=== PATIENT | female | born 1955 | race Caucasian/White ===

== ENCOUNTER → 2017-11-10 12:39 | Outpatient (CLI) | payer BC, SELFPAY ==
[2017-11-10 14:23] LABS: Absolute Lymphocyte Count 1.32 X10^3/ul (0.83-4.51); Absolute Neutrophil Count 3.7 X10^3/uL (2.0-7.7); Basophil# 0.03 X10^3/uL; Basophil% 0.5 % (0-1); Eosinophil# 0.12 X10^3/uL; Eosinophils% 2.1 % (0-5); Hematocrit 41.2 % (37-47); Hemoglobin 13.3 g/dl (12.0-15.0); Lymphocyte # 1.32 X10^3/ul (4.0); Lymphocyte % 22.8 % (19-41); Mean Corp Hgb Conc 32.3 g/gl (32-36); Mean Corpuscular Hgb 29.7 pg (27.0-32.0); Mean Platelet Vol. 9.1 fl (6.2-12.0); Monocyte# 0.59 X10^3/uL; Monocyte% 10.2 % (0-10); Neutrophil # 3.71 X10^3/uL (2.7-7.7); Neutrophil % 64.2 % (47-70); Platelet Count 261 K/mm3 (150-450); RBC Distribution Width CV 14.1 % (11.6-14.6); RBC Distribution Width SD 46.6 fl (35.1-43.9); Red Blood Count 4.48 M/mm3 (4.2-5.4); White Blood Count 5.8 K/mm3 (4.4-11.0)
[2017-11-10 14:24] LABS: POSITIVE COUNT NO; POSITIVE DIFFERENTIAL NO; POSITIVE MORPHOLOGY NO
[2017-11-10 14:50] LABS: ALB/GLOB Ratio 1.1 RATIO (0.9-2.4); AST(SGOT) 15 U/L (15-37); Alanine Aminotransfer ALT/SGPT 23 U/L (13-56); Alkaline Phosphatase 78 U/L (45-117); Anion Gap 7 (5-15); BUN 11 mg/dL (7-18); BUN/Creat Ratio 12.9 RATIO (10-20); Calcium,Total 8.6 mg/dL (8.5-10.1); Chloride 105 mmol/L (98-107); Creatinine, Serum 0.86 mg/dL (0.55-1.02); EST Glomerular Filtration Rate 71 mL/min (>60); Est Glom Filt Rate - Afr Amer 86 mL/min (>60); Globulin 3.6 g/dL (2.2-4.2); Glucose 90 mg/dL (74-106); Potassium 3.9 mmol/L (3.5-5.1); Protein, Total 7.6 g/dL (6.4-8.2); Sodium Level 141 mmol/L (136-145)
== END ==
PROVIDERS: Family Provider Internal Medicine; PCP Internal Medicine; Visit Provider Internal Medicine Rheumatology
DX: M06.4 Inflammatory polyarthropathy (principal); Z79.899 Other long term (current) drug therapy; M79.7 Fibromyalgia; M17.0 Bilateral primary osteoarthritis of knee; M47.897 Other spondylosis, lumbosacral region; M21.40 Flat foot [pes planus] (acquired), unspecified foot; E78.5 Hyperlipidemia, unspecified
CPT/HCPCS: 36415; 80053; 85025

== ENCOUNTER → 2018-02-01 12:59 | Outpatient (CLI) | payer BC, SELFPAY ==
[2018-02-01 14:25] LABS: Absolute Lymphocyte Count 1.65 X10^3/ul (0.83-4.51); Absolute Neutrophil Count 3.3 X10^3/uL (2.0-7.7); Basophil# 0.02 X10^3/uL; Basophil% 0.3 % (0-1); Eosinophil# 0.14 X10^3/uL; Eosinophils% 2.4 % (0-5); Hematocrit 40.4 % (37-47); Hemoglobin 13.5 g/dl (12.0-15.0); Lymphocyte # 1.65 X10^3/ul (4.0); Lymphocyte % 28.5 % (19-41); Mean Corp Hgb Conc 33.4 g/gl (32-36); Mean Corpuscular Hgb 30.5 pg (27.0-32.0); Mean Corpuscular Volume 91.4 fL (81-99); Mean Platelet Vol. 9.6 fl (6.2-12.0); Monocyte# 0.69 X10^3/uL; Monocyte% 11.9 % (0-10); Neutrophil # 3.28 X10^3/uL (2.7-7.7); Neutrophil % 56.7 % (47-70); Platelet Count 261 K/mm3 (150-450); RBC Distribution Width CV 13.1 % (11.6-14.6); Red Blood Count 4.42 M/mm3 (4.2-5.4); White Blood Count 5.8 K/mm3 (4.4-11.0)
[2018-02-01 14:30] LABS: POSITIVE COUNT NO; POSITIVE DIFFERENTIAL NO; POSITIVE MORPHOLOGY NO
[2018-02-01 14:35] LABS: AST(SGOT) 21 U/L (15-37); Alanine Aminotransfer ALT/SGPT 32 U/L (13-56); Albumin, Serum 3.8 g/dL (3.2-5.0); Alkaline Phosphatase 75 U/L (45-117); Anion Gap 8 (5-15); BUN 13 mg/dL (7-18); BUN/Creat Ratio 14.2 RATIO (10-20); Chloride 105 mmol/L (98-107); Creatinine, Serum 0.92 mg/dL (0.55-1.02); EST Glomerular Filtration Rate 66 mL/min (>60); Est Glom Filt Rate - Afr Amer 79 mL/min (>60); Globulin 3.7 g/dL (2.2-4.2); Glucose 96 mg/dL (74-106); Potassium 4.1 mmol/L (3.5-5.1); Protein, Total 7.5 g/dL (6.4-8.2); Sodium Level 141 mmol/L (136-145)
== END ==
PROVIDERS: Family Provider Internal Medicine; PCP Internal Medicine; Visit Provider Internal Medicine Rheumatology
DX: M06.4 Inflammatory polyarthropathy (principal); Z79.899 Other long term (current) drug therapy; M79.7 Fibromyalgia; M17.0 Bilateral primary osteoarthritis of knee; M47.897 Other spondylosis, lumbosacral region; M21.40 Flat foot [pes planus] (acquired), unspecified foot; E78.5 Hyperlipidemia, unspecified
CPT/HCPCS: 36415; 80053; 85025

== ENCOUNTER → 2018-04-18 11:43 | Outpatient (CLI) | payer BC, MEDICARE, SELFPAY ==
[2018-04-18 14:37] LABS: Absolute Lymphocyte Count 1.65 X10^3/ul (0.83-4.51); Basophil# 0.03 X10^3/uL; Basophil% 0.5 % (0-1); Eosinophil# 0.12 X10^3/uL; Eosinophils% 1.9 % (0-5); Hemoglobin 13.4 g/dl (12.0-15.0); Lymphocyte # 1.65 X10^3/ul (4.0); Lymphocyte % 25.5 % (19-41); Mean Corp Hgb Conc 31.9 g/gl (32-36); Mean Corpuscular Hgb 29.1 pg (27.0-32.0); Mean Corpuscular Volume 91.3 fL (81-99); Mean Platelet Vol. 9.5 fl (6.2-12.0); Monocyte# 0.72 X10^3/uL; Monocyte% 11.1 % (0-10); Neutrophil # 3.95 X10^3/uL (2.7-7.7); Neutrophil % 60.8 % (47-70); Platelet Count 233 K/mm3 (150-450); RBC Distribution Width CV 13.4 % (11.6-14.6); RBC Distribution Width SD 44.1 fl (35.1-43.9); White Blood Count 6.5 K/mm3 (4.4-11.0)
[2018-04-18 14:40] LABS: AST(SGOT) 16 U/L (15-37); Alanine Aminotransfer ALT/SGPT 24 U/L (13-56); Albumin, Serum 3.7 g/dL (3.2-5.0); Alkaline Phosphatase 71 U/L (45-117); Anion Gap 5 (5-15); BUN 11 mg/dL (7-18); BUN/Creat Ratio 11.9 RATIO (10-20); Chloride 106 mmol/L (98-107); Creatinine, Serum 0.93 mg/dL (0.55-1.02); EST Glomerular Filtration Rate 64 mL/min (>60); Est Glom Filt Rate - Afr Amer 78 mL/min (>60); Globulin 3.8 g/dL (2.2-4.2); Glucose 95 mg/dL (74-106); Potassium 3.7 mmol/L (3.5-5.1); Protein, Total 7.5 g/dL (6.4-8.2); Sodium Level 142 mmol/L (136-145)
[2018-04-18 14:48] LABS: POSITIVE COUNT NO; POSITIVE DIFFERENTIAL NO; POSITIVE MORPHOLOGY NO
== END ==
PROVIDERS: Family Provider Internal Medicine; PCP Internal Medicine; Visit Provider Internal Medicine Rheumatology
DX: M06.4 Inflammatory polyarthropathy (principal); Z79.899 Other long term (current) drug therapy; M79.7 Fibromyalgia; M17.0 Bilateral primary osteoarthritis of knee; M47.897 Other spondylosis, lumbosacral region; M21.40 Flat foot [pes planus] (acquired), unspecified foot; E78.5 Hyperlipidemia, unspecified
CPT/HCPCS: 36415; 80053; 85025

== ENCOUNTER → 2018-06-19 09:19 | Outpatient (CLI) | payer BC, MEDICARE, SELFPAY ==
--- NOTE | 2018-06-19 09:21 | BI_ITS ---
MAMMOGRAPHY - BILATERAL SCREENING REASON FOR EXAM: Female, 63 years old. Routine annual screening examination. PERTINENT HISTORY: Sisters with breast cancer. TECHNIQUE: Digital bilateral breast burak (3D mammographic acquisition) in the CC and MLO projections. 2-D mediolateral oblique (MLO) and craniocaudad (CC) views of both breasts were obtained. CAD: Full Field Digital Mammography with Computer Added Detection was performed. COMPARISON: Comparison is made with prior study dated May 12, 2015 and December 07, 2010. FINDINGS: Breast Composition: There are scattered areas of fibroglandular density. There are no dominant masses or suspicious calcifications. No other significant abnormalities are identified. There has been no significant change since the prior study. BI/SCREENING MAMM (CAD), BILAT IMPRESSION: Stable bilateral screening mammogram. Yearly follow-up mammogram recommended. (A) ASSESSMENT CATEGORY: BIRADS Category 1: Negative. A letter regarding these results will be sent to the patient by the facility within 30 days. Approximately 10% of breast cancers are not detected by mammography. A normal mammogram should not delay biopsy of a clinically suspicious abnormality. [id number] Electronically Signed: James Price MD at 11:23 EDT Tel [phone], Service support ,
--- NOTE | 2018-06-19 09:24 | BD_ITS ---
STUDY: DUAL ENERGY X-RAY ABSORPTIOMETRY / DXA REASON FOR EXAM: Female, 63 years old. The patient is postmenopausal. Prednisone use. TECHNIQUE: Bone Mineral Density (BMD) measurements of lumbar spine and bilateral hips were obtained. COMPARISON: Comparison is made with prior study dated May 12, 2015. FINDINGS: Lumbar Spine (L1-L4): g/cm2 (0.937) / T-score (-1.9) / Z-score (-0.4) Findings are suggestive of osteopenia with a moderate fracture risk. Left Femur Total: g/cm2 (0.618) / T-score (-3.1) / Z-score (-1.9) Left Femoral Neck: g/cm2 (0.499) / T-score (-3.9) / Z-score (-2.4) Right Femur Total: g/cm2 (0.653) / T-score (-2.8) / Z-score (-1.6) Right Femoral Neck: g/cm2 (0.497) / T-score (-3.9) / Z-score (-2.4) The T-Scores on the most recent prior examination were: Lumbar Spine (L1-L4): There has been improvement of bone density since the previous examination. Left Femur Total: which represents a worsening of 3.6%. Right Femur Total: which represents a worsening of 4.9%. BD/Dexa Bone Density Study IMPRESSION: The patient is considered osteoporotic as outlined below according to World Stevenson Organization (WHO) criteria with a high fracture risk. There has been worsening of bone density since the previous examination. Reference Information: The T-score is the number of standard deviations above or below the standard which is normal for young adults at their peak bone mineral density. The World Health Organization (WHO) interprets the T-scores as follows: Above -1 Normal bone density Between -1 and -2.5 Osteopenia Equal to / or below -2.5 Osteoporosis As a practical clinical guideline, osteopenia may be graded as follows: Mild -1 through -1.5 Moderate -1.6 through -2.0 Severe -2.1 through -2.4 The Z-score is the number of standard deviations above or below age-matched controls. A Z-score of less than -1.5 would be considered abnormal. References: 1. NIH Osteoporosis and Related Bone Diseases http://www.osteo.org 2. International Society for Clinical Densitometry http://www.iscd.org 3. National Osteoporosis Foundation http://www.nof.org Electronically Signed: James Price MD at 9:42 EDT Tel [phone], Service support ,
== END ==
PROVIDERS: Family Provider Internal Medicine; PCP Internal Medicine; Referring Provider Internal Medicine; Visit Provider Internal Medicine
DX: Z12.31 Encounter for screening mammogram for malignant neoplasm of breast (principal); Z78.0 Asymptomatic menopausal state
CPT/HCPCS: 77063; 77067; 77080

== ENCOUNTER → 2018-07-02 09:57 | Outpatient (CLI) | payer MEDICARE, SELFPAY ==
[2018-07-02 11:59] LABS: Absolute Neutrophil Count 3.2 X10^3/uL (2.0-7.7); Basophil# 0.03 X10^3/uL; Basophil% 0.5 % (0-1); Eosinophil# 0.16 X10^3/uL; Eosinophils% 2.8 % (0-5); Hematocrit 40.6 % (37-47); Hemoglobin 13.3 g/dl (12.0-15.0); Lymphocyte % 28.2 % (19-41); Mean Corp Hgb Conc 32.8 g/gl (32-36); Mean Corpuscular Hgb 29.7 pg (27.0-32.0); Mean Corpuscular Volume 90.6 fL (81-99); Mean Platelet Vol. 9.2 fl (6.2-12.0); Monocyte# 0.69 X10^3/uL; Monocyte% 12.2 % (0-10); Neutrophil # 3.17 X10^3/uL (2.7-7.7); Neutrophil % 55.9 % (47-70); Platelet Count 244 K/mm3 (150-450); RBC Distribution Width CV 13.8 % (11.6-14.6); RBC Distribution Width SD 44.5 fl (35.1-43.9); Red Blood Count 4.48 M/mm3 (4.2-5.4); White Blood Count 5.7 K/mm3 (4.4-11.0)
[2018-07-02 12:09] LABS: POSITIVE COUNT NO; POSITIVE DIFFERENTIAL NO; POSITIVE MORPHOLOGY NO
[2018-07-02 12:21] LABS: AST(SGOT) 17 U/L (15-37); Alanine Aminotransfer ALT/SGPT 40 U/L (13-56); Albumin, Serum 3.8 g/dL (3.2-5.0); Alkaline Phosphatase 71 U/L (45-117); Anion Gap 10 (5-15); BUN 15 mg/dL (7-18); BUN/Creat Ratio 15.4 RATIO (10-20); Calcium,Total 9.2 mg/dL (8.5-10.1); Chloride 105 mmol/L (98-107); Creatinine, Serum 0.98 mg/dL (0.55-1.02); EST Glomerular Filtration Rate 61 mL/min (>60); Est Glom Filt Rate - Afr Amer 73 mL/min (>60); Globulin 3.8 g/dL (2.2-4.2); Glucose 91 mg/dL (74-106); Potassium 3.6 mmol/L (3.5-5.1); Protein, Total 7.6 g/dL (6.4-8.2); Sodium Level 143 mmol/L (136-145)
== END ==
PROVIDERS: Family Provider Internal Medicine; PCP Internal Medicine; Referring Provider Internal Medicine Rheumatology; Visit Provider Internal Medicine Rheumatology
DX: M06.4 Inflammatory polyarthropathy (principal); Z79.899 Other long term (current) drug therapy; M79.7 Fibromyalgia; M17.0 Bilateral primary osteoarthritis of knee; M47.897 Other spondylosis, lumbosacral region; M21.40 Flat foot [pes planus] (acquired), unspecified foot; E78.5 Hyperlipidemia, unspecified
CPT/HCPCS: 36415; 80053; 85025

== ENCOUNTER → 2018-09-28 16:41 | Outpatient (CLI) | payer MEDICARE, SELFPAY ==
[2018-09-28 17:41] LABS: Absolute Lymphocyte Count 1.95 X10^3/ul (0.83-4.51); Absolute Neutrophil Count 3.2 X10^3/uL (2.0-7.7); Basophil# 0.03 X10^3/uL; Basophil% 0.5 % (0-1); Eosinophil# 0.13 X10^3/uL; Eosinophils% 2.2 % (0-5); Hematocrit 40.6 % (37-47); Hemoglobin 13.1 g/dl (12.0-15.0); Lymphocyte # 1.95 X10^3/ul (4.0); Lymphocyte % 32.3 % (19-41); Mean Corp Hgb Conc 32.3 g/gl (32-36); Mean Corpuscular Hgb 29.4 pg (27.0-32.0); Mean Platelet Vol. 9.4 fl (6.2-12.0); Monocyte# 0.75 X10^3/uL; Monocyte% 12.4 % (0-10); Neutrophil # 3.16 X10^3/uL (2.7-7.7); Neutrophil % 52.4 % (47-70); Platelet Count 224 K/mm3 (150-450); RBC Distribution Width CV 13.1 % (11.6-14.6); RBC Distribution Width SD 43.1 fl (35.1-43.9); Red Blood Count 4.46 M/mm3 (4.2-5.4)
[2018-09-28 17:46] LABS: POSITIVE COUNT NO; POSITIVE DIFFERENTIAL NO; POSITIVE MORPHOLOGY NO
[2018-09-28 18:05] LABS: ALB/GLOB Ratio 1.1 RATIO (0.9-2.4); AST(SGOT) 15 U/L (15-37); Alanine Aminotransfer ALT/SGPT 21 U/L (13-56); Albumin, Serum 3.8 g/dL (3.2-5.0); Alkaline Phosphatase 93 U/L (45-117); Anion Gap 6 (5-15); BUN 12 mg/dL (7-18); Chloride 105 mmol/L (98-107); Creatinine, Serum 0.92 mg/dL (0.55-1.02); EST Glomerular Filtration Rate 65 mL/min (>60); Est Glom Filt Rate - Afr Amer 78 mL/min (>60); Globulin 3.4 g/dL (2.2-4.2); Glucose 105 mg/dL (74-106); Potassium 3.6 mmol/L (3.5-5.1); Protein, Total 7.2 g/dL (6.4-8.2); Sodium Level 141 mmol/L (136-145)
== END ==
PROVIDERS: Family Provider Internal Medicine; PCP Internal Medicine; Referring Provider Internal Medicine Rheumatology; Visit Provider Internal Medicine Rheumatology
DX: M06.4 Inflammatory polyarthropathy (principal); Z79.899 Other long term (current) drug therapy; M79.7 Fibromyalgia; M17.0 Bilateral primary osteoarthritis of knee; M47.897 Other spondylosis, lumbosacral region; M21.40 Flat foot [pes planus] (acquired), unspecified foot; E78.5 Hyperlipidemia, unspecified
CPT/HCPCS: 36415; 80053; 85025

== ENCOUNTER → 2018-12-05 12:06 | Outpatient (CLI) | payer MEDICARE, SELFPAY ==
[2018-12-05 13:17] LABS: Absolute Lymphocyte Count 2.16 X10^3/ul (0.83-4.51); Absolute Neutrophil Count 2.9 X10^3/uL (2.0-7.7); Basophil# 0.03 X10^3/uL; Basophil% 0.5 % (0-1); Eosinophil# 0.23 X10^3/uL; Eosinophils% 3.7 % (0-5); Hematocrit 40.7 % (37-47); Hemoglobin 13.3 g/dl (12.0-15.0); Lymphocyte # 2.16 X10^3/ul (4.0); Mean Corp Hgb Conc 32.7 g/gl (32-36); Mean Corpuscular Hgb 29.4 pg (27.0-32.0); Mean Platelet Vol. 9.2 fl (6.2-12.0); Monocyte# 0.81 X10^3/uL; Monocyte% 13.1 % (0-10); Neutrophil # 2.93 X10^3/uL (2.7-7.7); Neutrophil % 47.5 % (47-70); POSITIVE COUNT NO; POSITIVE DIFFERENTIAL NO; POSITIVE MORPHOLOGY NO; Platelet Count 239 K/mm3 (150-450); RBC Distribution Width CV 13.1 % (11.6-14.6); Red Blood Count 4.52 M/mm3 (4.2-5.4); White Blood Count 6.2 K/mm3 (4.4-11.0)
[2018-12-05 13:47] LABS: ALB/GLOB Ratio 1.4 RATIO (0.9-2.4); AST(SGOT) 15 U/L (15-37); Alanine Aminotransfer ALT/SGPT 19 U/L (13-56); Albumin, Serum 4.2 g/dL (3.2-5.0); Alkaline Phosphatase 86 U/L (45-117); Anion Gap 3 (5-15); BUN 14 mg/dL (7-18); BUN/Creat Ratio 14.2 RATIO (10-20); Calcium,Total 8.9 mg/dL (8.5-10.1); Chloride 106 mmol/L (98-107); Creatinine, Serum 0.99 mg/dL (0.55-1.02); EST Glomerular Filtration Rate 60 mL/min (>60); Est Glom Filt Rate - Afr Amer 72 mL/min (>60); Globulin 3.1 g/dL (2.2-4.2); Glucose 83 mg/dL (74-106); Protein, Total 7.3 g/dL (6.4-8.2); Sodium Level 141 mmol/L (136-145)
== END ==
PROVIDERS: Family Provider Internal Medicine; PCP Internal Medicine; Referring Provider Internal Medicine Rheumatology; Visit Provider Internal Medicine Rheumatology
DX: M06.4 Inflammatory polyarthropathy (principal); M79.7 Fibromyalgia; M17.0 Bilateral primary osteoarthritis of knee; M47.897 Other spondylosis, lumbosacral region; M21.40 Flat foot [pes planus] (acquired), unspecified foot; E78.5 Hyperlipidemia, unspecified; Z79.899 Other long term (current) drug therapy
CPT/HCPCS: 36415; 80053; 85025

== ENCOUNTER → 2019-02-11 | Outpatient (CLI) | payer MEDICARE, SELFPAY ==
[2019-02-11 17:19] LABS: Absolute Lymphocyte Count 1.79 X10^3/ul (0.83-4.51); Basophil# 0.03 X10^3/uL; Basophil% 0.5 % (0-1); Eosinophil# 0.07 X10^3/uL; Eosinophils% 1.2 % (0-5); Hematocrit 40.7 % (37-47); Hemoglobin 13.4 g/dl (12.0-15.0); Lymphocyte # 1.79 X10^3/ul (4.0); Lymphocyte % 31.9 % (19-41); Mean Corp Hgb Conc 32.9 g/gl (32-36); Mean Corpuscular Hgb 29.1 pg (27.0-32.0); Mean Corpuscular Volume 88.5 fL (81-99); Mean Platelet Vol. 9.2 fl (6.2-12.0); Monocyte# 0.73 X10^3/uL; Neutrophil # 2.99 X10^3/uL (2.7-7.7); Neutrophil % 53.2 % (47-70); Platelet Count 243 K/mm3 (150-450); RBC Distribution Width CV 13.1 % (11.6-14.6); RBC Distribution Width SD 41.8 fl (35.1-43.9); White Blood Count 5.6 K/mm3 (4.4-11.0)
[2019-02-11 17:31] LABS: POSITIVE COUNT NO; POSITIVE DIFFERENTIAL NO; POSITIVE MORPHOLOGY NO
[2019-02-11 17:33] LABS: ALB/GLOB Ratio 1.1 RATIO (0.9-2.4); AST(SGOT) 18 U/L (15-37); Alanine Aminotransfer ALT/SGPT 25 U/L (13-56); Albumin, Serum 3.9 g/dL (3.2-5.0); Alkaline Phosphatase 81 U/L (45-117); Anion Gap 9 (5-15); BUN 17 mg/dL (7-18); BUN/Creat Ratio 17.7 RATIO (10-20); Calcium,Total 9.3 mg/dL (8.5-10.1); Chloride 104 mmol/L (98-107); Creatinine, Serum 0.96 mg/dL (0.55-1.02); EST Glomerular Filtration Rate 62 mL/min (>60); Est Glom Filt Rate - Afr Amer 75 mL/min (>60); Globulin 3.5 g/dL (2.2-4.2); Glucose 103 mg/dL (74-106); Potassium 4.1 mmol/L (3.5-5.1); Protein, Total 7.4 g/dL (6.4-8.2); Sodium Level 143 mmol/L (136-145)
== END | disposition home or self-care (01) ==
LOC: MTLAB 15:45
PROVIDERS: Family Provider Internal Medicine; PCP Internal Medicine; Referring Provider Internal Medicine Rheumatology; Visit Provider Internal Medicine Rheumatology
DX: M06.4 Inflammatory polyarthropathy (principal); Z79.899 Other long term (current) drug therapy; M79.7 Fibromyalgia; M17.0 Bilateral primary osteoarthritis of knee; M47.897 Other spondylosis, lumbosacral region; M21.40 Flat foot [pes planus] (acquired), unspecified foot; E78.5 Hyperlipidemia, unspecified
CPT/HCPCS: 36415; 80053; 85025

== ENCOUNTER → 2019-05-10 09:01 | Outpatient (CLI) | payer MEDICARE, SELFPAY ==
[2019-05-10 10:48] LABS: Absolute Lymphocyte Count 2.22 X10^3/uL (0.83-4.51); Absolute Neutrophil Count 3.6 X10^3/uL (2.0-7.7); Basophil# 0.03 X10^3/uL; Basophil% 0.4 % (0-1); Eosinophils% 2.9 % (0-5); Hemoglobin 13.2 g/dL (12.0-15.0); Lymphocyte # 2.22 X10^3/ul (4.0); Lymphocyte % 32.2 % (19-41); Mean Corp Hgb Conc 32.2 g/dL (32-36); Mean Corpuscular Hgb 29.5 pg (27.0-32.0); Mean Corpuscular Volume 91.7 fL (81-99); Mean Platelet Vol. 9.5 fl (6.2-12.0); Monocyte# 0.85 X10^3/uL; Monocyte% 12.3 % (0-10); NRBC Flagged by Analyzer 0 % (0-5); Neutrophil # 3.56 X10^3/uL (2.7-7.7); Neutrophil % 51.8 % (47-70); Platelet Count 249 K/mm3 (150-450); RBC Distribution Width CV 12.9 % (11.6-14.6); RBC Distribution Width SD 42.8 fl (35.1-43.9); Red Blood Count 4.47 M/mm3 (4.2-5.4); White Blood Count 6.9 K/mm3 (4.4-11.0)
[2019-05-10 11:05] LABS: AST(SGOT) 12 U/L (15-37); Alanine Aminotransfer ALT/SGPT 20 U/L (13-56); Albumin, Serum 3.6 g/dL (3.2-5.0); Alkaline Phosphatase 71 U/L (45-117); Anion Gap 6 (5-15); BUN 17 mg/dL (7-18); BUN/Creat Ratio 20.9 RATIO (10-20); Calcium,Total 8.7 mg/dL (8.5-10.1); Chloride 108 mmol/L (98-107); Creatinine, Serum 0.81 mg/dL (0.55-1.02); EST Glomerular Filtration Rate 75 mL/min (>60); Est Glom Filt Rate - Afr Amer 91 mL/min (>60); Globulin 3.5 g/dL (2.2-4.2); Glucose 95 mg/dL (74-106); Potassium 3.6 mmol/L (3.5-5.1); Protein, Total 7.1 g/dL (6.4-8.2); Sodium Level 144 mmol/L (136-145)
== END ==
PROVIDERS: Family Provider Internal Medicine; PCP Internal Medicine; Referring Provider Internal Medicine Rheumatology; Visit Provider Internal Medicine Rheumatology
DX: M06.4 Inflammatory polyarthropathy (principal); Z79.899 Other long term (current) drug therapy; M79.7 Fibromyalgia; M17.0 Bilateral primary osteoarthritis of knee; M47.897 Other spondylosis, lumbosacral region; M21.40 Flat foot [pes planus] (acquired), unspecified foot; E78.5 Hyperlipidemia, unspecified
CPT/HCPCS: 36415; 80053; 85025

== ENCOUNTER → 2019-09-06 11:35 | Outpatient (CLI) | payer MEDICARE, SELFPAY ==
[2019-09-06 13:46] LABS: Absolute Lymphocyte Count 1.81 X10^3/uL (0.83-4.51); Absolute Neutrophil Count 3.3 X10^3/uL (2.0-7.7); Basophil# 0.04 X10^3/uL; Basophil% 0.7 % (0-1); Eosinophils% 3.3 % (0-5); Hematocrit 40.9 % (37-47); Hemoglobin 13.2 g/dL (12.0-15.0); Lymphocyte # 1.81 X10^3/ul (4.0); Lymphocyte % 29.5 % (19-41); Mean Corp Hgb Conc 32.3 g/dL (32-36); Mean Corpuscular Hgb 29.1 pg (27.0-32.0); Mean Corpuscular Volume 90.1 fL (81-99); Mean Platelet Vol. 9.5 fl (6.2-12.0); NRBC Flagged by Analyzer 0 % (0-5); Neutrophil # 3.27 X10^3/uL (2.7-7.7); Neutrophil % 53.2 % (47-70); Platelet Count 257 K/mm3 (150-450); RBC Distribution Width CV 12.7 % (11.6-14.6); RBC Distribution Width SD 41.8 fl (35.1-43.9); Red Blood Count 4.54 M/mm3 (4.2-5.4); White Blood Count 6.1 K/mm3 (4.4-11.0)
[2019-09-06 13:57] LABS: ALB/GLOB Ratio 1.3 RATIO (0.9-2.4); AST(SGOT) 16 U/L (15-37); Alanine Aminotransfer ALT/SGPT 22 U/L (13-56); Albumin, Serum 4.1 g/dL (3.2-5.0); Alkaline Phosphatase 69 U/L (45-117); Anion Gap 4 (5-15); BUN 15 mg/dL (7-18); BUN/Creat Ratio 15.5 RATIO (10-20); Calcium,Total 8.8 mg/dL (8.5-10.1); Chloride 105 mmol/L (98-107); Creatinine, Serum 0.97 mg/dL (0.55-1.02); EST Glomerular Filtration Rate 61 mL/min (>60); Est Glom Filt Rate - Afr Amer 74 mL/min (>60); Globulin 3.2 g/dL (2.2-4.2); Glucose 99 mg/dL (74-106); Potassium 4.1 mmol/L (3.5-5.1); Protein, Total 7.3 g/dL (6.4-8.2); Sodium Level 140 mmol/L (136-145)
== END ==
PROVIDERS: Family Provider Internal Medicine; PCP Internal Medicine; Referring Provider Internal Medicine Rheumatology; Visit Provider Internal Medicine Rheumatology
DX: M06.4 Inflammatory polyarthropathy (principal); Z79.899 Other long term (current) drug therapy; M79.7 Fibromyalgia; M18.0 Bilateral primary osteoarthritis of first carpometacarpal joints; M17.0 Bilateral primary osteoarthritis of knee; M47.897 Other spondylosis, lumbosacral region; M21.40 Flat foot [pes planus] (acquired), unspecified foot; E78.5 Hyperlipidemia, unspecified
CPT/HCPCS: 36415; 80053; 85025

== ENCOUNTER → 2019-11-29 08:42 | Outpatient (CLI) | payer MEDICARE, SELFPAY ==
[2019-11-29 09:50] LABS: Absolute Lymphocyte Count 1.94 X10^3/uL (0.83-4.51); Absolute Neutrophil Count 2.6 X10^3/uL (2.0-7.7); Basophil# 0.05 X10^3/uL; Basophil% 0.9 % (0-1); Eosinophil# 0.15 X10^3/uL; Eosinophils% 2.7 % (0-5); Hematocrit 40.3 % (37-47); Hemoglobin 13.5 g/dL (12.0-15.0); Lymphocyte # 1.94 X10^3/ul (4.0); Lymphocyte % 34.7 % (19-41); Mean Corp Hgb Conc 33.5 g/dL (32-36); Mean Corpuscular Hgb 29.9 pg (27.0-32.0); Mean Corpuscular Volume 89.4 fL (81-99); Monocyte# 0.81 X10^3/uL; Monocyte% 14.5 % (0-10); NRBC Flagged by Analyzer 0 % (0-5); Neutrophil # 2.63 X10^3/uL (2.7-7.7); Platelet Count 228 K/mm3 (150-450); RBC Distribution Width CV 12.9 % (11.6-14.6); RBC Distribution Width SD 42.2 fl (35.1-43.9); Red Blood Count 4.51 M/mm3 (4.2-5.4); White Blood Count 5.6 K/mm3 (4.4-11.0)
[2019-11-29 10:13] LABS: ALB/GLOB Ratio 1.1 RATIO (0.9-2.4); AST(SGOT) 17 U/L (15-37); Alanine Aminotransfer ALT/SGPT 21 U/L (13-56); Albumin, Serum 3.9 g/dL (3.2-5.0); Alkaline Phosphatase 71 U/L (45-117); Anion Gap 8 (5-15); BUN 17 mg/dL (7-18); Calcium,Total 8.9 mg/dL (8.5-10.1); Chloride 103 mmol/L (98-107); Creatinine, Serum 0.77 mg/dL (0.55-1.02); EST Glomerular Filtration Rate 79 mL/min (>60); Est Glom Filt Rate - Afr Amer 96 mL/min (>60); Globulin 3.4 g/dL (2.2-4.2); Glucose 101 mg/dL (74-106); Potassium 3.7 mmol/L (3.5-5.1); Protein, Total 7.3 g/dL (6.4-8.2); Sodium Level 138 mmol/L (136-145)
== END ==
PROVIDERS: PCP Internal Medicine; Referring Provider Internal Medicine Rheumatology; Visit Provider Internal Medicine Rheumatology
DX: M06.4 Inflammatory polyarthropathy (principal); Z79.899 Other long term (current) drug therapy; M79.7 Fibromyalgia; M18.0 Bilateral primary osteoarthritis of first carpometacarpal joints; M17.0 Bilateral primary osteoarthritis of knee; M47.897 Other spondylosis, lumbosacral region; M21.40 Flat foot [pes planus] (acquired), unspecified foot; E78.5 Hyperlipidemia, unspecified
CPT/HCPCS: 36415; 80053; 85025

== ENCOUNTER → 2020-01-22 10:46 | Outpatient (CLI) | payer MEDICARE, SELFPAY ==
[2020-01-22 10:39] VITALS: BMI 37.7
--- NOTE | 2020-01-22 10:47 | RAD_ITS ---
STUDY: X-RAY - RIGHT KNEE REASON FOR EXAM: Female, 64 years old. Pain, stiffness TECHNIQUE: 4 view(s) of the knee. COMPARISON: 2017 FINDINGS: There is demineralization of the visualized distal femur. There is demineralization of the tibia and fibula. Normal proximal tibiofibular articulation. There is moderate degenerative arthrosis of the medial femorotibial compartment with moderate joint space narrowing. Normal lateral femorotibial compartment. There is severe degenerative arthrosis of the patellofemoral articulation. The soft tissue structures are unremarkable. RAD/Knee 4 or More Views IMPRESSION: Degenerative arthrosis, particularly in the posterior patellar joint space with degenerative spurs. No demonstrated fracture Electronically Signed: Eugenio Jones MD at 11:18 EDT , Service support ,
--- NOTE | 2020-01-22 10:47 | RAD_ITS ---
STUDY: X-RAY - LEFT KNEE REASON FOR EXAM: Female, 64 years old. Pain and stiffness TECHNIQUE: 4 view(s) of the knee. COMPARISON: 2013 FINDINGS: There is demineralization of the visualized distal femur. There is demineralization of the tibia and fibula. Normal proximal tibiofibular articulation. There is mild degenerative arthrosis of the medial femorotibial compartment. Normal lateral femorotibial compartment. There is severe degenerative arthrosis of the patellofemoral articulation. No demonstrated effusion, there are degenerative spurs present. The soft tissue structures are unremarkable. RAD/Knee 4 or More Views IMPRESSION: Degenerative arthrosis, particularly in the posterior patellar joint space with degenerative spurs. No demonstrated fracture or suspicious osseous lesion Electronically Signed: Eugenio Jones MD at 11:15 EDT , Service support ,
== END ==
PROVIDERS: PCP Internal Medicine; Referring Provider Orthopaedic Surgery; Visit Provider Orthopaedic Surgery
DX: M25.561 Pain in right knee (principal); M25.562 Pain in left knee
CPT/HCPCS: 73564

== ENCOUNTER → 2020-01-30 12:50 | Outpatient (CLI) | payer MEDICARE, SELFPAY ==
[2020-01-22 10:39] VITALS: BMI 37.7
--- NOTE | 2020-01-30 12:52 | CT_ITS ---
STUDY: CT SCAN LOWER EXTREMITY RIGHT REASON FOR EXAM: Female, 64 years old. Right knee osteoarthritis, stacie plasty planning protocol. Prior arthroscopy. RADIATION DOSAGE (If Supplied By Facility): CTDIvol = ( 30.71 ) mGy, DLP = ( 1799.49 ) mGycm. Individualized dose optimization techniques were used for this CT.? TECHNIQUE: Multiple axial tomographic images of the hip joint, knee joint and ankle joint were obtained. Coronal and sagittal reconstruction was obtained as well. COMPARISON: None. FINDINGS: The right hip joint is unremarkable. No significant abnormality is seen. Moderate degree of joint space narrowing involving the medial compartment of the knee joint as well as the patellofemoral joint. Degenerative spurring is seen in the medial and lateral femoral condyle as well as the proximal tibial plateaus. The patella is high riding. The ankle joint is unremarkable. Cystic changes are seen in the dome of the talus. CT/Extremity Lower without Contra IMPRESSION: Moderate degree of osteoarthritis involving the medial compartment of knee joint and the patellofemoral joint as described. High riding of the patella. Electronically Signed: James Price, at 14:53 EDT , Service support ,
== END ==
PROVIDERS: PCP Internal Medicine; Referring Provider Orthopaedic Surgery; Visit Provider Orthopaedic Surgery
DX: M17.0 Bilateral primary osteoarthritis of knee (principal)
CPT/HCPCS: 73700

== ENCOUNTER → 2020-02-18 14:18 | Outpatient (CLI) | payer MEDICARE, SELFPAY ==
[2020-02-14 12:42] VITALS: BMI 37.7
[2020-02-18 17:45] LABS: Absolute Lymphocyte Count 1.45 X10^3/uL (0.83-4.51); Absolute Neutrophil Count 5.6 X10^3/uL (2.0-7.7); Basophil# 0.05 X10^3/uL; Basophil% 0.6 % (0-1); Eosinophil# 0.37 X10^3/uL; Eosinophils% 4.6 % (0-5); Hemoglobin 12.2 g/dL (12.0-15.0); Lymphocyte # 1.45 X10^3/ul (4.0); Lymphocyte % 18.1 % (19-41); Mean Corp Hgb Conc 31.3 g/dL (32-36); Mean Corpuscular Hgb 30.1 pg (27.0-32.0); Mean Corpuscular Volume 96.3 fL (81-99); Mean Platelet Vol. 8.9 fl (6.2-12.0); Monocyte# 0.52 X10^3/uL; Monocyte% 6.5 % (0-10); NRBC Flagged by Analyzer 0 % (0-5); Neutrophil # 5.61 X10^3/uL (2.7-7.7); Neutrophil % 69.8 % (47-70); Platelet Count 340 K/mm3 (150-450); RBC Distribution Width CV 15.1 % (11.6-14.6); RBC Distribution Width SD 52.8 fl (35.1-43.9); Red Blood Count 4.05 M/mm3 (4.2-5.4)
[2020-02-18 18:12] LABS: ALB/GLOB Ratio 1.1 RATIO (0.9-2.4); AST(SGOT) 15 U/L (15-37); Alanine Aminotransfer ALT/SGPT 21 U/L (13-56); Alkaline Phosphatase 98 U/L (45-117); Anion Gap 8 (5-15); BUN 18 mg/dL (7-18); BUN/Creat Ratio 19.4 RATIO (10-20); Calcium,Total 9.2 mg/dL (8.5-10.1); Chloride 102 mmol/L (98-107); Creatinine, Serum 0.93 mg/dL (0.55-1.02); EST Glomerular Filtration Rate 64 mL/min (>60); Est Glom Filt Rate - Afr Amer 78 mL/min (>60); Globulin 3.6 g/dL (2.2-4.2); Glucose 117 mg/dL (74-106); Potassium 3.4 mmol/L (3.5-5.1); Protein, Total 7.6 g/dL (6.4-8.2); Sodium Level 138 mmol/L (136-145)
== END ==
PROVIDERS: PCP Internal Medicine; Referring Provider Internal Medicine Rheumatology; Visit Provider Internal Medicine Rheumatology
DX: M06.4 Inflammatory polyarthropathy (principal); Z79.899 Other long term (current) drug therapy; M79.7 Fibromyalgia; M18.0 Bilateral primary osteoarthritis of first carpometacarpal joints; M17.0 Bilateral primary osteoarthritis of knee; M47.897 Other spondylosis, lumbosacral region; M21.40 Flat foot [pes planus] (acquired), unspecified foot; E78.5 Hyperlipidemia, unspecified
CPT/HCPCS: 36415; 80053; 85025

== ENCOUNTER 2020-02-27 07:02 | Day surgery (SDC) | payer MEDICARE, SELFPAY ==
[2020-01-22 10:39] VITALS: BMI 37.7
[2020-02-14 12:42] VITALS: BMI 37.7
--- NOTE | 2020-02-19 10:03 | EKG12_ITS ---
Test Reason : PRE-OP Blood Pressure : / mmHG Vent. Rate : 064 BPM Atrial Rate : 064 BPM P-R Int : 148 ms QRS Dur : 100 ms QT Int : 390 ms P-R-T Axes : 065 -07 029 degrees QTc Int : 402 ms Normal sinus rhythm Voltage criteria for left ventricular hypertrophy Abnormal ECG Confirmed by BA ROSE, NIKOLAS ([id number]), school photograph editor DAYAN NG ([id number]) on 02/21/2020 10:52:27 AM Referred By: Negro Johnson Confirmed By:NIKOLAS COSEM MD
[2020-02-19 10:50] LABS: Absolute Lymphocyte Count 1.31 X10^3/uL (0.83-4.51); Absolute Neutrophil Count 4.5 X10^3/uL (2.0-7.7); Basophil# 0.03 X10^3/uL; Basophil% 0.5 % (0-1); Eosinophil# 0.01 X10^3/uL; Eosinophils% 0.2 % (0-5); Hematocrit 37.4 % (37-47); Hemoglobin 11.8 g/dL (12.0-15.0); Lymphocyte # 1.31 X10^3/ul (4.0); Lymphocyte % 20.2 % (19-41); Mean Corp Hgb Conc 31.6 g/dL (32-36); Mean Corpuscular Hgb 30.1 pg (27.0-32.0); Mean Corpuscular Volume 95.4 fL (81-99); Mean Platelet Vol. 8.7 fl (6.2-12.0); Monocyte# 0.62 X10^3/uL; Monocyte% 9.5 % (0-10); NRBC Flagged by Analyzer 0 % (0-5); Neutrophil # 4.49 X10^3/uL (2.7-7.7); Platelet Count 307 K/mm3 (150-450); RBC Distribution Width CV 15.3 % (11.6-14.6); RBC Distribution Width SD 53.1 fl (35.1-43.9); Red Blood Count 3.92 M/mm3 (4.2-5.4); White Blood Count 6.5 K/mm3 (4.4-11.0)
[2020-02-19 11:02] LABS: International Normalized Ratio 1.1; Prothrombin Time (Protime)PT. 13.3 SECONDS (11.7-14.9)
[2020-02-19 11:03] LABS: Partial Thromboplast Time 28.8 Seconds (24.1-36.2)
[2020-02-19 11:22] LABS: Anion Gap 6 (5-15); BUN 16 mg/dL (7-18); BUN/Creat Ratio 18.3 RATIO (10-20); Calcium,Total 9.3 mg/dL (8.5-10.1); Chloride 102 mmol/L (98-107); Creatinine, Serum 0.88 mg/dL (0.55-1.02); EST Glomerular Filtration Rate 69 mL/min (>60); Est Glom Filt Rate - Afr Amer 83 mL/min (>60); Glucose 102 mg/dL (74-106); Potassium 3.7 mmol/L (3.5-5.1); Sodium Level 138 mmol/L (136-145)
[2020-02-27] VITALS (15 sets, daily range): BP systolic 130–171; BP diastolic 61–87; PULSE 71–98; RESP 14–18; TEMP 36.1–37.2; O2SAT 94–100; BMI 36.8
[2020-02-27] MEDS: Lactated Ringers 1,000 ML 125 ML IV ×2 (07:00→14:45)
[2020-02-27 07:25] LABS: Bedside Glucose 95 mg/dL (70-110)
[2020-02-27] MEDS: Acetaminophen 500 MG Tablet 1000 MG PO ×2 (07:38→14:56)
[2020-02-27] MEDS: Gabapentin 600 MG Tablet PO (07:39)
[2020-02-27] MEDS: Celecoxib 200 MG Capsule 400 MG PO (07:40)
[2020-02-27 07:44] LABS: Magnesium 1.9 mg/dL (1.6-2.6)
[2020-02-27] MEDS: Scopolamine 1mg/72hr Patch 1 PATCH TRANSDERM. (07:45)
[2020-02-27] MEDS: Lactated Ringers 1,000 ML 100 ML IV (07:49)
[2020-02-27] MEDS: Cefazolin 2 GM in 0.9% Normal Saline 100 ML IV (09:48)
--- NOTE | 2020-02-27 09:56 | HP.PCM_ITS ---
History and Physical Date of Admission: 02/27/20 Intake Vital Signs 02/14/20 BMI 37.7 Intake Visit Reasons: right knee Allergies No Known Allergies Allergy (Verified 02/12/20 09:45) [facility] Social History (Updated 02/17/20 @ 13:16 by TONY Rendon) Smoking Status: Never smoker HPI right knee: Details: Parts of this documentation were recorded by a scribe, this documentation accurately reflects the service provided and the decisions made by me, TONY Rendon 02/14/20 [id number]. ORION CONNELL is a 64 year old F here today for Iovera treatment onto the right knee prior to her total knee arthroplasty. Ortho Exam Right Knee Skin/Wound: No erythema, No ecchymosis, No swelling Knee ROM: Yes ROM-Extension -20 to 0, No ROM-Flexion 0-140 Examination: Yes Med jt line tenderness, Yes Lat jt line tenderness, Yes Pain with flexion Quad Atrophy: No Popliteal Adenopathy: No KNEE: No Acute abnormalities on inspection. There are no skin changes and no evident effusion. Scarring noted as seen previously. Office Procedures Iovera Details:: Preoperative diagnosis : right knee pain Postoperative diagnosis: Same Procedure: Cryotherapy with Iovera device to anterior femoral cutaneous nerve and 2 branches of the infrapatellar saphenous nerve III nerves in total Description of procedure: Patient was brought back to the procedure room the operative extremity was identified by both patient and physician. The hip flexion crease was measured to the midpoint of the patella and this distance was divided in 3 resulting in 10 cm location proximal to the midpoint of the patella. This line was extended medial and lateral to the extent of the edges of the patella. This was our treatment line for the anterior femoral cutaneous nerve. A second treatment line was made 5 cm medial to the inferior pole of the patella and 5 cm distally. The leg was prepped with alcohol and Betadine. Lidocaine with epi was used along the treatment lines. Using the Iovera device treatment lines were treated with 1 minute cycles. Reproduction of paresthesias was monitored in the area of nerve distribution. Once all 3 nerves were treated across the 2 treatment lines patient was cleaned and a light dressing with 4 x 4 and Piotr wrap was applied. Patient tolerated the procedure without complication. Assessment & Plan Problems 1. Primary osteoarthritis of right knee M17.11 Plan Patient presented the office today for Iovera treatment of the right knee prior to total knee arthroplasty. At this time we did discuss the procedure in depth including the [id number] treatment as well as the goals of treatment. All of patient's questions were answered to her satisfaction. Consent was signed in office today. Procedure was then performed according to step by step approach noted in the procedural portion of the chart. Procedure was initially started with generalized alcohol soaked gauze cleanse of the extremity. Treatment lines were then marked. Betadine was then used to clean the skin followed by alcohol swab. Topical anesthesia was then applied. Betadine and alcohol swab was then again applied prior to treatment. Patient tolerated this procedure very well with having only minimal discomfort during topical anesthesia distribution. Patient can elevate and ice for the next day or 2. She is to monitor and notify of any erythema, warmth, discharge, or any signs of infection. This note was generated with Veeda dictation software. It may contain incorrect words, spelling, and punctuation that were not noted in checking the note before signing. Orders Orders: Iovera 02/14/20 M25.569 Coding Level of Care Code Attention Traffic Investigator Diagnoses Primary osteoarthritis of right knee M17.11 ??Osteoarthritis type: primary Comment Iovera Treatment (genicular nerve block) prior to total arthroplasty I have re-examined the patient. There are no clinical changes since date of exam Procedure Criteria COVID Risk Discussion: [In addition to standard risk risk of COVID-19 exposure and potential consequences including respiratory failure ventilation and patient wishes to assume this risk secondary to ongoing progressive worsening symptoms that are limiting activities of daily living.]
[2020-02-27] MEDS: dexAMETHasone 10 MG/ML Vial IV (10:05)
[2020-02-27] MEDS: Bupivacaine Mpf 0.5% 30 ML VIAL (10:20)
[2020-02-27] MEDS: Betamethasone/Betamethasone 30 MG/5 ML Vial (10:20)
[2020-02-27] MEDS: Cefazolin 1 GM/50 ML BAG IV (11:48)
--- NOTE | 2020-02-27 11:48 | RAD_ITS ---
STUDY: X-RAY - RIGHT KNEE REASON FOR EXAM: Female, 64 years old. POST OP KNEE REPLACEMENT TECHNIQUE: 2 view(s) of the knee. COMPARISON: 01/22/2020 FINDINGS: Patient is status post right knee replacement surgery. Components demonstrate anatomic alignment. No plain film evidence of postoperative complication. Normal postoperative soft tissue swelling and subcutaneous emphysema. RAD/Knee 1 or 2 Views IMPRESSION: Replaced right knee joint demonstrates anatomic alignment. No plain film evidence of postoperative complication Electronically Signed: Eugenio Jones MD at 13:05 EDT , Service support ,
[2020-02-27] MEDS: Lactated Ringers 1,000 ML 500 ML IV (11:50)
--- NOTE | 2020-02-27 11:55 | DCINST_ITS ---
Discharge Diet: No Restrictions Weight Bearing Status: Weight bearing as tolerated Call your doctor if you observe: Shortness of breath, Chest pain Additional Instructions: Ice and elevate one week while not ambulating. Ambulation is encouraged. Weightbearing as tolerated. Use assistive devise for stability. Encourage FULL knee extension and flexion 1 time EVERY time you get up and down and MULTIPLE times per day. No showering 72 hours after surgery. Begin showering postop day #3. Remove the dressing prior to shower and gently wash with warm water and antibacterial soap then pat dry and place abdominal pad (or plain gauze) and FLORENCE hose over top. This is to be done daily. Do not submerge for 3 weeks. If not showering daily after the initial 72 hours then you must clean incision and change dressing daily. Do not allow animals near the incision area. Keep clean. Follow anticoagulation recommendations as prescribed. Do not take any NSAIDs while on blood thinner. Do not take any additional narcotic pain medication other than what was perscribed on you surgery day without discussing with physician. Start physical therapy. If you are not currently scheduled for physical therapy or you are unsure of appointment time please call office JEWEL to arrange. Call Dr. Johnson with any concerns. Allergies/Adverse Reactions: Allergies No Known Allergies Allergy (Verified 02/27/20 07:19) Medications to take at Discharge Methotrexate 8 tab PO Q7D 11/01/14 Cholecalciferol (Vitamin D3) [Vitamin D3] 2 tab PO DAILY 02/12/20 Acetaminophen [Tylenol] 1,000 mg PO Q8 #100 tab 02/27/20 Apixaban [Eliquis] 2.5 mg PO BID #30 tab 02/27/20 Cephalexin [Keflex] 1,000 mg PO Q8 #4 cap 02/27/20 Oxycodone [Oxyir] 5 - 10 mg PO Q4H PRN PRN #60 tab 02/27/20 The following prescriptions were given: Apixaban [Eliquis] 2.5 mg PO BID #30 tab Transmission Status: Pending to [id number] Cephalexin [Keflex] 1,000 mg PO Q8 #4 cap Transmission Status: Pending to [id number] Oxycodone [Oxyir] 5 - 10 mg PO Q4H PRN PRN #60 tab PRN Reason: Pain Score 4-10/10 Transmission Status: Sent to [facility] Acetaminophen [Tylenol] 1,000 mg PO Q8 #100 tab Transmission Status: Sent to [facility] Primary Care Physician: Patt Joy DO [Primary Care Provider] - Test Results: Test results from this visit will be discussed in further detail at your follow- up appointment, if applicable. Please Follow Up With: Negro Johnson DO - 2 weeks
--- NOTE | 2020-02-27 14:34 | OP.PCM_ITS ---
Report of Operation Date of Procedure: 02/27/20 Description of Surgical Findings:: Preoperative diagnosis: Right knee DJD Postoperative diagnosis: Same Procedure: Right total knee arthroplasty CT guided Robotic Assisted Implant: William triathlon press fit femoral component size 1, press-fit tibial baseplate size 2, press fit asymmetric patella size 29 polyethylene X3 size 9 CS Anesthesia: Spinal with adductor canal block Tourniquet time: minutes at 300 mmHg Complications: None Condition: Stable to PACU Estimated blood loss: 125 cc Indication for procedure: This is a 64-year-old female with long standing degenerative joint disease of the knee who has failed conservative treatment and wished to proceed with elective total knee arthroplasty. Risk benefits and alternatives were reviewed including; risk of bleeding, infection, nerve artery and tissue damage, continued pain, postoperative stiffness, venous thromboembolism, need for postoperative rehabilitation, mechanical feel to the knee, and expected postoperative course. The operative CT and templating was performed with component sizing Procedure: The patient was met in the preoperative holding area. The operative extremity was identified by both patient and physician and was marked. Patient was met by anesthesia. An adductor canal block was placed by anesthesia postoperatively the patient was brought back to the operating room on a wheeled cart and transferred to the operating table in the supine position. Anesthesia was started. A well-padded tourniquet was placed on the operative extremity. The patient was prepped and draped in the usual sterile fashion. A timeout was called to ensure the proper patient procedure and extremity were being contemplated. An Esmarch was used to exsanguinate the extremity. The tourniquet was inflated. A 10 blade scalpel was used to make a midline incision down through the skin and subcutaneous tissue. Skin retractors placed. Bovie was used to perform meticulous hemostasis. full-thickness flaps were elevated medial and lateral along the joint capsule. A deep blade scalpel was used to perform a medial parapatellar arthrotomy. The knee was brought to full extension. A Bovie was used to release the soft tissues off the most proximal aspect of the medial tibial plateau a three-quarter inch curved osteotome was also used for this process. The infrapatellar fat pad was excised. The fat pad was excised partially anterior lateral portion the anterior medial was elevated from the femur. At this point our intra-articular femoral array was placed of a 45 degree angle proximal and posterior to the medial epicondyle. Our tibial array was placed greater than 1 hands breath below the incision at a 20 degree angle stab incisions were used for this case were attached and checked with the robotic software. Tourniquet was let down. At this point registration ortiz were taken throughout the knee as well as checkpoints placed in the femur and tibia once the knee was registered then tensioned the medial and lateral ligaments in extension and 90 degrees of flexion. We then used these numbers to adjust our components within parameters to balance the knee in both flexion and extension once this was done on our monitor we then proceeded with using the robotic arm to make our tibial plateau cut and anterior posterior and chamfer cuts on the femur we then trialed and achieved the desired plan with a well- balanced knee. Lug holes were drilled in the femur the tibia preparation was completed with a fin punch and the patella was prepared by first using a caliper to ensure sufficient bone stock and a patellar reamer to remove the desired amount of bone locals were drilled for an asymmetric poly-. We then brought the knee through range of motion with excellent patellar tracking. We thoroughly irrigated the knee with a trial components were removed a posterior capsular injection with her standard cocktail was performed the aqua Mantis was also used to aid in hemostasis. Betadine rinse was allowed to sit and washed out components were press-fit into place. Aricept rinse was then used followed by several more rate liters of irrigation after it was allowed to sit. Joint capsule was closed with #1 Ethibond aeropo-cu-oeqmp's followed by Vicryl in the subcutaneous tissues staple in the skin arrays and checkpoints were removed prior to closure all counts were correct stab incisions were closed with a stable standard dressing in the form of Mepilex for the main incision Xeroform 4 x 4 and Tegaderm over pin site holes. Thigh-high FLORENCE hose applied over top of dressing. Patient tolerated the procedure well and was directed to PACU in stable condition no intraoperative complications
== END 2020-02-27 18:35 | disposition home or self-care (01) ==
LOC: SDC 07:03 → AC 07:03
PROVIDERS: Anesthesiology; PCP Internal Medicine; Referring Provider Orthopaedic Surgery; Visit Provider Orthopaedic Surgery
PROC: 0SRC0JZ Replacement of Right Knee Joint with Synthetic Substitute, Open Approach (ICD-10-PCS; CPT 27447; principal; 2020-02-27 09:40)
DX: M17.11 Unilateral primary osteoarthritis, right knee (principal); Z11.59 Encounter for screening for other viral diseases; Z87.442 Personal history of urinary calculi; Z79.899 Other long term (current) drug therapy
CPT/HCPCS: 01402; 27447; 36415; 73560; 80048; 82962; 83735; 85025; 85610; 85730; 86850; 86900; 86901; 87081; 87635; 93005; 97161; C1776; G2023; J7120; J0702; J2405; J3475; U0003

== ENCOUNTER → 2020-03-09 10:36 | Outpatient (CLI) | payer MEDICARE, SELFPAY ==
[2020-03-09 10:31] VITALS: BMI 36.8
--- NOTE | 2020-03-09 10:37 | RAD_ITS ---
STUDY: X-RAY - RIGHT KNEE REASON FOR EXAM: Female, 65 years old. POST OP TECHNIQUE: 4 view(s) of the knee. COMPARISON: 02/27/2020 FINDINGS: Total knee arthroplasty with normal alignment. Postoperative changes in the soft tissues. No acute fractures are seen. RAD/Knee 4 or More Views IMPRESSION: Total knee arthroplasty with normal alignment. Electronically Signed: Mega Huston MD at 21:45 EDT Tel , Service support ,
== END ==
PROVIDERS: PCP Internal Medicine; Referring Provider Orthopaedic Surgery; Visit Provider Orthopaedic Surgery
DX: M25.561 Pain in right knee (principal)
CPT/HCPCS: 73564

== ENCOUNTER 2020-03-18 17:00 | Outpatient (RCR) | payer MEDICARE, SELFPAY ==
[2020-01-22 10:39] VITALS: BMI 37.7
[2020-02-27 07:27] VITALS: BMI 36.8
--- NOTE | 2020-02-28 14:03 | HP.PTEVAL_ITS ---
Patient's Visit Information ORION CONNELL is a 64 year old F referred to Physical Therapy by Dr. Negro Johnson DO with a diagnosis of R TKR (MIKE) 02/27/2020. Date of Evaluation: 02/28/20 Physical Therapist: MARV Horn - Visit Plan Frequency: 3x /Week Duration: 2 Months Plan: 2-3X/ week for 6 weeks for R knee AROM, PROM, AAROM, R knee and hip strengthening, functional activities, gait training, with HEP and ice as needed. - Subjective Pt reports that she had her R TKR done yesterday 02/27/2020. She has a one floor home and with 1 step with no railing. She is able to get inside with help with hiusband and son. She slept on a recliner last night. No pain in her calf but pain in the thigh, lateral leg and some burning across the knee. She is on blood thinners. She took her pain meds today. She has done some ankle pumps, QS, a few heel slides. Front wheeled walker and was walking with a walker a little before surgery due to B knees and back pain. - Pain R knee pain Pain Intensity (Out of 10): 4 - Objective Gait: walks with front wheeled walker with slightly decrease stride length and decrease stance time on the L LE. Good heel to toe pattern. not a whole lot of knee flexion on the R with gait. R knee AROM: -2 degrees from full extension and 80 degrees R knee flexion. L knee AROM: 0 degrees ext and 125 degrees L knee flexion. Girth measurements: R tib tub 42.4, infrapatellar 45.3, suprapatellar 49.9. L tib tub 37.9, 41.5, 43.5. small about of quad contraction with QS. SLR 2 X 10 wtih AA help from therapist at times. Pt needs B UE to be able to get out of a chair sit to stand. Pt needs mod A to go from supine to sit for trunk and for R LE. Nu-step L1 X 5 min to increase ROM and increase circulation - Goals Goal 1:: I HEP Goal Time Frame: 6-8 Weeks Goal 2:: Be able to go up and down 1 flight of stairs recip with 1 hand rail Goal Time Frame: 6-8 Weeks Goal 3:: Increase R knee AROM 0-120 degrees R knee fleixon Goal Time Frame: 6-8 Weeks Goal 4:: Be able to walk with normal gait mechanics with normal stride and equal stance time with no AD Goal Time Frame: 6-8 Weeks Goal 5:: Increase R LE strength to 4/5 L knee flex/ext and L hip flex/abd and extension Goal Time Frame: 6-8 Weeks Goal 6:: Be able to sit to stand with no UE support Goal Time Frame: 6-8 Weeks - Rehabilitation Potential Rehabilitation Potential: Good - Anticipated Interventions Patient/Client Instruction: Educate patient on: Condition, Plan of Care For the Purpose of:: To decrease pain, To decrease swelling/inflammation, To increase ROM, To improve nutrient delivery to tissue, To improve muscle performance and motor function, To improve ability to perform ADL's, To increase tolerance to activity/condition/position, To improve performance and independence with ADL's, To decrease level of supervision to perform tasks, To improve ability of physical actions for home/community/work/leisure, To improve gait and locomotor functions, To improve health of tissue, To decrease soft tissue restriction, To increase flexibility/ROM Therapeutic Exercise to Include: Strength training, Flexibilty training, Gait and locomotor training, Passive ROM, Active ROM For the Purpose of:: To decrease pain, To decrease swelling/inflammation, To increase ROM, To improve nutrient delivery to tissue, To improve muscle performance and motor function, To improve ability to perform ADL's, To increase tolerance to activity/condition/position, To improve performance and indep endence with ADL's, To decrease level of supervision to perform tasks, To improve ability of physical actions for home/community/work/leisure, To improve gait and locomotor functions, To improve health of tissue, To decrease soft tissue restriction, To increase flexibility/ROM Functional Training to Include: Gait training For the Purpose of:: To improve gait and locomotor functions Manual Therapy Techniques to Include: Mobilization, Passive ROM For the Purpose of:: To increase ROM, To improve nutrient delivery to tissue Cryotherapy (ice pack, ice massage): Yes For the Purpose of:: To decrease pain, To decrease swelling/inflammation Thank you for the opportunity to evaluate your patient. For Medicare and Medicare HMO plans, please review the plan of care and approve it. It will need to be FAXED BACK to us at [phone] for Medicare purposes. For Medicare only, by signing this I certify the plan of care. Please let me know if there are questions or concerns regarding this plan of care. Physician Signat ure: Date:
--- NOTE | 2020-05-22 15:11 | HP.PT.NRP ---
ORION CONNELL was seen in my office for initial evaluation on 02/28/20. The following Plan of Care was established for this patient: Initial Frequency: 3x /Week Initial Duration: 2 Months Patient/Client Instruction: Educate patient on: Condition, Plan of Care For the Purpose of:: To decrease pain, To decrease swelling/inflammation, To increase ROM, To improve nutrient delivery to tissue, To improve muscle performance and motor function, To improve ability to perform ADL's, To increase tolerance to activity/condition/position, To improve performance and independence with ADL's, To decrease level of supervision to perform tasks, To improve ability of physical actions for home/community/work/leisure, To improve gait and locomotor functions, To improve health of tissue, To decrease soft tissue restriction, To increase flexibility/ROM Therapeutic Exercise to Include: Strength training, Flexibilty training, Gait and locomotor training, Passive ROM, Active ROM For the Purpose of:: To decrease pain, To decrease swelling/inflammation, To increase ROM, To improve nutrient delivery to tissue, To improve muscle performance and motor function, To improve ability to perform ADL's, To increase tolerance to activity/condition/position, To improve performance and independence with ADL's, To decrease level of supervision to perform tasks, To improve ability of physical actions for home/community/work/leisure, To improve gait and locomotor functions, To improve health of tissue, To decrease soft tissue restriction, To increase flexibility/ROM Functional Training to Include: Gait training For the Purpose of:: To improve gait and locomotor functions Manual Therapy Techniques to Include: Mobilization, Passive ROM For the Purpose of:: To increase ROM, To improve nutrient delivery to tissue Cryotherapy (ice pack, ice massage): Yes For the Purpose of:: To decrease pain, To decrease swelling/inflammation This patient was last seen in our office 03/30/20. Pertinent comments regarding their Physical therapy will appear below: DC PT At this point I will be discontinuing this patient from physical therapy. I would be happy to see this patient again in the future if found appropriate by the physician. Thank you! Kimberli Vergara, MPT
== END 2020-03-18 19:00 | disposition home or self-care (01) ==
LOC: PT 17:00
PROVIDERS: PCP Internal Medicine; Referring Provider Orthopaedic Surgery; Visit Provider Orthopaedic Surgery
DX: Z47.1 Aftercare following joint replacement surgery (principal); Z96.651 Presence of right artificial knee joint
CPT/HCPCS: 97110; 97161

== ENCOUNTER 2020-03-22 09:46 | Emergency (ER) | payer MEDICARE, SELFPAY ==
[2020-03-13 07:51] VITALS: BMI 36.8
[2020-03-22 09:50] VITALS: BP 131/69; PULSE 90; RESP 18; TEMP 36.7; O2SAT 98; BMI 35.3
[2020-03-22 09:52] VITALS: BP 131/69; PULSE 90; RESP 18; TEMP 36.7; O2SAT 98
--- NOTE | 2020-03-22 10:23 | CT_ITS ---
STUDY: CT ABDOMEN AND PELVIS WITH CONTRAST REASON FOR EXAM: Female, 65 years old. PT STATES KIDNEY INFECTION, LBP, RECENT KNEE SURG, DIARRHEA FROM PAIN MEDS, MANPREET, HYSTER RADIATION DOSAGE (If Supplied By Facility): CTDIvol = ( 15.86 ) mGy, DLP = ( 898.8 ) mGycm TECHNIQUE: Transaxial images were obtained from the dome of the diaphragm to the symphysis pubis without oral contrast. IV 100mL Isovue-370 was administered. Sagittal and coronal images were reconstructed. Individualized dose optimization techniques were used for this CT. COMPARISON: November 01, 2014. FINDINGS: The visualized lung bases are unremarkable. The visualized portions of the heart are within normal limits. Hypodensities with small cysts in the liver. There are surgical clips in the gallbladder fossa consistent with a prior cholecystectomy. Normal spleen. Normal pancreas. Normal bilateral adrenal glands. Normal right kidney. There are parapelvic cysts of the left kidney. Normal visualized stomach. Normal small intestine. There are multiple colonic diverticula consistent with diverticulosis. There is non-visualization of the appendix. There is diffuse atherosclerotic calcification of the abdominal aorta, without a demonstrated aneurysm. Normal inferior vena cava. Normal retroperitoneum. Normal urinary bladder. There is absence of the uterus consistent with a prior hysterectomy. There is no free fluid in the abdomen or pelvis. Normal abdominal wall. Degenerative change of the spine. Compression fractures of T12, L2, L4, and L5. CT/Abdomen/Pelvis WITH Contrast IMPRESSION: Colonic diverticulosis. No obstruction. No hydronephrosis. Postoperative change. Electronically Signed: Ramu Thakur MD at 11:43 EDT , Service support ,
[2020-03-22 10:49] LABS: Absolute Lymphocyte Count 1.19 X10^3/uL (0.83-4.51); Absolute Neutrophil Count 4.6 X10^3/uL (2.0-7.7); Basophil# 0.02 X10^3/uL; Basophil% 0.3 % (0-1); Hematocrit 36.2 % (37-47); Hemoglobin 11.7 g/dL (12.0-15.0); Lymphocyte # 1.19 X10^3/ul (4.0); Lymphocyte % 18.4 % (19-41); Mean Corp Hgb Conc 32.3 g/dL (32-36); Mean Corpuscular Hgb 30.7 pg (27.0-32.0); Mean Platelet Vol. 8.5 fl (6.2-12.0); Monocyte# 0.69 X10^3/uL; Monocyte% 10.7 % (0-10); NRBC Flagged by Analyzer 0 % (0-5); Neutrophil # 4.55 X10^3/uL (2.7-7.7); Neutrophil % 70.3 % (47-70); Platelet Count 327 K/mm3 (150-450); RBC Distribution Width SD 52.9 fl (35.1-43.9); Red Blood Count 3.81 M/mm3 (4.2-5.4); White Blood Count 6.5 K/mm3 (4.4-11.0)
[2020-03-22 10:52] VITALS: BP 142/62; PULSE 74; RESP 18; TEMP 36.5; O2SAT 98
[2020-03-22] MEDS: Ondansetron 4 MG/2 ML Vial IV (10:53)
[2020-03-22] MEDS: Morphine 4 MG/ML Syringe IV (10:56)
[2020-03-22] MEDS: diazePAM 2 MG Tablet 4 MG PO (10:59)
--- NOTE | 2020-03-22 10:59 | ED.VISSUMM ---
- ER Visit Summary Date of Service: 03/22/20 Chief Complaint: [Back pain] History of Present Illness: The patient is a 65 F [presents the emergency department complaint of back pain for about a week. Patient describes pain in her lower back. She is had no trauma. Patient states that she had a right knee replacement 3 weeks ago and has been walking with a walker. She denies any pain rating down her legs. She denies change in bowel or bladder function. She denies weakness in extremities. Patient had been on Eliquis for 2 weeks but finished it about a week ago. She denies any chest pain or shortness of breath. She states the pain is definitely worse with movement. She denies any dysuria although she has had some frequency yesterday that she attributed to drinking water. She is not had any fevers or recent illness.] Physical Examination: [HEENT-PERRLA, EOMI. Cranial nerves II through XII grossly intact. TMs clear. Mucous membranes moist. No adenopathy. Cardiovascular-regular rate and rhythm without murmur or ectopy Lungs-clear to auscultation, chest wall stable without crepitus or subcu emphysema Abdomen-normoactive bowel sounds, soft. Patient has some mild diffuse tenderness over the lower abdomen. There is no rebound, rigidity, or peritoneal signs. Back exam-patient has no real tenderness on exam of her back. She is not tender over the paraspinal musculatures or the lumbar or thoracic spine. She has negative straight leg raises. Deep tendon reflexes are plus 2 out of 4 bilaterally at the patella and Achilles. Patient has normal 5 extension bilaterally. Patient has normal sensation to light touch. Extremities-intact ?4, normal range of motion, normal pulses, atraumatic] Test Results: [CBC with differential was normal. Chemistries unremarkable. Urinalysis was normal. CT scan of the abdomen pelvis with IV contrast obtained was read by radiology as diverticulosis and degenerative changes of the spine with compression fractures at T12, L2, L4, and L5. Patient does have history of prior back injury that required her to be in a brace for 3 months. I do not feel her fractures are new as she is had no recent injury or trauma.] Emergency Department Course and Treatment: [She received morphine and Valium in the emergency department. She did feel improved.] Treatment Plan: [Patient to continue with her oxycodone as she did receive a prescription of 56 tablets recently. Patient will be given a prescription for Valium. I suspect her pain is likely muscular from compensating for her recent right knee surgery and walking with a walker.] Disposition: [Discharged home in stable condition.] Impression: [Lumbar strain] This note was generated with [employer] dictation software. It may contain incorrect words, spelling, and punctuation that were not noted in review of the chart prior to signing ED Disposition - Plan for ED Patient: Referrals: Patt Joy DO [Primary Care Provider] -
[2020-03-22 11:00] LABS: Color, Urine Yellow (Yellow); Glucose, Dipstick Normal (Normal); Ketone-Dipstick 5 mg/dl (Negative); Leukocyte Esterase-Dipstick 25 /ul (Negative); Nitrite-Dipstick Negative (Negative); Occult Blood-Urine 150 /ul (Negative); Protein-Dipstick 15 mg/dl (Negative); Urine Bilirubin Dipstick Negative (Negative); Urine Clarity Sl. Cloudy (Clear); Urine Urobilinogen Normal (Normal)
[2020-03-22 11:01] LABS: Anion Gap 8 (5-15); BUN 14 mg/dL (7-18); BUN/Creat Ratio 19.8 RATIO (10-20); Calcium,Total 9.4 mg/dL (8.5-10.1); Chloride 103 mmol/L (98-107); Creatinine, Serum 0.71 mg/dL (0.55-1.02); EST Glomerular Filtration Rate 88 mL/min (>60); Est Glom Filt Rate - Afr Amer 106 mL/min (>60); Estimated Creatinine Clearance 68.41 ml/min; Glucose 117 mg/dL (74-106); Potassium 3.3 mmol/L (3.5-5.1); Sodium Level 139 mmol/L (136-145)
[2020-03-22 11:06] LABS: Bacteria 1+ /hpf (None Seen); Mucous, Urine 1+ /hpf (<or=2+); Red Blood Cells-Urine 0-5 SEEN /hpf (0-5); Squamous Epithelial Cells - UA 0-5 SEEN /hpf (5-10); White Blood Cells 0-5 SEEN /hpf (0-5)
--- NOTE | 2020-03-22 11:58 | ED.DEP ---
ED Disposition - Plan for ED Patient: Instructions: ED Spasm Back No Trauma, ED LUMBAR SPRAIN/STRAIN Prescriptions: Diazepam [Valium] 2 mg PO TID PRN PRN #20 tablet PRN Reason: Vertigo Transmission Status: Received by [id number] Referrals: Patt Joy DO [Primary Care Provider] - 3-5 Days
[2020-03-22 12:00] VITALS: BP 140/71; PULSE 77; RESP 16; O2SAT 98
== END 2020-03-22 12:29 | disposition home or self-care (01) ==
LOC: ED 12:04
PROVIDERS: Emergency Provider Emergency Medicine; PCP Internal Medicine
DX: S39.012A Strain of muscle, fascia and tendon of lower back, initial encounter (principal); X58.XXXA Exposure to other specified factors, initial encounter; Y93.9 Activity, unspecified; Y92.9 Unspecified place or not applicable; Y99.9 Unspecified external cause status; Z79.899 Other long term (current) drug therapy; Z96.651 Presence of right artificial knee joint
CPT/HCPCS: 74177; 80048; 81001; 85025; 96374; 96375; 99284; Q9967; A4216; J2405

== ENCOUNTER → 2020-06-09 10:02 | Outpatient (CLI) | payer MEDICARE, SELFPAY ==
[2020-04-13 07:51] VITALS: BMI 35.3
[2020-06-09 12:20] LABS: Absolute Lymphocyte Count 1.45 X10^3/uL (0.83-4.51); Absolute Neutrophil Count 2.2 X10^3/uL (2.0-7.7); Basophil# 0.03 X10^3/uL; Basophil% 0.7 % (0-1); Eosinophils% 2.4 % (0-5); Hematocrit 40.9 % (37-47); Hemoglobin 12.8 g/dL (12.0-15.0); Lymphocyte # 1.45 X10^3/ul (4.0); Lymphocyte % 34.1 % (19-41); Mean Corp Hgb Conc 31.3 g/dL (32-36); Mean Corpuscular Hgb 29.8 pg (27.0-32.0); Mean Corpuscular Volume 95.1 fL (81-99); Mean Platelet Vol. 8.9 fl (6.2-12.0); Monocyte# 0.51 X10^3/uL; NRBC Flagged by Analyzer 0 % (0-5); Neutrophil # 2.15 X10^3/uL (2.7-7.7); Neutrophil % 50.6 % (47-70); Platelet Count 283 K/mm3 (150-450); RBC Distribution Width CV 13.6 % (11.6-14.6); RBC Distribution Width SD 47.4 fl (35.1-43.9); White Blood Count 4.3 K/mm3 (4.4-11.0)
[2020-06-09 12:59] LABS: ALB/GLOB Ratio 1.2 RATIO (0.9-2.4); AST(SGOT) 17 U/L (15-37); Alanine Aminotransfer ALT/SGPT 20 U/L (13-56); Albumin, Serum 4.2 g/dL (3.2-5.0); Alkaline Phosphatase 96 U/L (45-117); Anion Gap 6 (5-15); BUN 17 mg/dL (7-18); Calcium,Total 9.1 mg/dL (8.5-10.1); Chloride 105 mmol/L (98-107); Creatinine, Serum 0.89 mg/dL (0.55-1.02); EST Glomerular Filtration Rate 67 mL/min (>60); Est Glom Filt Rate - Afr Amer 81 mL/min (>60); Globulin 3.4 g/dL (2.2-4.2); Glucose 105 mg/dL (74-106); Potassium 3.5 mmol/L (3.5-5.1); Protein, Total 7.6 g/dL (6.4-8.2); Sodium Level 140 mmol/L (136-145)
== END ==
LOC: LAB.FUTURE 10:04 → MTLAB 10:08
PROVIDERS: PCP Internal Medicine; Referring Provider Internal Medicine Rheumatology; Visit Provider Internal Medicine Rheumatology
DX: M06.4 Inflammatory polyarthropathy (principal); Z79.899 Other long term (current) drug therapy; M79.7 Fibromyalgia; M18.0 Bilateral primary osteoarthritis of first carpometacarpal joints; M17.0 Bilateral primary osteoarthritis of knee; M47.897 Other spondylosis, lumbosacral region; M21.40 Flat foot [pes planus] (acquired), unspecified foot; E78.5 Hyperlipidemia, unspecified
CPT/HCPCS: 36415; 80053; 85025

== ENCOUNTER 2020-07-12 09:39 | Emergency (ER) | payer MEDICARE, SELFPAY ==
[2020-04-13 07:51] VITALS: BMI 35.3
[2020-07-12 09:40] VITALS: BP 144/79; PULSE 110; RESP 20; TEMP 36.6; O2SAT 99; BMI 34.5
--- NOTE | 2020-07-12 10:04 | ED.DCSUM_ITS ---
History of Present Illness Informant: Patient Onset: Yesterday Context: Gradual Onset Timing: Continuous Quality: sharp Location: right ear Current Severity: Severe Maximum Severity: Severe Worsened by: movement Relieved by: nothing Associated Symptoms: denies Narrative: 65-year-old female presents with right ear pain. She has cochlear implants. She was trying to clean earwax out of her ears. Yesterday she poured peroxide in her ears and then used of a hairpin to clean out her ear and she woke up this morning with severe right ear pain. No drainage or fevers. No tinnitus. No headache or neck pain. She is not lightheaded or dizzy. Rest of review of systems are negative. She did not do the same to the left ear Prior similar symptoms: No Recent Illness/Hospitalization: No <Phill Vasquez - Last Filed: 07/12/20 10:14> <Ramu Romero - Last Filed: 07/12/20 10:28> Chief Complaint: Ear Problem Past Medical History Prior records reviewed: Yes Past Medical History: - - Cochlear implants Surgical History: noncontributory Smoking Status: Never smoker <Phill Vasquez - Last Filed: 07/12/20 10:14> <Ramu Romero - Last Filed: 07/12/20 10:28> - Allergies and Home Meds Allergies/Adverse Reactions: Allergies No Known Allergies Allergy (Verified 07/12/20 09:43) Primary Care Physician: Oliver France MD [STAFF PHYSICIAN] - As soon as possible Patt Joy DO [Primary Care Provider] - Review of Systems All systems negative except as indicated General: Denies: Chills, Fever, Sweats Eyes: Denies: Visual changes - bilaterally, Diplopia ENT: Reports: Right ear pain. Denies: Rhinorrhea, Sore throat Cardiovascular: Denies: Chest pain, Palpitations Respiratory: Denies: Dyspnea, Cough, Dyspnea on exertion Gastrointestinal: Denies: Abdominal pain, Nausea, Vomiting, Diarrhea, Melena, Hematochezia Genitourinary: Denies: Dysuria, Hematuria, Frequency Musculoskeletal: Denies: Back pain, Extremity Pain Skin: Denies: Rash, Wounds Neurological: Denies: Headache, Weakness, Numbness <Phill Vasquez - Last Filed: 07/12/20 10:14> Physical Exam Vital Signs/Narrative: Vital Signs Temp Pulse Resp BP Pulse Ox 07/12/20 09:40 97.8 F 110 H 20 H 144/79 H 99 Inital Vital Signs reviewed: Yes General: Well nourished, Well developed, No Acute Distress Head: Normocephalic, Atraumatic Eyes: Perrl, EOMI ENT: Moist mucous membranes, No rhinorrhea, - - Patient has a right otitis externa it is swollen it is erythematous there is purulent drainage. She does have pain with movement of the tragus. No mastoid tenderness or redness. Normal tympanic membrane. Normal left ear normal left ear canal normal left tympanic membrane Neck: Supple, Nontender Cardiovascular: Regular rate, Regular rhythm, No murmurs Respiratory: No distress, CTA bilaterally, Chest nontender Abdomen: Soft, Nontender, Nondistended, Normal bowel sounds Back: Nontender, Normal Inspection Extremities: Nontender, No edema Skin: Normal color, No rash Neurological: Alert, Oriented x3, Cranial nerves II-XII grossly intact, Normal Strength, Normal Sensation Psychological: Normal affect, Normal Mood <Phill Vasquez - Last Filed: 07/12/20 10:14> Vital Signs/Narrative: Vital Signs Temp Pulse Resp BP Pulse Ox 07/12/20 09:40 97.8 F 110 H 20 H 144/79 H 99 <Ramu Romero - Last Filed: 07/12/20 10:28> Diagnostic/Tx/Re-eval - Medical Decision Making Patient has a right otitis externa. No mastoid tenderness or redness. Will place on Cortisporin otic. Advised her to follow-up closely with her ENT physician. Return precautions given. She was agreeable with plan of care and all questions answered. <Phill Vasquez - Last Filed: 07/12/20 10:14> - Medical Decision Making Seen and evaluated independently and in conjunction with physician anesthesiologist assistant certified. Agree with notes above unless documented otherwise. Patient is well-appearing and nontoxic. She does have a concerning exam of the right external auditory canal, there certainly is infectious material present in the canal, which is patent but edematous. I am not able to visualize the tympanic membrane as a result. She does have pain with manipulation of the pinna and tragus which are otherwise unremarkable. She is very hard of hearing. Her other ear is normal-appearing except for what appears to be a chronic perforation without any discharge or signs of infection and she states that 1 is not bothering her but she is hard of hearing there. We recommend outpatient follow-up with otolaryngology and she is agreeable. <Ramu Romero - Last Filed: 07/12/20 10:28> ED Disposition <Phill Vasquez - Last Filed: 07/12/20 10:14> <Ramu Romero - Last Filed: 07/12/20 10:28> - Plan for ED Patient: Disposition: Home or Assisted Living Diagnosis: Otitis externa Instructions: ED Otitis Externa Prescriptions: Neomyc/Colist/Hydrocort/Thonzn [Cortisporin-Tc Ear Suspension] 10 ml OT TID #1 drops.susp Transmission Status: [id number] Referrals: Patt Joy DO [Primary Care Provider] - Oliver France MD [STAFF PHYSICIAN] - As soon as possible
== END 2020-07-12 10:40 | disposition home or self-care (01) ==
LOC: ED 10:26
PROVIDERS: Emergency Provider Physician Assistant Medical; PCP Internal Medicine
DX: H60.91 Unspecified otitis externa, right ear (principal); Z96.21 Cochlear implant status
CPT/HCPCS: 99282; A4216

== ENCOUNTER 2020-11-19 06:48 | Emergency (ER) | payer MEDICARE, SELFPAY ==
[2020-11-19 06:49] VITALS: BP 189/94; PULSE 91; RESP 18; TEMP 36.3; O2SAT 97; BMI 35.8
--- NOTE | 2020-11-19 06:53 | ED.DCSUM_ITS ---
- ER Visit Summary Date of Service: 11/19/20 Chief Complaint: Back pain/sciatica History of Present Illness: The patient is a 65 F who presents with back pain. This pain is been ongoing for 2 days. She describes sharp pain in the left lumbar region. The pain radiates down the left leg. She has not had a fever or dysuria. She denies any bowel or bladder incontinence or retention. She is been trying ibuprofen without any relief. She does have a history of sciatica. She has been able to ambulate without any difficulties at home. No specific injury that started her pain days ago. Physical Examination: Vital signs reviewed. HEENT exam unremarkable. Heart is regular rate and rhythm without murmurs. Lungs are clear to auscultation. Abdomen is soft and nontender. Her back is tender in the left lumbar paraspinal region. She also is tenderness in the left buttock. Extremities reveal no edema. Skin exam normal. Neurologic exam normal, including reflexes in the patellar region. Straight leg raise test is positive on the left side. Test Results: None performed Emergency Department Course and Treatment: Patient will be given a dose of morphine for pain control. Also give her a dose of prednisone as this is likely sciatica. Patient will be reevaluated by the oncoming physician. Treatment Plan: [] Disposition: Pending Impression: Sciatica This note was generated with [employer] dictation software. It may contain incorrect words, spelling, and punctuation that were not noted in review of the chart prior to signing ED Disposition - Plan for ED Patient: Referrals: Patt Joy DO [Primary Care Provider] -
[2020-11-19] MEDS: predniSONE 20 MG Tablet 40 MG PO (06:58)
[2020-11-19] MEDS: morphine 8 MG/ML Syringe IM (06:59)
== END 2020-11-19 08:32 | disposition home or self-care (01) ==
PROVIDERS: Emergency Provider Emergency Medicine; PCP Internal Medicine
DX: M54.42 Lumbago with sciatica, left side (principal); M19.90 Unspecified osteoarthritis, unspecified site
CPT/HCPCS: 96372; 99283

== ENCOUNTER → 2020-12-14 11:54 | Outpatient (CLI) | payer MEDICARE, SELFPAY ==
[2020-11-19 06:49] VITALS: BMI 35.8
--- NOTE | 2020-12-14 11:58 | RAD_ITS ---
STUDY: X-RAY - LUMBAR SPINE REASON FOR EXAM: Female, 65 years old. SCIATICA -- LEFT SIDE TECHNIQUE: 5 view(s) of the lumbar spine were obtained. COMPARISON: 10/28/2020 FINDINGS: Normal lumbar lordosis. Mild dextro scoliosis centered at L2/L3. There is a normal alignment of the vertebrae. No subluxation on the flexion or extension views to suggest instability. No change in the chronic wedge compression fractures of T12, L2, and L5 with 5 mm retropulsion of the superior endplate of L5 and the spinal canal producing moderate spinal stenosis. Normal disc space heights. Facet hypertrophy consistent with degenerative disc disease. Peripheral calcifications in the abdominal aorta without aneurysm . RAD/L/S Spine Min 4 Views IMPRESSION: Multilevel degenerative changes with stable chronic compression fractures in the lower thoracic and throughout the lumbar spine, no acute abnormality or significant interval change Electronically Signed: Eugenio Jones MD at 12:14 EDT , Service support ,
== END ==
PROVIDERS: PCP Internal Medicine; Referring Provider Nurse Practitioner; Visit Provider Nurse Practitioner
DX: M54.32 Sciatica, left side (principal)
CPT/HCPCS: 72110

== ENCOUNTER → 2021-03-18 10:31 | Outpatient (CLI) | payer MEDICARE, SELFPAY ==
[2021-02-17 13:29] VITALS: BMI 35.8
--- NOTE | 2021-03-18 10:34 | BI_ITS ---
MAMMOGRAPHY - BILATERAL SCREENING REASON FOR EXAM: Female, 66 years old. Routine annual screening examination. PERTINENT HISTORY: Sisters with breast cancer. TECHNIQUE: Digital bilateral breast amy (3D mammographic acquisition) in the CC and MLO projections. 2-D mediolateral oblique (MLO) and craniocaudad (CC) views of both breasts were obtained. CAD: Full Field Digital Mammography with Computer Added Detection was performed. COMPARISON: Comparison is made with prior study 06/19/2018 and 05/12/2015. FINDINGS: Breast Composition: There are scattered areas of fibroglandular density. There are no dominant masses or suspicious calcifications. Stable small benign-appearing bilateral axillary lymph nodes. No other significant abnormalities are identified. There has been no significant change since the prior study. BI/SCRN MAMM (CAD)W/AMY BILAT IMPRESSION: Stable bilateral screening mammogram. Yearly follow-up mammogram recommended. (A) ASSESSMENT CATEGORY: BIRADS Category 2: Benign. A letter regarding these results will be sent to the patient by the facility within 30 days. Approximately 10% of breast cancers are not detected by mammography. A normal mammogram should not delay biopsy of a clinically suspicious abnormality. [id number] Electronically Signed: James Price MD at 12:45 EDT , Service support ,
--- NOTE | 2021-03-18 10:38 | BD_ITS ---
STUDY: DUAL ENERGY X-RAY ABSORPTIOMETRY / DXA REASON FOR EXAM: Female, 66 years old. 733.00OsteoporosisBONE DENSITY REASON FOR EXAM TECHNIQUE: Bone Mineral Density (BMD) measurements of lumbar spine and bilateral hips were obtained. COMPARISON: Comparison is made with prior study 06/19/2018. FINDINGS: Lumbar Spine (L1-L4): g/cm2 (0.861) / T-score (-1.7) / Z-score (0.3) Findings are suggestive of osteopenia with a moderate fracture risk. Left Femur Total: g/cm2 (0.575) / T-score (-3.0) / Z-score (-1.6) Left Femoral Neck: g/cm2 (0.388) / T-score (-4.2) / Z-score (-2.5) Right Femur Total: g/cm2 (0.563) / T-score (-3.1) / Z-score (-1.7) Right Femoral Neck: g/cm2 (0.211) / T-score (-5.7) / Z-score (-4.1) The T-Scores on the most recent prior examination were: Lumbar Spine (L1-L4): There has been worsening of bone density since the previous examination. Left Femur Total: which represents an improvement of 2.2%. Right Femur Total: which represents a worsening of 5.7%. BD/Dexa Bone Density Study IMPRESSION: The patient is considered osteoporotic as outlined below according to World Stevenson Organization (WHO) criteria with a high fracture risk. There has been worsening of bone density since the previous examination. Reference Information: The T-score is the number of standard deviations above or below the standard which is normal for young adults at their peak bone mineral density. The World Health Organization (WHO) interprets the T-scores as follows: Above -1 Normal bone density Between -1 and -2.5 Osteopenia Equal to / or below -2.5 Osteoporosis As a practical clinical guideline, osteopenia may be graded as follows: Mild -1 through -1.5 Moderate -1.6 through -2.0 Severe -2.1 through -2.4 The Z-score is the number of standard deviations above or below age-matched controls. A Z-score of less than -1.5 would be considered abnormal. References: 1. NIH Osteoporosis and Related Bone Diseases www osteo.org 2. International Society for Clinical Densitometry www iscd.org 3. National Osteoporosis Foundation www nof.org Electronically Signed: James Price MD at 10:19 EDT , Service support ,
== END ==
PROVIDERS: PCP Internal Medicine; Referring Provider Nurse Practitioner; Visit Provider Nurse Practitioner
DX: Z12.31 Encounter for screening mammogram for malignant neoplasm of breast (principal); S32.020A Wedge compression fracture of second lumbar vertebra, initial encounter for closed fracture
CPT/HCPCS: 77063; 77067; 77080

== ENCOUNTER → 2021-06-18 12:25 | Outpatient (CLI) | payer MEDICARE, SELFPAY ==
--- NOTE | 2021-06-18 12:30 | MRI_ITS ---
STUDY: MRI LUMBAR SPINE WITHOUT CONTRAST REASON FOR EXAM: Female, 66 years old. Compression Fx, LBP, leg pain TECHNIQUE: Standardized fat and water weighted pulse sequences were obtained in the sagittal and axial planes. was administered for the contrast portion of the examination. COMPARISON: 17 February 2021 FINDINGS: Appearance is similar to prior. There is no acute fracture. There are multilevel chronic compressive deformities of nearly all vertebral bodies, with greatest loss of height involving T12, L2 and L5. T12-L1: Degenerated endplates. Decreased disc height, hydration and degenerative bulge morphology. Degenerative bilateral facet joints. Normal central canal and bilateral lateral recesses. Normal bilateral intervertebral neural foramina. Conus terminates at superior aspect of L3. Cauda equina is normal. L1-2: Degenerated endplates. Decreased disc height, hydration and morphology. Degenerated bilateral facet joints. Normal central canal and bilateral lateral recesses. Normal bilateral intervertebral neural foramina. L2-3: Degenerated endplates. Normal disc height, hydration and morphology. Normal bilateral facet joints. Normal central canal and bilateral lateral recesses. Mild to moderate bilateral foraminal stenosis L3-4: Degenerated endplates. Normal disc height, hydration and morphology. Normal bilateral facet joints. Normal central canal and bilateral lateral recesses. Moderate right and mild left foraminal stenosis L4-5: Degenerated endplates. Decreased disc height, hydration and degenerative bulge morphology. Normal bilateral facet joints. Normal central canal and bilateral lateral recesses. Moderate right and mild left foraminal stenosis L5-S1: Degenerated endplates. Decreased disc height, hydration and degenerative bulge morphology. Normal bilateral facet joints. Normal central canal and bilateral lateral recesses. Moderate to severe left and moderate right foraminal stenosis. Normal visualized sacral ala. Normal visualized paraspinous soft tissue structures. MRI/Spine Lumbar (Routine) IMPRESSION: 1. No acute fracture. 2. Multilevel compressive vertebral deformities. 3. Extensive spondylosis. 4. Patent thecal sac. 5. Multilevel foraminal stenoses, worst at L5-S1 on the left. Electronically Signed: Lisa Tucker MD at 21:09 EDT Tel , Service support ,
== END ==
PROVIDERS: PCP Internal Medicine; Referring Provider Anesthesiology Pain Medicine; Visit Provider Anesthesiology Pain Medicine
DX: M54.50 Low back pain, unspecified (principal); M79.606 Pain in leg, unspecified
CPT/HCPCS: 72148

== ENCOUNTER 2021-07-15 08:47 | Emergency (ER) | payer MEDICARE, SELFPAY ==
[2021-07-15 08:48] VITALS: BP 185/89; PULSE 89; RESP 15; TEMP 36.3; O2SAT 98; BMI 35.7
--- NOTE | 2021-07-15 09:25 | EDS_ITS ---
HPI History of Present Illness Chief Complaint: Other, Pain/Inj Detail of Chief Complaint: Neck and back pain Informant: patient Narrative Narrative: Patient presents to the emergency department complaint of neck and back pain that became more severe over the last 36 hours. Patient states that she was using a heavy mop to mop her floors 4 days ago and she believes that is what triggered her discomfort. She has had no fall or injury otherwise. Patient describes pain mostly in the neck and across her shoulders. She denies any pain radiating to her arms or legs. Patient is in pain management and is being treated for chronic pain related to arthritis. Patient states that she seen a back surgeon and was told that they could not help her because of all the severe degenerative changes in her back. Patient denies fever or recent i llness. She rates her pain a 10 out of 10. Patient states pain is positional and worse with certain movements of her arms or neck. Patient denies any weakness in the arms or legs. Patient has chronic numbness in her hands. [facility] Medical History (Updated 07/15/21 @ 11:[address] Perry Stern DO) Cochlear implant in place Hx of cataract Tonsillectomy planned Home Medications Cholecalciferol (Vitamin D3) [Vitamin D3] 2 tab PO DAILY 02/12/20 [History Last Taken Unknown] apple cider vinegar 600 mg capsule mg PO 10/28/20 [History Last Taken Unknown] calcium carbonate 500 mg calcium (1,250 mg) tablet 500 mg PO DAILY 10/28/20 [History Last Taken Unknown] Tumeric 1 tab PO DAILY 11/19/20 [History Last Taken Unknown] prednisone 60 mg PO DAILY #9 tablet 11/19/20 [Rx Last Taken Unknown] tizanidine [Zanaflex] 4 mg PO QHS PRN #14 cap 07/15/21 [Rx Last Taken Unknown] Allergy/AdvReac Type Severity Reaction Status Date / Time No Known Allergies Allergy Verified 07/15/21 08:50 Surgical History History of carpal tunnel release of both wrists Hx of arthroscopy of right knee Hx of cholecystectomy Hx of removal of cyst Social History (Updated 10/28/20 @ 12:[address] Negro Johnson DO) Smoking Status: Never smoker ROS ROS ED Constitutional Constitutional ED: Reports systems reviewed and no addt'l complaints, except as documented; Denies body ache(s), change in weight or chills Eyes Eyes: Denies acute decrease in peripheral vision, change in vision, double vision or loss of vision ENT ENT ED: Reports none; Denies ear pain, lip swelling, loss taste/smell, neck pain, otalgia or sore throat Cardiovascular Cardiovascular: Reports none; Denies abdominal pain, chest pain with activity, leg edema, lightheadedness, palpitations, rapid heart rate or syncope Respiratory/Chest Respiratory/Chest: Reports none; Denies change in mental status, dry cough, dyspnea, hemoptysis, shortness of breath at rest or shortness of breath with exertion Gastrointestinal Gastrointestinal: Reports none; Denies abdominal pain, change in stool character, diarrhea, hematemesis, hematochezia, melena, rectal bleeding or vomiting Genitourinary Genitourinary ED: Reports none; Denies abdominal discomfort, anuria, dysuria, genital pain or polyuria Musculoskeletal Musculoskeletal: Reports none, back pain and neck pain; Denies arthralgias, difficulty walking, extremity pain, muscle weakness or myalgias Integumentary Reports none; Denies abscess or rash Neurologic Neurologic: Reports none; Denies abnormal gait, confusion, focal weakness, frequent falls, headache(s), loss of vision, numbness, paresthesias, radicular pain, vertigo or weakness Psychiatric Psychiatric: Reports systems reviewed and no addt'l complaints, except as documented and none; Denies behavioral changes, confusion, difficulty concentrating, hallucinations, suicidal ideation, tactile hallucinations or visual hallucinations Endocrine Endocrinology: Denies none, cold intolerance, excessive sweating, fatigue or heat intolerance Hematologic/Lymphatic Hematologic/Lymphatic: Reports none; Denies anemia, easy bleeding or easy bruising Allergic/Immunologic Allergic/Immunologic ED: Denies as per HPI, none, lip swelling, mouth swelling, throat swelling, tongue swelling or hives EXAM Physical Exam Const Vital Signs: 07/15/21 08:48 Temperature 97.4 F L Temperature Source Temporal Pulse Rate 89 Respiratory Rate 15 Blood Pressure 185/89 H Blood Pressure Mean 121 Pulse Ox 98 Oxygen Delivery Method Room Air Positive well nourished and well developed General Appearance ED: well developed and NAD HEENT Reports TM's clear and moist mucous membranes normocephalic and atraumatic; Negative for trauma or tenderness Tympanic Membrane ED: Yes TM's clear Eyes PERRL and EOMs intact bilaterally General Eye ED: Negative for pale conjunctiva or scleral icterus Neck no lymphadenopathy, supple and no JVD Neck Narrative: Patient has diffuse tenderness over the cervical paraspinal musculature especially on the right and the right trapezius. Patient has some mild tenderness over the cervical spine diffusely as well. Deep tendon reflexes are plus 2 out of 4 bilaterally at the bicep, tricep, brachioradialis. Patient has normal start up specialist strength bilaterally. General: tenderness Chest Wall inspection of chest normal and palpation of chest normal Chest: Negative for tenderness Resp normal respiratory effort and clear to auscultation bilaterally Effort and Inspection: Negative for respiratory distress or pain with movement Auscultation: Negative for rhonchi, wheezes or diminished lung sounds Cardio regular rate, regular rhythm, S1 normal heart sound, S2 normal heart sound and no murmurs Peripheral Pulses: pulses 2+ throughout GI normal to inspection, nondistended, normoactive bowel sounds, soft to palpation, non-tender, non-distended and no masses Back/Spine no CVA tenderness and no thoracic nor lumbar tenderness Back/Spine Narrative: No significant tenderness over the thoracic or lumbar spine. Negative straight leg raises. Extremity normal to inspection General Extremety ED: Negative for edema General Extremity: Negative for edema Neuro oriented x3, CN's II-XII intact bilaterally, no sensory deficits noted and gait normal Sensorium / Orientation: awake, alert, oriented to person, oriented to place and oriented to time Motor Exam: strength 5/5 throughout and strength abnormal Psych mental status grossly normal Skin no rashes or lesions noted and no wounds MDM MDM MDM Narrative Medical decision making narrative: Patient was medicated with Dilaudid as well as Valium and Zofran. X-rays showed significant degenerative changes of her cervical spine but no obvious fractures or compression fractures. Case was discussed with her portrait painter who asked that I start patient on Zanaflex at night and he can see her in the office in 5 days. Radiography Diagnostic Testing: Clinical Impression(s) from Imaging Studies Cervical Spine X-Ray 07/15/21 10:15 IMPRESSION: Degenerative changes of the spine. Electronically Signed: Blanca Rios MD at 10:26 EST Tel , Service support , Discharge Plan Triage Chief Complaint: Other, Pain/Inj ED Provider: Perry Stern Dx/Rx/DC Orders Clinical Impression: Cervical strain, Back strain Instructions: ED Back Sprain/Strain, ED Chronic Pain, ED Neck Sprain or Strain Prescriptions: New tizanidine [Zanaflex] 4 mg capsule 4 mg PO QHS PRN (Reason: muscle spasticity) Qty: 14 RF: 0 No Action apple cider vinegar 600 mg capsule PO RF: 0 calcium carbonate [Calcium 500] 500 mg calcium (1,250 mg) tablet 500 mg PO DAILY RF: 0 Cholecalciferol (Vitamin D3) [Vitamin D3] 5,000 UNIT capsule 2 tab PO DAILY RF: 0 Tumeric 1 tab PO DAILY RF: 0 prednisone 20 MG tablet 60 mg PO DAILY Qty: 9 RF: 0 Primary Care Provider: Patt Joy Referrals: Moy Payne MD [STAFF PHYSICIAN] - 07/20/21 Patt Joy DO [Primary Care Provider] - Disposition Disposition: Home, Self Care
--- NOTE | 2021-07-15 10:15 | RAD_ITS ---
STUDY: X-RAY - CERVICAL SPINE REASON FOR EXAM: Female, 66 years old. neck pain TECHNIQUE: 3 view(s) of the cervical spine were obtained. COMPARISON: None FINDINGS: There is straightening of the normal cervical lordosis. There is multi-level endplate spondylosis. There is multi-level degenerative disc disease with multilevel disc space narrowing. The soft tissue structures are unremarkable. RAD/Cerv Spine 2 or 3 Views IMPRESSION: Degenerative changes of the spine. Electronically Signed: Blanca Rios MD at 10:26 EST Tel , Service support ,
[2021-07-15] MEDS: diazePAM 2 MG Tablet PO (10:46)
[2021-07-15] MEDS: Ondansetron 4 MG/2 ML Vial IM (10:48)
[2021-07-15] MEDS: HYDROmorphone 1 MG/ML Syringe IM (10:50)
[2021-07-15 11:18] VITALS: BP 138/74; PULSE 69; RESP 15; O2SAT 98
== END 2021-07-15 11:20 | disposition home or self-care (01) ==
PROVIDERS: Emergency Provider Emergency Medicine; PCP Internal Medicine
DX: S16.1XXA Strain of muscle, fascia and tendon at neck level, initial encounter (principal); S39.012A Strain of muscle, fascia and tendon of lower back, initial encounter; X58.XXXA Exposure to other specified factors, initial encounter; Y93.9 Activity, unspecified; Y92.9 Unspecified place or not applicable; G89.29 Other chronic pain
CPT/HCPCS: 72040; 96372; 99283; J2405

== ENCOUNTER → 2021-08-11 12:28 | Outpatient (CLI) | payer MEDICARE, SELFPAY ==
[2021-08-11 15:28] LABS: Absolute Lymphocyte Count 1.62 X10^3/uL (0.83-4.51); Absolute Neutrophil Count 3.1 X10^3/uL (2.0-7.7); Basophil# 0.05 X10^3/uL; Basophil% 0.9 % (0-1); Eosinophil# 0.09 X10^3/uL; Eosinophils% 1.7 % (0-5); Hematocrit 41.3 % (37-47); Hemoglobin 13.3 g/dL (12.0-15.0); Lymphocyte # 1.62 X10^3/ul (0.83-4.51); Lymphocyte % 29.8 % (19-41); Mean Corp Hgb Conc 32.2 g/dL (32-36); Mean Corpuscular Hgb 28.9 pg (27.0-32.0); Mean Corpuscular Volume 89.8 fL (81-99); Mean Platelet Vol. 9.3 fl (6.2-12.0); Monocyte# 0.61 X10^3/uL; Monocyte% 11.2 % (0-10); NRBC Flagged by Analyzer 0 % (0-5); Neutrophil # 3.05 X10^3/uL (2.7-7.7); Neutrophil % 56.2 % (47-70); Platelet Count 273 K/mm3 (150-450); RBC Distribution Width CV 12.3 % (11.6-14.6); RBC Distribution Width SD 40.4 fl (35.1-43.9); White Blood Count 5.4 K/mm3 (4.4-11.0)
[2021-08-11 15:53] LABS: AST(SGOT) 14 U/L (15-37); Alanine Aminotransfer ALT/SGPT 21 U/L (13-56); Albumin, Serum 3.7 g/dL (3.2-5.0); Alkaline Phosphatase 58 U/L (45-117); Anion Gap 6 (5-15); BUN 16 mg/dL (7-18); BUN/Creat Ratio 18.4 RATIO (10-20); Chloride 107 mmol/L (98-107); Creatinine, Serum 0.87 mg/dL (0.55-1.02); EST Glomerular Filtration Rate 69 mL/min (>60); Est Glom Filt Rate - Afr Amer 83 mL/min (>60); Globulin 3.7 g/dL (2.2-4.2); Glucose 96 mg/dL (74-106); Potassium 3.8 mmol/L (3.5-5.1); Protein, Total 7.4 g/dL (6.4-8.2); Sodium Level 141 mmol/L (136-145)
== END ==
PROVIDERS: PCP Internal Medicine; Referring Provider Internal Medicine Rheumatology; Visit Provider Internal Medicine Rheumatology
DX: M06.4 Inflammatory polyarthropathy (principal); Z79.899 Other long term (current) drug therapy; M79.7 Fibromyalgia; M18.0 Bilateral primary osteoarthritis of first carpometacarpal joints; M17.0 Bilateral primary osteoarthritis of knee; M47.897 Other spondylosis, lumbosacral region; M21.40 Flat foot [pes planus] (acquired), unspecified foot; E78.5 Hyperlipidemia, unspecified
CPT/HCPCS: 36415; 80053; 85025

== ENCOUNTER 2021-10-18 10:03 | Outpatient (CLI) | payer MEDICARE, SELFPAY ==
[2021-10-18 12:02] LABS: Absolute Lymphocyte Count 1.89 X10^3/uL (0.83-4.51); Absolute Neutrophil Count 2.5 X10^3/uL (2.0-7.7); Basophil# 0.05 X10^3/uL; Eosinophil# 0.13 X10^3/uL; Eosinophils% 2.5 % (0-5); Hemoglobin 13.3 g/dL (12.0-15.0); Lymphocyte # 1.89 X10^3/ul (0.83-4.51); Lymphocyte % 36.1 % (19-41); Mean Corp Hgb Conc 32.4 g/dL (32-36); Mean Corpuscular Hgb 28.7 pg (27.0-32.0); Mean Corpuscular Volume 88.4 fL (81-99); Mean Platelet Vol. 9.1 fl (6.2-12.0); Monocyte# 0.65 X10^3/uL; Monocyte% 12.4 % (0-10); NRBC Flagged by Analyzer 0 % (0-5); Neutrophil % 47.8 % (47-70); Platelet Count 234 K/mm3 (150-450); RBC Distribution Width CV 13.2 % (11.6-14.6); RBC Distribution Width SD 42.6 fl (35.1-43.9); Red Blood Count 4.64 M/mm3 (4.2-5.4); White Blood Count 5.2 K/mm3 (4.4-11.0)
[2021-10-18 12:48] LABS: ALB/GLOB Ratio 1.1 RATIO (0.9-2.4); AST(SGOT) 16 U/L (15-37); Alanine Aminotransfer ALT/SGPT 18 U/L (13-56); Albumin, Serum 3.8 g/dL (3.2-5.0); Alkaline Phosphatase 60 U/L (45-117); Anion Gap 8 (5-15); BUN 12 mg/dL (7-18); BUN/Creat Ratio 13.4 RATIO (10-20); Calcium,Total 8.6 mg/dL (8.5-10.1); Chloride 105 mmol/L (98-107); Creatinine, Serum 0.89 mg/dL (0.55-1.02); EST Glomerular Filtration Rate 67 mL/min (>60); Est Glom Filt Rate - Afr Amer 81 mL/min (>60); Globulin 3.5 g/dL (2.2-4.2); Glucose 97 mg/dL (74-106); Potassium 3.6 mmol/L (3.5-5.1); Protein, Total 7.3 g/dL (6.4-8.2); Sodium Level 140 mmol/L (136-145)
== END 2021-10-18 23:59 | disposition home or self-care (01) ==
LOC: MTLAB 10:05
PROVIDERS: PCP Internal Medicine; Referring Provider Internal Medicine Rheumatology; Visit Provider Internal Medicine Rheumatology
DX: M06.4 Inflammatory polyarthropathy (principal); M79.7 Fibromyalgia; M18.0 Bilateral primary osteoarthritis of first carpometacarpal joints; M17.0 Bilateral primary osteoarthritis of knee; M47.897 Other spondylosis, lumbosacral region; M21.40 Flat foot [pes planus] (acquired), unspecified foot; E78.5 Hyperlipidemia, unspecified; Z79.899 Other long term (current) drug therapy
CPT/HCPCS: 36415; 80053; 85025

== ENCOUNTER 2021-11-24 10:47 | Outpatient (CLI) | payer MEDICARE, SELFPAY ==
--- NOTE | 2021-11-24 13:21 | NEURO ---
NCS and/or EMG Patient Report Ordering Doctor: Manisha Navas DATE OF SERVICE: 11/24/21 Gunjan presents for electrodiagnostic testing of the upper limbs. She reports numbness and tingling in both hands. She has a history of bilateral carpal tunnel repair in 2000. Electrodiagnostic findings: Median motor nerve demonstrates normal distal latency, amplitude and conduction velocity bilaterally. Normal ulnar motor response bilaterally. Normal median ulnar F waves. Sensory responses are within normal limits. On needle EMG, all muscles tested in the upper limbs showed no evidence of denervation with normal motor unit action potentials. Electrodiagnostic impression: This is a normal electrodiagnostic study in the upper limbs. There is no electrodiagnostic evidence for peripheral neuropathy, including carpal tunnel syndrome. There is no electrodiagnostic evidence for cervical radiculopathy.
== END 2021-11-24 23:59 | disposition home or self-care (01) ==
LOC: PSN 10:48
PROVIDERS: PCP Internal Medicine; Referring Provider Internal Medicine Rheumatology; Visit Provider Internal Medicine Rheumatology
DX: M06.4 Inflammatory polyarthropathy (principal); Z79.899 Other long term (current) drug therapy; M79.7 Fibromyalgia; M18.0 Bilateral primary osteoarthritis of first carpometacarpal joints; M17.0 Bilateral primary osteoarthritis of knee; M47.897 Other spondylosis, lumbosacral region; M21.40 Flat foot [pes planus] (acquired), unspecified foot; E78.5 Hyperlipidemia, unspecified
CPT/HCPCS: 95886; 95913

== ENCOUNTER → 2022-01-11 | Outpatient (CLI) | payer MEDICARE, SELFPAY ==
[2022-01-11 12:19] LABS: Absolute Lymphocyte Count 1.61 X10^3/uL (0.83-4.51); Absolute Neutrophil Count 2.1 X10^3/uL (2.0-7.7); Basophil# 0.03 X10^3/uL; Basophil% 0.7 % (0-1); Eosinophil# 0.06 X10^3/uL; Eosinophils% 1.4 % (0-5); Hematocrit 39.5 % (37-47); Hemoglobin 13.1 g/dL (12.0-15.0); Lymphocyte # 1.61 X10^3/ul (0.83-4.51); Lymphocyte % 37.3 % (19-41); Mean Corp Hgb Conc 33.2 g/dL (32-36); Mean Corpuscular Hgb 30.5 pg (27.0-32.0); Mean Corpuscular Volume 91.9 fL (81-99); Mean Platelet Vol. 8.8 fl (6.2-12.0); Monocyte# 0.48 X10^3/uL; Monocyte% 11.1 % (0-10); NRBC Flagged by Analyzer 0 % (0-5); Neutrophil # 2.13 X10^3/uL (2.7-7.7); Neutrophil % 49.3 % (47-70); Platelet Count 272 K/mm3 (150-450); RBC Distribution Width CV 14.6 % (11.6-14.6); RBC Distribution Width SD 49.1 fl (35.1-43.9); White Blood Count 4.3 K/mm3 (4.4-11.0)
[2022-01-11 13:15] LABS: ALB/GLOB Ratio 1.1 RATIO (0.9-2.4); AST(SGOT) 13 U/L (15-37); Alanine Aminotransfer ALT/SGPT 20 U/L (13-56); Albumin, Serum 3.9 g/dL (3.2-5.0); Alkaline Phosphatase 45 U/L (45-117); Anion Gap 7 (5-15); BUN 11 mg/dL (7-18); BUN/Creat Ratio 12.8 RATIO (10-20); Calcium,Total 9.3 mg/dL (8.5-10.1); Chloride 104 mmol/L (98-107); Creatinine, Serum 0.86 mg/dL (0.55-1.02); EST Glomerular Filtration Rate 70 mL/min (>60); Est Glom Filt Rate - Afr Amer 84 mL/min (>60); Globulin 3.4 g/dL (2.2-4.2); Glucose 119 mg/dL (74-106); Potassium 3.6 mmol/L (3.5-5.1); Protein, Total 7.3 g/dL (6.4-8.2); Sodium Level 139 mmol/L (136-145)
== END | disposition home or self-care (01) ==
LOC: MTLAB 09:50
PROVIDERS: PCP Internal Medicine; Referring Provider Internal Medicine Rheumatology; Visit Provider Internal Medicine Rheumatology
DX: M06.4 Inflammatory polyarthropathy (principal); Z79.899 Other long term (current) drug therapy; M79.7 Fibromyalgia; M18.0 Bilateral primary osteoarthritis of first carpometacarpal joints; M17.0 Bilateral primary osteoarthritis of knee; M47.897 Other spondylosis, lumbosacral region; M21.40 Flat foot [pes planus] (acquired), unspecified foot; E78.5 Hyperlipidemia, unspecified
CPT/HCPCS: 36415; 80053; 85025

== ENCOUNTER → 2022-04-07 | Outpatient (CLI) | payer MEDICARE, SELFPAY ==
[2022-04-07 12:19] LABS: Absolute Lymphocyte Count 1.52 X10^3/uL (0.83-4.51); Absolute Neutrophil Count 3.1 X10^3/uL (2.0-7.7); Basophil# 0.04 X10^3/uL; Basophil% 0.8 % (0-1); Eosinophil# 0.05 X10^3/uL; Hematocrit 37.1 % (37-47); Hemoglobin 12.4 g/dL (12.0-15.0); Lymphocyte # 1.52 X10^3/ul (0.83-4.51); Lymphocyte % 29.1 % (19-41); Mean Corp Hgb Conc 33.4 g/dL (32-36); Mean Corpuscular Volume 92.8 fL (81-99); Mean Platelet Vol. 8.8 fl (6.2-12.0); Monocyte# 0.51 X10^3/uL; Monocyte% 9.8 % (0-10); NRBC Flagged by Analyzer 0 % (0-5); Neutrophil # 3.09 X10^3/uL (2.7-7.7); Neutrophil % 59.1 % (47-70); Platelet Count 272 K/mm3 (150-450); RBC Distribution Width CV 12.6 % (11.6-14.6); White Blood Count 5.2 K/mm3 (4.4-11.0)
[2022-04-07 12:57] LABS: AST(SGOT) 16 U/L (15-37); Alanine Aminotransfer ALT/SGPT 25 U/L (13-56); Albumin, Serum 3.5 g/dL (3.2-5.0); Alkaline Phosphatase 49 U/L (45-117); Anion Gap 6 (5-15); BUN 15 mg/dL (7-18); BUN/Creat Ratio 20.8 RATIO (10-20); Calcium,Total 8.4 mg/dL (8.5-10.1); Chloride 105 mmol/L (98-107); Creatinine, Serum 0.72 mg/dL (0.55-1.02); EST Glomerular Filtration Rate 85 mL/min (>60); Est Glom Filt Rate - Afr Amer 103 mL/min (>60); Globulin 3.4 g/dL (2.2-4.2); Glucose 100 mg/dL (74-106); Potassium 3.6 mmol/L (3.5-5.1); Protein, Total 6.9 g/dL (6.4-8.2); Sodium Level 140 mmol/L (136-145)
== END | disposition home or self-care (01) ==
LOC: MTLAB 11:03
PROVIDERS: PCP Internal Medicine; Referring Provider Internal Medicine Rheumatology; Visit Provider Internal Medicine Rheumatology
DX: M06.4 Inflammatory polyarthropathy (principal); Z79.899 Other long term (current) drug therapy; M79.7 Fibromyalgia; M18.0 Bilateral primary osteoarthritis of first carpometacarpal joints; M17.0 Bilateral primary osteoarthritis of knee; M47.897 Other spondylosis, lumbosacral region; M21.40 Flat foot [pes planus] (acquired), unspecified foot; E78.5 Hyperlipidemia, unspecified
CPT/HCPCS: 36415; 80053; 85025

== ENCOUNTER → 2022-07-06 | Outpatient (CLI) | payer MEDICARE, SELFPAY ==
[2022-07-06 15:26] LABS: Absolute Neutrophil Count 2.3 X10^3/uL (2.0-7.7); Basophil# 0.05 X10^3/uL; Eosinophil# 0.38 X10^3/uL; Eosinophils% 7.8 % (0-5); Hemoglobin 13.9 g/dL (12.0-15.0); Lymphocyte % 32.8 % (19-41); Mean Corp Hgb Conc 33.9 g/dL (32-36); Mean Corpuscular Hgb 31.1 pg (27.0-32.0); Mean Corpuscular Volume 91.7 fL (81-99); Mean Platelet Vol. 9.2 fl (6.2-12.0); Monocyte% 10.2 % (0-10); NRBC Flagged by Analyzer 0 % (0-5); Neutrophil # 2.34 X10^3/uL (2.7-7.7); Platelet Count 267 K/mm3 (150-450); RBC Distribution Width SD 44.1 fl (35.1-43.9); Red Blood Count 4.47 M/mm3 (4.2-5.4); White Blood Count 4.9 K/mm3 (4.4-11.0)
[2022-07-06 15:28] LABS: ALB/GLOB Ratio 0.9 RATIO (0.9-2.4); AST(SGOT) 14 U/L (15-37); Alanine Aminotransfer ALT/SGPT 18 U/L (13-56); Albumin, Serum 3.7 g/dL (3.2-5.0); Alkaline Phosphatase 53 U/L (45-117); Anion Gap 5 (5-15); BUN 12 mg/dL (7-18); BUN/Creat Ratio 13.6 RATIO (10-20); Chloride 107 mmol/L (98-107); Creatinine, Serum 0.88 mg/dL (0.55-1.02); EST Glomerular Filtration Rate 68 mL/min (>60); Est Glom Filt Rate - Afr Amer 82 mL/min (>60); Globulin 3.9 g/dL (2.2-4.2); Glucose 101 mg/dL (74-106); Potassium 3.8 mmol/L (3.5-5.1); Protein, Total 7.6 g/dL (6.4-8.2); Sodium Level 141 mmol/L (136-145)
== END | disposition home or self-care (01) ==
PROVIDERS: PCP Internal Medicine; Visit Provider Internal Medicine Rheumatology
DX: M06.4 Inflammatory polyarthropathy (principal); M79.7 Fibromyalgia; M18.0 Bilateral primary osteoarthritis of first carpometacarpal joints; M17.0 Bilateral primary osteoarthritis of knee; M47.897 Other spondylosis, lumbosacral region; M21.40 Flat foot [pes planus] (acquired), unspecified foot; E78.5 Hyperlipidemia, unspecified; Z79.899 Other long term (current) drug therapy
CPT/HCPCS: 36415; 80053; 85025

== ENCOUNTER → 2022-09-29 | Outpatient (CLI) | payer MEDICARE, SELFPAY ==
[2022-09-29 15:33] LABS: Absolute Lymphocyte Count 1.76 X10^3/uL (0.83-4.51); Absolute Neutrophil Count 2.8 X10^3/uL (2.0-7.7); Basophil# 0.05 X10^3/uL; Basophil% 0.9 % (0-1); Eosinophil# 0.09 X10^3/uL; Eosinophils% 1.7 % (0-5); Hematocrit 43.7 % (37-47); Hemoglobin 13.8 g/dL (12.0-15.0); Lymphocyte # 1.76 X10^3/ul (0.83-4.51); Lymphocyte % 32.9 % (19-41); Mean Corp Hgb Conc 31.6 g/dL (32-36); Mean Corpuscular Hgb 28.4 pg (27.0-32.0); Mean Corpuscular Volume 89.9 fL (81-99); Mean Platelet Vol. 9.4 fl (6.2-12.0); Monocyte# 0.69 X10^3/uL; Monocyte% 12.9 % (0-10); NRBC Flagged by Analyzer 0 % (0-5); Neutrophil # 2.75 X10^3/uL (2.7-7.7); Neutrophil % 51.4 % (47-70); Platelet Count 255 K/mm3 (150-450); RBC Distribution Width CV 13.3 % (11.6-14.6); RBC Distribution Width SD 43.8 fl (35.1-43.9); Red Blood Count 4.86 M/mm3 (4.2-5.4); White Blood Count 5.4 K/mm3 (4.4-11.0)
[2022-09-29 16:02] LABS: AST(SGOT) 16 U/L (15-37); Alanine Aminotransfer ALT/SGPT 19 U/L (13-56); Albumin, Serum 3.7 g/dL (3.2-5.0); Alkaline Phosphatase 62 U/L (45-117); Anion Gap 7 (5-15); BUN 16 mg/dL (7-18); BUN/Creat Ratio 15.7 RATIO (10-20); Calcium,Total 9.4 mg/dL (8.5-10.1); Chloride 105 mmol/L (98-107); Creatinine, Serum 1.02 mg/dL (0.55-1.02); EST Glomerular Filtration Rate 57 mL/min (>60); Est Glom Filt Rate - Afr Amer 69 mL/min (>60); Globulin 3.7 g/dL (2.2-4.2); Glucose 95 mg/dL (74-106); Potassium 4.1 mmol/L (3.5-5.1); Protein, Total 7.4 g/dL (6.4-8.2); Sodium Level 141 mmol/L (136-145)
== END | disposition home or self-care (01) ==
LOC: MTLAB 12:59
PROVIDERS: PCP Internal Medicine; Referring Provider Internal Medicine Rheumatology; Visit Provider Internal Medicine Rheumatology
DX: M06.4 Inflammatory polyarthropathy (principal); Z79.899 Other long term (current) drug therapy
CPT/HCPCS: 36415; 80053; 85025

== ENCOUNTER 2022-11-21 01:13 | Emergency (ER) | payer MEDICARE, SELFPAY ==
[2022-11-21 01:14] VITALS: BP 174/84; PULSE 81; RESP 16; TEMP 36.3; O2SAT 98; BMI 38.8
--- NOTE | 2022-11-21 03:15 | RAD_ITS ---
INDICATION: pain EXAMINATION/TECHNIQUE: X-RAY - RIGHT XR Ankle Min 3 Views 3 VIEWS COMPARISON: None. FINDINGS: BONES: No fracture demonstrated. Focal irregular lucency at the medial aspect of the talar dome suspicious for avascular necrosis versus degenerative change. Calcaneal spurs at the plantar and Achilles insertion sites. JOINTS: No dislocation. SOFT TISSUES: Mild soft tissue swelling overlying the lateral malleolus. RAD/Ankle min 3 Views IMPRESSION: No evidence of fracture. Avascular necrosis at the talar dome versus degenerative change. Electronically Signed: Imelda Manzo MD at 3:56 EDT ,
--- NOTE | 2022-11-21 03:38 | ED.VIS.LOWEX ---
HPI History of Present Illness HPI Narrative: Atraumatic right ankle pain. Chief Complaint: Lower Extremity Injury Informant: patient Occured/Mechanism Mechanism/Context: No injury and No blunt trauma Onset/Context/Timing Onset: Today and Yesterday Context: Gradual Onset Timing: Continuous Quality of Pain: Dull Maximum Severity: Mild Associated Symptoms Associated Symptoms: Negative for Parasthesia, Weakness or Loss of Funtion Narrative Narrative: 67-year-old female history of prior right total knee replacement. History of arthritis. States around 5:00 last night she developed right ankle pain. She denies any fall or trauma. No fever or chills. No redness. No history of gout. She does have a history of osteoarthritis. Prior similar symptoms: Yes Recent Illness/Hospitalization: No PFSH PFSH Medical History Cochlear implant in place Hx of cataract Tonsillectomy planned Home Medications Cholecalciferol (Vitamin D3) [Vitamin D3] 2 tab PO DAILY 02/12/20 [History Last Taken Unknown] prednisone 20 mg tablet 60 mg PO DAILY #9 TABLETS 11/19/20 [Rx Last Taken Unknown] methocarbamol 500 mg tablet 500 mg PO TID 01/19/22 [History Last Taken Unknown] tramadol 50 mg tablet 50 mg PO Q6H PRN 01/19/22 [History Last Taken Unknown] prednisone 20 mg tablet 40 mg PO DAILY 6 days #12 tabs 11/21/22 [Rx Last Taken Unknown] Allergy/AdvReac Type Severity Reaction Status Date / Time No Known Allergies Allergy Verified 01/19/22 13:56 Surgical History History of carpal tunnel release of both wrists Hx of arthroscopy of right knee Hx of cholecystectomy Hx of removal of cyst Social History Smoking Status: Never smoker ROS ROS ED ROS Narrative Denies recent illness. Review of Systems ROS Unobtainable: Denies due to encephalopathy Constitutional Constitutional ED: Denies chills or fever(s) Eyes Eyes: Denies blurry vision ENT ENT ED: Denies ear pain Cardiovascular Cardiovascular: Denies chest pain or palpitations Respiratory/Chest Respiratory/Chest: Denies cough or dyspnea Gastrointestinal Gastrointestinal: Denies abdominal pain or constipation Genitourinary Genitourinary ED: Denies dysuria or hematuria Musculoskeletal Musculoskeletal: Denies arthralgias or back pain Integumentary Denies abscess Neurologic Neurologic: Denies headache(s) Psychiatric Psychiatric: Denies anxiety Endocrine Endocrinology: Denies polydipsia Hematologic/Lymphatic Hematologic/Lymphatic: Denies easy bleeding Allergic/Immunologic Allergic/Immunologic ED: Denies mouth swelling or tongue swelling EXAM Physical Exam Narrative Exam Narrative: Six 7-year-old female vital signs are stable afebrile. She does not look septic toxic. She is in no distress. at bedside. H EENT exam unremarkable. Neck nontender. Lungs are clear. Heart regular rhythm no murmur. Rate about 80. Abdomen soft nontender. Moving all 4 extremities. Neurovascular intact. Specifically right hip nontender. No inguinal lymphadenopathy. Right knee prior knee replacement. Well-healed incision. No effusion or swelling at this time. No redness to the knee. Right ankle is tender to palpation both medially and laterally. There is no significant swelling. She has a very strong palpable DP pulse. She has pain with palpation of the ankle. There is no significant swelling. No cellulitis. It is warm to the touch. Foot is nontender. Normal cap refill. Normal touch sensation. Able to wiggle her toes. Calf is nontender without edema or cords. There is no lymphangitic streaking. Const Vital Signs: 11/21/22 01:14 Temperature 97.4 F L Temperature Source Temporal Pulse Rate 81 Respiratory Rate 16 Blood Pressure 174/84 H Blood Pressure Mean 114 Pulse Ox 98 Oxygen Delivery Method Room Air Positive well nourished and well developed; Negative for cachectic, contractures or unkempt General Appearance ED: well developed and NAD; Negative for unkempt, cachectic or contractures Nutritional Appearance: Negative for cachectic HEENT Reports moist mucous membranes normocephalic and atraumatic; Negative for trauma or tenderness Eyes PERRL General Eye ED: Negative for other Neck full ROM and supple Lymph Lymphatic: Negative for other Chest Wall inspection of chest normal and palpation of chest normal Resp normal respiratory effort, no retractions and clear to auscultation bilaterally Effort and Inspection: Negative for pain with movement Auscultation: Negative for rales, rhonchi or wheezes Cardio regular rate, regular rhythm, S1 normal heart sound, S2 normal heart sound and no murmurs Rate: Negative for bradycardia or tachycardic GI non-tender, non-distended and no masses Inspection: Negative for abdominal distention Auscultation: normoactive bowel sounds Palpation: soft; Negative for tender or guarding Back/Spine no CVA tenderness General Back: Negative for CVA tenderness Cervical Spine: Negative for cervical spine tenderness Thoracic Spine / Upper Back: Negative for thoracic spinal tenderness Lumbar Spine / Lower Back: Negative for lumbar spinal tenderness Extremity normal to inspection Extremity Narrative: Except right ankle is tender to touch both medially and laterally. No bony deformity. Slightly warm. No redness. No septic joint. No swelling. Normal DP pulse. Foot nontender. Neurovascular intact. General Extremety ED: Yes weight-bearing difficulty; Negative for cyanosis or edema General Extremity: weight-bearing difficulty; Negative for cyanosis or edema Neuro oriented x3, CN's II-XII intact bilaterally, moves all extremities and no sensory deficits noted Sensorium / Orientation: alert, oriented to person, oriented to place and oriented to time; Negative for orientation impaired, confused, lethargic or stuporous Motor Exam: strength 5/5 throughout Psych mental status grossly normal Appearance: Negative for unkempt Speech: No other Mood & Affect: Negative for anxious Skin no wounds Lesions: no lesions Rashes: no rashes Trauma: Negative for abrasion, laceration or puncture MDM MDM MDM Narrative Medical decision making narrative: 67-year-old female atraumatic right ankle pain. Clinically there is no cellulitis. It does not look like a septic joint. She has no history of gout and clinically does not look like gout. X-ray shows chronic changes but no fracture or dislocation. I think this is secondary to arthritis. She states she kind of twisted her ankle she put in her shoe and after that is when the plane started. She will be given [place] here for pain. Started on prednisone 40 mg a for 7 days. First dose given here. She is a walker at home. Stressed both to her and her that if this gets red, swollen or fever she needs to return to have it reevaluated if is not improving she needs to follow-up with her primary care physician. Radiography Diagnostic Testing: Right ankle x-ray 3 views interpreted by myself shows no acute abnormality. Arthritis with joint space narrowing. No fracture or dislocation. No significant soft tissue swelling. Differential Diagnosis Differential Diagnosis: Arthritis versus gout versus infection. Clinically does not look infected. Clinically does not look like gout. Its not red. Its not swollen. Discharge Plan Triage Chief Complaint: Lower Extremity Injury ED Provider: Ashwin Valencia Dx/Rx/DC Orders Clinical Impression: Acute right ankle pain, Arthritis Instructions: ED Arthralgia, ED Osteoarthritis Prescriptions: New prednisone 20 mg tablet 40 mg PO DAILY 6 Days Qty: 12 0RF No Action methocarbamol 500 mg tablet 500 mg PO TID tramadol 50 mg tablet 50 mg PO Q6H PRN Cholecalciferol (Vitamin D3) [Vitamin D3] 5,000 UNIT capsule 2 tab PO DAILY prednisone 20 MG tablet 60 mg PO DAILY Qty: 9 0RF Primary Care Provider: Patt Joy Referrals: Patt Joy DO [Primary Care Provider] - 3-5 Days if not improving Activity Restrictions/Additional Instructions: Ice and elevate your ankle to decrease pain and swelling. [place] for pain. Do not drive while taking the pain medication. Make sure you are drinking plenty of water and fruits and vegetables and fiber to prevent constipation. Prednisone 40 mg a day for the next 6 days starting on Monday. Follow-up with your doctor if not improving. Return if this gets red, real swollen, fever or you are feeling worse. At this time there is no signs of infection. Disposition Disposition: Home, Self Care
[2022-11-21] MEDS: HYDROcodone Bitartrate/Apap 5/325 Tablet PO (03:58)
[2022-11-21] MEDS: predniSONE 20 MG Tablet 40 MG PO (03:58)
== END 2022-11-21 04:21 | disposition home or self-care (01) ==
PROVIDERS: Emergency Provider Emergency Medicine; PCP Internal Medicine; Visit Provider Emergency Medicine
DX: M25.571 Pain in right ankle and joints of right foot (principal); M19.90 Unspecified osteoarthritis, unspecified site; Z96.651 Presence of right artificial knee joint
CPT/HCPCS: 73610; 99283

== ENCOUNTER → 2022-12-28 | Outpatient (CLI) | payer MEDICARE, SELFPAY ==
[2022-12-28 15:21] LABS: Absolute Lymphocyte Count 1.59 X10^3/uL (0.83-4.51); Absolute Neutrophil Count 3.3 X10^3/uL (2.0-7.7); Basophil# 0.05 X10^3/uL; Basophil% 0.9 % (0-1); Eosinophil# 0.07 X10^3/uL; Eosinophils% 1.2 % (0-5); Hematocrit 42.2 % (37-47); Hemoglobin 13.6 g/dL (12.0-15.0); Lymphocyte # 1.59 X10^3/ul (0.83-4.51); Mean Corp Hgb Conc 32.2 g/dL (32-36); Mean Corpuscular Hgb 29.8 pg (27.0-32.0); Mean Corpuscular Volume 92.3 fL (81-99); Mean Platelet Vol. 9.3 fl (6.2-12.0); Monocyte# 0.62 X10^3/uL; Monocyte% 10.9 % (0-10); NRBC Flagged by Analyzer 0 % (0-5); Neutrophil # 3.33 X10^3/uL (2.7-7.7); Neutrophil % 58.8 % (47-70); Platelet Count 248 K/mm3 (150-450); RBC Distribution Width SD 44.2 fl (35.1-43.9); Red Blood Count 4.57 M/mm3 (4.2-5.4); White Blood Count 5.7 K/mm3 (4.4-11.0)
[2022-12-28 16:04] LABS: AST(SGOT) 14 U/L (15-37); Alanine Aminotransfer ALT/SGPT 21 U/L (13-56); Albumin, Serum 3.6 g/dL (3.2-5.0); Alkaline Phosphatase 56 U/L (45-117); Anion Gap 2 (5-15); BUN 16 mg/dL (7-18); BUN/Creat Ratio 18.2 RATIO (10-20); Calcium,Total 8.9 mg/dL (8.5-10.1); Chloride 106 mmol/L (98-107); Creatinine, Serum 0.88 mg/dL (0.55-1.02); EST Glomerular Filtration Rate 68 mL/min (>60); Est Glom Filt Rate - Afr Amer 82 mL/min (>60); Globulin 3.7 g/dL (2.2-4.2); Glucose 100 mg/dL (74-106); Potassium 4.3 mmol/L (3.5-5.1); Protein, Total 7.3 g/dL (6.4-8.2); Sodium Level 136 mmol/L (136-145)
== END | disposition home or self-care (01) ==
LOC: MTLAB 13:00
PROVIDERS: PCP Internal Medicine; Referring Provider Internal Medicine Rheumatology; Visit Provider Internal Medicine Rheumatology
DX: M06.4 Inflammatory polyarthropathy (principal); Z79.899 Other long term (current) drug therapy
CPT/HCPCS: 36415; 80053; 85025

== ENCOUNTER → 2023-03-22 | Outpatient (CLI) | payer MEDICARE, SELFPAY ==
[2023-03-22 15:41] LABS: Absolute Lymphocyte Count 1.53 X10^3/uL (0.83-4.51); Absolute Neutrophil Count 2.4 X10^3/uL (2.0-7.7); Basophil# 0.05 X10^3/uL; Eosinophil# 0.18 X10^3/uL; Eosinophils% 3.8 % (0-5); Hematocrit 39.4 % (37-47); Hemoglobin 13.1 g/dL (12.0-15.0); Lymphocyte # 1.53 X10^3/ul (0.83-4.51); Lymphocyte % 31.9 % (19-41); Mean Corp Hgb Conc 33.2 g/dL (32-36); Mean Corpuscular Hgb 30.2 pg (27.0-32.0); Mean Corpuscular Volume 90.8 fL (81-99); Mean Platelet Vol. 9.5 fl (6.2-12.0); Monocyte# 0.61 X10^3/uL; Monocyte% 12.7 % (0-10); NRBC Flagged by Analyzer 0 % (0-5); Neutrophil # 2.41 X10^3/uL (2.7-7.7); Neutrophil % 50.4 % (47-70); Platelet Count 217 K/mm3 (150-450); RBC Distribution Width CV 12.9 % (11.6-14.6); RBC Distribution Width SD 42.5 fl (35.1-43.9); Red Blood Count 4.34 M/mm3 (4.2-5.4); White Blood Count 4.8 K/mm3 (4.4-11.0)
[2023-03-22 16:00] LABS: ALB/GLOB Ratio 1.2 RATIO (0.9-2.4); AST(SGOT) 17 U/L (15-37); Alanine Aminotransfer ALT/SGPT 19 U/L (13-56); Albumin, Serum 3.7 g/dL (3.2-5.0); Alkaline Phosphatase 51 U/L (45-117); Anion Gap 6 (5-15); BUN 14 mg/dL (7-18); Calcium,Total 8.8 mg/dL (8.5-10.1); Chloride 106 mmol/L (98-107); Creatinine, Serum 0.94 mg/dL (0.55-1.02); EST Glomerular Filtration Rate 63 mL/min (>60); Est Glom Filt Rate - Afr Amer 76 mL/min (>60); Globulin 3.2 g/dL (2.2-4.2); Glucose 92 mg/dL (74-106); Potassium 4.1 mmol/L (3.5-5.1); Protein, Total 6.9 g/dL (6.4-8.2); Sodium Level 141 mmol/L (136-145)
== END | disposition home or self-care (01) ==
LOC: MTLAB 11:15
PROVIDERS: PCP Internal Medicine; Referring Provider Internal Medicine Rheumatology; Visit Provider Internal Medicine Rheumatology
DX: M06.4 Inflammatory polyarthropathy (principal); Z79.899 Other long term (current) drug therapy
CPT/HCPCS: 36415; 80053; 85025

== ENCOUNTER 2023-04-18 12:30 | Emergency (ER) | payer MEDICARE, SELFPAY ==
[2023-04-18 12:33] VITALS: BP 191/78; PULSE 78; RESP 16; TEMP 36.6; O2SAT 98; BMI 38.6
[2023-04-18 13:25] VITALS: BMI 39.5
--- NOTE | 2023-04-18 13:45 | CT_ITS ---
STUDY: CT CHEST WITHOUT CONTRAST REASON FOR EXAM: Female, 68 years old. Right rib pain following a recent fall. RADIATION DOSAGE (If Supplied By Facility): CTDIvol = ( 14.78 ) mGy, DLP = ( 488.18 ) mGycm TECHNIQUE: Transaxial imaging was performed without the administration of intravenous contrast material. Individualized dose optimization techniques were used for this CT. COMPARISON: No relevant priors. FINDINGS: CHEST Heterogeneous enlargement of the lower pole of the right lobe of the thyroid. Calcified granuloma in the superior segment of the right lower lobe. Calcified granuloma in the anterior aspect of the right lower lobe. There is no demonstrated pleural abnormality. There are calcifications of the coronary arteries. Normal mediastinum. Normal hilar regions. Normal unenhanced pulmonary arteries. There is atherosclerotic calcification of the aortic arch with tortuosity and elongation of the aortic arch and descending thoracic aorta. There are multi-level degenerative changes of the thoracic spine. Status post cholecystectomy. Calcified splenic granulomas. CT/Chest without Contrast IMPRESSION: No acute abnormality is seen. Electronically Signed: James Price MD at 14:38 EDT ,
--- NOTE | 2023-04-18 13:47 | EX.ED.DYSGE1 ---
HPI History of Present Illness Chief Complaint: Fall Narrative Narrative: Patient is a 68-year-old female who fell, unstable not using her walker and is complaining of right-sided rib/chest pain PFSH PFSH Medical History Cochlear implant in place Hx of cataract Tonsillectomy planned Home Medications Cholecalciferol (Vitamin D3) [Vitamin D3] 2 tab PO DAILY 02/12/20 [History Last Taken Unknown] prednisone 20 mg tablet 60 mg (3 x 20 mg) PO DAILY #9 TABLETS 11/19/20 [Rx Last Taken Unknown] methocarbamol 500 mg tablet 500 mg PO TID 01/19/22 [History Last Taken Unknown] tramadol 50 mg tablet 50 mg PO Q6H PRN pain 01/19/22 [History Last Taken 04/18/23] hydrocodone-acetaminophen 5-325mg 5mg-325mg 1 tab PO Q4H PRN PRN Pain 4 days #14 TABLETS 11/21/22 [Rx Last Taken Unknown] prednisone 20 mg tablet 40 mg (2 x 20 mg) PO DAILY 6 days #12 tabs 11/21/22 [Rx Last Taken Unknown] folic acid 1 mg tablet 1 mg PO DAILY 04/18/23 [History Last Taken 04/18/23] gabapentin 100 mg capsule 100 mg PO .hs 04/18/23 [History Last Taken Unknown] Allergy/AdvReac Type Severity Reaction Status Date / Time No Known Allergies Allergy Verified 04/18/23 12:35 Surgical History History of carpal tunnel release of both wrists Hx of arthroscopy of right knee Hx of cholecystectomy Hx of removal of cyst Social History Smoking Status: Never smoker EXAM Physical Exam Const Vital Signs: 04/18/23 12:33 Temperature 98 F Temperature Source Temporal Pulse Rate 78 Respiratory Rate 16 Blood Pressure 191/78 H Blood Pressure Mean 115 Pulse Ox 98 Oxygen Delivery Method Room Air MDM MDM Radiography Diagnostic Testing: Clinical Impression(s) from Imaging Studies Chest CT 04/18/23 13:45 IMPRESSION: No acute abnormality is seen. Electronically Signed: James Price MD at 14:38 EDT , Discharge Plan Triage Chief Complaint: Fall ED Provider: Regi Bunch Dx/Rx/DC Orders Prescriptions: No Action methocarbamol 500 mg tablet 500 mg PO TID tramadol 50 mg tablet 50 mg PO Q6H PRN (Reason: pain) Cholecalciferol (Vitamin D3) [Vitamin D3] 5,000 UNIT capsule 2 tab PO DAILY prednisone 20 MG tablet 60 mg PO DAILY Qty: 9 0RF prednisone 20 mg tablet 40 mg PO DAILY 6 Days Qty: 12 0RF hydrocodone-acetaminophen 5-325 mg tablet 1 tab PO Q4H PRN PRN (Reason: Pain) 4 Days Qty: 14 0RF folic acid 1 mg tablet 1 mg PO DAILY Patient Comments: TAKE 2 TABLETS BY MOUTH DAILY gabapentin 100 mg capsule 100 mg PO .hs Patient Comments: TAKE 3 CAPSULES BY MOUTH AT NIGHT Primary Care Provider: Patt Joy Referrals: Patt Joy DO [Primary Care Provider] -
--- NOTE | 2023-04-18 14:43 | VDLE_ITS ---
Reason For Study: RLE Swelling RIGHT LEFT GSV is normal. CFV is compressible, spontaneous, phasic, CFV is compressible, spontaneous, phasic, competent, and demonstrates normal competent and demonstrates normal augmentation. augmentation. FV is compressible, spontaneous, phasic, competent and demonstrates normal augmentation. POP V is compressible, spontaneous, phasic, competent and demonstrates normal augmentation. T/P Trunk is compressible. PTV is compressible. RT PerV is compressible. RT SSV is partially compressible with bright intraluminal echoes. Finding is consistent with chronic SVT. Procedure This is a venous duplex using B-mode, color flow and spectral Doppler. Exam performed portable in ED. The exam was diagnostic. A preliminary report was called and/or faxed to [place] - RN responsible for patient. VL/Venous Duplex US, Unilateral Interpretation Summary There is no evidence of right lower extremity deep vein thrombosis. Right great saphenous vein appears patent and compressible segmentally. Right small saphenous vein is part ially compressible with right internal echoes consistent with chronic superficial venous thrombosi s Normal flow patterns left common femoral vein Ordering Physician: Regi Bunch Referring Physician: Patt Joy Performed By: Brent Zafar RVT
--- NOTE | 2023-04-18 14:46 | EDS_ITS ---
HPI History of Present Illness Chief Complaint: Fall Informant: patient Narrative Narrative: Patient is a 68-year-old female presenting for evaluation of right foot pain and right rib pain after fall. Patient states for the past few days she had increased pain and now swelling of her right foot. She has been told she has arthritis all over and in her foot. She was using a walker and then hobbled into the bathroom. She was trying to hobble back when she lost her balance and fell. She landed on her right side on the step up into the shower. She states is made concrete. She hit her right ribs. She denies hitting her head. She denies any loss of conscious. She states she is not on any blood thinners. She does not recall getting the wind knocked out of her. She is mostly complaining of right foot pain which is the same pain she had before the fall. She also notes that her right ribs hurt but her foot hurts more. Patient does see Dr. Boothe for her arthritis. She does not see a radio adjuster. She notes she has been seen in the ER for her foot pain in the past but does not know if this was similar or not. She denies any trauma to her foot. She states it was hurting on the side and now it feels like burning on the top of her foot. She notes that she does have ongoing numbness tingling to her fingers but does not think that she has been diagnosed with neuropathy. No other complaints or concerns at this time. I did call 911 to come in as her is not home at not home today. Patient denies any fever or chills. Chart review shows that patient was seen on 11/21/2022 for right ankle/foot pain. She was treated with a short course of [place] and a burst of prednisone. X-ray of the ankle showed arthritis. Patient had EMG in November 2021 of the upper extremities for numbness and tingling in both hands. Was largely normal with no signs of cervical radiculopathy. [facility] Medical History Cochlear implant in place Hx of cataract Tonsillectomy planned Home Medications Cholecalciferol (Vitamin D3) [Vitamin D3] 2 tab PO DAILY 02/12/20 [History Last Taken Unknown] prednisone 20 mg tablet 60 mg (3 x 20 mg) PO DAILY #9 TABLETS 11/19/20 [Rx Last Taken Unknown] methocarbamol 500 mg tablet 500 mg PO TID 01/19/22 [History Last Taken Unknown] tramadol 50 mg tablet 50 mg PO Q6H PRN pain 01/19/22 [History Last Taken 04/18/23] hydrocodone-acetaminophen 5-325mg 5mg-325mg 1 tab PO Q4H PRN PRN Pain 4 days #14 TABLETS 11/21/22 [Rx Last Taken Unknown] prednisone 20 mg tablet 40 mg (2 x 20 mg) PO DAILY 6 days #12 tabs 11/21/22 [Rx Last Taken Unknown] folic acid 1 mg tablet 1 mg PO DAILY 04/18/23 [History Last Taken 04/18/23] gabapentin 100 mg capsule 100 mg PO .hs 04/18/23 [History Last Taken Unknown] oxycodone 5 mg tablet 5 mg PO Q8H PRN pain 3 days #12 tabs 04/18/23 [Rx Last Taken Unknown] Allergy/AdvReac Type Severity Reaction Status Date / Time No Known Allergies Allergy Verified 04/18/23 12:35 Surgical History History of carpal tunnel release of both wrists Hx of arthroscopy of right knee Hx of cholecystectomy Hx of removal of cyst Social History Smoking Status: Never smoker ROS ROS ED Constitutional Constitutional ED: Denies chills or fever(s) Eyes Eyes: Denies blurry vision Cardiovascular Cardiovascular: Reports chest pain and other Details: right rib pain Respiratory/Chest Respiratory/Chest: Denies cough or dyspnea Gastrointestinal Gastrointestinal: Denies nausea or vomiting Musculoskeletal Musculoskeletal: Reports arthralgias and other Details: right foot pain Integumentary Denies Abrasions or rash Neurologic Neurologic: Reports paresthesias; Denies weakness Psychiatric Psychiatric: Denies anxiety Hematologic/Lymphatic Hematologic/Lymphatic: Denies easy bleeding or easy bruising EXAM Physical Exam Const Vital Signs: 04/18/23 12:33 04/18/23 15:51 Temperature 98 F Temperature Source Temporal Pulse Rate 78 78 Respiratory Rate 16 18 Blood Pressure 191/78 H 159/62 H Blood Pressure Mean 115 94 Pulse Ox 98 99 Oxygen Delivery Method Room Air Room Air Positive well nourished and well developed General Appearance ED: well developed and NAD HEENT Reports TM's clear HEENT Narrative: Cochlear implant in place atraumatic Tympanic Membrane ED: Yes TM's clear Eyes PERRL and EOMs intact bilaterally Neck full ROM General: Negative for tenderness Chest Wall inspection of chest normal Chest Narrative: No chest wall crepitus. No flail chest. Patient does have tenderness to palpation of the right lower ribs along the mid axillary line Resp normal respiratory effort and clear to auscultation bilaterally Effort and Inspection: pain with movement Auscultation: Negative for diminished lung sounds Cardio regular rhythm and no murmurs Rate: regular rate GI normal to inspection, nondistended, normoactive bowel sounds and non-tender Extremity Extremity Narrative: 1+ pedal edema on the right. Tenderness to palpation and with range of motion of the right distal foot but does not localize to a single bone or joint. Calf is soft with no palpable cords. There are some slight asymmetric edema of the right lower extremity compared to the left. Neuro oriented x3 and moves all extremities Psych mental status grossly normal and thought process normal Skin no rashes or lesions noted and no wounds Trauma: Negative for abrasion MDM MDM MDM Narrative Medical decision making narrative: Patient presents to the emergency room for a fall. Fall seem to be associated with worsening right foot pain. She is complaining of right-sided rib pain associate with the fall. CT of the chest obtained to look for signs of rib fracture as well as underlying pulmonary injury. Patient is not hypoxic. She actually is complaining more of pain in her foot which was there before the fall. The pain is more diffuse and she does have swelling. She has good distal pulses. No signs of flail chest or chest wall crepitus on physical exam. CT of the chest does not show any acute process including rib fracture or pneumothorax or pulmonary infiltrate. Venous duplex obtained because of asymmetric swelling and pain of the right lower extremity. This is negative for any acute process. Decision is made to order a x-ray given her pain even though she denies trauma. There is an acute avulsion fracture at the base of the fifth metatarsal. This is interpreted by ER physician as well as radiology. Patient does have pain with palpation of that area. Will be placed in a postop shoe. Patient was given 6 IM morphine and then 5 mg oral oxycodone for pain control the ER. On my evaluation she states her pain is gone from a 10 out of 10 to 6 out of 10. Discussed that I likely would not be able to get the patient pain-free but will send her home with a course of oxycodone. Counseled also on icing elevation. Counseled using incentive spirometer to help reduce risk of pneumonia associated with a rib contusion. Patient and agreeable with plan of care. Is given referral for podiatry for outpatient follow-up. Given return precautions. Patient discharged home in stable condition. Radiography Diagnostic Testing: Clinical Impression(s) from Imaging Studies Chest CT 04/18/23 13:45 IMPRESSION: No acute abnormality is seen. Electronically Signed: James Price MD at 14:38 EDT , Venous Doppler Study 04/18/23 14:43 Interpretation Summary There is no evidence of right lower extremity deep vein thrombosis. Right great saphenous vein appears patent and compressible segmentally. Right small saphenous vein is partially compressible with right internal echoes consistent with chronic superficial venous thrombosis Normal flow patterns left common femoral vein Ordering Physician: Regi Bunch Referring Physician: Patt Joy Performed By: Brent Zafar, T Foot X-Ray 04/18/23 16:03 IMPRESSION: Acute cortical avulsion fracture of the base of fifth metatarsal. Electronically Signed: Beni Robertson MD at 16:25 EDT , Discharge Plan Triage Chief Complaint: Fall ED Provider: Regi Bunch Dx/Rx/DC Orders Clinical Impression: Contusion of rib on right side, Avulsion fracture of metatarsal bone of right foot Instructions: ED Fracture, Foot, ED Rib Contusion or Minor Fracture Prescriptions: New oxycodone 5 mg tablet 5 mg PO Q8H PRN (Reason: pain) 3 Days Qty: 12 0RF No Action methocarbamol 500 mg tablet 500 mg PO TID tramadol 50 mg tablet 50 mg PO Q6H PRN (Reason: pain) Cholecalciferol (Vitamin D3) [Vitamin D3] 5,000 UNIT capsule 2 tab PO DAILY prednisone 20 MG tablet 60 mg PO DAILY Qty: 9 0RF prednisone 20 mg tablet 40 mg PO DAILY 6 Days Qty: 12 0RF hydrocodone-acetaminophen 5-325 mg tablet 1 tab PO Q4H PRN PRN (Reason: Pain) 4 Days Qty: 14 0RF folic acid 1 mg tablet 1 mg PO DAILY Patient Comments: TAKE 2 TABLETS BY MOUTH DAILY gabapentin 100 mg capsule 100 mg PO .hs Patient Comments: TAKE 3 CAPSULES BY MOUTH AT NIGHT Primary Care Provider: Patt Joy Referrals: Patt Joy DO [Primary Care Provider] - Jagdish Garcia DPM [Med Staff - Active Staff] - As soon as possible Activity Restrictions/Additional Instructions: Stop taking tramadol if you are taking the oxycodone prescribed today. Only take one of the other. Follow-up with podiatry. Continue use your walker if you do not have another fall. You may also take Tylenol with this. As we discussed you can use [id number] Salonpas/Lidoderm patches (I recommend 4% extra strength patches). You have a small pole fracture at the base of your fifth foot bone (metatarsal) likely this is why you are having so much foot pain. Use your incentive spirometer while sitting multiple times an hour to prevent pneumonia associated with bruising of your ribs. Your CT did not show any rib fractures. Disposition Disposition: Home, Self Care Discharge Date/Time: 04/18/23 17:30
[2023-04-18] MEDS: morphine 8 MG/ML Syringe 6 MG IV (14:52)
[2023-04-18] MEDS: oxyCODONE 5 MG Tablet PO (15:49)
[2023-04-18 15:51] VITALS: BP 159/62; PULSE 78; RESP 18; O2SAT 99
--- NOTE | 2023-04-18 16:03 | RAD_ITS ---
STUDY: X-RAY - RIGHT FOOT CLINICAL: Female, 68 years old. pain, swelling TECHNIQUE: 3 view(s) of the foot. COMPARISON: None. FINDINGS: Normal talus, and tarsal bones. Small plantar calcaneal spur. Normal visualized subtalar, talonavicular, calcaneocuboid, tarsal and tarsometatarsal articulations. There is an acute avulsion fracture of the base of the fifth metatarsal with mild separation of fracture fragments Normal metatarsophalangeal joint of the great toe. Normal tibial and fibular sesamoid bones. Normal interphalangeal joint of the great toe. Normal phalanges of the great toe. Normal second through fifth metatarsophalangeal joints. Normal interphalangeal joints and phalanges of the lesser toes. The soft tissue structures are unremarkable. RAD/Foot min 3 Views IMPRESSION: Acute cortical avulsion fracture of the base of fifth metatarsal. Electronically Signed: Beni Robertson MD at 16:25 EDT ,
== END 2023-04-18 17:30 | disposition home or self-care (01) ==
PROVIDERS: Emergency Provider Emergency Medicine; PCP Internal Medicine; Visit Provider Emergency Medicine
DX: S20.211A Contusion of right front wall of thorax, initial encounter (principal); S92.353A Displaced fracture of fifth metatarsal bone, unspecified foot, initial encounter for closed fracture; W10.9XXA Fall (on) (from) unspecified stairs and steps, initial encounter; S92.901A Unspecified fracture of right foot, initial encounter for closed fracture; M79.671 Pain in right foot
CPT/HCPCS: 71250; 73630; 93971; 96374; 99285; A4216

== ENCOUNTER 2023-06-03 15:40 | Emergency (ER) | payer MEDICARE, SELFPAY ==
[2023-06-03 15:41] VITALS: BP 134/97; PULSE 66; RESP 14; TEMP 36.4; O2SAT 99; BMI 37.3
--- NOTE | 2023-06-03 15:50 | RAD_ITS ---
STUDY: X-RAY - LEFT ANKLE REASON FOR EXAM: Female, 68 years old. SWELLING TECHNIQUE: 3 view(s) of the ankle. COMPARISON: None. FINDINGS: Normal visualized distal tibia and fibula. Normal medial and lateral malleoli. Normal tibiotalar articulation and ankle mortise. Normal visualized talus and calcaneus. Moderate-sized plantar and posterior calcaneal enthesophytes. The visualized subtalar, talonavicular, calcaneocuboid and tarsal articulations are normal. Lateral soft tissue swelling. RAD/Ankle min 3 Views IMPRESSION: No acute fracture or dislocation. Lateral soft tissue swelling. Electronically Signed: Johan Tejada MD at 16:36 EDT ,
--- NOTE | 2023-06-03 16:55 | EDS_ITS ---
HPI History of Present Illness Chief Complaint: Lower Extremity Injury Informant: patient Narrative Narrative: 2-3 days gradual onset pain, swelling, redness. Has not left ankle without injury. Hurts to walk on. Very sensitive to touch. never had this before. Has a history of arthritis in knees especially, but never had it in her ankles or big toes. No history of gout or pseudogout that she knows of. Denies any fevers or chills. Denies any foreign bodies, injuries, or any other obvious reason for this pain. She states it came on gradually, mild at first but has gotten more severe. Currently wearing an orthotic boot right foot/ankle because of chipping a bone in her foot. She has been be able to bear weight on that lately, thinks maybe she is favoring it. [facility] Medical History Cochlear implant in place Hx of cataract Tonsillectomy planned Home Medications Cholecalciferol (Vitamin D3) [Vitamin D3] 2 tab PO DAILY 02/12/20 [History Last Taken Unknown] methocarbamol 500 mg tablet 500 mg PO TID 01/19/22 [History Last Taken Unknown] tramadol 50 mg tablet 50 mg PO Q6H PRN pain 01/19/22 [History Last Taken 04/18/23] hydrocodone-acetaminophen 5-325mg 5mg-325mg 1 tab PO Q4H PRN PRN Pain 4 days #14 TABLETS 11/21/22 [Rx Last Taken Unknown] folic acid 1 mg tablet 1 mg PO DAILY 04/18/23 [History Last Taken 04/18/23] gabapentin 100 mg capsule 100 mg PO .hs 04/18/23 [History Last Taken Unknown] oxycodone 5 mg tablet 5 mg PO Q8H PRN pain 3 days #12 tabs 04/18/23 [Rx Last Taken Unknown] cephalexin 500 mg capsule 500 mg PO Q6 #40 CAPSULES 06/03/23 [Rx Last Taken Unknown] prednisone 20 mg tablet 40 mg (2 x 20 mg) PO DAILY 5 days #10 tabs 06/03/23 [Rx Last Taken Unknown] Allergy/AdvReac Type Severity Reaction Status Date / Time No Known Allergies Allergy Verified 06/03/23 15:41 Surgical History History of carpal tunnel release of both wrists Hx of arthroscopy of right knee Hx of cholecystectomy Hx of removal of cyst Social History Smoking Status: Never smoker ROS ROS ED Constitutional Constitutional ED: Denies chills or fever(s) Musculoskeletal Musculoskeletal: Reports extremity pain; Denies neck pain Integumentary Reports as per HPI; Denies Abrasions, rash or wounds Neurologic Neurologic: Denies paresthesias or weakness EXAM Physical Exam Const Vital Signs: 06/03/23 15:41 Temperature 97.6 F L Temperature Source Temporal Pulse Rate 66 Respiratory Rate 14 Blood Pressure 134/97 H Blood Pressure Mean 109 Pulse Ox 99 Oxygen Delivery Method Room Air Positive well nourished, well developed and obese General Appearance ED: well developed and NAD Nutritional Appearance: obese Neck full ROM and supple Back/Spine normal ROM and normal to inspection Extremity Extremity Narrative: Painful short arc range of motion active or passive left ankle. Erythematous, warm, mildly diffusely swollen more prominent anterior to the lateral malleolus. Very tender to palpation here. No lymphangitis no abscess. No inguinal lymphadenopathy. Does not extend into the foot at all. Right foot/ankle in an orthotic boot device. Neuro oriented x3, no focal motor deficits and no sensory deficits noted Sensorium / Orientation: alert Psych mental status grossly normal and thought process normal Skin no wounds Rashes: no rashes MDM MDM MDM Narrative Medical decision making narrative: Three-view x-ray series of the left ankle were obtained and on my interpretation shows soft tissue swelling but no acute bony abnormality. My concern is that this is an atraumatic joint inflammation versus infection, this could be gout or pseudogout, or it could be a septic arthritis. Given that she has never had go ut or pseudogout before, arthrocentesis as well as blood work is indicated in order to differentiate; she is amenable to that and understands. Blood work obtained, but we were not able to obtain synovial fluid see the procedure note. CRP elevated, uric acid in the normal range, no significant leukocytosis, ESR is normal. This is not diagnostic, it does not rule in or rule out septic arthritis or crystal induced arthritis or noncrystal induced inflammatory arthritis. We will place the patient on antibiotics and prednisone and advised close outpatient follow-up with orthopedics or return to the ER if symptoms worsen. She is comfortable with that plan. She uses a walker to get around, we will place her in an Piotr wrap. Discussed with orthopedics, agreeable with that plan. Lab Data Attestation: I reviewed the patient's lab results. Labs: Laboratory Results - last 24 hr 06/03/23 17:10 WBC 9.0 RBC 4.53 Hgb 13.7 Hct 41.1 MCV 90.7 MCH 30.2 MCHC 33.3 RDW Std Deviation 42.4 RDW Coeff of Oly 12.8 Plt Count 223 MPV 9.2 Immature Gran % (Auto) 0.200 Neut % (Auto) 74.8 H Lymph % (Auto) 12.5 L [place] % (Auto) 12.1 H Eos % (Auto) 0.2 Baso % (Auto) 0.2 Absolute Neuts (auto) 6.8 Absolute Lymphs (auto) 1.13 Nucleated RBC % 0 ESR 15 Sodium 136 Potassium 3.8 Chloride 105 Carbon Dioxide 29.0 Anion Gap 2 L BUN 13 Creatinine 0.93 Estim Creat Clear Calc 74.40 Est GFR (MDRD) Af Amer 77 Est GFR (MDRD) Non-Af 63 BUN/Creatinine Ratio 14.0 Glucose 113 H Uric Acid 3.7 Calcium 8.7 C-React Prot Ext Range 17.00 H Radiography Diagnostic Testing: Clinical Impression(s) from Imaging Studies Ankle X-Ray 06/03/23 15:50 IMPRESSION: No acute fracture or dislocation. Lateral soft tissue swelling. Electronically Signed: Johan Tejada MD at 16:36 EDT , Management Discussion w/another healthcare provider: Food Service Representative (Valentino Blankenship) Procedures Other Procedures Procedure(s): Left ankle arthrocentesis: Locally anesthetized with 1 cc 1% lidocaine with epinephrine, anterior medial aspect just medial to the tibialis anterior. Prepped and draped in sterile fashion initially with isopropanol then with chlorhexidine, attempted to enter the joint with an 18-gauge needle, despite multiple attempts unable to enter the joint space, there is some minor bleeding that was well controlled, patient was in significant discomfort with the redirection to the needle so we aborted and were not able to obtain any joint fluid. Discharge Plan Triage Chief Complaint: Lower Extremity Injury ED Provider: Ramu Romero Dx/Rx/DC Orders Clinical Impression: Arthritis of ankle, left Instructions: What Is Arthritis?, Eating to Prevent Gout, ED Gout Prescriptions: New cephalexin [cephalexin] 500 mg capsule 500 mg PO Q6 Qty: 40 0RF Continued methocarbamol 500 mg tablet 500 mg PO TID tramadol 50 mg tablet 50 mg PO Q6H PRN (Reason: pain) Cholecalciferol (Vitamin D3) [Vitamin D3] 5,000 UNIT capsule 2 tab PO DAILY hydrocodone-acetaminophen 5-325 mg tablet 1 tab PO Q4H PRN PRN (Reason: Pain) 4 Days Qty: 14 0RF folic acid 1 mg tablet 1 mg PO DAILY Patient Comments: TAKE 2 TABLETS BY MOUTH DAILY gabapentin 100 mg capsule 100 mg PO .hs Patient Comments: TAKE 3 CAPSULES BY MOUTH AT NIGHT oxycodone 5 mg tablet 5 mg PO Q8H PRN (Reason: pain) 3 Days Qty: 12 0RF prednisone 20 mg tablet 40 mg PO DAILY 5 Days Qty: 10 0RF Discontinued prednisone 20 MG tablet 60 mg PO DAILY Qty: 9 0RF Primary Care Provider: Patt Joy Referrals: Patt Joy DO [Primary Care Provider] - Jagdish Jim DO [Med Staff - Active Staff] - 3-5 Days if not improving Disposition Disposition: Home, Self Care
[2023-06-03] MEDS: Ibuprofen 600 MG Tablet PO (17:10)
[2023-06-03 17:28] LABS: Absolute Lymphocyte Count 1.13 X10^3/uL (0.83-4.51); Absolute Neutrophil Count 6.8 X10^3/uL (2.0-7.7); Basophil# 0.02 X10^3/uL; Basophil% 0.2 % (0-1); Eosinophil# 0.02 X10^3/uL; Eosinophils% 0.2 % (0-5); Hematocrit 41.1 % (37-47); Hemoglobin 13.7 g/dL (12.0-15.0); Lymphocyte # 1.13 X10^3/ul (0.83-4.51); Lymphocyte % 12.5 % (19-41); Mean Corp Hgb Conc 33.3 g/dL (32-36); Mean Corpuscular Hgb 30.2 pg (27.0-32.0); Mean Corpuscular Volume 90.7 fL (81-99); Mean Platelet Vol. 9.2 fl (6.2-12.0); Monocyte# 1.09 X10^3/uL; Monocyte% 12.1 % (0-10); NRBC Flagged by Analyzer 0 % (0-5); Neutrophil # 6.76 X10^3/uL (2.7-7.7); Neutrophil % 74.8 % (47-70); Platelet Count 223 K/mm3 (150-450); RBC Distribution Width CV 12.8 % (11.6-14.6); RBC Distribution Width SD 42.4 fl (35.1-43.9); Red Blood Count 4.53 M/mm3 (4.2-5.4)
[2023-06-03 17:29] LABS: Erythrocyte Sedimentation Rate 15 mm/hr (0-30)
[2023-06-03 17:45] LABS: Anion Gap 2 (5-15); BUN 13 mg/dL (7-18); Calcium,Total 8.7 mg/dL (8.5-10.1); Chloride 105 mmol/L (98-107); Creatinine, Serum 0.93 mg/dL (0.55-1.02); EST Glomerular Filtration Rate 63 mL/min (>60); Est Glom Filt Rate - Afr Amer 77 mL/min (>60); Glucose 113 mg/dL (74-106); Potassium 3.8 mmol/L (3.5-5.1); Sodium Level 136 mmol/L (136-145); Uric Acid 3.7 mg/dL (2.6-6.0)
[2023-06-03] MEDS: predniSONE 20 MG Tablet 40 MG PO (18:30)
[2023-06-03] MEDS: Cephalexin 250 MG Capsule 500 MG PO (18:30)
== END 2023-06-03 18:41 | disposition home or self-care (01) ==
PROVIDERS: Emergency Provider Emergency Medicine; PCP Internal Medicine; Visit Provider Emergency Medicine
DX: M19.072 Primary osteoarthritis, left ankle and foot (principal); Z96.21 Cochlear implant status; Z90.49 Acquired absence of other specified parts of digestive tract
CPT/HCPCS: 20605; 20610; 73610; 80048; 84550; 85025; 85652; 86140; 99283

== ENCOUNTER → 2023-06-16 | Outpatient (CLI) | payer MEDICARE, SELFPAY ==
[2023-06-16 15:14] LABS: Absolute Lymphocyte Count 1.37 X10^3/uL (0.83-4.51); Basophil# 0.05 X10^3/uL; Basophil% 0.9 % (0-1); Eosinophil# 0.25 X10^3/uL; Eosinophils% 4.7 % (0-5); Hematocrit 42.9 % (37-47); Hemoglobin 13.4 g/dL (12.0-15.0); Lymphocyte # 1.37 X10^3/ul (0.83-4.51); Lymphocyte % 25.6 % (19-41); Mean Corp Hgb Conc 31.2 g/dL (32-36); Mean Corpuscular Volume 92.9 fL (81-99); Mean Platelet Vol. 9.1 fl (6.2-12.0); Monocyte# 0.69 X10^3/uL; Monocyte% 12.9 % (0-10); NRBC Flagged by Analyzer 0 % (0-5); Neutrophil # 2.98 X10^3/uL (2.7-7.7); Neutrophil % 55.5 % (47-70); Platelet Count 271 K/mm3 (150-450); RBC Distribution Width CV 12.8 % (11.6-14.6); RBC Distribution Width SD 43.7 fl (35.1-43.9); Red Blood Count 4.62 M/mm3 (4.2-5.4); White Blood Count 5.4 K/mm3 (4.4-11.0)
[2023-06-16 15:45] LABS: AST(SGOT) 11 U/L (15-37); Alanine Aminotransfer ALT/SGPT 19 U/L (13-56); Albumin, Serum 3.6 g/dL (3.2-5.0); Alkaline Phosphatase 51 U/L (45-117); Anion Gap 5 (5-15); BUN 14 mg/dL (7-18); Calcium,Total 9.5 mg/dL (8.5-10.1); Chloride 106 mmol/L (98-107); Creatinine, Serum 0.94 mg/dL (0.55-1.02); EST Glomerular Filtration Rate 63 mL/min (>60); Est Glom Filt Rate - Afr Amer 76 mL/min (>60); Globulin 3.7 g/dL (2.2-4.2); Glucose 104 mg/dL (74-106); Protein, Total 7.3 g/dL (6.4-8.2); Sodium Level 139 mmol/L (136-145)
== END | disposition home or self-care (01) ==
LOC: MTLAB 11:40
PROVIDERS: PCP Internal Medicine; Referring Provider Internal Medicine Rheumatology; Visit Provider Internal Medicine Rheumatology
DX: M06.4 Inflammatory polyarthropathy (principal); M79.7 Fibromyalgia; Z79.899 Other long term (current) drug therapy
CPT/HCPCS: 36415; 80053; 85025

== ENCOUNTER → 2023-09-08 | Outpatient (CLI) | payer MEDICARE, SELFPAY ==
[2023-09-08 12:46] LABS: Absolute Lymphocyte Count 1.24 X10^3/uL (0.83-4.51); Absolute Neutrophil Count 2.5 X10^3/uL (2.0-7.7); Basophil# 0.04 X10^3/uL; Basophil% 0.9 % (0-1); Eosinophil# 0.23 X10^3/uL; Hematocrit 39.7 % (37-47); Hemoglobin 12.7 g/dL (12.0-15.0); Lymphocyte # 1.24 X10^3/ul (0.83-4.51); Lymphocyte % 27.1 % (19-41); Mean Corpuscular Hgb 29.5 pg (27.0-32.0); Mean Corpuscular Volume 92.1 fL (81-99); Monocyte# 0.56 X10^3/uL; Monocyte% 12.3 % (0-10); NRBC Flagged by Analyzer 0 % (0-5); Neutrophil # 2.49 X10^3/uL (2.7-7.7); Neutrophil % 54.5 % (47-70); Platelet Count 261 K/mm3 (150-450); RBC Distribution Width CV 14.6 % (11.6-14.6); RBC Distribution Width SD 49.3 fl (35.1-43.9); Red Blood Count 4.31 M/mm3 (4.2-5.4); White Blood Count 4.6 K/mm3 (4.4-11.0)
[2023-09-08 13:15] LABS: ALB/GLOB Ratio 1.1 RATIO (0.9-2.4); AST(SGOT) 17 U/L (15-37); Alanine Aminotransfer ALT/SGPT 21 U/L (13-56); Albumin, Serum 3.7 g/dL (3.2-5.0); Alkaline Phosphatase 55 U/L (45-117); Anion Gap 4 (5-15); BUN 13 mg/dL (7-18); BUN/Creat Ratio 14.2 RATIO (10-20); Calcium,Total 9.3 mg/dL (8.5-10.1); Chloride 108 mmol/L (98-107); Creatinine, Serum 0.92 mg/dL (0.55-1.02); EST Glomerular Filtration Rate 64 mL/min (>60); Est Glom Filt Rate - Afr Amer 78 mL/min (>60); Globulin 3.4 g/dL (2.2-4.2); Glucose 93 mg/dL (74-106); Potassium 3.8 mmol/L (3.5-5.1); Protein, Total 7.1 g/dL (6.4-8.2); Sodium Level 141 mmol/L (136-145)
== END | disposition home or self-care (01) ==
LOC: MTLAB 11:21
PROVIDERS: PCP Internal Medicine; Referring Provider Internal Medicine Rheumatology; Visit Provider Internal Medicine Rheumatology
DX: M06.4 Inflammatory polyarthropathy (principal); Z79.899 Other long term (current) drug therapy; M79.7 Fibromyalgia; M18.0 Bilateral primary osteoarthritis of first carpometacarpal joints; M17.0 Bilateral primary osteoarthritis of knee
CPT/HCPCS: 36415; 80053; 85025

== ENCOUNTER → 2023-12-11 | Outpatient (CLI) | payer MEDICARE, SELFPAY ==
[2023-12-11 10:45] LABS: Absolute Lymphocyte Count 1.65 X10^3/uL (0.83-4.51); Absolute Neutrophil Count 2.8 X10^3/uL (2.0-7.7); Basophil# 0.04 X10^3/uL; Basophil% 0.7 % (0-1); Eosinophil# 0.17 X10^3/uL; Eosinophils% 3.1 % (0-5); Hematocrit 38.5 % (37-47); Hemoglobin 12.6 g/dL (12.0-15.0); Lymphocyte # 1.65 X10^3/ul (0.83-4.51); Lymphocyte % 30.4 % (19-41); Mean Corp Hgb Conc 32.7 g/dL (32-36); Mean Corpuscular Volume 94.8 fL (81-99); Mean Platelet Vol. 8.8 fl (6.2-12.0); Monocyte# 0.76 X10^3/uL; NRBC Flagged by Analyzer 0 % (0-5); Neutrophil # 2.79 X10^3/uL (2.7-7.7); Neutrophil % 51.6 % (47-70); Platelet Count 282 K/mm3 (150-450); RBC Distribution Width CV 14.4 % (11.6-14.6); RBC Distribution Width SD 49.1 fl (35.1-43.9); Red Blood Count 4.06 M/mm3 (4.2-5.4); White Blood Count 5.4 K/mm3 (4.4-11.0)
[2023-12-11 11:13] LABS: ALB/GLOB Ratio 1.1 RATIO (0.9-2.4); AST(SGOT) 18 U/L (15-37); Alanine Aminotransfer ALT/SGPT 28 U/L (13-56); Albumin, Serum 3.7 g/dL (3.2-5.0); Alkaline Phosphatase 44 U/L (45-117); Anion Gap 5 (5-15); BUN 19 mg/dL (7-18); BUN/Creat Ratio 20.4 RATIO (10-20); Calcium,Total 8.6 mg/dL (8.5-10.1); Chloride 105 mmol/L (98-107); Cholesterol 186 mg/dL (200); Creatinine, Serum 0.93 mg/dL (0.55-1.02); EST Glomerular Filtration Rate 63 mL/min (>60); Est Glom Filt Rate - Afr Amer 77 mL/min (>60); Globulin 3.3 g/dL (2.2-4.2); Glucose 106 mg/dL (74-106); High Density Lipoprotein 58 mg/dL; Potassium 4.1 mmol/L (3.5-5.1); Sodium Level 138 mmol/L (136-145); Thyroid Stim Hormone (TSH) 1.37 uIU/mL (0.358-3.74); Triglycerides 53 mg/dL; Very Low Density Lipoprotein 11 mg/dL (5-40)
== END | disposition home or self-care (01) ==
PROVIDERS: PCP Internal Medicine; Referring Provider Internal Medicine Rheumatology; Visit Provider Internal Medicine Rheumatology
DX: M06.4 Inflammatory polyarthropathy (principal); Z79.899 Other long term (current) drug therapy; E78.00 Pure hypercholesterolemia, unspecified; E55.9 Vitamin D deficiency, unspecified
CPT/HCPCS: 36415; 80053; 80061; 82306; 84443; 85025

== ENCOUNTER → 2023-12-26 | Outpatient (CLI) | payer MEDICARE, SELFPAY ==
--- NOTE | 2023-12-26 09:55 | BI_ITS ---
MAMMOGRAPHY - BILATERAL SCREENING REASON FOR EXAM: Female, 68 years old. Routine annual screening examination. PERTINENT HISTORY: Sisters with breast cancer. TECHNIQUE: Digital bilateral breast amy (3D mammographic acquisition) in the CC and MLO projections. 2-D mediolateral oblique (MLO) and craniocaudad (CC) views of both breasts were obtained. CAD: Full Field Digital Mammography with Computer Added Detection was performed. COMPARISON: Comparison is made with prior study dated March 18, 2021 and June 19, 2018. FINDINGS: Breast Composition: There are scattered areas of fibroglandular density. There are no dominant masses or suspicious calcifications. No other significant abnormalities are identified. There has been no significant change since the prior study. BI/SCRN MAMM (CAD)W/AMY BILAT IMPRESSION: Stable bilateral screening mammogram. Yearly follow-up mammogram recommended. (A) ASSESSMENT CATEGORY: BIRADS Category 1: Negative. A letter regarding these results will be sent to the patient by the facility within 30 days. Approximately 10% of breast cancers are not detected by mammography. A normal mammogram should not delay biopsy of a clinically suspicious abnormality. [id number] Electronically Signed: James Price MD at 11:28 EDT ,
--- NOTE | 2023-12-26 10:00 | BD_ITS ---
STUDY: DUAL ENERGY X-RAY ABSORPTIOMETRY / DXA REASON FOR EXAM: Female, 68 years old. 733.00OsteoporosisBONE DENSITY REASON FOR EXAM TECHNIQUE: Bone Mineral Density (BMD) measurements of lumbar spine and bilateral hips were obtained. COMPARISON: Comparison is made with prior study March 18, 2021. FINDINGS: Lumbar Spine (L1-L4): g/cm2 (0.991) / T-score (-0.5) / Z-score (1.6) Findings are suggestive of normal bone density with a low fracture risk. Left Femur Total: g/cm2 (0.559) / T-score (-3.1) / Z-score (-1.6) Left Femoral Neck: g/cm2 (0.381) / T-score (-4.2) / Z-score (-2.4) Right Femur Total: g/cm2 (0.626) / T-score (-2.6) / Z-score (-1.0) Right Femoral Neck: g/cm2 (0.382) / T-score (-4.2) / Z-score (-2.4) The T-Scores on the most recent prior examination were: Lumbar Spine (L1-L4): There has been improvement of bone density since the previous examination. Left Femur Total: which represents a worsening of 2.9%. Right Femur Total: which represents an improvement of percent. BD/Dexa Bone Density Study IMPRESSION: The patient is considered osteoporotic as outlined below according to World Stevenson Organization (WHO) criteria with a high fracture risk. There has been improvement of bone density since the previous examination. Reference Information: The T-score is the number of standard deviations above or below the standard which is normal for young adults at their peak bone mineral density. The World Health Organization (WHO) interprets the T-scores as follows: Above -1 Normal bone density Between -1 and -2.5 Osteopenia Equal to / or below -2.5 Osteoporosis As a practical clinical guideline, osteopenia may be graded as follows: Mild -1 through -1.5 Moderate -1.6 through -2.0 Severe -2.1 through -2.4 The Z-score is the number of standard deviations above or below age-matched controls. A Z-score of less than -1.5 would be considered abnormal. References: 1. NIH Osteoporosis and Related Bone Diseases www osteo.org 2. International Society for Clinical Densitometry www iscd.org 3. National Osteoporosis Foundation www nof.org Electronically Signed: James Price MD at 9:19 EDT ,
== END | disposition home or self-care (01) ==
LOC: OPBI 09:55
PROVIDERS: PCP Internal Medicine; Referring Provider Internal Medicine; Visit Provider Internal Medicine
DX: Z12.31 Encounter for screening mammogram for malignant neoplasm of breast (principal); M81.0 Age-related osteoporosis without current pathological fracture; Z80.3 Family history of malignant neoplasm of breast
CPT/HCPCS: 77063; 77067; 77080

== ENCOUNTER → 2024-03-06 | Outpatient (CLI) | payer MEDICARE, SELFPAY ==
[2024-03-06 12:21] LABS: Absolute Lymphocyte Count 1.41 X10^3/uL (0.83-4.51); Absolute Neutrophil Count 2.3 X10^3/uL (2.0-7.7); Basophil# 0.04 X10^3/uL; Basophil% 0.9 % (0-1); Eosinophil# 0.17 X10^3/uL; Eosinophils% 3.8 % (0-5); Hematocrit 36.8 % (37-47); Hemoglobin 11.9 g/dL (12.0-15.0); Lymphocyte # 1.41 X10^3/ul (0.83-4.51); Lymphocyte % 31.8 % (19-41); Mean Corp Hgb Conc 32.3 g/dL (32-36); Mean Corpuscular Hgb 30.9 pg (27.0-32.0); Mean Corpuscular Volume 95.6 fL (81-99); Mean Platelet Vol. 9.2 fl (6.2-12.0); Monocyte# 0.51 X10^3/uL; Monocyte% 11.5 % (0-10); NRBC Flagged by Analyzer 0 % (0-5); Neutrophil # 2.29 X10^3/uL (2.7-7.7); Neutrophil % 51.5 % (47-70); Platelet Count 238 K/mm3 (150-450); RBC Distribution Width CV 14.3 % (11.6-14.6); RBC Distribution Width SD 49.1 fl (35.1-43.9); Red Blood Count 3.85 M/mm3 (4.2-5.4); White Blood Count 4.4 K/mm3 (4.4-11.0)
[2024-03-06 12:47] LABS: ALB/GLOB Ratio 1.3 RATIO (0.9-2.4); AST(SGOT) 19 U/L (15-37); Alanine Aminotransfer ALT/SGPT 22 U/L (13-56); Alkaline Phosphatase 36 U/L (45-117); Anion Gap 7 (5-15); BUN 15 mg/dL (7-18); BUN/Creat Ratio 17.1 RATIO (10-20); Calcium,Total 9.2 mg/dL (8.5-10.1); Chloride 106 mmol/L (98-107); Cholesterol 188 mg/dL (200); Creatinine, Serum 0.88 mg/dL (0.55-1.02); EST Glomerular Filtration Rate 68 mL/min (>60); Est Glom Filt Rate - Afr Amer 82 mL/min (>60); Glucose 106 mg/dL (74-106); High Density Lipoprotein 61 mg/dL; Potassium 3.9 mmol/L (3.5-5.1); Sodium Level 140 mmol/L (136-145); Triglycerides 67 mg/dL; Very Low Density Lipoprotein 13 mg/dL (5-40)
== END | disposition home or self-care (01) ==
LOC: MTLAB 09:49
PROVIDERS: PCP Internal Medicine; Referring Provider Internal Medicine Rheumatology; Visit Provider Internal Medicine Rheumatology
DX: M06.4 Inflammatory polyarthropathy (principal); Z79.899 Other long term (current) drug therapy; M79.7 Fibromyalgia; M18.0 Bilateral primary osteoarthritis of first carpometacarpal joints; M17.0 Bilateral primary osteoarthritis of knee; M47.897 Other spondylosis, lumbosacral region; M21.40 Flat foot [pes planus] (acquired), unspecified foot; E78.00 Pure hypercholesterolemia, unspecified
CPT/HCPCS: 36415; 80053; 80061; 85025

== ENCOUNTER 2024-05-09 14:03 | Outpatient (RCR) | payer MEDICARE, SELFPAY ==
--- NOTE | 2024-05-10 07:41 | HP.PTEVAL ---
Patient's Visit Information Visit Information Visit Information: ORION CONNELL is a 69 year old F referred to Physical Therapy by Dr. Negro Johnson DO with a diagnosis of ILIOTIBIAL BAND SYNDROME. Date of Evaluation: 05/09/24 Physical Therapist: Bjorn Mckeon PT, Cert MDT, OCS Visit Plan Frequency: 2x /Week Duration: 4 Weeks Plan: H/O TKR 4 YEARS AGO PT INTERVTIONS MODALITIES FOR PAIN , MANUAL THERAPY GENTLE STM /STICK ,GRADED ROM/STRENGTHENING HIP/KNEE AND FUNCTIONAL STRENGTHENING Subjective Subjective: This 69 y/o female presents to physical therapy with right knee and hip pain. Patient developed knee and hip pain~ 2 weeks . Patient thinks aggravated pain ascended/descended steps . Patient has had right TKR [address] did x-rays TKA looked good. Possible IT band and hamstring tendonitis. Patient reports taking tramadol for medication. Recommended brace. Pain located global knee to thigh . Aggravating factors walking extended ,stairs painful unable to knee /squat. Alleviating factors heat. Patient denies paresthesia/tingling ,occasionally side of leg. Patient condition affects QOL and function and walking. Patient pain affects working around house. Patient uses [employer] if walks long distances. pain affects sleeping.Patients goals to walk normal without pain. SOCIAL: VOCATION:retired Pain Right Knee: Pain Intensity (Out of 10): 4 Pain Intensity Range: 10 Right Lower Extremity: Pain Intensity (Out of 10): 5 Pain Intensity Range: 10 Comment: thigh Objective Objective: POSTURE: forward posture trunk GAIT: ambulates with forward posture decrease stance time RLE antalgic gait with fww PALAPTION: tender rectus femoris , medial/lateral knee global and and lateral hip NEURO: denies paresthesia /tingling AROM: supine knee flexion 5-105 degrees ,hip flexion 100 degrees MMT: ( peak force) Quads 20.8 ,hamstrings 19 .9 ,hip flexion 14.9 ,hip abduction 0 LUMBAR ROM: flexion mod loss ,extension severe loss pain in back ,side glides min.mod loss \ Special Tests R Hip Scour: Negative R Hip LEÓN - Intraarticular Pathology: Negative R Knee Valgus - MCL: Negative R Knee Varus - LCL: Negative Balance/Special Test Scores Lower Extremity Functional Score: 7 Goals Goal 1:: Patient to be I HEP hip /knee Goal Time Frame: 4-6 Weeks Goal 2:: Patient to demonstrate 40% improvement with less pain and improved gait Goal Time Frame: 4-6 Weeks Goal 3:: Patient to improve strength quads/hams and hip by 5 -10# to improve gait. Goal Time Frame: 4-6 Weeks Goal 4:: Patient to improve LFES score by 5 points to improve QOL Goal Time Frame: 4-6 Weeks Goal 5:: Patient to improve quality of gait with less antalgic gait 50%b of time with least restrictive device Goal Time Frame: 6-8 Weeks Rehabilitation Potential Physical Therapy Diagnosis: This patient has right and hip pain with tender rectus femoris hip flexor ,I T BAND ,Quadriceps,weakness hip and knee impairs gait and function thus benefit from Skilled PT Rehabilitation Potential: Fair Anticipated Interventions Patient/Client Instruction: Educate patient on: Condition and Plan of Care For the Purpose of:: To decrease pain, To increase ROM, To improve muscle performance and motor function, To improve ability to perform ADL's, To increase tolerance to activity/condition/position, To improve ability of physical actions for home/community/work/leisure, To improve health of tissue, To decrease soft tissue restriction, To increase flexibility/ROM, To improve endurance, To improve balance, To assume or resume ADL's and To improve tolerance to ADL's Therapeutic Exercise to Include: Strength training, Flexibilty training, Gait and locomotor training, Passive ROM and Active ROM Comment: QUADS/HAMS/HIP For the Purpose of:: To decrease pain, To increase ROM, To improve muscle performance and motor function, To increase tolerance to activity/condition/position, To improve ability of physical actions for home/community/work/leisure, To improve health of tissue, To decrease soft tissue restriction, To increase flexibility/ROM, To improve endurance, To reduce risk of recurrence and To improve tolerance to ADL's Manual Therapy Techniques to Include: Soft tissue mobilization For the Purpose of:: To decrease pain, To increase ROM, To improve nutrient delivery to tissue, To improve health of tissue and To decrease soft tissue restriction TENS: Yes IF ES: Yes Thermo therapy (hot pack): Yes Ultrasound (thermal/non thermal): Yes Text: Thank you for the opportunity to evaluate your patient. For Medicare and Medicare HMO plans, please review the plan of care and approve it. It will need to be FAXED BACK to us at [phone] for Medicare purposes. For Medicare only, by signing this I certify the plan of care. Please let me know if there are questions or concerns regarding this plan of care. Physician Signature: Date:
--- NOTE | 2024-06-19 11:24 | HP.PT.NRP ---
Patient Information Patient Information: ORION CONNELL was seen in my office for initial evaluation on 05/09/24. The following Plan of Care was established for this patient: POC Established Initial Frequency: 2x /Week Initial Duration: 4 Weeks Anticipated Interventions Patient/Client Instruction: Educate patient on: Condition and Plan of Care For the Purpose of:: To decrease pain, To increase ROM, To improve muscle performance and motor function, To improve ability to perform ADL's, To increase tolerance to activity/condition/position, To improve ability of physical actions for home/community/work/leisure, To improve health of tissue, To decrease soft tissue restriction, To increase flexibility/ROM, To improve endurance, To improve balance, To assume or resume ADL's and To improve tolerance to ADL's Therapeutic Exercise to Include: Strength training, Flexibilty training, Gait and locomotor training, Passive ROM and Active ROM For the Purpose of:: To decrease pain, To increase ROM, To improve muscle performance and motor function, To increase tolerance to activity/condition/position, To improve ability of physical actions for home/community/work/leisure, To improve health of tissue, To decrease soft tissue restriction, To increase flexibility/ROM, To improve endurance, To reduce risk of recurrence and To improve tolerance to ADL's Manual Therapy Techniques to Include: Soft tissue mobilization For the Purpose of:: To decrease pain, To increase ROM, To improve nutrient delivery to tissue, To improve health of tissue and To decrease soft tissue restriction TENS: Yes IF ES: Yes Thermo therapy (hot pack): Yes Ultrasound (thermal/non thermal): Yes Last Seen Last Seen: This patient was last seen in our office . Pertinent comments regarding their Physical therapy will appear below: Patient seen Will be scheduled for surgery thus d/c At this point I will be discontinuing this patient from physical therapy. I would be happy to see this patient again in the future if found appropriate by the physician. Thank you! Bjorn Mckeon, PT, Cert MDT, OCS Balance/Gait/Functional tests Balance/Special Test Scores Lower Extremity Functional Score: 7
== END 2024-05-09 19:00 | disposition home or self-care (01) ==
LOC: PT 14:03
PROVIDERS: PCP Internal Medicine; Referring Provider Orthopaedic Surgery; Visit Provider Orthopaedic Surgery
DX: M76.30 Iliotibial band syndrome, unspecified leg (principal)
CPT/HCPCS: 97162

== ENCOUNTER → 2024-05-29 | Outpatient (CLI) | payer MEDICARE, SELFPAY ==
[2024-05-29 12:23] LABS: Absolute Lymphocyte Count 1.44 X10^3/uL (0.83-4.51); Absolute Neutrophil Count 2.6 X10^3/uL (2.0-7.7); Basophil# 0.04 X10^3/uL; Basophil% 0.9 % (0-1); Eosinophil# 0.04 X10^3/uL; Eosinophils% 0.9 % (0-5); Hematocrit 39.6 % (37-47); Lymphocyte # 1.44 X10^3/ul (0.83-4.51); Lymphocyte % 31.3 % (19-41); Mean Corp Hgb Conc 32.8 g/dL (32-36); Mean Corpuscular Hgb 30.8 pg (27.0-32.0); Mean Corpuscular Volume 93.8 fL (81-99); Mean Platelet Vol. 9.6 fl (6.2-12.0); Monocyte# 0.47 X10^3/uL; Monocyte% 10.2 % (0-10); NRBC Flagged by Analyzer 0 % (0-5); Neutrophil % 56.5 % (47-70); Platelet Count 259 K/mm3 (150-450); RBC Distribution Width CV 13.3 % (11.6-14.6); RBC Distribution Width SD 45.3 fl (35.1-43.9); Red Blood Count 4.22 M/mm3 (4.2-5.4); White Blood Count 4.6 K/mm3 (4.4-11.0)
[2024-05-29 12:47] LABS: ALB/GLOB Ratio 1.1 RATIO (0.9-2.4); AST(SGOT) 17 U/L (15-37); Alanine Aminotransfer ALT/SGPT 20 U/L (13-56); Alkaline Phosphatase 79 U/L (45-117); Anion Gap 5 (5-15); BUN 12 mg/dL (7-18); BUN/Creat Ratio 13.9 RATIO (10-20); Calcium,Total 9.3 mg/dL (8.5-10.1); Chloride 107 mmol/L (98-107); Creatinine, Serum 0.86 mg/dL (0.55-1.02); EST Glomerular Filtration Rate 69 mL/min (>60); Est Glom Filt Rate - Afr Amer 83 mL/min (>60); Globulin 3.6 g/dL (2.2-4.2); Glucose 111 mg/dL (74-106); Potassium 3.8 mmol/L (3.5-5.1); Protein, Total 7.6 g/dL (6.4-8.2); Sodium Level 140 mmol/L (136-145)
== END | disposition home or self-care (01) ==
LOC: MTLAB 10:10
PROVIDERS: PCP Internal Medicine; Referring Provider Internal Medicine Rheumatology; Visit Provider Internal Medicine Rheumatology
DX: M06.4 Inflammatory polyarthropathy (principal); Z79.899 Other long term (current) drug therapy; M79.7 Fibromyalgia
CPT/HCPCS: 36415; 80053; 85025

== ENCOUNTER → 2024-06-06 | Outpatient (CLI) | payer MEDICARE, SELFPAY ==
--- NOTE | 2024-06-06 15:28 | MRI_ITS ---
STUDY: MRI RIGHT HIP REASON FOR EXAM: Female, 69 years old. AVN -- RIGHT HIP -- RIGHT HIP TECHNIQUE: Standardized fat and water weighted pulse sequences were obtained in all 3 orthogonal planes. COMPARISON: X-ray 05/10/2024 FINDINGS: There is moderate articular narrowing of the hip joint, with greater than 50% loss of the hyaline cartilage. Normal acetabulum. Normal labrum. Curvilinear hypointensity of the subchondral superior aspect of the femoral head worrisome for avascular necrosis. Severe stress reaction throughout the femoral head and neck. Normal femoral neck and intratrochanteric region. Associated moderate joint effusion. Normal gluteus minimus, medius and iliopsoas tendons and distal insertions. There is no trochanteric, iliopsoas or iliopectineal bursitis. Normal superior and inferior pubic rami. Normal pubic symphysis. Normal ischial tuberosity. Normal origin of the hamstring tendons. Normal visualized iliac wing, sacroiliac joint, and sacral ala. Normal visualized soft tissue structures of the pelvis. MRI/Lower Ext Joint Only (Routine) IMPRESSION: Avascular necrosis with mild collapse, severe stress reaction, moderate arthrosis with moderate joint effusion. Electronically Signed: Johan Tejada MD at 10:32 EDT ,
== END | disposition home or self-care (01) ==
PROVIDERS: PCP Internal Medicine; Referring Provider Internal Medicine; Visit Provider Internal Medicine
DX: M87.00 Idiopathic aseptic necrosis of unspecified bone (principal)
CPT/HCPCS: 73721

== ENCOUNTER → 2024-07-05 | Outpatient (CLI) | payer MEDICARE, SELFPAY ==
[2024-07-05 15:06] LABS: Absolute Lymphocyte Count 1.25 X10^3/uL (0.83-4.51); Absolute Neutrophil Count 3.2 X10^3/uL (2.0-7.7); Basophil# 0.05 X10^3/uL; Eosinophil# 0.09 X10^3/uL; Eosinophils% 1.7 % (0-5); Hematocrit 38.6 % (37-47); Hemoglobin 12.2 g/dL (12.0-15.0); Lymphocyte # 1.25 X10^3/ul (0.83-4.51); Lymphocyte % 24.1 % (19-41); Mean Corp Hgb Conc 31.6 g/dL (32-36); Mean Corpuscular Hgb 30.3 pg (27.0-32.0); Mean Corpuscular Volume 95.8 fL (81-99); Mean Platelet Vol. 9.4 fl (6.2-12.0); Monocyte# 0.57 X10^3/uL; NRBC Flagged by Analyzer 0 % (0-5); Neutrophil % 61.8 % (47-70); Platelet Count 205 K/mm3 (150-450); RBC Distribution Width SD 49.3 fl (35.1-43.9); Red Blood Count 4.03 M/mm3 (4.2-5.4); White Blood Count 5.2 K/mm3 (4.4-11.0)
[2024-07-05 15:15] LABS: International Normalized Ratio 1.1; Partial Thromboplast Time 27.8 Seconds (24.1-36.2); Prothrombin Time (Protime)PT. 14.4 SECONDS (11.7-14.9)
[2024-07-05 15:21] LABS: Magnesium 2.3 mg/dL (1.6-2.6)
[2024-07-05 15:30] LABS: Vitamin D,25 Hydroxy 55.5 ng/mL
[2024-07-05 15:31] LABS: ALB/GLOB Ratio 1.2 RATIO (0.9-2.4); AST(SGOT) 14 U/L (15-37); Alanine Aminotransfer ALT/SGPT 15 U/L (13-56); Albumin, Serum 3.8 g/dL (3.2-5.0); Alkaline Phosphatase 52 U/L (45-117); Anion Gap 6 (5-15); BUN 12 mg/dL (7-18); BUN/Creat Ratio 13.7 RATIO (10-20); Calcium,Total 8.4 mg/dL (8.5-10.1); Chloride 106 mmol/L (98-107); Creatinine, Serum 0.88 mg/dL (0.55-1.02); EST Glomerular Filtration Rate 68 mL/min (>60); Est Glom Filt Rate - Afr Amer 82 mL/min (>60); Globulin 3.2 g/dL (2.2-4.2); Glucose 97 mg/dL (74-106); Potassium 3.7 mmol/L (3.5-5.1); Sodium Level 140 mmol/L (136-145)
[2024-07-05 15:32] LABS: Hemoglobin A1c 5.3 % (3.8-5.6)
[2024-07-08 11:08] LABS: Fructosamine 283 umol/L (0-285)
== END | disposition home or self-care (01) ==
LOC: MTLAB 13:19
PROVIDERS: Anesthesiology; Orthopaedic Surgery; PCP Internal Medicine; Referring Provider Internal Medicine; Visit Provider Internal Medicine
DX: Z01.818 Encounter for other preprocedural examination (principal); R73.09 Other abnormal glucose; E55.9 Vitamin D deficiency, unspecified
CPT/HCPCS: 80053; 82306; 82985; 83036; 83735; 84443; 85025; 85610; 85730; 87081

== ENCOUNTER → 2024-07-12 | Outpatient (CLI) | payer MEDICARE, SELFPAY ==
--- NOTE | 2024-07-12 12:57 | CT_ITS ---
PROCEDURE: CT OF THE HIPS AND KNEES WITHOUT CONTRAST REASON FOR EXAM: Female, 69 years old. Preoperative templating for total hip arthroplasty. TECHNIQUE: Transaxial CT of the hip hips and knees were obtained without contrast. Coronal and sagittal reconstruction images were provided. Individualized dose optimization techniques were used for this CT. COMPARISON: Hip and pelvic x-rays dated May 10, 2024 FINDINGS: Standard protocol for the preoperative planning for the [employer] robotic knee surgery was performed. Osteopenia with moderate arthrosis of the right hip and mild arthrosis of the left hip. Right total knee arthroplasty. Moderate tricompartmental osteoarthritic changes of the left knee.. CT/Extremity Lower without Contra IMPRESSION: Osteopenia with osteoarthritic changes as described. Electronically Signed: Ambrocio Prakash MD at 14:50 EST ,
== END | disposition home or self-care (01) ==
LOC: CT 12:49
PROVIDERS: PCP Internal Medicine; Referring Provider Orthopaedic Surgery; Visit Provider Orthopaedic Surgery
DX: M16.7 Other unilateral secondary osteoarthritis of hip (principal)
CPT/HCPCS: 73700

== ENCOUNTER 2024-07-16 11:31 | Inpatient (IN) | payer MEDICARE, SELFPAY ==
[2024-07-16] VITALS (21 sets, daily range): BP systolic 90–162; BP diastolic 52–112; PULSE 61–91; RESP 16–18; TEMP 36.1–37.3; O2SAT 95–100; BMI 32.5; BMI 34.0
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
--- NOTE | 2024-07-16 07:34 | PCM.PRE.AN2 ---
ASA Classification* ASA Classification ASA Classification: 2 Assessment & Plan Anesthesia* Anesthesia Assessment Anesthesia Assessment: Discussed sedation and/or anesthesia options, risks, benefits, and alternatives with patient/parents/legal guardian/POA. Questions invited. The patient/parents/legal guardian/POA seems to understand and agrees to proceed with anesthesia plan. Reviewed the physical assessment, medical history, allergy history and patient home medications list prior to surgery/procedure/anesthetic and documented any changes. Performed airway and anesthesia risk assessments. Anesthesia Type Anesthesia Type: Spinal (GA bkup) Anesthesia Focused Assessment* Airway Assessment Mouth opens: >3 cm Mallampati Score: II Focused Labs Anesthesia Preop lab: CBC WBC 5.2 K/mm3 (4.4-11.0) 07/05/24 13:29 RBC 4.03 M/mm3 (4.2-5.4) L 07/05/24 13:29 Hgb 12.2 g/dL (12.0-15.0) 07/05/24 13:29 Hct 38.6 % (37-47) 07/05/24 13:29 Plt Count 205 K/mm3 (150-450) 07/05/24 13:29 CHEMISTRY Potassium 3.7 mmol/L (3.5-5.1) 07/05/24 13:28 Sodium 140 mmol/L (136-145) 07/05/24 13:28 Magnesium 2.3 mg/dL (1.6-2.6) 07/05/24 13:27 BUN 12 mg/dL (7-18) 07/05/24 13:28 Creatinine 0.88 mg/dL (0.55-1.02) 07/05/24 13:28 Glucose 97 mg/dL (74-106) 07/05/24 13:28 POC Glucose 95 mg/dL (70-110) 02/27/20 07:24 TSH 1.080 uIU/mL (0.358-3.740) 07/05/24 13:28 COAG PT 14.4 SECONDS (11.7-14.9) 07/05/24 13:27 Pre-Assessment Diagnosis/Proposed Procedure Planned Operative Procedure(s): (R) ERAS, Right Total Hip Replacement Robotic Arm Assisted Anesthesia History 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 When Was Last Pacemaker Check QUESTION #4 FULL TEXT: You/Your Family Experience fever (hyperthermia) with Anesthesia Last Oral Intake Last Oral intake: Last Oral Intake NPO since Meds taken in AM with sips of water? Meds patient instructed to take am of surgery PONV PONV - upholstery cutter: PONV - upholstery cutter Female Yes 07/03/24 10:02 HX of Motion Sickness No 07/03/24 10:02 HX of N/V After Surgery Yes 07/03/24 10:02 Non-Smoker Yes 07/03/24 10:02 Duration of Surgery greater Yes 07/03/24 10:02 than 60 minutes Number of Risk Factors 4 07/03/24 10:02 PONV Score Severe Risk 07/03/24 10:02 Height & Weight Height & Weight: Anesthesia: Height & Weight Height 4 ft 11 in 06/14/24 10:44 Respiratory Assessment Respiratory Assessment - upholstery cutter: Respiratory Tract Infection Hx - upholstery cutter Hx Respiratory Tract Infection No 07/03/24 10:02 STOP Sleep Apnea STOP Sleep Apnea - upholstery cutter: STOP Sleep Apnea - upholstery cutter Hx Hypertension No 07/03/24 10:02 Hx Sleep Apnea No 07/03/24 10:02 CPAP BIPAP Do you snore loudly (louder No 07/03/24 10:02 than talking or can be heard Do you often feel tired/ No 07/03/24 10:02 fatigued/ sleepy during daytime? Has anyone observed you stop No 07/03/24 10:02 breathing during sleep? STOP Results Negative 07/03/24 10:02 QUESTION #5 FULL TEXT : Do you snore loudly (louder than talking or can be heard through closed doors)? 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 Specify any problems Hx of Preganancy in last 3 N/A 07/03/24 10:02 Months Nurse Filling Out Transfusion NBUCHER 07/03/24 10:02 & Questions: Date: 07/03/24 07/03/24 10:02 Time: 10:03 07/03/24 10:02 Patient unable to answer at this time (ie. confused, unrespo /Reproduction History /Reproductive History - upholstery cutter: /Reproductive Hx- upholstery cutter Hx Now No 07/03/24 10:02 Gestational Age (in weeks): EDC: Hx Hx Para Hx Section SAB No 07/03/24 10:02 Active Medications Active Medications: Current Medications Generic Name Dose Route Start Last Admin Trade Name Bennett PRN Reason Stop Dose Admin Acetaminophen 1,000 mg 07/16/24 09:20 Acetaminophen 500 Mg Tablet PO 07/16/24 09:21 X1 ONE Celecoxib 400 mg 07/16/24 09:20 Celecoxib 200 Mg Capsule PO 07/16/24 09:21 X1 ONE Dexamethasone Sodium Phosphate 10 mg 07/16/24 09:20 Dexamethasone 10 Mg/Ml Vial IV 07/16/24 09:21 X1 ONE Gabapentin 600 mg 07/16/24 09:20 Gabapentin 600 Mg Tablet PO 07/16/24 09:21 X1 ONE Lactated Ringer's 1,000 mls @ 999 mls/hr 07/16/24 09:20 IV 07/16/24 10:20 .Q1H1M ANMOL Tranexamic Acid 2,000 mg/ 120 mls @ 660 mls/hr 07/16/24 09:20 Sodium Chloride IV 07/16/24 09:30 X1 ONE Lactated Ringer's 1,000 mls @ 125 mls/hr 07/16/24 09:20 IV 07/16/24 17:19 .Q8H ANMOL Cefazolin Sodium 2 gm/ N/A 20 mls @ 400 mls/hr 07/16/24 09:20 IV 07/16/24 09:22 PREOP ONE Magnesium Sulfate 1 gm/ 102 mls @ 408 mls/hr 07/16/24 09:20 Dextrose IV 07/16/24 09:34 X1 ONE Insulin Human Lispro 1 - 6 unit 07/16/24 09:20 Insulin Lispro 100 Unit/Ml Insuln.Pen SC Q4H PRN PRN BG>/= 180, SEE PROTOCOL Protocol Scopolamine HBr 1 patch 07/16/24 09:20 Scopolamine 1mg/72hr Patch TD 07/16/24 09:21 X1 ONE PFSH Medical History Wears glasses Wears dentures Loss of hearing Marijuana use Walker as ambulation aid PONV (postoperative nausea and vomiting) Shortness of breath on exertion Non-smoker Leg cramps History of edema Cochlear implant in place Tonsillectomy planned Hx of cataract Home Medications ?Medication ?Instructions ?Recorded ?Last Taken ?Type Cholecalciferol (Vitamin D3) 2 tab PO DAILY SUPPLEMENT 02/12/20 Unknown History [Vitamin D3] tramadol 50 mg tablet 50 mg PO Q6H PRN pain 01/19/22 04/18/23 History folic acid 1 mg tablet 1 mg PO DAILY SUPPLEMENT 04/18/23 04/18/23 History methotrexate sodium 2.5 mg tablet 15 mg PO WE ARTHRITIS 05/01/24 Unknown History CBD GUMMY 8 mg PO QHS ARTHRITIS/TINGLING IN 07/03/24 Unknown History HANDS AND FEET turmeric 400 mg capsule 800 mg PO DAILY SUPPLEMENT 07/03/24 Unknown History Allergy/AdvReac Type Severity Reaction Status Date / Time No Known Allergies Allergy Verified 07/16/24 07:30 Surgical History History of hysterectomy History of carpal tunnel release of both wrists Hx of removal of cyst Hx of arthroscopy of right knee Hx of cholecystectomy Social History Smoking Status: Never smoker Review of Systems (Anesthesia) ROS Narrative System reviewed and no additional complaints, except as documented.
[2024-07-16] MEDS: Lactated Ringers 1,000 ML 999 ML IV (07:45)
[2024-07-16] MEDS: Magnesium 1 GM over 15 mins IV (08:00)
[2024-07-16] MEDS: Acetaminophen 500 MG Tablet 1000 MG PO ×3 (08:08→22:01)
[2024-07-16] MEDS: Gabapentin 600 MG Tablet PO (08:08)
[2024-07-16] MEDS: Scopolamine 1mg/72hr Patch 1 PATCH TD (08:09)
[2024-07-16] MEDS: Celecoxib 200 MG Capsule 400 MG PO (08:09)
[2024-07-16 08:24] LABS: Bedside Glucose 94 mg/dL (74-106)
[2024-07-16] MEDS: Cefazolin 2 GM in Syringe IV ×3 (08:58→23:00)
--- NOTE | 2024-07-16 09:00 | HIP_PTH ---
PATIENT: ORION CONNELL LOC: MS3 U#:[id number] AGE/SX: 69/F ROOM: [facility] [place] [facility] [place]07/16/[address]: Dr. Negro Johnson DO : 1955 BED: 1 DIS: 07/18/2024 SPEC #: [id number] RECD: 07/16/24 13:40 STATUS: DANNY ZARCO #: [id number] SHASTA: 07/16/24 09:[address]: Negro Johnson DEPT: SURGICAL PATHOLOGY RECD BY: Elijah Looney ENTERED: 07/17/24 07:38 SP TYPE: TOTAL HIP OTHR DR: Dr. Patt Joy DO Tissues: Hip, NOS Procedures: Decalcification bone/plaque Surgery Specimen Level IV HEADER OPERATION: Right total hip replacement robotic arm assist PRE-OP DIAGNOSIS: Degenerative joint disease of hip TISSUE SUBMITTED: Right hip bone and tissue MICROSCOPIC DIAGNOSIS Right hip bone and soft tissue, total hip replacement/resection: Femoral head with degenerative osteoarthritic changes. Michelle 07/22/2024 MICROSCOPIC DESCRIPTION Slides are reviewed. GROSS DESCRIPTION Received is one container labeled with the patient's name and designated bone and soft tissue right hip. The specimen consists of a gonzalez femoral head with portion of femoral neck. The femoral head measures 4.0 x 4.0 x 3.0 cm and portion of femoral neck measures 0.6 cm in length. The articular surface displays prominent osteophyte formation and bone erosion. Soft tissue entirely consists of bone reamings measuring in aggregate 5.0 x 4.5 x 1.5cm. Fire Sprinkler Fitter sections of femoral head are submitted in two cassettes after decalcification. 07/17/2024 TC:5 [facility]: [id number]
[2024-07-16] MEDS: dexAMETHasone 10 MG/ML Vial IV (09:15)
[2024-07-16] MEDS: TRANEXAMIC ACID 2,000 MG in 0.9% Normal Saline (100mL Bag) 100 ML 660 MG IV (09:15)
--- NOTE | 2024-07-16 11:38 | OP.PCM_ITS ---
Operative Report (Standard) Operative Information Surgery/Procedure Performed: Right total hip arthroplasty Surgeon: Negro Johnson Date of Procedure: 07/16/24 Procedure Start Time: 09:29 Procedure Stop Time: 11:45 Pre-Operative Diagnosis: Avascular necrosis right hip and rheumatoid arthritis Post-Operative Diagnosis: Same Select all DRAINS/GRAFTS/IMPLANTS that apply: None Type of Anesthesia: General Estimated Blood Loss: 200 Specimen collected: Yes Description of specimen(s) removed: Femoral head Description of surgery: Preoperative diagnosis: Right hip AVN with shortening rheumatoid arthritis right hip Postoperative diagnosis: Same Procedure: CT-guided Makoplasty assisted right total hip arthroplasty Implants: [place] Accolade II stem size 5, 132 degree neck angle 0 head neck length 46 mm Trident II acetabular shell with 40mm and 30 mm cancellous screw 32mm ceramic head, 10 degree Trident X3 polyethylene insert. Anesthesia: General EBL: 200 cc Complications: None Condition: Stable to PACU Corporate Investigator Chris Bowden. My physician emergency room physician assistant was a vital part of this case. He was important in appropriate retraction during the case, and protection of soft tissues during procedure. His intimate knowledge of the case and my steps aided in safe and expedient completion of the procedure as well as appropriate position of the extremity during the case. He was also vital in assisting with closure under my direct supervision. Indication for procedure: This is a 69-year-old female with AVN and rheumatoid arthritis who has had long-standing arthrosis of the hip who has failed conservative treatment and wished to undergo total hip arthroplasty. We did discuss operative versus nonoperative intervention including risks of bleeding, infection , nerve artery tissue damage, need for further surgery, fracture, leg length discrepancy dislocation blood clot and need for postoperative physical therapy and postoperative expectations. An informed consent was signed. Procedure: Patient was met in the preoperative holding area once again the operative extremity was identified by both patient and physician and was marked. Patient was met by anesthesia . Anesthesia was started. patient was then positioned in the lateral decubitus position on a well-padded pegboard with an axillary roll. All bony prominences were checked and padded. The patient was prepped and draped in the usual sterile fashion. A timeout was called to ensure the proper patient procedure and extremity were being contemplated. Anatomic landmarks were palpated and marked for a standard posterior lateral approach. Prior to this the ASIS was palpated and 3 fingerbreadths proximal to this 3 pins were placed at a 45 degree angle into the iliac crest with good purchase, stab incisions were made with a 15 blade into the skin prior to placement. The Makoplasty array was then secured. A 10 blade scalpel was used to make a posterior incision through the skin and subcutaneous tissue. retractors were used and electrocautery was used to maintain meticulous hemostasis and dissect full-thickness flaps until the gluteal fascia was reached. The gluteal fascia was incised in line with the gluteal fibers. The bursal tissue was then freed from the underside and a Charnley retractor was placed. The femoral trochanteric checkpoint was placed and leg length was assessed using the trochanteric checkpoint and an EKG lead that was placed on the knee prior to prepping the leg .the fat pad was then elevated off of the external rotators with electrocautery and the external rotators were dissected off of the greater trochanter including the piriformis and were tagged with #1 Ethibond for later repair. The joint capsule opened with posterior trapdoor technique. The hip was surgically dislocated. The measurement on the preoperative CT from the top of the lesser trochanter to the femoral neck cut was marked Hohmann was placed around the lesser trochanter. A neck cutting guide was used to xin the neck with a Bovie and an oscillating saw was used complete the femoral neck cut. The femoral head was then removed and sized. We then turned our attention to the acetabulum. A Bovie was used to make a perforation in the anterior joint capsul e and a Albert retractor was placed this was repeated in the 6 o'clock position and a wide rossy was placed there. With a long handled knife the labral and pulvinar tissue were removed. We then registered the acetabulum with the pointing array and confirmed our landmarks. Once the socket was thoroughly prepared and labral tissue and pulvinar was removed we single reamed with the robotic arm. We then used the robotic arm to position the acetabular implant and impacted it into place under robotic guidance. We then proceeded to place 2 posterior superior screws by drilling first measuring and inserting the screw. We then inserted a trial liner. And turned our attention back to the femur at this point a femoral elevator was used. As well as a pointed wide Hohmann around the lesser trochanter and a Hohmann to help retract the gluteus medius. A box chisel was used to remove excess lateral neck followed by a canal finder and a lateralizing reamer. This was followed by sequential broaches. Attention was made of the version within the canal based on preoperative templating. Once the final broach was seated we then trialed reduced the hip it was determined that a 132 degree neck angle with a 0 neck length was the appropriate size. We then checked stability with shuck testing as well as flexion and internal rotation. then proceeded with hip extension and checked leg lengths at the knees and heels as well as with the trochanteric checkpoint and knee EKG lead. At this point trials were removed. A liner was inserted to the cup. The femoral stem was inserted. We re-trialed and then proceeded to impact the femoral head onto the Adam taper. We then surgically reduce the hip check stability again and leg lengths and were satisfied. Betadine rinse was allowed to sit for 5 minutes while everyone changed their gloves. Thorough irrigation was performed. Followed by closure of the external rotators with #2 FiberWire followed by closure of gluteal fascia with #1 Ethibond. 0 Vicryl fat stitches and 2-0 Vicryl subcutaneous stitches and pal in the skin. Pal were placed in the skin pin sites over the iliac crest and dressed with a Mepilex dressing. The main incision was dressed with a Mepilex ag dressing and an abduction pillow was placed. Patient tolerated the procedure well there was no intraoperative complications all counts were correct and the patient was brought back to the PACU in stable condition Surgical Findings: AVN femoral head significant synovitis Oven Unloader machine maintenance supervisor: Yes Driver Lifter Of Sanitation Truck: Chris Bowden Tasks completed by executive assistant to general counsel: Closing Complications Complications: No
--- NOTE | 2024-07-16 12:05 | RAD_ITS ---
STUDY: X-RAY - PELVIS AND RIGHT HIP REASON FOR EXAM: Female, 69 years old. Post Op -- AP both hips on single roderick s/lateral of op hip PACU TECHNIQUE: 2 views of the pelvis and hip. COMPARISON: Comparison is made with prior study dated May 10, 2024. FINDINGS: The patient is status post right total hip replacement. There is good alignment. Postoperative soft tissue changes. RAD/Hip Min 2 Views (Portable) IMPRESSION: Status post right total hip replacement. There is good alignment. Postoperative soft tissue changes. Electronically Signed: James Price MD at 12:54 EST ,
[2024-07-16] MEDS: Lactated Ringers 1,000 ML 125 ML IV (12:31)
--- NOTE | 2024-07-16 12:41 | PCM.POST.ANE ---
Anesthesia: Postop Eval I Current Vital Signs Temperature: 97 F Pulse Rate: 74 Blood Pressure: 149/76 Respiratory Rate: 16 Pulse Ox: 100 Oxygen Delivery Method: Room Air Assessment Airway patent: Yes Spontaneous unlabored respirations: Yes Mental status: Awake and Calm nausea: No Vomiting: No Anesthesia Complication: No Fluid Hydration Crystalloid volume administer (ml): 2,000 Total IV fluid infused: 2,000 Progress Note Anesthesia document: Postop Eval 1 completed: Yes
--- NOTE | 2024-07-16 14:03 | POSTOPAN2_ITS ---
Anesthesia Postop Eval I Sum Postop Eval Completion status Anesthesia document: Postop Eval 1 completed: Yes Anesthesia Postop Eval I Summary Anesthesia Postop Eval I Summary: Anesthesia Postop Eval I: Assessment Summary Airway patent Yes 07/16/24 12:41 [email or web address] Spontaneous unlabored Yes 07/16/24 12:41 [email or web address] respirations Mental status Awake,Calm 07/16/24 12:41 [email or web address] nausea No 07/16/24 12:41 [email or web address] Vomiting No 07/16/24 12:41 [email or web address] Anesthesia Postop Eval I: Fluid Summary Crystalloid volume administer 2,000 07/16/24 12:41 [email or web address] (ml) Colloids volume administered ( ml) Blood Product volume administered (ml) Total IV fluid infused 2,000 07/16/24 12:41 [email or web address] Anesthesia Postop Eval I: Summary Notes Anesthesia Complication No 07/16/24 12:41 [email or web address] Anesthesia Complication Comment: Post-operative progress note Anesthesia: Postop Eval II Evaluation Mental status: Awake and Calm Pain Level: 2 nausea: No Vomiting: No Complications Anesthesia Complication: No
--- NOTE | 2024-07-16 14:03 | PCM.POSTANE2 ---
Anesthesia Postop Eval I Sum Postop Eval Completion status Anesthesia document: Postop Eval 1 completed: Yes Anesthesia Postop Eval I Summary Anesthesia Postop Eval I Summary: Anesthesia Postop Eval I: Assessment Summary Airway patent Yes 07/16/24 12:41 PRODUCT SUPPORT [email or web address] Spontaneous unlabored Yes 07/16/24 12:41 PRODUCT SUPPORT [email or web address] respirations Mental status Awake,Calm 07/16/24 12:41 PRODUCT SUPPORT [email or web address] nausea No 07/16/24 12:41 PRODUCT SUPPORT [email or web address] Vomiting No 07/16/24 12:41 PRODUCT SUPPORT [email or web address] Anesthesia Postop Eval I: Fluid Summary Crystalloid volume administer 2,000 07/16/24 12:41 PRODUCT SUPPORT [email or web address] (ml) Colloids volume administered ( ml) Blood Product volume administered (ml) Total IV fluid infused 2,000 07/16/24 12:41 PRODUCT SUPPORT [email or web address] Anesthesia Postop Eval I: Summary Notes Anesthesia Complication No 07/16/24 12:41 PRODUCT SUPPORT [email or web address] Anesthesia Complication Comment: Post-operative progress note Anesthesia: Postop Eval II Evaluation Mental status: Awake and Calm Pain Level: 2 nausea: No Vomiting: No Complications Anesthesia Complication: No
[2024-07-16] MEDS: oxyCODONE 5 MG Tablet PO (17:16)
[2024-07-16] MEDS: Senna/Docusate Sodium 1 Tablet 2 TABLET PO (22:01)
[2024-07-16] MEDS: 0.9% Normal Saline (1000mL) 1,000 ML 125 ML IV (22:58)
[2024-07-16] MEDS: 0.9% Saline Lock 10 ML Syringe IV (22:59)
[2024-07-17 02:30] VITALS: BP 94/44; PULSE 89; RESP 16; TEMP 36.8; O2SAT 98
[2024-07-17] MEDS: Acetaminophen 500 MG Tablet 1000 MG PO ×3 (04:45→21:59)
[2024-07-17 06:03] LABS: Hematocrit 28.8 % (37-47); Hemoglobin 9.6 g/dL (12.0-15.0); Mean Corp Hgb Conc 33.3 g/dL (32-36); Mean Corpuscular Hgb 30.7 pg (27.0-32.0); Mean Platelet Vol. 9.3 fl (6.2-12.0); Platelet Count 232 K/mm3 (150-450); RBC Distribution Width CV 13.7 % (11.6-14.6); RBC Distribution Width SD 45.9 fl (35.1-43.9); Red Blood Count 3.13 M/mm3 (4.2-5.4); White Blood Count 11.7 K/mm3 (4.4-11.0)
[2024-07-17] MEDS: 0.9% Normal Saline (1000mL) 1,000 ML 125 ML IV (06:29)
[2024-07-17] MEDS: 0.9% Saline Lock 10 ML Syringe IV (06:30)
[2024-07-17] MEDS: Cefazolin 2 GM in Syringe IV (06:30)
[2024-07-17 07:33] LABS: Anion Gap 8 (5-15); BUN 16 mg/dL (7-18); BUN/Creat Ratio 13.7 RATIO (10-20); Calcium,Total 8.1 mg/dL (8.5-10.1); Chloride 108 mmol/L (98-107); Creatinine, Serum 1.17 mg/dL (0.55-1.02); EST Glomerular Filtration Rate 48 mL/min (>60); Est Glom Filt Rate - Afr Amer 59 mL/min (>60); Estimated Creatinine Clearance 40.26 ml/min; Glucose 113 mg/dL (74-106); Potassium 3.4 mmol/L (3.5-5.1); Sodium Level 139 mmol/L (136-145)
[2024-07-17 07:50] VITALS: O2SAT 96
[2024-07-17 08:49] VITALS: O2SAT 96
[2024-07-17] MEDS: Folic Acid 1 MG Tablet PO (09:00)
[2024-07-17] MEDS: APIXABAN 2.5 MG TABLET (WCH) PO ×2 (09:00→22:08)
[2024-07-17] MEDS: Cholecalciferol (Vit D3) 125 MCG CAPSULE (5,000 UNITS) 250 MCG PO (09:00)
[2024-07-17] MEDS: Senna/Docusate Sodium 1 Tablet 2 TABLET PO ×2 (09:00→21:59)
[2024-07-17 09:09] VITALS: BP 133/53; PULSE 91; RESP 16; TEMP 36.8; O2SAT 97
--- NOTE | 2024-07-17 11:40 | CASEMGMT ---
IMELDA ELAM Assessment: Face to Face with pt for initial transition planning/care coordination assessment. IMELDA ELAM introduced self and role at [facility], pt voices understanding and consents to assessment. Pt is A&O x4 and answers all questions appropriately at this time. Pt sitting up in bed in no distress with at bedside. Care providers, pharmacy, and demographics verified/updated. Admitting Dx: R THR Strata Score: 1 PCP:Benita Specialists:jorge l Navas; Elizabeth, ortho Preferred Pharmacy: [facility] Insurance: [facility] Prescription Benefit: yes LNOK: Fabian Hu, Living Arrangements: Pt lives with , dtr, son in law and grandson in a split level home with 2 steps to enter. Pt reports normally she is I in ADLs. Pt does laundry and pt son in law cooks. Pt is off until the 18th to assist with pt care. Pt denies concerns at home. Transportation: Pt transports her. Pt denies concerns with transportation. DME:walk in shower, cane, walker, shower chair HHC/SNF: Denies hx of Pt states no concerns with going home at time of dc. Pt has outpt therapy set up at [facility] to start on Monday. Pt states no further concerns/needs. CM to follow. Advised pt to ask CM if any further question/concerns/needs arise, voices understanding. Pt Goal: Home with outpt therapy Plan: Home with outpt therapy Aisha SEGURA CM
[2024-07-17] MEDS: oxyCODONE 5 MG Tablet PO ×3 (12:31→22:13)
--- NOTE | 2024-07-17 13:25 | PCM.PN.ORT ---
Subjective Subjective Seen and examined. Patient is complaining of significant pain in her right hip. She admits to a headache. Denies any nausea vomiting fevers chills shortness of breath or chest pain. Reportedly did well with physical therapy according to the . Objective Data Objective Data Vital Signs: Vital Signs Temp Pulse Resp BP Pulse Ox O2 Del Method O2 Flow Rate 98.3 F 91 16 133/53 H 97 Room Air 2 07/17/24 09:09 07/17/24 09:09 07/17/24 09:09 07/17/24 09:09 07/17/24 09:09 07/17/24 09:09 07/16/24 16:11 Oxygen Flow Rate (L/min) 2 Oxygen Delivery Method Room Air Weight: 168 lb 3.403 oz Body Mass Index (BMI) 34.0 Intake & Output: Intake and Output for Last 24 Hours 07/15/24 07/16/24 07/17/24 23:59 23:59 23:59 Intake Total 4282 / 4522 2939.58 / 2939.58 Output Total 150 / 150 Balance 4132 / 4372 2939.58 / 2939.58 Lab / Micro Data 07/17/24 05:37 07/17/24 05:37 Labs: Laboratory Results - last 24 hr 07/17/24 05:37: WBC 11.7 H, RBC 3.13 L, Hgb 9.6 L, Hct 28.8 L, MCV 92.0, MCH 30.7, MCHC 33.3, RDW Std Deviation 45.9 H, RDW Coeff of Oly 13.7, Plt Count 232, MPV 9.3, Sodium 139, Potassium 3.4 L, Chloride 108 H, Carbon Dioxide 23.0, Anion Gap 8, BUN 16, Creatinine 1.17 H, Estim Creat Clear Calc 40.26, Est GFR (MDRD) Af Amer 59 L, Est GFR (MDRD) Non-Af 48 L, BUN/Creatinine Ratio 13.7, Glucose 113 H, Calcium 8.1 L Physical Exam Const alert, oriented x3 and no apparent distress General Appearance: cooperative Extremity Extremity Narrative: Right hip dressing clean dry intact compartment soft neurovascular intact EHL tibialis anterior gastrocsoleus intact sensation to light touch 2 out of 4 pedal pulse Assessment & Plan Assessment/Plan (1) S/P total right hip arthroplasty: PLAN: Postop day #1 right total hip arthroplasty. PT OT weightbearing as tolerated with a precautions DVT prophylaxis SCDs FLORENCE castelan Eliquis 2.5 mg twice daily for 3 weeks postop Pain control oxycodone and Tylenol DC planning home tomorrow.
[2024-07-17 13:44] VITALS: BP 141/56; PULSE 97; RESP 16; TEMP 37.2; O2SAT 97
[2024-07-17 21:58] VITALS: BP 126/58; PULSE 86; RESP 16; TEMP 36.8; O2SAT 97
[2024-07-18 03:34] VITALS: BP 153/65; PULSE 89; RESP 16; TEMP 36.8; O2SAT 98
[2024-07-18] MEDS: oxyCODONE 5 MG Tablet PO (03:39)
[2024-07-18] MEDS: Acetaminophen 500 MG Tablet 1000 MG PO (06:16)
[2024-07-18 06:19] VITALS: BP 112/49
[2024-07-18 07:08] LABS: Hematocrit 26.2 % (37-47); Hemoglobin 8.6 g/dL (12.0-15.0); Mean Corp Hgb Conc 32.8 g/dL (32-36); Mean Corpuscular Hgb 30.8 pg (27.0-32.0); Mean Corpuscular Volume 93.9 fL (81-99); Mean Platelet Vol. 9.9 fl (6.2-12.0); Platelet Count 173 K/mm3 (150-450); RBC Distribution Width CV 13.8 % (11.6-14.6); RBC Distribution Width SD 47.6 fl (35.1-43.9); Red Blood Count 2.79 M/mm3 (4.2-5.4); White Blood Count 9.9 K/mm3 (4.4-11.0)
[2024-07-18] MEDS: Cholecalciferol (Vit D3) 125 MCG CAPSULE (5,000 UNITS) 250 MCG PO (07:37)
[2024-07-18] MEDS: Senna/Docusate Sodium 1 Tablet 2 TABLET PO (07:38)
[2024-07-18] MEDS: Folic Acid 1 MG Tablet PO (07:38)
[2024-07-18] MEDS: APIXABAN 2.5 MG TABLET (WCH) PO (07:39)
[2024-07-18 08:58] VITALS: BP 117/71; PULSE 88; RESP 16; TEMP 36.7; O2SAT 97
[2024-07-18] MEDS: Ondansetron 4 MG/2 ML Vial IV (09:04)
--- NOTE | 2024-07-18 09:12 | PCM.PN.ORT ---
Subjective Subjective Seen and examined. Doing okay. Had some pain medication before breakfast and then when she ate she got nauseous and threw up some of her food. Denies any other complaints or concerns pain controlled. Objective Data Objective Data Vital Signs: Vital Signs Temp Pulse Resp BP Pulse Ox O2 Del Method O2 Flow Rate 98.1 F 88 16 117/71 97 Room Air 2 07/18/24 08:58 07/18/24 08:58 07/18/24 08:58 07/18/24 08:58 07/18/24 08:58 07/18/24 08:58 07/16/24 16:11 Oxygen Flow Rate (L/min) 2 Oxygen Delivery Method Room Air Weight: 168 lb 3.403 oz Body Mass Index (BMI) 34.0 Intake & Output: Intake and Output for Last 24 Hours 07/16/24 07/17/24 07/18/24 23:59 23:59 23:59 Intake Total 4282 / 4522 5679.58 / 5979.58 400 / 400 Output Total 150 / 150 Balance 4132 / 4372 5679.58 / 5979.58 400 / 400 Lab / Micro Data 07/18/24 06:28 07/17/24 05:37 Labs: Laboratory Results - last 24 hr 07/18/24 06:28: WBC 9.9, RBC 2.79 L, Hgb 8.6 L, Hct 26.2 L, MCV 93.9, MCH 30.8, MCHC 32.8, RDW Std Deviation 47.6 H, RDW Coeff of Oly 13.8, Plt Count 173, MPV 9.9 Physical Exam Const alert, oriented x3 and no apparent distress General Appearance: cooperative Extremity Extremity Narrative: Right hip dressing clean dry intact compartment soft neurovascular intact EHL tibialis anterior gastrocsoleus intact sensation to light touch 2 out of 4 pedal pulse Assessment & Plan Assessment/Plan (1) Postoperative nausea: (2) S/P total right hip arthroplasty: PLAN: Plan Patient had an emesis after Broflex. She did have some pain medication prior to this which may have contributed. I did supervisor counseling and guidance her to minimize narcotic and make sure she has not food when she takes it in the future. She was given Zofran We will see how she does this morning make sure she can keep down her lunch and if she is feeling better after lunch I will discharge her with some Zofran orally Likely discharge today
--- NOTE | 2024-07-18 09:14 | DCINST_ITS ---
Discharge Instructions Diet Discharge Diet: No restrictions Dressing / Incision Call your doctor if you observe: Shortness of breath and Chest pain Additional Dressing/Incision Instructions:: Do not shower 72hrs. Begin daily showering warm water antibacterial soap postop day #3( 72hrs Post-operatively) and then daily. Leave the dressing on for 72 hours postoperatively then may remove prior to first shower and change dressing daily after this until no drainage for 2 consecutive days then may leave open to air. Follow hip precautions that were reviewed in hospital. Wear compression stockings, may remove at night. Start physical therapy as directed in hospital. Follow prescriptions instructions do not take any other pain medication or differ dosing without consulting your physician. Do not take oral NSAIDs until blood thinner has been completed , then may begin the day after completion if needed . Call Dr. Johnson's office with any concerns. Follow Up Care Please Follow Up With: Negro Johnson DO When: 2 weeks Test Results: Test results from this visit will be discussed in further detail at your follow- up appointment, if applicable. Discharge Plan Admission Admit Date/Time: 07/16/24 11:31 Primary Reason for Your Visit: Right total hip arthroplasty Attending Provider: Negro Johnson Primary Care Provider: Patt Joy Discharge Orders/Prescriptions Prescriptions: New acetaminophen 500 mg tablet 1,000 mg PO Q6H Qty: 100 0RF Eliquis 2.5 mg tablet 2.5 mg PO BID Qty: 42 0RF oxycodone 5 mg tablet 5 - 10 mg PO Q4H PRN (Reason: pain) 7 Days Qty: 60 0RF Rx Instructions: Take with food and minimize use. Can cause nausea. ondansetron 4 mg tablet,disintegrating 4 mg PO Q4H PRN (Reason: nausea and vomiting) Qty: 10 2RF Continued Cholecalciferol (Vitamin D3) [Vitamin D3] 5,000 UNIT capsule 2 tab PO DAILY folic acid 1 mg tablet 1 mg PO DAILY Patient Comments: TAKE 2 TABLETS BY MOUTH DAILY turmeric 400 mg capsule 800 mg PO DAILY Held methotrexate sodium 2.5 mg tablet 15 mg PO WE Hold Instructions: Resume on 08/13/24. CBD GUMMY 8 mg 8 mg PO QHS Hold Instructions: until off of narcotics Discontinued tramadol 50 mg tablet 50 mg PO Q6H PRN (Reason: pain) Other Ambulatory Orders: 12 Lead EKG (Routine) Timeframe: 20240705 Location: None Selected Ordered By: Dr. Negro Johnson Referrals / Follow Up: Patt Joy DO [Primary Care Provider] -
--- NOTE | 2024-07-18 09:50 | CASEMGMT ---
TC to [facility] to check cost of eliquis, cost is $32.89 per Delmy.
[2024-07-18 11:32] VITALS: BP 150/53; PULSE 90; RESP 16; TEMP 36.8; O2SAT 99
== END 2024-07-18 13:22 | disposition home or self-care (01) | DRG 470 ==
LOC: MS3 17:16
PROVIDERS: Admitting Provider Orthopaedic Surgery; PCP Internal Medicine; Referring Provider Orthopaedic Surgery; Visit Provider Orthopaedic Surgery
PROC: 8E0Y0CZ Robotic Assisted Procedure of Lower Extremity, Open Approach (ICD-10-PCS; CPT 27130; principal; 2024-07-16 08:30)
DX: M16.7 Other unilateral secondary osteoarthritis of hip (principal); M87.051 Idiopathic aseptic necrosis of right femur; G62.9 Polyneuropathy, unspecified; M76.31 Iliotibial band syndrome, right leg; M47.816 Spondylosis without myelopathy or radiculopathy, lumbar region; R11.0 Nausea; M65.95 Unspecified synovitis and tenosynovitis, thigh
CPT/HCPCS: 36415; 73502; 80048; 82962; 85027; 86850; 86900; 86901; 88305; 88311; 94668; 97116; 97162; 97166; 97530; 97535; C1713; C1776; A4216; J2405; J3475

== ENCOUNTER 2024-07-26 07:30 | Inpatient (IN) | payer MEDICARE, SELFPAY ==
[2024-07-26 07:31] VITALS: BP 176/80; PULSE 92; PULSE 97; RESP 16; RESP 17; TEMP 36.8; O2SAT 97; BMI 33.8
[2024-07-26] MEDS: Morphine 4 MG/ML Syringe IV (07:43)
[2024-07-26] MEDS: Ondansetron 4 MG/2 ML Vial IV (07:43)
[2024-07-26 08:22] LABS: Absolute Lymphocyte Count 1.63 X10^3/uL (0.83-4.51); Absolute Neutrophil Count 5.6 X10^3/uL (2.0-7.7); Basophil# 0.04 X10^3/uL; Basophil% 0.5 % (0-1); Eosinophil# 0.06 X10^3/uL; Eosinophils% 0.8 % (0-5); Hematocrit 28.8 % (37-47); Hemoglobin 9.5 g/dL (12.0-15.0); Lymphocyte # 1.63 X10^3/ul (0.83-4.51); Lymphocyte % 20.4 % (19-41); Mean Corpuscular Hgb 30.6 pg (27.0-32.0); Mean Corpuscular Volume 92.9 fL (81-99); Mean Platelet Vol. 8.6 fl (6.2-12.0); Monocyte# 0.64 X10^3/uL; NRBC Flagged by Analyzer 0 % (0-5); Neutrophil # 5.59 X10^3/uL (2.7-7.7); Neutrophil % 69.8 % (47-70); Platelet Count 453 K/mm3 (150-450); RBC Distribution Width CV 14.6 % (11.6-14.6); RBC Distribution Width SD 49.5 fl (35.1-43.9)
[2024-07-26 08:39] LABS: Anion Gap 7 (5-15); BUN 12 mg/dL (7-18); Calcium,Total 8.5 mg/dL (8.5-10.1); Chloride 106 mmol/L (98-107); Creatinine, Serum 0.71 mg/dL (0.55-1.02); EST Glomerular Filtration Rate 87 mL/min (>60); Est Glom Filt Rate - Afr Amer 105 mL/min (>60); Estimated Creatinine Clearance 58.79 ml/min; Glucose 135 mg/dL (74-106); Potassium 2.5 mmol/L (3.5-5.1); Sodium Level 142 mmol/L (136-145)
[2024-07-26] MEDS: morphine 8 MG/ML Syringe 6 MG IV (08:57)
[2024-07-26 09:10] LABS: Phosphorus 2.6 mg/dL (2.5-4.9)
[2024-07-26] MEDS: Potassium Chloride Oral Soln 20 MEQ/15 ML UDC 40 MEQ PO ×2 (09:19→09:48)
[2024-07-26] MEDS: Potassium Chloride 10mEq/100mL 10 MEQ/100 ML IV.SOLN. 100 MEQ IV BOLUS ×2 (09:20→10:33)
[2024-07-26 09:50] VITALS: BP 185/55; PULSE 90; RESP 16; TEMP 36.6; O2SAT 97
[2024-07-26 10:16] VITALS: BMI 32.7
[2024-07-26 10:22] VITALS: BP 175/100; PULSE 100; RESP 16; TEMP 36.8; O2SAT 98
[2024-07-26] MEDS: HYDROmorphone 0.5 MG/0.5 ML SYRINGE IV ×2 (10:29→18:13)
[2024-07-26] MEDS: Bisacodyl 5 MG Tablet PO (11:18)
[2024-07-26] MEDS: Potassium Phosphate 21 MM in 0.9% Normal Saline (250mL Bag) 250 ML 84 MM IV (11:53)
[2024-07-26] MEDS: Lisinopril 10 MG Tablet PO (11:56)
[2024-07-26] MEDS: Acetaminophen 500 MG Tablet 1000 MG PO ×2 (12:35→23:01)
[2024-07-26] MEDS: oxyCODONE 5 MG Tablet PO (14:54)
[2024-07-26 14:57] VITALS: BP 137/55; PULSE 90; RESP 16; TEMP 36.9; O2SAT 99
[2024-07-26 17:53] LABS: Potassium 3.9 mmol/L (3.5-5.1)
[2024-07-26] MEDS: 0.9% Saline Lock 10 ML Syringe IV (18:14)
[2024-07-26] MEDS: tiZANidine HCl 2 MG Tablet 4 MG PO (20:26)
[2024-07-26 23:04] VITALS: BP 97/43; PULSE 75; RESP 16; TEMP 36.7; O2SAT 97
[2024-07-27] MEDS: oxyCODONE 5 MG Tablet PO ×5 (01:36→23:48)
[2024-07-27 03:17] VITALS: BP 137/66; PULSE 77; RESP 16; TEMP 36.7; O2SAT 99
[2024-07-27] MEDS: HYDROmorphone 0.5 MG/0.5 ML SYRINGE IV (03:21)
[2024-07-27] MEDS: 0.9% Saline Lock 10 ML Syringe IV ×2 (03:22→11:44)
[2024-07-27 05:50] LABS: Absolute Lymphocyte Count 1.22 X10^3/uL (0.83-4.51); Absolute Neutrophil Count 5.8 X10^3/uL (2.0-7.7); Basophil# 0.05 X10^3/uL; Basophil% 0.6 % (0-1); Eosinophil# 0.04 X10^3/uL; Eosinophils% 0.5 % (0-5); Hematocrit 26.8 % (37-47); Hemoglobin 8.7 g/dL (12.0-15.0); Lymphocyte # 1.22 X10^3/ul (0.83-4.51); Lymphocyte % 15.6 % (19-41); Mean Corp Hgb Conc 32.5 g/dL (32-36); Mean Corpuscular Hgb 30.5 pg (27.0-32.0); Mean Platelet Vol. 8.7 fl (6.2-12.0); Monocyte# 0.63 X10^3/uL; Monocyte% 8.1 % (0-10); NRBC Flagged by Analyzer 0 % (0-5); Neutrophil # 5.83 X10^3/uL (2.7-7.7); Neutrophil % 74.7 % (47-70); Platelet Count 400 K/mm3 (150-450); RBC Distribution Width CV 14.7 % (11.6-14.6); RBC Distribution Width SD 50.9 fl (35.1-43.9); Red Blood Count 2.85 M/mm3 (4.2-5.4); White Blood Count 7.8 K/mm3 (4.4-11.0)
[2024-07-27] MEDS: Acetaminophen 500 MG Tablet 1000 MG PO ×3 (06:05→20:28)
[2024-07-27 06:11] LABS: Anion Gap 6 (5-15); BUN 10 mg/dL (7-18); Chloride 107 mmol/L (98-107); Creatinine, Serum 0.56 mg/dL (0.55-1.02); EST Glomerular Filtration Rate 115 mL/min (>60); Est Glom Filt Rate - Afr Amer 139 mL/min (>60); Estimated Creatinine Clearance 57.73 ml/min; Glucose 110 mg/dL (74-106); Potassium 3.6 mmol/L (3.5-5.1); Sodium Level 138 mmol/L (136-145)
[2024-07-27 08:20] VITALS: BP 151/73; PULSE 91; RESP 18; TEMP 36.6; O2SAT 96
[2024-07-27] MEDS: Folic Acid 1 MG Tablet PO (08:31)
[2024-07-27] MEDS: Cholecalciferol (Vit D3) 125 MCG CAPSULE (5,000 UNITS) 250 MCG PO (08:31)
[2024-07-27] MEDS: Lisinopril 10 MG Tablet PO ×2 (08:31→20:28)
[2024-07-27 11:40] VITALS: BP 167/68; PULSE 81; RESP 18; TEMP 36.8; O2SAT 98
[2024-07-27] MEDS: Gabapentin 100 MG Capsule PO ×2 (11:43→16:40)
[2024-07-27] MEDS: HYDROmorphone 1 MG/ML Syringe 0.5 MG IV ×2 (11:44→20:29)
[2024-07-27 12:50] VITALS: BP 147/67; PULSE 96; RESP 18; TEMP 36.9; O2SAT 95
[2024-07-27 16:35] VITALS: BP 164/64; PULSE 88; RESP 18; TEMP 36.7; O2SAT 97
[2024-07-27 20:26] VITALS: BP 156/72; PULSE 96; RESP 18; TEMP 37.1; O2SAT 98
[2024-07-27] MEDS: tiZANidine HCl 2 MG Tablet 4 MG PO (23:48)
[2024-07-28] VITALS (13 sets, daily range): BP systolic 113–147; BP diastolic 52–105; PULSE 74–104; RESP 16–20; TEMP 36.3–36.9; O2SAT 94–100
[2024-07-28] MEDS: HYDROmorphone 1 MG/ML Syringe 0.5 MG IV ×2 (02:21→12:34)
[2024-07-28 04:39] LABS: Absolute Lymphocyte Count 1.45 X10^3/uL (0.83-4.51); Absolute Neutrophil Count 5.1 X10^3/uL (2.0-7.7); Basophil# 0.03 X10^3/uL; Basophil% 0.4 % (0-1); Eosinophil# 0.03 X10^3/uL; Eosinophils% 0.4 % (0-5); Hematocrit 26.5 % (37-47); Hemoglobin 8.6 g/dL (12.0-15.0); Lymphocyte # 1.45 X10^3/ul (0.83-4.51); Lymphocyte % 19.7 % (19-41); Mean Corp Hgb Conc 32.5 g/dL (32-36); Mean Corpuscular Hgb 30.4 pg (27.0-32.0); Mean Corpuscular Volume 93.6 fL (81-99); Mean Platelet Vol. 8.6 fl (6.2-12.0); Monocyte# 0.72 X10^3/uL; Monocyte% 9.8 % (0-10); NRBC Flagged by Analyzer 0 % (0-5); Neutrophil # 5.12 X10^3/uL (2.7-7.7); Neutrophil % 69.4 % (47-70); Platelet Count 382 K/mm3 (150-450); RBC Distribution Width CV 14.7 % (11.6-14.6); RBC Distribution Width SD 49.9 fl (35.1-43.9); Red Blood Count 2.83 M/mm3 (4.2-5.4); White Blood Count 7.4 K/mm3 (4.4-11.0)
[2024-07-28 04:55] LABS: Anion Gap 6 (5-15); BUN 8 mg/dL (7-18); BUN/Creat Ratio 12.4 RATIO (10-20); Calcium,Total 8.1 mg/dL (8.5-10.1); Chloride 108 mmol/L (98-107); Creatinine, Serum 0.65 mg/dL (0.55-1.02); EST Glomerular Filtration Rate 96 mL/min (>60); Est Glom Filt Rate - Afr Amer 116 mL/min (>60); Estimated Creatinine Clearance 57.73 ml/min; Glucose 113 mg/dL (74-106); Potassium 3.5 mmol/L (3.5-5.1); Sodium Level 140 mmol/L (136-145)
[2024-07-28] MEDS: Cefazolin 2 GM in Syringe IV ×3 (07:55→20:05)
[2024-07-28] MEDS: TRANEXAMIC ACID 2,000 MG in 0.9% Normal Saline (100mL Bag) 100 ML 440 MG IV (08:02)
[2024-07-28] MEDS: 0.9% Normal Saline (1000mL) 1,000 ML 15 ML IV ×2 (08:45→10:50)
[2024-07-28] MEDS: 0.9% Saline Lock 10 ML Syringe IV ×2 (12:34→14:07)
[2024-07-28] MEDS: Lisinopril 10 MG Tablet PO ×2 (12:34→20:06)
[2024-07-28] MEDS: Gabapentin 100 MG Capsule PO ×2 (12:40→16:28)
[2024-07-28] MEDS: Lactated Ringers 1,000 ML 125 ML IV (12:44)
[2024-07-28] MEDS: Acetaminophen 500 MG Tablet 1000 MG PO ×2 (13:22→20:05)
[2024-07-28] MEDS: Potassium Chloride Oral Tablet 20 MEQ 40 MEQ PO ×2 (13:22→16:27)
[2024-07-28] MEDS: oxyCODONE 5 MG Tablet PO (13:22)
[2024-07-28] MEDS: HYDROmorphone 1 MG/ML Syringe IV ×2 (14:07→20:06)
[2024-07-28] MEDS: tiZANidine HCl 2 MG Tablet 4 MG PO (14:07)
[2024-07-28] MEDS: oxyCODONE 5 MG Tablet 15 MG PO (16:28)
[2024-07-28] MEDS: Senna/Docusate Sodium 1 Tablet 2 TABLET PO (20:07)
[2024-07-29] MEDS: oxyCODONE 5 MG Tablet 15 MG PO ×5 (00:51→22:26)
[2024-07-29] MEDS: 0.9% Saline Lock 10 ML Syringe IV ×3 (02:51→21:55)
[2024-07-29] MEDS: HYDROmorphone 1 MG/ML Syringe IV ×2 (02:53→10:01)
[2024-07-29 03:00] VITALS: BP 121/54; PULSE 79; RESP 16; TEMP 37; O2SAT 96
[2024-07-29] MEDS: tiZANidine HCl 2 MG Tablet 4 MG PO ×2 (05:44→21:55)
[2024-07-29] MEDS: Cefazolin 2 GM in Syringe IV ×3 (05:44→21:55)
[2024-07-29] MEDS: Acetaminophen 500 MG Tablet 1000 MG PO ×3 (05:44→21:56)
[2024-07-29] MEDS: APIXABAN 2.5 MG TABLET (WCH) PO ×2 (06:30→21:56)
[2024-07-29 07:13] LABS: Absolute Lymphocyte Count 1.32 X10^3/uL (0.83-4.51); Absolute Neutrophil Count 9.9 X10^3/uL (2.0-7.7); Basophil# 0.05 X10^3/uL; Basophil% 0.4 % (0-1); Eosinophil# 0.01 X10^3/uL; Eosinophils% 0.1 % (0-5); Hematocrit 24.5 % (37-47); Hemoglobin 7.9 g/dL (12.0-15.0); Lymphocyte # 1.32 X10^3/ul (0.83-4.51); Lymphocyte % 10.2 % (19-41); Mean Corp Hgb Conc 32.2 g/dL (32-36); Mean Corpuscular Hgb 30.9 pg (27.0-32.0); Mean Corpuscular Volume 95.7 fL (81-99); Monocyte# 1.54 X10^3/uL; NRBC Flagged by Analyzer 0 % (0-5); Neutrophil # 9.87 X10^3/uL (2.7-7.7); Neutrophil % 76.6 % (47-70); POSITIVE DIFFERENTIAL YES; Platelet Count 415 K/mm3 (150-450); RBC Distribution Width SD 51.8 fl (35.1-43.9); Red Blood Count 2.56 M/mm3 (4.2-5.4); White Blood Count 12.9 K/mm3 (4.4-11.0)
[2024-07-29 07:24] LABS: Differential Indicated SCAN CRITERIA MET
[2024-07-29 07:49] LABS: Anion Gap 6 (5-15); BUN 13 mg/dL (7-18); BUN/Creat Ratio 13.8 RATIO (10-20); Calcium,Total 7.2 mg/dL (8.5-10.1); Chloride 109 mmol/L (98-107); Creatinine, Serum 0.94 mg/dL (0.55-1.02); EST Glomerular Filtration Rate 62 mL/min (>60); Est Glom Filt Rate - Afr Amer 75 mL/min (>60); Estimated Creatinine Clearance 49.13 ml/min; Glucose 118 mg/dL (74-106); Potassium 4.1 mmol/L (3.5-5.1); Sodium Level 137 mmol/L (136-145)
[2024-07-29 08:04] VITALS: O2SAT 95
[2024-07-29] MEDS: Lisinopril 10 MG Tablet PO (08:19)
[2024-07-29] MEDS: Folic Acid 1 MG Tablet PO (08:19)
[2024-07-29] MEDS: Cholecalciferol (Vit D3) 125 MCG CAPSULE (5,000 UNITS) 250 MCG PO (08:19)
[2024-07-29] MEDS: Gabapentin 100 MG Capsule PO ×3 (08:22→16:37)
[2024-07-29 09:12] LABS: Anisocytosis 2+; Differential Comment SCANNED; Platelet Estimate SLT INC (ADEQ)
[2024-07-29 09:13] LABS: Macrocytosis 1+; Ovalocyte 1+; Target Cells RARE
[2024-07-29 09:18] VITALS: BP 105/49; PULSE 107; RESP 16; TEMP 37.1; O2SAT 98
[2024-07-29 11:18] VITALS: BP 104/46; PULSE 95; RESP 16; TEMP 36.9; O2SAT 94
[2024-07-29 17:04] VITALS: BP 103/34; PULSE 97; RESP 16; TEMP 37.1; O2SAT 98
[2024-07-29 22:16] VITALS: BP 125/57; PULSE 98; RESP 16; TEMP 36.8; O2SAT 94
[2024-07-30 05:30] VITALS: BP 117/94; PULSE 97; RESP 16; TEMP 36.6; O2SAT 98
[2024-07-30] MEDS: Cefazolin 2 GM in Syringe IV ×3 (05:30→21:29)
[2024-07-30] MEDS: Acetaminophen 500 MG Tablet 1000 MG PO ×3 (05:30→21:31)
[2024-07-30] MEDS: 0.9% Saline Lock 10 ML Syringe IV ×2 (05:30→08:28)
[2024-07-30 06:34] LABS: Hematocrit 24.2 % (37-47); Hemoglobin 7.4 g/dL (12.0-15.0); Mean Corp Hgb Conc 30.6 g/dL (32-36); Mean Corpuscular Hgb 30.1 pg (27.0-32.0); Mean Corpuscular Volume 98.4 fL (81-99); Platelet Count 353 K/mm3 (150-450); RBC Distribution Width CV 15.1 % (11.6-14.6); RBC Distribution Width SD 54.1 fl (35.1-43.9); Red Blood Count 2.46 M/mm3 (4.2-5.4); White Blood Count 16.8 K/mm3 (4.4-11.0)
[2024-07-30 07:07] LABS: Anion Gap 7 (5-15); BUN 22 mg/dL (7-18); BUN/Creat Ratio 17.3 RATIO (10-20); Calcium,Total 7.6 mg/dL (8.5-10.1); Chloride 109 mmol/L (98-107); Creatinine, Serum 1.27 mg/dL (0.55-1.02); EST Glomerular Filtration Rate 44 mL/min (>60); Est Glom Filt Rate - Afr Amer 53 mL/min (>60); Estimated Creatinine Clearance 36.36 ml/min; Glucose 107 mg/dL (74-106); Potassium 4.1 mmol/L (3.5-5.1); Sodium Level 135 mmol/L (136-145)
[2024-07-30 07:52] VITALS: BP 101/33; PULSE 94; RESP 16; TEMP 37.3; O2SAT 95
[2024-07-30] MEDS: Naloxone 0.4 MG/ML Syringe IV (08:28)
[2024-07-30 08:46] LABS: Allen Test Positive; Base Excess -3 mmol/L (-2 to +2); Bicarbonate 20.1 mmol/L (22-26); Blood Gas Specimen Type ART; Mode Not entered; O2 Delivery Device Room Air; PO2 96 mmHG (75-100); SITE L Radial; SO2 98 % (95-99); Total Carbon Dioxide 21 mmol/L; pH 7.51 (7.35-7.45)
[2024-07-30 09:17] LABS: Bacteria 0 SEEN /hpf (None Seen); Mucous, Urine 0 SEEN /hpf (<or=2+); Red Blood Cells-Urine 0 SEEN /hpf (0-5); Squamous Epithelial Cells - UA 0 SEEN /hpf (5-10)
[2024-07-30 09:19] LABS: Color, Urine Yellow (Yellow); Glucose, Dipstick Normal (Normal); Ketone-Dipstick Negative (Negative); Leukocyte Esterase-Dipstick Negative /ul (Negative); Nitrite-Dipstick Negative (Negative); Occult Blood-Urine Negative /ul (Negative); Protein-Dipstick 15 mg/dl (Negative); Urine Bilirubin Dipstick Negative (Negative); Urine Clarity Clear (Clear); Urine Urobilinogen Normal (Normal); Urine pH 6.5 (5.0 - 8.0)
[2024-07-30 09:25] LABS: White Blood Cells 0-5 SEEN /hpf (0-5)
[2024-07-30 09:45] LABS: Amphetamine Urine VISTA NEGATIVE (<1000 ng/mL); Barbiturate Urine VISTA NEGATIVE (< 200 ng/mL); Benzodiazepine Urine VISTA POSITIVE (< 200 ng/mL); Cocaine Urine VISTA NEGATIVE (< 300 ng/mL); Ecstacy Urine VISTA NEGATIVE (< 500 ng/mL); Methadone Urine VISTA NEGATIVE (< 300 ng/mL); PCP Urine VISTA NEGATIVE (< 25 ng/mL); THC Urine VISTA POSITIVE (< 50 ng/mL); Vista UDS pH Range 6
[2024-07-30 10:19] LABS: Bedside Glucose 128 mg/dL (74-106)
[2024-07-30] MEDS: APIXABAN 2.5 MG TABLET (WCH) PO ×2 (11:15→21:30)
[2024-07-30 11:28] VITALS: BP 132/41; PULSE 118; RESP 24; TEMP 37.5; O2SAT 98
[2024-07-30 14:09] VITALS: BP 123/45; PULSE 102; RESP 18; TEMP 36.8; O2SAT 95
[2024-07-30] MEDS: 0.9% Normal Saline (1000mL) 1,000 ML 125 ML IV (18:35)
[2024-07-30 21:25] VITALS: BP 155/85; PULSE 120; RESP 18; TEMP 36.7; O2SAT 98
[2024-07-30] MEDS: Senna/Docusate Sodium 1 Tablet 2 TABLET PO (21:30)
[2024-07-30] MEDS: Lisinopril 10 MG Tablet PO (21:31)
[2024-07-31] VITALS (13 sets, daily range): BP systolic 113–165; BP diastolic 55–90; PULSE 80–108; RESP 15–18; TEMP 36.6–37.2; O2SAT 95–100
[2024-07-31] MEDS: 0.9% Normal Saline (1000mL) 1,000 ML 125 ML IV (02:43)
[2024-07-31] MEDS: Cefazolin 2 GM in Syringe IV ×3 (05:55→21:56)
[2024-07-31] MEDS: Acetaminophen 500 MG Tablet 1000 MG PO ×3 (05:56→20:14)
[2024-07-31 06:45] LABS: Hemoglobin 6.4 g/dL (12.0-15.0); Mean Corpuscular Hgb 30.5 pg (27.0-32.0); Mean Corpuscular Volume 95.2 fL (81-99); Mean Platelet Vol. 8.8 fl (6.2-12.0); Platelet Count 367 K/mm3 (150-450); RBC Distribution Width CV 14.9 % (11.6-14.6); RBC Distribution Width SD 52.5 fl (35.1-43.9); White Blood Count 8.8 K/mm3 (4.4-11.0)
[2024-07-31 07:23] LABS: Anion Gap 5 (5-15); BUN 15 mg/dL (7-18); BUN/Creat Ratio 26.6 RATIO (10-20); Calcium,Total 7.2 mg/dL (8.5-10.1); Chloride 113 mmol/L (98-107); Creatinine, Serum 0.56 mg/dL (0.55-1.02); EST Glomerular Filtration Rate 112 mL/min (>60); Est Glom Filt Rate - Afr Amer 136 mL/min (>60); Estimated Creatinine Clearance 57.73 ml/min; Glucose 104 mg/dL (74-106); Potassium 3.6 mmol/L (3.5-5.1); Sodium Level 139 mmol/L (136-145)
[2024-07-31 09:35] LABS: Ferritin 115 ng/mL (8-252); Iron 9 ug/dL (50-170); Iron Binding Capacity,Total 305 ug/dL (250-450)
[2024-07-31] MEDS: 0.9% Saline Lock 10 ML Syringe IV ×3 (09:39→14:20)
[2024-07-31] MEDS: Pantoprazole Sodium 40 MG in 0.9% Normal Saline (100mL MB+) 100 ML 330 MG IV ×2 (09:42→20:14)
[2024-07-31] MEDS: Cholecalciferol (Vit D3) 125 MCG CAPSULE (5,000 UNITS) 250 MCG PO (09:49)
[2024-07-31] MEDS: Folic Acid 1 MG Tablet PO (09:49)
[2024-07-31] MEDS: Lisinopril 10 MG Tablet PO ×2 (09:50→20:19)
[2024-07-31] MEDS: Menthol/Lanolin/Calamine/Znox 113 GM Tube 1 APPLIC TOPICAL (20:13)
[2024-08-01] VITALS (7 sets, daily range): BP systolic 136–160; BP diastolic 54–80; PULSE 80–95; RESP 17–18; TEMP 36.1–36.9; O2SAT 95–98
[2024-08-01] MEDS: Cefazolin 2 GM in Syringe IV ×3 (05:25→21:28)
[2024-08-01] MEDS: Acetaminophen 500 MG Tablet 1000 MG PO ×3 (05:25→21:29)
[2024-08-01] MEDS: 0.9% Saline Lock 10 ML Syringe IV ×3 (05:26→21:40)
[2024-08-01 07:22] LABS: Absolute Lymphocyte Count 0.96 X10^3/uL (0.83-4.51); Absolute Neutrophil Count 5.4 X10^3/uL (2.0-7.7); Basophil# 0.03 X10^3/uL; Basophil% 0.4 % (0-1); Eosinophil# 0.02 X10^3/uL; Eosinophils% 0.3 % (0-5); Hematocrit 26.5 % (37-47); Hemoglobin 8.8 g/dL (12.0-15.0); Lymphocyte # 0.96 X10^3/ul (0.83-4.51); Lymphocyte % 13.3 % (19-41); Mean Corp Hgb Conc 33.2 g/dL (32-36); Mean Corpuscular Hgb 29.9 pg (27.0-32.0); Mean Corpuscular Volume 90.1 fL (81-99); Mean Platelet Vol. 8.7 fl (6.2-12.0); Monocyte# 0.71 X10^3/uL; Monocyte% 9.8 % (0-10); NRBC Flagged by Analyzer 0.3 % (0-5); Neutrophil # 5.44 X10^3/uL (2.7-7.7); Neutrophil % 75.2 % (47-70); Platelet Count 408 K/mm3 (150-450); RBC Distribution Width CV 15.4 % (11.6-14.6); RBC Distribution Width SD 49.7 fl (35.1-43.9); Red Blood Count 2.94 M/mm3 (4.2-5.4); White Blood Count 7.2 K/mm3 (4.4-11.0)
[2024-08-01 07:45] LABS: Anion Gap 6 (5-15); BUN 9 mg/dL (7-18); BUN/Creat Ratio 17.9 RATIO (10-20); Calcium,Total 7.6 mg/dL (8.5-10.1); Chloride 114 mmol/L (98-107); EST Glomerular Filtration Rate 129 mL/min (>60); Est Glom Filt Rate - Afr Amer 156 mL/min (>60); Estimated Creatinine Clearance 57.73 ml/min; Glucose 102 mg/dL (74-106); Potassium 3.3 mmol/L (3.5-5.1); Sodium Level 142 mmol/L (136-145)
[2024-08-01] MEDS: Folic Acid 1 MG Tablet PO (09:39)
[2024-08-01] MEDS: Menthol/Lanolin/Calamine/Znox 113 GM Tube 1 APPLIC TOPICAL ×2 (09:39→21:30)
[2024-08-01] MEDS: Cholecalciferol (Vit D3) 125 MCG CAPSULE (5,000 UNITS) 250 MCG PO (09:39)
[2024-08-01] MEDS: Lisinopril 10 MG Tablet PO ×2 (09:39→21:29)
[2024-08-01] MEDS: Pantoprazole Sodium 40 MG in 0.9% Normal Saline (100mL MB+) 100 ML 330 MG IV ×2 (09:41→21:28)
[2024-08-01] MEDS: 0.9% Normal Saline (500mL Bag) 500 ML 15 ML IV (09:43)
[2024-08-02] VITALS (13 sets, daily range): BP systolic 115–165; BP diastolic 52–78; PULSE 73–98; RESP 12–18; TEMP 36.3–37; O2SAT 95–100; BMI 32.7
[2024-08-02] MEDS: 0.9% Saline Lock 10 ML Syringe IV ×2 (05:22→15:55)
[2024-08-02] MEDS: Cefazolin 2 GM in Syringe IV ×3 (05:22→20:15)
[2024-08-02] MEDS: Acetaminophen 500 MG Tablet 1000 MG PO ×3 (05:22→20:17)
[2024-08-02 06:32] LABS: Absolute Lymphocyte Count 1.16 X10^3/uL (0.83-4.51); Absolute Neutrophil Count 4.4 X10^3/uL (2.0-7.7); Basophil# 0.03 X10^3/uL; Basophil% 0.5 % (0-1); Eosinophil# 0.06 X10^3/uL; Eosinophils% 0.9 % (0-5); Hemoglobin 8.6 g/dL (12.0-15.0); Lymphocyte # 1.16 X10^3/ul (0.83-4.51); Lymphocyte % 17.9 % (19-41); Mean Corp Hgb Conc 33.1 g/dL (32-36); Mean Corpuscular Hgb 29.8 pg (27.0-32.0); Mean Platelet Vol. 8.5 fl (6.2-12.0); Monocyte# 0.77 X10^3/uL; Monocyte% 11.9 % (0-10); NRBC Flagged by Analyzer 0 % (0-5); Neutrophil # 4.43 X10^3/uL (2.7-7.7); Neutrophil % 68.2 % (47-70); Platelet Count 430 K/mm3 (150-450); RBC Distribution Width CV 15.3 % (11.6-14.6); RBC Distribution Width SD 49.8 fl (35.1-43.9); Red Blood Count 2.89 M/mm3 (4.2-5.4); White Blood Count 6.5 K/mm3 (4.4-11.0)
[2024-08-02 06:45] LABS: International Normalized Ratio 1.3; Partial Thromboplast Time 33.1 Seconds (24.1-36.2)
[2024-08-02 06:50] LABS: Anion Gap 6 (5-15); BUN 8 mg/dL (7-18); BUN/Creat Ratio 12.5 RATIO (10-20); Calcium,Total 7.6 mg/dL (8.5-10.1); Chloride 111 mmol/L (98-107); Creatinine, Serum 0.64 mg/dL (0.55-1.02); EST Glomerular Filtration Rate 97 mL/min (>60); Est Glom Filt Rate - Afr Amer 118 mL/min (>60); Estimated Creatinine Clearance 57.73 ml/min; Glucose 118 mg/dL (74-106); Potassium 2.9 mmol/L (3.5-5.1); Sodium Level 142 mmol/L (136-145)
[2024-08-02] MEDS: Potassium Chloride 10mEq/100mL 10 MEQ/100 ML IV.SOLN. 100 MEQ IV BOLUS (08:37)
[2024-08-02 09:08] LABS: Magnesium 2.1 mg/dL (1.6-2.6)
[2024-08-02] MEDS: Folic Acid 1 MG Tablet PO (10:38)
[2024-08-02] MEDS: Cholecalciferol (Vit D3) 125 MCG CAPSULE (5,000 UNITS) 250 MCG PO (10:38)
[2024-08-02] MEDS: Lisinopril 10 MG Tablet PO ×2 (10:38→20:18)
[2024-08-02] MEDS: Menthol/Lanolin/Calamine/Znox 113 GM Tube 1 APPLIC TOPICAL ×2 (10:39→20:27)
[2024-08-02] MEDS: Pantoprazole Sodium 40 MG in 0.9% Normal Saline (100mL MB+) 100 ML 330 MG IV ×2 (10:49→20:16)
[2024-08-02] MEDS: Potassium Chloride Oral Tablet 20 MEQ 60 MEQ PO (12:59)
[2024-08-03] VITALS (7 sets, daily range): BP systolic 149–169; BP diastolic 58–82; PULSE 81–89; RESP 16; TEMP 36–37.2; O2SAT 97–100
[2024-08-03 05:04] LABS: Absolute Lymphocyte Count 1.12 X10^3/uL (0.83-4.51); Absolute Neutrophil Count 3.8 X10^3/uL (2.0-7.7); Basophil# 0.04 X10^3/uL; Basophil% 0.7 % (0-1); Eosinophil# 0.14 X10^3/uL; Eosinophils% 2.4 % (0-5); Hematocrit 26.4 % (37-47); Hemoglobin 8.8 g/dL (12.0-15.0); Lymphocyte # 1.12 X10^3/ul (0.83-4.51); Lymphocyte % 19.5 % (19-41); Mean Corp Hgb Conc 33.3 g/dL (32-36); Mean Corpuscular Hgb 29.7 pg (27.0-32.0); Mean Corpuscular Volume 89.2 fL (81-99); Mean Platelet Vol. 8.5 fl (6.2-12.0); Monocyte# 0.64 X10^3/uL; Monocyte% 11.1 % (0-10); NRBC Flagged by Analyzer 0 % (0-5); Neutrophil # 3.77 X10^3/uL (2.7-7.7); Neutrophil % 65.8 % (47-70); Platelet Count 432 K/mm3 (150-450); RBC Distribution Width CV 15.2 % (11.6-14.6); Red Blood Count 2.96 M/mm3 (4.2-5.4); White Blood Count 5.7 K/mm3 (4.4-11.0)
[2024-08-03] MEDS: Acetaminophen 500 MG Tablet 1000 MG PO ×3 (05:25→21:53)
[2024-08-03] MEDS: Cefazolin 2 GM in Syringe IV ×3 (05:25→21:51)
[2024-08-03 05:30] LABS: Anion Gap 7 (5-15); BUN 6 mg/dL (7-18); BUN/Creat Ratio 13.1 RATIO (10-20); Calcium,Total 7.8 mg/dL (8.5-10.1); Chloride 110 mmol/L (98-107); Creatinine, Serum 0.46 mg/dL (0.55-1.02); EST Glomerular Filtration Rate 143 mL/min (>60); Est Glom Filt Rate - Afr Amer 173 mL/min (>60); Estimated Creatinine Clearance 57.73 ml/min; Glucose 110 mg/dL (74-106); Potassium 3.1 mmol/L (3.5-5.1); Sodium Level 141 mmol/L (136-145)
[2024-08-03 08:58] LABS: Bedside Glucose 99 mg/dL (74-106)
[2024-08-03] MEDS: Potassium Chloride Oral Tablet 20 MEQ 40 MEQ PO (09:32)
[2024-08-03] MEDS: Folic Acid 1 MG Tablet PO (09:33)
[2024-08-03] MEDS: Cholecalciferol (Vit D3) 125 MCG CAPSULE (5,000 UNITS) 250 MCG PO (09:34)
[2024-08-03] MEDS: APIXABAN 2.5 MG TABLET (WCH) PO ×2 (09:34→21:52)
[2024-08-03] MEDS: Lisinopril 10 MG Tablet PO ×2 (09:34→21:53)
[2024-08-03] MEDS: Pantoprazole Sodium 40 MG in 0.9% Normal Saline (100mL MB+) 100 ML 330 MG IV ×2 (09:35→21:52)
[2024-08-03] MEDS: Menthol/Lanolin/Calamine/Znox 113 GM Tube 1 APPLIC TOPICAL ×2 (09:35→21:51)
[2024-08-03] MEDS: 0.9% Saline Lock 10 ML Syringe IV (09:36)
[2024-08-03] MEDS: Gabapentin 100 MG Capsule PO (19:02)
[2024-08-04] VITALS (8 sets, daily range): BP systolic 142–165; BP diastolic 58–81; PULSE 79–114; RESP 16; TEMP 36.4–36.9; O2SAT 96–99
[2024-08-04] MEDS: Cefazolin 2 GM in Syringe IV ×3 (06:17→22:03)
[2024-08-04] MEDS: Acetaminophen 500 MG Tablet 1000 MG PO ×3 (06:17→22:04)
[2024-08-04] MEDS: 0.9% Saline Lock 10 ML Syringe IV ×3 (06:18→13:49)
[2024-08-04 07:00] LABS: Absolute Lymphocyte Count 1.18 X10^3/uL (0.83-4.51); Absolute Neutrophil Count 3.6 X10^3/uL (2.0-7.7); Basophil# 0.03 X10^3/uL; Basophil% 0.5 % (0-1); Hematocrit 27.2 % (37-47); Hemoglobin 8.9 g/dL (12.0-15.0); Lymphocyte # 1.18 X10^3/ul (0.83-4.51); Lymphocyte % 20.9 % (19-41); Mean Corp Hgb Conc 32.7 g/dL (32-36); Mean Corpuscular Volume 91.6 fL (81-99); Mean Platelet Vol. 8.6 fl (6.2-12.0); Monocyte# 0.75 X10^3/uL; Monocyte% 13.3 % (0-10); NRBC Flagged by Analyzer 0 % (0-5); Neutrophil # 3.64 X10^3/uL (2.7-7.7); Neutrophil % 64.6 % (47-70); Platelet Count 430 K/mm3 (150-450); RBC Distribution Width CV 15.4 % (11.6-14.6); RBC Distribution Width SD 51.4 fl (35.1-43.9); Red Blood Count 2.97 M/mm3 (4.2-5.4); White Blood Count 5.6 K/mm3 (4.4-11.0)
[2024-08-04 08:00] LABS: Anion Gap 8 (5-15); BUN 6 mg/dL (7-18); BUN/Creat Ratio 13.5 RATIO (10-20); Calcium,Total 7.6 mg/dL (8.5-10.1); Chloride 108 mmol/L (98-107); Creatinine, Serum 0.44 mg/dL (0.55-1.02); EST Glomerular Filtration Rate 148 mL/min (>60); Est Glom Filt Rate - Afr Amer 179 mL/min (>60); Estimated Creatinine Clearance 57.73 ml/min; Glucose 109 mg/dL (74-106); Potassium 3.2 mmol/L (3.5-5.1); Sodium Level 140 mmol/L (136-145)
[2024-08-04] MEDS: Gabapentin 100 MG Capsule PO (08:39)
[2024-08-04] MEDS: Potassium Chloride Oral Tablet 20 MEQ 40 MEQ PO (08:40)
[2024-08-04] MEDS: Menthol/Lanolin/Calamine/Znox 113 GM Tube 1 APPLIC TOPICAL ×2 (08:40→22:03)
[2024-08-04] MEDS: APIXABAN 2.5 MG TABLET (WCH) PO ×2 (08:41→22:03)
[2024-08-04] MEDS: Pantoprazole Sodium 40 MG in 0.9% Normal Saline (100mL MB+) 100 ML 330 MG IV ×2 (08:41→22:03)
[2024-08-04] MEDS: Lisinopril 10 MG Tablet PO ×2 (08:42→22:04)
[2024-08-04] MEDS: Cholecalciferol (Vit D3) 125 MCG CAPSULE (5,000 UNITS) 250 MCG PO (08:42)
[2024-08-04] MEDS: Folic Acid 1 MG Tablet PO (08:47)
[2024-08-04] MEDS: Sucralfate 1 GM Tablet PO ×2 (17:38→22:03)
[2024-08-05 03:57] VITALS: BP 154/70; PULSE 80; RESP 16; TEMP 36.8; O2SAT 97
[2024-08-05 06:00] VITALS: BP 154/70; PULSE 80; RESP 16; TEMP 36.8; O2SAT 97
[2024-08-05] MEDS: Cefazolin 2 GM in Syringe IV ×2 (06:31→15:04)
[2024-08-05] MEDS: Acetaminophen 500 MG Tablet 1000 MG PO ×2 (06:31→15:06)
[2024-08-05 06:45] LABS: Absolute Neutrophil Count 4.6 X10^3/uL (2.0-7.7); Basophil# 0.03 X10^3/uL; Basophil% 0.5 % (0-1); Eosinophil# 0.05 X10^3/uL; Eosinophils% 0.8 % (0-5); Hematocrit 27.4 % (37-47); Mean Corp Hgb Conc 32.8 g/dL (32-36); Mean Corpuscular Hgb 29.9 pg (27.0-32.0); Mean Platelet Vol. 8.7 fl (6.2-12.0); Monocyte# 0.71 X10^3/uL; NRBC Flagged by Analyzer 0 % (0-5); Neutrophil # 4.55 X10^3/uL (2.7-7.7); Neutrophil % 70.1 % (47-70); Platelet Count 433 K/mm3 (150-450); RBC Distribution Width CV 15.4 % (11.6-14.6); RBC Distribution Width SD 50.4 fl (35.1-43.9); Red Blood Count 3.01 M/mm3 (4.2-5.4); White Blood Count 6.5 K/mm3 (4.4-11.0)
[2024-08-05 07:07] LABS: Anion Gap 7 (5-15); BUN 7 mg/dL (7-18); BUN/Creat Ratio 16.4 RATIO (10-20); Chloride 108 mmol/L (98-107); Creatinine, Serum 0.43 mg/dL (0.55-1.02); EST Glomerular Filtration Rate 155 mL/min (>60); Est Glom Filt Rate - Afr Amer 188 mL/min (>60); Estimated Creatinine Clearance 57.73 ml/min; Glucose 118 mg/dL (74-106); Potassium 3.1 mmol/L (3.5-5.1); Sodium Level 140 mmol/L (136-145)
[2024-08-05 07:39] VITALS: BP 151/84; PULSE 89; RESP 16; TEMP 36.7; O2SAT 98
[2024-08-05] MEDS: Sucralfate 1 GM Tablet PO ×3 (08:48→16:53)
[2024-08-05] MEDS: Folic Acid 1 MG Tablet PO (09:52)
[2024-08-05] MEDS: Menthol/Lanolin/Calamine/Znox 113 GM Tube 1 APPLIC TOPICAL (09:53)
[2024-08-05] MEDS: APIXABAN 2.5 MG TABLET (WCH) PO (09:54)
[2024-08-05] MEDS: Cholecalciferol (Vit D3) 125 MCG CAPSULE (5,000 UNITS) 250 MCG PO (09:55)
[2024-08-05] MEDS: Lisinopril 10 MG Tablet PO (09:55)
[2024-08-05] MEDS: Pantoprazole Sodium 40 MG in 0.9% Normal Saline (100mL MB+) 100 ML 330 MG IV (09:58)
[2024-08-05 11:53] VITALS: BP 151/64; PULSE 92; RESP 16; TEMP 36.9; O2SAT 100
[2024-08-05] MEDS: Potassium Chloride Oral Tablet 20 MEQ 40 MEQ PO ×2 (12:51→15:12)
[2024-08-05 13:00] VITALS: BP 148/71; PULSE 95; RESP 16; TEMP 36.7; O2SAT 100
[2024-08-05] MEDS: 0.9% Saline Lock 10 ML Syringe IV (16:54)
== END 2024-08-05 18:04 | disposition skilled nursing facility (03) | DRG 466 ==
LOC: ED 08:08 → MS3 09:01 → PCU 07-30 10:23
PROVIDERS: Anesthesiology; Internal Medicine Gastroenterology; Orthopaedic Surgery; Student in an Organized Health Care Education/Training Program; Admitting Provider Internal Medicine; Emergency Provider Emergency Medicine; PCP Internal Medicine; Visit Provider Internal Medicine
PROC: 0SR90JZ Replacement of Right Hip Joint with Synthetic Substitute, Open Approach (ICD-10-PCS; CPT 27130; principal; 2024-07-28 07:35)
PROC: 0DJ08ZZ Inspection of Upper Intestinal Tract, Via Natural or Artificial Opening Endoscopic (ICD-10-PCS; CPT 43235; principal; 2024-08-02 10:25)
DX: M84.651A Pathological fracture in other disease, right femur, initial encounter for fracture (principal); K25.4 Chronic or unspecified gastric ulcer with hemorrhage; G92.8 Other toxic encephalopathy; M97.01XA Periprosthetic fracture around internal prosthetic right hip joint, initial encounter; E87.3 Alkalosis; N17.9 Acute kidney failure, unspecified; K22.10 Ulcer of esophagus without bleeding; M87.251 Osteonecrosis due to previous trauma, right femur; Z51.5 Encounter for palliative care; M06.9 Rheumatoid arthritis, unspecified; I10 Essential (primary) hypertension; D50.9 Iron deficiency anemia, unspecified; E87.6 Hypokalemia; Z66 Do not resuscitate; G89.29 Other chronic pain; Z79.01 Long term (current) use of anticoagulants; Z90.710 Acquired absence of both cervix and uterus; T40.605A Adverse effect of unspecified narcotics, initial encounter
CPT/HCPCS: 36415; 36600; 70450; 71045; 73502; 73560; 80048; 80307; 81001; 82274; 82728; 82803; 82962; 83540; 83550; 83735; 84100; 84132; 85025; 85027; 85610; 85730; 86850; 86900; 86901; 86920; 86922; 87040; 87493; 87506; 88305; 88342; 93005; 94668; 97110; 97116; 97162; 97166; 97530; 97535; 99285; C1713; C1776; J7030; J7040; J7050; J7120; P9016; A4216; J2310; J2405

== ENCOUNTER 2024-08-05 18:39 | Inpatient (IN) | payer MEDICARE, SELFPAY ==
[2024-08-05 18:17] VITALS: BMI 32.9
[2024-08-05 18:18] VITALS: BP 156/73; PULSE 92; RESP 17; TEMP 36.9; O2SAT 98
[2024-08-05] MEDS: oxyCODONE 5 MG Tablet PO (20:27)
[2024-08-05] MEDS: APIXABAN 2.5 MG TABLET (WCH) PO (20:32)
[2024-08-05] MEDS: Sucralfate 1 GM Tablet PO (20:32)
[2024-08-05] MEDS: Pantoprazole Sodium 40 MG Tablet PO (20:33)
[2024-08-05] MEDS: Acetaminophen 500 MG Tablet 1000 MG PO (20:34)
[2024-08-05] MEDS: Lisinopril 10 MG Tablet PO (20:38)
[2024-08-05 20:44] VITALS: PULSE 96; RESP 16; O2SAT 97
--- NOTE | 2024-08-05 20:55 | PCM.HP.STD ---
[facility] - General General Date of Admission: 08/05/24 Date of Service: 08/06/24 Chief Complaint: Here for rehabilitation. HPI Narrative OIRON CONNELL, is a 69 Female who presents with followin07/16/2024 Dr. Johnson performed left total hip arthroplasty. 07/26/2024 [facility] ED lower extremity injury. Severe right hip pain after sitting in wheelchair, felt pop Zofran, Morphine given. K 2.5. X-ray showed right hip periprosthetic fracture. 07/26/2024 Admit [facility]. Prepare for surgery for right hip periprosthetic fracture. PT/OT. 07/27/2024 Replace potassium. Start Lisinopril 10mg twice daily for HTN. 07/28/2024 Dr. Johnson performed revision right femoral component with cerclage cabling for fracture. 07/28/2024 Right hip pain 10 out of 10 with spasms, treated with Dilaudid, Tizanidine. LR IV. K 3.5. 07/29/2024 Right hip pain, ambulated with therapy. Tylenol, Oxycodone, Morphine IV for pain. Blood pressure improved on Lisinopril 10mg twice daily. Eliquis 2.5mg twice daily for DVT prophylaxis. 07/30/2024 Somnolent, lethargic, narcan given, urine tox showed opioids, THC, benzodiazepines. Evaluate for SIRS. Cefazolin IV per Orthopedics. 07/31/2024 Calm today, agitated after narcan. Hemoglobin 6.4, Transfuse 2 units PRBC, hold Eliquis. Encephalopathy 2/2 narcotics. 08/01/2024 Weak, frail. Consult GI for severe iron deficiency anemia, hemoccult negative. 08/02/2024 Dr. Ohara EGD showed normal esophagus, oozing gastric ulcer with visible vessel treated with heater probe, non-bleeding gastric ulcer biopsied, clipped. Pantoprazole 40mg twice daily x 6 months, Sucralfate 1gm bid x 4 weeks. 08/02/2024 Hemoglobin 8.8. 08/03/2024 Weak, tired. Urinalysis, Chest X-ray, blood cultures negative. Resume Eliquis for DVT prophylaxis. C. Diff negtaive, Enteric panel negative for diarrhea. 08/04/2024 Weak, tired, await placement. Opioids held 2/2 lethargy. 08/05/2024 Admit to TCU with debility, here for rehabilitation, strengthening, prior to discharge home with . [facility] Medical History (Updated 08/05/24 @ 21:[address] Young Ng MD) Wears glasses Wears dentures Loss of hearing Marijuana use Walker as ambulation aid PONV (postoperative nausea and vomiting) Shortness of breath on exertion Non-smoker Leg cramps History of edema Cochlear implant in place Tonsillectomy planned Hx of cataract Home Medications ?Medication ?Instructions ?Recorded ?Last Taken ?Type Cholecalciferol (Vitamin D3) 2 tab PO DAILY SUPPLEMENT 02/12/20 07/25/24 History [Vitamin D3] methotrexate sodium 2.5 mg tablet 15 mg PO WE ARTHRITIS 05/01/24 07/24/24 History apixaban 2.5 mg tablet (Eliquis) 2.5 mg PO BID Anticoagulant #42 07/18/24 07/25/24 Rx tabs oxycodone 5 mg tablet 5 - 10 mg (1 - 2 x 5 mg) PO Q6H 07/24/24 07/25/24 Rx PRN Pain Score 6-10/10 7 days #56 tabs acetaminophen 500 mg tablet 1,000 mg (2 x 500 mg) PO Q8 Pain 08/05/24 Unknown Rx #0 tabs ferrous sulfate 325 mg (65 mg 325 mg PO QODAY Supplement #30 tabs 08/05/24 Unknown Rx iron) tablet folic acid 1 mg tablet 1 mg PO DAILYCM Supplement #0 tabs 08/05/24 Unknown Rx lisinopril 10 mg tablet 10 mg PO BID BP #0 tabs 08/05/24 Unknown Rx pantoprazole 40 mg tablet,delayed 40 mg PO BID GERD 30 days #60 tabs 08/05/24 Unknown Rx release (Protonix) sennosides 8.6 mg-docusate sodium 2 tab PO BID Constipation #0 tabs 08/05/24 Unknown Rx 50 mg tablet (Stimulant Laxative Plus) sucralfate 1 gram tablet 1 g PO 1HR_ACHS Stomach Ulcer 30 08/05/24 Unknown Rx days #0 tabs Allergy/AdvReac Type Severity Reaction Status Date / Time latex AdvReac Intermediate Rash Verified 07/26/24 07:39 Surgical History (Updated 08/05/24 @ 21:[address] Young Ng MD) History of revision of total replacement of right hip joint History of hysterectomy History of carpal tunnel release of both wrists Hx of removal of cyst Hx of arthroscopy of right knee Hx of cholecystectomy Social History (Updated 08/05/24 @ 21:[address] Young Ng MD) household members: spouse Smoking Status: Never smoker alcohol intake: never substance use type: does not use ROS Constitutional Constitutional: Reports weakness; Denies chills, fever(s) or weight gain ENT HEENT: Denies headache(s), nasal congestion or nasal discharge Cardiovascular Cardiovascular: Denies chest pain or palpitations Respiratory/Chest Respiratory/Chest: Denies cough, excessive phlegm production or shortness of breath with exertion Gastrointestinal Gastrointestinal: Denies abdominal pain, nausea or vomiting Genitourinary Genitourinary: Denies dysuria Musculoskeletal Musculoskeletal: Denies joint pain or joint swelling Integumentary Integumentary: Denies rash or wounds Neurologic Neurologic: Denies focal weakness, numbness or tingling Psychiatric Psychiatric: Denies anxiety, auditory hallucinations, depression, homicidal ideation or suicidal ideation Vital Signs Vital Signs Vital Signs: 08/05/24 18:18 Temperature 98.5 F Temperature Source Temporal Pulse Rate 92 Respiratory Rate 17 Blood Pressure 156/73 H Blood Pressure Mean 100 Blood Pressure Source Monitor Blood Pressure Position Semi-Fowlers Blood Pressure Location Right Arm Pulse Ox 98 Oxygen Delivery Method Room Air Weight Weight: 73.936 kg Body Mass Index (BMI) 32.9 Physical Exam Const alert General Appearance: cooperative HEENT normocephalic Eyes PERRL and EOMs intact bilaterally Neck supple, no JVD and no carotid bruits Resp normal respiratory effort, normal air movement and clear to auscultation bilaterally Cardio regular rate and regular rhythm GI normal to inspection, nondistended, normoactive bowel sounds, non-tender and non-distended Extremity normal capillary refill General Extremity: Negative for edema Skin no rashes or lesions noted General Skin Exam: no breakdown Psych affect normal Appearance: appropriate Results Lab / Micro Data 08/06/24 05:25 08/06/24 05:25 Assessment & Plan Assessment/Plan (1) Debility: (2) Periprosthetic fracture around internal prosthetic right hip joint: QUALIFIERS: Encounter type: initial encounter Qualified Code(s): M97.01XA - Periprosthetic fracture around internal prosthetic right hip joint, initial encounter (3) Hypokalemia: (4) Essential (primary) hypertension: (5) Encephalopathy: (6) Gastric ulcer: (7) Iron deficiency anemia: (8) Vitamin D deficiency: (9) Rheumatoid arthritis: PLAN: Plan 69 year old female with below past medical history hospitalized for right periprosthetic hip fracture, underwent revision right femoral component with cerclage cabling for fracture 07/28/[address] Johnson, post operative course complicated by HTN, Encephalopathy 2/2 opioids, gastric ulcer, iron deficiency anemia, admitted to TCU with debility, here for rehabilitation, strengthening, prior to discharge home with . Debility - PT/OT. Pain - Tylenol 1000mg q8, Oxycodone 5mg q4 prn pain (1-10). Bowel - senna/colace 2 tablets bid, Dulcolax 10mg pr daily prn, Magnesium citrate 300mL daily prn. Adult immunization - Administer pneumonia vaccine, covid vaccine, flu vaccine as appropriate. DVT prophylaxis - Eliquis 2.5mg bid thru 08/27/2024. Vitamin D deficiency - D3 250mcg daily. Iron deficiency anemia - Ferrex 150mg daily, Vitamin C 500mg daily. Folate deficiency - Folic acid 1mg daily. Hypertension - Losartan 100mg daily. Gastric ulcer - Pantoprazole 40mg bid thru 01/30/2025, Sucralfate 1gm bid thru 09/01/2024.
[2024-08-06] MEDS: oxyCODONE 5 MG Tablet PO ×4 (02:25→20:30)
[2024-08-06 05:49] LABS: Absolute Lymphocyte Count 1.33 X10^3/uL (0.83-4.51); Absolute Neutrophil Count 4.4 X10^3/uL (2.0-7.7); Basophil# 0.03 X10^3/uL; Basophil% 0.4 % (0-1); Eosinophil# 0.18 X10^3/uL; Eosinophils% 2.7 % (0-5); Hematocrit 27.3 % (37-47); Hemoglobin 8.8 g/dL (12.0-15.0); Lymphocyte # 1.33 X10^3/ul (0.83-4.51); Lymphocyte % 19.6 % (19-41); Mean Corp Hgb Conc 32.2 g/dL (32-36); Mean Corpuscular Hgb 29.3 pg (27.0-32.0); Mean Platelet Vol. 8.6 fl (6.2-12.0); Monocyte# 0.82 X10^3/uL; Monocyte% 12.1 % (0-10); NRBC Flagged by Analyzer 0 % (0-5); Neutrophil # 4.35 X10^3/uL (2.7-7.7); Neutrophil % 64.3 % (47-70); Platelet Count 430 K/mm3 (150-450); RBC Distribution Width CV 15.4 % (11.6-14.6); RBC Distribution Width SD 50.8 fl (35.1-43.9); White Blood Count 6.8 K/mm3 (4.4-11.0)
[2024-08-06 06:14] LABS: Anion Gap 4 (5-15); BUN 9 mg/dL (7-18); BUN/Creat Ratio 19.4 RATIO (10-20); Calcium,Total 8.3 mg/dL (8.5-10.1); Chloride 108 mmol/L (98-107); Creatinine, Serum 0.46 mg/dL (0.55-1.02); EST Glomerular Filtration Rate 141 mL/min (>60); Est Glom Filt Rate - Afr Amer 170 mL/min (>60); Estimated Creatinine Clearance 57.91 ml/min; Glucose 115 mg/dL (74-106); Potassium 3.6 mmol/L (3.5-5.1); Sodium Level 138 mmol/L (136-145)
[2024-08-06] MEDS: Sucralfate 1 GM Tablet PO ×4 (06:53→20:29)
[2024-08-06] MEDS: Acetaminophen 500 MG Tablet 1000 MG PO ×3 (06:53→20:30)
[2024-08-06] MEDS: Cholecalciferol (Vit D3) 125 MCG CAPSULE (5,000 UNITS) 250 MCG PO (10:50)
[2024-08-06] MEDS: APIXABAN 2.5 MG TABLET (WCH) PO ×2 (10:51→20:29)
[2024-08-06] MEDS: Folic Acid 1 MG Tablet PO (10:51)
[2024-08-06] MEDS: Pantoprazole Sodium 40 MG Tablet PO ×2 (10:51→20:31)
[2024-08-06] MEDS: Gabapentin 300 MG Capsule PO ×3 (10:52→23:05)
[2024-08-06] MEDS: Iron Polysaccharide Complex 150 MG CAPSULE PO (10:57)
[2024-08-06] MEDS: Losartan Potassium 100 MG Tablet PO (10:57)
[2024-08-06] MEDS: Ascorbic Acid 500 MG Tablet PO (10:58)
[2024-08-06] MEDS: Tuberculin,Purif.prot.deriv. 50 TU/ML Vial 0.1 ML ID (11:55)
--- NOTE | 2024-08-06 15:11 | CASEMGMT ---
Social Work SW met w/pt, completed initial assessment, introduced self and role. SW confirmed pt would like to remain a full code. SW verified as contact. SW inquired about LW/POA, pt has the documents and plans to complete them on her own. Pt aware has [employer] Medicare, and a continued stay is not guaranteed, subject to a continuation of coverage by insurance. Pt's goal is to return home w/spouse at discharge, is open to home health. Pt was independent prior to her first surgery, her was helping her when she went home initially, before coming into the hospital for the second surgery. Pt may also be open to an assessment by [facility] if warranted. SW will continue to follow for discharge planning. JOCELYN Amezcua
[2024-08-06 16:00] VITALS: BP 129/55; PULSE 81; RESP 16; TEMP 36.5; O2SAT 98
--- NOTE | 2024-08-06 16:04 | PHA.CONS_ITS ---
Documented by User: Marylu Bojorquez 08/06/24 16:22 TCU RX Drug Regimen Review Subjective/Objective Subjective/Objective Subjective: TCU Admission. 69 YOF presented to ER with LE injury. Hospitalized for right periprosthetic hip fracture, underwent revision right femoral co mponent with cerclage cabling for fracture 07/28/[address] Johnson, post operative course complicated by HTN, Encephalopathy 2/2 opioids, gastric ulcer, iron deficiency anemia. Admitted to TCU with debility for strengthening and rehabilitation. Objective: Allergies latex Adverse Reaction (Intermediate, Verified 07/26/24 07:39) Rash latex tape- gave rash with knee replacement Current Medications Generic Name Dose Route Start Last Admin Trade Name Freq PRN Reason Stop Dose Admin Acetaminophen 1,000 mg 08/05/24 22:00 08/06/24 14:14 Acetaminophen 500 Mg Tablet PO 1,000 mg Q8 ANMOL Administration Apixaban 2.5 mg 08/05/24 22:00 08/06/24 10:51 Apixaban 2.5 Mg Tablet ([facility]) PO 08/27/24 23:59 2.5 mg BID ANMOL Administration Ascorbic Acid 500 mg 08/06/24 10:00 08/06/24 10:58 Ascorbic Acid 500 Mg Tablet PO 500 mg 1000 ANMOL Administration Bisacodyl 10 mg 08/05/24 18:39 Bisacodyl 10 Mg Suppository RC DAILY PRN PRN Constipation Cholecalciferol 250 mcg 08/06/24 10:00 08/06/24 10:50 Cholecalciferol (Vit D3) 125 Mcg Capsule (5,000 Units) PO 250 mcg DAILY ANMOL Administration Folic Acid 1 mg 08/06/24 08:00 08/06/24 10:51 Folic Acid 1 Mg Tablet PO 1 mg DAILYCM ANMOL Administration Gabapentin 300 mg 08/06/24 08:00 08/06/24 10:52 Gabapentin 300 Mg Capsule PO 300 mg BIDCM ANMOL Administration Losartan Potassium 100 mg 08/06/24 10:00 08/06/24 10:57 Losartan Potassium 100 Mg Tablet PO 100 mg DAILY ANMOL Administration Protocol Magnesium Citrate 300 ml 08/05/24 21:17 Magnesium Citrate 300 Ml PO DAILY PRN Constipation Methotrexate 15 mg 08/07/24 10:00 Methotrexate 2.5 Mg Tablet PO We@1000 [facility] Oxycodone HCl 5 mg 08/05/24 21:17 08/06/24 11:55 Oxycodone 5 Mg Tablet PO 5 mg Q4H PRN PRN Administration Pain Score 1-10 or Pre PT/OT Pantoprazole Sodium 40 mg 08/05/24 22:00 08/06/24 10:51 Pantoprazole Sodium 40 Mg Tablet PO 01/30/25 23:59 40 mg BID ANMOL Administration Polysaccharide Iron Complex 150 mg 08/06/24 10:00 08/06/24 10:57 Iron Polysaccharide Complex 150 Mg Capsule PO 150 mg DAILY ANMOL Administration Senna/Docusate Sodium 2 tablet 08/05/24 22:00 08/06/24 10:53 Senna/Docusate Sodium 1 Tablet PO 09/02/24 22:01 Not Given BID ANMOL Sodium Chloride 10 - 40 ml 08/06/24 14:16 0.9% Saline Lock 10 Ml Syringe IV UD PRN SALINE FLUSH Sucralfate 1 gm 08/05/24 22:00 08/06/24 10:51 Sucralfate 1 Gm Tablet PO 09/02/24 22:01 1 gm 1HR_ACHS ANMOL Administration Tuberculin PPD 0.1 ml 08/13/24 10:00 Tuberculin,Purif.Prot.Deriv. 50 Tu/Ml Vial ID 08/13/24 10:01 X1 ONE Problem List Rheumatoid arthritis (Acute) Vitamin D deficiency (Acute) Iron deficiency anemia (Acute) Gastric ulcer (Acute) Encephalopathy (Acute) Essential (primary) hypertension (Acute) Hypokalemia (Acute) Debility (Acute) Periprosthetic fracture around internal prosthetic right hip joint (Acute) Vital Signs Temp Pulse Resp BP Pulse Ox O2 Del Method 98.5 F 96 16 156/73 H 97 Room Air 08/05/24 18:18 08/05/24 20:44 08/05/24 20:44 08/05/24 18:18 08/05/24 20:44 08/06/24 10:00 Oxygen Delivery Method Room Air Weight: 73.936 kg Body Mass Index (BMI) 32.9 Sodium 138 mmol/L (136-145) 08/06/24 05:25 Potassium 3.6 mmol/L (3.5-5.1) 08/06/24 05:25 Chloride 108 mmol/L (98-107) H 08/06/24 05:25 Carbon Dioxide 26.0 mmol/L (21.0-32.0) 08/06/24 05:25 Anion Gap 4 (5-15) L 08/06/24 05:25 BUN 9 mg/dL (7-18) 08/06/24 05:25 Creatinine 0.46 mg/dL (0.55-1.02) L 08/06/24 05:25 Est GFR (MDRD) Af Amer 170 mL/min (>60) 08/06/24 05:25 Est GFR (MDRD) Non-Af 141 mL/min (>60) 08/06/24 05:25 BUN/Creatinine Ratio 19.4 RATIO (10-20) 08/06/24 05:25 Glucose 115 mg/dL (74-106) H 08/06/24 05:25 Assessment/Plan: 1. Pain: acetaminophen 1000mg PO Q8 and oxycodone 5mg PO Q4H PRN pain 1-10. Resident has had 3 doses of oxycodone for pain scores of 5-6 in the hip and foot. Please continue to monitor for increased pain, PRN usage, constipation, respiratory depression and falls/fractures (BEERs). 2. Bowel: senna/docusate 2T PO BID, bisacodyl 10mg RC daily PRN constipation and magnesium citrate 300mL PO daily PRN constipation. Resident has not had any PRN doses. Resident has refused scheduled senna/docusate doses. Please consider changing senna/docusate to PRN. Thanks. Please continue to monitor for constipation and PRN usage. 3. DVT prophylaxis: apixaban 2.5mg PO BID thru 08/27/24. Please continue to monitor for S/S of bleeding/DVT and hemoglobin (last 8.8g/dL). 4. Gastric ulcer: pantoprazole 40mg PO BID thru 01/30/25 and sucralfate 1gm PO 1HR_ACHS thru 09/01/24. Please continue to monitor for upset stomach, gas, nausea and diarrhea (BEERs). 5. Hypertension: losartan 100mg PO daily. Please continue to monitor BP (last 156/73), renal function and potassium (last 3.6mmol/L). 6. Iron deficiency anemia: Ferrex 150mg PO DAILY and ascorbic acid 500mg PO daily. Please continue to monitor hemoglobin, iron studies (last 07/31/24), constipation and dark stools. 7. RA/folate deficiency: methotrexate 15mg PO Wednesdays and folic acid 1mg PO daily. Please continue to monitor CBC, rash, diarrhea and LFTs. 8. Vitamin D deficiency: cholecalciferol 250mcg PO daily. Please continue to monitor vitamin D (last 07/05/24). Assessment/Plan for indications treated with psychotropic medications: 1. Neuropathic pain: gabapentin 300mg PO BIDCM. GDR not appropriate as this medication is being used for neuropathic pain. Please continue to monitor for confusion, falls/fractures (BEERs), renal function. Medical chart and medication regimen reviewed. The following medication irregularities or issues were identified: 1. Senna/docusate 2T PO BID. Resident has refused scheduled senna/docusate doses. Please consider changing senna/docusate to PRN. Thanks. Date Date of Note: 08/06/24 Documented by User: Dr. Young Ng MD 08/06/24 17:32 TCU RX Drug Regimen Review Provider Comments Provider responsibility Provider Comments to Recommendations by Pharmacy Agree
[2024-08-06] MEDS: 0.9% Saline Lock 10 ML Syringe IV (20:31)
--- NOTE | 2024-08-06 22:02 | NURSING ---
Patient called out, crying in room, sitting at the side of the bed. This nurse entered room to check on patient. Patient reports to this nurse 9 pain to b/l lower extremities. Patient states, I took Gabapentin three times a day at home, I don't know why they won't let me have it at night. I need it especially at night. This nurse had administered PRN oxycodone 5mg an hour prior to this conversation with patient. This nurse offered non-pharmacological methods such as ice or repositioning. Patient refused. This nurse assisted patient back into bed, call light in reach. Patient denies further assistance. This nurse consulted Dr. Ng via telephone. Per Dr. Ng, new order for Gabapentin 300mg ANMOL HS. Telephone order read back and verified.
[2024-08-07] MEDS: Acetaminophen 500 MG Tablet 1000 MG PO ×3 (05:27→21:16)
[2024-08-07] MEDS: Sucralfate 1 GM Tablet PO ×4 (05:27→21:16)
[2024-08-07 07:39] LABS: Hematocrit 27.9 % (37-47); Hemoglobin 8.9 g/dL (12.0-15.0)
[2024-08-07 08:11] VITALS: BP 143/63; PULSE 96; RESP 18; TEMP 36.6; O2SAT 97
[2024-08-07] MEDS: Cholecalciferol (Vit D3) 125 MCG CAPSULE (5,000 UNITS) 250 MCG PO (08:13)
[2024-08-07] MEDS: Gabapentin 300 MG Capsule PO ×3 (08:13→21:15)
[2024-08-07] MEDS: Folic Acid 1 MG Tablet PO (08:13)
[2024-08-07] MEDS: Losartan Potassium 100 MG Tablet PO (08:13)
[2024-08-07] MEDS: APIXABAN 2.5 MG TABLET (WCH) PO ×2 (08:14→21:16)
[2024-08-07] MEDS: Iron Polysaccharide Complex 150 MG CAPSULE PO (08:15)
[2024-08-07] MEDS: Ascorbic Acid 500 MG Tablet PO (08:15)
[2024-08-07] MEDS: Methotrexate 2.5 MG Tablet 15 MG PO (08:15)
[2024-08-07] MEDS: Pantoprazole Sodium 40 MG Tablet PO ×2 (08:15→21:17)
--- NOTE | 2024-08-07 09:40 | NURSING ---
Slotter Operator Note; Activity Asset: Celso Hollins is independent in her choice of daily activities. Her family visits and brings her items she needs or wants. She watches tv, reads and uses her smartphone. Staff will remind her of weekly activities, encourage social activities and respect her right to say no.
[2024-08-07 10:10] VITALS: BMI 32.8
[2024-08-07] MEDS: Arthritis Pain Compound 60 CLICK TUBE TOPICAL ×2 (11:54→21:16)
[2024-08-07] MEDS: oxyCODONE 5 MG Tablet PO ×2 (13:46→22:34)
[2024-08-08] MEDS: Sucralfate 1 GM Tablet PO ×4 (05:51→22:12)
[2024-08-08] MEDS: Acetaminophen 500 MG Tablet 1000 MG PO ×3 (05:51→22:12)
[2024-08-08] MEDS: oxyCODONE 5 MG Tablet PO ×3 (05:54→23:35)
[2024-08-08 08:06] VITALS: BP 157/61; PULSE 89; RESP 17; TEMP 37.1; O2SAT 98
[2024-08-08] MEDS: Losartan Potassium 100 MG Tablet PO (08:10)
[2024-08-08] MEDS: Arthritis Pain Compound 60 CLICK TUBE TOPICAL ×2 (08:10→22:11)
[2024-08-08] MEDS: Gabapentin 300 MG Capsule PO ×3 (08:10→22:11)
[2024-08-08] MEDS: Folic Acid 1 MG Tablet PO (08:10)
[2024-08-08] MEDS: Pantoprazole Sodium 40 MG Tablet PO ×2 (08:11→22:12)
[2024-08-08] MEDS: Iron Polysaccharide Complex 150 MG CAPSULE PO (08:11)
[2024-08-08] MEDS: Ascorbic Acid 500 MG Tablet PO (08:11)
[2024-08-08] MEDS: APIXABAN 2.5 MG TABLET (WCH) PO ×2 (08:11→22:12)
[2024-08-08] MEDS: Cholecalciferol (Vit D3) 125 MCG CAPSULE (5,000 UNITS) 250 MCG PO (08:11)
[2024-08-09] MEDS: Acetaminophen 500 MG Tablet 1000 MG PO ×3 (05:51→21:46)
[2024-08-09] MEDS: Sucralfate 1 GM Tablet PO ×4 (05:51→21:45)
[2024-08-09 09:02] VITALS: BP 122/54; PULSE 87; RESP 16; TEMP 36.9; O2SAT 98
[2024-08-09] MEDS: Iron Polysaccharide Complex 150 MG CAPSULE PO (09:05)
[2024-08-09] MEDS: Folic Acid 1 MG Tablet PO (09:05)
[2024-08-09] MEDS: Cholecalciferol (Vit D3) 125 MCG CAPSULE (5,000 UNITS) 250 MCG PO (09:05)
[2024-08-09] MEDS: Ascorbic Acid 500 MG Tablet PO (09:05)
[2024-08-09] MEDS: APIXABAN 2.5 MG TABLET (WCH) PO ×2 (09:05→21:46)
[2024-08-09] MEDS: Pantoprazole Sodium 40 MG Tablet PO ×2 (09:05→21:46)
[2024-08-09] MEDS: Losartan Potassium 100 MG Tablet PO (09:05)
[2024-08-09] MEDS: Arthritis Pain Compound 60 CLICK TUBE TOPICAL ×2 (09:06→21:46)
[2024-08-09] MEDS: Gabapentin 300 MG Capsule PO ×3 (09:09→21:45)
[2024-08-09] MEDS: oxyCODONE 5 MG Tablet PO ×2 (10:01→21:45)
--- NOTE | 2024-08-09 15:42 | CASEMGMT ---
Social Work SW completed BIMS () and PHQ-2 () for MDS assessment. Aimee Wright MSW [employer]
[2024-08-09] MEDS: Doxepin Hydrochloride 10 MG Capsule PO (21:46)
[2024-08-09 21:50] VITALS: RESP 15
[2024-08-10] MEDS: Acetaminophen 500 MG Tablet 1000 MG PO ×3 (06:21→22:40)
[2024-08-10] MEDS: oxyCODONE 5 MG Tablet PO ×3 (06:21→22:44)
[2024-08-10] MEDS: Sucralfate 1 GM Tablet PO ×4 (06:22→22:39)
[2024-08-10 07:14] LABS: Hemoglobin 8.7 g/dL (12.0-15.0)
[2024-08-10 08:44] VITALS: BP 140/54; PULSE 85; RESP 17; TEMP 36.3; O2SAT 97
[2024-08-10] MEDS: Losartan Potassium 100 MG Tablet PO (08:47)
[2024-08-10] MEDS: Folic Acid 1 MG Tablet PO (08:47)
[2024-08-10] MEDS: Arthritis Pain Compound 60 CLICK TUBE TOPICAL ×2 (08:47→22:39)
[2024-08-10] MEDS: APIXABAN 2.5 MG TABLET (WCH) PO ×2 (08:48→22:39)
[2024-08-10] MEDS: Pantoprazole Sodium 40 MG Tablet PO ×2 (08:48→22:40)
[2024-08-10] MEDS: Iron Polysaccharide Complex 150 MG CAPSULE PO (08:48)
[2024-08-10] MEDS: Ascorbic Acid 500 MG Tablet PO (08:48)
[2024-08-10] MEDS: Cholecalciferol (Vit D3) 125 MCG CAPSULE (5,000 UNITS) 250 MCG PO (08:48)
[2024-08-10] MEDS: Gabapentin 300 MG Capsule PO ×3 (08:52→22:43)
[2024-08-10] MEDS: Doxepin Hydrochloride 10 MG Capsule PO (22:40)
[2024-08-11] MEDS: oxyCODONE 5 MG Tablet PO ×4 (03:03→21:47)
[2024-08-11] MEDS: Acetaminophen 500 MG Tablet 1000 MG PO ×3 (06:19→21:46)
[2024-08-11] MEDS: Sucralfate 1 GM Tablet PO ×4 (06:19→21:47)
[2024-08-11 08:40] VITALS: BP 148/48; PULSE 90; RESP 16; TEMP 36.6; O2SAT 95
[2024-08-11] MEDS: Folic Acid 1 MG Tablet PO (08:43)
[2024-08-11] MEDS: Gabapentin 300 MG Capsule PO ×3 (08:44→21:46)
[2024-08-11] MEDS: APIXABAN 2.5 MG TABLET (WCH) PO ×2 (08:44→21:47)
[2024-08-11] MEDS: Pantoprazole Sodium 40 MG Tablet PO ×2 (08:44→21:46)
[2024-08-11] MEDS: Iron Polysaccharide Complex 150 MG CAPSULE PO (08:44)
[2024-08-11] MEDS: Losartan Potassium 100 MG Tablet PO (08:44)
[2024-08-11] MEDS: Cholecalciferol (Vit D3) 125 MCG CAPSULE (5,000 UNITS) 250 MCG PO (08:45)
[2024-08-11] MEDS: Ascorbic Acid 500 MG Tablet PO (08:45)
[2024-08-11] MEDS: Arthritis Pain Compound 60 CLICK TUBE TOPICAL (21:45)
[2024-08-11] MEDS: Doxepin Hydrochloride 10 MG Capsule PO (21:46)
[2024-08-12] MEDS: oxyCODONE 5 MG Tablet PO ×4 (01:40→23:23)
[2024-08-12] MEDS: Acetaminophen 500 MG Tablet 1000 MG PO ×3 (05:23→21:32)
[2024-08-12] MEDS: Sucralfate 1 GM Tablet PO ×4 (05:24→21:33)
--- NOTE | 2024-08-12 05:26 | NURSING ---
Resident c/o pain to rt hip at 04/13. In no acute distress. Given scheduled Tylenol 1000 mg per order. Offered and encouraged ice as an additional treatment modality for pain management and to decrease swelling. Declines ice at this time. Will continue to monitor.
[2024-08-12 08:45] VITALS: BP 134/60; PULSE 92; RESP 18; TEMP 37.1
[2024-08-12] MEDS: Arthritis Pain Compound 60 CLICK TUBE TOPICAL ×2 (08:52→21:32)
[2024-08-12] MEDS: Gabapentin 300 MG Capsule PO ×3 (08:52→21:32)
[2024-08-12] MEDS: Losartan Potassium 100 MG Tablet PO (08:52)
[2024-08-12] MEDS: Folic Acid 1 MG Tablet PO (08:52)
[2024-08-12] MEDS: APIXABAN 2.5 MG TABLET (WCH) PO ×2 (08:53→21:33)
[2024-08-12] MEDS: Pantoprazole Sodium 40 MG Tablet PO ×2 (08:53→21:33)
[2024-08-12] MEDS: Iron Polysaccharide Complex 150 MG CAPSULE PO (08:53)
[2024-08-12] MEDS: Cholecalciferol (Vit D3) 125 MCG CAPSULE (5,000 UNITS) 250 MCG PO (08:53)
[2024-08-12] MEDS: Ascorbic Acid 500 MG Tablet PO (08:54)
--- NOTE | 2024-08-12 09:07 | NURSING ---
Boring Machine Operator Production Note; MDS for 08/12/2024
[2024-08-12] MEDS: Doxepin Hydrochloride 10 MG Capsule PO (21:33)
[2024-08-13] MEDS: oxyCODONE 5 MG Tablet PO ×4 (03:52→22:40)
[2024-08-13] MEDS: Sucralfate 1 GM Tablet PO ×4 (05:55→21:49)
[2024-08-13] MEDS: Acetaminophen 500 MG Tablet 1000 MG PO ×3 (05:55→21:50)
[2024-08-13 06:15] LABS: Absolute Lymphocyte Count 1.24 X10^3/uL (0.83-4.51); Absolute Neutrophil Count 2.2 X10^3/uL (2.0-7.7); Basophil# 0.03 X10^3/uL; Basophil% 0.7 % (0-1); Eosinophil# 0.02 X10^3/uL; Eosinophils% 0.5 % (0-5); Hematocrit 27.7 % (37-47); Hemoglobin 8.4 g/dL (12.0-15.0); Lymphocyte # 1.24 X10^3/ul (0.83-4.51); Lymphocyte % 29.5 % (19-41); Mean Corp Hgb Conc 30.3 g/dL (32-36); Mean Corpuscular Hgb 29.1 pg (27.0-32.0); Mean Corpuscular Volume 95.8 fL (81-99); Mean Platelet Vol. 8.7 fl (6.2-12.0); Monocyte# 0.69 X10^3/uL; Monocyte% 16.4 % (0-10); NRBC Flagged by Analyzer 0 % (0-5); Neutrophil # 2.22 X10^3/uL (2.7-7.7); Neutrophil % 52.7 % (47-70); Platelet Count 381 K/mm3 (150-450); RBC Distribution Width CV 15.5 % (11.6-14.6); Red Blood Count 2.89 M/mm3 (4.2-5.4); White Blood Count 4.2 K/mm3 (4.4-11.0)
[2024-08-13 06:31] LABS: Anion Gap 3 (5-15); BUN 13 mg/dL (7-18); BUN/Creat Ratio 21.6 RATIO (10-20); Calcium,Total 8.5 mg/dL (8.5-10.1); Chloride 108 mmol/L (98-107); EST Glomerular Filtration Rate 104 mL/min (>60); Est Glom Filt Rate - Afr Amer 126 mL/min (>60); Estimated Creatinine Clearance 57.91 ml/min; Glucose 111 mg/dL (74-106); Potassium 3.5 mmol/L (3.5-5.1); Sodium Level 142 mmol/L (136-145)
[2024-08-13] MEDS: Pantoprazole Sodium 40 MG Tablet PO ×2 (08:13→21:50)
[2024-08-13] MEDS: Folic Acid 1 MG Tablet PO (08:13)
[2024-08-13] MEDS: Ascorbic Acid 500 MG Tablet PO (08:14)
[2024-08-13] MEDS: Cholecalciferol (Vit D3) 125 MCG CAPSULE (5,000 UNITS) 250 MCG PO (08:14)
[2024-08-13] MEDS: Losartan Potassium 100 MG Tablet PO (08:14)
[2024-08-13] MEDS: Iron Polysaccharide Complex 150 MG CAPSULE PO (08:15)
[2024-08-13] MEDS: Arthritis Pain Compound 60 CLICK TUBE TOPICAL ×2 (08:16→21:48)
[2024-08-13] MEDS: Gabapentin 300 MG Capsule PO ×3 (08:29→21:49)
[2024-08-13] MEDS: Senna/Docusate Sodium 1 Tablet 2 TABLET PO (08:37)
[2024-08-13 10:00] VITALS: BMI 34.2
--- NOTE | 2024-08-13 10:53 | NURSING ---
Offered covid vaccine, VIS provided. Resident refuses at this time.
[2024-08-13 11:29] VITALS: PULSE 84; RESP 16
[2024-08-13] MEDS: Tuberculin,Purif.prot.deriv. 50 TU/ML Vial 0.1 ML ID (11:44)
--- NOTE | 2024-08-13 13:23 | NURSING ---
Called and spoke with Dr. Johnson's nurse Brie, asked about when he need removed and if TCU staff can remove. Follow-up with Dr. Johnson not scheduled until 08/23/24. Brie will call back unless Dr. Johnson decides to come by TCU.
--- NOTE | 2024-08-13 14:17 | NURSING ---
Dr. Johnson came by and saw resident. Orders for nursing to remove he. Wash incision site with antibacterial soap daily. Follow-up with him in office in 4 weeks.
[2024-08-13 16:00] VITALS: BP 157/68; PULSE 81; RESP 16; TEMP 36.8; O2SAT 97
[2024-08-13] MEDS: Doxepin Hydrochloride 10 MG Capsule PO (21:50)
[2024-08-14] MEDS: oxyCODONE 5 MG Tablet PO ×3 (03:51→22:01)
[2024-08-14 05:55] VITALS: RESP 16
[2024-08-14 05:58] LABS: Hematocrit 27.8 % (37-47); Hemoglobin 8.7 g/dL (12.0-15.0)
[2024-08-14] MEDS: Acetaminophen 500 MG Tablet 1000 MG PO ×3 (06:26→22:03)
[2024-08-14] MEDS: Sucralfate 1 GM Tablet PO ×4 (06:27→22:02)
[2024-08-14] MEDS: Gabapentin 300 MG Capsule PO ×3 (08:16→22:01)
[2024-08-14] MEDS: Arthritis Pain Compound 60 CLICK TUBE TOPICAL (08:16)
[2024-08-14] MEDS: Folic Acid 1 MG Tablet PO (08:18)
[2024-08-14] MEDS: Cholecalciferol (Vit D3) 125 MCG CAPSULE (5,000 UNITS) 250 MCG PO (08:18)
[2024-08-14] MEDS: Iron Polysaccharide Complex 150 MG CAPSULE PO (08:19)
[2024-08-14] MEDS: Losartan Potassium 100 MG Tablet PO (08:19)
[2024-08-14] MEDS: Ascorbic Acid 500 MG Tablet PO (08:19)
[2024-08-14] MEDS: Pantoprazole Sodium 40 MG Tablet PO ×2 (08:19→22:02)
[2024-08-14 08:23] VITALS: BP 151/60; PULSE 89
[2024-08-14] MEDS: Methotrexate 2.5 MG Tablet 15 MG PO (10:18)
--- NOTE | 2024-08-14 13:23 | MDS.RN ---
Information for the MDS was obtained from review of the clinical record, interview of resident, staff, and direct observation of resident?s care.
--- NOTE | 2024-08-14 14:10 | CASEMGMT ---
Addendum entered by Aimee Wright 08/20/24 15:34: SW followed up with pt on HHC preference. Pt prefers [facility]. SW phoned referral to [facility] for PT/OT. Addendum entered by Aimee Wright 08/19/24 15:21: SW followed up with pt on HHC preference. Pt has not chosen one yet. SW requested to collaborate with family and this worker will follow up tomorrow with selection. Pt agreed. Original Note: Social Work IDT met with patient, and dtr for care plan meeting. Discussed patient's progress in PT/OT/SN. Educated to [facility] and Home insurance with [employer] 08/16, with weekly updates, and insurance will provide a 3-day notice for a DC date. Pt is anxious to get home, but and dtr want pt to improve further in therapy prior to being home alone, since works. SW offered to set DC date to give pt an exact timeframe. Offered DC 08/24, so is home over the weekend and the upcoming holiday, along with dtr. All in agreement. Discussed HHC vs OP therapy. Pt prefers HHC. SW provided printed list of HHC providers with quality and resource data via [employer]. Pt to notify this worker of preferences. Pt will also need a pediatric FWW. SW to coordinate through [facility]. can transport at [place]. Plan: DC home with 08/24, HHC PT/OT, pediatric FWW CHRISSY Leung
[2024-08-14 15:51] VITALS: TEMP 36.8; O2SAT 96
[2024-08-14] MEDS: Doxepin Hydrochloride 10 MG Capsule PO (22:03)
[2024-08-15] MEDS: oxyCODONE 5 MG Tablet PO ×3 (02:58→22:01)
[2024-08-15] MEDS: Sucralfate 1 GM Tablet PO ×4 (06:13→22:01)
[2024-08-15] MEDS: Acetaminophen 500 MG Tablet 1000 MG PO ×3 (06:13→22:02)
[2024-08-15 09:17] VITALS: BP 126/58; PULSE 88; RESP 16; TEMP 36.9; O2SAT 96
[2024-08-15] MEDS: Gabapentin 300 MG Capsule PO ×3 (09:18→22:01)
[2024-08-15] MEDS: Folic Acid 1 MG Tablet PO (09:19)
[2024-08-15] MEDS: Pantoprazole Sodium 40 MG Tablet PO ×2 (09:19→22:01)
[2024-08-15] MEDS: Iron Polysaccharide Complex 150 MG CAPSULE PO (09:19)
[2024-08-15] MEDS: Ascorbic Acid 500 MG Tablet PO (09:19)
[2024-08-15] MEDS: Cholecalciferol (Vit D3) 125 MCG CAPSULE (5,000 UNITS) 250 MCG PO (09:19)
[2024-08-15] MEDS: Losartan Potassium 100 MG Tablet PO (09:19)
[2024-08-15] MEDS: Senna/Docusate Sodium 1 Tablet 2 TABLET PO (09:25)
[2024-08-15 14:19] VITALS: PULSE 88; RESP 16; O2SAT 97
[2024-08-15] MEDS: Doxepin Hydrochloride 10 MG Capsule PO (22:02)
[2024-08-16] MEDS: oxyCODONE 5 MG Tablet PO ×4 (02:01→22:45)
[2024-08-16] MEDS: Sucralfate 1 GM Tablet PO ×4 (05:03→21:56)
[2024-08-16] MEDS: Acetaminophen 500 MG Tablet 1000 MG PO ×3 (05:03→21:56)
--- NOTE | 2024-08-16 06:51 | NURSING ---
patient c/o difficulty sleeping despite doxepin as ordered, written communication left for Dr. Ng review this AM
[2024-08-16] MEDS: Pantoprazole Sodium 40 MG Tablet PO ×2 (08:01→21:56)
[2024-08-16] MEDS: Gabapentin 300 MG Capsule PO ×3 (08:01→21:56)
[2024-08-16] MEDS: Iron Polysaccharide Complex 150 MG CAPSULE PO (08:01)
[2024-08-16] MEDS: Losartan Potassium 100 MG Tablet PO (08:01)
[2024-08-16] MEDS: Folic Acid 1 MG Tablet PO (08:01)
[2024-08-16] MEDS: Ascorbic Acid 500 MG Tablet PO (08:01)
[2024-08-16] MEDS: Cholecalciferol (Vit D3) 125 MCG CAPSULE (5,000 UNITS) 250 MCG PO (08:01)
[2024-08-16 08:03] VITALS: BP 151/73; PULSE 85
[2024-08-16 14:04] VITALS: BP 110/53; PULSE 79; RESP 18; TEMP 36.6; O2SAT 97
[2024-08-16] MEDS: Doxepin Hcl 25 MG Capsule PO (21:56)
[2024-08-16 22:00] VITALS: PULSE 79; RESP 16
[2024-08-17] MEDS: oxyCODONE 5 MG Tablet PO ×4 (02:48→22:32)
[2024-08-17] MEDS: Acetaminophen 500 MG Tablet 1000 MG PO ×3 (06:52→21:29)
[2024-08-17] MEDS: Sucralfate 1 GM Tablet PO ×4 (06:53→21:30)
[2024-08-17 08:00] VITALS: BP 143/72; PULSE 97; RESP 18; TEMP 36.4; O2SAT 95
[2024-08-17] MEDS: Pantoprazole Sodium 40 MG Tablet PO ×2 (09:34→21:30)
[2024-08-17] MEDS: Cholecalciferol (Vit D3) 125 MCG CAPSULE (5,000 UNITS) 250 MCG PO (09:34)
[2024-08-17] MEDS: Ascorbic Acid 500 MG Tablet PO (09:34)
[2024-08-17] MEDS: Losartan Potassium 100 MG Tablet PO (09:34)
[2024-08-17] MEDS: Gabapentin 300 MG Capsule PO ×3 (09:34→21:29)
[2024-08-17] MEDS: Folic Acid 1 MG Tablet PO (09:34)
[2024-08-17] MEDS: Iron Polysaccharide Complex 150 MG CAPSULE PO (09:34)
[2024-08-17 15:00] VITALS: PULSE 97; RESP 18; O2SAT 95
[2024-08-17] MEDS: Doxepin Hcl 25 MG Capsule PO (21:30)
[2024-08-18] MEDS: oxyCODONE 5 MG Tablet PO ×4 (03:24→21:16)
[2024-08-18] MEDS: Acetaminophen 500 MG Tablet 1000 MG PO ×3 (05:50→21:17)
[2024-08-18] MEDS: Sucralfate 1 GM Tablet PO ×4 (05:50→21:16)
[2024-08-18] MEDS: Ascorbic Acid 500 MG Tablet PO (08:58)
[2024-08-18] MEDS: Cholecalciferol (Vit D3) 125 MCG CAPSULE (5,000 UNITS) 250 MCG PO (08:58)
[2024-08-18] MEDS: Iron Polysaccharide Complex 150 MG CAPSULE PO (08:58)
[2024-08-18] MEDS: Gabapentin 300 MG Capsule PO ×3 (08:58→21:18)
[2024-08-18] MEDS: Losartan Potassium 100 MG Tablet PO (08:58)
[2024-08-18] MEDS: Folic Acid 1 MG Tablet PO (08:58)
[2024-08-18] MEDS: Pantoprazole Sodium 40 MG Tablet PO ×2 (08:59→21:16)
[2024-08-18 09:03] VITALS: BP 146/61; PULSE 103; RESP 20; TEMP 36.6; O2SAT 98
[2024-08-18 10:00] VITALS: PULSE 103; RESP 20; O2SAT 98
[2024-08-18] MEDS: Doxepin Hcl 25 MG Capsule PO (21:17)
[2024-08-19] MEDS: oxyCODONE 5 MG Tablet PO ×3 (02:45→23:20)
[2024-08-19] MEDS: Acetaminophen 500 MG Tablet 1000 MG PO ×3 (05:57→22:10)
[2024-08-19] MEDS: Sucralfate 1 GM Tablet PO ×4 (05:58→22:10)
[2024-08-19 06:59] VITALS: PULSE 84; RESP 16; O2SAT 96
[2024-08-19 07:33] VITALS: BP 155/84; PULSE 83; RESP 15; TEMP 36.4; O2SAT 97
[2024-08-19] MEDS: Pantoprazole Sodium 40 MG Tablet PO ×2 (07:39→22:09)
[2024-08-19] MEDS: Ascorbic Acid 500 MG Tablet PO (07:39)
[2024-08-19] MEDS: Losartan Potassium 100 MG Tablet PO (07:39)
[2024-08-19] MEDS: Folic Acid 1 MG Tablet PO (07:39)
[2024-08-19] MEDS: Cholecalciferol (Vit D3) 125 MCG CAPSULE (5,000 UNITS) 250 MCG PO (07:39)
[2024-08-19] MEDS: Iron Polysaccharide Complex 150 MG CAPSULE PO (07:40)
[2024-08-19] MEDS: Gabapentin 300 MG Capsule PO ×3 (07:40→22:08)
[2024-08-19 07:50] LABS: Absolute Lymphocyte Count 1.24 X10^3/uL (0.83-4.51); Absolute Neutrophil Count 2.5 X10^3/uL (2.0-7.7); Basophil# 0.03 X10^3/uL; Basophil% 0.7 % (0-1); Eosinophil# 0.02 X10^3/uL; Eosinophils% 0.5 % (0-5); Hematocrit 30.3 % (37-47); Hemoglobin 9.4 g/dL (12.0-15.0); Lymphocyte # 1.24 X10^3/ul (0.83-4.51); Lymphocyte % 28.4 % (19-41); Mean Corpuscular Hgb 29.3 pg (27.0-32.0); Mean Corpuscular Volume 94.4 fL (81-99); Mean Platelet Vol. 8.5 fl (6.2-12.0); Monocyte# 0.59 X10^3/uL; Monocyte% 13.5 % (0-10); NRBC Flagged by Analyzer 0 % (0-5); Neutrophil # 2.46 X10^3/uL (2.7-7.7); Neutrophil % 56.4 % (47-70); Platelet Count 327 K/mm3 (150-450); RBC Distribution Width CV 14.9 % (11.6-14.6); Red Blood Count 3.21 M/mm3 (4.2-5.4); White Blood Count 4.4 K/mm3 (4.4-11.0)
[2024-08-19] MEDS: Doxycycline 100 MG CAPSULE PO ×2 (08:49→22:09)
--- NOTE | 2024-08-19 09:37 | NURSING ---
Updated Dr. Johnson's nurse that resident started on antibiotic and getting doppler done for right leg having edema and being pink and warm.
--- NOTE | 2024-08-19 10:50 | NURSING ---
doppler BLE's negative per ob scrub tech.
[2024-08-19] MEDS: Cephalexin 500 MG Capsule PO ×3 (11:12→23:05)
--- NOTE | 2024-08-19 18:27 | PCM.DC.SUM ---
Providers Date of Admission: 08/05/24 Primary Care Physician: Dr. Patt Joy, DO Consultations 08/14/24 07:43 Consult: Gastroenterology Routine Consulting Provider: [facility] Reason for Consult: Anemia, +hemoccult. EMERGENT Consult: No MD Notified: Yes Date Notified: 08/14/24 Time Notified: 11:49 Method of Notification: Text Reason For Visit: RIGHT PERIPROSTHETIC FRACTURE Diagnosis Discharge Diagnosis (1) Debility: Status: Acute Code(s): R53.81 - Other malaise (2) Periprosthetic fracture around internal prosthetic right hip joint: Status: Acute Code(s): M97.01XA - Periprosthetic fracture around internal prosthetic right hip joint, initial encounter Qualifiers: Encounter type: initial encounter Qualified Code(s): M97.01XA - Periprosthetic fracture around internal prosthetic right hip joint, initial encounter (3) Hypokalemia: Status: Acute Code(s): E87.6 - Hypokalemia (4) Essential (primary) hypertension: Status: Acute Code(s): I10 - Essential (primary) hypertension (5) Encephalopathy: Status: Acute Code(s): G93.40 - Encephalopathy, unspecified (6) Gastric ulcer: Status: Acute Code(s): K25.9 - Gastric ulcer, unspecified as acute or chronic, without hemorrhage or perforation (7) Iron deficiency anemia: Status: Acute Code(s): D50.9 - Iron deficiency anemia, unspecified (8) Vitamin D deficiency: Status: Acute Code(s): E55.9 - Vitamin D deficiency, unspecified (9) Rheumatoid arthritis: Status: Acute Code(s): M06.9 - Rheumatoid arthritis, unspecified Plan 69 year old female with below past medical history hospitalized for right periprosthetic hip fracture, underwent revision right femoral component with cerclage cabling for fracture 07/28/[address] Johnson, post operative course complicated by HTN, Encephalopathy 2/2 opioids, gastric ulcer, iron deficiency anemia, admitted to TCU with debility, here for rehabilitation, strengthening, prior to discharge home with . Debility - PT/OT. Pain - Tylenol 1000mg q8, Oxycodone 5mg q4 prn pain (1-10). Bowel - senna/colace 2 tablets bid, Dulcolax 10mg pr daily prn, Magnesium citrate 300mL daily prn. Adult immunization - Administer pneumonia vaccine, covid vaccine, flu vaccine as appropriate. DVT prophylaxis - Eliquis 2.5mg bid thru 08/27/2024. Vitamin D deficiency - D3 250mcg daily. Iron deficiency anemia - Ferrex 150mg daily, Vitamin C 500mg daily. Folate deficiency - Folic acid 1mg daily. Hypertension - Losartan 100mg daily. Gastric ulcer - Pantoprazole 40mg bid thru 01/30/2025, Sucralfate 1gm bid thru 09/01/2024. Medications at Discharge Home Medications Cholecalciferol (Vitamin D3) [Vitamin D3] 2 tab PO DAILY SUPPLEMENT 02/12/20 folic acid 1 mg tablet 1 mg PO DAILYCM Supplement #0 tabs 08/05/24 pantoprazole 40 mg tablet,delayed release (Protonix) 40 mg PO BID GERD 30 days #60 tabs 08/05/24 sucralfate 1 gram tablet 1 g PO 1HR_ACHS Stomach Ulcer 30 days #0 tabs 08/05/24 acetaminophen 500 mg tablet 1,000 mg (2 x 500 mg) PO Q8 #0 tabs 08/19/24 ascorbic acid (vitamin C) 500 mg tablet 500 mg PO 1000 #0 tabs 08/19/24 cephalexin 500 mg capsule 500 mg PO Q6 2 days #8 caps 08/19/24 doxepin 25 mg capsule 25 mg PO QHS 30 days #30 caps 08/19/24 doxycycline monohydrate 100 mg capsule 100 mg PO BID 2 days #4 caps 08/19/24 gabapentin 300 mg capsule 300 mg PO BIDCM #0 caps 08/19/24 gabapentin 300 mg capsule 300 mg PO HS #0 caps 08/19/24 losartan 100 mg tablet 100 mg PO DAILY 30 days #30 tabs 08/19/24 methotrexate sodium 2.5 mg tablet 15 mg (6 x 2.5 mg) PO We@1000 #0 tabs 08/19/24 oxycodone 5 mg tablet 5 - 10 mg (1 - 2 x 5 mg) PO Q4H PRN PRN Pain Score 1-10 Or Pre Pt/Ot 7 days #42 tabs 08/19/24 pantoprazole 40 mg tablet,delayed release 40 mg PO BID 30 days #60 tabs 08/19/24 polysaccharide iron complex 150 mg iron capsule (Ferrex) 150 mg PO DAILY 30 days #30 caps 08/19/24 sennosides 8.6 mg-docusate sodium 50 mg tablet (Stimulant Laxative Plus) 2 tab PO BID PRN Constipation 30 days #120 tabs 08/19/24 sucralfate 1 gram tablet 1 g PO 1HR_ACHS 30 days #120 tabs 08/19/24 Hospital Course Operations - (See below.) Procedures None Summary of Care Provided Minutes Spent on Discharge: 35 Hospital Course: 69 year old female with below past medical history hospitalized for right periprosthetic hip fracture, underwent revision right femoral component with cerclage cabling for fracture 07/28/[address] Johnson, post operative course complicated by HTN, Encephalopathy 2/2 opioids, gastric ulcer, iron deficiency anemia, admitted to TCU with debility, here for rehabilitation, strengthening, prior to discharge home with . 08/13/2024 Anemia, +blood in stool, Friend consult pending, Hemoglobin improved, Eliquis for dvt prophylaxis stopped. 08/19/2024 Right hip swelling/cellulitis - Doppler ultrasound right lower extremity to rule out dvt, Keflex 500mg po q6 x 7 days, Doxycycline 100mg bid x 7 days. Discharge home with 08/24/2024, [facility] PT/OT, pediatric FWW. Pediatric FWW: Patient is unsafe to use a cane and requires a walker for ambulation in the home and the community. Physical Exam Const alert General Appearance: cooperative HEENT normocephalic Eyes PERRL and EOMs intact bilaterally Neck supple, no JVD and no carotid bruits Resp normal respiratory effort, normal air movement and clear to auscultation bilaterally Cardio regular rate and regular rhythm GI normal to inspection, nondistended, normoactive bowel sounds, non-tender and non-distended Extremity normal capillary refill General Extremity: Negative for edema Skin no rashes or lesions noted General Skin Exam: no breakdown Psych affect normal Appearance: appropriate Weight / BMI Weight Weight: 76.975 kg Body Mass Index (BMI) 34.2 ABG / Lab / Microbiology Data 08/19/24 07:44 08/13/24 05:23 Laboratory: Laboratory Results - last 24 hr 08/19/24 07:44: WBC 4.4, RBC 3.21 L, Hgb 9.4 L, Hct 30.3 L, MCV 94.4, MCH 29.3, MCHC 31.0 L, RDW Std Deviation 52.0 H, RDW Coeff of Oly 14.9 H, Plt Count 327, MPV 8.5, Immature Gran % (Auto) 0.500, Neut % (Auto) 56.4, Lymph % (Auto) 28.4, [place] % (Auto) 13.5 H, Eos % (Auto) 0.5, Baso % (Auto) 0.7, Absolute Neuts (auto) 2.5, Absolute Lymphs (auto) 1.24, Nucleated RBC % 0 Microbiology: Microbiology 08/19/24 09:45 Nasal Secretion SARS-CoV-2 Antigen (Rapid) - Final 08/13/24 09:35 Stool Stool Occult Blood (SINCERE) - Final Occult Blood Positive 08/12/24 05:30 Nasal Secretion SARS-CoV-2 Antigen (Rapid) - Final D/C Instructions Discharge Diet: No restrictions Discharge Activity: Return to Normal Activity, May Shower and Use Walker Weight Bearing Status: Weight bearing as tolerated Call your doctor if you observe: Fever of 101 or Higher, Inability to urinate, Inability to have a bowel movement, Shortness of breath, Dizziness, Fainting spells, Swelling in the ankles, Chest pain and Uncontrolled pain DC O2, CPAP, BIPAP Needs Additional Home O2 Discharge instructions: No DC home with Oxygen: No Additional Instructions: Discharge home with 08/24/2024, [facility] PT/OT, pediatric FWW. Pediatric FWW: Patient is unsafe to use a cane and requires a walker for ambulation in the home and the community. Please Follow Up With: Negro Johnson DO When: As scheduled. Meaningful Use Info Meaningful Use Meaningful Use Diagnoses (Choose all that apply): None applicable Ischemic Stroke Statin Dosing Therapy Reference: STATIN DOSE THERAPY REFERENCE: * Patients > 75 years receive moderate or high dose statin therapy. * Patients 75 years or YOUNGER should receive HIGH intensity statin dose unless contraindicated. You will be required to document reason for non-treatment if statin daily dose does not meet guidelines. HIGH DOSE STATIN THERAPY DAILY Atorvastatin > than or = to 40 mg Rosuvastatin > than or = to 20 mg Amlodipine + Atorvastatin > than or = to 2.5/40 mg Ezetimibe + Simvastatin 10/80 mg Simvastatin 80mg Discharge Plan Admission Admit Date/Time: 08/05/24 18:39 Primary Reason for Your Visit: Debility. Attending Provider: Young Ng Chi Primary Care Provider: Patt Joy Instructions Additional Instructions / Restrictions: Discharge home with 08/24/2024, [facility] PT/OT, pediatric FWW. Pediatric FWW: Patient is unsafe to use a cane and requires a walker for ambulation in the home and the community. Discharge Orders/Prescriptions Prescriptions: New doxepin 25 mg Capsule 25 mg PO QHS 30 Days Qty: 30 0RF polysaccharide iron complex [Ferrex 150] 150 mg iron Capsule 150 mg PO DAILY 30 Days Qty: 30 0RF sennosides-docusate sodium [Stimulant Laxative Plus] 8.6-50 mg Tablet 2 tab PO BID PRN (Reason: Constipation) 30 Days Qty: 120 0RF acetaminophen 500 mg Tablet 1,000 mg PO Q8 Qty: 0 0RF ascorbic acid (vitamin C) 500 mg Tablet 500 mg PO 1000 Qty: 0 0RF methotrexate sodium 2.5 mg Tablet 15 mg PO We@1000 Qty: 0 0RF doxycycline monohydrate 100 mg Capsule 100 mg PO BID 2 Days Qty: 4 0RF cephalexin 500 mg Capsule 500 mg PO Q6 2 Days Qty: 8 0RF gabapentin 300 mg Capsule 300 mg PO BIDCM Qty: 0 0RF gabapentin 300 mg Capsule 300 mg PO HS Qty: 0 0RF losartan 100 mg Tablet 100 mg PO DAILY 30 Days Qty: 30 0RF oxycodone 5 mg Tablet 5 - 10 mg PO Q4H PRN PRN (Reason: Pain Score 1-10 Or Pre Pt/Ot) 7 Days Qty: 42 0RF sucralfate 1 gram Tablet 1 g PO 1HR_ACHS 30 Days Qty: 120 0RF pantoprazole 40 mg Tablet,Delayed Release (Dr/Ec) 40 mg PO BID 30 Days Qty: 60 0RF Continued Cholecalciferol (Vitamin D3) [Vitamin D3] 5,000 UNIT capsule 2 tab PO DAILY sucralfate 1 gram Tablet 1 g PO 1HR_ACHS 30 Days Qty: 0 0RF pantoprazole [Protonix] 40 mg tablet,delayed release (DR/EC) 40 mg PO BID 30 Days Qty: 60 2RF folic acid 1 mg Tablet 1 mg PO DAILYCM Qty: 0 0RF Discontinued methotrexate sodium 2.5 mg tablet 15 mg PO WE Eliquis 2.5 mg tablet 2.5 mg PO BID Qty: 42 0RF sennosides-docusate sodium [Stimulant Laxative Plus] 8.6-50 mg Tablet 2 tab PO BID Qty: 0 0RF acetaminophen 500 mg Tablet 1,000 mg PO Q8 Qty: 0 0RF lisinopril 10 mg Tablet 10 mg PO BID Qty: 0 0RF Rx Instructions: Hold for SBP less than 130 mmHg ferrous sulfate 325 mg (65 mg iron) tablet 325 mg PO QODAY Qty: 30 2RF oxycodone 5 mg tablet 5 - 10 mg PO Q6H PRN (Reason: Pain Score 6-10/10) 7 Days Qty: 56 0RF Referrals / Follow Up: Negro Johnson DO [Med Staff - Active Staff] - 09/11/24 11:00 am Patt Joy DO [Primary Care Provider] - Disposition Disposition (needs filled in before D/C Order can be placed): Home Health Service
[2024-08-19] MEDS: Doxepin Hcl 25 MG Capsule PO (22:10)
[2024-08-20] MEDS: oxyCODONE 5 MG Tablet PO ×4 (04:27→22:57)
[2024-08-20 06:04] LABS: Absolute Neutrophil Count 2.2 X10^3/uL (2.0-7.7); Basophil# 0.03 X10^3/uL; Basophil% 0.8 % (0-1); Eosinophil# 0.01 X10^3/uL; Eosinophils% 0.3 % (0-5); Hematocrit 27.1 % (37-47); Hemoglobin 8.2 g/dL (12.0-15.0); Lymphocyte % 27.8 % (19-41); Mean Corp Hgb Conc 30.3 g/dL (32-36); Mean Corpuscular Volume 95.8 fL (81-99); Mean Platelet Vol. 8.9 fl (6.2-12.0); Monocyte# 0.59 X10^3/uL; Monocyte% 14.9 % (0-10); NRBC Flagged by Analyzer 0 % (0-5); Neutrophil # 2.22 X10^3/uL (2.7-7.7); Neutrophil % 55.9 % (47-70); Platelet Count 296 K/mm3 (150-450); RBC Distribution Width CV 14.9 % (11.6-14.6); RBC Distribution Width SD 52.6 fl (35.1-43.9); Red Blood Count 2.83 M/mm3 (4.2-5.4)
[2024-08-20 06:31] LABS: Anion Gap 5 (5-15); BUN 12 mg/dL (7-18); BUN/Creat Ratio 18.7 RATIO (10-20); Calcium,Total 8.4 mg/dL (8.5-10.1); Chloride 108 mmol/L (98-107); Creatinine, Serum 0.64 mg/dL (0.55-1.02); EST Glomerular Filtration Rate 97 mL/min (>60); Est Glom Filt Rate - Afr Amer 117 mL/min (>60); Estimated Creatinine Clearance 59.15 ml/min; Glucose 106 mg/dL (74-106); Potassium 3.5 mmol/L (3.5-5.1); Sodium Level 141 mmol/L (136-145)
[2024-08-20] MEDS: Cephalexin 500 MG Capsule PO ×3 (06:52→16:57)
[2024-08-20] MEDS: Acetaminophen 500 MG Tablet 1000 MG PO ×3 (06:52→22:56)
[2024-08-20] MEDS: Sucralfate 1 GM Tablet PO ×4 (06:52→22:56)
[2024-08-20 08:40] VITALS: BP 132/54; PULSE 96; RESP 17; TEMP 37.1; O2SAT 94
[2024-08-20] MEDS: Ascorbic Acid 500 MG Tablet PO (09:08)
[2024-08-20] MEDS: Iron Polysaccharide Complex 150 MG CAPSULE PO (09:08)
[2024-08-20] MEDS: Doxycycline 100 MG CAPSULE PO (09:08)
[2024-08-20] MEDS: Losartan Potassium 100 MG Tablet PO (09:08)
[2024-08-20] MEDS: Pantoprazole Sodium 40 MG Tablet PO ×2 (09:08→22:56)
[2024-08-20] MEDS: Folic Acid 1 MG Tablet PO (09:08)
[2024-08-20] MEDS: Cholecalciferol (Vit D3) 125 MCG CAPSULE (5,000 UNITS) 250 MCG PO (09:08)
[2024-08-20] MEDS: Gabapentin 300 MG Capsule PO ×3 (09:12→22:55)
[2024-08-20 10:00] VITALS: BMI 33.5
--- NOTE | 2024-08-20 13:07 | NURSING ---
Resident confirms she has an appt for her hearing on 08/22 at 1300. Her will transport her.
--- NOTE | 2024-08-20 18:00 | RAD_ITS ---
EXAM: XR RIGHT HIP WITH PELVIS WHEN PERFORMED, 2 OR 3 VIEWS CLINICAL INDICATION: Pain. TECHNIQUE: Two or three views of the right hip with pelvis when performed. COMPARISON: Previous radiographs of 07/31/2024 and 07/30/2024. FINDINGS: BONES/JOINTS: Subtrochanteric fracture of the proximal right femur is again noted, and transfixed by right hip arthroplasty with elongated femoral nail and with a cerclage wire in place about the proximal femur. Positioning of the fixation devices is unchanged and there is no dislocation of the femoral head. There is developing callus formation and minimal periosteal reaction about the subtrochanteric fracture, indicating ongoing fracture healing. Alignment of the fracture fragments is unchanged. No new fracture is identified. Proximal left femur and pubic rami are intact. Lower lumbar degenerative disc disease and facet arthritis again noted. SI joints are not widened. No destructive or sclerotic lesions. Note that overlapping bowel shadows may however obscure fine detail. No widening of the pubic symphysis. SOFT TISSUES: Small amount of mottled soft tissue calcification has developed between the lesser trochanter and the right inferior pubic ramus, consistent with calcifying hematoma. No bubbles of soft tissue emphysema are identified. RAD/HIP, UNI W/ Pelvis 2-3 Views IMPRESSION: 1. Healing right femoral subtrochanteric fracture with developing callus formation and periosteal reaction about the fracture site. Stable positioning of fixation devices. 2. No new fracture identified. Electronically Signed: Jose Sierra MD at 3:25 EST ,
[2024-08-20] MEDS: Doxepin Hcl 25 MG Capsule PO (22:56)
[2024-08-21] MEDS: oxyCODONE 5 MG Tablet PO ×4 (03:01→22:28)
[2024-08-21] MEDS: Sucralfate 1 GM Tablet PO ×4 (06:54→21:55)
[2024-08-21] MEDS: Acetaminophen 500 MG Tablet 1000 MG PO ×3 (06:54→21:55)
[2024-08-21] MEDS: Folic Acid 1 MG Tablet PO (08:54)
[2024-08-21] MEDS: Iron Polysaccharide Complex 150 MG CAPSULE PO (08:54)
[2024-08-21] MEDS: Losartan Potassium 100 MG Tablet PO (08:54)
[2024-08-21] MEDS: Methotrexate 2.5 MG Tablet 15 MG PO (08:55)
[2024-08-21] MEDS: Ascorbic Acid 500 MG Tablet PO (08:55)
[2024-08-21] MEDS: Pantoprazole Sodium 40 MG Tablet PO ×3 (08:55→21:56)
[2024-08-21] MEDS: Cholecalciferol (Vit D3) 125 MCG CAPSULE (5,000 UNITS) 250 MCG PO (08:55)
[2024-08-21] MEDS: Gabapentin 300 MG Capsule PO ×3 (08:57→21:55)
[2024-08-21 08:59] VITALS: BP 152/69; PULSE 90; RESP 16; TEMP 36.4; O2SAT 96
--- NOTE | 2024-08-21 11:39 | NURSING ---
pt with edema to RLE & puffy pedal. wrapped w/DARIUS wrap since pt c/o radha castelan cutting into her leg. Had this nurse removed DARIUS wrap felt it was uncomfortable. pt elevating legs in chair.
--- NOTE | 2024-08-21 15:37 | CHAPLAIN ---
Type of Pastoral Visit _x__ Initial Visit ___ Follow-up Visit ___ On-call Visit ___ General Patient Visit ___ Spiritual Assessment ___ Family Conference ___ Bereavement ___ Rapid Response ___ Code Blue ___ Other (describe below) Pastoral Care Referral From _x__ Patient ___ Family ___ Nurse ___ Physician ___ Us Marketing Director ___ Cone Treater ___ Other (describe below) Sacrament/Intervention _x__ Active listening ___ Anointing ___ Zoroastrian ___ Bereavement ___ Communion ___ Isabelle exploration ___ ___ Life review ___ Prayer ___ Reconciliation ___ Sacrament of Sick _x__ Supportive presence ___ Wedding ___ Other (describe below) Pastoral Comments casual stop in to this patient who was quietly sitting in her chair and watching TV; pt is asked about her progress and her feelings/needs; pt states she is hopeful about her progress and the promise of going home on the weekend; pt does not have other concerns at this time and will have good family support where she leaves here
[2024-08-21 15:55] VITALS: PULSE 74; RESP 16; O2SAT 96
[2024-08-21] MEDS: Doxepin Hcl 25 MG Capsule PO (21:55)
[2024-08-22] MEDS: oxyCODONE 5 MG Tablet PO ×2 (05:31→14:48)
[2024-08-22] MEDS: Sucralfate 1 GM Tablet PO ×4 (05:31→23:10)
[2024-08-22] MEDS: Acetaminophen 500 MG Tablet 1000 MG PO ×2 (05:31→23:10)
[2024-08-22] MEDS: Gabapentin 300 MG Capsule PO ×3 (08:53→23:12)
[2024-08-22] MEDS: Iron Polysaccharide Complex 150 MG CAPSULE PO (08:56)
[2024-08-22] MEDS: Ascorbic Acid 500 MG Tablet PO (08:56)
[2024-08-22] MEDS: Folic Acid 1 MG Tablet PO (08:56)
[2024-08-22] MEDS: Losartan Potassium 100 MG Tablet PO (08:56)
[2024-08-22] MEDS: Cholecalciferol (Vit D3) 125 MCG CAPSULE (5,000 UNITS) 250 MCG PO (08:59)
[2024-08-22 09:00] VITALS: BP 123/60; PULSE 84; RESP 16; TEMP 36.8; O2SAT 96
--- NOTE | 2024-08-22 10:04 | MDS.RN ---
MDS pain interview completed.
--- NOTE | 2024-08-22 11:45 | CASEMGMT ---
Social Work SW completed BIMS () and PHQ-2 () for MDS assessment. Aimee Wright MSW TRAFFIC SIGN SUPERVISOR
[2024-08-22] MEDS: Pantoprazole Sodium 40 MG Tablet PO (23:10)
[2024-08-22] MEDS: Doxepin Hcl 25 MG Capsule PO (23:10)
[2024-08-23] MEDS: oxyCODONE 5 MG Tablet PO ×3 (02:05→21:14)
[2024-08-23] MEDS: Acetaminophen 500 MG Tablet 1000 MG PO ×3 (06:41→21:15)
[2024-08-23] MEDS: Sucralfate 1 GM Tablet PO ×4 (06:41→21:15)
[2024-08-23 09:35] VITALS: BP 119/43; PULSE 78; RESP 16; TEMP 36.9; O2SAT 98
[2024-08-23] MEDS: Losartan Potassium 100 MG Tablet PO (09:38)
[2024-08-23] MEDS: Pantoprazole Sodium 40 MG Tablet PO ×2 (09:38→21:16)
[2024-08-23] MEDS: Cholecalciferol (Vit D3) 125 MCG CAPSULE (5,000 UNITS) 250 MCG PO (09:38)
[2024-08-23] MEDS: Folic Acid 1 MG Tablet PO (09:38)
[2024-08-23] MEDS: Ascorbic Acid 500 MG Tablet PO (09:38)
[2024-08-23] MEDS: Iron Polysaccharide Complex 150 MG CAPSULE PO (09:38)
[2024-08-23] MEDS: Gabapentin 300 MG Capsule PO ×3 (09:41→21:14)
[2024-08-23] MEDS: Doxepin Hcl 25 MG Capsule PO (21:16)
[2024-08-24] MEDS: oxyCODONE 5 MG Tablet PO (06:14)
[2024-08-24] MEDS: Acetaminophen 500 MG Tablet 1000 MG PO (06:15)
[2024-08-24] MEDS: Sucralfate 1 GM Tablet PO ×2 (06:15→10:58)
[2024-08-24 06:52] VITALS: PULSE 74; RESP 16; O2SAT 95
[2024-08-24] MEDS: Gabapentin 300 MG Capsule PO (07:58)
[2024-08-24] MEDS: Pantoprazole Sodium 40 MG Tablet PO (07:59)
[2024-08-24] MEDS: Losartan Potassium 100 MG Tablet PO (07:59)
[2024-08-24] MEDS: Ascorbic Acid 500 MG Tablet PO (08:00)
[2024-08-24] MEDS: Folic Acid 1 MG Tablet PO (08:00)
[2024-08-24] MEDS: Cholecalciferol (Vit D3) 125 MCG CAPSULE (5,000 UNITS) 250 MCG PO (08:00)
[2024-08-24] MEDS: Iron Polysaccharide Complex 150 MG CAPSULE PO (08:01)
[2024-08-24 08:04] VITALS: BP 149/70; PULSE 77; RESP 16; TEMP 36.7; O2SAT 97
--- NOTE | 2024-08-24 11:59 | NURSING ---
RN district supervisor was able to get Pediatric walker from [facility] office [place] in hosptial, Front wheels placed and adjusted walker to exact height as one being used for therapy. here, reviewed and pt signed WC [facility] paperwork.
== END 2024-08-24 12:05 | disposition home health service (06) | DRG 559 ==
PROVIDERS: Admitting Provider Family Medicine Geriatric Medicine; PCP Internal Medicine; Visit Provider Family Medicine Geriatric Medicine
DX: M80.051D Age-related osteoporosis with current pathological fracture, right femur, subsequent encounter for fracture with routine healing (principal); G92.8 Other toxic encephalopathy; L03.115 Cellulitis of right lower limb; M06.9 Rheumatoid arthritis, unspecified; D50.9 Iron deficiency anemia, unspecified; I10 Essential (primary) hypertension; K25.9 Gastric ulcer, unspecified as acute or chronic, without hemorrhage or perforation; E87.6 Hypokalemia; E55.9 Vitamin D deficiency, unspecified; E53.8 Deficiency of other specified B group vitamins; G62.9 Polyneuropathy, unspecified; M47.816 Spondylosis without myelopathy or radiculopathy, lumbar region; T40.2X5D Adverse effect of other opioids, subsequent encounter; Z79.899 Other long term (current) drug therapy; G47.00 Insomnia, unspecified; M97.01XD Periprosthetic fracture around internal prosthetic right hip joint, subsequent encounter
CPT/HCPCS: 36415; 73502; 80048; 82274; 85014; 85018; 85025; 87811; 97110; 97116; 97162; 97166; 97530; 97535; 97802; A4216; J8610

== ENCOUNTER → 2024-08-19 | Outpatient (CLI) | payer MEDICARE, SELFPAY ==
--- NOTE | 2024-08-19 08:37 | VDLE_ITS ---
Reason For Study: Right leg swelling RIGHT LEFT GSV is normal. CFV is compressible, spontaneous, phasic, CFV is compressible, spontaneous, phasic, competent, and demonstrates normal competent and demonstrates normal augmentation. augmentation. FV is compressible, spontaneous, phasic, competent and demonstrates normal augmentation. POP V is compressible, spontaneous, phasic, competent and demonstrates normal augmentation. T/P Trunk is compressible. PTV is compressible. RT PerV is compressible. Procedure This is a venous duplex using B-mode, color flow and spectral Doppler. Exam performed portable in patient room. A preliminary report was called and/or faxed to Sally SEGURA. VL/Venous Duplex US, Unilateral Interpretation Summary Deep veins of the right lower extremity are patent and compressible segmentally . There is no evidence of right lower extremity deep vein thrombosis. The right great sapheno us vein appears patent and compressible segmentally. Ordering Physician: Young Ng Chi Referring Physician: Patt oJy M.D. Performed By: Laura Dimas RVT
== END | disposition home or self-care (01) ==
LOC: CVS 08:36
PROVIDERS: PCP Internal Medicine; Referring Provider Family Medicine Geriatric Medicine; Visit Provider Family Medicine Geriatric Medicine
DX: R22.41 Localized swelling, mass and lump, right lower limb (principal)
CPT/HCPCS: 93971

== ENCOUNTER → 2024-09-05 | Outpatient (CLI) | payer MEDICARE, SELFPAY ==
[2024-09-05 15:03] LABS: Absolute Lymphocyte Count 0.91 X10^3/uL (0.83-4.51); Absolute Neutrophil Count 3.5 X10^3/uL (2.0-7.7); Basophil# 0.03 X10^3/uL; Basophil% 0.6 % (0-1); Eosinophil# 0.01 X10^3/uL; Eosinophils% 0.2 % (0-5); Hematocrit 32.5 % (37-47); Hemoglobin 10.1 g/dL (12.0-15.0); Lymphocyte # 0.91 X10^3/ul (0.83-4.51); Lymphocyte % 18.1 % (19-41); Mean Corp Hgb Conc 31.1 g/dL (32-36); Mean Corpuscular Hgb 28.4 pg (27.0-32.0); Mean Corpuscular Volume 91.3 fL (81-99); Mean Platelet Vol. 9.2 fl (6.2-12.0); Monocyte# 0.53 X10^3/uL; Monocyte% 10.6 % (0-10); NRBC Flagged by Analyzer 0 % (0-5); Neutrophil # 3.52 X10^3/uL (2.7-7.7); Neutrophil % 70.1 % (47-70); Platelet Count 302 K/mm3 (150-450); RBC Distribution Width CV 14.5 % (11.6-14.6); RBC Distribution Width SD 48.5 fl (35.1-43.9); Red Blood Count 3.56 M/mm3 (4.2-5.4)
[2024-09-05 16:03] LABS: ALB/GLOB Ratio 1.2 RATIO (0.9-2.4); AST(SGOT) 18 U/L (15-37); Alanine Aminotransfer ALT/SGPT 18 U/L (13-56); Albumin, Serum 3.8 g/dL (3.2-5.0); Alkaline Phosphatase 90 U/L (45-117); Anion Gap 8 (5-15); BUN 10 mg/dL (7-18); BUN/Creat Ratio 14.3 RATIO (10-20); Chloride 105 mmol/L (98-107); EST Glomerular Filtration Rate 88 mL/min (>60); Est Glom Filt Rate - Afr Amer 106 mL/min (>60); Globulin 3.3 g/dL (2.2-4.2); Glucose 105 mg/dL (74-106); Potassium 3.3 mmol/L (3.5-5.1); Protein, Total 7.1 g/dL (6.4-8.2); Sodium Level 141 mmol/L (136-145)
== END | disposition home or self-care (01) ==
LOC: MTLAB 12:35
PROVIDERS: PCP Internal Medicine; Referring Provider Internal Medicine Rheumatology; Visit Provider Internal Medicine Rheumatology
DX: M06.4 Inflammatory polyarthropathy (principal); Z79.899 Other long term (current) drug therapy; M79.7 Fibromyalgia; M18.0 Bilateral primary osteoarthritis of first carpometacarpal joints; M17.0 Bilateral primary osteoarthritis of knee; D53.9 Nutritional anemia, unspecified
CPT/HCPCS: 36415; 80053; 85025

== ENCOUNTER → 2024-11-22 | Outpatient (CLI) | payer MEDICARE, SELFPAY ==
[2024-11-22 17:48] LABS: Absolute Lymphocyte Count 1.64 X10^3/uL (0.83-4.51); Absolute Neutrophil Count 3.9 X10^3/uL (2.0-7.7); Basophil# 0.04 X10^3/uL; Basophil% 0.7 % (0-1); Eosinophil# 0.01 X10^3/uL; Eosinophils% 0.2 % (0-5); Hematocrit 37.2 % (37-47); Hemoglobin 11.9 g/dL (12.0-15.0); Lymphocyte # 1.64 X10^3/ul (0.83-4.51); Lymphocyte % 26.7 % (19-41); Mean Corpuscular Hgb 27.9 pg (27.0-32.0); Mean Corpuscular Volume 87.1 fL (81-99); Mean Platelet Vol. 9.2 fl (6.2-12.0); Monocyte# 0.58 X10^3/uL; Monocyte% 9.4 % (0-10); NRBC Flagged by Analyzer 0 % (0-5); Neutrophil # 3.87 X10^3/uL (2.7-7.7); Neutrophil % 62.8 % (47-70); Platelet Count 297 K/mm3 (150-450); RBC Distribution Width CV 15.6 % (11.6-14.6); RBC Distribution Width SD 49.1 fl (35.1-43.9); Red Blood Count 4.27 M/mm3 (4.2-5.4); White Blood Count 6.2 K/mm3 (4.4-11.0)
[2024-11-22 18:16] LABS: ALB/GLOB Ratio 1.4 RATIO (0.9-2.4); AST(SGOT) 21 U/L (<=31); Alanine Aminotransfer ALT/SGPT 11 U/L (<=34); Albumin, Serum 4.1 g/dL (3.4-4.8); Alkaline Phosphatase 105 U/L (35-104); Anion Gap 12 (5-15); BUN 14 mg/dL (4-19); BUN/Creat Ratio 15.8 RATIO (10-20); Calcium,Total 10.5 mg/dL (7.6-11.0); Carbon Dioxide 26.4 mmol/L (21.0-32.0); Chloride 102 mmol/L (98-108); Creatinine, Serum 0.88 mg/dL (0.70-1.20); EST Glomerular Filtration Rate 70 (>60); Glucose 89 mg/dL (70-99); Potassium 4.1 mmol/L (3.3-5.1); Protein, Total 7.1 g/dL (5.9-8.4); Sodium Level 140 mmol/L (133-145); Total Bilirubin 0.64 mg/dL (0.00-1.30)
== END | disposition home or self-care (01) ==
LOC: MTLAB 14:41
PROVIDERS: PCP Internal Medicine; Referring Provider Internal Medicine Rheumatology; Visit Provider Internal Medicine Rheumatology
DX: M06.4 Inflammatory polyarthropathy (principal); Z79.899 Other long term (current) drug therapy; M79.7 Fibromyalgia; M18.0 Bilateral primary osteoarthritis of first carpometacarpal joints; M17.0 Bilateral primary osteoarthritis of knee
CPT/HCPCS: 36415; 80053; 85025

== ENCOUNTER → 2025-01-03 | Outpatient (CLI) | payer MEDICARE, SELFPAY ==
[2025-01-03 11:58] LABS: Absolute Lymphocyte Count 1.14 X10^3/uL (0.83-4.51); Absolute Neutrophil Count 2.7 X10^3/uL (2.0-7.7); Basophil# 0.04 X10^3/uL; Basophil% 0.9 % (0-1); Eosinophil# 0.06 X10^3/uL; Eosinophils% 1.3 % (0-5); Hematocrit 36.4 % (37-47); Hemoglobin 11.8 g/dL (12.0-15.0); Lymphocyte # 1.14 X10^3/ul (0.83-4.51); Lymphocyte % 25.6 % (19-41); Mean Corp Hgb Conc 32.4 g/dL (32-36); Mean Corpuscular Hgb 28.9 pg (27.0-32.0); Mean Corpuscular Volume 89.2 fL (81-99); Mean Platelet Vol. 9.1 fl (6.2-12.0); Monocyte# 0.52 X10^3/uL; Monocyte% 11.7 % (0-10); NRBC Flagged by Analyzer 0 % (0-5); Neutrophil # 2.69 X10^3/uL (2.7-7.7); Neutrophil % 60.3 % (47-70); Platelet Count 263 K/mm3 (150-450); RBC Distribution Width CV 17.8 % (11.6-14.6); Red Blood Count 4.08 M/mm3 (4.2-5.4); White Blood Count 4.5 K/mm3 (4.4-11.0)
[2025-01-03 12:26] LABS: ALB/GLOB Ratio 1.6 RATIO (0.9-2.4); AST(SGOT) 26 U/L (<=31); Alanine Aminotransfer ALT/SGPT 29 U/L (<=34); Albumin, Serum 4.3 g/dL (3.4-4.8); Alkaline Phosphatase 137 U/L (35-104); Anion Gap 11 (5-15); BUN 16 mg/dL (4-19); BUN/Creat Ratio 18.6 RATIO (10-20); Calcium,Total 10.1 mg/dL (7.6-11.0); Carbon Dioxide 26.5 mmol/L (21.0-32.0); Chloride 102 mmol/L (98-108); Creatinine, Serum 0.87 mg/dL (0.70-1.20); EST Glomerular Filtration Rate 71 (>60); Globulin 2.7 g/dL (2.2-4.2); Glucose 97 mg/dL (70-99); Potassium 3.8 mmol/L (3.3-5.1); Sodium Level 139 mmol/L (133-145)
== END | disposition home or self-care (01) ==
LOC: MTLAB 09:45
PROVIDERS: PCP Internal Medicine; Referring Provider Internal Medicine Rheumatology; Visit Provider Internal Medicine Rheumatology
DX: M06.00 Rheumatoid arthritis without rheumatoid factor, unspecified site (principal); Z79.899 Other long term (current) drug therapy; M79.7 Fibromyalgia
CPT/HCPCS: 36415; 80053; 85025

== ENCOUNTER 2025-01-12 14:04 | Emergency (ER) | payer MEDICARE, SELFPAY ==
[2025-01-12 14:05] VITALS: BP 171/70; PULSE 78; RESP 16; TEMP 36.3; O2SAT 99
[2025-01-12 14:07] VITALS: BMI 32.1
[2025-01-12 14:26] VITALS: BP 161/75; BP 162/86; BP 206/91; PULSE 74; PULSE 80; PULSE 83
--- NOTE | 2025-01-12 14:27 | ED.VIS.GI ---
HPI HPI - GI History of Present Illness Chief Complaint: GI Bleed Informant: patient Narrative Narrative: 69-year-old female presents because she had a couple of drops of blood in her underwear today and then she saw some blood when she wiped. She thinks it is rectal blood. She denies any rectal/perianal pain, but states she has been having some upper abdominal pain all the way across for the past week. There is no association with eating, does not get worse or better, and she denies any nausea or vomiting. It is worse when she moves, and she states that when she was getting out of her camper yesterday she bent forward at 1 point and had a sharp pain in this area. She denies any radiation into her back or chest. No fevers or chills. Her last bowel movement was yesterday and was normal and formed without melena or blood. No problems urinating. She states last year she was diagnosed with a couple of peptic ulcers that ended up being cauterized. She states she has been out of her tramadol that she uses for her arthritis recently, and as a result for the last few days she has been taking ibuprofen every day but not longer than that. [facility] Medical History Postoperative anemia Wears glasses Wears dentures Loss of hearing Marijuana use Walker as ambulation aid PONV (postoperative nausea and vomiting) Shortness of breath on exertion Non-smoker Leg cramps History of edema Cochlear implant in place Tonsillectomy planned Hx of cataract Home Medications ?Medication ?Instructions ?Recorded ?Last Taken ?Type folic acid 1 mg tablet 1 mg PO DAILYCM Supplement #0 tabs 08/05/24 01/12/25 Rx acetaminophen 500 mg tablet 1,000 mg (2 x 500 mg) PO Q8 #0 tabs 08/19/24 01/11/25 Rx doxepin 25 mg capsule 25 mg PO QHS 30 days #30 caps 08/19/24 Unknown Rx methotrexate sodium 2.5 mg tablet 15 mg (6 x 2.5 mg) PO We@1000 #0 08/19/24 01/08/25 Rx tabs MEDICAL MARIJUANA 01/12/25 Unknown History (INFORMATIONAL USE ONLY-PT USES MEDICAL MARIJUANA cholecalciferol (vitamin D3) 125 250 mcg PO DAILY 01/12/25 01/12/25 History mcg (5,000 unit) capsule ibuprofen 200 mg tablet (Advil) 400 mg PO Q6H PRN pain 01/12/25 01/11/25 History tramadol 50 mg tablet 50 mg PO 4X/DAY PRN PRN pain 4 01/12/25 Unknown Rx days #15 tabs Allergy/AdvReac Type Severity Reaction Status Date / Time latex AdvReac Intermediate Rash Verified 01/12/25 14:05 Surgical History History of revision of total replacement of right hip joint History of hysterectomy History of carpal tunnel release of both wrists Hx of removal of cyst Hx of arthroscopy of right knee Hx of cholecystectomy Social History household members: spouse Smoking Status: Never smoker alcohol intake: never substance use type: does not use ROS ROS ED Constitutional Constitutional ED: Denies chills or fever(s) Eyes Eyes: Denies change in vision or diplopia ENT ENT ED: Denies rhinorrhea or sore throat Cardiovascular Cardiovascular: Denies chest pain, edema, lightheadedness, palpitations or syncope Respiratory/Chest Respiratory/Chest: Denies cough or dyspnea Gastrointestinal Gastrointestinal: Reports abdominal pain; Denies diarrhea, hematemesis, hematochezia, melena, nausea or vomiting Genitourinary Genitourinary ED: Denies dysuria or hematuria Musculoskeletal Musculoskeletal: Denies back pain or neck pain Integumentary Denies abscess or rash Neurologic Neurologic: Denies headache(s), paresthesias or weakness Psychiatric Psychiatric: Denies suicidal thoughts EXAM Physical Exam Const Vital Signs: 01/12/25 14:05 01/12/25 14:26 01/12/25 14:56 Temperature 97.3 F L Temperature Source Temporal Pulse Rate 78 76 Pulse Rate [Lying] 80 Pulse Rate [Sitting (for 1 minute prior to obtaining)] 74 Pulse Rate [Standing (for 1 minute prior to obtaining)] 83 Respiratory Rate 16 18 Blood Pressure 171/70 H Blood Pressure [Lying] 161/75 H Blood Pressure [Sitting (for 1 minute prior to obtaining)] 162/86 H Blood Pressure [Standing (for 1 minute prior to obtaining)] 206/91 H Blood Pressure Mean 103 Blood Pressure Mean [Lying] 103 Blood Pressure Mean [Sitting (for 1 minute prior to obtaining)] 111 Blood Pressure Mean [Standing (for 1 minute prior to obtaining)] 129 Pulse Ox 99 98 Oxygen Delivery Method Room Air Room Air 01/12/25 16:04 Temperature Temperature Source Pulse Rate 73 Pulse Rate [Lying] Pulse Rate [Sitting (for 1 minute prior to obtaining)] Pulse Rate [Standing (for 1 minute prior to obtaining)] Respiratory Rate 17 Blood Pressure 177/86 H Blood Pressure [Lying] Blood Pressure [Sitting (for 1 minute prior to obtaining)] Blood Pressure [Standing (for 1 minute prior to obtaining)] Blood Pressure Mean 116 Blood Pressure Mean [Lying] Blood Pressure Mean [Sitting (for 1 minute prior to obtaining)] Blood Pressure Mean [Standing (for 1 minute prior to obtaining)] Pulse Ox 97 Oxygen Delivery Method Positive well nourished and well developed General Appearance ED: well developed and NAD HEENT Reports moist mucous membranes normocephalic and atraumatic Eyes PERRL and EOMs intact bilaterally Neck full ROM and supple Resp normal respiratory effort and clear to auscultation bilaterally Cardio regular rate, regular rhythm and no murmurs Rate: Negative for tachycardic GI non-distended GI Narrative: Mild tenderness throughout upper abdomen nonfocal negative Denise. Lower abdomen benign nontender. No guarding or rebound. Normal bowel sounds present. The tender area in her upper abdomen progresses onto her lower rib cage which is also tender, bilaterally. No crepitance or subcutaneous emphysema. Auscultation: normoactive bowel sounds Palpation: soft Back/Spine no CVA tenderness General Back: other FROM Extremity normal to inspection General Extremety ED: Negative for edema, pulses abnormal or tenderness General Extremity: Negative for edema or pulses abnormal Neuro oriented x3, CN's II-XII intact bilaterally and no sensory deficits noted Sensorium / Orientation: awake and alert Motor Exam: strength 5/5 throughout Skin no rashes or lesions noted and no wounds MDM MDM MDM Narrative Medical decision making narrative: Obtain labs, her hemoglobin is 10.7 which is down about a gram but close compared with the week ago, her BUN is a little elevated but not enough to suggest an upper GI source. The rest of her labs are unremarkable. I had nurses do orthostatics they were negative and she is feeling well except for the pain in her upper abdomen it has been there for a week and seems very musculoskeletal. Additionally she states she ate a hot dog today and it did not affect her pain or make it worse at all. Therefore this is less likely biliary in nature especially with her liver enzymes unremarkable and no hyperbilirubinemia. She states she has been out of her tramadol that she uses for chronic pain and arthritis. I did a rectal exam on her, there is no external hemorrhoids or tenderness/abscess, and on SHERLYN, there is a trace amount of light yellow-brown stool with no melena or blood/bleeding. Given all of this I am comfortable discharging her home with close outpatient follow-up. We discussed potentially treating internal hemorrhoids empirically but she declines and does not want to do an injectable cream. She would rather watch and see how things go. She not anticoagulated. I do not think this is peptic ulcer disease. I am giving her a refill of her tramadol and a dose here along with some Tylenol before discharge and are comfortable with that plan of following up. Lab Data Attestation: I reviewed the patient's lab results. Labs: Laboratory Results - last 24 hr 01/12/25 14:45 WBC 7.5 RBC 3.60 L Hgb 10.7 L Hct 32.7 L MCV 90.8 MCH 29.7 MCHC 32.7 RDW Std Deviation 59.3 H RDW Coeff of Oly 17.7 H Plt Count 240 MPV 8.9 Immature Gran % (Auto) 0.400 Neut % (Auto) 69.7 Lymph % (Auto) 20.3 [place] % (Auto) 8.6 Eos % (Auto) 0.5 Baso % (Auto) 0.5 Absolute Neuts (auto) 5.3 Absolute Lymphs (auto) 1.53 Nucleated RBC % 0 Sodium 142 Potassium 3.9 Chloride 109 H Carbon Dioxide 23.0 Anion Gap 11 BUN 25 H Creatinine 0.95 Estim Creat Clear Calc 48.14 L Est GFR (MDRD) Non-Af 64 BUN/Creatinine Ratio 26.2 H Glucose 111 H Calcium 9.6 Total Bilirubin 0.57 AST 19 ALT 14 Alkaline Phosphatase 116 H Total Protein 6.8 Albumin 4.0 Globulin 2.8 Albumin/Globulin Ratio 1.4 Lipase 32 Discharge Plan Triage Chief Complaint: GI Bleed ED Provider: Ramu Romero Dx/Rx/DC Orders Clinical Impression: Rectal bleeding, Strain of abdominal wall Instructions: Rectal Bleeding Tx, ED Muscle Strain, Abdomen Prescriptions: Continued folic acid 1 mg Tablet 1 mg PO DAILYCM Qty: 0 0RF doxepin 25 mg Capsule 25 mg PO QHS 30 Days Qty: 30 0RF acetaminophen 500 mg Tablet 1,000 mg PO Q8 Qty: 0 0RF methotrexate sodium 2.5 mg Tablet 15 mg PO We@1000 Qty: 0 0RF ibuprofen [Advil] 200 mg tablet 400 mg PO Q6H PRN (Reason: pain) cholecalciferol (vitamin D3) 125 mcg (5,000 unit) capsule 250 mcg PO DAILY (DME) MEDICAL MARIJUANA (INFORMATIONAL USE ONLY-PT USES MEDICAL MARIJUANA Edible See Rx Instructions .ROUTE Rx Instructions: PT HAD A GUMMY LAST NIGHT tramadol 50 mg tablet 50 mg PO 4X/DAY PRN PRN (Reason: pain) 4 Days Qty: 15 0RF Primary Care Provider: Patt Joy Referrals: Patt Joy DO [Primary Care Provider] - As soon as possible Print Language: Slovenian Disposition Disposition: Home, Self Care
[2025-01-12 14:55] LABS: Absolute Lymphocyte Count 1.53 X10^3/uL (0.83-4.51); Absolute Neutrophil Count 5.3 X10^3/uL (2.0-7.7); Basophil# 0.04 X10^3/uL; Basophil% 0.5 % (0-1); Eosinophil# 0.04 X10^3/uL; Eosinophils% 0.5 % (0-5); Hematocrit 32.7 % (37-47); Hemoglobin 10.7 g/dL (12.0-15.0); Lymphocyte # 1.53 X10^3/ul (0.83-4.51); Lymphocyte % 20.3 % (19-41); Mean Corp Hgb Conc 32.7 g/dL (32-36); Mean Corpuscular Hgb 29.7 pg (27.0-32.0); Mean Corpuscular Volume 90.8 fL (81-99); Mean Platelet Vol. 8.9 fl (6.2-12.0); Monocyte# 0.65 X10^3/uL; Monocyte% 8.6 % (0-10); NRBC Flagged by Analyzer 0 % (0-5); Neutrophil # 5.25 X10^3/uL (2.7-7.7); Neutrophil % 69.7 % (47-70); Platelet Count 240 K/mm3 (150-450); RBC Distribution Width CV 17.7 % (11.6-14.6); RBC Distribution Width SD 59.3 fl (35.1-43.9); White Blood Count 7.5 K/mm3 (4.4-11.0)
[2025-01-12 14:56] VITALS: PULSE 76; RESP 18; O2SAT 98
[2025-01-12 15:12] LABS: ALB/GLOB Ratio 1.4 RATIO (0.9-2.4); AST(SGOT) 19 U/L (<=31); Alanine Aminotransfer ALT/SGPT 14 U/L (<=34); Alkaline Phosphatase 116 U/L (35-104); Anion Gap 11 (5-15); BUN 25 mg/dL (4-19); BUN/Creat Ratio 26.2 RATIO (10-20); Calcium,Total 9.6 mg/dL (7.6-11.0); Chloride 109 mmol/L (98-108); Creatinine, Serum 0.95 mg/dL (0.70-1.20); EST Glomerular Filtration Rate 64 (>60); Estimated Creatinine Clearance 48.14 ml/min (50-250); Globulin 2.8 g/dL (2.2-4.2); Glucose 111 mg/dL (70-99); Lipase 32 U/L (13-75); Potassium 3.9 mmol/L (3.3-5.1); Protein, Total 6.8 g/dL (5.9-8.4); Sodium Level 142 mmol/L (133-145); Total Bilirubin 0.57 mg/dL (0.00-1.30)
[2025-01-12 16:04] VITALS: BP 177/86; PULSE 73; RESP 17; O2SAT 97
[2025-01-12] MEDS: traMADol 50 MG Tablet PO (16:14)
[2025-01-12] MEDS: Acetaminophen 500 MG Tablet 1000 MG PO (16:14)
[2025-01-12 16:27] VITALS: BP 177/86; PULSE 71; RESP 16; TEMP 36.1; O2SAT 98
[2025-01-12 16:28] VITALS: BP 177/86; PULSE 73; RESP 17; TEMP 36.3; O2SAT 97
== END 2025-01-12 16:32 | disposition home or self-care (01) ==
PROVIDERS: Emergency Provider Emergency Medicine; PCP Internal Medicine; Visit Provider Emergency Medicine
DX: K62.5 Hemorrhage of anus and rectum (principal); Z90.710 Acquired absence of both cervix and uterus; Z90.49 Acquired absence of other specified parts of digestive tract; Z96.641 Presence of right artificial hip joint; S39.011A Strain of muscle, fascia and tendon of abdomen, initial encounter
CPT/HCPCS: 80053; 83690; 85025; 99284; A4216

== ENCOUNTER → 2025-01-16 | Outpatient (CLI) | payer MEDICARE, SELFPAY ==
--- NOTE | 2025-01-16 11:15 | US_ITS ---
PROCEDURE: ABDOMEN COMPLETE 01/16/2025 REASON FOR EXAM: LUQ PAIN TECHNIQUE: Complete abdominal ultrasound pierson-scale images with color doppler. PATIENT PREPARATION: Per protocol COMPARISON: None FINDINGS: Liver: Grossly normal size and echotexture. Gallbladder: Surgically absent. Common bile duct: Normal measuring 6.3 mm . Pancreas: Visualized portions are unremarkable. The distal body and tail are obscured by bowel gas. Kidneys: The right kidney measures 11.4 cm x 4.5 cm x 4.4 cm there is a 1 cm x 1.2 cm x 1.1 cm cyst in the lower pole.. The left kidney measures 9.9 cm x 5 cm x 4.7 cm minimal left hydronephrosis.. Spleen: The spleen measures 9.7 cm x 3.6 cm x 3.8 cm. . Aorta: Visualized abdominal aorta is of normal size. IVC: Visualized inferior vena cava is unremarkable. Peritoneal Findings: No ascites identified. US/Abdomen Complete IMPRESSION: Status post cholecystectomy. Small right renal cyst. Minimal left hydronephrosis. Reading Location: [id number]
[2025-01-16 12:51] LABS: Color, Urine Straw (Yellow); Glucose, Dipstick Normal (Normal); Ketone-Dipstick Negative (Negative); Leukocyte Esterase-Dipstick Negative /ul (Negative); Nitrite-Dipstick Negative (Negative); Occult Blood-Urine 50 /ul (Negative); Protein-Dipstick 30 mg/dl (Negative); Urine Bilirubin Dipstick Negative (Negative); Urine Clarity Clear (Clear); Urine Urobilinogen Normal (Normal); Urine pH 6.5 (5.0 - 8.0)
[2025-01-16 12:56] LABS: Erythrocyte Sedimentation Rate 18 mm/hr (0-30)
[2025-01-16 13:00] LABS: Hematocrit 35.2 % (37-47); Hemoglobin 11.8 g/dL (12.0-15.0); Mean Corp Hgb Conc 33.5 g/dL (32-36); Mean Corpuscular Hgb 29.9 pg (27.0-32.0); Mean Corpuscular Volume 89.1 fL (81-99); Mean Platelet Vol. 9.3 fl (6.2-12.0); Platelet Count 267 K/mm3 (150-450); RBC Distribution Width CV 16.9 % (11.6-14.6); RBC Distribution Width SD 54.8 fl (35.1-43.9); Red Blood Count 3.95 M/mm3 (4.2-5.4); White Blood Count 5.3 K/mm3 (4.4-11.0)
[2025-01-16 13:43] LABS: Amylase 54 U/L (28-100); CRP < 3.00 mg/L (0.0-3.0)
== END | disposition home or self-care (01) ==
PROVIDERS: PCP Internal Medicine; Referring Provider Internal Medicine; Visit Provider Internal Medicine
DX: R10.12 Left upper quadrant pain (principal); R31.0 Gross hematuria; R10.13 Epigastric pain
CPT/HCPCS: 76700; 81002; 82150; 85027; 85652; 86140; 87086; 87088

== ENCOUNTER → 2025-02-19 | Outpatient (CLI) | payer MEDICARE, SELFPAY ==
--- NOTE | 2025-02-19 16:59 | CT_ITS ---
PROCEDURE: ABDOMEN/PELVIS WITHOUT CONT 02/19/2025 REASON FOR EXAM: R FLANK PAIN TECHNIQUE: ABDOMEN/PELVIS WITHOUT CONT Noncontrast technique limits evaluation of the abdominal and pelvic viscera. Coronal and Sagittal reconstruction series were provided. One or more dose reduction techniques were used (e.g., Automated exposure control, adjustment of the mA and/or kV according to patient size, use of iterative reconstruction technique). ORAL CONTRAST TYPE: None. AMOUNT: mL DLP: 700.98. DLP: 16.13 COMPARISON: 03/22/2020. FINDINGS: Moderate osteopenia. Moderate diffuse spondylosis. Unremarkable metallic prosthesis of the right hip. Prior hysterectomy. Diffuse thickening of the bladder, possibly cystitis. Diffuse colonic diverticulosis. Mild thickening of the sigmoid colon, probably mild colitis/diverticulitis without perforation or abscess formation. Bilateral parapelvic renal cysts are noted with the largest measuring 3.5 cm. Prior cholecystectomy. Calcified splenic granuloma. Mild diffuse thickening of the stomach suggestive of gastritis. The visualized lung bases are unremarkable. Normal unenhanced liver. Normal extrahepatic biliary system. Normal unenhanced spleen. Normal pancreas. Normal bilateral adrenal glands. Normal size of the right kidney. There is no right renal mass. There are no right renal calculi. There is no right hydronephrosis. Normal visualized right ureter. Normal size of the left kidney. There is no left renal mass. There are no left renal calculi. There is no left hydronephrosis. Normal visualized left ureter. Normal small intestine. The appendix is visualized and appears normal. There is no demonstrated peritoneal fluid. Calcified atheromatous plaques of the abdominal aorta. Normal inferior vena cava. Normal retroperitoneum. There is no pelvic mass lesion or lymphadenopathy. There is no pelvic fluid. CT/Abdomen/Pelvis without Cont IMPRESSION: 1. Moderate osteopenia. 2. Moderate diffuse spondylosis. 3. Unremarkable metallic prosthesis of the right hip. 4. Prior hysterectomy. 5. Diffuse thickening of the bladder, possibly cystitis. 6. Diffuse colonic diverticulosis. 7. Mild thickening of the sigmoid colon, probably mild colitis/diverticulitis w ithout perforation or abscess formation. 8. Bilateral parapelvic renal cysts are noted with the largest measuring 3.5 cm . 9. Prior cholecystectomy. 10. Calcified splenic granuloma. 11. Mild diffuse thickening of the stomach suggestive of gastritis. Reading Location[facility]
== END | disposition home or self-care (01) ==
PROVIDERS: PCP Internal Medicine; Referring Provider Internal Medicine; Visit Provider Internal Medicine
DX: R10.9 Unspecified abdominal pain (principal)
CPT/HCPCS: 74176

== ENCOUNTER → 2025-03-10 | Outpatient (CLI) | payer MEDICARE, SELFPAY | END | disposition home or self-care (01) | PROVIDERS: PCP Internal Medicine; Referring Provider Physician Assistant Medical; Visit Provider Physician Assistant Medical | DX: M85.89 Other specified disorders of bone density and structure, multiple sites (principal); W19.XXXA Unspecified fall, initial encounter | CPT/HCPCS: 73502 ==

== ENCOUNTER 2025-04-02 14:04 | Emergency (ER) | payer MEDICARE, SELFPAY ==
[2025-04-02 14:04] VITALS: BP 144/65; PULSE 118; RESP 16; TEMP 37.2; O2SAT 99
--- NOTE | 2025-04-02 14:18 | CT_ITS ---
PROCEDURE: ABDOMEN/PELVIS W IV CONT ONLY 04/02/2025 REASON FOR EXAM: ABDOMINAL PAIN TECHNIQUE: ABDOMEN/PELVIS W IV CONT ONLY Coronal and Sagittal reconstruction series were provided. CONTRAST: 100 mL of Isovue 370 One or more dose reduction techniques were used (e.g., Automated exposure control, adjustment of the mA and/or kV according to patient size, use of iterative reconstruction technique. RADIATION DOSE SUMMARY: DLP: 789 mGycm COMPARISON: CT from 02/19/25 FINDINGS: Limited sections of the lung bases demonstrate no focal pulmonary mass or consolidations. The spleen, pancreas, and both adrenal glands demonstrate no acute findings. Ill-defined left hepatic lobe hypodensity spanning 4.2 x 3.6 cm which may reflect neoplastic process, infarction, and/or filling artifact. The gallbladder is surgically removed. The stomach is unremarkable. The small bowel loops are not dilated. The appendix is not clearly identified, although there are no secondary signs of appendicitis. Diffuse colonic inflammation and thickening which may reflect pancolitis. No bowel obstruction. Extensive colonic diverticulosis without acute diverticulitis. There is no free air or significant free fluid. The kidneys are unremarkable. The urinary bladder is not distended. The pelvic structures are intact. There is no solid pelvic mass. No significant lymphadenopathy. Prior hysterectomy. The aorta and IVC demonstrate no acute findings. Extensive atherosclerosis of the abdominal vasculature. Extensive multilevel degenerative changes of the lumbar spine. No acute fractures. Unremarkable metallic prosthesis of the right hip. CT/Abdomen/Pelvis W IV Cont ONLY IMPRESSION: Diffuse colonic inflammation and thickening which may reflect pancolitis. No b owel obstruction. Extensive colonic diverticulosis without acute diverticulitis. Ill-defined left hepatic lobe hypodensity spanning 4.2 x 3.6 cm which may refle ct neoplastic process, infarction, and/or filling artifact. Consider multiphasic CT/MR for further evaluation. Reading Location: [facility]
[2025-04-02] MEDS: 0.9% Normal Saline (1000mL) 1,000 ML 1000 ML IV (14:39)
--- NOTE | 2025-04-02 14:58 | EX.ED.DYSGE1 ---
HPI History of Present Illness Chief Complaint: Abd Pain Narrative Narrative: Chief complaint and HPI: Abdominal pain. 70-year-old female presents for evaluation of abdominal pain and dark stools. Patient has a past medical history of rheumatoid arthritis in which she is on methotrexate. Patient states she has been having abdominal pain for the past several weeks. States her PCP is treating her for diverticulitis. States she has been on multiple different antibiotics. Has not had any imaging. No history of prior diverticulitis. She states 2 days ago her bowel movements became dark in color which is why she presents. She denies any fever, chills, shortness of breath, chest pain, nausea, vomiting, constipation, dysuria. Endorses diarrhea and decreased p.o intake. Review of systems: See HPI Medications: As listed on the chart Allergies: As listed on the chart PFSH: Per chart Vital signs: As listed on the chart. Reviewed. Physical exam: Gen: A&O x3, NAD Head: Normocephalic, atraumatic Eyes: No sclera icterus, conjunctiva clear ENT: Moist mucous membranes Neck: Trachea midline, No JVD CV: RRR, no murmurs, no peripheral edema Resp: Lungs CTA BL, no w/r/c GI: Abd soft, non-distended, mildly tender to palpation diffusely, no r/r/g Rectal: Normal external examination. No evidence of hemorrhoids or fissures. Normal tone and sensation. No masses, fluctuance, or tenderness. No pain out of proportion. Stool light in color on gloved finger. : No CVA tenderness Musc: Full ROM, no deformity Skin: Warm, dry Neuro: Alert, oriented, grossly intact, sensation intact Psych: Cooperative, appropriate mood and affect [facility] Medical History Postoperative anemia Wears glasses Wears dentures Loss of hearing Marijuana use Walker as ambulation aid PONV (postoperative nausea and vomiting) Shortness of breath on exertion Non-smoker Leg cramps History of edema Cochlear implant in place Tonsillectomy planned Hx of cataract Home Medications ?Medication ?Instructions ?Recorded ?Last Taken ?Type folic acid 1 mg tablet 1 mg PO DAILYCM Supplement #0 tabs 08/05/24 01/12/25 Rx acetaminophen 500 mg tablet 1,000 mg (2 x 500 mg) PO Q8 #0 tabs 08/19/24 01/11/25 Rx doxepin 25 mg capsule 25 mg PO QHS 30 days #30 caps 08/19/24 Unknown Rx methotrexate sodium 2.5 mg tablet 15 mg (6 x 2.5 mg) PO We@1000 #0 08/19/24 01/08/25 Rx tabs cholecalciferol (vitamin D3) 125 250 mcg PO DAILY 01/12/25 01/12/25 History mcg (5,000 unit) capsule ibuprofen 200 mg tablet (Advil) 400 mg PO Q6H PRN pain 01/12/25 01/11/25 History tramadol 50 mg tablet 50 mg PO 4X/DAY PRN PRN pain 4 01/12/25 Unknown Rx days #15 tabs vancomycin 125 mg capsule 125 mg PO Q6H 10 days #40 caps 04/02/25 Unknown Rx (Vancocin) Allergy/AdvReac Type Severity Reaction Status Date / Time latex AdvReac Intermediate Rash Verified 04/02/25 14:06 Surgical History History of revision of total replacement of right hip joint History of hysterectomy History of carpal tunnel release of both wrists Hx of removal of cyst Hx of arthroscopy of right knee Hx of cholecystectomy Social History household members: spouse Smoking Status: Never smoker alcohol intake: never substance use type: does not use EXAM Physical Exam Const Vital Signs: 04/02/25 14:04 04/02/25 16:04 Temperature 99.0 F Temperature Source Oral Pulse Rate 118 H 95 Respiratory Rate 16 18 Blood Pressure 144/65 H 167/44 H Blood Pressure Mean 91 85 Pulse Ox 99 98 Oxygen Delivery Method Room Air Room Air MDM MDM MDM Narrative Medical decision making narrative: 70-year-old female presents for evaluation of abdominal pain and dark stools. Patient has a past medical history of rheumatoid arthritis in which she is on methotrexate. Patient states she has been having abdominal pain for the past several weeks. States her PCP is treating her for diverticulitis. States she has been on multiple different antibiotics. Has not had any imaging. No history of prior diverticulitis. Differential diagnosis includes but is not limited to gastroenteritis, diverticulitis, pancreatitis, UTI, electrolyte abnormality, GI bleed, C. difficile. NS bolus ordered. Laboratory workup ordered including CT abdomen pelvis. BMP relatively unremarkable except for mild dehydration without DIMA or significant electrolyte abnormality. No transaminitis. Lipase unremarkable. Stool occult positive however patient now tells me that she has been taking Pepto-Bismol over the last several days. This can cause a false positive. She did have a bowel movement here in the emergency department that was not dark in color. Will add on gastrointestinal panel with C. difficile. Patient is positive for C. difficile. This is likely the cause of her diarrhea and abdominal pain. She has been on multiple antibiotics. This would also explain her stool occult. P.o. vancomycin ordered, first dose here. Also written for vancomycin prescription. CBC, UA, CT abdomen pelvis pending at this time. Patient was signed out to oncoming provider Dr. Valles. Disposition pending results. Lab Data Labs: Laboratory Results - last 24 hr 04/02/25 04/02/25 04/02/25 14:28 14:28 15:31 WBC Cancelled Corrected WBC Cancelled RBC Cancelled Hgb Cancelled Hct Cancelled MCV Cancelled MCH Cancelled MCHC Cancelled RDW Std Deviation Cancelled RDW Coeff of Oly Cancelled Plt Count Cancelled MPV Cancelled Immature Gran % (Auto) Cancelled Neut % (Auto) Cancelled Lymph % (Auto) Cancelled [place] % (Auto) Cancelled Eos % (Auto) Cancelled Baso % (Auto) Cancelled Absolute Neuts (auto) Cancelled Absolute Lymphs (auto) Cancelled Total Counted Cancelled Neutrophils % (Manual) Cancelled Band Neutrophils % Cancelled Lymphocytes % (Manual) Cancelled Monocytes % (Manual) Cancelled Eosinophils % (Manual) Cancelled Basophils % (Manual) Cancelled Metamyelocytes % Cancelled Myelocytes % Cancelled Promyelocytes % Cancelled Blast Cells % Cancelled Plasma Cell % (Manual) Cancelled Other Cells % Cancelled Nucleated RBC % Cancelled Nucleated RBCs/100 WBC Cancelled Differential Comment Cancelled Diff Path Review Cancelled Hypersegmented Neuts Cancelled Atypical Lymphocytes Cancelled Reactive Lymphocytes Cancelled Smudge Cells Cancelled Toxic Granulation Cancelled Toxic Vacuolation Cancelled Dohle Bodies Cancelled Sai Rods Cancelled Platelet Estimate Cancelled Plt Morphology Comment Cancelled RBC Morphology Cancelled Cancelled Polychromasia Cancelled Hypochromasia Cancelled Basophilic Stippling Cancelled Anisocytosis Cancelled Microcytosis Cancelled Macrocytosis Cancelled Spherocytes Cancelled Sickle Cells Cancelled Target Cells Cancelled Tear Drop Cells Cancelled Ovalocytes Cancelled Stomatocytes Cancelled [place] Bodies Cancelled Gia Cells Cancelled Bite Cells Cancelled Crenated Cell Cancelled Acanthocytes (Spur) Cancelled Rouleaux Cancelled Schistocytes Cancelled Sodium 141 Potassium 3.5 Chloride 102 Carbon Dioxide 23.4 Anion Gap 16 H BUN 16 Creatinine 0.80 Est GFR (MDRD) Non-Af 78 BUN/Creatinine Ratio 19.4 Glucose 103 H Lactic Acid 1.3 Calcium 9.9 Total Bilirubin 0.49 AST 22 ALT 8 Alkaline Phosphatase 117 H Total Protein 7.3 Albumin 4.0 Globulin 3.2 Albumin/Globulin Ratio 1.2 Lipase 21 Urine Color Yellow Urine Clarity Clear Urine pH 6.0 Ur Specific [place] 1.025 Urine Protein 15 H Urine Glucose (UA) Normal Urine Ketones 15 H Urine Occult Blood 50 H Urine Nitrite Negative Urine Bilirubin Negative Urine Urobilinogen Normal Ur Leukocyte Esterase Negative Discharge Plan Triage Chief Complaint: Abd Pain ED Provider: Brady Marin Dx/Rx/DC Orders Clinical Impression: Clostridioides difficile infection Instructions: C Diff Infect, What Is C. Diff? Prescriptions: New vancomycin [Vancocin] 125 mg capsule 125 mg PO Q6H 10 Days Qty: 40 0RF No Action folic acid 1 mg Tablet 1 mg PO DAILYCM Qty: 0 0RF doxepin 25 mg Capsule 25 mg PO QHS 30 Days Qty: 30 0RF acetaminophen 500 mg Tablet 1,000 mg PO Q8 Qty: 0 0RF methotrexate sodium 2.5 mg Tablet 15 mg PO We@1000 Qty: 0 0RF ibuprofen [Advil] 200 mg tablet 400 mg PO Q6H PRN (Reason: pain) cholecalciferol (vitamin D3) 125 mcg (5,000 unit) capsule 250 mcg PO DAILY tramadol 50 mg tablet 50 mg PO 4X/DAY PRN PRN (Reason: pain) 4 Days Qty: 15 0RF Primary Care Provider: Patt Joy Referrals: Patt Joy DO [Primary Care Provider] - 3-5 Days Activity Restrictions/Additional Instructions: Stop taking your antibiotics prescribed by your primary care physician. Start taking the vancomycin. You received your first dose here in the emergency department. Follow-up with your primary care physician. Return back to the ED if symptoms change or worsen. Print Language: Marshallese Disposition Disposition: Home, Self Care
[2025-04-02 15:14] LABS: AST(SGOT) 22 U/L (<=31); Alanine Aminotransfer ALT/SGPT 8 U/L (<=34); Albumin, Serum 4.0 g/dL (3.4-4.8); Alkaline Phosphatase 117 U/L (35-104); Anion Gap 16 (5-15); BUN 16 mg/dL (4-19); BUN/Creat Ratio 19.4 RATIO (10-20); Calcium,Total 9.9 mg/dL (7.6-11.0); Carbon Dioxide 23.4 mmol/L (21.0-32.0); Chloride 102 mmol/L (98-108); Globulin 3.2 g/dL (2.2-4.2); Glucose 103 mg/dL (70-99); Lipase 21 U/L (13-75); Potassium 3.5 mmol/L (3.3-5.1)
[2025-04-02 15:24] LABS: Hematocrit 35.9 % (37-47); Hemoglobin 11.8 g/dL (12.0-15.0); Immature Granulocytes Count 0.060 X10^3/uL (0.0-0.0); Mean Corp Hgb Conc 32.9 g/dL (32-36); Mean Corpuscular Volume 90.7 fL (81-99); Mean Platelet Vol. 8.8 fl (6.2-12.0); NRBC Flagged by Analyzer 0 % (0-5); POSITIVE DIFFERENTIAL YES; POSITIVE MORPHOLOGY YES; Platelet Count 379 K/mm3 (150-450); RBC Distribution Width CV 13.3 % (11.6-14.6); RBC Distribution Width SD 43.8 fl (35.1-43.9); Red Blood Count 3.96 M/mm3 (4.2-5.4); White Blood Count 17.0 K/mm3 (4.4-11.0)
[2025-04-02 16:04] VITALS: BP 167/44; PULSE 95; RESP 18; O2SAT 98
[2025-04-02 16:06] LABS: Color, Urine Yellow (Yellow); Glucose, Dipstick Normal (Normal); Ketone-Dipstick 15 mg/dl (Negative); Leukocyte Esterase-Dipstick Negative /ul (Negative); Nitrite-Dipstick Negative (Negative); Occult Blood-Urine 50 /ul (Negative); Protein-Dipstick 15 mg/dl (Negative); Specific Gravity, Urine 1.025 (1.002-1.030); Urine Bilirubin Dipstick Negative (Negative)
[2025-04-02 16:16] VITALS: BMI 33.3
[2025-04-02 16:29] LABS: Mucous, Urine RARE /hpf (<or=2+)
[2025-04-02 16:30] LABS: Red Blood Cells-Urine 0-5 SEEN /hpf (0-5); Squamous Epithelial Cells - UA 0-5 SEEN /hpf (5-10)
[2025-04-02] MEDS: Vancomycin 125 MG/5 ML Susp PO.SYRINGE PO (17:01)
[2025-04-02 17:02] LABS: Differential Indicated SCAN CRITERIA MET
--- NOTE | 2025-04-02 17:34 | ED.RN ---
CT CALLED FOR PROLONGED READ TIME. RESPONSE THEY ARE READING IT RIGHT NOW
[2025-04-02 18:00] VITALS: BP 154/77; PULSE 80; RESP 18; TEMP 36.4; O2SAT 98
[2025-04-02 18:33] LABS: Differential Comment SCANNED
== END 2025-04-02 18:08 | disposition home or self-care (01) ==
PROVIDERS: Emergency Provider Surgery; PCP Internal Medicine; Visit Provider Surgery
DX: R10.9 Unspecified abdominal pain (principal); M06.9 Rheumatoid arthritis, unspecified; Z90.710 Acquired absence of both cervix and uterus; Z96.641 Presence of right artificial hip joint; Z90.49 Acquired absence of other specified parts of digestive tract; A04.72 Enterocolitis due to Clostridium difficile, not specified as recurrent; Z79.899 Other long term (current) drug therapy
CPT/HCPCS: 74177; 80053; 81001; 82274; 83605; 83690; 85025; 87177; 87209; 87493; 96360; 96361; 99283; Q9967; A4216

== ENCOUNTER → 2025-04-14 | Outpatient (CLI) | payer MEDICARE, SELFPAY ==
[2025-04-14 12:02] LABS: Hematocrit 35.9 % (37-47); Hemoglobin 11.8 g/dL (12.0-15.0); Immature Granulocytes Count 0.000 X10^3/uL (0.0-0.0); Mean Corp Hgb Conc 32.9 g/dL (32-36); Mean Corpuscular Volume 90.2 fL (81-99); Mean Platelet Vol. 9.4 fl (6.2-12.0); NRBC Flagged by Analyzer 0 % (0-5); Platelet Count 270 K/mm3 (150-450); RBC Distribution Width CV 13.4 % (11.6-14.6); RBC Distribution Width SD 44.2 fl (35.1-43.9); Red Blood Count 3.98 M/mm3 (4.2-5.4); White Blood Count 3.6 K/mm3 (4.4-11.0)
[2025-04-14 16:34] LABS: AST(SGOT) 22 U/L (<=31); Alanine Aminotransfer ALT/SGPT 12 U/L (<=34); Albumin, Serum 4.0 g/dL (3.4-4.8); Alkaline Phosphatase 98 U/L (35-104); Anion Gap 13 (5-15); BUN 18 mg/dL (4-19); BUN/Creat Ratio 21.0 RATIO (10-20); Calcium,Total 9.8 mg/dL (7.6-11.0); Carbon Dioxide 22.6 mmol/L (21.0-32.0); Chloride 102 mmol/L (98-108); Globulin 2.7 g/dL (2.2-4.2); Glucose 122 mg/dL (70-99); Potassium 3.9 mmol/L (3.3-5.1)
== END | disposition home or self-care (01) ==
LOC: MTLAB 10:50
PROVIDERS: PCP Internal Medicine; Referring Provider Internal Medicine Rheumatology; Visit Provider Internal Medicine Rheumatology
DX: M06.00 Rheumatoid arthritis without rheumatoid factor, unspecified site (principal); Z79.899 Other long term (current) drug therapy; M79.7 Fibromyalgia; M18.0 Bilateral primary osteoarthritis of first carpometacarpal joints; M17.0 Bilateral primary osteoarthritis of knee
CPT/HCPCS: 36415; 80053; 85025

== ENCOUNTER 2025-04-27 11:22 | Inpatient (IN) | payer MEDICARE, SELFPAY ==
[2025-04-27 11:24] VITALS: BP 133/63; PULSE 101; RESP 16; TEMP 36.7; O2SAT 99
--- NOTE | 2025-04-27 11:44 | CT_ITS ---
PROCEDURE: ABDOMEN/PELVIS W IV CONT ONLY 04/27/2025 REASON FOR EXAM: LLQ PAIN TECHNIQUE: ABDOMEN/PELVIS W IV CONT ONLY Coronal and Sagittal reconstruction series were provided. CONTRAST: Isovue 370 VOLUME: 100 mL One or more dose reduction techniques were used (e.g., Automated exposure control, adjustment of the mA and/or kV according to patient size, use of iterative reconstruction technique. RADIATION DOSE SUMMARY: CTDlvol: 40.32 mGy DLP: 1044.30 mGycm COMPARISON: 04/02/2025 FINDINGS: Lung bases: Chronic interstitial changes in the lung bases without a superimposed acute pulmonary process small hiatal hernia with thickening of the distal esophagus suggesting reflux esophagitis Liver: Stable appearance of a poorly defined, unenhanced hypoattenuated lesion in the left lobe of the liver. Stable intrahepatic biliary dilatation consistent with sequela from cholecystectomy. Stable subcentimeter simple cysts Gallbladder: Surgically absent. Spleen: Normal size. Pancreas: Normal size without evidence of mass surrounding inflammation or ductal dilation. Adrenals: Unremarkable Kidneys: No obstructive uropathy or suspicious solid renal lesion, stable parapelvic renal cysts Bladder: Incompletely distended Reproductive Organs: Surgically removed Bowel: Multiple bowel loops show submucosal thickening and edema consistent with diffuse enteritis/colitis this is of particular note in the distal terminal ileum and cecum as well as in the mid and distal sigmoid. There are scattered colonic diverticula without CT evidence of acute diverticulitis. Appendix: Not visualized Lymph nodes: No suspicious mesenteric or retroperitoneal lymph nodes Vasculature: Mild diffuse atherosclerotic calcifications are noted. Peritoneum / Retroperitoneum: No free fluid or air Bones: Multilevel degenerative changes with multiple chronic compression fractures noted throughout the visualized thoracic and lumbar spine replaced right hip joint free of complication CT/Abdomen/Pelvis W IV Cont ONLY IMPRESSION: Diffuse submucosal thickening and submucosal edema in multiple bowel loops part icularly of note in the terminal ileum and cecum and throughout the mid and distal sigmoid consistent with diffuse colitis/enter itis. No perforation or abscess Stable poorly defined nonenhancing hypoattenuated lesion within the left lobe o f the liver No free fluid, air, or suspicious adenopathy Extensive degenerative bony changes with multiple chronic compression fractures in the visualized thoracic and lumbar spine Reading Location: [id number]
--- NOTE | 2025-04-27 11:45 | EDS_ITS ---
HPI History of Present Illness Chief Complaint: Diarrhea Narrative Narrative: Patient is a 70-year-old female with past medical history of rheumatoid arthritis on methotrexate, iron deficiency anemia, gastric ulcer, hypertension, neuropathy, C. difficile who presents to the emergency department chief complaint diarrhea. Patient states that she believes that she may have C. difficile again. Patient states that she completed the course of antibiotics that she was prescribed. She states that she notes the last couple days she had diarrhea that has been progressively worsening. States that today she has some abdominal discomfort associated with it as well as a lot of dry heaving. Patient denies any blood in her stool. Patient denies any blood thinning medications. [facility] Medical History Postoperative anemia Wears glasses Wears dentures Loss of hearing Marijuana use Walker as ambulation aid PONV (postoperative nausea and vomiting) Shortness of breath on exertion Non-smoker Leg cramps History of edema Cochlear implant in place Tonsillectomy planned Hx of cataract Home Medications ?Medication ?Instructions ?Recorded ?Last Taken ?Type folic acid 1 mg tablet 1 mg PO DAILYCM Supplement # 0 tabs 08/05/24 01/12/25 Rx acetaminophen 500 mg tablet 1,000 mg (2 x 500 mg) PO Q 8 #0 tabs 08/19/24 01/11/25 Rx methotrexate sodium 2.5 mg tablet 15 mg (6 x 2.5 mg) P O We@1000 #0 08/19/24 01/08/25 Rx tabs cholecalciferol (vitamin D3) 125 250 mcg PO DAILY 01/0201/12/25 History mcg (5,000 unit) capsule tramadol 50 mg tablet 50 mg PO 4X/DAY PRN PRN pain 4 01/12/25 Unknown Rx days #15 tabs Allergy/AdvReac Type Severity Reaction Status Date / Time latex AdvReac Intermediate Rash Verified 04/27/25 11:26 Surgical History History of revision of total replacement of right hip joint History of hysterectomy History of carpal tunnel release of both wrists Hx of removal of cyst Hx of arthroscopy of right knee Hx of cholecystectomy Social History household members: spouse Smoking Status: Never smoker alcohol intake: never substance use type: does not use ROS ROS ED ROS Narrative Constitutional: Denies any fevers, chills, headaches Eyes: Denies double vision Cardiovascular: Denies chest pain Respiratory: Denies shortness of breath Abdomen: Complains of abdominal discomfort and diarrhea as noted above : Denies any urinary symptoms Neurological: Denies any numbness, weakness, tingling Musculoskeletal: Denies back pain Skin: Denies any rashes or lesions EXAM Physical Exam Narrative Exam Narrative: General: Patient is lying in bed rest comfortably did not appear to be acute distress Head: Atraumatic, normocephalic Eyes: PERRL bilaterally, EOMI bilateral, no conjunctival injection noted Neck: Soft, supple, trachea midline Cardiovascular: Patient tachycardic with a regular rhythm Respiratory: Clear to auscultation bilaterally Abdomen: Soft, nondistended, tender to palpation left lower quadrant no rebound or guarding on exam Extremities: +4/5 strength noted in the bilateral upper and lower extremities, radial pulses +2/4 in the bilateral extremities Neurological: Patient following commands knew that she was at [facility] year is 2024 Skin: Warm, dry, intact no rashes or lesions noted Const Vital Signs: 04/27/25 11:24 04/27/25 13:54 Temperature 98.1 F Temperature Source Oral Pulse Rate 101 H 91 Respiratory Rate 16 16 Blood Pressure 133/63 H 141/100 H Blood Pressure Mean 86 113 Pulse Ox 99 98 Oxygen Delivery Method Room Air Room Air MDM MDM MDM Narrative Medical decision making narrative: Patient is a 70-year-old female who presented to the emergency department for concern for C. difficile. On the differential diagnosis includes but not limited to diverticulitis, diverticulitis, viral gastroenteritis, C. difficile. Once the workup is obtained reviewed she will be reevaluated. Patient be given IV fluids, Zofran. Patient's CBC reviewed and showed no evidence of leukocytosis white blood count was 9.4, he was 13.2, platelet count 238. Patient sodium is 133, potassium 3.6, anion gap of 16 with a creatinine of 2.25 indicating acute kidney injury. Patient lactic acid elevated 2.2, patient CT ab pelvis IV contrast showed diffuse submucosal thickening and edema and multiple bowel loops particularly of note in the terminal ileum and cecum and throughout the mid and distal sigmoid consistent with diffuse colitis/enteritis no perforation or abscess. Stable poorly defined nonenhancing hypoattenuated lesion within the left lobe of the liver. At this point in time we will discuss case with hospitalist for admission for her C. difficile, DIMA, nausea and colitis enteritis. Discussed case with hospitalist Dr. Velazquez who accepted patient for admission. Patient notified as well as significant other at bedside they are agreeable this plan all question concerns answered Lab Data Labs: Laboratory Results - last 24 hr 04/27/25 12:27 WBC 9.4 RBC 4.38 Hgb 13.2 Hct 39.6 MCV 90.4 MCH 30.1 MCHC 33.3 RDW Std Deviation 48.4 H RDW Coeff of Oly 14.7 H Plt Count 238 MPV 9.7 Immature Gran % (Auto) 0.700 Neut % (Auto) 71.3 H Lymph % (Auto) 10.6 L [place] % (Auto) 16.1 H Eos % (Auto) 0.3 Baso % (Auto) 1.0 Absolute Neuts (auto) 6.7 Absolute Lymphs (auto) 1.00 Nucleated RBC % 0 Differential Comment Sodium 133 Potassium 3.6 Chloride 97 L Carbon Dioxide 20.6 L Anion Gap 16 H BUN 43 H Creatinine 2.25 H Est GFR (MDRD) Non-Af 23 L BUN/Creatinine Ratio 19.1 Glucose 104 H Lactic Acid 2.2 H* Calcium 9.8 Total Bilirubin 1.25 AST 19 ALT 20 Alkaline Phosphatase 89 Total Protein 7.1 Albumin 3.9 Globulin 3.2 Albumin/Globulin Ratio 1.2 Lipase 51 Radiography Diagnostic Testing: Clinical Impression(s) from Imaging Studies Abdomen/Pelvis CT 04/27/25 11:44 IMPRESSION: Diffuse submucosal thickening and submucosal edema in multiple bowel loops particularly of note in the terminal ileum and cecum and throughout the mid and distal sigmoid consistent with diffuse c olitis/enteritis. No perforation or abscess Stable poorly defined nonenhancing hypoattenuated lesion within the left lobe of the liver No free fluid, air, or suspicious adenopathy Extensive degenerative bony changes with multiple chronic compression fractures in the visualized thoracic and lumbar spine Reading Location: [facility] Discharge Plan Triage Chief Complaint: Diarrhea ED Provider: Abdiel Briones Dx/Rx/DC Orders Clinical Impression: Acute kidney injury, Colitis, C. difficile colitis, Diarrhea, Acidosis, lactic, Abdominal pain Prescriptions: No Action folic acid 1 mg Tablet 1 mg PO DAILYCM Qty: 0 0RF acetaminophen 500 mg Tablet 1,000 mg PO Q8 Qty: 0 0RF methotrexate sodium 2.5 mg Tablet 15 mg PO We@1000 Qty: 0 0RF cholecalciferol (vitamin D3) 125 mcg (5,000 unit) capsule 250 mcg PO DAILY tramadol 50 mg tablet 50 mg PO 4X/DAY PRN PRN (Reason: pain) 4 Days Qty: 15 0RF Primary Care Provider: Patt Joy Referrals: Patt Joy DO [Primary Care Provider] - Print Language: Guinean Disposition Disposition: Acute Care Hospital [facility]
--- OUTSIDE RECORDS SUMMARY | 2025-04-27 11:58 | XMS RPT_ITS | CCD ---
Author Organization [facility] CliniSyar Care Team Providers Care Sheet Metal Operator Name Role Phone Argenis Granados Tania Unavailable Argenis Granados Tania Unavailable Patt Jones Unavailable Franklyn Kamara Unavailable Nusrat Veronica Unavailable Benedict Morales Unavailable Gravius, Stephanie Unavailable Unavailable Messenger, Leighann Unavailable Unavailable Manchak, Vane Unavailable Unavailable Unavailable Unavailable Patt Jones Unavailable Franklyn Kamara Unavailable Nusrat Veronica Unavailable Benedict Morales Unavailable Gravius, Stephanie Unavailable Unavailable Messenger, Leighann Unavailable Unavailable Manchak, Vane Unavailable Unavailable Unavailable Unavailable Luisa Granadosica N Unavailable Gravius, Stephanie Unavailable Unavailable Messenger, Leighann Unavailable Unavailable Manchak, Vane Unavailable Unavailable Sakina Kelsey Unavailable Unavailable Sally Ellis Unavailable Unavailable Unavailable Andre Bernardo Unavailable Unavailable Deion Lainez Unavailable Conrad Beasley Unavailable Patt Jones DO Unavailable Conrad Beasley Unavailable Dr. Franklyn Kamara Unavailable Dr. Nusrat Veronica Unavailable Dr. Deion Lainez Unavailable Benedict Morales Unavailable Solomon RN, Leighann Unavailable Unavailable Az SIGNAL TIMER, Andre Unavailable Unavailable Cross SIGNAL TIMER, Sakina Unavailable Unavailable Gravius AFTERNOON BABYSITTER, Stephanie Unavailable Unavailable Ciesa EDGER AUTOMATIC, Ying Unavailable Manalliek AFTERNOON BABYSITTER, Vane Unavailable Unavailable Unavailable Unavailable Slarb SIGNAL TIMER, Kimberli Unavailable Unavailable BasaliMoy Unavailable Anh , Dr. Estes Unavailable SajanManisha france Unavailable Vania SIGNAL TIMER, Goldie Unavailable Unavailable Patt Jones DO Unavailable Dr. Patt Jones Primary Care Provider Dr. Patt Jones Referring Provider Dr. Negro Johnson Attending Provider Dr. Osmin Pierson Attending Provider Patt Jones DO Referring Unavailable Patt Jones DO Attending Unavailable Robert ELIZONDO, Patt Consulting Unavailable Dr. Patt Jones Primary Care Provider Dr. Jose Manuel Wagner Attending Provider Dr. Regi Bunch Referring Provider Dr. Patt Jones DO Primary Care Provider Fracisco ROSE, Dr. Holland Emergency Provider [phone] Mp ROSE, Dr. Lucas Admit Provider Mp ROSE, Dr. Lucas Attending Provider Mp ROSE, Dr. Lucas Other Provider Dr. Negro Johnson DO Other Provider Demetris ROSE, Dr. Mohini North Other Provider [phone] Mp ROSE, Dr. Lucas Referring Provider Mayda ELIZONDO, Dr. Pino Attending Provider Demetris ROSE, Dr. Mohini North Attending Provider Los ROSE, Dr. Leonard Attending Provider Los ROSE, Dr. Leonard Referring Provider Hernandez ROSE, Dr. Young Cortes Admit Provider Hernandez ROSE, Dr. Young Cortes Attending Provider Hernandez ROSE, Dr. Young Cortes Referring Provider Noe ROSE, Dr. Boyd Attending Provider Robert DO, Dr. Beltre Other Provider Yosef ROSE, Dr. Dyer Attending Provider Yosef ROSE, Dr. Dyer Referring Provider Robert ELIZONDO, Dr. Beltre Referring Provider Elizabeth ELIZONDO, Dr. Tom Attending Provider Kenna ROSE, Dr. Solorio Attending Provider Robert ELIZONDO, Dr. Beltre Primary Care Provider Robert ELIZONDO, Dr. Beltre Referring Provider Elizabeth ELIZONDO, Dr. Tom Attending Provider Kenna ROSE, Dr. Solorio Attending Provider Yosef ROSE, Dr. Dyer Attending Provider Yosef ROSE, Dr. Dyer Referring Provider Heather ROSE, Dr. Guallpa Emergency Provider Heather ROSE, Dr. Guallpa Attending Provider Robert ELIZONDO, Dr. Beltre Attending Provider Robert ELIZONDO, Dr. Beltre Primary Care Provider [phone] Robert ELIZONDO, Dr. Beltre Referring Provider Nerissa Wood Attending Provider Nerissa Wood Referring Provider Andrés Bocanegra Attending Provider Robert ELIZONDO, Dr. Beltre Primary Care Provider Yosef ROSE, Dr. Dyer Attending Provider Yosef ROSE, Dr. Dyer Referring Provider Tomas ELIZONDO, Dr. Abreu Emergency Provider Tomas ELIZONDO, Dr. Abreu Attending Provider Robert, Patt Primary Care Unavailable Borruso, Negro Referring Unavailable Borruso, Negro Attending Unavailable Mp, Lance Admitting Unavailable Robert, Patt Primary Care Unavailable Mp, Lance Consulting Unavailable Mp, Lance Attending Unavailable Borruso, Negro Consulting Unavailable Korlima Mohini Mary Anne Consulting Unavailable Borruso, Negro Admitting Unavailable Robert, Patt Primary Care Unavailable Borruso, Negro Referring Unavailable Borruso, Negro Attending Unavailable Hernandez, Young Chi Attending Unavailable Hernandez, Young Chi Admitting Unavailable Robert, Patt Primary Care Unavailable Robert, Patt Primary Care Unavailable Osmin Pierson Attending Unavailable Borruso, Negro Attending Unavailable Robert, Patt Primary Care Unavailable Robert, Patt Referring Unavailable Robert, Patt Primary Care Unavailable Borruso, Negro Attending Unavailable Robert, Patt Referring Unavailable Robert, Patt Primary Care Unavailable Borruso, Negro Attending Unavailable Robert, Patt Referring Unavailable Robert, Patt Primary Care Unavailable Vellanki, Manisha Referring Unavailable Vellanki, Manisha Attending Unavailable Borruso, Negro Consulting Unavailable Robert, Patt Primary Care Unavailable Robert, Patt Attending Unavailable Robert, Patt Referring Unavailable Robert, Patt Primary Care Unavailable Ramu Romero Attending Unavailable Robert, Patt Primary Care Unavailable Brady Marin Attending Unavailabl e Robert, Patt Primary Care Unavailable Robert, Patt Referring Unavailable Robert, Patt Attending Unavailable Robert, Patt Primary Care Unavailable Borruso, Negro Referring Unavailable Borruso, Negro Attending Unavailable Robert, Patt Primary Care Unavailable Robert, Patt Consulting Unavailable Vellanki, Manisha Referring Unavailable Sajanlanki, Manisha Attending Unavailable Hernandez, Young Chi Attending Unavailable Robert, Patt Primary Care Unavailable Hernandez, Young Chi Referring Unavailable Borruso, Negro Admitting Unavailable Borruso, Negro Consulting Unavailable Borruso, Negro Referring Unavailable Borruso, Negro Attending Unavailable Robert, Patt Primary Care Unavailable Borruso, Negro Admitting Unavailable Borruso, Negro Consulting Unavailable Robert, Patt Primary Care Unavailable Borruso, Negro Referring Unavailable Borruso, Negro Attending Unavailable [facility], Lance Admitting Unavailable Koram, Mohini Mary Anne Attending Unavailable Robert, Patt Primary Care Unavailable [facility], Lance Consulting Unavailable Borruso, Negro Consulting Unavailable Koram, Mohini Mary Anne Consulting Unavailable Alvarez Ohara Attending Unavailable [facility], Lance Referring Unavailable Jagdish Meadows Attending Unavailable Robert, Patt Primary Care Unavailable [facility], Lance Referring Unavailable Alvarez Ohara Attending Unavailable Robert, Patt Primary Care Unavailable [facility], Lance Referring Unavailable Oliver Liu Attending Unavailable Hernandez, Young Chi Referring Unavailable Robert, Patt Primary Care Unavailable Robert, Patt Primary Care Unavailable Kenna, Mahnomen Attending Unavailable Robert, Patt Primary Care Unavailable Kenna, Osmin Attending Unavailable Robert, Patt Primary Care Unavailable Borruso, Engro Attending Unavailable Robert, Patt Referring Unavailable Robert, Patt Primary Care Unavailable Kenna, Mahnomen Attending Unavailable Robert, Patt Primary Care Unavailable Kenna, Mahnomen Attending Unavailable Robert, Patt Primary Care Unavailable Robert, Patt Referring Unavailable Andrés Bocanegra Attending Unavailable Lesterruso, Negro Attending Unavailable [facility], Lance Attending Unavailable Borruso, Negro Attending Unavailable Robert, Patt Primary Care Unavailable Robert, Patt Referring Unavailable Robert, Patt Primary Care Unavailable Nerissa Valenzuela Attending Unavailabl e Robert, Patt Referring Unavailable Robert, Patt Primary Care Unavailable Nerissa Valenzuela Referring Unavailabl Nerissa Esparza Attending Unavailabl e Robert, Patt Primary Care Unavailable Robert, Patt Referring Unavailable Robert, Patt Attending Unavailable Robert, Patt Primary Care Unavailable Manisha Navas Attending Unavailable Manisha Navas Referring Unavailable Robert, Patt Primary Care Unavailable Manisha Navas Attending Unavailable Vellanki, Manisha Referring Unavailable Los, Aisha Referring Unavailable Los, Aisha Attending Unavailable Robert, Patt Primary Care Unavailable Robert, Patt Primary Care Unavailable Yosef, Manisha Attending Unavailable Vellanarlen, Manisha Referring Unavailable Robert, Patt Primary Care Unavailable Robert, Patt Attending Unavailable Robert, Patt Referring Unavailable Robert, Patt Primary Care Unavailable Negro Johnson Referring Unavailable Negro Johnson Attending Unavailable Allergies Allergy Classification Reported Allergen(s) Allergy Type Date of Onset Reaction(s) Facility (9 sources) Latex Propensity to adverse reactions 5 [facility] Comment on above: latex tape- gave tanmay h with knee replacement (1 source) Latex Drug allergy (disorder) [address] [place] [address] Repository NEGATED: Highlighted row has been ruled out! (1 source) allergy to substance 6 [facility] Work Phone: NEGATED: Highlighted row has been ruled out! (1 source) drug allergy [facility] Work Phone: NEGATED: Highlighted row has been ruled out! (1 source) allergy to substance 6 [facility] Work Phone: NEGATED: Highlighted row has been ruled out! (1 source) drug allergy [facility] Work Phone: Medications Current Medications Medication Drug Class(es) Dates Sig (Normalized) Sig (Original) acetaminophen 500 mg oral tablet (20 sources) Start: 08-05-2024 End: 08-19-2024 take 2 tablets by mouth every eight hours Acetaminophen 500 mg Tablet Active 1000 mg PO EVERY 8 HOURS 0 0 August 19, 2024 1:00am Start: 07-18-2024 End: 08-05-2024 take 2 tablets by mouth every six hours Acetaminophen 500 mg tablet Discontinued 1000 mg PO EVERY 6 HOURS 100 0 July 18, 2024 1:00am August 05, 2024 1:09pm Start: 03-09-2020 End: 10-28-2020 take 1-2 tablets by mouth every six hours as needed for pain Acetaminophen (Tylenol Extra Strength) 500 mg tablet Discontinued 500 mg PO EVERY 6 HOURS as needed for pain 100 0 March 09, 2020 12:00am October 28, 2020 12:09pm 1-2 tabs every 6 hrs as needed for pain cholecalciferol 0.125 mg oral capsule (20 sources) Vitamin D Start: 01-12-2025 take 1 capsule by mouth once daily Cholecalciferol (Vitamin D3) 125 mcg (5,000 unit) capsule Active 250 ug PO DAILY January 12, 2025 12:00am Start: 07-01-2011 End: 06-15-2012 take 1 capsule by mouth every week VITAMIN D3, [id number] (Oral Capsule) 1 Capsule 2 xweek for 0 days Quantity: 8 {Capsule} Refills: 3 Ordered: 15-Jun-2012 Leighann Carbajal RN Start : 01-Jul-2011 End : 15-Jun-2012 Inactive Cholecalciferol (Vitamin D3) (Vitamin D3) 5,000 UNIT capsule (20 sources) Start: 02-12-2020 take 2 tablets by mouth once daily Cholecalciferol (Vitamin D3) (Vitamin D3) 5,000 UNIT capsule Active 2 TABLET PO DAILY February 12, 2020 9:48am Start: 02-12-2020 End: 01-12-2025 Cholecalciferol (Vitamin D3) (Vitamin D3) 5,000 UNIT capsule Discontinued 2 {tbl} PO DAILY February 12, 2020 12:00am January 12, 2025 3:12pm SUPPLEMENT Start: 02-12-2020 End: 01-12-2025 Cholecalciferol (Vitamin D3) (Vitamin D3) 5,000 UNIT capsule Discontinued 2 {tbl} PO DAILY February 12, 2020 12:00am January 12, 2025 3:12pm Start: 02-12-2020 Cholecalcifero l (Vitamin D3) (Vitamin D3) 5,000 UNIT capsule Active 2 {tbl} PO DAILY February 12, 2020 12:00am Start: 02-12-2020 take 2 tablets by mo uth once daily Cholecalciferol (Vitamin D3) (Vitamin D3) 5,000 UNIT capsule Active 2 TABLET PO DAILY February 11, 2020 11:00pm Start: 02-12-2020 take 2 tablets by mo uth once daily Cholecalciferol (Vitamin D3) (Vitamin D3) 5,000 UNIT capsule Active 2 TABLET PO DAILY February 12, 2020 12:00am doxepin hydrochloride 25 mg oral capsule (9 sources) Tricyclic Antidepressant Start: 08-19-2024 take 1 capsule by mouth at bedtime Doxepin 25 mg Capsule Active 25 mg PO AT BEDTIME 30 30 0 August 19, 2024 1:00am folic acid 1 mg oral tablet (20 sources) Start: 08-05-2024 take 1 tablet by mouth once daily at mealtime Folic Acid 1 mg Tablet Active 1 mg PO DAILY WITH MEALS 0 0 August 05, 2024 1:00am Supplement Start: 04-18-2023 End: 07-26-2024 take 1 tablet by mouth once daily Folic Acid 1 mg tablet Discontinued 1 mg PO DAILY April 18, 2023 12:00am July 26, 2024 11:14am SUPPLEMENT Start: 11-01-2014 End: 01-22-2020 take 2 mg by mouth once daily Folic Acid Discontinued 2 MG PO DAILY@08November 01, 2014 1:00am January 22, 2020 10:40am Start: 01-17-2013 End: 01-22-2020 take 2 tablets by mouth once daily Folic Acid 1 MG tablet Discontinued 2 mg PO DAILY@799November 01, 2014 1:00am January 22, 2020 10:40am ibuprofen 200 mg oral tablet (8 sources) Nonsteroidal Anti-inflammatory Drug Start: 01-12-2025 take 2 tablets by mouth every six hours as needed for pain Ibuprofen (Advil) 200 mg tablet Active 400 mg PO EVERY 6 HOURS as needed for pain January 12, 2025 12:00am methotrexate 2.5 mg oral tablet (20 sources) Folate Analog Metabolic Inhibitor Start: 05-01-2024 End: 08-19-2024 Methotrexate Sodium 2.5 mg Tablet Active 15 mg PO We@1000 0 0 August 19, 2024 1:00am Start: 11-02-2015 End: 01-21-2016 take 6 tablets by mouth every week METHOTREXATE, 2.5MG (Oral Tablet) 6 Tablet q week for 0 days Quantity: 30 {Tablet} Refills: 0 Ordered: 21-Jan-2016 Vane Fall CMA Start : 02-Nov-2015 End : 21-Jan-2016 Inactive Comments: Dr. Navas Comment on above: Dr. Navas traMADol hydrochloride 50 mg oral tablet (20 sources) Opioid Agonist Start: 01-12-2025 End: 01-12-2025 take 1 tablet by mouth four times daily as needed for pain Tramadol 50 mg tablet Active 50 mg PO 4 TIMES DAILY NEEDED as needed for pain 15 4 0 January 12, 2025 4:12pm Strain of abdominal wall Strain of muscle, fascia and tendon of abdomen, initial encounter Start: 01-19-2022 End: 07-18-2024 take 1 tablet by mouth every six hours as needed for pain Tramadol 50 mg tablet Discontinued 50 mg PO EVERY 6 HOURS as needed for pain January 19, 2022 12:00am July 18, 2024 10:16am Start: 11-02-2015 End: 05-01-2020 take 1 tablet by mouth once daily at bedtime traMADol HCl 50 MG Oral Tablet 1 Tablet qhs for 0 days Quantity: 30 {Tablet} Refills: 0 Ordered: 01-May-2020 Sakina Kelsey LPN Start : 02-Nov-2015 End : 01-May-2020 Inactive Comments: thirty Start: 11-01-2014 End: 02-27-2020 take 1 tablet by mouth every six hours as needed for pain Tramadol 50 MG tablet Discontinued 50 mg PO EVERY 6 HOURS NEEDED as needed for Pain November 01, 2014 1:00am February 27, 2020 11:52am Start: 12-19-2012 End: 11-02-2015 take 1 tablet by mouth three times daily as needed ULTRAM, 50MG (Oral Tablet) 1 Tablet tid prn for 0 days Quantity: 90 {Tablet} Refills: 0 Ordered: 02-Nov-2015 Leighann Carbajal RN Start : 19-Dec-2012 End : 02-Nov-2015 Inactive Comments: Dr. Navas Comment on above: thirty Dr. Yosef Ledezma (20 sources) Start: 11-19-2020 take 1 tablet by mouth once daily Tumeric Active 1 TABLET PO DAILY November 19, 2020 6:54am Start: 11-19-2020 End: 01-19-2022 Tumeric Discontinued 1 {tbl} PO DAILY November 19, 2020 12:00am January 19, 2022 1:59pm Start: 11-19-2020 End: 01-19-2022 take 1 tablet by mouth once daily Tumeric Discontinued 1 TABLET PO DAILY November 18, 2020 11:00pm January 19, 2022 12:59pm Start: 11-19-2020 End: 01-19-2022 take 1 tablet by mouth once daily Tumeric Discontinued 1 TABLET PO DAILY November 19, 2020 12:00am January 19, 2022 1:59pm vancomycin 125 mg oral capsule (2 sources) Glycopeptide Antibacterial Start: 04-02-2025 take 1 capsule by mouth every six hours Vancomycin (Vancocin) 125 mg capsule Active 125 mg PO EVERY 6 HOURS 40 10 0 April 02, 2025 12:00am Completed/Discontinued Medications Medication Drug Class(es) Dates Sig (Normalized) Sig (Original) Medical Marijuana (Informational Use Only-Pt Uses Medical Marijuana edible (8 sources) Start: 01-12-2025 End: 03-10-2025 Medical Marijuana (Informational Use Only-Pt Uses Medical Marijuana edible Discontinued 0 .Route January 12, 2025 12:00am March 10, 2025 11:17am TINGLING IN HANDS PT HAD A GUMMY LAST NIGHT Start: 01-12-2025 Medical Mar ijuana (Informational Use Only-Pt Uses Medical Marijuana edible Active 0 .ROUTE January 12, 2025 12:00am PT HAD A GUMMY LAST NIGHT acetaminophen 325 mg / HYDROcodone bitartrate 5 mg oral tablet (20 sources) Opioid Agonist Start: 11-21-2022 End: 05-01-2024 Hydrocodone-Acetaminophen 5- 325 mg tablet Discontinued 1 {tbl} PO EVERY 4 HOURS NEEDED as needed for Pain 14 4 0 November 21, 2022 May 01, 2024 11:32am Acute right ankle pain Arthritis Pain in right ankle and joints of right foot Unspecified osteoarthritis, unspecified site Start: 11-21-2022 take 1 tablet by grabiel th every four hours as needed Hydrocodone-Acetaminophen Active 1 TABLE T PO EVERY 4 HOURS NEEDED 14 4 November 21, 2022 Start: 11-19-2020 End: 11-22-2020 Hydrocodone-Acetaminophen 1 TABLET tablet Discontinued 1 NMA PO EVERY 6 HOURS NEEDED as needed for Pain 12 3 0 November 19, 2020 November 21, 2020 12:00am November 22, 2020 12:03am Sciatic nerve pain Sciatica, unspecified side Start: 11-19-2020 End: 11-22-2020 take 1 tablet by mouth every six hours as needed Hydrocodone-Acetaminophen Discontinued 1 TAB PO EVERY 6 HOURS NEEDED 12 3 November 19, 2020 November 22, 2020 12:03am acetaminophen 325 mg / oxyCODONE hydrochloride 5 mg oral tablet (20 sources) Opioid Agonist Start: 08-25-2015 End: 01-22-2020 Oxycodone-Acetaminophen 1 TABLET tablet Discontinued 1 {tbl} PO EVERY 6 HOURS NEEDED as needed for Pain 15 0 August 25, 2015 1:00am January 22, 2020 10:40am Start: 08-25-2015 End: 01-22-2020 take 1 tablet by mouth every six hours as needed Oxycodone-Acetaminophen Discontinued 1 TABLET PO EVERY 6 HOURS NEEDED August 25, 2015 1:00am January 22, 2020 10:40am alendronic acid 35 mg oral tablet (20 sources) Bisphosphonate Start: 01-08-2009 End: 08-02-2010 take 1 tablet by mouth every week FOSAMAX, 35MG (Oral Tablet) 1 (one) Tablet qweek for 0 days Quantity: 4 {Tablet} Refills: 4 Ordered: 02-Aug-2010 Leighann Carbajal RN Start : 08-Jan-2009 End : 02-Aug-2010 Inactive apixaban 2.5 mg oral tablet (9 sources) Factor Xa Inhibitor Start: 07-18-2024 End: 08-19-2024 take 1 tablet by mouth twice daily Apixaban (Eliquis) 2.5 mg tablet Discontinued 2.5 mg PO TWICE A DAY 42 0 July 18, 2024 1:00am August 19, 2024 7:33pm Anticoagulant apple cider vinegar 600 mg oral capsule (20 sources) Start: 10-28-2020 End: 01-19-2022 Apple Cider Vinegar 600 mg capsule Discontinued mg PO October 28, 2020 1:00am January 19, 2022 1:57pm Start: 10-28-2020 End: 01-19-2022 Apple Cider Vinegar Disconti nued MG PO October 28, 2020 1:00am January 19, 2022 1:57pm ascorbic acid 500 mg oral tablet (9 sources) Vitamin C Start: 08-19-2024 End: 01-12-2025 Ascorbic Acid (Vitamin C) 500 mg Tablet Discontinued 500 mg PO 1000 0 0 August 19, 2024 1:00am January 12, 2025 3:09pm ATELVIA, 35MG (Oral Tablet Delayed Release) (1 source) Start: 07-01-2011 End: 06-15-2012 ATELVIA, 35MG (Oral Tablet Delayed Release) [address] qweek for 0 days Quantity: 4 {Tablet_DR} Refills: 4 Ordered: 15-Jun-2012 Leighann Carbajal LPN Start : 01-Jul-2011 End : 15-Jun-2012 Inactive Comments: pt used to be on fosamax -- noncompliant with restrictions on how to take -- and gi side effects as well Comment on above: pt used to be on fos amax -- noncompliant with restrictions on how to take -- and gi side effects as well azithromycin 250 mg oral tablet (20 sources) Macrolide Antimicrobial Start: 12-19-2012 End: 01-17-2013 ZITHROMAX Z-YVON, 250MG (Oral Tablet) 1 Tablet TAD for 0 days Quantity: 1 {Package(s)} Refills: 0 Ordered: 17-Jan-2013 Leighann Carbajal RN Start : 19-Dec-2012 End : 17-Jan-2013 Inactive budesonide 0.032 mg/actuat metered dose nasal spray (20 sources) Corticosteroid Start: 10-22-2007 End: 01-24-2008 RHINOCORT AQUA, 32MCG/ACT (Nasal Suspension) 2 (two) Suspension qd for 0 days Refills: 0 Ordered: 22-Oct-2007 Leighann Carbajal RN Start : 22-Oct-2007 End : 24-Jan-2008 Inactive calcium carbonate 1250 mg oral tablet (20 sources) Start: 10-28-2020 End: 01-19-2022 take 1 tablet by mouth once daily Calcium Carbonate (Calcium 500) 500 mg calcium (1,250 mg) tablet Discontinued 500 mg PO DAILY October 28, 2020 1:00am January 19, 2022 1:57pm CBD GUMMY 8 mg (9 sources) Start: 07-03-2024 End: 07-26-2024 CBD GUMMY 8 mg Discontinued 8 mg PO AT BEDTIME July 03, 2024 12:00am July 26, 2024 11:14am ARTHRITIS/TINGLING IN HANDS AND FEET On Hold: until off of narcotics Start: 07-03-2024 End: 07-26-2024 CBD GUMMY 8 mg Discontinued 8 mg PO AT BEDTIME July 03, 2024 12:00am July 26, 2024 11:14am On Hold: until off of narcotics cephalexin 500 mg oral capsule (20 sources) Cephalosporin Antibacterial Start: 08-19-2024 End: 09-11-2024 take 1 capsule by mouth every six hours Cephalexin 500 mg Capsule Discontinued 500 mg PO EVERY 6 HOURS 8 2 0 August 19, 2024 1:00am September 11, 2024 12:00pm Start: 06-03-2023 End: 05-01-2024 take 1 capsule by mouth every six hours Cephalexin 500 mg capsule Discontinued 500 mg PO EVERY 6 HOURS 40 0 June 03, 2023 12:00am May 01, 2024 11:32am Start: 08-25-2015 End: 01-22-2020 take 1 capsule by mouth twice daily Cephalexin 500 MG capsule Discontinued 500 mg PO TWICE A DAY 8 0 August 25, 2015 1:00am January 22, 2020 10:39am cetirizine hydrochloride 10 mg oral capsule (20 sources) Histamine-1 Receptor Antagonist Start: 12-19-2012 End: 01-17-2013 take 1 capsule by mouth once daily ZYRTEC ALLERGY, 10MG (Oral Capsule) 1 Capsule daily for 30 days Refills: 0 Ordered: 17-Jan-2013 Leighann Carbajal RN Start : 19-Dec-2012 End : 17-Jan-2013 Inactive clarithromycin 500 mg oral tablet (20 sources) Macrolide Antimicrobial Start: 10-22-2007 End: 01-24-2008 take 1 tablet by mouth twice daily BIAXIN, 500MG (Oral Tablet) 1 (one) Tablet bid for 0 days Quantity: 20 {Tablet} Refills: 0 Ordered: 22-Oct-2007 Leighann Carbajal RN Start : 22-Oct-2007 End : 24-Jan-2008 Inactive colistin 3 mg/ml / hydrocortisone 10 mg/ml / neomycin 3.3 mg/ml / thonzonium bromide 0.5 mg/ml otic suspension (20 sources) Aminoglycoside Antibacterial, Corticosteroid Start: 07-12-2020 End: 10-28-2020 Ndyflenc-Fdboyr-Ep- Thonzonium 10 ML drops,suspension Discontinued 10 mL OT THREE TIMES A DAY 1 0 July 12, 2020 1:00am October 28, 2020 12:09pm cyclobenzaprine hydrochloride 10 mg oral tablet (20 sources) Muscle Relaxant Start: 12-11-2020 End: 03-11-2021 take 1 tablet by mouth every twelve hours as needed Cyclobenzaprine HCl 10 MG Oral Tablet 1 (one) Tablet q 12hr prn for 0 days Quantity: 30 {Tablet} Refills: 0 Ordered: 11-Mar-2021 Sakina Kelsey LPN Start : 11-Dec-2020 End : 11-Mar-2021 Discontinued Start: 12-04-2020 take 1 tablet by grabiel th every twelve hours as needed Cyclobenzaprine HCl 10 MG Oral Tablet 1 (one) Tablet q 12hr prn for 0 days Quantity: 30 {Tablet} Refills: 0 Ordered: 04-Dec-2020 Eloisaro CESIASally Start : 04-Dec-2020 Active 1 ml denosumab 60 mg/ml prefilled syringe (20 sources) RANK Ligand Inhibitor Start: 03-26-2021 Prolia 6 0 MG/ML Subcutaneous Solution Prefilled Syringe 1 (one) Milliliter one injection every 6 months for 0 days Quantity: 1 {Box} Refills: 1 Ordered: 26-Mar-2021 Patt Jones DO, DO, Kathleen Start : 26-Mar-2021 Active Comments: M81.0 Start: 02-12-2020 End: 11-20-2020 Prolia 60 MG/ML Subcutaneous Solution Prefilled Syringe 1 (one) Milliliter one injection every 6 months for 0 days Quantity: 1 {Box} Refills: 1 Ordered: 20-Nov-2020 Sakina Kelsey LPN Start : 01-May-2020 End : 20-Nov-2020 Discontinued Comments: M81.0 Start: 10-05-2018 Prolia 60 MG/M L Subcutaneous Solution 1 (one) Milliliter one injection every 6 months for 0 days Quantity: 1 {Box} Refills: 1 Ordered: 05-Oct-2018 Stephanie Duke Start : 05-Oct-2018 Active Comments: M81.0 Comment on above: M81.0 diazePAM 2 mg oral tablet (20 sources) Benzodiazepine Start: 03-22-20 End: 10-28-19 21 take 1 tablet by mouth three times daily as needed Diazepam 2 MG tablet Discontinued 2 mg PO 3 TIMES DAILY NEEDED as needed for Vertigo 20 0 March 22, 2020 12:00October 28, 2020 12:10pm docusate sodium 50 mg / sennosides, skilled nursing 8.6 mg oral tablet (18 sources) Start: 08-05-20 End: 11-05-19 Sennosides-Docusate Sodium (Stimulant Laxative Plus) 8.6-50 mg Tablet Discontinued 2 {tbl} PO TWICE A DAY as needed for Constipation 120 30 0 August 19, 2024 1:00am November 04, 2024 4:25pm doxycycline monohydrate 100 mg oral capsule (9 sources) Tetracycline-class Drug Start: 08-19-20 End: 11-05-19 take 1 capsule by mouth twice daily Doxycycline Monohydrate 100 mg Capsule Discontinued 100 mg PO TWICE A DAY 4 2 0 August 19, 2024 1:00am November 04, 2024 4:24pm DULoxetine 30 mg delayed release oral capsule (20 sources) Serotonin and Norepinephrine Reuptake Inhibitor Start: 02-16-20 CYMBALTA 30 MG [facility] DULOXETINE HCL [id number] Jagdish Mendoza Start: 11-02-2015 End: 01-21-2016 CYMBALTA, 30MG (Oral Capsule Delayed Release Particles) 1 (one) Capsule DR Part qd for 0 days Quantity: 90 {Capsule} Refills: 0 Ordered: 21-Jan-2016 Vane Fall CMA Start : 02-Nov-2015 End : 21-Jan-2016 Inactive Start: 11-02-2015 End: 01-21-2016 take 1 capsule by mouth once daily CYMBALTA, 30MG (Oral Capsule Delayed Release Particles) 1 (one) Capsule DR Part qd for 0 days Quantity: 90 {Capsule} Refills: 0 Ordered: 21-Jan-2016 Vane Fall Start : 02-Nov-2015 End : 21-Jan-2016 Inactive ergocalciferol 1.25 mg oral capsule (20 sources) Provitamin D2 Compound Start: 08-19-2015 End: 01-22-2020 Ergocalciferol (Vitamin D2) 50,000 UNIT capsule Discontinued [id number] U PO Q7D August 19, 2015 1:00am January 22, 2020 10:40am esomeprazole 20 mg / naproxen 500 mg delayed release oral tablet (20 sources) Proton Pump Inhibitor, Nonsteroidal Anti-inflammatory Drug Start: 06-15-2012 End: 12-19-2012 VIMOVO, 500-20MG (Oral Tablet Delayed Release) [address] qd for 30 days Refills: 0 Ordered: 19-Dec-2012 Vane Fall CMA Start : 15-Jun-2012 End : 19-Dec-2012 Inactive 24 hr etodolac 400 mg extended release oral tablet (20 sources) Nonsteroidal Anti-inflammatory Drug Start: 08-02-2010 End: 09-28-2010 take 2 tablets by mouth once daily at mealtime ETODOLAC CR, 400MG (Oral Tablet Extended Release 24 Hour) 2 (two) Tablet ER 24HR qd for 0 days Quantity: 30 {Tablet_ER_24HR} Refills: 0 Ordered: 28-Sep-2010 Leighann Carbajal RN Start : 02-Aug-2010 End : 28-Sep-2010 Inactive Comments: take with food Comment on above: take with food ferrous sulfate 325 mg oral tablet (9 sources) Start: 08-05-2024 End: 08-19-2024 take 1 tablet by mouth every other day Ferrous Sulfate 325 mg (65 mg iron) tablet Discontinued 325 mg PO EVERY OTHER DAY 30 August 05, 2024 1:00am August 19, 2024 7:33pm Supplement 12 hr fexofenadine hydrochloride 60 mg / pseudoephedrine hydrochloride 120 mg extended release oral tablet (20 sources) alpha-Adrenergic Agonist, Histamine-1 Receptor Antagonist Start: 12-29-2010 End: 05-25-2011 RADHAMES-D 12 HOUR, 60-120MG (Oral Tablet Extended Release 12 Hour) 1 Tablet ER 12HR q12 for 0 days Quantity: 14 {Tablet_ER_12HR} Refills: 0 Ordered: 29-Dec-2010 Leighann Carbajal RN Start : 29-Dec-2010 End : 25-May-2011 Discontinued Comments: This order discontinued per [facility]. Comment on above: This order discontin ued per [facility]. fluticasone propionate 0.05 mg/actuat metered dose nasal spray (20 sources) Corticosteroid Start: 12-29-2010 End: 05-25-2011 FLONASE, 50MCG/ACT (Nasal Suspension) 2 (two) Puff(s) daily for 0 days Quantity: 1 {Suspension} Refills: 0 Ordered: 25-May-2011 Leighann Carbajal RN Start : 29-Dec-2010 End : 25-May-2011 Inactive gabapentin 300 mg oral capsule (20 sources) Anti-epileptic Agent Start: 08-19-2024 End: 01-12-2025 take 1 capsule by mouth twice daily at mealtime Gabapentin 300 mg Capsule Discontinued 300 mg PO TWICE DAILY WITH MEALS 0 0 August 19, 2024 1:00am January 12, 2025 3:10pm Start: 04-18-2023 End: 05-01-2024 take 1 capsule by mouth at bedtime Gabapentin 100 mg capsule Discontinued 100 mg PO . April 18, 2023 12:00am May 01, 2024 11:33am Start: 09-28-2022 gabapentin 100 mg oral capsule 3 (three) Capsule at night for 0 days Quantity: 90 {Capsule} Refills: 0 Ordered: 28-Sep-2022 Patt Jones DO, DO, Kathleen Start : 28-Sep-2022 Active Comments: hermila Start: 08-24-2022 gabapentin 100 mg oral capsule 3 (three) Capsule at night for 0 days Quantity: 90 {Capsule} Refills: 0 Ordered: 24-Aug-2022 Patt Jones DO, DO, Kathleen Start : 24-Aug-2022 Active Comments: hermila Start: 06-22-2022 Gabapentin 100 MG Oral Capsule 3 (three) Capsule at night for 0 days Quantity: 90 {Capsule} Refills: 0 Ordered: 25-Jul-2022 Patt Jones DO, DO, Kathleen Start : 25-Jul-2022 Active Comments: hermila Start: 05-16-2022 Gabapentin 100 MG Oral Capsule 3 (three) Capsule at night for 0 days Quantity: 90 {Capsule} Refills: 0 Ordered: 16-May-2022 Patt Jones DO, DO, Kathleen Start : 16-May-2022 Active Comments: hermila Start: 03-16-2022 Gabapentin 100 MG Oral Capsule 3 (three) Capsule at night for 0 days Quantity: 90 {Capsule} Refills: 0 Ordered: 16-Mar-2022 Start : 16-Mar-2022 Active Comments: hermila Start: 01-28-2022 take 1 capsule by mo uth once daily at bedtime, then take 2 capsules by mouth once daily at bedtime, then take 3 capsules by mouth once daily at bedtime Gabapentin 100 MG Oral Capsule 1 (one) Capsule uad for 0 days Quantity: 90 {Capsule} Refills: 0 Ordered: 28-Jan-2022 Robert ELIZONDO Patt Jones DO Patt Start : 28-Jan-2022 Active Comments: 1 cap qhs x 5 days. If needed, can increase to 2 cap qhs x 5 days. If needed again, can increase to 3 caps [facility] Start: 12-11-2020 End: 03-26-2021 take 1 capsule by mouth three times daily Gabapentin 300 MG Oral Capsule 1 (one) Capsule tid for 0 days Quantity: 90 {Capsule} Refills: 0 Ordered: 26-Mar-2021 Stephanie Duke CMA Start : 11-Dec-2020 End : 26-Mar-2021 Inactive Comments: nerve pain oarrs rundose change Start: 11-30-2020 take 1 capsule by mo [facility] twice daily Gabapentin 300 MG Oral Capsule 1 (one) Capsule BID for 0 days Quantity: 60 {Capsule} Refills: 0 Ordered: 30-Nov-2020 Sally Ellis CNP Start : 30-Nov-2020 Active Comments: nerve pain oarrs run Start: 11-20-2020 Gabapentin 300 MG Oral Capsule 1 (one) Capsule qhs x 5 days then increase to bid if needed for 0 days Quantity: 60 {Capsule} Refills: 0 Ordered: 20-Nov-2020 Sally Ellis CNP Start : 20-Nov-2020 Active Comments: nerve pain oarrs run Comment on above: nerve pain oarrs run nerve pain oarrs run dose change 1 cap qhs x 5 days. If needed, can increase to 2 cap qhs x 5 days. If needed again, can increase to 3 caps qhs [facility]22 ninety hydroxychloroquine sulfate 200 mg oral tablet (20 sources) Antimalarial, Antirheumatic Agent Start: 2015 End: 2015 take 2 tablets by mouth once daily PLAQUENIL, 200MG (Oral Tablet) 2 (two) Tablet qd for 0 days Quantity: 60 {Tablet} Refills: 0 Ordered: 21-Jan-2016 Vane Fall CMA Start : 02-Nov-2015 End : 21-Jan-2016 Inactive lisinopril 10 mg oral tablet (9 sources) Angiotensin Converting Enzyme Inhibitor Start: 2023 End: 2023 Lisinopril 10 mg Tablet Discontinued 10 mg PO TWICE A DAY 0 0 August 05, 2024 1:00am August 19, 2024 7:34pm BP Hold for SBP less than 130 mmHg losartan potassium 100 mg oral tablet (9 sources) Angiotensin 2 Receptor [place]lin Start: 2023 End: 2024 take 1 tablet by mouth once daily Losartan 100 mg Tablet Discontinued 100 mg PO DAILY 30 30 0 August 19, 2024 1:00am November 04, 2024 4:24pm meloxicam 15 mg oral tablet (20 sources) Nonsteroidal Anti-inflammatory Drug Start: 2019 End: 2020 take 1 tablet by mouth once daily Meloxicam (Mobic) 15 mg tablet Discontinued 15 mg PO DAILY 30 0 May 20, 2020 12:00am October 28, 2020 12:08pm methocarbamol 500 mg oral tablet (20 sources) Muscle Relaxant Start: 2021 End: 2023 take 1 tablet by mouth three times daily Methocarbamol 500 mg tablet Discontinued 500 mg PO THREE TIMES A DAY January 19, 2022 12:00am May 01, 2024 11:32am methylPREDNISolone 4 mg oral tablet (20 sources) Corticosteroid Start: 2020 End: 2020 take 1 capsule by mouth once at mealtime Medrol 4 MG Oral Tablet Therapy Pack 1 (one) Capsule use as directed per instructions in pack for 0 days Quantity: 1 {Package} Refills: 0 Ordered: 11-Mar-2021 Sakina Kelsey LPN Start : 04-Dec-2020 End : 11-Mar-2021 Discontinued Comments: with food or generic Start: 10-28-2020 End: 10-28-2020 Depo-Medrol (methylprednisol one acetate) 40 mg/mL suspension for injection Discontinued 40 MG INTRAARTIC ONCE October 28, 2020 11:59am October 28, 2020 12:46pm Comment on above: with food or generic naproxen sodium 220 mg oral tablet (20 sources) Nonsteroidal Anti-inflammatory Drug Start: 11 End: take 1 tablet by mouth at mealtime ALEVE, 220MG (Oral Tablet) 1 Tablet q6her for 0 days Quantity: 30 {Tablet} Refills: 0 Ordered: 15-Jun-2012 Leighann Carbajal RN Start : 15-Jul-2011 End : 15-Jun-2012 Inactive Comments: with food Comment on above: with food ondansetron 4 mg disintegrating oral tablet (9 sources) Serotonin-3 Receptor Antagonist Start: End: take 1 tablet by mouth every four hours as needed for nausea and vomiting Ondansetron 4 mg tablet,disintegrating Discontinued 4 mg PO Q4H as needed for nausea and vomiting 10 July 18, 2024 1:00am July 26, 2024 11:14am oxyCODONE hydrochloride 5 mg oral tablet (20 sources) Opioid Agonist Start: 025 End: take 5-10 mg by mouth every six hours as needed for pain Oxycodone 5 mg tablet Discontinued 5 - 10 mg PO EVERY 6 HOURS as needed for Pain Score 1-10 Or Pre Pt/Ot 42 7 0 September 30, 2024 November 04, 2024 4:25pm Periprosthetic fracture around internal prosthetic right hip joint try to wean off. can be addictive. Start: 08-19-2024 End: 09-30-2024 take 5-10 mg by mouth every four hours as needed for pain Oxycodone 5 mg tablet Discontinued 5 - 10 mg PO EVERY 4 HOURS NEEDED as needed for Pain Score 1-10 Or Pre Pt/Ot 42 7 0 September 03, 2024 September 11, 2024 1:19pm Periprosthetic fracture around internal prosthetic right hip joint Start: 07-24-2024 End: 08-19-2024 take 5-10 mg by mouth every six hours as needed for pain Oxycodone 5 mg tablet Discontinued 5 - 10 mg PO EVERY 6 HOURS as needed for Pain Score 6-10/10 56 7 0 July 24, 2024 July 30, 2024 1:00am August 19, 2024 7:35pm Other acute postprocedural pain Start: 07-18-2024 End: 07-26-2024 take 5-10 mg by mouth every four hours at mealtime for pain Oxycodone 5 mg tablet Discontinued 5 - 10 mg PO Q4H as needed for pain 60 7 0 July 18, 2024 July 26, 2024 11:15am Other acute postprocedural pain Other acute postprocedural pain Take with food and minimize use. Can cause nausea. Start: 04-18-2023 End: 05-01-2024 take 1 tablet by mouth every eight hours as needed for pain Oxycodone 5 mg tablet Discontinued 5 mg PO Q8H as needed for pain 12 3 0 April 18, 2023 May 01, 2024 11:33am Avulsion fracture of metatarsal bone of right foot Contusion of rib on right side Contusion of right front wall of thorax, initial encounter Start: 05-20-2020 End: 10-28-2020 take 5-10 mg by mouth every eight hours as needed for pain Oxycodone 5 mg tablet Discontinued 5 - 10 mg PO Q8H as needed for Pain Score 4-10/10 42 0 May 20, 2020 October 28, 2020 12:08pm Other acute postprocedural pain wean off narcotic now. Start: 05-06-2020 End: 10-28-2020 take 5-10 mg by mouth three times daily as needed for pain Oxycodone 5 mg capsule Discontinued 5 - 10 mg PO THREE TIMES A DAY as needed for pain 42 0 May 06, 2020 October 28, 2020 12:08pm Other acute postprocedural pain Start: 04-08-2020 End: 10-28-2020 take 5-10 mg by mouth every six hours as needed for pain Oxycodone 5 mg capsule Discontinued 5 - 10 mg PO EVERY 6 HOURS as needed for pain 50 0 April 22, 2020 October 28, 2020 12:08pm Other acute postprocedural pain Start: 03-05-2020 End: 05-20-2020 take 5-10 mg by mouth every six hours as needed for pain Oxycodone 5 mg tablet Discontinued 5 - 10 mg PO EVERY 6 HOURS as needed for Pain Score 4-10/10 56 0 March 16, 2020 May 20, 2020 1:48pm Other acute postprocedural pain Start: 02-27-2020 End: 03-05-2020 take 5-10 mg by mouth every four hours as needed for pain Oxycodone 5 MG tablet Discontinued 5 - 10 mg PO EVERY 4 HOURS NEEDED as needed for Pain Score 4-10/10 60 0 February 27, 2020 March 05, 2020 11:39am Other acute postprocedural pain pantoprazole 40 mg delayed release oral tablet (18 sources) Proton Pump Inhibitor Start: 08-05-2024 End: 01-12-2025 take 1 tablet by mouth twice daily Pantoprazole 40 mg Tablet,Delayed Release (Dr/Ec) Discontinued 40 mg PO TWICE A DAY 60 30 August 19, 2024 1:00am January 12, 2025 3:10pm polysaccharide iron complex 150 mg oral capsule (9 sources) Start: 08-19-2024 End: 01-12-2025 Polysaccharide Iron Complex (Ferrex 150) 150 mg iron Capsule Discontinued 150 mg PO DAILY 30 30 August 19, 2024 1:00am January 12, 2025 3:11pm predniSONE 20 mg oral tablet (20 sources) Corticosteroid Start: 11-21-2022 End: 05-01-2024 take 2 tablets by mouth once daily Prednisone 20 mg tablet Discontinued 40 mg PO DAILY 10 June 03, 2023 6:02pm May 01, 2024 11:33am Start: 11-21-2022 End: 06-03-2023 take 40 mg by mouth once daily Prednisone Active 40 MG PO DAILY 10 June 03, 2023 6:02pm Start: 03-26-2021 End: 07-02-2021 predniSONE 10 MG Oral Tablet 3 (three) Tablet bid for 2days then 3tabs once daily for 4days with food for 0 days Quantity: 24 {Tablet} Refills: 0 Ordered: 02-Jul-2021 Kimberli Leal LPN Start : 26-Mar-2021 End : 02-Jul-2021 Inactive Start: 11-19-2020 End: 06-03-2023 take 3 tablets by mouth once daily Prednisone 20 MG tablet Discontinued 60 mg PO DAILY November 19, 2020 12:00am June 03, 2023 6:01pm Start: 11-19-2020 End: 06-03-2023 take 60 mg by mouth once daily Prednisone Discontinued 60 MG PO DAILY November 19, 2020 12:00am June 03, 2023 6:01pm Start: 02-15-2017 PREDNISONE 10 MG TABS as needed for flare ups PREDNISONE [id number] Jagdish Mendoza Start: 12-19-2012 End: 11-02-2015 take 1 tablet by mouth once daily as needed PREDNISONE, 10MG (Oral Tablet) 1 Tablet qd prn for 30 days Refills: 0 Ordered: 02-Nov-2015 Leighann Carbajal RN Start : 19-Dec-2012 End : 02-Nov-2015 Inactive Comments: Dr. Navas Comment on above: Dr. Navas risedronate sodium 35 mg oral tablet (20 sources) Start: 07-01-20 11 End: 06-15-20 12 ATELVIA, 35MG (Oral Tablet Delayed Release) [address] qweek for 0 days Quantity: 4 {Tablet_DR} Refills: 4 Ordered: 15-Jun-2012 Leighann Carbajal RN Start : 01-Jul-2011 End : 15-Jun-2012 Inactive Comments: pt used to be on fosamax -- noncompliant with restrictions on how to take -- and gi side effects as well Comment on above: pt used to be on fos amax -- noncompliant with restrictions on how to take -- and gi side effects as well rosuvastatin calcium 5 mg oral tablet (20 sources) HMG-CoA Reductase Inhibitor Start: 12-09-19 09 End: 08-02-20 10 take 1 tablet by mouth once daily CRESTOR, 5MG (Oral Tablet) 1 (one) Tablet Daily for 0 days Quantity: 30 {Tablet} Refills: 3 Ordered: 02-Aug-2010 Leighann Carbajal RN Start : 08-Dec-2008 End : 02-Aug-2010 Inactive sibutramine hydrochloride 10 mg oral capsule (20 sources) Start: 01-09-20 09 End: 08-02-20 10 take 1 capsule by mouth once daily MERIDIA, 10MG (Oral Capsule) 1 (one) Capsule Daily for 0 days Quantity: 30 {Capsule} Refills: 0 Ordered: 02-Aug-2010 Leighann Carbajal RN Start : 08-Jan-2009 End : 02-Aug-2010 Inactive sucralfate 1000 mg oral tablet (18 sources) Aluminum Complex Start: 08-05-20 24 End: 11-05-19 25 take 1 tablet by mouth 1 hour(s) before mealtime Sucralfate 1 gram Tablet Discontinued 1 g PO ONE HOURS BEFORE MEALS & BED 120 30 0 August 19, 2024 1:00am November 04, 2024 4:25pm 28 actuat teriparatide 0.02 mg/actuat pen injector (20 sources) Parathyroid Hormone Analog Start: 03-02-20 End: 03-11-20 Forteo 600 MCG/2.4ML Subcutaneous Solution Pen-injector 1 (one) Injection SUBQ DAILY for 0 days Quantity: 1 {Box} Refills: 9 Ordered: 11-Mar-2021 Sakina Kelsey LPN Start : 02-Mar-2021 End : 11-Mar-2021 Discontinued Comments: Mail order. Start: 02-25-2021 Forteo 600 MCG /2.4ML Subcutaneous Solution Pen-injector 1 (one) Injection SUBQ DAILY for 0 days Quantity: 1 {Box} Refills: 9 Ordered: 25-Feb-2021 Robert DOPatt DO, Kathleen Start : 25-Feb-2021 Active Comments: Mail order. Start: 02-25-2021 Forteo 600 MCG /2.4ML Subcutaneous Solution Pen-injector 1 (one) Injection SUBQ DAILY for 0 days Quantity: 1 {Box} Refills: 9 Ordered: 25-Feb-2021 Robert DO, Patt Robert DO Patt Start : 25-Feb-2021 Active Comments: dx osteoporosis Start: 02-19-2021 Forteo 600 MCG /2.4ML Subcutaneous Solution Pen-injector 1 (one) Injection sq qdaily for 0 days Quantity: 30 {Box} Refills: 11 Ordered: 19-Feb-2021 Robert DO, Pattgaldino Jones DO Patt Start : 19-Feb-2021 Active Comments: one month supplydx osteoporosis Start: 07-06-2018 End: 10-04-2018 Forteo 600 MCG/2.4ML Subcuta neous Solution 1 (one) Injection sq qdaily for 0 days Quantity: 30 {Box} Refills: 11 Ordered: 04-Oct-2018 Stephanie Duke CMA Start : 06-Jul-2018 End : 04-Oct-2018 Discontinued Comments: one month supplydx osteoporosis Start: 07-06-2018 End: 10-04-2018 Forteo 600 MCG/2.4ML Subcuta neous Solution 1 (one) Injection sq qdaily for 0 days Quantity: 30 {Box} Refills: 11 Ordered: 04-Oct-2018 Stephanie Duke CMA Start : 06-Jul-2018 End : 04-Oct-2018 Discontinued Comments: one month supplydx osteoporosis Comment on above: one month supplydx o steoporosis Mail order. dx osteoporosis tiZANidine 4 mg oral capsule (20 sources) Central alpha-2 Adrenergic Agonist Start: End: 2 take 1 capsule by mouth at bedtime as needed Tizanidine (Zanaflex) 4 mg capsule Discontinued 4 mg PO AT BEDTIME as needed for muscle spasticity 14 0 July 15, 2021 1:00am January 19, 2022 1:58pm Start: 07-02-2021 take 1 capsule by mo [facility] twice daily tiZANidine HCl 6 MG Oral Capsule 1 (one) Capsule bid for 0 days Quantity: 20 {Capsule} Refills: 0 Ordered: 02-Jul-2021 Patt Jones DO, DO, Kathleen Start : 02-Jul-2021 Active Turmeric extract (20 sources) Start: 07-03-2024 End: 08-05-2024 take 1 capsule by mouth once daily Turmeric 400 mg capsule Discontinued 800 mg PO DAILY July 03, 2024 12:00am August 05, 2024 1:07pm SUPPLEMENT Start: 07-03-2024 End: 08-05-2024 take 1 capsule by mouth once daily Turmeric 400 mg capsule Discontinued 800 mg PO DAILY July 03, 2024 12:00am August 05, 2024 1:07pm Start: 02-12-2020 End: 02-27-2020 take 2 tablets by mouth once daily Turmeric Root Extract Discontinued 2 TABLET PO DAILY February 12, 2020 9:48am February 27, 2020 11:52am Start: 02-12-2020 End: 02-27-2020 take 1 capsule by mouth once daily Turmeric Root Extract 500 MG capsule Discontinued 2 {tbl} PO DAILY February 12, 2020 12:00am February 27, 2020 11:52am Start: 02-12-2020 End: 02-27-2020 take 2 tablets by mouth once daily Turmeric Root Extract Discontinued 2 TABLET PO DAILY February 11, 2020 11:00pm February 27, 2020 10:52am Start: 02-12-2020 End: 02-27-2020 take 2 tablets by mouth once daily Turmeric Root Extract Discontinued 2 TABLET PO DAILY February 12, 2020 12:00am February 27, 2020 11:52am valACYclovir 500 mg oral tablet (20 sources) Herpesvirus Nucleoside Analog DNA Polymerase Inhibitor, Herpes Simplex Virus Nucleoside Analog DNA Polymerase Inhibitor, Herpes Zoster Virus Nucleoside Analog DNA Polymerase Inhibitor Start: 11-02-2015 End: 01-21-2016 take 1 tablet by mouth twice daily VALACYCLOVIR HCL, 500MG (Oral Tablet) 1 (one) Tablet bid for 0 days Quantity: 60 {Tablet} Refills: 2 Ordered: 21-Jan-2016 Vane Fall CMA Start : 02-Nov-2015 End : 21-Jan-2016 Inactive Problems Active Problems Problem Classification Problem Date Documented Date Episodic/Chronic Abdominal pain (2 sources) Unspecified abdominal pain; Translations: [Left upper quadrant pain] Onset: 5 Episodic Acute bronchitis (20 sources) Acute bronchitis; Translations: [Bronchitis, acute] Resolved: 9 06-09-2015 Episodic Administrative/social admission (20 sources) Medical examinations/reports status; Translations: [Annual physical exam] 05-16-2018 Episodic Bacterial infection; unspecified site (2 sources) Clostridioides difficile infection; Translations: [Other bacterial infections of unspecified site] 04-02-2025 Episodic Deficiency and other anemia (10 sources) Iron deficiency anemia; Translations: [Iron deficiency anemia, unspecified] 08-05-2024 Episodic Deficiency and other anemia (10 sources) Anemia; Translations: [Anemia, unspecified] 08-07-2024 Episodic Diabetes mellitus without complication (20 sources) Hyperglycemia; Translations: [Hyperglycemia] 05-01-2020 Episodic Disorders of lipid metabolism (20 sources) Hypercholesterolemia; Translations: [Hypercholesteremia] 07-06-2018 Chronic E Codes: Fall (1 source) Unspecified fall, initial encounter; Translations: [Unspecified fall, initial encounter] Onset: 5 Episodic Essential hypertension (10 sources) Essential hypertension; Translations: [Essential (primary) hypertension] 08-05-2024 Chronic Fluid and electrolyte disorders (20 sources) Hypokalemia; Translations: [Hypokalemia] 09-01-2024 Episodic Fracture of lower limb (15 sources) Metatarsal bone fracture; Translations: [Fracture of unspecified metatarsal bone(s), right foot, initial encounter for closed fracture] 04-18-2023 Episodic Gastroduodenal ulcer (except hemorrhage) (10 sources) Gastric ulcer; Translations: [Gastric ulcer, unspecified as acute or chronic, without hemorrhage or perforation] 08-05-2024 Chronic Genitourinary symptoms and ill-defined conditions (20 sources) Blood in urine; Translations: [Hematuria] Resolved: 8 04-27-2018 Episodic Comment on above: had kidney stone in oct or november so will repeat urine before other work up Immunizations and screening for infectious disease (20 sources) Need for prophylactic vaccination and inoculation against influenza; Translations: [Needs influenza immunization] Episodic Malaise and fatigue (10 sources) Asthenia; Translations: [Other malaise] 08-05-2024 Episodic Menopausal disorders (20 sources) Menopausal syndrome; Translations: [Menopause syndrome] 07-06-2018 Chronic Nutritional deficiencies (20 sources) Vitamin D deficiency, unspecified; Translations: [Vitamin D deficiency] 07-06-2018 Chronic Osteoarthritis (20 sources) Localized, primary osteoarthritis; Translations: [Unspecified osteoarthritis, unspecified site] Onset: 7 03-04-2017 Chronic Comment on above: Has seen Eron in past was on tramadol, for rheumatoid per pt, was on methotrexate Osteoporosis (20 sources) Osteoporosis; Translations: [Osteoporosis] 07-06-2018 Chronic Comment on above: was her baseline on forteo for <2yr before ins chg and then too costly - doesnt tolerate po so then trying prolia - waiting for correspondance needs follow up with this, said prolia too expensivewas her baseline on forteo for <2yr before ins chg and then too costly - doesnt tolerate po so then trying prolia - waiting for correspondance Other aftercare (14 sources) Follow-up status; Translations: [Encounter for other orthopedic aftercare] 07-22-2024 Episodic Other aftercare (10 sources) Drug therapy finding; Translations: [director long term care (current) use of anticoagulants] 07-26-2024 Episodic Other bone disease and musculoskeletal deformities (9 sources) Avascular necrosis of bone; 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] 06-14-2024 Chronic Other bone disease and musculoskeletal deformities (1 source) Idiopathic aseptic necrosis of unspecified femur; 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] Onset: 4 Chronic Other bone disease and musculoskeletal deformities (1 source) Idiopathic aseptic necrosis of unspecified bone; Translations: [Idiopathic aseptic necrosis of unspecified bone] Onset: 4 Chronic Other bone disease and musculoskeletal deformities (20 sources) Osteopenia; Translations: [Osteopenia] 07-06-2018 Episodic Comment on above: dexa done 05/2015 Other bone disease and musculoskeletal deformities (1 source) Other specified disorders of bone density and structure, multiple sites; Translations: [Other specified disorders of bone density and structure, multiple sites] Onset: 5 Episodic Other circulatory disease (20 sources) Elevated blood-pressure reading without diagnosis of hypertension; Translations: [Elevated blood-pressure reading without diagnosis of hypertension] Resolved: 1 06-09-2015 Episodic Other connective tissue disease (20 sources) History of total knee arthroplasty; Translations: [Presence of unspecified artificial knee joint] 01-19-2022 Chronic Other connective tissue disease (2 sources) Presence of unspecified artificial knee joint; Translations: [Knee joint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 04-14-2025 RBC (Bld) [#/Vol] 3.98 10*6/uL Low 4.2-5.4 [facility] Serum creatinine measurement (mass/volume)Ordered By: Manisha Navas on 04-14-2025 Creatinine [Mass/Vol] 0.85 mg/dL 0.70-1.20 [facility] Serum globulin measurementOr dered By: Manisha Navas on 04-14-2025 Globulin (S) [Mass/Vol] 2.7 g/dL 2.2-4.2 [facility] Serum glucose measurement (m ass/volume)Ordered By: Manisha Navas on 04-14-2025 Glucose [Mass/Vol] 122 mg/dL High 70-99 [facility] Serum or plasma alanine graves otransferase (ALT) measurementOrdered By: Manisha Navas on 04-14-2025 ALT [Catalytic activity/Vol] 12 U/L <35 [facility] Serum or plasma albumin bennie urement (mass/volume)Ordered By: Manisha Navas on 04-14-2025 Albumin [Mass/Vol] 4.0 g/dL 3.4-4.8 [facility] Serum or plasma albumin/glob ulin mass ratioOrdered By: Manisha Navas on 04-14-2025 Albumin/Globulin [Mass ratio] 1.5 {ratio} 0.9-2.4 [facility] Serum or plasma alkaline coy sphatase measurementOrdered By: Manisha Navas on 04-14-2025 ALP [Catalytic activity/Vol] 98 U/L 35-104 [facility] Serum or plasma calcium bennie urement (mass/volume)Ordered By: Manisha Navas on 04-14-2025 Calcium [Mass/Vol] 9.8 mg/dL 7.6-11.0 [facility] Serum or plasma urea nitroge n measurement (mass/volume)Ordered By: Manisha Navas on 04-14-2025 Urea nitrogen [Mass/Vol] 18 mg/dL 4-19 [facility] Sodium levelOrdered By: Pradip Navas on 04-14-2025 Sodium [Moles/Vol] 137 mmol/L 133-145 [facility] Total proteinOrdered By: Judie Navas on 04-14-2025 Protein [Mass/Vol] 6.6 g/dL 5.9-8.4 [facility] White blood cell (WBC) count Ordered By: Manisha Navas on 04-14-2025 WBC (Bld) [#/Vol] 3.6 10*3/uL Low 4.4-11.0 [facility] Ova and Parasites 8623on OP Normal [facility] Comment on above: Performed By: #### M 600.5000 ####[facility] [address] [place], [place], [id number] Abdomen/Pelvis W IV Cont ONL Yon 04-02-2025 Abdomen/Pelvis W IV Cont ONLY Normal [facility] Absolute lymphocyte countOrd ered By: Brady Marin on 04-02-2025 Lymphocytes Auto (Unsp spec) [#/Vol] 1.03 10*3/uL 0.83-4.51 [facility] Absolute neutrophil countOrd ered By: Brady Marin on 04-02-2025 Neutrophils (Bld) [#/Vol] 12.9 10*3/uL High 2.0-7.7 [facility] Anion gap in Serum or Plasma Ordered By: Brady Marin on 04-02-2025 Anion gap [Moles/Vol] 16 mmol/L High 5-15 [facility] Automated lymphocyte count a s percentage of total leukocytesOrdered By: Brady Marin on 04-02-2025 Lymphocytes/100 WBC Auto (Unsp spec) 6.1 % Low 19-41 [facility] BUN/creatinine ratioOrdered By: Bradytai Marin on 04-02-2025 Urea nitrogen/Creatinine [Mass ratio] 19.4 mg/mg 10-20 [facility] Basophil percentageOrdered B y: Brady Marin on 04-02-2025 Basophils/100 WBC (Bld) 0.4 % 0-1 [facility] Bilirubin Test strip Ql (U)O rdered By: Brady Marin on 04-02-2025 Bilirubin Ql (U) Negative Negative [facility] Bilirubin, totalOrdered By: Brady Marin on 04-02-2025 Bilirubin [Mass/Vol] 0.49 mg/dL 0.00-1.30 [facility] Blood manual differential co mment interpretation (narrative result)Ordered By: Brady Marin on 04-02-2025 Manual differential comment Armando (Bld) [Interp] SCANNED [facility] CBC + diff autoon 04-02-2025 CBC W Auto Differential panel (Bld) [facility] CBC W/Diff, Automatedon 03-06 PLT EST ADEQUATE Normal ADEQ [facility] Comment on above: Performed By: #### L 100.0100 ####[facility] [address] [place], [address] SMEAR COMMENT SCANNED Normal [facility] Comment on above: Performed By: #### L 100.0100 ####[facility] [address] [place], [address] DIFF INDICATED? SCAN CRITERIA MET Normal [facility] Comment on above: Result Comment: This specimen has been REJECTED due to Laboratory criteria:Clotted.GOPI SNYDER has been notified of need of recollection.04/02/25 1457 Shaista Lora Performed By: #### L 503.6005, L500.4050, L501.2450, L100.0100 ####[facility] [address] [place], [address] Absolute Lymph 1.25 X10 3/uL Normal 0.83-4.51 [facility] Comment on above: Result Comment: This specimen has been REJECTED due to Laboratory criteria:Clotted.GOPI SNYDER has been notified of need of recollection.04/02/25 1457 Shaista Lora Performed By: #### L 503.6005, L500.4050, L501.2450, L100.0100 ####[facility] [address] [place], [address] Absolute Neut 13.9 X10 3/uL High 2.0-7.7 [facility] Comment on above: Result Comment: This specimen has been REJECTED due to Laboratory criteria:Clotted.GOPI SNYDER has been notified of need of recollection.04/02/25 1457 Shaista Lora Performed By: #### L 503.6005, L500.4050, L501.2450, L100.0100 ####[facility] [address] [place], [address] BASO# 0.09 X10 3/uL Normal [facility] Comment on above: Result Comment: This specimen has been REJECTED due to Laboratory criteria:Clotted.GOPI SNYDER has been notified of need of recollection.04/02/25 1457 Shaista Lroa Performed By: #### L 503.6005, L500.4050, L501.2450, L100.0100 ####[facility] [address] [place], [address] Basophils/100 WBC (Bld) 0.5 % Normal 0-1 [facility] Comment on above: Result Comment: This specimen has been REJECTED due to Laboratory criteria:Clotted.GOPI SNYDER has been notified of need of recollection.04/02/25 1457 Shaista Lora Performed By: #### L 503.6005, L500.4050, L501.2450, L100.0100 ####[facility] [address] [place], [address] EOS# 0.00 X10 3/uL Normal [facility] Comment on above: Result Comment: This specimen has been REJECTED due to Laboratory criteria:Clotted.GOPI SNYDER has been notified of need of recollection.04/02/25 1457 Shaista Lora Performed By: #### L 503.6005, L500.4050, L501.2450, L100.0100 ####[facility] [address] [place], [address] Eosinophils/100 WBC (Bld) 0.0 % Normal 0-5 [facility] Comment on above: Result Comment: This specimen has been REJECTED due to Laboratory criteria:Clotted.GOPI SNYDER has been notified of need of recollection.04/02/25 1457 Shaista Lora Performed By: #### L 503.6005, L500.4050, L501.2450, L100.0100 ####[facility] [address] [place], [address] Erythrocyte distribution width (RBC) [Ratio] 13.5 % Normal 11.6-14.6 [facility] Comment on above: Result Comment: This specimen has been REJECTED due to Laboratory criteria:Clotted.GOPI SNYDER has been notified of need of recollection.04/02/25 1457 Shaista Lora Performed By: #### L 503.6005, L500.4050, L501.2450, L100.0100 ####[facility] [address] [place], [address] Hematocrit (Bld) [Volume fraction] 39.0 % Normal 37-47 [facility] Comment on above: Result Comment: This specimen has been REJECTED due to Laboratory criteria:Clotted.GOPI SNYDER has been notified of need of recollection.04/02/25 1457 Shaista Lora Performed By: #### L 503.6005, L500.4050, L501.2450, L100.0100 ####[facility] [address] [place], [address] Hemoglobin (Bld) [Mass/Vol] 12.8 g/dL Normal 12.0-15.0 [facility] Comment on above: Result Comment: This specimen has been REJECTED due to Laboratory criteria:Clotted.GOPI SNYDER has been notified of need of recollection.04/02/25 1457 Shaista Lora Performed By: #### L 503.6005, L500.4050, L501.2450, L100.0100 ####[facility] [address] [place], [address] IG# 0.100 X10 3/uL High 0.0-0.0 [facility] Comment on above: Result Comment: This specimen has been REJECTED due to Laboratory criteria:Clotted.GOPI SNYDER has been notified of need of recollection.04/02/25 1457 Shaista Lora Performed By: #### L 503.6005, L500.4050, L501.2450, L100.0100 ####[facility] [address] [place], [address] IG% 0.600 Normal 0.0-0.9 [facility] Comment on above: Result Comment: This specimen has been REJECTED due to Laboratory criteria:Clotted.GOPI SNYDER has been notified of need of recollection.04/02/25 1457 Shaista JuliocesarardIG% - Immature Granulocytes (promyelocytes, myelocytes andmetamyelocytes) > 1% indicates that a LEFT SHIFT is Present. Performed By: #### L 503.6005, L500.4050, L501.2450, L100.0100 ####[facility] [address] [place], [address] LYMPH# 1.25 X10 3/ul Normal 0.83-4.51 [facility] Comment on above: Result Comment: This specimen has been REJECTED due to Laboratory criteria:Clotted.GOPI SNYDER has been notified of need of recollection.04/02/25 145 Shaista Lora Performed By: #### L 503.6005, L500.4050, L501.2450, L100.0100 ####[facility] [address] [place], [address] Lymphocytes/100 WBC (Bld) 7.4 % Low 19-41 [facility] Comment on above: Result Comment: This specimen has been REJECTED due to Laboratory criteria:Clotted.GOPIMEGAN SNYDER has been notified of need of recollection.04/02/25 145 Shaista Lora Performed By: #### L 503.6005, L500.4050, L501.2450, L100.0100 ####[facility] [address] [place], [address] MCH (RBC) [Entitic mass] 29.6 pg Normal 27.0-32.0 [facility] Comment on above: Result Comment: This specimen has been REJECTED due to Laboratory criteria:Clotted.GOPI SNYDER has been notified of need of recollection.04/02/257 Shaista Lora Performed By: #### L 503.6005, L500.4050, L501.2450, L100.0100 ####[facility] [address] [place], [address] MCHC (RBC) [Mass/Vol] 32.8 g/dL Normal 32-36 [facility] Comment on above: Result Comment: This specimen has been REJECTED due to Laboratory criteria:Clotted.GOPI SNYDER has been notified of need of recollection.04/02/251456 Shaista Lora Performed By: #### L 503.6005, L500.4050, L501.2450, L100.0100 ####[facility] [address] [place], [address] MCV (RBC) [Entitic vol] 90.1 fL Normal 81-99 [facility] Comment on above: Result Comment: This specimen has been REJECTED due to Laboratory criteria:Clotted.GOPI SNYDER has been notified of need of recollection.04/02/251456 Shaista Lora Performed By: #### L 503.6005, L500.4050, L501.2450, L100.0100 ####[facility] [address] [place], [address] MONO # 1.67 X10 3/uL Normal [facility] Comment on above: Result Comment: This specimen has been REJECTED due to Laboratory criteria:Clotted.GOPI SNYDER has been notified of need of recollection.04/02/251456 Shaista Lora Performed By: #### L 503.6005, L500.4050, L501.2450, L100.0100 ####[facility] [address] [place], [address] Monocytes/100 WBC (Bld) 9.8 % Normal 0-10 [facility] Comment on above: Result Comment: This specimen has been REJECTED due to Laboratory criteria:Clotted.GPOI SNYDER has been notified of need of recollection.04/02/251456 Shaista Lora Performed By: #### L 503.6005, L500.4050, L501.2450, L100.0100 ####[facility] [address] [place], [address] Neutrophil # 13.86 X10 3/uL High 2.7-7.7 [facility] Comment on above: Result Comment: This specimen has been REJECTED due to Laboratory criteria:Clotted.GOPI SNYDER has been notified of need of recollection.04/02/25 145 Shaista Lora Performed By: #### L 503.6005, L500.4050, L501.2450, L100.0100 ####[facility] [address] [place], [address] Neutrophils/100 WBC (Bld) 81.7 % High 47-70 [facility] Comment on above: Result Comment: This specimen has been REJECTED due to Laboratory criteria:Clotted.GOPI SNYDER has been notified of need of recollection.04/02/251456 Shaista Lora Performed By: #### L 503.6005, L500.4050, L501.2450, L100.0100 ####[facility] [address] [place], [address] Nucleated RBC (Bld) [#/Vol] 0 10*3/uL Normal 0-5 [facility] Comment on above: Result Comment: This specimen has been REJECTED due to Laboratory criteria:Clotted.GOPI SNYDER has been notified of need of recollection.04/02/251456 Shaista Lora Performed By: #### L 503.6005, L500.4050, L501.2450, L100.0100 ####[facility] [address] [place], [address] Platelet mean volume (Bld) [Entitic vol] 9.8 fL Normal 6.2-12.0 [facility] Comment on above: Result Comment: This specimen has been REJECTED due to Laboratory criteria:Clotted.GOPI SNYDER has been notified of need of recollection.04/02/251456 Shaista Lora Performed By: #### L 503.6005, L500.4050, L501.2450, L100.0100 ####[facility] [address] [place], [address] Platelets (Bld) [#/Vol] 297 10*3/uL Normal 150-450 [facility] Comment on above: Result Comment: This specimen has been REJECTED due to Laboratory criteria:Clotted.GOPI SNYDER has been notified of need of recollection.04/02/25 1457 Shaista Lora Performed By: #### L 503.6005, L500.4050, L501.2450, L100.0100 ####[facility] [address] [place], [address] POSITIVE DIFF YES Abnormal [facility] Comment on above: Result Comment: This specimen has been REJECTED due to Laboratory criteria:Clotted.GOPI SNYDER has been notified of need of recollection.04/02/25 1457 Shaista Lora Performed By: #### L 503.6005, L500.4050, L501.2450, L100.0100 ####[facility] [address] [place], [address] RBC (Bld) [#/Vol] 4.33 10*6/uL Normal 4.2-5.4 [facility] Comment on above: Result Comment: This specimen has been REJECTED due to Laboratory criteria:Clotted.GOPI SNYDER has been notified of need of recollection.04/02/25 1457 Shaista Lora Performed By: #### L 503.6005, L500.4050, L501.2450, L100.0100 ####[facility] [address] [place], [address] RDW SD 44.3 fl High 35.1-43.9 [facility] Comment on above: Result Comment: This specimen has been REJECTED due to Laboratory criteria:Clotted.GOPI SNYDER has been notified of need of recollection.04/02/25 1457 Shaista Lora Performed By: #### L 503.6005, L500.4050, L501.2450, L100.0100 ####[facility] [address] [place], [address] WBC (Bld) [#/Vol] 17.0 10*3/uL High 4.4-11.0 [facility] Comment on above: Result Comment: This specimen has been REJECTED due to Laboratory criteria:Clotted.GOPI SNYDER has been notified of need of recollection.04/02/25 1457 Shaista Paulino Performed By: #### L 503.6005, L500.4050, L501.2450, L100.0100 ####[facility] [address] [place], [address] CDIFF (PCR)on 04-02-2025 CDIFF Normal [facility] Comment on above: Performed By: #### M 100.6796, L400.0001, M100.6795 ####[facility] [address] [place], [address] Carbon dioxide, total [Moles /volume] in Central venous bloodOrdered By: Brady Marin on 04-02-2025 CO2 [Moles/Vol] 23.4 mmol/L 21.0-32.0 [facility] Chloride assayOrdered By: Bernardo Marin on 04-02-2025 Chloride [Moles/Vol] 102 mmol/L 98-108 [facility] Clostridium Diff Toxin/Agon 04-02-2025 CDIFF (EIA) Normal [facility] Comment on above: Performed By: #### M 100.6796, L400.0001, M100.6795 ####[facility] [address] [place], [address] Clostridium difficile detect ion by polymerase chain reactionOrdered By: Brady Marin on 04-02-2025 C. difficile DNA ARIANE+probe Ql (Unsp spec) [facility] Comprehensive Metabolic Prof ilon 04-02-2025 Albumin [Mass/Vol] 4.0 g/dL Normal 3.4-4.8 [facility] Comment on above: Performed By: #### L 503.6005, L500.4050, L501.2450, L100.0100 ####[facility] [address] [place], [address] Albumin/Globulin [Mass ratio] 1.2 {ratio} Normal 0.9-2.4 [facility] Comment on above: Performed By: #### L 503.6005, L500.4050, L501.2450, L100.0100 ####[facility] [address] [place], [address] ALK PHOS 117 U/L High 35-104 [facility] Comment on above: Performed By: #### L 503.6005, L500.4050, L501.2450, L100.0100 ####[facility] [address] [place], [address] ALT [Catalytic activity/Vol] 8 U/L Normal <=34 [facility] Comment on above: Performed By: #### L 503.6005, L500.4050, L501.2450, L100.0100 ####[facility] [address] [place], [address] AST [Catalytic activity/Vol] 22 U/L Normal <=31 [facility] Comment on above: Performed By: #### L 503.6005, L500.4050, L501.2450, L100.0100 ####[facility] [address] [place], [address] Bilirubin [Mass/Vol] 0.49 mg/dL Normal 0.00-1.30 [facility] Comment on above: Performed By: #### L 503.6005, L500.4050, L501.2450, L100.0100 ####[facility] [address] [place], [address] BUN/CRE 19.4 RATIO Normal 10-20 [facility] Comment on above: Performed By: #### L 503.6005, L500.4050, L501.2450, L100.0100 ####[facility] [address] [place], [address] Calcium [Mass/Vol] 9.9 mg/dL Normal 7.6-11.0 [facility] Comment on above: Performed By: #### L 503.6005, L500.4050, L501.2450, L100.0100 ####[facility] [address] [place], [address] Chloride [Moles/Vol] 102 mmol/L Normal 98-108 [facility] Comment on above: Performed By: #### L 503.6005, L500.4050, L501.2450, L100.0100 ####[facility] [address] [place], [address] CO2 [Moles/Vol] 23.4 mmol/L Normal 21.0-32.0 [facility] Comment on above: Performed By: #### L 503.6005, L500.4050, L501.2450, L100.0100 ####[facility] [address] [place], [address] Creatinine [Mass/Vol] 0.80 mg/dL Normal 0.70-1.20 [facility] Comment on above: Performed By: #### L 503.6005, L500.4050, L501.2450, L100.0100 ####[facility] [address] [place], [address] GAP 16 High 5-15 [facility] Comment on above: Performed By: #### L 503.6005, L500.4050, L501.2450, L100.0100 ####[facility] [address] [place], [address] GFR/1.73 sq M.predicted among non-blacks MDRD (S/P/Bld) [Vol rate/Area] 78 mL/min/{1.73_m2} Normal >60 [facility] Comment on above: Result Comment: mL/m in/1.73m2 CKD-EPI Creatinine Equation (2020) Performed By: #### L 503.6005, L500.4050, L501.2450, L100.0100 ####[facility] [address] [place], [address] Globulin (S) [Mass/Vol] 3.2 g/dL Normal 2.2-4.2 [facility] Comment on above: Performed By: #### L 503.6005, L500.4050, L501.2450, L100.0100 ####[facility] [address] [place], [address] Glucose [Mass/Vol] 103 mg/dL High 70-99 [facility] Comment on above: Performed By: #### L 503.6005, L500.4050, L501.2450, L100.0100 ####[facility] [address] [place], [address] Potassium [Moles/Vol] 3.5 mmol/L Normal 3.3-5.1 [facility] Comment on above: Performed By: #### L 503.6005, L500.4050, L501.2450, L100.0100 ####[facility] [address] [place], [address] Sodium [Moles/Vol] 141 mmol/L Normal 133-145 [facility] Comment on above: Performed By: #### L 503.6005, L500.4050, L501.2450, L100.0100 ####[facility] [address] [place], [address] T PROT 7.3 g/dL Normal 5.9-8.4 [facility] Comment on above: Performed By: #### L 503.6005, L500.4050, L501.2450, L100.0100 ####[facility] [address] [place], [address] Urea nitrogen [Mass/Vol] 16 mg/dL Normal 4-19 [facility] Comment on above: Performed By: #### L 503.6005, L500.4050, L501.2450, L100.0100 ####[facility] [address] [place], [address] Emergency Department Summary on 04-02-2025 Emergency Department Summary Normal [facility] Eosinophil percentageOrdered By: Brady Marin on 04-02-2025 Eosinophils/100 WBC (Bld) 5.0 % 0-5 [facility] Erythrocyte distribution wid th ratioOrdered By: Brady Marin on 04-02-2025 Erythrocyte distribution width (RBC) [Ratio] 13.3 % 11.6-14.6 [facility] Erythrocyte distribution wid th standard deviationOrdered By: Mazon Shayna Ledbetter on 04-02-2025 Erythrocyte distribution width (RBC) [Ratio] 43.8 fl 35.1-43.9 [facility] Glomerular filtration rate ( GFR) estimation/1.73 sq m using serum, plasma, or whole bOrdered By: Brady Marin on 04-02-2025 GFR/1.73 sq M.predicted among non-blacks MDRD (S/P/Bld) [Vol rate/Area] 78 mL/min/{1.73_m2} >60 [facility] Comment on above: mL/min/1.73m2 CKD-EP I Creatinine Equation (2020) Hematocrit Auto (Bld) [Volum e fraction]Ordered By: Brady Marin on 04-02-2025 Hematocrit (Bld) [Volume fraction] 35.9 % Low 37-47 [facility] Hemoglobin measurementOrdere d By: Brady Marin on 04-02-2025 Hemoglobin (Bld) [Mass/Vol] 11.8 g/dL Low 12.0-15.0 [facility] Immature granulocytes/100 WB C Auto (Bld)Ordered By: Brady Marin on 04-02-2025 Immature granulocytes/100 WBC (Bld) 0.400 % 0.0-0.9 [facility] Comment on above: IG% - Immature Granu locytes (promyelocytes, myelocytes and metamyelocytes) > 1% indicates that a LEFT SHIFT is Present. Ketones Test strip Ql (U)Ord ered By: Brady Marin on 04-02-2025 Ketones Ql (U) 15 mg/dl High Negative [facility] Laboratory - Chemistry and C hemistry - challengeOrdered By: Brady CorralAnatoly on 04-02-2025 AST [Catalytic activity/Vol] 22 U/L <32 [facility] Lactic Acidon 04-02-2025 Lactate [Moles/Vol] 1.3 mmol/L Normal 0.0-2.0 [facility] Comment on above: Order Comment: Y Performed By: #### L 503.6005, L500.4050, L501.2450, L100.0100 ####[facility] [address] [place], [place], [id number] Lactic acid measurementOrder ed By: Brady Marin on 04-02-2025 Lactate [Moles/Vol] 1.3 mmol/L 0.0-2.0 [facility] Lipaseon 04-02-2025 Lipase [Catalytic activity/Vol] 21 U/L Normal 13-75 [facility] Comment on above: Result Comment: Pilar esparza note:LIPASE revised reference range effective 22.New Lipase methodology. Expected to produce lower valuesthan the previous assay method.NEW Reference Range: 13 - 75 U/L Performed By: #### L 503.6005, L500.4050, L501.2450, L100.0100 ####[facility] [address] [place], [place], [id number] Lipase measurementOrdered By : Brady Marin on 04-02-2025 Lipase [Catalytic activity/Vol] 21 U/L 13-75 [facility] Comment on above: Please note:LIPASE r evised reference range effective 22. New Lipase methodology. Expected to produce lower values than the previous assay method. NEW Reference Range: 13 - 75 U/L MCV (mean corpuscular volume ) determinationOrdered By: Brady Marin on 04-02-2025 MCV (RBC) [Entitic vol] 90.7 fL 81-99 [facility] Mean corpuscular hemoglobin (MCH) determinationOrdered By: Brady Marin on 04-02-2025 MCH (RBC) [Entitic mass] 29.8 pg 27.0-32.0 [facility] Mean corpuscular hemoglobin concentration (MCHC) determinationOrdered By: Brady Marin on 04-02-2025 MCHC (RBC) [Mass/Vol] 32.9 g/dL 32-36 [facility] Mean platelet volume determi nationOrdered By: Brady Marin on 04-02-2025 Platelet mean volume (Bld) [Entitic vol] 8.8 fL 6.2-12.0 [facility] Microscopic analysis of urin e for red blood cells (RBC)Ordered By: Brady Marin on 04-02-2025 Microscopic analysis of urine for red blood cells (RBC) 0-5 SEEN /hpf 0-5 [facility] Monocyte percentageOrdered B y: Brady Marin on 04-02-2025 Monocytes/100 WBC (Bld) 12.2 % High 0-10 [facility] Mucus LM Ql (Urine sed)Order ed By: Brady Marin on 04-02-2025 Mucus Ql (Urine sed) RARE /hpf [facility] Neutrophil percentageOrdered By: Brady Marin on 04-02-2025 Neutrophils/100 WBC (Bld) 75.9 % High 47-70 [facility] Nitrite Test strip Ql (U)Ord ered By: Brady Marin on 04-02-2025 Nitrite Ql (U) Negative Negative [facility] Nucleated red blood cell per centageOrdered By: Brady Marin on 04-02-2025 Nucleated RBC/100 WBC (Bld) [Ratio] 0 % 0-5 [facility] Platelet countOrdered By: Bernardo Marin on 04-02-2025 Platelets (Bld) [#/Vol] 379 10*3/uL 150-450 [facility] Platelet estimateOrdered By: Brady Marin on 04-02-2025 Platelets LM Ql (Bld) ADEQUATE ADEQ [facility] Potassium measurement (mass/ volume)Ordered By: Brady Marin on 04-02-2025 Potassium (Unsp spec) [Mass/Vol] 3.5 mmol/L 3.3-5.1 [facility] Protein Test strip Ql (U)Ord ered By: Brady Marin on 04-02-2025 Protein Ql (U) 15 mg/dl High Negative [facility] RBC Auto (Bld) [#/Vol]Ordere d By: Brady Marin on 04-02-2025 RBC (Bld) [#/Vol] 3.96 10*6/uL Low 4.2-5.4 [facility] Serum creatinine measurement (mass/volume)Ordered By: Brady Marin on 04-02-2025 Creatinine [Mass/Vol] 0.80 mg/dL 0.70-1.20 [facility] Serum globulin measurementOr dered By: Brady Marin on 04-02-2025 Globulin (S) [Mass/Vol] 3.2 g/dL 2.2-4.2 [facility] Serum glucose measurement (m ass/volume)Ordered By: Brady Marin on 04-02-2025 Glucose [Mass/Vol] 103 mg/dL High 70-99 [facility] Serum or plasma alanine graves otransferase (ALT) measurementOrdered By: Brady Marin on 04-02-2025 ALT [Catalytic activity/Vol] 8 U/L <35 [facility] Serum or plasma albumin bennie urement (mass/volume)Ordered By: Brady Ledbetter on 04-02-2025 Albumin [Mass/Vol] 4.0 g/dL 3.4-4.8 [facility] Serum or plasma albumin/glob ulin mass ratioOrdered By: Brady Marin on 04-02-2025 Albumin/Globulin [Mass ratio] 1.2 {ratio} 0.9-2.4 [facility] Serum or plasma alkaline coy sphatase measurementOrdered By: Mazon Tomas on 04-02-2025 ALP [Catalytic activity/Vol] 117 U/L High 35-104 [facility] Serum or plasma calcium bennie urement (mass/volume)Ordered By: Brady Shayna Ledbetter on 04-02-2025 Calcium [Mass/Vol] 9.9 mg/dL 7.6-11.0 [facility] Serum or plasma urea nitroge n measurement (mass/volume)Ordered By: Brady Marin on 04-02-2025 Urea nitrogen [Mass/Vol] 16 mg/dL 4-19 [facility] Sodium levelOrdered By: Indio Marin on 04-02-2025 Sodium [Moles/Vol] 141 mmol/L 133-145 [facility] Squamous epithelial cells de tection in urine sediment by light microscopyOrdered By: Brady Marin on 04-02-2025 Epithelial cells.squamous LM Ql (Urine sed) 0-5 SEEN /hpf 5-10 [facility] Stool Clostridium difficile detectionOrdered By: Brady Marin on 04-02-2025 C. difficile Ql (Stl) Toxigenic C. difficile Abnormal [facility] Stool Occult Blood iFOBon STOB Positive Normal [facility] Comment on above: Performed By: #### M 100.4410 ####[facility] [address] [place], [place], [phone] Stool gastrointestinal hemog lobin detection by immunologic methodOrdered By: Brady Marin on 04-02-2025 Lower GI hemoglobin IA Ql (Stl) Positive Abnormal [facility] Total proteinOrdered By: Jg Marin on 04-02-2025 Protein [Mass/Vol] 7.3 g/dL 5.9-8.4 [facility] Urinalysis, Completeon 04-02 EPI,SQUAMOUS 0-5 SEEN Normal 5-10 [facility] Comment on above: Order Comment: ROBERT CTOR TO SPECIFY Performed By: #### M 100.6796, L400.0001, M100.6795 ####[facility] [address] [place], [address] RBC 0-5 SEEN Normal 0-5 [facility] Comment on above: Order Comment: ROBERT CTOR TO SPECIFY Performed By: #### M 100.6796, L400.0001, M100.6795 ####[facility] [address] [place], [address] WBC 0-5 SEEN Normal 0-5 [facility] Comment on above: Order Comment: ROBERT CTOR TO SPECIFY Performed By: #### M 100.6796, L400.0001, M100.6795 ####[facility] [address] [place], [address] BACTERIA RARE Normal None Seen [facility] Comment on above: Order Comment: ROBERT CTOR TO SPECIFY Performed By: #### M 100.6796, L400.0001, M100.6795 ####[facility] [address] [place], [address] Mucus Ql (Urine sed) RARE Normal [facility] Comment on above: Order Comment: ROBERT CTOR TO SPECIFY Performed By: #### M 100.6796, L400.0001, M100.6795 ####[facility] [address] [place], [address] Urine clarityOrdered By: Jg Marin on 04-02-2025 Clarity (U) Clear Clear [facility] Urine color determinationOrd ered By: Brady Marin on 04-02-2025 Color (U) Yellow Yellow [facility] Urine glucose detectionOrder ed By: Brady Marin on 04-02-2025 Glucose Ql (U) Normal mg/dl Normal [facility] Urine leukocyte esterase det ection by dipstickOrdered By: Brady Marin on 04-02-2025 Leukocyte esterase Test strip Ql (U) Negative Negative [facility] Urine pHOrdered By: Brady Stone on 04-02-2025 pH (U) 6.0 [pH] 5.0 - 8.0 [facility] Urine sediment bacteria coun t by microscopy (number/high power field)Ordered By: Brady Marin on 04-02-2025 Bacteria LM.HPF (Urine sed) [#/Area] RARE /hpf None Seen [facility] Urine specific gravity measu rementOrdered By: Brady Marin on 04-02-2025 Specific gravity (U) [Rel density] 1.025 1.002-1.03 0 [facility] Urine urobilinogen measureme ntOrdered By: Brady Marin on 04-02-2025 Urobilinogen Ql (U) Normal mg/dl Normal [facility] White blood cell (WBC) count Ordered By: Brady Marin on 04-02-2025 WBC (Bld) [#/Vol] 17.0 10*3/uL High 4.4-11.0 [facility] White blood cell countOrdere d By: Brady Marin on 04-02-2025 White blood cell count 0-5 SEEN /hpf 0-5 [facility] Urgent Care Visit Reporton 0 03-21-2025 Urgent Care Visit Report Normal [facility] HIP, UNI W/ Pelvis 2-3 Views on 03-10-2025 HIP, UNI W/ Pelvis 2-3 Views Normal [facility] Office Visit Reporton 2024 Office Visit Report Normal [facility] Abdomen/Pelvis without Conto n 02-19-2025 Abdomen/Pelvis without Cont Normal [facility] Urine Cultureon 01-18-2025 URC #1, 2 Below infectio n level. GNR lactose director cardiology [place] Count <1000 Mixed Gram Positive Organisms Mixed Gram Positive Organisms MIXC Mixed contaminants. Submit a new specimen if indicated. Normal [facility] Comment on above: Performed By: #### L 501.2400, L100.0500, L101.9900, M100.2200, L501.6710, L400.2010 ####[facility] [address] [place], [place], [address] Abdomen Completeon Abdomen Complete Normal [facility] Amylaseon 01-16-2025 LACEY 54 U/L Normal 28-100 [facility] Comment on above: Performed By: #### L 501.2400, L100.0500, L101.9900, M100.2200, L501.6710, L400.2010 ####[facility] [address] [place], [place], [phone] Automated blood erythrocyte countOrdered By: Patt Jones on 01-16-2025 RBC (Bld) [#/Vol] 3.95 10*6/uL Low 4.2-5.4 [facility] Comment on above: Performed By: #### L 501.2400, L100.0500, L101.9900, M100.2200, L501.6710, L400.2010 ####[facility] [address] [place], [place], [phone] Automated blood hematocrit ( percentage)Ordered By: Patt Jones on 01-16-2025 Hematocrit (Bld) [Volume fraction] 35.2 % Low 37-47 [facility] Comment on above: Performed By: #### L 501.2400, L100.0500, L101.9900, M100.2200, L501.6710, L400.2010 ####[facility] [address] [place], [place], [id number] Bilirubin Test strip Ql (U)O rdered By: Patt Jones on 01-16-2025 Bilirubin Ql (U) Negative Negative [facility] CBC-Complete Blood Cnt No Di ffon 01-16-2025 RDW SD 54.8 fl High 35.1-43.9 [facility] Comment on above: Performed By: #### L 501.2400, L100.0500, L101.9900, M100.2200, L501.6710, L400.2010 ####[facility] [address] [place], [address] CRPon 01-16-2025 C-REACTIVE PROT < 3.00 Normal 0.0-3.0 [facility] Comment on above: Performed By: #### L 501.2400, L100.0500, L101.9900, M100.2200, L501.6710, L400.2010 ####[facility] [address] [place], [place], [phone] Erythrocyte Sed Rateon 01-16 SED RATE 18 mm/hr Normal 0-30 [facility] Comment on above: Performed By: #### L 501.2400, L100.0500, L101.9900, M100.2200, L501.6710, L400.2010 ####[facility] [address] [place], [place], [phone] Erythrocyte distribution wid th ratioOrdered By: Patt Jones on 01-16-2025 Erythrocyte distribution width (RBC) [Ratio] 16.9 % High 11.6-14.6 [facility] Comment on above: Performed By: #### L 501.2400, L100.0500, L101.9900, M100.2200, L501.6710, L400.2010 ####[facility] [address] [place], [address] Erythrocyte distribution wid th standard deviationOrdered By: Patt Jones on 01-16-2025 Erythrocyte distribution width (RBC) [Ratio] 54.8 fl High 35.1-43.9 [facility] Erythrocyte sedimentation ra teOrdered By: Patt Jones on 01-16-2025 ESR (Bld) [Velocity] 18 mm/h 0-30 [facility] Hemoglobin measurementOrdere d By: Patt Jones on 01-16-2025 Hemoglobin (Bld) [Mass/Vol] 11.8 g/dL Low 12.0-15.0 [facility] Comment on above: Performed By: #### L 501.2400, L100.0500, L101.9900, M100.2200, L501.6710, L400.2010 ####[facility] [address] [place], [place], [phone] Ketones Test strip Ql (U)Ord ered By: Patt Jones on 01-16-2025 Ketones Ql (U) Negative Negative [facility] MCV (mean corpuscular volume ) determinationOrdered By: Patt Jones on 01-16-2025 MCV (RBC) [Entitic vol] 89.1 fL Normal 81-99 [facility] Comment on above: Performed By: #### L 501.2400, L100.0500, L101.9900, M100.2200, L501.6710, L400.2010 ####[facility] [address] [place], [place], [phone] Mean corpuscular hemoglobin (MCH) determinationOrdered By: Patt Jones on 01-16-2025 MCH (RBC) [Entitic mass] 29.9 pg Normal 27.0-32.0 [facility] Comment on above: Performed By: #### L 501.2400, L100.0500, L101.9900, M100.2200, L501.6710, L400.2010 ####[facility] [address] [place], [place], [id number] Mean corpuscular hemoglobin concentration (MCHC) determinationOrdered By: Patt Jones on 01-16-2025 MCHC (RBC) [Mass/Vol] 33.5 g/dL Normal 32-36 [facility] Comment on above: Performed By: #### L 501.2400, L100.0500, L101.9900, M100.2200, L501.6710, L400.2010 ####[facility] [address] [place], [place], [id number] Mean platelet volume determi nationOrdered By: Patt Jones on 01-16-2025 Platelet mean volume (Bld) [Entitic vol] 9.3 fL Normal 6.2-12.0 [facility] Comment on above: Performed By: #### L 501.2400, L100.0500, L101.9900, M100.2200, L501.6710, L400.2010 ####[facility] [address] [place], [place], [id number] Nitrite Test strip Ql (U)Ord ered By: Patt Jones on 01-16-2025 Nitrite Ql (U) Negative Negative [facility] Platelet countOrdered By: Sudarshan Jones on 01-16-2025 Platelets (Bld) [#/Vol] 267 10*3/uL Normal 150-450 [facility] Comment on above: Performed By: #### L 501.2400, L100.0500, L101.9900, M100.2200, L501.6710, L400.2010 ####[facility] [address] [place], [place], [phone] Protein Test strip Ql (U)Ord ered By: Patt Jones on 01-16-2025 Protein Ql (U) 30 mg/dl High Negative [facility] Serum or plasma C reactive p rotein measurement (mass/volume)Ordered By: Patt Jones on 01-16-2025 CRP [Mass/Vol] mg/L 0.0-3.0 [facility] Serum or plasma amylase bennie urement (enzymatic activity/volume)Ordered By: Patt Jones on 01-16-2025 Amylase [Catalytic activity/Vol] 54 U/L 28-100 [facility] Urinalysis, Routine (Dipstic k)on 01-16-2025 BILIRUBIN URINE Negative Normal Negative [facility] Comment on above: Order Comment: Urine , Random Performed By: #### L 501.2400, L100.0500, L101.9900, M100.2200, L501.6710, L400.2010 ####[facility] [address] [place], [address] Clarity (U) Clear Normal Clear [facility] Comment on above: Order Comment: Urine , Random Performed By: #### L 501.2400, L100.0500, L101.9900, M100.2200, L501.6710, L400.2010 ####[facility] [address] [place], [address] Color (U) Straw Normal Yellow [facility] Comment on above: Order Comment: Urine , Random Performed By: #### L 501.2400, L100.0500, L101.9900, M100.2200, L501.6710, L400.2010 ####[facility] [address] [place], [address] GLUCOSE, UR Normal Normal Normal [facility] Comment on above: Order Comment: Urine , Random Performed By: #### L 501.2400, L100.0500, L101.9900, M100.2200, L501.6710, L400.2010 ####[facility] [address] [place], [address] KETONE UR Negative Normal Negative [facility] Comment on above: Order Comment: Urine , Random Performed By: #### L 501.2400, L100.0500, L101.9900, M100.2200, L501.6710, L400.2010 ####[facility] [address] [place], [address] LEUK ESTERASE Negative Normal Negative [facility] Comment on above: Order Comment: Urine , Random Performed By: #### L 501.2400, L100.0500, L101.9900, M100.2200, L501.6710, L400.2010 ####[facility] [address] [place], [address] Nitrite Ql (U) Negative Normal Negative [facility] Comment on above: Order Comment: Urine , Random Performed By: #### L 501.2400, L100.0500, L101.9900, M100.2200, L501.6710, L400.2010 ####[facility] [address] [place], [address] OCCULT BLOOD-UR 50 /ul Abnormal Negative [facility] Comment on above: Order Comment: Urine , Random Performed By: #### L 501.2400, L100.0500, L101.9900, M100.2200, L501.6710, L400.2010 ####[facility] [address] [place], [address] pH UR 6.5 Normal 5.0 - 8.0 [facility] Comment on above: Order Comment: Urine , Random Performed By: #### L 501.2400, L100.0500, L101.9900, M100.2200, L501.6710, L400.2010 ####[facility] [address] [place], [address] PROT DIPSTX 30 mg/dl Abnormal Negative [facility] Comment on above: Order Comment: Urine , Random Performed By: #### L 501.2400, L100.0500, L101.9900, M100.2200, L501.6710, L400.2010 ####[facility] [address] [place], [address] SP.GR. DIPSTX 1.010 Normal 1.002-1.03 0 [facility] Comment on above: Order Comment: Urine , Random Performed By: #### L 501.2400, L100.0500, L101.9900, M100.2200, L501.6710, L400.2010 ####[facility] [address] [place], [address] UROBILI Normal Normal Normal [facility] Comment on above: Order Comment: Urine , Random Performed By: #### L 501.2400, L100.0500, L101.9900, M100.2200, L501.6710, L400.2010 ####[facility] [address] [place], [address] Urine clarityOrdered By: Zahira Jones on 01-16-2025 Clarity (U) Clear Clear [facility] Urine color determinationOrd ered By: Patt Jones on 01-16-2025 Color (U) Straw Yellow [facility] Urine cultureOrdered By: Zahira Jones on 01-16-2025 Bacteria identified Cx Nom (U) GNR lactose director cardiology Abnormal [facility] Bacteria identified Cx Nom (U) Positive Abnormal [facility] Urine glucose detectionOrder ed By: Patt Jones on 01-16-2025 Glucose Ql (U) Normal mg/dl Normal [facility] Urine leukocyte esterase det ection by dipstickOrdered By: Patt Jones on 01-16-2025 Leukocyte esterase Test strip Ql (U) Negative Negative [facility] Urine pHOrdered By: Patt Jones on 01-16-2025 pH (U) 6.5 [pH] 5.0 - 8.0 [facility] Urine specific gravity measu rementOrdered By: Patt Jones on 01-16-2025 Specific gravity (U) [Rel density] 1.010 1.002-1.03 0 [facility] Urine urobilinogen measureme ntOrdered By: Patt Jones on 01-16-2025 Urobilinogen Ql (U) Normal mg/dl Normal [facility] White blood cell (WBC) count Ordered By: Patt Jonse on 01-16-2025 WBC (Bld) [#/Vol] 5.3 10*3/uL Normal 4.4-11.0 [facility] Comment on above: Performed By: #### L 501.2400, L100.0500, L101.9900, M100.2200, L501.6710, L400.2010 ####[facility] [address] [place], [address] Absolute lymphocyte countOrd ered By: Ramu Romero on 01-12-2025 Lymphocytes Auto (Unsp spec) [#/Vol] 1.53 10*3/uL 0.83-4.51 [facility] Absolute neutrophil countOrd ered By: Ramushelly Romero on 01-12-2025 Neutrophils (Bld) [#/Vol] 5.3 10*3/uL 2.0-7.7 [facility] Anion gap in Serum or Plasma Ordered By: Ramu Romero on 01-12-2025 Anion gap [Moles/Vol] 11 mmol/L 5-15 [facility] Automated lymphocyte count a s percentage of total leukocytesOrdered By: Ramu Romero on 01-12-2025 Lymphocytes/100 WBC Auto (Unsp spec) 20.3 % 19-41 [facility] BUN/creatinine ratioOrdered By: Ramushelly Romero on 01-12-2025 Urea nitrogen/Creatinine [Mass ratio] 26.2 mg/mg High 10-20 [facility] Basophil percentageOrdered B y: Ramu Romero on 01-12-2025 Basophils/100 WBC (Bld) 0.5 % 0-1 [facility] Bilirubin, totalOrdered By: Ramu Romero on 01-12-2025 Bilirubin [Mass/Vol] 0.57 mg/dL 0.00-1.30 [facility] CBC W/Diff, Automatedon 01-02 Absolute Lymph 1.53 X10 3/uL Normal 0.83-4.51 [facility] Comment on above: Performed By: #### L 100.0100, L501.2450, L500.4050 ####[facility] [address] [place], [address] Absolute Neut 5.3 X10 3/uL Normal 2.0-7.7 [facility] Comment on above: Performed By: #### L 100.0100, L501.2450, L500.4050 ####[facility] [address] [place], [address] Basophils/100 WBC (Bld) 0.5 % Normal 0-1 [facility] Comment on above: Performed By: #### L 100.0100, L501.2450, L500.4050 ####[facility] [address] [place], [address] Eosinophils/100 WBC (Bld) 0.5 % Normal 0-5 [facility] Comment on above: Performed By: #### L 100.0100, L501.2450, L500.4050 ####[facility] [address] [place], [address] Erythrocyte distribution width (RBC) [Ratio] 17.7 % High 11.6-14.6 [facility] Comment on above: Performed By: #### L 100.0100, L501.2450, L500.4050 ####[facility] [address] [place], [address] Hematocrit (Bld) [Volume fraction] 32.7 % Low 37-47 [facility] Comment on above: Performed By: #### L 100.0100, L501.2450, L500.4050 ####[facility] [address] [place], [address] Hemoglobin (Bld) [Mass/Vol] 10.7 g/dL Low 12.0-15.0 [facility] Comment on above: Performed By: #### L 100.0100, L501.2450, L500.4050 ####[facility] [address] [place], [address] IG% 0.400 Normal 0.0-0.9 [facility] Comment on above: Result Comment: IG% - Immature Granulocytes (promyelocytes, myelocytes andmetamyelocytes) > 1% indicates that a LEFT SHIFT is Present. Performed By: #### L 100.0100, L501.2450, L500.4050 ####[facility] [address] [place], [address] Lymphocytes/100 WBC (Bld) 20.3 % Normal 19-41 [facility] Comment on above: Performed By: #### L 100.0100, L501.2450, L500.4050 ####[facility] [address] [place], [address] MCH (RBC) [Entitic mass] 29.7 pg Normal 27.0-32.0 [facility] Comment on above: Performed By: #### L 100.0100, L501.2450, L500.4050 ####[facility] [address] [place], [address] MCHC (RBC) [Mass/Vol] 32.7 g/dL Normal 32-36 [facility] Comment on above: Performed By: #### L 100.0100, L501.2450, L500.4050 ####[facility] [address] [place], [address] MCV (RBC) [Entitic vol] 90.8 fL Normal 81-[address] [facility] Comment on above: Performed By: #### L 100.0100, L501.2450, L500.4050 ####[facility] [address] [place], [address] Monocytes/100 WBC (Bld) 8.6 % Normal 0-10 [facility] Comment on above: Performed By: #### L 100.0100, L501.2450, L500.4050 ####[facility] [address] [place], [address] Neutrophils/100 WBC (Bld) 69.7 % Normal 47-70 [facility] Comment on above: Performed By: #### L 100.0100, L501.2450, L500.4050 ####[facility] [address] [place], [address] Nucleated RBC (Bld) [#/Vol] 0 10*3/uL Normal 0-5 [facility] Comment on above: Performed By: #### L 100.0100, L501.2450, L500.4050 ####[facility] [address] [place], [address] Platelet mean volume (Bld) [Entitic vol] 8.9 fL Normal 6.2-12.0 [facility] Comment on above: Performed By: #### L 100.0100, L501.2450, L500.4050 ####[facility] [address] [place], [address] Platelets (Bld) [#/Vol] 240 10*3/uL Normal 150-450 [facility] Comment on above: Performed By: #### L 100.0100, L501.2450, L500.4050 ####[facility] [address] [place], [address] RBC (Bld) [#/Vol] 3.60 10*6/uL Low 4.2-5.4 [facility] Comment on above: Performed By: #### L 100.0100, L501.2450, L500.4050 ####[facility] [address] [place], [address] RDW SD 59.3 fl High 35.1-43.9 [facility] Comment on above: Performed By: #### L 100.0100, L501.2450, L500.4050 ####[facility] [address] [place], [address] WBC (Bld) [#/Vol] 7.5 10*3/uL Normal 4.4-11.0 [facility] Comment on above: Performed By: #### L 100.0100, L501.2450, L500.4050 ####[facility] [address] [place], [address] Carbon dioxide, total [Moles /volume] in Central venous bloodOrdered By: Ramu Romero on 01-12-2025 CO2 [Moles/Vol] 23.0 mmol/L 21.0-32.0 [facility] Chloride assayOrdered By: Eufemia Romero on 01-12-2025 Chloride [Moles/Vol] 109 mmol/L High 98-108 [facility] Comprehensive Metabolic Prof ilon 01-12-2025 Albumin [Mass/Vol] 4.0 g/dL Normal 3.4-4.8 [facility] Comment on above: Performed By: #### L 100.0100, L501.2450, L500.4050 ####[facility] [address] [place], [address] Albumin/Globulin [Mass ratio] 1.4 {ratio} Normal 0.9-2.4 [facility] Comment on above: Performed By: #### L 100.0100, L501.2450, L500.4050 ####[facility] [address] [place], [address] ALK PHOS 116 U/L High 35-104 [facility] Comment on above: Performed By: #### L 100.0100, L501.2450, L500.4050 ####[facility] [address] [place], [address] ALT [Catalytic activity/Vol] 14 U/L Normal <=34 [facility] Comment on above: Performed By: #### L 100.0100, L501.2450, L500.4050 ####[facility] [address] [place], [address] AST [Catalytic activity/Vol] 19 U/L Normal <=31 [facility] Comment on above: Performed By: #### L 100.0100, L501.2450, L500.4050 ####[facility] [address] [place], [address] Bilirubin [Mass/Vol] 0.57 mg/dL Normal 0.00-1.30 [facility] Comment on above: Performed By: #### L 100.0100, L501.2450, L500.4050 ####[facility] [address] [place], [address] BUN/CRE 26.2 RATIO High 10-20 [facility] Comment on above: Performed By: #### L 100.0100, L501.2450, L500.4050 ####[facility] [address] [place], [address] Calcium [Mass/Vol] 9.6 mg/dL Normal 7.6-11.0 [facility] Comment on above: Performed By: #### L 100.0100, L501.2450, L500.4050 ####[facility] [address] [place], [address] Chloride [Moles/Vol] 109 mmol/L High 98-108 [facility] Comment on above: Performed By: #### L 100.0100, L501.2450, L500.4050 ####[facility] [address] [place], [address] CO2 [Moles/Vol] 23.0 mmol/L Normal 21.0-32.0 [facility] Comment on above: Performed By: #### L 100.0100, L501.2450, L500.4050 ####[facility] [address] [place], [address] Creatinine [Mass/Vol] 0.95 mg/dL Normal 0.70-1.20 [facility] Comment on above: Performed By: #### L 100.0100, L501.2450, L500.4050 ####[facility] [address] [place], [address] ECRCL 48.14 ml/min Low 50-250 [facility] Comment on above: Performed By: #### L 100.0100, L501.2450, L500.4050 ####[facility] [address] [place], [address] GAP 11 Normal 5-15 [facility] Comment on above: Performed By: #### L 100.0100, L501.2450, L500.4050 ####[facility] [address] [place], [address] GFR/1.73 sq M.predicted among non-blacks MDRD (S/P/Bld) [Vol rate/Area] 64 mL/min/{1.73_m2} Normal >60 [facility] Comment on above: Result Comment: mL/m in/1.73m2 CKD-EPI Creatinine Equation (2020) Performed By: #### L 100.0100, L501.2450, L500.4050 ####[facility] [address] [place], [address] Globulin (S) [Mass/Vol] 2.8 g/dL Normal 2.2-4.[address] [facility] Comment on above: Performed By: #### L 100.0100, L501.2450, L500.4050 ####[facility] [address] [place], [address] Glucose [Mass/Vol] 111 mg/dL High 70-99 [facility] Comment on above: Performed By: #### L 100.0100, L501.2450, L500.4050 ####[facility] [address] [place], [address] Potassium [Moles/Vol] 3.9 mmol/L Normal 3.3-5.1 [facility] Comment on above: Result Comment: Hemo lysis present, Results??could be affected.?? Performed By: #### L 100.0100, L501.2450, L500.4050 ####[facility] [address] [place], [address] Sodium [Moles/Vol] 142 mmol/L Normal 133-145 [facility] Comment on above: Performed By: #### L 100.0100, L501.2450, L500.4050 ####[facility] [address] [place], [address] T PROT 6.8 g/dL Normal 5.9-8.4 [facility] Comment on above: Performed By: #### L 100.0100, L501.2450, L500.4050 ####[facility] [address] [place], [address] Urea nitrogen [Mass/Vol] 25 mg/dL High 4-19 [facility] Comment on above: Performed By: #### L 100.0100, L501.2450, L500.4050 ####[facility] [address] [place], [address] Emergency Department Summary on 01-12-2025 Emergency Department Summary Normal [facility] Eosinophil percentageOrdered By: Ramu Romero on 01-12-2025 Eosinophils/100 WBC (Bld) 0.5 % 0-5 [facility] Erythrocyte distribution wid th ratioOrdered By: Ramu Romero on 01-12-2025 Erythrocyte distribution width (RBC) [Ratio] 17.7 % High 11.6-14.6 [facility] Erythrocyte distribution wid th standard deviationOrdered By: Ramu Romero on 01-12-2025 Erythrocyte distribution width (RBC) [Ratio] 59.3 fl High 35.1-43.9 [facility] Glomerular filtration rate ( GFR) estimation/1.73 sq m using serum, plasma, or whole bOrdered By: Ramu Romero on 01-12-2025 GFR/1.73 sq M.predicted among non-blacks MDRD (S/P/Bld) [Vol rate/Area] 64 mL/min/{1.73_m2} >60 [facility] Comment on above: mL/min/1.73m2 CKD-EP I Creatinine Equation (2020) Hematocrit Auto (Bld) [Volum e fraction]Ordered By: Ramu Romero on 01-12-2025 Hematocrit (Bld) [Volume fraction] 32.7 % Low 37-47 [facility] Hemoglobin measurementOrdere d By: Ramu Romero on 01-12-2025 Hemoglobin (Bld) [Mass/Vol] 10.7 g/dL Low 12.0-15.0 [facility] Immature granulocytes/100 WB C Auto (Bld)Ordered By: Ramu Romero on 01-12-2025 Immature granulocytes/100 WBC (Bld) 0.400 % 0.0-0.9 [facility] Comment on above: IG% - Immature Granu locytes (promyelocytes, myelocytes and metamyelocytes) > 1% indicates that a LEFT SHIFT is Present. Laboratory - Chemistry and C hemistry - challengeOrdered By: Ramu Romero on 01-12-2025 AST [Catalytic activity/Vol] 19 U/L <32 [facility] Lipaseon 01-12-2025 Lipase [Catalytic activity/Vol] 32 U/L Normal 13-75 [facility] Comment on above: Result Comment: Pilar esparza note:LIPASE revised reference range effective 22.New Lipase methodology. Expected to produce lower valuesthan the previous assay method.NEW Reference Range: 13 - 75 U/L Performed By: #### L 100.0100, L501.2450, L500.4050 ####[facility] [address] [place], [place], [id number] Lipase measurementOrdered By : Ramu Romero on 01-12-2025 Lipase [Catalytic activity/Vol] 32 U/L 13-75 [facility] Comment on above: Please note:LIPASE r evised reference range effective 22. New Lipase methodology. Expected to produce lower values than the previous assay method. NEW Reference Range: 13 - 75 U/L MCV (mean corpuscular volume ) determinationOrdered By: Ramu Romero on 01-12-2025 MCV (RBC) [Entitic vol] 90.8 fL 81-[address] [facility] Mean corpuscular hemoglobin (MCH) determinationOrdered By: Ramu Romero on 01-12-2025 MCH (RBC) [Entitic mass] 29.7 pg 27.0-32.0 [facility] Mean corpuscular hemoglobin concentration (MCHC) determinationOrdered By: Ramu Romero on 01-12-2025 MCHC (RBC) [Mass/Vol] 32.7 g/dL 32-36 [facility] Mean platelet volume determi nationOrdered By: Ramu Romero on 01-12-2025 Platelet mean volume (Bld) [Entitic vol] 8.9 fL 6.2-12.0 [facility] Monocyte percentageOrdered B y: Ramu Romero on 01-12-2025 Monocytes/100 WBC (Bld) 8.6 % 0-10 [facility] Neutrophil percentageOrdered By: Ramu Romero on 01-12-2025 Neutrophils/100 WBC (Bld) 69.7 % 47-70 [facility] Nucleated red blood cell per centageOrdered By: Ramu Romero on 01-12-2025 Nucleated RBC/100 WBC (Bld) [Ratio] 0 % 0-5 [facility] Platelet countOrdered By: Eufemia Romero on 01-12-2025 Platelets (Bld) [#/Vol] 240 10*3/uL 150-450 [facility] Potassium measurement (mass/ volume)Ordered By: Ramu Romero on 01-12-2025 Potassium (Unsp spec) [Mass/Vol] 3.9 mmol/L 3.3-5.1 [facility] Comment on above: Hemolysis present, R esults could be affected. RBC Auto (Bld) [#/Vol]Ordere d By: Ramu Romero on 01-12-2025 RBC (Bld) [#/Vol] 3.60 10*6/uL Low 4.2-5.4 [facility] Serum creatinine measurement (mass/volume)Ordered By: Ramu Romero on 01-12-2025 Creatinine [Mass/Vol] 0.95 mg/dL 0.70-1.20 [facility] Serum globulin measurementOr dered By: Ramu Romero on 01-12-2025 Globulin (S) [Mass/Vol] 2.8 g/dL 2.2-4.2 [facility] Serum glucose measurement (m ass/volume)Ordered By: Ramu Romero on 01-12-2025 Glucose [Mass/Vol] 111 mg/dL High 70-99 [facility] Serum or plasma alanine graves otransferase (ALT) measurementOrdered By: Ramu Romero on 01-12-2025 ALT [Catalytic activity/Vol] 14 U/L <35 [facility] Serum or plasma albumin bennie urement (mass/volume)Ordered By: Ramu Romero on 01-12-2025 Albumin [Mass/Vol] 4.0 g/dL 3.4-4.8 [facility] Serum or plasma albumin/glob ulin mass ratioOrdered By: Ramu Romero on 01-12-2025 Albumin/Globulin [Mass ratio] 1.4 {ratio} 0.9-2.4 [facility] Serum or plasma alkaline coy sphatase measurementOrdered By: Ramu Romero on 01-12-2025 ALP [Catalytic activity/Vol] 116 U/L High 35-104 [facility] Serum or plasma calcium bennie urement (mass/volume)Ordered By: Ramu Romero on 01-12-2025 Calcium [Mass/Vol] 9.6 mg/dL 7.6-11.0 [facility] Serum or plasma urea nitroge n measurement (mass/volume)Ordered By: Ramu Romero on 01-12-2025 Urea nitrogen [Mass/Vol] 25 mg/dL High 4-19 [facility] Sodium levelOrdered By: Anderson Romero on 01-12-2025 Sodium [Moles/Vol] 142 mmol/L 133-145 [facility] Total proteinOrdered By: Brian Romero on 01-12-2025 Protein [Mass/Vol] 6.8 g/dL 5.9-8.4 [facility] White blood cell (WBC) count Ordered By: Ramu Romero on 01-12-2025 WBC (Bld) [#/Vol] 7.5 10*3/uL 4.4-11.0 [facility] Absolute lymphocyte countOrd ered By: Manisha Navas on 01-03-2025 Lymphocytes Auto (Unsp spec) [#/Vol] 1.14 10*3/uL 0.83-4.51 [facility] Absolute neutrophil countOrd ered By: Manisha Navas on 01-03-2025 Neutrophils (Bld) [#/Vol] 2.7 10*3/uL 2.0-7.7 [facility] Anion gap in Serum or Plasma Ordered By: Manisha Navas on 01-03-2025 Anion gap [Moles/Vol] 11 mmol/L 5-15 [facility] Automated lymphocyte count a s percentage of total leukocytesOrdered By: Manisha Navas on 01-03-2025 Lymphocytes/100 WBC Auto (Unsp spec) 25.6 % 19-41 [facility] BUN/creatinine ratioOrdered By: Manishating Navas on 01-03-2025 Urea nitrogen/Creatinine [Mass ratio] 18.6 mg/mg 10-20 [facility] Basophil percentageOrdered B y: Manisha Navas on 01-03-2025 Basophils/100 WBC (Bld) 0.9 % 0-1 [facility] Bilirubin, totalOrdered By: Manisha Navas on 01-03-2025 Bilirubin [Mass/Vol] 1.20 mg/dL 0.00-1.30 [facility] CBC W/Diff, Automatedon Absolute Lymph 1.14 X10 3/uL Normal 0.83-4.51 [facility] Comment on above: Performed By: #### L 500.4050, L100.0100 ####[facility] [address] [place], [place], [id number] Absolute Neut 2.7 X10 3/uL Normal 2.0-7.7 [facility] Comment on above: Performed By: #### L 500.4050, L100.0100 ####[facility] [address] [place], [address] Basophils/100 WBC (Bld) 0.9 % Normal 0-1 [facility] Comment on above: Performed By: #### L 500.4050, L100.0100 ####[facility] [address] [place], [address] Eosinophils/100 WBC (Bld) 1.3 % Normal 0-5 [facility] Comment on above: Performed By: #### L 500.4050, L100.0100 ####[facility] [address] [place], [address] Erythrocyte distribution width (RBC) [Ratio] 17.8 % High 11.6-14.6 [facility] Comment on above: Performed By: #### L 500.4050, L100.0100 ####[facility] [address] [place], [address] Hematocrit (Bld) [Volume fraction] 36.4 % Low 37-47 [facility] Comment on above: Performed By: #### L 500.4050, L100.0100 ####[facility] [address] [place], [address] Hemoglobin (Bld) [Mass/Vol] 11.8 g/dL Low 12.0-15.0 [facility] Comment on above: Performed By: #### L 500.4050, L100.0100 ####[facility] [address] [place], [address] IG% 0.200 Normal 0.0-0.9 [facility] Comment on above: Result Comment: IG% - Immature Granulocytes (promyelocytes, myelocytes andmetamyelocytes) > 1% indicates that a LEFT SHIFT is Present. Performed By: #### L 500.4050, L100.0100 ####[facility] [address] [place], [address] Lymphocytes/100 WBC (Bld) 25.6 % Normal 19-41 [facility] Comment on above: Performed By: #### L 500.4050, L100.0100 ####[facility] [address] [place], [address] MCH (RBC) [Entitic mass] 28.9 pg Normal 27.0-32.0 [facility] Comment on above: Performed By: #### L 500.4050, L100.0100 ####[facility] [address] [place], [address] MCHC (RBC) [Mass/Vol] 32.4 g/dL Normal 32-36 [facility] Comment on above: Performed By: #### L 500.4050, L100.0100 ####[facility] [address] [place], [address] MCV (RBC) [Entitic vol] 89.2 fL Normal 81-[address] [facility] Comment on above: Performed By: #### L 500.4050, L100.0100 ####[facility] [address] [place], [address] Monocytes/100 WBC (Bld) 11.7 % High 0-10 [facility] Comment on above: Performed By: #### L 500.4050, L100.0100 ####[facility] [address] [place], [address] Neutrophils/100 WBC (Bld) 60.3 % Normal 47-70 [facility] Comment on above: Performed By: #### L 500.4050, L100.0100 ####[facility] [address] [place], [address] Nucleated RBC (Bld) [#/Vol] 0 10*3/uL Normal 0-5 [facility] Comment on above: Performed By: #### L 500.4050, L100.0100 ####[facility] [address] [place], [address] Platelet mean volume (Bld) [Entitic vol] 9.1 fL Normal 6.2-12.0 [facility] Comment on above: Performed By: #### L 500.4050, L100.0100 ####[facility] [address] [place], [address] Platelets (Bld) [#/Vol] 263 10*3/uL Normal 150-450 [facility] Comment on above: Performed By: #### L 500.4050, L100.0100 ####[facility] [address] [place], [address] RBC (Bld) [#/Vol] 4.08 10*6/uL Low 4.2-5.4 [facility] Comment on above: Performed By: #### L 500.4050, L100.0100 ####[facility] [address] [place], [address] RDW SD 58.0 fl High 35.1-43.9 [facility] Comment on above: Performed By: #### L 500.4050, L100.0100 ####[facility] [address] [place], [address] WBC (Bld) [#/Vol] 4.5 10*3/uL Normal 4.4-11.0 [facility] Comment on above: Performed By: #### L 500.4050, L100.0100 ####[facility] [address] [place], [address] Carbon dioxide, total [Moles /volume] in Central venous bloodOrdered By: Manisha Navas on 01-03-2025 CO2 [Moles/Vol] 26.5 mmol/L 21.0-32.0 [facility] Chloride assayOrdered By: Tony Navas on 01-03-2025 Chloride [Moles/Vol] 102 mmol/L 98-108 [facility] Comprehensive Metabolic Prof ilon 01-03-2025 Albumin [Mass/Vol] 4.3 g/dL Normal 3.4-4.8 [facility] Comment on above: Performed By: #### L 500.4050, L100.0100 ####[facility] [address] [place], [address] Albumin/Globulin [Mass ratio] 1.6 {ratio} Normal 0.9-2.4 [facility] Comment on above: Performed By: #### L 500.4050, L100.0100 ####[facility] [address] [place], [address] ALK PHOS 137 U/L High 35-104 [facility] Comment on above: Performed By: #### L 500.4050, L100.0100 ####[facility] [address] [place], [address] ALT [Catalytic activity/Vol] 29 U/L Normal <=34 [facility] Comment on above: Performed By: #### L 500.4050, L100.0100 ####[facility] [address] [place], [address] AST [Catalytic activity/Vol] 26 U/L Normal <=31 [facility] Comment on above: Performed By: #### L 500.4050, L100.0100 ####[facility] [address] [place], [address] Bilirubin [Mass/Vol] 1.20 mg/dL Normal 0.00-1.30 [facility] Comment on above: Performed By: #### L 500.4050, L100.0100 ####[facility] [address] [place], [address] BUN/CRE 18.6 RATIO Normal 10-20 [facility] Comment on above: Performed By: #### L 500.4050, L100.0100 ####[facility] [address] [place], [address] Calcium [Mass/Vol] 10.1 mg/dL Normal 7.6-11.0 [facility] Comment on above: Performed By: #### L 500.4050, L100.0100 ####[facility] [address] [place], [address] Chloride [Moles/Vol] 102 mmol/L Normal 98-108 [facility] Comment on above: Performed By: #### L 500.4050, L100.0100 ####[facility] [address] [place], [address] CO2 [Moles/Vol] 26.5 mmol/L Normal 21.0-32.0 [facility] Comment on above: Performed By: #### L 500.4050, L100.0100 ####[facility] [address] [place], [address] Creatinine [Mass/Vol] 0.87 mg/dL Normal 0.70-1.20 [facility] Comment on above: Performed By: #### L 500.4050, L100.0100 ####[facility] [address] [place], [address] GAP 11 Normal 5-15 [facility] Comment on above: Performed By: #### L 500.4050, L100.0100 ####[facility] [address] [place], [address] GFR/1.73 sq M.predicted among non-blacks MDRD (S/P/Bld) [Vol rate/Area] 71 mL/min/{1.73_m2} Normal >60 [facility] Comment on above: Result Comment: mL/m in/1.73m2 CKD-EPI Creatinine Equation (2020) Performed By: #### L 500.4050, L100.0100 ####[facility] [address] [place], [address] Globulin (S) [Mass/Vol] 2.7 g/dL Normal 2.2-4.[address] [facility] Comment on above: Performed By: #### L 500.4050, L100.0100 ####[facility] [address] [place], [address] Glucose [Mass/Vol] 97 mg/dL Normal 70-99 [facility] Comment on above: Performed By: #### L 500.4050, L100.0100 ####[facility] [address] [place], [address] Potassium [Moles/Vol] 3.8 mmol/L Normal 3.3-5.1 [facility] Comment on above: Performed By: #### L 500.4050, L100.0100 ####[facility] [address] [place], [address] Sodium [Moles/Vol] 139 mmol/L Normal 133-145 [facility] Comment on above: Performed By: #### L 500.4050, L100.0100 ####[facility] [address] [place], [address] T PROT 7.0 g/dL Normal 5.9-8.4 [facility] Comment on above: Performed By: #### L 500.4050, L100.0100 ####[facility] [address] [place], [address] Urea nitrogen [Mass/Vol] 16 mg/dL Normal 4-19 [facility] Comment on above: Performed By: #### L 500.4050, L100.0100 ####[facility] [address] [place], [address] Eosinophil percentageOrdered By: Manisha Navas on 01-03-2025 Eosinophils/100 WBC (Bld) 1.3 % 0-5 [facility] Erythrocyte distribution wid th ratioOrdered By: Manisha Navas on 01-03-2025 Erythrocyte distribution width (RBC) [Ratio] 17.8 % High 11.6-14.6 [facility] Erythrocyte distribution wid th standard deviationOrdered By: Manisha Navas on 01-03-2025 Erythrocyte distribution width (RBC) [Ratio] 58.0 fl High 35.1-43.9 [facility] Glomerular filtration rate ( GFR) estimation/1.73 sq m using serum, plasma, or whole bOrdered By: Manisha Navas on 01-03-2025 GFR/1.73 sq M.predicted among non-blacks MDRD (S/P/Bld) [Vol rate/Area] 71 mL/min/{1.73_m2} >60 [facility] Comment on above: mL/min/1.73m2 CKD-EP I Creatinine Equation (2020) Hematocrit Auto (Bld) [Volum e fraction]Ordered By: Manisha Navas on 01-03-2025 Hematocrit (Bld) [Volume fraction] 36.4 % Low 37-47 [facility] Hemoglobin measurementOrdere d By: Manisha Navas on 01-03-2025 Hemoglobin (Bld) [Mass/Vol] 11.8 g/dL Low 12.0-15.0 [facility] Immature granulocytes/100 WB C Auto (Bld)Ordered By: Manisha Navas on 01-03-2025 Immature granulocytes/100 WBC (Bld) 0.200 % 0.0-0.9 [facility] Comment on above: IG% - Immature Granu locytes (promyelocytes, myelocytes and metamyelocytes) > 1% indicates that a LEFT SHIFT is Present. Laboratory - Chemistry and C hemistry - challengeOrdered By: Manisha Navas on 01-03-2025 AST [Catalytic activity/Vol] 26 U/L <32 [facility] MCV (mean corpuscular volume ) determinationOrdered By: Manisha Navas on 01-03-2025 MCV (RBC) [Entitic vol] 89.2 fL 81-99 [facility] Mean corpuscular hemoglobin (MCH) determinationOrdered By: Manisha Navas on 01-03-2025 MCH (RBC) [Entitic mass] 28.9 pg 27.0-32.0 [facility] Mean corpuscular hemoglobin concentration (MCHC) determinationOrdered By: Manisha Navas on 01-03-2025 MCHC (RBC) [Mass/Vol] 32.4 g/dL 32-36 [facility] Mean platelet volume determi nationOrdered By: Manisha Navas on 01-03-2025 Platelet mean volume (Bld) [Entitic vol] 9.1 fL 6.2-12.0 [facility] Monocyte percentageOrdered B y: Manisha Navas on 01-03-2025 Monocytes/100 WBC (Bld) 11.7 % High 0-10 [facility] Neutrophil percentageOrdered By: Manisha Navas on 01-03-2025 Neutrophils/100 WBC (Bld) 60.3 % 47-70 [facility] Nucleated red blood cell per centageOrdered By: Manisha Navas on 01-03-2025 Nucleated RBC/100 WBC (Bld) [Ratio] 0 % 0-5 [facility] Platelet countOrdered By: Tony Navas on 01-03-2025 Platelets (Bld) [#/Vol] 263 10*3/uL 150-450 [facility] Potassium measurement (mass/ volume)Ordered By: Manisha Navas on 01-03-2025 Potassium (Unsp spec) [Mass/Vol] 3.8 mmol/L 3.3-5.1 [facility] RBC Auto (Bld) [#/Vol]Ordere d By: Manisha Navas on 01-03-2025 RBC (Bld) [#/Vol] 4.08 10*6/uL Low 4.2-5.4 [facility] Serum creatinine measurement (mass/volume)Ordered By: Manisha Navas on 01-03-2025 Creatinine [Mass/Vol] 0.87 mg/dL 0.70-1.20 [facility] Serum globulin measurementOr dered By: Manisha Navas on 01-03-2025 Globulin (S) [Mass/Vol] 2.7 g/dL 2.2-4.2 [facility] Serum glucose measurement (m ass/volume)Ordered By: Manisha Navas on 01-03-2025 Glucose [Mass/Vol] 97 mg/dL 70-99 [facility] Serum or plasma alanine graves otransferase (ALT) measurementOrdered By: Manisha Navas on 01-03-2025 ALT [Catalytic activity/Vol] 29 U/L <35 [facility] Serum or plasma albumin bennie urement (mass/volume)Ordered By: Manisha Navas on 01-03-2025 Albumin [Mass/Vol] 4.3 g/dL 3.4-4.8 [facility] Serum or plasma albumin/glob ulin mass ratioOrdered By: Manisha Navas on 01-03-2025 Albumin/Globulin [Mass ratio] 1.6 {ratio} 0.9-2.4 [facility] Serum or plasma alkaline coy sphatase measurementOrdered By: Manisha Navas on 01-03-2025 ALP [Catalytic activity/Vol] 137 U/L High 35-104 [facility] Serum or plasma calcium bennie urement (mass/volume)Ordered By: Manisha Navas on 01-03-2025 Calcium [Mass/Vol] 10.1 mg/dL 7.6-11.0 [facility] Serum or plasma urea nitroge n measurement (mass/volume)Ordered By: Manisha Navas on 01-03-2025 Urea nitrogen [Mass/Vol] 16 mg/dL 4-19 [facility] Sodium levelOrdered By: Pradip Navas on 01-03-2025 Sodium [Moles/Vol] 139 mmol/L 133-145 [facility] Total proteinOrdered By: Judie Navas on 01-03-2025 Protein [Mass/Vol] 7.0 g/dL 5.9-8.4 [facility] White blood cell (WBC) count Ordered By: Manisha Navas on 01-03-2025 WBC (Bld) [#/Vol] 4.5 10*3/uL 4.4-11.0 [facility] Absolute lymphocyte countOrd ered By: Manisha Navas on 11-22-2024 Lymphocytes Auto (Unsp spec) [#/Vol] 1.64 10*3/uL 0.83-4.51 [facility] Absolute neutrophil countOrd ered By: Manisha Navas on 11-22-2024 Neutrophils (Bld) [#/Vol] 3.9 10*3/uL 2.0-7.7 [facility] Anion gap in Serum or Plasma Ordered By: Manisha Navas on 11-22-2024 Anion gap [Moles/Vol] 12 mmol/L 5- [facility] Automated lymphocyte count a s percentage of total leukocytesOrdered By: Manisha Navas on 11-22-2024 Lymphocytes/100 WBC Auto (Unsp spec) 26.7 % - [facility] BUN/creatinine ratioOrdered By: [facility] Y[facility] on 11-22-2024 Urea nitrogen/Creatinine [Mass ratio] 15.8 mg/mg 10- [facility] Basophil percentageOrdered B y: Manisha Navas on 11-22-2024 Basophils/100 WBC (Bld) 0.7 % 0-1 [facility] Bilirubin, totalOrdered By: Manisha Navas on 11-22-2024 Bilirubin [Mass/Vol] 0.64 mg/dL 0.00-1.30 [facility] CBC W/Diff, Automatedon 11-03 Absolute Lymph 1.64 X10 3/uL Normal 0.83-4.51 [facility] Comment on above: Performed By: #### L 100.0100, L500.4050 ####[facility] [address] [place], [address] Absolute Neut 3.9 X10 3/uL Normal 2.0-7.7 [facility] Comment on above: Performed By: #### L 100.0100, L500.4050 ####[facility] [address] [place], [address] Basophils/100 WBC (Bld) 0.7 % Normal 0-1 [facility] Comment on above: Performed By: #### L 100.0100, L500.4050 ####[facility] [address] [place], [address] Eosinophils/100 WBC (Bld) 0.2 % Normal 0-5 [facility] Comment on above: Performed By: #### L 100.0100, L500.4050 ####[facility] [address] [place], [address] Erythrocyte distribution width (RBC) [Ratio] 15.6 % High 11.6-14.6 [facility] Comment on above: Performed By: #### L 100.0100, L500.4050 ####[facility] [address] [place], [address] Hematocrit (Bld) [Volume fraction] 37.2 % Normal 37-47 [facility] Comment on above: Performed By: #### L 100.0100, L500.4050 ####[facility] [address] [place], [address] Hemoglobin (Bld) [Mass/Vol] 11.9 g/dL Low 12.0-15.0 [facility] Comment on above: Performed By: #### L 100.0100, L500.4050 ####[facility] [address] [place], [address] IG% 0.200 Normal 0.0-0.9 [facility] Comment on above: Result Comment: IG% - Immature Granulocytes (promyelocytes, myelocytes andmetamyelocytes) > 1% indicates that a LEFT SHIFT is Present. Performed By: #### L 100.0100, L500.4050 ####[facility] [address] [place], [address] Lymphocytes/100 WBC (Bld) 26.7 % Normal 19-41 [facility] Comment on above: Performed By: #### L 100.0100, L500.4050 ####[facility] [address] [place], [address] MCH (RBC) [Entitic mass] 27.9 pg Normal 27.0-32.0 [facility] Comment on above: Performed By: #### L 100.0100, L500.4050 ####[facility] [address] [place], [address] MCHC (RBC) [Mass/Vol] 32.0 g/dL Normal 32-36 [facility] Comment on above: Performed By: #### L 100.0100, L500.4050 ####[facility] [address] [place], [address] MCV (RBC) [Entitic vol] 87.1 fL Normal 81-[address] [facility] Comment on above: Performed By: #### L 100.0100, L500.4050 ####[facility] [address] [place], [address] Monocytes/100 WBC (Bld) 9.4 % Normal 0-[address] [facility] Comment on above: Performed By: #### L 100.0100, L500.4050 ####[facility] [address] [place], [address] Neutrophils/100 WBC (Bld) 62.8 % Normal 47-70 [facility] Comment on above: Performed By: #### L 100.0100, L500.4050 ####[facility] [address] [place], [address] Nucleated RBC (Bld) [#/Vol] 0 10*3/uL Normal 0-5 [facility] Comment on above: Performed By: #### L 100.0100, L500.4050 ####[facility] [address] [place], [address] Platelet mean volume (Bld) [Entitic vol] 9.2 fL Normal 6.2-12.0 [facility] Comment on above: Performed By: #### L 100.0100, L500.4050 ####[facility] [address] [place], [address] Platelets (Bld) [#/Vol] 297 10*3/uL Normal 150-450 [facility] Comment on above: Performed By: #### L 100.0100, L500.4050 ####[facility] [address] [place], [address] RBC (Bld) [#/Vol] 4.27 10*6/uL Normal 4.2-5.4 [facility] Comment on above: Performed By: #### L 100.0100, L500.4050 ####[facility] [address] [place], [address] RDW SD 49.1 fl High 35.1-43.9 [facility] Comment on above: Performed By: #### L 100.0100, L500.4050 ####[facility] [address] [place], [address] WBC (Bld) [#/Vol] 6.2 10*3/uL Normal 4.4-11.0 [facility] Comment on above: Performed By: #### L 100.0100, L500.4050 ####[facility] [address] [place], [address] Carbon dioxide, total [Moles /volume] in Central venous bloodOrdered By: Manisha Navas on 11-22-2024 CO2 [Moles/Vol] 26.4 mmol/L 21.0-32.0 [facility] Chloride assayOrdered By: Tony Navas on 11-22-2024 Chloride [Moles/Vol] 102 mmol/L 98-108 [facility] Comprehensive Metabolic Prof ilon 11-22-2024 Albumin [Mass/Vol] 4.1 g/dL Normal 3.4-4.8 [facility] Comment on above: Performed By: #### L 100.0100, L500.4050 ####[facility] [address] [place], [address] Albumin/Globulin [Mass ratio] 1.4 {ratio} Normal 0.9-2.4 [facility] Comment on above: Performed By: #### L 100.0100, L500.4050 ####[facility] [address] [place], [address] ALK PHOS 105 U/L High 35-104 [facility] Comment on above: Performed By: #### L 100.0100, L500.4050 ####[facility] [address] [place], [address] ALT [Catalytic activity/Vol] 11 U/L Normal <=34 [facility] Comment on above: Performed By: #### L 100.0100, L500.4050 ####[facility] [address] [place], [address] AST [Catalytic activity/Vol] 21 U/L Normal <=31 [facility] Comment on above: Performed By: #### L 100.0100, L500.4050 ####[facility] [address] [place], [address] Bilirubin [Mass/Vol] 0.64 mg/dL Normal 0.00-1.30 [facility] Comment on above: Performed By: #### L 100.0100, L500.4050 ####[facility] [address] [place], [address] BUN/CRE 15.8 RATIO Normal 10-20 [facility] Comment on above: Performed By: #### L 100.0100, L500.4050 ####[facility] [address] [place], [address] Calcium [Mass/Vol] 10.5 mg/dL Normal 7.6-11.0 [facility] Comment on above: Performed By: #### L 100.0100, L500.4050 ####[facility] [address] [place], [address] Chloride [Moles/Vol] 102 mmol/L Normal 98-108 [facility] Comment on above: Performed By: #### L 100.0100, L500.4050 ####[facility] [address] [place], [address] CO2 [Moles/Vol] 26.4 mmol/L Normal 21.0-32.0 [facility] Comment on above: Performed By: #### L 100.0100, L500.4050 ####[facility] [address] [place], [address] Creatinine [Mass/Vol] 0.88 mg/dL Normal 0.70-1.20 [facility] Comment on above: Performed By: #### L 100.0100, L500.4050 ####[facility] [address] [place], [address] GAP 12 Normal 5-15 [facility] Comment on above: Performed By: #### L 100.0100, L500.4050 ####[facility] [address] [place], [address] GFR/1.73 sq M.predicted among non-blacks MDRD (S/P/Bld) [Vol rate/Area] 70 mL/min/{1.73_m2} Normal >60 [facility] Comment on above: Result Comment: mL/m in/1.73m2 CKD-EPI Creatinine Equation (2020) Performed By: #### L 100.0100, L500.4050 ####[facility] [address] [place], [address] Globulin (S) [Mass/Vol] 3.0 g/dL Normal 2.2-4.[address] [facility] Comment on above: Performed By: #### L 100.0100, L500.4050 ####[facility] [address] [place], [address] Glucose [Mass/Vol] 89 mg/dL Normal 70-99 [facility] Comment on above: Performed By: #### L 100.0100, L500.4050 ####[facility] [address] [place], [address] Potassium [Moles/Vol] 4.1 mmol/L Normal 3.3-5.1 [facility] Comment on above: Performed By: #### L 100.0100, L500.4050 ####[facility] [address] [place], [address] Sodium [Moles/Vol] 140 mmol/L Normal 133-145 [facility] Comment on above: Performed By: #### L 100.0100, L500.4050 ####[facility] [address] [place], [address] T PROT 7.1 g/dL Normal 5.9-8.4 [facility] Comment on above: Performed By: #### L 100.0100, L500.4050 ####[facility] [address] [place], [address] Urea nitrogen [Mass/Vol] 14 mg/dL Normal 4-19 [facility] Comment on above: Performed By: #### L 100.0100, L500.4050 ####[facility] [address] [place], [address] Eosinophil percentageOrdered By: Manisha Navas on 11-22-2024 Eosinophils/100 WBC (Bld) 0.2 % 0-5 [facility] Erythrocyte distribution wid th ratioOrdered By: Manisha Navas on 11-22-2024 Erythrocyte distribution width (RBC) [Ratio] 15.6 % High 11.6-14.6 [facility] Erythrocyte distribution wid th standard deviationOrdered By: Manisha Navas on 11-22-2024 Erythrocyte distribution width (RBC) [Entitic vol] 49.1 fL High 35.1-43.9 [facility] Erythrocyte distribution width (RBC) [Ratio] 49.1 fl High 35.1-43.9 [facility] GFR/1.73 sq M.predicted abilio g non-blacks MDRD (S/P/Bld) [Vol rate/Area]Ordered By: Manisha Navas on 11-22-2024 Estimated GFR (MDRD) Non-Af Amer 70 >60 [facility] Comment on above: mL/min/1.73m2 CKD-EP I Creatinine Equation (2020) Glomerular filtration rate ( GFR) estimation/1.73 sq m using serum, plasma, or whole bOrdered By: Manisha Navas on 11-22-2024 GFR/1.73 sq M.predicted among non-blacks MDRD (S/P/Bld) [Vol rate/Area] 70 mL/min/{1.73_m2} >60 [facility] Comment on above: mL/min/1.73m2 CKD-EP I Creatinine Equation (2020) Hematocrit Auto (Bld) [Volum e fraction]Ordered By: Manisha Navas on 11-22-2024 Hematocrit (Bld) [Volume fraction] 37.2 % 37-47 [facility] Hemoglobin measurementOrdere d By: Manisha Navas on 11-22-2024 Hemoglobin (Bld) [Mass/Vol] 11.9 g/dL Low 12.0-15.0 [facility] Immature granulocytes/100 WB C Auto (Bld)Ordered By: Manisha Navas on 11-22-2024 Immature granulocytes/100 WBC (Bld) 0.200 % 0.0-0.9 [facility] Comment on above: IG% - Immature Granu locytes (promyelocytes, myelocytes and metamyelocytes) > 1% indicates that a LEFT SHIFT is Present. Laboratory - Chemistry and C hemistry - challengeOrdered By: Manisha Navas on 11-22-2024 AST [Catalytic activity/Vol] 21 U/L <32 [facility] Lymphocytes Auto (Unsp spec) [#/Vol]Ordered By: Manisha Navas on 11-22-2024 Lymphocytes (Bld) [#/Vol] 1.64 10*3/uL 0.83-4.51 [facility] Lymphocytes/100 WBC Auto (Un sp spec)Ordered By: Manisha Navas on 11-22-2024 Lymphocytes/100 WBC (Bld) 26.7 % 19-41 [facility] MCV (mean corpuscular volume ) determinationOrdered By: Manisha Navas on 11-22-2024 MCV (RBC) [Entitic vol] 87.1 fL 81-99 [facility] Mean corpuscular hemoglobin (MCH) determinationOrdered By: Manisha Navas on 11-22-2024 MCH (RBC) [Entitic mass] 27.9 pg 27.0-32.0 [facility] Mean corpuscular hemoglobin concentration (MCHC) determinationOrdered By: Manisha Navas on 11-22-2024 MCHC (RBC) [Mass/Vol] 32.0 g/dL 32-36 [facility] Mean platelet volume determi nationOrdered By: Manisha Navas on 11-22-2024 Platelet mean volume (Bld) [Entitic vol] 9.2 fL 6.2-12.0 [facility] Monocyte percentageOrdered B y: Manisha Navas on 11-22-2024 Monocytes/100 WBC (Bld) 9.4 % 0-10 [facility] Neutrophil percentageOrdered By: Manisha Navas on 11-22-2024 Neutrophils/100 WBC (Bld) 62.8 % 47-70 [facility] Nucleated red blood cell per centageOrdered By: Manisha Navas on 11-22-2024 Nucleated RBC/100 WBC (Bld) [Ratio] 0 % 0-5 [facility] Platelet countOrdered By: Tony Navas on 11-22-2024 Platelets (Bld) [#/Vol] 297 10*3/uL 150-450 [facility] Potassium (Unsp spec) [Mass/ Vol]Ordered By: Manisha Navas on 11-22-2024 Potassium [Moles/Vol] 4.1 mmol/L 3.3-5.1 [facility] Potassium measurement (mass/ volume)Ordered By: Manisha Navas on 11-22-2024 Potassium (Unsp spec) [Mass/Vol] 4.1 mmol/L 3.3-5.1 [facility] RBC Auto (Bld) [#/Vol]Ordere d By: Manisha aNvas on 11-22-2024 RBC (Bld) [#/Vol] 4.27 10*6/uL 4.2-5.4 [facility] Serum creatinine measurement (mass/volume)Ordered By: Manisha Navas on 11-22-2024 Creatinine [Mass/Vol] 0.88 mg/dL 0.70-1.20 [facility] Serum globulin measurementOr dered By: Manisha Navas on 11-22-2024 Globulin (S) [Mass/Vol] 3.0 g/dL 2.2-4.[address] [facility] Serum glucose measurement (m ass/volume)Ordered By: Manisha Navas on 11-22-2024 Glucose [Mass/Vol] 89 mg/dL 70-99 [facility] Serum or plasma alanine graves otransferase (ALT) measurementOrdered By: Manisha Navas on 11-22-2024 ALT [Catalytic activity/Vol] 11 U/L <35 [facility] Serum or plasma albumin bennie urement (mass/volume)Ordered By: Manisha Navas on 11-22-2024 Albumin [Mass/Vol] 4.1 g/dL 3.4-4.8 [facility] Serum or plasma albumin/glob ulin mass ratioOrdered By: Manisha Navas on 11-22-2024 Albumin/Globulin [Mass ratio] 1.4 {ratio} 0.9-2.4 [facility] Serum or plasma alkaline coy sphatase measurementOrdered By: Manisha Navas on 11-22-2024 ALP [Catalytic activity/Vol] 105 U/L High 35-104 [facility] Serum or plasma calcium bennie urement (mass/volume)Ordered By: Manisha Navas on 11-22-2024 Calcium [Mass/Vol] 10.5 mg/dL 7.6-11.0 [facility] Serum or plasma urea nitroge n measurement (mass/volume)Ordered By: Manisha Navas on 11-22-2024 Urea nitrogen [Mass/Vol] 14 mg/dL 4-19 [facility] Sodium levelOrdered By: Pradip Navas on 11-22-2024 Sodium [Moles/Vol] 140 mmol/L 133-145 [facility] Total proteinOrdered By: Judie Navas on 11-22-2024 Protein [Mass/Vol] 7.1 g/dL 5.9-8.4 [facility] White blood cell (WBC) count Ordered By: Manisha Navas on 11-22-2024 WBC (Bld) [#/Vol] 6.2 10*3/uL 4.4-11.0 [facility] HIP, UNI W/ Pelvis 2-3 Views on 11-04-2024 HIP, UNI W/ Pelvis 2-3 Views Normal [facility] Orthopedic Visit Reporton Orthopedic Visit Report Normal [facility] HIP, UNI W/ Pelvis 2-3 Views on 09-11-2024 HIP, UNI W/ Pelvis 2-3 Views Normal [facility] Orthopedic Visit Reporton Orthopedic Visit Report Normal [facility] Basic Metabolic Profile (BMP )on 09-10-2024 BUN Normal 7-18 [facility] Comment on above: Result Comment: Canc elled via OM: Order cancelled - Patient discharged Performed By: #### L 500.2500 ####[facility] [address] [place], [place], [id number] BUN/CRE Normal 10-20 [facility] Comment on above: Result Comment: Canc elled via OM: Order cancelled - Patient discharged Performed By: #### L 500.2500 ####[facility] [address] [place], [address] CA,Total Normal 8.5-10.1 [facility] Comment on above: Result Comment: Canc elled via OM: Order cancelled - Patient discharged Performed By: #### L 500.2500 ####[facility] [address] [place], [address] CL Normal 98-107 [facility] Comment on above: Result Comment: Canc elled via OM: Order cancelled - Patient discharged Performed By: #### L 500.2500 ####[facility] [address] [place], [address] CO2 Normal 21.0-32.0 [facility] Comment on above: Result Comment: Canc elled via OM: Order cancelled - Patient discharged Performed By: #### L 500.2500 ####[facility] [address] [place], [address] CREAT,SERUM Normal 0.55-1.02 [facility] Comment on above: Result Comment: Canc elled via OM: Order cancelled - Patient discharged Performed By: #### L 500.2500 ####[facility] [address] [place], [address] EST GFR Normal >60 [facility] Comment on above: Result Comment: Canc elled via OM: Order cancelled - Patient discharged Performed By: #### L 500.2500 ####[facility] [address] [place], [address] EST GFR - AA Normal >60 [facility] Comment on above: Result Comment: Canc elled via OM: Order cancelled - Patient discharged Performed By: #### L 500.2500 ####[facility] [address] [place], [address] GAP Normal 5-15 [facility] Comment on above: Result Comment: Canc elled via OM: Order cancelled - Patient discharged Performed By: #### L 500.2500 ####[facility] [address] [place], [address] GLU Normal 74-106 [facility] Comment on above: Result Comment: Canc elled via OM: Order cancelled - Patient discharged Performed By: #### L 500.2500 ####[facility] [address] [place], [address] Potassium Normal 3.5-5.1 [facility] Comment on above: Result Comment: Canc elled via OM: Order cancelled - Patient discharged Performed By: #### L 500.2500 ####[facility] [address] [place], [place], [id number] Basic Metabolic Profile (BMP) Normal 136-145 [facility] Comment on above: Result Comment: Canc elled via OM: Order cancelled - Patient discharged Performed By: #### L 500.2500 ####[facility] [address] [place], [place], [id number] Absolute neutrophil countOrd ered By: Manisha Navas on 09-05-2024 Neutrophils (Bld) [#/Vol] 3.5 10*3/uL 2.0-7.7 [facility] Albumin to globulin ratioOrd ered By: Manisha Navas on 09-05-2024 Albumin/Globulin [Mass ratio] 1.2 {ratio} 0.9-2.4 [facility] Basophil percentageOrdered B y: Manisha Navas on 09-05-2024 Basophils/100 WBC (Bld) 0.6 % 0-1 [facility] Bilirubin, totalOrdered By: Manisha Navas on 09-05-2024 Bilirubin [Mass/Vol] 1.20 mg/dL High 0.20-1.00 [facility] Comment on above: For patients on eltr ombopag therapy, use of Dimension [place] TBIL is not recommended. Blood urea nitrogen (BUN)/cr eatinine ratioOrdered By: Manisha Navas on 09-05-2024 Urea nitrogen/Creatinine [Mass ratio] 14.3 mg/mg 10-20 [facility] CBC W/Diff, Automatedon Absolute Lymph 0.91 X10 3/uL Normal 0.83-4.51 [facility] Comment on above: Performed By: #### L 100.0100, L500.4050 ####[facility] [address] [place], [address] Absolute Neut 3.5 X10 3/uL Normal 2.0-7.7 [facility] Comment on above: Performed By: #### L 100.0100, L500.4050 ####[facility] [address] [place], [address] Basophils/100 WBC (Bld) 0.6 % Normal 0-1 [facility] Comment on above: Performed By: #### L 100.0100, L500.4050 ####[facility] [address] [place], [address] Eosinophils/100 WBC (Bld) 0.2 % Normal 0-5 [facility] Comment on above: Performed By: #### L 100.0100, L500.4050 ####[facility] [address] [place], [address] Erythrocyte distribution width (RBC) [Ratio] 14.5 % Normal 11.6-14.6 [facility] Comment on above: Performed By: #### L 100.0100, L500.4050 ####[facility] [address] [place], [address] Hematocrit (Bld) [Volume fraction] 32.5 % Low 37-47 [facility] Comment on above: Performed By: #### L 100.0100, L500.4050 ####[facility] [address] [place], [address] Hemoglobin (Bld) [Mass/Vol] 10.1 g/dL Low 12.0-15.0 [facility] Comment on above: Performed By: #### L 100.0100, L500.4050 ####[facility] [address] [place], [address] IG% 0.400 Normal 0.0-0.9 [facility] Comment on above: Result Comment: IG% - Immature Granulocytes (promyelocytes, myelocytes andmetamyelocytes) > 1% indicates that a LEFT SHIFT is Present. Performed By: #### L 100.0100, L500.4050 ####[facility] [address] [place], [address] Lymphocytes/100 WBC (Bld) 18.1 % Low 19-41 [facility] Comment on above: Performed By: #### L 100.0100, L500.4050 ####[facility] [address] [place], [address] MCH (RBC) [Entitic mass] 28.4 pg Normal 27.0-32.0 [facility] Comment on above: Performed By: #### L 100.0100, L500.4050 ####[facility] [address] [place], [address] MCHC (RBC) [Mass/Vol] 31.1 g/dL Low 32-36 [facility] Comment on above: Performed By: #### L 100.0100, L500.4050 ####[facility] [address] [place], [address] MCV (RBC) [Entitic vol] 91.3 fL Normal 81-[address] [facility] Comment on above: Performed By: #### L 100.0100, L500.4050 ####[facility] [address] [place], [address] Monocytes/100 WBC (Bld) 10.6 % High 0-10 [facility] Comment on above: Performed By: #### L 100.0100, L500.4050 ####[facility] [address] [place], [address] Neutrophils/100 WBC (Bld) 70.1 % High 47-70 [facility] Comment on above: Performed By: #### L 100.0100, L500.4050 ####[facility] [address] [place], [address] Nucleated RBC (Bld) [#/Vol] 0 10*3/uL Normal 0-5 [facility] Comment on above: Performed By: #### L 100.0100, L500.4050 ####[facility] [address] [place], [address] Platelet mean volume (Bld) [Entitic vol] 9.2 fL Normal 6.2-12.0 [facility] Comment on above: Performed By: #### L 100.0100, L500.4050 ####[facility] [address] [place], [address] Platelets (Bld) [#/Vol] 302 10*3/uL Normal 150-450 [facility] Comment on above: Performed By: #### L 100.0100, L500.4050 ####[facility] [address] [place], [address] RBC (Bld) [#/Vol] 3.56 10*6/uL Low 4.2-5.4 [facility] Comment on above: Performed By: #### L 100.0100, L500.4050 ####[facility] [address] [place], [address] RDW SD 48.5 fl High 35.1-43.9 [facility] Comment on above: Performed By: #### L 100.0100, L500.4050 ####[facility] [address] [place], [address] WBC (Bld) [#/Vol] 5.0 10*3/uL Normal 4.4-11.0 [facility] Comment on above: Performed By: #### L 100.0100, L500.4050 ####[facility] [address] [place], [address] Carbon dioxide measurementOr dered By: Manisha Navas on 09-05-2024 CO2 [Moles/Vol] 29.0 mmol/L 21.0-32.0 [facility] Chloride measurementOrdered By: Manisha Navas on 09-05-2024 Chloride [Moles/Vol] 105 mmol/L 98-107 [facility] Comprehensive Metabolic Prof ilon 09-05-2024 Albumin [Mass/Vol] 3.8 g/dL Normal 3.2-5.0 [facility] Comment on above: Order Comment: DR.VE ALVARES ORDERED CBCD,CMPDR.ROBERT ORDERED CBCD Performed By: #### L 100.0100, L500.4050 ####[facility] [address] [place], [address] Albumin/Globulin [Mass ratio] 1.2 {ratio} Normal 0.9-2.4 [facility] Comment on above: Order Comment: DR.VE ALVARES ORDERED CBCD,CMPDR.ROBERT ORDERED CBCD Performed By: #### L 100.0100, L500.4050 ####[facility] [address] [place], [address] ALK P 90 U/L Normal 45-117 [facility] Comment on above: Order Comment: DR.VE ALVARES ORDERED CBCD,CMPDR.ROBERT ORDERED CBCD Performed By: #### L 100.0100, L500.4050 ####[facility] [address] [place], [address] ALT [Catalytic activity/Vol] 18 U/L Normal 13-56 [facility] Comment on above: Order Comment: DR.VE ALVARES ORDERED CBCD,CMPDR.ROBERT ORDERED CBCD Performed By: #### L 100.0100, L500.4050 ####[facility] [address] [place], [address] AST [Catalytic activity/Vol] 18 U/L Normal 15-37 [facility] Comment on above: Order Comment: DR.VE ALVARES ORDERED CBCD,CMPDR.ROBERT ORDERED CBCD Performed By: #### L 100.0100, L500.4050 ####[facility] [address] [place], [address] Bilirubin [Mass/Vol] 1.20 mg/dL High 0.20-1.00 [facility] Comment on above: Order Comment: DR.VE ALVARES ORDERED CBCD,CMP ORDERED CBCD Result Comment: For patients on eltrombopag therapy, use of Dimension [place] TBIL is not recommended. Performed By: #### L 100.0100, L500.4050 ####[facility] [address] [place], [address] BUN/CRE 14.3 RATIO Normal 10-20 [facility] Comment on above: Order Comment: DR.VE ALVARES ORDERED CBCD,CMPDRSERGE ORDERED CBCD Performed By: #### L 100.0100, L500.4050 ####[facility] [address] [place], [address] CA,Total 9.0 mg/dL Normal 8.5-10.1 [facility] Comment on above: Order Comment: DR.VE ALVARES ORDERED CBCD,CMP ORDERED CBCD Performed By: #### L 100.0100, L500.4050 ####[facility] [address] [place], [address] Chloride [Moles/Vol] 105 mmol/L Normal 98-107 [facility] Comment on above: Order Comment: DR.VE ALVARES ORDERED CBCD,CMPDRSERGE ORDERED CBCD Performed By: #### L 100.0100, L500.4050 ####[facility] [address] [place], [address] CO2 [Moles/Vol] 29.0 mmol/L Normal 21.0-32.0 [facility] Comment on above: Order Comment: DR.VE ALVARES ORDERED CBCD,CMPDRSERGE ORDERED CBCD Performed By: #### L 100.0100, L500.4050 ####[facility] [address] [place], [address] Creatinine [Mass/Vol] 0.70 mg/dL Normal 0.55-1.02 [facility] Comment on above: Order Comment: DR.VE ALVARES ORDERED CBCD,KARLEE ORDERED CBCD Result Comment: The validity of the calculated GFR GFRAA in patients over70 years has not been determined. Clinical correlation isessential. Performed By: #### L 100.0100, L500.4050 ####[facility] [address] [place], [address] EST GFR - AA 106 mL/min Normal >60 [facility] Comment on above: Order Comment: DR.VE ALVARES ORDERED CBCD,KARLEE ORDERED CBCD Result Comment: Afri can Maltese GFR Calc Performed By: #### L 100.0100, L500.4050 ####[facility] [address] [place], [address] GAP 8 Normal 5-15 [facility] Comment on above: Order Comment: DR.VE ALVARES ORDERED CBCD,KARLEE ORDERED CBCD Performed By: #### L 100.0100, L500.4050 ####[facility] [address] [place], [address] GFR/1.73 sq M.predicted among non-blacks MDRD (S/P/Bld) [Vol rate/Area] 88 mL/min/{1.73_m2} Normal >60 [facility] Comment on above: Order Comment: DR.VE ALVARES ORDERED CBCD,KARLEE ORDERED CBCD Result Comment: Non- GFR Calc Performed By: #### L 100.0100, L500.4050 ####[facility] [address] [place], [address] Globulin (S) [Mass/Vol] 3.3 g/dL Normal 2.2-4.[address] [facility] Comment on above: Order Comment: DR.VE ALVARES ORDERED CBCD,CMPDR.ROBERT ORDERED CBCD Performed By: #### L 100.0100, L500.4050 ####[facility] [address] [place], [address] Glucose [Mass/Vol] 105 mg/dL Normal 74-106 [facility] Comment on above: Order Comment: DR.VE ALVARES ORDERED CBCD,CMPDRSERGE ORDERED CBCD Result Comment: Fast ing Glucose result from 100 to 125 mg/dLsuggests IMPAIRED HOMEOSTASIS per A.D.A. criteria. Performed By: #### L 100.0100, L500.4050 ####[facility] [address] [place], [address] Potassium [Moles/Vol] 3.3 mmol/L Low 3.5-5.1 [facility] Comment on above: Order Comment: DR.VE ALVARES ORDERED CBCD,CMPDRSERGE ORDERED CBCD Performed By: #### L 100.0100, L500.4050 ####[facility] [address] [place], [address] Sodium [Moles/Vol] 141 mmol/L Normal 136-145 [facility] Comment on above: Order Comment: DR.VE ALVARES ORDERED CBCD,CMPDRSERGE ORDERED CBCD Performed By: #### L 100.0100, L500.4050 ####[facility] [address] [place], [address] T PROT 7.1 g/dL Normal 6.4-8.2 [facility] Comment on above: Order Comment: DR.VE ALVARES ORDERED CBCD,CMPDR.ROBERT ORDERED CBCD Performed By: #### L 100.0100, L500.4050 ####[facility] [address] [place], [address] Urea nitrogen [Mass/Vol] 10 mg/dL Normal 7-18 [facility] Comment on above: Order Comment: DR.VE ALVARES ORDERED CBCD,KARLEE ORDERED CBCD Performed By: #### L 100.0100, L500.4050 ####[facility] [address] [place], [address] Eosinophil percentageOrdered By: Manisha Navas on 09-05-2024 Eosinophils/100 WBC (Bld) 0.2 % 0-5 [facility] Erythrocyte distribution wid th ratioOrdered By: Manisha Navas on 09-05-2024 Erythrocyte distribution width (RBC) [Ratio] 14.5 % 11.6-14.6 [facility] Erythrocyte distribution wid th standard deviationOrdered By: Manisha Navas on 09-05-2024 Erythrocyte distribution width (RBC) [Entitic vol] 48.5 fL High 35.1-43.9 [facility] Estimated glomerular filtrat ion rate (GFR) AmericanOrdered By: Manisha Navas on 09-05-2024 Estimated GFR (MDRD) Amer 106 mL/min >60 [facility] Comment on above: GFR Calc Glomerular filtration rate ( GFR) estimationOrdered By: Manisha Navas on 09-05-2024 Estimated GFR (MDRD) Non-Af Amer 88 mL/min >60 [facility] Comment on above: Non- GFR Calc Glucose measurementOrdered B y: Manisha Navas on 09-05-2024 Glucose [Mass/Vol] 105 mg/dL 74-106 [facility] Comment on above: Fasting Glucose resu lt from 100 to 125 mg/dL suggests IMPAIRED HOMEOSTASIS per A.D.A. criteria. Hematocrit Auto (Bld) [Volum e fraction]Ordered By: Manisha Navas on 09-05-2024 Hematocrit (Bld) [Volume fraction] 32.5 % Low 37-47 [facility] Hemoglobin measurementOrdere d By: Manisha Navas on 09-05-2024 Hemoglobin (Bld) [Mass/Vol] 10.1 g/dL Low 12.0-15.0 [facility] Immature granulocytes/100 WB C Auto (Bld)Ordered By: Manisha Navas on 09-05-2024 Immature granulocytes/100 WBC (Bld) 0.400 % 0.0-0.9 [facility] Comment on above: IG% - Immature Granu locytes (promyelocytes, myelocytes and metamyelocytes) > 1% indicates that a LEFT SHIFT is Present. Laboratory - Chemistry and C hemistry - challengeOrdered By: Manisha Navas on 09-05-2024 AST [Catalytic activity/Vol] 18 U/L 15-37 [facility] Lymphocytes Auto (Unsp spec) [#/Vol]Ordered By: Manisha Navas on 09-05-2024 Lymphocytes (Bld) [#/Vol] 0.91 10*3/uL 0.83-4.51 [facility] Lymphocytes/100 WBC Auto (Un sp spec)Ordered By: Manisha Navas on 09-05-2024 Lymphocytes/100 WBC (Bld) 18.1 % Low 19-41 [facility] MCV (mean corpuscular volume ) determinationOrdered By: Manisha Navas on 09-05-2024 MCV (RBC) [Entitic vol] 91.3 fL 81-[address] [facility] Mean corpuscular hemoglobin (MCH) determinationOrdered By: Manisha Navas on 09-05-2024 MCH (RBC) [Entitic mass] 28.4 pg 27.0-32.0 [facility] Mean corpuscular hemoglobin concentration (MCHC) determinationOrdered By: Manisha Navas on 09-05-2024 MCHC (RBC) [Mass/Vol] 31.1 g/dL Low 32-36 [facility] Mean platelet volume determi nationOrdered By: Manisha Navas on 09-05-2024 Platelet mean volume (Bld) [Entitic vol] 9.2 fL 6.2-12.0 [facility] Monocyte percentageOrdered B y: Manisha Navas on 09-05-2024 Monocytes/100 WBC (Bld) 10.6 % High 0-10 [facility] Neutrophil percentageOrdered By: Manisha Navas on 09-05-2024 Neutrophils/100 WBC (Bld) 70.1 % High 47-70 [facility] Nucleated red blood cell per centageOrdered By: Manisha Navas on 09-05-2024 Nucleated RBC/100 WBC (Bld) [Ratio] 0 % 0-5 [facility] Platelet countOrdered By: Tony Navas on 09-05-2024 Platelets (Bld) [#/Vol] 302 10*3/uL 150-450 [facility] Potassium measurementOrdered By: Manisha Navas on 09-05-2024 Potassium [Moles/Vol] 3.3 mmol/L Low 3.5-5.1 [facility] RBC Auto (Bld) [#/Vol]Ordere d By: Manisha Navas on 09-05-2024 RBC (Bld) [#/Vol] 3.56 10*6/uL Low 4.2-5.4 [facility] Serum anion gap measurementO rdered By: Manisha Navas on 09-05-2024 Anion gap [Moles/Vol] 8 mmol/L 5-15 [facility] Serum globulin measurementOr dered By: Manisha Navas on 09-05-2024 Globulin (S) [Mass/Vol] 3.3 g/dL 2.2-4.2 [facility] Serum or plasma alanine graves otransferase (ALT) measurementOrdered By: Manisha Navas on 09-05-2024 ALT [Catalytic activity/Vol] 18 U/L 13-56 [facility] Serum or plasma albumin bennie urement (mass/volume)Ordered By: Manisha Navas on 09-05-2024 Albumin [Mass/Vol] 3.8 g/dL 3.2-5.0 [facility] Serum or plasma alkaline coy sphatase measurementOrdered By: Manisha Navas on 09-05-2024 ALP [Catalytic activity/Vol] 90 U/L 45-117 [facility] Serum or plasma calcium bennie urement (mass/volume)Ordered By: Manisha Navas on 09-05-2024 Calcium [Mass/Vol] 9.0 mg/dL 8.5-10.1 [facility] Serum or plasma creatinine m easurement (mass/volume)Ordered By: Manisha Navas on 09-05-2024 Creatinine [Mass/Vol] 0.70 mg/dL 0.55-1.02 [facility] Comment on above: The validity of the calculated GFR & GFRAA in patients over 70 years has not been determined. Clinical correlation is essential. Serum or plasma urea nitroge n measurement (mass/volume)Ordered By: Manisha Navas on 09-05-2024 Urea nitrogen [Mass/Vol] 10 mg/dL - [facility] Sodium levelOrdered By: Pradip Navas on 09-05-2024 Sodium [Moles/Vol] 141 mmol/L 136-145 [facility] Total proteinOrdered By: Judie Navas on 09-05-2024 Protein [Mass/Vol] 7.1 g/dL 6.4-8.2 [facility] White blood cell (WBC) count Ordered By: Manisha Navas on 09-05-2024 WBC (Bld) [#/Vol] 5.0 10*3/uL 4.4-11.0 [facility] Basic Metabolic Profile (BMP )on 09-03-2024 BUN Normal 03-21 [facility] Comment on above: Result Comment: Canc elled via OM: Order cancelled - Patient discharged Performed By: #### L 100.0100, L500.2500 ####[facility] [address] [facility] [address] BUN/CRE Normal 10-20 [facility] Comment on above: Result Comment: Canc elled via OM: Order cancelled - Patient discharged Performed By: #### L 100.0100, L500.2500 ####[facility] [address] [place], [address] CA,Total Normal 8.5-10.1 [facility] Comment on above: Result Comment: Canc elled via OM: Order cancelled - Patient discharged Performed By: #### L 100.0100, L500.2500 ####[facility] [address] [place], [address] CL Normal 98-107 [facility] Comment on above: Result Comment: Canc elled via OM: Order cancelled - Patient discharged Performed By: #### L 100.0100, L500.2500 ####[facility] [address] [place], [address] CO2 Normal 21.0-32.0 [facility] Comment on above: Result Comment: Canc elled via OM: Order cancelled - Patient discharged Performed By: #### L 100.0100, L500.2500 ####[facility] [address] [place], [address] CREAT,SERUM Normal 0.55-1.02 [facility] Comment on above: Result Comment: Canc elled via OM: Order cancelled - Patient discharged Performed By: #### L 100.0100, L500.2500 ####[facility] [address] [place], [address] EST GFR Normal >60 [facility] Comment on above: Result Comment: Canc elled via OM: Order cancelled - Patient discharged Performed By: #### L 100.0100, L500.2500 ####[facility] [address] [place], [address] EST GFR - AA Normal >60 [facility] Comment on above: Result Comment: Canc elled via OM: Order cancelled - Patient discharged Performed By: #### L 100.0100, L500.2500 ####[facility] [address] [place], [address] GAP Normal 5-15 [facility] Comment on above: Result Comment: Canc elled via OM: Order cancelled - Patient discharged Performed By: #### L 100.0100, L500.2500 ####[facility] [address] [place], [address] GLU Normal 74-106 [facility] Comment on above: Result Comment: Canc elled via OM: Order cancelled - Patient discharged Performed By: #### L 100.0100, L500.2500 ####[facility] [address] [place], [address] Potassium Normal 3.5-5.1 [facility] Comment on above: Result Comment: Canc elled via OM: Order cancelled - Patient discharged Performed By: #### L 100.0100, L500.2500 ####[facility] [address] [place], [address] Basic Metabolic Profile (BMP) Normal 136-145 [facility] Comment on above: Result Comment: Canc elled via OM: Order cancelled - Patient discharged Performed By: #### L 100.0100, L500.2500 ####[facility] [address] [place], [address] CBC W/Diff, Automatedon 12-3 Absolute Neut Normal 2.0-7.7 [facility] Comment on above: Result Comment: Canc elled via OM: Order cancelled - Patient discharged Performed By: #### L 100.0100, L500.2500 ####[facility] [address] [place], [address] HCT Normal 37-47 [facility] Comment on above: Result Comment: Canc elled via OM: Order cancelled - Patient discharged Performed By: #### L 100.0100, L500.2500 ####[facility] [address] [place], [address] HGB Normal 12.0-15.0 [facility] Comment on above: Result Comment: Canc elled via OM: Order cancelled - Patient discharged Performed By: #### L 100.0100, L500.2500 ####[facility] [address] [place], [address] MCH Normal 27.0-32.0 [facility] Comment on above: Result Comment: Canc elled via OM: Order cancelled - Patient discharged Performed By: #### L 100.0100, L500.2500 ####[facility] [address] [place], [address] MCHC Normal 32-36 [facility] Comment on above: Result Comment: Canc elled via OM: Order cancelled - Patient discharged Performed By: #### L 100.0100, L500.2500 ####[facility] [address] [place], [address] MCV Normal 81-99 [facility] Comment on above: Result Comment: Canc elled via OM: Order cancelled - Patient discharged Performed By: #### L 100.0100, L500.2500 ####[facility] [address] [place], [address] NEUT% Normal 47-70 [facility] Comment on above: Result Comment: Canc elled via OM: Order cancelled - Patient discharged Performed By: #### L 100.0100, L500.2500 ####[facility] [address] [place], [address] PLT Normal 150-450 [facility] Comment on above: Result Comment: Canc elled via OM: Order cancelled - Patient discharged Performed By: #### L 100.0100, L500.2500 ####[facility] [address] [place], [address] RBC Normal 4.2-5.4 [facility] Comment on above: Result Comment: Canc elled via OM: Order cancelled - Patient discharged Performed By: #### L 100.0100, L500.2500 ####[facility] [address] [place], [address] RDW CV Normal 11.6-14.6 [facility] Comment on above: Result Comment: Canc elled via OM: Order cancelled - Patient discharged Performed By: #### L 100.0100, L500.2500 ####[facility] [address] [place], [address] RDW SD Normal 35.1-43.9 [facility] Comment on above: Result Comment: Canc elled via OM: Order cancelled - Patient discharged Performed By: #### L 100.0100, L500.2500 ####[facility] [address] [place], [address] WBC Normal 4.4-11.0 [facility] Comment on above: Result Comment: Canc elled via OM: Order cancelled - Patient discharged Performed By: #### L 100.0100, L500.2500 ####[facility] [address] [place], [place], [address] Basic Metabolic Profile (BMP )on 08-27-2024 BUN Normal -18 [facility] Comment on above: Result Comment: Canc elled via OM: Order cancelled - Patient discharged Performed By: #### L 100.0100, L500.2500 ####[facility] [address] [place], [address] BUN/CRE Normal 10-20 [facility] Comment on above: Result Comment: Canc elled via OM: Order cancelled - Patient discharged Performed By: #### L 100.0100, L500.2500 ####[facility] [address] [place], [address] CA,Total Normal 8.5-10.1 [facility] Comment on above: Result Comment: Canc elled via OM: Order cancelled - Patient discharged Performed By: #### L 100.0100, L500.2500 ####[facility] [address] [place], [address] CL Normal 98-107 [facility] Comment on above: Result Comment: Canc elled via OM: Order cancelled - Patient discharged Performed By: #### L 100.0100, L500.2500 ####[facility] [address] [place], [address] CO2 Normal 21.0-32.0 [facility] Comment on above: Result Comment: Canc elled via OM: Order cancelled - Patient discharged Performed By: #### L 100.0100, L500.2500 ####[facility] [address] [place], [address] CREAT,SERUM Normal 0.55-1.02 [facility] Comment on above: Result Comment: Canc elled via OM: Order cancelled - Patient discharged Performed By: #### L 100.0100, L500.2500 ####[facility] [address] [place], [address] EST GFR Normal >60 [facility] Comment on above: Result Comment: Canc elled via OM: Order cancelled - Patient discharged Performed By: #### L 100.0100, L500.2500 ####[facility] [address] [place], [address] EST GFR - AA Normal >60 [facility] Comment on above: Result Comment: Canc elled via OM: Order cancelled - Patient discharged Performed By: #### L 100.0100, L500.2500 ####[facility] [address] [place], [address] GAP Normal 5-15 [facility] Comment on above: Result Comment: Canc elled via OM: Order cancelled - Patient discharged Performed By: #### L 100.0100, L500.2500 ####[facility] [address] [place], [address] GLU Normal 74-106 [facility] Comment on above: Result Comment: Canc elled via OM: Order cancelled - Patient discharged Performed By: #### L 100.0100, L500.2500 ####[facility] [address] [place], [address] Potassium Normal 3.5-5.1 [facility] Comment on above: Result Comment: Canc elled via OM: Order cancelled - Patient discharged Performed By: #### L 100.0100, L500.2500 ####[facility] [address] [place], [address] Basic Metabolic Profile (BMP) Normal 136-145 [facility] Comment on above: Result Comment: Canc elled via OM: Order cancelled - Patient discharged Performed By: #### L 100.0100, L500.2500 ####[facility] [address] [place], [address] CBC W/Diff, Automatedon 12-2 Absolute Neut Normal 2.0-7.7 [facility] Comment on above: Result Comment: Canc elled via OM: Order cancelled - Patient discharged Performed By: #### L 100.0100, L500.2500 ####[facility] [address] [place], [address] HCT Normal 37-47 [facility] Comment on above: Result Comment: Canc elled via OM: Order cancelled - Patient discharged Performed By: #### L 100.0100, L500.2500 ####[facility] [address] [place], [address] HGB Normal 12.0-15.0 [facility] Comment on above: Result Comment: Canc elled via OM: Order cancelled - Patient discharged Performed By: #### L 100.0100, L500.2500 ####[facility] [address] [place], [address] MCH Normal 27.0-32.0 [facility] Comment on above: Result Comment: Canc elled via OM: Order cancelled - Patient discharged Performed By: #### L 100.0100, L500.2500 ####[facility] [address] [place], [address] MCHC Normal 32-36 [facility] Comment on above: Result Comment: Canc elled via OM: Order cancelled - Patient discharged Performed By: #### L 100.0100, L500.2500 ####[facility] [facility] [address] [place], [address] MCV Normal 81-99 [facility] Comment on above: Result Comment: Canc elled via OM: Order cancelled - Patient discharged Performed By: #### L 100.0100, L500.2500 ####[facility] [address] [place], [address] NEUT% Normal 47-70 [facility] Comment on above: Result Comment: Canc elled via OM: Order cancelled - Patient discharged Performed By: #### L 100.0100, L500.2500 ####[facility] [address] [place], [address] PLT Normal 150-450 [facility] Comment on above: Result Comment: Canc elled via OM: Order cancelled - Patient discharged Performed By: #### L 100.0100, L500.2500 ####[facility] [address] [place], [address] RBC Normal 4.2-5.4 [facility] Comment on above: Result Comment: Canc elled via OM: Order cancelled - Patient discharged Performed By: #### L 100.0100, L500.2500 ####[facility] [address] [place], [address] RDW CV Normal 11.6-14.6 [facility] Comment on above: Result Comment: Canc elled via OM: Order cancelled - Patient discharged Performed By: #### L 100.0100, L500.2500 ####[facility] [address] [place], [address] RDW SD Normal 35.1-43.9 [facility] Comment on above: Result Comment: Canc elled via OM: Order cancelled - Patient discharged Performed By: #### L 100.0100, L500.2500 ####[facility] [address] [place], [address] WBC Normal 4.4-11.0 [facility] Comment on above: Result Comment: Canc elled via OM: Order cancelled - Patient discharged Performed By: #### L 100.0100, L500.2500 ####[facility] [address] [place], [address] Absolute neutrophil countOrd ered By: Young Ng on 08-20-2024 Neutrophils (Bld) [#/Vol] 2.2 10*3/uL 2.0-7.7 [facility] Basic Metabolic Profile (BMP )on 08-20-2024 BUN/CRE 18.7 RATIO Normal 10-20 [facility] Comment on above: Performed By: #### L 500.2500, L100.0100 ####[facility] [address] [place], [address] CA,Total 8.4 mg/dL Low 8.5-10.1 [facility] Comment on above: Performed By: #### L 500.2500, L100.0100 ####[facility] [address] [place], [address] Chloride [Moles/Vol] 108 mmol/L High 98-107 [facility] Comment on above: Performed By: #### L 500.2500, L100.0100 ####[facility] [address] [place], [address] CO2 [Moles/Vol] 28.0 mmol/L Normal 21.0-32.0 [facility] Comment on above: Performed By: #### L 500.2500, L100.0100 ####[facility] [address] [place], [address] Creatinine [Mass/Vol] 0.64 mg/dL Normal 0.55-1.02 [facility] Comment on above: Result Comment: The validity of the calculated GFR GFRAA in patients over70 years has not been determined. Clinical correlation isessential. Performed By: #### L 500.2500, L100.0100 ####[facility] [address] [place], [address] ECRCL 59.15 ml/min Normal [facility] Comment on above: Performed By: #### L 500.2500, L100.0100 ####[facility] [address] [place], [address] EST GFR - AA 117 mL/min Normal >60 [facility] Comment on above: Result Comment: Afri can Maltese GFR Calc Performed By: #### L 500.2500, L100.0100 ####[facility] [address] [place], [address] GAP 5 Normal 5-15 [facility] Comment on above: Performed By: #### L 500.2500, L100.0100 ####[facility] [address] [place], [address] GFR/1.73 sq M.predicted among non-blacks MDRD (S/P/Bld) [Vol rate/Area] 97 mL/min/{1.73_m2} Normal >60 [facility] Comment on above: Result Comment: Non- GFR Calc Performed By: #### L 500.2500, L100.0100 ####[facility] [address] [place], [address] Glucose [Mass/Vol] 106 mg/dL Normal 74-106 [facility] Comment on above: Result Comment: Fast ing Glucose result from 100 to 125 mg/dLsuggests IMPAIRED HOMEOSTASIS per A.D.A. criteria. Performed By: #### L 500.2500, L100.0100 ####[facility] [address] [place], [address] Potassium [Moles/Vol] 3.5 mmol/L Normal 3.5-5.1 [facility] Comment on above: Performed By: #### L 500.2500, L100.0100 ####[facility] [address] [place], [address] Sodium [Moles/Vol] 141 mmol/L Normal 136-145 [facility] Comment on above: Performed By: #### L 500.2500, L100.0100 ####[facility] [address] [place], [address] Urea nitrogen [Mass/Vol] 12 mg/dL Normal - [facility] Comment on above: Performed By: #### L 500.2500, L100.0100 ####[facility] [address] [place], [address] Basophil percentageOrdered B y: Young Ng on 08-20-2024 Basophils/100 WBC (Bld) 0.8 % 0-1 [facility] Blood urea nitrogen (BUN)/cr eatinine ratioOrdered By: Young Ng on 08-20-2024 Urea nitrogen/Creatinine [Mass ratio] 18.7 mg/mg 06-23 [facility] CBC W/Diff, Automatedon 08-04 Absolute Lymph 1.10 X10 3/uL Normal 0.83-4.51 [facility] Comment on above: Performed By: #### L 500.2500, L100.0100 ####[facility] [address] [place], [address] Absolute Neut 2.2 X10 3/uL Normal 2.0-7.7 [facility] Comment on above: Performed By: #### L 500.2500, L100.0100 ####[facility] [address] [place], [address] Basophils/100 WBC (Bld) 0.8 % Normal 0-1 [facility] Comment on above: Performed By: #### L 500.2500, L100.0100 ####[facility] [address] [place], [address] Eosinophils/100 WBC (Bld) 0.3 % Normal 0-5 [facility] Comment on above: Performed By: #### L 500.2500, L100.0100 ####[facility] [address] [place], [address] Erythrocyte distribution width (RBC) [Ratio] 14.9 % High 11.6-14.6 [facility] Comment on above: Performed By: #### L 500.2500, L100.0100 ####[facility] [address] [place], [address] Hematocrit (Bld) [Volume fraction] 27.1 % Low 37-47 [facility] Comment on above: Performed By: #### L 500.2500, L100.0100 ####[facility] [address] [place], [address] Hemoglobin (Bld) [Mass/Vol] 8.2 g/dL Low 12.0-15.0 [facility] Comment on above: Performed By: #### L 500.2500, L100.0100 ####[facility] [address] [place], [address] IG% 0.300 Normal 0.0-0.9 [facility] Comment on above: Result Comment: IG% - Immature Granulocytes (promyelocytes, myelocytes andmetamyelocytes) > 1% indicates that a LEFT SHIFT is Present. Performed By: #### L 500.2500, L100.0100 ####[facility] [address] [place], [address] Lymphocytes/100 WBC (Bld) 27.8 % Normal 19-41 [facility] Comment on above: Performed By: #### L 500.2500, L100.0100 ####[facility] [address] [place], [address] MCH (RBC) [Entitic mass] 29.0 pg Normal 27.0-32.0 [facility] Comment on above: Performed By: #### L 500.2500, L100.0100 ####[facility] [address] [place], [address] MCHC (RBC) [Mass/Vol] 30.3 g/dL Low 32-36 [facility] Comment on above: Performed By: #### L 500.2500, L100.0100 ####[facility] [address] [place], [address] MCV (RBC) [Entitic vol] 95.8 fL Normal 81-99 [facility] Comment on above: Performed By: #### L 500.2500, L100.0100 ####[facility] [address] [place], [address] Monocytes/100 WBC (Bld) 14.9 % High 0-10 [facility] Comment on above: Performed By: #### L 500.2500, L100.0100 ####[facility] [address] [place], [address] Neutrophils/100 WBC (Bld) 55.9 % Normal 47-70 [facility] Comment on above: Performed By: #### L 500.2500, L100.0100 ####[facility] [address] [place], [address] Nucleated RBC (Bld) [#/Vol] 0 10*3/uL Normal 0-5 [facility] Comment on above: Performed By: #### L 500.2500, L100.0100 ####[facility] [address] [place], [address] Platelet mean volume (Bld) [Entitic vol] 8.9 fL Normal 6.2-12.0 [facility] Comment on above: Performed By: #### L 500.2500, L100.0100 ####[facility] [address] [place], [address] Platelets (Bld) [#/Vol] 296 10*3/uL Normal 150-450 [facility] Comment on above: Performed By: #### L 500.2500, L100.0100 ####[facility] [address] [place], [address] RBC (Bld) [#/Vol] 2.83 10*6/uL Low 4.2-5.4 [facility] Comment on above: Performed By: #### L 500.2500, L100.0100 ####[facility] [address] [place], [address] RDW SD 52.6 fl High 35.1-43.9 [facility] Comment on above: Performed By: #### L 500.2500, L100.0100 ####[facility] [address] [place], [address] WBC (Bld) [#/Vol] 4.0 10*3/uL Low 4.4-11.0 [facility] Comment on above: Performed By: #### L 500.2500, L100.0100 ####[facility] [address] [place], [address] Carbon dioxide measurementOr dered By: Young Ng on 08-20-2024 CO2 [Moles/Vol] 28.0 mmol/L 21.0-32.0 [facility] Chloride measurementOrdered By: Young Ng on 08-20-2024 Chloride [Moles/Vol] 108 mmol/L High 98-107 [facility] Eosinophil percentageOrdered By: Young Leslie08-20-2024 Eosinophils/100 WBC (Bld) 0.3 % 0-5 [facility] Erythrocyte distribution wid th ratioOrdered By: Young Leslieok on 08-20-2024 Erythrocyte distribution width (RBC) [Ratio] 14.9 % High 11.6-14.6 [facility] Erythrocyte distribution wid th standard deviationOrdered By: Young Ng on 08-20-2024 Erythrocyte distribution width (RBC) [Entitic vol] 52.6 fL High 35.1-43.9 [facility] Estimated glomerular filtrat ion rate (GFR) AmericanOrdered By: Young Ng on 08-20-2024 Estimated GFR (MDRD) Amer 117 mL/min >60 [facility] Comment on above: GFR Calc Estimation of creatinine deangelo aranceOrdered By: Young Ng on 08-20-2024 Estimated Creatinine Clearance Calc 59.15 ml/min [facility] Glomerular filtration rate ( GFR) estimationOrdered By: Young Ng on 08-20-2024 Estimated GFR (MDRD) Non-Af Amer 97 mL/min >60 [facility] Comment on above: Non- GFR Calc Glucose measurementOrdered B y: Young Ng on 08-20-2024 Glucose [Mass/Vol] 106 mg/dL 74-106 [facility] Comment on above: Fasting Glucose resu lt from 100 to 125 mg/dL suggests IMPAIRED HOMEOSTASIS per A.D.A. criteria. HIP, UNI W/ Pelvis 2-3 Views on 08-20-2024 HIP, UNI W/ Pelvis 2-3 Views Normal [facility] Hematocrit Auto (Bld) [Volum e fraction]Ordered By: Young Ng on 08-20-2024 Hematocrit (Bld) [Volume fraction] 27.1 % Low 37-47 [facility] Hemoglobin measurementOrdere d By: Young Ng on 08-20-2024 Hemoglobin (Bld) [Mass/Vol] 8.2 g/dL Low 12.0-15.0 [facility] Immature granulocytes/100 WB C Auto (Bld)Ordered By: Young Ng on 08-20-2024 Immature granulocytes/100 WBC (Bld) 0.300 % 0.0-0.9 [facility] Comment on above: IG% - Immature Granu locytes (promyelocytes, myelocytes and metamyelocytes) > 1% indicates that a LEFT SHIFT is Present. Lymphocytes Auto (Unsp spec) [#/Vol]Ordered By: Young Ng on 08-20-2024 Lymphocytes (Bld) [#/Vol] 1.10 10*3/uL 0.83-4.51 [facility] Lymphocytes/100 WBC Auto (Un sp spec)Ordered By: Young Ng on 08-20-2024 Lymphocytes/100 WBC (Bld) 27.8 % 19-41 [facility] MCV (mean corpuscular volume ) determinationOrdered By: Young Ng on 08-20-2024 MCV (RBC) [Entitic vol] 95.8 fL 81-99 [facility] Mean corpuscular hemoglobin (MCH) determinationOrdered By: Young Leslieok on 08-20-2024 MCH (RBC) [Entitic mass] 29.0 pg 27.0-32.0 [facility] Mean corpuscular hemoglobin concentration (MCHC) determinationOrdered By: Young Ng on 08-20-2024 MCHC (RBC) [Mass/Vol] 30.3 g/dL Low 32-36 [facility] Mean platelet volume determi nationOrdered By: Young Ng on 08-20-2024 Platelet mean volume (Bld) [Entitic vol] 8.9 fL 6.2-12.0 [facility] Monocyte percentageOrdered B y: Young Ng on 08-20-2024 Monocytes/100 WBC (Bld) 14.9 % High 0-10 [facility] Neutrophil percentageOrdered By: Young Leslieok on 08-20-2024 Neutrophils/100 WBC (Bld) 55.9 % 47-70 [facility] Nucleated red blood cell per centageOrdered By: Young Ng on 08-20-2024 Nucleated RBC/100 WBC (Bld) [Ratio] 0 % 0-5 [facility] Platelet countOrdered By: Ken Ng on 08-20-2024 Platelets (Bld) [#/Vol] 296 10*3/uL 150-450 [facility] Potassium measurementOrdered By: Young Ng on 08-20-2024 Potassium [Moles/Vol] 3.5 mmol/L 3.5-5.1 [facility] RBC Auto (Bld) [#/Vol]Ordere d By: Young Ng on 08-20-2024 RBC (Bld) [#/Vol] 2.83 10*6/uL Low 4.2-5.4 [facility] Serum anion gap measurementO rdered By: Young Ng on 08-20-2024 Anion gap [Moles/Vol] 5 mmol/L 5-15 [facility] Serum or plasma calcium bennie urement (mass/volume)Ordered By: Young Ng on 08-20-2024 Calcium [Mass/Vol] 8.4 mg/dL Low 8.5-10.1 [facility] Serum or plasma creatinine m easurement (mass/volume)Ordered By: Young Hernandez on 08-20-2024 Creatinine [Mass/Vol] 0.64 mg/dL 0.55-1.02 [facility] Comment on above: The validity of the calculated GFR & GFRAA in patients over 70 years has not been determined. Clinical correlation is essential. Serum or plasma urea nitroge n measurement (mass/volume)Ordered By: Young Ng on 08-20-2024 Urea nitrogen [Mass/Vol] 12 mg/dL 03-21 [facility] Sodium levelOrdered By: Young Hernandez on 08-20-2024 Sodium [Moles/Vol] 141 mmol/L 136-145 [facility] White blood cell (WBC) count Ordered By: Young Hernandez on 08-20-2024 WBC (Bld) [#/Vol] 4.0 10*3/uL Low 4.4-11.0 [facility] CBC W/Diff, Automatedon 08-04 Absolute Lymph 1.24 X10 3/uL Normal 0.83-4.51 [facility] Comment on above: Performed By: #### L 100.0100 ####[facility] [address] [place], [address] Absolute Neut 2.5 X10 3/uL Normal 2.0-7.7 [facility] Comment on above: Performed By: #### L 100.0100 ####[facility] [address] [place], [address] Basophils/100 WBC (Bld) 0.7 % Normal 0-1 [facility] Comment on above: Performed By: #### L 100.0100 ####[facility] [address] [place], [address] Eosinophils/100 WBC (Bld) 0.5 % Normal 0-5 [facility] Comment on above: Performed By: #### L 100.0100 ####[facility] [address] [place], [address] Erythrocyte distribution width (RBC) [Ratio] 14.9 % High 11.6-14.6 [facility] Comment on above: Performed By: #### L 100.0100 ####[facility] [address] [place], [address] Hematocrit (Bld) [Volume fraction] 30.3 % Low 37-47 [facility] Comment on above: Performed By: #### L 100.0100 ####[facility] [address] [place], [address] Hemoglobin (Bld) [Mass/Vol] 9.4 g/dL Low 12.0-15.0 [facility] Comment on above: Performed By: #### L 100.0100 ####[facility] [address] [place], [address] IG% 0.500 Normal 0.0-0.9 [facility] Comment on above: Result Comment: IG% - Immature Granulocytes (promyelocytes, myelocytes andmetamyelocytes) > 1% indicates that a LEFT SHIFT is Present. Performed By: #### L 100.0100 ####[facility] [address] [place], [address] Lymphocytes/100 WBC (Bld) 28.4 % Normal 19-41 [facility] Comment on above: Performed By: #### L 100.0100 ####[facility] [address] [place], [address] MCH (RBC) [Entitic mass] 29.3 pg Normal 27.0-32.0 [facility] Comment on above: Performed By: #### L 100.0100 ####[facility] [address] [place], [address] MCHC (RBC) [Mass/Vol] 31.0 g/dL Low 32-36 [facility] Comment on above: Performed By: #### L 100.0100 ####[facility] [address] [place], [address] MCV (RBC) [Entitic vol] 94.4 fL Normal 81-99 [facility] Comment on above: Performed By: #### L 100.0100 ####[facility] [address] [place], [address] Monocytes/100 WBC (Bld) 13.5 % High 0-10 [facility] Comment on above: Performed By: #### L 100.0100 ####[facility] [address] [place], [address] Neutrophils/100 WBC (Bld) 56.4 % Normal 47-70 [facility] Comment on above: Performed By: #### L 100.0100 ####[facility] [address] [place], [address] Nucleated RBC (Bld) [#/Vol] 0 10*3/uL Normal 0-5 [facility] Comment on above: Performed By: #### L 100.0100 ####[facility] [address] [place], [address] Platelet mean volume (Bld) [Entitic vol] 8.5 fL Normal 6.2-12.0 [facility] Comment on above: Performed By: #### L 100.0100 ####[facility] [address] [place], [address] Platelets (Bld) [#/Vol] 327 10*3/uL Normal 150-450 [facility] Comment on above: Performed By: #### L 100.0100 ####[facility] [address] [place], [address] RBC (Bld) [#/Vol] 3.21 10*6/uL Low 4.2-5.4 [facility] Comment on above: Performed By: #### L 100.0100 ####[facility] [address] [place], [address] RDW SD 52.0 fl High 35.1-43.9 [facility] Comment on above: Performed By: #### L 100.0100 ####[facility] [address] [place], [address] WBC (Bld) [#/Vol] 4.4 10*3/uL Normal 4.4-11.0 [facility] Comment on above: Performed By: #### L 100.0100 ####[facility] [address] [place], [address] COVID 19 AG RAPID (IMELDA Ruano)on 08-19-2024 SARS-CoV-2 (COVID-19) RNA ARIANE+probe Ql (Unsp spec) Normal [facility] Comment on above: Performed By: #### M 100.505 ####[facility] [address] [place], [address] SARS-CoV-2 (COVID-19) Ag IA. rapid Ql (Resp)Ordered By: Young Ng on 08-19-2024 SARS-CoV-2 Antigen (Rapid) [facility] Venous Duplex US, Unilateral on 08-19-2024 Venous Duplex US, Unilateral Normal [facility] HH, Hemoglobin AND Hematocri ton 08-14-2024 Hematocrit (Bld) [Volume fraction] 27.8 % Low 37-47 [facility] Comment on above: Performed By: #### L 100.0600 ####[facility] [address] [place], [address] Hemoglobin (Bld) [Mass/Vol] 8.7 g/dL Low 12.0-15.0 [facility] Comment on above: Performed By: #### L 100.0600 ####[facility] [address] [place], [address] Basic Metabolic Profile (BMP )on 08-13-2024 BUN/CRE 21.6 RATIO High 10-20 [facility] Comment on above: Performed By: #### L 500.2500, L100.0100 ####[facility] [address] [place], [address] CA,Total 8.5 mg/dL Normal 8.5-10.1 [facility] Comment on above: Performed By: #### L 500.2500, L100.0100 ####[facility] [address] [place], [address] Chloride [Moles/Vol] 108 mmol/L High 98-107 [facility] Comment on above: Performed By: #### L 500.2500, L100.0100 ####[facility] [address] [place], [address] CO2 [Moles/Vol] 31.0 mmol/L Normal 21.0-32.0 [facility] Comment on above: Performed By: #### L 500.2500, L100.0100 ####[facility] [address] [place], [address] Creatinine [Mass/Vol] 0.60 mg/dL Normal 0.55-1.02 [facility] Comment on above: Result Comment: The validity of the calculated GFR GFRAA in patients over70 years has not been determined. Clinical correlation isessential. Performed By: #### L 500.2500, L100.0100 ####[facility] [address] [place], [address] ECRCL 57.91 ml/min Normal [facility] Comment on above: Performed By: #### L 500.2500, L100.0100 ####[facility] [address] [place], [address] EST GFR - AA 126 mL/min Normal >60 [facility] Comment on above: Result Comment: Afri can Maltese GFR Calc Performed By: #### L 500.2500, L100.0100 ####[facility] [address] [place], [address] GAP 3 Low 5-15 [facility] Comment on above: Performed By: #### L 500.2500, L100.0100 ####[facility] [address] [place], [address] GFR/1.73 sq M.predicted among non-blacks MDRD (S/P/Bld) [Vol rate/Area] 104 mL/min/{1.73_m2} Normal >60 [facility] Comment on above: Result Comment: Non- GFR Calc Performed By: #### L 500.2500, L100.0100 ####[facility] [address] [place], [address] Glucose [Mass/Vol] 111 mg/dL High 74-106 [facility] Comment on above: Result Comment: Fast ing Glucose result from 100 to 125 mg/dLsuggests IMPAIRED HOMEOSTASIS per A.D.A. criteria. Performed By: #### L 500.2500, L100.0100 ####[facility] [address] [place], [address] Potassium [Moles/Vol] 3.5 mmol/L Normal 3.5-5.1 [facility] Comment on above: Performed By: #### L 500.2500, L100.0100 ####[facility] [address] [place], [address] Sodium [Moles/Vol] 142 mmol/L Normal 136-145 [facility] Comment on above: Performed By: #### L 500.2500, L100.0100 ####[facility] [address] [place], [address] Urea nitrogen [Mass/Vol] 13 mg/dL Normal 7-18 [facility] Comment on above: Performed By: #### L 500.2500, L100.0100 ####[facility] [address] [place], [address] CBC W/Diff, Automatedon 12- 0-2024 Absolute Lymph 1.24 X10 3/uL Normal 0.83-4.51 [facility] Comment on above: Performed By: #### L 500.2500, L100.0100 ####[facility] [address] [place], [address] Absolute Neut 2.2 X10 3/uL Normal 2.0-7.7 [facility] Comment on above: Performed By: #### L 500.2500, L100.0100 ####[facility] [address] [place], [address] Basophils/100 WBC (Bld) 0.7 % Normal 0-1 [facility] Comment on above: Performed By: #### L 500.2500, L100.0100 ####[facility] [address] [place], [address] Eosinophils/100 WBC (Bld) 0.5 % Normal 0-5 [facility] Comment on above: Performed By: #### L 500.2500, L100.0100 ####[facility] [address] [place], [address] Erythrocyte distribution width (RBC) [Ratio] 15.5 % High 11.6-14.6 [facility] Comment on above: Performed By: #### L 500.2500, L100.0100 ####[facility] [address] [place], [address] Hematocrit (Bld) [Volume fraction] 27.7 % Low 37-47 [facility] Comment on above: Performed By: #### L 500.2500, L100.0100 ####[facility] [address] [place], [address] Hemoglobin (Bld) [Mass/Vol] 8.4 g/dL Low 12.0-15.0 [facility] Comment on above: Performed By: #### L 500.2500, L100.0100 ####[facility] [address] [place], [address] IG% 0.200 Normal 0.0-0.9 [facility] Comment on above: Result Comment: IG% - Immature Granulocytes (promyelocytes, myelocytes andmetamyelocytes) > 1% indicates that a LEFT SHIFT is Present. Performed By: #### L 500.2500, L100.0100 ####[facility] [address] [place], [address] Lymphocytes/100 WBC (Bld) 29.5 % Normal 19-41 [facility] Comment on above: Performed By: #### L 500.2500, L100.0100 ####[facility] [address] [place], [address] MCH (RBC) [Entitic mass] 29.1 pg Normal 27.0-32.0 [facility] Comment on above: Performed By: #### L 500.2500, L100.0100 ####[facility] [address] [place], [address] MCHC (RBC) [Mass/Vol] 30.3 g/dL Low 32-36 [facility] Comment on above: Performed By: #### L 500.2500, L100.0100 ####[facility] [address] [place], [address] MCV (RBC) [Entitic vol] 95.8 fL Normal 81-[address] [facility] Comment on above: Performed By: #### L 500.2500, L100.0100 ####[facility] [address] [place], [address] Monocytes/100 WBC (Bld) 16.4 % High 0-10 [facility] Comment on above: Performed By: #### L 500.2500, L100.0100 ####[facility] [address] [place], [address] Neutrophils/100 WBC (Bld) 52.7 % Normal 47-70 [facility] Comment on above: Performed By: #### L 500.2500, L100.0100 ####[facility] [address] [place], [address] Nucleated RBC (Bld) [#/Vol] 0 10*3/uL Normal 0-5 [facility] Comment on above: Performed By: #### L 500.2500, L100.0100 ####[facility] [address] [place], [address] Platelet mean volume (Bld) [Entitic vol] 8.7 fL Normal 6.2-12.0 [facility] Comment on above: Performed By: #### L 500.2500, L100.0100 ####[facility] [address] [place], [address] Platelets (Bld) [#/Vol] 381 10*3/uL Normal 150-450 [facility] Comment on above: Performed By: #### L 500.2500, L100.0100 ####[facility] [address] [place], [address] RBC (Bld) [#/Vol] 2.89 10*6/uL Low 4.2-5.4 [facility] Comment on above: Performed By: #### L 500.2500, L100.0100 ####[facility] [address] [place], [address] RDW SD 54.0 fl High 35.1-43.9 [facility] Comment on above: Performed By: #### L 500.2500, L100.0100 ####[facility] [address] [place], [address] WBC (Bld) [#/Vol] 4.2 10*3/uL Low 4.4-11.0 [facility] Comment on above: Performed By: #### L 500.2500, L100.0100 ####[facility] [address] [place], [address] Lower GI hemoglobin IA Ql (S tl)Ordered By: Young Ng on 08-13-2024 Stool Occult Blood (SINCERE) Positive Abnormal [facility] Stool Occult Blood iFOBon STOB Positive Normal [facility] Comment on above: Performed By: #### M 100.7900 ####[facility] [address] [place], [address] COVID 19 AG RAPID (IMELDA Ruano)on 08-12-2024 SARS-CoV-2 (COVID-19) RNA ARIANE+probe Ql (Unsp spec) Normal [facility] Comment on above: Performed By: #### M 100.505 ####[facility] [address] [place], [address] SARS-CoV-2 (COVID-19) Ag IA. rapid Ql (Resp)Ordered By: Young Ng on 08-12-2024 SARS-CoV-2 Antigen (Rapid) [facility] HH, Hemoglobin AND Hematocri ton 08-10-2024 Hematocrit (Bld) [Volume fraction] 28.0 % Low 37-47 [facility] Comment on above: Performed By: #### L 100.0600 ####[facility] [address] [place], [address] Hemoglobin (Bld) [Mass/Vol] 8.7 g/dL Low 12.0-15.0 [facility] Comment on above: Performed By: #### L 100.0600 ####[facility] [address] [place], [address] CBC W/Diff, Automatedon 12-0 -2023 Absolute Neut Normal 2.0-7.7 [facility] Comment on above: Result Comment: Canc elled via OM: Order cancelled - Patient discharged Performed By: #### L 100.0100 ####[facility] [address] [place], [address] HCT Normal 37-47 [facility] Comment on above: Result Comment: Canc elled via OM: Order cancelled - Patient discharged Performed By: #### L 100.0100 ####[facility] [address] [place], [address] HGB Normal 12.0-15.0 [facility] Comment on above: Result Comment: Canc elled via OM: Order cancelled - Patient discharged Performed By: #### L 100.0100 ####[facility] [address] [place], [address] MCH Normal 27.0-32.0 [facility] Comment on above: Result Comment: Canc elled via OM: Order cancelled - Patient discharged Performed By: #### L 100.0100 ####[facility] [address] [place], [address] MCHC Normal 32-36 [facility] Comment on above: Result Comment: Canc elled via OM: Order cancelled - Patient discharged Performed By: #### L 100.0100 ####[facility] [address] [place], [address] MCV Normal 81-99 [facility] Comment on above: Result Comment: Canc elled via OM: Order cancelled - Patient discharged Performed By: #### L 100.0100 ####[facility] [address] [place], [address] NEUT% Normal 47-70 [facility] Comment on above: Result Comment: Canc elled via OM: Order cancelled - Patient discharged Performed By: #### L 100.0100 ####[facility] [address] [place], [address] PLT Normal 150-450 [facility] Comment on above: Result Comment: Canc elled via OM: Order cancelled - Patient discharged Performed By: #### L 100.0100 ####[facility] [address] [place], [address] RBC Normal 4.2-5.4 [facility] Comment on above: Result Comment: Canc elled via OM: Order cancelled - Patient discharged Performed By: #### L 100.0100 ####[facility] [address] [place], [address] RDW CV Normal 11.6-14.6 [facility] Comment on above: Result Comment: Canc elled via OM: Order cancelled - Patient discharged Performed By: #### L 100.0100 ####[facility] [address] [place], [address] RDW SD Normal 35.1-43.9 [facility] Comment on above: Result Comment: Canc elled via OM: Order cancelled - Patient discharged Performed By: #### L 100.0100 ####[facility] [address] [place], [address] WBC Normal 4.4-11.0 [facility] Comment on above: Result Comment: Canc elled via OM: Order cancelled - Patient discharged Performed By: #### L 100.0100 ####[facility] [address] [place], [address] CBC W/Diff, Automatedon 12-0 Absolute Neut Normal 2.0-7.7 [facility] Comment on above: Result Comment: Canc elled via OM: Order cancelled - Patient discharged Performed By: #### L 100.0100 ####[facility] [address] [place], [address] HCT Normal 37-47 [facility] Comment on above: Result Comment: Canc elled via OM: Order cancelled - Patient discharged Performed By: #### L 100.0100 ####[facility] [address] [place], [address] HGB Normal 12.0-15.0 [facility] Comment on above: Result Comment: Canc elled via OM: Order cancelled - Patient discharged Performed By: #### L 100.0100 ####[facility] [address] [place], [address] MCH Normal 27.0-32.0 [facility] Comment on above: Result Comment: Canc elled via OM: Order cancelled - Patient discharged Performed By: #### L 100.0100 ####[facility] [address] [place], [address] MCHC Normal 32-36 [facility] Comment on above: Result Comment: Canc elled via OM: Order cancelled - Patient discharged Performed By: #### L 100.0100 ####[facility] [address] [place], [address] MCV Normal 81-99 [facility] Comment on above: Result Comment: Canc elled via OM: Order cancelled - Patient discharged Performed By: #### L 100.0100 ####[facility] [address] [place], [address] NEUT% Normal 47-70 [facility] Comment on above: Result Comment: Canc elled via OM: Order cancelled - Patient discharged Performed By: #### L 100.0100 ####[facility] [address] [place], [address] PLT Normal 150-450 [facility] Comment on above: Result Comment: Canc elled via OM: Order cancelled - Patient discharged Performed By: #### L 100.0100 ####[facility] [address] [place], [address] RBC Normal 4.2-5.4 [facility] Comment on above: Result Comment: Canc elled via OM: Order cancelled - Patient discharged Performed By: #### L 100.0100 ####[facility] [address] [place], [address] RDW CV Normal 11.6-14.6 [facility] Comment on above: Result Comment: Canc elled via OM: Order cancelled - Patient discharged Performed By: #### L 100.0100 ####[facility] [address] [place], [address] RDW SD Normal 35.1-43.9 [facility] Comment on above: Result Comment: Canc elled via OM: Order cancelled - Patient discharged Performed By: #### L 100.0100 ####[facility] [address] [place], [address] WBC Normal 4.4-11.0 [facility] Comment on above: Result Comment: Canc elled via OM: Order cancelled - Patient discharged Performed By: #### L 100.0100 ####[facility] [address] [place], [address] HH, Hemoglobin AND Hematocri ton 08-07-2024 Hematocrit (Bld) [Volume fraction] 27.9 % Low 37-47 [facility] Comment on above: Performed By: #### L 100.0600 ####[facility] [address] [place], [address] Hemoglobin (Bld) [Mass/Vol] 8.9 g/dL Low 12.0-15.0 [facility] Comment on above: Performed By: #### L 100.0600 ####[facility] [address] [place], [address] Basic Metabolic Profile (BMP )on 08-06-2024 BUN/CRE 19.4 RATIO Normal 10-20 [facility] Comment on above: Performed By: #### L 100.0100, L500.2500 ####[facility] [address] [place], [address] CA,Total 8.3 mg/dL Low 8.5-10.1 [facility] Comment on above: Performed By: #### L 100.0100, L500.2500 ####[facility] [address] [place], [address] Chloride [Moles/Vol] 108 mmol/L High 98-107 [facility] Comment on above: Performed By: #### L 100.0100, L500.2500 ####[facility] [address] [place], [address] CO2 [Moles/Vol] 26.0 mmol/L Normal 21.0-32.0 [facility] Comment on above: Performed By: #### L 100.0100, L500.2500 ####[facility] [address] [place], [address] Creatinine [Mass/Vol] 0.46 mg/dL Low 0.55-1.02 [facility] Comment on above: Result Comment: The validity of the calculated GFR GFRAA in patients over70 years has not been determined. Clinical correlation isessential. Performed By: #### L 100.0100, L500.2500 ####[facility] [address] [place], [address] ECRCL 57.91 ml/min Normal [facility] Comment on above: Performed By: #### L 100.0100, L500.2500 ####[facility] [address] [place], [address] EST GFR - AA 170 mL/min Normal >60 [facility] Comment on above: Result Comment: Afri can Maltese GFR Calc Performed By: #### L 100.0100, L500.2500 ####[facility] [address] [place], [address] GAP 4 Low 5-15 [facility] Comment on above: Performed By: #### L 100.0100, L500.2500 ####[facility] [address] [place], [address] GFR/1.73 sq M.predicted among non-blacks MDRD (S/P/Bld) [Vol rate/Area] 141 mL/min/{1.73_m2} Normal >60 [facility] Comment on above: Result Comment: Non- GFR Calc Performed By: #### L 100.0100, L500.2500 ####[facility] [address] [place], [address] Glucose [Mass/Vol] 115 mg/dL High 74-106 [facility] Comment on above: Result Comment: Fast ing Glucose result from 100 to 125 mg/dLsuggests IMPAIRED HOMEOSTASIS per A.D.A. criteria. Performed By: #### L 100.0100, L500.2500 ####[facility] [address] [place], [address] Potassium [Moles/Vol] 3.6 mmol/L Normal 3.5-5.1 [facility] Comment on above: Performed By: #### L 100.0100, L500.2500 ####[facility] [address] [place], [address] Sodium [Moles/Vol] 138 mmol/L Normal 136-145 [facility] Comment on above: Performed By: #### L 100.0100, L500.2500 ####[facility] [address] [place], [address] Urea nitrogen [Mass/Vol] 9 mg/dL Normal 7-18 [facility] Comment on above: Performed By: #### L 100.0100, L500.2500 ####[facility] [address] [place], [address] BUN Normal 7-18 [facility] Comment on above: Result Comment: Canc elled via OM: Order cancelled - Patient discharged Performed By: #### L 500.2500 ####[facility] [address] [place], [address] BUN/CRE Normal 10-20 [facility] Comment on above: Result Comment: Canc elled via OM: Order cancelled - Patient discharged Performed By: #### L 500.2500 ####[facility] [address] [place], [address] CA,Total Normal 8.5-10.1 [facility] Comment on above: Result Comment: Canc elled via OM: Order cancelled - Patient discharged Performed By: #### L 500.2500 ####[facility] [address] [place], [address] CL Normal 98-107 [facility] Comment on above: Result Comment: Canc elled via OM: Order cancelled - Patient discharged Performed By: #### L 500.2500 ####[facility] [address] [place], [address] CO2 Normal 21.0-32.0 [facility] Comment on above: Result Comment: Canc elled via OM: Order cancelled - Patient discharged Performed By: #### L 500.2500 ####[facility] [address] [place], [address] CREAT,SERUM Normal 0.55-1.02 [facility] Comment on above: Result Comment: Canc elled via OM: Order cancelled - Patient discharged Performed By: #### L 500.2500 ####[facility] [address] [place], [address] EST GFR Normal >60 [facility] Comment on above: Result Comment: Canc elled via OM: Order cancelled - Patient discharged Performed By: #### L 500.2500 ####[facility] [address] [place], [address] EST GFR - AA Normal >60 [facility] Comment on above: Result Comment: Canc elled via OM: Order cancelled - Patient discharged Performed By: #### L 500.2500 ####[facility] [address] [place], [address] GAP Normal 5-15 [facility] Comment on above: Result Comment: Canc elled via OM: Order cancelled - Patient discharged Performed By: #### L 500.2500 ####[facility] [address] [place], [address] GLU Normal 74-106 [facility] Comment on above: Result Comment: Canc elled via OM: Order cancelled - Patient discharged Performed By: #### L 500.2500 ####[facility] [address] [place], [address] Potassium Normal 3.5-5.1 [facility] Comment on above: Result Comment: Canc elled via OM: Order cancelled - Patient discharged Performed By: #### L 500.2500 ####[facility] [address] [place], [address] Basic Metabolic Profile (BMP) Normal 136-145 [facility] Comment on above: Result Comment: Canc elled via OM: Order cancelled - Patient discharged Performed By: #### L 500.2500 ####[facility] [address] [place], [address] CBC W/Diff, Automatedon 12-0 Absolute Neut Normal 2.0-7.7 [facility] Comment on above: Result Comment: Canc elled via OM: Order cancelled - Patient discharged Performed By: #### L 100.0100 ####[facility] [address] [place], [address] HCT Normal 37-47 [facility] Comment on above: Result Comment: Canc elled via OM: Order cancelled - Patient discharged Performed By: #### L 100.0100 ####[facility] [address] [place], [address] HGB Normal 12.0-15.0 [facility] Comment on above: Result Comment: Canc elled via OM: Order cancelled - Patient discharged Performed By: #### L 100.0100 ####[facility] [address] [place], [address] MCH Normal 27.0-32.0 [facility] Comment on above: Result Comment: Canc elled via OM: Order cancelled - Patient discharged Performed By: #### L 100.0100 ####[facility] [address] [place], [address] MCHC Normal 32-36 [facility] Comment on above: Result Comment: Canc elled via OM: Order cancelled - Patient discharged Performed By: #### L 100.0100 ####[facility] [address] [place], [address] MCV Normal 81-99 [facility] Comment on above: Result Comment: Canc elled via OM: Order cancelled - Patient discharged Performed By: #### L 100.0100 ####[facility] [address] [place], [address] NEUT% Normal 47-70 [facility] Comment on above: Result Comment: Canc elled via OM: Order cancelled - Patient discharged Performed By: #### L 100.0100 ####[facility] [address] [place], [address] PLT Normal 150-450 [facility] Comment on above: Result Comment: Canc elled via OM: Order cancelled - Patient discharged Performed By: #### L 100.0100 ####[facility] [address] [place], [address] RBC Normal 4.2-5.4 [facility] Comment on above: Result Comment: Canc elled via OM: Order cancelled - Patient discharged Performed By: #### L 100.0100 ####[facility] [address] [place], [address] RDW CV Normal 11.6-14.6 [facility] Comment on above: Result Comment: Canc elled via OM: Order cancelled - Patient discharged Performed By: #### L 100.0100 ####[facility] [address] [place], [address] RDW SD Normal 35.1-43.9 [facility] Comment on above: Result Comment: Canc elled via OM: Order cancelled - Patient discharged Performed By: #### L 100.0100 ####[facility] [address] [place], [address] WBC Normal 4.4-11.0 [facility] Comment on above: Result Comment: Canc elled via OM: Order cancelled - Patient discharged Performed By: #### L 100.0100 ####[facility] [address] [place], [address] Absolute Lymph 1.33 X10 3/uL Normal 0.83-4.51 [facility] Comment on above: Performed By: #### L 100.0100, L500.2500 ####[facility] [address] [place], [address] Absolute Neut 4.4 X10 3/uL Normal 2.0-7.7 [facility] Comment on above: Performed By: #### L 100.0100, L500.2500 ####[facility] [address] [place], [address] Basophils/100 WBC (Bld) 0.4 % Normal 0-1 [facility] Comment on above: Performed By: #### L 100.0100, L500.2500 ####[facility] [address] [place], [address] Eosinophils/100 WBC (Bld) 2.7 % Normal 0-5 [facility] Comment on above: Performed By: #### L 100.0100, L500.2500 ####[facility] [address] [place], [address] Erythrocyte distribution width (RBC) [Ratio] 15.4 % High 11.6-14.6 [facility] Comment on above: Performed By: #### L 100.0100, L500.2500 ####[facility] [address] [place], [address] Hematocrit (Bld) [Volume fraction] 27.3 % Low 37-47 [facility] Comment on above: Performed By: #### L 100.0100, L500.2500 ####[facility] [address] [place], [address] Hemoglobin (Bld) [Mass/Vol] 8.8 g/dL Low 12.0-15.0 [facility] Comment on above: Performed By: #### L 100.0100, L500.2500 ####[facility] [address] [place], [address] IG% 0.900 Normal 0.0-0.9 [facility] Comment on above: Result Comment: IG% - Immature Granulocytes (promyelocytes, myelocytes andmetamyelocytes) > 1% indicates that a LEFT SHIFT is Present. Performed By: #### L 100.0100, L500.2500 ####[facility] [address] [place], [address] Lymphocytes/100 WBC (Bld) 19.6 % Normal 19-41 [facility] Comment on above: Performed By: #### L 100.0100, L500.2500 ####[facility] [address] [place], [address] MCH (RBC) [Entitic mass] 29.3 pg Normal 27.0-32.0 [facility] Comment on above: Performed By: #### L 100.0100, L500.2500 ####[facility] [address] [place], [address] MCHC (RBC) [Mass/Vol] 32.2 g/dL Normal 32-36 [facility] Comment on above: Performed By: #### L 100.0100, L500.2500 ####[facility] [address] [place], [address] MCV (RBC) [Entitic vol] 91.0 fL Normal 81-[address] [facility] Comment on above: Performed By: #### L 100.0100, L500.2500 ####[facility] [address] [place], [address] Monocytes/100 WBC (Bld) 12.1 % High 0-[address] [facility] Comment on above: Performed By: #### L 100.0100, L500.2500 ####[facility] [address] [place], [address] Neutrophils/100 WBC (Bld) 64.3 % Normal 47-70 [facility] Comment on above: Performed By: #### L 100.0100, L500.2500 ####[facility] [address] [place], [address] Nucleated RBC (Bld) [#/Vol] 0 10*3/uL Normal 0-5 [facility] Comment on above: Performed By: #### L 100.0100, L500.2500 ####[facility] [address] [place], [address] Platelet mean volume (Bld) [Entitic vol] 8.6 fL Normal 6.2-12.0 [facility] Comment on above: Performed By: #### L 100.0100, L500.2500 ####[facility] [address] [place], [address] Platelets (Bld) [#/Vol] 430 10*3/uL Normal 150-450 [facility] Comment on above: Performed By: #### L 100.0100, L500.2500 ####[facility] [address] [place], [address] RBC (Bld) [#/Vol] 3.00 10*6/uL Low 4.2-5.4 [facility] Comment on above: Performed By: #### L 100.0100, L500.2500 ####[facility] [address] [place], [address] RDW SD 50.8 fl High 35.1-43.9 [facility] Comment on above: Performed By: #### L 100.0100, L500.2500 ####[facility] [address] [place], [address] WBC (Bld) [#/Vol] 6.8 10*3/uL Normal 4.4-11.0 [facility] Comment on above: Performed By: #### L 100.0100, L500.2500 ####[facility] [address] [place], [address] Absolute neutrophil countOrd ered By: Mohini Willson on 08-05-2024 Neutrophils (Bld) [#/Vol] 4.6 10*3/uL 2.0-7.7 [facility] Basic Metabolic Profile (BMP )on 08-05-2024 BUN/CRE 16.4 RATIO Normal 10-20 [facility] Comment on above: Performed By: #### L 500.2500 ####[facility] [address] [place], [address] CA,Total 8.0 mg/dL Low 8.5-10.1 [facility] Comment on above: Performed By: #### L 500.2500 ####[facility] [address] [place], [address] Chloride [Moles/Vol] 108 mmol/L High 98-107 [facility] Comment on above: Performed By: #### L 500.2500 ####[facility] [address] [place], [address] CO2 [Moles/Vol] 25.0 mmol/L Normal 21.0-32.0 [facility] Comment on above: Performed By: #### L 500.2500 ####[facility] [address] [place], [address] Creatinine [Mass/Vol] 0.43 mg/dL Low 0.55-1.02 [facility] Comment on above: Result Comment: The validity of the calculated GFR GFRAA in patients over70 years has not been determined. Clinical correlation isessential. Performed By: #### L 500.2500 ####[facility] [address] [place], [address] ECRCL 57.73 ml/min Normal [facility] Comment on above: Performed By: #### L 500.2500 ####[facility] [address] [place], [address] EST GFR - AA 188 mL/min Normal >60 [facility] Comment on above: Result Comment: Afri can Maltese GFR Calc Performed By: #### L 500.2500 ####[facility] [address] [place], [address] GAP 7 Normal 5-15 [facility] Comment on above: Performed By: #### L 500.2500 ####[facility] [address] [place], [address] GFR/1.73 sq M.predicted among non-blacks MDRD (S/P/Bld) [Vol rate/Area] 155 mL/min/{1.73_m2} Normal >60 [facility] Comment on above: Result Comment: Non- GFR Calc Performed By: #### L 500.2500 ####[facility] [address] [place], [address] Glucose [Mass/Vol] 118 mg/dL High 74-106 [facility] Comment on above: Result Comment: Fast ing Glucose result from 100 to 125 mg/dLsuggests IMPAIRED HOMEOSTASIS per A.D.A. criteria. Performed By: #### L 500.2500 ####[facility] [address] [place], [address] Potassium [Moles/Vol] 3.1 mmol/L Low 3.5-5.1 [facility] Comment on above: Performed By: #### L 500.2500 ####[facility] [address] [place], [address] Sodium [Moles/Vol] 140 mmol/L Normal 136-145 [facility] Comment on above: Performed By: #### L 500.2500 ####[facility] [address] [place], [address] Urea nitrogen [Mass/Vol] 7 mg/dL Normal 7-18 [facility] Comment on above: Performed By: #### L 500.2500 ####[facility] [address] [place], [address] Basophil percentageOrdered B y: Mohini Willson on 08-05-2024 Basophils/100 WBC (Bld) 0.5 % 0-1 [facility] Blood urea nitrogen (BUN)/cr eatinine ratioOrdered By: Mohini Willson on 08-05-2024 Urea nitrogen/Creatinine [Mass ratio] 16.4 mg/mg 10-20 [facility] CBC W/Diff, Automatedon 12-0 Absolute Lymph 1.10 X10 3/uL Normal 0.83-4.51 [facility] Comment on above: Performed By: #### L 100.0100 ####[facility] [address] [place], [address] Absolute Neut 4.6 X10 3/uL Normal 2.0-7.7 [facility] Comment on above: Performed By: #### L 100.0100 ####[facility] [address] [place], [address] Basophils/100 WBC (Bld) 0.5 % Normal 0-1 [facility] Comment on above: Performed By: #### L 100.0100 ####[facility] [address] [place], [address] Eosinophils/100 WBC (Bld) 0.8 % Normal 0-5 [facility] Comment on above: Performed By: #### L 100.0100 ####[facility] [address] [place], [address] Erythrocyte distribution width (RBC) [Ratio] 15.4 % High 11.6-14.6 [facility] Comment on above: Performed By: #### L 100.0100 ####[facility] [address] [place], [address] Hematocrit (Bld) [Volume fraction] 27.4 % Low 37-47 [facility] Comment on above: Performed By: #### L 100.0100 ####[facility] [address] [place], [address] Hemoglobin (Bld) [Mass/Vol] 9.0 g/dL Low 12.0-15.0 [facility] Comment on above: Performed By: #### L 100.0100 ####[facility] [address] [place], [address] IG% 0.600 Normal 0.0-0.9 [facility] Comment on above: Result Comment: IG% - Immature Granulocytes (promyelocytes, myelocytes andmetamyelocytes) > 1% indicates that a LEFT SHIFT is Present. Performed By: #### L 100.0100 ####[facility] [address] [place], [address] Lymphocytes/100 WBC (Bld) 17.0 % Low 19-41 [facility] Comment on above: Performed By: #### L 100.0100 ####[facility] [address] [place], [address] MCH (RBC) [Entitic mass] 29.9 pg Normal 27.0-32.0 [facility] Comment on above: Performed By: #### L 100.0100 ####[facility] [address] [place], [address] MCHC (RBC) [Mass/Vol] 32.8 g/dL Normal 32-36 [facility] Comment on above: Performed By: #### L 100.0100 ####[facility] [address] [place], [address] MCV (RBC) [Entitic vol] 91.0 fL Normal 81-[address] [facility] Comment on above: Performed By: #### L 100.0100 ####[facility] [address] [place], [address] Monocytes/100 WBC (Bld) 11.0 % High 0-10 [facility] Comment on above: Performed By: #### L 100.0100 ####[facility] [address] [place], [address] Neutrophils/100 WBC (Bld) 70.1 % High 47-70 [facility] Comment on above: Performed By: #### L 100.0100 ####[facility] [address] [place], [address] Nucleated RBC (Bld) [#/Vol] 0 10*3/uL Normal 0-5 [facility] Comment on above: Performed By: #### L 100.0100 ####[facility] [address] [place], [address] Platelet mean volume (Bld) [Entitic vol] 8.7 fL Normal 6.2-12.0 [facility] Comment on above: Performed By: #### L 100.0100 ####[facility] [address] [place], [address] Platelets (Bld) [#/Vol] 433 10*3/uL Normal 150-450 [facility] Comment on above: Performed By: #### L 100.0100 ####[facility] [address] [place], [address] RBC (Bld) [#/Vol] 3.01 10*6/uL Low 4.2-5.4 [facility] Comment on above: Performed By: #### L 100.0100 ####[facility] [address] [place], [address] RDW SD 50.4 fl High 35.1-43.9 [facility] Comment on above: Performed By: #### L 100.0100 ####[facility] [address] [place], [address] WBC (Bld) [#/Vol] 6.5 10*3/uL Normal 4.4-11.0 [facility] Comment on above: Performed By: #### L 100.0100 ####[facility] [address] [place], [address] Carbon dioxide measurementOr dered By: Mohini Willson on 08-05-2024 CO2 [Moles/Vol] 25.0 mmol/L 21.0-32.0 [facility] Chloride measurementOrdered By: Mohini Willson on 08-05-2024 Chloride [Moles/Vol] 108 mmol/L High 98-107 [facility] Eosinophil percentageOrdered By: Mohini Willson on 08-05-2024 Eosinophils/100 WBC (Bld) 0.8 % 0-5 [facility] Erythrocyte distribution wid th ratioOrdered By: Mohini Willson on 08-05-2024 Erythrocyte distribution width (RBC) [Ratio] 15.4 % High 11.6-14.6 [facility] Erythrocyte distribution wid th standard deviationOrdered By: Mohini Willson on 08-05-2024 Erythrocyte distribution width (RBC) [Entitic vol] 50.4 fL High 35.1-43.9 [facility] Estimated glomerular filtrat ion rate (GFR) AmericanOrdered By: Mohini Willson on 08-05-2024 Estimated GFR (MDRD) Amer 188 mL/min >60 [facility] Comment on above: GFR Calc Estimation of creatinine deangelo aranceOrdered By: Mohini Willson on 08-05-2024 Estimated Creatinine Clearance Calc 57.73 ml/min [facility] Glomerular filtration rate ( GFR) estimationOrdered By: Mohini Willson on 08-05-2024 Estimated GFR (MDRD) Non-Af Amer 155 mL/min >60 [facility] Comment on above: Non- GFR Calc Glucose measurementOrdered B y: Mohini Willson on 08-05-2024 Glucose [Mass/Vol] 118 mg/dL High 74-106 [facility] Comment on above: Fasting Glucose resu lt from 100 to 125 mg/dL suggests IMPAIRED HOMEOSTASIS per A.D.A. criteria. Hematocrit Auto (Bld) [Volum e fraction]Ordered By: Mohini Willson on 08-05-2024 Hematocrit (Bld) [Volume fraction] 27.4 % Low 37-47 [facility] Hemoglobin measurementOrdere d By: Mohini Willson on 08-05-2024 Hemoglobin (Bld) [Mass/Vol] 9.0 g/dL Low 12.0-15.0 [facility] Immature granulocytes/100 WB C Auto (Bld)Ordered By: Mohini Willson on 08-05-2024 Immature granulocytes/100 WBC (Bld) 0.600 % 0.0-0.9 [facility] Comment on above: IG% - Immature Granu locytes (promyelocytes, myelocytes and metamyelocytes) > 1% indicates that a LEFT SHIFT is Present. Lymphocytes Auto (Unsp spec) [#/Vol]Ordered By: Mohini Willson on 08-05-2024 Lymphocytes (Bld) [#/Vol] 1.10 10*3/uL 0.83-4.51 [facility] Lymphocytes/100 WBC Auto (Un sp spec)Ordered By: Mohini Willson on 08-05-2024 Lymphocytes/100 WBC (Bld) 17.0 % Low 19-41 [facility] MCV (mean corpuscular volume ) determinationOrdered By: Mohini Willson on 08-05-2024 MCV (RBC) [Entitic vol] 91.0 fL 81-99 [facility] Mean corpuscular hemoglobin (MCH) determinationOrdered By: Mohini Willson on 08-05-2024 MCH (RBC) [Entitic mass] 29.9 pg 27.0-32.0 [facility] Mean corpuscular hemoglobin concentration (MCHC) determinationOrdered By: Mohini Willson on 08-05-2024 MCHC (RBC) [Mass/Vol] 32.8 g/dL 32-36 [facility] Mean platelet volume determi nationOrdered By: Mohini Willson on 08-05-2024 Platelet mean volume (Bld) [Entitic vol] 8.7 fL 6.2-12.0 [facility] Monocyte percentageOrdered B y: Mohini Willson on 08-05-2024 Monocytes/100 WBC (Bld) 11.0 % High 0-10 [facility] Neutrophil percentageOrdered By: Mohini Willson on 08-05-2024 Neutrophils/100 WBC (Bld) 70.1 % High 47-70 [facility] Nucleated red blood cell per centageOrdered By: Mohini Willson on 08-05-2024 Nucleated RBC/100 WBC (Bld) [Ratio] 0 % 0-5 [facility] Platelet countOrdered By: Judy Willson on 08-05-2024 Platelets (Bld) [#/Vol] 433 10*3/uL 150-450 [facility] Potassium measurementOrdered By: Mohini Willson on 08-05-2024 Potassium [Moles/Vol] 3.1 mmol/L Low 3.5-5.1 [facility] RBC Auto (Bld) [#/Vol]Ordere d By: Mohini Willson on 08-05-2024 RBC (Bld) [#/Vol] 3.01 10*6/uL Low 4.2-5.4 [facility] Serum anion gap measurementO rdered By: Mohini Willson on 08-05-2024 Anion gap [Moles/Vol] 7 mmol/L 5-15 [facility] Serum or plasma calcium bennie urement (mass/volume)Ordered By: Mohini Willson on 08-05-2024 Calcium [Mass/Vol] 8.0 mg/dL Low 8.5-10.1 [facility] Serum or plasma creatinine m easurement (mass/volume)Ordered By: Mohini Willson on 08-05-2024 Creatinine [Mass/Vol] 0.43 mg/dL Low 0.55-1.02 [facility] Comment on above: The validity of the calculated GFR & GFRAA in patients over 70 years has not been determined. Clinical correlation is essential. Serum or plasma urea nitroge n measurement (mass/volume)Ordered By: Mohini Willson on 08-05-2024 Urea nitrogen [Mass/Vol] 7 mg/dL 7-18 [facility] Sodium levelOrdered By: Mohini Willson on 08-05-2024 Sodium [Moles/Vol] 140 mmol/L 136-145 [facility] White blood cell (WBC) count Ordered By: Mohini Willson on 08-05-2024 WBC (Bld) [#/Vol] 6.5 10*3/uL 4.4-11.0 [facility] Basic Metabolic Profile (BMP )on 08-04-2024 BUN/CRE 13.5 RATIO Normal 10-20 [facility] Comment on above: Performed By: #### L 500.2500 ####[facility] [address] [place], [address] CA,Total 7.6 mg/dL Low 8.5-10.1 [facility] Comment on above: Performed By: #### L 500.2500 ####[facility] [address] [place], [address] Chloride [Moles/Vol] 108 mmol/L High 98-107 [facility] Comment on above: Performed By: #### L 500.2500 ####[facility] [address] [place], [address] CO2 [Moles/Vol] 24.0 mmol/L Normal 21.0-32.0 [facility] Comment on above: Performed By: #### L 500.2500 ####[facility] [address] [place], [address] Creatinine [Mass/Vol] 0.44 mg/dL Low 0.55-1.02 [facility] Comment on above: Result Comment: The validity of the calculated GFR GFRAA in patients over70 years has not been determined. Clinical correlation isessential. Performed By: #### L 500.2500 ####[facility] [address] [place], [address] ECRCL 57.73 ml/min Normal [facility] Comment on above: Performed By: #### L 500.2500 ####[facility] [address] [place], [address] EST GFR - AA 179 mL/min Normal >60 [facility] Comment on above: Result Comment: Afri can Maltese GFR Calc Performed By: #### L 500.2500 ####[facility] [address] [place] [id number] GAP 8 Normal 5-15 [facility] Comment on above: Performed By: #### L 500.2500 ####[facility] [address] [place], [address] GFR/1.73 sq M.predicted among non-blacks MDRD (S/P/Bld) [Vol rate/Area] 148 mL/min/{1.73_m2} Normal >60 [facility] Comment on above: Result Comment: Non- GFR Calc Performed By: #### L 500.2500 ####[facility] [address] [place], [address] Glucose [Mass/Vol] 109 mg/dL High 74-106 [facility] Comment on above: Result Comment: Fast ing Glucose result from 100 to 125 mg/dLsuggests IMPAIRED HOMEOSTASIS per A.D.A. criteria. Performed By: #### L 500.2500 ####[facility] [address] [place], [address] Potassium [Moles/Vol] 3.2 mmol/L Low 3.5-5.1 [facility] Comment on above: Performed By: #### L 500.2500 ####[facility] [address] [place], [address] Sodium [Moles/Vol] 140 mmol/L Normal 136-145 [facility] Comment on above: Performed By: #### L 500.2500 ####[facility] [address] [place], [address] Urea nitrogen [Mass/Vol] 6 mg/dL Low 7-18 [facility] Comment on above: Performed By: #### L 500.2500 ####[facility] [address] [place], [address] CBC W/Diff, Automatedon 12-0 -2023 Absolute Lymph 1.18 X10 3/uL Normal 0.83-4.51 [facility] Comment on above: Performed By: #### L 100.0100 ####[facility] [address] [place], [address] Absolute Neut 3.6 X10 3/uL Normal 2.0-7.7 [facility] Comment on above: Performed By: #### L 100.0100 ####[facility] [address] [place], [address] Basophils/100 WBC (Bld) 0.5 % Normal 0-1 [facility] Comment on above: Performed By: #### L 100.0100 ####[facility] [address] [place], [address] Eosinophils/100 WBC (Bld) 0.0 % Normal 0-5 [facility] Comment on above: Performed By: #### L 100.0100 ####[facility] [address] [place], [address] Erythrocyte distribution width (RBC) [Ratio] 15.4 % High 11.6-14.6 [facility] Comment on above: Performed By: #### L 100.0100 ####[facility] [address] [place], [address] Hematocrit (Bld) [Volume fraction] 27.2 % Low 37-47 [facility] Comment on above: Performed By: #### L 100.0100 ####[facility] [address] [place], [address] Hemoglobin (Bld) [Mass/Vol] 8.9 g/dL Low 12.0-15.0 [facility] Comment on above: Performed By: #### L 100.0100 ####[facility] [address] [place], [address] IG% 0.700 Normal 0.0-0.9 [facility] Comment on above: Result Comment: IG% - Immature Granulocytes (promyelocytes, myelocytes andmetamyelocytes) > 1% indicates that a LEFT SHIFT is Present. Performed By: #### L 100.0100 ####[facility] [address] [place], [address] Lymphocytes/100 WBC (Bld) 20.9 % Normal 19-41 [facility] Comment on above: Performed By: #### L 100.0100 ####[facility] [address] [place], [address] MCH (RBC) [Entitic mass] 30.0 pg Normal 27.0-32.0 [facility] Comment on above: Performed By: #### L 100.0100 ####[facility] [address] [place], [address] MCHC (RBC) [Mass/Vol] 32.7 g/dL Normal 32-36 [facility] Comment on above: Performed By: #### L 100.0100 ####[facility] [address] [place], [address] MCV (RBC) [Entitic vol] 91.6 fL Normal 81-[address] [facility] Comment on above: Performed By: #### L 100.0100 ####[facility] [address] [place], [address] Monocytes/100 WBC (Bld) 13.3 % High 0-10 [facility] Comment on above: Performed By: #### L 100.0100 ####[facility] [address] [place], [address] Neutrophils/100 WBC (Bld) 64.6 % Normal 47-70 [facility] Comment on above: Performed By: #### L 100.0100 ####[facility] [address] [place], [address] Nucleated RBC (Bld) [#/Vol] 0 10*3/uL Normal 0-5 [facility] Comment on above: Performed By: #### L 100.0100 ####[facility] [address] [place], [address] Platelet mean volume (Bld) [Entitic vol] 8.6 fL Normal 6.2-12.0 [facility] Comment on above: Performed By: #### L 100.0100 ####[facility] [address] [place], [address] Platelets (Bld) [#/Vol] 430 10*3/uL Normal 150-450 [facility] Comment on above: Performed By: #### L 100.0100 ####[facility] [address] [place], [address] RBC (Bld) [#/Vol] 2.97 10*6/uL Low 4.2-5.4 [facility] Comment on above: Performed By: #### L 100.0100 ####[facility] [address] [place], [address] RDW SD 51.4 fl High 35.1-43.9 [facility] Comment on above: Performed By: #### L 100.0100 ####[facility] [address] [place], [address] WBC (Bld) [#/Vol] 5.6 10*3/uL Normal 4.4-11.0 [facility] Comment on above: Performed By: #### L 100.0100 ####[facility] [address] [place], [address] Culture, Blood (WB)on 2023 CUB No growth in 5 days. Normal [facility] Comment on above: Performed By: #### M 200.1000 ####[facility] [address] [place], [address] Basic Metabolic Profile (BMP )on 08-03-2024 BUN/CRE 13.1 RATIO Normal 10-20 [facility] Comment on above: Performed By: #### L 500.2500 ####[facility] [address] [place], [address] CA,Total 7.8 mg/dL Low 8.5-10.1 [facility] Comment on above: Performed By: #### L 500.2500 ####[facility] [address] [place], [address] Chloride [Moles/Vol] 110 mmol/L High 98-107 [facility] Comment on above: Performed By: #### L 500.2500 ####[facility] [address] [place], [address] CO2 [Moles/Vol] 24.0 mmol/L Normal 21.0-32.0 [facility] Comment on above: Performed By: #### L 500.2500 ####[facility] [address] [place], [address] Creatinine [Mass/Vol] 0.46 mg/dL Low 0.55-1.02 [facility] Comment on above: Result Comment: The validity of the calculated GFR GFRAA in patients over70 years has not been determined. Clinical correlation isessential. Performed By: #### L 500.2500 ####[facility] [address] [place], [address] ECRCL 57.73 ml/min Normal [facility] Comment on above: Performed By: #### L 500.2500 ####[facility] [address] [place], [address] EST GFR - AA 173 mL/min Normal >60 [facility] Comment on above: Result Comment: Afri can Maltese GFR Calc Performed By: #### L 500.2500 ####[facility] [address] [place], [address] GAP 7 Normal 5-15 [facility] Comment on above: Performed By: #### L 500.2500 ####[facility] [address] [place], [address] GFR/1.73 sq M.predicted among non-blacks MDRD (S/P/Bld) [Vol rate/Area] 143 mL/min/{1.73_m2} Normal >60 [facility] Comment on above: Result Comment: Non- GFR Calc Performed By: #### L 500.2500 ####[facility] [address] [place], [address] Glucose [Mass/Vol] 110 mg/dL High 74-106 [facility] Comment on above: Result Comment: Fast ing Glucose result from 100 to 125 mg/dLsuggests IMPAIRED HOMEOSTASIS per A.D.A. criteria. Performed By: #### L 500.2500 ####[facility] [address] [place], [address] Potassium [Moles/Vol] 3.1 mmol/L Low 3.5-5.1 [facility] Comment on above: Performed By: #### L 500.2500 ####[facility] [address] [place], [address] Sodium [Moles/Vol] 141 mmol/L Normal 136-145 [facility] Comment on above: Performed By: #### L 500.2500 ####[facility] [address] [place], [address] Urea nitrogen [Mass/Vol] 6 mg/dL Low 7-18 [facility] Comment on above: Performed By: #### L 500.2500 ####[facility] [address] [place], [address] Bedside Glucoseon 08-03-2024 FINGERSTICK GLU 99 mg/dL Normal 74-106 [facility] Comment on above: Result Comment: DANIEL DUKES OF PATIENT CARE PER NURSING PROTOCOL Performed By: #### L 501.080 ####[facility] [address] [place], [address] CBC W/Diff, Automatedon 07-07 Absolute Lymph 1.12 X10 3/uL Normal 0.83-4.51 [facility] Comment on above: Performed By: #### L 100.0100 ####[facility] [address] [place], [address] Absolute Neut 3.8 X10 3/uL Normal 2.0-7.7 [facility] Comment on above: Performed By: #### L 100.0100 ####[facility] [address] [place], [address] Basophils/100 WBC (Bld) 0.7 % Normal 0-1 [facility] Comment on above: Performed By: #### L 100.0100 ####[facility] [address] [place], [address] Eosinophils/100 WBC (Bld) 2.4 % Normal 0-5 [facility] Comment on above: Performed By: #### L 100.0100 ####[facility] [address] [place], [address] Erythrocyte distribution width (RBC) [Ratio] 15.2 % High 11.6-14.6 [facility] Comment on above: Performed By: #### L 100.0100 ####[facility] [address] [place], [address] Hematocrit (Bld) [Volume fraction] 26.4 % Low 37-47 [facility] Comment on above: Performed By: #### L 100.0100 ####[facility] [address] [place], [address] Hemoglobin (Bld) [Mass/Vol] 8.8 g/dL Low 12.0-15.0 [facility] Comment on above: Performed By: #### L 100.0100 ####[facility] [address] [place], [address] IG% 0.500 Normal 0.0-0.9 [facility] Comment on above: Result Comment: IG% - Immature Granulocytes (promyelocytes, myelocytes andmetamyelocytes) > 1% indicates that a LEFT SHIFT is Present. Performed By: #### L 100.0100 ####[facility] [address] [place], [address] Lymphocytes/100 WBC (Bld) 19.5 % Normal 19-41 [facility] Comment on above: Performed By: #### L 100.0100 ####[facility] [address] [place], [address] MCH (RBC) [Entitic mass] 29.7 pg Normal 27.0-32.0 [facility] Comment on above: Performed By: #### L 100.0100 ####[facility] [address] [place], [address] MCHC (RBC) [Mass/Vol] 33.3 g/dL Normal 32-36 [facility] Comment on above: Performed By: #### L 100.0100 ####[facility] [address] [place], [address] MCV (RBC) [Entitic vol] 89.2 fL Normal 81-[address] [facility] Comment on above: Performed By: #### L 100.0100 ####[facility] [address] [place], [address] Monocytes/100 WBC (Bld) 11.1 % High 0-[address] [facility] Comment on above: Performed By: #### L 100.0100 ####[facility] [address] [place], [address] Neutrophils/100 WBC (Bld) 65.8 % Normal 47-70 [facility] Comment on above: Performed By: #### L 100.0100 ####[facility] [address] [place], [address] Nucleated RBC (Bld) [#/Vol] 0 10*3/uL Normal 0-5 [facility] Comment on above: Performed By: #### L 100.0100 ####[facility] [address] [place], [address] Platelet mean volume (Bld) [Entitic vol] 8.5 fL Normal 6.2-12.0 [facility] Comment on above: Performed By: #### L 100.0100 ####[facility] [address] [place], [address] Platelets (Bld) [#/Vol] 432 10*3/uL Normal 150-450 [facility] Comment on above: Performed By: #### L 100.0100 ####[facility] [address] [place], [address] RBC (Bld) [#/Vol] 2.96 10*6/uL Low 4.2-5.4 [facility] Comment on above: Performed By: #### L 100.0100 ####[facility] [address] [place], [address] RDW SD 49.0 fl High 35.1-43.9 [facility] Comment on above: Performed By: #### L 100.0100 ####[facility] [address] [place], [address] WBC (Bld) [#/Vol] 5.7 10*3/uL Normal 4.4-11.0 [facility] Comment on above: Performed By: #### L 100.0100 ####[facility] [address] [place], [address] Activated partial thrombopla stin time (aPTT) in platelet poor plasma by coagulation aOrdered By: Bienvenido Garcia on 08-02-2024 aPTT Coag (Bld) [Time] 33.1 s Normal 24.1-36.2 [facility] Comment on above: Performed By: #### L 300.4310, L300.3900 ####[facility] [address] [place], [address] Basic Metabolic Profile (BMP )on 08-02-2024 BUN/CRE 12.5 RATIO Normal 10-20 [facility] Comment on above: Performed By: #### L 500.2500 ####[facility] [address] [place], [address] CA,Total 7.6 mg/dL Low 8.5-10.1 [facility] Comment on above: Performed By: #### L 500.2500 ####[facility] [address] [place], [address] Chloride [Moles/Vol] 111 mmol/L High 98-107 [facility] Comment on above: Performed By: #### L 500.2500 ####[facility] [address] [place], [address] CO2 [Moles/Vol] 25.0 mmol/L Normal 21.0-32.0 [facility] Comment on above: Performed By: #### L 500.2500 ####[facility] [address] [place], [address] Creatinine [Mass/Vol] 0.64 mg/dL Normal 0.55-1.02 [facility] Comment on above: Result Comment: The validity of the calculated GFR GFRAA in patients over70 years has not been determined. Clinical correlation isessential. Performed By: #### L 500.2500 ####[facility] [address] [place], [address] ECRCL 57.73 ml/min Normal [facility] Comment on above: Performed By: #### L 500.2500 ####[facility] [address] [place], [address] EST GFR - AA 118 mL/min Normal >60 [facility] Comment on above: Result Comment: Afri can Maltese GFR Calc Performed By: #### L 500.2500 ####[facility] [address] [place], [address] GAP 6 Normal 5-15 [facility] Comment on above: Performed By: #### L 500.2500 ####[facility] [address] [place], [address] GFR/1.73 sq M.predicted among non-blacks MDRD (S/P/Bld) [Vol rate/Area] 97 mL/min/{1.73_m2} Normal >60 [facility] Comment on above: Result Comment: Non- GFR Calc Performed By: #### L 500.2500 ####[facility] [address] [place], [address] Glucose [Mass/Vol] 118 mg/dL High 74-106 [facility] Comment on above: Result Comment: Fast ing Glucose result from 100 to 125 mg/dLsuggests IMPAIRED HOMEOSTASIS per A.D.A. criteria. Performed By: #### L 500.2500 ####[facility] [address] [place], [address] Potassium [Moles/Vol] 2.9 mmol/L Low 3.5-5.1 [facility] Comment on above: Performed By: #### L 500.2500 ####[facility] [address] [place], [address] Sodium [Moles/Vol] 142 mmol/L Normal 136-145 [facility] Comment on above: Performed By: #### L 500.2500 ####[facility] [address] [place], [address] Urea nitrogen [Mass/Vol] 8 mg/dL Normal 7-18 [facility] Comment on above: Performed By: #### L 500.2500 ####[facility] [address] [place], [address] CBC W/Diff, Automatedon - Absolute Lymph 1.16 X10 3/uL Normal 0.83-4.51 [facility] Comment on above: Performed By: #### L 100.0100 ####[facility] [address] [place], [address] Absolute Neut 4.4 X10 3/uL Normal 2.0-7.7 [facility] Comment on above: Performed By: #### L 100.0100 ####[facility] [address] [place], [address] Basophils/100 WBC (Bld) 0.5 % Normal 0-1 [facility] Comment on above: Performed By: #### L 100.0100 ####[facility] [address] [place], [address] Eosinophils/100 WBC (Bld) 0.9 % Normal 0-5 [facility] Comment on above: Performed By: #### L 100.0100 ####[facility] [address] [place], [address] Erythrocyte distribution width (RBC) [Ratio] 15.3 % High 11.6-14.6 [facility] Comment on above: Performed By: #### L 100.0100 ####[facility] [address] [place], [address] Hematocrit (Bld) [Volume fraction] 26.0 % Low 37-47 [facility] Comment on above: Performed By: #### L 100.0100 ####[facility] [address] [place], [address] Hemoglobin (Bld) [Mass/Vol] 8.6 g/dL Low 12.0-15.0 [facility] Comment on above: Performed By: #### L 100.0100 ####[facility] [address] [place], [address] IG% 0.600 Normal 0.0-0.9 [facility] Comment on above: Result Comment: IG% - Immature Granulocytes (promyelocytes, myelocytes andmetamyelocytes) > 1% indicates that a LEFT SHIFT is Present. Performed By: #### L 100.0100 ####[facility] [address] [place], [address] Lymphocytes/100 WBC (Bld) 17.9 % Low 19-41 [facility] Comment on above: Performed By: #### L 100.0100 ####[facility] [address] [place], [address] MCH (RBC) [Entitic mass] 29.8 pg Normal 27.0-32.0 [facility] Comment on above: Performed By: #### L 100.0100 ####[facility] [address] [place], [address] MCHC (RBC) [Mass/Vol] 33.1 g/dL Normal 32-36 [facility] Comment on above: Performed By: #### L 100.0100 ####[facility] [address] [place], [address] MCV (RBC) [Entitic vol] 90.0 fL Normal 81-[address] [facility] Comment on above: Performed By: #### L 100.0100 ####[facility] [address] [place], [address] Monocytes/100 WBC (Bld) 11.9 % High 0-[address] [facility] Comment on above: Performed By: #### L 100.0100 ####[facility] [address] [place], [address] Neutrophils/100 WBC (Bld) 68.2 % Normal 47-70 [facility] Comment on above: Performed By: #### L 100.0100 ####[facility] [address] [place], [address] Nucleated RBC (Bld) [#/Vol] 0 10*3/uL Normal 0-5 [facility] Comment on above: Performed By: #### L 100.0100 ####[facility] [address] [place], [address] Platelet mean volume (Bld) [Entitic vol] 8.5 fL Normal 6.2-12.0 [facility] Comment on above: Performed By: #### L 100.0100 ####[facility] [address] [place], [address] Platelets (Bld) [#/Vol] 430 10*3/uL Normal 150-450 [facility] Comment on above: Performed By: #### L 100.0100 ####[facility] [address] [place], [address] RBC (Bld) [#/Vol] 2.89 10*6/uL Low 4.2-5.4 [facility] Comment on above: Performed By: #### L 100.0100 ####[facility] [address] [place], [address] RDW SD 49.8 fl High 35.1-43.9 [facility] Comment on above: Performed By: #### L 100.0100 ####[facility] [address] [place], [address] WBC (Bld) [#/Vol] 6.5 10*3/uL Normal 4.4-11.0 [facility] Comment on above: Performed By: #### L 100.0100 ####[facility] [address] [place], [address] EGD Reporton 08-02-2024 EGD Report Normal [facility] deOrdered By: Mohini Willson on 08-02-2024 Bedside Glucose (Misc Panel) 99 mg/dL 74-106 [facility] Comment on above: MANAGEMENT OF PATIEN T CARE PER NURSING PROTOCOL H Pylori (initial)on 024 H Pylori (initial) Normal [facility] Comment on above: Performed By: #### P H.PYLORI ####[facility] [address] [place], [address] International normalized rat io (INR) calculationOrdered By: Bienvenido Garcia on 08-02-2024 INR Coag (Bld) [Relative time] 1.3 {INR} [facility] MR/POSTOP.ANEon 08-02-2024 MR/POSTOP.ANE Normal [facility] Magnesium measurementOrdered By: Mohini Willson on 08-02-2024 Magnesium [Mass/Vol] 2.1 mg/dL Normal 1.6-2.6 [facility] Comment on above: Performed By: #### L 501.5200 ####[facility] [address] [place], [place], [id number] Prothrombin Time w/INRon INR Coag (PPP) [Relative time] 1.3 {INR} Normal [facility] Comment on above: Performed By: #### L 300.4310, L300.3900 ####[facility] [address] [place], [address] Prothrombin timeOrdered By: Bienvenido Garcia on 08-02-2024 PT Coag (PPP) [Time] 16.0 s High 11.7-14.9 [facility] Comment on above: Performed By: #### L 300.4310, L300.3900 ####[facility] [address] [place], [address] Surgery Specimen Level Lenny 08-02-2024 Surgery Specimen Level IV Normal [facility] Comment on above: Performed By: #### P SUIV ####[facility] [address] [place], [address] Basic Metabolic Profile (BMP )on 08-01-2024 BUN/CRE 17.9 RATIO Normal 10-20 [facility] Comment on above: Performed By: #### L 500.2500 ####[facility] [address] [place], [place], [address] CA,Total 7.6 mg/dL Low 8.5-10.1 [facility] Comment on above: Performed By: #### L 500.2500 ####[facility] [address] [place], [address] Chloride [Moles/Vol] 114 mmol/L High 98-107 [facility] Comment on above: Performed By: #### L 500.2500 ####[facility] [address] [place], [address] CO2 [Moles/Vol] 22.0 mmol/L Normal 21.0-32.0 [facility] Comment on above: Performed By: #### L 500.2500 ####[facility] [address] [place], [address] Creatinine [Mass/Vol] 0.50 mg/dL Low 0.55-1.02 [facility] Comment on above: Result Comment: The validity of the calculated GFR GFRAA in patients over70 years has not been determined. Clinical correlation isessential. Performed By: #### L 500.2500 ####[facility] [address] [place], [address] ECRCL 57.73 ml/min Normal [facility] Comment on above: Performed By: #### L 500.2500 ####[facility] [address] [place], [address] EST GFR - AA 156 mL/min Normal >60 [facility] Comment on above: Result Comment: Afri can Maltese GFR Calc Performed By: #### L 500.2500 ####[facility] [address] [place], [address] GAP 6 Normal 5-15 [facility] Comment on above: Performed By: #### L 500.2500 ####[facility] [address] [place], [address] GFR/1.73 sq M.predicted among non-blacks MDRD (S/P/Bld) [Vol rate/Area] 129 mL/min/{1.73_m2} Normal >60 [facility] Comment on above: Result Comment: Non- GFR Calc Performed By: #### L 500.2500 ####[facility] [address] [place], [address] Glucose [Mass/Vol] 102 mg/dL Normal 74-106 [facility] Comment on above: Result Comment: Fast ing Glucose result from 100 to 125 mg/dLsuggests IMPAIRED HOMEOSTASIS per A.D.A. criteria. Performed By: #### L 500.2500 ####[facility] [address] [place], [address] Potassium [Moles/Vol] 3.3 mmol/L Low 3.5-5.1 [facility] Comment on above: Performed By: #### L 500.2500 ####[facility] [address] [place], [address] Sodium [Moles/Vol] 142 mmol/L Normal 136-145 [facility] Comment on above: Performed By: #### L 500.2500 ####[facility] [address] [place], [address] Urea nitrogen [Mass/Vol] 9 mg/dL Normal 7-18 [facility] Comment on above: Performed By: #### L 500.2500 ####[facility] [address] [place], [address] CBC W/Diff, Automatedon 07-06 Absolute Lymph 0.96 X10 3/uL Normal 0.83-4.51 [facility] Comment on above: Performed By: #### L 100.0100 ####[facility] [address] [place], [address] Absolute Neut 5.4 X10 3/uL Normal 2.0-7.7 [facility] Comment on above: Performed By: #### L 100.0100 ####[facility] [address] [place], [address] Basophils/100 WBC (Bld) 0.4 % Normal 0-1 [facility] Comment on above: Performed By: #### L 100.0100 ####[facility] [address] [place], [address] Eosinophils/100 WBC (Bld) 0.3 % Normal 0-5 [facility] Comment on above: Performed By: #### L 100.0100 ####[facility] [address] [place], [address] Erythrocyte distribution width (RBC) [Ratio] 15.4 % High 11.6-14.6 [facility] Comment on above: Performed By: #### L 100.0100 ####[facility] [address] [place], [address] Hematocrit (Bld) [Volume fraction] 26.5 % Low 37-47 [facility] Comment on above: Performed By: #### L 100.0100 ####[facility] [address] [place], [address] Hemoglobin (Bld) [Mass/Vol] 8.8 g/dL Low 12.0-15.0 [facility] Comment on above: Performed By: #### L 100.0100 ####[facility] [address] [place], [address] IG% 1.000 High 0.0-0.9 [facility] Comment on above: Result Comment: IG% - Immature Granulocytes (promyelocytes, myelocytes andmetamyelocytes) > 1% indicates that a LEFT SHIFT is Present. Performed By: #### L 100.0100 ####[facility] [address] [place], [address] Lymphocytes/100 WBC (Bld) 13.3 % Low 19-41 [facility] Comment on above: Performed By: #### L 100.0100 ####[facility] [address] [place], [address] MCH (RBC) [Entitic mass] 29.9 pg Normal 27.0-32.0 [facility] Comment on above: Performed By: #### L 100.0100 ####[facility] [address] [place], [address] MCHC (RBC) [Mass/Vol] 33.2 g/dL Normal 32-36 [facility] Comment on above: Performed By: #### L 100.0100 ####[facility] [address] [place], [address] MCV (RBC) [Entitic vol] 90.1 fL Normal 81-[address] [facility] Comment on above: Performed By: #### L 100.0100 ####[facility] [address] [place], [address] Monocytes/100 WBC (Bld) 9.8 % Normal 0-[address] [facility] Comment on above: Performed By: #### L 100.0100 ####[facility] [address] [place], [address] Neutrophils/100 WBC (Bld) 75.2 % High 47-70 [facility] Comment on above: Performed By: #### L 100.0100 ####[facility] [address] [place], [address] Nucleated RBC (Bld) [#/Vol] 0.3 10*3/uL Normal 0-5 [facility] Comment on above: Performed By: #### L 100.0100 ####[facility] [address] [place], [address] Platelet mean volume (Bld) [Entitic vol] 8.7 fL Normal 6.2-12.0 [facility] Comment on above: Performed By: #### L 100.0100 ####[facility] [address] [place], [address] Platelets (Bld) [#/Vol] 408 10*3/uL Normal 150-450 [facility] Comment on above: Performed By: #### L 100.0100 ####[facility] [address] [place], [address] RBC (Bld) [#/Vol] 2.94 10*6/uL Low 4.2-5.4 [facility] Comment on above: Performed By: #### L 100.0100 ####[facility] [address] [place], [address] RDW SD 49.7 fl High 35.1-43.9 [facility] Comment on above: Performed By: #### L 100.0100 ####[facility] [address] [place], [address] WBC (Bld) [#/Vol] 7.2 10*3/uL Normal 4.4-11.0 [facility] Comment on above: Performed By: #### L 100.0100 ####[facility] [address] [place], [address] MR/CON.PCM.GIon 08-01-2024 MR/CON.PCM.GI Normal [facility] BRCon 07-31-2024 RC Normal [facility] Comment on above: Result Comment: [id number] AN RC TRANSFUSED 07/31/24 [id number] AN RC TRANSFUSED 07/31/24 1608 Performed By: #### B , [facility] ####[facility] [address] [place], [address] Basic Metabolic Profile (BMP )on 07-31-2024 BUN/CRE 26.6 RATIO High 10-20 [facility] Comment on above: Performed By: #### L 500.2500 ####[facility] [address] [place], [address] CA,Total 7.2 mg/dL Low 8.5-10.1 [facility] Comment on above: Performed By: #### L 500.2500 ####[facility] [address] [place], [address] Chloride [Moles/Vol] 113 mmol/L High 98-107 [facility] Comment on above: Performed By: #### L 500.2500 ####[facility] [address] [place], [address] CO2 [Moles/Vol] 22.0 mmol/L Normal 21.0-32.0 [facility] Comment on above: Performed By: #### L 500.2500 ####[facility] [address] [place], [address] Creatinine [Mass/Vol] 0.56 mg/dL Normal 0.55-1.02 [facility] Comment on above: Result Comment: The validity of the calculated GFR GFRAA in patients over70 years has not been determined. Clinical correlation isessential. Performed By: #### L 500.2500 ####[facility] [address] [place], [address] ECRCL 57.73 ml/min Normal [facility] Comment on above: Performed By: #### L 500.2500 ####[facility] [address] [place], [address] EST GFR - AA 136 mL/min Normal >60 [facility] Comment on above: Result Comment: Afri can Maltese GFR Calc Performed By: #### L 500.2500 ####[facility] [address] [place], [address] GAP 5 Normal 5-15 [facility] Comment on above: Performed By: #### L 500.2500 ####[facility] [address] [place], [address] GFR/1.73 sq M.predicted among non-blacks MDRD (S/P/Bld) [Vol rate/Area] 112 mL/min/{1.73_m2} Normal >60 [facility] Comment on above: Result Comment: Non- GFR Calc Performed By: #### L 500.2500 ####[facility] [address] [place], [address] Glucose [Mass/Vol] 104 mg/dL Normal 74-106 [facility] Comment on above: Result Comment: Fast ing Glucose result from 100 to 125 mg/dLsuggests IMPAIRED HOMEOSTASIS per A.D.A. criteria. Performed By: #### L 500.2500 ####[facility] [address] [place], [address] Potassium [Moles/Vol] 3.6 mmol/L Normal 3.5-5.1 [facility] Comment on above: Performed By: #### L 500.2500 ####[facility] [address] [place], [address] Sodium [Moles/Vol] 139 mmol/L Normal 136-145 [facility] Comment on above: Performed By: #### L 500.2500 ####[facility] [address] [place], [address] Urea nitrogen [Mass/Vol] 15 mg/dL Normal 7-18 [facility] Comment on above: Performed By: #### L 500.2500 ####[facility] [address] [place], [address] C. difficile DNA ARIANE+probe Q l (Unsp spec)Ordered By: Mohini Willson on 07-31-2024 Clostridioides difficile (PCR) [facility] CBC-Complete Blood Cnt No Di ffon 07-31-2024 Erythrocyte distribution width (RBC) [Ratio] 14.9 % High 11.6-14.6 [facility] Comment on above: Performed By: #### L 100.0500 ####[facility] [address] [place], [address] Hematocrit (Bld) [Volume fraction] 20.0 % Low 37-47 [facility] Comment on above: Performed By: #### L 100.0500 ####[facility] [address] [place], [address] Hemoglobin (Bld) [Mass/Vol] 6.4 g/dL Low 12.0-15.0 [facility] Comment on above: Performed By: #### L 100.0500 ####[facility] [address] [place], [address] MCH (RBC) [Entitic mass] 30.5 pg Normal 27.0-32.0 [facility] Comment on above: Performed By: #### L 100.0500 ####[facility] [address] [place], [address] MCHC (RBC) [Mass/Vol] 32.0 g/dL Normal 32-36 [facility] Comment on above: Performed By: #### L 100.0500 ####[facility] [address] [place], [address] MCV (RBC) [Entitic vol] 95.2 fL Normal 81-99 [facility] Comment on above: Performed By: #### L 100.0500 ####[facility] [address] [place], [address] Platelet mean volume (Bld) [Entitic vol] 8.8 fL Normal 6.2-12.0 [facility] Comment on above: Performed By: #### L 100.0500 ####[facility] [address] [place], [address] Platelets (Bld) [#/Vol] 367 10*3/uL Normal 150-450 [facility] Comment on above: Performed By: #### L 100.0500 ####[facility] [address] [place], [address] RBC (Bld) [#/Vol] 2.10 10*6/uL Low 4.2-5.4 [facility] Comment on above: Performed By: #### L 100.0500 ####[facility] [address] [place], [address] RDW SD 52.5 fl High 35.1-43.9 [facility] Comment on above: Performed By: #### L 100.0500 ####[facility] [address] [place], [address] WBC (Bld) [#/Vol] 8.8 10*3/uL Normal 4.4-11.0 [facility] Comment on above: Performed By: #### L 100.0500 ####[facility] [address] [place], [address] CDIFF (PCR)on 07-31-2024 CDIFF Is the patient receiving laxatives? Y New/unexplained onset of 3 or more stools in past 24 hrs? Y senna x1 yesterday Pending 027 027 NAP1-B1 Presumptive Negative *for epidemiolologic???use C. Diff PCR Negative- No toxigenic C. Diff Detected Normal [facility] Comment on above: Performed By: #### M 100.637, M100.6796 ####[facility] [address] [place], [address] ENTERIC PATHOGEN PANEL STOOL on 07-31-2024 EP PANEL Normal [facility] Comment on above: Performed By: #### M 100.637, M100.6796 ####[facility] [address] [place], [address] Ferritinon 07-31-2024 Ferritin [Mass/Vol] 115 ng/mL Normal 8-252 [facility] Comment on above: Performed By: #### L 503.6030, L503.6550 ####[facility] [address] [place], [address] Ferritin measurementOrdered By: Mohini Willson on 07-31-2024 Ferritin [Mass/Vol] 115 ng/mL 8-252 [facility] HIP, UNI W/ Pelvis 2-3 Views on 07-31-2024 HIP, UNI W/ Pelvis 2-3 Views Normal [facility] Iron (Unsp spec) [Mass/Mass] Ordered By: Mohini Willson on 07-31-2024 Iron [Mass/Vol] 9 ug/dL Low 50-170 [facility] Iron saturation [Mass fracti on]Ordered By: Mohini Willson on 07-31-2024 Iron Saturation 3.0 % Low 15.0-55.0 [facility] Iron+Iron Binding Capacityon 07-31-2024 Iron [Mass/Vol] 9 ug/dL Low 50-170 [facility] Comment on above: Performed By: #### L 503.6030, L503.6550 ####[facility] [address] [place], [address] IRON SATURATION 3.0 Low 15.0-55.0 [facility] Comment on above: Performed By: #### L 503.6030, L503.6550 ####[facility] [address] [place], [address] TIBC 305 ug/dL Normal 250-450 [facility] Comment on above: Performed By: #### L 503.6030, L503.6550 ####[facility] [address] [place], [address] Lower GI hemoglobin IA Ql (S tl)Ordered By: Mohini Willson on 07-31-2024 Stool Occult Blood (SINCERE) [facility] Stool Occult Blood iFOBon STOB Negative Normal [facility] Comment on above: Performed By: #### M 100.7900 ####[facility] [address] [place], [place], [id number] Stool enteric pathogen panel by probe and target amplification methodOrdered By: Mohini Willson on 07-31-2024 Enteric Bacteriology [facility] TIBCOrdered By: Mohini denney n 07-31-2024 Total Iron Binding Capacity 305 ug/dL 250-450 [facility] Type AND Screenon 07-31-2024 Ab SCREEN GEL Negative Normal [facility] Comment on above: Order Comment: CMV N EG? NNumber of units to transfuse: 2Reason for Ordering Blood: AcuteAre the blood/blood products to be transfused? YIs the patient having/had surgery? YPT NOT IN ROOM, FLOOR WILL CALL WHEN BACKWhen ReadyNY Performed By: #### B TS, BRC ####[facility] [address] [place], [place], [id number] 12 Lead EKGon 07-30-2024 12 Lead EKG Normal [facility] Arterial patency Wrist arter y --pre arterial punctureOrdered By: Mohini Willson on 07-30-2024 Bobby Test Positive [facility] Base excess Calc (BldV) [Mol es/Vol]Ordered By: Mohini Willson on 07-30-2024 Blood Gas Base Excess -3 mmol/L Low -2-2 [facility] Basic Metabolic Profile (BMP )on 07-30-2024 BUN/CRE 17.3 RATIO Normal 10-20 [facility] Comment on above: Performed By: #### L 500.2500 ####[facility] [address] [place], [place], [id number] CA,Total 7.6 mg/dL Low 8.5-10.1 [facility] Comment on above: Performed By: #### L 500.2500 ####[facility] [address] [place], [place], [address] Chloride [Moles/Vol] 109 mmol/L High 98-107 [facility] Comment on above: Performed By: #### L 500.2500 ####[facility] [address] [place], [address] CO2 [Moles/Vol] 20.0 mmol/L Low 21.0-32.0 [facility] Comment on above: Performed By: #### L 500.2500 ####[facility] [address] [place], [address] Creatinine [Mass/Vol] 1.27 mg/dL High 0.55-1.02 [facility] Comment on above: Result Comment: The validity of the calculated GFR GFRAA in patients over70 years has not been determined. Clinical correlation isessential. Performed By: #### L 500.2500 ####[facility] [address] [place], [address] ECRCL 36.36 ml/min Normal [facility] Comment on above: Performed By: #### L 500.2500 ####[facility] [address] [place], [address] EST GFR - AA 53 mL/min Low >60 [facility] Comment on above: Result Comment: Afri can Maltese GFR Calc Performed By: #### L 500.2500 ####[facility] [address] [place], [address] GAP 7 Normal 5-15 [facility] Comment on above: Performed By: #### L 500.2500 ####[facility] [address] [place], [address] GFR/1.73 sq M.predicted among non-blacks MDRD (S/P/Bld) [Vol rate/Area] 44 mL/min/{1.73_m2} Low >60 [facility] Comment on above: Result Comment: Non- GFR Calc Performed By: #### L 500.2500 ####[facility] [address] [place], [address] Glucose [Mass/Vol] 107 mg/dL High 74-106 [facility] Comment on above: Result Comment: Fast ing Glucose result from 100 to 125 mg/dLsuggests IMPAIRED HOMEOSTASIS per A.D.A. criteria. Performed By: #### L 500.2500 ####[facility] [address] [place], [address] Potassium [Moles/Vol] 4.1 mmol/L Normal 3.5-5.1 [facility] Comment on above: Performed By: #### L 500.2500 ####[facility] [address] [place], [address] Sodium [Moles/Vol] 135 mmol/L Low 136-145 [facility] Comment on above: Performed By: #### L 500.2500 ####[facility] [address] [place], [address] Urea nitrogen [Mass/Vol] 22 mg/dL High 7-18 [facility] Comment on above: Performed By: #### L 500.2500 ####[facility] [address] [place], [address] Bedside Glucoseon 07-30-2024 FINGERSTICK GLU 128 mg/dL High 74-106 [facility] Comment on above: Result Comment: DANIEL DUKES OF PATIENT CARE PER NURSING PROTOCOL Performed By: #### L 501.080 ####[facility] [address] [place], [address] Bilirubin Test strip Ql (U)O rdered By: Mohini Willson on 07-30-2024 Bilirubin Ql (U) Negative Negative [facility] Blood [facility] BOBBY TEST Positive Normal [facility] Comment on above: Performed By: #### L 9000.0800 ####[facility] [address] [place], [address] Base excess Calc (Bld) [Moles/Vol] -3 mmol/L Low -2 to +2 [facility] Comment on above: Performed By: #### L 9000.0800 ####[facility] [address] [place], [address] Blood Gas Type ART Normal [facility] Comment on above: Performed By: #### L 9000.0800 ####[facility] [address] [place], [address] CO2 [Moles/Vol] 21 mmol/L Normal [facility] Comment on above: Performed By: #### L 0.0800 ####[facility] [address] [place], [address] HCO3 (Bld) [Moles/Vol] 20.1 mmol/L Low 22-26 [facility] Comment on above: Performed By: #### L 0.0800 ####[facility] [address] [place], [address] Mode Not entered Normal [facility] Comment on above: Performed By: #### L 0.0800 ####[facility] [address] [place], [address] O2 Delivery Dev Room Air Normal [facility] Comment on above: Performed By: #### L 0.0800 ####[facility] [address] [place], [address] pCO2 25.0 mmHg Low 35-45 [facility] Comment on above: Performed By: #### L 9000.0800 ####[facility] [address] [place], [address] pH (Bld) 7.51 [pH] High 7.35-7.45 [facility] Comment on above: Performed By: #### L 0.0800 ####[facility] [address] [place], [address] PO2 96 mmHG Normal 75-100 [facility] Comment on above: Performed By: #### L 0.0800 ####[facility] [address] [place], [address] SITE L Radial Normal [facility] Comment on above: Performed By: #### L 9000.0800 ####[facility] [address] [place], [address] SO2 98 Normal 95-99 [facility] Comment on above: Performed By: #### L 9000.0800 ####[facility] [address] [place], [address] Blood bicarbonate measuremen tOrdered By: Mohini Willson on 07-30-2024 Blood Gas Bicarbonate Actual 20.1 mmol/L Low - [facility] Blood cultureOrdered By: Marina Willson on 07-30-2024 Bacteria identified Cx Nom (Bld) No growth in 5 days. [facility] Brain/Head without Contrasto n 07-30-2024 Brain/Head without Contrast Normal [facility] CBC-Complete Blood Cnt No Di ffon 07-30-2024 Erythrocyte distribution width (RBC) [Ratio] 15.1 % High 11.6-14.6 [facility] Comment on above: Performed By: #### L 100.0500 ####[facility] [address] [place], [address] Hematocrit (Bld) [Volume fraction] 24.2 % Low 37-47 [facility] Comment on above: Performed By: #### L 100.0500 ####[facility] [address] [place], [address] Hemoglobin (Bld) [Mass/Vol] 7.4 g/dL Low 12.0-15.0 [facility] Comment on above: Performed By: #### L 100.0500 ####[facility] [address] [place], [address] MCH (RBC) [Entitic mass] 30.1 pg Normal 27.0-32.0 [facility] Comment on above: Performed By: #### L 100.0500 ####[facility] [address] [place], [address] MCHC (RBC) [Mass/Vol] 30.6 g/dL Low 32-36 [facility] Comment on above: Performed By: #### L 100.0500 ####[facility] [address] [place], [address] MCV (RBC) [Entitic vol] 98.4 fL Normal 81-99 [facility] Comment on above: Performed By: #### L 100.0500 ####[facility] [address] [place], [address] Platelet mean volume (Bld) [Entitic vol] 9.0 fL Normal 6.2-12.0 [facility] Comment on above: Performed By: #### L 100.0500 ####[facility] [address] [place], [address] Platelets (Bld) [#/Vol] 353 10*3/uL Normal 150-450 [facility] Comment on above: Performed By: #### L 100.0500 ####[facility] [address] [place], [address] RBC (Bld) [#/Vol] 2.46 10*6/uL Low 4.2-5.4 [facility] Comment on above: Performed By: #### L 100.0500 ####[facility] [address] [place], [address] RDW SD 54.1 fl High 35.1-43.9 [facility] Comment on above: Performed By: #### L 100.0500 ####[facility] [address] [place], [address] WBC (Bld) [#/Vol] 16.8 10*3/uL High 4.4-11.0 [facility] Comment on above: Performed By: #### L 100.0500 ####[facility] [address] [place], [address] Chest 1 View (Portable)on Chest 1 View (Portable) Normal [facility] Epithelial cells.squamous LM Ql (Urine sed)Ordered By: Mohini Willson on 07-30-2024 Epithelial cells.squamous LM.HPF (Urine sed) [#/Area] 0 /[HPF] 5-10 [facility] Glucose Ql (U)Ordered By: Judy Willson on 07-30-2024 Urine Glucose (UA) Normal mg/dl Normal [facility] Ketones Test strip Ql (U)Ord ered By: Mohini Willson on 07-30-2024 Ketones Ql (U) Negative Negative [facility] Methadone, urineOrdered By: Mohini Willson on 07-30-2024 Urine Methadone Screen Negative < 300 ng/mL [facility] Microscopic analysis of urin e for red blood cells (RBC)Ordered By: Mohini Willson on 07-30-2024 Urine RBC 0 SEEN /hpf 0-5 [facility] Mucus LM Ql (Urine sed)Order ed By: Mohini Willson on 07-30-2024 Mucus Ql (Urine sed) 0 SEEN /hpf [facility] Nitrite Test strip Ql (U)Ord ered By: Mohini Willson on 07-30-2024 Nitrite Ql (U) Negative Negative [facility] No Panel InformationOrdered By: Mohini Willson on 07-30-2024 Urine Drug Screen Comment [facility] Comment on above: CONFIRMATORY TESTING FOR ALL POSITIVE URINE DRUG SCREENRESULTS WILL ONLY BE SENT OUT UPON PHYSICIAN ORDER. VISTA Urine Drug Screen methods provide only preliminaryanalytical test results. A more specific alternate chemicalmethod must be used in order to obtain a confirmedanalytical result. Gas chromatography/mass spectrometery(GC/MS) is the preferred confirmatory method. Clinicalconsideration and professional judgement should be appliedto any drug of abuse test result, particularly whenpreliminary positive results are used. URINE TCA TESTING MUST BE ORDERED SEPARATELY. USE TESTMNEMONIC: [facility] Blood Gas Sample Site L Radial [facility] Blood Gas Specimen Type ART [facility] Blood Gas Vent Mode Not entered [facility] Oxygen Delivery Device Room Air [facility] Oxygen saturation measuremen tOrdered By: Mohini Willson on 07-30-2024 Blood Gas Oxygen Saturation 98 % 95-99 [facility] Partial pressure of carbon d ioxide measurementOrdered By: Mohini Willson on 07-30-2024 Arterial Blood Partial Pressure CO2 25.0 mmHg Low 35-45 [facility] Partial pressure of oxygen m easurementOrdered By: Mohini Willson on 07-30-2024 Arterial Blood Partial Pressure O2 96 mmHG 75-100 [facility] Protein Test strip Ql (U)Ord ered By: Mohini Willson on 07-30-2024 Protein Ql (U) 15 mg/dl High Negative [facility] Quantitative urine opiates m easurementOrdered By: Mohini Willson on 07-30-2024 Opiates Ql (U) Positive High < 300 ng/mL [facility] Total carbon dioxide measure mentOrdered By: Mohini Willson on 07-30-2024 Blood Gas Total CO2 21 mmol/L [facility] Urinalysis, Completeon 07-30 WBC 0-5 SEEN Normal 0-5 [facility] Comment on above: Order Comment: LAURA TER SPECIMEN Performed By: #### L 400.0001 ####[facility] [address] [facility] [id number] BACTERIA 0 SEEN Normal None Seen [facility] Comment on above: Order Comment: LAURA TER SPECIMEN Performed By: #### L 400.0001 ####[facility] [address] [facility] [id number] EPI,SQUAMOUS 0 SEEN Normal 5-10 [facility] Comment on above: Order Comment: LAURA TER SPECIMEN Performed By: #### L 400.0001 ####[facility] [address] [facility] [address] Mucus Ql (Urine sed) 0 SEEN Normal [facility] Comment on above: Order Comment: LAURA TER SPECIMEN Performed By: #### L 400.0001 ####[facility] [address] [place] [id number] RBC 0 SEEN Normal 0-5 [facility] Comment on above: Order Comment: LAURA TER SPECIMEN Performed By: #### L 400.0001 ####[facility] [address] [place], [address] Urine Drug Screen (VISTA)on 07-30-2024 AMPHETAMINES Negative Normal <1000 ng/mL [facility] Comment on above: Performed By: #### L 505.5000 ####[facility] [address] [facility] [address] BARBITIURATES Negative Normal < 200 ng/mL [facility] Comment on above: Performed By: #### L 505.5000 ####[facility] [address] [facility] [address] BENZODIAZIPINE Positive Abnormal < 200 ng/mL [facility] Comment on above: Performed By: #### L 505.5000 ####[facility] [address] [facility] [address] COCAINE Negative Normal < 300 ng/mL [facility] Comment on above: Performed By: #### L 505.5000 ####[facility] [address] [place], [address] ECSTACY Negative Normal < 500 ng/mL [facility] Comment on above: Performed By: #### L 505.5000 ####[facility] [address] [facility] [address] METHADONE Negative Normal < 300 ng/mL [facility] Comment on above: Performed By: #### L 505.5000 ####[facility] [address] [place], [address] OPIATES Positive Abnormal < 300 ng/mL [facility] Comment on above: Performed By: #### L 505.5000 ####[facility] [address] [facility] [id number] PCP Negative Normal < 25 ng/mL [facility] Comment on above: Performed By: #### L 505.5000 ####[facility] [address] [place], [place], [id number] THC Positive Abnormal < 50 ng/mL [facility] Comment on above: Performed By: #### L 505.5000 ####[facility] [address] [place], [address] VISTA UDS PH 6 Normal [facility] Comment on above: Performed By: #### L 505.5000 ####[facility] [address] [place], [address] Urine amphetamine measuremen tOrdered By: Mohini Willson on 07-30-2024 Amphetamines Ql (U) Negative <1000 ng/mL [facility] Urine barbiturates measureme ntOrdered By: Mohini Willson on 07-30-2024 Urine Barbiturates Screen Negative < 200 ng/mL [facility] Urine benzodiazepine levelOr dered By: Mohini Willson on 07-30-2024 Benzodiazepines Ql (U) Positive High < 200 ng/mL [facility] Urine blood detectionOrdered By: Mohini Willson on 07-30-2024 Urine Occult Blood Negative Negative [facility] Urine clarityOrdered By: Marina Willson on 07-30-2024 Clarity (U) Clear Clear [facility] Urine cocaine levelOrdered B y: Mohini Willson on 07-30-2024 Cocaine Ql (U) Negative < 300 ng/mL [facility] Urine color determinationOrd ered By: Mohini Willson on 07-30-2024 Color (U) Yellow Yellow [facility] Urine bitqc-8-tpxjrtwcbdpvec abinol (THC) measurementOrdered By: Mohini Willson on 07-30-2024 Cannabinoids Screen Ql (U) Positive High < 50 ng/mL [facility] Urine leukocyte esterase det ection by dipstickOrdered By: Mohini Willson on 07-30-2024 Leukocyte esterase Test strip Ql (U) Negative Negative [facility] Urine methylenedioxymethamph etamine (MDMA) measurementOrdered By: Mohinidomenic Willson on 07-30-2024 MDMA (Ecstasy) Screen Negative < 500 ng/mL [facility] Urine pHOrdered By: Mohinidomenic Candel[place] am on 07-30-2024 pH (U) 6.5 [pH] 5.0 - 8.0 [facility] Urine phencyclidine (PCP) de tectionOrdered By: Mohini Willson on 07-30-2024 Phencyclidine Ql (U) Negative < 25 ng/mL [facility] Urine sediment bacteria coun t by microscopy (number/high power field)Ordered By: Mohinidomenic Willson on 07-30-2024 Bacteria LM.HPF (Urine sed) [#/Area] 0 /[HPF] None Seen [facility] Urine specific gravity measu rementOrdered By: Mohini Demetris on 07-30-2024 Specific gravity (U) [Rel density] 1.010 1.002-1.03 0 [facility] Urobilinogen Ql (U)Ordered B y: Mohini Candelarialima on 07-30-2024 Urine Urobilinogen Normal mg/dl Normal [facility] White blood cell countOrdere d By: Mohini Willson on 07-30-2024 Urine WBC 0-5 SEEN /hpf 0-5 [facility] pH (Unsp spec)Ordered By: Judy Willson on 07-30-2024 Blood Gas pH 7.51 High 7.35-7.45 [facility] Basic Metabolic Profile (BMP )on 07-29-2024 BUN/CRE 13.8 RATIO Normal 10-20 [facility] Comment on above: Performed By: #### L 100.0100, L500.2500 ####[facility] [address] [place], [address] CA,Total 7.2 mg/dL Low 8.5-10.1 [facility] Comment on above: Performed By: #### L 100.0100, L500.2500 ####[facility] [address] [place], [address] Chloride [Moles/Vol] 109 mmol/L High 98-107 [facility] Comment on above: Performed By: #### L 100.0100, L500.2500 ####[facility] [address] [place], [address] CO2 [Moles/Vol] 22.0 mmol/L Normal 21.0-32.0 [facility] Comment on above: Performed By: #### L 100.0100, L500.2500 ####[facility] [address] [place], [address] Creatinine [Mass/Vol] 0.94 mg/dL Normal 0.55-1.02 [facility] Comment on above: Result Comment: The validity of the calculated GFR GFRAA in patients over70 years has not been determined. Clinical correlation isessential. Performed By: #### L 100.0100, L500.2500 ####[facility] [address] [place], [address] ECRCL 49.13 ml/min Normal [facility] Comment on above: Performed By: #### L 100.0100, L500.2500 ####[facility] [address] [place], [address] EST GFR - AA 75 mL/min Normal >60 [facility] Comment on above: Result Comment: Afri can Maltese GFR Calc Performed By: #### L 100.0100, L500.2500 ####[facility] [address] [place], [address] GAP 6 Normal 5-15 [facility] Comment on above: Performed By: #### L 100.0100, L500.2500 ####[facility] [address] [place], [address] GFR/1.73 sq M.predicted among non-blacks MDRD (S/P/Bld) [Vol rate/Area] 62 mL/min/{1.73_m2} Normal >60 [facility] Comment on above: Result Comment: Non- GFR Calc Performed By: #### L 100.0100, L500.2500 ####[facility] [address] [place], [address] Glucose [Mass/Vol] 118 mg/dL High 74-106 [facility] Comment on above: Result Comment: Fast ing Glucose result from 100 to 125 mg/dLsuggests IMPAIRED HOMEOSTASIS per A.D.A. criteria. Performed By: #### L 100.0100, L500.2500 ####[facility] [address] [place], [address] Potassium [Moles/Vol] 4.1 mmol/L Normal 3.5-5.1 [facility] Comment on above: Performed By: #### L 100.0100, L500.2500 ####[facility] [address] [place], [address] Sodium [Moles/Vol] 137 mmol/L Normal 136-145 [facility] Comment on above: Performed By: #### L 100.0100, L500.2500 ####[facility] [address] [place], [address] Urea nitrogen [Mass/Vol] 13 mg/dL Normal 7-18 [facility] Comment on above: Performed By: #### L 100.0100, L500.2500 ####[facility] [address] [place], [address] CBC W/Diff, Automatedon 07-06 MACROCYTOSIS 1+ Normal [facility] Comment on above: Performed By: #### L 100.0100, L500.2500 ####[facility] [address] [place], [address] OVALOCYTE 1+ Normal [facility] Comment on above: Performed By: #### L 100.0100, L500.2500 ####[facility] [address] [place], [address] TARGET CELLS RARE Normal [facility] Comment on above: Performed By: #### L 100.0100, L500.2500 ####[facility] [address] [place], [place], [id number] Anisocytosis Ql (Bld) 2+ Normal [facility] Comment on above: Performed By: #### L 100.0100, L500.2500 ####[facility] [address] [place], [place], [id number] PLT EST SLT INC [facility] Comment on above: Performed By: #### L 100.0100, L500.2500 ####[facility] [address] [place], [place], [id number] SMEAR COMMENT SCANNED Normal [facility] Comment on above: Performed By: #### L 100.0100, L500.2500 ####[facility] [address] [place], [place], [id number] Laboratory - Hematology and Cell countsOrdered By: Lance Gresham on 07-29-2024 Anisocytosis Ql (Bld) 2+ [facility] Macrocytes Ql (Bld)Ordered B y: Lance Gresham on 07-29-2024 Macrocytosis 1+ [facility] Manual differential comment Armando (Bld) [Interp]Ordered By: Lance Gresham on 07-29-2024 Differential Comment SCANNED [facility] Ovalocytes LM Ql (Bld)Ordere d By: Lance Gresham on 07-29-2024 Ovalocytes 1+ [facility] Platelets LM Ql (Bld)Ordered By: Lance Gresham on 07-29-2024 Platelet Estimate SLT INC ADEQ [facility] Target cells LM Ql (Bld)Orde red By: Lance Gresham on 07-29-2024 Target Cells RARE [facility] Basic Metabolic Profile (BMP )on 07-28-2024 BUN/CRE 12.4 RATIO Normal 10-20 [facility] Comment on above: Performed By: #### L 500.2500, L100.0100 ####[facility] [address] [place], [address] CA,Total 8.1 mg/dL Low 8.5-10.1 [facility] Comment on above: Performed By: #### L 500.2500, L100.0100 ####[facility] [address] [place], [address] Chloride [Moles/Vol] 108 mmol/L High 98-107 [facility] Comment on above: Performed By: #### L 500.2500, L100.0100 ####[facility] [address] [place], [address] CO2 [Moles/Vol] 27.0 mmol/L Normal 21.0-32.0 [facility] Comment on above: Performed By: #### L 500.2500, L100.0100 ####[facility] [address] [place], [address] Creatinine [Mass/Vol] 0.65 mg/dL Normal 0.55-1.02 [facility] Comment on above: Result Comment: The validity of the calculated GFR GFRAA in patients over70 years has not been determined. Clinical correlation isessential. Performed By: #### L 500.2500, L100.0100 ####[facility] [address] [place], [address] ECRCL 57.73 ml/min Normal [facility] Comment on above: Performed By: #### L 500.2500, L100.0100 ####[facility] [address] [place], [address] EST GFR - AA 116 mL/min Normal >60 [facility] Comment on above: Result Comment: Afri can Maltese GFR Calc Performed By: #### L 500.2500, L100.0100 ####[facility] [address] [place], [address] GAP 6 Normal 5-15 [facility] Comment on above: Performed By: #### L 500.2500, L100.0100 ####[facility] [address] [place], [address] GFR/1.73 sq M.predicted among non-blacks MDRD (S/P/Bld) [Vol rate/Area] 96 mL/min/{1.73_m2} Normal >60 [facility] Comment on above: Result Comment: Non- GFR Calc Performed By: #### L 500.2500, L100.0100 ####[facility] [address] [place], [address] Glucose [Mass/Vol] 113 mg/dL High 74-106 [facility] Comment on above: Result Comment: Fast ing Glucose result from 100 to 125 mg/dLsuggests IMPAIRED HOMEOSTASIS per A.D.A. criteria. Performed By: #### L 500.2500, L100.0100 ####[facility] [address] [place], [address] Potassium [Moles/Vol] 3.5 mmol/L Normal 3.5-5.1 [facility] Comment on above: Performed By: #### L 500.2500, L100.0100 ####[facility] [address] [place], [address] Sodium [Moles/Vol] 140 mmol/L Normal 136-145 [facility] Comment on above: Performed By: #### L 500.2500, L100.0100 ####[facility] [address] [place], [address] Urea nitrogen [Mass/Vol] 8 mg/dL Normal 7-18 [facility] Comment on above: Performed By: #### L 500.2500, L100.0100 ####[facility] [address] [place], [address] CBC W/Diff, Automatedon 11-2 Absolute Lymph 1.45 X10 3/uL Normal 0.83-4.51 [facility] Comment on above: Performed By: #### L 500.2500, L100.0100 ####[facility] [address] [place], [address] Absolute Neut 5.1 X10 3/uL Normal 2.0-7.7 [facility] Comment on above: Performed By: #### L 500.2500, L100.0100 ####[facility] [address] [place], [address] Basophils/100 WBC (Bld) 0.4 % Normal 0-1 [facility] Comment on above: Performed By: #### L 500.2500, L100.0100 ####[facility] [address] [place], [address] Eosinophils/100 WBC (Bld) 0.4 % Normal 0-5 [facility] Comment on above: Performed By: #### L 500.2500, L100.0100 ####[facility] [address] [place], [address] Erythrocyte distribution width (RBC) [Ratio] 14.7 % High 11.6-14.6 [facility] Comment on above: Performed By: #### L 500.2500, L100.0100 ####[facility] [address] [place], [address] Hematocrit (Bld) [Volume fraction] 26.5 % Low 37-47 [facility] Comment on above: Performed By: #### L 500.2500, L100.0100 ####[facility] [address] [place], [address] Hemoglobin (Bld) [Mass/Vol] 8.6 g/dL Low 12.0-15.0 [facility] Comment on above: Performed By: #### L 500.2500, L100.0100 ####[facility] [address] [place], [address] IG% 0.300 Normal 0.0-0.9 [facility] Comment on above: Result Comment: IG% - Immature Granulocytes (promyelocytes, myelocytes andmetamyelocytes) > 1% indicates that a LEFT SHIFT is Present. Performed By: #### L 500.2500, L100.0100 ####[facility] [address] [place], [address] Lymphocytes/100 WBC (Bld) 19.7 % Normal 19-41 [facility] Comment on above: Performed By: #### L 500.2500, L100.0100 ####[facility] [address] [place], [address] MCH (RBC) [Entitic mass] 30.4 pg Normal 27.0-32.0 [facility] Comment on above: Performed By: #### L 500.2500, L100.0100 ####[facility] [address] [place], [address] MCHC (RBC) [Mass/Vol] 32.5 g/dL Normal 32-36 [facility] Comment on above: Performed By: #### L 500.2500, L100.0100 ####[facility] [address] [place], [address] MCV (RBC) [Entitic vol] 93.6 fL Normal 81-[address] [facility] Comment on above: Performed By: #### L 500.2500, L100.0100 ####[facility] [address] [place], [address] Monocytes/100 WBC (Bld) 9.8 % Normal 0-[address] [facility] Comment on above: Performed By: #### L 500.2500, L100.0100 ####[facility] [address] [place], [address] Neutrophils/100 WBC (Bld) 69.4 % Normal 47-70 [facility] Comment on above: Performed By: #### L 500.2500, L100.0100 ####[facility] [address] [place], [address] Nucleated RBC (Bld) [#/Vol] 0 10*3/uL Normal 0-5 [facility] Comment on above: Performed By: #### L 500.2500, L100.0100 ####[facility] [address] [place], [address] Platelet mean volume (Bld) [Entitic vol] 8.6 fL Normal 6.2-12.0 [facility] Comment on above: Performed By: #### L 500.2500, L100.0100 ####[facility] [address] [place], [address] Platelets (Bld) [#/Vol] 382 10*3/uL Normal 150-450 [facility] Comment on above: Performed By: #### L 500.2500, L100.0100 ####[facility] [address] [place], [address] RBC (Bld) [#/Vol] 2.83 10*6/uL Low 4.2-5.4 [facility] Comment on above: Performed By: #### L 500.2500, L100.0100 ####[facility] [address] [place], [address] RDW SD 49.9 fl High 35.1-43.9 [facility] Comment on above: Performed By: #### L 500.2500, L100.0100 ####[facility] [address] [place], [address] WBC (Bld) [#/Vol] 7.4 10*3/uL Normal 4.4-11.0 [facility] Comment on above: Performed By: #### L 500.2500, L100.0100 ####[facility] [address] [place], [address] Hip Min 2 Views (Portable)on 07-28-2024 Hip Min 2 Views (Portable) Normal [facility] MR/POSTOP.ANEon 07-28-2024 MR/POSTOP.ANE Normal [facility] MR/YHILSMXY0ey 07-28-2024 MR/POSTOPAN2 Normal [facility] Operative Reporton Operative Report Normal [facility] Type AND Screenon 07-28-2024 ABO and Rh group Nom (Bld) Blood group A Rh(D) positive Normal [facility] Comment on above: Order Comment: S Performed By: #### B TS ####[facility] [address] [place], [address] Basic Metabolic Profile (BMP )on 07-27-2024 BUN/CRE 18.0 RATIO Normal 10-20 [facility] Comment on above: Performed By: #### L 100.0100, L500.2500 ####[facility] [address] [place], [address] CA,Total 8.0 mg/dL Low 8.5-10.1 [facility] Comment on above: Performed By: #### L 100.0100, L500.2500 ####[facility] [address] [place], [address] Chloride [Moles/Vol] 107 mmol/L Normal 98-107 [facility] Comment on above: Performed By: #### L 100.0100, L500.2500 ####[facility] [address] [place], [address] CO2 [Moles/Vol] 25.0 mmol/L Normal 21.0-32.0 [facility] Comment on above: Performed By: #### L 100.0100, L500.2500 ####[facility] [address] [place], [address] Creatinine [Mass/Vol] 0.56 mg/dL Normal 0.55-1.02 [facility] Comment on above: Result Comment: The validity of the calculated GFR GFRAA in patients over70 years has not been determined. Clinical correlation isessential. Performed By: #### L 100.0100, L500.2500 ####[facility] [address] [place], [address] ECRCL 57.73 ml/min Normal [facility] Comment on above: Performed By: #### L 100.0100, L500.2500 ####[facility] [address] [place], [address] EST GFR - AA 139 mL/min Normal >60 [facility] Comment on above: Result Comment: Afri can Maltese GFR Calc Performed By: #### L 100.0100, L500.2500 ####[facility] [address] [place], [address] GAP 6 Normal 5-15 [facility] Comment on above: Performed By: #### L 100.0100, L500.2500 ####[facility] [address] [place], [address] GFR/1.73 sq M.predicted among non-blacks MDRD (S/P/Bld) [Vol rate/Area] 115 mL/min/{1.73_m2} Normal >60 [facility] Comment on above: Result Comment: Non- GFR Calc Performed By: #### L 100.0100, L500.2500 ####[facility] [address] [place], [address] Glucose [Mass/Vol] 110 mg/dL High 74-106 [facility] Comment on above: Result Comment: Fast ing Glucose result from 100 to 125 mg/dLsuggests IMPAIRED HOMEOSTASIS per A.D.A. criteria. Performed By: #### L 100.0100, L500.2500 ####[facility] [address] [place], [address] Potassium [Moles/Vol] 3.6 mmol/L Normal 3.5-5.1 [facility] Comment on above: Performed By: #### L 100.0100, L500.2500 ####[facility] [address] [place], [address] Sodium [Moles/Vol] 138 mmol/L Normal 136-145 [facility] Comment on above: Performed By: #### L 100.0100, L500.2500 ####[facility] [address] [place], [address] Urea nitrogen [Mass/Vol] 10 mg/dL Normal 7-18 [facility] Comment on above: Performed By: #### L 100.0100, L500.2500 ####[facility] [address] [place], [address] CBC W/Diff, Automatedon 11-2 3-2023 Absolute Lymph 1.22 X10 3/uL Normal 0.83-4.51 [facility] Comment on above: Performed By: #### L 100.0100, L500.2500 ####[facility] [address] [place], [address] Absolute Neut 5.8 X10 3/uL Normal 2.0-7.7 [facility] Comment on above: Performed By: #### L 100.0100, L500.2500 ####[facility] [address] [place], [address] Basophils/100 WBC (Bld) 0.6 % Normal 0-1 [facility] Comment on above: Performed By: #### L 100.0100, L500.2500 ####[facility] [address] [place], [address] Eosinophils/100 WBC (Bld) 0.5 % Normal 0-5 [facility] Comment on above: Performed By: #### L 100.0100, L500.2500 ####[facility] [address] [place], [address] Erythrocyte distribution width (RBC) [Ratio] 14.7 % High 11.6-14.6 [facility] Comment on above: Performed By: #### L 100.0100, L500.2500 ####[facility] [address] [place], [address] Hematocrit (Bld) [Volume fraction] 26.8 % Low 37-47 [facility] Comment on above: Performed By: #### L 100.0100, L500.2500 ####[facility] [address] [place], [address] Hemoglobin (Bld) [Mass/Vol] 8.7 g/dL Low 12.0-15.0 [facility] Comment on above: Performed By: #### L 100.0100, L500.2500 ####[facility] [address] [place], [address] IG% 0.500 Normal 0.0-0.9 [facility] Comment on above: Result Comment: IG% - Immature Granulocytes (promyelocytes, myelocytes andmetamyelocytes) > 1% indicates that a LEFT SHIFT is Present. Performed By: #### L 100.0100, L500.2500 ####[facility] [address] [place], [address] Lymphocytes/100 WBC (Bld) 15.6 % Low 19-41 [facility] Comment on above: Performed By: #### L 100.0100, L500.2500 ####[facility] [address] [place], [address] MCH (RBC) [Entitic mass] 30.5 pg Normal 27.0-32.0 [facility] Comment on above: Performed By: #### L 100.0100, L500.2500 ####[facility] [address] [place], [address] MCHC (RBC) [Mass/Vol] 32.5 g/dL Normal 32-36 [facility] Comment on above: Performed By: #### L 100.0100, L500.2500 ####[facility] [address] [place], [address] MCV (RBC) [Entitic vol] 94.0 fL Normal 81-[address] [facility] Comment on above: Performed By: #### L 100.0100, L500.2500 ####[facility] [address] [place], [address] Monocytes/100 WBC (Bld) 8.1 % Normal 0-[address] [facility] Comment on above: Performed By: #### L 100.0100, L500.2500 ####[facility] [address] [place], [address] Neutrophils/100 WBC (Bld) 74.7 % High 47-70 [facility] Comment on above: Performed By: #### L 100.0100, L500.2500 ####[facility] [address] [place], [address] Nucleated RBC (Bld) [#/Vol] 0 10*3/uL Normal 0-5 [facility] Comment on above: Performed By: #### L 100.0100, L500.2500 ####[facility] [address] [place], [address] Platelet mean volume (Bld) [Entitic vol] 8.7 fL Normal 6.2-12.0 [facility] Comment on above: Performed By: #### L 100.0100, L500.2500 ####[facility] [address] [place], [address] Platelets (Bld) [#/Vol] 400 10*3/uL Normal 150-450 [facility] Comment on above: Performed By: #### L 100.0100, L500.2500 ####[facility] [address] [place], [address] RBC (Bld) [#/Vol] 2.85 10*6/uL Low 4.2-5.4 [facility] Comment on above: Performed By: #### L 100.0100, L500.2500 ####[facility] [address] [place], [address] RDW SD 50.9 fl High 35.1-43.9 [facility] Comment on above: Performed By: #### L 100.0100, L500.2500 ####[facility] [address] [place], [address] WBC (Bld) [#/Vol] 7.8 10*3/uL Normal 4.4-11.0 [facility] Comment on above: Performed By: #### L 100.0100, L500.2500 ####[facility] [address] [place], [address] 12 Lead EKGon 07-26-2024 12 Lead EKG Normal [facility] Basic Metabolic Profile (BMP )on 07-26-2024 BUN/CRE 17.0 RATIO Normal 10-20 [facility] Comment on above: Performed By: #### L 500.2500, L100.0100 ####[facility] [address] [place], [address] CA,Total 8.5 mg/dL Normal 8.5-10.1 [facility] Comment on above: Performed By: #### L 500.2500, L100.0100 ####[facility] [address] [place], [address] Chloride [Moles/Vol] 106 mmol/L Normal 98-107 [facility] Comment on above: Performed By: #### L 500.2500, L100.0100 ####[facility] [address] [place], [address] CO2 [Moles/Vol] 28.0 mmol/L Normal 21.0-32.0 [facility] Comment on above: Performed By: #### L 500.2500, L100.0100 ####[facility] [address] [place], [address] Creatinine [Mass/Vol] 0.71 mg/dL Normal 0.55-1.02 [facility] Comment on above: Result Comment: The validity of the calculated GFR GFRAA in patients over70 years has not been determined. Clinical correlation isessential. Performed By: #### L 500.2500, L100.0100 ####[facility] [address] [place], [address] ECRCL 58.79 ml/min Normal [facility] Comment on above: Performed By: #### L 500.2500, L100.0100 ####[facility] [address] [place], [address] EST GFR - AA 105 mL/min Normal >60 [facility] Comment on above: Result Comment: Afri can Maltese GFR Calc Performed By: #### L 500.2500, L100.0100 ####[facility] [address] [place], [address] GAP 7 Normal 5-15 [facility] Comment on above: Performed By: #### L 500.2500, L100.0100 ####[facility] [address] [place], [address] GFR/1.73 sq M.predicted among non-blacks MDRD (S/P/Bld) [Vol rate/Area] 87 mL/min/{1.73_m2} Normal >60 [facility] Comment on above: Result Comment: Non- GFR Calc Performed By: #### L 500.2500, L100.0100 ####[facility] [address] [place], [address] Glucose [Mass/Vol] 135 mg/dL High 74-106 [facility] Comment on above: Result Comment: Fast ing Glucose result greater than or equal to 126 mg/dLsuggests DIABETES MELLITUS per A.D.A. criteria. Performed By: #### L 500.2500, L100.0100 ####[facility] [address] [place], [address] Potassium [Moles/Vol] 2.5 mmol/L Invalid Interpretation Code 3.5-5.1 [facility] Comment on above: Result Comment: Crit ical Result(s) Called at: 08:38:40 07/26/2024 by:Linda Weiner to Mary Ann. Results read back bysame. Performed By: #### L 500.2500, L100.0100 ####[facility] [address] [place], [address] Sodium [Moles/Vol] 142 mmol/L Normal 136-145 [facility] Comment on above: Performed By: #### L 500.2500, L100.0100 ####[facility] [address] [place], [address] Urea nitrogen [Mass/Vol] 12 mg/dL Normal 7-18 [facility] Comment on above: Performed By: #### L 500.2500, L100.0100 ####[facility] [address] [place], [address] CBC W/Diff, Automatedon - Absolute Lymph 1.63 X10 3/uL Normal 0.83-4.51 [facility] Comment on above: Performed By: #### L 500.2500, L100.0100 ####[facility] [address] [place], [address] Absolute Neut 5.6 X10 3/uL Normal 2.0-7.7 [facility] Comment on above: Performed By: #### L 500.2500, L100.0100 ####[facility] [address] [place], [address] Basophils/100 WBC (Bld) 0.5 % Normal 0-1 [facility] Comment on above: Performed By: #### L 500.2500, L100.0100 ####[facility] [address] [place], [address] Eosinophils/100 WBC (Bld) 0.8 % Normal 0-5 [facility] Comment on above: Performed By: #### L 500.2500, L100.0100 ####[facility] [address] [place], [address] Erythrocyte distribution width (RBC) [Ratio] 14.6 % Normal 11.6-14.6 [facility] Comment on above: Performed By: #### L 500.2500, L100.0100 ####[facility] [address] [place], [address] Hematocrit (Bld) [Volume fraction] 28.8 % Low 37-47 [facility] Comment on above: Performed By: #### L 500.2500, L100.0100 ####[facility] [address] [place], [address] Hemoglobin (Bld) [Mass/Vol] 9.5 g/dL Low 12.0-15.0 [facility] Comment on above: Performed By: #### L 500.2500, L100.0100 ####[facility] [address] [place], [address] IG% 0.500 Normal 0.0-0.9 [facility] Comment on above: Result Comment: IG% - Immature Granulocytes (promyelocytes, myelocytes andmetamyelocytes) > 1% indicates that a LEFT SHIFT is Present. Performed By: #### L 500.2500, L100.0100 ####[facility] [address] [place], [address] Lymphocytes/100 WBC (Bld) 20.4 % Normal 19-41 [facility] Comment on above: Performed By: #### L 500.2500, L100.0100 ####[facility] [address] [place], [address] MCH (RBC) [Entitic mass] 30.6 pg Normal 27.0-32.0 [facility] Comment on above: Performed By: #### L 500.2500, L100.0100 ####[facility] [address] [place], [address] MCHC (RBC) [Mass/Vol] 33.0 g/dL Normal 32-36 [facility] Comment on above: Performed By: #### L 500.2500, L100.0100 ####[facility] [address] [place], [address] MCV (RBC) [Entitic vol] 92.9 fL Normal 81-[address] [facility] Comment on above: Performed By: #### L 500.2500, L100.0100 ####[facility] [address] [place], [address] Monocytes/100 WBC (Bld) 8.0 % Normal 0-[address] [facility] Comment on above: Performed By: #### L 500.2500, L100.0100 ####[facility] [address] [place], [address] Neutrophils/100 WBC (Bld) 69.8 % Normal 47-70 [facility] Comment on above: Performed By: #### L 500.2500, L100.0100 ####[facility] [address] [place], [address] Nucleated RBC (Bld) [#/Vol] 0 10*3/uL Normal 0-5 [facility] Comment on above: Performed By: #### L 500.2500, L100.0100 ####[facility] [address] [place], [address] Platelet mean volume (Bld) [Entitic vol] 8.6 fL Normal 6.2-12.0 [facility] Comment on above: Performed By: #### L 500.2500, L100.0100 ####[facility] [address] [place], [address] Platelets (Bld) [#/Vol] 453 10*3/uL High 150-450 [facility] Comment on above: Performed By: #### L 500.2500, L100.0100 ####[facility] [address] [place], [address] RBC (Bld) [#/Vol] 3.10 10*6/uL Low 4.2-5.4 [facility] Comment on above: Performed By: #### L 500.2500, L100.0100 ####[facility] [address] [place], [address] RDW SD 49.5 fl High 35.1-43.9 [facility] Comment on above: Performed By: #### L 500.2500, L100.0100 ####[facility] [address] [place], [address] WBC (Bld) [#/Vol] 8.0 10*3/uL Normal 4.4-11.0 [facility] Comment on above: Performed By: #### L 500.2500, L100.0100 ####[facility] [address] [place], [address] Chest 1 View (Portable)on Chest 1 View (Portable) Normal [facility] Emergency Department Summary on 07-26-2024 Emergency Department Summary Normal [facility] H AND P Exam - Hospitaliston 07-26-2024 H&P Exam - Hospitalist Normal [facility] HIP, UNI W/ Pelvis 2-3 Views on 07-26-2024 HIP, UNI W/ Pelvis 2-3 Views Normal [facility] Knee 1 or 2 Viewson 07-26-20 24 Knee 1 or 2 Views Normal [facility] Magnesiumon 07-26-2024 Magnesium [Mass/Vol] 2.0 mg/dL Normal 1.6-2.6 [facility] Comment on above: Performed By: #### L 501.5200, L501.2300 ####[facility] [address] [place], [address] Phosphoruson 07-26-2024 Phosphate [Mass/Vol] 2.6 mg/dL Normal 2.5-4.9 [facility] Comment on above: Performed By: #### L 501.5200, L501.2300 ####[facility] [address] [place], [address] Phosphorus measurementOrdere d By: Lance Gresham on 07-26-2024 Phosphorus Level 2.6 mg/dL 2.5-4.9 [facility] Potassiumon 07-26-2024 Potassium [Moles/Vol] 3.9 mmol/L Normal 3.5-5.1 [facility] Comment on above: Performed By: #### L 501.5600 ####[facility] [address] [place], [address] HIP, UNI W/ Pelvis 2-3 Views on 07-22-2024 HIP, UNI W/ Pelvis 2-3 Views Normal [facility] Orthopedic Visit Reporton Orthopedic Visit Report Normal [facility] CBC-Complete Blood Cnt No Di ffon 07-19-2024 HCT Normal 37-47 [facility] Comment on above: Result Comment: Canc elled via OM: Order cancelled - Patient discharged Performed By: #### L 100.0500 ####[facility] [address] [place], [address] HGB Normal 12.0-15.0 [facility] Comment on above: Result Comment: Canc elled via OM: Order cancelled - Patient discharged Performed By: #### L 100.0500 ####[facility] [address] [place], [address] MCH Normal 27.0-32.0 [facility] Comment on above: Result Comment: Canc elled via OM: Order cancelled - Patient discharged Performed By: #### L 100.0500 ####[facility] [address] [place], [address] MCHC Normal 32-36 [facility] Comment on above: Result Comment: Canc elled via OM: Order cancelled - Patient discharged Performed By: #### L 100.0500 ####[facility] [address] [place], [address] MCV Normal 81-99 [facility] Comment on above: Result Comment: Canc elled via OM: Order cancelled - Patient discharged Performed By: #### L 100.0500 ####[facility] [address] [place], [address] PLT Normal 150-450 [facility] Comment on above: Result Comment: Canc elled via OM: Order cancelled - Patient discharged Performed By: #### L 100.0500 ####[facility] [address] [place], [address] RBC Normal 4.2-5.4 [facility] Comment on above: Result Comment: Canc elled via OM: Order cancelled - Patient discharged Performed By: #### L 100.0500 ####[facility] [address] [place], [address] RDW CV Normal 11.6-14.6 [facility] Comment on above: Result Comment: Canc elled via OM: Order cancelled - Patient discharged Performed By: #### L 100.0500 ####[facility] [address] [place], [address] RDW SD Normal 35.1-43.9 [facility] Comment on above: Result Comment: Canc elled via OM: Order cancelled - Patient discharged Performed By: #### L 100.0500 ####[facility] [address] [place], [address] WBC Normal 4.4-11.0 [facility] Comment on above: Result Comment: Canc elled via OM: Order cancelled - Patient discharged Performed By: #### L 100.0500 ####[facility] [address] [place], [address] CBC-Complete Blood Cnt No Di ffon 07-18-2024 Erythrocyte distribution width (RBC) [Ratio] 13.8 % Normal 11.6-14.6 [facility] Comment on above: Performed By: #### L 100.0500 ####[facility] [address] [place], [address] Hematocrit (Bld) [Volume fraction] 26.2 % Low 37-47 [facility] Comment on above: Performed By: #### L 100.0500 ####[facility] [address] [place], [address] Hemoglobin (Bld) [Mass/Vol] 8.6 g/dL Low 12.0-15.0 [facility] Comment on above: Performed By: #### L 100.0500 ####[facility] [address] [place], [address] MCH (RBC) [Entitic mass] 30.8 pg Normal 27.0-32.0 [facility] Comment on above: Performed By: #### L 100.0500 ####[facility] [address] [place], [address] MCHC (RBC) [Mass/Vol] 32.8 g/dL Normal 32-36 [facility] Comment on above: Performed By: #### L 100.0500 ####[facility] [address] [place], [address] MCV (RBC) [Entitic vol] 93.9 fL Normal 81-99 [facility] Comment on above: Performed By: #### L 100.0500 ####[facility] [address] [place], [address] Platelet mean volume (Bld) [Entitic vol] 9.9 fL Normal 6.2-12.0 [facility] Comment on above: Performed By: #### L 100.0500 ####[facility] [address] [place], [address] Platelets (Bld) [#/Vol] 173 10*3/uL Normal 150-450 [facility] Comment on above: Performed By: #### L 100.0500 ####[facility] [address] [place], [address] RBC (Bld) [#/Vol] 2.79 10*6/uL Low 4.2-5.4 [facility] Comment on above: Performed By: #### L 100.0500 ####[facility] [address] [place], [address] RDW SD 47.6 fl High 35.1-43.9 [facility] Comment on above: Performed By: #### L 100.0500 ####[facility] [address] [place], [address] WBC (Bld) [#/Vol] 9.9 10*3/uL Normal 4.4-11.0 [facility] Comment on above: Performed By: #### L 100.0500 ####[facility] [address] [place], [address] Discharge Instructionon 07-05 Discharge Instruction Normal [facility] Basic Metabolic Profile (BMP )on 07-17-2024 BUN/CRE 13.7 RATIO Normal 10-20 [facility] Comment on above: Performed By: #### L 100.0500, L500.2500 ####[facility] [address] [place], [address] CA,Total 8.1 mg/dL Low 8.5-10.1 [facility] Comment on above: Performed By: #### L 100.0500, L500.2500 ####[facility] [address] [place], [address] Chloride [Moles/Vol] 108 mmol/L High 98-107 [facility] Comment on above: Performed By: #### L 100.0500, L500.2500 ####[facility] [address] [place], [address] CO2 [Moles/Vol] 23.0 mmol/L Normal 21.0-32.0 [facility] Comment on above: Performed By: #### L 100.0500, L500.2500 ####[facility] [address] [place], [address] Creatinine [Mass/Vol] 1.17 mg/dL High 0.55-1.02 [facility] Comment on above: Result Comment: The validity of the calculated GFR GFRAA in patients over70 years has not been determined. Clinical correlation isessential. Performed By: #### L 100.0500, L500.2500 ####[facility] [address] [place], [address] ECRCL 40.26 ml/min Normal [facility] Comment on above: Performed By: #### L 100.0500, L500.2500 ####[facility] [address] [place], [address] EST GFR - AA 59 mL/min Low >60 [facility] Comment on above: Result Comment: Afri can Maltese GFR Calc Performed By: #### L 100.0500, L500.2500 ####[facility] [address] [place], [address] GAP 8 Normal 5-15 [facility] Comment on above: Performed By: #### L 100.0500, L500.2500 ####[facility] [address] [place], [address] GFR/1.73 sq M.predicted among non-blacks MDRD (S/P/Bld) [Vol rate/Area] 48 mL/min/{1.73_m2} Low >60 [facility] Comment on above: Result Comment: Non- GFR Calc Performed By: #### L 100.0500, L500.2500 ####[facility] [address] [place], [address] Glucose [Mass/Vol] 113 mg/dL High 74-106 [facility] Comment on above: Result Comment: Fast ing Glucose result from 100 to 125 mg/dLsuggests IMPAIRED HOMEOSTASIS per A.D.A. criteria. Performed By: #### L 100.0500, L500.2500 ####[facility] [address] [place], [address] Potassium [Moles/Vol] 3.4 mmol/L Low 3.5-5.1 [facility] Comment on above: Performed By: #### L 100.0500, L500.2500 ####[facility] [address] [place], [address] Sodium [Moles/Vol] 139 mmol/L Normal 136-145 [facility] Comment on above: Performed By: #### L 100.0500, L500.2500 ####[facility] [address] [place], [address] Urea nitrogen [Mass/Vol] 16 mg/dL Normal 7-18 [facility] Comment on above: Performed By: #### L 100.0500, L500.2500 ####[facility] [address] [place], [address] CBC-Complete Blood Cnt No Di ffon 07-17-2024 Erythrocyte distribution width (RBC) [Ratio] 13.7 % Normal 11.6-14.6 [facility] Comment on above: Performed By: #### L 100.0500, L500.2500 ####[facility] [address] [place], [address] Hematocrit (Bld) [Volume fraction] 28.8 % Low 37-47 [facility] Comment on above: Performed By: #### L 100.0500, L500.2500 ####[facility] [address] [place], [address] Hemoglobin (Bld) [Mass/Vol] 9.6 g/dL Low 12.0-15.0 [facility] Comment on above: Performed By: #### L 100.0500, L500.2500 ####[facility] [address] [place], [address] MCH (RBC) [Entitic mass] 30.7 pg Normal 27.0-32.0 [facility] Comment on above: Performed By: #### L 100.0500, L500.2500 ####[facility] [address] [place], [address] MCHC (RBC) [Mass/Vol] 33.3 g/dL Normal 32-36 [facility] Comment on above: Performed By: #### L 100.0500, L500.2500 ####[facility] [address] [place], [address] MCV (RBC) [Entitic vol] 92.0 fL Normal 81-99 [facility] Comment on above: Performed By: #### L 100.0500, L500.2500 ####[facility] [address] [place], [address] Platelet mean volume (Bld) [Entitic vol] 9.3 fL Normal 6.2-12.0 [facility] Comment on above: Performed By: #### L 100.0500, L500.2500 ####[facility] [address] [place], [address] Platelets (Bld) [#/Vol] 232 10*3/uL Normal 150-450 [facility] Comment on above: Performed By: #### L 100.0500, L500.2500 ####[facility] [address] [place], [address] RBC (Bld) [#/Vol] 3.13 10*6/uL Low 4.2-5.4 [facility] Comment on above: Performed By: #### L 100.0500, L500.2500 ####[facility] [address] [place], [address] RDW SD 45.9 fl High 35.1-43.9 [facility] Comment on above: Performed By: #### L 100.0500, L500.2500 ####[facility] [address] [place], [address] WBC (Bld) [#/Vol] 11.7 10*3/uL High 4.4-11.0 [facility] Comment on above: Performed By: #### L 100.0500, L500.2500 ####[facility] [address] [place], [address] Bedside Glucoseon 07-16-2024 FINGERSTICK GLU 94 mg/dL Normal 74-106 [facility] Comment on above: Result Comment: DANIEL DUKES OF PATIENT CARE PER NURSING PROTOCOL Performed By: #### L 501.080 ####[facility] [address] [place], [address] Decalcification bone/plaqueo n 07-16-2024 Decalcification bone/plaque Normal [facility] Comment on above: Performed By: #### P DEC ####[facility] [address] [place], [place], [id number] Hip Min 2 Views (Portable)on 07-16-2024 Hip Min 2 Views (Portable) Normal [facility] MR/POSTOP.ANEon 07-16-2024 MR/POSTOP.ANE Normal [facility] MR/[id number] 07-16-2024 MR/POSTOPAN2 Normal [facility] Operative Reporton Operative Report Normal [facility] Type AND Screenon 07-16-2024 ABO and Rh group Nom (Bld) Blood group A Rh(D) positive Normal [facility] Comment on above: Order Comment: Reaso n for Laboratory Test [id number] hipOTHER Performed By: #### B TS ####[facility] [address] [facility] [address] [place], [place], [id number] Extremity Lower without Cont raon 07-12-2024 Extremity Lower without Contra Normal [facility] Fructosamineon 07-08-2024 FRUCTOSAMINE 283 umol/L Normal 0-285 [facility] Comment on above: Order Comment: DR ASH LENTZ ORDERED INTERNAL PAT LABDR. ROBERT ORDERED A1C VITD CBCD CMP TSH PT PTT Result Comment: Publ ished reference interval for apparently healthysubjects between age 20 and 60 is 205 - 285 umol/L and in apoorly controlled diabetic population is 228 - 563 umol/Lwith a mean of 396 umol/L.Performed at: - [facility] [id number] Director: Franklyn Lopez PhD, Phone: [phone] Performed By: #### L 500.4050, L100.0100, L501.9985, L506.1000, L501.9520, L300.4310, M100.651, L3400.0100, L300.3900 ####[facility] [address] [place], [place], [phone]) MRSA/SAID NASAL SCREENon MRSA+SAID SCRN Reason for Exam: PRE OP DR JOHNSON ORDERED INTERNAL PAT LAB DR. JONES ORDERED A1C VITD CBCD CMP TSH PT PTT MRSA MRSA Negative S. AUREUS S. aureus Negative Normal [facility] Comment on above: Performed By: #### L 500.4050, L100.0100, L501.9985, L506.1000, L501.9520, L300.4310, M100.651, L3400.0100, L300.3900 ####[facility] [address] [place], [place], [phone] CBC W/Diff, Automatedon Absolute Lymph 1.25 X10 3/uL Normal 0.83-4.51 [facility] Comment on above: Order Comment: DR ASH LENTZ ORDERED INTERNAL PAT LABDR. JONES ORDERED A1C VITD CBCD CMP TSH PT PTT Performed By: #### L 500.4050, L100.0100, L501.9985, L506.1000, L501.9520, L300.4310, M100.651, L3400.0100, L300.3900 ####[facility] [address] [place], [place], [phone]) Absolute Neut 3.2 X10 3/uL Normal 2.0-7.7 [facility] Comment on above: Order Comment: DR ASH LENTZ ORDERED INTERNAL PAT LABDR. JONES ORDERED A1C VITD CBCD CMP TSH PT PTT Performed By: #### L 500.4050, L100.0100, L501.9985, L506.1000, L501.9520, L300.4310, M100.651, L3400.0100, L300.3900 ####[facility] [address] [place], [place], [phone] Basophils/100 WBC (Bld) 1.0 % Normal 0-1 [facility] Comment on above: Order Comment: DR ASH LENTZ ORDERED INTERNAL PAT LABDR. ROBERT ORDERED A1C VITD CBCD CMP TSH PT PTT Performed By: #### L 500.4050, L100.0100, L501.9985, L506.1000, L501.9520, L300.4310, M100.651, L3400.0100, L300.3900 ####[facility] [address] [place], [address] Eosinophils/100 WBC (Bld) 1.7 % Normal 0-5 [facility] Comment on above: Order Comment: DR ASH LENTZ ORDERED INTERNAL PAT LABDR. ROBERT ORDERED A1C VITD CBCD CMP TSH PT PTT Performed By: #### L 500.4050, L100.0100, L501.9985, L506.1000, L501.9520, L300.4310, M100.651, L3400.0100, L300.3900 ####[facility] [address] [place], [place], [phone] Erythrocyte distribution width (RBC) [Ratio] 14.0 % Normal 11.6-14.6 [facility] Comment on above: Order Comment: DR ASH LENTZ ORDERED INTERNAL PAT LABDRMichelle JONES ORDERED A1C VITD CBCD CMP TSH PT PTT Performed By: #### L 500.4050, L100.0100, L501.9985, L506.1000, L501.9520, L300.4310, M100.651, L3400.0100, L300.3900 ####[facility] [address] [place], [place], [phone]) Hematocrit (Bld) [Volume fraction] 38.6 % Normal 37-47 [facility] Comment on above: Order Comment: DR ASH LENTZ ORDERED INTERNAL PAT LABDR. ROBERT ORDERED A1C VITD CBCD CMP TSH PT PTT Performed By: #### L 500.4050, L100.0100, L501.9985, L506.1000, L501.9520, L300.4310, M100.651, L3400.0100, L300.3900 ####[facility] [address] [place], [address] Hemoglobin (Bld) [Mass/Vol] 12.2 g/dL Normal 12.0-15.0 [facility] Comment on above: Order Comment: DR ASH LENTZ ORDERED INTERNAL PAT LABDR. ROBERT ORDERED A1C VITD CBCD CMP TSH PT PTT Performed By: #### L 500.4050, L100.0100, L501.9985, L506.1000, L501.9520, L300.4310, M100.651, L3400.0100, L300.3900 ####[facility] [address] [place], [address] IG% 0.400 Normal 0.0-0.9 [facility] Comment on above: Order Comment: DR ASH LENTZ ORDERED INTERNAL PAT LABDRMichelle JONES ORDERED A1C VITD CBCD CMP TSH PT PTT Result Comment: IG% - Immature Granulocytes (promyelocytes, myelocytes andmetamyelocytes) > 1% indicates that a LEFT SHIFT is Present. Performed By: #### L 500.4050, L100.0100, L501.9985, L506.1000, L501.9520, L300.4310, M100.651, L3400.0100, L300.3900 ####[facility] [address] [place], [address] Lymphocytes/100 WBC (Bld) 24.1 % Normal 19-41 [facility] Comment on above: Order Comment: DR ASH LENTZ ORDERED INTERNAL PAT LABDRMichelle JONES ORDERED A1C VITD CBCD CMP TSH PT PTT Performed By: #### L 500.4050, L100.0100, L501.9985, L506.1000, L501.9520, L300.4310, M100.651, L3400.0100, L300.3900 ####[facility] [address] [place], [address] MCH (RBC) [Entitic mass] 30.3 pg Normal 27.0-32.0 [facility] Comment on above: Order Comment: DR ASH LENTZ ORDERED INTERNAL PAT LABDR. ROBERT ORDERED A1C VITD CBCD CMP TSH PT PTT Performed By: #### L 500.4050, L100.0100, L501.9985, L506.1000, L501.9520, L300.4310, M100.651, L3400.0100, L300.3900 ####[facility] [address] [place], [address] MCHC (RBC) [Mass/Vol] 31.6 g/dL Low 32-36 [facility] Comment on above: Order Comment: DR ASH LENTZ ORDERED INTERNAL PAT LABDR. ROBERT ORDERED A1C VITD CBCD CMP TSH PT PTT Performed By: #### L 500.4050, L100.0100, L501.9985, L506.1000, L501.9520, L300.4310, M100.651, L3400.0100, L300.3900 ####[facility] [address] [place], [address] MCV (RBC) [Entitic vol] 95.8 fL Normal 81-[address] [facility] Comment on above: Order Comment: DR ASH LENTZ ORDERED INTERNAL PAT LABDR. ROBERT ORDERED A1C VITD CBCD CMP TSH PT PTT Performed By: #### L 500.4050, L100.0100, L501.9985, L506.1000, L501.9520, L300.4310, M100.651, L3400.0100, L300.3900 ####[facility] [address] [place], [address] Monocytes/100 WBC (Bld) 11.0 % High 0-[address] [facility] Comment on above: Order Comment: DR ASH LENTZ ORDERED INTERNAL PAT LABDR. ROBERT ORDERED A1C VITD CBCD CMP TSH PT PTT Performed By: #### L 500.4050, L100.0100, L501.9985, L506.1000, L501.9520, L300.4310, M100.651, L3400.0100, L300.3900 ####[facility] [address] [place], [address] Neutrophils/100 WBC (Bld) 61.8 % Normal 47-70 [facility] Comment on above: Order Comment: DR ASH LENTZ ORDERED INTERNAL PAT LABDRMichelle JONES ORDERED A1C VITD CBCD CMP TSH PT PTT Performed By: #### L 500.4050, L100.0100, L501.9985, L506.1000, L501.9520, L300.4310, M100.651, L3400.0100, L300.3900 ####[facility] [address] [place], [address] Nucleated RBC (Bld) [#/Vol] 0 10*3/uL Normal 0-5 [facility] Comment on above: Order Comment: DR ASH LENTZ ORDERED INTERNAL PAT LABDRMichelle JONES ORDERED A1C VITD CBCD CMP TSH PT PTT Performed By: #### L 500.4050, L100.0100, L501.9985, L506.1000, L501.9520, L300.4310, M100.651, L3400.0100, L300.3900 ####[facility] [address] [place], [address] Platelet mean volume (Bld) [Entitic vol] 9.4 fL Normal 6.2-12.0 [facility] Comment on above: Order Comment: DR ASH LENTZ ORDERED INTERNAL PAT LABDRMichelle JONES ORDERED A1C VITD CBCD CMP TSH PT PTT Performed By: #### L 500.4050, L100.0100, L501.9985, L506.1000, L501.9520, L300.4310, M100.651, L3400.0100, L300.3900 ####[facility] [address] [place], [address] Platelets (Bld) [#/Vol] 205 10*3/uL Normal 150-450 [facility] Comment on above: Order Comment: DR ASH LENTZ ORDERED INTERNAL PAT LABDRMichelle JONES ORDERED A1C VITD CBCD CMP TSH PT PTT Performed By: #### L 500.4050, L100.0100, L501.9985, L506.1000, L501.9520, L300.4310, M100.651, L3400.0100, L300.3900 ####[facility] [address] [place], [address] RBC (Bld) [#/Vol] 4.03 10*6/uL Low 4.2-5.4 [facility] Comment on above: Order Comment: DR ASH LENTZ ORDERED INTERNAL PAT LABDRMichelle JONES ORDERED A1C VITD CBCD CMP TSH PT PTT Performed By: #### L 500.4050, L100.0100, L501.9985, L506.1000, L501.9520, L300.4310, M100.651, L3400.0100, L300.3900 ####[facility] [address] [place], [address] RDW SD 49.3 fl High 35.1-43.9 [facility] Comment on above: Order Comment: DR ASH LENTZ ORDERED INTERNAL PAT LABDRMichelle JONES ORDERED A1C VITD CBCD CMP TSH PT PTT Performed By: #### L 500.4050, L100.0100, L501.9985, L506.1000, L501.9520, L300.4310, M100.651, L3400.0100, L300.3900 ####[facility] [address] [place], [address] WBC (Bld) [#/Vol] 5.2 10*3/uL Normal 4.4-11.0 [facility] Comment on above: Order Comment: DR ASH LENTZ ORDERED INTERNAL PAT LABDRMichelle JONES ORDERED A1C VITD CBCD CMP TSH PT PTT Performed By: #### L 500.4050, L100.0100, L501.9985, L506.1000, L501.9520, L300.4310, M100.651, L3400.0100, L300.3900 ####[facility] [address] [place], [place], [phone] Comprehensive Metabolic Prof ilon 07-05-2024 Albumin [Mass/Vol] 3.8 g/dL Normal 3.2-5.0 [facility] Comment on above: Order Comment: DR ASH LENTZ ORDERED INTERNAL PAT LABDR. ROBERT ORDERED A1C VITD CBCD CMP TSH PT PTT Performed By: #### L 500.4050, L100.0100, L501.9985, L506.1000, L501.9520, L300.4310, M100.651, L3400.0100, L300.3900 ####[facility] [address] [place], [place], [phone] Albumin/Globulin [Mass ratio] 1.2 {ratio} Normal 0.9-2.4 [facility] Comment on above: Order Comment: DR ASH LENTZ ORDERED INTERNAL PAT LABDR. ROBERT ORDERED A1C VITD CBCD CMP TSH PT PTT Performed By: #### L 500.4050, L100.0100, L501.9985, L506.1000, L501.9520, L300.4310, M100.651, L3400.0100, L300.3900 ####[facility] [address] [place], [place], [phone] ALK P 52 U/L Normal 45-117 [facility] Comment on above: Order Comment: DR ASH LENTZ ORDERED INTERNAL PAT LABDR. ROBERT ORDERED A1C VITD CBCD CMP TSH PT PTT Performed By: #### L 500.4050, L100.0100, L501.9985, L506.1000, L501.9520, L300.4310, M100.651, L3400.0100, L300.3900 ####[facility] [address] [place], [address] ALT [Catalytic activity/Vol] 15 U/L Normal 13-56 [facility] Comment on above: Order Comment: DR ASH LENTZ ORDERED INTERNAL PAT LABDR. ROBERT ORDERED A1C VITD CBCD CMP TSH PT PTT Performed By: #### L 500.4050, L100.0100, L501.9985, L506.1000, L501.9520, L300.4310, M100.651, L3400.0100, L300.3900 ####[facility] [address] [place], [address] AST [Catalytic activity/Vol] 14 U/L Low 15-37 [facility] Comment on above: Order Comment: DR ASH LENTZ ORDERED INTERNAL PAT LABDR. ROBERT ORDERED A1C VITD CBCD CMP TSH PT PTT Performed By: #### L 500.4050, L100.0100, L501.9985, L506.1000, L501.9520, L300.4310, M100.651, L3400.0100, L300.3900 ####[facility] [address] [place], [address] Bilirubin [Mass/Vol] 1.40 mg/dL High 0.20-1.00 [facility] Comment on above: Order Comment: DR ASH LENTZ ORDERED INTERNAL PAT LABDRMichelle JONES ORDERED A1C VITD CBCD CMP TSH PT PTT Result Comment: For patients on eltrombopag therapy, use of Dimension [place] TBIL is not recommended. Performed By: #### L 500.4050, L100.0100, L501.9985, L506.1000, L501.9520, L300.4310, M100.651, L3400.0100, L300.3900 ####[facility] [address] [place], [address] BUN/CRE 13.7 RATIO Normal 10-20 [facility] Comment on above: Order Comment: DR ASH LNETZ ORDERED INTERNAL PAT LABDRMichelle JONES ORDERED A1C VITD CBCD CMP TSH PT PTT Performed By: #### L 500.4050, L100.0100, L501.9985, L506.1000, L501.9520, L300.4310, M100.651, L3400.0100, L300.3900 ####[facility] [address] [place], [address] CA,Total 8.4 mg/dL Low 8.5-10.1 [facility] Comment on above: Order Comment: DR ASH LENTZ ORDERED INTERNAL PAT LABDRMichelle JONES ORDERED A1C VITD CBCD CMP TSH PT PTT Performed By: #### L 500.4050, L100.0100, L501.9985, L506.1000, L501.9520, L300.4310, M100.651, L3400.0100, L300.3900 ####[facility] [address] [place], [address] Chloride [Moles/Vol] 106 mmol/L Normal 98-107 [facility] Comment on above: Order Comment: DR ASH LENTZ ORDERED INTERNAL PAT LABDRMichelle JONES ORDERED A1C VITD CBCD CMP TSH PT PTT Performed By: #### L 500.4050, L100.0100, L501.9985, L506.1000, L501.9520, L300.4310, M100.651, L3400.0100, L300.3900 ####[facility] [address] [place], [address] CO2 [Moles/Vol] 29.0 mmol/L Normal 21.0-32.0 [facility] Comment on above: Order Comment: DR ASH LENTZ ORDERED INTERNAL PAT LABDR. ROBERT ORDERED A1C VITD CBCD CMP TSH PT PTT Performed By: #### L 500.4050, L100.0100, L501.9985, L506.1000, L501.9520, L300.4310, M100.651, L3400.0100, L300.3900 ####[facility] [address] [place], [address] Creatinine [Mass/Vol] 0.88 mg/dL Normal 0.55-1.02 [facility] Comment on above: Order Comment: DR ASH LENTZ ORDERED INTERNAL PAT LABDR. ROBERT ORDERED A1C VITD CBCD CMP TSH PT PTT Result Comment: The validity of the calculated GFR GFRAA in patients over70 years has not been determined. Clinical correlation isessential. Performed By: #### L 500.4050, L100.0100, L501.9985, L506.1000, L501.9520, L300.4310, M100.651, L3400.0100, L300.3900 ####[facility] [address] [place], [address] EST GFR - AA 82 mL/min Normal >60 [facility] Comment on above: Order Comment: DR ASH LENTZ ORDERED INTERNAL PAT LABDR. ROBERT ORDERED A1C VITD CBCD CMP TSH PT PTT Result Comment: Afri can Maltese GFR Calc Performed By: #### L 500.4050, L100.0100, L501.9985, L506.1000, L501.9520, L300.4310, M100.651, L3400.0100, L300.3900 ####[facility] [address] [place], [address] GAP 6 Normal 5-15 [facility] Comment on above: Order Comment: DR ASH LENTZ ORDERED INTERNAL PAT LABDRMichelle JONES ORDERED A1C VITD CBCD CMP TSH PT PTT Performed By: #### L 500.4050, L100.0100, L501.9985, L506.1000, L501.9520, L300.4310, M100.651, L3400.0100, L300.3900 ####[facility] [address] [place], [address] GFR/1.73 sq M.predicted among non-blacks MDRD (S/P/Bld) [Vol rate/Area] 68 mL/min/{1.73_m2} Normal >60 [facility] Comment on above: Order Comment: DR ASH LENTZ ORDERED INTERNAL PAT LABDR. ROBERT ORDERED A1C VITD CBCD CMP TSH PT PTT Result Comment: Non- GFR Calc Performed By: #### L 500.4050, L100.0100, L501.9985, L506.1000, L501.9520, L300.4310, M100.651, L3400.0100, L300.3900 ####[facility] [address] [place], [address] Globulin (S) [Mass/Vol] 3.2 g/dL Normal 2.2-4.[address] [facility] Comment on above: Order Comment: DR ASH LENTZ ORDERED INTERNAL PAT LABDR. ROBERT ORDERED A1C VITD CBCD CMP TSH PT PTT Performed By: #### L 500.4050, L100.0100, L501.9985, L506.1000, L501.9520, L300.4310, M100.651, L3400.0100, L300.3900 ####[facility] [address] [place], [address] Glucose [Mass/Vol] 97 mg/dL Normal 74-106 [facility] Comment on above: Order Comment: DR ASH LENTZ ORDERED INTERNAL PAT LABDR. ROBERT ORDERED A1C VITD CBCD CMP TSH PT PTT Performed By: #### L 500.4050, L100.0100, L501.9985, L506.1000, L501.9520, L300.4310, M100.651, L3400.0100, L300.3900 ####[facility] [address] [place], [address] Potassium [Moles/Vol] 3.7 mmol/L Normal 3.5-5.1 [facility] Comment on above: Order Comment: DR ASH LENTZ ORDERED INTERNAL PAT LABDRMichelle JONES ORDERED A1C VITD CBCD CMP TSH PT PTT Performed By: #### L 500.4050, L100.0100, L501.9985, L506.1000, L501.9520, L300.4310, M100.651, L3400.0100, L300.3900 ####[facility] [address] [place], [address] Sodium [Moles/Vol] 140 mmol/L Normal 136-145 [facility] Comment on above: Order Comment: DR ASH LENTZ ORDERED INTERNAL PAT LABDR. ROBERT ORDERED A1C VITD CBCD CMP TSH PT PTT Performed By: #### L 500.4050, L100.0100, L501.9985, L506.1000, L501.9520, L300.4310, M100.651, L3400.0100, L300.3900 ####[facility] [address] [place], [address] T PROT 7.0 g/dL Normal 6.4-8.2 [facility] Comment on above: Order Comment: DR ASH LENTZ ORDERED INTERNAL PAT LABDR. ROBERT ORDERED A1C VITD CBCD CMP TSH PT PTT Performed By: #### L 500.4050, L100.0100, L501.9985, L506.1000, L501.9520, L300.4310, M100.651, L3400.0100, L300.3900 ####[facility] [address] [place], [address] Urea nitrogen [Mass/Vol] 12 mg/dL Normal 7-18 [facility] Comment on above: Order Comment: DR ASH LENTZ ORDERED INTERNAL PAT LABDR. ROBERT ORDERED A1C VITD CBCD CMP TSH PT PTT Performed By: #### L 500.4050, L100.0100, L501.9985, L506.1000, L501.9520, L300.4310, M100.651, L3400.0100, L300.3900 ####[facility] [address] [place], [address] Hemoglobin A1con 07-05-2024 HbA1c (Bld) [Mass fraction] 5.3 % Normal 3.8-5.6 [facility] Comment on above: Order Comment: DR ASH LENTZ ORDERED INTERNAL PAT LABDR. ROBERT ORDERED A1C VITD CBCD CMP TSH PT PTT Result Comment: Norm al < 5.7 % Prediabetic 5.7 - 6.4 % Diabetic >or= 6.5 % Please note range changes. Performed By: #### L 500.4050, L100.0100, L501.9985, L506.1000, L501.9520, L300.4310, M100.651, L3400.0100, L300.3900 ####[facility] [address] [place], [address] Magnesiumon 07-05-2024 Magnesium [Mass/Vol] 2.3 mg/dL Normal 1.6-2.6 [facility] Comment on above: Performed By: #### L 501.5200 ####[facility] [address] [place], [address] Partial Thromboplast Timeon 07-05-2024 aPTT Coag (Bld) [Time] 27.8 s Normal 24.1-36.2 [facility] Comment on above: Order Comment: DR ASH LENTZ ORDERED INTERNAL PAT LABDR. ROBERT ORDERED A1C VITD CBCD CMP TSH PT PTT Performed By: #### L 500.4050, L100.0100, L501.9985, L506.1000, L501.9520, L300.4310, M100.651, L3400.0100, L300.3900 ####[facility] [address] [place], [address] Prothrombin Time w/INRon INR Coag (PPP) [Relative time] 1.1 {INR} Normal [facility] Comment on above: Order Comment: DR ASH LENTZ ORDERED INTERNAL PAT LABDRMichelle JONES ORDERED A1C VITD CBCD CMP TSH PT PTT Performed By: #### L 500.4050, L100.0100, L501.9985, L506.1000, L501.9520, L300.4310, M100.651, L3400.0100, L300.3900 ####[facility] [address] [place], [address] PT Coag (PPP) [Time] 14.4 s Normal 11.7-14.9 [facility] Comment on above: Order Comment: DR ASH LENTZ ORDERED INTERNAL PAT LABDR. ROBERT ORDERED A1C VITD CBCD CMP TSH PT PTT Performed By: #### L 500.4050, L100.0100, L501.9985, L506.1000, L501.9520, L300.4310, M100.651, L3400.0100, L300.3900 ####[facility] [address] [place], [address] Thyroid Stim Hormone (TSH)on 07-05-2024 TSH 1.080 uIU/mL Normal 0.358-3.74 0 [facility] Comment on above: Order Comment: DR ASH LENTZ ORDERED INTERNAL PAT LABDR. ROBERT ORDERED A1C VITD CBCD CMP TSH PT PTT Performed By: #### L 500.4050, L100.0100, L501.9985, L506.1000, L501.9520, L300.4310, M100.651, L3400.0100, L300.3900 ####[facility] [address] [place], [address] Type AND Screen - PAT ONLYon 07-05-2024 A1 CELL Not performed Normal [facility] Comment on above: Order Comment: Reaso n for Laboratory Test [id number]/ANNSTOTAL HIP REPLACMENT Result Comment: SAMP LE MISLABELED Performed By: #### B TSPAT ####[facility] [address] [place], [address] Ab SCREEN GEL Not performed Normal [facility] Comment on above: Order Comment: Reaso n for Laboratory Test [id number]/ANNSTOTAL HIP REPLACMENT Result Comment: SAMP LE MISLABELED Performed By: #### B TSPAT ####[facility] [address] [place], [address] ABO and Rh group Nom (Bld) Test Not Performed Normal [facility] Comment on above: Order Comment: Reaso n for Laboratory Test [id number]/ANNSTOTAL HIP REPLACMENT Result Comment: SAMP LE MISLABELED Performed By: #### B TSPAT ####[facility] [address] [place], [address] ANTI A Not performed Normal [facility] Comment on above: Order Comment: Reaso n for Laboratory Test [id number]/ANNSTOTAL HIP REPLACMENT Result Comment: SAMP LE MISLABELED Performed By: #### B TSPAT ####[facility] [address] [place], [address] ANTI B Not performed Normal [facility] Comment on above: Order Comment: Reaso n for Laboratory Test [id number]/ANNSTOTAL HIP REPLACMENT Result Comment: SAMP LE MISLABELED Performed By: #### B TSPAT ####[facility] [address] [place], [address] ANTI D Not performed Normal [facility] Comment on above: Order Comment: Reaso n for Laboratory Test [id number]/ANNSTOTAL HIP REPLACMENT Result Comment: SAMP LE MISLABELED Performed By: #### B TSPAT ####[facility] [address] [place], [address] B CELLS Not performed Normal [facility] Comment on above: Order Comment: Reaso n for Laboratory Test [id number]/ANNSTOTAL HIP REPLACMENT Result Comment: SAMP LE MISLABELED Performed By: #### B TSPAT ####[facility] [address] [place], [address] Vitamin D,25 Hydroxyon 07-05 Vitamin D 25-OH 55.5 ng/mL Normal [facility] Comment on above: Order Comment: DR ASH LENTZ ORDERED INTERNAL PAT LABDRMichelle JONES ORDERED A1C VITD CBCD CMP TSH PT PTT Result Comment: Pennie min D 25(OH) Status Range Deficiency <20 ng/mL (50nmol/L) Insufficiency 20 - 30 ng/mL (50 - 75 nmol/L) Sufficiency 30 - 100 ng/mL (75 - 250 nmol/L) Toxicity >100 ng/mL (>250 nmol/L) Performed By: #### L 500.4050, L100.0100, L501.9985, L506.1000, L501.9520, L300.4310, M100.651, L3400.0100, L300.3900 ####[facility] [address] [place], [address] Orthopedic Visit Reporton Orthopedic Visit Report Normal [facility] Lower Ext Joint Only (Routin e)on 06-06-2024 Lower Ext Joint Only (Routine) Normal [facility] CBC W/Diff, Automatedon 05-06 Absolute Lymph 1.44 X10 3/uL Normal 0.83-4.51 [facility] Comment on above: Performed By: #### L 100.0100, L500.4050 ####[facility] [address] [place], [address] Absolute Neut 2.6 X10 3/uL Normal 2.0-7.7 [facility] Comment on above: Performed By: #### L 100.0100, L500.4050 ####[facility] [address] [place], [address] Basophils/100 WBC (Bld) 0.9 % Normal 0-1 [facility] Comment on above: Performed By: #### L 100.0100, L500.4050 ####[facility] [address] [place], [address] Eosinophils/100 WBC (Bld) 0.9 % Normal 0-5 [facility] Comment on above: Performed By: #### L 100.0100, L500.4050 ####[facility] [address] [place], [address] Erythrocyte distribution width (RBC) [Ratio] 13.3 % Normal 11.6-14.6 [facility] Comment on above: Performed By: #### L 100.0100, L500.4050 ####[facility] [address] [place], [address] Hematocrit (Bld) [Volume fraction] 39.6 % Normal 37-47 [facility] Comment on above: Performed By: #### L 100.0100, L500.4050 ####[facility] [address] [place], [address] Hemoglobin (Bld) [Mass/Vol] 13.0 g/dL Normal 12.0-15.0 [facility] Comment on above: Performed By: #### L 100.0100, L500.4050 ####[facility] [address] [place], [address] IG% 0.200 Normal 0.0-0.9 [facility] Comment on above: Result Comment: IG% - Immature Granulocytes (promyelocytes, myelocytes andmetamyelocytes) > 1% indicates that a LEFT SHIFT is Present. Performed By: #### L 100.0100, L500.4050 ####[facility] [address] [place], [address] Lymphocytes/100 WBC (Bld) 31.3 % Normal 19-41 [facility] Comment on above: Performed By: #### L 100.0100, L500.4050 ####[facility] [address] [place], [address] MCH (RBC) [Entitic mass] 30.8 pg Normal 27.0-32.0 [facility] Comment on above: Performed By: #### L 100.0100, L500.4050 ####[facility] [address] [place], [address] MCHC (RBC) [Mass/Vol] 32.8 g/dL Normal 32-36 [facility] Comment on above: Performed By: #### L 100.0100, L500.4050 ####[facility] [address] [place], [address] MCV (RBC) [Entitic vol] 93.8 fL Normal 81-[address] [facility] Comment on above: Performed By: #### L 100.0100, L500.4050 ####[facility] [address] [place], [address] Monocytes/100 WBC (Bld) 10.2 % High 0-[address] [facility] Comment on above: Performed By: #### L 100.0100, L500.4050 ####[facility] [address] [place], [address] Neutrophils/100 WBC (Bld) 56.5 % Normal 47-70 [facility] Comment on above: Performed By: #### L 100.0100, L500.4050 ####[facility] [address] [place], [address] Nucleated RBC (Bld) [#/Vol] 0 10*3/uL Normal 0-5 [facility] Comment on above: Performed By: #### L 100.0100, L500.4050 ####[facility] [address] [place], [address] Platelet mean volume (Bld) [Entitic vol] 9.6 fL Normal 6.2-12.0 [facility] Comment on above: Performed By: #### L 100.0100, L500.4050 ####[facility] [address] [place], [address] Platelets (Bld) [#/Vol] 259 10*3/uL Normal 150-450 [facility] Comment on above: Performed By: #### L 100.0100, L500.4050 ####[facility] [address] [place], [address] RBC (Bld) [#/Vol] 4.22 10*6/uL Normal 4.2-5.4 [facility] Comment on above: Performed By: #### L 100.0100, L500.4050 ####[facility] [address] [place], [address] RDW SD 45.3 fl High 35.1-43.9 [facility] Comment on above: Performed By: #### L 100.0100, L500.4050 ####[facility] [address] [place], [address] WBC (Bld) [#/Vol] 4.6 10*3/uL Normal 4.4-11.0 [facility] Comment on above: Performed By: #### L 100.0100, L500.4050 ####[facility] [address] [place], [address] Comprehensive Metabolic Prof [facility] 05-29-2024 Albumin [Mass/Vol] 4.0 g/dL Normal 3.2-5.0 [facility] Comment on above: Performed By: #### L 100.0100, L500.4050 ####[facility] [address] [place], [address] Albumin/Globulin [Mass ratio] 1.1 {ratio} Normal 0.9-2.4 [facility] Comment on above: Performed By: #### L 100.0100, L500.4050 ####[facility] [address] [place], [address] ALK P 79 U/L Normal 45-117 [facility] Comment on above: Performed By: #### L 100.0100, L500.4050 ####[facility] [address] [place], [address] ALT [Catalytic activity/Vol] 20 U/L Normal 13-56 [facility] Comment on above: Performed By: #### L 100.0100, L500.4050 ####[facility] [address] [place], [address] AST [Catalytic activity/Vol] 17 U/L Normal 15-37 [facility] Comment on above: Performed By: #### L 100.0100, L500.4050 ####[facility] [address] [place], [address] Bilirubin [Mass/Vol] 1.10 mg/dL High 0.20-1.00 [facility] Comment on above: Result Comment: For patients on eltrombopag therapy, use of Dimension [place] TBIL is not recommended. Performed By: #### L 100.0100, L500.4050 ####[facility] [address] [place], [address] BUN/CRE 13.9 RATIO Normal 10-20 [facility] Comment on above: Performed By: #### L 100.0100, L500.4050 ####[facility] [address] [place], [address] CA,Total 9.3 mg/dL Normal 8.5-10.1 [facility] Comment on above: Performed By: #### L 100.0100, L500.4050 ####[facility] [address] [place], [address] Chloride [Moles/Vol] 107 mmol/L Normal 98-107 [facility] Comment on above: Performed By: #### L 100.0100, L500.4050 ####[facility] [address] [place], [address] CO2 [Moles/Vol] 27.0 mmol/L Normal 21.0-32.0 [facility] Comment on above: Performed By: #### L 100.0100, L500.4050 ####[facility] [address] [place], [address] Creatinine [Mass/Vol] 0.86 mg/dL Normal 0.55-1.02 [facility] Comment on above: Result Comment: The validity of the calculated GFR GFRAA in patients over70 years has not been determined. Clinical correlation isessential. Performed By: #### L 100.0100, L500.4050 ####[facility] [address] [place], [address] EST GFR - AA 83 mL/min Normal >60 [facility] Comment on above: Result Comment: Afri can Maltese GFR Calc Performed By: #### L 100.0100, L500.4050 ####[facility] [address] [place], [address] GAP 5 Normal 5-15 [facility] Comment on above: Performed By: #### L 100.0100, L500.4050 ####[facility] [address] [place], [address] GFR/1.73 sq M.predicted among non-blacks MDRD (S/P/Bld) [Vol rate/Area] 69 mL/min/{1.73_m2} Normal >60 [facility] Comment on above: Result Comment: Non- GFR Calc Performed By: #### L 100.0100, L500.4050 ####[facility] [address] [place], [address] Globulin (S) [Mass/Vol] 3.6 g/dL Normal 2.2-4.[address] [facility] Comment on above: Performed By: #### L 100.0100, L500.4050 ####[facility] [address] [place], [address] Glucose [Mass/Vol] 111 mg/dL High 74-106 [facility] Comment on above: Result Comment: Fast ing Glucose result from 100 to 125 mg/dLsuggests IMPAIRED HOMEOSTASIS per A.D.A. criteria. Performed By: #### L 100.0100, L500.4050 ####[facility] [address] [place], [address] Potassium [Moles/Vol] 3.8 mmol/L Normal 3.5-5.1 [facility] Comment on above: Performed By: #### L 100.0100, L500.4050 ####[facility] [address] [place], [address] Sodium [Moles/Vol] 140 mmol/L Normal 136-145 [facility] Comment on above: Performed By: #### L 100.0100, L500.4050 ####[facility] [address] [place], [address] T PROT 7.6 g/dL Normal 6.4-8.2 [facility] Comment on above: Performed By: #### L 100.0100, L500.4050 ####[facility] [address] [place], [address] Urea nitrogen [Mass/Vol] 12 mg/dL Normal 7-18 [facility] Comment on above: Performed By: #### L 100.0100, L500.4050 ####[facility] [address] [place], [address] HIP, UNI W/ Pelvis 2-3 Views on 05-10-2024 HIP, UNI W/ Pelvis 2-3 Views Normal [facility] Inital Evaluation (1) - PTon 05-10-2024 Inital Evaluation (1) - PT Normal [facility] Knee 3 Viewson 05-01-2024 Knee 3 Views Normal [facility] Orthopedic Visit Reporton Orthopedic Visit Report Normal [facility] Absolute lymphocyte countOrd ered By: Manisha Navas on 12-11-2023 Lymphocytes Auto (Unsp spec) [#/Vol] 1.65 10*3/uL 0.83-4.51 [facility] Automated lymphocyte count a s percentage of total leukocytesOrdered By: Manisha Navas on 12-11-2023 Lymphocytes/100 WBC Auto (Unsp spec) 30.4 % 19-41 [facility] Basophil percentageOrdered B y: Manisha Navas on 12-11-2023 Basophils/100 WBC (Bld) 0.7 % 0-[address] [facility] Bilirubin [Mass/Vol] 1.00 mg/dL 0.20-1.00 [facility] Comment on above: For patients on eltr ombopag therapy, use of Dimension [place] TBIL is not recommended. Chloride [Moles/Vol] 105 mmol/L 98-107 [facility] Cholesterol [Mass/Vol] 186 mg/dL <200 [facility] Comment on above: <200 mg/dL Desirable 200-240 mg/dL Borderline >240 mg/dL High Risk Eosinophils/100 WBC (Bld) 3.1 % 0-5 [facility] Glucose [Mass/Vol] 106 mg/dL 74-106 [facility] Comment on above: Fasting Glucose resu lt from 100 to 125 mg/dL suggests IMPAIRED HOMEOSTASIS per A.D.A. criteria. Hemoglobin (Bld) [Mass/Vol] 12.6 g/dL 12.0-15.0 [facility] Monocytes/100 WBC (Bld) 14.0 % 0-[address] [facility] Neutrophils (Bld) [#/Vol] 2.8 10*3/uL 2.0-7.7 [facility] Neutrophils/100 WBC (Bld) 51.6 % 47-70 [facility] Potassium [Moles/Vol] 4.1 mmol/L 3.5-5.1 [facility] Protein [Mass/Vol] 7.0 g/dL 6.4-8.2 [facility] Sodium [Moles/Vol] 138 mmol/L 136-145 [facility] Triglyceride [Mass/Vol] 53 mg/dL <199 [facility] Comment on above: The drugs N-Acetylcy steine and Metamizole may falsely depress this assay.Serum Triglycerides Reference Interval Normal <150 mg/dL Borderline high 150 - 199 mg/dL High 200 - 499 mg/dL Very High > or = 500 mg/dL WBC (Bld) [#/Vol] 5.4 10*3/uL 4.4-11.0 [facility] Determination of erythrocyte mean corpuscular volume (MCV)Ordered By: Manisha Navas on 12-11-2023 MCV (RBC) [Entitic vol] 94.8 fL 81-99 [facility] Erythrocyte distribution wid th ratioOrdered By: Manisha Navas on 12-11-2023 Erythrocyte distribution width (RBC) [Ratio] 14.4 % 11.6-14.6 [facility] Erythrocyte distribution wid th standard deviationOrdered By: Manisha Navas on 12-11-2023 Erythrocyte distribution width (RBC) [Entitic vol] 49.1 fL 35.1-43.9 [facility] Hematocrit Auto (Bld) [Volum e fraction]Ordered By: Manisha Navas on 12-11-2023 Hematocrit (Bld) [Volume fraction] 38.5 % 37-47 [facility] Immature granulocytes/100 WB C Auto (Bld)Ordered By: Manisha Navas on 12-11-2023 Immature granulocytes/100 WBC (Bld) 0.200 % 0.0-0.9 [facility] Comment on above: IG% - Immature Granu locytes (promyelocytes, myelocytes and metamyelocytes) > 1% indicates that a LEFT SHIFT is Present. Laboratory - Chemistry and C hemistry - challengeOrdered By: Manisha Navas on 12-11-2023 Albumin/Globulin [Mass ratio] 1.1 {ratio} 0.9-2.4 [facility] ALP [Catalytic activity/Vol] 44 U/L 45-117 [facility] ALT [Catalytic activity/Vol] 28 U/L 13-56 [facility] Cholesterol in HDL [Mass/Vol] 58 mg/dL >40 [facility] Comment on above: The drugs N-Acetylcy steine and Metamizole may falsely depress this assay. Reference Range HDL <40 mg/dL Low HDL Cholesterol HDL >or= 60 mg/dL High HDL Cholesterol Cholesterol in LDL [Mass/Vol] 117 mg/dL 0-130 [facility] CO2 [Moles/Vol] 28.0 mmol/L 21.0-32.0 [facility] Globulin (S) [Mass/Vol] 3.3 g/dL 2.2-4.2 [facility] Urea nitrogen/Creatinine [Mass ratio] 20.4 mg/mg 10-20 [facility] Laboratory - Hematology and Cell countsOrdered By: Manisha Navas on 12-11-2023 MCH (RBC) [Entitic mass] 31.0 pg 27.0-32.0 [facility] MCHC (RBC) [Mass/Vol] 32.7 g/dL 32-36 [facility] Nucleated RBC/100 WBC (Bld) [Ratio] 0 % 0-5 [facility] Platelet mean volume (Bld) [Entitic vol] 8.8 fL 6.2-12.0 [facility] Platelets (Bld) [#/Vol] 282 10*3/uL 150-450 [facility] No Panel InformationOrdered By: Manisha Navas on 12-11-2023 Estimated GFR (MDRD) Amer 77 mL/min >60 [facility] Comment on above: GFR Calc Estimated GFR (MDRD) Non-Af Amer 63 mL/min >60 [facility] Comment on above: Non- GFR Calc Vitamin D 25-Hydroxy 52.0 ng/mL [facility] Comment on above: Vitamin D 25(OH) Sta tus Range Deficiency <20 ng/mL (50nmol/L) Insufficiency 20 - 30 ng/mL (50 - 75 nmol/L) Sufficiency 30 - 100 ng/mL (75 - 250 nmol/L) Toxicity >100 ng/mL (>250 nmol/L) VLDL Cholesterol 11 mg/dL 5-40 [facility] RBC Auto (Bld) [#/Vol]Ordere d By: Manisha Navas on 12-11-2023 RBC (Bld) [#/Vol] 4.06 10*6/uL 4.2-5.4 [facility] Serum or plasma calcium bennie urement (mass/volume)Ordered By: Manisha Navas on 12-11-2023 Calcium [Mass/Vol] 8.6 mg/dL 8.5-10.1 [facility] Serum or plasma creatinine m easurement (mass/volume)Ordered By: Manisha Navas on 12-11-2023 Creatinine [Mass/Vol] 0.93 mg/dL 0.55-1.02 [facility] Comment on above: The validity of the calculated GFR & GFRAA in patients over 70 years has not been determined. Clinical correlation is essential. Serum or plasma thyroid stim ulating hormone (TSH) measurement (units/volume)Ordered By: Manisha Navas on 12-11-2023 TSH Qn 1.37 uIU/mL 0.358-3.74 [facility] Serum or plasma urea nitroge n measurement (mass/volume)Ordered By: Manisha Navas on 12-11-2023 Urea nitrogen [Mass/Vol] 19 mg/dL 7-18 [facility] Thin prep Papanicolaou smear with manual screeningOrdered By: Manisha Navas on 12-11-2023 Thin prep Papanicolaou smear with manual screening 3.7 g/dL 3.2-5.0 [facility] Thin prep Papanicolaou smear with manual screening 18 U/L 15-37 [facility] Thin prep Papanicolaou smear with manual screening 5 5-15 [facility] Absolute lymphocyte countOrd ered By: Manisha Navas on 09-08-2023 Lymphocytes Auto (Unsp spec) [#/Vol] 1.24 10*3/uL 0.83-4.51 [facility] Basophil percentageOrdered B y: Manisha Navas on 09-08-2023 Basophils/100 WBC (Bld) 0.9 % 0-1 [facility] Bilirubin [Mass/Vol] 0.70 mg/dL 0.20-1.00 [facility] Comment on above: For patients on eltr ombopag therapy, use of Dimension [place] TBIL is not recommended. Chloride [Moles/Vol] 108 mmol/L 98-107 [facility] Eosinophils/100 WBC (Bld) 5.0 % 0-5 [facility] Glucose [Mass/Vol] 93 mg/dL 74-106 [facility] Neutrophils (Bld) [#/Vol] 2.5 10*3/uL 2.0-7.7 [facility] Neutrophils/100 WBC (Bld) 54.5 % 47-70 [facility] Potassium [Moles/Vol] 3.8 mmol/L 3.5-5.1 [facility] Protein [Mass/Vol] 7.1 g/dL 6.4-8.2 [facility] Sodium [Moles/Vol] 141 mmol/L 136-145 [facility] WBC (Bld) [#/Vol] 4.6 10*3/uL 4.4-11.0 [facility] Blood erythrocytes count (nu mber/volume)Ordered By: Manisha Navas on 09-08-2023 RBC (Bld) [#/Vol] 4.31 10*6/uL 4.2-5.4 [facility] Blood hemoglobin measurement (mass/volume)Ordered By: Manisha Navas on 09-08-2023 Hemoglobin (Bld) [Mass/Vol] 12.7 g/dL 12.0-15.0 [facility] Blood lymphocytes/100 leukoc ytesOrdered By: Manisha Navas on 09-08-2023 Lymphocytes/100 WBC (Bld) 27.1 % 19-41 [facility] Blood monocytes/100 leukocyt esOrdered By: Manisha Navas on 09-08-2023 Monocytes/100 WBC (Bld) 12.3 % 0-10 [facility] Blood platelet mean volumeOr dered By: Manisha Navas on 09-08-2023 Platelet mean volume (Bld) [Entitic vol] 9.0 fL 6.2-12.0 [facility] Determination of erythrocyte mean corpuscular volume (MCV)Ordered By: Manisha Navas on 09-08-2023 MCV (RBC) [Entitic vol] 92.1 fL 81-99 [facility] Hematocrit Auto (Bld) [Volum e fraction]Ordered By: Manisha Navas on 09-08-2023 Hematocrit (Bld) [Volume fraction] 39.7 % 37-47 [facility] Laboratory - Chemistry and C hemistry - challengeOrdered By: Manisha Navas on 09-08-2023 ALP [Catalytic activity/Vol] 55 U/L 45-117 [facility] ALT [Catalytic activity/Vol] 21 U/L 13-56 [facility] CO2 [Moles/Vol] 29.0 mmol/L 21.0-32.0 [facility] Globulin (S) [Mass/Vol] 3.4 g/dL 2.2-4.2 [facility] Urea nitrogen/Creatinine [Mass ratio] 14.2 mg/mg 10-20 [facility] Laboratory - Hematology and Cell countsOrdered By: Manisha Navas on 09-08-2023 Erythrocyte distribution width (RBC) [Entitic vol] 49.3 fL 35.1-43.9 [facility] Erythrocyte distribution width (RBC) [Ratio] 14.6 % 11.6-14.6 [facility] Immature granulocytes/100 WBC (Bld) 0.200 % 0.0-0.9 [facility] Comment on above: IG% - Immature Granu locytes (promyelocytes, myelocytes and metamyelocytes) > 1% indicates that a LEFT SHIFT is Present. MCH (RBC) [Entitic mass] 29.5 pg 27.0-32.0 [facility] Nucleated RBC/100 WBC (Bld) [Ratio] 0 % 0-5 [facility] MCHC Auto (RBC) [Mass/Vol]Or dered By: Manisha Navas on 09-08-2023 MCHC (RBC) [Mass/Vol] 32.0 g/dL 32-36 [facility] No Panel InformationOrdered By: Manisha Navas on 09-08-2023 Estimated GFR (MDRD) Amer 78 mL/min >60 [facility] Comment on above: GFR Calc Estimated GFR (MDRD) Non-Af Amer 64 mL/min >60 [facility] Comment on above: Non- GFR Calc Platelets bldOrdered By: Judie Navas on 09-08-2023 Platelets (Bld) [#/Vol] 261 10*3/uL 150-450 [facility] Serum or plasma albumin bennie urement (mass/volume)Ordered By: Manisha Navas on 09-08-2023 Albumin [Mass/Vol] 3.7 g/dL 3.2-5.0 [facility] Serum or plasma albumin/glob ulin mass ratioOrdered By: Manisha Navas on 09-08-2023 Albumin/Globulin [Mass ratio] 1.1 {ratio} 0.9-2.4 [facility] Serum or plasma calcium bennie urement (mass/volume)Ordered By: Manisha Navas on 09-08-2023 Calcium [Mass/Vol] 9.3 mg/dL 8.5-10.1 [facility] Serum or plasma creatinine m easurement (mass/volume)Ordered By: Manisha Navas on 09-08-2023 Creatinine [Mass/Vol] 0.92 mg/dL 0.55-1.02 [facility] Comment on above: The validity of the calculated GFR & GFRAA in patients over 70 years has not been determined. Clinical correlation is essential. Serum or plasma urea nitroge n measurement (mass/volume)Ordered By: Manisha Navas on 09-08-2023 Urea nitrogen [Mass/Vol] 13 mg/dL 7-18 [facility] Thin prep Papanicolaou smear with manual screeningOrdered By: Manisha Navas on 09-08-2023 Thin prep Papanicolaou smear with manual screening 17 U/L 15-37 [facility] Thin prep Papanicolaou smear with manual screening 4 5-15 [facility] Absolute lymphocyte countOrd ered By: Manisha Navas on 06-16-2023 Lymphocytes Auto (Unsp spec) [#/Vol] 1.37 10*3/uL 0.83-4.51 [facility] Basophil percentageOrdered B y: Manisha Navas on 06-16-2023 Basophils/100 WBC (Bld) 0.9 % 0-1 [facility] Bilirubin [Mass/Vol] 0.80 mg/dL 0.20-1.00 [facility] Comment on above: For patients on eltr ombopag therapy, use of Dimension [place] TBIL is not recommended. Chloride [Moles/Vol] 106 mmol/L 98-107 [facility] Eosinophils/100 WBC (Bld) 4.7 % 0-5 [facility] Glucose [Mass/Vol] 104 mg/dL 74-106 [facility] Comment on above: Fasting Glucose resu lt from 100 to 125 mg/dL suggests IMPAIRED HOMEOSTASIS per A.D.A. criteria. Neutrophils (Bld) [#/Vol] 3.0 10*3/uL 2.0-7.7 [facility] Neutrophils/100 WBC (Bld) 55.5 % 47-70 [facility] Potassium [Moles/Vol] 4.0 mmol/L 3.5-5.1 [facility] Protein [Mass/Vol] 7.3 g/dL 6.4-8.2 [facility] Sodium [Moles/Vol] 139 mmol/L 136-145 [facility] WBC (Bld) [#/Vol] 5.4 10*3/uL 4.4-11.0 [facility] Blood erythrocytes count (nu mber/volume)Ordered By: Manisha Navas on 06-16-2023 RBC (Bld) [#/Vol] 4.62 10*6/uL 4.2-5.4 [facility] Blood hemoglobin measurement (mass/volume)Ordered By: Manisha Navas on 06-16-2023 Hemoglobin (Bld) [Mass/Vol] 13.4 g/dL 12.0-15.0 [facility] Blood lymphocytes/100 leukoc ytesOrdered By: Manisha Navas on 06-16-2023 Lymphocytes/100 WBC (Bld) 25.6 % 19-41 [facility] Blood monocytes/100 leukocyt esOrdered By: Manisha Navas on 06-16-2023 Monocytes/100 WBC (Bld) 12.9 % 0-10 [facility] Blood platelet mean volumeOr dered By: Manisha Navas on 06-16-2023 Platelet mean volume (Bld) [Entitic vol] 9.1 fL 6.2-12.0 [facility] Determination of erythrocyte mean corpuscular volume (MCV)Ordered By: Manisha Navas on 06-16-2023 MCV (RBC) [Entitic vol] 92.9 fL 81-99 [facility] Hematocrit Auto (Bld) [Volum e fraction]Ordered By: Manisha Navas on 06-16-2023 Hematocrit (Bld) [Volume fraction] 42.9 % 37-47 [facility] Laboratory - Chemistry and C hemistry - challengeOrdered By: Manisha Navas on 06-16-2023 ALP [Catalytic activity/Vol] 51 U/L 45-117 [facility] ALT [Catalytic activity/Vol] 19 U/L 13-56 [facility] CO2 [Moles/Vol] 28.0 mmol/L 21.0-32.0 [facility] Globulin (S) [Mass/Vol] 3.7 g/dL 2.2-4.2 [facility] Urea nitrogen/Creatinine [Mass ratio] 15.0 mg/mg 10-20 [facility] Laboratory - Hematology and Cell countsOrdered By: Manisha Navas on 06-16-2023 Erythrocyte distribution width (RBC) [Entitic vol] 43.7 fL 35.1-43.9 [facility] Erythrocyte distribution width (RBC) [Ratio] 12.8 % 11.6-14.6 [facility] Immature granulocytes/100 WBC (Bld) 0.400 % 0.0-0.9 [facility] Comment on above: IG% - Immature Granu locytes (promyelocytes, myelocytes and metamyelocytes) > 1% indicates that a LEFT SHIFT is Present. MCH (RBC) [Entitic mass] 29.0 pg 27.0-32.0 [facility] Nucleated RBC/100 WBC (Bld) [Ratio] 0 % 0-5 [facility] MCHC Auto (RBC) [Mass/Vol]Or dered By: Manisha Navas on 06-16-2023 MCHC (RBC) [Mass/Vol] 31.2 g/dL 32-36 [facility] No Panel InformationOrdered By: Manisha Navas on 06-16-2023 Estimated GFR (MDRD) Amer 76 mL/min >60 [facility] Comment on above: GFR Calc Estimated GFR (MDRD) Non-Af Amer 63 mL/min >60 [facility] Comment on above: Non- GFR Calc Platelets bldOrdered By: Judie Navas on 06-16-2023 Platelets (Bld) [#/Vol] 271 10*3/uL 150-450 [facility] Serum or plasma albumin bennie urement (mass/volume)Ordered By: Manisha Navas on 06-16-2023 Albumin [Mass/Vol] 3.6 g/dL 3.2-5.0 [facility] Serum or plasma albumin/glob ulin mass ratioOrdered By: Manisha Navas on 06-16-2023 Albumin/Globulin [Mass ratio] 1.0 {ratio} 0.9-2.4 [facility] Serum or plasma calcium bennie urement (mass/volume)Ordered By: Manisha Navas on 06-16-2023 Calcium [Mass/Vol] 9.5 mg/dL 8.5-10.1 [facility] Serum or plasma creatinine m easurement (mass/volume)Ordered By: Manisha Navas on 06-16-2023 Creatinine [Mass/Vol] 0.94 mg/dL 0.55-1.02 [facility] Comment on above: The validity of the calculated GFR & GFRAA in patients over 70 years has not been determined. Clinical correlation is essential. Serum or plasma urea nitroge n measurement (mass/volume)Ordered By: Manisha Navas on 06-16-2023 Urea nitrogen [Mass/Vol] 14 mg/dL 7-18 [facility] Thin prep Papanicolaou smear with manual screeningOrdered By: Manishating Navas on 06-16-2023 Thin prep Papanicolaou smear with manual screening 11 U/L 15-37 [facility] Thin prep Papanicolaou smear with manual screening 5 5-15 [facility] Absolute lymphocyte countOrd ered By: Ramu Romero on 06-03-2023 Lymphocytes Auto (Unsp spec) [#/Vol] 1.13 10*3/uL 0.83-4.51 [facility] Basophil percentageOrdered B y: Ramu Romero on 06-03-2023 Basophils/100 WBC (Bld) 0.2 % 0-1 [facility] Chloride [Moles/Vol] 105 mmol/L 98-107 [facility] Eosinophils/100 WBC (Bld) 0.2 % 0-5 [facility] Glucose [Mass/Vol] 113 mg/dL 74-106 [facility] Comment on above: Fasting Glucose resu lt from 100 to 125 mg/dL suggests IMPAIRED HOMEOSTASIS per A.D.A. criteria. Neutrophils (Bld) [#/Vol] 6.8 10*3/uL 2.0-7.7 [facility] Neutrophils/100 WBC (Bld) 74.8 % 47-70 [facility] Potassium [Moles/Vol] 3.8 mmol/L 3.5-5.1 [facility] Sodium [Moles/Vol] 136 mmol/L 136-145 [facility] WBC (Bld) [#/Vol] 9.0 10*3/uL 4.4-11.0 [facility] Blood erythrocytes count (nu mber/volume)Ordered By: Ramu Romero on 06-03-2023 RBC (Bld) [#/Vol] 4.53 10*6/uL 4.2-5.4 [facility] Blood hemoglobin measurement (mass/volume)Ordered By: Ramu Romero on 06-03-2023 Hemoglobin (Bld) [Mass/Vol] 13.7 g/dL 12.0-15.0 [facility] Blood lymphocytes/100 leukoc ytesOrdered By: Ramu Romero on 06-03-2023 Lymphocytes/100 WBC (Bld) 12.5 % 19-41 [facility] Blood monocytes/100 leukocyt esOrdered By: Ramu Romero on 06-03-2023 Monocytes/100 WBC (Bld) 12.1 % 0-10 [facility] Blood platelet mean volumeOr dered By: Ramu Romero on 06-03-2023 Platelet mean volume (Bld) [Entitic vol] 9.2 fL 6.2-12.0 [facility] Determination of erythrocyte mean corpuscular volume (MCV)Ordered By: Ramu Romero on 06-03-2023 MCV (RBC) [Entitic vol] 90.7 fL 81-99 [facility] Erythrocyte sedimentation ra teOrdered By: Ramu Romero on 06-03-2023 ESR (Bld) [Velocity] 15 mm/h 0-30 [facility] Hematocrit Auto (Bld) [Volum e fraction]Ordered By: Ramu Romero on 06-03-2023 Hematocrit (Bld) [Volume fraction] 41.1 % 37-47 [facility] Laboratory - Chemistry and C hemistry - challengeOrdered By: Ramu Romero on 06-03-2023 CO2 [Moles/Vol] 29.0 mmol/L 21.0-32.0 [facility] Urea nitrogen/Creatinine [Mass ratio] 14.0 mg/mg 10-20 [facility] Laboratory - Hematology and Cell countsOrdered By: Ramu Romero on 06-03-2023 Erythrocyte distribution width (RBC) [Entitic vol] 42.4 fL 35.1-43.9 [facility] Erythrocyte distribution width (RBC) [Ratio] 12.8 % 11.6-14.6 [facility] Immature granulocytes/100 WBC (Bld) 0.200 % 0.0-0.9 [facility] Comment on above: IG% - Immature Granu locytes (promyelocytes, myelocytes and metamyelocytes) > 1% indicates that a LEFT SHIFT is Present. MCH (RBC) [Entitic mass] 30.2 pg 27.0-32.0 [facility] Nucleated RBC/100 WBC (Bld) [Ratio] 0 % 0-5 [facility] MCHC Auto (RBC) [Mass/Vol]Or dered By: Ramu Romero on 06-03-2023 MCHC (RBC) [Mass/Vol] 33.3 g/dL 32-36 [facility] No Panel InformationOrdered By: Ramu Romero on 06-03-2023 Estimated Creatinine Clearance Calc 74.40 ml/min [facility] Estimated GFR (MDRD) Amer 77 mL/min >60 [facility] Comment on above: GFR Calc Estimated GFR (MDRD) Non-Af Amer 63 mL/min >60 [facility] Comment on above: Non- GFR Calc Platelets bldOrdered By: Brian Romero on 06-03-2023 Platelets (Bld) [#/Vol] 223 10*3/uL 150-450 [facility] Serum or plasma C reactive p rotein measurement (mass/volume)Ordered By: Ramu Romero on 06-03-2023 CRP [Mass/Vol] 17.00 mg/L 0.0-3.0 [facility] Comment on above: C-Reactive Protein ( CRP) provides useful information for thediagnosis, therapy and monitoring of inflammatory processesand associated diseases. For the evaluation of Relative Riskfor Cardiovascular Disease, a High Sensitivity CRP (HSCRP)should be ordered. Serum or plasma calcium bennie urement (mass/volume)Ordered By: Ramu Romero on 06-03-2023 Calcium [Mass/Vol] 8.7 mg/dL 8.5-10.1 [facility] Serum or plasma creatinine m easurement (mass/volume)Ordered By: Ramu Romero on 06-03-2023 Creatinine [Mass/Vol] 0.93 mg/dL 0.55-1.02 [facility] Comment on above: The validity of the calculated GFR & GFRAA in patients over 70 years has not been determined. Clinical correlation is essential. Serum or plasma urea nitroge n measurement (mass/volume)Ordered By: Ramu Romero on 06-03-2023 Urea nitrogen [Mass/Vol] 13 mg/dL 7-18 [facility] Serum or plasma uric acid me asurement (mass/volume)Ordered By: Ramu Romero on 06-03-2023 Urate [Mass/Vol] 3.7 mg/dL 2.6-6.0 [facility] Comment on above: The drugs N-Acetylcy steine and Metamizole may falsely depress this assay. Thin prep Papanicolaou smear with manual screeningOrdered By: Ramu Romero on 06-03-2023 Thin prep Papanicolaou smear with manual screening 2 5-15 [facility] Absolute lymphocyte countOrd ered By: Manisha Navas on 03-22-2023 Lymphocytes Auto (Unsp spec) [#/Vol] 1.53 10*3/uL 0.83-4.51 [facility] Basophil percentageOrdered B y: Manisha Navas on 03-22-2023 Basophils/100 WBC (Bld) 1.0 % 0-1 [facility] Bilirubin [Mass/Vol] 0.90 mg/dL 0.20-1.00 [facility] Comment on above: For patients on eltr ombopag therapy, use of Dimension [place] TBIL is not recommended. Chloride [Moles/Vol] 106 mmol/L 98-107 [facility] Eosinophils/100 WBC (Bld) 3.8 % 0-5 [facility] Glucose [Mass/Vol] 92 mg/dL 74-106 [facility] Neutrophils (Bld) [#/Vol] 2.4 10*3/uL 2.0-7.7 [facility] Neutrophils/100 WBC (Bld) 50.4 % 47-70 [facility] Potassium [Moles/Vol] 4.1 mmol/L 3.5-5.1 [facility] Protein [Mass/Vol] 6.9 g/dL 6.4-8.2 [facility] Sodium [Moles/Vol] 141 mmol/L 136-145 [facility] WBC (Bld) [#/Vol] 4.8 10*3/uL 4.4-11.0 [facility] Blood erythrocytes count (nu mber/volume)Ordered By: Manisha Navas on 03-22-2023 RBC (Bld) [#/Vol] 4.34 10*6/uL 4.2-5.4 [facility] Blood hemoglobin measurement (mass/volume)Ordered By: Manisha Navas on 03-22-2023 Hemoglobin (Bld) [Mass/Vol] 13.1 g/dL 12.0-15.0 [facility] Blood lymphocytes/100 leukoc ytesOrdered By: Manisha Navas on 03-22-2023 Lymphocytes/100 WBC (Bld) 31.9 % 19-41 [facility] Blood monocytes/100 leukocyt esOrdered By: Manisha Navas on 03-22-2023 Monocytes/100 WBC (Bld) 12.7 % 0-10 [facility] Blood platelet mean volumeOr dered By: Manisha Navas on 03-22-2023 Platelet mean volume (Bld) [Entitic vol] 9.5 fL 6.2-12.0 [facility] Determination of erythrocyte mean corpuscular volume (MCV)Ordered By: Manisha Navas on 03-22-2023 MCV (RBC) [Entitic vol] 90.8 fL 81-99 [facility] Hematocrit Auto (Bld) [Volum e fraction]Ordered By: Manisha Navas on 03-22-2023 Hematocrit (Bld) [Volume fraction] 39.4 % 37-47 [facility] Laboratory - Chemistry and C hemistry - challengeOrdered By: Manisha Navas on 03-22-2023 ALP [Catalytic activity/Vol] 51 U/L 45-117 [facility] ALT [Catalytic activity/Vol] 19 U/L 13-56 [facility] CO2 [Moles/Vol] 29.0 mmol/L 21.0-32.0 [facility] Globulin (S) [Mass/Vol] 3.2 g/dL 2.2-4.2 [facility] Urea nitrogen/Creatinine [Mass ratio] 15.0 mg/mg 10-20 [facility] Laboratory - Hematology and Cell countsOrdered By: Manisha Navas on 03-22-2023 Erythrocyte distribution width (RBC) [Entitic vol] 42.5 fL 35.1-43.9 [facility] Erythrocyte distribution width (RBC) [Ratio] 12.9 % 11.6-14.6 [facility] Immature granulocytes/100 WBC (Bld) 0.200 % 0.0-0.9 [facility] Comment on above: IG% - Immature Granu locytes (promyelocytes, myelocytes and metamyelocytes) > 1% indicates that a LEFT SHIFT is Present. MCH (RBC) [Entitic mass] 30.2 pg 27.0-32.0 [facility] Nucleated RBC/100 WBC (Bld) [Ratio] 0 % 0-5 [facility] MCHC Auto (RBC) [Mass/Vol]Or dered By: Manisha Navas on 03-22-2023 MCHC (RBC) [Mass/Vol] 33.2 g/dL 32-36 [facility] No Panel InformationOrdered By: Manisha Navas on 03-22-2023 Estimated GFR (MDRD) Amer 76 mL/min >60 [facility] Comment on above: GFR Calc Estimated GFR (MDRD) Non-Af Amer 63 mL/min >60 [facility] Comment on above: Non- GFR Calc Platelets bldOrdered By: Judie Navas on 03-22-2023 Platelets (Bld) [#/Vol] 217 10*3/uL 150-450 [facility] Serum or plasma albumin bennie urement (mass/volume)Ordered By: Manisha Navas on 03-22-2023 Albumin [Mass/Vol] 3.7 g/dL 3.2-5.0 [facility] Serum or plasma albumin/glob ulin mass ratioOrdered By: Manisha Navas on 03-22-2023 Albumin/Globulin [Mass ratio] 1.2 {ratio} 0.9-2.4 [facility] Serum or plasma calcium bennie urement (mass/volume)Ordered By: Manisha Navas on 03-22-2023 Calcium [Mass/Vol] 8.8 mg/dL 8.5-10.1 [facility] Serum or plasma creatinine m easurement (mass/volume)Ordered By: Manisha Navas on 03-22-2023 Creatinine [Mass/Vol] 0.94 mg/dL 0.55-1.02 [facility] Comment on above: The validity of the calculated GFR & GFRAA in patients over 70 years has not been determined. Clinical correlation is essential. Serum or plasma urea nitroge n measurement (mass/volume)Ordered By: Manisha Navas on 03-22-2023 Urea nitrogen [Mass/Vol] 14 mg/dL 7-18 [facility] Thin prep Papanicolaou smear with manual screeningOrdered By: Manisha Navas on 03-22-2023 Thin prep Papanicolaou smear with manual screening 17 U/L 15-37 [facility] Thin prep Papanicolaou smear with manual screening 6 5-15 [facility] Absolute lymphocyte countOrd ered By: Dr. Navas on 12-28-2022 Lymphocytes Auto (Unsp spec) [#/Vol] 1.59 10*3/uL 0.83-4.51 [facility] Basophil percentageOrdered B y: Dr. Navas on 12-28-2022 Basophils/100 WBC (Bld) 0.9 % 0-1 [facility] Bilirubin [Mass/Vol] 0.80 mg/dL 0.20-1.00 [facility] Comment on above: For patients on eltr ombopag therapy, use of Dimension [place] TBIL is not recommended. Chloride [Moles/Vol] 106 mmol/L 98-107 [facility] Eosinophils/100 WBC (Bld) 1.2 % 0-5 [facility] Glucose [Mass/Vol] 100 mg/dL 74-106 [facility] Comment on above: Fasting Glucose resu lt from 100 to 125 mg/dL suggests IMPAIRED HOMEOSTASIS per A.D.A. criteria. Neutrophils (Bld) [#/Vol] 3.3 10*3/uL 2.0-7.7 [facility] Neutrophils/100 WBC (Bld) 58.8 % 47-70 [facility] Potassium [Moles/Vol] 4.3 mmol/L 3.5-5.1 [facility] Protein [Mass/Vol] 7.3 g/dL 6.4-8.2 [facility] Sodium [Moles/Vol] 136 mmol/L 136-145 [facility] WBC (Bld) [#/Vol] 5.7 10*3/uL 4.4-11.0 [facility] Blood erythrocytes count (nu mber/volume)Ordered By: Dr. Navas on 12-28-2022 RBC (Bld) [#/Vol] 4.57 10*6/uL 4.2-5.4 [facility] Blood hemoglobin measurement (mass/volume)Ordered By: Dr. Navas on 12-28-2022 Hemoglobin (Bld) [Mass/Vol] 13.6 g/dL 12.0-15.0 [facility] Blood lymphocytes/100 leukoc ytesOrdered By: Dr. Navas on 12-28-2022 Lymphocytes/100 WBC (Bld) 28.0 % 19-41 [facility] Blood monocytes/100 leukocyt esOrdered By: Dr. Navas on 12-28-2022 Monocytes/100 WBC (Bld) 10.9 % 0-10 [facility] Blood platelet mean volumeOr dered By: Dr. Navas on 12-28-2022 Platelet mean volume (Bld) [Entitic vol] 9.3 fL 6.2-12.0 [facility] Determination of erythrocyte mean corpuscular volume (MCV)Ordered By: Dr. Navas on 12-28-2022 MCV (RBC) [Entitic vol] 92.3 fL 81-99 [facility] Hematocrit Auto (Bld) [Volum e fraction]Ordered By: Dr. Navas on 12-28-2022 Hematocrit (Bld) [Volume fraction] 42.2 % 37-47 [facility] Laboratory - Chemistry and C hemistry - challengeOrdered By: Dr. Navas on 12-28-2022 ALP [Catalytic activity/Vol] 56 U/L 45-117 [facility] ALT [Catalytic activity/Vol] 21 U/L 13-56 [facility] CO2 [Moles/Vol] 28.0 mmol/L 21.0-32.0 [facility] Globulin (S) [Mass/Vol] 3.7 g/dL 2.2-4.2 [facility] Urea nitrogen/Creatinine [Mass ratio] 18.2 mg/mg 10-20 [facility] Laboratory - Hematology and Cell countsOrdered By: Dr. Navas on 12-28-2022 Erythrocyte distribution width (RBC) [Entitic vol] 44.2 fL 35.1-43.9 [facility] Erythrocyte distribution width (RBC) [Ratio] 13.0 % 11.6-14.6 [facility] Immature granulocytes/100 WBC (Bld) 0.200 % 0.0-0.9 [facility] Comment on above: IG% - Immature Granu locytes (promyelocytes, myelocytes and metamyelocytes) > 1% indicates that a LEFT SHIFT is Present. MCH (RBC) [Entitic mass] 29.8 pg 27.0-32.0 [facility] Nucleated RBC/100 WBC (Bld) [Ratio] 0 % 0-5 [facility] MCHC Auto (RBC) [Mass/Vol]Or dered By: Dr. Navas on 12-28-2022 MCHC (RBC) [Mass/Vol] 32.2 g/dL 32-36 [facility] No Panel InformationOrdered By: Dr. Navas on 12-28-2022 Estimated GFR (MDRD) Amer 82 mL/min >60 [facility] Comment on above: GFR Calc Estimated GFR (MDRD) Non-Af Amer 68 mL/min >60 [facility] Comment on above: Non- GFR Calc Platelets bldOrdered By: Dr. Navas on 12-28-2022 Platelets (Bld) [#/Vol] 248 10*3/uL 150-450 [facility] Serum or plasma albumin bennie urement (mass/volume)Ordered By: Dr. Navas on 12-28-2022 Albumin [Mass/Vol] 3.6 g/dL 3.2-5.0 [facility] Serum or plasma albumin/glob ulin mass ratioOrdered By: Dr. Navas on 12-28-2022 Albumin/Globulin [Mass ratio] 1.0 {ratio} 0.9-2.4 [facility] Serum or plasma calcium bennie urement (mass/volume)Ordered By: Dr. Navsa on 12-28-2022 Calcium [Mass/Vol] 8.9 mg/dL 8.5-10.1 [facility] Serum or plasma creatinine m easurement (mass/volume)Ordered By: Dr. Navas on 12-28-2022 Creatinine [Mass/Vol] 0.88 mg/dL 0.55-1.02 [facility] Comment on above: The validity of the calculated GFR & GFRAA in patients over 70 years has not been determined. Clinical correlation is essential. Serum or plasma urea nitroge n measurement (mass/volume)Ordered By: Dr. Navas on 12-28-2022 Urea nitrogen [Mass/Vol] 16 mg/dL 7-18 [facility] Thin prep Papanicolaou smear with manual screeningOrdered By: Dr. Navas on 12-28-2022 Thin prep Papanicolaou smear with manual screening 14 U/L 15-37 [facility] Thin prep Papanicolaou smear with manual screening 2 5-15 [facility] Absolute lymphocyte countOrd ered By: Dr. Navas on 09-29-2022 Lymphocytes Auto (Unsp spec) [#/Vol] 1.76 10*3/uL 0.83-4.51 [facility] Basophil percentageOrdered B y: Dr. Navas on 09-29-2022 Basophils/100 WBC (Bld) 0.9 % 0-1 [facility] Bilirubin [Mass/Vol] 0.60 mg/dL 0.20-1.00 [facility] Comment on above: For patients on eltr ombopag therapy, use of Dimension [place] TBIL is not recommended. Chloride [Moles/Vol] 105 mmol/L 98-107 [facility] Eosinophils/100 WBC (Bld) 1.7 % 0-5 [facility] Glucose [Mass/Vol] 95 mg/dL 74-106 [facility] Neutrophils (Bld) [#/Vol] 2.8 10*3/uL 2.0-7.7 [facility] Neutrophils/100 WBC (Bld) 51.4 % 47-70 [facility] Potassium [Moles/Vol] 4.1 mmol/L 3.5-5.1 [facility] Protein [Mass/Vol] 7.4 g/dL 6.4-8.2 [facility] Sodium [Moles/Vol] 141 mmol/L 136-145 [facility] WBC (Bld) [#/Vol] 5.4 10*3/uL 4.4-11.0 [facility] Blood erythrocytes count (nu mber/volume)Ordered By: Dr. Navas on 09-29-2022 RBC (Bld) [#/Vol] 4.86 10*6/uL 4.2-5.4 [facility] Blood hemoglobin measurement (mass/volume)Ordered By: Dr. Navas on 09-29-2022 Hemoglobin (Bld) [Mass/Vol] 13.8 g/dL 12.0-15.0 [facility] Blood lymphocytes/100 leukoc ytesOrdered By: Dr. Navas on 09-29-2022 Lymphocytes/100 WBC (Bld) 32.9 % 19-41 [facility] Blood monocytes/100 leukocyt esOrdered By: Dr. Navas on 09-29-2022 Monocytes/100 WBC (Bld) 12.9 % 0-10 [facility] Blood platelet mean volumeOr dered By: Dr. Navas on 09-29-2022 Platelet mean volume (Bld) [Entitic vol] 9.4 fL 6.2-12.0 [facility] Determination of erythrocyte mean corpuscular volume (MCV)Ordered By: Dr. Navas on 09-29-2022 MCV (RBC) [Entitic vol] 89.9 fL 81-99 [facility] Hematocrit Auto (Bld) [Volum e fraction]Ordered By: Dr. Navas on 09-29-2022 Hematocrit (Bld) [Volume fraction] 43.7 % 37-47 [facility] Laboratory - Chemistry and C hemistry - challengeOrdered By: Dr. Navas on 09-29-2022 ALP [Catalytic activity/Vol] 62 U/L 45-117 [facility] ALT [Catalytic activity/Vol] 19 U/L 13-56 [facility] CO2 [Moles/Vol] 29.0 mmol/L 21.0-32.0 [facility] Globulin (S) [Mass/Vol] 3.7 g/dL 2.2-4.2 [facility] Urea nitrogen/Creatinine [Mass ratio] 15.7 mg/mg 10-20 [facility] Laboratory - Hematology and Cell countsOrdered By: Dr. Navas on 09-29-2022 Erythrocyte distribution width (RBC) [Entitic vol] 43.8 fL 35.1-43.9 [facility] Erythrocyte distribution width (RBC) [Ratio] 13.3 % 11.6-14.6 [facility] Immature granulocytes/100 WBC (Bld) 0.200 % 0.0-0.9 [facility] Comment on above: IG% - Immature Granu locytes (promyelocytes, myelocytes and metamyelocytes) > 1% indicates that a LEFT SHIFT is Present. MCH (RBC) [Entitic mass] 28.4 pg 27.0-32.0 [facility] Nucleated RBC/100 WBC (Bld) [Ratio] 0 % 0-5 [facility] MCHC Auto (RBC) [Mass/Vol]Or dered By: Dr. Navas on 09-29-2022 MCHC (RBC) [Mass/Vol] 31.6 g/dL 32-36 [facility] No Panel InformationOrdered By: Dr. Navas on 09-29-2022 Estimated GFR (MDRD) Amer 69 mL/min >60 [facility] Comment on above: GFR Calc Estimated GFR (MDRD) Non-Af Amer 57 mL/min >60 [facility] Comment on above: Non- GFR Calc Platelets bldOrdered By: Dr. Navas on 09-29-2022 Platelets (Bld) [#/Vol] 255 10*3/uL 150-450 [facility] Serum or plasma albumin bennie urement (mass/volume)Ordered By: Dr. Navas on 09-29-2022 Albumin [Mass/Vol] 3.7 g/dL 3.2-5.0 [facility] Serum or plasma albumin/glob ulin mass ratioOrdered By: Dr. Navas on 09-29-2022 Albumin/Globulin [Mass ratio] 1.0 {ratio} 0.9-2.4 [facility] Serum or plasma calcium bennie urement (mass/volume)Ordered By: Dr. Navas on 09-29-2022 Calcium [Mass/Vol] 9.4 mg/dL 8.5-10.1 [facility] Serum or plasma creatinine m easurement (mass/volume)Ordered By: Dr. Navas on 09-29-2022 Creatinine [Mass/Vol] 1.02 mg/dL 0.55-1.02 [facility] Comment on above: The validity of the calculated GFR & GFRAA in patients over 70 years has not been determined. Clinical correlation is essential. Serum or plasma urea nitroge n measurement (mass/volume)Ordered By: Dr. Navas on 09-29-2022 Urea nitrogen [Mass/Vol] 16 mg/dL 7-18 [facility] Thin prep Papanicolaou smear with manual screeningOrdered By: Dr. Navas on 09-29-2022 Thin prep Papanicolaou smear with manual screening 16 U/L 15-37 [facility] Thin prep Papanicolaou smear with manual screening 7 5-15 [facility] Absolute lymphocyte countOrd ered By: Dr. Navas on 07-06-2022 Lymphocytes Auto (Unsp spec) [#/Vol] 1.60 10*3/uL 0.83-4.51 [facility] Basophil percentageOrdered B y: Dr. Navas on 07-06-2022 Basophils/100 WBC (Bld) 1.0 % 0-1 [facility] Bilirubin [Mass/Vol] 0.70 mg/dL 0.20-1.00 [facility] Comment on above: For patients on eltr ombopag therapy, use of Dimension [place] TBIL is not recommended. Chloride [Moles/Vol] 107 mmol/L 98-107 [facility] Eosinophils/100 WBC (Bld) 7.8 % 0-5 [facility] Glucose [Mass/Vol] 101 mg/dL 74-106 [facility] Comment on above: Fasting Glucose resu lt from 100 to 125 mg/dL suggests IMPAIRED HOMEOSTASIS per A.D.A. criteria. Neutrophils (Bld) [#/Vol] 2.3 10*3/uL 2.0-7.7 [facility] Neutrophils/100 WBC (Bld) 48.0 % 47-70 [facility] Potassium [Moles/Vol] 3.8 mmol/L 3.5-5.1 [facility] Protein [Mass/Vol] 7.6 g/dL 6.4-8.2 [facility] Sodium [Moles/Vol] 141 mmol/L 136-145 [facility] WBC (Bld) [#/Vol] 4.9 10*3/uL 4.4-11.0 [facility] Blood erythrocytes count (nu mber/volume)Ordered By: Dr. Navas on 07-06-2022 RBC (Bld) [#/Vol] 4.47 10*6/uL 4.2-5.4 [facility] Blood hemoglobin measurement (mass/volume)Ordered By: Dr. Navas on 07-06-2022 Hemoglobin (Bld) [Mass/Vol] 13.9 g/dL 12.0-15.0 [facility] Blood lymphocytes/100 leukoc ytesOrdered By: Dr. Navas on 07-06-2022 Lymphocytes/100 WBC (Bld) 32.8 % 19-41 [facility] Blood monocytes/100 leukocyt esOrdered By: Dr. Navas on 07-06-2022 Monocytes/100 WBC (Bld) 10.2 % 0-[address] [facility] Blood platelet mean volumeOr dered By: Dr. Navas on 07-06-2022 Platelet mean volume (Bld) [Entitic vol] 9.2 fL 6.2-12.0 [facility] Determination of erythrocyte mean corpuscular volume (MCV)Ordered By: Dr. Navas on 07-06-2022 MCV (RBC) [Entitic vol] 91.7 fL 81-99 [facility] Hematocrit Auto (Bld) [Volum e fraction]Ordered By: Dr. Navas on 07-06-2022 Hematocrit (Bld) [Volume fraction] 41.0 % 37-47 [facility] Laboratory - Chemistry and C hemistry - challengeOrdered By: Dr. Navas on 07-06-2022 ALP [Catalytic activity/Vol] 53 U/L 45-117 [facility] ALT [Catalytic activity/Vol] 18 U/L 13-56 [facility] CO2 [Moles/Vol] 29.0 mmol/L 21.0-32.0 [facility] Globulin (S) [Mass/Vol] 3.9 g/dL 2.2-4.2 [facility] Urea nitrogen/Creatinine [Mass ratio] 13.6 mg/mg 10-20 [facility] Laboratory - Hematology and Cell countsOrdered By: Dr. Navas on 07-06-2022 Erythrocyte distribution width (RBC) [Entitic vol] 44.1 fL 35.1-43.9 [facility] Erythrocyte distribution width (RBC) [Ratio] 13.0 % 11.6-14.6 [facility] [facility] Immature granulocytes/100 WBC (Bld) 0.200 % 0.0-0.9 [facility] Comment on above: IG% - Immature Granu locytes (promyelocytes, myelocytes and metamyelocytes) > 1% indicates that a LEFT SHIFT is Present. MCH (RBC) [Entitic mass] 31.1 pg 27.0-32.0 [facility] Nucleated RBC/100 WBC (Bld) [Ratio] 0 % 0-5 [facility] MCHC Auto (RBC) [Mass/Vol]Or dered By: Dr. Navas on 07-06-2022 MCHC (RBC) [Mass/Vol] 33.9 g/dL 32-36 [facility] No Panel InformationOrdered By: Dr. Navas on 07-06-2022 Estimated GFR (MDRD) Amer 82 mL/min >60 [facility] Comment on above: GFR Calc Estimated GFR (MDRD) Non-Af Amer 68 mL/min >60 [facility] Comment on above: Non- GFR Calc Platelets bldOrdered By: Dr. Navas on 07-06-2022 Platelets (Bld) [#/Vol] 267 10*3/uL 150-450 [facility] Serum or plasma albumin bennie urement (mass/volume)Ordered By: Dr. Navas on 07-06-2022 Albumin [Mass/Vol] 3.7 g/dL 3.2-5.0 [facility] Serum or plasma albumin/glob ulin mass ratioOrdered By: Dr. Navas on 07-06-2022 Albumin/Globulin [Mass ratio] 0.9 {ratio} 0.9-2.4 [facility] Serum or plasma calcium bennie urement (mass/volume)Ordered By: Dr. Navas on 07-06-2022 Calcium [Mass/Vol] 9.0 mg/dL 8.5-10.1 [facility] Serum or plasma creatinine m easurement (mass/volume)Ordered By: Dr. Navas on 07-06-2022 Creatinine [Mass/Vol] 0.88 mg/dL 0.55-1.02 [facility] Comment on above: The validity of the calculated GFR & GFRAA in patients over 70 years has not been determined. Clinical correlation is essential. Serum or plasma urea nitroge n measurement (mass/volume)Ordered By: Dr. Navas on 07-06-2022 Urea nitrogen [Mass/Vol] 12 mg/dL 7-18 [facility] Thin prep Papanicolaou smear with manual screeningOrdered By: Dr. aNvas on 07-06-2022 Thin prep Papanicolaou smear with manual screening 14 U/L 15-37 [facility] Thin prep Papanicolaou smear with manual screening 5 5-15 [facility] Absolute lymphocyte counton 04-07-2022 Lymphocytes Auto (Unsp spec) [#/Vol] 1.52 10*3/uL 0.83-4.51 [facility] Work Phone: Basophil percentageon 2021 Basophils/100 WBC (Bld) 0.8 % 0-1 [facility] Work Phone: Bilirubin [Mass/Vol] 0.70 mg/dL 0.20-1.00 [facility] Work Phone: Comment on above: For patients on eltr ombopag therapy, use of Dimension [place] [facility] TBIL is not recommended. Chloride [Moles/Vol] 105 mmol/L 98-107 [facility] Work Phone: Eosinophils/100 WBC (Bld) 1.0 % 0-5 [facility] Work Phone: Glucose [Mass/Vol] 100 mg/dL 74-106 [facility] Work Phone: Comment on above: Fasting Glucose resu lt from 100 to 125 mg/dL suggests IMPAIRED HOMEOSTASIS per A.D.A. criteria. Neutrophils (Bld) [#/Vol] 3.1 10*3/uL 2.0-7.7 [facility] Work Phone: Neutrophils/100 WBC (Bld) 59.1 % 47-70 [facility] Work Phone: Potassium [Moles/Vol] 3.6 mmol/L 3.5-5.1 [facility] Work Phone: Protein [Mass/Vol] 6.9 g/dL 6.4-8.2 [facility] Work Phone: Sodium [Moles/Vol] 140 mmol/L 136-145 [facility] Work Phone: WBC (Bld) [#/Vol] 5.2 10*3/uL 4.4-11.0 [facility] Work Phone: Blood erythrocytes count (nu mber/volume)on 04-07-2022 RBC (Bld) [#/Vol] 4.00 10*6/uL 4.2-5.4 [facility] Work Phone: Blood hemoglobin measurement (mass/volume)on 04-07-2022 Hemoglobin (Bld) [Mass/Vol] 12.4 g/dL 12.0-15.0 [facility] Work Phone: Blood lymphocytes/100 leukoc yteson 04-07-2022 Lymphocytes/100 WBC (Bld) 29.1 % 19-41 [facility] Work Phone: Blood monocytes/100 leukocyt eson 04-07-2022 Monocytes/100 WBC (Bld) 9.8 % 0-10 [facility] Work Phone: Blood platelet mean volumeon 04-07-2022 Platelet mean volume (Bld) [Entitic vol] 8.8 fL 6.2-12.0 [facility] Work Phone: Determination of erythrocyte mean corpuscular volume (MCV)on 04-07-2022 MCV (RBC) [Entitic vol] 92.8 fL 81-99 [facility] Work Phone: Hematocrit Auto (Bld) [Volum e fraction]on 04-07-2022 Hematocrit (Bld) [Volume fraction] 37.1 % 37-47 [facility] Work Phone: Laboratory - Chemistry and C hemistry - challengeon 04-07-2022 ALP [Catalytic activity/Vol] 49 U/L 45-117 [facility] Work Phone: ALT [Catalytic activity/Vol] 25 U/L 13-56 [facility] Work Phone: CO2 [Moles/Vol] 29.0 mmol/L 21.0-32.0 [facility] Work Phone: Globulin (S) [Mass/Vol] 3.4 g/dL 2.2-4.2 [facility] Work Phone: Urea nitrogen/Creatinine [Mass ratio] 20.8 mg/mg 10-20 [facility] Work Phone: Laboratory - Hematology and Cell countson 04-07-2022 Erythrocyte distribution width (RBC) [Entitic vol] 43.0 fL 35.1-43.9 [facility] Work Phone: Erythrocyte distribution width (RBC) [Ratio] 12.6 % 11.6-14.6 [facility] Work Phone: Immature granulocytes/100 WBC (Bld) 0.200 % 0.0-0.9 [facility] Work Phone: Comment on above: IG% - Immature Granu locytes (promyelocytes, myelocytes and metamyelocytes) > 1% indicates that a LEFT SHIFT is Present. MCH (RBC) [Entitic mass] 31.0 pg 27.0-32.0 [facility] Work Phone: Nucleated RBC/100 WBC (Bld) [Ratio] 0 % 0-5 [facility] Work Phone: MCHC Auto (RBC) [Mass/Vol]on 04-07-2022 MCHC (RBC) [Mass/Vol] 33.4 g/dL 32-36 [facility] Work Phone: No Panel Informationon 04-07 Estimated GFR (MDRD) Amer 103 mL/min >60 [facility] Work Phone: Comment on above: GFR Calc Estimated GFR (MDRD) Non-Af Amer 85 mL/min >60 [facility] Work Phone: Comment on above: Non- GFR Calc Platelets bldon 04-07-2022 Platelets (Bld) [#/Vol] 272 10*3/uL 150-450 [facility] Work Phone: Serum or plasma albumin bennie urement (mass/volume)on 04-07-2022 Albumin [Mass/Vol] 3.5 g/dL 3.2-5.0 [facility] Work Phone: Serum or plasma albumin/glob ulin mass ratioon 04-07-2022 Albumin/Globulin [Mass ratio] 1.0 {ratio} 0.9-2.4 [facility] Work Phone: Serum or plasma calcium bennie urement (mass/volume)on 04-07-2022 Calcium [Mass/Vol] 8.4 mg/dL 8.5-10.1 [facility] Work Phone: Serum or plasma creatinine m easurement (mass/volume)on 04-07-2022 Creatinine [Mass/Vol] 0.72 mg/dL 0.55-1.02 [facility] Work Phone: Comment on above: The validity of the calculated GFR & GFRAA in patients over 70 years has not been determined. Clinical correlation is essential. Serum or plasma urea nitroge n measurement (mass/volume)on 04-07-2022 Urea nitrogen [Mass/Vol] 15 mg/dL 7-18 [facility] Work Phone: Thin prep Papanicolaou smear with manual screeningon 04-07-2022 Thin prep Papanicolaou smear with manual screening 16 U/L 15-37 [facility] Work Phone: Thin prep Papanicolaou smear with manual screening 6 5-15 [facility] Work Phone: VERONIKA (ANTINUCLEAR ANTIBODY) ( 22837)Ordered By: [employer] Repr[employer]ing Unit Operator on 01-26-2022 Nuclear Ab Ql (S) Negative Normal Compreh ensive Internal [facility]; [facility] Work Phone: Comment on above: Test(s) 668060-Kwmtw ic, Blood; 747032-Yyknize, Blood; 151206-Eqowyiq, Bloodwas developed and its performance characteristics determinedby [employer]. It has not been cleared or approved by the Foodand Drug Administration.PATIENT NOT FASTINGPERFORMED BY: Shippo[address] [id number] BY: [employer]ight70 [facility] [id number] CBC & PLATELETS (AUTO) (8502 7)Ordered By: [employer] Repr[employer]ing Unit Operator on 01-26-2022 Erythrocyte distribution width (RBC) [Ratio] 13.6 % Normal 11.7-15.4 [facility] Work Phone: Comment on above: Test(s) 363406-Tmcfb ic, Blood; 137948-Xwifdmq, Blood; 798675-Ijmhpbt, Bloodwas developed and its performance characteristics determinedby [employer]. It has not been cleared or approved by the Foodand Drug Administration.PATIENT NOT FASTINGPERFORMED BY: [email or web address] [address] [id number] BY: [facility] [id number] Hematocrit (Bld) [Volume fraction] 41.0 % Normal 34.0-46.6 [facility]; [facility] Work Phone: Comment on above: Test(s) 014587-Dicrc ic, Blood; 747572-Fabhkhy, Blood; 845514-Tipkies, Bloodwas developed and its performance characteristics determinedby [employer]. It has not been cleared or approved by the Foodand Drug Administration.PATIENT NOT FASTINGPERFORMED BY: [email or web address] [address] [id number] BY: mii Lmjaip1198 [address] YunnoAt[facility] Health [facility] [id number] Hemoglobin (Bld) [Mass/Vol] 13.9 g/dL Normal 11.1-15.9 [facility]; [facility] Work Phone: Comment on above: Test(s) 260185-Kltgs ic, Blood; 301153-Pnbnirn, Blood; 847368-Xpwitak, Bloodwas developed and its performance characteristics determinedby [employer]. It has not been cleared or approved by the Foodand Drug Administration.PATIENT NOT FASTINGPERFORMED BY: [email or web address] [address] [id number] BY: mii Juqgqm7052 [address] [facility] [id number] MCH (RBC) [Entitic mass] 30.6 pg Normal 26.6-33.0 [facility]; [facility] Work Phone: Comment on above: Test(s) 127913-Khcnk ic, Blood; 284587-Byuvgho, Blood; 340527-Arlwtca, Bloodwas developed and its performance characteristics determinedby [employer]. It has not been cleared or approved by the Foodand Drug Administration.PATIENT NOT FASTINGPERFORMED BY: [employer] [id number] BY: miiPresbyterian Santa Fe Medical CenterCdmfot1214 [facility] [id number] MCHC (RBC) [Mass/Vol] 33.9 g/dL Normal 31.5-35.7 Com prehensive Internal Medicine; [facility] Work Phone: Comment on above: Test(s) 654789-Izptf ic, Blood; 436198-Kagzgld, Blood; 162241-Dosixia, Bloodwas developed and its performance characteristics determinedby [employer]. It has not been cleared or approved by the Foodand Drug Administration.PATIENT NOT FASTINGPERFORMED BY: [email or web address] [address] [id number] BY: [employer]70 [facility] [id number] MCV (RBC) [Entitic vol] 90 fL Normal 79-97 [facility]; [facility] Work Phone: Comment on above: Test(s) 950543-Uigty ic, Blood; 016323-Wubmkde, Blood; 536396-Nfldoje, Bloodwas developed and its performance characteristics determinedby [employer]. It has not been cleared or approved by the Foodand Drug Administration.PATIENT NOT FASTINGPERFORMED BY: Shippo[address] [id number] BY: [employer]70 [facility] [id number] Platelets (Bld) [#/Vol] 252 10*3/uL Normal 150-450 [facility]; [facility] Work Phone: Comment on above: Test(s) 987589-Gvodl ic, Blood; 686507-Ywhfkdy, Blood; 028334-Tjjaspy, Bloodwas developed and its performance characteristics determinedby [employer]. It has not been cleared or approved by the Foodand Drug Administration.PATIENT NOT FASTINGPERFORMED BY: [email or web address] [address] [id number] BY: [employer]ight70 IMayGouAtrium Health [facility] [id number] RBC (Bld) [#/Vol] 4.54 10*6/uL Normal 3.77-5.28 [facility] Work Phone: Comment on above: Test(s) 118215-Apwgw ic, Blood; 200914-Zrvocgv, Blood; 073310-Idsyktv, Bloodwas developed and its performance characteristics determinedby [employer]. It has not been cleared or approved by the Foodand Drug Administration.PATIENT NOT FASTINGPERFORMED BY: [employer] [id number] BY: mii Uwovku6149 [address] [facility]CamSelect [facility] [id number] WBC (Bld) [#/Vol] 4.7 10*3/uL Normal 3.4-10.8 [facility] Internal [facility]; [facility] Work Phone: Comment on above: Test(s) 354070-Pwbyr ic, Blood; 453840-Dnyuuxm, Blood; 770042-Utpvwoc, Bloodwas developed and its performance characteristics determinedby [employer]. It has not been cleared or approved by the Foodand Drug Administration.PATIENT NOT FASTINGPERFORMED BY: [email or web address] [address] [id number] BY: [employer]ight[address] MomentCamSelect [facility]ty Hospital [id number] HEAVY METAL SCREEN (05039)Or dered By: [employer]rinting Unit Operator on 01-26-2022 Arsenic (Bld) [Mass/Vol] <1 Normal 0-9 [facility]; [facility] Work Phone: Comment on above: Detection Limit = 1 Test(s) 049899-Hvxko ic, Blood; 096217-Zkmeyek, Blood; 895147-Aoyoami, Bloodwas developed and its performance characteristics determinedby [employer]. It has not been cleared or approved by the Foodand Drug Administration.PATIENT NOT FASTINGPERFORMED BY: [employer] [address] [id number] BY: [employer] Lslyrj6721 [address] YunnoAtrium Health [facility] [id number] Cadmium (Bld) [Mass/Vol] <0.5 Normal 0.0-1.2 [facility]; [facility] Work Phone: Comment on above: Environmental Exposu re: Nonsmokers 0.3 - 1.2 Smokers 0.6 - 3.9 Occupational Exposure: OSHA Cadmium Std 5.0 NICOL 5.0 . Detection Limit = 0.5 Test(s) 497471-Wcqgp ic, Blood; 833913-Wyypdho, Blood; 307222-Sruxybm, Bloodwas developed and its performance characteristics determinedby [employer]. It has not been cleared or approved by the Foodand Drug Administration.PATIENT NOT FASTINGPERFORMED BY: [address] [id number] BY: [address] [id number] Lead (Bld) [Mass/Vol] ug/dL Normal 0-4 [facility] prehensive Internal Medicine; [facility] Work Phone: Comment on above: Testing performed by Inductively coupled plasma/Mass Spectrometry. Environmental Exposure: WHO Recommendation <20 Occupational Exposure: OSHA Lead Std 40 NICOL 30 . Detection Limit = 1 . This test was developed and its performance characteristics determined by [employer]. It has not been cleared or approved by the Food and Drug Administration. Test(s) 709459-Lzzrt ic, Blood; 686500-Bjfiqkd, Blood; 656551-Eldjsgk, Bloodwas developed and its performance characteristics determinedby [employer]. It has not been cleared or approved by the Foodand Drug Administration.PATIENT NOT FASTINGPERFORMED BY: mii[address] [id number] BY: [facility] Main CampusAppformaPenn Medicine Princeton Medical CenterPlxkdp4547 [facility] [id number] Mercury (Bld) [Mass/Vol] <1.0 Normal 0.0-14.9 [facility]; [facility] Work Phone: Comment on above: Environmental Exposu re: <15.0 Occupational Exposure: NICOL - Inorganic Mercury: 15.0 . Detection Limit = 1.0 Test(s) 090002-Eizzu ic, Blood; 911660-Iyplltw, Blood; 430108-Zbmzaan, Bloodwas developed and its performance characteristics determinedby [employer]. It has not been cleared or approved by the Foodand Drug Administration.PATIENT NOT FASTINGPERFORMED BY: [address] [id number] BY: miiPenn Medicine Princeton Medical CenterVutmwe1855 [facility] [id number] HEPATITIS C ANTIBODY (21958) Ordered By: Shotgun [employer] Reprinting Unit Operator on 01-26-2022 HCV Ab Signal/Cutoff IA [Rel units/Vol] 0.1 {s/co_ratio} Normal 0.0-0.9 [facility]; [facility] Work Phone: Comment on above: Negative: < 0.8 Inde terminate: 0.8 - 0.9 Positive: > 0.9 . HCV antibody alone does not differentiate between previous resolved infection and active infection. The CDC and current clinical guidelines recommend that a positive HCV antibody result be followed up with an HCV RNA test to support the diagnosis of acute HCV infection. mii offers Hepatitis C Virus (HCV) RNA, Diagnosis, ARIANE (206992) and Hepatitis C Virus (HCV) Antibody with reflex to Quantitative Real-time PCR (228643). Test(s) 833725-Pvzjh ic, Blood; 418858-Xvvgrjt, Blood; 729129-Vtvspps, Bloodwas developed and its performance characteristics determinedby [employer]. It has not been cleared or approved by the Foodand Drug Administration.PATIENT NOT FASTINGPERFORMED BY: [employer] [address] [id number] BY: [employer] Fmlffo7860 [facility] [id number] HGB A1C (54112)Ordered By: S ystem [employer] Scm Consultant on 01-26-2022 HbA1c (Bld) [Mass fraction] 5.5 % Normal 4.8-5.6 [facility]; [facility] Work Phone: Comment on above: . Prediabetes: 5.7 - 6.4 Diabetes: >6.4 Glycemic control for adults with diabetes: <7.0 Test(s) 278662-Aqbvg ic, Blood; 427651-Vcojklp, Blood; 037321-Akqszrt, Bloodwas developed and its performance characteristics determinedby [employer]. It has not been cleared or approved by the Foodand Drug Administration.PATIENT NOT FASTINGPERFORMED BY: [employer] [address] [id number] BY: GCW Lasazn8898 [address] MomentCamin [place] [id number] METABOLIC PANEL, COMPREHENSI VE (68040)Ordered By: Shotgun Shell Reprinting Unit Operator on 01-26-2022 Albumin [Mass/Vol] 4.6 g/dL Normal 3.8-4.8 [facility]; [facility] Work Phone: Comment on above: Test(s) 681483-Qqleu ic, Blood; 223504-Vpeodyq, Blood; 470705-Sqgbhtr, Bloodwas developed and its performance characteristics determinedby [employer]. It has not been cleared or approved by the Foodand Drug Administration.PATIENT NOT FASTINGPERFORMED BY: [email or web address] [address] [id number] BY: Inetec6370 [address] MomentCamSelect Specialty Hospital [id number] Albumin/Globulin [Mass ratio] 2.0 {ratio} Normal 1.2-2.2 [facility]; [facility] Work Phone: Comment on above: Test(s) 316657-Repmb ic, Blood; 636631-Lfmhmgk, Blood; 846389-Qicpqrd, Bloodwas developed and its performance characteristics determinedby [employer]. It has not been cleared or approved by the Foodand Drug Administration.PATIENT NOT FASTINGPERFORMED BY: [email or web address] [address] [id number] BY: [employer]Cater Zfraqa9045 [address] MomentCamSelect Specialty Hospital [id number] ALP [Catalytic activity/Vol] 50 U/L Normal 44-121 [facility]; [facility] Work Phone: Comment on above: Test(s) 238882-Bobcr ic, Blood; 234151-Lbmfdmp, Blood; 937409-Stumcpq, Bloodwas developed and its performance characteristics determinedby [employer]. It has not been cleared or approved by the Foodand Drug Administration.PATIENT NOT FASTINGPERFORMED BY: [employer] [address] [id number] BY: ARCsyslin6370 Slater RoadDublin [place] [id number] ALT [Catalytic activity/Vol] 11 U/L Normal 0-32 [facility]; [facility] Work Phone: Comment on above: Test(s) 125819-Kskyn ic, Blood; 642161-Lsfmlcr, Blood; 221881-Exjfmtb, Bloodwas developed and its performance characteristics determinedby [employer]. It has not been cleared or approved by the Foodand Drug Administration.PATIENT NOT FASTINGPERFORMED BY: [employer] [address] [id number] BY: mii Nuuuft3380 [address] YunnoDublEphraim McDowell Regional Medical Center [id number] AST [Catalytic activity/Vol] 12 U/L Normal 0-40 [facility]; [facility] Work Phone: Comment on above: Test(s) 427423-Fuvtc ic, Blood; 132280-Aeugvce, Blood; 604402-Iapnldv, Bloodwas developed and its performance characteristics determinedby [employer]. It has not been cleared or approved by the Foodand Drug Administration.PATIENT NOT FASTINGPERFORMED BY: [employer] [address] [id number] BY: AppTrigger70 FootballScoutEphraim McDowell [facility] [id number] Bilirubin [Mass/Vol] 0.6 mg/dL Normal 0.0-1.2 [facility]; [facility] Work Phone: Comment on above: Test(s) 353692-Ucsux ic, Blood; 091215-Wlvfogm, Blood; 228914-Qjzrnju, Bloodwas developed and its performance characteristics determinedby [employer]. It has not been cleared or approved by the Foodand Drug Administration.PATIENT NOT FASTINGPERFORMED BY: mii[address] [id number] BY: mii Wwktyn8705 [address] YunnoDublin [place] [id number] Calcium [Mass/Vol] 9.4 mg/dL Normal 8.7-10.3 [facility]; [facility] Work Phone: Comment on above: Test(s) 444742-Zeoum ic, Blood; 240737-Mdcdgqf, Blood; 305092-Amztvar, Bloodwas developed and its performance characteristics determinedby [employer]. It has not been cleared or approved by the Foodand Drug Administration.PATIENT NOT FASTINGPERFORMED BY: [email or web address] [address] [id number] BY: [facility]6370 IMayGouAtrium Health K[facility]apolis [id number] Chloride [Moles/Vol] 102 mmol/L Normal 96-106 [facility]erens[facility]; [facility] Work Phone: Comment on above: Test(s) 386616-Rboih ic, Blood; 069783-Vgsekox, Blood; 510227-Ltczvkq, Bloodwas developed and its performance characteristics determinedby [employer]. It has not been cleared or approved by the Foodand Drug Administration.PATIENT NOT FASTINGPERFORMED BY: [employer] [address] [id number] BY: AppTrigger70 [address] YunnoAtrium Health [facility]apolis [id number] CO2 [Moles/Vol] 24 mmol/L Normal 20-29 [facility]; [facility] Work Phone: Comment on above: Test(s) 792590-Apiae ic, Blood; 123124-Uoeoxyl, Blood; 294208-Sxekrdw, Bloodwas developed and its performance characteristics determinedby [employer]. It has not been cleared or approved by the Foodand Drug Administration.PATIENT NOT FASTINGPERFORMED BY: mii[address] [id number] BY: ZeroCaterPresbyterian Santa Fe Medical CenterVhnxlb7765 [address] YunnoAtrium Health [facility]apolis [id number] Creatinine [Mass/Vol] 0.81 mg/dL Normal 0.57-1.00 [facility]erens[facility]; [facility] Work Phone: Comment on above: Test(s) 661067-Rrohq ic, Blood; 629625-Cviuveo, Blood; 052196-Dyqwdjg, Bloodwas developed and its performance characteristics determinedby [employer]. It has not been cleared or approved by the Foodand Drug Administration.PATIENT NOT FASTINGPERFORMED BY: mii[address] [id number] BY: miiPresbyterian Santa Fe Medical CenterUwtycd9190 [facility] [id number] GFR/1.73 sq M.predicted among non-blacks MDRD (S/P/Bld) [Vol rate/Area] 79 mL/min/{1.73_m2} Normal Comprehensiv e Internal Medicine; [facility] Work Phone: Comment on above: Test(s) 620819-Yboar ic, Blood; 011381-Pwslgtr, Blood; 779373-Mvpylyv, Bloodwas developed and its performance characteristics determinedby [employer]. It has not been cleared or approved by the Foodand Drug Administration.PATIENT NOT FASTINGPERFORMED BY: [email or web address] [address] [id number] BY: [facility]6370 [facility] [id number] Globulin (S) [Mass/Vol] 2.3 g/dL Normal 1.5-4.5 C omprehensive Internal Medicine; [facility] Work Phone: Comment on above: Test(s) 371158-Momot ic, Blood; 412843-Rorbams, Blood; 946818-Lzvugjs, Bloodwas developed and its performance characteristics determinedby [employer]. It has not been cleared or approved by the Foodand Drug Administration.PATIENT NOT FASTINGPERFORMED BY: [employer] [id number] BY: mii[facility] Medical CenterCisafc5216 [facility] [id number] Glucose [Mass/Vol] 102 mg/dL Abnormal 65-99 Compre hensive Internal Medicine; [facility] Work Phone: Comment on above: Test(s) 202894-Ixmyl ic, Blood; 923085-Madbegz, Blood; 850181-Uqpetul, Bloodwas developed and its performance characteristics determinedby [employer]. It has not been cleared or approved by the Foodand Drug Administration.PATIENT NOT FASTINGPERFORMED BY: mii[address] [id number] BY: mii[facility] Medical CenterIpkggv8090 [facility] [id number] Potassium [Moles/Vol] 4.4 mmol/L Normal 3.5-5.2 [facility]; [facility] Work Phone: Comment on above: Test(s) 626566-Wmrvs ic, Blood; 633825-Yezhdnt, Blood; 694020-Snfsiax, Bloodwas developed and its performance characteristics determinedby [employer]. It has not been cleared or approved by the Foodand Drug Administration.PATIENT NOT FASTINGPERFORMED BY: miirp [address] [id number] BY: mii[facility] Medical CenterYpcsqe5925 [facility] [id number] Protein [Mass/Vol] 6.9 g/dL Normal 6.0-8.5 [facility] Internal Medicine; [facility] Work Phone: Comment on above: Test(s) 677562-Xiurk ic, Blood; 418887-Nmcebil, Blood; 184774-Ceovgys, Bloodwas developed and its performance characteristics determinedby [employer]. It has not been cleared or approved by the Foodand Drug Administration.PATIENT NOT FASTINGPERFORMED BY: mii[address] [id number] BY: mii[facility] Medical CenterAptsmd7064 [facility] [id number] Sodium [Moles/Vol] 141 mmol/L Normal 134-144 [facility] Internal Medicine; [facility] Work Phone: Comment on above: Test(s) 824657-Ourrq ic, Blood; 395773-Uqondwa, Blood; 842201-Ckiryax, Bloodwas developed and its performance characteristics determinedby [employer]. It has not been cleared or approved by the Foodand Drug Administration.PATIENT NOT FASTINGPERFORMED BY: LabAppforma[address] [id number] BY: miiPres[facility] Medical CenterIgsxwe6401 [facility] [id number] Urea nitrogen [Mass/Vol] 14 mg/dL Normal 8-27 [facility]; [facility] Work Phone: Comment on above: Test(s) 403817-Lhgsi ic, Blood; 346023-Pvjadox, Blood; 814320-Bnskqwd, Bloodwas developed and its performance characteristics determinedby [employer]. It has not been cleared or approved by the Foodand Drug Administration.PATIENT NOT FASTINGPERFORMED BY: mii[address] [id number] BY: miiPres[facility] Medical CenterYoqrxr5381 [facility] [id number] Urea nitrogen/Creatinine [Mass ratio] 17 mg/mg Normal 12-28 [facility]; [facility] Work Phone: Comment on above: Test(s) 028836-Xodwo ic, Blood; 201877-Hqvmjif, Blood; 860377-Pomccbv, Bloodwas developed and its performance characteristics determinedby [employer]. It has not been cleared or approved by the Foodand Drug Administration.PATIENT NOT FASTINGPERFORMED BY: mii[address] [id number] BY: mii Kycxlz0808 [facility] [id number] SED RATE ERYTHROCYTE (53456) Ordered By: [employer]ing [employer] Operator on 01-26-2022 ESR (Bld) [Velocity] 9 mm/h Normal 0-40 [facility] rehensive Internal Medicine; [facility] Work Phone: Comment on above: Test(s) 969591-Nlxhx ic, Blood; 013751-Msnvzee, Blood; 594154-Quwehik, Bloodwas developed and its performance characteristics determinedby [employer]. It has not been cleared or approved by the Foodand Drug Administration.PATIENT NOT FASTINGPERFORMED BY: mii[address] [id number] BY: miiP[facility] CenterZnfzcy6804 [facility] [id number] Serum Protein Electrophoresi s (SPEP) (83259)Ordered By: [employer]ing [employer] Operator on 01-26-2022 Albumin [Mass/Vol] 4.0 g/dL Normal 2.9-4.4 [facility] Internal Medicine; [facility] Work Phone: Comment on above: Test(s) 326895-Xhcdt ic, Blood; 945940-Ezkxpea, Blood; 795469-Rozyxcv, Bloodwas developed and its performance characteristics determinedby [employer]. It has not been cleared or approved by the Foodand Drug Administration.PATIENT NOT FASTINGPERFORMED BY: [email or web address] [address] [id number] BY: KFx [facility]At[facility] [id number] Albumin/Globulin [Mass ratio] 1.4 {ratio} Normal 0.7-1.7 [facility] Internal Medicine; [facility] Work Phone: Comment on above: Test(s) 737172-Ydvfn ic, Blood; 827626-Thgojge, Blood; 123851-Sjgdmpr, Bloodwas developed and its performance characteristics determinedby [employer]. It has not been cleared or approved by the Foodand Drug Administration.PATIENT NOT FASTINGPERFORMED BY: [email or web address] [address] [id number] BY: eSight70 [facility] [id number] Alpha 1 globulin Elph [Mass/Vol] 0.2 g/dL Normal 0.0-0.4 [facility]; [facility] Work Phone: Comment on above: Test(s) 589569-Inaiy ic, Blood; 676289-Lfaztit, Blood; 973390-Zoexdhm, Bloodwas developed and its performance characteristics determinedby [employer]. It has not been cleared or approved by the Foodand Drug Administration.PATIENT NOT FASTINGPERFORMED BY: [email or web address] [address] [id number] BY: Inetec6370 [address] Y[facility]noAt[facility] [id number] Alpha 2 globulin Elph [Mass/Vol] 0.9 g/dL Normal 0.4-1.0 [facility]; [facility] Work Phone: Comment on above: Test(s) 923766-Smxbg ic, Blood; 632324-Ihjmata, Blood; 480686-Veqsxyk, Bloodwas developed and its performance characteristics determinedby [employer]. It has not been cleared or approved by the Foodand Drug Administration.PATIENT NOT FASTINGPERFORMED BY: mii[address] [id number] BY: mii Fbkpsq7839 [address] [facility]noAt[facility] [id number] Beta globulin Elph [Mass/Vol] 1.0 g/dL Normal 0.7-1.3 [facility]; [facility] Work Phone: Comment on above: Test(s) 933170-Ivabn ic, Blood; 432197-Olynpgy, Blood; 652718-Ifbqyit, Bloodwas developed and its performance characteristics determinedby [employer]. It has not been cleared or approved by the Foodand Drug Administration.PATIENT NOT FASTINGPERFORMED BY: [email or web address] [address] [id number] BY: [employer] Puitwz8512 [facility] [id number] Gamma globulin Elph [Mass/Vol] 0.9 g/dL Normal 0.4-1.8 [facility]; [facility] Work Phone: Comment on above: Test(s) 914200-Daigk ic, Blood; 196394-Dfardtv, Blood; 733544-Ncpsbwt, Bloodwas developed and its performance characteristics determinedby [employer]. It has not been cleared or approved by the Foodand Drug Administration.PATIENT NOT FASTINGPERFORMED BY: mii[address] [id number] BY: mii[place] [id number] [facility] [id number] Globulin (S) [Mass/Vol] 2.9 g/dL Normal 2.2-3.9 C omprehensive Internal Medicine; [facility] Work Phone: Comment on above: Test(s) 562043-Hazhn ic, Blood; 373478-Yfpikfy, Blood; 338487-Krylvfo, Bloodwas developed and its performance characteristics determinedby LabYuanpei Translation. It has not been cleared or approved by the Foodand Drug Administration.PATIENT NOT FASTINGPERFORMED BY: [email or web address] [address] [id number] BY: AppTrigger70 [facility] [id number] Laboratory comment Armando (Report) [facility] Normal [facility]; [facility] Work Phone: Comment on above: Protein electrophore sis scan will follow via computer, mail, orcourier delivery. Test(s) 431185-Azmmf ic, Blood; 904669-Ggpjeuz, Blood; 403287-Qqsscbi, Bloodwas developed and its performance characteristics determinedby [employer]. It has not been cleared or approved by the Foodand Drug Administration.PATIENT NOT FASTINGPERFORMED BY: [email or web address] [address] [id number] BY: eSight[address] [facility] [id number] Laboratory report . Normal Compreh ensive Internal Medicine; [facility] Work Phone: Comment on above: Test(s) 481410-Qrtot ic, Blood; 843890-Ylzfbtg, Blood; 687890-Ikatnbf, Bloodwas developed and its performance characteristics determinedby [employer]. It has not been cleared or approved by the Foodand Drug Administration.PATIENT NOT FASTINGPERFORMED BY: [email or web address] [address] [id number] BY: [employer]ement Dlzdmv9228 [address] YunnoAtrium Health [facility] [id number] Protein.monoclonal Elph [Mass/Vol] Not Observed Normal [facility]; [facility] Work Phone: Comment on above: Test(s) 006778-Rkrvd ic, Blood; 189855-Rbtvmju, Blood; 471320-Gjaxzlz, Bloodwas developed and its performance characteristics determinedby [employer]. It has not been cleared or approved by the Foodand Drug Administration.PATIENT NOT FASTINGPERFORMED BY: [email or web address] [address] [id number] BY: Inetec6370 [facility] [id number] TSH (THYROID STIMULATING HOR DARIN) (97854)Ordered By: [employer]ing Unit Operator on 01-26-2022 TSH Qn 1.210 {uIU/mL} Normal 0.450-4.50 0 [facility]; [facility] Work Phone: Comment on above: Test(s) 410763-Azmgt ic, Blood; 522708-Haecmvq, Blood; 834551-Xympfjl, Bloodwas developed and its performance characteristics determinedby [employer]. It has not been cleared or approved by the [facility] Drug Administration.PATIENT NOT FASTINGPERFORMED BY: Shippo[address] [id number] BY: eSight70 [facility] [id number] VITAMIN B-12 (CYANOCOBALAMIN ) (70107)Ordered By: [employer]gun [employer] Reprinting Unit Operator on 01-26-2022 Cobalamin (Vitamin B12) [Mass/Vol] 523 pg/mL Normal 232-1245 [facility]; [facility] Work Phone: Comment on above: Test(s) 020402-Jdqhn ic, Blood; 538516-Nctrwbx, Blood; 642138-Fyzjkni, Bloodwas developed and its performance characteristics determinedby [employer]. It has not been cleared or approved by the FoodnContact Surgical Drug Administration.PATIENT NOT FASTINGPERFORMED BY: [email or web address] [address] [id number] BY: GCW Dflzjz6189 [facility] [id number] Absolute lymphocyte counton 01-11-2022 Lymphocytes Auto (Unsp spec) [#/Vol] 1.61 10*3/uL 0.83-4.51 [facility] Work Phone: Basophil percentageon 2021 Basophils/100 WBC (Bld) 0.7 % 0-1 [facility] Work Phone: Bilirubin [Mass/Vol] 1.10 mg/dL 0.20-1.00 [facility] Work Phone: Comment on above: For patients on eltr ombopag therapy, use of Dimension [place] TBIL is not recommended. Chloride [Moles/Vol] 104 mmol/L 98-107 [facility] Work Phone: Eosinophils/100 WBC (Bld) 1.4 % 0-5 [facility] Work Phone: Glucose [Mass/Vol] 119 mg/dL 74-106 [facility] Work Phone: Comment on above: Fasting Glucose resu lt from 100 to 125 mg/dL suggests IMPAIRED HOMEOSTASIS per A.D.A. criteria. Neutrophils (Bld) [#/Vol] 2.1 10*3/uL 2.0-7.7 [facility] Work Phone: Neutrophils/100 WBC (Bld) 49.3 % 47-70 [facility] Work Phone: Potassium [Moles/Vol] 3.6 mmol/L 3.5-5.1 [facility] Work Phone: Protein [Mass/Vol] 7.3 g/dL 6.4-8.2 [facility] Work Phone: Sodium [Moles/Vol] 139 mmol/L 136-145 [facility] Work Phone: WBC (Bld) [#/Vol] 4.3 10*3/uL 4.4-11.0 [facility] Work Phone: Blood erythrocytes count (nu mber/volume)on 01-11-2022 RBC (Bld) [#/Vol] 4.30 10*6/uL 4.2-5.4 [facility] Work Phone: Blood hemoglobin measurement (mass/volume)on 01-11-2022 Hemoglobin (Bld) [Mass/Vol] 13.1 g/dL 12.0-15.0 [facility] Work Phone: Blood lymphocytes/100 leukoc yteson 01-11-2022 Lymphocytes/100 WBC (Bld) 37.3 % 19-41 [facility] Work Phone: Blood monocytes/100 leukocyt eson 01-11-2022 Monocytes/100 WBC (Bld) 11.1 % 0-10 [facility] Work Phone: Blood platelet mean volumeon 01-11-2022 Platelet mean volume (Bld) [Entitic vol] 8.8 fL 6.2-12.0 [facility] Work Phone: Determination of erythrocyte mean corpuscular volume (MCV)on 01-11-2022 MCV (RBC) [Entitic vol] 91.9 fL 81-99 [facility] Work Phone: Hematocrit Auto (Bld) [Volum e fraction]on 01-11-2022 Hematocrit (Bld) [Volume fraction] 39.5 % 37-47 [facility] Work Phone: Laboratory - Chemistry and C hemistry - challengeon 01-11-2022 ALP [Catalytic activity/Vol] 45 U/L 45-117 [facility] Work Phone: ALT [Catalytic activity/Vol] 20 U/L 13-56 [facility] Work Phone: CO2 [Moles/Vol] 28.0 mmol/L 21.0-32.0 [facility] Work Phone: Globulin (S) [Mass/Vol] 3.4 g/dL 2.2-4.2 [facility] Work Phone: Urea nitrogen/Creatinine [Mass ratio] 12.8 mg/mg 10-20 [facility] Work Phone: Laboratory - Hematology and Cell countson 01-11-2022 Erythrocyte distribution width (RBC) [Entitic vol] 49.1 fL 35.1-43.9 [facility] Work Phone: Erythrocyte distribution width (RBC) [Ratio] 14.6 % 11.6-14.6 [facility] Work Phone: Immature granulocytes/100 WBC (Bld) 0.200 % 0.0-0.9 [facility] Work Phone: Comment on above: IG% - Immature Granu locytes (promyelocytes, myelocytes and metamyelocytes) > 1% indicates that a LEFT SHIFT is Present. MCH (RBC) [Entitic mass] 30.5 pg 27.0-32.0 [facility] Work Phone: Nucleated RBC/100 WBC (Bld) [Ratio] 0 % 0-5 [facility] Work Phone: MCHC Auto (RBC) [Mass/Vol]on 01-11-2022 MCHC (RBC) [Mass/Vol] 33.2 g/dL 32-36 [facility] Work Phone: No Panel Informationon 01-11 Estimated GFR (MDRD) Amer 84 mL/min >60 [facility] Work Phone: Comment on above: GFR Calc Estimated GFR (MDRD) Non-Af Amer 70 mL/min >60 [facility] Work Phone: Comment on above: Non- GFR Calc Platelets bldon 01-11-2022 Platelets (Bld) [#/Vol] 272 10*3/uL 150-450 [facility] Work Phone: Serum or plasma albumin bennie urement (mass/volume)on 01-11-2022 Albumin [Mass/Vol] 3.9 g/dL 3.2-5.0 [facility] Work Phone: Serum or plasma albumin/glob ulin mass ratioon 01-11-2022 Albumin/Globulin [Mass ratio] 1.1 {ratio} 0.9-2.4 [facility] Work Phone: Serum or plasma calcium bennie urement (mass/volume)on 01-11-2022 Calcium [Mass/Vol] 9.3 mg/dL 8.5-10.1 [facility] Work Phone: Serum or plasma creatinine m easurement (mass/volume)on 01-11-2022 Creatinine [Mass/Vol] 0.86 mg/dL 0.55-1.02 [facility] Work Phone: Comment on above: The validity of the calculated GFR & GFRAA in patients over 70 years has not been determined. Clinical correlation is essential. Serum or plasma urea nitroge n measurement (mass/volume)on 01-11-2022 Urea nitrogen [Mass/Vol] 11 mg/dL 7-18 [facility] Work Phone: Thin prep Papanicolaou smear with manual screeningon 01-11-2022 Thin prep Papanicolaou smear with manual screening 13 U/L 15-37 [facility] Work Phone: Thin prep Papanicolaou smear with manual screening 7 5-15 [facility] Work Phone: Absolute lymphocyte counton 10-18-2021 Lymphocytes Auto (Unsp spec) [#/Vol] 1.89 10*3/uL 0.83-4.51 [facility] Work Phone: Basophil percentageon 2021 Basophils/100 WBC (Bld) 1.0 % 0-1 [facility] Work Phone: Bilirubin [Mass/Vol] 0.70 mg/dL 0.20-1.00 [facility] Work Phone: Comment on above: For patients on eltr ombopag therapy, use of Dimension [place] TBIL is not recommended. Chloride [Moles/Vol] 105 mmol/L 98-107 [facility] Work Phone: Eosinophils/100 WBC (Bld) 2.5 % 0-5 [facility] Work Phone: Glucose [Mass/Vol] 97 mg/dL 74-106 [facility] Work Phone: Neutrophils (Bld) [#/Vol] 2.5 10*3/uL 2.0-7.7 [facility] Work Phone: Neutrophils/100 WBC (Bld) 47.8 % 47-70 [facility] Work Phone: Potassium [Moles/Vol] 3.6 mmol/L 3.5-5.1 [facility] Work Phone: Protein [Mass/Vol] 7.3 g/dL 6.4-8.2 [facility] Work Phone: Sodium [Moles/Vol] 140 mmol/L 136-145 [facility] Work Phone: WBC (Bld) [#/Vol] 5.2 10*3/uL 4.4-11.0 [facility] Work Phone: Blood erythrocytes count (nu mber/volume)on 10-18-2021 RBC (Bld) [#/Vol] 4.64 10*6/uL 4.2-5.4 [facility] Work [facility]: Blood hemoglobin measurement (mass/volume)on 10-18-2021 Hemoglobin (Bld) [Mass/Vol] 13.3 g/dL 12.0-15.0 [facility] Work Phone: Blood lymphocytes/100 leukoc yteson 10-18-2021 Lymphocytes/100 WBC (Bld) 36.1 % 19-41 [facility] Work Phone: Blood monocytes/100 leukocyt eson 10-18-2021 Monocytes/100 WBC (Bld) 12.4 % 0-10 [facility] Work Phone: Blood platelet mean volumeon 10-18-2021 Platelet mean volume (Bld) [Entitic vol] 9.1 fL 6.2-12.0 [facility] Work Phone: Determination of erythrocyte mean corpuscular volume (MCV)on 10-18-2021 MCV (RBC) [Entitic vol] 88.4 fL 81-99 [facility] Work Phone: Hematocrit Auto (Bld) [Volum e fraction]on 10-18-2021 Hematocrit (Bld) [Volume fraction] 41.0 % 37-47 [facility] Work Phone: Laboratory - Chemistry and C hemistry - challengeon 10-18-2021 ALP [Catalytic activity/Vol] 60 U/L 45-117 [facility] Work Phone: ALT [Catalytic activity/Vol] 18 U/L 13-56 [facility] Work Phone: CO2 [Moles/Vol] 27.0 mmol/L 21.0-32.0 [facility] Work Phone: Globulin (S) [Mass/Vol] 3.5 g/dL 2.2-4.2 [facility] Work Phone: Urea nitrogen/Creatinine [Mass ratio] 13.4 mg/mg 10-20 [facility] Work Phone: Laboratory - Hematology and Cell countson 10-18-2021 Erythrocyte distribution width (RBC) [Entitic vol] 42.6 fL 35.1-43.9 [facility] Work Phone: Erythrocyte distribution width (RBC) [Ratio] 13.2 % 11.6-14.6 [facility] Work Phone: Immature granulocytes/100 WBC (Bld) 0.200 % 0.0-0.9 [facility] Work Phone: Comment on above: IG% - Immature Granu locytes (promyelocytes, myelocytes and metamyelocytes) > 1% indicates that a LEFT SHIFT is Present. MCH (RBC) [Entitic mass] 28.7 pg 27.0-32.0 [facility] Work Phone: Nucleated RBC/100 WBC (Bld) [Ratio] 0 % 0-5 [facility] Work Phone: MCHC Auto (RBC) [Mass/Vol]on 10-18-2021 MCHC (RBC) [Mass/Vol] 32.4 g/dL 32-36 [facility] Work Phone: No Panel Informationon 10-18 Estimated GFR (MDRD) Amer 81 mL/min >60 [facility] Work Phone: Comment on above: GFR Calc Estimated GFR (MDRD) Non-Af Amer 67 mL/min >60 [facility] Work Phone: Comment on above: Non- GFR Calc Platelets bldon 10-18-2021 Platelets (Bld) [#/Vol] 234 10*3/uL 150-450 [facility] Work Phone: Serum or plasma albumin bennie urement (mass/volume)on 10-18-2021 Albumin [Mass/Vol] 3.8 g/dL 3.2-5.0 [facility] Work Phone: Serum or plasma albumin/glob ulin mass ratioon 10-18-2021 Albumin/Globulin [Mass ratio] 1.1 {ratio} 0.9-2.4 [facility] Work Phone: Serum or plasma calcium bennie urement (mass/volume)on 10-18-2021 Calcium [Mass/Vol] 8.6 mg/dL 8.5-10.1 [facility] Work Phone: Serum or plasma creatinine m easurement (mass/volume)on 10-18-2021 Creatinine [Mass/Vol] 0.89 mg/dL 0.55-1.02 [facility] Work Phone: Comment on above: The validity of the calculated GFR & GFRAA in patients over 70 years has not been determined. Clinical correlation is essential. Serum or plasma urea nitroge n measurement (mass/volume)on 10-18-2021 Urea nitrogen [Mass/Vol] 12 mg/dL 7-18 [facility] Work Phone: Thin prep Papanicolaou smear with manual screeningon 10-18-2021 Thin prep Papanicolaou smear with manual screening 16 U/L 15-37 [facility] Work Phone: Thin prep Papanicolaou smear with manual screening 8 5-15 [facility] Work Phone: Absolute lymphocyte counton 08-11-2021 Lymphocytes Auto (Unsp spec) [#/Vol] 1.62 10*3/uL 0.83-4.51 [facility] Work Phone: Basophil percentageon 2020 Bilirubin [Mass/Vol] 0.90 mg/dL 0.20-1.00 [facility] Work Phone: Comment on above: For patients on eltr ombopag therapy, use of Dimension [place] TBIL is not recommended. Chloride [Moles/Vol] 107 mmol/L 98-107 [facility] Work Phone: Eosinophils/100 WBC (Bld) 1.7 % 0-5 [facility] Work Phone: Glucose [Mass/Vol] 96 mg/dL 74-106 [facility] Work Phone: Comment on above: Please note revised GLUCOSE reference range effective 2017. Neutrophils (Bld) [#/Vol] 3.1 10*3/uL 2.0-7.7 [facility] Work Phone: Potassium [Moles/Vol] 3.8 mmol/L 3.5-5.1 [facility] Work Phone: Protein [Mass/Vol] 7.4 g/dL 6.4-8.2 [facility] Work Phone: Sodium [Moles/Vol] 141 mmol/L 136-145 [facility] Work Phone: WBC (Bld) [#/Vol] 5.4 10*3/uL 4.4-11.0 [facility] Work Phone: Blood erythrocytes count (nu mber/volume)on 08-11-2021 RBC (Bld) [#/Vol] 4.60 10*6/uL 4.2-5.4 [facility] Work Phone: Blood hemoglobin measurement (mass/volume)on 08-11-2021 Hemoglobin (Bld) [Mass/Vol] 13.3 g/dL 12.0-15.0 [facility] Work Phone: Blood lymphocytes/100 leukoc yteson 08-11-2021 Lymphocytes/100 WBC (Bld) 29.8 % 19-41 [facility] Work Phone: Blood monocytes/100 leukocyt eson 08-11-2021 Monocytes/100 WBC (Bld) 11.2 % 0-10 [facility] Work Phone: Blood platelet mean volumeon 08-11-2021 Platelet mean volume (Bld) [Entitic vol] 9.3 fL 6.2-12.0 [facility] Work Phone: Determination of erythrocyte mean corpuscular volume (MCV)on 08-11-2021 MCV (RBC) [Entitic vol] 89.8 fL 81-99 [facility] Work Phone: Hematocrit Auto (Bld) [Volum e fraction]on 08-11-2021 Hematocrit (Bld) [Volume fraction] 41.3 % 37-47 [facility] Work Phone: Laboratory - Chemistry and C hemistry - challengeon 08-11-2021 ALP [Catalytic activity/Vol] 58 U/L 45-117 [facility] Work Phone: ALT [Catalytic activity/Vol] 21 U/L 13-56 [facility] Work Phone: CO2 [Moles/Vol] 28.0 mmol/L 21.0-32.0 [facility] Work Phone: Globulin (S) [Mass/Vol] 3.7 g/dL 2.2-4.2 [facility] [facility] Work Phone: Urea nitrogen/Creatinine [Mass ratio] 18.4 mg/mg 10-20 [facility] Work Phone: Laboratory - Hematology and Cell countson 08-11-2021 Basophils/100 WBC (Unsp spec) 0.9 % 0-1 [facility] Work Phone: Erythrocyte distribution width (RBC) [Entitic vol] 40.4 fL 35.1-43.9 [facility] Work Phone: Erythrocyte distribution width (RBC) [Ratio] 12.3 % 11.6-14.6 [facility] Work Phone: Immature granulocytes/100 WBC (Bld) 0.200 % 0.0-0.9 [facility] Work Phone: Comment on above: IG% - Immature Granu locytes (promyelocytes, myelocytes and metamyelocytes) > 1% indicates that a LEFT SHIFT is Present. MCH (RBC) [Entitic mass] 28.9 pg 27.0-32.0 [facility] Work Phone: Neutrophils/100 WBC (Bld) 56.2 % 47-70 [facility] Work Phone: Nucleated RBC/100 WBC (Bld) [Ratio] 0 % 0-5 [facility] Work Phone: MCHC Auto (RBC) [Mass/Vol]on 08-11-2021 MCHC (RBC) [Mass/Vol] 32.2 g/dL 32-36 [facility] Work Phone: No Panel Informationon 08-11 Estimated GFR (MDRD) Amer 83 mL/min >60 [facility] Work Phone: Comment on above: GFR Calc Estimated GFR (MDRD) Non-Af Amer 69 mL/min >60 [facility] Work Phone: Comment on above: Non- GFR Calc Platelets bldon 08-11-2021 Platelets (Bld) [#/Vol] 273 10*3/uL 150-450 [facility] Work Phone: Serum or plasma albumin bennie urement (mass/volume)on 08-11-2021 Albumin [Mass/Vol] 3.7 g/dL 3.2-5.0 [facility] Work Phone: Serum or plasma albumin/glob ulin mass ratioon 08-11-2021 Albumin/Globulin [Mass ratio] 1.0 {ratio} 0.9-2.4 [facility] Work Phone: Serum or plasma calcium bennie urement (mass/volume)on 08-11-2021 Calcium [Mass/Vol] 9.0 mg/dL 8.5-10.1 [facility] Work Phone: Serum or plasma creatinine m easurement (mass/volume)on 08-11-2021 Creatinine [Mass/Vol] 0.87 mg/dL 0.55-1.02 [facility] Work Phone: Comment on above: The validity of the calculated GFR & GFRAA in patients over 70 years has not been determined. Clinical correlation is essential. Serum or plasma urea nitroge n measurement (mass/volume)on 08-11-2021 Urea nitrogen [Mass/Vol] 16 mg/dL 7-18 [facility] Work Phone: Thin prep Papanicolaou smear with manual screeningon 08-11-2021 Thin prep Papanicolaou smear with manual screening 14 U/L 15-37 [facility] Work Phone: Thin prep Papanicolaou smear with manual screening 6 5-15 [facility] Work Phone: HgA1C , Office ([id number])Ordere d By: Kimberli Leal on 07-02-2021 HbA1c (Bld) [Mass fraction] 5.2 % Normal 4.6 - 7.1 [facility] Work Phone: CALCIFIDIOL ([id number]) VIT D 25 Ordered By: [employer] Repr[employer]ing Unit Operator on 03-26-2021 25-hydroxyvitamin D [Mass/Vol] 39.8 ng/mL Normal 30.0-100.0 [facility]; [facility] Work Phone: Comment on above: Vitamin D deficiency has been defined by the [place] of[place] and an Endocrine Society practice guideline as alevel of serum 25-OH vitamin D less than 20 ng/mL (1,2).The Endocrine Society went on to further define vitamin Dinsufficiency as a level between 21 and 29 ng/mL (2).1. IOM ([place]). 2010. Dietary reference intakes for calcium and D. [place]: The National Academies Press.2. Andrey MF, Dago [place], Cuauhtemoc MOSS, et al. Evaluation, treatment, and prevention of vitamin D deficiency: an Endocrine Society clinical practice guideline. JCEM. 2010; 96(3):1911-30. PATIENT WAS FASTINGP ERFORMED BY: OLIVIA LabCoangela Uruxfo3233 [address] RoadDublin [place] [id number] CBC W/AUTO DIFF WBC (45883)O rdered By: [employer]ing [employer] Operator on 03-26-2021 Basophils (Bld) [#/Vol] 0.1 10*3/uL Normal 0.0-0.2 [facility]; [facility] Work Phone: Comment on above: PATIENT WAS FASTINGP ERFORMED BY: OLIVIA LabCoangela PérezUneruy9327 [address] RoadDublin [place] [id number] Basophils/100 WBC (Bld) 1 % Normal [facility]; [facility] Work Phone: Comment on above: PATIENT WAS FASTINGP ERFORMED BY: OLIVIA LabVictor Mangela PérezDaakoy2915 [address] RoadDublin [place] [id number] Eosinophils (Bld) [#/Vol] 0.1 10*3/uL Normal 0.0-0.4 [facility]; [facility] Work Phone: Comment on above: PATIENT WAS FASTINGP ERFORMED BY: OLIVIA Teddyangela PérezBhbsdq1359 [address] RoadDublin [place] [id number] Eosinophils/100 WBC (Bld) 3 % Normal [facility]; [facility] Work Phone: Comment on above: PATIENT WAS FASTINGP ERFORMED BY: OLIVIA Teddyangela Btveql99[address] RoadDublin [place] [id number] Erythrocyte distribution width (RBC) [Ratio] 12.7 % Normal 11.7-15.4 [facility]; [facility] Work Phone: Comment on above: PATIENT WAS FASTINGP ERFORMED BY: OLIVIA [facility] Ogtwdd0358 [address] RoadDublin [place] [id number] Hematocrit (Bld) [Volume fraction] 41.6 % Normal 34.0-46.6 [facility]; [facility] Work Phone: Comment on above: PATIENT WAS FASTINGP ERFORMED BY: CB [facility] Hlppio4[address] RoadDublin [place] [id number] Hemoglobin (Bld) [Mass/Vol] 13.4 g/dL Normal 11.1-15.9 [facility]; [facility] Work Phone: Comment on above: PATIENT WAS FASTINGP ERFORMED BY: OLIVIA Salazar6370 [facility] [id number] Immature granulocytes (Bld) [#/Vol] 0.0 10*3/uL Normal 0.0-0.1 [facility]; [facility] Work Phone: Comment on above: PATIENT WAS FASTINGP ERFORMED BY: OLIVIA Teddy Hmcfkl5886 [facility] [id number] Immature granulocytes/100 WBC (Bld) 0 % Normal [facility]; [facility] Work Phone: Comment on above: PATIENT WAS FASTINGP ERFORMED BY: OLIVIA Teddy Cauuxc2612 [facility] [id number] Lymphocytes (Bld) [#/Vol] 1.2 10*3/uL Normal 0.7-3.1 [facility]; [facility] Work Phone: Comment on above: PATIENT WAS FASTINGP ERFORMED BY: OLIVIA Salazar6370 [facility] [id number] Lymphocytes/100 WBC (Bld) 31 % Normal [facility]; [facility] Work Phone: Comment on above: PATIENT WAS FASTINGP ERFORMED BY: Teddy Kpgflz5072 [facility] [id number] MCH (RBC) [Entitic mass] 28.7 pg Normal 26.6-33.0 [facility]; [facility] Work Phone: Comment on above: PATIENT WAS FASTINGP ERFORMED BY: OLIVIA Pérezlin6370 [facility] [id number] MCHC (RBC) [Mass/Vol] 32.2 g/dL Normal 31.5-35.7 [facility] prehensive [facility] Medicine; [facility] Work Phone: Comment on above: PATIENT WAS FASTINGP ERFORMED BY: CB [facility] Kinufm77[address] RoadDublin [place] [id number] MCV (RBC) [Entitic vol] 89 fL Normal 79-97 [facility]; [facility] Work Phone: Comment on above: PATIENT WAS FASTINGP ERFORMED BY: CB [facility] Nhixcw7[address] RoadDublin [place] [id number] Monocytes (Bld) [#/Vol] 0.5 10*3/uL Normal 0.1-0.9 [facility]; [facility] Work Phone: Comment on above: PATIENT WAS FASTINGP ERFORMED BY: CB [facility] Scoaos5[address] RoadDublin [place] [id number] Monocytes/100 WBC (Bld) 13 % Normal [facility]; [facility] Work Phone: Comment on above: PATIENT WAS FASTINGP ERFORMED BY: CB [facility] Valijt7746 [address] RoadDublin [place] [id number] Neutrophils (Bld) [#/Vol] 2.0 10*3/uL Normal 1.4-7.0 [facility]; [facility] Work Phone: Comment on above: PATIENT WAS FASTINGP ERFORMED BY: CB [facility] Qjrrwn3920 [address] RoadDublin [place] [id number] Neutrophils/100 WBC (Bld) 52 % Normal [facility]; [facility] Work Phone: Comment on above: PATIENT WAS FASTINGP ERFORMED BY: CB [facility] Proeil0567 [address] RoadDublin [place] [id number] Platelets (Bld) [#/Vol] 285 10*3/uL Normal 150-450 [facility]; [facility] Work Phone: Comment on above: PATIENT WAS FASTINGP ERFORMED BY: CB [facility] Muvick90[address] RoadDublin [place] [id number] RBC (Bld) [#/Vol] 4.67 10*6/uL Normal 3.77-5.28 Compr ehensive [facility]; [facility] Work Phone: Comment on above: PATIENT WAS FASTINGP ERFORMED BY: OLIVIA [facility] Xvarlz4731 [address] RoadDublin [place] [id number] WBC (Bld) [#/Vol] 3.9 10*3/uL Normal 3.4-10.8 [facility]; [facility] Work Phone: Comment on above: PATIENT WAS FASTINGP ERFORMED BY: OLIVIA [facility] Pkkzfg1341 [address] RoadDublin [place] [id number] LIPID PANEL (63170)Ordered B y: [employer]ing Unit Operator on 03-26-2021 Cholesterol [Mass/Vol] 185 mg/dL Normal 100-199 [facility]; [facility] Work Phone: Comment on above: PATIENT WAS FASTINGP ERFORMED BY: OLIVIA LabBisi PérezEbzcxc3783 [address] RoadDublin [place] [id number] Cholesterol in HDL [Mass/Vol] 51 mg/dL Normal [facility]; [facility] Work Phone: Comment on above: PATIENT WAS FASTINGP ERFORMED BY: OLIVIA LabCoangela Gooffz9516 [address] RoadDublin [place] [id number] Triglyceride [Mass/Vol] 63 mg/dL Normal 0-149 [facility]; [facility] Work Phone: Comment on above: PATIENT WAS FASTINGP ERFORMED BY: OLIVIA [facility] Whfiuy7640 [address] RoadDublin [place] [id number] LIPID PANEL (26134) 12 mg/dL Normal 5-40 [facility]; [facility] Work Phone: Comment on above: PATIENT WAS FASTINGP ERFORMED BY: OLIVIA [facility] Lawpaz4[address] RoadDublin [place] [id number] LIPID PANEL (68831) 122 mg/dL Abnormal 0-99 [facility]; [facility] Work Phone: Comment on above: PATIENT WAS FASTINGP ERFORMED BY: OLIVIA [facility] Awrqzh5037 [address] RoadDublin [place] [id number] LIPID PANEL (36968) 2.4 {ratio} Normal 0.0-3.2 [facility]; [facility] Work Phone: Comment on above: LDL/HDL Ratio Men Wo men 1/2 Avg.Risk 1.0 1.5 Avg.Risk 3.6 3.2 2X Avg.Risk 6.2 5.0 3X Avg.Risk 8.0 6.1 PATIENT WAS FASTINGP ERFORMED BY: OLIVIA [facility] Verrpx3094 [address] RoadDublin [place] [id number] METABOLIC PANEL, COMPREHENSI VE (56564)Ordered By: [employer] Repr[employer]ing Unit Operator on 03-26-2021 Albumin [Mass/Vol] 4.4 g/dL Normal 3.8-4.8 [facility]; [facility] Work Phone: Comment on above: PATIENT WAS FASTINGP ERFORMED BY: OLIVIA [facility] Tvjvoe6862 [address] RoadDublin [place] [id number] Albumin/Globulin [Mass ratio] 1.9 {ratio} Normal 1.2-2.2 [facility]; [facility] Work Phone: Comment on above: PATIENT WAS FASTINGP ERFORMED BY: OLIVIA [facility] Upbmzt24[address] RoadDublin [place] [id number] ALP [Catalytic activity/Vol] 64 U/L Normal 48-121 [facility]; [facility] Work Phone: Comment on above: PATIENT WAS FASTINGP ERFORMED BY: OLIVIA [facility] Xpvkji4654 [address] RoadDublin [place] [id number] ALT [Catalytic activity/Vol] 16 U/L Normal 0-32 [facility]; [facility] Work Phone: Comment on above: PATIENT WAS FASTINGP ERFORMED BY: CB [facility] Aylcxq2404 [address] RoadDublin [place] [id number] AST [Catalytic activity/Vol] 20 U/L Normal 0-40 [facility]; [facility] Work Phone: Comment on above: PATIENT WAS FASTINGP ERFORMED BY: LOIVIA [facility] Tupvnv2637 [address] RoadDublin [place] [id number] Bilirubin [Mass/Vol] 0.5 mg/dL Normal 0.0-1.2 Comp rehensive [facility]; [facility] Work Phone: Comment on above: PATIENT WAS FASTINGP ERFORMED BY: [facility]6370 [facility] [id number] Calcium [Mass/Vol] 9.4 mg/dL Normal 8.7-10.3 [facility]; [facility] Work Phone: Comment on above: PATIENT WAS FASTINGP ERFORMED BY: [facility]6370 [facility] [id number] Chloride [Moles/Vol] 106 mmol/L Normal 96-106 Comp rehensive [facility]; [facility] Work Phone: Comment on above: PATIENT WAS FASTINGP ERFORMED BY: [facility]6370 [facility] [id number] CO2 [Moles/Vol] 25 mmol/L Normal 20-29 [facility]; [facility] Work Phone: Comment on above: PATIENT WAS FASTINGP ERFORMED BY: [facility]6370 [facility] [id number] Creatinine [Mass/Vol] 1.00 mg/dL Normal 0.57-1.00 [facility] prehensive Internal Medicine; [facility] Work Phone: Comment on above: PATIENT WAS FASTINGP ERFORMED BY: [facility]6370 [facility] [id number] GFR/1.73 sq M.predicted among blacks CKD-EPI (S/P/Bld) [Vol rate/Area] 67 mL/min/1.73 Normal [facility]; [facility] Work Phone: Comment on above: [facility] currently reports eGFR in compliance with the current recommendations of the National Kidney Foundation. [facility] will update reporting as new guidelines are published from the NKF-ASN Task force. PATIENT WAS FASTINGP ERFORMED BY: [facility]6370 [facility] [id number] GFR/1.73 sq M.predicted among non-blacks CKD-EPI (S/P/Bld) [Vol rate/Area] 58 mL/min/1.73 Abnormal [facility]; [facility] Work Phone: Comment on above: PATIENT WAS FASTINGP ERFORMED BY: [facility] Xrnwwq2282 [address] RoadDublin [place] [id number] Globulin (S) [Mass/Vol] 2.3 g/dL Normal 1.5-4.5 C omprehens[facility]; [facility] Work Phone: Comment on above: PATIENT WAS FASTINGP ERFORMED BY: [facility] Vpisqo0972 [address] RoadDublin [place] [id number] Glucose [Mass/Vol] 91 mg/dL Normal 65-99 [facility]; [facility] Work Phone: Comment on above: PATIENT WAS FASTINGP ERFORMED BY: [facility] Gibdgx8049 [address] Roadblin [place] [id number] Potassium [Moles/Vol] 4.5 mmol/L Normal 3.5-5.2 [facility] Centerens[facility]; [facility] Work Phone: Comment on above: PATIENT WAS FASTINGP ERFORMED BY: [facility] Ktigok[address] [facility] HospitalDublin [place] [id number] Protein [Mass/Vol] 6.7 g/dL Normal 6.0-8.5 [facility]; [facility] Work Phone: Comment on above: PATIENT WAS FASTINGP ERFORMED BY: [facility] Tjzlvm[address] [facility] HospitalDublin [place] [id number] Sodium [Moles/Vol] 144 mmol/L Normal 134-144 [facility]; [facility] Work Phone: Comment on above: PATIENT WAS FASTINGP ERFORMED BY: [facility] Ixbkiq9230 [address] RoadDublin [place] [id number] Urea nitrogen [Mass/Vol] 18 mg/dL Normal 8-27 [facility]; [facility] Work Phone: Comment on above: PATIENT WAS FASTINGP ERFORMED BY: [facility] Zwkcer[address] [facility]in [place] [id number] Urea nitrogen/Creatinine [Mass ratio] 18 mg/mg Normal 12- [facility]; [facility] Work Phone: Comment on above: PATIENT WAS FASTINGP ERFORMED BY: CB [facility] Wvzpzh[address] [facility]in [place] [id number] TSH (85077)Ordered By: Syste m [employer] Scm Consultant on 03-26-2021 TSH Qn 0.543 {uIU/mL} Normal 0.450-4.50 0 [facility]; [facility] Work Phone: Comment on above: PATIENT WAS FASTINGP ERFORMED BY: [facility] Kcxdws0539 [facility] [id number] HgA1C , Office ([id number])Ordere d By: Sakina Kelsey on 05-01-2020 HbA1c (Bld) [Mass fraction] 5.6 % Normal 4.6 - 7.1 [facility] Work Phone: CALCIFIDIOL ([id number]) VIT D 25 Ordered By: Shotgun [employer] Reprinting Unit Operator on 04-17-2020 25-Hydroxyvitamin D2+25-Hydroxyvitamin D3 [Mass/Vol] 48.2 ng/mL Normal 30.0-100.0 [facility] Work Phone: Comment on above: Vitamin D deficiency has been defined by the [place] of[place] and an Endocrine Society practice guideline as alevel of serum 25-OH vitamin D less than 20 ng/mL (1,2).The Endocrine Society went on to further define vitamin Dinsufficiency as a level between 21 and 29 ng/mL (2).1. IOM ([place]). 2010. Dietary reference intakes for calcium and D. [place]: The National Academies Press.2. Andrey MF, Dago [place], Cuauhtemoc MOSS, et al. Evaluation, treatment, and prevention of vitamin D deficiency: an Endocrine Society clinical practice guideline. JCEM. 2010; 96(7):1911-30. Test(s) 671464-ZKF-Q ; 143706-ECX-Q; 240403-HCH-A; 352785-Qpesxqwmiiffc; 191940-Fbsznkwiewl, Total; 402903-YKU-M (Total);520890-Abjgf LDL-P; 295600-EFI Size; 381939-TM-RQ Scorewas developed and its performance characteristics determinedby [employer]. It has not been cleared or approved by the Foodand Drug Administration.PATIENT WAS FASTINGPERFORMED BY: [employer] [address] [id number] BY: [employer] Fgfspo3605 [facility] [id number] CBC W/AUTO DIFF WBC (91178)O rdered By: Shotgun [employer] Reprinting Unit Operator on 04-17-2020 Basophils (Bld) [#/Vol] 0.0 {x10E3/uL} Normal 0.0-0.2 [facility] Work Phone: Comment on above: Test(s) 859646-SKZ-V ; 346197-HMY-H; 866051-XVW-H; 028705-Xhkcmcmhbtejb; 646100-Ebjcgkiyhih, Total; 873778-OSP-C (Total);772833-Oovgm LDL-P; 438250-DBC Size; 299352-GU-KM Scorewas developed and its performance characteristics determinedby [employer]. It has not been cleared or approved by the Foodand Drug Administration.PATIENT WAS FASTINGPERFORMED BY: [employer] [address] [id number] BY: [employer]6370 [facility] [id number] Basophils (Bld) [#/Vol] 0.0 10*3/uL Normal 0.0-0.2 [facility]; [facility] Work Phone: Comment on above: Test(s) 501938-YCN-I ; 601091-DOP-X; 371398-PFU-K; 013905-Byktxfkteqfun; 281081-Ccysonyebqe, Total; 563971-PYE-L (Total);012176-Syqas LDL-P; 470036-BAE Size; 342710-UL-US Scorewas developed and its performance characteristics determinedby [employer]. It has not been cleared or approved by the Foodand Drug Administration.PATIENT WAS FASTINGPERFORMED BY: [employer] Rica[address] [id number] BY: [employer] RicaPenn Medicine Princeton Medical CenterJtcsvu8674 [facility] [id number] Basophils/100 WBC (Bld) 1 % Normal C ompmercy [facility]erm[facility] hospitalensive [facility] Work Phone: Comment on above: Test(s) 207612-FGY-C ; 281476-KWN-H; 857532-EKJ-C; 912461-Yduotnrotdqgb; 974781-Efzmjjxduxg, Total; 660598-ZQL-V (Total);931811-Omdwp LDL-P; 096189-JXZ Size; 799046-JD-DM Scorewas developed and its performance characteristics determinedby [employer]. It has not been cleared or approved by the Foodand Drug Administration.PATIENT WAS FASTINGPERFORMED BY: [employer] [address] [id number] BY: [employer]70 [facility] [id number] Eosinophils (Bld) [#/Vol] 0.1 {x10E3/uL} Normal 0.0-0.4 [facility] Work Phone: Comment on above: Test(s) 370466-JTE-B ; 674509-STH-P; 168550-OVD-T; 159822-Bwfktnspohecs; 812347-Cdjbiwyrxhx, Total; 887577-QBW-I (Total);719826-Hptff LDL-P; 338472-CDM Size; 818794-CI-DA Scorewas developed and its performance characteristics determinedby [employer]. It has not been cleared or approved by the Foodand Drug Administration.PATIENT WAS FASTINGPERFORMED BY: [employer] Rica[address] [id number] BY: [employer] RicaPenn Medicine Princeton Medical CenterHqkrbj8120 [facility] [id number] Eosinophils (Bld) [#/Vol] 0.1 10*3/uL Normal 0.0-0.4 [facility]; [facility] Work Phone: Comment on above: Test(s) 854069-EKO-V ; 649660-PRB-W; 911178-VMU-X; 345780-Btpgwjhabyyqc; 717015-Qyfarmkhdmb, Total; 853255-ZXR-U (Total);252032-Fjhaf LDL-P; 923299-REK Size; 236713-TH-IG Scorewas developed and its performance characteristics determinedby [employer]. It has not been cleared or approved by the Foodand Drug Administration.PATIENT WAS FASTINGPERFORMED BY: [employer] [address] [id number] BY: Front Row70 IMayGouAtrium Health Kannapolis [id number] Eosinophils/100 WBC (Bld) 2 % Normal [facility] Work Phone: Comment on above: Test(s) 559805-NCZ-K ; 773730-TCY-H; 547578-ADP-D; 282206-Hpmyfwuagjlzo; 632057-Gpgeocrlwpd, Total; 339228-CYG-P (Total);351343-Vzrxv LDL-P; 092678-QVC Size; 788731-XS-VZ Scorewas developed and its performance characteristics determinedby [employer]. It has not been cleared or approved by the Foodand Drug Administration.PATIENT WAS FASTINGPERFORMED BY: [employer] [address] [id number] BY: [employer]6370 [facility]aterNorth[facility] Center [id number] Erythrocyte distribution width (RBC) [Ratio] 13.6 % Normal 11.7-15.4 [facility] Work Phone: Comment on above: Test(s) 580684-ZLL-L ; 277305-KPL-K; 065909-UBV-B; 831873-Zfpxioncsoakx; 803408-Eglmvtloewv, Total; 584437-VUH-J (Total);019849-Byucv LDL-P; 157186-WAI Size; 802573-EB-HQ Scorewas developed and its performance characteristics determinedby [employer]. It has not been cleared or approved by the Foodand Drug Administration.PATIENT WAS FASTINGPERFORMED BY: [employer] [address] [id number] BY: [employer] Ztbenk5269 [facility] [id number] Hematocrit (Bld) [Volume fraction] 35.6 % Normal 34.0-46.6 [facility] Work Phone: Comment on above: Test(s) 632938-RBM-E ; 181544-IJH-U; 221644-CRZ-T; 219222-Dehxongsnkauy; 753107-Pvrpcmnmdmy, Total; 682838-ZKB-A (Total);739495-Laroj LDL-P; 508259-NOR Size; 055968-CD-EL Scorewas developed and its performance characteristics determinedby [employer]. It has not been cleared or approved by the Foodand Drug Administration.PATIENT WAS FASTINGPERFORMED BY: [employer] [address] [id number] BY: GenerationStation6370 [facility] [id number] Hemoglobin (Bld) [Mass/Vol] 12.0 g/dL Normal 11.1-15.9 [facility] Work Phone: Comment on above: Test(s) 771680-RLP-U ; 007191-UHW-N; 424213-LBA-D; 907348-Wokxvvkcojbki; 743053-Ysxdjayjtad, Total; 575490-SFR-A (Total);949968-Wvcps LDL-P; 949415-MQP Size; 067265-BV-LR Scorewas developed and its performance characteristics determinedby [employer]. It has not been cleared or approved by the Foodand Drug Administration.PATIENT WAS FASTINGPERFORMED BY: [employer] [address] [id number] BY: [employer] Commercial Realtylin6370 [facility] [id number] Immature granulocytes (Bld) [#/Vol] 0.0 {x10E3/uL} Normal 0.0-0.1 [facility] Work Phone: Comment on above: Test(s) 311669-TYK-W ; 184536-BQO-K; 787072-ICT-W; 334525-Mcxoozbhwjzrv; 109016-Guqldsyfqzp, Total; 490844-WFO-A (Total);845281-Uyemk LDL-P; 338971-EAW Size; 547259-VU-UD Scorewas developed and its performance characteristics determinedby [employer]. It has not been cleared or approved by the Foodand Drug Administration.PATIENT WAS FASTINGPERFORMED BY: [employer] [address] [id number] BY: [employer] Nsmsen1035 [facility] [id number] Immature granulocytes (Bld) [#/Vol] 0.0 10*3/uL Normal 0.0-0.1 [facility]; [facility] Work Phone: Comment on above: Test(s) 169273-GAZ-O ; 958718-KGI-L; 623377-YEZ-P; 706417-Pdodfqsbbtujy; 785484-Ywrtqwvaifn, Total; 807256-SPD-L (Total);532090-Banmu LDL-P; 662068-VWP Size; 514385-KG-OT Scorewas developed and its performance characteristics determinedby [employer]. It has not been cleared or approved by the Foodand Drug Administration.PATIENT WAS FASTINGPERFORMED BY: [employer] [address] [id number] BY: [employer] Auciyd1300 [facility] [id number] Immature granulocytes/100 WBC (Bld) 0 % Normal [facility] Work Phone: Comment on above: Test(s) 895783-VEM-N ; 811954-EAE-L; 279797-CJP-K; 624895-Yjuunknaomnev; 416933-Kuaavjojzdf, Total; 405101-QSW-D (Total);521299-Geena LDL-P; 985000-JSW Size; 233362-VD-VR Scorewas developed and its performance characteristics determinedby [employer]. It has not been cleared or approved by the Foodand Drug Administration.PATIENT WAS FASTINGPERFORMED BY: Kutuan Sslrtazkqr[address] [id number] BY: [employer] Fgwawb1816 [facility] [id number] Lymphocytes (Bld) [#/Vol] 1.5 {x10E3/uL} Normal 0.7-3.1 [facility] Work Phone: Comment on above: Test(s) 187012-YLD-L ; 754272-WBD-L; 433651-XJX-K; 533746-Qnwoylobrypvh; 865199-Xjpwbaywwix, Total; 301556-VCV-T (Total);638248-Ylsyu LDL-P; 325103-NVX Size; 735275-MN-YD Scorewas developed and its performance characteristics determinedby [employer]. It has not been cleared or approved by the Foodand Drug Administration.PATIENT WAS FASTINGPERFORMED BY: Torrent LoadingSystems[address] [id number] BY: GenerationStation6370 [facility] [id number] Lymphocytes (Bld) [#/Vol] 1.5 10*3/uL Normal 0.7-3.1 [facility]; [facility] Work Phone: Comment on above: Test(s) 459440-NAR-V ; 465768-HTT-D; 318080-MYV-L; 478897-Hmjitpiepmanz; 103391-Jfoxbqiagri, Total; 137622-BDN-N (Total);382163-Rdynw LDL-P; 376063-QQS Size; 912627-RR-QK Scorewas developed and its performance characteristics determinedby [employer]. It has not been cleared or approved by the Foodand Drug Administration.PATIENT WAS FASTINGPERFORMED BY: [employer] [address] [id number] BY: Profectus BiosciencesPenn Medicine Princeton Medical CenterSvfwgq9591 [facility] [id number] Lymphocytes/100 WBC (Bld) 31 % Normal [facility] Work Phone: Comment on above: Test(s) 597457-SLR-K ; 823802-YWF-W; 490975-FWU-N; 923048-Ivtbcgvxznoav; 466256-Jbbelptvjcq, Total; 549414-WER-L (Total);118978-Serwl LDL-P; 176407-HFI Size; 801061-RV-YS Scorewas developed and its performance characteristics determinedby [employer]. It has not been cleared or approved by the Foodand Drug Administration.PATIENT WAS FASTINGPERFORMED BY: [employer] [address] [id number] BY: Front Row70 [facility] [id number] MCH (RBC) [Entitic mass] 31.3 pg Normal 26.6-33.0 [facility] Internal Medicine Work Phone: Comment on above: Test(s) 533210-NGI-D ; 885167-FQL-F; 512494-RTW-Z; 652272-Akfhpmgqaejuw; 020661-Ikhmtpxunqg, Total; 469293-VUH-P (Total);938827-Fahhv LDL-P; 023516-GDB Size; 948115-YE-DO Scorewas developed and its performance characteristics determinedby [employer]. It has not been cleared or approved by the Foodand Drug Administration.PATIENT WAS FASTINGPERFORMED BY: [employer] [address] [id number] BY: [employer] Nouglc8179 [facility] [id number] MCHC (RBC) [Mass/Vol] 33.7 g/dL Normal 31.5-35.7 [facility] Internal Medicine Work Phone: Comment on above: Test(s) 791624-EVB-R ; 838567-BQI-C; 988118-OWC-K; 857032-Vyvmetrlfrqcv; 932444-Qzsppzyvmme, Total; 058778-NJJ-M (Total);106837-Qtoxu LDL-P; 887660-CYG Size; 397985-CQ-ID Scorewas developed and its performance characteristics determinedby [employer]. It has not been cleared or approved by the Foodand Drug Administration.PATIENT WAS FASTINGPERFORMED BY: Kutuan[address] [id number] BY: Usbek [employer] Rica Wrvjjh24[address] YunnoAtrium Health [facility] [id number] MCV (RBC) [Entitic vol] 93 fL Normal 79-97 [facility] Internal [facility] Work Phone: Comment on above: Test(s) 265358-THW-P ; 483069-KIM-A; 272762-YYL-L; 771318-Dggvdwcefckii; 577731-Uvpmemrljvp, Total; 864359-ORM-Q (Total);801187-Ixxgo LDL-P; 067279-GGT Size; 515454-VQ-XK Scorewas developed and its performance characteristics determinedby [employer]. It has not been cleared or approved by the Foodand Drug Administration.PATIENT WAS FASTINGPERFORMED BY: [employer] [address] [id number] BY: GenerationStation6370 [facility] [id number] Monocytes (Bld) [#/Vol] 0.7 {x10E3/uL} Normal 0.1-0.9 [facility] Work Phone: Comment on above: Test(s) 549667-LRF-O ; 073051-MZD-H; 392086-JMA-T; 140399-Idiqekhtigybf; 906539-Otqesppijbp, Total; 921498-TYP-O (Total);976754-Xaysj LDL-P; 010963-CDP Size; 038181-TZ-PT Scorewas developed and its performance characteristics determinedby [employer]. It has not been cleared or approved by the Foodand Drug Administration.PATIENT WAS FASTINGPERFORMED BY: [employer] [address] [id number] BY: Usbek & RicaPenn Medicine Princeton Medical CenterXhvsky7221 [facility] [id number] Monocytes (Bld) [#/Vol] 0.7 10*3/uL Normal 0.1-0.9 [facility]; [facility] Work Phone: Comment on above: Test(s) 122112-PCF-B ; 011945-RLE-S; 111437-NXT-U; 969668-Nzzenzpncwjkr; 953479-Ktnrmntoxho, Total; 112673-ITM-V (Total);403914-Idccy LDL-P; 430954-LRO Size; 858949-WD-PQ Scorewas developed and its performance characteristics determinedby [employer]. It has not been cleared or approved by the Foodand Drug Administration.PATIENT WAS FASTINGPERFORMED BY: [employer] [address] [id number] BY: [employer] Dzxuon3729 [facility] [id number] Monocytes/100 WBC (Bld) 14 % Normal [facility] Internal Medicine Work Phone: Comment on above: Test(s) 421120-WPB-A ; 470965-OOT-J; 611723-PMK-W; 012312-Ujgsowaoecdvn; 761789-Qhpwvzrfcnj, Total; 953011-EAZ-W (Total);794264-Hwldk LDL-P; 732258-AKU Size; 455243-UB-FI Scorewas developed and its performance characteristics determinedby [employer]. It has not been cleared or approved by the Foodand Drug Administration.PATIENT WAS FASTINGPERFORMED BY: [employer] [address] [id number] BY: [employer] Pjisyd8774 [facility] [id number] Neutrophils (Bld) [#/Vol] 2.5 {x10E3/uL} Normal 1.4-7.0 [facility] Work Phone: Comment on above: Test(s) 065096-ANJ-B ; 070515-CCM-D; 140535-SPM-I; 786261-Rztxhaqhmcsfd; 127466-Khmwrjvdodm, Total; 766044-FFZ-Z (Total);443013-Oqdlj LDL-P; 980299-SBA Size; 553739-ML-BA Scorewas developed and its performance characteristics determinedby [employer]. It has not been cleared or approved by the Foodand Drug Administration.PATIENT WAS FASTINGPERFORMED BY: Torrent LoadingSystems[address] [id number] BY: [employer]bek [employer] Rica Uezabv5965 [facility] [id number] Neutrophils (Bld) [#/Vol] 2.5 10*3/uL Normal 1.4-7.0 [facility]; [facility] Work Phone: Comment on above: Test(s) 944356-SHQ-D ; 242499-VYJ-W; 112368-HYF-V; 275732-Fyrohjqwahybk; 156892-Xzlbcwaqvyh, Total; 796535-HOB-U (Total);839834-Ocdlf LDL-P; 155518-RSK Size; 631396-OR-FM Scorewas developed and its performance characteristics determinedby [employer]. It has not been cleared or approved by the Foodand Drug Administration.PATIENT WAS FASTINGPERFORMED BY: Torrent LoadingSystems[address] [id number] BY: GenerationStation6370 [address] YunnoAtrium Health [facility] [id number] Neutrophils/100 WBC (Bld) 52 % Normal [facility] Work Phone: Comment on above: Test(s) 308946-TOI-A ; 195916-NXH-U; 786334-KOZ-I; 596348-Vqkyvqrvllpya; 974201-Plsnpvttuow, Total; 308827-NXP-W (Total);148617-Vrgip LDL-P; 661644-YXI Size; 751370-SV-RW Scorewas developed and its performance characteristics determinedby [employer]. It has not been cleared or approved by the Foodand Drug Administration.PATIENT WAS FASTINGPERFORMED BY: [employer] [address] [id number] BY: Usbek & RicaPenn Medicine Princeton Medical CenterRjrabf8520 [facility] [id number] Platelets (Bld) [#/Vol] 229 {x10E3/uL} Normal 150-450 [facility] Work Phone: Comment on above: Test(s) 437885-FBA-Y ; 423382-NVP-G; 886298-FNX-B; 917242-Vdstynhowqmfd; 807441-Ypzaktgfmms, Total; 155922-PNU-L (Total);973062-Fwzws LDL-P; 608440-JHT Size; 084108-DU-RS Scorewas developed and its performance characteristics determinedby [employer]. It has not been cleared or approved by the Foodand Drug Administration.PATIENT WAS FASTINGPERFORMED BY: [employer] [address] [id number] BY: Front Row70 [facility] [id number] Platelets (Bld) [#/Vol] 229 10*3/uL Normal 150-450 [facility]; [facility] Work Phone: Comment on above: Test(s) 210392-YLA-U ; 188455-KGA-I; 171555-EQZ-U; 989323-Qoeslwvddyhsz; 678215-Dmsomrlebdb, Total; 667171-MNC-D (Total);872237-Ecpep LDL-P; 505785-YCJ Size; 464374-VC-AI Scorewas developed and its performance characteristics determinedby [employer]. It has not been cleared or approved by the Foodand Drug Administration.PATIENT WAS FASTINGPERFORMED BY: [employer] [address] [id number] BY: [employer] Biwhhv0392 [facility] [id number] RBC (Bld) [#/Vol] 3.83 {x10E6/uL} Normal 3.77-5.28 [facility] Internal Medicine Work Phone: Comment on above: Test(s) 900287-AVH-H ; 535591-PHW-V; 296169-GVA-T; 128412-Yrxhaejttydee; 536185-Cozcksehzsa, Total; 073707-BIK-H (Total);617884-Cwikx LDL-P; 038919-MNV Size; 010753-SF-BG Scorewas developed and its performance characteristics determinedby [employer]. It has not been cleared or approved by the Foodand Drug Administration.PATIENT WAS FASTINGPERFORMED BY: Torrent LoadingSystems[address] [id number] BY: [employer] Rbkjwu4021 [facility] [id number] RBC (Bld) [#/Vol] 3.83 10*6/uL Normal 3.77-5.28 [facility] ehensive Internal Medicine; [facility] Internal Medicine Work Phone: Comment on above: Test(s) 366022-MGD-Q ; 503277-SPG-K; 225676-OLJ-W; 523497-Mdnvxhfullndj; 814849-Dgbawslvkjv, Total; 772348-EFX-C (Total);405709-Jpkmy LDL-P; 865210-LUJ Size; 771769-AZ-VA Scorewas developed and its performance characteristics determinedby [employer]. It has not been cleared or approved by the Foodand Drug Administration.PATIENT WAS FASTINGPERFORMED BY: Torrent LoadingSystems[address] [id number] BY: GenerationStation6370 [facility] [id number] WBC (Bld) [#/Vol] 4.7 {x10E3/uL} Normal 3.4-10.8 [facility] Internal Medicine Work Phone: Comment on above: Test(s) 976726-TCA-Y ; 236048-LWH-W; 753307-XKM-M; 343567-Fmrvhlikvzimq; 057314-Jadzlysyjee, Total; 730427-HHZ-X (Total);917966-Cgmyn LDL-P; 230042-HRR Size; 179578-MB-KO Scorewas developed and its performance characteristics determinedby Ca[employer]. It has not been cleared or approved by the Foodand Drug Administration.PATIENT WAS FASTINGPERFORMED BY: [employer] [facility] Sqyzxobckk1858 [facility] [id number] BY: [employer] Robtdn1852 [facility] [id number] WBC (Bld) [#/Vol] 4.7 10*3/uL Normal 3.4-10.8 [facility] Internal Medicine; [facility] Work Phone: Comment on above: Test(s) 322414-HRU-S ; 845058-UFB-X; 705848-ELC-W; 422140-Swcfkoxuqnufp; 377111-Lcomycoyabo, Total; 020556-FXM-E (Total);809219-Scyfq LDL-P; 543960-MQU Size; 194751-HK-FG Scorewas developed and its performance characteristics determinedby Ca[employer]. It has not been cleared or approved by the Foodand Drug Administration.PATIENT WAS FASTINGPERFORMED BY: [employer] [facility] [id number] BY: Front Row70 [employer]fiKno [facility] [id number] METABOLIC PANEL, COMPREHENSI VE (62301)Ordered By: [employer]ing Unit Operator on 04-17-2020 Albumin [Mass/Vol] 4.0 g/dL Normal 3.8-4.8 [facility] Internal Medicine Work Phone: Comment on above: Test(s) 557800-ODM-W ; 502862-IBL-Y; 788024-EDK-U; 492553-Hktqspieyajch; 920012-Dijbkbrftgh, Total; 555359-UDC-X (Total);029670-Jmask LDL-P; 035210-LRL Size; 916674-GN-RH Scorewas developed and its performance characteristics determinedby [employer]. It has not been cleared or approved by the Foodand Drug Administration.PATIENT WAS FASTINGPERFORMED BY: Torrent LoadingSystems[address] [id number] BY: GenerationStation6370 [address] YunnoAt[facility] Health [facility] [id number] Albumin/Globulin [Mass ratio] 1.5 {ratio} Normal 1.2-2.2 [facility] Internal Medicine Work Phone: Comment on above: Test(s) 985196-XED-O ; 324238-KNN-I; 608889-VDP-M; 141982-Uufosxfjmcnoz; 023072-Llpdtukzkzs, Total; 928963-GFA-I (Total);399430-Ktler LDL-P; 863668-UGS Size; 859760-ZA-NH Scorewas developed and its performance characteristics determinedby Ca[employer]. It has not been cleared or approved by the Foodand Drug Administration.PATIENT WAS FASTINGPERFORMED BY: Usbek & Rica[address] [id number] BY: Usbek & RicaPenn Medicine Princeton Medical CenterManhia7964 [facility] [id number] ALP [Catalytic activity/Vol] 123 [iU]/L Abnormal 39-117 [facility] Work Phone: Comment on above: Test(s) 535608-BPY-C ; 962126-AJG-Y; 161693-ZTR-L; 713499-Iyvgocuyewpqp; 458477-Pejnzaedwmk, Total; 365408-JDM-O (Total);001134-Vwfvr LDL-P; 364837-JNU Size; 885202-IK-IM Scorewas developed and its performance characteristics determinedby Ca[employer]. It has not been cleared or approved by the Foodand Drug Administration.PATIENT WAS FASTINGPERFORMED BY: Usbek & Rica[address] [id number] BY: Usbek & RicaWilliam [place] 6025870 [facility] [id number] ALP [Catalytic activity/Vol] 123 U/L Abnormal 39-117 [facility]; [facility] Work Phone: Comment on above: Test(s) 482896-RXO-L ; 888517-OBB-X; 231238-QZW-P; 349978-Zkjgpatqmfied; 853481-Sdkbimmlbnm, Total; 056244-ISY-Y (Total);210517-Hlynq LDL-P; 341472-RWE Size; 229827-IX-ID Scorewas developed and its performance characteristics determinedby Ca[employer]. It has not been cleared or approved by the Foodand Drug Administration.PATIENT WAS FASTINGPERFORMED BY: Usbek & Rica[address] [id number] BY: Usbek & RicaWilliam [place] 6025870 [facility] [id number] ALT [Catalytic activity/Vol] 10 [iU]/L Normal 0-32 [facility] Work Phone: Comment on above: Test(s) 015240-CAO-B ; 335065-WSF-E; 131647-GIQ-X; 039015-Wuynwmgtrvzbs; 199958-Ulepxgpezad, Total; 033139-ZUV-W (Total);554528-Gbzxm LDL-P; 507522-EPP Size; 515776-WQ-JW Scorewas developed and its performance characteristics determinedby Ca[employer]. It has not been cleared or approved by the Foodand Drug Administration.PATIENT WAS FASTINGPERFORMED BY: Torrent LoadingSystems[address] [id number] BY: Front Row70 [facility] [id number] ALT [Catalytic activity/Vol] 10 U/L Normal 0-32 [facility]; [facility] Work Phone: Comment on above: Test(s) 477312-KGZ-U ; 028050-DTN-D; 994415-IVO-Y; 389306-Paeobfhrcgavc; 620919-Trtvdirsazu, Total; 950038-WMH-S (Total);367853-Hlejo LDL-P; 496028-QFU Size; 230663-QH-HA Scorewas developed and its performance characteristics determinedby Ca[employer]. It has not been cleared or approved by the Foodand Drug Administration.PATIENT WAS FASTINGPERFORMED BY: Torrent LoadingSystems[address] [id number] BY: [employer] Ggkmqn1502 [facility] [id number] AST [Catalytic activity/Vol] 12 [iU]/L Normal 0-40 [facility] Work Phone: Comment on above: Test(s) 987832-OBR-O ; 077268-BMD-Y; 066879-XNA-J; 788090-Blowgyegqazfb; 250663-Lhsouuwisgp, Total; 531168-LBG-X (Total);908932-Xstdk LDL-P; 395738-ILZ Size; 245722-XA-RA Scorewas developed and its performance characteristics determinedby Ca[employer]. It has not been cleared or approved by the Foodand Drug Administration.PATIENT WAS FASTINGPERFORMED BY: Usbek & Rica[address] [id number] BY: [employer] Pjypyy6049 [address] YunnoAtrium Health Kannapolis [id number] AST [Catalytic activity/Vol] 12 U/L Normal 0-40 [facility]; [facility] Work Phone: Comment on above: Test(s) 630846-XOW-B ; 669768-UGM-F; 801497-MMO-D; 280856-Tanttnqohzrjk; 905475-Dgbtvjwmzau, Total; 723584-YZU-W (Total);308745-Eklvj LDL-P; 972506-IWP Size; 564656-LU-NO Scorewas developed and its performance characteristics determinedby Ca[employer]fly. It has not been cleared or approved by the Foodand Drug Administration.PATIENT WAS FASTINGPERFORMED BY: [employer] [address] [id number] BY: IG [employer]uit[employer] [facility]CamSelect [facility] [id number] Bilirubin [Mass/Vol] 1.1 mg/dL Normal 0.0-1.2 [facility] Internal Medicine Work Phone: Comment on above: Test(s) 198317-KSH-Y ; 234450-OSY-Y; 331471-EFO-L; 392027-Zsmxykwalhfki; 499972-Qzpmdfharkp, Total; 674374-YTU-U (Total);533872-Ekwsc LDL-P; 441747-ODR Size; 727233-GM-PX Scorewas developed and its performance characteristics determinedby Ca[employer]. It has not been cleared or approved by the Foodand Drug Administration.PATIENT WAS FASTINGPERFORMED BY: Usbek & Rica[address] [id number] BY: Usbek [employer] Rica Alopml9803 [facility] [id number] Calcium [Mass/Vol] 9.5 mg/dL Normal 8.7-10.3 [facility] Internal Medicine Work Phone: Comment on above: Test(s) 072847-GQJ-W ; 281689-LDP-E; 528043-WLY-Z; 526479-Sqqrurjhcxfyj; 304031-Fswdgnofowj, Total; 517106-FGA-P (Total);551922-Jhpiw LDL-P; 962551-EUQ Size; 568896-LP-CW Scorewas developed and its performance characteristics determinedby Ca[employer]. It has not been cleared or approved by the Foodand Drug Administration.PATIENT WAS FASTINGPERFORMED BY: Torrent LoadingSystems[address] [id number] BY: Front Row70 [facility] [id number] Chloride [Moles/Vol] 103 mmol/L Normal 96-106 [facility] Internal Medicine Work Phone: Comment on above: Test(s) 585732-SIN-L ; 783412-WIE-X; 499787-GWM-H; 385173-Xicxdevsmchlk; 657047-Sgjjuyhbiit, Total; 960071-BZF-X (Total);617816-Kvfuk LDL-P; 870565-ADJ Size; 741414-AE-MB Scorewas developed and its performance characteristics determinedby Ca[employer]. It has not been cleared or approved by the Foodand Drug Administration.PATIENT WAS FASTINGPERFORMED BY: [employer] [address] [id number] BY: GenerationStation6370 [facility] [id number] CO2 [Moles/Vol] 27 mmol/L Normal 20-29 [facility] Internal Medicine Work Phone: Comment on above: Test(s) 158899-DYA-Y ; 555023-NVO-H; 764008-RGF-G; 032589-Gghixzoyxjdld; 085731-Mfssdxmqliq, Total; 388165-QQE-B (Total);719514-Bvivw LDL-P; 271193-NWM Size; 469566-JF-VQ Scorewas developed and its performance characteristics determinedby Ca[employer]. It has not been cleared or approved by the Foodand Drug Administration.PATIENT WAS FASTINGPERFORMED BY: [employer] [address] [id number] BY: Front Row70 [facility] [id number] Creatinine [Mass/Vol] 0.89 mg/dL Normal 0.57-1.00 [facility] Internal Medicine Work Phone: Comment on above: Test(s) 383778-SHC-I ; 711497-PAP-V; 473589-HAZ-N; 273877-Idvhiarllvwjn; 621680-Hhythmxdfkn, Total; 904032-SJO-H (Total);488592-Dcxtx LDL-P; 105957-HDU Size; 800595-KZ-XE Scorewas developed and its performance characteristics determinedby Ca[employer]. It has not been cleared or approved by the Foodand Drug Administration.PATIENT WAS FASTINGPERFORMED BY: [employer] [address] [id number] BY: GenerationStation6370 [facility] [id number] GFR/1.73 sq M predicted among blacks CKD-EPI (S/P/Bld) [Vol rate/Area] 78 mL/min/1.73 Normal [facility] Internal Medicine Work Phone: Comment on above: Test(s) 862715-YHJ-H ; 581782-XDI-J; 895945-RHF-I; 372968-Vtnkdjggzqogv; 198630-Dforzwgbsve, Total; 464979-QLA-M (Total);800981-Mqofe LDL-P; 606282-UCG Size; 173370-WB-FQ Scorewas developed and its performance characteristics determinedby Ca[employer]. It has not been cleared or approved by the Foodand Drug Administration.PATIENT WAS FASTINGPERFORMED BY: [employer] [address] [id number] BY: [employer] Ungvvv1652 [facility] [id number] GFR/1.73 sq M predicted among non-blacks CKD-EPI (S/P/Bld) [Vol rate/Area] 67 mL/min/1.73 Normal [facility] Work Phone: Comment on above: Test(s) 393982-GJX-H ; 578485-DDD-J; 557352-MWN-D; 008387-Bpjfkmcscxbvi; 933615-Fvcfvaufxbu, Total; 619663-JCX-Y (Total);500905-Grhlp LDL-P; 150456-RYO Size; 631071-HN-PS Scorewas developed and its performance characteristics determinedby [employer]. It has not been cleared or approved by the Foodand Drug Administration.PATIENT WAS FASTINGPERFORMED BY: Torrent LoadingSystems[address] [id number] BY: Front Row70 [facility] [id number] Globulin (S) [Mass/Vol] 2.6 g/dL Normal 1.5-4.5 [facility] Internal Medicine Work Phone: Comment on above: Test(s) 526567-LJK-O ; 538860-ICD-N; 813146-ZUM-M; 153308-Xvhmnqnxcrirz; 781874-Vvmnaqevvbe, Total; 681828-IPZ-I (Total);672102-Ztdto LDL-P; 394669-NGX Size; 920062-LR-WJ Scorewas developed and its performance characteristics determinedby [employer]. It has not been cleared or approved by the Foodand Drug Administration.PATIENT WAS FASTINGPERFORMED BY: Torrent LoadingSystems[address] [id number] BY: GenerationStation6370 [place] [facility] [id number] Glucose [Mass/Vol] 104 mg/dL Abnormal 65-99 [facility] Internal Medicine Work Phone: Comment on above: Test(s) 661663-LFX-U ; 113018-EKZ-L; 519221-YFN-U; 360787-Fptdufdmtfhqe; 849564-Pnjrgdkdxjo, Total; 532150-XEC-H (Total);589714-Rmydx LDL-P; 854940-MOT Size; 642744-QH-LN Scorewas developed and its performance characteristics determinedby [employer]. It has not been cleared or approved by the Foodand Drug Administration.PATIENT WAS FASTINGPERFORMED BY: [employer] [address] [id number] BY: IG [employer]uit[employer]6370 [facility] [id number] Potassium [Moles/Vol] 4.7 mmol/L Normal 3.5-5.2 [facility] Internal Medicine Work Phone: Comment on above: Test(s) 126257-UYZ-F ; 879929-KTL-Z; 533165-BUT-X; 001312-Tjkhpjsyhdhdt; 308761-Wzjqwiifuby, Total; 609831-DQZ-L (Total);059813-Xnbqx LDL-P; 863062-HIG Size; 158173-JC-EZ Scorewas developed and its performance characteristics determinedby [employer]. It has not been cleared or approved by the Foodand Drug Administration.PATIENT WAS FASTINGPERFORMED BY: [employer] [address] [id number] BY: [employer]6370 [facility] [id number] Protein [Mass/Vol] 6.6 g/dL Normal 6.0-8.5 [facility] Internal Medicine Work Phone: Comment on above: Test(s) 424962-KLZ-A ; 415300-YOG-W; 626293-ELG-E; 035702-Awvnxzkncqgar; 253103-Lmzaxcynqyd, Total; 358109-NYJ-C (Total);087675-Wgnrx LDL-P; 540168-DAQ Size; 193877-UQ-DN Scorewas developed and its performance characteristics determinedby [employer]. It has not been cleared or approved by the Foodand Drug Administration.PATIENT WAS FASTINGPERFORMED BY: [employer] [address] [id number] BY: [employer]6370 [facility] [id number] Sodium [Moles/Vol] 143 mmol/L Normal 134-144 [facility] Internal Medicine Work Phone: Comment on above: Test(s) 817551-LWO-V ; 769882-OUE-S; 262101-DXE-H; 709572-Tpuihiklcvvwh; 883717-Qnmqtgjrvtp, Total; 779654-JRA-I (Total);940582-Thsur LDL-P; 069881-CHB Size; 374697-OT-BX Scorewas developed and its performance characteristics determinedby [employer]. It has not been cleared or approved by the Foodand Drug Administration.PATIENT WAS FASTINGPERFORMED BY: Torrent LoadingSystems[address] [id number] BY: Front Row70 [facility] [id number] Urea nitrogen [Mass/Vol] 12 mg/dL Normal 8- [facility] Internal Medicine Work Phone: Comment on above: Test(s) 090690-WUH-V ; 827727-OXF-G; 787956-KSS-E; 903666-Hzwusebebplez; 130533-Lbtktgsbvfm, Total; 589884-PIJ-I (Total);359463-Ymmqc LDL-P; 306644-BJZ Size; 233239-XG-RM Scorewas developed and its performance characteristics determinedby [employer]. It has not been cleared or approved by the Foodand Drug Administration.PATIENT WAS FASTINGPERFORMED BY: [employer] [address] [id number] BY: GenerationStation6370 [facility] [id number] Urea nitrogen/Creatinine [Mass ratio] 13 mg/mg Normal 12- [facility] Work Phone: Comment on above: Test(s) 058106-NKS-Z ; 983934-TKZ-L; 089951-IOY-G; 932632-Ziucoukrvjerr; 235355-Zxvkhjzksht, Total; 795129-EBW-A (Total);136680-Cwlie LDL-P; 321923-RDU Size; 757313-VY-SI Scorewas developed and its performance characteristics determinedby [employer]. It has not been cleared or approved by the Foodand Drug Administration.PATIENT WAS FASTINGPERFORMED BY: [employer] [address] [id number] BY: [employer] RicaPenn Medicine Princeton Medical CenterVkgyrt8230 [facility] [id number] NMR Profile (33990)Ordered B y: [employer]ing Unit Operator on 04-17-2020 Cholesterol [Mass/Vol] 196 mg/dL Normal 100-199 [facility] Internal Medicine Work Phone: Comment on above: Test(s) 533038-NXU-R ; 364306-ZYD-G; 311787-ZTY-O; 370870-Yxtwiscywqnqc; 152438-Vnuouwfkaqf, Total; 433140-KUN-F (Total);949756-Lxnjy LDL-P; 571516-CWC Size; 302319-MI-OK Scorewas developed and its performance characteristics determinedby [employer]. It has not been cleared or approved by the Foodand Drug Administration.PATIENT WAS FASTINGPERFORMED BY: [employer] [address] [id number] BY: [employer] Nsdrth6405 [facility] [id number] Lipoprotein.alpha [Moles/Vol] 30.1 umol/L Abnormal [facility] Internal Medicine Work Phone: Comment on above: Test(s) 072363-NNZ-A ; 324093-IHF-Q; 747140-CAK-B; 367394-Ychemvpmkvcjk; 393030-Yonnkifmwgj, Total; 456069-TUI-V (Total);458270-Nkmxj LDL-P; 280888-EAO Size; 018604-PB-AJ Scorewas developed and its performance characteristics determinedby [employer]. It has not been cleared or approved by the Foodand Drug Administration.PATIENT WAS FASTINGPERFORMED BY: [employer] [address] [id number] BY: [employer] RicaPenn Medicine Princeton Medical CenterUuyufx7711 [facility] [id number] Lipoprotein.beta.subpar ticle [Entitic length] 21.5 nm Normal Comprehen sive Internal Medicine Work Phone: Comment on above: INTERPRETATIVE INFORMATION PARTICLE CONCENTRATION AND SIZE <--Lower CVD Risk Higher CVD Risk--> LDL AND HDL PARTICLES Percentile in Reference Population HDL-P (total) High 75th 50th 25th Low >34.9 34.9 30.5 26.7 <26.7 . Small LDL-P Low 25th 50th 75th High <117 117 527 839 >839 . LDL Size <-Large (Pattern A)-> <-Small (Pattern B)-> 23.0 20.6 20.5 19.0 Smal l LDL-P and LDL Size are associated with CVD risk, but not afterLDL-P is taken into account. Test(s) 323223-HFD-J ; 008061-ATZ-Y; 523521-IQG-N; 141443-Ljehphspqaqvx; 922400-Zwczmcjpsao, Total; 356471-SPI-K (Total);743304-Omwzi LDL-P; 821317-BGK Size; 382628-KZ-EH Scorewas developed and its performance characteristics determinedby [employer]. It has not been cleared or approved by the Foodand Drug Administration.PATIENT WAS FASTINGPERFORMED BY: BN LabAnimail[address] [id number] BY: LabAnimailPenn Medicine Princeton Medical CenterTnlsfs2458 [facility] [id number] Lipoprotein.beta.subpar ticle [Moles/Vol] 1373 nmol/L Abnormal [facility] Work Phone: Comment on above: Low < 1000 Moderate 1000 - 1299 Borderline-High 1300 - 1599 High 1600 - 2000 Very High > 2000 Test(s) 833862-RGB-F ; 761458-URQ-H; 012110-YNC-O; 602232-Iyeiytswxpdnb; 185939-Purwyknsriz, Total; 090064-QSQ-V (Total);651744-Ccinb LDL-P; 944950-KYB Size; 232180-QR-OS Scorewas developed and its performance characteristics determinedby [employer]. It has not been cleared or approved by the Foodand Drug Administration.PATIENT WAS FASTINGPERFORMED BY: [employer] [address] [id number] BY: Front Row70 [facility] [id number] Lipoprotein.beta.subpar ticle.small [Moles/Vol] 400 nmol/L Normal Comprehe nsive Internal Medicine Work Phone: Comment on above: Test(s) 590077-GUP-K ; 728019-LMQ-A; 725809-QEN-S; 796640-Hoipgwofrkrqr; 847529-Tzvcrigobly, Total; 636821-PEW-M (Total);252105-Hitbd LDL-P; 679986-ARF Size; 037570-WL-JH Scorewas developed and its performance characteristics determinedby [employer]. It has not been cleared or approved by the Foodand Drug Administration.PATIENT WAS FASTINGPERFORMED BY: [employer] [address] [id number] BY: [employer] Vylwgr8393 [facility] [id number] Triglyceride [Mass/Vol] 100 mg/dL Normal 0-149 [facility] Internal Medicine Work Phone: Comment on above: Test(s) 015443-OUW-Y ; 327215-WNK-Z; 317764-NDZ-B; 520019-Voevsmivsmjul; 386423-Mgkdbrhpdug, Total; 090379-ZAQ-F (Total);974645-Smpap LDL-P; 792705-BQX Size; 116146-XL-WV Scorewas developed and its performance characteristics determinedby [employer]. It has not been cleared or approved by the Foodand Drug Administration.PATIENT WAS FASTINGPERFORMED BY: Torrent LoadingSystems[address] [id number] BY: Front [address] [facility] [id number] NMR Profile (25052) 125 mg/dL Abnormal 0-99 [facility] Internal [facility] Work Phone: Comment on above: . Optimal < 100 Abov e optimal 100 - 129 Borderline 130 - 159 High 160 - 189 Very high > 189 .LDL-C is inaccurate if patient is non-fasting. Test(s) 452234-VZE-D ; 371017-HYM-U; 183974-MPE-C; 995692-Txrhnlzsoxrcw; 225608-Wdbdyopajpq, Total; 150598-YHC-D (Total);910181-Lbtfi LDL-P; 548892-RHT Size; 592592-DN-SK Scorewas developed and its performance characteristics determinedby [employer]. It has not been cleared or approved by the Foodand Drug Administration.PATIENT WAS FASTINGPERFORMED BY: Tor[employer]Systems[address] [id number] BY: GenerationStation6370 [facility] [id number] NMR Profile (91148) 51 mg/dL Normal [facility] Internal [facility] Work Phone: Comment on above: Test(s) 554264-GUM-O ; 208535-LYV-N; 396090-CFZ-Z; 213340-Ogwjwbxafdshf; 335855-Vlnqrusfyxy, Total; 101276-NGX-E (Total);004215-Cbbpv LDL-P; 648392-LNC Size; 378535-QH-TV Scorewas developed and its performance characteristics determinedby [employer]. It has not been cleared or approved by the Foodand Drug Administration.PATIENT WAS FASTINGPERFORMED BY: Tor[employer] [id number] BY: GenerationStation6370 [facility] [id number] TSH (16044)Ordered By: Geneva Gorman on 04-17-2020 TSH Qn 1.140 {uIU/mL} Normal 0.450-4.50 0 [facility] Work Phone: Comment on above: Test(s) 002508-RCP-H ; 680950-NPV-S; 748806-EZW-O; 185604-Wxmuvmuavylpw; 376612-Idtozopzlge, Total; 481854-ZDH-D (Total);734445-Ajlzy LDL-P; 775802-OMV Size; 918228-IA-RW Scorewas developed and its performance characteristics determinedby [employer]. It has not been cleared or approved by the Foodand Drug Administration.PATIENT WAS FASTINGPERFORMED BY: BN [facility] Upszygxavn0932 [facility] [id number] BY: CB [facility] Dcmhnl0601 [facility] [id number] CBC W/Diff, AutomatedOrdered By: [employer]gun [employer] Reprinting Unit Operator on 09-28-2018 Absolute Neut 3.2 {X10_3/uL} Normal 2.0-7.7 Compreh ensive Internal Medicine Work Phone: Comment on above: [facility] [address] [place], [place], [phone] Basophils/100 WBC (Bld) 0.5 % Normal 0-1 [facility]rehens[facility] Internal Medicine Work Phone: Comment on above: [facility] [address] [place], [place], [phone] Eosinophils/100 WBC (Bld) 2.2 % Normal 0-5 [facility] Work Phone: Comment on above: [facility] [address] [place], [place], [phone] Erythrocyte distribution width Ratio (RBC) 13.1 % Normal 11.6-14.6 [facility] Work Phone: Comment on above: [facility] [address] [place], [place], [phone] Hematocrit Volume Fraction (Bld) 40.6 % Normal 37-47 [facility] Work Phone: Comment on above: [facility] [address] [place], [address] Hemoglobin mass conc (Bld) 13.1 g/dL Normal 12.0-15.0 [facility] Work Phone: Comment on above: [facility] [address] [place], [address] IM GRAN % 0.200 % Normal 0.0-0.9 [facility] Work Phone: Comment on above: IG% - Immature Granu locytes (promyelocytes, myelocytes andmetamyelocytes) > 1% indicates that a LEFT SHIFT is Present. [facility] [address] [place], [place], [phone] Lymphocytes #/vol (Bld) 1.95 {X10_3/ul} Normal 0.83-4. 51 [facility] Medicine Work Phone: Comment on above: [facility] [address] [place], [address] Lymphocytes/100 WBC (Bld) 32.3 % Normal 19-41 [facility] Work Phone: Comment on above: [facility] [address] [place], [address] MCH Entitic mass (RBC) 29.4 pg Normal 27.0-32.0 [facility] Internal Medicine Work Phone: Comment on above: [facility] [address] [place], [address] MCHC mass conc (RBC) 32.3 {g/gl} Normal 32-36 [facility] Internal Medicine Work Phone: Comment on above: [facility] [address] [place], [address] MCV Entitic volume (RBC) 91.0 fL Normal 81-99 [facility] Work Phone: Comment on above: [facility] [address] [place], [address] Monocytes/100 WBC (Bld) 12.4 % Abnormal 0-10 [facility] Internal Medicine Work Phone: Comment on above: [facility] [address] [place], [address] Neutrophils/100 WBC (Bld) 52.4 % Normal 47-70 [facility] Work Phone: Comment on above: [facility] [address] [place], [address] Platelet mean volume Entitic volume (Bld) 9.4 fL Normal 6.2-12.0 Comprehensi ve Internal Medicine Work Phone: Comment on above: [facility] [address] [place], [address] Platelets #/vol (Bld) 224 10*3/uL Normal 150-450 [facility] Work Phone: Comment on above: [facility] [address] [place], [address] RBC #/vol (Bld) 4.46 {M/mm3} Normal 4.2-5.4 Compreh ensive Internal Medicine Work Phone: Comment on above: [facility] [address] [place], [address] RDW SD 43.1 fL Normal 35.1-43.9 [facility] Work Phone: Comment on above: [facility] [address] [place], [address] WBC #/vol (Bld) 6.0 10*3/uL Normal 4.4-11.0 Comprehe nsive Internal Medicine Work Phone: Comment on above: [facility] [address] [place], [address] Comprehensive Metabolic Prof ilOrdered By: [employer]gun [employer] Repr[employer]ing Unit Operator on 09-28-2018 Comprehensive metabolic 2000 panel 15 U/L Normal 15-37 [facility] Medicine Work Phone: Comment on above: [facility] [address] [place], [place], [address] Comprehensive metabolic 2000 panel 30.0 mmol/L Normal 21.0-32.0 [facility] Work Phone: Comment on above: [facility] [address] [place], [address] Comprehensive metabolic 2000 panel 141 mmol/L Normal 136-145 [facility] Medicine Work Phone: Comment on above: [facility] [address] [place], [place], [address] Comprehensive metabolic 2000 panel 0.80 mg/dL Normal 0.20-1.00 [facility] Medicine Work Phone: Comment on above: [facility] [address] [place], [place], [address] Comprehensive metabolic 2000 panel 21 U/L Normal 13-56 [facility] Medicine Work Phone: Comment on above: [facility] [address] [place], [place], [address] Comprehensive metabolic 2000 panel 6 1 Normal 5-15 [facility] Medicine Work Phone: Comment on above: [facility] [address] [place], [place], [address] Comprehensive metabolic 2000 panel 93 U/L Normal 45-117 [facility] Medicine Work Phone: Comment on above: [facility] [address] [place], [place], [phone] Comprehensive metabolic 2000 panel 105 mg/dL Normal 74-106 [facility] Medicine Work Phone: Comment on above: Fasting Glucose resu lt from 100 to 125 mg/dLsuggests IMPAIRED HOMEOSTASIS per A.D.A. criteria.Please note revised GLUCOSE reference range /02/2018. [facility] [address] [place], [place], [address] Comprehensive metabolic 2000 panel 12 mg/dL Normal 7-18 [facility] Medicine Work Phone: Comment on above: [facility] [address] [place], [place], [phone] Comprehensive metabolic 2000 panel 3.6 mmol/L Normal 3.5-5.1 [facility] Work Phone: Comment on above: [facility] [address] [place], [place], [phone] Comprehensive metabolic 2000 panel 0.92 mg/dL Normal 0.55-1.02 [facility] Work Phone: Comment on above: The validity of the calculated GFR AND GFRAA in patients over70 years has not been determined. Clinical correlation isessential. [facility] [address] [place], [address] Comprehensive metabolic 2000 panel 65 mL/min Normal [facility] Work Phone: Comment on above: Non- GFR Calc [facility] [address] [place], [place], [phone] Comprehensive metabolic 2000 panel 78 mL/min Normal [facility] Work Phone: Comment on above: GFR Calc [facility] [address] [place], [place], [address] Comprehensive metabolic 2000 panel 13.0 {RATIO} Normal 10-20 [facility] Medicine Work Phone: Comment on above: [facility] [address] [place], [place], [address] Comprehensive metabolic 2000 panel 7.2 g/dL Normal 6.4-8.2 [facility] Work Phone: Comment on above: [facility] [address] [place], [place], [address] Comprehensive metabolic 2000 panel 3.8 g/dL Normal 3.2-5.0 [facility] Work Phone: Comment on above: [facility] [address] [place], [place], [address] Comprehensive metabolic 2000 panel 105 mmol/L Normal 98-107 [facility] Work Phone: Comment on above: [facility] [address] [place], [place], [address] Comprehensive metabolic 2000 panel 9.0 mg/dL Normal 8.5-10.1 [facility] Work Phone: Comment on above: [facility] [address] [place], [place], [address] Comprehensive metabolic 2000 panel 1.1 {RATIO} Normal 0.9-2.4 [facility] Medicine Work Phone: Comment on above: [facility] [address] [place], [place], [address] Comprehensive metabolic 2000 panel 3.4 g/dL Normal 2.2-4.2 [facility] Work Phone: Comment on above: [facility] [address] [place], [place], [phone] URINE CALCIUM BETINA TIMED 24 Hour (47792)Ordered By: [employer] Rep[employer]ing Unit Operator on 07-11-2018 Calcium mass conc (24H U) 6.2 mg/dL Normal [facility] Work Phone: Comment on above: PATIENT NOT FASTINGP ERFORMED BY: OLIVIA HyattCoangela Cheng70 [facility] [id number] Information: START 07/11/18@740AM Calcium mass/time (24H U) 77.5 {mg/24_hr} Abnormal 100.0-300. 0 [facility] Work Phone: Comment on above: PATIENT NOT FASTINGP ERFORMED BY: OLIVIA LabBisi Rascon [facility] [id number] Information: START 07/11/18@740AM C-REACTIVE PROTEIN (30975)Or dered By: [employer]ing Unit Operator on 07-06-2018 CRP mass conc 2.6 mg/L Normal 0.0-4.9 Comprehensi Internal Medicine Work Phone: Comment on above: PATIENT NOT FASTINGP ERFORMED BY: CB [facility] Kdtjfb[address] [facility] [id number] BY: LabAnimail[address] [id number] CALCIUM SERUM (13907)Ordered By: [employer]ing Unit Operator on 07-06-2018 Calcium mass conc 9.6 mg/dL Normal 8.7-10.3 Compreh ensive Internal Medicine Work Phone: Comment on above: PATIENT NOT FASTINGP ERFORMED BY: CB [facility] Czuqba[address] [facility] [id number] BY: [employer] Rica[address] [id number] CBC (AUTO) (51441)Ordered By : [employer]gun [employer] Repr[employer]ing Unit Operator on 07-06-2018 Erythrocyte distribution width Ratio (RBC) 14.4 % Normal 12.3-15.4 [facility] Work Phone: Comment on above: PATIENT NOT FASTINGP ERFORMED BY: CB [facility] Ucsykn[address] [facility] [id number] BY: [employer] Rica[address] [id number] Hematocrit Volume Fraction (Bld) 40.0 % Normal 34.0-46.6 [facility] Work Phone: Comment on above: PATIENT NOT FASTINGP ERFORMED BY: CB [facility] Ozbokv[address] [facility] [id number] BY: Sportilia[address] [id number] Hemoglobin mass conc (Bld) 13.4 g/dL Normal 11.1-15.9 [facility] Work Phone: Comment on above: PATIENT NOT FASTINGP ERFORMED BY: CB [facility] Indwat74[address] [facility] [id number] BY: Lab[address] [id number] MCH Entitic mass (RBC) 29.2 pg Normal 26.6-33.0 [facility] Internal Medicine Work Phone: Comment on above: PATIENT NOT FASTINGP ERFORMED BY: OLIVIA [facility] Ptdktt[address] [facility] [id number] BY: [facility] [address] [id number] MCHC mass conc (RBC) 33.5 g/dL Normal 31.5-35.7 [facility] Internal Medicine Work Phone: Comment on above: PATIENT NOT FASTINGP ERFORMED BY: OLIVIA [facility] Siutqv[address] [facility] [id number] BY: LabCo[address] [id number] MCV Entitic volume (RBC) 87 fL Normal 79-97 [facility] Work Phone: Comment on above: PATIENT NOT FASTINGP ERFORMED BY: OLIVIA [facility] Flzxyi[address] [facility] [id number] BY: Lab[address] [id number] Platelets #/vol (Bld) 288 {x10E3/uL} Normal 150-379 [facility] Work Phone: Comment on above: PATIENT NOT FASTINGP ERFORMED BY: OLIVIA [facility] Tcuxag[address] [facility] [id number] BY: Lab[address] [id number] Platelets (Bld) [#/Vol] 288 10*3/uL Normal 150-379 [facility]; [facility] Work Phone: Comment on above: PATIENT NOT FASTINGP ERFORMED BY: OLIVIA [facility] Qakcjs4[address] [facility] [id number] BY: Lab[address] [id number] RBC #/vol (Bld) 4.59 {x10E6/uL} Normal 3.77-5.28 [facility] Internal Medicine Work Phone: Comment on above: PATIENT NOT FASTINGP ERFORMED BY: [facility] Gzxyzi3672 [facility] [id number] BY: Lab[address] [id number] RBC (Bld) [#/Vol] 4.59 10*6/uL Normal 3.77-5.28 Compr ensive Internal Medicine; [facility] Work Phone: Comment on above: PATIENT NOT FASTINGP ERFORMED BY: [facility] Rckxck0335 [facility] [id number] BY: [address] [id number] WBC #/vol (Bld) 8.4 {x10E3/uL} Normal 3.4-10.8 [facility] Internal Medicine Work Phone: Comment on above: PATIENT NOT FASTINGP ERFORMED BY: [facility] Ycurae9624 [facility] [id number] BY: [address] [id number] WBC (Bld) [#/Vol] 8.4 10*3/uL Normal 3.4-10.8 [facility]; [facility] Work Phone: Comment on above: PATIENT NOT FASTINGP ERFORMED BY: [facility] Yvbexe4463 [facility] [id number] BY: [address] [id number] HEPATIC FUNCTION PANEL (8007 6)Ordered By: [employer] Repr[employer]ing Unit Operator on 07-06-2018 Albumin mass conc 4.6 g/dL Normal 3.6-4.[address] [facility] Internal Medicine Work Phone: Comment on above: PATIENT NOT FASTINGP ERFORMED BY: OLIVIA [facility] Hrjwsn1995 [address]ater RoadDublin [place] [id number] BY: [address] [id number] ALP [Catalytic activity/Vol] 68 U/L Normal 39-117 [facility]; [facility] Work Phone: Comment on above: PATIENT NOT FASTINGP ERFORMED BY: OLIVIA [facility] Byxvtl8390 [address]ater RoadDublin [place] [id number] BY: [address] [address] [id number] ALP enzyme act/vol 68 [iU]/L Normal 39-117 [facility] Internal Medicine Work Phone: Comment on above: PATIENT NOT FASTINGP ERFORMED BY: OLIVIA [facility] Teyjsr8590 Slater RoadDublin [place] [id number] BY: [address] [id number] ALT [Catalytic activity/Vol] 18 U/L Normal 0-32 [facility]; [facility] Internal Medicine Work Phone: Comment on above: PATIENT NOT FASTINGP ERFORMED BY: OLIVIA [facility] Zyhtrc1447 Slater RoadDublin [place] [id number] BY: [address] [id number] ALT enzyme act/vol 18 [iU]/L Normal 0-32 [facility] Internal Medicine Work Phone: Comment on above: PATIENT NOT FASTINGP ERFORMED BY: OLIVIA [facility] Elidqv7476 Slater RoadDublin [place] [id number] BY: [address] [id number] AST [Catalytic activity/Vol] 17 U/L Normal 0-40 [facility]; [facility] Work Phone: Comment on above: PATIENT NOT FASTINGP ERFORMED BY: OLIVIA [facility] Jpegwm0894 [address]ater RoadDublin [place] [id number] BY: Usbek & Rica[address] [id number] AST enzyme act/vol 17 [iU]/L Normal 0-40 [facility] Internal Medicine Work Phone: Comment on above: PATIENT NOT FASTINGP ERFORMED BY: CB [facility] Dasqki3332 [address]ater RoadDublin [place] [id number] BY: [address] [id number] Bilirubin mass conc 0.9 mg/dL Normal 0.0-1.2 [facility] Internal Medicine Work Phone: Comment on above: PATIENT NOT FASTINGP ERFORMED BY: CB [facility] Hauynx9569 [address]ater RoadDublin [place] [id number] BY: Usbek & Rica[address] [id number] Bilirubin.direct mass conc 0.23 mg/dL Normal 0.00-0.40 [facility] Internal Medicine Work Phone: Comment on above: PATIENT NOT FASTINGP ERFORMED BY: [facility] Bupewf9695 Slater RoadDublin [place] [id number] BY: Sportilia[address] [id number] PARATHORMONE ([id number])Ordered By: Shotgun Shell Reprinting Unit Operator on 07-06-2018 Parathyrin.intact mass conc 26 pg/mL Normal 15-65 [facility] Internal Medicine Work Phone: Comment on above: PATIENT NOT FASTINGP ERFORMED BY: CB [facility] Qfyumm9099 [address] RoadDublin [place] [id number] BY: Sportilia[address] [id number] PHOSPHORUS (74785)Ordered By : Shotgun Shell Reprinting Unit Operator on 07-06-2018 Phosphate mass conc 3.1 mg/dL Normal 2.5-4.5 [facility] Internal Medicine Work Phone: Comment on above: PATIENT NOT FASTINGP ERFORMED BY: CB [facility] Uofrrf3929 [address]ater RoadDublin [place] [id number] BY: LabCo[address] [id number] SED RATE ERYTHROCYTE ([id number]) Ordered By: Shotgun Shell Reprinting Unit Operator on 07-06-2018 ESR Velocity (Bld) 7 mm/h Normal 0-40 Compre [facility] Internal Medicine Work Phone: Comment on above: PATIENT NOT FASTINGP ERFORMED BY: CB [facility] Vjlmsg6660 Slater RoadDublin [place] [id number] BY: LabCo[address] [id number] SPEP ([id number])Ordered By: Syst em Oracle Scm Consultant on 07-06-2018 Albumin mass conc 4.1 g/dL Normal 2.9-4.[address] [facility] Internal Medicine Work Phone: Comment on above: PATIENT NOT FASTINGP ERFORMED BY: CB [facility] Wjkhps8737 Slater RoadAtrium Health Kannapolis [id number] BY: LabCo[address] [id number] Albumin/Globulin mass ratio 1.4 {ratio} Normal 0.7-1.7 [facility] Work Phone: Comment on above: PATIENT NOT FASTINGP ERFORMED BY: CB [facility] Edvkss[address] [facility] HospitalDublin [place] [id number] BY: [facility] [address] [id number] Alpha 1 globulin Elph mass conc 0.2 g/dL Normal 0.0-0.4 [facility] Work Phone: Comment on above: PATIENT NOT FASTINGP ERFORMED BY: CB [facility] Ajalib8055 [address] RoadDushore memorial hospital [place] [id number] BY: [facility] [address] [id number] Alpha 2 globulin Elph mass conc 0.8 g/dL Normal 0.4-1.0 [facility] Work Phone: Comment on above: PATIENT NOT FASTINGP ERFORMED BY: CB [facility] Kloajx3047 [address] RoadDuSelect Specialty Hospital [id number] BY: LabCo[address] [id number] Beta globulin Elph mass conc 1.0 g/dL Normal 0.7-1.3 [facility] Work Phone: Comment on above: PATIENT NOT FASTINGP ERFORMED BY: CB [facility] Hpawuj6059 [facility] [id number] BY: LabCo[address] [id number] Gamma globulin Elph mass conc 1.1 g/dL Normal 0.4-1.8 [facility] Work Phone: Comment on above: PATIENT NOT FASTINGP ERFORMED BY: CB [facility] Kukere1510 [facility] [id number] BY: [address] [id number] Globulin mass conc (S) 3.0 g/dL Normal 2.2-3.9 Co [facility] Internal Medicine Work Phone: Comment on above: PATIENT NOT FASTINGP ERFORMED BY: CB [facility] Afvtlf0121 [facility] [id number] BY: [address] [id number] Laboratory report . Normal Compreh ensive Internal Medicine Work Phone: Comment on above: PATIENT NOT FASTINGP ERFORMED BY: CB [facility] Nsxodj3293 [facility] [id number] BY: LabCo[address] [id number] Protein mass conc 7.1 g/dL Normal 6.0-8.5 Compreh ensive Internal Medicine Work Phone: Comment on above: PATIENT NOT FASTINGP ERFORMED BY: CB [facility] Ogakzb5552 [facility] [id number] BY: [address] [id number] Protein.monoclonal Elph mass conc Not Observed Normal [facility] Work Phone: Comment on above: PATIENT NOT FASTINGP ERFORMED BY: CB [facility] Mlsrid7565 Sl[address] RoadDublin [place] [id number] BY: [address] [id number] TSH ([id number])Ordered By: Recite Mee m Oracle Scm Consultant on 07-06-2018 Thyrotropin Qn 0.997 {uIU/mL} Normal 0.450-4.50 0 [facility] Work Phone: Comment on above: PATIENT NOT FASTINGP ERFORMED BY: CB [facility] Auvyil0699 Slater RoadUnc Healthin [place] [id number] BY: [place] [id number] UPEP ([id number])Ordered By: Recite Me em Oracle Scm Consultant on 07-06-2018 Albumin/Protein.total Elph mass fraction (U) 34.7 % Normal Comprehen [facility] Internal Medicine Work Phone: Comment on above: PATIENT NOT FASTINGP ERFORMED BY: CB [facility] Zhpwfs[address] [facility] [id number] BY: [address] [id number] Alpha 1 globulin/Protein.total Elph mass fraction (U) 1.9 % Normal Comprehen [facility] Internal Medicine Work Phone: Comment on above: PATIENT NOT FASTINGP ERFORMED BY: CB [facility] Efjhvb[address] [facility] [id number] BY: Lab[address] [id number] Alpha 2 globulin/Protein.total Elph mass fraction (U) 9.8 % Normal Comprehen [facility] Internal Medicine Work Phone: Comment on above: PATIENT NOT FASTINGP ERFORMED BY: CB [facility] Fosbbs[address] [facility] [id number] BY: [address] [id number] Beta globulin/Protein.total Elph mass fraction (U) 31.1 % Normal [facility] Internal Medicine Work Phone: Comment on above: PATIENT NOT FASTINGP ERFORMED BY: CB [facility] Qkpdvv1237 [address] RoadDublin [place] [id number] BY: [address] [id number] Gamma globulin/Protein.total Elph mass fraction (U) 22.5 % Normal [facility] Internal Medicine Work Phone: Comment on above: PATIENT NOT FASTINGP ERFORMED BY: CB [facility] Rfjruf6443 [address] RoadDublin [place] [id number] BY: [address] [id number] Laboratory comment Armando (Report) SPRCS Normal [facility] Work Phone: Comment on above: Protein electrophore sis scan will follow via computer, mail, orcourier delivery. PATIENT NOT FASTINGP ERFORMED BY: [employer] [facility] Yvmbjo1086 [address] RoadDublin [place] [id number] BY: [address] [id number] Protein mass conc (U) 9.8 mg/dL Normal [facility] prehensive Internal Medicine Work Phone: Comment on above: PATIENT NOT FASTINGP ERFORMED BY: CB [facility] Lpaivo7[address] [facility] Centerblin [place] [id number] BY: [address] [id number] Protein.monoclonal/Prot ein.total Elph mass fraction (U) Not Observed Normal [facility] Work Phone: Comment on above: PATIENT NOT FASTINGP ERFORMED BY: CB [facility] Kvilcc3723 [address] RoadDublin [place] [id number] BY: [address] [id number] VITAMIN D, 1, 25-DIHYDROXY ( 71474)Ordered By: Shotgun Shell Reprinting Unit Operator on 07-06-2018 Calcitriol mass conc 46.8 pg/mL Normal 19.9-79.3 Comp rehensive Internal Medicine Work Phone: Comment on above: PATIENT NOT FASTINGP ERFORMED BY: [facility] Vhozxx4680 [facility] [id number] BY: Usbek [employer] Rica[address] [id number] Vitamin D Hydroxy ([id number])Ord ered By: Shotgun Shell Reprinting Unit Operator on 07-06-2018 25-Hydroxyvitamin D2+25-Hydroxyvitamin D3 mass conc 68.2 ng/mL Normal 30.0-100.0 [facility] Work Phone: Comment on above: Vitamin D deficiency has been defined by the [place] of[place]icine and an Endocrine Society practice guideline as alevel of serum 25-OH vitamin D less than 20 ng/mL (1,2).The Endocrine Society went on to further define vitamin Dinsufficiency as a level between 21 and 29 ng/mL (2).1. IOM ([place] of Medicine). 2010. Dietary reference intakes for calcium and D. [place]: The National Academies Press.2. Andrey MF, Dago [place], Cuauhtemoc MOSS, et al. Evaluation, treatment, and prevention of vitamin D deficiency: an Endocrine Society clinical practice guideline. JCEM. 2010; 96(7):1911-30. PATIENT NOT FASTINGP ERFORMED BY: LabAligo Qnukma5401 [facility] [id number] BY: [employer]bek [employer] Rica[address] [id number] CBC W/Diff, AutomatedOrdered By: Shotgun Shell Reprinting Unit Operator on 07-02-2018 Absolute Lymph 1.60 {X10_3/ul} Normal 0.83-4.51 Compr ehensive Internal Medicine Work Phone: Absolute Neut 3.2 {X10_3/uL} Normal 2.0-7.7 Compreh ensive Internal Medicine Work Phone: Comment on above: [facility] [address] [place], [address] Basophils/100 WBC (Bld) 0.5 % Normal 0-1 C omprehensive Internal Medicine Work Phone: Comment on above: [facility] [address] [place], [address] Basophils/100 WBC Auto (Bld) 0.5 % Normal 0-1 [facility] Work Phone: Eosinophils/100 WBC (Bld) 2.8 % Normal 0-5 [facility] Work Phone: Comment on above: [facility] [address] [place], [address] Eosinophils/100 WBC Auto (Bld) 2.8 % Normal 0-5 [facility] Work Phone: Erythrocyte distribution width Auto Ratio (RBC) 13.8 % Normal 11.6-14.6 [facility] Work Phone: Erythrocyte distribution width Ratio (RBC) 13.8 % Normal 11.6-14.6 [facility] Work Phone: Comment on above: [facility] [address] [place], [address] Hematocrit Auto Volume Fraction (Bld) 40.6 % Normal 37-47 [facility] Work Phone: Hematocrit Volume Fraction (Bld) 40.6 % Normal 37-47 [facility] Work Phone: Comment on above: [facility] [address] [place], [address] Hemoglobin mass conc (Bld) 13.3 g/dL Normal 12.0-15.0 [facility] Work Phone: Comment on above: [facility] [address] [place], [address] IM GRAN % 0.400 % Normal 0.0-0.9 [facility] Work Phone: Comment on above: IG% - Immature Granu locytes (promyelocytes, myelocytes andmetamyelocytes) > 1% indicates that a LEFT SHIFT is Present. [facility] [address] [place], [place], [phone] Lymphocytes #/vol (Bld) 1.60 {X10_3/ul} Normal 0.83-4. 51 [facility] Work Phone: Comment on above: [facility] [address] [place], [address] Lymphocytes/100 WBC (Bld) 28.2 % Normal 19-41 [facility] Work Phone: Comment on above: [facility] [address] [place], [address] Lymphocytes/100 WBC Auto (Bld) 28.2 % Normal 19-41 [facility] Work Phone: MCH Auto Entitic mass (RBC) 29.7 pg Normal 27.0-32.0 [facility] Work Phone: MCH Entitic mass (RBC) 29.7 pg Normal 27.0-32.0 [facility] Internal Medicine Work Phone: Comment on above: [place] [address] [place], [address] MCHC Auto mass conc (RBC) 32.8 {g/gl} Normal 32-36 [facility] Work Phone: MCHC mass conc (RBC) 32.8 {g/gl} Normal 32-36 [facility] Internal Medicine Work Phone: Comment on above: [facility] [address] [place], [address] MCV Auto Entitic volume (RBC) 90.6 fL Normal 81-99 [facility] Work Phone: MCV Entitic volume (RBC) 90.6 fL Normal 81-99 [facility] Work Phone: Comment on above: [facility] [address] [place], [address] Monocytes/100 WBC Auto (Bld) 12.2 % Abnormal 0-10 [facility] Work Phone: Comment on above: [facility] W[address] [place], [address] Neutrophils/100 WBC (Bld) 55.9 % Normal 47-70 [facility] Work Phone: Comment on above: [facility] [address] [place], [address] Neutrophils/100 WBC Auto (Bld) 55.9 % Normal 47-70 [facility] Work Phone: Platelet mean volume Auto Entitic volume (Bld) 9.2 fL Normal 6.2-12.0 [facility] Work Phone: Platelet mean volume Entitic volume (Bld) 9.2 fL Normal 6.2-12.0 Comprehensi ve Internal Medicine Work Phone: Comment on above: [facility] [address] [place], [address] Platelets #/vol (Bld) 244 10*3/uL Normal 150-450 [facility] Work Phone: Comment on above: [facility] [address] [place], [address] Platelets Auto #/vol (Bld) 244 10*3/uL Normal 150-450 [facility] Work Phone: RBC #/vol (Bld) 4.48 {M/mm3} Normal 4.2-5.4 Compreh ensive Internal Medicine Work Phone: Comment on above: [facility] [address] [place], [address] RBC Auto #/vol (Bld) 4.48 {M/mm3} Normal 4.2-5.4 Co mprehensive Internal Medicine Work Phone: RDW SD 44.5 fL Abnormal 35.1-43.9 [facility] Work Phone: Comment on above: [facility] [address] [place], [place], [id number] WBC #/vol (Bld) 5.7 10*3/uL Normal 4.4-11.0 Comprehe nsive Internal Medicine Work Phone: Comment on above: [facility] [address] [place], [address] WBC Auto #/vol (Bld) 5.7 10*3/uL Normal 4.4-11.0 Com prehensive Internal Medicine Work Phone: Comprehensive Metabolic Prof ilOrdered By: Shotgun Shell Reprinting Unit Operator on 07-02-2018 [facility] metabolic 2000 panel 9.2 mg/dL Normal 8.5-10.1 [facility] Work Phone: Comment on above: [facility] [address] [place], [place], [address] Comprehensive metabolic 2000 panel 61 mL/min Normal [facility] Work Phone: Comment on above: Non- GFR Calc [facility] [address] [place], [place], [address] Comprehensive metabolic 2000 panel 0.98 mg/dL Normal 0.55-1.02 [facility] Work Phone: Comment on above: The validity of the calculated GFR AND GFRAA in patients over70 years has not been determined. Clinical correlation isessential. [facility] [address] [place], [place], [id number] Comprehensive metabolic 2000 panel 1.0 {RATIO} Normal 0.9-2.4 [facility] Work Phone: Comment on above: [facility] [address] [place], [place], [phone] Comprehensive metabolic 2000 panel 3.8 g/dL Normal 2.2-4.2 [facility] Work Phone: Comment on above: [facility] spital [address] [place], [address] Comprehensive metabolic 2000 panel 91 mg/dL Normal 74-106 [facility] Work Phone: Comment on above: Please note revised GLUCOSE reference range cfeeoabkf96/02/2018. [facility] spital [address] [place], [address] Comprehensive metabolic 2000 panel 71 U/L Normal 45-117 [facility] Work Phone: Comment on above: [facility] sp[facility] [address] [place], [place], [address] Comprehensive metabolic 2000 panel 10 1 Normal 5-15 [facility] Work Phone: Comment on above: [facility]ital [address] [place], [address] Comprehensive metabolic 2000 panel 7.6 g/dL Normal 6.4-8.2 [facility] Work Phone: Comment on above: [facility] spital [address] [place], [place], [address] Comprehensive metabolic 2000 panel 28.0 mmol/L Normal 21.0-32.0 [facility] Work Phone: Comment on above: [facility] spital [address] [place], [address] Comprehensive metabolic 2000 panel 40 U/L Normal 13-56 [facility] Work Phone: Comment on above: [facility] [address] [place], [address] Comprehensive metabolic 2000 panel 15.4 {RATIO} Normal 10-20 [facility] Work Phone: Comment on above: [facility] spital [address] [place], [address] Comprehensive metabolic 2000 panel 0.80 mg/dL Normal 0.20-1.00 [facility] Work Phone: Comment on above: [facility] [address] [place], [address] Comprehensive metabolic 2000 panel 105 mmol/L Normal 98-107 [facility] Work Phone: Comment on above: [facility] [address] [place], [address] Comprehensive metabolic 2000 panel 73 mL/min Normal [facility] Work Phone: Comment on above: GFR Calc [facility] [address] [place], [address] Comprehensive metabolic 2000 panel 143 mmol/L Normal 136-145 [facility] Work Phone: Comment on above: [facility] [address] [place], [address] Comprehensive metabolic 2000 panel 17 U/L Normal 15-37 [facility] Work Phone: Comment on above: [facility] [address] [place], [address] Comprehensive metabolic 2000 panel 3.6 mmol/L Normal 3.5-5.1 [facility] Work Phone: Comment on above: [facility] [address] [place], [address] Comprehensive metabolic 2000 panel 15 mg/dL Normal 7-18 [facility] Work Phone: Comment on above: [facility] [address] [place], [address] CALCIFIDIOL (94425) VIT D 25 Ordered By: Shotgun Shell Reprinting Unit Operator on 04-27-2018 25-Hydroxyvitamin D2+25-Hydroxyvitamin D3 mass conc 107.0 ng/mL Abnormal 30.0-100.0 [facility] Work Phone: Comment on above: Vitamin D deficiency has been defined by the [place] of[place]icine and an Endocrine Society practice guideline as alevel of serum 25-OH vitamin D less than 20 ng/mL (1,2).The Endocrine Society went on to further define vitamin Dinsufficiency as a level between 21 and 29 ng/mL (2).1. IOM ([place] of [place]). 2010. Dietary reference intakes for calcium and D. [place]: The National Academies Press.2. Andrey MF, Dago RAMIREZ, Cuauhtemoc MOSS, et al. Evaluation, treatment, and prevention of vitamin D deficiency: an Endocrine Society clinical practice guideline. JCEM. 2010; 96(7):1911-30. PATIENT WAS FASTINGP ERFORMED BY: [employer] [facility] [id number] BY: [place] [id number] LIPOPROTEIN, BLD, BY NMR (22 440)Ordered By: Shotgun Shell Reprinting Unit Operator on 04-27-2018 Cholesterol in HDL mass conc 55 mg/dL Normal [facility] Work Phone: Comment on above: PATIENT WAS FASTINGP ERFORMED BY: Torrent LoadingSystemston1447 [facility] [id number] BY: [address] [facility] [id number] Cholesterol in LDL mass conc 114 mg/dL Abnormal 0-99 [facility] Work Phone: Comment on above: . Optimal < 100 Abov e optimal 100 - 129 Borderline 130 - 159 High 160 - 189 Very high > 189 .LDL-C is inaccurate if patient is non-fasting. PATIENT WAS FASTINGP ERFORMED BY: [employer] [facility] [id number] BY: [address] MomentCamblin [place] [id number] Cholesterol mass conc 186 mg/dL Normal 100-199 [facility] prehensive Internal Medicine Work Phone: Comment on above: PATIENT WAS FASTINGP ERFORMED BY: Torrent LoadingSystemston1447 [facility] [id number] BY: [employer] E[address]qmb[address] [place]noDublin [place] [id number] Lipoprotein.alpha molar conc 36.4 umol/L Normal [facility] Internal Medicine Work Phone: Comment on above: PATIENT WAS FASTINGP ERFORMED BY: Torrent LoadingSystems[address] [id number] BY: [employer]70 [facility] [id number] Lipoprotein.beta.subpar ticle Entitic length 21.5 nm Normal Comprehensi Internal Medicine Work Phone: Comment on above: INTERPRETATIVE INFORMATION PARTICLE CONCENTRATION AND SIZE <--Lower CVD Risk Higher CVD Risk--> LDL AND HDL PARTICLES Percentile in Reference Population HDL-P (total) High 75th 50th 25th Low >34.9 34.9 30.5 26.7 <26.7 . Small LDL-P Low 25th 50th 75th High <[phone] 839 >839 . LDL Size <-Large (Pattern A)-> <-Small (Pattern B)-> 23.0 20.6 20.5 19.0 Smal l LDL-P and LDL Size are associated with CVD risk, but not afterLDL-P is taken into account. .These assays were developed and their performance characteristicsdetermined by [employer]. These assays have not been cleared by [place] Food and Drug Administration. The clinical utility of theselaboratory values have not been fully established. PATIENT WAS FASTINGP ERFORMED BY: [employer] [address] [id number] BY: IG [employer]6370 [facility] [id number] Lipoprotein.beta.subpar ticle molar conc 1422 nmol/L Abnormal [facility] Internal Medicine Work Phone: Comment on above: Low < 1000 Moderate 1000 - 1299 Borderline-High 1300 - 1599 High 1600 - 2000 Very High > 2000 PATIENT WAS FASTINGP ERFORMED BY: [employer] Rica[address] [id number] BY: [facility] Qviamc[address] [facility] [id number] Lipoprotein.beta.subpar ticle.small molar conc 217 nmol/L Normal Comprehen sive Internal Medicine Work Phone: Comment on above: PATIENT WAS FASTINGP ERFORMED BY: [employer] Rica[address] [id number] BY: [facility] Boblfq6907 [facility] [id number] Triglyceride mass conc 84 mg/dL Normal 0-149 Co mprehensive Internal Medicine Work Phone: Comment on above: PATIENT WAS FASTINGP ERFORMED BY: [employer] Rica[address] [id number] BY: LabCoPenn Medicine Princeton Medical CenterSmdcla1705 [facility] [id number] TSH ([id number])Ordered By: [place] m Oracle Scm Consultant on 04-27-2018 Thyrotropin Qn 2.560 {uIU/mL} Normal 0.450-4.50 0 [facility] Work Phone: Comment on above: PATIENT WAS FASTINGP ERFORMED BY: [place] & [address] [id number] BY: LabAnimailPenn Medicine [facility] CenterEkkwax8906 [facility] [id number] CBC W/Diff, AutomatedOrdered By: Shotgun [employer] Reprinting Unit Operator on 04-18-2018 Absolute Lymph 1.65 {X10_3/ul} Normal 0.83-4.51 Compr ehensive Internal Medicine Work Phone: Absolute Neut 4.0 {X10_3/uL} Normal 2.0-7.7 Compreh ensive Internal Medicine Work Phone: Comment on above: [facility] [address] [place], [address] Basophils/100 WBC (Bld) 0.5 % Normal 0-1 C omprehensive Internal Medicine Work Phone: Comment on above: [facility] [address] [place], [address] Basophils/100 WBC Auto (Bld) 0.5 % Normal 0-1 [facility] Work Phone: Eosinophils/100 WBC (Bld) 1.9 % Normal 0-5 [facility] Work Phone: Comment on above: [facility] [address] [place], [address] Eosinophils/100 WBC Auto (Bld) 1.9 % Normal 0-5 [facility] Work Phone: Erythrocyte distribution width Auto Ratio (RBC) 13.4 % Normal 11.6-14.6 [facility] Work Phone: Erythrocyte distribution width Ratio (RBC) 13.4 % Normal 11.6-14.6 [facility] Work Phone: Comment on above: [place] [address] [place], [address] Hematocrit Auto Volume Fraction (Bld) 42.0 % Normal 37-47 [facility] Work Phone: Hematocrit Volume Fraction (Bld) 42.0 % Normal 37-47 [facility] Work Phone: Comment on above: [facility] [address] [place], [address] Hemoglobin mass conc (Bld) 13.4 g/dL Normal 12.0-15.0 [facility] Work Phone: Comment on above: [facility] [address] [place], [address] IM GRAN % 0.200 % Normal 0.0-0.9 [facility] Work Phone: Comment on above: IG% - Immature Granu locytes (promyelocytes, myelocytes andmetamyelocytes) > 1% indicates that a LEFT SHIFT is Present. [facility] [address] [place], [address] Lymphocytes #/vol (Bld) 1.65 {X10_3/ul} Normal 0.83-4. 51 [facility] Work Phone: Comment on above: [place] [address] [place], [address] Lymphocytes/100 WBC (Bld) 25.5 % Normal 19-41 [facility] Work Phone: Comment on above: [place] [address] [place], [address] Lymphocytes/100 WBC Auto (Bld) 25.5 % Normal 19-41 [facility] Work Phone: MCH Auto Entitic mass (RBC) 29.1 pg Normal 27.0-32.0 [facility] Work Phone: MCH Entitic mass (RBC) 29.1 pg Normal 27.0-32.0 [facility] Internal Medicine Work Phone: Comment on above: [place] [address] [place], [address] MCHC Auto mass conc (RBC) 31.9 {g/gl} Abnormal 32-36 [facility] Work Phone: MCHC mass conc (RBC) 31.9 {g/gl} Abnormal 32-36 [facility] Internal Medicine Work Phone: Comment on above: [place] [address] [place], [address] MCV Auto Entitic volume (RBC) 91.3 fL Normal 81-99 [facility] Work Phone: MCV Entitic volume (RBC) 91.3 fL Normal 81-99 [facility] Work Phone: Comment on above: [place] [address] [place], [address] Monocytes/100 WBC Auto (Bld) 11.1 % Abnormal 0-10 [facility] Work Phone: Comment on above: [facility] [address] [place], [address] Neutrophils/100 WBC (Bld) 60.8 % Normal 47-70 [facility] Work Phone: Comment on above: [facility] [address] [place], [address] Neutrophils/100 WBC Auto (Bld) 60.8 % Normal 47-70 [facility] Work Phone: Platelet mean volume Auto Entitic volume (Bld) 9.5 fL Normal 6.2-12.0 [facility] Work Phone: Platelet mean volume Entitic volume (Bld) 9.5 fL Normal 6.2-12.0 Comprehensi Internal Medicine Work Phone: Comment on above: [facility] [address] [place], [address] Platelets #/vol (Bld) 233 10*3/uL Normal 150-450 [facility] Work Phone: Comment on above: [facility] [address] [place], [address] Platelets Auto #/vol (Bld) 233 10*3/uL Normal 150-450 [facility] Work Phone: RBC #/vol (Bld) 4.60 {M/mm3} Normal 4.2-5.4 Compreh ensive Internal Medicine Work Phone: Comment on above: [facility] [address] [place], [address] RBC Auto #/vol (Bld) 4.60 {M/mm3} Normal 4.2-5.4 [facility] Work Phone: RDW SD 44.1 fL Abnormal 35.1-43.9 [facility] Work Phone: Comment on above: [facility] [address] [place], [phone] WBC #/vol (Bld) 6.5 10*3/uL Normal 4.4-11.0 Comprehe nsive Internal Medicine Work Phone: Comment on above: [facility] [address] [place], [place], [phone] WBC Auto #/vol (Bld) 6.5 10*3/uL Normal 4.4-11.0 Com prehensive Internal Medicine Work Phone: Comprehensive Metabolic Prof ilOrdered By: Shotgun [employer] Reprinting Unit Operator on 04-18-2018 Comprehensive metabolic 2000 panel 0.90 mg/dL Normal 0.20-1.00 [facility] Work Phone: Comment on above: [facility] [address] [place], [place], [id number] Comprehensive metabolic 2000 panel 1.0 {RATIO} Normal 0.9-2.4 [facility] Work Phone: Comment on above: [facility] [address] [place], [place], [phone] Comprehensive metabolic 2000 panel 95 mg/dL Normal 74-106 [facility] Work Phone: Comment on above: Please note revised GLUCOSE reference range qargwylsk33/02/2018. [facility] [address] [place], [place], [id number] Comprehensive metabolic 2000 panel 9.0 mg/dL Normal 8.5-10.1 [facility] Work Phone: Comment on above: [facility] [address] [place], [place], [id number] Comprehensive metabolic 2000 panel 3.8 g/dL Normal 2.2-4.2 [facility] Work Phone: Comment on above: [facility] [address] [place], [address] Comprehensive metabolic 2000 panel 11 mg/dL Normal 7-18 [facility] Work Phone: Comment on above: [facility] spital [address] [place], [address] Comprehensive metabolic 2000 panel 5 1 Normal 5-15 [facility] Work Phone: Comment on above: [facility] [address] [place], [address] Comprehensive metabolic 2000 panel 31.0 mmol/L Normal 21.0-32.0 [facility] Work Phone: Comment on above: [facility] [address] [place], [address] Comprehensive metabolic 2000 panel 3.7 g/dL Normal 3.2-5.0 [facility] Work Phone: Comment on above: [facility] [address] [place], [address] Comprehensive metabolic 2000 panel 106 mmol/L Normal 98-107 [facility] Work Phone: Comment on above: [facility] [address] [place], [address] Comprehensive metabolic 2000 panel 7.5 g/dL Normal 6.4-8.2 [facility] Work Phone: Comment on above: [facility] [address] [place], [address] Comprehensive metabolic 2000 panel 11.9 {RATIO} Normal 10-20 [facility] Work Phone: Comment on above: [facility] [address] [place], [address] Comprehensive metabolic 2000 panel 78 mL/min Normal [facility] Work Phone: Comment on above: GFR Calc [facility] [address] [place], [address] Comprehensive metabolic 2000 panel 142 mmol/L Normal 136-145 [facility] Work Phone: Comment on above: [facility] [address] [place], [place], [address] Comprehensive metabolic 2000 panel 64 mL/min Normal [facility] Work Phone: Comment on above: Non- GFR Calc [facility] [address] [place], [place], [address] Comprehensive metabolic 2000 panel 0.93 mg/dL Normal 0.55-1.02 [facility] Work Phone: Comment on above: The validity of the calculated GFR AND GFRAA in patients over70 years has not been determined. Clinical correlation isessential. [facility] [address] [place], [address] Comprehensive metabolic 2000 panel 16 U/L Normal 15-37 [facility] Work Phone: Comment on above: [facility] [address] [place], [place], [address] Comprehensive metabolic 2000 panel 3.7 mmol/L Normal 3.5-5.1 [facility] Work Phone: Comment on above: [facility] [address] [place], [address] Comprehensive metabolic 2000 panel 71 U/L Normal 45-117 [facility] Work Phone: Comment on above: [facility] [address] [place], [place], [address] Comprehensive metabolic 2000 panel 24 U/L Normal 13-56 [facility] Work Phone: Comment on above: [facility] [address] [place], [address] CBC W/Diff, AutomatedOrdered By: [employer]gun [employer] Reprinting Unit Operator on 02-01-2018 Absolute Lymph 1.65 {X10_3/ul} Normal 0.83-4.51 Compr ehensive Internal Medicine Work Phone: Absolute Neut 3.3 {X10_3/uL} Normal 2.0-7.7 Compreh ensive Internal Medicine Work Phone: Comment on above: [facility] [address] [place], [address] Basophils/100 WBC (Bld) 0.3 % Normal 0-1 C omprehensive Internal Medicine Work Phone: Comment on above: [facility] [address] [place], [address] Basophils/100 WBC Auto (Bld) 0.3 % Normal 0-1 [facility] Work Phone: Eosinophils/100 WBC (Bld) 2.4 % Normal 0-5 [facility] Work Phone: Comment on above: [facility] [address] [place], [address] Eosinophils/100 WBC Auto (Bld) 2.4 % Normal 0-5 [facility] Work Phone: Erythrocyte distribution width Auto Ratio (RBC) 13.1 % Normal 11.6-14.6 [facility] Work Phone: Erythrocyte distribution width Ratio (RBC) 13.1 % Normal 11.6-14.6 [facility] Work Phone: Comment on above: [facility] [address] [place], [address] Hematocrit Auto Volume Fraction (Bld) 40.4 % Normal 37-47 [facility] Work Phone: Hematocrit Volume Fraction (Bld) 40.4 % Normal 37-47 [facility] Work Phone: Comment on above: [facility] [address] [place], [phone]) Hemoglobin mass conc (Bld) 13.5 g/dL Normal 12.0-15.0 [facility] Work Phone: Comment on above: [facility] [address] [place], [address] IM GRAN % 0.200 % Normal 0.0-0.9 [facility] Work Phone: Comment on above: IG% - Immature Granu locytes (promyelocytes, myelocytes andmetamyelocytes) > 1% indicates that a LEFT SHIFT is Present. [facility] [address] [place], [address] Lymphocytes #/vol (Bld) 1.65 {X10_3/ul} Normal 0.83-4. 51 [facility] Work Phone: Comment on above: [facility] [address] [place], [address] Lymphocytes/100 WBC (Bld) 28.5 % Normal 19-41 [facility] Work Phone: Comment on above: [facility] [address] [place], [address] Lymphocytes/100 WBC Auto (Bld) 28.5 % Normal 19-41 [facility] Work Phone: MCH Auto Entitic mass (RBC) 30.5 pg Normal 27.0-32.0 [facility] Work Phone: MCH Entitic mass (RBC) 30.5 pg Normal 27.0-32.0 [facility] Internal Medicine Work Phone: Comment on above: [facility] [address] [place], [address] MCHC Auto mass conc (RBC) 33.4 {g/gl} Normal 32-36 [facility] Work Phone: MCHC mass conc (RBC) 33.4 {g/gl} Normal 32-36 [facility] Internal Medicine Work Phone: Comment on above: [facility] [address] [place], [address] MCV Auto Entitic volume (RBC) 91.4 fL Normal 81-99 [facility] Work Phone: MCV Entitic volume (RBC) 91.4 fL Normal 81-99 [facility] Work Phone: Comment on above: [facility] [address] [place], [address] Monocytes/100 WBC Auto (Bld) 11.9 % Abnormal 0-10 [facility] Work Phone: Comment on above: [facility] [address] [place], [address] Neutrophils/100 WBC (Bld) 56.7 % Normal 47-70 [facility] Work Phone: Comment on above: [facility] [address] [place], [address] Neutrophils/100 WBC Auto (Bld) 56.7 % Normal 47-70 [facility] Work Phone: Platelet mean volume Auto Entitic volume (Bld) 9.6 fL Normal 6.2-12.0 [facility] Work Phone: Platelet mean volume Entitic volume (Bld) 9.6 fL Normal 6.2-12.0 [facility] Work Phone: Comment on above: [facility] [address] [place], [address] Platelets #/vol (Bld) 261 10*3/uL Normal 150-450 [facility] Internal Medicine Work Phone: Comment on above: [facility] [address] [place], [address] Platelets Auto #/vol (Bld) 261 10*3/uL Normal 150-450 [facility] Work Phone: RBC #/vol (Bld) 4.42 {M/mm3} Normal 4.2-5.4 Compreh ensive Internal Medicine Work Phone: Comment on above: [facility] [address] [place], [id number] RBC Auto #/vol (Bld) 4.42 {M/mm3} Normal 4.2-5.4 Co mprehensive Internal Medicine Work Phone: RDW SD 43.0 fL Normal 35.1-43.9 [facility] Work Phone: Comment on above: [facility] [address] [place], [phone] WBC #/vol (Bld) 5.8 10*3/uL Normal 4.4-11.0 Comprehe nsive Internal Medicine Work Phone: Comment on above: [facility] [address] [place], [address] WBC Auto #/vol (Bld) 5.8 10*3/uL Normal 4.4-11.0 Com prehensive Internal Medicine Work Phone: Comprehensive Metabolic Prof ilOrdered By: Shotgun [employer] Reprinting Unit Operator on 02-01-2018 Comprehensive metabolic 2000 panel 1.0 {RATIO} Normal 0.9-2.4 [facility] Work Phone: Comment on above: [facility] [address] [place], [place], [phone] Comprehensive metabolic 2000 panel 32 U/L Normal 13-56 [facility] Work Phone: Comment on above: [facility] [address] [place], [place], [phone] Comprehensive metabolic 2000 panel 13 mg/dL Normal 7-18 [facility] Work Phone: Comment on above: [facility] [address] [place], [place], [phone] Comprehensive metabolic 2000 panel 0.92 mg/dL Normal 0.55-1.02 [facility] Work Phone: Comment on above: The validity of the calculated GFR AND GFRAA in patients over70 years has not been determined. Clinical correlation isessential. [facility] [address] [place], [address] Comprehensive metabolic 2000 panel 66 mL/min Normal [facility] Work Phone: Comment on above: Non- G[facility] Calc [facility] [address] [place], [address] Comprehensive metabolic 2000 panel 79 mL/min Normal [facility] Work Phone: Comment on above: GFR Calc [facility] [address] [place], [address] Comprehensive metabolic 2000 panel 14.2 {RATIO} Normal 10-20 [facility] Work Phone: Comment on above: [facility] [address] [place], [address] Comprehensive metabolic 2000 panel 7.5 g/dL Normal 6.4-8.2 [facility] Work Phone: Comment on above: [facility] [address] [place], [address] Comprehensive metabolic 2000 panel 3.8 g/dL Normal 3.2-5.0 [facility] Work Phone: Comment on above: [facility] [address] [place], [address] Comprehensive metabolic 2000 panel 3.7 g/dL Normal 2.2-4.2 [facility] Work Phone: Comment on above: [facility] [address] [place], [address] Comprehensive metabolic 2000 panel 96 mg/dL Normal 74-106 [facility] Work Phone: Comment on above: Please note revised GLUCOSE reference range xdisfstyt24/02/2018. [facility] [address] [place], [place], [address] Comprehensive metabolic 2000 panel 8 1 Normal 5-15 [facility] Work Phone: Comment on above: [facility] [address] [place], [place], [address] Comprehensive metabolic 2000 panel 28.0 mmol/L Normal 21.0-32.0 [facility] Work Phone: Comment on above: [facility] [address] [place], [address] Comprehensive metabolic 2000 panel 105 mmol/L Normal 98-107 [facility] Work Phone: Comment on above: [facility] [address] [place], [place], [address] Comprehensive metabolic 2000 panel 9.0 mg/dL Normal 8.5-10.1 [facility] Work Phone: Comment on above: [facility] [address] [place], [place], [address] Comprehensive metabolic 2000 panel 21 U/L Normal 15-37 [facility] Work Phone: Comment on above: [facility] [address] [place], [place], [address] Comprehensive metabolic 2000 panel 4.1 mmol/L Normal 3.5-5.1 [facility] Work Phone: Comment on above: [facility] [address] [place], [address] Comprehensive metabolic 2000 panel 75 U/L Normal 45-117 [facility] Work Phone: Comment on above: [facility] [address] [place], [place], [address] Comprehensive metabolic 2000 panel 141 mmol/L Normal 136-145 [facility] Work Phone: Comment on above: [facility] [address] [place], [place], [phone] Comprehensive metabolic 2000 panel 0.80 mg/dL Normal 0.20-1.00 [facility] Work Phone: Comment on above: [facility] [address] [place], [place], [phone] CBC W/Diff, AutomatedOrdered By: Shotgun [employer] Reprinting Unit Operator on 11-10-2017 Absolute Lymph 1.32 {X10_3/ul} Normal 0.83-4.51 Compr ehensive Internal Medicine Work Phone: Absolute Neut 3.7 {X10_3/uL} Normal 2.0-7.7 Compreh ensive Internal Medicine Work Phone: Comment on above: [facility] [address] [place], [place], [phone] Basophils/100 WBC (Bld) 0.5 % Normal 0-1 C omprehensive Internal Medicine Work Phone: Comment on above: [facility] [address] [place], [address] Basophils/100 WBC Auto (Bld) 0.5 % Normal 0-1 [facility] Work Phone: Eosinophils/100 WBC (Bld) 2.1 % Normal 0-5 [facility] Work Phone: Comment on above: [facility] [address] [place], [phone] Eosinophils/100 WBC Auto (Bld) 2.1 % Normal 0-5 [facility] Work Phone: Erythrocyte distribution width Auto Ratio (RBC) 14.1 % Normal 11.6-14.6 [facility] Work Phone: Erythrocyte distribution width Ratio (RBC) 14.1 % Normal 11.6-14.6 [facility] Work Phone: Comment on above: [facility] [address] [place], [place], [id number] Hematocrit Auto Volume Fraction (Bld) 41.2 % Normal 37-47 [facility] Work Phone: Hematocrit Volume Fraction (Bld) 41.2 % Normal 37-47 [facility] Work Phone: Comment on above: [facility] [address] [place], [place], [phone] Hemoglobin mass conc (Bld) 13.3 g/dL Normal 12.0-15.0 [facility] Work Phone: Comment on above: [place] [address] [place], [address] IM GRAN % 0.200 % Normal 0.0-0.9 [facility] Work Phone: Comment on above: IG% - Immature Granu locytes (promyelocytes, myelocytes andmetamyelocytes) > 1% indicates that a LEFT SHIFT is Present. [place] [address] [place], [place], [phone] Lymphocytes #/vol (Bld) 1.32 {X10_3/ul} Normal 0.83-4. 51 [facility] Work Phone: Comment on above: [facility] [address] [place], [address] Lymphocytes/100 WBC (Bld) 22.8 % Normal 19-41 [facility] Work Phone: Comment on above: [place] [address] [place], [address] Lymphocytes/100 WBC Auto (Bld) 22.8 % Normal 19-41 [facility] Work Phone: MCH Auto Entitic mass (RBC) 29.7 pg Normal 27.0-32.0 [facility] Work Phone: MCH Entitic mass (RBC) 29.7 pg Normal 27.0-32.0 [facility] Internal Medicine Work Phone: Comment on above: [facility] [address] [place], [address] MCHC Auto mass conc (RBC) 32.3 {g/gl} Normal 32-36 [facility] Work Phone: MCHC mass conc (RBC) 32.3 {g/gl} Normal 32-36 Com prehensive Internal Medicine Work Phone: Comment on above: [facility] [address] [place], [phone] MCV Auto Entitic volume (RBC) 92.0 fL Normal 81-99 [facility] Work Phone: MCV Entitic volume (RBC) 92.0 fL Normal 81-99 [facility] Work Phone: Comment on above: [facility] [address] [place], [address] Monocytes/100 WBC Auto (Bld) 10.2 % Abnormal 0-10 [facility] Work Phone: Comment on above: [facility] [address] [place], [address] Neutrophils/100 WBC (Bld) 64.2 % Normal 47-70 [facility] Work Phone: Comment on above: [facility] [address] [place], [address] Neutrophils/100 WBC Auto (Bld) 64.2 % Normal 47-70 [facility] Work Phone: Platelet mean volume Auto Entitic volume (Bld) 9.1 fL Normal 6.2-12.0 [facility] Work Phone: Platelet mean volume Entitic volume (Bld) 9.1 fL Normal 6.2-12.0 Comprehensi Internal Medicine Work Phone: Comment on above: [facility] [address] [place], [address] Platelets #/vol (Bld) 261 10*3/uL Normal 150-450 [facility] Work Phone: Comment on above: [facility] [address] [place], [place], [phone] Platelets Auto #/vol (Bld) 261 10*3/uL Normal 150-450 [facility] Work Phone: RBC #/vol (Bld) 4.48 {M/mm3} Normal 4.2-5.4 Compreh ensive Internal Medicine Work Phone: Comment on above: [facility] [address] [place], [place], [phone] RBC Auto #/vol (Bld) 4.48 {M/mm3} Normal 4.2-5.4 Co mprehensive Internal Medicine Work Phone: RDW SD 46.6 fL Abnormal 35.1-43.9 [facility] Work Phone: Comment on above: [facility] [address] [place], [place], [phone] WBC #/vol (Bld) 5.8 10*3/uL Normal 4.4-11.0 Comprehe nsive Internal Medicine Work Phone: Comment on above: [facility] [address] [place], [place], [phone] WBC Auto #/vol (Bld) 5.8 10*3/uL Normal 4.4-11.0 Com prehensive Internal Medicine Work Phone: Comprehensive Metabolic Prof ilOrdered By: Shotgun [employer] Reprinting Unit Operator on 11-10-2017 Comprehensive metabolic 2000 panel 78 U/L Normal 45-117 [facility] Work Phone: Comment on above: [facility] [address] [place], [place], [phone] Comprehensive metabolic 2000 panel 11 mg/dL Normal 7-18 [facility] Work Phone: Comment on above: [facility] [address] [place], [place], [phone] Comprehensive metabolic 2000 panel 0.86 mg/dL Normal 0.55-1.02 [facility] Work Phone: Comment on above: The validity of the calculated GFR AND GFRAA in patients over70 years has not been determined. Clinical correlation isessential. [facility] [facility] [address] [place], [address] Comprehensive metabolic 2000 panel 29.0 mmol/L Normal 21.0-32.0 [facility] Work Phone: Comment on above: [facility] [address] [place], [address] Comprehensive metabolic 2000 panel 105 mmol/L Normal 98-107 [facility] Work Phone: Comment on above: [facility] [address] [place], [address] Comprehensive metabolic 2000 panel 3.9 mmol/L Normal 3.5-5.1 [facility] Work Phone: Comment on above: [facility] [address] [place], [address] Comprehensive metabolic 2000 panel 141 mmol/L Normal 136-145 [facility] Work Phone: Comment on above: [facility] [address] [place], [address] Comprehensive metabolic 2000 panel 90 mg/dL Normal 74-106 [facility] Work Phone: Comment on above: Please note revised GLUCOSE reference range [id number]/02/2018. [facility] [address] [place], [address] Comprehensive metabolic 2000 panel 15 U/L Normal 15-37 [facility] Work Phone: Comment on above: [facility] [address] [place], [address] Comprehensive metabolic 2000 panel 1.20 mg/dL Abnormal 0.20-1.00 [facility] Work Phone: Comment on above: [facility] [address] [place], [address] Comprehensive metabolic 2000 panel 71 mL/min Normal [facility] Work Phone: Comment on above: Non- GFR Calc [facility]ital [address] [place], [address] Comprehensive metabolic 2000 panel 86 mL/min Normal [facility] Work Phone: Comment on above: GFR Calc [facility]ital [address] [place], [address] Comprehensive metabolic 2000 panel 12.9 {RATIO} Normal 10-20 [facility] Work Phone: Comment on above: [facility] [address] [place], [address] Comprehensive metabolic 2000 panel 7.6 g/dL Normal 6.4-8.2 [facility] Work Phone: Comment on above: [facility] [address] [place], [address] Comprehensive metabolic 2000 panel 4.0 g/dL Normal 3.2-5.0 [facility] Work Phone: Comment on above: [facility] [address] [place], [address] Comprehensive metabolic 2000 panel 23 U/L Normal 13-56 [facility] Work Phone: Comment on above: Please note revised ALT reference range [id number]/28/2018. [facility]ital [address] [place], [address] Comprehensive metabolic 2000 panel 7 1 Normal 5-15 [facility] Work Phone: Comment on above: [facility] spital [address] [place], [address] Comprehensive metabolic 2000 panel 3.6 g/dL Normal 2.2-4.2 [facility] Work Phone: Comment on above: [facility] [address] [place], [place], [id number] Comprehensive metabolic 2000 panel 1.1 {RATIO} Normal 0.9-2.4 [facility] Work Phone: Comment on above: [facility] [address] [place], [place], [id number] Comprehensive metabolic 2000 panel 8.6 mg/dL Normal 8.5-10.1 [facility] Work Phone: Comment on above: [facility] [address] [place], [place], [phone] CBC W/Diff, AutomatedOrdered By: [employer] Repr[employer]ing [employer] Operator on 05-10-2017 Absolute Lymph 1.92 {X10_3/ul} Normal 0.83-4.51 Compr ehensive Internal Medicine Work Phone: Absolute Neut 2.7 {X10_3/uL} Normal 2.0-7.7 Compreh ensive Internal Medicine Work Phone: Comment on above: [facility] [address] [place], [address] Basophils/100 WBC (Bld) 0.5 % Normal 0-1 C omprehensive Internal Medicine Work Phone: Comment on above: [facility] [address] [place], [address] Basophils/100 WBC Auto (Bld) 0.5 % Normal 0-1 [facility] Work Phone: Eosinophils/100 WBC (Bld) 3.2 % Normal 0-5 [facility] Work Phone: Comment on above: [facility] [address] [place], [address] Eosinophils/100 WBC Auto (Bld) 3.2 % Normal 0-5 [facility] Work Phone: Erythrocyte distribution width Auto Ratio (RBC) 13.3 % Normal 11.6-14.6 [facility] Work Phone: Erythrocyte distribution width Ratio (RBC) 13.3 % Normal 11.6-14.6 [facility] Work Phone: Comment on above: [facility] [address] [place], [place], [phone] Hematocrit Auto Volume Fraction (Bld) 38.4 % Normal 37-47 [facility] Work Phone: Hematocrit Volume Fraction (Bld) 38.4 % Normal 37-47 [facility] Work Phone: Comment on above: [facility] [address] [place], [place], [id number] Hemoglobin mass conc (Bld) 12.6 g/dL Normal 12.0-15.0 [facility] Work Phone: Comment on above: [facility] [address] [place], [address] IM GRAN % 0.200 % Normal 0.0-0.9 [facility] Work Phone: Comment on above: IG% - Immature Granu locytes (promyelocytes, myelocytes andmetamyelocytes) > 1% indicates that a LEFT SHIFT is Present. [facility] [address] [place], [place], [phone] Lymphocytes #/vol (Bld) 1.92 {X10_3/ul} Normal 0.83-4. 51 [facility] Work Phone: Comment on above: [facility] [address] [place], [address] Lymphocytes/100 WBC (Bld) 34.2 % Normal 19-41 [facility] Work Phone: Comment on above: [facility] [address] [place], [address] Lymphocytes/100 WBC Auto (Bld) 34.2 % Normal 19-41 [facility] Work Phone: MCH Auto Entitic mass (RBC) 29.9 pg Normal 27.0-32.0 [facility] Work Phone: MCH Entitic mass (RBC) 29.9 pg Normal 27.0-32.0 [facility] Work Phone: Comment on above: [facility] [address] [place], [place], [phone] MCHC Auto mass conc (RBC) 32.8 {g/gl} Normal 32-36 [facility] Work Phone: MCHC mass conc (RBC) 32.8 {g/gl} Normal 32-36 [facility] prehensive Internal Medicine Work Phone: Comment on above: [facility] [address] [place], [place], [phone] MCV Auto Entitic volume (RBC) 91.2 fL Normal 81-99 [facility] Work Phone: MCV Entitic volume (RBC) 91.2 fL Normal 81-99 [facility] Work Phone: Comment on above: [facility] [address] [place], [address] Monocytes/100 WBC Auto (Bld) 14.1 % Abnormal 0-10 [facility] Work Phone: Comment on above: [facility] [address] [place], [address] Neutrophils/100 WBC (Bld) 47.8 % Normal 47-70 [facility] Work Phone: Comment on above: [facility] [address] [place], [address] Neutrophils/100 WBC Auto (Bld) 47.8 % Normal 47-70 [facility] Work Phone: Platelet mean volume Auto Entitic volume (Bld) 9.1 fL Normal 6.2-12.0 [facility] Work Phone: Platelet mean volume Entitic volume (Bld) 9.1 fL Normal 6.2-12.0 Comprehensi ve Internal Medicine Work Phone: Comment on above: [facility] [address] [place], [address] Platelets #/vol (Bld) 218 10*3/uL Normal 150-450 Co mprehensive Internal Medicine Work Phone: Comment on above: [facility] [address] [place], [address] Platelets Auto #/vol (Bld) 218 10*3/uL Normal 150-450 [facility] Work Phone: RBC #/vol (Bld) 4.21 {M/mm3} Normal 4.2-5.4 Compreh ensive Internal Medicine Work Phone: Comment on above: [facility] [address] [place], [address] RBC Auto #/vol (Bld) 4.21 {M/mm3} Normal 4.2-5.4 Co mprehensive Internal Medicine Work Phone: RDW SD 43.7 fL Normal 35.1-43.9 [facility] Work Phone: Comment on above: [facility] [address] [place], [address] WBC #/vol (Bld) 5.6 10*3/uL Normal 4.4-11.0 Comprehe nsive Internal Medicine Work Phone: Comment on above: [facility] [address] [place], [address] WBC Auto #/vol (Bld) 5.6 10*3/uL Normal 4.4-11.0 [facility] prehensive Internal Medicine Work Phone: Comprehensive Metabolic Prof ilOrdered By: [employer]ing [employer] Operator on 05-10-2017 Comprehensive metabolic 2000 panel 7 1 Normal 5-15 [facility] Work Phone: Comment on above: [facility] [address] [place], [address] Comprehensive metabolic 2000 panel 104 mmol/L Normal 98-107 [facility] Work Phone: Comment on above: [facility] spital [address] [place], [address] Comprehensive metabolic 2000 panel 3.7 mmol/L Normal 3.5-5.1 [facility] Work Phone: Comment on above: [facility] spital [address] [place], [address] Comprehensive metabolic 2000 panel 140 mmol/L Normal 136-145 [facility] Work Phone: Comment on above: [facility] [address] [place], [address] Comprehensive metabolic 2000 panel 1.00 mg/dL Normal 0.20-1.00 [facility] Work Phone: Comment on above: [facility] [address] [place], [address] Comprehensive metabolic 2000 panel 24 U/L Normal 12-78 [facility] Work Phone: Comment on above: [facility] [address] [place], [address] Comprehensive metabolic 2000 panel 72 U/L Normal 45-117 [facility] Work Phone: Comment on above: [facility] [address] [place], [address] Comprehensive metabolic 2000 panel 16 U/L Normal 15-37 [facility] Work Phone: Comment on above: [facility] spital [address] [place], [address] Comprehensive metabolic 2000 panel 8.9 mg/dL Normal 8.5-10.1 [facility] Work Phone: Comment on above: [facility] [address] [place], [address] Comprehensive metabolic 2000 panel 29.0 mmol/L Normal 21.0-32.0 [facility] Work Phone: Comment on above: [facility] spital [address] [place], [address] Comprehensive metabolic 2000 panel 1.1 {RATIO} Normal 0.9-2.4 [facility] Work Phone: Comment on above: [facility] spital [address] [place], [address] Comprehensive metabolic 2000 panel 3.5 g/dL Normal 2.3-3.5 [facility] Work Phone: Comment on above: [facility] [address] [place], [address] Comprehensive metabolic 2000 panel 3.7 g/dL Normal 3.4-5.0 [facility] Work Phone: Comment on above: [facility] [address] [place], [place], [address] Comprehensive metabolic 2000 panel 7.2 g/dL Normal 6.4-8.2 [facility] Work Phone: Comment on above: [facility] [address] [place], [address] Comprehensive metabolic 2000 panel 16.6 {RATIO} Normal 10-20 [facility] Work Phone: Comment on above: [facility] [address] [place], [address] Comprehensive metabolic 2000 panel 87 mL/min Normal [facility] Work Phone: Comment on above: GFR Calc [facility] spital [address] [place], [address] Comprehensive metabolic 2000 panel 72 mL/min Normal [facility] Work Phone: Comment on above: Non- GFR Calc [facility] [address] [place], [place], [phone] Comprehensive metabolic 2000 panel 0.84 mg/dL Normal 0.55-1.02 [facility] Work Phone: Comment on above: The validity of the calculated GFR AND GFRAA in patients over70 years has not been determined. Clinical correlation isessential. [facility] [address] [place], [place], [phone] Comprehensive metabolic 2000 panel 14 mg/dL Normal 7-18 [facility] Work Phone: Comment on above: [facility] [address] [place], [place], [phone] Comprehensive metabolic 2000 panel 91 mg/dL Normal 70-110 [facility] Work Phone: Comment on above: [facility] [address] [place], [place], [phone] CBC W/Diff, AutomatedOrdered By: [employer] Repr[employer]ing [employer] Operator on 02-17-2017 Absolute Lymph 1.90 {X10_3/ul} Normal 0.83-4.51 Compr ehensive Internal Medicine Work Phone: Absolute Neut 3.2 {X10_3/uL} Normal 2.0-7.7 Compreh ensive Internal Medicine Work Phone: Comment on above: [facility] [address] [place], [place], [phone] Basophils/100 WBC (Bld) 0.5 % Normal 0-1 C omprehensive Internal Medicine Work Phone: Comment on above: [facility] [address] [place], [place], [phone] Basophils/100 WBC Auto (Bld) 0.5 % Normal 0-1 [facility] Work Phone: Eosinophils/100 WBC (Bld) 2.3 % Normal 0-5 [facility] Work Phone: Comment on above: [facility] [address] [place], [address] Eosinophils/100 WBC Auto (Bld) 2.3 % Normal 0-5 [facility] Work Phone: Erythrocyte distribution width Auto Ratio (RBC) 13.0 % Normal 11.6-14.6 [facility] Work Phone: Erythrocyte distribution width Ratio (RBC) 13.0 % Normal 11.6-14.6 [facility] Work Phone: Comment on above: [place] [facility] [address] [place], [address] Hematocrit Auto Volume Fraction (Bld) 39.5 % Normal 37-47 [facility] Work Phone: Hematocrit Volume Fraction (Bld) 39.5 % Normal 37-47 [facility] Work Phone: Comment on above: [facility] [facility] [address] [place], [address] Hemoglobin mass conc (Bld) 13.1 g/dL Normal 12.0-15.0 [facility] Work Phone: Comment on above: [place] [address] [place], [address] IM GRAN % 0.200 % Normal 0.0-0.9 [facility] Work Phone: Comment on above: IG% - Immature Granu locytes (promyelocytes, myelocytes andmetamyelocytes) > 1% indicates that a LEFT SHIFT is Present. [facility] [facility] [address] [place], [address] Lymphocytes #/vol (Bld) 1.90 {X10_3/ul} Normal 0.83-4. 51 [facility] Work Phone: Comment on above: [facility] [address] [place], [address] Lymphocytes/100 WBC (Bld) 30.9 % Normal 19-41 [facility] Work Phone: Comment on above: [facility] [address] [place], [address] Lymphocytes/100 WBC Auto (Bld) 30.9 % Normal 19-41 [facility] Work Phone: MCH Auto Entitic mass (RBC) 30.4 pg Normal 27.0-32.0 [facility] Work Phone: MCH Entitic mass (RBC) 30.4 pg Normal 27.0-32.0 Co [facility] Internal Medicine Work Phone: Comment on above: [facility] [address] [place], [address] MCHC Auto mass conc (RBC) 33.2 {g/gl} Normal 32-36 [facility] Work Phone: MCHC mass conc (RBC) 33.2 {g/gl} Normal 32-36 [facility] Internal Medicine Work Phone: Comment on above: [facility] [address] [place], [address] MCV Auto Entitic volume (RBC) 91.6 fL Normal 81-99 [facility] Work Phone: MCV Entitic volume (RBC) 91.6 fL Normal 81-99 [facility] Work Phone: Comment on above: [facility] [address] [place], [address] Monocytes/100 WBC Auto (Bld) 13.8 % Abnormal 0-10 [facility] Work Phone: Comment on above: [facility] [address] [place], [address] Neutrophils/100 WBC (Bld) 52.3 % Normal 47-70 [facility] Work Phone: Comment on above: [facility] [address] [place], [address] Neutrophils/100 WBC Auto (Bld) 52.3 % Normal 47-70 [facility] Work Phone: Platelet mean volume Auto Entitic volume (Bld) 9.5 fL Normal 6.2-12.0 [facility] Work Phone: Platelet mean volume Entitic volume (Bld) 9.5 fL Normal 6.2-12.0 Comprehensi ve Internal Medicine Work Phone: Comment on above: [facility] [address] [place], [address] Platelets #/vol (Bld) 265 10*3/uL Normal 150-450 [facility] Work Phone: Comment on above: [facility] [address] [place], [address] Platelets Auto #/vol (Bld) 265 10*3/uL Normal 150-450 [facility] Work Phone: RBC #/vol (Bld) 4.31 {M/mm3} Normal 4.2-5.4 Compreh ensive Internal Medicine Work Phone: Comment on above: [facility] [address] [place], [address] RBC Auto #/vol (Bld) 4.31 {M/mm3} Normal 4.2-5.4 Co [facility] Internal Medicine Work Phone: RDW SD 42.6 fL Normal 35.1-43.9 [facility] Internal Medicine Work Phone: Comment on above: [facility] [address] [place], [address] WBC #/vol (Bld) 6.2 10*3/uL Normal 4.4-11.0 Comprehe nsive Internal Medicine Work Phone: Comment on above: [facility] [address] [place], [address] WBC Auto #/vol (Bld) 6.2 10*3/uL Normal 4.4-11.0 Com prehensive Internal Medicine Work Phone: Comprehensive Metabolic Prof ilOrdered By: [employer] Repr[employer]ing Unit Operator on 02-17-2017 Comprehensive metabolic 2000 panel 80 mL/min Normal [facility] Work Phone: Comment on above: Non- GFR Calc [facility] [address] [place], [place], [phone] Comprehensive metabolic 2000 panel 22 U/L Normal 12-78 [facility] Work Phone: Comment on above: [facility] spital [address] [place], [place], [phone] Comprehensive metabolic 2000 panel 29.0 mmol/L Normal 21.0-32.0 [facility] Work Phone: Comment on above: [facility] [address] [place], [place], [phone] Comprehensive metabolic 2000 panel 104 mmol/L Normal 98-107 [facility] Work Phone: Comment on above: [facility] [address] [place], [place], [phone] Comprehensive metabolic 2000 panel 3.8 mmol/L Normal 3.5-5.1 [facility] Work Phone: Comment on above: [facility] [address] [place], [place], [phone] Comprehensive metabolic 2000 panel 140 mmol/L Normal 136-145 [facility] Work Phone: Comment on above: [facility] [address] [place], [place], [phone] Comprehensive metabolic 2000 panel 1.00 mg/dL Normal 0.20-1.00 [facility] Work Phone: Comment on above: [facility] [address] [place], [place], [phone] Comprehensive metabolic 2000 panel 18.1 {RATIO} Normal 10-20 [facility] Work Phone: Comment on above: [facility] [address] [place], [place], [phone] Comprehensive metabolic 2000 panel 14 mg/dL Normal 7-18 [facility] Work Phone: Comment on above: [facility] [address] [place], [place], [phone] Comprehensive metabolic 2000 panel 0.78 mg/dL Normal 0.55-1.02 [facility] Work Phone: Comment on above: The validity of the calculated GFR AND GFRAA in patients over70 years has not been determined. Clinical correlation isessential. [facility] [address] [place], [place], [phone] Comprehensive metabolic 2000 panel 88 mg/dL Normal 70-110 [facility] Work Phone: Comment on above: [facility] [address] [place], [place], [address] Comprehensive metabolic 2000 panel 96 mL/min Normal [facility] Work Phone: Comment on above: GFR Calc [facility] [address] [place], [place], [phone] Comprehensive metabolic 2000 panel 7.4 g/dL Normal 6.4-8.2 [facility] Work Phone: Comment on above: [facility] [address] [place], [place], [address] Comprehensive metabolic 2000 panel 3.7 g/dL Normal 3.4-5.0 [facility] Work Phone: Comment on above: [facility] [address] [place], [place], [phone] Comprehensive metabolic 2000 panel 1.0 {RATIO} Normal 0.9-2.4 [facility] Work Phone: Comment on above: [facility] [address] [place], [place], [phone] Comprehensive metabolic 2000 panel 8.6 mg/dL Normal 8.5-10.1 [facility] Work Phone: Comment on above: [facility] [address] [place], [place], [address] Comprehensive metabolic 2000 panel 15 U/L Normal 15-37 [facility] Work Phone: Comment on above: [facility] [address] [place], [place], [phone] Comprehensive metabolic 2000 panel 119 U/L Abnormal 45-117 [facility] Work Phone: Comment on above: [facility] [address] [place], [place], [phone] Comprehensive metabolic 2000 panel 7 1 Normal 5-15 [facility] Work Phone: Comment on above: [facility] [address] [place], [place], [phone] Office Visiton 02-15-2017 Documentation of current medications (procedure) Done Invalid Interpretation Code [facility] Work Phone: Tobacco use [facility] Never smoker Invalid Interpretation Code [facility] Work Phone: CBC W/Diff, AutomatedOrdered By: [employer] Repr[employer]ing Unit Operator on 11-22-2016 Absolute Lymph 1.61 {X10_3/ul} Normal 0.83-4.51 Compr ehensive Internal Medicine Work Phone: Absolute Neut 2.0 {X10_3/uL} Normal 2.0-7.7 Compreh ensive Internal Medicine Work Phone: Comment on above: [facility] [address] [place], [place], [phone] Basophils/100 WBC (Bld) 0.7 % Normal 0-1 C omprehensive Internal Medicine Work Phone: Comment on above: [facility] [address] [place], [place], [phone] Basophils/100 WBC Auto (Bld) 0.7 % Normal 0-1 [facility] Work Phone: Eosinophils/100 WBC (Bld) 3.8 % Normal 0-5 [facility] Work Phone: Comment on above: [facility] [address] [place], [address] Eosinophils/100 WBC Auto (Bld) 3.8 % Normal 0-5 [facility] Work Phone: Erythrocyte distribution width Auto Ratio (RBC) 13.7 % Normal 11.6-14.6 [facility] Work Phone: Erythrocyte distribution width Ratio (RBC) 13.7 % Normal 11.6-14.6 [facility] Work Phone: Comment on above: [place] [address] [place], [address] Hematocrit Auto Volume Fraction (Bld) 39.6 % Normal 37-47 [facility] Work Phone: Hematocrit Volume Fraction (Bld) 39.6 % Normal 37-47 [facility] Work Phone: Comment on above: [place] [address] [place], [address] Hemoglobin mass conc (Bld) 12.7 g/dL Normal 12.0-15.0 [facility] Work Phone: Comment on above: [place] [address] [place], [address] IM GRAN % 0.200 % Normal 0.0-0.9 [facility] Work Phone: Comment on above: IG% - Immature Granu locytes (promyelocytes, myelocytes andmetamyelocytes) > 1% indicates that a LEFT SHIFT is Present. [place] [address] [place], [place], [phone] Lymphocytes #/vol (Bld) 1.61 {X10_3/ul} Normal 0.83-4. 51 [facility] Work Phone: Comment on above: [facility] [address] [place], [address] Lymphocytes/100 WBC (Bld) 36.4 % Normal 19-41 [facility] Work Phone: Comment on above: [facility] [address] [place], [address] Lymphocytes/100 WBC Auto (Bld) 36.4 % Normal 19-41 Comprehensive Internal Medicine Work Phone: MCH Auto Entitic mass (RBC) 29.7 pg Normal 27.0-32.0 [facility] Work Phone: MCH Entitic mass (RBC) 29.7 pg Normal 27.0-32.0 [facility] Internal Medicine Work Phone: Comment on above: [facility] [address] [place], [address] MCHC Auto mass conc (RBC) 32.1 {g/gl} Normal 32-36 [facility] Work Phone: MCHC mass conc (RBC) 32.1 {g/gl} Normal 32-36 [facility] Internal Medicine Work Phone: Comment on above: [facility] [address] [place], [address] MCV Auto Entitic volume (RBC) 92.5 fL Normal 81-99 [facility] Work Phone: MCV Entitic volume (RBC) 92.5 fL Normal 81-99 [facility] Work Phone: Comment on above: [facility] [address] [place], [address] Monocytes/100 WBC Auto (Bld) 13.1 % Abnormal 0-10 [facility] Work Phone: Comment on above: [facility] [address] [place], [address] Neutrophils/100 WBC (Bld) 45.8 % Abnormal 47-70 [facility] Work Phone: Comment on above: [facility] [address] [place], [address] Neutrophils/100 WBC Auto (Bld) 45.8 % Abnormal 47-70 [facility] Work Phone: Platelet mean volume Auto Entitic volume (Bld) 9.4 fL Normal 6.2-12.0 [facility] Work Phone: Platelet mean volume Entitic volume (Bld) 9.4 fL Normal 6.2-12.0 Comprehensi Internal Medicine Work Phone: Comment on above: [facility] [address] [place], [address] Platelets #/vol (Bld) 240 10*3/uL Normal 150-450 [facility] Work Phone: Comment on above: [facility] [address] [place], [address] Platelets Auto #/vol (Bld) 240 10*3/uL Normal 150-450 [facility] Work Phone: RBC #/vol (Bld) 4.28 {M/mm3} Normal 4.2-5.4 Compreh ensive Internal Medicine Work Phone: Comment on above: [facility] [address] [place], [address] RBC Auto #/vol (Bld) 4.28 {M/mm3} Normal 4.2-5.4 [facility] Work Phone: RDW SD 45.7 fL Abnormal 35.1-43.9 [facility] Work Phone: Comment on above: [facility] [address] [place], [address] WBC #/vol (Bld) 4.4 10*3/uL Normal 4.4-11.0 Comprehe nsive Internal Medicine Work Phone: Comment on above: [facility] [address] [place], [place], [phone] WBC Auto #/vol (Bld) 4.4 10*3/uL Normal 4.4-11.0 Com prehensive Internal Medicine Work Phone: [facility] Metabolic Prof ilOrdered By: [employer] Repr[employer]ing Unit Operator on 11-22-2016 Comprehensive metabolic 2000 panel 16 U/L Normal 15-37 [facility] Work Phone: Comment on above: [facility] [address] [place], [place], [phone] Comprehensive metabolic 2000 panel 8.9 mg/dL Normal 8.5-10.1 [facility] Work Phone: Comment on above: [facility] [address] [place], [place], [phone] Comprehensive metabolic 2000 panel 1.1 {RATIO} Normal 0.9-2.4 [facility] Work Phone: Comment on above: [facility] [address] [place], [place], [id number] Comprehensive metabolic 2000 panel 3.4 g/dL Normal 2.3-3.5 [facility] Work Phone: Comment on above: [facility] [address] [place], [place], [address] Comprehensive metabolic 2000 panel 3.9 g/dL Normal 3.4-5.0 [facility] Work Phone: Comment on above: [facility] [address] [place], [place], [phone] Comprehensive metabolic 2000 panel 7.3 g/dL Normal 6.4-8.2 [facility] Work Phone: Comment on above: [facility] [address] [place], [place], [address] Comprehensive metabolic 2000 panel 12.9 {RATIO} Normal 10-20 [facility] Work Phone: Comment on above: [facility] [address] [place], [address] Comprehensive metabolic 2000 panel 86 mL/min Normal [facility] Work Phone: Comment on above: GFR Calc [facility] [address] [place], [address] Comprehensive metabolic 2000 panel 71 mL/min Normal [facility] Work Phone: Comment on above: Non- GFR Calc [facility] [address] [place], [place], [phone] Comprehensive metabolic 2000 panel 0.86 mg/dL Normal 0.55-1.02 [facility] Work Phone: Comment on above: The validity of the calculated GFR AND GFRAA in patients over70 years has not been determined. Clinical correlation isessential. [facility] [address] [place], [place], [address] Comprehensive metabolic 2000 panel 6 1 Normal 5-15 [facility] Work Phone: Comment on above: [facility] [address] [place], [place], [address] Comprehensive metabolic 2000 panel 28.0 mmol/L Normal 21.0-32.0 [facility] Work Phone: Comment on above: [facility] [address] [place], [address] Comprehensive metabolic 2000 panel 107 mmol/L Normal 98-107 [facility] Work Phone: Comment on above: [facility] [address] [place], [place], [address] Comprehensive metabolic 2000 panel 0.80 mg/dL Normal 0.20-1.00 [facility] Work Phone: Comment on above: [facility] [address] [place], [address] Comprehensive metabolic 2000 panel 3.6 mmol/L Normal 3.5-5.1 [facility] Work Phone: Comment on above: [facility] [address] [place], [address] Comprehensive metabolic 2000 panel 141 mmol/L Normal 136-145 [facility] Work Phone: Comment on above: [facility] [address] [place], [address] Comprehensive metabolic 2000 panel 100 mg/dL Normal 70-110 [facility] Work Phone: Comment on above: [facility] [address] [place], [address] Comprehensive metabolic 2000 panel 22 U/L Normal 12-78 [facility] Work Phone: Comment on above: [facility] [address] [place], [place], [address] Comprehensive metabolic 2000 panel 79 U/L Normal 45-117 [facility] Work Phone: Comment on above: [facility] [address] [place], [place], [address] Comprehensive metabolic 2000 panel 11 mg/dL Normal 7-18 [facility] Work Phone: Comment on above: [facility] [address] [place], [place], [address] CBC W/Diff, AutomatedOrdered By: [employer] Repr[employer]ing [employer] Operator on 08-05-2016 Absolute Lymph 1.51 {X10_3/ul} Normal 0.83-4.51 Compr ehensive Internal Medicine Work Phone: Absolute Neut 2.8 {X10_3/uL} Normal 2.0-7.7 Compreh ensive Internal Medicine Work Phone: Comment on above: [facility] [address] [place], [address] Basophils/100 WBC (Bld) 0.8 % Normal 0-1 C omprehensive Internal Medicine Work Phone: Comment on above: [facility] [address] [place], [address] Basophils/100 WBC Auto (Bld) 0.8 % Normal 0-1 [facility] Work Phone: Eosinophils/100 WBC (Bld) 2.2 % Normal 0-5 [facility] Work Phone: Comment on above: [facility] [address] [place], [address] Eosinophils/100 WBC Auto (Bld) 2.2 % Normal 0-5 [facility] Work Phone: Erythrocyte distribution width Auto Ratio (RBC) 12.7 % Normal 11.6-14.6 [facility] Work Phone: Erythrocyte distribution width Ratio (RBC) 12.7 % Normal 11.6-14.6 [facility] Work Phone: Comment on above: [facility] [address] [place], [address] Hematocrit Auto Volume Fraction (Bld) 42.6 % Normal 37-47 [facility] Work Phone: Hematocrit Volume Fraction (Bld) 42.6 % Normal 37-47 [facility] Work Phone: Comment on above: [facility] [address] [place], [address] Hemoglobin mass conc (Bld) 14.0 g/dL Normal 12.0-15.0 [facility] Work Phone: Comment on above: [facility] [address] [place], [address] IM GRAN % 0.200 % Normal 0.0-0.9 [facility] Work Phone: Comment on above: IG% - Immature Granu locytes (promyelocytes, myelocytes andmetamyelocytes) > 1% indicates that a LEFT SHIFT is Present. [facility] [address] [place], [place], [phone] Lymphocytes #/vol (Bld) 1.51 {X10_3/ul} Normal 0.83-4. 51 [facility] Work Phone: Comment on above: [place] [address] [place], [address] Lymphocytes/100 WBC (Bld) 30.1 % Normal 19-41 [facility] Work Phone: Comment on above: [place] [address] [place], [address] Lymphocytes/100 WBC Auto (Bld) 30.1 % Normal 19-41 [facility] Work Phone: MCH Auto Entitic mass (RBC) 29.5 pg Normal 27.0-32.0 [facility] Work Phone: MCH Entitic mass (RBC) 29.5 pg Normal 27.0-32.0 [facility] Internal Medicine Work Phone: Comment on above: [place] [address] [place], [address] MCHC Auto mass conc (RBC) 32.9 {g/gl} Normal 32-36 [facility] Work Phone: MCHC mass conc (RBC) 32.9 {g/gl} Normal 32-36 [facility] Internal Medicine Work Phone: Comment on above: [place] [address] [place], [address] MCV Auto Entitic volume (RBC) 89.9 fL Normal 81-99 [facility] Work Phone: MCV Entitic volume (RBC) 89.9 fL Normal 81-99 [facility] Work Phone: Comment on above: [place] [address] [place], [address] Monocytes/100 WBC Auto (Bld) 11.6 % Abnormal 0-10 [facility] Work Phone: Comment on above: [facility] [address] [place], [address] Neutrophils/100 WBC (Bld) 55.1 % Normal 47-70 [facility] Work Phone: Comment on above: [facility] [address] [place], [address] Neutrophils/100 WBC Auto (Bld) 55.1 % Normal 47-70 [facility] Work Phone: Platelet mean volume Auto Entitic volume (Bld) 9.3 fL Normal 6.2-12.0 [facility] Work Phone: Platelet mean volume Entitic volume (Bld) 9.3 fL Normal 6.2-12.0 Comprehensi Internal Medicine Work Phone: Comment on above: [facility] [address] [place], [address] Platelets #/vol (Bld) 264 10*3/uL Normal 150-450 [facility] Work Phone: Comment on above: [facility] [address] [place], [address] Platelets Auto #/vol (Bld) 264 10*3/uL Normal 150-450 [facility] Work Phone: RBC #/vol (Bld) 4.74 {M/mm3} Normal 4.2-5.4 Compreh ensive Internal Medicine Work Phone: Comment on above: [facility] [address] [place], [address] RBC Auto #/vol (Bld) 4.74 {M/mm3} Normal 4.2-5.4 [facility] Work Phone: RDW SD 41.6 fL Normal 35.1-43.9 [facility] Work Phone: Comment on above: [facility] [address] [place], [place], [id number] WBC #/vol (Bld) 5.0 10*3/uL Normal 4.4-11.0 Comprehe nsive Internal Medicine Work Phone: Comment on above: [facility] [address] [place], [place], [phone] WBC Auto #/vol (Bld) 5.0 10*3/uL Normal 4.4-11.0 Com prehensive Internal Medicine Work Phone: [facility] Metabolic Prof ilOrdered By: [employer] Repr[employer]ing [employer] Operator on 08-05-2016 Comprehensive metabolic 2000 panel 1.20 mg/dL Abnormal 0.20-1.00 [facility] Work Phone: Comment on above: [facility] [address] [place], [place], [address] Comprehensive metabolic 2000 panel 9 mg/dL Normal 7-18 [facility] Work Phone: Comment on above: [facility] [address] [place], [place], [phone] Comprehensive metabolic 2000 panel 78 mL/min Normal [facility] Work Phone: Comment on above: GFR Calc [facility] [address] [place], [address] Comprehensive metabolic 2000 panel 19 U/L Normal 12-78 [facility] Work Phone: Comment on above: [facility] [address] [place], [place], [phone] Comprehensive metabolic 2000 panel 82 U/L Normal 45-117 [facility] Work Phone: Comment on above: [facility] [address] [place], [place], [phone] Comprehensive metabolic 2000 panel 9.7 {RATIO} Abnormal 10-20 [facility] Work Phone: Comment on above: [facility] ingetal [address] [place], [place], [address] Comprehensive metabolic 2000 panel 138 mmol/L Normal 136-145 [facility] Work Phone: Comment on above: [facility] [address] [place], [address] Comprehensive metabolic 2000 panel 18 U/L Normal 15-37 [facility] Work Phone: Comment on above: [facility] [address] [place], [place], [address] Comprehensive metabolic 2000 panel 9.2 mg/dL Normal 8.5-10.1 [facility] Work Phone: Comment on above: [facility] [address] [place], [place], [address] Comprehensive metabolic 2000 panel 3.9 mmol/L Normal 3.5-5.1 [facility] Work Phone: Comment on above: [facility] [address] [place], [place], [address] Comprehensive metabolic 2000 panel 102 mmol/L Normal 98-107 [facility] Work Phone: Comment on above: [facility] [address] [place], [address] Comprehensive metabolic 2000 panel 1.1 {RATIO} Normal 0.9-2.4 [facility] Work Phone: Comment on above: [facility] [address] [place], [address] Comprehensive metabolic 2000 panel 27.0 mmol/L Normal 21.0-32.0 [facility] Work Phone: Comment on above: [facility] [address] [place], [address] Comprehensive metabolic 2000 panel 9 1 Normal 5-15 [facility] Work Phone: Comment on above: [facility] [address] [place], [place], [phone] Comprehensive metabolic 2000 panel 7.7 g/dL Normal 6.4-8.2 [facility] Work Phone: Comment on above: [facility] [address] [place], [place], [phone] Comprehensive metabolic 2000 panel 4.1 g/dL Normal 3.4-5.0 [facility] Work Phone: Comment on above: [facility] [address] [place], [place], [phone] Comprehensive metabolic 2000 panel 65 mL/min Normal [facility] Work Phone: Comment on above: Non- GFR Calc [place] [address] [place], [place], [phone] Comprehensive metabolic 2000 panel 0.93 mg/dL Normal 0.55-1.02 [facility] Work Phone: Comment on above: The validity of the calculated GFR AND GFRAA in patients over70 years has not been determined. Clinical correlation isessential. [facility] [address] [place], [place], [address] Comprehensive metabolic 2000 panel 3.6 g/dL Abnormal 2.3-3.5 [facility] Work Phone: Comment on above: [facility] [address] [place], [place], [address] Comprehensive metabolic 2000 panel 101 mg/dL Normal 70-110 [facility] Work Phone: Comment on above: [facility] [address] [place], [place], [address] Office Visiton 04-13-2016 [facility] Work Phone: Tobacco smoking status NHIS Never smoker [facility] Work Phone: CBC W/Diff, AutomatedOrdered By: [employer] Reprinting Unit Operator on 03-15-2016 Absolute Lymph 1.57 {X10_3/ul} Normal 0.83-4.51 Compr ehensive Internal Medicine Work Phone: Absolute Neut 3.0 {X10_3/uL} Normal 2.0-7.7 Compreh ensive Internal Medicine Work Phone: Comment on above: [facility] [address] [place], [address] Basophils/100 WBC (Bld) 0.7 % Normal 0-1 C omprehensive Internal Medicine Work Phone: Comment on above: [facility] [address] [place], [address] Basophils/100 WBC Auto (Bld) 0.7 % Normal 0-1 [facility] Work Phone: Eosinophils/100 WBC (Bld) 3.8 % Normal 0-5 [facility] Work Phone: Comment on above: [facility] [address] [place], [address] Eosinophils/100 WBC Auto (Bld) 3.8 % Normal 0-5 [facility] Work Phone: Erythrocyte distribution width Auto Ratio (RBC) 12.8 % Normal 11.6-14.6 [facility] Work Phone: Erythrocyte distribution width Ratio (RBC) 12.8 % Normal 11.6-14.6 [facility] Work Phone: Comment on above: [facility] [address] [place], [address] Hematocrit Auto Volume Fraction (Bld) 38.7 % Normal 37-47 [facility] Work Phone: Hematocrit Volume Fraction (Bld) 38.7 % Normal 37-47 [facility] Work Phone: Comment on above: [facility] [address] [place], [address] Hemoglobin mass conc (Bld) 13.0 g/dL Normal 12.0-15.0 [facility] Work Phone: Comment on above: [place] [address] [place], [address] IM GRAN % 0.200 % Normal 0.0-0.9 [facility] Work Phone: Comment on above: IG% - Immature Granu locytes (promyelocytes, myelocytes andmetamyelocytes) > 1% indicates that a LEFT SHIFT is Present. [place] [address] [place], [address] Lymphocytes #/vol (Bld) 1.57 {X10_3/ul} Normal 0.83-4. 51 [facility] Work Phone: Comment on above: [place] [address] [place], [address] Lymphocytes/100 WBC (Bld) 28.5 % Normal 19-41 [facility] Work Phone: Comment on above: [place] [address] [place], [address] Lymphocytes/100 WBC Auto (Bld) 28.5 % Normal 19-41 [facility] Work Phone: MCH Auto Entitic mass (RBC) 29.9 pg Normal 27.0-32.0 [facility] Internal Medicine Work Phone: MCH Entitic mass (RBC) 29.9 pg Normal 27.0-32.0 [facility] Internal Medicine Work Phone: Comment on above: [place] [address] [place], [address] MCHC Auto mass conc (RBC) 33.6 {g/gl} Normal 32-36 [facility] Work Phone: MCHC mass conc (RBC) 33.6 {g/gl} Normal 32-36 Com prehensive Internal Medicine Work Phone: Comment on above: [facility] [address] [place], [address] MCV Auto Entitic volume (RBC) 89.0 fL Normal 81-99 [facility] Work Phone: MCV Entitic volume (RBC) 89.0 fL Normal 81-99 [facility] Work Phone: Comment on above: [facility] [address] [place], [address] Monocytes/100 WBC Auto (Bld) 12.5 % Abnormal 0-10 [facility] Work Phone: Comment on above: [facility] [address] [place], [address] Neutrophils/100 WBC (Bld) 54.3 % Normal 47-70 [facility] Work Phone: Comment on above: [facility] [address] [place], [address] Neutrophils/100 WBC Auto (Bld) 54.3 % Normal 47-70 [facility] Work Phone: Platelet mean volume Auto Entitic volume (Bld) 9.1 fL Normal 6.2-12.0 [facility] Work Phone: Platelet mean volume Entitic volume (Bld) 9.1 fL Normal 6.2-12.0 Comprehensi Internal Medicine Work Phone: Comment on above: [facility] [address] [place], [address] Platelets #/vol (Bld) 250 10*3/uL Normal 150-450 [facility] Work Phone: Comment on above: [facility] [address] [place], [address] Platelets Auto #/vol (Bld) 250 10*3/uL Normal 150-450 [facility] Work Phone: RBC #/vol (Bld) 4.35 {M/mm3} Normal 4.2-5.4 Compreh ensive Internal Medicine Work Phone: Comment on above: [facility] [address] [place], [place], [id number] RBC Auto #/vol (Bld) 4.35 {M/mm3} Normal 4.2-5.4 Co mprehensive Internal Medicine Work Phone: RDW SD 41.0 fL Normal 35.1-43.9 [facility] Work Phone: Comment on above: [facility] [address] [place], [place], [phone] WBC #/vol (Bld) 5.5 10*3/uL Normal 4.4-11.0 Comprehe nsive Internal Medicine Work Phone: Comment on above: [facility] [address] [place], [address] WBC Auto #/vol (Bld) 5.5 10*3/uL Normal 4.4-11.0 [facility] prehensive Internal Medicine Work Phone: Comprehensive Metabolic Prof ilOrdered By: [employer]gun [employer] Reprinting Unit Operator on 03-15-2016 Comprehensive metabolic 2000 panel 15 mg/dL Normal 7-18 [facility] Work Phone: Comment on above: [facility] [address] [place], [place], [phone] Comprehensive metabolic 2000 panel 8 1 Normal 5-15 [facility] Work Phone: Comment on above: [facility] [address] [place], [address] Comprehensive metabolic 2000 panel 27.0 mmol/L Normal 21.0-32.0 [facility] Work Phone: Comment on above: [facility] [address] [place], [address] Comprehensive metabolic 2000 panel 105 mmol/L Normal 98-107 [facility] Work Phone: Comment on above: [facility] [address] [place], [address] Comprehensive metabolic 2000 panel 3.9 mmol/L Normal 3.5-5.1 [facility] Work Phone: Comment on above: [facility] [address] [place], [address] Comprehensive metabolic 2000 panel 140 mmol/L Normal 136-145 [facility] Work Phone: Comment on above: [facility] [address] [place], [address] Comprehensive metabolic 2000 panel 1.20 mg/dL Abnormal 0.20-1.00 [facility] Work Phone: Comment on above: [facility] [address] [place], [address] Comprehensive metabolic 2000 panel 21 U/L Normal 12-78 [facility] Work Phone: Comment on above: [facility] [address] [place], [address] Comprehensive metabolic 2000 panel 72 U/L Normal 50-136 [facility] Work Phone: Comment on above: [facility] [address] [place], [address] Comprehensive metabolic 2000 panel 98 mg/dL Normal 70-110 [facility] Work Phone: Comment on above: [facility] [address] [place], [address] Comprehensive metabolic 2000 panel 8.4 mg/dL Abnormal 8.5-10.1 [facility] Work Phone: Comment on above: [facility] [address] [place], [address] Comprehensive metabolic 2000 panel 1.2 {RATIO} Normal 0.9-2.4 [facility] Work Phone: Comment on above: [facility] [address] [place], [address] Comprehensive metabolic 2000 panel 3.1 g/dL Normal 2.3-3.5 [facility] Work Phone: Comment on above: [facility] [address] [place], [address] Comprehensive metabolic 2000 panel 3.8 g/dL Normal 3.4-5.0 [facility] Work Phone: Comment on above: [facility] [address] [place], [place], [phone] Comprehensive metabolic 2000 panel 6.9 g/dL Normal 6.4-8.2 [facility] Work Phone: Comment on above: [facility] [address] [place], [place], [address] Comprehensive metabolic 2000 panel 18.5 {RATIO} Normal 10-20 [facility] Work Phone: Comment on above: [facility] [address] [place], [place], [address] Comprehensive metabolic 2000 panel 92 mL/min Normal [facility] Work Phone: Comment on above: GFR Calc [facility] [address] [place], [address] Comprehensive metabolic 2000 panel 76 mL/min Normal [facility] Work Phone: Comment on above: Non- GFR Calc [facility] [address] [place], [place], [id number] Comprehensive metabolic 2000 panel 0.81 mg/dL Normal 0.55-1.20 [facility] Work Phone: Comment on above: The validity of the calculated GFR AND GFRAA in patients over70 years has not been determined. Clinical correlation isessential. [facility] [address] [place], [place], [id number] Comprehensive metabolic 2000 panel 18 U/L Normal 15-37 [facility] Work Phone: Comment on above: [facility] [address] [place], [place], [address] Microscopic ExaminationOrder ed By: Shotgun Shell Reprinting Unit Operator on 01-21-2016 Bacteria LM.HPF #/area (Urine sed) Few Normal [facility] Work Phone: Comment on above: PATIENT NOT FASTINGP ERFORMED BY: CB [facility] Vydpgy3[address] RoadDublin [place] [id number] Epithelial cells LM.HPF #/area (Urine sed) 0-10 Normal 0 - 10 [facility] Work Phone: Comment on above: PATIENT NOT FASTINGP ERFORMED BY: CB [facility] Sndoqn47[address] RoadDublin [place] [id number] Mucus LM Ql (Urine sed) Present Normal C omprehensive Internal Medicine Work Phone: Mucus Ql (Urine sed) Present Normal Comp rehensive Internal Medicine Work Phone: Comment on above: PATIENT NOT FASTINGP ERFORMED BY: CB [facility] Hjztpl6978 [address] RoadDublin [place] [id number] RBC LM.HPF #/area (Urine sed) 3-10 Abnormal 0 - 2 [facility] Work Phone: Comment on above: PATIENT NOT FASTINGP ERFORMED BY: CB [facility] Ifzvdt8403 [address] RoadDublin [place] [id number] WBC LM.HPF #/area (Urine sed) 6-10 Abnormal 0 - 5 [facility] Work Phone: Comment on above: PATIENT NOT FASTINGP ERFORMED BY: CB [facility] Dcvngm5713 [address]Dublin [place] [id number] URINALYSIS, W/ MICRO ([id number]) Ordered By: [employer]gun [employer] Reprinting Unit Operator on 01-21-2016 Appearance Nom (U) Clear Normal Compre hensive Internal Medicine Work Phone: Comment on above: PATIENT NOT FASTINGP ERFORMED BY: OLIVIA Kayleen Bqviod7938 [address] RoadAt[facility] [id number] Information: [id number] Bilirubin Ql (U) Negative Normal Comprehe nsive Internal Medicine Work Phone: Comment on above: PATIENT NOT FASTINGP ERFORMED BY: OLIVIA Kayleen Siyehv3309 [address] RoadAtrium Health [place] [id number] Information: [id number] Bilirubin Ql (U) Negative Normal Comprehe nsive Internal Medicine; [facility] Work Phone: Comment on above: PATIENT NOT FASTINGP ERFORMED BY: OLIVIA EdmarBisi PérezOjchyk2700 [address] RoadAtrium Health Kann[facility] [id number] Information: [id number] Color Nom (U) Yellow Normal Comprehensi ve Internal Medicine Work Phone: Comment on above: PATIENT NOT FASTINGP ERFORMED BY: OLIVIA Teddyangela PérezTlobfs[address] [facility] [id number] Information: [id number] Glucose Ql (U) Negative Normal Comprehens maria dolores Internal Medicine Work Phone: Comment on above: PATIENT NOT FASTINGP ERFORMED BY: OLIVIA Kayleen [address] [facility] [id number] Information: [id number] Glucose Ql (U) Negative Normal Comprehens maria dolores Internal Medicine; [facility] Work Phone: Comment on above: PATIENT NOT FASTINGP ERFORMED BY: OLIVIA Teddyrp [address] [facility] [id number] Information: [id number] Hemoglobin Ql (U) 1+ Abnormal Compreh ensive Internal Medicine Work Phone: Comment on above: PATIENT NOT FASTINGP ERFORMED BY: OLIVIA Teddyangela PérezKzbwqr[address] [facility] [id number] Information: [id number] Hemoglobin Test strip Ql (U) 1+ Abnormal [facility] Work Phone: Ketones Ql (U) Negative Normal Comprehens maria dolores [facility] Medicine Work Phone: Comment on above: PATIENT NOT FASTINGP ERFORMED BY: OLIVIA [facility] Uerowq6998 [address] RoadDublin [place] [id number] Information: [id number] Ketones Ql (U) Negative Normal Comprehens maria dolores Internal Medicine; [facility] Work Phone: Comment on above: PATIENT NOT FASTINGP ERFORMED BY: OLIVIA [facility] Cmllej1157 [address] RoadDublin [place] [id number] Information: [id number] Leukocyte esterase Test strip Ql (U) Trace Abnormal [facility] Work Phone: Comment on above: PATIENT NOT FASTINGP ERFORMED BY: OLIVIA [facility] Qxbfrc7528 [address] RoadDublin [place] [id number] Information: [id number] Microscopic observation LM Nom (Urine sed) See below: Normal [facility] Work Phone: Comment on above: Microscopic was don cated and was performed. PATIENT NOT FASTINGP ERFORMED BY: OLIVIA LabVictor M Pfalrj2491 [address] RoadDublin [place] [id number] Information: [id number] Nitrite Ql (U) Negative Normal Comprehens maria dolores [facility] Work Phone: Comment on above: PATIENT NOT FASTINGP ERFORMED BY: OLIVIA Espinal Zknamo1754 [address] RoadDublin [place] [id number] Information: [id number] Nitrite Ql (U) Negative Normal Comprehens maria dolores [facility]; [facility] Work Phone: Comment on above: PATIENT NOT FASTINGP ERFORMED BY: [facility] Kdpfyx5218 [address] RoadDublin [place] [id number] Information: [id number] Nitrite Test strip Ql (U) Negative Normal [facility] Work Phone: pH (U) 7.0 [pH] Normal 5.0-7.5 [facility] Work Phone: Comment on above: PATIENT NOT FASTINGP ERFORMED BY: [facility] Pubtew5393 [address] RoadDublin [place] [id number] Information: [id number] pH Test strip (U) 7.0 [pH] Normal 5.0-7.5 Compreh [facility] Internal Medicine Work Phone: Protein Ql (U) Negative Normal Comprehens maria dolores [facility] Medicine Work Phone: Comment on above: PATIENT NOT FASTINGP ERFORMED BY: OLIVIA [address] [facility] [id number] Information: [id number] Protein Ql (U) Negative Normal Comprehens maria dolores [facility] Medicine; [facility] Work Phone: Comment on above: PATIENT NOT FASTINGP ERFORMED BY: OLIVIA [facility] Hwhssg7531 [facility] [id number] Information: [id number] Protein Test strip Ql (U) Negative Normal [facility] Work Phone: Specific gravity Relative Density (U) 1.021 1 Normal 1.005-1.03 0 [facility] Work Phone: Comment on above: PATIENT NOT FASTINGP ERFORMED BY: OLIVIA Teddy Vhaqbr7335 [facility] [id number] Information: [id number] Urobilinogen (U) [Mass/Vol] 1.0 mg/dL Normal 0.2-1.0 [facility]; [facility] Work Phone: Comment on above: PATIENT NOT FASTINGP ERFORMED BY: OLIVIA [facility] Mqfpcf8605 [facility] [id number] Information: [id number] Urobilinogen Test strip mass conc (U) 1.0 mg/dL Normal 0.2-1.0 [facility] Work Phone: Comment on above: PATIENT NOT FASTINGP ERFORMED BY: OLIVIA [facility] Vwhguw7042 [facility] [id number] Information: [id number] CBC W/Diff, AutomatedOrdered By: [employer]gun [employer] Reprinting Unit Operator on 11-27-2015 Absolute Lymph 1.81 {X10_3/ul} Normal 0.83-4.51 Compr [facility] Internal Medicine Work Phone: Absolute Neut 3.2 {X10_3/uL} Normal 2.0-7.7 Compreh ensive Internal Medicine Work Phone: Comment on above: ORDERED CMP CBCDDR.ROBERT ORDERED VITD LIPID CMP CBCD [facility] [address] [place], [address] Basophils/100 WBC (Bld) 0.3 % Normal 0-1 C omprehensive Internal Medicine Work Phone: Comment on above: ORDERED CMP CBCDDRSERGE ORDERED VITD LIPID CMP CBCD [facility] [address] [place], [address] Basophils/100 WBC Auto (Bld) 0.3 % Normal 0-1 [facility] Work Phone: Eosinophils/100 WBC (Bld) 1.6 % Normal 0-5 [facility] Work Phone: Comment on above: ORDERED CMP CBCDDRSERGE ORDERED VITD LIPID CMP CBCD [facility] [address] [place], [address] Eosinophils/100 WBC Auto (Bld) 1.6 % Normal 0-5 [facility] Work Phone: Erythrocyte distribution width Auto Ratio (RBC) 12.7 % Normal 11.6-14.6 [facility] Work Phone: Erythrocyte distribution width Ratio (RBC) 12.7 % Normal 11.6-14.6 [facility] Work Phone: Comment on above: ORDERED CMP CBCDDR.ROBERT ORDERED VITD LIPID CMP CBCD [facility] [address] [place], [address] Hematocrit Auto Volume Fraction (Bld) 43.1 % Normal 37-47 [facility] Work Phone: Hematocrit Volume Fraction (Bld) 43.1 % Normal 37-47 [facility] Work Phone: Comment on above: ORDERED CMP CBCDDR.ROBERT ORDERED VITD LIPID CMP CBCD [facility] [address] [place], [address] Hemoglobin mass conc (Bld) 14.2 g/dL Normal 12.0-15.0 [facility] Work Phone: Comment on above: ORDERED CMP CBCDDR.ROBERT ORDERED VITD LIPID CMP CBCD [facility] [address] [place], [place], [phone](065 IM GRAN % 0.200 % Normal 0.0-0.9 [facility] Work Phone: Comment on above: IG% - Immature Granu locytes (promyelocytes, myelocytes andmetamyelocytes) > 1% indicates that a LEFT SHIFT is Present. ORDERED CMP CBCDDR.ROBERT ORDERED VITD LIPID CMP CBCD [facility] [address] [place], [address] Lymphocytes #/vol (Bld) 1.81 {X10_3/ul} Normal 0.83-4. 51 [facility] Work Phone: Comment on above: ORDERED CMP CBCDDRSERGE ORDERED VITD LIPID CMP CBCD [facility] [address] [place], [address] Lymphocytes/100 WBC (Bld) 31.2 % Normal 19-41 [facility] Work Phone: Comment on above: ORDERED CMP CBCDDR.ROBERT ORDERED VITD LIPID CMP CBCD [facility] [address] [place], [address] Lymphocytes/100 WBC Auto (Bld) 31.2 % Normal 19-41 [facility] Work Phone: MCH Auto Entitic mass (RBC) 29.9 pg Normal 27.0-32.0 [facility] Work Phone: MCH Entitic mass (RBC) 29.9 pg Normal 27.0-32.0 Co mprehensive Internal Medicine Work Phone: Comment on above: ORDERED CMP CBCDDRSERGE ORDERED VITD LIPID CMP CBCD [facility] [address] [place], [address] MCHC Auto mass conc (RBC) 32.9 {g/gl} Normal 32-36 [facility] Work Phone: MCHC mass conc (RBC) 32.9 {g/gl} Normal 32-36 [facility] prehensive Internal Medicine Work Phone: Comment on above: ORDERED CMP CBCDDRSERGE ORDERED VITD LIPID CMP CBCD [facility] [address] [place], [address] MCV Auto Entitic volume (RBC) 90.7 fL Normal 81-99 [facility] Work Phone: MCV Entitic volume (RBC) 90.7 fL Normal 81-99 [facility] Work Phone: Comment on above: ORDERED CMP CBCDDRSERGE ORDERED VITD LIPID CMP CBCD [facility] [address] [place], [address] Monocytes/100 WBC Auto (Bld) 11.7 % Abnormal 0-10 [facility] Work Phone: Comment on above: ORDERED CMP CBCDDRSERGE ORDERED VITD LIPID CMP CBCD [facility] [address] [place], [address] Neutrophils/100 WBC (Bld) 55.0 % Normal 47-70 [facility] Work Phone: Comment on above: ORDERED CMP CBCDDR.ROBERT ORDERED VITD LIPID CMP CBCD [facility] [address] [place], [address] Neutrophils/100 WBC Auto (Bld) 55.0 % Normal 47-70 [facility] Work Phone: Platelet mean volume Auto Entitic volume (Bld) 8.9 fL Normal 6.2-12.0 [facility] Work Phone: Platelet mean volume Entitic volume (Bld) 8.9 fL Normal 6.2-12.0 Comprehensi Internal Medicine Work Phone: Comment on above: ORDERED CMP CBCDDR.ROBERT ORDERED VITD LIPID CMP CBCD [facility] [address] [place], [address](802) Platelets #/vol (Bld) 228 10*3/uL Normal 150-450 Co [facility] Internal Medicine Work Phone: Comment on above: ORDERED CMP CBCDDR.ROBERT ORDERED VITD LIPID CMP CBCD [facility] [address] [place], [address] Platelets Auto #/vol (Bld) 228 10*3/uL Normal 150-450 [facility] Internal Medicine Work Phone: RBC #/vol (Bld) 4.75 {M/mm3} Normal 4.2-5.4 Compreh [facility]inter[facility] Internal Medicine Work Phone: Comment on above: ORDERED CMP CBCDDR.ROBERT ORDERED VITD LIPID CMP CBCD [facility] [address] [place], [address] RBC Auto #/vol (Bld) 4.75 {M/mm3} Normal 4.2-5.4 Co [facility] Internal Medicine Work Phone: RDW SD 41.8 fL Normal 35.1-43.9 [facility] Internal Medicine Work Phone: Comment on above: ORDERED CMP CBCDDR.ROBERT ORDERED VITD LIPID CMP CBCD [facility] [address] [place], [place], [id number] WBC #/vol (Bld) 5.8 10*3/uL Normal 4.4-11.0 Comprehe nsive Internal Medicine Work Phone: Comment on above: ORDERED CMP CBCDDR.ROBERT ORDERED VITD LIPID CMP CBCD [facility] [address] [place], [place], [address] WBC Auto #/vol (Bld) 5.8 10*3/uL Normal 4.4-11.0 [facility] prehensive Internal Medicine Work Phone: Comprehensive Metabolic Prof ilOrdered By: Shotgun Shell Reprinting Unit Operator on 11-27-2015 Comprehensive metabolic 2000 panel 93 mg/dL Normal 70-110 [facility] Work Phone: Comment on above: ORDERED CMP CBCDDRSERGE ORDERED VITD LIPID CMP CBCD [facility] [address] [place], [place], [address] Comprehensive metabolic 2000 panel 10 mg/dL Normal 7-18 [facility] Work Phone: Comment on above: ORDERED CMP CBCDDRSERGE ORDERED VITD LIPID CMP CBCD [facility] [address] [place], [place], [address] Comprehensive metabolic 2000 panel 141 mmol/L Normal 136-145 [facility] Work Phone: Comment on above: ORDERED CMP CBCDDR.ROBERT ORDERED VITD LIPID CMP CBCD [facility] [address] [place], [place], [address] Comprehensive metabolic 2000 panel 5 1 Normal 5-15 [facility] Work Phone: Comment on above: ORDERED CMP CBCDDR.ROBERT ORDERED VITD LIPID CMP CBCD [facility] [address] [place], [place], [address] Comprehensive metabolic 2000 panel 0.86 mg/dL Normal 0.55-1.20 [facility] Work Phone: Comment on above: The validity of the calculated GFR AND GFRAA in patients over70 years has not been determined. Clinical correlation isessential. ORDERED CMP CBCDDR.ROBERT ORDERED VITD LIPID CMP CBCD [facility] [address] [place], [place], [address] Comprehensive metabolic 2000 panel 71 mL/min Normal [facility] Work Phone: Comment on above: Non- GFR Calc ORDERED CMP CBCDDR.ROBERT ORDERED VITD LIPID CMP CBCD [facility] [address] [place], [place], [address] Comprehensive metabolic 2000 panel 28.0 mmol/L Normal 21.0-32.0 [facility] Work Phone: Comment on above: ORDERED CMP CBCDDR.ROBERT ORDERED VITD LIPID CMP CBCD [facility] [address] [place], [place], [address] Comprehensive metabolic 2000 panel 108 mmol/L Abnormal 98-107 [facility] Work Phone: Comment on above: ORDERED CMP CBCDDR.ROBERT ORDERED VITD LIPID CMP CBCD [facility] [address] [place], [place], [address] Comprehensive metabolic 2000 panel 3.8 mmol/L Normal 3.5-5.1 [facility] Work Phone: Comment on above: ORDERED CMP CBCDDR.ROBERT ORDERED VITD LIPID CMP CBCD [facility] [address] [place], [place], [address] Comprehensive metabolic 2000 panel 86 mL/min Normal [facility] Work Phone: Comment on above: GFR Calc ORDERED CMP CBCDDR.ROBERT ORDERED VITD LIPID CMP CBCD [facility] [address] [place], [place], [address] Comprehensive metabolic 2000 panel 1.10 mg/dL Abnormal 0.20-1.00 [facility] Work Phone: Comment on above: ORDERED CMP CBCDDR.ROBERT ORDERED VITD LIPID CMP CBCD [facility] [address] [place], [address] Comprehensive metabolic 2000 panel 23 U/L Normal 12-78 [facility] Work Phone: Comment on above: ORDERED CMP CBCDDR.ROBERT ORDERED VITD LIPID CMP CBCD [facility] [address] [place], [place], [address] Comprehensive metabolic 2000 panel 82 U/L Normal 50-136 [facility] Work Phone: Comment on above: ORDERED CMP CBCDDR.ROBERT ORDERED VITD LIPID CMP CBCD [facility] [address] [place], [place], [address] Comprehensive metabolic 2000 panel 18 U/L Normal 15-37 [facility] Work Phone: Comment on above: ORDERED CMP CBCDDR.ROBERT ORDERED VITD LIPID CMP CBCD [facility] [address] [place], [place], [address] Comprehensive metabolic 2000 panel 8.6 mg/dL Normal 8.5-10.1 [facility] Work Phone: Comment on above: ORDERED CMP CBCDDR.ROBERT ORDERED VITD LIPID CMP CBCD [facility] [address] [place], [place], [address] Comprehensive metabolic 2000 panel 1.1 {RATIO} Normal 0.9-2.4 [facility] Work Phone: Comment on above: ORDERED CMP CBCDDR.ROBERT ORDERED VITD LIPID CMP CBCD [facility] [address] [place], [place], [address] Comprehensive metabolic 2000 panel 3.6 g/dL Abnormal 2.3-3.5 [facility] Work Phone: Comment on above: ORDERED CMP CBCDDR.ROBERT ORDERED VITD LIPID CMP CBCD [facility] [address] [place], [place], [address] Comprehensive metabolic 2000 panel 11.6 {RATIO} Normal 10-20 [facility] Work Phone: Comment on above: ORDERED CMP CBCDDR.ROBERT ORDERED VITD LIPID CMP CBCD [facility] [address] [place], [place], [address] Comprehensive metabolic 2000 panel 7.5 g/dL Normal 6.4-8.2 [facility] Work Phone: Comment on above: ORDERED CMP CBCDDR.ROBERT ORDERED VITD LIPID CMP CBCD [facility] [address] [place], [place], [address] Comprehensive metabolic 2000 panel 3.9 g/dL Normal 3.4-5.0 [facility] Work Phone: Comment on above: ORDERED CMP CBCDDR.ROBERT ORDERED VITD LIPID CMP CBCD [facility] [address] [place], [place], [address] Lipid ProfileOrdered By: Matthew tem [employer] Scm Consultant on 11-27-2015 Cholesterol in HDL mass conc 64 mg/dL Normal [facility] Work Phone: Comment on above: Reference Range HDL <40 mg/dL Low HDL Cholesterol HDL >or= 60 mg/dL High HDL Cholesterol ORDERED CMP CBCDDR.ROBERT ORDERED VITD LIPID CMP CBCD [facility] [address] [place], [place], [address](343) Cholesterol in LDL mass conc 118 mg/dL Normal 0-130 [facility] Work Phone: Cholesterol in LDL mass conc 118 mg/dL Normal 0-130 [facility] Work Phone: Comment on above: ORDERED CMP CBCDDR.ROBERT ORDERED VITD LIPID CMP CBCD [facility] [address] [place], [place], [id number](945) Cholesterol in VLDL mass conc 12 mg/dL Normal 5-40 [facility] Work Phone: Cholesterol mass conc 194 mg/dL Normal Com prehensive Internal Medicine Work Phone: Comment on above: <200 mg/dL Desirable 200-240 mg/dL Borderline >240 mg/dL High Risk ORDERED CMP CBCDDR.ROBERT ORDERED VITD LIPID CMP CBCD [facility] [address] [place], [place], [address] Triglyceride mass conc 62 mg/dL Normal Co mprehensive Internal Medicine Work Phone: Comment on above: Serum Triglycerides Reference Interval Normal <150 mg/dL Borderline high 150 - 199 mg/dL High 200 - 499 mg/dL Very High > or = 500 mg/dL ORDERED CMP CBCDDRSERGE ORDERED VITD LIPID CMP CBCD [facility] [address] [place], [address] Lipid Profile 12 mg/dL Normal 5-40 Comprehensi Internal Medicine Work Phone: Comment on above: ORDERED CMP CBCDDRSERGE ORDERED VITD LIPID CMP CBCD [facility] [address] [place], [place], [address] MicroalbOrdered By: Farzad nath on 11-27-2015 Creatinine mass conc 9.4 {mg/g_CRE} Normal [facility] Work Phone: Comment on above: ORDERED CMP CBCDDR.ROBERT ORDERED VITD LIPID CMP CBCD [facility] [address] [place], [address] Creatinine mass conc 129.00 mg/dL Normal Co mprehensive Internal Medicine Work Phone: Comment on above: ORDERED CMP CBCDDR.ROBERT ORDERED VITD LIPID CMP CBCD [facility] [address] [place], [address] MICROALBUMIN,UR 12.1 mg/L Normal Comprehen sive Internal Medicine Work Phone: UR CREAT 129.00 mg/dL Normal Comprehensiv e Internal Medicine Work Phone: Microalb 12.1 mg/L Normal [facility] Work Phone: Comment on above: ORDERED CMP CBCDDR.ROBERT ORDERED VITD LIPID CMP CBCD [facility] [address] [place], [address] Thyroid Stim Hormone (TSH)Or dered By: [employer]gun [employer] Reprinting Unit Operator on 11-27-2015 Thyrotropin Qn 2.47 {uIU/mL} Normal 0.358-3.74 Compreh ensive Internal Medicine Work Phone: Comment on above: ORDERED CMP CBCDDR.ROBERT ORDERED VITD LIPID CMP CBCD [facility] [address] [place], [address] Urinalysis, Routine (Dipstic k)Ordered By: Shotgun [employer] Reprinting Unit Operator on 11-27-2015 CLARITY Clear Normal [facility] Work Phone: Clarity Nom (U) Clear Normal Comprehen sive Internal Medicine Work Phone: Comment on above: ORDERED CMP CBCDDR.ROBERT ORDERED VITD LIPID CMP CBCD UA MIACRE TSHHow was Urine Obtained? [facility] [address] [place], [place], [address] COLOR Yellow Normal [facility] Work Phone: Color Nom (U) Yellow Normal Comprehensi ve Internal Medicine Work Phone: Comment on above: ORDERED CMP CBCDDR.ROBERT ORDERED VITD LIPID CMP CBCD UA MIACRE TSHHow was Urine Obtained? [facility] [address] [place], [place], [phone](404) GLUCOSE, UR Normal Normal [facility] Work Phone: LEUK ESTERASE 25 /ul Abnormal Comprehensi ve Internal Medicine Work Phone: NITRITE UR Negative Normal [facility] Work Phone: OCCULT BLOOD-UR 150 /ul Abnormal Comprehen [facility] Internal Medicine Work Phone: pH UR 6.0 1 Normal 5.0 - 8.0 [facility] Work Phone: SP.GR. DIPSTX 1.015 1 Normal 1.002-1.03 0 [facility] Work Phone: Urinalysis, Routine (Dipstick) 1.015 1 Normal 1.002-1.03 0 [facility] Work Phone: Comment on above: ORDERED CMP CBCDDR.ROBERT ORDERED VITD LIPID CMP CBCD UA MIACRE TSHHow was Urine Obtained? [facility] [facility] [address] [place], [address] Urinalysis, Routine (Dipstick) Negative Normal [facility] Work Phone: Comment on above: ORDERED CMP CBCDDR.ROBERT ORDERED VITD LIPID CMP CBCD UA MIACRE TSHHow was Urine Obtained? [facility] [address] [place], [place], [id number] Urinalysis, Routine (Dipstick) Normal Normal [facility] Work Phone: Comment on above: ORDERED CMP CBCDDR.ROBERT ORDERED VITD LIPID CMP CBCD UA MIACRE TSHHow was Urine Obtained? [facility] [address] [place], [place], [id number] Urinalysis, Routine (Dipstick) 6.0 1 Normal 5.0 - 8.0 [facility] Work Phone: Comment on above: ORDERED CMP CBCDDRSERGE ORDERED VITD LIPID CMP CBCD UA MIACRE TSHHow was Urine Obtained? [facility] [address] [place], [address] Urinalysis, Routine (Dipstick) 150 /ul Abnormal [facility] Work Phone: Comment on above: ORDERED CMP CBCDDRSERGE ORDERED VITD LIPID CMP CBCD UA MIACRE TSHHow was Urine Obtained? [facility] [address] [place], [address] Urinalysis, Routine (Dipstick) 25 /ul Abnormal [facility] Work Phone: Comment on above: ORDERED CMP CBCDDRSERGE ORDERED VITD LIPID CMP CBCD UA MIACRE TSHHow was Urine Obtained? [facility] [address] [place], [place], [id number] Vitamin D,25 HydroxyOrdered By: [employer] Reprinting Unit Operator on 11-27-2015 Vitamin D 25-OH 55.4 ng/mL Normal Comprehen [facility] Internal Medicine Work Phone: Comment on above: Vitamin D 25(OH) Sta tus Range Deficiency <20 ng/mL (50nmol/L) Insuffciency 20 - 30 ng/mL (50 - 75 nmol/L) Sufficiency 30 - 100 ng/mL (75 - 250 nmol/L) Toxicity >100 ng/mL (>250 nmol/L) Vitamin D,25 Hydroxy 55.4 ng/mL Normal Comp rehensive Internal Medicine Work Phone: Comment on above: Vitamin D 25(OH) Sta tus Range Deficiency <20 ng/mL (50nmol/L) Insuffciency 20 - 30 ng/mL (50 - 75 nmol/L) Sufficiency 30 - 100 ng/mL (75 - 250 nmol/L) Toxicity >100 ng/mL (>250 nmol/L) ORDERED CMP CBCDDR.ROBERT ORDERED VITD LIPID CMP CBCD UA [facility] [address] [place], [place], [id number] Basic Metabolic Profile (BMP )Ordered By: [employer] Repr[employer]ing Unit Operator on 08-19-2015 Basic metabolic 2000 panel 9 mg/dL Normal 7-18 [facility] Work Phone: Comment on above: [facility] [address] [place], [place], [address] Basic metabolic 2000 panel 80.96 ml/min Normal [facility] Work Phone: Comment on above: [facility] [address] [place], [place], [id number] Basic metabolic 2000 panel 76 mL/min Normal [facility] Work Phone: Comment on above: GFR Calc [facility] [address] [place], [place], [phone] Basic metabolic 2000 panel 63 mL/min Normal [facility] Work Phone: Comment on above: Non- GFR Calc [facility] [address] [place], [place], [id number] Basic metabolic 2000 panel 0.96 mg/dL Normal 0.55-1.20 [facility] Work Phone: Comment on above: The validity of the calculated GFR AND GFRAA in patients over70 years has not been determined. Clinical correlation isessential. [facility] [address] [place], [address] Basic metabolic 2000 panel 9.4 {RATIO} Abnormal 10-20 [facility] Work Phone: Comment on above: [facility] [address] [place], [address] Basic metabolic 2000 panel 139 mmol/L Normal 136-145 [facility] Work Phone: Comment on above: [facility] [address] [place], [address] Basic metabolic 2000 panel 3.8 mmol/L Normal 3.5-5.1 [facility] Work Phone: Comment on above: [facility] [address] [place], [address] Basic metabolic 2000 panel 105 mmol/L Normal 98-107 [facility] Work Phone: Comment on above: [facility] [address] [place], [address] Basic metabolic 2000 panel 29.0 mmol/L Normal 21.0-32.0 [facility] Work Phone: Comment on above: [facility] [address] [place], [address] Basic metabolic 2000 panel 5 1 Normal 5-15 [facility] Work Phone: Comment on above: [facility] [address] [place], [address] Basic metabolic 2000 panel 100 mg/dL Normal 70-110 [facility] Work Phone: Comment on above: [facility] [address] [place], [address] Basic metabolic 2000 panel 8.5 mg/dL Normal 8.5-10.1 [facility] Work Phone: Comment on above: [facility] [address] [place], [address] CBC W/Diff, AutomatedOrdered By: [employer] Repr[employer]ing Unit Operator on 08-11-2015 Absolute Lymph 1.38 {X10_3/ul} Normal 0.83-4.51 Compr ehensive Internal Medicine Work Phone: Absolute Neut 2.6 {X10_3/uL} Normal 2.0-7.7 Compreh ensive Internal Medicine Work Phone: Comment on above: [facility] [address] [place], [address] Basophils/100 WBC (Bld) 0.6 % Normal 0-1 C omprehensive Internal Medicine Work Phone: Comment on above: [facility] [address] [place], [address] Basophils/100 WBC Auto (Bld) 0.6 % Normal 0-1 [facility] Work Phone: Eosinophils/100 WBC (Bld) 2.3 % Normal 0-5 [facility] Work Phone: Comment on above: [facility] [address] [place], [address] Eosinophils/100 WBC Auto (Bld) 2.3 % Normal 0-5 [facility] Work Phone: Erythrocyte distribution width Auto Ratio (RBC) 13.8 % Normal 11.6-14.6 [facility] Work Phone: Erythrocyte distribution width Ratio (RBC) 13.8 % Normal 11.6-14.6 [facility] Work Phone: Comment on above: [facility] [address] [place], [address](960) Hematocrit Auto Volume Fraction (Bld) 40.9 % Normal 37-47 [facility] Work Phone: Hematocrit Volume Fraction (Bld) 40.9 % Normal 37-47 [facility] Work Phone: Comment on above: [facility] [address] [place], [place], [phone] Hemoglobin mass conc (Bld) 13.5 g/dL Normal 12.0-15.0 [facility] Work Phone: Comment on above: [facility] [address] [place], [address] IM GRAN % 0.200 % Normal 0.0-0.9 [facility] Work Phone: Comment on above: IG% - Immature Granu locytes (promyelocytes, myelocytes andmetamyelocytes) > 1% indicates that a LEFT SHIFT is Present. [facility] [address] [place], [place], [id number] Lymphocytes #/vol (Bld) 1.38 {X10_3/ul} Normal 0.83-4. 51 [facility] Work Phone: Comment on above: [facility] [address] [place], [address] Lymphocytes/100 WBC (Bld) 28.6 % Normal 19-41 [facility] Work Phone: Comment on above: [facility] [address] [place], [address] Lymphocytes/100 WBC Auto (Bld) 28.6 % Normal 19-41 [facility] Work Phone: MCH Auto Entitic mass (RBC) 30.8 pg Normal 27.0-32.0 [facility] Work Phone: MCH Entitic mass (RBC) 30.8 pg Normal 27.0-32.0 [facility] Work Phone: Comment on above: [facility] [address] [place], [address] MCHC Auto mass conc (RBC) 33.0 {g/gl} Normal 32-36 [facility] Work Phone: MCHC mass conc (RBC) 33.0 {g/gl} Normal 32-36 Com prehensive Internal Medicine Work Phone: Comment on above: [facility] [address] [place], [address] MCV Auto Entitic volume (RBC) 93.4 fL Normal 81-99 [facility] Work Phone: MCV Entitic volume (RBC) 93.4 fL Normal 81-99 [facility] Work Phone: Comment on above: [facility] [address] [place], [address] Monocytes/100 WBC Auto (Bld) 13.7 % Abnormal 0-10 [facility] Work Phone: Comment on above: [facility] [address] [place], [address] Neutrophils/100 WBC (Bld) 54.6 % Normal 47-70 [facility] Work Phone: Comment on above: [facility] [address] [place], [address] Neutrophils/100 WBC Auto (Bld) 54.6 % Normal 47-70 [facility] Work Phone: Platelet mean volume Auto Entitic volume (Bld) 9.1 fL Normal 6.2-12.0 [facility] Work Phone: Platelet mean volume Entitic volume (Bld) 9.1 fL Normal 6.2-12.0 Comprehensi Internal Medicine Work Phone: Comment on above: [facility] [address] [place], [address] Platelets #/vol (Bld) 249 10*3/uL Normal 150-450 Co [facility] Work Phone: Comment on above: [facility] [address] [place], [address] Platelets Auto #/vol (Bld) 249 10*3/uL Normal 150-450 [facility] Work Phone: RBC #/vol (Bld) 4.38 {M/mm3} Normal 4.2-5.4 Compreh ensive Internal Medicine Work Phone: Comment on above: [facility] [address] [place], [place], [phone] RBC Auto #/vol (Bld) 4.38 {M/mm3} Normal 4.2-5.4 Co mprehensive Internal Medicine Work Phone: RDW SD 46.9 fL Abnormal 35.1-43.9 [facility] Work Phone: Comment on above: [facility] [address] [place], [address] WBC #/vol (Bld) 4.8 10*3/uL Normal 4.4-11.0 Comprehe nsive Internal Medicine Work Phone: Comment on above: [facility] [address] [place], [place], [id number] WBC Auto #/vol (Bld) 4.8 10*3/uL Normal 4.4-11.0 Com prehensive Internal Medicine Work Phone: Comprehensive Metabolic Prof ilOrdered By: [employer] Repr[employer]ing Unit Operator on 08-11-2015 Comprehensive metabolic 2000 panel 11 mg/dL Normal 7-18 [facility] Work Phone: Comment on above: [facility] [address] [place], [place], [phone] Comprehensive metabolic 2000 panel 1.1 {RATIO} Normal 0.9-2.4 [facility] Work Phone: Comment on above: [facility] [address] [place], [address] Comprehensive metabolic 2000 panel 17 U/L Normal 15-37 [facility] Work Phone: Comment on above: [facility] [address] [place], [place], [phone] Comprehensive metabolic 2000 panel 73 U/L Normal 50-136 [facility] Work Phone: Comment on above: [facility] ingetal [address] [place], [place], [phone] Comprehensive metabolic 2000 panel 107 mmol/L Normal 98-107 [facility] Work Phone: Comment on above: [facility] [address] [place], [address] Comprehensive metabolic 2000 panel 3.5 g/dL Normal 2.3-3.5 [facility] Work Phone: Comment on above: [facility] [address] [place], [place], [phone] Comprehensive metabolic 2000 panel 3.9 g/dL Normal 3.4-5.0 [facility] Work Phone: Comment on above: [facility] [address] [place], [place], [address] Comprehensive metabolic 2000 panel 7.4 g/dL Normal 6.4-8.2 [facility] Work Phone: Comment on above: [facility] [address] [place], [place], [address] Comprehensive metabolic 2000 panel 12.5 {RATIO} Normal 10-20 [facility] Work Phone: Comment on above: [facility] [address] [place], [address] Comprehensive metabolic 2000 panel 31 U/L Normal 12-78 [facility] Work Phone: Comment on above: [facility] [address] [place], [place], [address] Comprehensive metabolic 2000 panel 9.0 mg/dL Normal 8.5-10.1 [facility] Work Phone: Comment on above: [facility] [address] [place], [address] Comprehensive metabolic 2000 panel 0.70 mg/dL Normal 0.20-1.00 [facility] Work Phone: Comment on above: [facility] [address] [place], [address] Comprehensive metabolic 2000 panel 143 mmol/L Normal 136-145 [facility] Work Phone: Comment on above: [facility] [address] [place], [address] Comprehensive metabolic 2000 panel 84 mL/min Normal [facility] Work Phone: Comment on above: GFR Calc [facility] [address] [place], [address] Comprehensive metabolic 2000 panel 69 mL/min Normal [facility] Work Phone: Comment on above: Non- GFR Calc [facility] [address] [place], [address] Comprehensive metabolic 2000 panel 4.0 mmol/L Normal 3.5-5.1 [facility] Work Phone: Comment on above: [facility] [address] [place], [address] Comprehensive metabolic 2000 panel 0.88 mg/dL Normal 0.55-1.20 [facility] Work Phone: Comment on above: The validity of the calculated GFR AND GFRAA in patients over70 years has not been determined. Clinical correlation isessential. [facility] [address] [place], [address] Comprehensive metabolic 2000 panel 100 mg/dL Normal 70-110 [facility] Work Phone: Comment on above: [facility] [address] [place], [address] Comprehensive metabolic 2000 panel 7 1 Normal 5-15 [facility] Work Phone: Comment on above: [facility] [address] [facility] [place], [address] Comprehensive metabolic 2000 panel 29.0 mmol/L Normal 21.0-32.0 [facility] Work Phone: Comment on above: [place] [facility] [address] [place], [address] CALCIFIDIOL (23343) VIT D 25 Ordered By: Shotgun [employer] Reprinting Unit Operator on 05-04-2015 25-Hydroxyvitamin D2+25-Hydroxyvitamin D3 mass conc 32.0 ng/mL Normal 30.0-100.0 [facility] Work Phone: Comment on above: Vitamin D deficiency has been defined by the [place] of[place] and an Endocrine Society practice guideline as alevel of serum 25-OH vitamin D less than 20 ng/mL (1,2).The Endocrine Society went on to further define vitamin Dinsufficiency as a level between 21 and 29 ng/mL (2).1. IOM ([place] of [place]). 2010. Dietary reference intakes for calcium and D. [place]: The National Academies Press.2. Andrey MF, Dago RAMIREZ, Cuauhtemoc MOSS, et al. Evaluation, treatment, and prevention of vitamin D deficiency: an Endocrine Society clinical practice guideline. JCEM. 2010; 96(7):1911-30. PATIENT WAS FASTINGP ERFORMED BY: OLIVIA IG Guitars6370 [facility] [id number] LIPID PANEL ([id number])Ordered B y: [employer]gun [employer] Reprinting Unit Operator on 05-04-2015 Cholesterol in HDL mass conc 61 mg/dL Normal [facility] Work Phone: Comment on above: According to ATP-III Guidelines, HDL-C >59 mg/dL is considered anegative risk factor for CHD. PATIENT WAS FASTINGP ERFORMED BY: OLIVIA Appticles70 [facility] [id number] Information: [id number] Cholesterol in LDL mass conc 117 mg/dL Abnormal 0-99 [facility] Work Phone: Comment on above: PATIENT WAS FASTINGP ERFORMED BY: [address]70 [facility] [id number] Information: [id number] Cholesterol in LDL/Cholesterol in HDL mass ratio 1.9 {ratio_units} Normal 0.0-3.2 [facility] Work Phone: Comment on above: LDL/HDL Ratio Men Wo men 1/2 Avg.Risk 1.0 1.5 Avg.Risk 3.6 3.2 2X Avg.Risk 6.2 5.0 3X Avg.Risk 8.0 6.1 PATIENT WAS FASTINGP ERFORMED BY: LabCoWilliam [place] [id number] [facility] [id number] Information: [id number] Cholesterol in VLDL mass conc 14 mg/dL Normal 5-40 [facility] Work Phone: Comment on above: PATIENT WAS FASTINGP ERFORMED BY: [place] [id number] [facility] [id number] Information: [id number] Cholesterol mass conc 192 mg/dL Normal 100-199 Com [facility] Work Phone: Comment on above: PATIENT WAS FASTINGP ERFORMED BY: LabCoWilliam [place] [id number] [facility] [id number] Information: [id number] Triglyceride mass conc 69 mg/dL Normal 0-149 Co [facility] Internal Medicine Work Phone: Comment on above: PATIENT WAS FASTINGP ERFORMED BY: LabCo[address] [id number] Information: [id number] TSH ([id number])Ordered By: Syste m [employer] Scm Consultant on 05-04-2015 Thyrotropin Qn 1.460 {uIU/mL} Normal 0.450-4.50 0 [facility] Work Phone: Comment on above: PATIENT WAS FASTINGP ERFORMED BY: [facility]Co[facility] CenterAznfom5163 [facility] [id number] CBC W/Diff, AutomatedOrdered By: Shotgun [employer] Reprinting Unit Operator on 04-27-2015 Absolute Lymph 1.46 {X10_3/ul} Normal 0.83-4.51 Compr ehensive Internal Medicine Work Phone: Absolute Neut 2.1 {X10_3/uL} Normal 2.0-7.7 Compreh ensive Internal Medicine Work Phone: Comment on above: Test performed at:[facility] [address] [place] [address] Basophils/100 WBC (Bld) 0.7 % Normal 0-1 C omprehensive Internal Medicine Work Phone: Comment on above: Test performed at:[facility] [address] [place] [address] Basophils/100 WBC Auto (Bld) 0.7 % Normal 0-1 [facility] Work Phone: Eosinophils/100 WBC (Bld) 3.1 % Normal 0-5 [facility] Work Phone: Comment on above: Test performed at:[facility] [address] [place] [address] Eosinophils/100 WBC Auto (Bld) 3.1 % Normal 0-5 [facility] Work Phone: Erythrocyte distribution width Auto Ratio (RBC) 12.7 % Normal 11.6-14.6 [facility] Work Phone: Erythrocyte distribution width Ratio (RBC) 12.7 % Normal 11.6-14.6 [facility] Work Phone: Comment on above: Test performed at:[facility] [address] [place] [address] Hematocrit Auto Volume Fraction (Bld) 42.1 % Normal 37-47 [facility] Work Phone: Hematocrit Volume Fraction (Bld) 42.1 % Normal 37-47 [facility] Work Phone: Comment on above: Test performed at:[facility] [address] [place] [address] Hemoglobin mass conc (Bld) 13.9 g/dL Normal 12.0-15.0 [facility] Work Phone: Comment on above: Test performed at:[facility] [address] [place] [address] IM GRAN % 0.200 % Normal 0.0-0.9 [facility] Work Phone: Comment on above: IG% - Immature Granu locytes (promyelocytes, myelocytes andmetamyelocytes) > 1% indicates that a LEFT SHIFT is Present. Test performed at:[facility] [address] [place] [address] Lymphocytes #/vol (Bld) 1.46 {X10_3/ul} Normal 0.83-4. 51 [facility] Work Phone: Comment on above: Test performed at:[facility] [address] [place] [address] Lymphocytes/100 WBC (Bld) 32.5 % Normal 19-41 [facility] Work Phone: Comment on above: Test performed at:[facility] [address] [place] [address] Lymphocytes/100 WBC Auto (Bld) 32.5 % Normal 19-41 [facility] Work Phone: MCH Auto Entitic mass (RBC) 29.9 pg Normal 27.0-32.0 [facility] Work Phone: MCH Entitic mass (RBC) 29.9 pg Normal 27.0-32.0 Co [facility] Internal Medicine Work Phone: Comment on above: Test performed at:[facility] [address] [place] [address] MCHC Auto mass conc (RBC) 33.0 {g/gl} Normal 32-36 [facility] Work Phone: MCHC mass conc (RBC) 33.0 {g/gl} Normal 32-36 [facility] prehensive Internal Medicine Work Phone: Comment on above: Test performed at:[facility] [address] [place] [address] MCV Auto Entitic volume (RBC) 90.5 fL Normal 81-99 [facility] Work Phone: MCV Entitic volume (RBC) 90.5 fL Normal 81-99 [facility] Work Phone: Comment on above: Test performed at:[facility] [address] [place] [address] Monocytes/100 WBC Auto (Bld) 17.4 % Abnormal 0-10 [facility] Work Phone: Comment on above: Test performed at:[facility] [address] [place] [address] Neutrophils/100 WBC (Bld) 46.1 % Abnormal 47-70 [facility] Work Phone: Comment on above: Test performed at:[facility] [address] [place] [address] Neutrophils/100 WBC Auto (Bld) 46.1 % Abnormal 47-70 [facility] Work Phone: Platelet mean volume Auto Entitic volume (Bld) 8.9 fL Normal 6.2-12.0 [facility] Work Phone: Platelet mean volume Entitic volume (Bld) 8.9 fL Normal 6.2-12.0 Comprehensi Internal Medicine Work Phone: Comment on above: Test performed at:[facility] [address] [place] [address] Platelets #/vol (Bld) 227 10*3/uL Normal 150-450 Co [facility] Internal Medicine Work Phone: Comment on above: Test performed at:[facility] [address] [place] [address] Platelets Auto #/vol (Bld) 227 10*3/uL Normal 150-450 [facility] Work Phone: RBC #/vol (Bld) 4.65 {M/mm3} Normal 4.2-5.4 Compreh ensive Internal Medicine Work Phone: Comment on above: Test performed at:[facility] [address] [place] [address] RBC Auto #/vol (Bld) 4.65 {M/mm3} Normal 4.2-5.4 Co mprehensive Internal Medicine Work Phone: RDW SD 41.8 fL Normal 35.1-43.9 [facility] Work Phone: Comment on above: Test performed at:[facility] [address] [place] [address] WBC #/vol (Bld) 4.5 10*3/uL Normal 4.4-11.0 Comprehe nsive Internal Medicine Work Phone: Comment on above: Test performed at:[facility] [address] [place] [address] WBC Auto #/vol (Bld) 4.5 10*3/uL Normal 4.4-11.0 Com prehensive Internal Medicine Work Phone: Comprehensive Metabolic Prof ilOrdered By: Shotgun [employer] Reprinting Unit Operator on 04-27-2015 Comprehensive metabolic 2000 panel 11 mg/dL Normal 7-18 [facility] Work Phone: Comment on above: Test performed at:[facility] [address] [place] [address] Comprehensive metabolic 2000 panel 20 U/L Normal 12-78 [facility] Medicine Work Phone: Comment on above: Test performed at:[facility] [address] [place] [address] Comprehensive metabolic 2000 panel 1.0 {RATIO} Normal 0.9-2.4 [facility] Work Phone: Comment on above: Test performed at:[facility] [address] [place] [address] Comprehensive metabolic 2000 panel 3.5 g/dL Normal 2.3-3.5 [facility] Work Phone: Comment on above: Test performed at:[facility] [address] [place] [address] Comprehensive metabolic 2000 panel 140 mmol/L Normal 136-145 [facility] Work Phone: Comment on above: Test performed at:[facility] [address] [place] [address] Comprehensive metabolic 2000 panel 3.6 g/dL Normal 3.4-5.0 [facility] Work Phone: Comment on above: Test performed at:[facility] [address] [place] [address] Comprehensive metabolic 2000 panel 7.1 g/dL Normal 6.4-8.2 [facility] Work Phone: Comment on above: Test performed at:[facility] [address] [place] [address] Comprehensive metabolic 2000 panel 12.4 {RATIO} Normal 10-20 [facility] Work Phone: Comment on above: Test performed at:[facility] [address] [place] [address] Comprehensive metabolic 2000 panel 29.0 mmol/L Normal 21.0-32.0 [facility] Work Phone: Comment on above: Test performed at:[facility] [address] [place] [address] Comprehensive metabolic 2000 panel 103 mmol/L Normal 98-107 [facility] Work Phone: Comment on above: Test performed at:[facility] [address] [place] [address] Comprehensive metabolic 2000 panel 0.80 mg/dL Normal 0.20-1.00 [facility] Work Phone: Comment on above: Test performed at:[facility] [address] [place] [address] Comprehensive metabolic 2000 panel 4.0 mmol/L Normal 3.5-5.1 [facility] Work Phone: Comment on above: Test performed at:[facility] [address] [place] [address] Comprehensive metabolic 2000 panel 8.9 mg/dL Normal 8.5-10.1 [facility] Work Phone: Comment on above: Test performed at:[facility] [address] [place] [address] Comprehensive metabolic 2000 panel 17 U/L Normal 15-37 [facility] Work Phone: Comment on above: Test performed at:[facility] [address] [place] [address] Comprehensive metabolic 2000 panel 0.89 mg/dL Normal 0.55-1.20 [facility] Work Phone: Comment on above: Please note revised CREATININE reference range [id number]/22/2015. Test performed at:[facility] [address] [place] [address] Comprehensive metabolic 2000 panel 82 mL/min Normal [facility] Work Phone: Comment on above: Test performed at:[facility] [address] [place] [address] Comprehensive metabolic 2000 panel 75 U/L Normal 50-136 [facility] Work Phone: Comment on above: Test performed at:[facility] [address] [place] [address] Comprehensive metabolic 2000 panel 8 1 Normal 5-15 [facility] Work Phone: Comment on above: Test performed at:[facility] [address] [place] [address] Comprehensive metabolic 2000 panel 68 mL/min Normal [facility] Work Phone: Comment on above: Test performed at:[facility] [address] [place] [address] Comprehensive metabolic 2000 panel 82 mg/dL Normal 70-110 [facility] Work Phone: Comment on above: Test performed at:[facility] [address] [place] [address] CBC W/Diff, AutomatedOrdered By: [employer] Repr[employer]ing Unit Operator on 01-05-2015 Absolute Lymph 1.50 {X10_3/ul} Normal 0.83-4.51 Compr ehensive Internal Medicine Work Phone: Absolute Neut 2.2 {X10_3/uL} Normal 2.0-7.7 Compreh ensive Internal Medicine Work Phone: Comment on above: Test performed at:[facility] [address] [place] [address] Basophils/100 WBC (Bld) 0.9 % Normal 0-1 C omprehensive Internal Medicine Work Phone: Comment on above: Test performed at:[facility] [address] [place] [address] Basophils/100 WBC Auto (Bld) 0.9 % Normal 0-1 [facility] Work Phone: Eosinophils/100 WBC (Bld) 3.6 % Normal 0-5 [facility] Work Phone: Comment on above: Test performed at:[facility] [address] [place] [address] Eosinophils/100 WBC Auto (Bld) 3.6 % Normal 0-5 [facility] Work Phone: Erythrocyte distribution width Auto Ratio (RBC) 13.4 % Normal 11.6-14.6 [facility] Work Phone: Erythrocyte distribution width Ratio (RBC) 13.4 % Normal 11.6-14.6 [facility] Work Phone: Comment on above: Test performed at:[facility] [address] [place] [address]( Hematocrit Auto Volume Fraction (Bld) 40.3 % Normal 37-47 [facility] Work Phone: Hematocrit Volume Fraction (Bld) 40.3 % Normal 37-47 [facility] Work Phone: Comment on above: Test performed at:[facility] [address] [place] [address] Hemoglobin mass conc (Bld) 13.3 g/dL Normal 12.0-15.0 [facility] Work Phone: Comment on above: Test performed at:[facility] [address] [place] [address] IM GRAN % 0.500 % Normal 0.0-0.9 [facility] Work Phone: Comment on above: IG% - Immature Granu locytes (promyelocytes, myelocytes andmetamyelocytes) > 1% indicates that a LEFT SHIFT is Present. Test performed at:[facility] [address] [place] [address] Lymphocytes #/vol (Bld) 1.50 {X10_3/ul} Normal 0.83-4. 51 [facility] Work Phone: Comment on above: Test performed at:[facility] [address] [place] [address] Lymphocytes/100 WBC (Bld) 34.1 % Normal 19-41 [facility] Work Phone: Comment on above: Test performed at:[facility] [address] [place] [address] Lymphocytes/100 WBC Auto (Bld) 34.1 % Normal 19-41 [facility] Work Phone: MCH Auto Entitic mass (RBC) 30.6 pg Normal 27.0-32.0 [facility] Work Phone: MCH Entitic mass (RBC) 30.6 pg Normal 27.0-32.0 Co mprehensive [facility] Work Phone: Comment on above: Test performed at:[facility] [address] [place] [address] MCHC Auto mass conc (RBC) 33.0 {g/gl} Normal 32-36 [facility] Work Phone: MCHC mass conc (RBC) 33.0 {g/gl} Normal 32-36 [facility] prehensive Internal Medicine Work Phone: Comment on above: Test performed at:[facility] [address] [place] [address] MCV Auto Entitic volume (RBC) 92.6 fL Normal 81-99 [facility] Work Phone: MCV Entitic volume (RBC) 92.6 fL Normal 81-99 [facility] Work Phone: Comment on above: Test performed at:[facility] [address] [place] [address] Monocytes/100 WBC Auto (Bld) 11.4 % Abnormal 0-10 [facility] Work Phone: Comment on above: Test performed at:[facility] [address] [place] [address] Neutrophils/100 WBC (Bld) 49.5 % Normal 47-70 [facility] Work Phone: Comment on above: Test performed at:[facility] [address] [place] [address] Neutrophils/100 WBC Auto (Bld) 49.5 % Normal 47-70 [facility] Work Phone: Platelet mean volume Auto Entitic volume (Bld) 9.0 fL Normal 6.2-12.0 [facility] Work Phone: Platelet mean volume Entitic volume (Bld) 9.0 fL Normal 6.2-12.0 Comprehensi ve Internal Medicine Work Phone: Comment on above: Test performed at:[facility] [address] [place] [address] Platelets #/vol (Bld) 243 10*3/uL Normal 150-450 [facility] Work Phone: Comment on above: Test performed at:[facility] [address] [place] [address] Platelets Auto #/vol (Bld) 243 10*3/uL Normal 150-450 [facility] Work Phone: RBC #/vol (Bld) 4.35 {M/mm3} Normal 4.2-5.4 Compreh ensive Internal Medicine Work Phone: Comment on above: Test performed at:[facility] [address] [place] [address] RBC Auto #/vol (Bld) 4.35 {M/mm3} Normal 4.2-5.4 Co mprehensive [facility] Work Phone: RDW SD 45.3 fL Abnormal 35.1-43.9 [facility] Work Phone: Comment on above: Test performed at:[facility] [address] [place] [address] WBC #/vol (Bld) 4.4 10*3/uL Normal 4.4-11.0 Comprehe nsive Internal Medicine Work Phone: Comment on above: Test performed at:[facility] [address] [place] [address] WBC Auto #/vol (Bld) 4.4 10*3/uL Normal 4.4-11.0 Com prehensive Internal Medicine Work Phone: Comprehensive Metabolic Prof ilOrdered By: [employer] Repr[employer]ing Unit Operator on 01-05-2015 Comprehensive metabolic 2000 panel 78 mL/min Normal [facility] Work Phone: Comment on above: Comments: CTest perf ormed at:[facility] [address] [place], [place] [id number] Comprehensive metabolic 2000 panel 1.2 {RATIO} Normal 0.9-2.4 [facility] Work Phone: Comment on above: Comments: CTest perf ormed at:[facility] [address] [place], [place] [id number] Comprehensive metabolic 2000 panel 26.0 mmol/L Normal 21.0-32.0 [facility] Work Phone: Comment on above: Comments: CTest perf ormed at:[facility] [address] [place] [address] Comprehensive metabolic 2000 panel 106 mmol/L Normal 98-107 [facility] Work Phone: Comment on above: Comments: CTest perf ormed at:[facility] [address] [place] [address] Comprehensive metabolic 2000 panel 4.1 mmol/L Normal 3.5-5.1 [facility] Work Phone: Comment on above: Comments: CTest perf ormed at:[facility] [address] [place] [address] Comprehensive metabolic 2000 panel 138 mmol/L Normal 136-145 [facility] Work Phone: Comment on above: Comments: CTest perf ormed at:[facility] [address] [place] [address] Comprehensive metabolic 2000 panel 0.90 mg/dL Normal 0.00-4.00 [facility] Work Phone: Comment on above: Comments: CTest perf ormed at:[facility] [address] [place] [address] Comprehensive metabolic 2000 panel 94 mg/dL Normal 70-110 [facility] Work Phone: Comment on above: Comments: CTest perf ormed at:[facility] [address] [place] [address] Comprehensive metabolic 2000 panel 11 mg/dL Normal 7-18 [facility] Work Phone: Comment on above: Comments: CTest perf ormed at:[facility] [address] [place] [address] Comprehensive metabolic 2000 panel 0.8 mg/dL Normal 0.6-1.0 [facility] Work Phone: Comment on above: Comments: CTest perf ormed at:[facility] [address] [place] [address] Comprehensive metabolic 2000 panel 6 1 Normal 5-15 [facility] Work Phone: Comment on above: Comments: CTest perf ormed at:[facility] [address] [place] [address] Comprehensive metabolic 2000 panel 95 mL/min Normal [facility] Work Phone: Comment on above: Comments: CTest perf ormed at:[facility] [address] [place] [address] Comprehensive metabolic 2000 panel 13.8 {RATIO} Normal 10-20 [facility] Work Phone: Comment on above: Comments: CTest perf ormed at:[facility] [address] [place] [address] Comprehensive metabolic 2000 panel 6.9 g/dL Normal 6.4-8.2 [facility] Work Phone: Comment on above: Comments: CTest perf ormed at:[facility] [address] [place] [address] Comprehensive metabolic 2000 panel 3.8 g/dL Normal 3.4-5.0 [facility] Work Phone: Comment on above: Comments: CTest perf ormed at:[facility] [address] [place] [address] Comprehensive metabolic 2000 panel 3.1 g/dL Normal 2.7-4.2 [facility] Work Phone: Comment on above: Comments: CTest perf ormed at:[facility] [address] [place] [address] Comprehensive metabolic 2000 panel 23 U/L Normal 12-78 [facility] Work Phone: Comment on above: Comments: CTest perf ormed at:[facility] [address] [place], [place] [id number] Comprehensive metabolic 2000 panel 8.7 mg/dL Normal 8.5-10.1 [facility] Work Phone: Comment on above: Comments: CTest perf ormed at:[facility] [address] [place] [address] Comprehensive metabolic 2000 panel 18 U/L Normal 15-37 [facility] Work Phone: Comment on above: Comments: CTest perf ormed at:[facility] [address] [place] [address] Comprehensive metabolic 2000 panel 69 U/L Normal 50-136 [facility] Work Phone: Comment on above: Comments: CTest perf ormed at:[facility] [address] [place], [place] [id number] Basic Metabolic Profile (BMP )Ordered By: [employer] Operator on 11-01-2014 Calcium mass conc 8.7 mg/dL Normal 8.5-10.1 Compreh ensive Internal Medicine Work Phone: Comment on above: Test performed at:[facility] [address] [place] [address] Chloride molar conc 106 mmol/L Normal 98-107 Compr ehensive Internal Medicine Work Phone: Comment on above: Test performed at:[facility] [address] [place], [place] [address] CO2 molar conc 27.0 mmol/L Normal 21.0-32.0 Comprehen sive Internal Medicine Work Phone: Comment on above: Test performed at:[facility] [address] [place] [address] Creatinine mass conc 1.1 mg/dL Abnormal 0.6-1.0 Comp rehensive Internal Medicine Work Phone: Comment on above: Test performed at:[facility] [address] [place] [address] GFR/1.73 sq M predicted among non-blacks MDRD vol rate/area (S/P/Bld) 54 mL/min/{1.73_m2} Abnormal Comp rehensive Internal Medicine Work Phone: Comment on above: Test performed at:[facility] [address] [place] [address] Glucose mass conc 120 mg/dL Abnormal 70-110 Compreh ensive Internal Medicine Work Phone: Comment on above: Fasting Glucose resu lt from 110 to <126 mg/dLsuggests IMPAIRED HOMEOSTASIS per A.D.A. criteria. Test performed at:[facility] [address] [place] [address] Potassium molar conc 3.6 mmol/L Normal 3.5-5.1 Comp rehensive Internal Medicine Work Phone: Comment on above: Test performed at:[facility] [address] [place] [address] Sodium molar conc 140 mmol/L Normal 136-145 Compreh ensive Internal Medicine Work Phone: Comment on above: Test performed at:[facility] [address] [place] [address] Urea nitrogen mass conc 17 mg/dL Normal 7-18 C omprehensive Internal Medicine Work Phone: Comment on above: Test performed at:[facility] [address] [place] [address] Basic Metabolic Profile (BMP) 65.38 ml/min Normal [facility] Work Phone: Comment on above: Test performed at:[facility] [address] [place] [address] Basic Metabolic Profile (BMP) 7 1 Normal 5-15 [facility] Work Phone: Comment on above: Test performed at:[facility] [address] [place] [address] Basic Metabolic Profile (BMP) 15.5 {RATIO} Normal 10-20 [facility] Work Phone: Comment on above: Test performed at:[facility] [address] [place] [address] Basic Metabolic Profile (BMP) 65 mL/min Normal [facility] Work Phone: Comment on above: Test performed at:[facility] [address] [place] [address] CBC W/Diff, AutomatedOrdered By: [employer] Repr[employer]ing [employer] Operator on 11-01-2014 Absolute Lymph 0.73 {X10_3/ul} Abnormal 0.83-4.51 Compr ehensive Internal Medicine Work Phone: Absolute Neut 9.7 {X10_3/uL} Abnormal 2.0-7.7 Compreh ensive Internal Medicine Work Phone: Comment on above: Test performed at:[facility] [address] [place] [address] Basophils/100 WBC (Bld) 0.2 % Normal 0-1 C omprehensive Internal Medicine Work Phone: Comment on above: Test performed at:[facility] [address] [place] [address] Basophils/100 WBC Auto (Bld) 0.2 % Normal 0-1 [facility] Work Phone: Eosinophils/100 WBC (Bld) 0.1 % Normal 0-5 [facility] Work Phone: Comment on above: Test performed at:[facility] [address] [place] [address] Eosinophils/100 WBC Auto (Bld) 0.1 % Normal 0-5 [facility] Work Phone: Erythrocyte distribution width Auto Ratio (RBC) 13.0 % Normal 11.6-14.6 [facility] Work Phone: Erythrocyte distribution width Ratio (RBC) 13.0 % Normal 11.6-14.6 [facility] Work Phone: Comment on above: Test performed at:[facility] [address] [place] [address] Hematocrit Auto Volume Fraction (Bld) 38.9 % Normal 37-47 [facility] Work Phone: Hematocrit Volume Fraction (Bld) 38.9 % Normal 37-47 [facility] Work Phone: Comment on above: Test performed at:[facility] [address] [place] [address] Hemoglobin mass conc (Bld) 13.3 g/dL Normal 12.0-15.0 [facility] Work Phone: Comment on above: Test performed at:[facility] [address] [place] [address] IM GRAN % 0.200 % Normal 0.0-0.9 [facility] Work Phone: Comment on above: IG% - Immature Granu locytes (promyelocytes, myelocytes andmetamyelocytes) > 1% indicates that a LEFT SHIFT is Present. Test performed at:[facility] [address] [place] [address] Lymphocytes #/vol (Bld) 0.73 {X10_3/ul} Abnormal 0.83-4. 51 [facility] Work Phone: Comment on above: Test performed at:[facility] [address] [place] [address] Lymphocytes/100 WBC (Bld) 6.5 % Abnormal 19-41 [facility] Work Phone: Comment on above: Test performed at:[facility] [address] [place] [address] Lymphocytes/100 WBC Auto (Bld) 6.5 % Abnormal 19-41 [facility] Work Phone: MCH Auto Entitic mass (RBC) 30.7 pg Normal 27.0-32.0 [facility] Work Phone: MCH Entitic mass (RBC) 30.7 pg Normal 27.0-32.0 [facility] Work Phone: Comment on above: Test performed at:[facility] [address] [place] [address] MCHC Auto mass conc (RBC) 34.2 {g/gl} Normal 32-36 [facility] Work Phone: MCHC mass conc (RBC) 34.2 {g/gl} Normal 32-36 [facility] prehensive Internal Medicine Work Phone: Comment on above: Test performed at:[facility] [address] [place] [address] MCV Auto Entitic volume (RBC) 89.8 fL Normal 81-99 [facility] Work Phone: MCV Entitic volume (RBC) 89.8 fL Normal 81-99 [facility] Work Phone: Comment on above: Test performed at:[facility] [address] [place] [address] Monocytes/100 WBC Auto (Bld) 6.4 % Normal 0-10 [facility] Work Phone: Comment on above: Test performed at:[facility] [address] [place] [address] Neutrophils/100 WBC (Bld) 86.6 % Abnormal 47-70 [facility] Work Phone: Comment on above: Test performed at:[facility] [address] [place] [address] Neutrophils/100 WBC Auto (Bld) 86.6 % Abnormal 47-70 [facility] Work Phone: Platelet mean volume Auto Entitic volume (Bld) 9.3 fL Normal 6.2-12.0 [facility] Work Phone: Platelet mean volume Entitic volume (Bld) 9.3 fL Normal 6.2-12.0 Comprehensi Internal Medicine Work Phone: Comment on above: Test performed at:[facility] [address] [place] [address] Platelets #/vol (Bld) 233 10*3/uL Normal 150-450 [facility] Work Phone: Comment on above: Test performed at:[facility] [address] [place] [address] Platelets Auto #/vol (Bld) 233 10*3/uL Normal 150-450 [facility] Work Phone: RBC #/vol (Bld) 4.33 {M/mm3} Normal 4.2-5.4 Compreh ensive Internal Medicine Work Phone: Comment on above: Test performed at:[facility] [address] [place] [address] RBC Auto #/vol (Bld) 4.33 {M/mm3} Normal 4.2-5.4 [facility] Work Phone: RDW SD 42.3 fL Normal 35.1-43.9 [facility] Internal Medicine Work Phone: Comment on above: Test performed at:[facility] [address] [place] [address] WBC #/vol (Bld) 11.2 10*3/uL Abnormal 4.4-11.0 Compreh ensive Internal Medicine Work Phone: Comment on above: Test performed at:[facility] [address] [place] [address] WBC Auto #/vol (Bld) 11.2 10*3/uL Abnormal 4.4-11.0 Co mprehensive Internal Medicine Work Phone: Urinalysis, CompleteOrdered By: [employer] Reprinting Unit Operator on 11-01-2014 Bacteria LM.HPF #/area (Urine sed) 0 SEEN Normal [facility] Work Phone: Comment on above: Order Date: 11/01/14 Has pt arrived? YHow was Urine Obtained? CLEAN CATCHTest performed at:[facility] [address] [facility] [place] [address] Clarity Nom (U) Clear Normal [facility] Internal Medicine Work Phone: Comment on above: Order Date: 11/01/14 Has pt arrived? YHow was Urine Obtained? CLEAN CATCHTest performed at:[facility] [address] [place] [address] Color Nom (U) Yellow Normal [facility] Internal [facility] Work Phone: Comment on above: Order Date: 11/01/14 Has pt arrived? YHow was Urine Obtained? CLEAN CATCHTest performed at:[facility] [address] [place] [address] RBC #/vol (U) 5-10 SEEN Normal 0-5 [facility] Internal Medicine Work Phone: Comment on above: Order Date: 11/01/14 Has pt arrived? YHow was Urine Obtained? CLEAN CATCHTest performed at:[facility] [address] [place] [address] RBC Test strip #/vol (U) 5-10 SEEN Normal 0-5 [facility] Work Phone: WBC #/vol (Bld) 0-5 SEEN Normal 0-5 [facility] Work Phone: Comment on above: Order Date: 11/01/14 Has pt arrived? YHow was Urine Obtained? CLEAN CATCHTest performed at:[facility] [facility] [address] [place] [address] Urinalysis, Complete Negative Normal Comp rehensive Internal Medicine Work Phone: Comment on above: Order Date: 11/01/14 Has pt arrived? YHow was Urine Obtained? CLEAN CATCHTest performed at:[facility] [address] [place], [place] [id number] Urinalysis, Complete Normal Normal Comp rehensive Internal Medicine Work Phone: Comment on above: Order Date: 11/01/14 Has pt arrived? YHow was Urine Obtained? CLEAN CATCHTest performed at:[facility] [address] [place] [address] Urinalysis, Complete Yellow Normal Comp rehensive Internal Medicine Work Phone: Urinalysis, Complete 25 /ul Abnormal Comp rehensive Internal Medicine Work Phone: Comment on above: Order Date: 11/01/14 Has pt arrived? YHow was Urine Obtained? CLEAN CATCHTest performed at:[facility] [address] [place], [place] [id number] Urinalysis, Complete 6.0 1 Normal 5.0 - 8.0 Comp rehensive Internal Medicine Work Phone: Comment on above: Order Date: 11/01/14 Has pt arrived? YHow was Urine Obtained? CLEAN CATCHTest performed at:[facility] [address] [place], [place] [id number] Urinalysis, Complete 0 SEEN Normal Comp rehensive Internal Medicine Work Phone: Urinalysis, Complete Clear Normal Comp rehensive Internal Medicine Work Phone: Urinalysis, Complete 1.015 1 Normal 1.002-1 .03 0 Comprehensive [facility] Work Phone: Comment on above: Order Date: 11/01/14 Has pt arrived? YHow was Urine Obtained? CLEAN CATCHTest performed at:[facility] [address] [place], [place] [id number] Urinalysis, Complete 0-5 SEEN Normal 0-5 Comp rehensive Internal Medicine Work Phone: Comment on above: Order Date: 11/01/14 Has pt arrived? YHow was Urine Obtained? CLEAN CATCHTest performed at:[facility] [address] [place] [address] Urinalysis, Complete 1+ Normal Comp rehensive Internal Medicine Work Phone: Comment on above: Order Date: 11/01/14 Has pt arrived? YHow was Urine Obtained? CLEAN CATCHTest performed at:[facility] [address] [place] [address] Urinalysis, Complete 150 /ul Abnormal Comp rehensive Internal Medicine Work Phone: Comment on above: Order Date: 11/01/14 Has pt arrived? YHow was Urine Obtained? CLEAN CATCHTest performed at:[facility] [address] [place], [place] [id number] CBC W/Diff, AutomatedOrdered By: [employer] Repr[employer]ing [employer] Operator on 10-08-2014 Absolute Lymph 1.43 {X10_3/ul} Normal 0.83-4.51 Compr ehensive Internal Medicine Work Phone: Absolute Neut 3.6 {X10_3/uL} Normal 2.0-7.7 Compreh ensive Internal Medicine Work Phone: Comment on above: Test performed at:[facility] [address] [place] [address] Basophils/100 WBC (Bld) 0.3 % Normal 0-1 C omprehensive Internal Medicine Work Phone: Comment on above: Test performed at:[facility] [address] [place] [address] Basophils/100 WBC Auto (Bld) 0.3 % Normal 0-1 [facility] Work Phone: Eosinophils/100 WBC (Bld) 1.0 % Normal 0-5 [facility] Work Phone: Comment on above: Test performed at:[facility] [address] [place] [address] Eosinophils/100 WBC Auto (Bld) 1.0 % Normal 0-5 [facility] Work Phone: Erythrocyte distribution width Auto Ratio (RBC) 13.2 % Normal 11.6-14.6 [facility] Work Phone: Erythrocyte distribution width Ratio (RBC) 13.2 % Normal 11.6-14.6 [facility] Work Phone: Comment on above: Test performed at:[facility] [address] [place] [address] Hematocrit Auto Volume Fraction (Bld) 40.3 % Normal 37-47 [facility] Work Phone: Hematocrit Volume Fraction (Bld) 40.3 % Normal 37-47 [facility] Work Phone: Comment on above: Test performed at:[facility] [address] [place] [address] Hemoglobin mass conc (Bld) 13.4 g/dL Normal 12.0-15.0 [facility] Work Phone: Comment on above: Test performed at:[facility] [address] [place] [address] IM GRAN % 0.200 % Normal 0.0-0.9 [facility] Work Phone: Comment on above: IG% - Immature Granu locytes (promyelocytes, myelocytes andmetamyelocytes) > 1% indicates that a LEFT SHIFT is Present. Test performed at:[facility] [address] [place] [address] Lymphocytes #/vol (Bld) 1.43 {X10_3/ul} Normal 0.83-4. 51 [facility] Work Phone: Comment on above: Test performed at:[facility] [address] [place] [address] Lymphocytes/100 WBC (Bld) 24.5 % Normal 19-41 [facility] Work Phone: Comment on above: Test performed at:[facility] [address] [place] [address] Lymphocytes/100 WBC Auto (Bld) 24.5 % Normal 19-41 [facility] Work Phone: MCH Auto Entitic mass (RBC) 30.1 pg Normal 27.0-32.0 [facility] Work Phone: MCH Entitic mass (RBC) 30.1 pg Normal 27.0-32.0 Co mprehensive Internal Medicine Work Phone: Comment on above: Test performed at:[facility] [address] [place] [address] MCHC Auto mass conc (RBC) 33.3 {g/gl} Normal 32-36 [facility] Work Phone: MCHC mass conc (RBC) 33.3 {g/gl} Normal 32-36 [facility] prehensive Internal Medicine Work Phone: Comment on above: Test performed at:[facility] [address] [place] [address] MCV Auto Entitic volume (RBC) 90.6 fL Normal 81-99 [facility] Work Phone: MCV Entitic volume (RBC) 90.6 fL Normal 81-99 [facility] Work Phone: Comment on above: Test performed at:[facility] [address] [place] [address] Monocytes/100 WBC Auto (Bld) 11.7 % Abnormal 0-10 [facility] Work Phone: Comment on above: Test performed at:[facility] [address] [place] [address] Neutrophils/100 WBC (Bld) 62.3 % Normal 47-70 [facility] Work Phone: Comment on above: Test performed at:[facility] [address] [place] [address] Neutrophils/100 WBC Auto (Bld) 62.3 % Normal 47-70 [facility] Work Phone: Platelet mean volume Auto Entitic volume (Bld) 9.5 fL Normal 6.2-12.0 [facility] Work Phone: Platelet mean volume Entitic volume (Bld) 9.5 fL Normal 6.2-12.0 Comprehensi ve Internal Medicine Work Phone: Comment on above: Test performed at:[facility] [address] [place] [address] Platelets #/vol (Bld) 243 10*3/uL Normal 150-450 [facility] Work Phone: Comment on above: Test performed at:[facility] [address] [place] [address] Platelets Auto #/vol (Bld) 243 10*3/uL Normal 150-450 [facility] Work Phone: RBC #/vol (Bld) 4.45 {M/mm3} Normal 4.2-5.4 Compreh ensive Internal Medicine Work Phone: Comment on above: Test performed at:[facility] [address] [place] [address] RBC Auto #/vol (Bld) 4.45 {M/mm3} Normal 4.2-5.4 [facility] Work Phone: RDW SD 42.6 fL Normal 35.1-43.9 [facility] Work Phone: Comment on above: Test performed at:[facility] [address] [place] [address] WBC #/vol (Bld) 5.8 10*3/uL Normal 4.4-11.0 Comprehe nsive Internal Medicine Work Phone: Comment on above: Test performed at:[facility] [address] [place] [address] WBC Auto #/vol (Bld) 5.8 10*3/uL Normal 4.4-11.0 [facility] prehensive Internal Medicine Work Phone: Comprehensive Metabolic Prof ilOrdered By: [employer] Repr[employer]ing [employer] Operator on 10-08-2014 Albumin mass conc 3.9 g/dL Normal 3.4-5.0 Compreh ensive Internal Medicine Work Phone: Comment on above: Test performed at:[facility] [address] [place] [address] Albumin/Globulin mass ratio 1.3 {RATIO} Normal 0.9-2.4 [facility] Work Phone: Comment on above: Test performed at:[facility] [address] [place] [address] ALT enzyme act/vol 26 U/L Normal 12-78 [facility] Work Phone: Comment on above: Test performed at:[facility] [address] [place] [address] AST enzyme act/vol 10 U/L Abnormal 15-37 Compre [facility] Internal Medicine Work Phone: Comment on above: Test performed at:[facility] [address] [place] [address] Bilirubin mass conc 1.00 mg/dL Normal 0.00-4.00 Compr ensive Internal Medicine Work Phone: Comment on above: Test performed at:[facility] [address] [place] [address] Calcium mass conc 8.5 mg/dL Normal 8.5-10.1 Compreh [facility] Work Phone: Comment on above: Test performed at:[facility] [address] [place] [address] Chloride molar conc 107 mmol/L Normal 98-107 Compr ensive Internal Medicine Work Phone: Comment on above: Test performed at:[facility] [address] [place] [address] CO2 molar conc 27.0 mmol/L Normal 21.0-32.[address] [facility] Internal [facility] Work Phone: Comment on above: Test performed at:[facility] [address] [place] [address] Creatinine mass conc 0.9 mg/dL Normal 0.6-1.0 Comp rehensive Internal Medicine Work Phone: Comment on above: Test performed at:[facility] [address] [place] [address] GFR/1.73 sq M predicted among non-blacks MDRD vol rate/area (S/P/Bld) 68 mL/min/{1.73_m2} Normal Comp rehensive Internal Medicine Work Phone: Comment on above: Test performed at:[facility] [address] [place] [address] Globulin Calculated mass conc (S) 3.0 g/dL Normal 2.7-4.2 [facility] Work Phone: Globulin mass conc (S) 3.0 g/dL Normal 2.7-4.2 [facility] Work Phone: Comment on above: Test performed at:[facility] [address] [place] [address] Glucose mass conc 98 mg/dL Normal 70-110 Compreh ensive Internal Medicine Work Phone: Comment on above: Test performed at:[facility] [address] [place] [address] Potassium molar conc 3.7 mmol/L Normal 3.5-5.1 Comp rehensive Internal Medicine Work Phone: Comment on above: Test performed at:[facility] [address] [place] [address] Protein mass conc 6.9 g/dL Normal 6.4-8.2 Compreh ensive Internal Medicine Work Phone: Comment on above: Test performed at:[facility] [address] [place] [address] Sodium molar conc 140 mmol/L Normal 136-145 Compreh ensive Internal Medicine Work Phone: Comment on above: Test performed at:[facility] [address] [place] [address] Urea nitrogen mass conc 10 mg/dL Normal 7-18 C omprehensive Internal Medicine Work Phone: Comment on above: Test performed at:[facility] [address] [place] [address] Comprehensive Metabolic Profil 6 1 Normal 5-15 Comprehensive Internal Medicine Work Phone: Comment on above: Test performed at:[facility] [address] [place] [address] Comprehensive Metabolic Profil 1.3 {RATIO} Normal 0.9-2.4 [facility] Internal Medicine Work Phone: Comprehensive Metabolic Profil 60 U/L Normal 50-136 Comprehensive Internal Medicine Work Phone: Comment on above: Test performed at:[facility] [address] [place] [address] Comprehensive Metabolic Profil 11.1 {RATIO} Normal 10-20 Comprehensive Internal Medicine Work Phone: Comment on above: Test performed at:[facility] [address] [place] [address] Comprehensive Metabolic Profil 82 mL/min Normal Comprehensive Internal Medicine Work Phone: Comment on above: Test performed at:[facility] [address] [place] [address] CBCDOrdered By: System Manag er on 06-30-2014 Erythrocyte distribution width Auto Ratio (RBC) 12.5 % Normal 11.6-14.6 [facility] Work Phone: Erythrocyte distribution width Ratio (RBC) 12.5 % Normal 11.6-14.6 [facility] Work Phone: Hematocrit Auto Volume Fraction (Bld) 39.4 % Normal 37-47 [facility] Work Phone: Hematocrit Volume Fraction (Bld) 39.4 % Normal 37-47 [facility] Work Phone: Hemoglobin mass conc (Bld) 13.5 g/dL Normal 12.0-15.0 [facility] Work Phone: MCH Auto Entitic mass (RBC) 30.1 pg Normal 27.0-32.0 [facility] Work Phone: MCH Entitic mass (RBC) 30.1 pg Normal 27.0-32.0 Co [facility] Internal Medicine Work Phone: MCHC Auto mass conc (RBC) 34.3 {g/gl} Normal 32-36 [facility] Internal Medicine Work Phone: MCHC mass conc (RBC) 34.3 {g/gl} Normal 32-36 [facility] Internal Medicine Work Phone: MCV Auto Entitic volume (RBC) 87.8 fL Normal 81-99 [facility] Internal Medicine Work Phone: MCV Entitic volume (RBC) 87.8 fL Normal 81-99 [facility] Internal Medicine Work Phone: Platelet mean volume Auto Entitic volume (Bld) 9.3 fL Normal 6.2-12.0 [facility] Internal Medicine Work Phone: Platelet mean volume Entitic volume (Bld) 9.3 fL Normal 6.2-12.0 Comprehensi Internal Medicine Work Phone: Platelets #/vol (Bld) 180 10*3/uL Normal 150-450 Co mprehensive Internal Medicine Work Phone: Platelets Auto #/vol (Bld) 180 10*3/uL Normal 150-450 Comprehensive Internal Medicine Work Phone: RBC #/vol (Bld) 4.49 {M/mm3} Normal 4.2-5.4 Compreh ensive Internal Medicine Work Phone: RBC Auto #/vol (Bld) 4.49 {M/mm3} Normal 4.2-5.4 Co mprehensive Internal Medicine Work Phone: WBC #/vol (Bld) 5.3 10*3/uL Normal 4.4-11.0 Comprehe nsive Internal Medicine Work Phone: WBC Auto #/vol (Bld) 5.3 10*3/uL Normal 4.4-11.0 Com prehensive Internal Medicine Work Phone: CBCD 65.8 % Normal 47-70 [facility] Internal Medicine Work Phone: CBCD 15.6 % Abnormal 19-41 Comprehensive Internal Medicine Work Phone: CBCD 0.82 {X10_3/ul} Abnormal 0.83-4.51 Comprehen sive Internal Medicine Work Phone: CBCD 12.9 % Abnormal 0-10 Comprehensive Internal Medicine Work Phone: CBCD 5.1 % Abnormal 0-5 [facility] Internal Medicine Work Phone: CBCD 39.5 fL Normal 35.1-43.9 [facility] Internal Medicine Work Phone: CBCD 0.200 % Normal 0.0-0.9 [facility] Internal Medicine Work Phone: Comment on above: IG% - Immature Granu locytes (promyelocytes, myelocytes andmetamyelocytes) > 1% indicates that a LEFT SHIFT is Present. CBCD 3.5 {X10_3/uL} Normal 2.0-7.7 Comprehens [facility] Internal Medicine Work Phone: CBCD 0.4 % Normal 0-1 Comprehensive Internal Medicine Work Phone: CMPOrdered By: System Manage r on 06-30-2014 Albumin mass conc 4.1 g/dL Normal 3.4-5.0 Compreh ensive Internal Medicine Work Phone: Albumin/Globulin mass ratio 1.5 {RATIO} Normal 0.9-2.4 [facility] Internal Medicine Work Phone: ALP enzyme act/vol 83 U/L Normal 50-136 Compre [facility] Internal Medicine Work Phone: ALT enzyme act/vol 57 U/L Normal 12-78 [facility] Internal Medicine Work Phone: AST enzyme act/vol 37 U/L Normal 15-37 Compre [facility] Internal Medicine Work Phone: Bilirubin mass conc 1.10 mg/dL Normal 0.00-4.00 Compr ensive Internal Medicine Work Phone: Calcium mass conc 9.0 mg/dL Normal 8.5-10.1 Compreh ensive Internal Medicine Work Phone: Chloride molar conc 105 mmol/L Normal 98-107 Compr ensive Internal Medicine Work Phone: CO2 molar conc 29.0 mmol/L Normal 21.0-32.[address] [facility] Internal [facility] Work Phone: Creatinine mass conc 0.9 mg/dL Normal 0.6-1.0 [facility] Work Phone: GFR/1.73 sq M predicted among non-blacks MDRD vol rate/area (S/P/Bld) 68 mL/min/{1.73_m2} Normal Comp [facility] Work Phone: Globulin Calculated mass conc (S) 2.7 g/dL Normal 2.7-4.2 Comprehensive Internal Medicine Work Phone: Globulin mass conc (S) 2.7 g/dL Normal 2.7-4.2 [facility] Work Phone: Glucose mass conc 92 mg/dL Normal 70-110 Compreh ensive Internal Medicine Work Phone: Potassium molar conc 3.9 mmol/L Normal 3.5-5.1 Comp [facility] Work Phone: Protein mass conc 6.8 g/dL Normal 6.4-8.2 Compreh ensive Internal Medicine Work Phone: Sodium molar conc 139 mmol/L Normal 136-145 Compreh ensive Internal Medicine Work Phone: Urea nitrogen mass conc 15 mg/dL Normal 7-18 C omprehensive Internal Medicine Work Phone: Urea nitrogen/Creatinine mass ratio 16.7 {RATIO} Normal 10-20 [facility] Internal Medicine Work Phone: CMP 82 mL/min Normal Comprehensive Internal Medicine Work Phone: CMP 5 1 Normal 5-15 [facility] Internal Medicine Work Phone: CBCDOrdered By: System [facility] on 04-03-2014 Erythrocyte distribution width Auto Ratio (RBC) 12.4 % Normal 11.6-14.6 [facility] Internal Medicine Work Phone: Erythrocyte distribution width Ratio (RBC) 12.4 % Normal 11.6-14.6 [facility] Work Phone: Hematocrit Auto Volume Fraction (Bld) 39.7 % Normal 37-47 [facility] Internal Medicine Work Phone: Hematocrit Volume Fraction (Bld) 39.7 % Normal 37-47 [facility] Internal Medicine Work Phone: Hemoglobin mass conc (Bld) 13.6 g/dL Normal 12.0-15.0 [facility] Internal Medicine Work Phone: MCH Auto Entitic mass (RBC) 30.3 pg Normal 27.0-32.0 [facility] Internal Medicine Work Phone: MCH Entitic mass (RBC) 30.3 pg Normal 27.0-32.0 Co mprehensive Internal Medicine Work Phone: MCHC Auto mass conc (RBC) 34.3 {g/gl} Normal 32-36 Comprehensive Internal Medicine Work Phone: MCHC mass conc (RBC) 34.3 {g/gl} Normal 32-36 Com prehensive Internal Medicine Work Phone: MCV Auto Entitic volume (RBC) 88.4 fL Normal 81-99 [facility] Internal Medicine Work Phone: MCV Entitic volume (RBC) 88.4 fL Normal 81-99 [facility] Internal Medicine Work Phone: Platelet mean volume Auto Entitic volume (Bld) 9.2 fL Normal 6.2-12.0 [facility] Internal Medicine Work Phone: Platelet mean volume Entitic volume (Bld) 9.2 fL Normal 6.2-12.0 Comprehensi ve Internal Medicine Work Phone: Platelets #/vol (Bld) 213 10*3/uL Normal 150-450 Co mprehensive Internal Medicine Work Phone: Platelets Auto #/vol (Bld) 213 10*3/uL Normal 150-450 Comprehensive Internal Medicine Work Phone: RBC #/vol (Bld) 4.49 {M/mm3} Normal 4.2-5.4 Compreh ensive Internal Medicine Work Phone: RBC Auto #/vol (Bld) 4.49 {M/mm3} Normal 4.2-5.4 Co mprehensive Internal Medicine Work Phone: WBC #/vol (Bld) 5.0 10*3/uL Normal 4.4-11.0 Comprehe nsive Internal Medicine Work Phone: WBC Auto #/vol (Bld) 5.0 10*3/uL Normal 4.4-11.0 Com prehensive Internal Medicine Work Phone: CBCD 2.2 % Normal 0-5 Comprehensive Internal Medicine Work Phone: CBCD 39.0 % Normal 19-41 Comprehensive Internal Medicine Work Phone: CBCD 44.3 % Abnormal 47-70 Comprehensive Internal Medicine Work Phone: CBCD 0.4 % Normal 0-1 Comprehensive Internal Medicine Work Phone: CBCD 40.1 fL Normal 35.1-43.9 Comprehensive Internal Medicine Work Phone: CBCD 0.200 % Normal 0.0-0.9 Comprehensive Internal Medicine Work Phone: Comment on above: IG% - Immature Granu locytes (promyelocytes, myelocytes andmetamyelocytes) > 1% indicates that a LEFT SHIFT is Present. CBCD 13.9 % Abnormal 0-10 Comprehensive Internal Medicine Work Phone: CBCD 2.2 {X10_3/uL} Normal 2.0-7.7 [facility] Internal [facility] Work Phone: CBCD 1.93 {X10_3/ul} Normal 0.83-4.51 [facility] Internal Medicine Work Phone: CMPOrdered By: System Manage r on 04-03-2014 Albumin mass conc 3.9 g/dL Normal 3.4-5.0 [facility] Internal Medicine Work Phone: Albumin/Globulin mass ratio 1.3 {RATIO} Normal 0.9-2.4 [facility] Internal Medicine Work Phone: ALP enzyme act/vol 76 U/L Normal 45-117 [facility] Internal Medicine Work Phone: ALT enzyme act/vol 20 U/L Normal 12-78 [facility] Internal Medicine Work Phone: AST enzyme act/vol 16 U/L Normal 15-37 [facility] Internal Medicine Work Phone: Bilirubin mass conc 0.80 mg/dL Normal 0.00-1.00 [facility] Internal Medicine Work Phone: Calcium mass conc 9.2 mg/dL Normal 8.5-10.1 [facility] Internal Medicine Work Phone: Chloride molar conc 104 mmol/L Normal 98-107 [facility] Internal Medicine Work Phone: CO2 molar conc 30.0 mmol/L Normal 21.0-32.0 [facility] Internal Medicine Work Phone: Creatinine mass conc 0.8 mg/dL Normal 0.6-1.0 [facility] Internal Medicine Work Phone: GFR/1.73 sq M predicted among non-blacks MDRD vol rate/area (S/P/Bld) 78 mL/min/{1.73_m2} Normal [facility] Internal Medicine Work Phone: Globulin Calculated mass conc (S) 3.0 g/dL Normal 2.7-4.2 [facility] Internal Medicine Work Phone: Globulin mass conc (S) 3.0 g/dL Normal 2.7-4.2 Co mprehensive Internal Medicine Work Phone: Glucose mass conc 98 mg/dL Normal 70-110 Compreh ensive Internal Medicine Work Phone: Potassium molar conc 3.6 mmol/L Normal 3.5-5.1 Comp rehensive Internal Medicine Work Phone: Protein mass conc 6.9 g/dL Normal 6.4-8.2 Compreh ensive Internal Medicine Work Phone: Sodium molar conc 140 mmol/L Normal 136-145 Compreh ensive Internal Medicine Work Phone: Urea nitrogen mass conc 17 mg/dL Normal 7-18 C omprehensive Internal Medicine Work Phone: Urea nitrogen/Creatinine mass ratio 21.3 {RATIO} Abnormal 10-20 Comprehensive Internal Medicine Work Phone: CMP 6 1 Normal 5-15 [facility] Internal Medicine Work Phone: CMP 95 mL/min Normal Comprehensive Internal Medicine Work Phone: CBCDOrdered By: System Manag er on 07-08-2013 Erythrocyte distribution width Auto Ratio (RBC) 13.0 % Normal 11.6-14.6 [facility] Internal Medicine Work Phone: Erythrocyte distribution width Ratio (RBC) 13.0 % Normal 11.6-14.6 [facility] Work Phone: Hematocrit Auto Volume Fraction (Bld) 40.6 % Normal 37-47 [facility] Internal Medicine Work Phone: Hematocrit Volume Fraction (Bld) 40.6 % Normal 37-47 [facility] Internal Medicine Work Phone: Hemoglobin mass conc (Bld) 13.9 g/dL Normal 12.0-15.0 [facility] Internal Medicine Work Phone: MCH Auto Entitic mass (RBC) 30.8 pg Normal 27.0-32.0 [facility] Internal Medicine Work Phone: MCH Entitic mass (RBC) 30.8 pg Normal 27.0-32.0 Co mprehensive Internal Medicine Work Phone: MCHC Auto mass conc (RBC) 34.2 {g/gl} Normal 32-36 [facility] Internal Medicine Work Phone: MCHC mass conc (RBC) 34.2 {g/gl} Normal 32-36 Com prehensive Internal Medicine Work Phone: MCV Auto Entitic volume (RBC) 90.0 fL Normal 81-99 [facility] Internal Medicine Work Phone: MCV Entitic volume (RBC) 90.0 fL Normal 81-99 [facility] Work Phone: Platelet mean volume Auto Entitic volume (Bld) 9.7 fL Normal 6.2-12.0 [facility] Work Phone: Platelet mean volume Entitic volume (Bld) 9.7 fL Normal 6.2-12.0 Comprehensi ve [facility] Medicine Work Phone: Platelets #/vol (Bld) 239 10*3/uL Normal 150-450 Co [facility] Work Phone: Platelets Auto #/vol (Bld) 239 10*3/uL Normal 150-450 [facility] Work Phone: RBC #/vol (Bld) 4.51 {M/mm3} Normal 4.2-5.4 Compreh ensive [facility] Medicine Work Phone: RBC Auto #/vol (Bld) 4.51 {M/mm3} Normal 4.2-5.4 [facility] Work Phone: WBC #/vol (Bld) 4.4 10*3/uL Normal 4.4-11.0 Comprehe nsive [facility] Medicine Work Phone: WBC Auto #/vol (Bld) 4.4 10*3/uL Normal 4.4-11.0 Com prehensive [facility] Work Phone: CBCD 50.6 % Normal 47-70 [facility] Work Phone: CBCD 31.0 % Normal 19-41 [facility] Work Phone: CBCD 0.000 % Normal 0.0-0.9 [facility] Work Phone: Comment on above: IG% - Immature Granu locytes (promyelocytes, myelocytes andmetamyelocytes) > 1% indicates that a LEFT SHIFT is Present. CBCD 0.5 % Normal 0-1 [facility] Work Phone: CBCD 14.9 % Abnormal 0-10 [facility] Work Phone: CBCD 3.0 % Normal 0-5 [facility] Work Phone: CBCD 2.2 {X10_3/uL} Normal 2.0-7.7 Comprehens maria dolores [facility] Work Phone: CBCD 42.0 fL Normal 35.1-43.9 [facility] Work Phone: CMPOrdered By: System Manage r on 07-08-2013 Albumin mass conc 3.7 g/dL Normal 3.4-5.[address] [facility] Internal Medicine Work Phone: Albumin/Globulin mass ratio 1.3 {RATIO} Normal 0.9-2.4 [facility] Work Phone: ALP enzyme act/vol 77 U/L Normal 50-136 [facility] Internal Medicine Work Phone: ALT enzyme act/vol 26 U/L Normal 12-78 [facility] Internal Medicine Work Phone: AST enzyme act/vol 17 U/L Normal 15-37 [facility] Internal Medicine Work Phone: Bilirubin mass conc 1.30 mg/dL Abnormal 0.00-1.00 [facility] Internal Medicine Work Phone: Calcium mass conc 8.8 mg/dL Normal 8.5-10.[address] [facility] Internal Medicine Work Phone: Chloride molar conc 107 mmol/L Normal 98-107 [facility] Internal Medicine Work Phone: CO2 molar conc 29.0 mmol/L Normal 21.0-32.0 Comprehen [facility] Internal Medicine Work Phone: Creatinine mass conc 0.9 mg/dL Normal 0.6-1.0 Comp [facility] Internal Medicine Work Phone: GFR/1.73 sq M predicted among non-blacks MDRD vol rate/area (S/P/Bld) 68 mL/min/{1.73_m2} Normal Comp rehensive Internal Medicine Work Phone: Globulin Calculated mass conc (S) 2.9 g/dL Normal 2.7-4.2 [facility] Work Phone: Globulin mass conc (S) 2.9 g/dL Normal 2.7-4.2 Co m[facility] Work Phone: Glucose mass conc 98 mg/dL Normal 70-110 Compreh ensive [facility] Medicine Work Phone: Potassium molar conc 3.8 mmol/L Normal 3.5-5.1 Comp rehensive Internal Medicine Work Phone: Protein mass conc 6.6 g/dL Normal 6.4-8.2 Compreh ensive [facility] Work Phone: Sodium molar conc 142 mmol/L Normal 136-145 Compreh ensive [facility] Medicine Work Phone: Urea nitrogen mass conc 11 mg/dL Normal 7-18 C omprehensive [facility] Work Phone: Urea nitrogen/Creatinine mass ratio 12.2 {RATIO} Normal 10-20 [facility] Work Phone: CMP 82 mL/min Normal [facility] Work Phone: CMP 6 1 Normal 5-15 [facility] Work Phone: LIPIDOrdered By: Farzad abdi on 07-08-2013 Cholesterol in HDL mass conc 54 mg/dL Normal [facility] Work Phone: Comment on above: Reference RangeHDL < 40 mg/dL Low HDL CholesterolHDL >or= 60 mg/dL High HDL Cholesterol Cholesterol in LDL mass conc 126 mg/dL Normal 0-130 [facility] Work Phone: Cholesterol mass conc 197 mg/dL Normal Com prehensive [facility] Work Phone: Comment on above: <200 mg/dL Desirable 200-240 mg/dL Borderline>240 mg/dL High Risk Triglyceride mass conc 87 mg/dL Normal 0-199 [facility] Work Phone: Comment on above: Serum Triglycerides Reference IntervalNormal <150 mg/dLBorderline high 150 - 199 mg/dLHigh 200 - 499 mg/dLVery High > or = 500 mg/dL LIPID 17 mg/dL Normal 5-40 [facility] Work Phone: TSHOrdered By: System Manage r on 07-08-2013 Thyrotropin Qn 0.89 {uIU/mL} Normal 0.358-3.74 Compreh ensive [facility] Medicine Work Phone: Rapid Strep Test, Office ([phone])Ordered By: Vane Fall on 12-19-2012 S. pyogenes Ag EIA Ql (Throat) Negative Normal [facility]; [facility] Work Phone: Comment on above: neg S. pyogenes Ag IA Ql (Unsp spec) Negative Normal [facility] Work Phone: Comment on above: neg LIPID PANEL ([id number])Ordered B y: [employer]ing Unit Operator on 01-20-2012 Cholesterol in HDL mass conc 52 mg/dL Normal [facility] Work Phone: Comment on above: According to ATP-III Guidelines, HDL-C >59 mg/dL is considered anegative risk factor for CHD. PATIENT NOT FASTINGP ERFORMED BY: [employer] [facility] [id number] Information: ADD [id number] AND DRAW FEE 99 [id number] Cholesterol in LDL mass conc 111 mg/dL Abnormal 0-99 [facility] Work Phone: Comment on above: PATIENT NOT FASTINGP ERFORMED BY: [employer] [facility] [id number] [facility] [id number] Information: ADD [id number] AND DRAW FEE 99 [id number] Cholesterol in LDL/Cholesterol in HDL mass ratio 2.1 {ratio_units} Normal 0.0-3.2 [facility] Work Phone: Comment on above: PATIENT NOT FASTINGP ERFORMED BY: [employer] [facility] Cxculw7382 [place] [facility] [id number] Information: ADD [id number] AND DRAW FEE 99 [id number] Cholesterol in VLDL mass conc 19 mg/dL Normal 5-40 [facility] Work Phone: Comment on above: PATIENT NOT FASTINGP ERFORMED BY: CB [facility] Ljvbgm8748 [address] [facility] [id number] Information: ADD [id number] AND DRAW FEE 99 [id number] Cholesterol mass conc 182 mg/dL Normal 100-199 Com prehensive [facility] Medicine Work Phone: Comment on above: PATIENT NOT FASTINGP ERFORMED BY: CB [facility] Xurydy5213 Slater RoadAtrium Health [facility] [id number] Information: ADD [id number] AND DRAW FEE 99 [id number] Triglyceride mass conc 97 mg/dL Normal 0-149 [facility] Work Phone: Comment on above: PATIENT NOT FASTINGP ERFORMED BY: CB [facility] Dtxluf5254 [facility] [id number] Information: ADD [id number] AND DRAW FEE 99 [id number] TSH ([id number])Ordered By: Syste m [employer] Scm Consultant on 01-20-2012 Thyrotropin Qn 1.800 {uIU/mL} Normal 0.450-4.50 0 [facility] Work Phone: Comment on above: PATIENT NOT FASTINGP ERFORMED BY: CB [facility] Tzsqif1914 [facility] [id number] ANAOrdered By: System Manage r on 12-07-2011 Nuclear Ab IF titer (S) Normal C omprehensive [facility] Work Phone: Comment on above: TESTING INTERPRETATI ONSPOSITIVE: > 120EQUIVOCAL: 100 - 120NEGATIVE: < 100 DR JONES ORDERED TDDR HORN ORDERED RPC Nuclear Ab IF titer (S) 16 AU/mL Normal C omprehensive [facility] Work Phone: Comment on above: DR JONES ORDERED TDDR HORN ORDERED RPC VERONIKA Normal [facility] Work Phone: Comment on above: TESTING INTERPRETATI ONSPOSITIVE: > 120EQUIVOCAL: 100 - 120NEGATIVE: < 100 VERONIKA 16 AU/mL Normal [facility] Work Phone: ASOOrdered By: System Manage r on 12-07-2011 ASO 73.2 {IU/mL} Normal 0.0-200.0 Comprehensiv e Internal Medicine Work Phone: Comment on above: Performed at: [address] [id number] Director: Valencia Yoon MD, Phone: [phone] DR JONES ORDERED TDDR HORN ORDERED RPC CRPOrdered By: System Manage r on 12-07-2011 CRP mass conc mg/L Normal 0.0-3.0 Comprehensi ve Internal Medicine Work Phone: Comment on above: C-Reactive Protein ( CRP) provides useful information for thediagnosis, therapy and monitoring of inflammatory processesand associated diseases. For the evaluation of Relative Riskfor Cardiovascular Disease, a High Sensitivity CRP (HSCRP)should be ordered. DR JONES ORDERED TDDR HORN ORDERED RPC RFOrdered By: [employer]ing Unit Operator on 12-07-2011 Rheumatoid factor Qn [IU]/mL Normal Comp rehensive Internal Medicine Work Phone: Comment on above: DR JONES ORDERED TDDR HORN ORDERED RPC SEDOrdered By: System Manage r on 12-07-2011 ESR Velocity (Bld) 12 mm/h Normal 0-30 [facility] Internal Medicine Work Phone: Comment on above: DR JONES ORDERED TDDR HORN ORDERED RPC URICOrdered By: System Manag er on 12-07-2011 URIC 3.9 mg/dL Normal 2.6-6.0 [facility] Internal Medicine Work Phone: Comment on above: DR JONES ORDERED TDDR HORN ORDERED RPC VITDOrdered By: System Manag er on 12-07-2011 VITD 75.7 ng/mL Normal 30.0-100.0 [facility] Internal Medicine Work Phone: Comment on above: Vitamin D deficiency has been defined by the [place] of[place] and an Endocrine Society practice guideline as alevel of serum 25-OH vitamin D less than 20 ng/mL (1,2).The Endocrine Society went on to further define vitamin Dinsufficiency as a level between 21 and 29 ng/mL (2).1. IOM ([place]). 2010. Dietary reference intakes for calcium and D. [place]: The National Academies Press.2. Andrey MF, Dago RAMIREZ, Cuauhtemoc MOSS, et al. Evaluation, treatment, and prevention of vitamin D deficiency: an Endocrine Society clinical practice guideline. JCEM. 2010; 96(7):1911-30. DR JONES ORDERED TDDR EDUARDO ORDERED RPC FOOT,MIN 3 VIEWSOrdered By: [employer]gun [employer] Repr[employer]ing Unit Operator on 07-15-2011 FOOT,MIN 3 VIEWS See Note Normal Comprehe nsive Internal Medicine Work Phone: Comment on above: PROCEDURE: X-RAY - L EFT FOOT CLINICAL: Female, 56 years old. Foot pain TECHNIQUE: Three views of the foot. COMPARISON: None. FINDINGS:There is a plantar calcaneal spur. Normal visualized subtalar, talonavicular, calcaneocuboid, tarsal andtarsometatarsal articulations. Normal metatarsi. Normal metatarsophalangeal joint of the great toe. Normal tibial andfibular sesamoid bones. Normal interphalangeal joint of the great toe.Normal phalanges of the great toe. Normal second through fifth metatarsophalangeal joints. Normalinterphalangeal joints of the lesser toes. Normal phalanges of thelessertoes. IMPRESSION:1. Plantar spur, otherwise normal. Dictated on 07/15/11 1057 by CHARIS BARGER MD, BTranscribed on 07/15/11 1216 by ITS IMPORTSign by CHARIS BARGER MD on 07/15/11 1217 Sign by: CHARIS BARGER MD LIPID PANEL ([id number])Ordered B y: [employer]ing Unit Operator on 05-25-2011 Cholesterol in HDL mass conc 50 mg/dL Normal [facility] Work Phone: Comment on above: According to ATP-III Guidelines, HDL-C >59 mg/dL is considered anegative risk factor for CHD. PATIENT WAS FASTINGP ERFORMED BY: [facility] Rhxmbf1431 [facility] [id number] Information: [id number] Cholesterol in LDL mass conc 111 mg/dL Abnormal 0-99 [facility] Work Phone: Comment on above: PATIENT WAS FASTINGP ERFORMED BY: [facility] Pesavh1864 [facility] [id number] Information: [id number] Cholesterol in LDL/Cholesterol in HDL mass ratio 2.2 {ratio_units} Normal 0.0-3.2 [facility] Work Phone: Comment on above: PATIENT WAS FASTINGP ERFORMED BY: [facility] Zkfwey74[address] [facility] [id number] Information: [id number] Cholesterol in VLDL mass conc 20 mg/dL Normal 5-40 [facility] Work Phone: Comment on above: PATIENT WAS FASTINGP ERFORMED BY: [facility] [id number] [facility] [id number] Information: [id number] Cholesterol mass conc 181 mg/dL Normal 100-199 Com prehensive Internal Medicine Work Phone: Comment on above: PATIENT WAS FASTINGP ERFORMED BY: [facility] Ogtrfc8680 [facility] [id number] Information: [id number] Triglyceride mass conc 101 mg/dL Normal 0-149 Co [facility] Internal Medicine Work Phone: Comment on above: PATIENT WAS FASTINGP ERFORMED BY: [facility] Zxmowi0297 [facility] [id number] Information: [id number] Vitamin D Hydroxy (85530)Ord ered By: [employer]gun [employer] Repr[employer]ing Unit Operator on 05-25-2011 Calcitriol mass conc 28.0 ng/mL Abnormal 32.0-100.0 [facility] Internal [facility] Work Phone: Comment on above: Recent studies consi nuris the lower limit of 32.0 ng/mL to be athreshold for optimal health.Darian SALDANA. J Nutr. 2004;135(2):317-22. PATIENT WAS FASTINGP ERFORMED BY: OLIVIA [facility]6370 [facility] [id number] DEXA BONE DENSITY STUDY () Ordered By: Shotgun [employer] Reprinting Unit Operator on 12-07-2010 DEXA BONE DENSITY STUDY () See Note Normal [facility] Work Phone: Comment on above: CLINICAL:Female, 55 years old. The patient is postmenopausal. EXAMINATION:DUAL ENERGY X-RAY ABSORPTIOMETRY / DEXA. TECHNIQUE:Bone Mineral Density (BMD) measurements of lumbar spine and bilateralhipswere obtained using a Altavoz scanner.. COMPARISON:Comparison is made with prior examination dated January 29, 2004. FINDINGS: Lumbar Spine (L1-L4): g/cm2 (0.888) / T-score (-2.4) / Z-score (-2.3)Left Femur Total: g/cm2 (0.700) / T-score (-2.4) / Z-score (-2.3)Right Femur Total: g/cm2 (0.732) / T-score (-2.2) / Z-score (-2.0) Since prior study, there has been an improvement of 9.1% in the bonedensity. IMPRESSION:The patient is considered osteopenic, as outlined above, according toWorldHealth Organization (WHO) criteria. Fracture risk is moderate. Reference Information:The T-score is the number of standard deviations above or below thestandard which is normal for young adults at their peak bone mineraldensity. The World Health Organization (WHO) interprets the T-scores asfollows: Above -1 Normal bone densityBetween -1 and -2.5 OsteopeniaEqual to / or below -2.5 Osteoporosis As a practical clinical guideline, osteopenia may be graded as follows:Mild -1 through -1.5Moderate -1.6 through -2.0Severe -2.1 through -2.4 The Z-score is the number of standard deviations above or below age-matchedcontrols. A Z-score of less than -1.5 would be considered abnormal. References:1. NIH Osteoporosis and Related Bone Diseases http://www.osteo.org2. International Society for Clinical Densitometry http://www.iscd.org3. National Osteoporosis Foundation http://www.nof.org Dictated on 12/07/10 1040 by Jack Price MDranscribed on 12/07/10 2321 by ITS IMPORTSign by James Price MD on 12/07/10 2322 Sign by: James Price MD MAMMOGRAPHY - BILATE RAL SCREENING INDICATION:Female, 55 years old. Routine annual screening examination. PERTINENT HISTORY:Sister with breast cancer. TECHNIQUE:Digital examination. Mediolateral oblique (MLO) and craniocaudad (CC)views of both breasts were obtained. CAD was performed on this study. COMPARISON:Comparison is made with prior study dated December 25, 2008. FINDINGS:The breast composition is heterogeneously dense. There are no masses or suspicious microcalcifications. No other significant abnormalities are identified. There has been nosignificant change since the prior study. IMPRESSION:Normal bilateral screening mammogram. Yearly follow-up recommended. ASSESSMENT CATEGORY:BIRADS Category 2: Benign finding(s). A letter regarding these resultswill be sent to the patient by the facility within 30 days. Approximately 10% of breast cancers are not detected by mammography. Anormal mammogram should not delay biopsy of a clinically suspiciousabnormality. Dictated on 12/07/10 1002 by Teri Price MDscribed on 12/07/10 2358 by ITS IMPORTSign by James Price MD on 12/07/10 235 Sign by: James rPice MD FECAL OCCULT HGB ASSAY- tube s sent home ([id number])Ordered By: Leighann Carbajal on 11-30-2010 Hemoglobin.gastrointest inal Ql (St) Negative Normal [facility] Work Phone: Hemoglobin.gastrointest inal Ql (Stl) Negative Normal [facility]; [facility] Work Phone: LIPIDOrdered By: Farzad abdi on 09-17-2010 Cholesterol in HDL mass conc 54 mg/dL Normal [facility] Work Phone: Comment on above: Reference Range HDL <40 mg/dL Low HDL Cholesterol HDL >or= 60 mg/dL High HDL Cholesterol Cholesterol in LDL mass conc 148 mg/dL Abnormal 0-130 [facility] Work Phone: Cholesterol in VLDL mass conc 19 mg/dL Normal 5-40 [facility] Work Phone: Cholesterol mass conc 221 mg/dL Abnormal Com prehensive Internal Medicine Work Phone: Comment on above: <200 mg/dL Desirable 200-240 mg/dL Borderline >240 mg/dL High Risk Triglyceride mass conc 93 mg/dL Normal Co mprehensive [facility] Work Phone: Comment on above: Serum Triglycerides Reference Interval Normal <150 mg/dL Borderline high 150 - 199 mg/dL High 200 - 499 mg/dL Very High > or = 500 mg/dL LIVEROrdered By: Farzad abdi on 09-17-2010 Albumin mass conc 4.0 g/dL Normal 3.4-5.0 Compreh ensive Internal Medicine Work Phone: ALP enzyme act/vol 69 U/L Normal 50-136 [facility] Work Phone: ALT enzyme act/vol 28 U/L Normal 12-78 [facility] Internal Medicine Work Phone: AST enzyme act/vol 11 U/L Abnormal 15-37 [facility] Internal Medicine Work Phone: Bilirubin mass conc 0.90 mg/dL Normal 0.00-1.00 Compr [facility] Internal Medicine Work Phone: Bilirubin.direct mass conc 0.18 mg/dL Normal 0.00-0.30 [facility] Internal Medicine Work Phone: Protein mass conc 7.8 g/dL Normal 6.4-8.2 Compreh ensive Internal Medicine Work Phone: VIT D,25 [id number] By: Carlos stem [employer] Scm Consultant on 09-17-2010 VIT D,25 [id number] 20.6 ng/mL Abnormal 32.0-100.0 Comprehens maria dolores Internal [facility] Work Phone: Comment on above: Recent studies consi nuris the lower limit of 32.0 ng/mL to hernan threshold for optimal health.Darian SALDANA. J Nutr. 2004;135(2):317-22.Performed at: [address] [id number] Director: Valencia Yoon MD, Phone: [phone] FECAL OCCULT HGB ASSAY, QUAL , 1-3 SIMULTANEOUS DETERMINATIONS ([id number])Ordered By: Emily Meadows on 01-23-2009 Hemoglobin.gastrointest inal Ql (St) Negative Normal [facility] Work Phone: Hemoglobin.gastrointest inal Ql (Stl) Negative Normal [facility]; [facility] Work Phone: C-Reactive Protein, QuantOrd ered By: Shotgun Shell Reprinting Unit Operator on 01-08-2009 CRP mass conc 2.6 mg/L Normal 0.0-4.9 Comprehensi ve Internal Medicine Work Phone: Comment on above: PERFORMED BY: [employer] [address] [id number] CBC With Differential/Platel etOrdered By: Shotgun Shell Reprinting Unit Operator on 01-08-2009 Basophils #/vol (Bld) 0.1 {x10E3/uL} Normal 0.0-0.2 [facility] Work Phone: Comment on above: PERFORMED BY: [employer] [address] [id number] Basophils Auto #/vol (Bld) 0.1 {x10E3/uL} Normal 0.0-0.2 [facility] Work Phone: Basophils/100 WBC (Bld) 1 % Normal 0-3 C [facility]rehensive [facility] Work Phone: Comment on above: PERFORMED BY: [employer] [address] [id number] Basophils/100 WBC Auto (Bld) 1 % Normal 0-3 [facility] Work Phone: Eosinophils #/vol (Bld) 0.1 {x10E3/uL} Normal 0.0-0.4 [facility] Work Phone: Comment on above: PERFORMED BY: [employer] [address] [id number] Eosinophils Auto #/vol (Bld) 0.1 {x10E3/uL} Normal 0.0-0.4 [facility] Work Phone: Eosinophils/100 WBC (Bld) 1 % Normal 0-7 [facility] Work Phone: Comment on above: PERFORMED BY: [employer] [address] [id number] Eosinophils/100 WBC Auto (Bld) 1 % Normal 0-7 [facility] Work Phone: Erythrocyte distribution width Auto Ratio (RBC) 13.4 % Normal 11.7-15.0 [facility] Work Phone: Erythrocyte distribution width Ratio (RBC) 13.4 % Normal 11.7-15.0 [facility] Work Phone: Comment on above: PERFORMED BY: [employer] [address] [id number] Hematocrit Auto Volume Fraction (Bld) 41.8 % Normal 34.0-44.0 [facility] Work Phone: Hematocrit Volume Fraction (Bld) 41.8 % Normal 34.0-44.0 [facility] Work Phone: Comment on above: PERFORMED BY: [employer] [address] [id number] Hemoglobin mass conc (Bld) 14.2 g/dL Normal 11.5-15.0 [facility] Work Phone: Comment on above: PERFORMED BY: [employer] [address] [id number] Lymphocytes #/vol (Bld) 1.7 {x10E3/uL} Normal 0.7-4.5 [facility] Work Phone: Comment on above: PERFORMED BY: [employer] [address] [id number] Lymphocytes Auto #/vol (Bld) 1.7 {x10E3/uL} Normal 0.7-4.5 [facility] Work Phone: Lymphocytes/100 WBC (Bld) 34 % Normal 14-46 [facility] Work Phone: Comment on above: PERFORMED BY: [employer] [address] [id number] Lymphocytes/100 WBC Auto (Bld) 34 % Normal 14-46 [facility] Work Phone: MCH Auto Entitic mass (RBC) 30.1 pg Normal 27.0-34.0 [facility] Work Phone: MCH Entitic mass (RBC) 30.1 pg Normal 27.0-34.0 Co mprehensive [facility] Work Phone: Comment on above: PERFORMED BY: [employer] [address] [id number] MCHC Auto mass conc (RBC) 34.0 g/dL Normal 32.0-36.0 [facility] Work Phone: MCHC mass conc (RBC) 34.0 g/dL Normal 32.0-36.0 [facility] Work Phone: Comment on above: PERFORMED BY: [employer] [address] [id number] MCV Auto Entitic volume (RBC) 89 fL Normal 80-98 [facility] Work Phone: MCV Entitic volume (RBC) 89 fL Normal 80-98 [facility] Work Phone: Comment on above: PERFORMED BY: [employer] [address] [id number] Monocytes #/vol (Bld) 0.5 {x10E3/uL} Normal 0.1-1.0 [facility] Work Phone: Comment on above: PERFORMED BY: [employer] [address] [id number] Monocytes Auto #/vol (Bld) 0.5 {x10E3/uL} Normal 0.1-1.0 [facility] Work Phone: Monocytes/100 WBC (Bld) 10 % Normal 4-13 C o[facility]rehensive [facility] Work Phone: Comment on above: PERFORMED BY: [employer] [address] [id number] Monocytes/100 WBC Auto (Bld) 10 % Normal 4-13 [facility] Work Phone: Neutrophils #/vol (Bld) 2.8 {x10E3/uL} Normal 1.8-7.8 [facility] Work Phone: Comment on above: PERFORMED BY: [employer] [address] [id number] Neutrophils Auto #/vol (Bld) 2.8 {x10E3/uL} Normal 1.8-7.8 [facility] Work Phone: Neutrophils/100 WBC (Bld) 54 % Normal 40-74 [facility] Work Phone: Comment on above: PERFORMED BY: [employer] [address] [id number] Neutrophils/100 WBC Auto (Bld) 54 % Normal 40-74 [facility] Work Phone: Platelets #/vol (Bld) 271 {x10E3/uL} Normal 140-415 [facility] Work Phone: Comment on above: Effective January 19, 2009, the reference interval for Platelet Count, will be changing to: . 0 - 7 days 150 - 381 8 - 30 days 150 - 477 31- 90 days 150 - 579 91 days - up 1 year 150 - 496 1 - 7 years 150 - 440 8 - 17 years 150 - 349 Adult 140 - 415 PERFORMED BY: [employer] [address] [id number] Platelets Auto #/vol (Bld) 271 {x10E3/uL} Normal 140-415 [facility] Work Phone: Comment on above: Effective January 19, 2009, the reference interval for Platelet Count, will be changing to: . 0 - 7 days 150 - 381 8 - 30 days 150 - 477 31- 90 days 150 - 579 91 days - up 1 year 150 - 496 1 - 7 years 150 - 440 8 - 17 years 150 - 349 Adult 140 - 415 RBC #/vol (Bld) 4.72 {x10E6/uL} Normal 3.80-5.10 [facility] Work Phone: Comment on above: PERFORMED BY: [employer] [address] [id number] RBC Auto #/vol (Bld) 4.72 {x10E6/uL} Normal 3.80-5.10 [facility] Work Phone: WBC #/vol (Bld) 5.1 {x10E3/uL} Normal 4.0-10.5 [facility]: Comment on above: PERFORMED BY: [employer] [address] [id number] WBC Auto #/vol (Bld) 5.1 {x10E3/uL} Normal 4.0-10.5 [facility] Work Phone: Calcitriol(1,25 di-OH Vit D) Ordered By: Shotgun [employer] Repr[employer]ing Unit Operator on 01-08-2009 Calcitriol mass conc 70.6 pg/mL Abnormal 15.9-55.6 [facility] Work Phone: Comment on above: PERFORMED BY: [employer] [address] [id number] Calcium, SerumOrdered By: [employer] stem [employer] Scm Consultant on 01-08-2009 Calcium mass conc 9.9 mg/dL Normal 8.5-10.6 [facility] Internal Medicine Work Phone: Comment on above: PERFORMED BY: [employer] [address] [id number] Creatinine, SerumOrdered By: [employer]gun [employer] Repr[employer]ing Unit Operator on 01-08-2009 Creatinine mass conc 0.96 mg/dL Normal 0.57-1.00 [facility] Work Phone: Comment on above: PERFORMED BY: [employer] [address] [id number] GFR/1.73 sq M predicted among blacks MDRD vol rate/area (S/P/Bld) mL/min/{1.73_m2} Normal Comprehensi ve Internal Medicine Work Phone: Comment on above: Note: Persistent red uction for 3 months or more in an eGFR<60 mL/min/1.73 m2 defines CKD. Patients with eGFR values>/=60 mL/min/1.73 m2 may also have CKD if evidence of persistentproteinuria is present. Additional information may be found [email or web address]. PERFORMED BY: [employer] [address] [id number] GFR/1.73 sq M.predicted MDRD vol rate/area mL/min/{1.73_m2} Normal Comprehensiv e Internal Medicine Work Phone: Comment on above: PERFORMED BY: [employer] [address] [id number] Hepatic Function Panel (7)Or dered By: [employer]ing Unit Operator on 01-08-2009 Albumin mass conc 4.7 g/dL Normal 3.5-5.[address] [facility] Internal Medicine Work Phone: Comment on above: PERFORMED BY: [employer] [address] [id number] ALP enzyme act/vol 72 [iU]/L Normal 25-150 [facility] Internal Medicine Work Phone: Comment on above: PERFORMED BY: [employer] [address] [id number] ALT enzyme act/vol 23 [iU]/L Normal 0-40 [facility] Internal Medicine Work Phone: Comment on above: PERFORMED BY: [employer] [address] [id number] AST enzyme act/vol 19 [iU]/L Normal 0-40 [facility] Internal Medicine Work Phone: Comment on above: PERFORMED BY: [employer] [address] [id number] Bilirubin mass conc 1.1 mg/dL Normal 0.1-1.2 Compr [facility] Internal Medicine Work Phone: Comment on above: PERFORMED BY: [employer] [address] [id number] Bilirubin.direct mass conc 0.28 mg/dL Normal 0.00-0.40 [facility] Work Phone: Comment on above: PERFORMED BY: [employer] [address] [id number] PTH, IntactOrdered By: Syste m [employer] Scm Consultant on 01-08-2009 Parathyrin.intact mass conc 39 pg/mL Normal 15-65 [facility] Work Phone: Comment on above: PERFORMED BY: [employer] [address] [id number] Protein Electro, Random Urin eOrdered By: [employer]gun [employer] Reprinting Unit Operator on 01-08-2009 Albumin/Protein.total Elph mass fraction (U) 39.8 % Normal Comprehen [facility] Internal Medicine Work Phone: Comment on above: PERFORMED BY: [employer] [address] [id number] Alpha 1 globulin/Protein.total Elph mass fraction (U) 5.1 % Normal [facility] Work Phone: Comment on above: PERFORMED BY: [employer] [address] [id number] Alpha 2 globulin/Protein.total Elph mass fraction (U) 15.0 % Normal Comprehen [facility] Internal Medicine Work Phone: Comment on above: PERFORMED BY: [employer] [address] [id number] Beta globulin/Protein.total Elph mass fraction (U) 27.4 % Normal [facility] Work Phone: Comment on above: PERFORMED BY: [employer] [address] [id number] Gamma globulin/Protein.total Elph mass fraction (U) 12.7 % Normal [facility] Internal [facility] Work Phone: Comment on above: PERFORMED BY: [employer] [address] [id number] Laboratory comment Armando (Report) [facility] Normal [facility] Work Phone: Comment on above: Protein electrophore sis scan will follow via computer, mail, orcourier delivery. PERFORMED BY: [employer] [address] [id number] Protein mass conc (U) 21.1 mg/dL Abnormal 0.0-15.0 Com prehensive Internal Medicine Work Phone: Comment on above: PERFORMED BY: [employer] [address] [id number] Protein.monoclonal/Prot ein.total Elph mass fraction (U) Not Observed Normal [facility] Work Phone: Comment on above: PERFORMED BY: [employer] [address] [id number] Protein Electro.,SOrdered By : Shotgun [employer] Reprinting Unit Operator on 01-08-2009 Albumin mass conc 4.5 g/dL Normal 3.2-5.6 Compreh ensive Internal Medicine Work Phone: Comment on above: PERFORMED BY: [employer] [address] [id number] Albumin/Globulin mass ratio 1.5 {ratio} Normal 0.7-2.0 [facility] Work Phone: Comment on above: PERFORMED BY: [employer] [address] [id number] Alpha 1 globulin Elph mass conc 0.2 g/dL Normal 0.1-0.4 [facility] Work Phone: Comment on above: PERFORMED BY: [employer] [address] [id number] Alpha 2 globulin Elph mass conc 0.7 g/dL Normal 0.4-1.2 [facility] Work Phone: Comment on above: PERFORMED BY: [employer] [address] [id number] Beta globulin Elph mass conc 1.0 g/dL Normal 0.6-1.3 [facility] Work Phone: Comment on above: PERFORMED BY: [employer] [address] [id number] Gamma globulin Elph mass conc 1.1 g/dL Normal 0.5-1.6 [facility] Work Phone: Comment on above: PERFORMED BY: [employer] [address] [id number] Globulin Calculated mass conc (S) 3.0 g/dL Normal 2.0-4.5 [facility] Work Phone: Globulin mass conc (S) 3.0 g/dL Normal 2.0-4.5 [facility] Internal Medicine Work Phone: Comment on above: PERFORMED BY: [employer]ars[employer] [address] [id number] Protein mass conc 7.5 g/dL Normal 6.0-8.[address] [facility] Internal Medicine Work Phone: Comment on above: PERFORMED BY: [employer] [address] [id number] Protein.monoclonal Elph mass conc Not Observed Normal [facility] Work Phone: Comment on above: PERFORMED BY: [employer] [address] [id number] Sedimentation Rate-Westergre nOrdered By: Shotgun Shell Reprinting Unit Operator on 01-08-2009 ESR Velocity (Bld) 4 mm/h Normal 0-30 Compre [facility] Internal Medicine Work Phone: Comment on above: PERFORMED BY: [employer] [address] [id number] TSHOrdered By: System Manage r on 01-08-2009 Thyrotropin Qn 0.868 {uIU/mL} Normal 0.450-4.50 0 [facility] Internal Medicine Work Phone: Comment on above: PERFORMED BY: [employer] [address] [id number] Vitamin D, 25-HydroxyOrdered By: Shotgun [employer] Reprinting Unit Operator on 01-08-2009 Calcitriol mass conc 26.0 ng/mL Abnormal 32.0-100.0 Comp [facility] Internal Medicine Work Phone: Comment on above: Recent studies consi nuris the lower limit of 32.0 ng/mL to be athreshold for optimal health.Darian SALDANA. J Nutr. 2004;135(2):317-22. PERFORMED BY: [employer] [address] [id number] DEXA BONE DENSITY STUDY (HP) Ordered By: Shotgun [employer] Reprinting Unit Operator on 12-25-2008 DEXA BONE DENSITY STUDY (HP) See Note Normal [facility] Work Phone: Comment on above: Exam Number: [id number] BONE DENSITOMETRY HISTORYPostmenopausal. TECHNIQUE Bone densitometry of the lumbar spine and left hip was performed. Thebest criteria for evaluation of osteoporosis is the T-value, whichrepresents the comparison of the patient's bone mass to an expectedpeak bone mass. For most patients, the mean T-value of L1 through L4is used to evaluate the lumbar spine. Based on the newest WorldHealth Organization classifications, the hip is evaluated by utilizingthe lower of the T-value of the total hip or the T-value of thefemoral neck. FINDINGSIn this patient, the mean T-value of L1 through L4 is minus 3, whichis in the range of osteoporosis. Digital lateral view for evaluationof vertebral deformity only demonstrates slight loss of height of T9.Vertebral bodies above T9 are not adequately visualized. The T-valueof the left femoral neck is minus 3, which is in the range ofosteoporosis. The T-value of the total hip is minus 2.4, which is atthe low end of the range of osteopenia. Bone mineral density ismeasured at 0.8% less than in 2002. T-value of the right femoral neckis minus 3, which is in the range of osteoporosis. T-value of thetotal hip is minus 2.2, which is in the range of osteopenia. IMPRESSIONThere is osteoporosis of the lumbar spine and both hips. Reported By: ELENA CHACKO M.D. Exam Number: [id number] MAMMOGRAM, BILATERAL SCREENING DIGITAL AND CAD HISTORYRoutine screening. Full field digital images were obtained in mediolateral oblique andcraniocaudal projections. CAD images were reviewed. The current study is compared to the examinations of January 29, 2004, andJuly 18, 2005. There is moderately dense fibroglandular parenchyma present. There isno skin thickening or retraction, architectural distortion, or clusterof suspicious microcalcifications. There is no dominant mass orsignificant interval change seen. If there is no suspicious palpableabnormality, followup mammogram in 1 year is recommended. IMPRESSIONThere is no radiographic evidence of malignancy identified. FINAL ASSESSMENTBIRADS category 1 - Negative. A letter regarding these results has been sent to the patient. This interpretation was rendered by a radiologist certified under theMammography Quality Standards Act of 1992 (MQSA). The mammograms werealso examined with computer-aided detection software (ImageLocaller.). Reported By: ELENA CHACKO M.D. LIPID PANEL ([id number])Ordered B y: Patt Jones on 12-03-2008 Cholesterol in HDL mass conc 51 mg/dL Normal [facility] Work Phone: Comment on above: According to ATP-III Guidelines, HDL-C >59 mg/dL is considered anegative risk factor for CHD. PATIENT WAS FASTINGC linical Information: ADD DRAW FEE [id number] ADD J [id number] PERFORMED BY: [address] [facility] [id number] Cholesterol in LDL mass conc 169 mg/dL Abnormal 0-99 [facility] Work Phone: Comment on above: PATIENT WAS FASTINGC linical Information: ADD DRAW FEE [id number] ADD J [id number] PERFORMED BY: [address] [facility]aterViViFiAt[facility] [id number] Cholesterol in LDL/Cholesterol in HDL mass ratio 3.3 {ratio_units} Abnormal 0.0-3.2 [facility] Work Phone: Comment on above: PATIENT WAS FASTINGC linical Information: ADD DRAW FEE [id number] ADD J 12089 PERFORMED BY: [facility] [id number] Cholesterol in LDL/Cholesterol in HDL mass ratio SPRCS Normal [facility] Work Phone: Comment on above: If initial LDL-manpreet sterol result is >100 mg/dL, assess forrisk factors. PATIENT WAS FASTINGC linical Information: ADD DRAW FEE [id number] ADD J 48362 PERFORMED BY: [employer] Realty[employer]6370 Slater [facility] [id number] Cholesterol in VLDL mass conc 22 mg/dL Normal 5-40 [facility] Work Phone: Comment on above: PATIENT WAS FASTINGC linical Information: ADD DRAW FEE [id number] ADD J 07690 PERFORMED BY: [employer] [id number] Slater [facility]At[facility] [id number] Cholesterol mass conc 242 mg/dL Abnormal 100-199 Com prehensive Internal Medicine Work Phone: Comment on above: PATIENT WAS FASTINGC linical Information: ADD DRAW FEE [id number] ADD J 14260 PERFORMED BY: [employer] [id number] Slater [facility]At[facility] [id number] Triglyceride mass conc 111 mg/dL Normal 0-149 Co mprehensive Internal Medicine Work Phone: Comment on above: PATIENT WAS FASTINGC linical Information: ADD DRAW FEE [id number] ADD J [id number] PERFORMED BY: [employer] [id number] [facility] [id number] Vital Signs Date Time Vital Sign Value Performing Clinician Facility 04-02-2025 18:00-0400 Body temperature 97.5 [degF] Dr. Patt Jones DO Work Phone: [facility] 04-02-2025 18:00-0400 Diastolic blood pressure 77 mm[Hg] Dr. Patt Jones DO Work Phone: [facility] 04-02-2025 18:00-0400 Heart rate 80 /min Dr. Patt Jones DO Work Phone: [facility] 04-02-2025 18:00-0400 Respiratory rate 18 /min Dr. Patt Jones DO Work Phone: [facility] 04-02-2025 18:00-0400 SaO2% (BldA) [Mass fraction] 98 % Dr. Patt Jones DO Work Phone: [facility] 04-02-2025 18:00-0400 Systolic blood pressure 154 mm[Hg] Dr. Patt Jones DO Work Phone: [facility] 04-02-2025 16:16-0400 Body mass index (BMI) [Ratio] 33.3 kg/m2 Dr. Patt Jones DO Work Phone: [facility] 04-02-2025 16:16-0400 Body weight [address] Patt Jones DO Work Phone: [facility] 04-02-2025 14:04-0400 Body height 149.[address] Patt Jones DO Work Phone: [facility] 03-21-2025 11:22-0400 Body temperature 97.8 [degF] Dr. Patt Jones DO Work Phone: [facility] 03-21-2025 11:22-0400 Diastolic blood pressure 70 mm[Hg] Dr. Patt Jones DO Work Phone: [facility] 03-21-2025 11:22-0400 Heart rate 79 /min Dr. Patt Jones DO Work Phone: [facility] 03-21-2025 11:22-0400 Respiratory rate 16 /min Dr. Patt Jones DO Work Phone: [facility] 03-21-2025 11:22-0400 SaO2% (BldA) [Mass fraction] 98 % Dr. Patt Jones DO Work Phone: [facility] 03-21-2025 11:22-0400 Systolic blood pressure 130 mm[Hg] Dr. Patt Jones DO Work Phone: [facility] 03-10-2025 11:22-0400 Body temperature 98.1 [degF] Dr. Patt Jones DO Work Phone: [facility] 03-10-2025 11:22-0400 Diastolic blood pressure 85 mm[Hg] Dr. Patt Jones DO Work Phone: [facility] 03-10-2025 11:22-0400 Heart rate 71 /min Dr. Patt Jones DO Work Phone: [facility] 03-10-2025 11:22-0400 Respiratory rate 16 /min Dr. Patt Jones DO Work Phone: [facility] 03-10-2025 11:22-0400 SaO2% (BldA) [Mass fraction] 98 % Dr. Patt Jones DO Work Phone: [facility] 03-10-2025 11:22-0400 Systolic blood pressure 125 mm[Hg] Dr. Patt Jones DO Work Phone: [facility] 01-12-2025 16:28-0400 Body temperature 97.3 [degF] Dr. Patt Jones DO Work Phone: [facility] 01-12-2025 16:28-0400 Diastolic blood pressure 86 mm[Hg] Dr. Patt Jones DO Work Phone: [facility] 01-12-2025 16:28-0400 Heart rate 73 /min Dr. Patt Jones DO Work Phone: [facility] 01-12-2025 16:28-0400 Respiratory rate 17 /min Dr. Patt Jones DO Work Phone: [facility] 01-12-2025 16:28-0400 SaO2% (BldA) [Mass fraction] 97 % Dr. Patt Jones DO Work Phone: [facility] 01-12-2025 16:28-0400 Systolic blood pressure 177 mm[Hg] Dr. Patt Jones DO Work Phone: [facility] 01-12-2025 14:07-0400 Body mass index (BMI) [Ratio] 32.1 kg/m2 Dr. Patt Jones DO Work Phone: [facility] 01-12-2025 14:07-0400 Body weight 72.[address] Patt Jones DO Work Phone: [facility] 01-12-2025 14:05-0400 Body height 149.[address] Patt Jones DO Work Phone: [facility] 08-24-2024 08:04-0500 Body temperature 98.1 [degF] Dr. Patt Jones DO Work Phone: [facility] 08-24-2024 08:04-0500 Diastolic blood pressure 70 mm[Hg] Dr. Patt Jones DO Work Phone: [facility] 08-24-2024 08:04-0500 Heart rate 77 /min Dr. Patt Jones DO Work Phone: [facility] 08-24-2024 08:04-0500 Respiratory rate 16 /min Dr. Patt Jones DO Work Phone: [facility] 08-24-2024 08:04-0500 SaO2% (BldA) [Mass fraction] 97 % Dr. Patt Jones DO Work Phone: [facility] 08-24-2024 08:04-0500 Systolic blood pressure 149 mm[Hg] Dr. Patt Jones DO Work Phone: [facility] 08-21-2024 13:08-0500 Body height 149.[address] Patt Jones DO Work Phone: [facility] 08-21-2024 13:08-0500 Body weight 75.[address] Patt Jones DO Work Phone: [facility] 08-20-2024 10:00-0500 Body mass index (BMI) [Ratio] 33.5 kg/m2 Dr. Patt Jones DO Work Phone: [facility] 08-05-2024 13:00-0500 Body temperature 98.1 [degF] Dr. Patt Jones DO Work Phone: [facility] 08-05-2024 13:00-0500 Diastolic blood pressure 71 mm[Hg] Dr. Patt Jones DO Work Phone: [facility] 08-05-2024 13:00-0500 Heart rate 95 /min Dr. Patt Jones DO Work Phone: [facility] 08-05-2024 13:00-0500 Respiratory rate 16 /min Dr. Patt Jones DO Work Phone: [facility] 08-05-2024 13:00-0500 SaO2% (BldA) [Mass fraction] 100 % Dr. Patt Jones DO Work Phone: [facility] 08-05-2024 13:00-0500 Systolic blood pressure 148 mm[Hg] Dr. Patt Jones DO Work Phone: [facility] 08-02-2024 13:41-0500 Body weight 73.[address] Patt Jones DO Work Phone: [facility] 08-02-2024 04:30-0500 Body mass index (BMI) [Ratio] 32.7 kg/m2 Dr. Patt Jones DO Work Phone: [facility] 06-03-2023 15:41-0400 Body height 149.[address] Patt Jones Work Phone: [facility] 06-03-2023 15:41-0400 Body mass index (BMI) [Ratio] 37.3 kg/m2 Dr. Patt Jones Work Phone: [facility] 06-03-2023 15:41-0400 Body temperature 97.6 [degF] Dr. Patt Jones Work Phone: [facility] 06-03-2023 15:41-0400 Body weight 83.[address] Patt Jones Work Phone: [facility] 06-03-2023 15:41-0400 Diastolic blood pressure 97 mm[Hg] Dr. Patt Jones Work Phone: [facility] 06-03-2023 15:41-0400 Heart rate 66 /min Dr. Patt Jones Work Phone: [facility] 06-03-2023 15:41-0400 Respiratory rate 14 /min Dr. Patt Jones Work Phone: [facility] 06-03-2023 15:41-0400 SaO2% (BldA) [Mass fraction] 99 % Dr. Patt Jones Work Phone: [facility] 06-03-2023 15:41-0400 Systolic blood pressure 134 mm[Hg] Dr. Patt Joens Work Phone: [facility] 04-18-2023 15:51-0400 Diastolic blood pressure 62 mm[Hg] Dr. Patt Jones Work Phone: [facility] 04-18-2023 15:51-0400 Heart rate 78 /min Dr. Patt Jones Work Phone: [facility] 04-18-2023 15:51-0400 Respiratory rate 18 /min Dr. Patt Jones Work Phone: [facility] 04-18-2023 15:51-0400 SaO2% (BldA) [Mass fraction] 99 % Dr. Patt Jones Work Phone: [facility] 04-18-2023 15:51-0400 Systolic blood pressure 159 mm[Hg] Dr. Patt Jones Work Phone: [facility] 04-18-2023 13:25-0400 Body mass index (BMI) [Ratio] 39.5 kg/m2 Dr. Patt Jones Work Phone: [facility] 04-18-2023 13:25-0400 Body weight 85.[address] Patt Jones Work Phone: [facility] 04-18-2023 12:33-0400 Body height 147.[address] Patt Jones Work Phone: [facility] 04-18-2023 12:33-0400 Body temperature 98 [degF] Dr. Patt Jones Work Phone: [facility] 11-21-2022 01:14-0400 Body height 147.32 cm [facility] 11-21-2022 01:14-0400 Body mass index (BMI) [Ratio] 38.8 kg/m2 [facility] 11-21-2022 01:14-0400 Body temperature 97.4 [degF] [facility] 11-21-2022 01:14-0400 Body weight 84.3 kg [facility] 11-21-2022 01:14-0400 Diastolic blood pressure 84 mm[Hg] [facility] 11-21-2022 01:14-0400 Heart rate 81 /min [facility] 11-21-2022 01:14-0400 Respiratory rate 16 /min [facility] 11-21-2022 01:14-0400 SaO2% (BldA) [Mass fraction] 98 % [facility] 11-21-2022 01:14-0400 Systolic blood pressure 174 mm[Hg] [facility] 01-26-2022 11:20-0400 Body height 149.86 cm Stephanie Duke [facility]; [facility] Work Phone: 01-26-2022 11:20-0400 Body mass index (BMI) [Ratio] 35.17 kg/m2 Stephanie Duke [facility]; [facility] Work Phone: 01-26-2022 11:20-0400 Body surface area Derived from formula 1.74 m2 Stephanie Duke [facility]; [facility] Work Phone: 01-26-2022 11:20-0400 Body temperature 97.3 [degF] Stephanie Duke [facility]; [facility] Work Phone: Comment on above: Method: Infrared 01-26-2022 11:20-0400 Body weight 78.98 kg Stephanie Duke [facility]; [facility] Work Phone: 01-26-2022 11:20-0400 Diastolic blood pressure 76 mm[Hg] Stephanie Duke [facility]; [facility] Work Phone: Comment on above: Patient Position: Sitting; Cuff Location : Left Arm; Cuff Size: Standard 01-26-2022 11:20-0400 Heart rate 71 /min Stephanie Duke [facility]; [facility] Work Phone: Comment on above: Pattern: Regular 01-26-2022 11:20-0400 Respiratory rate 16 /min Stephanie Duke [facility]; [facility] Work Phone: Comment on above: Pattern: Unlabored 01-26-2022 11:20-0400 SaO2% (BldA) [Mass fraction] 97 % Stephanie Duke [facility]; [facility] Work Phone: Comment on above: Room air 01-26-2022 11:20-0400 Systolic blood pressure 134 mm[Hg] Stephanie Duke [facility]; [facility] Work Phone: Comment on above: Patient Position: Sitting; Cuff Location : Left Arm; Cuff Size: Standard 01-19-2022 13:56-0400 Body height 149.[address] Patt Jones Work Phone: [facility] Work Phone: 01-19-2022 13:56-0400 Body mass index (BMI) [Ratio] 34.7 kg/m2 Dr. Patt Jones Work Phone: [facility] Work Phone: 01-19-2022 13:56-0400 Body weight 78.[address] Patt Jones Work Phone: [facility] Work Phone: 07-02-2021 13:06-0400 Body height 149.86 cm Kimberli Leal LPN [facility]; [facility] Work Phone: 07-02-2021 13:06-0400 Body mass index (BMI) [Ratio] 36.78 kg/m2 Kimberli Leal [employer] [facility]; [facility] Work Phone: 07-02-2021 13:06-0400 Body surface area Derived from formula 1.77 m2 Kimberli Terryrb [employer] [facility]; [facility] Work Phone: 07-02-2021 13:06-0400 Body temperature 97.7 [degF] Kimberli Terryrb [employer] [facility]; [facility] Work Phone: 07-02-2021 13:06-0400 Body weight 82.61 kg Kimberli Slarb [employer] [facility]; [facility] Work Phone: 07-02-2021 13:06-0400 Diastolic blood pressure 78 mm[Hg] Kimberli Terryrb [employer] [facility]; [facility] Work Phone: Comment on above: Patient Position: Sitting; Cuff Location : Left Arm; Cuff Size: Standard 07-02-2021 13:06-0400 Heart rate 75 /min Kimberli Terryrb [employer] [facility]; [facility] Work Phone: Comment on above: Pattern: Regular 07-02-2021 13:06-0400 Respiratory rate 14 /min Kimberli Mararb [employer] [facility]; [facility] Work Phone: Comment on above: Pattern: Unlabored 07-02-2021 13:06-0400 SaO2% (BldA) [Mass fraction] 98 % Kimberli Slarb [employer] [facility]; [facility] Work Phone: Comment on above: Room air 07-02-2021 13:06-0400 Systolic blood pressure 142 mm[Hg] Kimberli Slarb [employer]NAL [employer] [facility]; [facility] Work Phone: Comment on above: Patient Position: Sitting; Cuff Location : Left Arm; Cuff Size: Standard 03-26-2021 10:47-0400 Body height 149.86 cm Stephanie Gravius [facility]; [facility] Work Phone: 03-26-2021 10:47-0400 Body mass index (BMI) [Ratio] 37.17 kg/m2 Stephanie Duke [facility]; [facility] Work Phone: 03-26-2021 10:47-0400 Body surface area Derived from formula 1.78 m2 Stephanie Duke [facility]; [facility] Work Phone: 03-26-2021 10:47-0400 Body temperature 97.3 [degF] Stephanie Duke [facility]; [facility] Work Phone: Comment on above: Method: Infrared 03-26-2021 10:47-0400 Body weight 83.49 kg Stephanie Duke [facility]; [facility] Work Phone: 03-26-2021 10:47-0400 Diastolic blood pressure 80 mm[Hg] Stephanie Duke [facility]; [facility] Work Phone: Comment on above: Patient Position: Sitting; Cuff Location : Left Arm; Cuff Size: Standard 03-26-2021 10:47-0400 Heart rate 66 /min Stephanie Duke [facility]; [facility] Work Phone: Comment on above: Pattern: Regular 03-26-2021 10:47-0400 Respiratory rate 18 /min Stephanie Duke [facility]; [facility] Work Phone: Comment on above: Pattern: Unlabored 03-26-2021 10:47-0400 SaO2% (BldA) [Mass fraction] 99 % Stephanie Duke [facility]; [facility] Work Phone: Comment on above: Room air 03-26-2021 10:47-0400 Systolic blood pressure 132 mm[Hg] Stephanie Duke [facility]; [facility] Work Phone: Comment on above: Patient Position: Sitting; Cuff Location : Left Arm; Cuff Size: Standard 03-11-2021 08:21-0400 Body height 149.86 cm [facility]; [facility] Work Phone: 03-11-2021 08:21-0400 Body mass index (BMI) [Ratio] 34.95 kg/m2 Sakina [facility]; [facility] Work Phone: 03-11-2021 08:21-0400 Body surface area Derived from formula 1.73 m2 Sakina [facility]; [facility] Work Phone: 03-11-2021 08:21-0400 Body weight 78.5 kg Sakina [facility]; [facility] Work Phone: 02-23-2021 08:06-0400 Body height 149.86 cm Andre Bernardo [facility]; [facility] Work Phone: 02-23-2021 08:06-0400 Body mass index (BMI) [Ratio] 34.95 kg/m2 Andre Bernardo [facility]; [facility] Work Phone: 02-23-2021 08:06-0400 Body surface area Derived from formula 1.73 m2 Andre Az [facility]; [facility] Work Phone: 02-23-2021 08:06-0400 Body weight 78.5 kg Andre Bernardo [facility]; [facility] Work Phone: 12-21-2020 08:17-0400 Body height 149.86 cm Kimberli Elvis [facility]; [facility] Work Phone: Comment on above: pt did not report 12-21-2020 08:17-0400 Body mass index (BMI) [Ratio] 34.95 kg/m2 Kimberli Slarb [employer]NAL [employer] [facility]; [facility] Work Phone: Comment on above: pt did not report 12-21-2020 08:17-0400 Body surface area Derived from formula 1.73 m2 Kimberli Slarb [employer]NAL [employer] [facility]; [facility] Work Phone: Comment on above: pt did not report 12-21-2020 08:17-0400 Body weight 78.5 kg Kimberli Slarb [employer]NAL [employer] [facility]; [facility] Work Phone: Comment on above: pt did not report 12-11-2020 11:32-0400 BMI (Body Mass Index) 34.95 kg/m2 Andre Bernardo LPN Comprehen [facility]ive [facility]; [facility] Work Phone: 12-11-2020 11:32-0400 Body Temperature 97.3 [degF] Andre Bernardo LPN [facility]; [facility] Work Phone: Comment on above: Method: Infrared 12-11-2020 11:32-0400 Body weight 78.5 kg Andre Bernardo LPN [facility]; [facility] Work Phone: 12-11-2020 11:32-0400 BP Diastolic 82 mm[Hg] Andre Bernardo LPN [facility]; [facility] Work Phone: Comment on above: Patient Position: Sitting; Cuff Location : Left Arm; Cuff Size: Standard 12-11-2020 11:32-0400 BP Systolic 140 mm[Hg] Andre Bernardo LPN [facility]; [facility] Work Phone: Comment on above: Patient Position: Sitting; Cuff Location : Left Arm; Cuff Size: Standard 12-11-2020 11:32-0400 BSA (Body Surface Area) 1.73 m2 Andre Bernardo LPN [facility]; [facility] Work Phone: 12-11-2020 11:32-0400 Height 149.86 cm Andre Bernardo LPN [facility]; [facility] Work Phone: 12-11-2020 11:32-0400 Pulse (Heart Rate) 100 /min Andre Bernardo LPN Comprehensiv e [facility]; [facility] Work Phone: Comment on above: Pattern: Regular 12-11-2020 11:32-0400 Pulse Oximetry 98 % Patt Jones [facility]; [facility] Work Phone: Comment on above: Room air 12-11-2020 11:32-0400 Respiratory Rate 16 /min Andre Bernardo LPN [facility]; [facility] Work Phone: Comment on above: Pattern: Unlabored 12-11-2020 11:32-0400 SaO2% (BldA) [Mass fraction] 98 % Andre Bernardo [facility]; [facility] Work Phone: Comment on above: Room air 12-04-2020 10:46-0400 BMI (Body Mass Index) 34.95 kg/m2 Andre Az [facility]; [facility] Work Phone: 12-04-2020 10:46-0400 Body weight 78.5 kg Andre Bernardo [facility]; [facility] Work Phone: 12-04-2020 10:46-0400 BSA (Body Surface Area) 1.73 m2 Andre Bernardo [facility]; [facility] Work Phone: 12-04-2020 10:46-0400 Height 149.86 cm Andre Bernardo [facility]; [facility] Work Phone: 11-20-2020 09:02-0400 BMI (Body Mass Index) 34.95 kg/m2 [facility]hen [facility]; [facility] Work Phone: 11-20-2020 09:02-0400 Body weight 78.5 kg [facility]; [facility] Work Phone: 11-20-2020 09:02-0400 BSA (Body Surface Area) 1.73 m2 [facility]; [facility] Work Phone: 11-20-2020 09:02-0400 Height 149.86 cm [facility]; [facility] Work Phone: 05-01-2020 10:06-0400 BMI (Body Mass Index) 34.95 kg/m2 [facility] Work Phone: 05-01-2020 10:06-0400 Body Temperature 97.1 [degF] [facility] Work Phone: Comment on above: Method: Thermal Scan 05-01-2020 10:06-0400 Body weight 78.5 kg Sakina Kelsey [facility] Work Phone: 05-01-2020 10:06-0400 BP Diastolic 60 mm[Hg] [facility] Work Phone: Comment on above: Patient Position: Sitting; Cuff Location : Left Arm; Cuff Size: Standard 05-01-2020 10:06-0400 BP Systolic 120 mm[Hg] [facility] Work Phone: Comment on above: Patient Position: Sitting; Cuff Location : Left Arm; Cuff Size: Standard 05-01-2020 [id number] BSA (Body Surface Area) 1.73 m2 [facility] Work Phone: 05-01-2020 10:06-0400 Height 149.86 cm [facility] Work Phone: 05-01-2020 10:06-0400 Pulse (Heart Rate) 78 /min Sakinashelly Kelsey [facility] Comprehensiv e Internal Medicine Work Phone: Comment on above: Pattern: Regular 05-01-2020 10:06-0400 Pulse Oximetry 97 % Patt Jones [facility] Work Phone: Comment on above: Room air 05-01-2020 10:06-0400 Respiratory Rate 16 /min [facility] Work Phone: Comment on above: Pattern: Unlabored 05-01-2020 10:06-0400 SaO2% (BldA) [Mass fraction] 97 % [facility]; [facility] Work Phone: Comment on above: Room air 02-12-2020 14:19-0400 BMI (Body Mass Index) 38.83 kg/m2 Stephanie Duke [facility] Work Phone: 02-12-2020 14:19-0400 Body Temperature 97.7 [degF] Stephanie Duke [facility] Work Phone: Comment on above: Method: Temporal 02-12-2020 14:19-0400 Body weight 87.2 kg Stephanie Duke [facility] Work Phone: 02-12-2020 14:19-0400 BP Diastolic 74 mm[Hg] Stephanie Duke [facility] Work Phone: Comment on above: Patient Position: Sitting; Cuff Location : Left Arm; Cuff Size: Standard 02-12-2020 14:19-0400 BP Systolic 162 mm[Hg] Stephanie Duke [facility] Work Phone: Comment on above: Patient Position: Sitting; Cuff Location : Left Arm; Cuff Size: Standard 02-12-2020 14:190400 BSA (Body Surface Area) 1.81 m2 Stephanie Duke [facility] Work Phone: 02-12-2020 14:19-0400 Height 149.86 cm Stephanie Duke [facility] Work Phone: 02-12-2020 14:19-0400 Pulse (Heart Rate) 82 /min Stephanie Duke [facility] Work Phone: Comment on above: Pattern: Regular 02-12-2020 14:19-0400 Pulse Oximetry 95 % Patt Robert [facility] Work Phone: Comment on above: Room air 02-12-2020 14:19-0400 Respiratory Rate 18 /min Stephanie Duke [facility] Work Phone: Comment on above: Pattern: Unlabored 02-12-2020 14:19-0400 SaO2% (BldA) [Mass fraction] 95 % Stephanie Duke [facility]; [facility] Work Phone: Comment on above: Room air 07-06-2018 07:37-0400 BMI (Body Mass Index) 38.83 kg/m2 Stephanie Duke [facility] Work Phone: 07-06-2018 07:37-0400 Body Temperature 97.4 [degF] Stephanie Duke [facility] Work Phone: Comment on above: Method: Temporal 07-06-2018 07:37-0400 Body weight 87.2 kg Stephanie Duke [employer] [facility] Work Phone: 07-06-2018 07:37-0400 BP Diastolic 72 mm[Hg] Stephanie Duke [facility] Work Phone: Comment on above: Patient Position: Sitting; Cuff Location : Left Arm; Cuff Size: Standard 07-06-2018 07:37-0400 BP Systolic 142 mm[Hg] Stephaine Duke [facility] Work Phone: Comment on above: Patient Position: Sitting; Cuff Location : Left Arm; Cuff Size: Standard 07-06-2018 07:37-0400 BSA (Body Surface Area) 1.81 m2 Stephanie Duke [facility] Work Phone: 07-06-2018 07:37-0400 Height 149.86 cm Stephanie Duke [facility] Work Phone: 07-06-2018 07:37-0400 Pulse (Heart Rate) 77 /min Stephanie Duke [facility] Work Phone: Comment on above: Pattern: Regular 07-06-2018 07:37-0400 Pulse Oximetry 97 % Patt Jones [facility] Work Phone: Comment on above: Room air 07-06-2018 07:37-0400 Respiratory Rate 18 /min Stephanie Duke [facility] Work Phone: Comment on above: Pattern: Unlabored 07-06-2018 07:37-0400 SaO2% (BldA) [Mass fraction] 97 % Stephanie Duke [facility]; [facility] Work Phone: Comment on above: Room air 07-06-2018 07:37-0400 Weight 87.2 kg Patt Jones [facility] Work Phone: 05-16-2018 15:10-0400 BMI (Body Mass Index) 39.44 kg/m2 Leighann Carbajal RN [facility] Work Phone: Comment on above: hearing aid rt sideDr. Shellie and had a glaucoma test 05-16-2018 15:10-0400 Body weight 88.57 kg Leighann Carbajal RN [facility] Work Phone: Comment on above: hearing aid rt sideDr. Laudenberger and had a glaucoma test 05-16-2018 15:10-0400 BP Diastolic 88 mm[Hg] Leighann Carbajal RN [facility] Work Phone: Comment on above: Patient Position: Sitting; Cuff Location : Left Arm; Cuff Size: Large hearing aid rt sideD r. Laudenberger and had a glaucoma test 05-16-2018 15:10-0400 BP Systolic 128 mm[Hg] Leighann Carbajal RN [facility] Work Phone: Comment on above: Patient Position: Sitting; Cuff Location : Left Arm; Cuff Size: Large hearing aid rt sideD r. Laudenberger and had a glaucoma test 05-16-2018 15:10-0400 BSA (Body Surface Area) 1.83 m2 Leighann Carbajal RN [facility] Work Phone: Comment on above: hearing aid rt sideDr. Laudenberger and had a glaucoma test 05-16-2018 15:10-0400 Height 149.86 cm Leighann Carbajal RN [facility] Work Phone: Comment on above: hearing aid rt sideDr. Laudenberger and had a glaucoma test 05-16-2018 15:10-0400 Pulse (Heart Rate) 71 /min Leighann Carbajal RN [facility] Work Phone: Comment on above: Pattern: Regular hearing aid rt sideD r. Laudenberger and had a glaucoma test 05-16-2018 15:10-0400 Pulse Oximetry 97 % Patt Jones [facility] Work Phone: Comment on above: Room air hearing aid rt sideD r. Laudenberger and had a glaucoma test 05-16-2018 15:10-0400 Respiratory Rate 18 /min Leighann Carbajal RN [facility] Work Phone: Comment on above: Pattern: Unlabored hearing aid rt sideD r. Laudenberger and had a glaucoma test 05-16-2018 15:10-0400 SaO2% (BldA) [Mass fraction] 97 % Leighann Carbajal RN [facility]; [facility] Work Phone: Comment on above: Room air hearing aid rt sideD delio Hensley and had a glaucoma test 05-16-2018 15:10-0400 Weight 88.57 kg Patt Jones [facility] Work Phone: Comment on above: hearing aid rt sideDr. Hensley and had a glaucoma test 04-27-2018 07:38-0400 BMI (Body Mass Index) 39.26 kg/m2 Leighann Carbajal RN [facility] Work Phone: 04-27-2018 07:38-0400 Body weight 88.17 kg Leighann Carbajal RN [facility] Work Phone: 04-27-2018 07:38-0400 BP Diastolic 96 mm[Hg] Leighann Carbajal RN [facility] Work Phone: Comment on above: Patient Position: Standing; Cuff Locatio n: Left Arm; Cuff Size: Large 04-27-2018 07:38-0400 BP Systolic 138 mm[Hg] Leighann Carbajal RN [facility] Work Phone: Comment on above: Patient Position: Standing; Cuff Locatio n: Left Arm; Cuff Size: Large 04-27-2018 07:38-0400 BSA (Body Surface Area) 1.82 m2 Leighann Carbajal RN [facility] Work Phone: 04-27-2018 07:38-0400 Height 149.86 cm Leighann Carbajal RN [facility] Work Phone: 04-27-2018 07:38-0400 Pulse (Heart Rate) 272 /min Leighann Carbajal RN [facility] Work Phone: Comment on above: Pattern: Regular 04-27-2018 07:38-0400 Pulse Oximetry 97 % Patt Jones [facility] Work Phone: Comment on above: Room air 04-27-2018 07:38-0400 Respiratory Rate 18 /min Leighann Carbajal RN [facility] Work Phone: Comment on above: Pattern: Unlabored 04-27-2018 07:38-0400 SaO2% (BldA) [Mass fraction] 97 % Leighann Carbajal RN [facility]; [facility] Work Phone: Comment on above: Room air 04-27-2018 07:38-0400 Weight 88.17 kg Patt Jones [facility] Work Phone: 03-23-2016 10:51-0400 BMI (Body Mass Index) 37.97 kg/m2 Argenis [facility] Work Phone: 03-23-2016 10:51-0400 Height 149.86 cm [facility] Work Phone: 03-23-2016 10:51-0400 [facility]28 [facility] Work Phone: 01-21-2016 11:25-0400 BMI (Body Mass Index) 38.05 kg/m2 Vane Fall [facility] Work Phone: 01-21-2016 11:25-0400 Body Temperature 98.6 [degF] Vane Juan David [facility] Work Phone: Comment on above: Method: Temporal 01-21-2016 11:25-0400 Body weight 85.45 kg Vane Fall [facility] Work Phone: 01-21-2016 11:25-0400 BP Diastolic 80 mm[Hg] Vane Juan David [facility] Work Phone: Comment on above: Patient Position: Sitting; Cuff Location : Left Arm; Cuff Size: Standard 01-21-2016 11:25-0400 BP Systolic 142 mm[Hg] Vane Juan David [facility] Work Phone: Comment on above: Patient Position: Sitting; Cuff Location : Left Arm; Cuff Size: Standard 01-21-2016 11:25-0400 BSA (Body Surface Area) 1.8 m2 Vane Fall [facility] Work Phone: 01-21-2016 11:25-0400 Height 149.86 cm Vane Fall [facility] Work Phone: 01-21-2016 11:25-0400 Pulse (Heart Rate) 78 /min Vane Fall [facility] Work Phone: Comment on above: Pattern: Regular 01-21-2016 11:25-0400 Pulse Oximetry 98 % Patt Jones [facility] Work Phone: Comment on above: Room air 01-21-2016 11:25-0400 Respiratory Rate 16 /min Vane Fall [facility] Work Phone: Comment on above: Pattern: Unlabored 01-21-2016 11:25-0400 SaO2% (BldA) [Mass fraction] 98 % Vane Fall [facility]; [facility] Work Phone: Comment on above: Room air 01-21-2016 11:25-0400 Weight 85.45 kg Patt Paulinoon [facility] Work Phone: 11-02-2015 09:33-0500 BMI (Body Mass Index) 37.44 kg/m2 Leighann Carbajal RN [facility] Work Phone: 11-02-2015 09:33-0500 Body weight 84.09 kg Leighann Carbajal RN [facility] Work Phone: 11-02-2015 09:33-0500 BP Diastolic 82 mm[Hg] Leighann Carbajal RN [facility] Work Phone: Comment on above: Patient Position: Sitting; Cuff Location : Left Arm; Cuff Size: Standard 11-02-2015 09:33-0500 BP Systolic 162 mm[Hg] Leighann Carbajal RN [facility] Work Phone: Comment on above: Patient Position: Sitting; Cuff Location : Left Arm; Cuff Size: Standard 11-02-2015 09:33-0500 BSA (Body Surface Area) 1.79 m2 Leighann Carbajal RN [facility] Work Phone: 11-02-2015 09:33-0500 Height 149.86 cm Leighann Carbajal RN [facility] Work Phone: 11-02-2015 09:33-0500 Pulse (Heart Rate) 76 /min Leighann Carbajal RN [facility] Work Phone: Comment on above: Pattern: Regular 11-02-2015 09:33-0500 Pulse Oximetry 97 % Patt Jones [facility] Work Phone: Comment on above: Room air 11-02-2015 09:33-0500 Respiratory Rate 18 /min Leighann Carbajal RN [facility] Work Phone: Comment on above: Pattern: Unlabored 11-02-2015 09:33-0500 SaO2% (BldA) [Mass fraction] 97 % Leighann Carbajal RN [facility]; [facility] Work Phone: Comment on above: Room air 11-02-2015 09:33-0500 Weight 84.09 kg Patt Jones [facility] Work Phone: 05-04-2015 09:11-0400 BMI (Body Mass Index) 37.02 kg/m2 Kimberly De Leon RN [facility] Work Phone: 05-04-2015 09:11-0400 Body Temperature 97.4 [degF] Kimberly De Leon RN [facility] Work Phone: Comment on above: Method: Temporal 05-04-2015 09:11-0400 Body weight 83.15 kg Kimberly De Leon RN [facility] Work Phone: 05-04-2015 09:11-0400 BP Diastolic 76 mm[Hg] Kimberly De Leon RN [facility] Work Phone: Comment on above: Patient Position: Sitting; Cuff Location : Left Arm; Cuff Size: Standard 05-04-2015 09:11-0400 BP Systolic 124 mm[Hg] Kimberly De Leon RN [facility] Work Phone: Comment on above: Patient Position: Sitting; Cuff Location : Left Arm; Cuff Size: Standard 05-04-2015 09:11-0400 BSA (Body Surface Area) 1.78 m2 Kimberly De Leon RN [facility] Work Phone: 05-04-2015 09:11-0400 Height 149.86 cm Kimberly De Leon RN [facility] Work Phone: 05-04-2015 09:11-0400 Pulse (Heart Rate) 72 /min Kimberly De Leon RN [facility] Work Phone: Comment on above: Pattern: Regular 05-04-2015 09:11-0400 Pulse Oximetry 98 % Patt oJnes [facility] Work Phone: Comment on above: Room air 05-04-2015 09:11-0400 Respiratory Rate 16 /min Kimberly De Leon RN [facility] Work Phone: Comment on above: Pattern: Unlabored 05-04-2015 09:11-0400 SaO2% (BldA) [Mass fraction] 98 % Kimberly De Leon RN [facility]; [facility] Work Phone: Comment on above: Room air 05-04-2015 09:11-0400 Weight 83.15 kg Patt Paulinoon [facility] Work Phone: 07-19-2013 10:35-0500 BMI (Body Mass Index) 36.82 kg/m2 Leighann Carbajal RN [facility] Work Phone: 07-19-2013 10:35-0500 Body Temperature 98.5 [degF] Leighann Carbajal RN [facility] Work Phone: Comment on above: Method: Oral 07-19-2013 10:35-0500 Body weight 82.7 kg Leighann Carbajal RN [facility] Work Phone: 07-19-2013 10:35-0500 BP Diastolic 82 mm[Hg] Leighann Carbajal RN [facility] Work Phone: Comment on above: Patient Position: Sitting; Cuff Location : Left Arm; Cuff Size: Large 07-19-2013 10:35-0500 BP Systolic 124 mm[Hg] Leighann Carbajal RN [facility] Work Phone: Comment on above: Patient Position: Sitting; Cuff Location : Left Arm; Cuff Size: Large 07-19-2013 10:35-0500 BSA (Body Surface Area) 1.77 m2 Leighann Carbajal RN [facility] Work Phone: 07-19-2013 10:35-0500 Height 149.86 cm Leighann Carbajal RN [facility] Work Phone: 07-19-2013 10:35-0500 Pulse (Heart Rate) 60 /min Leighann Carbajal RN [facility] Work Phone: Comment on above: Pattern: Regular 07-19-2013 10:35-0500 Pulse Oximetry 98 % Patt Jones [facility] Work Phone: Comment on above: Room air 07-19-2013 10:35-0500 Respiratory Rate 20 /min Leighann Carbajal RN [facility] Work Phone: Comment on above: Pattern: Unlabored 07-19-2013 10:35-0500 SaO2% (BldA) [Mass fraction] 98 % Leighann Carbajal RN [facility]; [facility] Work Phone: Comment on above: Room air 07-19-2013 10:35-0500 Weight 82.7 kg Patt Paulinoon [facility] Work Phone: 05-03-2013 11:03-0400 BMI (Body Mass Index) 38.43 kg/m2 Leighann Carbajal RN [facility] Work Phone: 05-03-2013 11:03-0400 Body Temperature 97.6 [degF] Leighann Carbajal RN [facility] Work Phone: Comment on above: Method: Oral 05-03-2013 11:03-0400 Body weight 86.3 kg Leighann Carbajal RN [facility] Work Phone: 05-03-2013 11:03-0400 BP Diastolic 82 mm[Hg] Leighann Carbajal RN [facility] Work Phone: Comment on above: Patient Position: Sitting; Cuff Location : Left Arm; Cuff Size: Large 05-03-2013 11:03-0400 BP Systolic 148 mm[Hg] Leighann Carbajal RN [facility] Work Phone: Comment on above: Patient Position: Sitting; Cuff Location : Left Arm; Cuff Size: Large 05-03-2013 11:03-0400 BSA (Body Surface Area) 1.81 m2 Leighann Carbajal RN [facility] Work Phone: 05-03-2013 11:03-0400 Height 149.86 cm Leighann Carbajal RN [facility] Work Phone: 05-03-2013 11:03-0400 Pulse (Heart Rate) 80 /min Leighann Carbajal RN [facility] Work Phone: Comment on above: Pattern: Regular 05-03-2013 11:03-0400 Respiratory Rate 20 /min Leighann Carbajal RN [facility] Work Phone: Comment on above: Pattern: Unlabored 05-03-2013 11:03-0400 Weight 86.3 kg Patt Jones [facility] Work Phone: 01-17-2013 10:15-0400 BMI (Body Mass Index) 39.01 kg/m2 Leighann Carbajal RN [facility] Work Phone: 01-17-2013 10:15-0400 Body Temperature 98.6 [degF] Leighann Carbajal RN [facility] Work Phone: Comment on above: Method: Oral 01-17-2013 10:15-0400 Body weight 87.6 kg Leighann Carbajal RN [facility] Work Phone: 01-17-2013 10:15-0400 BP Diastolic 82 mm[Hg] Leighann Carbajal RN [facility] Work Phone: Comment on above: Patient Position: Sitting; Cuff Location : Left Arm; Cuff Size: Large 01-17-2013 10:15-0400 BP Systolic 140 mm[Hg] Leighann Carbajal RN [facility] Work Phone: Comment on above: Patient Position: Sitting; Cuff Location : Left Arm; Cuff Size: Large 01-17-2013 10:15-0400 BSA (Body Surface Area) 1.82 m2 Leighann Carbajal RN [facility] Work Phone: 01-17-2013 10:15-0400 Height 149.86 cm Leighann Carbajal RN [facility] Work Phone: 01-17-2013 10:15-0400 Pulse (Heart Rate) 68 /min Leighann Carbajal RN [facility] Work Phone: Comment on above: Pattern: Regular 01-17-2013 10:15-0400 Respiratory Rate 18 /min Leighann Carbajal RN [facility] Work Phone: Comment on above: Pattern: Unlabored 01-17-2013 10:15-0400 Weight 87.6 kg Patt Jones [facility] Work Phone: 12-19-2012 10:44-0400 BMI (Body Mass Index) 39.59 kg/m2 Vane Fall [facility] Work Phone: 12-19-2012 10:44-0400 Body Temperature 98.7 [degF] Vane Fall [facility] Work Phone: Comment on above: Method: Temporal 12-19-2012 10:44-0400 Body weight 88.91 kg Vane Fall [facility] Work Phone: 12-19-2012 10:44-0400 BP Diastolic 84 mm[Hg] Vane Fall [facility] Work Phone: Comment on above: Patient Position: Sitting; Cuff Location : Left Arm; Cuff Size: Standard 12-19-2012 10:44-0400 BP Systolic 130 mm[Hg] Vane Fall [facility] Work Phone: Comment on above: Patient Position: Sitting; Cuff Location : Left Arm; Cuff Size: Standard 12-19-2012 10:44-0400 BSA (Body Surface Area) 1.83 m2 Vane Fall [facility] Work Phone: 12-19-2012 10:44-0400 Height 149.86 cm Vane Fall [facility] Work Phone: 12-19-2012 10:44-0400 Pulse (Heart Rate) 68 /min Vane Fall [facility] Work Phone: Comment on above: Pattern: Regular 12-19-2012 10:44-0400 Respiratory Rate 16 /min Vane Fall [facility] Work Phone: Comment on above: Pattern: Unlabored 12-19-2012 10:44-0400 Weight 88.91 kg Patt Jones [facility] Work Phone: 06-15-2012 09:19-0400 BMI (Body Mass Index) 41.61 kg/m2 Leighann Carbajal RN [facility] Work Phone: 06-15-2012 09:19-0400 Body Temperature 96.7 [degF] Leighann Carbajal RN [facility] Work Phone: Comment on above: Method: Oral 06-15-2012 09:19-0400 Body weight 93.44 kg Leighann Carbajal RN [facility] Work Phone: 06-15-2012 09:19-0400 BP Diastolic 92 mm[Hg] Leighann Carbajal RN [facility] Work Phone: Comment on above: Patient Position: Sitting; Cuff Location : Left Arm; Cuff Size: Large 06-15-2012 09:19-0400 BP Systolic 142 mm[Hg] Leighann Carbajal RN [facility] Work Phone: Comment on above: Patient Position: Sitting; Cuff Location : Left Arm; Cuff Size: Large 06-15-2012 09:190400 BSA (Body Surface Area) 1.87 m2 Leighann Carbajal RN [facility] Work Phone: 06-15-2012 09:19-0400 Height 149.86 cm Leighann Carbajal RN [facility] Work Phone: 06-15-2012 09:19-0400 Pulse (Heart Rate) 60 /min Leighann Carbajal RN [facility] Work Phone: Comment on above: Pattern: Regular 06-15-2012 09:19-0400 Respiratory Rate 16 /min Leighann Carbajal RN [facility] Work Phone: Comment on above: Pattern: Unlabored 06-15-2012 09:19-0400 Weight 93.44 kg Patt Joens [facility] Work Phone: 03-08-2012 08:37-0400 BMI (Body Mass Index) 40.41 kg/m2 Leighann Carbajal RN [facility] Work Phone: 03-08-2012 08:37-0400 Body weight 90.75 kg Leighann Messenger RN [facility] Work Phone: 03-08-2012 08:37-0400 BP Diastolic 92 mm[Hg] Leighann Carbajal RN [facility] Work Phone: Comment on above: Patient Position: Sitting; Cuff Location : Left Arm; Cuff Size: Large 03-08-2012 08:37-0400 BP Systolic 130 mm[Hg] Leighann Carbajal RN [facility] Work Phone: Comment on above: Patient Position: Sitting; Cuff Location : Left Arm; Cuff Size: Large 03-08-2012 08:37-0400 BSA (Body Surface Area) 1.84 m2 Leighann Carbajal RN [facility] Work Phone: 03-08-2012 08:37-0400 Height 149.86 cm Leighann Carbajal RN [facility] Work Phone: 03-08-2012 08:37-0400 Pulse (Heart Rate) 60 /min Leighann Carbajal RN [facility] Work Phone: Comment on above: Pattern: Regular 03-08-2012 08:37-0400 Respiratory Rate 20 /min Leighann Carbajal RN [facility] Work Phone: Comment on above: Pattern: Unlabored 03-08-2012 08:37-0400 Weight 90.75 kg Patt Jones [facility] Work Phone: 01-20-2012 09:28-0400 BMI (Body Mass Index) 40.22 kg/m2 Leighann Carbajal RN [facility] Work Phone: 01-20-2012 09:28-0400 Body weight 90.32 kg Leighann Carbajal RN [facility] Work Phone: 01-20-2012 09:28-0400 BP Diastolic 82 mm[Hg] Leighann Carbajal RN [facility] Work Phone: Comment on above: Patient Position: Sitting; Cuff Location : Left Arm; Cuff Size: Large 01-20-2012 09:28-0400 BP Systolic 122 mm[Hg] Leighann Carbajal RN [facility] Work Phone: Comment on above: Patient Position: Sitting; Cuff Location : Left Arm; Cuff Size: Large 01-20-2012 09:28-0400 BSA (Body Surface Area) 1.84 m2 Leighann Carbajal RN [facility] Work Phone: 01-20-2012 09:28-0400 Height 149.86 cm Leighann Carbajal RN [facility] Work Phone: 01-20-2012 09:28-0400 Pulse (Heart Rate) 64 /min Leighann Carbajal RN [facility] Work Phone: Comment on above: Pattern: Regular 01-20-2012 09:28-0400 Respiratory Rate 18 /min Leighann Carbajal RN [facility] Work Phone: Comment on above: Pattern: Unlabored 01-20-2012 09:28-0400 Weight 90.32 kg Patt Jones [facility] Work Phone: 07-15-2011 10:23-0500 BMI (Body Mass Index) 39.26 kg/m2 Kimberly De Leon RN [facility] Work Phone: 07-15-2011 10:23-0500 Body Temperature 97.2 [degF] Kimberly De Leon RN [facility] Work Phone: Comment on above: Method: Oral 07-15-2011 10:23-0500 Body weight 88.18 kg Kimbelry De Leon RN [facility] Work Phone: 07-15-2011 10:23-0500 BP Diastolic 64 mm[Hg] Kimberly De Leon RN [facility] Work Phone: Comment on above: Patient Position: Sitting; Cuff Location : Left Arm; Cuff Size: Standard 07-15-2011 10:23-0500 BP Systolic 102 mm[Hg] Kimberly De Leon RN [facility] Work Phone: Comment on above: Patient Position: Sitting; Cuff Location : Left Arm; Cuff Size: Standard 07-15-2011 10:23-0500 BSA (Body Surface Area) 1.82 m2 Kimberly De Leon RN [facility] Work Phone: 07-15-2011 10:23-0500 Height 149.86 cm Kimberly De Leon RN [facility] Work Phone: 07-15-2011 10:23-0500 Pulse (Heart Rate) 62 /min Kimberly De Leon RN [facility] Work Phone: Comment on above: Pattern: Regular 07-15-2011 10:23-0500 Respiratory Rate 16 /min Kimberly De Leon RN [facility] Work Phone: Comment on above: Pattern: Unlabored 07-15-2011 10:23-0500 Weight 88.18 kg Patt Jones [facility] Work Phone: 07-01-2011 09:31-0400 BMI (Body Mass Index) 39.26 kg/m2 Kimberly De Leon RN [facility] Work Phone: 07-01-2011 09:31-0400 Body Temperature 96.7 [degF] Kimberly De Leon RN [facility] Work Phone: Comment on above: Method: Oral 07-01-2011 09:31-0400 Body weight 88.18 kg Kimberly De Leon RN [facility] Work Phone: 07-01-2011 09:31-0400 BP Diastolic 74 mm[Hg] Kimberly De Leon RN [facility] Work Phone: Comment on above: Patient Position: Sitting; Cuff Location : Left Arm; Cuff Size: Standard 07-01-2011 09:31-0400 BP Systolic 126 mm[Hg] Kimberly De Leon RN [facility] Work Phone: Comment on above: Patient Position: Sitting; Cuff Location : Left Arm; Cuff Size: Standard 07-01-2011 09:31-0400 BSA (Body Surface Area) 1.82 m2 Kimberly De Leon RN [facility] Work Phone: 07-01-2011 09:31-0400 Height 149.86 cm Kimberly De Leon RN [facility] Work Phone: 07-01-2011 09:31-0400 Pulse (Heart Rate) 66 /min Kimberly De Leon RN [facility] Work Phone: Comment on above: Pattern: Regular 07-01-2011 09:31-0400 Respiratory Rate 16 /min Kimberly De Leon RN [facility] Work Phone: Comment on above: Pattern: Unlabored 07-01-2011 09:31-0400 Weight 88.18 kg Patt Jones [facility] Work Phone: 05-25-2011 09:49-0400 BMI (Body Mass Index) 39.68 kg/m2 Leighann Carbajal RN [facility] Work Phone: 05-25-2011 09:49-0400 Body Temperature 98.3 [degF] Leighann Carbajal RN [facility] Work Phone: Comment on above: Method: Oral 05-25-2011 09:49-0400 Body weight 89.1 kg Leighann Carbajal RN [facility] Work Phone: 05-25-2011 09:49-0400 BP Diastolic 90 mm[Hg] Leighann Carbajal RN [facility] Work Phone: Comment on above: Patient Position: Sitting; Cuff Location : Left Arm; Cuff Size: Large 05-25-2011 09:49-0400 BP Systolic 126 mm[Hg] Leighann Carbajal RN [facility] Work Phone: Comment on above: Patient Position: Sitting; Cuff Location : Left Arm; Cuff Size: Large 05-25-2011 09:49-0400 BSA (Body Surface Area) 1.83 m2 Leighann Carbajal RN [facility] Work Phone: 05-25-2011 09:49-0400 Height 149.86 cm Leighann Carbajal RN [facility] Work Phone: 05-25-2011 09:49-0400 Pulse (Heart Rate) 68 /min Leighann Carbajal RN [facility] Work Phone: Comment on above: Pattern: Regular 05-25-2011 09:49-0400 Respiratory Rate 18 /min Leighann Carbajal RN [facility] Work Phone: Comment on above: Pattern: Unlabored 05-25-2011 09:49-0400 Weight 89.1 kg Patt Jones [facility] Work Phone: 12-29-2010 10:12-0400 BMI (Body Mass Index) 40.63 kg/m2 Emily Meadows LPN [facility] Work Phone: 12-29-2010 10:12-0400 Body Temperature 97 [degF] Emily Meadows LPN [facility] Work Phone: Comment on above: Method: Oral 12-29-2010 10:12-0400 Body weight 91.26 kg Emily Meadows LPN [facility] Work Phone: 12-29-2010 10:12-0400 BP Diastolic 80 mm[Hg] Emliy Meadows LPN [facility] Work Phone: Comment on above: Patient Position: Sitting; Cuff Location : Left Arm; Cuff Size: Standard 12-29-2010 10:12-0400 BP Systolic 132 mm[Hg] Emily Meadows LPN [facility] Work Phone: Comment on above: Patient Position: Sitting; Cuff Location : Left Arm; Cuff Size: Standard 12-29-2010 10:120400 BSA (Body Surface Area) 1.85 m2 Emily Meadows LPN [facility] Work Phone: 12-29-2010 10:120400 Height 149.86 cm Eimly Meadows LPN [facility] Work Phone: 12-29-2010 10:12-0400 Pulse (Heart Rate) 76 /min Emily Meadows LPN [facility] Work Phone: Comment on above: Pattern: Regular 12-29-2010 10:120400 Pulse Oximetry 95 % Pattgaldino Jones [facility] Work Phone: Comment on above: Room air 12-29-2010 10:12-0400 Respiratory Rate 16 /min Emily Meadows LPN [facility] Work Phone: 12-29-2010 10:12-0400 SaO2% (BldA) [Mass fraction] 95 % Emily Meadows LPN [facility]; [facility] Work Phone: Comment on above: Room air 12-29-2010 10:12-0400 Weight 91.26 kg Patt Jones [facility] Work Phone: 11-30-2010 08:24-0400 BMI (Body Mass Index) 41.25 kg/m2 Leighann Carbajal RN [facility] Work Phone: 11-30-2010 08:24-0400 Body weight 92.65 kg Leighann Carbajal RN [facility] Work Phone: 11-30-2010 08:24-0400 BP Diastolic 82 mm[Hg] Leighann Carbajal RN [facility] Work Phone: Comment on above: Patient Position: Sitting; Cuff Location : Left Arm; Cuff Size: Large 11-30-2010 08:24-0400 BP Systolic 122 mm[Hg] Leighann Carbajal RN [facility] Work Phone: Comment on above: Patient Position: Sitting; Cuff Location : Left Arm; Cuff Size: Large 11-30-2010 08:24-0400 BSA (Body Surface Area) 1.86 m2 Leighann Carbajal RN [facility] Work Phone: 11-30-2010 08:24-0400 Height 149.86 cm Leighann Carbajal RN [facility] Work Phone: 11-30-2010 08:24-0400 Pulse (Heart Rate) 64 /min Leighann Carbajal RN [facility] Work Phone: Comment on above: Pattern: Regular 11-30-2010 08:24-0400 Respiratory Rate 18 /min Leighann Carbajal RN [facility] Work Phone: Comment on above: Pattern: Unlabored 11-30-2010 08:24-0400 Weight 92.65 kg Patt Jones [facility] Work Phone: 09-28-2010 12:05-0500 BMI (Body Mass Index) 40.6 kg/m2 Leighann Carbajal RN [facility] Work Phone: 09-28-2010 12:05-0500 Body weight 91.17 kg Leighann Carbajal RN [facility] Work Phone: 09-28-2010 12:05-0500 BP Diastolic 78 mm[Hg] Leighann Carbajal RN [facility] Work Phone: Comment on above: Patient Position: Sitting; Cuff Location : Left Arm; Cuff Size: Large 09-28-2010 12:05-0500 BP Systolic 122 mm[Hg] Leighann Carbajal RN [facility] Work Phone: Comment on above: Patient Position: Sitting; Cuff Location : Left Arm; Cuff Size: Large 09-28-2010 12:05-0500 BSA (Body Surface Area) 1.85 m2 Leighann Carbajal RN [facility] Work Phone: 09-28-2010 12:05-0500 Height 149.86 cm Leighann Carbajal RN [facility] Work Phone: 09-28-2010 12:05-0500 Pulse (Heart Rate) 64 /min Leihgann Carbajal RN [facility] Work Phone: Comment on above: Pattern: Regular 09-28-2010 12:05-0500 Respiratory Rate 18 /min Leighann Carbajal RN [facility] Work Phone: Comment on above: Pattern: Unlabored 09-28-2010 12:05-0500 Weight 91.17 kg Patt Jones [facility] Work Phone: 08-02-2010 16:41-0500 BMI (Body Mass Index) 40.6 kg/m2 Leighann Carbajal RN [facility] Work Phone: 08-02-2010 16:41-0500 Body weight 91.17 kg Leighann Carbajal RN [facility] Work Phone: 08-02-2010 16:41-0500 BP Diastolic 88 mm[Hg] Leighann Carbajal RN [facility] Work Phone: Comment on above: Patient Position: Sitting; Cuff Location : Left Arm; Cuff Size: Large 08-02-2010 16:41-0500 BP Systolic 122 mm[Hg] Leighann Carbajal RN [facility] Work Phone: Comment on above: Patient Position: Sitting; Cuff Location : Left Arm; Cuff Size: Large 08-02-2010 16:41-0500 BSA (Body Surface Area) 1.85 m2 Leighann Carbajal RN [facility] Work Phone: 08-02-2010 16:41-0500 Height 149.86 cm Leighann Carbajal RN [facility] Work Phone: 08-02-2010 16:41-0500 Pulse (Heart Rate) 88 /min Leighann Carbajal RN [facility] Work Phone: Comment on above: Pattern: Regular 08-02-2010 16:41-0500 Respiratory Rate 20 /min Leighann Carbajal RN [facility] Work Phone: Comment on above: Pattern: Unlabored 08-02-2010 16:41-0500 Weight 91.17 kg Patt Jones [facility] Work Phone: 01-08-2009 09:31-0400 BMI (Body Mass Index) 39.4 kg/m2 Leighann Carbajal RN [facility] Work Phone: 01-08-2009 09:31-0400 Body weight 88.48 kg Leighann Carbajal RN [facility] Work Phone: 01-08-2009 09:31-0400 BP Diastolic 78 mm[Hg] Leighann Carbajal RN [facility] Work Phone: Comment on above: Patient Position: Sitting; Cuff Location : Left Arm; Cuff Size: Large 01-08-2009 09:31-0400 BP Systolic 128 mm[Hg] Leighann Carbajal RN [facility] Work Phone: Comment on above: Patient Position: Sitting; Cuff Location : Left Arm; Cuff Size: Large 01-08-2009 09:31-0400 BSA (Body Surface Area) 1.82 m2 Leighann Carbajal RN [facility] Work Phone: 01-08-2009 09:31-0400 Head Circumference 0 cm Patt Jones [facility] Work Phone: 01-08-2009 09:31-0400 Head Occipital-frontal circumference 0 cm Leighann Carbajal RN [facility]; [facility] Work Phone: 01-08-2009 09:31-0400 Height 149.86 cm Leighann Carbajal RN [facility] Work Phone: 01-08-2009 09:31-0400 Pulse (Heart Rate) 80 /min Leighann Carbajal RN [facility] Work Phone: Comment on above: Pattern: Regular 01-08-2009 09:31-0400 Respiratory Rate 20 /min Leighann Carbajal RN [facility] Work Phone: Comment on above: Pattern: Unlabored 01-08-2009 09:31-0400 Weight 88.48 kg Patt Jones [facility] Work Phone: 12-17-2008 10:40-0400 BMI (Body Mass Index) 40.7 kg/m2 Leighann Carbajal RN [facility] Work Phone: 12-17-2008 10:40-0400 Body weight 91.4 kg Leighann Carbajal RN [facility] Work Phone: 12-17-2008 10:40-0400 BP Diastolic 82 mm[Hg] Leighann Carbajal RN [facility] Work Phone: Comment on above: Patient Position: Sitting; Cuff Location : Left Arm; Cuff Size: Large 12-17-2008 10:40-0400 BP Systolic 142 mm[Hg] Leighann Carbajal RN [facility] Work Phone: Comment on above: Patient Position: Sitting; Cuff Location : Left Arm; Cuff Size: Large 12-17-2008 10:40-0400 BSA (Body Surface Area) 1.85 m2 Leighann Carbajal RN [facility] Work Phone: 12-17-2008 10:40-0400 Head Circumference 0 cm Patt Jones [facility] Work Phone: 12-17-2008 10:40-0400 Head Occipital-frontal circumference 0 cm Leighann Carbajal RN [facility]; [facility] Work Phone: 12-17-2008 10:40-0400 Height 149.86 cm Leighann Carbajal RN [facility] Work Phone: 12-17-2008 10:40-0400 Pulse (Heart Rate) 64 /min Leighann Carbajal RN [facility] Work Phone: Comment on above: Pattern: Regular 12-17-2008 10:40-0400 Respiratory Rate 20 /min Leighann Carbajal RN [facility] Work Phone: Comment on above: Pattern: Unlabored 12-17-2008 10:40-0400 Weight 91.4 kg Patt Jones [facility] Work Phone: 12-08-2008 14:36-0400 BMI (Body Mass Index) 40.39 kg/m2 Patt Jones [facility] Work Phone: 12-08-2008 14:36-0400 Body weight 90.72 kg Patt Jones [facility] Work Phone: 12-08-2008 14:36-0400 BP Diastolic 80 mm[Hg] Patt Jones [facility] Work Phone: Comment on above: Patient Position: Supine; Cuff Location: Left Arm; Cuff Size: Standard 12-08-2008 14:36-0400 BP Systolic 132 mm[Hg] Patt Jones [facility] Work Phone: Comment on above: Patient Position: Supine; Cuff Location: Left Arm; Cuff Size: Standard 12-08-2008 14:36-0400 BSA (Body Surface Area) 1.84 m2 Patt Jones [facility] Work Phone: 12-08-2008 14:36-0400 Head Circumference 0 cm Patt Jones [facility] Work Phone: 12-08-2008 14:36-0400 Head Occipital-frontal circumference 0 cm Patt Jones DO Work Phone: [facility]; [facility] Work Phone: 12-08-2008 14:36-0400 Height 149.86 cm Patt Jones [facility] Work Phone: 12-08-2008 14:36-0400 Pulse (Heart Rate) 60 /min [facility] Work Phone: Comment on above: Pattern: Regular 12-08-2008 14:36-0400 Respiratory Rate 16 /min [facility]att [facility] Work Phone: Comment on above: Pattern: Unlabored 12-08-2008 14:36-0400 Weight 90.72 kg Patt Jones [facility] Work Phone: 12-03-2008 10:18-0400 Body weight 90.72 kg Leighann Carbajal RN [facility] Work Phone: 12-03-2008 10:18-0400 BP Diastolic 78 mm[Hg] Leighann Carbajal RN [facility] Work Phone: Comment on above: Patient Position: Sitting; Cuff Location : Left Arm; Cuff Size: Large 12-03-2008 10:18-0400 BP Systolic 122 mm[Hg] Leighann Carbajal RN [facility] Work Phone: Comment on above: Patient Position: Sitting; Cuff Location : Left Arm; Cuff Size: Large 12-03-2008 10:18-0400 Head Circumference 0 cm Patt Jones [facility] Work Phone: 12-03-2008 10:18-0400 Head Occipital-frontal circumference 0 cm Leighann Carbajal RN [facility]; [facility] Work Phone: 12-03-2008 10:18-0400 Height 0 cm Leighann Carbajal RN [facility] Work Phone: 12-03-2008 10:18-0400 Pulse (Heart Rate) 88 /min Leighann Carbajal RN [facility] Work Phone: Comment on above: Pattern: Regular 12-03-2008 10:18-0400 Respiratory Rate 20 /min Leighann Carbajal RN [facility] Work Phone: Comment on above: Pattern: Unlabored 12-03-2008 10:18-0400 Weight 90.72 kg Patt Paulinoon [facility] Work Phone: 05-30-2008 09:24-0400 Body weight 88.45 kg Leighann Carbajal RN [facility] Work Phone: 05-30-2008 09:24-0400 BP Diastolic 88 mm[Hg] Leighann Carbajal RN [facility] Work Phone: Comment on above: Patient Position: Sitting; Cuff Location : Right Arm; Cuff Size: Large 05-30-2008 09:24-0400 BP Systolic 138 mm[Hg] Leighann Carbajal RN [facility] Work Phone: Comment on above: Patient Position: Sitting; Cuff Location : Right Arm; Cuff Size: Large 05-30-2008 09:24-0400 Head Circumference 0 cm Patt Jones [facility] Work Phone: 05-30-2008 09:24-0400 Head Occipital-frontal circumference 0 cm Leighann Carbajal RN [facility]; [facility] Work Phone: 05-30-2008 09:24-0400 Height 0 cm Leighann Carbajal RN [facility] Work Phone: 05-30-2008 09:24-0400 Pulse (Heart Rate) 88 /min Leighann Carbajal RN [facility] Work Phone: Comment on above: Pattern: Regular 05-30-2008 09:24-0400 Respiratory Rate 20 /min Leighann Carbajal RN [facility] Work Phone: Comment on above: Pattern: Unlabored 05-30-2008 09:24-0400 Weight 88.45 kg Patt Jones [facility] Work Phone: 04-29-2008 09:06-0400 Body weight 88.11 kg Leighann Carbajal RN [facility] Work Phone: 04-29-2008 09:06-0400 BP Diastolic 84 mm[Hg] Leighann Carbajal RN [facility] Work Phone: Comment on above: Patient Position: Sitting; Cuff Location : Left Arm; Cuff Size: Standard 04-29-2008 09:06-0400 BP Systolic 122 mm[Hg] Leighann Carbajal RN [facility] Work Phone: Comment on above: Patient Position: Sitting; Cuff Location : Left Arm; Cuff Size: Standard 04-29-2008 09:06-0400 Head Circumference 0 cm Patt Jones [facility] Work Phone: 04-29-2008 09:06-0400 Head Occipital-frontal circumference 0 cm Leighann Carbajal RN [facility]; [facility] Work Phone: 04-29-2008 09:06-0400 Height 0 cm Leighann Carbajal RN [facility] Work Phone: 04-29-2008 09:06-0400 Pulse (Heart Rate) 64 /min Leighann Carbajal RN [facility] Work Phone: Comment on above: Pattern: Regular 04-29-2008 09:06-0400 Respiratory Rate 20 /min Leighann Carbajal RN [facility] Work Phone: Comment on above: Pattern: Unlabored 04-29-2008 09:06-0400 Weight 88.11 kg Patt [facility] Work Phone: 03-27-2008 09:45-0400 Body weight 89.1 kg Tressa Boyerman [facility] Work Phone: 03-27-2008 09:45-0400 BP Diastolic 92 mm[Hg] Tressa Pomona [facility] Work Phone: Comment on above: Patient Position: Sitting; Cuff Location : Left Arm; Cuff Size: Standard 03-27-2008 09:45-0400 BP Systolic 140 mm[Hg] Tressa Pomona [facility] Work Phone: Comment on above: Patient Position: Sitting; Cuff Location : Left Arm; Cuff Size: Standard 03-27-2008 09:45-0400 Head Circumference 0 cm Patt [facility] Work Phone: 03-27-2008 09:45-0400 Head Occipital-frontal circumference 0 cm Tressa [facility]; [facility] Work Phone: 03-27-2008 09:45-0400 Height 0 cm Tressa [facility] Work Phone: 03-27-2008 09:45-0400 Pulse (Heart Rate) 78 /min Tressa [facility] Work Phone: Comment on above: Pattern: Regular 03-27-2008 09:45-0400 Respiratory Rate 18 /min Tressa [facility] Work Phone: Comment on above: Pattern: Unlabored 03-27-2008 09:45-0400 Weight 89.1 kg Patt Jones [facility] Work Phone: 02-26-2008 09:31-0400 Body weight 90.41 kg Leighann Carbajal RN [facility] Work Phone: 02-26-2008 09:31-0400 BP Diastolic 82 mm[Hg] Leighann Carbajal RN [facility] Work Phone: Comment on above: Patient Position: Sitting; Cuff Location : Left Arm; Cuff Size: Large 02-26-2008 09:31-0400 BP Systolic 136 mm[Hg] Leighann Carbajal RN [facility] Work Phone: Comment on above: Patient Position: Sitting; Cuff Location : Left Arm; Cuff Size: Large 02-26-2008 09:31-0400 Head Circumference 0 cm Patt Jones [facility] Work Phone: 02-26-2008 09:31-0400 Head Occipital-frontal circumference 0 cm Leighann Carbajal RN [facility]; [facility] Work Phone: 02-26-2008 09:31-0400 Height 0 cm Leighann Carbajal RN [facility] Work Phone: 02-26-2008 09:31-0400 Pulse (Heart Rate) 80 /min Leighann Carbajal RN [facility] Work Phone: Comment on above: Pattern: Regular 02-26-2008 09:31-0400 Respiratory Rate 20 /min Leighann Carbajal RN [facility] Work Phone: Comment on above: Pattern: Unlabored 02-26-2008 09:31-0400 Weight 90.41 kg Patt Jones [facility] Work Phone: 01-24-2008 15:02-0400 Body weight 95 kg Leighann Carbajal RN [facility] Work Phone: 01-24-2008 15:02-0400 BP Diastolic 80 mm[Hg] Leighann Carbajal RN [facility] Work Phone: Comment on above: Patient Position: Sitting; Cuff Location : Left Arm; Cuff Size: Large 01-24-2008 15:02-0400 BP Systolic 124 mm[Hg] Leighann Carbajal RN [facility] Work Phone: Comment on above: Patient Position: Sitting; Cuff Location : Left Arm; Cuff Size: Large 01-24-2008 15:02-0400 Head Circumference 0 cm Patt Jones [facility] Work Phone: 01-24-2008 15:02-0400 Head Occipital-frontal circumference 0 cm Leighann Carbajal RN [facility]; [facility] Work Phone: 01-24-2008 15:02-0400 Height 0 cm Leighann Carbajal RN [facility] Work Phone: 01-24-2008 15:02-0400 Pulse (Heart Rate) 84 /min Leighann Carbajal RN [facility] Work Phone: Comment on above: Pattern: Regular 01-24-2008 15:02-0400 Respiratory Rate 20 /min Leighann Carbajal RN [facility] Work Phone: Comment on above: Pattern: Unlabored 01-24-2008 15:02-0400 Weight 95 kg Patt Jones [facility] Work Phone: 10-22-2007 15:39-0500 Body Temperature 97.8 [degF] Patt Jones [facility] Work Phone: Comment on above: Method: Oral 10-22-2007 15:39-0500 Body weight 0 kg Patt Jones [facility] Work Phone: 10-22-2007 15:39-0500 BP Diastolic 80 mm[Hg] Patt Jones [facility] Work Phone: Comment on above: Patient Position: Sitting; Cuff Location : Right Arm; Cuff Size: Large 10-22-2007 15:39-0500 BP Systolic 154 mm[Hg] Patt Jones [facility] Work Phone: Comment on above: Patient Position: Sitting; Cuff Location : Right Arm; Cuff Size: Large 10-22-2007 15:39-0500 Head Circumference 0 cm Patt Jones [facility] Work Phone: 10-22-2007 15:39-0500 Head Occipital-frontal circumference 0 cm Patt Jones DO Work Phone: [facility]; [facility] Work Phone: 10-22-2007 15:39-0500 Height 0 cm Patt Jones [facility] Work Phone: 10-22-2007 15:39-0500 Pulse (Heart Rate) 76 /min Patt Jones [facility] Work Phone: Comment on above: Pattern: Regular 10-22-2007 15:39-0500 Respiratory Rate 18 /min Patt Jones [facility] Work Phone: Comment on above: Pattern: Unlabored 10-22-2007 15:39-0500 Weight 0 kg Patt Jones [facility] Work Phone: Encounters Encounter Date Encounter Type Care Provider Facility Start: 04-14-2025 End: 04-14-[address] Patt Jones DO Work Phone: -[facility] Start: 04-14-2025 End: 04-14-[address] Manisha Navas MD -[facility] Work Phone: Start: 04-14-2025 End: 04-14-2025 ambulatory Patt Jones Facility:[facility] Start: 04-02-2025 End: 04-02-2025 Emergency department patient visit Dr. Patt Jones DO Work Phone: -Emergency Department Work Phone: Start: 03-21-2025 End: 03-21-2025 Patient encounter procedure Andrés Medina PA -[facility] Work Phone: Start: 03-21-2025 End: 03-21-[address] Patt Jones DO Work Phone: -[facility] Start: 03-10-2025 End: 03-10-[address] Patt Jones DO Work Phone: -[facility] Start: 03-10-2025 End: 03-10-2025 Patient encounter procedure Nerissa Valenzuela PA -[facility] Work Phone: Start: 03-10-2025 End: 03-10-2025 ambulatory Patt Jones Facility:[facility] Start: 02-19-2025 End: 02-19-[address] Patt Jones DO Work Phone: [facility] Work Phone: Start: 02-19-2025 End: 02-19-[address] Patt Jones DO -Cat Scan [facility] Work Phone: Start: 02-19-2025 End: 02-19-2025 ambulatory Patt Jones Facility:[facility] Start: 01-16-2025 End: 01-16-[address] Patt Jones DO Work Phone: [facility] Work Phone: Start: 01-16-2025 End: 01-16-[address] Patt Jones DO -Ultrasound [facility] Work Phone: Start: 01-16-2025 End: 01-16-2025 ambulatory Patt Jones Facility:[facility] Start: 01-12-2025 End: 01-12-2025 Emergency department patient visit Dr. Patt Jones DO Work Phone: -Emergency Department Work Phone: Start: 01-03-2025 End: 01-03-[address] Manisha Navas MD -Laboratory, [place] Work Phone: Start: 01-03-2025 End: 01-03-2025 ambulatory Patt Jones Facility:[facility] Start: 11-22-2024 End: 11-22-[address] Patt Jones DO Work Phone: [facility] Work Phone: Start: 11-22-2024 End: 11-22-[address] Manisha Navas MD -Laboratory, [place] Work Phone: Start: 11-22-2024 End: 11-22-2024 ambulatory Patt Jones Facility:[facility] Start: 11-04-2024 End: 11-04-[address] Negro Johnson DO [facility] Work Phone: Start: 11-04-2024 End: 11-04-2024 ambulatory Patt Jones Facility:[facility] Start: 09-11-2024 End: 09-11-[address] Negro Johnson DO [facility] Work Phone: Start: 09-11-2024 End: 09-11-2024 ambulatory [facility] Facility:[facility] Start: 09-10-2024 Encounter for other preprocedural examination [facility] Start: 09-05-2024 End: 09-05-[address] Manisha Navas MD -Laboratory, [place] Work Phone: Start: 09-05-2024 End: 09-05-2024 ambulatory [facility] Facility:[facility] Start: 08-19-2024 ambulatory Oliver Liu Facility:[facility] Start: 08-19-2024 Non-patient / Non-visit Dr. Oliver rodriguez MD -[facility] Start: 08-19-2024 End: 08-19-[address] Young Ng MD -Cardiovascular Services Work Phone: Start: 08-19-2024 End: 08-19-2024 ambulatory Young Ng Facility:[facility] Start: 08-05-2024 End: 08-24-2024 Evaluation and management of inpatient Dr. Young Ng MD -Transitional Care Unit Start: 08-05-2024 Non-patient / Non-visit Dr. Lance Gresham MD -[facility] Work Phone: Start: 08-04-2024 Non-patient / Non-visit Dr. Judy Willson MD -[facility] Work Phone: Start: 08-03-2024 Non-patient / Non-visit Dr. Judy Willson MD -[facility] Work Phone: Start: 08-02-2024 Non-patient / Non-visit Dr. Judy Willson MD -[facility] Work Phone: Start: 08-02-2024 ambulatory Alvarez Ohara Facility :[facility] Start: 08-02-2024 Non-patient / Non-visit Alvarez Banda nd [facility] Start: 08-02-2024 End: 08-02-2024 ambulatory Aisha Madison Facility:[facility] Start: 08-02-2024 End: 08-02-2024 Non-patient / Non-visit Dr. Aisha Madison MD -[facility] Work Phone: Start: 08-01-2024 Non-patient / Non-visit Dr. Judy Willson MD -[facility] Work Phone: Start: 08-01-2024 Non-patient / Non-visit Alvarez Banda nd DO -[facility] Start: 07-30-2024 End: 07-30-2024 ambulatory Jagdish Meadows Facility:[facility] Start: 07-29-2024 Encounter for other preprocedural examination Patt Jones [facility] Start: 07-26-2024 ambulatory Patt Robert Facilit y:[facility] Start: 07-26-2024 End: 08-05-2024 Evaluation and management of inpatient Dr. Lance Gresham MD -Progressive Care Unit Work Phone: Start: 07-22-2024 End: 07-22-2024 ambulatory [facility] Facility:[facility] Start: 07-16-2024 ambulatory [facility] Facility :[facility] Start: 07-16-2024 End: 07-18-2024 Evaluation and management of inpatient [facility] Facility:[facility] Start: 07-16-2024 ambulatory [facility] Facility :[facility] Start: 07-12-2024 End: 07-12-2024 ambulatory Patttalia Paulinoon Facility:[facility] Start: 07-05-2024 End: 07-05-2024 ambulatory [facility] Facility:[facility] Start: 06-14-2024 End: 06-14-2024 ambulatory Patt Robert Facility:[facility] Start: 06-06-2024 End: 06-06-2024 ambulatory Patt Jones Facility:[facility] Start: 05-29-2024 End: 05-29-2024 ambulatory Patt Jones Facility:[facility] Start: 05-10-2024 End: 05-10-2024 ambulatory Patt Jones Facility:[facility] Start: 05-09-2024 End: 05-09-2024 ambulatory Patt Jones Facility:[facility] Start: 05-01-2024 End: 05-01-2024 ambulatory Patt Robert Facility:[facility] Start: 12-26-2023 End: 12-26-2023 ambulatory [facility] Work Phone: Start: 12-26-2023 End: 12-26-2023 Patient encounter procedure [facility]-Outpatient Breast Imaging Work Phone: Start: 12-11-2023 End: 12-11-2023 ambulatory [facility] Work Phone: Start: 12-11-2023 End: 12-11-2023 Patient encounter procedure [facility] Work Phone: Start: 09-08-2023 End: 09-08-2023 ambulatory [facility] Work Phone: Start: 09-08-2023 End: 09-08-2023 Patient encounter procedure [facility] Work Phone: Start: 06-16-2023 End: 06-16-[address] Patt Jones Work Phone: [facility] Work Phone: Start: 06-16-2023 End: 06-16-[address] Patt Jones Work Phone: [facility] Work Phone: Start: 06-03-2023 End: 06-03-2023 Emergency department patient visit Dr. Patt Jones Work Phone: [facility]-Emergency Department Work Phone: Start: 04-18-2023 Non-patient / Non-visit Dr. Sudarshan Jones Work Phone: [facility] Start: 04-18-2023 End: 04-18-2023 [facility] Start: 04-10-2023 Review Patt hoffmann DO Work Phone: [facility] Start: 04-10-2023 End: 04-20-2023 Nursing evaluation of patient and report Patt Jones DO Work Phone: [facility] Start: 03-22-2023 End: 03-22-[address] Patt Jones Work Phone: [facility] Work Phone: Start: 12-28-2022 End: 12-28-2022 ambulatory [facility] Work Phone: Start: 12-28-2022 End: 12-28-2022 Patient encounter procedure [facility] Start: 11-21-2022 ambulatory Patt Jones DO [facility] Start: 11-21-2022 End: 11-21-2022 Emergency department patient visit [facility]-Emergency Department Start: 09-29-2022 End: 09-29-2022 Office outpatient visit 5 minutes Patt Jones DO Work Phone: [facility] Start: 09-29-2022 End: 09-29-2022 ambulatory [facility] Work Phone: Start: 09-29-2022 End: 09-29-2022 Patient encounter procedure [facility] Start: 07-06-2022 End: 07-06-2022 ambulatory [facility] Work Phone: Start: 07-06-2022 End: 07-06-2022 Patient encounter procedure [facility] Start: 04-07-2022 End: 04-07-[address] Patt Jones Work Phone: [facility] Start: 03-30-2022 End: 03-30-2022 Office outpatient visit 5 minutes Patt Robert DO Work Phone: [facility] Start: 01-28-2022 End: 01-28-2022 Phone Encounter Patt Robert DO Work Phone: [facility] Start: 01-26-2022 End: 01-26-2022 Office outpatient visit 15 minutes Patt Robert DO Work Phone: [facility] Start: 01-19-2022 End: 01-19-[address] Patt Jones Work Phone: [facility] Start: 01-11-2022 End: 01-11-2022 Patient encounter procedure [facility] Start: 11-24-2021 End: 11-24-2021 [facility] Start: 11-03-2021 End: 11-03-2021 Phone Encounter Patt Robert DO Work Phone: [facility] Start: 10-18-2021 End: 10-18-2021 Patient encounter procedure [facility] Start: 09-28-2021 End: 10-09-2021 Office outpatient visit 5 minutes Patt Robert DO Work Phone: [facility] Start: 09-28-2021 Review Patt Paulinoo n DO Work Phone: [facility] Start: 08-13-2021 End: 08-13-2021 Annotation/Addendum Patt Robert DO Work Phone: [facility] Start: 08-11-2021 Patient encounter procedure [facility] Start: 07-21-2021 End: 07-21-2021 Annotation/Addendum Patt Robert DO Work Phone: [facility] Start: 07-02-2021 End: 07-02-2021 Office outpatient visit 25 minutes Patt Robert DO Work Phone: [facility] Start: 03-31-2021 End: 04-01-2021 Office outpatient visit 5 minutes Patt Robert DO Work Phone: [facility] Start: 03-26-2021 End: 03-26-2021 Office outpatient visit 25 minutes Patt Robert DO Work Phone: [facility] Start: 03-11-2021 Review Patt Fearo n DO Work Phone: [facility] Start: 02-23-2021 End: 02-23-2021 Office outpatient visit 15 minutes Patt Robert DO Work Phone: [facility] Start: 02-22-2021 End: 02-22-2021 Annotation/Addendum Patt Robert DO Work Phone: [facility] Start: 12-22-2020 End: 12-21-2020 Office outpatient visit 15 minutes Patt Robert DO Work Phone: [facility] Start: 12-11-2020 End: 12-11-2020 Office outpatient visit 25 minutes Patt Robert [facility] Start: 12-08-2020 End: 12-08-2020 Annotation/Addendum Patt Robert [facility] [employer] [facility] Start: 12-04-2020 End: 12-04-2020 Office outpatient visit 15 minutes Patt Robert [facility] Start: 11-20-2020 End: 11-20-2020 Office outpatient visit 15 minutes Patt Robert [facility] Start: 05-01-2020 End: 05-01-2020 Office outpatient visit 15 minutes Patt Robert [facility] Start: 05-01-2020 Review Patt Robert [facility] Start: 05-01-2020 Review Patt Robert [facility] Start: 02-12-2020 End: 02-12-2020 Office outpatient visit 25 minutes Patt Robert [facility] Start: 02-12-2020 End: 02-12-2020 Physical examination Patt Jones DO Work Phone: [facility] Start: 10-05-2018 End: 10-05-2018 Phone Encounter Patt Jones [facility] [employer] [facility] Start: 07-06-2018 End: 07-06-2018 Office outpatient visit 15 minutes Patt Jones [facility] Start: 05-16-2018 End: 05-16-2018 Patient encounter procedure Leighann Carbajal RN [facility]; [facility] Work Phone: Start: 05-16-2018 End: 05-16-2018 Periodic preventive med est patient 65yrs& older Patt Robert [facility] Start: 04-27-2018 End: 04-27-2018 Office outpatient visit 25 minutes Patt Jones [facility] Start: 06-10-2016 End: 06-10-2016 Office outpatient visit 5 minutes Patt Jones [facility] Start: 01-21-2016 End: 01-21-2016 Office outpatient visit 25 minutes Patt Jones [facility] Start: 11-02-2015 End: 11-02-2015 Office outpatient visit 25 minutes Patt Robert [facility] Start: 09-25-2015 End: 09-25-2015 Phone Encounter Patt Robert [facility] [employer] [facility] Start: 05-04-2015 End: 05-04-2015 Patient encounter status Patt Jones DO Work Phone: [facility] Start: 05-04-2015 End: 05-04-2015 Periodic preventive med est patient 40-64yrs Patt Jones [facility] Start: 04-13-2015 End: 04-13-2015 Phone Encounter Patt Jones [facility] [employer] [facility] Start: 06-13-2014 End: 06-13-2014 Office outpatient visit 5 minutes Patt Jones [facility] Start: 07-19-2013 End: 07-19-2013 Patient encounter Patt Robert [facility] [employer] [facility] Start: 07-03-2013 End: 07-03-2013 Phone Encounter Patt Robert [facility] [employer] [facility] Start: 05-03-2013 End: 05-03-2013 Patient encounter Patt Robert [facility] [employer] [facility] Start: 01-17-2013 End: 01-17-2013 Patient encounter Patt Jones [facility] [employer] [facility] Start: 12-19-2012 End: 12-19-2012 Office outpatient visit 25 minutes Patttalia Jones [facility] Start: 06-15-2012 End: 06-15-2012 Patient encounter Patt Jones [facility] [employer] [facility] Start: 03-08-2012 End: 03-08-2012 Patient encounter Patt Jones [facility] [employer] [facility] Start: 03-08-2012 End: 03-08-2012 Patient encounter status Patt Jones DO Work Phone: [facility] Start: 01-20-2012 End: 01-23-2012 Patient encounter [facility] Start: 07-15-2011 End: 07-15-2011 Annotation/Addendum [facility] Start: 07-15-2011 End: 07-15-2011 Office outpatient visit 15 minutes [facility] Start: 07-01-2011 End: 07-01-2011 Patient encounter [facility] Start: 05-25-2011 End: 05-25-2011 Patient encounter Patt [facility] Start: 12-29-2010 End: 12-29-2010 Office outpatient visit 15 minutes Patttalia [facility] Start: 12-22-2010 End: 12-23-2010 Patient encounter [facility]att [facility] Start: 11-30-2010 End: 11-30-2010 Patient encounter Patt [facility] Start: 11-30-2010 End: 11-30-2010 Patient encounter status Patt Jones DO Work Phone: [facility] Start: 11-22-2010 End: 11-22-2010 Patient encounter [facility]att [facility] Start: 09-28-2010 End: 09-28-2010 Patient encounter Patt [facility] Start: 08-02-2010 End: 08-02-2010 Patient encounter Patt [facility] Start: 01-23-2009 End: 01-28-2009 Patient encounter Patt [facility] Start: 01-08-2009 End: 01-08-2009 Office outpatient visit 25 minutes Patttalia Jones [facility] Start: 12-17-2008 End: 12-17-2008 Patient encounter [facility]att [facility] Start: 12-17-2008 End: 12-17-2008 Patient encounter status Patt Jones DO Work Phone: [facility] Start: 12-08-2008 End: 12-08-2008 Patient encounter [facility] Start: 12-03-2008 End: 12-03-2008 Patient encounter Patt [facility] Start: 05-30-2008 End: 05-30-2008 Patient encounter Patt [facility] Start: 04-29-2008 End: 04-29-2008 Office outpatient visit 15 minutes Patt [facility] Start: 03-27-2008 End: 03-27-2008 Office outpatient visit 15 minutes Patt [facility] Start: 02-26-2008 End: 02-26-2008 Patient encounter Patt [facility] Start: 01-24-2008 End: 01-24-2008 Office outpatient visit 15 minutes Patt [facility] Start: 10-22-2007 End: 10-22-2007 Patient encounter [facility] Patient encounter procedure Kimberli Slarb SIGNAL TIMER [facility]; [facility] Work Phone: Patient encounter procedure Andre Bernardo LPN [facility]; [facility] Work Phone: Patient encounter procedure Kimberli Slarb SIGNAL [employer]ER [facility]; [facility] Work Phone: Patient encounter procedure Stephanie Gravius [employer] [facility]; [facility] Work Phone: Physical examination Kimberli Slarb SIGNAL [employer]ER [facility]; [facility] Work Phone: Physical examination Andre Bernardo LPN [facility]; [facility] Work Phone: Physical examination Kimberli Slarb SIGNAL [employer]ER [facility]; [facility] Work Phone: Physical examination Stephanie Gravius [employer] [facility]; [facility] Work Phone: Procedures Date Procedure Procedure Detail Performing Clinician Start: 04-02-2025 End: 04-02-2025 Urnls dip stick/tablet reagent auto microscopy Dr. Patt Jones DO Work Phone: Start: 04-02-2025 Computed tomography of abdomen and pelvis with intravenous contrast Dr. Patt Jones DO Work Phone: Start: 04-02-[address] Laura Jones DO Work Phone: Start: 04-02-2025 Measurement of occult blood in stool specimen using immunoassay Dr. Patt Jones DO Work Phone: Start: 04-02-2025 Ova [place] parasites identification Dr. Laura Jones DO Work Phone: Start: 03-10-2025 Plain x-ray of pelvis and lower extremity Dr. Patt Jones DO Work Phone: Start: 02-19-2025 CT of abdomen and pelvis without contrast Dr. Patt Jones DO Work Phone: Start: 01-16-[address] Patt Jones DO Work Phone: Start: 01-16-[address] Patt Jones DO Work Phone: Start: 01-16-2025 Urnls dip stick/tablet reagent auto microscopy Dr. Patt Jones DO Work Phone: Start: 01-12-[address] Kalie Jones DO Work Phone: Start: 11-04-2024 Plain x-ray of pelvis and lower extremity Dr. Patt Jones DO Work Phone: Start: 09-11-2024 Plain x-ray of pelvis and lower extremity Dr. Patt Jones DO Work Phone: Start: 08-20-2024 Plain x-ray of pelvis and lower extremity Dr. Patt Jones DO Work Phone: Start: 08-19-[address] Patt Jones DO Work Phone: Start: 08-13-2024 Measurement of occult blood in stool specimen using immunoassay Dr. Patt Jones DO Work Phone: Start: 08-12-[address] Patt Jones DO Work Phone: Start: 08-02-[address] Patt Jones DO Work Phone: Start: 07-31-[address] Laura Jones DO Work Phone: Start: 07-31-2024 Measurement of occult blood in stool specimen using immunoassay Dr. Patt Jones DO Work Phone: Start: 07-31-[address] Patt Jones DO Work Phone: Start: 07-31-2024 Plain x-ray of pelvis and lower extremity Dr. Patt Jones DO Work Phone: Start: 07-30-[address] Patt Jones DO Work Phone: Start: 07-30-2024 Plain chest X-ray Dr. Patt Jones DO Work Phone: Start: 07-30-2024 CT of head without contrast Dr. Patt Jones DO Work Phone: Start: 07-28-2024 Plain X-ray of hip Dr. Patt Jones DO Work Phone: Start: 07-28-2024 Total replacement of right hip joint Dr. Patt Jones DO Work Phone: Start: 07-26-2024 X-ray of knee, one or two views Dr. Laura Jones DO Work Phone: Start: 07-26-2024 Plain chest X-ray Dr. Patt Jones DO Work Phone: Start: 07-26-2024 Plain x-ray of pelvis and lower extremity Dr. Patt Jones DO Work Phone: Start: 12-26-2023 Dual energy X-ray absorptiometry Start: 12-26-2023 Screening mammography Start: 06-03-2023 End: 06-03-2023 Emergency Department Summary Procedure Note: See Note; NOTES: [facility] Medical Records Department [address] [place] [address] Emergency Department Summary 06/03/23 MR#: [id number] Acct: [id number] Name: GUNJAN CONNELL Rep #: [id number] : 1955 68 From: Ramu Romero MD PCP: Dr. Patt Jones, DO Status:REG ER Location: ED HPI History of Present Illness Chief Complaint: Lower Extremity Injury Informant: patient Narrative Narrative: 2-3 days gradual onset pain, swelling, redness. Has not left ankle without injury. Hurts to walk on. Very sensitive to touch. never had this before. Has a history of arthritis in knees especially, but never had it in her ankles or big toes. No history of gout or pseudogout that she knows of. Denies any fevers or chills. Denies any foreign bodies, injuries, or any other obvious reason for this pain. She states it came on gradually, mild at first but has gotten more severe. Currently wearing an orthotic boot right foot/ankle because of chipping a bone in her foot. She has been be able to bear weight on that lately, thinks maybe she is favoring it. [facility] Medical History Cochlear implant in place Hx of cataract Tonsillectomy planned Home Medications Cholecalciferol (Vitamin D3) [Vitamin D3] 2 tab PO DAILY 02/12/20 [History Last Taken Unknown] methocarbamol 500 mg tablet 500 mg PO TID 01/19/22 [History Last Taken Unknown] tramadol 50 mg tablet 50 mg PO Q6H PRN pain 01/19/22 [History Last Taken 04/18/23] hydrocodone-acetaminophen 5-325mg 5mg-325mg 1 tab PO Q4H PRN PRN Pain 4 days #14 TABLETS 11/21/22 [Rx Last Taken Unknown] folic acid 1 mg tablet 1 mg PO DAILY 04/18/23 [History Last Taken 04/18/23] gabapentin 100 mg capsule 100 mg PO .hs 04/18/23 [History Last Taken Unknown] oxycodone 5 mg tablet 5 mg PO Q8H PRN pain 3 days #12 tabs 04/18/23 [Rx Last Taken Unknown] cephalexin 500 mg capsule 500 mg PO Q6 #40 CAPSULES 06/03/23 [Rx Last Taken Unknown] prednisone 20 mg tablet 40 mg (2 x 20 mg) PO DAILY 5 days #10 tabs 06/03/23 [Rx Last Taken Unknown] Allergy/AdvReac Type Severity Reaction Status Date / Time No Known Allergies Allergy Verified 06/03/23 15:41 Surgical History History of carpal tunnel release of both wrists Hx of arthroscopy of right knee Hx of cholecystectomy Hx of removal of cyst Social History Smoking Status: Never smoker ROS ROS ED Constitutional Constitutional ED: Denies chills or fever(s) Musculoskeletal Musculoskeletal: Reports extremity pain; Denies neck pain Integumentary Reports as per HPI; Denies Abrasions, rash or wounds Neurologic Neurologic: Denies paresthesias or weakness EXAM Physical Exam Const Vital Signs: 06/03/23 15:41 Temperature 97.6 F L Temperature Source Temporal Pulse Rate 66 Respiratory Rate 14 Blood Pressure 134/97 H Blood Pressure Mean 109 Pulse Ox 99 Oxygen Delivery Method Room Air Positive well nourished, well developed and obese General Appearance ED: well developed and NAD Nutritional Appearance: obese Neck full ROM and supple Back/Spine normal ROM and normal to inspection Extremity Extremity Narrative: Painful short arc range of motion active or passive left ankle. Erythematous, warm, mildly diffusely swollen more prominent anterior to the lateral malleolus. Very tender to palpation here. No lymphangitis no abscess. No inguinal lymphadenopathy. Does not extend into the foot at all. Right foot/ankle in an orthotic boot device. Neuro oriented x3, no focal motor deficits and no sensory deficits noted Sensorium / Orientation: alert Psych mental status grossly normal and thought process normal Skin no wounds Rashes: no rashes MDM MDM MDM Narrative Medical decision making narrative: Three-view x-ray series of the left ankle were obtained and on my interpretation shows soft tissue swelling but no acute bony abnormality. My concern is that this is an atraumatic joint inflammation versus infection, this could be gout or pseudogout, or it could be a septic arthritis. Given that she has never had gout or pseudogout before, arthrocentesis as well as blood work is indicated in order to differentiate; she is amenable to that and understands. Blood work obtained, but we were not able to obtain synovial fluid see the procedure note. CRP elevated, uric acid in the normal range, no significant leukocytosis, ESR is normal. This is not diagnostic, it does not rule in or rule out septic arthritis or crystal induced arthritis or noncrystal induced inflammatory arthritis. We will place the patient on antibiotics and prednisone and advised close outpatient follow-up with orthopedics or return to the ER if symptoms worsen. She is comfortable with that plan. She uses a walker to get around, we will place her in an Piotr wrap. Discussed with orthopedics, agreeable with that plan. Lab Data Attestation: I reviewed the patient's lab results. Labs: Laboratory Results - last 24 hr 06/03/23 17:10 WBC 9.0 RBC 4.53 Hgb 13.7 Hct 41.1 MCV 90.7 MCH 30.2 MCHC 33.3 RDW Std Deviation 42.4 RDW Coeff of Oly 12.8 Plt Count 223 MPV 9.2 Immature Gran % (Auto) 0.200 Neut % (Auto) 74.8 H Lymph % (Auto) 12.5 L Banner % (Auto) 12.1 H Eos % (Auto) 0.2 Baso % (Auto) 0.2 Absolute Neuts (auto) 6.8 Absolute Lymphs (auto) 1.13 Nucleated RBC % 0 ESR 15 Sodium 136 Potassium 3.8 Chloride 105 Carbon Dioxide 29.0 Anion Gap 2 L BUN 13 Creatinine 0.93 Estim Creat Clear Calc 74.40 Est GFR (MDRD) Af Amer 77 Est GFR (MDRD) Non-Af 63 BUN/Creatinine Ratio 14.0 Glucose 113 H Uric Acid 3.7 Calcium 8.7 C-React Prot Ext Range 17.00 H Radiography Diagnostic Testing: Clinical Impression(s) from Imaging Studies Ankle X-Ray 06/03/23 15:50 IMPRESSION: No acute fracture or dislocation. Lateral soft tissue swelling. Electronically Signed: Johan Tejada MD at 16:36 EDT , Management Discussion w/another healthcare provider: Plastic Surgery Manager (Valentino Blankenship) Procedures Other Procedures Procedure(s): Left ankle arthrocentesis: Locally anesthetized with 1 cc 1% lidocaine with epinephrine, anterior medial aspect just medial to the tibialis anterior. Prepped and draped in sterile fashion initially with isopropanol then with chlorhexidine, attempted to enter the joint with an 18-gauge needle, despite multiple attempts unable to enter the joint space, there is some minor bleeding that was well controlled, patient was in significant discomfort with the redirection to the needle so we aborted and were not able to obtain any joint fluid. Discharge Plan Triage Chief Complaint: Lower Extremity Injury ED Provider: Ramu Romero Dx/Rx/DC Orders Clinical Impression: Arthritis of ankle, left Instructions: What Is Arthritis?, Eating to Prevent Gout, ED Gout Prescriptions: New cephalexin [cephalexin] 500 mg capsule 500 mg PO Q6 Qty: 40 0RF Continued methocarbamol 500 mg tablet 500 mg PO TID tramadol 50 mg tablet 50 mg PO Q6H PRN (Reason: pain) Cholecalciferol (Vitamin D3) [Vitamin D3] 5,000 UNIT capsule 2 tab PO DAILY hydrocodone-acetaminophen 5-325 mg tablet 1 tab PO Q4H PRN PRN (Reason: Pain) 4 Days Qty: 14 0RF folic acid 1 mg tablet 1 mg PO DAILY Patient Comments: TAKE 2 TABLETS BY MOUTH DAILY gabapentin 100 mg capsule 100 mg PO .hs Patient Comments: TAKE 3 CAPSULES BY MOUTH AT NIGHT oxycodone 5 mg tablet 5 mg PO Q8H PRN (Reason: pain) 3 Days Qty: 12 0RF prednisone 20 mg tablet 40 mg PO DAILY 5 Days Qty: 10 0RF Discontinued prednisone 20 MG tablet 60 mg PO DAILY Qty: 9 0RF Primary Care Provider: Patt Jones Referrals: Patt Jones DO [Primary Care Provider] - Jagdish Jim DO [Med Staff - Active Staff] - 3-5 Days if not improving Disposition Disposition: Home, Self Care What to do if you have Problems For any increased pain, shortness of breath, bleeding, nausea or vomiting, chest pain, or any unexpected problems, contact your Primary Care Provider. Call [facility] ([phone]) or report to the closest Emergency Room. Call 911 if necessary. 06/03/231815 <Electronically signed by Ramu Romero MD> Cosigner Signature (if applicable): CC: Dr. Patt Jones DO Signed Patt Jones DO Work Phone: Start: 06-03-2023 End: 06-03-2023 Ankle min 3 Views Procedure Note: See Note; NOTES: [facility] Imaging Services [address] [place] [address] Ankle min 3 Views MR#: [id number] Acct: [id number] Name: GUNJAN CONNELL Rep #: [id number] : 1955 F 68 From: Johan Tejada MD PCP: Dr. Patt Jones DO Status: PRE ER Study: Ankle min 3 Views Date of Exam: 06/03/23 Exam# [id number] Ordering Dr: Leni,Ed P. [id number] STUDY: X-RAY - LEFT ANKLE REASON FOR EXAM: Female, 68 years old. SWELLING TECHNIQUE: 3 view(s) of the ankle. COMPARISON: None. FINDINGS: Normal visualized distal tibia and fibula. Normal medial and lateral malleoli. Normal tibiotalar articulation and ankle mortise. Normal visualized talus and calcaneus. Moderate-sized plantar and posterior calcaneal enthesophytes. The visualized subtalar, talonavicular, calcaneocuboid and tarsal articulations are normal. Lateral soft tissue swelling. RAD/Ankle min 3 Views IMPRESSION: No acute fracture or dislocation. Lateral soft tissue swelling. Electronically Signed: Johan Tejada MD at 16:36 EDT Reading Location ID and State: [facility] / [place] Tel , Service support , CC: Dr. Patt Jones DO; ED PHYSICIAN PROVIDER [employer] Operator: Signed Patt Jones DO Work Phone: Start: 06-03-[address] Patt Jones Work Phone: Start: 04-18-2023 End: 04-18-2023 Foot min 3 Views Procedure Note: See Note; NOTES: [facility] Imaging Services [address] [place] [address] Foot min 3 Views MR#: [id number] Acct: [id number] Name: GUNJAN CONNELL Rep #: [id number] : 1955 F 68 From: Beni Robertson MD PCP: Dr. Patt Jones DO Status: REG ER Study: Foot min 3 Views Date of Exam: 04/18/23 Exam# [id number] Ordering Dr: Regi Bunch DO STUDY: X-RAY - RIGHT FOOT CLINICAL: Female, 68 years old. pain, swelling TECHNIQUE: 3 view(s) of the foot. COMPARISON: None. FINDINGS: Normal talus, and tarsal bones. Small plantar calcaneal spur. Normal visualized subtalar, talonavicular, calcaneocuboid, tarsal and tarsometatarsal articulations. There is an acute avulsion fracture of the base of the fifth metatarsal with mild separation of fracture fragments Normal metatarsophalangeal joint of the great toe. Normal tibial and fibular sesamoid bones. Normal interphalangeal joint of the great toe. Normal phalanges of the great toe. Normal second through fifth metatarsophalangeal joints. Normal interphalangeal joints and phalanges of the lesser toes. The soft tissue structures are unremarkable. RAD/Foot min 3 Views IMPRESSION: Acute cortical avulsion fracture of the base of fifth metatarsal. Electronically Signed: Beni Robertson MD at 16:25 EDT , CC: Dr. Regi Bunch DO; Dr. Patt Jones DO [employer] Operator: Signed Patt Jones DO Work Phone: Start: 04-18-2023 X-ray of both feet Dr. Patt Jones Work Phone: Start: 04-18-2023 End: 04-19-2023 Emergency Department Summary Procedure Note: See Note; NOTES: [facility] Medical Records Department [address] [place] [address] Emergency Department Summary 04/18/23 MR#: [id number] Acct: [id number] Name: GUNJAN CONNELL Rep #: [id number] : 1955 68 From: Regi Bunch DO PCP: Dr. Patt Jones DO Status:DEP ER Location: ED HPI History of Present Illness Chief Complaint: Fall Informant: patient Narrative Narrative: Patient is a 68-year-old female presenting for evaluation of right foot pain and right rib pain after fall. Patient states for the past few days she had increased pain and now swelling of her right foot. She has been told she has arthritis all over and in her foot. She was using a walker and then hobbled into the bathroom. She was trying to hobble back when she lost her balance and fell. She landed on her right side on the step up into the shower. She states is made concrete. She hit her right ribs. She denies hitting her head. She denies any loss of conscious. She states she is not on any blood thinners. She does not recall getting the wind knocked out of her. She is mostly complaining of right foot pain which is the same pain she had before the fall. She also notes that her right ribs hurt but her foot hurts more. Patient does see Dr. Boothe for her arthritis. She does not see a power regulator. She notes she has been seen in the ER for her foot pain in the past but does not know if this was similar or not. She denies any trauma to her foot. She states it was hurting on the side and now it feels like burning on the top of her foot. She notes that she does have ongoing numbness tingling to her fingers but does not think that she has been diagnosed with neuropathy. No other complaints or concerns at this time. I did call 911 to come in as her is not home at not home today. Patient denies any fever or chills. Chart review shows that patient was seen on 11/21/2022 for right ankle/foot pain. She was treated with a short course of [place] and a burst of prednisone. X-ray of the ankle showed arthritis. Patient had EMG in November 2021 of the upper extremities for numbness and tingling in both hands. Was largely normal with no signs of cervical radiculopathy. [facility] Medical History Cochlear implant in place Hx of cataract Tonsillectomy planned Home Medications Cholecalciferol (Vitamin D3) [Vitamin D3] 2 tab PO DAILY 02/12/20 [History Last Taken Unknown] prednisone 20 mg tablet 60 mg (3 x 20 mg) PO DAILY #9 TABLETS 11/19/20 [Rx Last Taken Unknown] methocarbamol 500 mg tablet 500 mg PO TID 01/19/22 [History Last Taken Unknown] tramadol 50 mg tablet 50 mg PO Q6H PRN pain 01/19/22 [History Last Taken 04/18/23] hydrocodone-acetaminophen 5-325mg 5mg-325mg 1 tab PO Q4H PRN PRN Pain 4 days #14 TABLETS 11/21/22 [Rx Last Taken Unknown] prednisone 20 mg tablet 40 mg (2 x 20 mg) PO DAILY 6 days #12 tabs 11/21/22 [Rx Last Taken Unknown] folic acid 1 mg tablet 1 mg PO DAILY 04/18/23 [History Last Taken 04/18/23] gabapentin 100 mg capsule 100 mg PO .hs 04/18/23 [History Last Taken Unknown] oxycodone 5 mg tablet 5 mg PO Q8H PRN pain 3 days #12 tabs 04/18/23 [Rx Last Taken Unknown] Allergy/AdvReac Type Severity Reaction Status Date / Time No Known Allergies Allergy Verified 04/18/23 12:35 Surgical History History of carpal tunnel release of both wrists Hx of arthroscopy of right knee Hx of cholecystectomy Hx of removal of cyst Social History Smoking Status: Never smoker ROS ROS ED Constitutional Constitutional ED: Denies chills or fever(s) Eyes Eyes: Denies blurry vision Cardiovascular Cardiovascular: Reports chest pain and other Details: right rib pain Respiratory/Chest Respiratory/Chest: Denies cough or dyspnea Gastrointestinal Gastrointestinal: Denies nausea or vomiting Musculoskeletal Musculoskeletal: Reports arthralgias and other Details: right foot pain Integumentary Denies Abrasions or rash Neurologic Neurologic: Reports paresthesias; Denies weakness Psychiatric Psychiatric: Denies anxiety Hematologic/Lymphatic Hematologic/Lymphatic: Denies easy bleeding or easy bruising EXAM Physical Exam Const Vital Signs: 04/18/23 12:33 04/18/23 15:51 Temperature 98 F Temperature Source Temporal Pulse Rate 78 78 Respiratory Rate 16 18 Blood Pressure 191/78 H 159/62 H Blood Pressure Mean 115 94 Pulse Ox 98 99 Oxygen Delivery Method Room Air Room Air Positive well nourished and well developed General Appearance ED: well developed and NAD HEENT Reports TM's clear HEENT Narrative: Cochlear implant in place atraumatic Tympanic Membrane ED: Yes TM's clear Eyes PERRL and EOMs intact bilaterally Neck full ROM General: Negative for tenderness Chest Wall inspection of chest normal Chest Narrative: No chest wall crepitus. No flail chest. Patient does have tenderness to palpation of the right lower ribs along the mid axillary line Resp normal respiratory effort and clear to auscultation bilaterally Effort and Inspection: pain with movement Auscultation: Negative for diminished lung sounds Cardio regular rhythm and no murmurs Rate: regular rate GI normal to inspection, nondistended, normoactive bowel sounds and non-tender Extremity Extremity Narrative: 1+ pedal edema on the right. Tenderness to palpation and with range of motion of the right distal foot but does not localize to a single bone or joint. Calf is soft with no palpable cords. There are some slight asymmetric edema of the right lower extremity compared to the left. Neuro oriented x3 and moves all extremities Psych mental status grossly normal and thought process normal Skin no rashes or lesions noted and no wounds Trauma: Negative for abrasion MDM MDM MDM Narrative Medical decision making narrative: Patient presents to the emergency room for a fall. Fall seem to be associated with worsening right foot pain. She is complaining of right-sided rib pain associate with the fall. CT of the chest obtained to look for signs of rib fracture as well as underlying pulmonary injury. Patient is not hypoxic. She actually is complaining more of pain in her foot which was there before the fall. The pain is more diffuse and she does have swelling. She has good distal pulses. No signs of flail chest or chest wall crepitus on physical exam. CT of the chest does not show any acute process including rib fracture or pneumothorax or pulmonary infiltrate. Venous duplex obtained because of asymmetric swelling and pain of the right lower extremity. This is negative for any acute process. Decision is made to order a x-ray given her pain even though she denies trauma. There is an acute avulsion fracture at the base of the fifth metatarsal. This is interpreted by ER physician as well as radiology. Patient does have pain with palpation of that area. Will be placed in a postop shoe. Patient was given 6 IM morphine and then 5 mg oral oxycodone for pain control the ER. On my evaluation she states her pain is gone from a 10 out of 10 to 6 out of 10. Discussed that I likely would not be able to get the patient pain-free but will send her home with a course of oxycodone. Counseled also on icing elevation. Counseled using incentive spirometer to help reduce risk of pneumonia associated with a rib contusion. Patient and agreeable with plan of care. Is given referral for podiatry for outpatient follow-up. Given return precautions. Patient discharged home in stable condition. Radiography Diagnostic Testing: Clinical Impression(s) from Imaging Studies Chest CT 04/18/23 13:45 IMPRESSION: No acute abnormality is seen. Electronically Signed: James Price MD at 14:38 EDT , Venous Doppler Study 04/18/23 14:43 Interpretation Summary There is no evidence of right lower extremity deep vein thrombosis. Right great saphenous vein appears patent and compressible segmentally. Right small saphenous vein is partially compressible with right internal echoes consistent with chronic superficial venous thrombosis Normal flow patterns left common femoral vein ___ Ordering Physician: Regi Bunch Referring Physician: Patt Jones Performed By: Brent Zafar, T Foot X-Ray 04/18/23 16:03 IMPRESSION: Acute cortical avulsion fracture of the base of fifth metatarsal. Electronically Signed: Beni Robertson MD at 16:25 EDT , Discharge Plan Triage Chief Complaint: Fall ED Provider: Regi Bunch Dx/Rx/DC Orders Clinical Impression: Contusion of rib on right side, Avulsion fracture of metatarsal bone of right foot Instructions: ED Fracture, Foot, ED Rib Contusion or Minor Fracture Prescriptions: New oxycodone 5 mg tablet 5 mg PO Q8H PRN (Reason: pain) 3 Days Qty: 12 0RF No Action methocarbamol 500 mg tablet 500 mg PO TID tramadol 50 mg tablet 50 mg PO Q6H PRN (Reason: pain) Cholecalciferol (Vitamin D3) [Vitamin D3] 5,000 UNIT capsule 2 tab PO DAILY prednisone 20 MG tablet 60 mg PO DAILY Qty: 9 0RF prednisone 20 mg tablet 40 mg PO DAILY 6 Days Qty: 12 0RF hydrocodone-acetaminophen 5-325 mg tablet 1 tab PO Q4H PRN PRN (Reason: Pain) 4 Days Qty: 14 0RF folic acid 1 mg tablet 1 mg PO DAILY Patient Comments: TAKE 2 TABLETS BY MOUTH DAILY gabapentin 100 mg capsule 100 mg PO . Patient Comments: TAKE 3 CAPSULES BY MOUTH AT NIGHT Primary Care Provider: Patt Jones Referrals: Patt Jones DO [Primary Care Provider] - Jagdish Garcia DPM [Med Staff - Active Staff] - As soon as possible Activity Restrictions/Additional Instructions: Stop taking tramadol if you are taking the oxycodone prescribed today. Only take one of the other. Follow-up with podiatry. Continue use your walker if you do not have another fall. You may also take Tylenol with this. As we discussed you can use [id number] Salonpas/Lidoderm patches (I recommend 4% extra strength patches). You have a small pole fracture at the base of your fifth foot bone (metatarsal) likely this is why you are having so much foot pain. Use your incentive spirometer while sitting multiple times an hour to prevent pneumonia associated with bruising of your ribs. Your CT did not show any rib fractures. Disposition Disposition: Home, Self Care Discharge Date/Time: 04/18/23 17:30 What to do if you have Problems For any increased pain, shortness of breath, bleeding, nausea or vomiting, chest pain, or any unexpected problems, contact your Primary Care Provider. Call [facility] ([phone]) or report to the closest Emergency Room. Call 911 if necessary. 04/19/23 0033 <Electronically signed by Regi Bunch DO> Cosigner Signature (if applicable): CC: Dr. Patt Jones DO Signed Patt Jones DO Work Phone: Start: 04-18-2023 End: 04-18-2023 Venous Duplex US, Unilateral Procedure Note: See Note; NOTES: [facility] [address] [place] [address] Venous Duplex US, Unilateral 04/18/23 1451 MR#: [id number] Acct: [id number] Name: GUNJAN CONNELL Rep #: [id number] : 1955 68 From: Jose Manuel Wagner MD Attending Dr: Status: REG ER Ordering Dr: Regi Bunch DO Date: 04/18/23 Location: ED Sex: F C Admitted: Reason For Study: RLE Swelling RIGHT LEFT GSV is normal. CFV is compressible, spontaneous, phasic, CFV is compressible, spontaneous, phasic, competent, and demonstrates normal competent and demonstrates normal augmentation. augmentation. FV is compressible, spontaneous, phasic, competent and demonstrates normal augmentation. POP V is compressible, spontaneous, phasic, competent and demonstrates normal augmentation. T/P Trunk is compressible. PTV is compressible. RT PerV is compressible. RT SSV is partially compressible with bright intraluminal echoes. Finding is consistent with chronic SVT. Procedure This is a venous duplex using B-mode, color flow and spectral Doppler. Exam performed portable in ED. The exam was diagnostic. A preliminary report was called and/or faxed to [place] - RN responsible for patient. VL/Venous Duplex US, Unilateral Interpretation Summary There is no evidence of right lower extremity deep vein thrombosis. Right great saphenous vein appears patent and compressible segmentally. Right small saphenous vein is partially compressible with right internal echoes consistent with chronic superficial venous thrombosis Normal flow patterns left common femoral vein ___ Ordering Physician: Regi Bunch Referring Physician: Patt Jones Performed By: Brent Zafar RVT 04/18/23 1534 Date Jose Manuel Wagner MD CC: Dr. Regi Bunch DO; Dr. Patt Jones DO Date Dictated: 04/18/23 1451 Date Transcribed: 04/18/231533 [employer] Furn[employer] Operator: Sourav Jones DO Work Phone: Start: 04-18-2023 End: 04-18-2023 Chest without Contrast Procedure Note: See Note; NOTES: [facility] Imaging Services [address] [place] [address] Chest without Contrast MR#: [id number] Acct: [id number] Name: GUNJAN CONNELL Rep #: [id number] : 1955 F 68 From: James donaldson MD PCP: Dr. Patt Jones DO Status: REG ER Study: Chest without Contrast Date of Exam: 04/18/23 Exam# [id number] Ordering Dr: Beni Viveros DO STUDY: CT CHEST WITHOUT CONTRAST REASON FOR EXAM: Female, 68 years old. Right rib pain following a recent fall. RADIATION DOSAGE (If Supplied By Facility): CTDIvol = ( 14.78 ) mGy, DLP = ( 488.18 ) mGycm TECHNIQUE: Transaxial imaging was performed without the administration of intravenous contrast material. Individualized dose optimization techniques were used for this CT. COMPARISON: No relevant priors. FINDINGS: CHEST Heterogeneous enlargement of the lower pole of the right lobe of the thyroid. Calcified granuloma in the superior segment of the right lower lobe. Calcified granuloma in the anterior aspect of the right lower lobe. There is no demonstrated pleural abnormality. There are calcifications of the coronary arteries. Normal mediastinum. Normal hilar regions. Normal unenhanced pulmonary arteries. There is atherosclerotic calcification of the aortic arch with tortuosity and elongation of the aortic arch and descending thoracic aorta. There are multi-level degenerative changes of the thoracic spine. Status post cholecystectomy. Calcified splenic granulomas. CT/Chest without Contrast IMPRESSION: No acute abnormality is seen. Electronically Signed: James Price MD at 14:38 EDT , CC: Dr. Beni Viveros DO; Dr. Patt Jones DO [employer] Operator: Signed Patt Jones DO Work Phone: Start: 04-18-2023 CT of chest without contrast Dr. Ender Jones Work Phone: Start: 11-21-2022 End: 11-21-2022 Emergency Department Summary Procedure Note: See Note; NOTES: [facility] Medical Records Department [address] [place] [address] Emergency Department Summary 11/21/22 MR#: [id number] Acct: [id number] Name: GUNJAN CONNELL Rep #: [id number] : 1955 67 From: Ashwin Valencia MD PCP: Dr. Patt Jones, Status:REG ER Location: ED HPI History of Present Illness HPI Narrative: Atraumatic right ankle pain. Chief Complaint: Lower Extremity Injury Informant: patient Occured/Mechanism Mechanism/Context: No injury and No blunt trauma Onset/Context/Timing Onset: Today and Yesterday Context: Gradual Onset Timing: Continuous Quality of Pain: Dull Maximum Severity: Mild Associated Symptoms Associated Symptoms: Negative for Parasthesia, Weakness or Loss of Funtion Narrative Narrative: 67-year-old female history of prior right total knee replacement. History of arthritis. States around 5:00 last night she developed right ankle pain. She denies any fall or trauma. No fever or chills. No redness. No history of gout. She does have a history of osteoarthritis. Prior similar symptoms: Yes Recent Illness/Hospitalization: No PFSH PFSH Medical History Cochlear implant in place Hx of cataract Tonsillectomy planned Home Medications Cholecalciferol (Vitamin D3) [Vitamin D3] 2 tab PO DAILY 02/12/20 [History Last Taken Unknown] prednisone 20 mg tablet 60 mg PO DAILY #9 TABLETS 11/19/20 [Rx Last Taken Unknown] methocarbamol 500 mg tablet 500 mg PO TID 01/19/22 [History Last Taken Unknown] tramadol 50 mg tablet 50 mg PO Q6H PRN 01/19/22 [History Last Taken Unknown] prednisone 20 mg tablet 40 mg PO DAILY 6 days #12 tabs 11/21/22 [Rx Last Taken Unknown] Allergy/AdvReac Type Severity Reaction Status Date / Time No Known Allergies Allergy Verified 01/19/22 13:56 Surgical History History of carpal tunnel release of both wrists Hx of arthroscopy of right knee Hx of cholecystectomy Hx of removal of cyst Social History Smoking Status: Never smoker ROS ROS ED ROS Narrative Denies recent illness. Review of Systems ROS Unobtainable: Denies due to encephalopathy Constitutional Constitutional ED: Denies chills or fever(s) Eyes Eyes: Denies blurry vision ENT ENT ED: Denies ear pain Cardiovascular Cardiovascular: Denies chest pain or palpitations Respiratory/Chest Respiratory/Chest: Denies cough or dyspnea Gastrointestinal Gastrointestinal: Denies abdominal pain or constipation Genitourinary Genitourinary ED: Denies dysuria or hematuria Musculoskeletal Musculoskeletal: Denies arthralgias or back pain Integumentary Denies abscess Neurologic Neurologic: Denies headache(s) Psychiatric Psychiatric: Denies anxiety Endocrine Endocrinology: Denies polydipsia Hematologic/Lymphatic Hematologic/Lymphatic: Denies easy bleeding Allergic/Immunologic Allergic/Immunologic ED: Denies mouth swelling or tongue swelling EXAM Physical Exam Narrative Exam Narrative: Six 7-year-old female vital signs are stable afebrile. She does not look septic toxic. She is in no distress. at bedside. H EENT exam unremarkable. Neck nontender. Lungs are clear. Heart regular rhythm no murmur. Rate about 80. Abdomen soft nontender. Moving all 4 extremities. Neurovascular intact. Specifically right hip nontender. No inguinal lymphadenopathy. Right knee prior knee replacement. Well-healed incision. No effusion or swelling at this time. No redness to the knee. Right ankle is tender to palpation both medially and laterally. There is no significant swelling. She has a very strong palpable DP pulse. She has pain with palpation of the ankle. There is no significant swelling. No cellulitis. It is warm to the touch. Foot is nontender. Normal cap refill. Normal touch sensation. Able to wiggle her toes. Calf is nontender without edema or cords. There is no lymphangitic streaking. Const Vital Signs: 11/21/22 01:14 Temperature 97.4 F L Temperature Source Temporal Pulse Rate 81 Respiratory Rate 16 Blood Pressure 174/84 H Blood Pressure Mean 114 Pulse Ox 98 Oxygen Delivery Method Room Air Positive well nourished and well developed; Negative for cachectic, contractures or unkempt General Appearance ED: well developed and NAD; Negative for unkempt, cachectic or contractures Nutritional Appearance: Negative for cachectic HEENT Reports moist mucous membranes normocephalic and atraumatic; Negative for trauma or tenderness Eyes PERRL General Eye ED: Negative for other Neck full ROM and supple Lymph Lymphatic: Negative for other Chest Wall inspection of chest normal and palpation of chest normal Resp normal respiratory effort, no retractions and clear to auscultation bilaterally Effort and Inspection: Negative for pain with movement Auscultation: Negative for rales, rhonchi or wheezes Cardio regular rate, regular rhythm, S1 normal heart sound, S2 normal heart sound and no murmurs Rate: Negative for bradycardia or tachycardic GI non-tender, non-distended and no masses Inspection: Negative for abdominal distention Auscultation: normoactive bowel sounds Palpation: soft; Negative for tender or guarding Back/Spine no CVA tenderness General Back: Negative for CVA tenderness Cervical Spine: Negative for cervical spine tenderness Thoracic Spine / Upper Back: Negative for thoracic spinal tenderness Lumbar Spine / Lower Back: Negative for lumbar spinal tenderness Extremity normal to inspection Extremity Narrative: Except right ankle is tender to touch both medially and laterally. No bony deformity. Slightly warm. No redness. No septic joint. No swelling. Normal DP pulse. Foot nontender. Neurovascular intact. General Extremety ED: Yes weight-bearing difficulty; Negative for cyanosis or edema General Extremity: weight-bearing difficulty; Negative for cyanosis or edema Neuro oriented x3, CN's II-XII intact bilaterally, moves all extremities and no sensory deficits noted Sensorium / Orientation: alert, oriented to person, oriented to place and oriented to time; Negative for orientation impaired, confused, lethargic or stuporous Motor Exam: strength 5/5 throughout Psych mental status grossly normal Appearance: Negative for unkempt Speech: No other Mood Affect: Negative for anxious Skin no wounds Lesions: no lesions Rashes: no rashes Trauma: Negative for abrasion, laceration or puncture MDM MDM MDM Narrative Medical decision making narrative: 67-year-old female atraumatic right ankle pain. Clinically there is no cellulitis. It does not look like a septic joint. She has no history of gout and clinically does not look like gout. X-ray shows chronic changes but no fracture or dislocation. I think this is secondary to arthritis. She states she kind of twisted her ankle she put in her shoe and after that is when the plane started. She will be given [place] here for pain. Started on prednisone 40 mg a for 7 days. First dose given here. She is a walker at home. Stressed both to her and her that if this gets red, swollen or fever she needs to return to have it reevaluated if is not improving she needs to follow-up with her primary care physician. Radiography Diagnostic Testing: Right ankle x-ray 3 views interpreted by myself shows no acute abnormality. Arthritis with joint space narrowing. No fracture or dislocation. No significant soft tissue swelling. Differential Diagnosis Differential Diagnosis: Arthritis versus gout versus infection. Clinically does not look infected. Clinically does not look like gout. Its not red. Its not swollen. Discharge Plan Triage Chief Complaint: Lower Extremity Injury ED Provider: Ashwin Valencai Dx/Rx/DC Orders Clinical Impression: Acute right ankle pain, Arthritis Instructions: ED Arthralgia, ED Osteoarthritis Prescriptions: New prednisone 20 mg tablet 40 mg PO DAILY 6 Days Qty: 12 0RF No Action methocarbamol 500 mg tablet 500 mg PO TID tramadol 50 mg tablet 50 mg PO Q6H PRN Cholecalciferol (Vitamin D3) [Vitamin D3] 5,000 UNIT capsule 2 tab PO DAILY prednisone 20 MG tablet 60 mg PO DAILY Qty: 9 0RF Primary Care Provider: Patt Jones Referrals: Patt Jones, [Primary Care Provider] - 3-5 Days if not improving Activity Restrictions/Additional Instructions: Ice and elevate your ankle to decrease pain and swelling. [place] for pain. Do not drive while taking the pain medication. Make sure you are drinking plenty of water and fruits and vegetables and fiber to prevent constipation. Prednisone 40 mg a day for the next 6 days starting on Monday. Follow-up with your doctor if not improving. Return if this gets red, real swollen, fever or you are feeling worse. At this time there is no signs of infection. Disposition Disposition: Home, Self Care What to do if you have Problems For any increased pain, shortness of breath, bleeding, nausea or vomiting, chest pain, or any unexpected problems, contact your Primary Care Provider. Call [facility] ([phone]) or report to the closest Emergency Room. Call 911 if necessary. 11/21/22 0354 <Electronically signed by Ashwin Valencia MD> Cosigner Signature (if applicable): CC: Dr. Patt Jones DO Signed Patt Jones DO Work Phone: Start: 11-21-2022 End: 11-21-2022 Ankle min 3 Views Procedure Note: See Note; NOTES: [facility] Imaging Services [address] [place] [address] Ankle min 3 Views MR#: [id number] Acct: [id number] Name: GUNJAN CONNELL Rep #: [id number] : 1955 F 67 From: Imelda Rowe PCP: Dr. Patt Jones DO Status: REG ER Study: Ankle min 3 Views Date of Exam: 11/21/22 Exam# [id number] Ordering Dr: Ashwin Valencia MD INDICATION: pain EXAMINATION/TECHNIQUE: X-RAY - RIGHT XR Ankle Min 3 Views 3 VIEWS COMPARISON: None. FINDINGS: BONES: No fracture demonstrated. Focal irregular lucency at the medial aspect of the talar dome suspicious for avascular necrosis versus degenerative change. Calcaneal spurs at the plantar and Achilles insertion sites. JOINTS: No dislocation. SOFT TISSUES: Mild soft tissue swelling overlying the lateral malleolus. RAD/Ankle min 3 Views IMPRESSION: No evidence of fracture. Avascular necrosis at the talar dome versus degenerative change. Electronically Signed: Imelda Manzo MD at 3:56 EDT , CC: Dr. Ashwin Valencia MD; Dr. Patt Jones DO [employer] Furn[employer] Operator: Signed Patt Jones DO Work Phone: Start: 11-21-2022 Radiography of ankle Start: 01-19-2022 Radiologic examination of knee Dr[address] Kalie Jones Work Phone: Start: 01-19-2022 End: 01-19-2022 Knee 3 Views Comments: See Note; NOTES: [facility] Radiology [address] [place] [address] Knee 3 Views MR#: [id number] Acct: [id number] Name: GUNJAN CONNELL Rep #: [id number] : 1955 F 66 From: Yovani Rowe PCP: Dr. Patt Jones DO Status: DEP AMB Study: Knee 3 Views Date of Exam: 01/19/22 Exam# [id number] Ordering Dr: Negro Johnson DO STUDY: XR Knee 3 Views 01/19/2022 5:50 PM REASON FOR EXAM: Female, 66 years old. right knee pain TECHNIQUE: XR Knee 3 Views RIGHT COMPARISON: None FINDINGS: Total right knee arthroplasty. Normal visualized proximal tibia and fibula. Normal proximal tibiofibular articulation. Normal medial femorotibial compartment. Normal lateral femorotibial compartment. Normal patellofemoral articulation. There are atherosclerotic calcifications. RAD/Knee 3 Views IMPRESSION: There are no acute findings. Electronically Signed: Yovani Herrera MD at 17:52 EDT Reading Location ID and State: [facility] / [place] , Service support , CC: Dr. Negro Johnson DO; Dr. Patt Jones DO [employer] Operator: Signed Patt Jones DO Work Phone: Start: 01-19-2022 End: 01-19-2022 Knee 4 or More Views Comments: See Note; NOTES: [facility] [address] [place] [address] Knee 4 or More Views MR#: [id number] Acct: [id number] Name: GUNJAN CONNELL Rep #: [id number] : 1955 F 66 From: Yovani Rowe PCP: Dr. Patt Jones DO Status: DEP AMB Study: Knee 4 or More Views Date of Exam: 01/19/22 Exam# [id number] Ordering Dr: Negro Johnson DO STUDY: XR Knee Complete 4 Views or More 01/19/2022 5:51 PM REASON FOR EXAM: Female, 66 years old. left knee pain chronic knee pain TECHNIQUE: XR Knee Complete 4 Views or More LEFT COMPARISON: 10/28/2020 FINDINGS: Normal visualized distal femur. Normal visualized proximal tibia and fibula. Normal proximal tibiofibular articulation. There is mild degenerative arthrosis of the medial femorotibial compartment. There is mild degenerative arthrosis of the lateral femorotibial compartment. There is mild degenerative arthrosis of the patellofemoral articulation. The soft tissue structures are unremarkable. RAD/Knee 4 or More Views IMPRESSION: Degenerative arthrosis. There is no change from prior Electronically Signed: Yovani Herrera MD at 17:53 EDT , CC: Dr. Negro Johnson DO; Dr. Patt Jones DO [employer] Operator: Signed Patt Jones DO Work Phone: Start: 01-19-2022 End: 01-19-2022 Orthopedic Visit Report Comments: See Note; NOTES: [facility] [place] [address] OFFICE VISIT Date of Service: 01/19/22 MR#: [id number] Acct: [id number] Name: GUNJAN CONNELL Rep #: [id number] : 1955 Provider: Dr. Negro baker DO Age/Sex: 66/F Location: [facility] [place] Status: Signed Intake Vital Signs 01/19/22 13:56 Height 4 ft 11 in Weight: 172 lb BMI 34.7 Intake Visit Reasons: Bilat knees Vaccine Key Customer Leader Required: No Accompanied by: self Is patient in pain?: Yes (bilateral knees) Pain scale (1-10): 4 Allergies No Known Allergies Allergy (Verified 01/19/22 13:56) Medications Cholecalciferol (Vitamin D3) [Vitamin D3] 2 tab PO DAILY 02/12/20 [History Confirmed 01/19/22] prednisone 60 mg PO DAILY #9 tablet 11/19/20 [Rx Confirmed 01/19/22] methocarbamol 500 mg tablet 500 mg PO TID 01/19/22 [History Confirmed 01/19/22] tramadol 50 mg tablet 50 mg PO Q6H PRN 01/19/22 [History Confirmed 01/19/22] PFSH Medical History Cochlear implant in place Hx of cataract Tonsillectomy planned Surgical History History of carpal tunnel release of both wrists Hx of arthroscopy of right knee Hx of cholecystectomy Hx of removal of cyst Social History Smoking Status: Never smoker HPI Bilat knees Details: Parts of this documentation were recorded by a scribe, this documentation accurately reflects the service provided and the decisions made by me, Dr. Negro Johnson DO 01/19/22 1341. GUNJAN CONNELL is a 66 year old F here today for bilateral knee pain. She reports a nerve conduction test that came back normal. Patient had known back issues and has injured it previously. Patient complains of numbness tingling down bilateral legs with burning. She did have an MRI of her lumbar spine and was seen by Dr. Beasley and no surgery was recommended. She had a right total knee arthroplasty CT guided Robotic Assisted on 02/27/2020. She received a steroid injection into her left knee on her last visit on 10/28/2020. She says it did help for a little while but has since worn off. Ortho Exam Right Knee Skin/Wound: No erythema, No ecchymosis and No swelling Homans Sign: No Knee ROM: Yes ROM-Extension -20 to 0 and No ROM-Flexion 0-140 (118) Examination: No Med jt line tenderness and No Lat jt line tenderness Stability: NML: Anterior Drawer, NML: Posterior Drawer, NML: Valgus 0, NML: Valgus 30, NML: Varus 0 and NML: Varus 30 Patella Translation: 1 Patella Grind: No KNEE: full extension no joint effusion no collateral instability 118 flexion edema mid leg oskar dermastasis starting Left Knee Skin/Wound: No ecchymosis, No erythema and No swelling Homans Sign: No Knee ROM: Yes ROM-Extension -20 to 0 and Yes ROM-Flexion 0-140 (88) Examination: Yes med jt line tenderness Stability: NML: Anterior Drawer, NML: Thomas, NML: Posterior Drawer, NML: Valgus 0, NML: Valgus 30 and NML: Varus 0 Patella Translation: 1 Patella Grind: Yes Supplemental Info 01/19/2022 x-ray right knee: Status post press-fit total knee arthroplasty with good interfaces no concerning signs 01/19/2022 x-ray left knee degenerative changes throughout worse patellofemoral patella franchesca unchanged 06/18/2021 MRI lumbar spine: multilevel compressive vertebral deformities. Extensive spondylosis. Multilevel foraminal stenosis worst at L5-S1 on the left 10/28/2020 x-ray right knee:Status post total knee arthroplasty with good implant positioning and interfaces 10/28/2020 x-ray left knee: Moderate medial And patellofemoral compartment arthrosis 01/22/2020 x-ray right knee Moderate tricompartmental arthrosis more severe patellofemoral joint. Joint space narrowing bone spurs subchondral sclerosis 01/22/2020 x-ray left knee: Mild to moderate arthrosis medial and patellofemoral compartments Coding Level of Care Code Off vis,est,level 3 Diagnoses Right knee pain M25.561 S/P total knee arthroplasty Z96.659 Left knee DJD M17.12 Lower extremity edema R60.0 Neuropathy G62.9 Compression fracture of body of thoracic vertebra S22.000A Compression fx, lumbar spine S32.000A Lumbar spondylosis M47.816 Assessment and Plan Assessment and Plan (1) Right knee pain: Status: Acute (2) S/P total knee arthroplasty: Status: Acute (3) Left knee DJD: Status: Acute (4) Lower extremity edema: Status: Acute (5) Neuropathy: Status: Acute (6) Compression fracture of body of thoracic vertebra: Status: Acute (7) Compression fx, lumbar spine: Status: Acute (8) Lumbar spondylosis: Status: Acute Orders: Orders: Knee 3 Views Today M25.561 Plan - Dr. Negro Johnson, DO: Patient's worst symptoms are related to her neuropathy these are the most significant for her numbness tingling and burning in lower and upper extremities. To recall she has advanced vertebral compression fractures and spondylosis in her spine and lower extremity radiculitis she is seen Dr. Dumont and is not a surgical candidate she has seen pain management for injections and does not feel these help. She has tried lumbar bracing without much relief we discussed nerve pain medications such as Neurontin to discuss with her primary care physician. In regards to her right knee there is no signs of infection blood clot or loosening. In regards to her left knee she does have DJD worse at the patellofemoral joint we discussed further injection therapy bracing physical therapy, tka. She does not wish to proceed with any of these at this point. Follow up PRN or sooner if pain, swelling, numbness or associated symptoms, or concerns develop. All questions answered. Patient in agreement of plan. Plan Details Other Orders: Orders: Knee 4 or More Views Today M25.562 01/19/22 4065 <Electronically signed by Negro Johnson DO> Date Negro Johnson DO Cosigner Signature: Date (if applicable) CC: DO Patt Fernandez DO Work Phone: Start: 11-24-2021 End: 11-24-2021 NCS and/or EMG Patient Comments: See Note; NOTES: [facility] Pulmonary Services/Neurology [address] [place] [address] MR#: [id number] Acct: [id number] Name: GUNJAN CONNELL Rep #: [id number] : 1955 66 From: Vivian Laboy MD Referring Dr: Manisha Navas MD Status: REG CLI Location: PSN Date: 11/24/21 Sex: F C NCS and/or EMG Patient Report Ordering Doctor: Manisha Navas DATE OF SERVICE: 11/24/21 Gunjan presents for electrodiagnostic testing of the upper limbs. She reports numbness and tingling in both hands. She has a history of bilateral carpal tunnel repair in 2000. Electrodiagnostic findings: Median motor nerve demonstrates normal distal latency, amplitude and conduction velocity bilaterally. Normal ulnar motor response bilaterally. Normal median ulnar F waves. Sensory responses are within normal limits. On needle EMG, all muscles tested in the upper limbs showed no evidence of denervation with normal motor unit action potentials. Electrodiagnostic impression: This is a normal electrodiagnostic study in the upper limbs. There is no electrodiagnostic evidence for peripheral neuropathy, including carpal tunnel syndrome. There is no electrodiagnostic evidence for cervical radiculopathy. 11/24/211321 <Electronically signed by Vivian Laboy MD> Date Vivian Laboy MD CC: Dr. Vivian Laboy MD; Dr. Patt Jones DO; Dr. Manisha Navas MD Date Dictated: 031320 Date Transcribed: 11/24/211320 [employer] Operator: REINA Signed Patt Jones DO Work Phone: Start: 07-15-2021 End: 07-15-2021 Cerv Spine 2 or 3 Views Comments: See Note; NOTES: [facility] Imaging Services [address] [place] [address] Cerv Spine 2 or 3 Views MR#: [id number] Acct: [id number] Name: GUNJAN CONNELL Rep #: [id number] : 1955 F 66 From: Blanca Rios MD PCP: Dr. Patt Jones DO Status: REG ER Study: Cerv Spine 2 or 3 Views Date of Exam: 07/15/21 Exam# [id number] Ordering Dr: Perry Stern DO STUDY: X-RAY - CERVICAL SPINE REASON FOR EXAM: Female, 66 years old. neck pain TECHNIQUE: 3 view(s) of the cervical spine were obtained. COMPARISON: None FINDINGS: There is straightening of the normal cervical lordosis. There is multi-level endplate spondylosis. There is multi-level degenerative disc disease with multilevel disc space narrowing. The soft tissue structures are unremarkable. RAD/Cerv Spine 2 or 3 Views IMPRESSION: Degenerative changes of the spine. Electronically Signed: Blanca Rios MD at 10:26 EST Tel , Service support , CC: Dr. Patt Jones DO; Dr. Perry Stern DO [employer] Operator: Signed Patt Jones DO Work Phone: Start: 07-15-2021 End: 07-15-2021 Emergency Department Summary Comments: See Note; NOTES: [facility] Medical Records Department [address] [place] [address] Emergency Department Summary 07/15/21 MR#: [id number] Acct: [id number] Name: GUNJAN CONNELL Rep #: [id number] : 1955 66 From: Perry Stern DO PCP: Dr. Patt Jonse DO Status:DEP ER Location: ED HPI History of Present Illness Chief Complaint: Other, Pain/Inj Detail of Chief Complaint: Neck and back pain Informant: patient Narrative Narrative: Patient presents to the emergency department complaint of neck and back pain that became more severe over the last 36 hours. Patient states that she was using a heavy mop to mop her floors 4 days ago and she believes that is what triggered her discomfort. She has had no fall or injury otherwise. Patient describes pain mostly in the neck and across her shoulders. She denies any pain radiating to her arms or legs. Patient is in pain management and is being treated for chronic pain related to arthritis. Patient states that she seen a back surgeon and was told that they could not help her because of all the severe degenerative changes in her back. Patient denies fever or recent illness. She rates her pain a 10 out of 10. Patient states pain is positional and worse with certain movements of her arms or neck. Patient denies any weakness in the arms or legs. Patient has chronic numbness in her hands. [facility] Medical History (Updated 07/15/21 @ 11:[address] Perry Stern DO) Cochlear implant in place Hx of cataract Tonsillectomy planned Home Medications Cholecalciferol (Vitamin D3) [Vitamin D3] 2 tab PO DAILY 02/12/20 [History Last Taken Unknown] apple cider vinegar 600 mg capsule mg PO 10/28/20 [History Last Taken Unknown] calcium carbonate 500 mg calcium (1,250 mg) tablet 500 mg PO DAILY 10/28/20 [History Last Taken Unknown] Tumeric 1 tab PO DAILY 11/19/20 [History Last Taken Unknown] prednisone 60 mg PO DAILY #9 tablet 11/19/20 [Rx Last Taken Unknown] tizanidine [Zanaflex] 4 mg PO QHS PRN #14 cap 07/15/21 [Rx Last Taken Unknown] Allergy/AdvReac Type Severity Reaction Status Date / Time No Known Allergies Allergy Verified 07/15/21 08:50 Surgical History History of carpal tunnel release of both wrists Hx of arthroscopy of right knee Hx of cholecystectomy Hx of removal of cyst Social History (Updated 10/28/20 @ 12:[address] Negro Johnson, DO) Smoking Status: Never smoker ROS ROS ED Constitutional Constitutional ED: Reports systems reviewed and no addt'l complaints, except as documented; Denies body ache(s), change in weight or chills Eyes Eyes: Denies acute decrease in peripheral vision, change in vision, double vision or loss of vision ENT ENT ED: Reports none; Denies ear pain, lip swelling, loss taste/smell, neck pain, otalgia or sore throat Cardiovascular Cardiovascular: Reports none; Denies abdominal pain, chest pain with activity, leg edema, lightheadedness, palpitations, rapid heart rate or syncope Respiratory/Chest Respiratory/Chest: Reports none; Denies change in mental status, dry cough, dyspnea, hemoptysis, shortness of breath at rest or shortness of breath with exertion Gastrointestinal Gastrointestinal: Reports none; Denies abdominal pain, change in stool character, diarrhea, hematemesis, hematochezia, melena, rectal bleeding or vomiting Genitourinary Genitourinary ED: Reports none; Denies abdominal discomfort, anuria, dysuria, genital pain or polyuria Musculoskeletal Musculoskeletal: Reports none, back pain and neck pain; Denies arthralgias, difficulty walking, extremity pain, muscle weakness or myalgias Integumentary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 10-28-2020 Knee 4 or More Views Comments: See Note; NOTES: [facility] Radiology [address] [place] [address] Knee 4 or More Views MR#: [id number] Acct: [id number] Name: GUNJAN CONNELL Rep #: [id number] : 1955 From: Richard Rowe PCP: Dr. Patt Jones DO Status: DEP AMB Study: Knee 4 or More Views Date of Exam: 10/28/20 Exam# [id number] Ordering Dr: Negro Johnson DO STUDY: X-RAY - LEFT KNEE REASON FOR EXAM: Left knee pain. TECHNIQUE: 4 view(s) of the knee. COMPARISON: Radiographs 01/22/2020. FINDINGS: There is osteopenia. Normal visualized distal femur. Normal visualized proximal tibia and fibula. Normal proximal tibiofibular articulation. There are small marginal osteophytes and mild joint space narrowing of the medial femorotibial compartment. Normal lateral femorotibial compartment. There are small marginal osteophytes and mild joint space narrowing of the patellofemoral articulation. There is a small joint effusion. RAD/Knee 4 or More Views IMPRESSION: Mild arthrosis of the medial femorotibial and patellofemoral compartments. Small joint effusion. Electronically Signed: Richard Slater MD at 14:22 EST Tel , Service support , CC: Dr. Negro Johnson DO; Dr. Patt Jones DO Annealing Furnace Operator: Signed Patt Jones Start: 10-28-2020 End: 10-28-2020 L/S Spine Min 4 Views Comments: See Note; NOTES: [facility] Radiology [address] [place] [address] L/S Spine Min 4 Views MR#: [id number] Acct: [id number] Name: GUNJAN CONNELL Rep #: [id number] : 1955 F 65 From: Johan Tejada MD PCP: Dr. Patt Jones DO Status: DEP AMB Study: L/S Spine Min 4 Views Date of Exam: 10/28/20 Exam# [id number] Ordering Dr: Negro Johnson DO STUDY: X-RAY - LUMBAR SPINE REASON FOR EXAM: Female, 65 years old. BILATERAL KNEE PAIN LEFT WORSE THAN RIGHT TECHNIQUE: 4 view(s) of the lumbar spine were obtained. COMPARISON: 01/22/2013, CT 03/22/2020 FINDINGS: Normal lumbar lordosis. Mild dextro scoliosis centered at L2/L3. There is a normal alignment of the vertebrae. No subluxation on the flexion or extension views to suggest instability. No change in the chronic wedge compression fractures of T12, L2, and L5 with 5 mm retropulsion of the superior endplate of L5 and the spinal canal producing moderate spinal stenosis. Normal disc space heights. Facet hypertrophy consistent with degenerative disc disease. The soft tissue structures are unremarkable. RAD/L/S Spine Min 4 Views IMPRESSION: 1. No change in chronic wedge compression fractures of T12, L2, and L5. 2. Mild dextro scoliosis with diffuse degenerative disc disease. 3. No instability. Electronically Signed: Johan Tejada MD at 12:20 EST Tel , Service support , CC: Dr. Negro Johnson DO; Dr. Patt Jones DO Annealing Furnace Operator: Signed Patt Jones Start: 10-28-2020 End: 10-28-2020 Orthopedic Visit Report Comments: See Note; NOTES: [facility] [address] [place] [address] OFFICE VISIT Date of Service: 10/28/20 MR#: [id number] Acct: [id number] Name: GUNJAN CONNELL Rep #: [id number] : 1955 Provider: Dr. Negro baker DO Age/Sex: 65/F Location: [facility] [place] Status: Signed Intake Intake Visit Reasons: RIGHT KNEE Is patient in pain?: Yes Allergies No Known Allergies Allergy (Verified 10/28/20 11:07) Medications Cholecalciferol (Vitamin D3) [Vitamin D3] 2 tab PO DAILY 02/12/20 [History Confirmed 10/28/20] apple cider vinegar 600 mg capsule mg PO 10/28/20 [History Confirmed 10/28/20] calcium carbonate 500 mg calcium (1,250 mg) tablet 500 mg PO DAILY 10/28/20 [History Confirmed 10/28/20] PFSH Social History (Updated 10/28/20 @ 12:[address] Negro Johnson DO) Smoking Status: Never smoker HPI RIGHT KNEE: Details: Parts of this documentation were recorded by a scribe, this documentation accurately reflects the service provided and the decisions made by me, Dr. Negro Johnson, DO 10/28/20 9985. GUNJAN CONNELL is a 65 year old F here today for bilateral knee pain. She had a Right total knee arthroplasty CT guided Robotic Assisted on 02/27/20. Patient states that she continues to have knee pain over her anterior knee, and into her foot. She has numbness over her lateral knee. She describes her pain from her knee into her foot in her bilateral legs as a burning pain. Patient notes that she has warmth into her knee. Patient had known back issues and has injured it previously. Patient has numbness into her feet at times. Patient notes that she has popping and clicking within her knees, especially in her right knee. Patient notes that she had relief after surgery and then her pain increased, but she states that her pain never fully went away. She doesnt sleep at night due to her knee pain. Patient puts vicks on her knees to help her sleep. Patient takes ibuprofen for pain which isnt helpful. She denies any injections into her left knee. [facility] Reports joint pain, Reports tingling Skin/Breast Reports system reviewed and no additional complaints, except as docu Neuro Yes tingling Ortho Exam General General: Yes no acute distress Neurologic: Yes alert Right Knee Skin/Wound: Yes healed, No erythema, No ecchymosis, No swelling Homans Sign: No Knee ROM: Yes ROM-Extension -20 to 0 (full), Yes ROM-Flexion 0-140 (110) Patella Translation: 1 KNEE: edema b/l lower extremities that is mild but tender to palpation1/4 pedal pulse bilaterally. 2/4 achilles b/l 2/4 right patellar and 3/4 left patellar. Left Knee Skin/Wound: Yes CDI, No ecchymosis, No erythema, No swelling Knee ROM: Yes ROM-Extension -20 to 0, Yes ROM-Flexion 0-140 (100) Examination: Yes med jt line tenderness Stability: NML: Anterior Drawer, NML: Posterior Drawer, NML: Valgus 30, NML: Varus 30 Patella Translation: 1 Patella Grind: Yes KNEE: 5/5 bilateral ankle strength, hyper-reflexive left patellar, 2/4 right patellar reflex, 2/4 achilles bilaterally reflex. Office Procedures Depo-Medrol 40 mg/mL suspension for injection (methylprednisolone acetate) 40 mg intra-articular ONCE Injections Yes Knee Left Details: Obtained consent for injection. Under sterile conditions, injected the patient's left knee with 2cc bupivacaine, 2cc lidocaine and 1cc depomedrol. The patient tolerated the injection well without any noted complication. Patient should call our office if redness develops, pain worsens or if they have any concerns. Office Meds Depo-Medrol Performing Provider: Negro Johnson DO Administered by: Negro Johnson DO on 10/28/20 11:45 Dose Route Admin Location Lot Number Expiration Date NDC Manufactu rer 40 mg intra-articular left knee [id number] 12/03/21 5891-4103-55 [employer] Supplemental Info 10/28/2020 x-ray right knee:Status post total knee arthroplasty with good implant positioning and interfaces 10/28/2020 x-ray left knee: Moderate medial And patellofemoral compartment arthrosis 01/22/2020 x-ray right kneeModerate tricompartmental arthrosis more severe patellofemoral jointJoint space narrowing bone spurs subchondral sclerosis 01/22/2020 x-ray left knee: Mild to moderate arthrosis medial and patellofemoral compartments Assessment Plan Problems 1. Primary osteoarthritis of left knee M17.12 2. Edema, lower extremity R60.0 3. Compression fracture 4. Lumbar radiculopathy M54.16 Plan Spoke with the patient about the total knee arthroplasty and the numbness over her lateral knee is normal, and it will continue to improve. Recommended the patient wear compression stockings due to her lower leg swelling. Recommended she talk with her PCP about her swelling. Explained she has left knee osteoarthritis and she would be a candidate for a steroid injection. Patient agreed to an steroid injection. She also has multiple compression fractures. Gave the patient a script for physical therapy. If she does not have relief with physical therapy, she may need an MRI and a referral to pain management. She already wears a lumbar corset which is helpful Follow up on an as needed basis or sooner if pain, swelling, numbness or associated symptoms, or concerns develop. All questions answered. Patient in agreement of plan. 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 Patt Jones, DO Status:REG ER History of Present Illness Informant: Patient Onset: Yesterday Context: Gradual Onset Timing: Continuous Quality: sharp Location: right ear Current Severity: Severe Maximum Severity: Severe Worsened by: movement Relieved by: nothing Associated Symptoms: denies Narrative: 65-year-old female presents with right ear pain. She has cochlear implants. She was trying to clean earwax out of her ears. Yesterday she poured peroxide in her ears and then used of a hairpin to clean out her ear and she woke up this morning with severe right ear pain. No drainage or fevers. No tinnitus. No headache or neck pain. She is not lightheaded or dizzy. Rest of review of systems are negative. She did not do the same to the left ear Prior similar symptoms: No Recent Illness/Hospitalization: No <Phill Vasquez - Last Filed: 07/12/20 10:14> <Ramu Romero - Last Filed: 07/12/20 10:28> Chief Complaint: Ear Problem Past Medical History Prior records reviewed: Yes Past Medical History: - - Cochlear implants Surgical History: noncontributory Smoking Status: Never smoker <Phill Vasquez - Last Filed: 07/12/20 10:14> <Ramu Romero - Last Filed: 07/12/20 10:28> - Allergies and Home Meds Allergies/Adverse Reactions: Allergies No Known Allergies Allergy (Verified 07/12/20 09:43) Primary Care Physician: Oliver France MD [STAFF PHYSICIAN] - As soon as possible Patt Jones DO [Primary Care Provider] - Review of Systems All systems negative except as indicated General: Denies: Chills, Fever, Sweats Eyes: Denies: Visual changes - bilaterally, Diplopia ENT: Reports: Right ear pain. Denies: Rhinorrhea, Sore throat Cardiovascular: Denies: Chest pain, Palpitations Respiratory: Denies: Dyspnea, Cough, Dyspnea on exertion Gastrointestinal: Denies: Abdominal pain, Nausea, Vomiting, Diarrhea, Melena, Hematochezia Genitourinary: Denies: Dysuria, Hematuria, Frequency Musculoskeletal: Denies: Back pain, Extremity Pain Skin: Denies: Rash, Wounds Neurological: Denies: Headache, Weakness, Numbness <Phill Vasquez - Last Filed: 07/12/20 10:14> Physical Exam Vital Signs/Narrative: Vital Signs Temp Pulse Resp BP Pulse Ox 07/12/20 09:40 97.8 F 110 H 20 H 144/79 H 99 Inital Vital Signs reviewed: Yes General: Well nourished, Well developed, No Acute Distress Head: Normocephalic, Atraumatic Eyes: Perrl, EOMI ENT: Moist mucous membranes, No rhinorrhea, - - Patient has a right otitis externa it is swollen it is erythematous there is purulent drainage. She does have pain with movement of the tragus. No mastoid tenderness or redness. Normal tympanic membrane. Normal left ear normal left ear canal normal left tympanic membrane Neck: Supple, Nontender Cardiovascular: Regular rate, Regular rhythm, No murmurs Respiratory: No distress, CTA bilaterally, Chest nontender Abdomen: Soft, Nontender, Nondistended, Normal bowel sounds Back: Nontender, Normal Inspection Extremities: Nontender, No edema Skin: Normal color, No rash Neurological: Alert, Oriented x3, Cranial nerves II-XII grossly intact, Normal Strength, Normal Sensation Psychological: Normal affect, Normal Mood <Phill Vasquez - Last Filed: 07/12/20 10:14> Vital Signs/Narrative: Vital Signs Temp Pulse Resp BP Pulse Ox 07/12/20 09:40 97.8 F 110 H 20 H 144/79 H 99 <Ramu Romero - Last Filed: 07/12/20 10:28> Diagnostic/Tx/Re-eval - Medical Decision Making Patient has a right otitis externa. No mastoid tenderness or redness. Will place on Cortisporin otic. Advised her to follow-up closely with her ENT physician. Return precautions given. She was agreeable with plan of care and all questions answered. <Phill Vasquez - Last Filed: 07/12/20 10:14> - Medical Decision Making Seen and evaluated independently and in conjunction with physician assistant technician. Agree with notes above unless documented otherwise. Patient is well-appearing and nontoxic. She does have a concerning exam of the right external auditory canal, there certainly is infectious material present in the canal, which is patent but edematous. I am not able to visualize the tympanic membrane as a result. She does have pain with manipulation of the pinna and tragus which are otherwise unremarkable. She is very hard of hearing. Her other ear is normal-appearing except for what appears to be a chronic perforation without any discharge or signs of infection and she states that 1 is not bothering her but she is hard of hearing there. We recommend outpatient follow-up with otolaryngology and she is agreeable. <Ramu Romero - Last Filed: 07/12/20 10:28> ED Disposition <Phill Vasquez - Last Filed: 07/12/20 10:14> <Ramu Romero - Last Filed: 07/12/20 10:28> - Plan for ED Patient: Disposition: Home or Assisted Living Diagnosis: Otitis externa Instructions: ED Otitis Externa Prescriptions: Neomyc/Colist/Hydrocort/T honzn [Cortisporin-Tc Ear Suspension] 10 ml OT TID #1 drops.susp Transmission Status: Received by [id number] Referrals: Patt Jones DO [Primary Care Provider] - Oliver France MD [STAFF PHYSICIAN] - As soon as possible What to do if you have Problems For any increased pain, shortness of breath, bleeding, nausea or vomiting, chest pain, or any unexpected problems, contact your Primary Care Provider. Call [facility] ([phone]) or report to the closest Emergency Room. Call 911 if necessary. 07/12/20 1015 <Electronically signed by Phill JIMENEZ PA> Date Phill JIMENEZ 07/12/20 1028<Electronically signed by Ramu Romero MD> Cosigner Signature (If Indicated): Date Ramu Romero MD CC: DO Patt Fernandez Start: 05-22-2020 End: 05-22-2020 PT D/C of Non Returning Pt (1) Comments: See Note; NOTES: [facility] Physical Therapy Health[address] [place] [address] / REHABILITATION SERVICES DISCHARGE SUMMARY MR#: [id number] Acct: [id number] Name: GUNJAN CONNELL Rep #: [id number] : 1955 65 From: Kimberli FAIR Referring DrMichelle: Dr. Negro Johnson DO Status: R EG RCR Insurance: [employer]ANCE GUNJAN CONNELL was seen in my office for initial evaluation on 02/28/20. The following Plan of Care was established for this patient: Initial Frequency: 3x /Week Initial Duration: 2 Months Patient/Client Instruction: Educate patient on: Condition, Plan of Care For the Purpose of:: To decrease pain, To decrease swelling/inflammation, To increase ROM, To improve nutrient delivery to tissue, To improve muscle performance and motor function, To improve ability to perform ADL's, To increase tolerance to activity/condition/positi on, To improve performance and independence with ADL's, To decrease level of supervision to perform tasks, To improve ability of physical actions for home/community/work/leisu re, To improve gait and locomotor functions, To improve health of tissue, To decrease soft tissue restriction, To increase flexibility/ROM Therapeutic Exercise to Include: Strength training, Flexibilty training, Gait and locomotor training, Passive ROM, Active ROM For the Purpose of:: To decrease pain, To decrease swelling/inflammation, To increase ROM, To improve nutrient delivery to tissue, To improve muscle performance and motor function, To improve ability to perform ADL's, To increase tolerance to activity/condition/positi on, To improve performance and independence with ADL's, To decrease level of supervision to perform tasks, To improve ability of physical actions for home/community/work/leisu re, To improve gait and locomotor functions, To improve health of tissue, To decrease soft tissue restriction, To increase flexibility/ROM Functional Training to Include: Gait training For the Purpose of:: To improve gait and locomotor functions Manual Therapy Techniques to Include: Mobilization, Passive ROM For the Purpose of:: To increase ROM, To improve nutrient delivery to tissue Cryotherapy (ice pack, ice massage): Yes For the Purpose of:: To decrease pain, To decrease swelling/inflammation This patient was last seen in our office 03/30/20. Pertinent comments regarding their Physical therapy will appear below: MARYANA PT At this point I will be discontinuing this patient from physical therapy. I would be happy to see this patient again in the future if found appropriate by the physician. Thank you! MARV Horn <Electronically signed by Kimberli FAIR> 05/22/20 9052 CC: Dr. Negro Johnson DO; Dr. Patt Jones DO Signed Patt Jones Start: 04-13-2020 End: 04-13-2020 Orthopedic Visit Report Comments: See Note; NOTES: [facility] [address] [place] [address] OFFICE VISIT Date of Service: 04/13/20 MR#: [id number] Acct: [id number] Name: GUNJAN CONNELL Rep #: [id number] : 1955 Provider: Dr. Negro baker DO Age/Sex: 65/F Location: [facility] [place] Status: Signed Intake Intake Visit Reasons: RIGHT KNEE Allergies No Known Allergies Allergy (Verified 03/22/20 09:49) PFSH Social History (Updated 04/13/20 @ 14:[address] Negro Johnson DO) Smoking Status: Never smoker HPI RIGHT KNEE: Details: Parts of this documentation were recorded by a scribe, this documentation accurately reflects the service provided and the decisions made by me, Dr. Negro Johnson DO 04/13/20 0751. GUNJAN CONNELL is a 65 year old F here today for 7 week post op from right TKA. Patient has full extension and is to about 95 with flexion and she has the same flexion of the left knee. States she still has occasional pain. States that the pain at night is worse and she is still taking oxycodone at night to aid in sleep. Denies numbness, tingling or other associated symptoms. ROS Const Denies weakness Musc Denies joint pain, Reports joint swelling, Reports limited joint movement, Denies numbness, Denies radiating pain into limb, Reports stiffness, Denies tingling Skin/Breast Denies redness, Denies lesions, Denies itching, Denies rash, Denies skin swelling Neuro No numbness, No tingling, No weakness Ortho Exam Right Knee Date of Surgery: 02/27/20 Skin/Wound: Yes healed, No erythema, No ecchymosis, No swelling Homans Sign: No 1+: Effusion Knee ROM: Yes ROM-Extension -20 to 0, No ROM-Flexion 0-140 (100) Stability: NML: Anterior Drawer, NML: Posterior Drawer, NML: Valgus 30, NML: Varus 30 Patella Translation: 1 KNEE: no s/sx of infection Left Knee Knee ROM: No ROM-Flexion 0-140 (100) Patella Translation: 1 Supplemental Info 01/22/2020 x-ray right kneeModerate tricompartmental arthrosis more severe patellofemoral jointJoint space narrowing bone spurs subchondral sclerosis 01/22/2020 x-ray left knee: Mild to moderate arthrosis medial and patellofemoral compartments Assessment Plan Problems 1. Orthopedic aftercare Z47.89 Plan Educated that she still has room for improvement with flexion of the right knee but if she is happy with the flexion we will not need to have the manipulation if she doesn't want to do so. Educated that by 3 months she will likely be happy that she has had the replacement. She had been doing PT here at [facility]. Recommended additional PT for ROM. Recommended taking Mobic which we will send into pharmacy today. Follow up in 6 weeks or sooner if pain, swelling, numbness or associated symptoms, or concerns develop. All questions answered. Patient in agreement of plan. Coding Level of Care Code Global Post Op Diagnoses Orthopedic aftercare Z47.89 04/13/20 1403 <Electronically signed by Negro Johnson DO> Date Negro Johnson DO Cosigner Signature: Date (if applicable) CC: Patt Jones Start: 03-22-2020 End: 03-22-2020 Discharge Instruction Comments: See Note; NOTES: [facility] Medical Records Department [address] [place] [id number] Discharge Instruction 03/22/20 MR#: [id number] Acct: [id number] Name: GUNJAN CONNELL Rep #: [id number] : 1955 65 From: Perry Stern DO PCP: Dr. Patt Jones DO Status:PRE ER ED Disposition - Plan for ED Patient: Instructions: ED Spasm Back No Trauma, ED LUMBAR SPRAIN/STRAIN Prescriptions: Diazepam [Valium] 2 mg PO TID PRN PRN #20 tablet PRN Reason: Vertigo Transmission Status: Received by [facility]/pharmacy #[id number] Referrals: Patt Jones DO [Primary Care Provider] - 3-5 Days What to do if you have Problems For any increased pain, shortness of breath, bleeding, nausea or vomiting, chest pain, or any unexpected problems, contact your Primary Care Provider. Call [facility] ([phone]) or report to the closest Emergency Room. Call 911 if necessary. 03/22/20 1200 <Electronically signed by Perry Stern DO> Date Perry Stern DO Cosigner Signature (If Indicated): Date CC: DO Patt Fernandez Start: 03-22-2020 End: 03-22-2020 Emergency Department Summary Comments: See Note; NOTES: [facility] Medical Records Department [address] [place] [address] Emergency Department Summary 03/22/20 MR#: [id number] Acct: [id number] Name: GUNJAN CONNELL Rep #: [id number] : 1955 65 From: Perry Stern DO PCP: Dr. Patt Jones DO Status:DEP ER - ER Visit Summary Date of Service: 03/22/20 Chief Complaint: [Back pain] History of Present Illness: The patient is a 65 F [presents the emergency department complaint of back pain for about a week. Patient describes pain in her lower back. She is had no trauma. Patient states that she had a right knee replacement 3 weeks ago and has been walking with a walker. She denies any pain rating down her legs. She denies change in bowel or bladder function. She denies weakness in extremities. Patient had been on Eliquis for 2 weeks but finished it about a week ago. She denies any chest pain or shortness of breath. She states the pain is definitely worse with movement. She denies any dysuria although she has had some frequency yesterday that she attributed to drinking water. She is not had any fevers or recent illness.] Physical Examination: [HEENT-PERRLA, EOMI. Cranial nerves II through XII grossly intact. TMs clear. Mucous membranes moist. No adenopathy. Cardiovascular-regular rate and rhythm without murmur or ectopy Lungs-clear to auscultation, chest wall stable without crepitus or subcu emphysema Abdomen-normoactive bowel sounds, soft. Patient has some mild diffuse tenderness over the lower abdomen. There is no rebound, rigidity, or peritoneal signs. Back exam-patient has no real tenderness on exam of her back. She is not tender over the paraspinal musculatures or the lumbar or thoracic spine. She has negative straight leg raises. Deep tendon reflexes are plus 2 out of 4 bilaterally at the patella and Achilles. Patient has normal 5 extension bilaterally. Patient has normal sensation to light touch. Extremities-intact ???4, normal range of motion, normal pulses, atraumatic] Test Results: [CBC with differential was normal. Chemistries unremarkable. Urinalysis was normal. CT scan of the abdomen pelvis with IV contrast obtained was read by radiology as diverticulosis and degenerative changes of the spine with compression fractures at T12, L2, L4, and L5. Patient does have history of prior back injury that required her to be in a brace for 3 months. I do not feel her fractures are new as she is had no recent injury or trauma.] Emergency Department Course and Treatment: [She received morphine and Valium in the emergency department. She did feel improved.] Treatment Plan: [Patient to continue with her oxycodone as she did receive a prescription of 56 tablets recently. Patient will be given a prescription for Valium. I suspect her pain is likely muscular from compensating for her recent right knee surgery and walking with a walker.] Disposition: [Discharged home in stable condition.] Impression: [Lumbar strain] This note was generated with SNTMNT dictation software. It may contain incorrect words, spelling, and punctuation that were not noted in review of the chart prior to signing ED Disposition - Plan for ED Patient: Referrals: Patt Jones, DO [Primary Care Provider] - What to do if you have Problems For any increased pain, shortness of breath, bleeding, nausea or vomiting, chest pain, or any unexpected problems, contact your Primary Care Provider. Call [facility] ([phone]) or report to the closest Emergency Room. Call 911 if necessary. 03/22/202206 <Electronically signed by Perry Stern DO> Date Perry Stern DO Cosigner Signature (If Indicated): Date CC: DO Patt Fernandez Start: 03-22-2020 End: 03-22-2020 Abdomen/Pelvis WITH Contrast Comments: See Note; NOTES: [facility] Imaging Services [address] [place] [address] Abdomen/Pelvis WITH Contrast MR#: [id number] Acct: [id number] Name: GUNJAN CONNELL Rep #: [id number] : 1955 F 65 From: Ramu Thakur MD PCP: Dr. Patt Jones, Status: PRE ER Study: Abdomen/Pelvis WITH Contrast Date of Exam: Exam# [id number] Ordering Dr: Perry Stern DO STUDY: CT ABDOMEN AND PELVIS WITH CONTRAST REASON FOR EXAM: Female, 65 years old. PT STATES KIDNEY INFECTION, LBP, RECENT KNEE SURG, DIARRHEA FROM PAIN MEDS, MANPREET, HYSTER RADIATION DOSAGE (If Supplied By Facility): CTDIvol = ( 15.86 ) mGy, DLP = ( 898.8 ) mGycm TECHNIQUE: Transaxial images were obtained from the dome of the diaphragm to the symphysis pubis without oral contrast. IV 100mL Isovue-370 was administered. Sagittal and coronal images were reconstructed. Individualized dose optimization techniques were used for this CT. COMPARISON: November 01, 2014. FINDINGS: The visualized lung bases are unremarkable. The visualized portions of the heart are within normal limits. Hypodensities with small cysts in the liver. There are surgical clips in the gallbladder fossa consistent with a prior cholecystectomy. Normal spleen. Normal pancreas. Normal bilateral adrenal glands. Normal right kidney. There are parapelvic cysts of the left kidney. Normal visualized stomach. Normal small intestine. There are multiple colonic diverticula consistent with diverticulosis. There is non-visualization of the appendix. There is diffuse atherosclerotic calcification of the abdominal aorta, without a demonstrated aneurysm. Normal inferior vena cava. Normal retroperitoneum. Normal urinary bladder. There is absence of the uterus consistent with a prior hysterectomy. There is no free fluid in the abdomen or pelvis. Normal abdominal wall. Degenerative change of the spine. Compression fractures of T12, L2, L4, and L5. CT/Abdomen/Pelvis WITH Contrast IMPRESSION: Colonic diverticulosis. No obstruction. No hydronephrosis. Postoperative change. Electronically Signed: Ramu Thakur MD at 11:43 EDT , Service support , CC: Dr. Patt Jones DO; Dr. Perry Stern DO Annealing Furnace Operator: Signed Patt Jones Start: 03-13-2020 End: 03-13-2020 Orthopedic Visit Report Comments: See Note; NOTES: [facility] [address] [place] [address] OFFICE VISIT Date of Service: 03/13/20 MR#: [id number] Acct: [id number] Name: GUNJAN CONNELL Rep #: [id number] : 1955 Provider: Dr. Negro baker DO Age/Sex: 65/F Location: [facility] [place] Status: Signed Intake Intake Visit Reasons: RIGHT KNEE Allergies No Known Allergies Allergy (Verified 02/27/20 07:19) [facility] Social History (Updated 03/13/20 @ 12:[address] Negro Johnson DO) Smoking Status: Never smoker HPI RIGHT KNEE: Details: Parts of this documentation were recorded by a scribe, this documentation accurately reflects the service provided and the decisions made by me, Dr. Negro Johnson, 03/13/20 0750. GUNJAN CONNELL is a 65 year old F here today for 2-week follow-upRight total knee. She is having pain and swelling however it is improved since last visit she is in physical therapy. Ortho Exam Right Knee Skin/Wound: No erythema, No ecchymosis, No swelling Contralateral Normal: No Homans Sign: No Knee ROM: Yes ROM-Extension -20 to 0, No ROM-Flexion 0-140 (80) Examination: Yes Med jt line tenderness Supplemental Info 01/22/2020 x-ray right kneeModerate tricompartmental arthrosis more severe patellofemoral jointJoint space narrowing bone spurs subchondral sclerosis 01/22/2020 x-ray left knee: Mild to moderate arthrosis medial and patellofemoral compartments Assessment Plan Problems 1. Bilateral primary osteoarthritis of knee M17.0 2. Orthopedic aftercare Z47.89 Plan Patient is progressing her he were removed today she will continue physical therapy she will call if she needs any further pain medication she will follow-up in 4 weeks. Coding Level of Care Code Global Post Op Diagnoses Bilateral primary osteoarthritis of knee M17.0 Orthopedic aftercare Z47.89 03/13/20 1213 <Electronically signed by Negro Johnson DO> Date Negro Johnson DO Cosigner Signature: Date (if applicable) CC: Patt Jones Start: 03-09-2020 End: 03-09-2020 Knee 4 or More Views Comments: See Note; NOTES: [facility] Imaging Services [address] [place] [address] Knee 4 or More Views MR#: [id number] Acct: [id number] Name: GUNJAN CONNELL Rep #: [id number] : 1955 F 65 From: Mega block MD PCP: Dr. Patt Jones DO Status: REG CLI Study: Knee 4 or More Views Date of Exam: 03/09/20 Exam# [id number] Ordering Dr: Negro Johnson DO STUDY: X-RAY - RIGHT KNEE REASON FOR EXAM: Female, 65 years old. POST OP TECHNIQUE: 4 view(s) of the knee. COMPARISON: 02/27/2020 FINDINGS: Total knee arthroplasty with normal alignment. Postoperative changes in the soft tissues. No acute fractures are seen. RAD/Knee 4 or More Views IMPRESSION: Total knee arthroplasty with normal alignment. Electronically Signed: Mega Huston MD at 21:45 EDT Tel , Service support , CC: Dr. Negro Johnson DO; Dr. Patt Jones DO Annealing Furnace Operator: Signed Patt Jones Start: 02-28-2020 End: 02-28-2020 Inital Evaluation (1) - PT Comments: See Note; NOTES: [facility] [address] [place] [address]. [address] [place] [address] / REHABILITATION SERVICES INITIAL EVALUATION MR#: [id number] Acct: [id number] Name: GUNJAN CONNELL Rep #: [id number] : 1955 64 From: Kimberli FAIR Referring Dr.: Dr. Negro Johnson DO Status: R EG RCR Insurance: [employer]URANCE Patient's Visit Information GUNJAN CONNELL is a 64 year old F referred to Physical Therapy by Dr. Negro Johnson DO with a diagnosis of R TKR (JUVENCIO) 02/27/2020. Date of Evaluation: 02/28/20 Physical Therapist: MARV Horn - Visit Plan Frequency: 3x /Week Duration: 2 Months Plan: 2-3X/ week for 6 weeks for R knee AROM, PROM, AAROM, R knee and hip strengthening, functional activities, gait training, with HEP and ice as needed. - Subjective Pt reports that she had her R TKR done yesterday 02/27/2020. She has a one floor home and with 1 step with no railing. She is able to get inside with help with hiusband and son. She slept on a recliner last night. No pain in her calf but pain in the thigh, lateral leg and some burning across the knee. She is on blood thinners. She took her pain meds today. She has done some ankle pumps, QS, a few heel slides. Front wheeled walker and was walking with a walker a little before surgery due to B knees and back pain. - Pain R knee pain Pain Intensity (Out of 10): 4 - Objective Gait: walks with front wheeled walker with slightly decrease stride length and decrease stance time on the L LE. Good heel to toe pattern. not a whole lot of knee flexion on the R with gait. R knee AROM: -2 degrees from full extension and 80 degrees R knee flexion. L knee AROM: 0 degrees ext and 125 degrees L knee flexion. Girth measurements: R tib tub 42.4, infrapatellar 45.3, suprapatellar 49.9. L tib tub 37.9, 41.5, 43.5. small about of quad contraction with QS. SLR 2 X 10 wtih AA help from therapist at times. Pt needs B UE to be able to get out of a chair sit to stand. Pt needs mod A to go from supine to sit for trunk and for R LE. Nu-step L1 X 5 min to increase ROM and increase circulation - Goals Goal 1:: I HEP Goal Time Frame: 6-8 Weeks Goal 2:: Be able to go up and down 1 flight of stairs recip with 1 hand rail Goal Time Frame: 6-8 Weeks Goal 3:: Increase R knee AROM 0-120 degrees R knee fleixon Goal Time Frame: 6-8 Weeks Goal 4:: Be able to walk with normal gait mechanics with normal stride and equal stance time with no AD Goal Time Frame: 6-8 Weeks Goal 5:: Increase R LE strength to 4/5 L knee flex/ext and L hip flex/abd and extension Goal Time Frame: 6-8 Weeks Goal 6:: Be able to sit to stand with no UE support Goal Time Frame: 6-8 Weeks - Rehabilitation Potential Rehabilitation Potential: Good - Anticipated Interventions Patient/Client Instruction: Educate patient on: Condition, Plan of Care For the Purpose of:: To decrease pain, To decrease swelling/inflammation, To increase ROM, To improve nutrient delivery to tissue, To improve muscle performance and motor function, To improve ability to perform ADL's, To increase tolerance to activity/condition/positi on, To improve performance and independence with ADL's, To decrease level of supervision to perform tasks, To improve ability of physical actions for home/community/work/leisu re, To improve gait and locomotor functions, To improve health of tissue, To decrease soft tissue restriction, To increase flexibility/ROM Therapeutic Exercise to Include: Strength training, Flexibilty training, Gait and locomotor training, Passive ROM, Active ROM For the Purpose of:: To decrease pain, To decrease swelling/inflammation, To increase ROM, To improve nutrient delivery to tissue, To improve muscle performance and motor function, To improve ability to perform ADL's, To increase tolerance to activity/condition/positi on, To improve performance and independence with ADL's, To decrease level of supervision to perform tasks, To improve ability of physical actions for home/community/work/leisu re, To improve gait and locomotor functions, To improve health of tissue, To decrease soft tissue restriction, To increase flexibility/ROM Functional Training to Include: Gait training For the Purpose of:: To improve gait and locomotor functions Manual Therapy Techniques to Include: Mobilization, Passive ROM For the Purpose of:: To increase ROM, To improve nutrient delivery to tissue Cryotherapy (ice pack, ice massage): Yes For the Purpose of:: To decrease pain, To decrease swelling/inflammation Thank you for the opportunity to evaluate your patient. For Medicare and Medicare HMO plans, please review the plan of care and approve it. It will need to be FAXED BACK to us at [phone] for Medicare purposes. For Medicare only, by signing this I certify the plan of care. Please let me know if there are questions or concerns regarding this plan of care. Physician Signature: Date: _ <Electronically signed by Kimberli Vergara MPT> 02/28/20 0443 CC: Dr. Negro Johnson DO; Dr. Patt Jones DO Signed Patt Jones Start: 02-27-2020 End: 02-27-2020 Operative Report Comments: See Note; NOTES: [facility] Medical Records Department [address] [place] [address] Operative Report 02/27/20 1434 MR#: [id number] Acct: [id number] Name: GUNJAN CONNELL Rep #: [id number] : 1955 64 From: Negro Johnson DO PCP: Dr. Patt Jones DO Status:REG [facility] Location: [place] [address] Report of Operation Date of Procedure: 02/27/20 Description of Surgical Findings:: Preoperative diagnosis: Right knee DJD Postoperative diagnosis: Same Procedure: Right total knee arthroplasty CT guided Robotic Assisted Implant: Thompson triathlon press fit femoral component size 1, press-fit tibial baseplate size 2, press fit asymmetric patella size 29 polyethylene X3 size 9 CS Anesthesia: Spinal with adductor canal block Tourniquet time: minutes at 300 mmHg Complications: None Condition: Stable to PACU Estimated blood loss: 125 cc Indication for procedure: This is a 64-year-old female with long standing degenerative joint disease of the knee who has failed conservative treatment and wished to proceed with elective total knee arthroplasty. Risk benefits and alternatives were reviewed including; risk of bleeding, infection, nerve artery and tissue damage, continued pain, postoperative stiffness, venous thromboembolism, need for postoperative rehabilitation, mechanical feel to the knee, and expected postoperative course. The operative CT and templating was performed with component sizing Procedure: The patient was met in the preoperative holding area. The operative extremity was identified by both patient and physician and was marked. Patient was met by anesthesia. An adductor canal block was placed by anesthesia postoperatively the patient was brought back to the operating room on a wheeled cart and transferred to the operating table in the supine position. Anesthesia was started. A well-padded tourniquet was placed on the operative extremity. The patient was prepped and draped in the usual sterile fashion. A timeout was called to ensure the proper patient procedure and extremity were being contemplated. An Esmarch was used to exsanguinate the extremity. The tourniquet was inflated. A 10 blade scalpel was used to make a midline incision down through the skin and subcutaneous tissue. Skin retractors placed. Bovie was used to perform meticulous hemostasis. full-thickness flaps were elevated medial and lateral along the joint capsule. A deep blade scalpel was used to perform a medial parapatellar arthrotomy. The knee was brought to full extension. A Bovie was used to release the soft tissues off the most proximal aspect of the medial tibial plateau a three-quarter inch curved osteotome was also used for this process. The infrapatellar fat pad was excised. The fat pad was excised partially anterior lateral portion the anterior medial was elevated from the femur. At this point our intra-articular femoral array was placed of a 45 degree angle proximal and posterior to the medial epicondyle. Our tibial array was placed greater than 1 hands breath below the incision at a 20 degree angle stab incisions were used for this case were attached and checked with the robotic software. Tourniquet was let down. At this point registration ortiz were taken throughout the knee as well as checkpoints placed in the femur and tibia once the knee was registered then tensioned the medial and lateral ligaments in extension and 90 degrees of flexion. We then used these numbers to adjust our components within parameters to balance the knee in both flexion and extension once this was done on our monitor we then proceeded with using the robotic arm to make our tibial plateau cut and anterior posterior and chamfer cuts on the femur we then trialed and achieved the desired plan with a well-balanced knee. Lug holes were drilled in the femur the tibia preparation was completed with a fin punch and the patella was prepared by first using a caliper to ensure sufficient bone stock and a patellar reamer to remove the desired amount of bone locals were drilled for an asymmetric poly-. We then brought the knee through range of motion with excellent patellar tracking. We thoroughly irrigated the knee with a trial components were removed a posterior capsular injection with her standard cocktail was performed the aqua Mantis was also used to aid in hemostasis. Betadine rinse was allowed to sit and washed out components were press-fit into place. Aricept rinse was then used followed by several more rate liters of irrigation after it was allowed to sit. Joint capsule was closed with #1 Ethibond dhvrlu-oo-membz's followed by Vicryl in the subcutaneous tissues staple in the skin arrays and checkpoints were removed prior to closure all counts were correct stab incisions were closed with a stable standard dressing in the form of Mepilex for the main incision Xeroform 4 x 4 and Tegaderm over pin site holes. Thigh-high FLORENCE hose applied over top of dressing. Patient tolerated the procedure well and was directed to PACU in stable condition no intraoperative complications 02/27/20 1436 <Electronically signed by Negro Johnson DO> Date Negro Johnson DO CC: Dr. Magdiel Renae MD; Dr. Negro Johnson DO; Dr. Patt Jones DO Signed Patt Jones Start: 02-27-2020 End: 02-27-2020 Discharge Instruction Comments: See Note; NOTES: [facility] Medical Records Department [address] [place] [address] Instructions for Home/Discharge Instructions 02/27/20 1155 MR#: [id number] Acct: [id number] Name: GUNJAN CONNELL Rep #: [id number] : 1955 64 From: Negro Johnson DO PCP: Dr. Patt Jones DO Status:REG [facility] Discharge Diet: No Restrictions Weight Bearing Status: Weight bearing as tolerated Call your doctor if you observe: Shortness of breath, Chest pain Additional Instructions: Ice and elevate one week while not ambulating. Ambulation is encouraged. Weightbearing as tolerated. Use assistive devise for stability. Encourage FULL knee extension and flexion 1 time EVERY time you get up and down and MULTIPLE times per day. No showering 72 hours after surgery. Begin showering postop day #3. Remove the dressing prior to shower and gently wash with warm water and antibacterial soap then pat dry and place abdominal pad (or plain gauze) and FLORENCE hose over top. This is to be done daily. Do not submerge for 3 weeks. If not showering daily after the initial 72 hours then you must clean incision and change dressing daily. Do not allow animals near the incision area. Keep clean. Follow anticoagulation recommendations as prescribed. Do not take any NSAIDs while on blood thinner. Do not take any additional narcotic pain medication other than what was perscribed on you surgery day without discussing with physician. Start physical therapy. If you are not currently scheduled for physical therapy or you are unsure of appointment time please call office JEWEL to arrange. Call Dr. Johnson with any concerns. Allergies/Adverse Reactions: Allergies No Known Allergies Allergy (Verified 02/27/20 07:19) Medications to take at Discharge Methotrexate 8 tab PO Q7D 11/01/14 Cholecalciferol (Vitamin D3) [Vitamin D3] 2 tab PO DAILY 02/12/20 Acetaminophen [Tylenol] 1,000 mg PO Q8 #100 tab 02/27/20 Apixaban [Eliquis] 2.5 mg PO BID #30 tab 02/27/20 Cephalexin [Keflex] 1,000 mg PO Q8 #4 cap 02/27/20 Oxycodone [Oxyir] 5 - 10 mg PO Q4H PRN PRN #60 tab 02/27/20 The following prescriptions were given: Apixaban [Eliquis] 2.5 mg PO BID #30 tab Transmission Status: Pending to [id number] Cephalexin [Keflex] 1,000 mg PO Q8 #4 cap Transmission Status: Pending to [id number] Oxycodone [Oxyir] 5 - 10 mg PO Q4H PRN PRN #60 tab PRN Reason: Pain Score 4-10/10 Transmission Status: Sent to [facility] Acetaminophen [Tylenol] 1,000 mg PO Q8 #100 tab Transmission Status: Sent to [facility] Primary Care Physician: Patt Jones DO [Primary Care Provider] - Test Results: Test results from this visit will be discussed in further detail at your follow-up appointment, if applicable. Please Follow Up With: eNgro Johnson DO - 2 weeks 02/27/20 1156 <Electronically signed by Negro Johnson DO> Date Negro Johnson DO CC: Dr. Magdiel Renae MD; Dr. Patt Jones DO Signed Patt Jones Start: 02-27-2020 End: 02-27-2020 Knee 1 or 2 Views Comments: See Note; NOTES: [facility] Imaging Services [address] [place] [address] Knee 1 or 2 Views MR#: [id number] Acct: [id number] Name: GUNJAN CONNELL Rep #: [id number] : 1955 F 64 From: Anderson Jones MD PCP: Dr. Patt Jones DO Status: REG SDC Study: Knee 1 or 2 Views Date of Exam: 02/27/20 Exam# [id number] Ordering Dr: Negro Johnson DO STUDY: X-RAY - RIGHT KNEE REASON FOR EXAM: Female, 64 years old. POST OP KNEE REPLACEMENT TECHNIQUE: 2 view(s) of the knee. COMPARISON: 01/22/2020 FINDINGS: Patient is status post right knee replacement surgery. Components demonstrate anatomic alignment. No plain film evidence of postoperative complication. Normal postoperative soft tissue swelling and subcutaneous emphysema. RAD/Knee 1 or 2 Views IMPRESSION: Replaced right knee joint demonstrates anatomic alignment. No plain film evidence of postoperative complication Electronically Signed: Eugenio Jones MD at 13:05 EDT , Service support , CC: Dr. Negro Johnson DO; Dr. Patt Jones DO Annealing Furnace Operator: Signed Patt Jones Start: 02-27-2020 End: 02-27-2020 History and Physical Exam Comments: See Note; NOTES: [facility] Medical Records Department [address] [place] [address] History and Physical 02/27/20 0956 MR#: [id number] Acct: [id number] Name: GUNJAN CONNELL Rep #: [id number] : 1955 64 From: Negro Johnson DO PCP: Dr. Patt Jones DO Status:REG [facility] Location: [place] [address] History and Physical Date of Admission: 02/27/20 Intake Vital Signs 02/14/20 BMI 37.7 Intake Visit Reasons: right knee Allergies No Known Allergies Allergy (Verified 02/12/20 09:45) [facility] Social History (Updated 02/17/20 @ 13:16 by TONY Rendon) Smoking Status: Never smoker HPI right knee: Details: Parts of this documentation were recorded by a scribe, this documentation accurately reflects the service provided and the decisions made by meChris PA 02/14/20 7491. GUNJAN CONNELL is a 64 year old F here today for Iovera treatment onto the right knee prior to her total knee arthroplasty. Ortho Exam Right Knee Skin/Wound: No erythema, No ecchymosis, No swelling Knee ROM: Yes ROM-Extension -20 to 0, No ROM-Flexion 0-140 Examination: Yes Med jt line tenderness, Yes Lat jt line tenderness, Yes Pain with flexion Quad Atrophy: No Popliteal Adenopathy: No KNEE: No Acute abnormalities on inspection. There are no skin changes and no evident effusion. Scarring noted as seen previously. Office Procedures Iovera Details:: Preoperative diagnosis : right knee pain Postoperative diagnosis: Same Procedure: Cryotherapy with Iovera device to anterior femoral cutaneous nerve and 2 branches of the infrapatellar saphenous nerve III nerves in total Description of procedure: Patient was brought back to the procedure room the operative extremity was identified by both patient and physician. The hip flexion crease was measured to the midpoint of the patella and this distance was divided in 3 resulting in 10 cm location proximal to the midpoint of the patella. This line was extended medial and lateral to the extent of the edges of the patella. This was our treatment line for the anterior femoral cutaneous nerve. A second treatment line was made 5 cm medial to the inferior pole of the patella and 5 cm distally. The leg was prepped with alcohol and Betadine. Lidocaine with epi was used along the treatment lines. Using the Iovera device treatment lines were treated with 1 minute cycles. Reproduction of paresthesias was monitored in the area of nerve distribution. Once all 3 nerves were treated across the 2 treatment lines patient was cleaned and a light dressing with 4 x 4 and Piotr wrap was applied. Patient tolerated the procedure without complication. Assessment Plan Problems 1. Primary osteoarthritis of right knee M17.11 Plan Patient presented the office today for Iovera treatment of the right knee prior to total knee arthroplasty. At this time we did discuss the procedure in depth including the [id number]-dp-uxop treatment as well as the goals of treatment. All of patient's questions were answered to her satisfaction. Consent was signed in office today. Procedure was then performed according to step by step approach noted in the procedural portion of the chart. Procedure was initially started with generalized alcohol soaked gauze cleanse of the extremity. Treatment lines were then marked. Betadine was then used to clean the skin followed by alcohol swab. Topical anesthesia was then applied. Betadine and alcohol swab was then again applied prior to treatment. Patient tolerated this procedure very well with having only minimal discomfort during topical anesthesia distribution. Patient can elevate and ice for the next day or 2. She is to monitor and notify of any erythema, warmth, discharge, or any signs of infection. This note was generated with SNTMNT dictation software. It may contain incorrect words, spelling, and punctuation that were not noted in checking the note before signing. Orders Orders: Iovera 02/14/20 M25.569 Coding Level of Care Code Attention Blaire Diagnoses Primary osteoarthritis of right knee M17.11 ?Osteoarthritis type: primary Comment Iovera Treatment (genicular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 abutment. All bone chips were removed. The area was irrigated with normal saline and the abutment was placed sterilely at 35 NCm of torque. The abutment was secured. The skin was reapproximated with a 3-0 Prolene and a punch biopsy was used to expose the abutment. This was pressed through the skin and a healing cap and Allevyn was placed. The table was rotated 90 degrees toward the anesthesiologist. The patient was subsequently extubated without event. There were no complications. The patient was transferred to the postanesthesia care unit in stable condition. Wade Wilder MD T: NTS JOB: [id number] 08/31/15 0844 <Electronically signed by David Wilder MD> Date David Wilder MD Cosigner Signature (If Indicated): Date CC: Wade Wilder MD; Patt Jones DO Date Dictated: 08/25/15946 Date Transcribed: 08/25/15946 Annealing Furnace Operator: Signed Patt Jones Start: 08-25-2015 End: 08-25-2015 Discharge Instruction Comments: See Note; NOTES: [facility] Medical Records Department [address] [place] [address] Instructions for Home/Discharge Instructions 08/25/15940 MR#: [id number] Acct: [id number] Name: GUNJAN CONNELL Magdi Rep #: [id number] : 1955 60 From: David Wilder MD PCP: Patt Jones DO Status: REG [facility] Discharge Activity: May not drive while taking narcotic pain medications. Call your doctor if your incision/area has: Increased Pain/ Swelling Allergies/Adverse Reactions: Allergies No Known Allergies Allergy (Verified 08/19/15 11:23) Medications to take at Discharge Folic Acid 2 mg PO DAILY@0800 11/01/14 Methotrexate 8 tab PO Q7D 11/01/14 TraMADol [Ultram (G)] 50 mg PO Q6H PRN PRN 11/01/14 Ergocalciferol [Vitamin D] 50,000 unit PO Q7D 08/19/15 Cephalexin [Keflex] 500 mg PO BID #8 capsule 08/25/15 Oxycodone HCl/Acetaminophen [Percocet 5/325] 1 tablet PO Q6H PRN PRN #15 tablet 08/25/15 The following prescriptions were given: Oxycodone HCl/Acetaminophen [Percocet 5/325] 1 tablet PO Q6H PRN PRN #15 tablet PRN Reason: Pain Cephalexin [Keflex] 500 mg PO BID #8 capsule Please Follow Up With: David Wilder When: 1 week - call to make appt 08/25/15 0942 <Electronically signed by David Wilder MD> Date David Wilder MD CC: Patt Velez Start: 08-21-2015 End: 08-21-2015 12 lead ECG Comments: See Note; NOTES: [facility] Cardiovascular Services [address] [place] [address] 12 Lead EKG 08/19/15 1200 MR#: [id number] Acct: [id number] Name: GUNJAN CONNELL Rep #: [id number] : 1955 60 From: Javier Beasley MD Attending Dr: Wade Wilder MD Status: PRE [facility] Ordering Dr: David Wilder MD Date: 08/19/15 Location: [facility] Sex: F C Admitted: Test Reason : Blood Pressure : / mmHG Vent. Rate : 062 BPM Atrial Rate : 062 BPM P-R Int : 130 ms QRS Dur : 092 ms QT Int : 424 ms P-R-T Axes : 017 -11 012 degrees QTc Int : 430 ms Normal sinus rhythm Moderate voltage criteria for LVH, may be normal variant Borderline ECG Confirmed by JAVIER BEASLEY ([id number]), manuscript editor DAYAN NG ([id number]) on 08/21/2015 9:53:17 AM Referred By: DR GARCIA Confirmed By:JAVIER BEASLEY 08/21/15 0953 Date Javier Beasley MD CC: Patt Jones DO Date Dictated: 08/19/15 1200 Date Transcribed: 08/19/15 1200 Annealing Furnace Operator: Signed Patt Jones Start: 05-12-2015 End: 05-15-2015 Bilat Scrn Digital AND CAD Comments: See Note; NOTES: [facility] Imaging Services [address] [place] [address] Breast Imaging Report MR#: [id number] Acct: [id number] Name: GUNJAN CONNELL Rep #: [id number] : 1955 F 60 From: Carmen Groves MD PCP: Patt Jones DO Status: REG CLI Study: Bilat Scrn Digital AND CAD Date of Exam: 05/12/15 Exam# [id number] Ordering Dr: Patt Jones DO MAMMOGRAPHY - BILATERAL SCREENING REASON FOR EXAM: Female, 60 years old. Routine annual screening examination. PERTINENT HISTORY: NO PROBLEMS, BILAT HEMANGIOMAS MARKED, FAM HX CA IN TWO SISTERS AGES 60 AND 68 TECHNIQUE: Digital examination. Mediolateral oblique (MLO) and craniocaudad (CC) views of both breasts were obtained. CAD: CAD was performed on this study. COMPARISON: December 03, 2010 FINDINGS: Breast Composition: The breasts are heterogeneously dense, which may obscure small masses. There are no dominant masses or suspicious calcifications. No other significant abnormalities are identified. IMPRESSION: Stable bilateral screening mammogram. Yearly follow-up recommended. (A) ASSESSMENT CATEGORY: BIRADS Category 2: Benign. A letter regarding these results will be sent to the patient by the facility within 30 days. Approximately 10% of breast cancers are not detected by mammography. A normal mammogram should not delay biopsy of a clinically suspicious abnormality. Electronically Signed: Hayden Groves MD at 9:45 EDT Tel , Service support [phone], CC: Patt Jones DO Annealing Furnace Operator: Signed Patt Jones Work Phone: Start: 05-12-2015 End: 05-18-2015 Dexa Bone Density Study (HP) Comments: See Note; NOTES: [facility] Imaging Services [address] [place], [place] [id number] Bone Density Report MR#: [id number] Acct: [id number] Name: GUNJAN CONNELL Rep #: [id number] : 1955 F 60 From: James Price MD PCP: Patt Jones DO Status: [facility] Study: Dexa Bone Density Study (HP) Date of Exam: 05/12/15 Exam# [id number] Ordering Dr: Patt Jones DO STUDY: DUAL ENERGY X-RAY ABSORPTIOMETRY / DXA REASON FOR EXAM: Female, 60 years old. The patient is postmenopausal. History of prednisone use. Loss of height. TECHNIQUE: Bone Mineral Density (BMD) measurements of lumbar spine and bilateral hips were obtained. COMPARISON: Comparison is made with prior study dated December 07, 2010 FINDINGS: Lumbar Spine (L1-L4): g/cm2 (0.895) / T-score (-2.4) / Z-score (-1.0) Findings are suggestive of osteopenia with a moderate fracture risk. Left Femur Total: g/cm2 (0.641) / T-score (-2.9) / Z-score (-1.9) Left Femoral Neck: g/cm2 (0.550) / T-score (-3.5) / Z-score (-2.2) Right Femur Total: g/cm2 (0.687) / T-score (-2.5) / Z-score (-1.5) Right Femoral Neck: g/cm2 (0.592) / T-score (-3.2) / Z-score (-1.9) The T-Scores on the most recent prior examination were: Lumbar Spine (L1-L4): There has been improvement of bone density since the previous examination. Left Femur Total: which represents a worsening of 8.4%. Right Femur Total: which represents a worsening of 6.1%. IMPRESSION: The patient is considered osteoporotic as outlined below according to World Stevenson Organization (WHO) criteria with a high fracture risk. There has been worsening of bone density since the previous examination. Reference Information: The T-score is the number of standard deviations above or below the standard which is normal for young adults at their peak bone mineral density. The World Health Organization (WHO) interprets the T-scores as follows: Above -1 Normal bone density Between -1 and -2.5 Osteopenia Equal to / or below -2.5 Osteoporosis As a practical clinical guideline, osteopenia may be graded as follows: Mild -1 through -1.5 Moderate -1.6 through -2.0 Severe -2.1 through -2.4 The Z-score is the number of standard deviations above or below age-matched controls. A Z-score of less than -1.5 would be considered abnormal. References: 1. NIH Osteoporosis and Related Bone Diseases http://www.osteo.org 2. International Society for Clinical Densitometry http://www.iscd.org 3. National Osteoporosis Foundation http://www.nof.org Electronically Signed: James Price MD at 15:16 EDT Tel [phone], Service support [phone], CC: Patt Jones DO Annealing Furnace Operator: Signed Patt Jones Work Phone: Start: 11-02-2014 End: 11-02-2014 Emergency Department Summary Comments: See Note; NOTES: [facility] Medical Records Department [address] [place] [address] Emergency Department Summary MR#: [id number] Acct: [id number] Name: GUNJAN CONNELL Rep #: [id number] : 1955 59 From: Lacey Conway MD PCP: Patt Jones DO Status: [facility] ER DATE OF SERVICE: 11/01/2014 CHIEF COMPLAINT: Flank pain. HISTORY: A 59-year-old female comes in with flank pain that has been present for a couple of hours. She has had associated nausea and vomiting. It came on rather rapidly while she was sitting at home not doing anything out of the ordinary. She notes that has intense pain in her right side. No diarrhea. No fevers. She has never had anything like this before. No urinary symptoms. At the time that she presents here, she states that the symptoms had actually resolved temporarily, but it seemed to come in fits and spurts. PAST MEDICAL HISTORY: Significant for cholecystectomy and hysterectomy. She has never had a kidney stone. PHYSICAL EXAMINATION: VITAL SIGNS: Blood pressure is a little elevated, but otherwise vitals are unremarkable. GENERAL: She is alert, appropriate, and well-appearing. HEART: Rate is regular with no murmurs. LUNGS: Clear to auscultation bilaterally. CHEST: Chest wall is nontender. ABDOMEN: She has no CVA tenderness. Abdomen is normal on inspection. Soft and nontender. SKIN: Warm and dry. CLINICAL COURSE AND DECISION MAKING: The patient's history was suspicious for a kidney stone and the urinalysis did in fact have blood in it, but no other findings. CT flank was actually completely unremarkable. There was no hydronephrosis or evidence of ureterolithiasis. CBC and chemistry were relatively unremarkable. I did not give this patient any pain or nausea medicine as she had no further symptoms in the ED. She was here for over 3 hours. At this time, I suspect that she has passed a kidney stone given her presentation and her urine results. I discussed this with her and she is comfortable being discharged home at this time. Should she have a recurrence of pain or any other concerns or symptoms, she will return to the ED. DISPOSITION: Discharge. DIAGNOSIS: Flank pain, resolved. Lacey Conway MD T: NTS JOB: [id number] 11/02/145 <Electronically signed by Lacey Conway MD> Date Lacey Conway MD CC: Patt Jones DO Date Dictated: 11/01/142051 Date Transcribed: 11/01/142051 Annealing Furnace Operator: Signed Patt Jones Start: 11-01-2014 End: 11-01-2014 Discharge Instruction Comments: See Note; NOTES: [facility] Medical Records Department [address] [place] [address] Discharge Instruction 11/01/142052 MR#: [id number] Acct: [id number] Name: GUNJAN CONNELL Rep #: [id number] : 1955 59 From: Lacey Conway MD PCP: Patt Jones DO Status: REG ER ED Disposition - Plan for ED Patient: Disposition: Home Chief Complaint: Flank Pain Instructions: ED Kidney Stone, Passed Referrals: Patt Jones DO [Primary Care Provider] - As Needed What to do if you have Problems For any increased pain, shortness of breath, bleeding, nausea or vomiting, chest pain, or any unexpected problems, contact your doctor. Call [facility] ) or report to the closest Emergency Room. Call 911 if necessary. 11/01/142052 <Electronically signed by Lacey Conway MD> Date Lacey Conway MD Cosigner Signature (If Indicated): Date CC: Patt Robertjose m Velez Start: 11-01-2014 End: 11-01-2014 Abdomen/Pelvis without Cont Comments: See Note; NOTES: [facility] Imaging Services [address] [place] [address] CAT Scan Report MR#: [id number] Acct: [id number] Name: GUNJAN CONNELL Rep #: [id number] : 1955 F 59 From: Dick Vega PCP: Patt Jones DO Status: REG ER Study: Abdomen/Pelvis without Cont Date of Exam: 11/01/14 Exam# [id number] Ordering Dr: Lacey Conway MD STUDY: CT ABDOMEN AND PELVIS WITHOUT CONTRAST REASON FOR EXAM: Female, 59 years old. RIGHT-sided abdominal pain RADIATION DOSAGE (If Supplied By Facility): CTDIvol = ( 21.52 ) mGy, DLP = ( 956.18 ) mGycm TECHNIQUE: Transaxial images were obtained from the dome of the diaphragm to the symphysis pubis without oral contrast, and without intravenous contrast. Sagittal and coronal images were reconstructed. COMPARISON: None. FINDINGS: The visualized lung bases are unremarkable. The visualized portions of the heart are within normal limits. Liver is somewhat heterogeneous suggesting fatty infiltration. There are scattered low-density lesions which appear to be cysts. NO solid mass is seen. There has been a cholecystectomy. Normal spleen. Normal pancreas. Normal bilateral adrenal glands. Normal right kidney. There are parapelvic cysts in the LEFT kidney. There are NO stones. There is NO hydronephrosis Normal visualized stomach. Normal small intestine. Normal colon. There is non-visualization of the appendix. Normal abdominal aorta. Normal inferior vena cava. Normal retroperitoneum. Normal urinary bladder. Normal visualized prostate gland. Normal abdominal wall. There are wedge deformities of T12 and L1 which could be evidence of old compression fractures. NO specific evidence of acute compression fracture is seen. There are chronic degenerative disc and facet changes. IMPRESSION: Liver is somewhat heterogeneous suggesting fatty infiltration. There are scattered low-density lesions which appear to be cysts. NO solid mass is seen. There has been a cholecystectomy. There are parapelvic cysts in the LEFT kidney. There are NO stones. There is NO hydronephrosis NO acute bowel abnormality is seen. There is non-visualization of the appendix. There are wedge deformities of T12 and L1 which could be evidence of old compression fractures. NO specific evidence of acute compression fracture is seen. There are chronic degenerative disc and facet changes. Electronically Signed: Dick Vega MD at 19:48 EST , Service support [phone], CC: Lacey Conway MD; Patt Jones DO Annealing Furnace Operator: Signed Patt Jones Start: 04-03-2014 End: 04-03-2014 Knee 4 or More Views Comments: See Note; NOTES: [facility] Imaging Services [address] [place] [address] Radiology Report MR#: [id number] Acct: [id number] Name: GUNJAN CONNELL Rep #: [id number] : 1955 F 59 From: Anamaria Hubbard MD PCP: Patt Jones DO Status: REG CLI Study: Knee 4 or More Views Date of Exam: 04/03/14 Exam# [id number] Ordering Dr: Manisha Navas MD STUDY: X-RAY - RIGHT KNEE REASON FOR EXAM: Female, 59 years old. Knee pain. TECHNIQUE: 4 view(s) of the knee. COMPARISON: None. FINDINGS: Normal visualized distal femur. Normal visualized proximal tibia and fibula. There is arthrosis of the proximal tibiofibular articulation. There is no demonstrated fracture. High riding patella. Moderate narrowing and moderate marginal osteophytosis of the medial compartment. Mild narrowing and mild marginal osteophytosis of the lateral compartment. Narrowing of the patellofemoral compartment which is more severe on the lateral side with extensive marginal osteophytosis. There is no demonstrated joint effusion. The soft tissue structures are unremarkable. IMPRESSION: Normally located knee without fracture, osteolytic or blastic bone lesion. Moderate narrowing and marginal osteophytosis of the medial compartment. Mild narrowing and marginal osteophytosis of the lateral compartment. Moderate to severe narrowing and marginal osteophytosis of the patellofemoral compartment. High riding patella. No evidence of a substantial joint effusion. Electronically Signed: Anamaria Hubbard MD at 16:58 EDT , Service support [phone], CC: Patt Jones DO; Manisha Navas MD [place] Operator: Signed Manisha Navas Work Phone: Plan of Treatment Date Care Activity Detail Author Start: 04-02-2025 [facility] Start: 04-02-2025 Enteric precautions [facility] Start: 04-02-2025 Enteric precautions [facility] Start: 04-02-2025 Ova and Parasites Ova and Parasites [facility] Start: 01-12-2025 [facility] Start: 08-24-2024 Patient discharge [facility] Start: 08-23-2024 Development of care plan [facility] Start: 08-20-2024 Referral to service [facility] Start: 08-19-2024 Recommendation to continue with treatment [facility] Start: 08-16-2024 [facility] Start: 08-14-2024 Referral to gastroenterology service [facility] Start: 08-09-2024 [facility] Start: 08-09-2024 Wound care [facility] Start: 08-07-2024 Application of device [facility] Start: 08-06-2024 Following clinical pathway protocol [facility] Start: 08-06-2024 Providing care according to standard [facility] Start: 08-06-2024 Development of care plan [facility] Start: 08-06-2024 Developing a treatment plan [facility] Start: 08-05-2024 Admission procedure [facility] Start: 08-05-2024 Introduction of urinary catheter [facility] Start: 08-05-2024 Measuring intake and output [facility] Start: 08-05-2024 Patient referral to dietitian [facility] Start: 08-05-2024 Referral to occupational therapist [facility] Start: 08-05-2024 Referral to service [facility] Start: 08-05-2024 Vital signs measurements [facility] Start: 08-05-2024 [facility] Start: 08-05-2024 Patient discharge [facility] Start: 08-05-2024 Wound care [facility] Start: 08-05-2024 Care planning and problem solving actions [facility] Start: 08-01-2024 Referral to gastroenterology service [facility] Start: 07-31-2024 Administration of blood product [facility] Start: 07-30-2024 Care planning and problem solving actions [facility] Start: 07-29-2024 [facility] Start: 07-28-2024 Provision of overbed trapeze [facility] Start: 07-28-2024 Recommendation to continue with treatment [facility] Start: 07-28-2024 Ambulation therapy management [facility] Start: 07-28-2024 Application of device [facility] Start: 07-28-2024 Assessment of risk of venous thromboembolism [facility] Start: 07-28-2024 Catheterization of vein [facility] Start: 07-28-2024 Exercises [facility] Start: 07-28-2024 Following clinical pathway protocol [facility] Start: 07-28-2024 Introduction of urinary catheter [facility] Start: 07-28-2024 Measuring intake and output [facility] Start: 07-28-2024 Neurovascular assessment [facility] Start: 07-28-2024 Patient education [facility] Start: 07-28-2024 Procedure discontinued [facility] Start: 07-28-2024 Provision of activity privileges [facility] Start: 07-28-2024 Referral to occupational therapist [facility] Start: 07-28-2024 Referral to service [facility] Start: 07-28-2024 Vital signs measurements [facility] Start: 07-28-2024 [facility] Start: 07-26-2024 Application of intermittent pneumatic compression device [facility] Start: 07-26-2024 Following clinical pathway protocol [facility] Start: 07-26-2024 Ambulation without limitation [facility] Start: 07-26-2024 Assessment of risk of venous thromboembolism [facility] Start: 07-26-2024 Consultation [facility] Start: 07-26-2024 Insertion of catheter into peripheral vein [facility] Start: 07-26-2024 Measuring intake and output [facility] Start: 07-26-2024 Providing care according to standard [facility] Start: 07-26-2024 Provision of activity privileges [facility] Start: 07-26-2024 Referral to occupational therapist [facility] Start: 07-26-2024 Referral to service [facility] Start: 07-26-2024 [facility] Start: 07-26-2024 Hospital admission, emergency, from emergency room, medical nature [facility] Start: 07-26-2024 Admission procedure [facility] Start: 06-03-2023 Arthrocentesis aspir&/inj interm jt/burs w/o us DRAIN/INJ JOINT/BURSA W/O US [facility] Start: 04-18-2023 [facility] Start: 04-18-2023 Incentive spirometry [facility] Start: 01-26-2022 Procedure Education Eprescribed prescriptions (G8553) [facility] Work Phone: Start: 01-26-2022 Hemoglobin glycosylated a1c HGB A1C (65179) [facility]; [facility] Work Phone: Start: 01-26-2022 Hepatitis c antibody HEPATITIS C ANTIBODY (19541) [facility]; [facility] Work Phone: Start: 01-26-2022 Heavy metal qualitative any analytes HEAVY METAL SCREEN (69515) [facility]; [facility] Work Phone: Start: 01-26-2022 Antinuclear antibodies veronika VERONIKA (ANTINUCLEAR ANTIBODY) (66098) [facility]; [facility] Work Phone: Start: 01-26-2022 Protein electrophoretic fractj&quantj serum Serum Protein Electrophoresis (SPEP) (01537) [facility]; [facility] Work Phone: Start: 01-26-2022 Cyanocobalamin vitamin b-12 VITAMIN B-12 (CYANOCOBALAMIN) (58661) [facility]; [facility] Work Phone: Start: 01-26-2022 Assay of thyroid stimulating hormone tsh TSH (THYROID STIMULATING HORMONE) (11405) [facility]; [facility] Work Phone: Start: 01-26-2022 Sedimentation rate rbc non-automated SED RATE ERYTHROCYTE (36427) [facility]; [facility] Work Phone: Start: 01-26-2022 Comprehensive metabolic panel METABOLIC PANEL, COMPREHENSIVE (89192) [facility]; [facility] Work Phone: Start: 01-26-2022 Blood count complete automated CBC & PLATELETS (AUTO) (75527) [facility]; [facility] Work Phone: Start: 07-02-2021 Procedure Education Eprescribed prescriptions (G8553) [facility]; [facility] Work Phone: Start: 07-02-2021 Provider Instructions for Treatment [facility]; [facility] Work Phone: Start: 07-02-2021 25 hydroxy includes fractions if performed CALCIFIDIOL (78192) VIT D 25 [facility]; [facility] Work Phone: Start: 07-02-2021 Assay of thyroid stimulating hormone tsh TSH (00798) [facility]; [facility] Work Phone: Start: 07-02-2021 Comprehensive metabolic panel METABOLIC PANEL, COMPREHENSIVE (82048) [facility]; [facility] Work Phone: Start: 07-02-2021 Blood count complete auto&auto difrntl wbc CBC W/AUTO DIFF WBC (94946) [facility]; [facility] Work Phone: Start: 07-02-2021 Lipid panel LIPID PANEL (39129) [facility]; [facility] Work Phone: Start: 03-26-2021 Procedure Education Eprescribed prescriptions (G8553) [facility]; [facility] Work Phone: Start: 03-26-2021 Provider Instructions for Treatment Cholesterol mgmt [facility]; [facility] Work Phone: Start: 03-11-2021 Procedure Education Eprescribed prescriptions (G8553) [facility]; [facility] Work Phone: Start: 02-23-2021 Procedure Education Eprescribed prescriptions (G8553) [facility]; [facility] Work Phone: Start: 02-23-2021 Provider Instructions for Treatment Follow up after consult Make follow up with Dr. Jones in 2-3 weeks front desk team member to call and set it up today! [facility]; [facility] Work Phone: Start: 12-21-2020 Procedure Education Eprescribed prescriptions (G8553) [facility]; [facility] Work Phone: Start: 12-21-2020 Provider Instructions for Treatment [facility]; [facility] Work Phone: Start: 12-21-2020 Oncology colorectal screening betina 10 dna markrs Cologuard - Strool Based DNA Test, CRC SCREEN (58258) [facility]; [facility] Work Phone: Start: 12-11-2020 Procedure Education Eprescribed prescriptions (G8553) [facility]; [facility] Work Phone: Start: 12-11-2020 Provider Instructions for Treatment COVID SCREENING FORM [facility]; [facility] Work Phone: Start: 12-04-2020 Procedure Education Eprescribed prescriptions (G8553) [facility]; [facility] Work Phone: Start: 12-04-2020 Provider Instructions for Treatment [facility]; [facility] Work Phone: Start: 11-20-2020 Procedure Education Eprescribed prescriptions (G8553) [facility]; [facility] Work Phone: Start: 11-20-2020 Provider Instructions for Treatment Follow up if no improvement or if symptoms worsen kf [facility]; [facility] Work Phone: Start: 05-01-2020 Procedure Education Eprescribed prescriptions (G8553) [facility] Work Phone: Start: 05-01-2020 Provider Instructions for Treatment [facility] Work Phone: Start: 02-12-2020 25 hydroxy includes fractions if performed CALCIFIDIOL (74064) VIT D 25 [facility] Work Phone: Start: 02-12-2020 Lipoprotein blood betina numbers & subclasses NMR Profile (17937) [facility] Work Phone: Start: 02-12-2020 TSH Qn TSH (40662) [facility] Work Phone: Start: 02-12-2020 Comprehensive metabolic panel METABOLIC PANEL, COMPREHENSIVE (80141) [facility] Work Phone: Start: 02-12-2020 Blood count complete auto&auto difrntl wbc CBC W/AUTO DIFF WBC (52103) [facility] Work Phone: Start: 02-12-2020 Procedure Education Eprescribed prescriptions (G8553) [facility] Work Phone: Start: 07-06-2018 Procedure Education Eprescribed prescriptions (G8553) [facility] Work Phone: Start: 07-06-2018 Provider Instructions for Treatment [facility] Work Phone: Start: 07-06-2018 25 hydroxy includes fractions if performed Vitamin D Hydroxy (18309) [facility] Work Phone: Start: 07-06-2018 Protein electrophoretic fractj&quantj serum [facility] Work Phone: Start: 07-06-2018 1 25 dihydroxy includes fractions if performed VITAMIN D, 1, 25-DIHYDROXY (76861) [facility] Work Phone: Start: 07-06-2018 ALP enzyme act/vol ALKALINE PHOSPHATASE (55914) [facility] Work Phone: Start: 07-06-2018 Assay of parathormone PARATHORMONE (22174) [facility] Work Phone: Start: 07-06-2018 Assay of phosphatase alkaline ALKALINE PHOSPHATASE (73118) [facility]; [facility] Work Phone: Start: 07-06-2018 Blood count complete automated CBC (AUTO) (70752) [facility] Work Phone: Start: 07-06-2018 Calcium mass conc CALCIUM SERUM (78999) [facility] Work Phone: Start: 07-06-2018 Calcium urine quantitative timed specimen URINE CALCIUM BETINA TIMED 24 Hour (29489) [facility] Work Phone: Start: 07-06-2018 CRP mass conc C-REACTIVE PROTEIN (38198) [facility] Work Phone: Start: 07-06-2018 Hepatic function panel HEPATIC FUNCTION PANEL (41546) [facility] Work Phone: Start: 07-06-2018 Phosphate mass conc PHOSPHORUS (01106) [facility] Work Phone: Start: 07-06-2018 Sedimentation rate rbc non-automated SED RATE ERYTHROCYTE (48831) [facility] Work Phone: Start: 07-06-2018 Thyrotropin Qn TSH (32006) [facility] Work Phone: Start: 05-16-2018 Oncology colorectal screening betina 10 dna markrs Cologuard - Strool Based DNA Test, CRC SCREEN (69905) [facility] Work Phone: Start: 05-16-2018 Provider Instructions for Treatment [facility] Work Phone: Start: 04-27-2018 Provider Instructions for Treatment [facility] Work Phone: Start: 02-15-2017 End: 02-15-[address] [facility] Work Phone: Start: 02-15-2017 End: 02-15-2017 X-ray exam, knee, 4 or more X-Ray, Knee [facility] Work Phone: Start: 04-13-2016 End: 04-13-2016 X-ray exam of shoulder X-Ray, Shoulder [facility] Work Phone: Start: 01-21-2016 Procedure Education Eprescribed prescriptions (G8553) [facility] Work Phone: Start: 01-21-2016 Provider Instructions for Treatment [facility] Work Phone: Start: 11-02-2015 Procedure Education Eprescribed prescriptions (G8553) [facility] Work Phone: Start: 11-02-2015 Provider Instructions for Treatment [facility] Work Phone: Start: 09-25-2015 Assay of thyroid stimulating hormone tsh TSH (83568) [facility]; [facility] Work Phone: Start: 09-25-2015 Thyrotropin Qn TSH (76973) [facility] Work Phone: Start: 09-25-2015 Urine albumin quantitative MICROALBUMIN: CREATININE RATIO (02574) AND (17165) [facility] Work Phone: Start: 09-25-2015 Blood count manual cell count each CBC WITH MANUAL DIFF (45930) [facility] Work Phone: Start: 09-25-2015 Comprehensive metabolic panel Metabolic Panel, Comprehensive (79275) [facility] Work Phone: Start: 09-25-2015 Lipid panel Lipid Panel (44902) [facility] Work Phone: Start: 09-25-2015 Urinalysis qual/semiquant except immunoassays URINALYSIS (75613) [facility] Work Phone: Start: 09-25-2015 25 hydroxy includes fractions if performed CALCIFEDIOL (20169) [facility] Work Phone: Start: 05-04-2015 Provider Instructions for Treatment [facility] Work Phone: Start: 05-04-2015 Blood occult fecal hgb deter ia qual feces 1-3 FECAL OCCULT HGB ASSAY- tubes sent home (29089) [facility] Work Phone: Start: 06-13-2014 Patient Education Flu (Influenza) *: flu shot [facility] Work Phone: Start: 07-19-2013 Patient Education Flu (Influenza) *: flu shot [facility] Work Phone: Start: 07-19-2013 Provider Instructions for Treatment *Colon Cancer Screening [facility] Work Phone: Start: 07-19-2013 Blood occult fecal hgb deter ia qual feces 1-3 FECAL OCCULT HGB ASSAY- tubes sent home (50024) [facility] Work Phone: Start: 07-03-2013 Blood count complete auto&auto difrntl wbc CBC, PLATELETS & AUT DIFF (65216) [facility] Work Phone: Start: 07-03-2013 Comprehensive metabolic panel METABOLIC PANEL, COMPREHENSIVE (71790) [facility] Work Phone: Start: 07-03-2013 Assay of thyroid stimulating hormone tsh TSH (THYROID STIMULATING HORMONE) (37443) [facility]; [facility] Work Phone: Start: 07-03-2013 Thyrotropin Qn TSH (THYROID STIMULATING HORMONE) (37926) [facility] Work Phone: Start: 07-03-2013 Lipid panel LIPID PANEL (90083) [facility] Work Phone: Start: 05-03-2013 Provider Instructions for Treatment Continue Current Prescription(s) [facility] Work Phone: Start: 12-19-2012 Provider Instructions for Treatment [facility] Work Phone: Start: 06-15-2012 Provider Instructions for Treatment [facility] Work Phone: Start: 03-08-2012 Patient Education Mammogram *: gynecological health [facility] Work Phone: Start: 03-08-2012 Provider Instructions for Treatment [facility] Work Phone: Start: 01-20-2012 Patient Education Arthritis Overview *: arthritis [facility] Work Phone: Start: 01-20-2012 Provider Instructions for Treatment [facility] Work Phone: Start: 11-01-2011 25 hydroxy includes fractions if performed Vitamin D Hydroxy (30366) [facility] Work Phone: Start: 07-15-2011 Provider Instructions for Treatment Follow up in 2 weeks [facility] Work Phone: Start: 07-01-2011 Provider Instructions for Treatment [facility] Work Phone: Start: 05-25-2011 Provider Instructions for Treatment [facility] Work Phone: Start: 03-28-2011 25 hydroxy includes fractions if performed CALCIFIDIOL (64919) VIT D 25 [facility] Work Phone: Start: 03-28-2011 Lipid panel LIPID PANEL (33658) [facility] Work Phone: Start: 12-29-2010 Provider Instructions for Treatment [facility] Work Phone: Start: 11-30-2010 Provider Instructions for Treatment [facility] Work Phone: Start: 09-28-2010 Provider Instructions for Treatment [facility] Work Phone: Start: 01-08-2009 Provider Instructions for Treatment [facility] Work Phone: Start: 01-08-2009 1 25 dihydroxy includes fractions if performed VITAMIN D, 1, 25-DIHYDROXY (09649) [facility] Work Phone: Start: 01-08-2009 25 hydroxy includes fractions if performed Vitamin D Hydroxy (45259) [facility] Work Phone: Start: 01-08-2009 Assay of parathormone PARATHORMONE (31685) [facility] Work Phone: Start: 01-08-2009 Assay of phosphorus inorganic PHOSPHORUS (22778) [facility]; [facility] Work Phone: Start: 01-08-2009 Assay of thyroid stimulating hormone tsh TSH (41418) [facility]; [facility] Work Phone: Start: 01-08-2009 Creatinine blood CREATININE BLOOD (40398) [facility]; [facility] Work Phone: Start: 01-08-2009 Creatinine mass conc CREATININE BLOOD (31080) [facility] Work Phone: Start: 01-08-2009 Hepatic function panel HEPATIC FUNCTION PANEL (22421) [facility] Work Phone: Start: 01-08-2009 Phosphate mass conc PHOSPHORUS (11585) [facility] Work Phone: Start: 01-08-2009 Protein electrophoretic fractj&quantj serum [facility] Work Phone: Start: 01-08-2009 Sedimentation rate rbc non-automated SED RATE ERYTHROCYTE (54232) [facility] Work Phone: Start: 01-08-2009 Thyrotropin Qn TSH (07488) [facility] Work Phone: Start: 01-08-2009 ALP enzyme act/vol ALKALINE PHOSPHATASE (06094) [facility] Work Phone: Start: 01-08-2009 Assay of phosphatase alkaline ALKALINE PHOSPHATASE (66699) [facility]; [facility] Work Phone: Start: 01-08-2009 Blood count complete automated CBC (AUTO) (21998) [facility] Work Phone: Start: 01-08-2009 C-reactive protein C-REACTIVE PROTEIN (86590) [facility]; [facility] Work Phone: Start: 01-08-2009 Calcium mass conc CALCIUM SERUM (19931) [facility] Work Phone: Start: 01-08-2009 Calcium total CALCIUM SERUM (47282) [facility]; [facility] Work Phone: Start: 01-08-2009 CRP mass conc C-REACTIVE PROTEIN (92589) [facility] Work Phone: Start: 12-17-2008 Provider Instructions for Treatment [facility] Work Phone: Start: 12-17-2008 Blood occult fecal hgb deter ia qual feces 1-3 FECAL OCCULT HGB ASSAY- tubes sent home (94666) [facility] Work Phone: Start: 12-08-2008 Hepatic function panel HEPATIC FUNCTION PANEL (14993) [facility] Work Phone: Start: 12-08-2008 Lipid panel LIPID PANEL (53326) [facility] Work Phone: Comment on above: do in 3 mo Start: 12-08-2008 Provider Instructions for Treatment [facility] Work Phone: Start: 05-30-2008 Provider Instructions for Treatment [facility] Work Phone: Start: 01-24-2008 Provider Instructions for Treatment [facility] Work Phone: Start: 10-22-2007 Provider Instructions for Treatment [facility] Work Phone: Lactoferrin [Presenc e] in Stool by Immunoassay [facility] Nucleic acid assay [facility] Ova OR parasites identification [facility] Patient referral [facility] Work Phone: [facility] Work Phone: [facility] Work Phone[facility] Work Phone: [facility] Work Phone: [facility] Work Phone[facility] Work Phone: [facility] Work Phone: [facility] Work Phone: [facility] Work Phone[facility] Work Phone[facility] Work Phone[facility] Work Phone[facility] Work Phone: [facility] Work Phone[facility] Work Phone: [facility] Work Phone: [facility] Work Phone: Comprehensive [facility] Work Phone: [facility] Work Phone: [facility] Work Phone: [facility] Work Phone: [facility] Work Phone: [facility] Work Phone: [facility] Work Phone: [facility] Work Phone: [facility]; [facility] Work Phone[facility]; [facility] Work Phone: [facility]; [facility] Work Phone[facility]; [facility] Work Phone: [facility]; [facility] Work Phone: [facility]; [facility] Work Phone: [facility]; [facility] Work Phone[facility]; [facility] Work Phone: [facility]; [facility] Work Phone: [facility]; [facility] Work Phone: [facility]; [facility] Work Phone: Immunizations Immunization Date Immunization Notes Care Provider Fa [facility] 04-25-2021 pneumococcal conjuga te vaccine, [address] Patt Jones DO Work Phone: [facility] Payers Date Payer Category Payer Medicare [id number] 2024 Self-pay [id number] 2023 Private Health Insurance [id number] 2021 Medicare [id number] 2015 Private Health Insurance [id number] 1955 Unknown [id number] 2.16.840.1.741872.3.579.2.71 6 Private Health Insurance [id number] Private Health Insurance [id number] Unknown [place]/Medicare Adv plan Unknown [id number] Unknown [id number] Unknown [id number] 2.16.840.1.533475.3.579.2.46 2 Unknown [id number] 2.16.840.1.759298.3.579.2.46 2 Unknown [id number] 2.16.840.1.262105.3.579.2.46 2 Unknown [id number] 2.16.840.1.942932.3.579.2.46 2 Unknown [id number] 2.16.840.1.196677.3.579.2.46 2 Unknown [id number] 2.16.840.1.426556.3.579.2.46 2 Unknown [id number] 2.16.840.1.028225.3.579.2.46 2 Unknown [id number] 2.16.840.1.503168.3.579.2.46 2 Unknown [id number] 2.16.840.1.847668.3.579.2.46 2 Unknown [id number] 2.16.840.1.435681.3.579.2.46 2 Unknown [id number] 2.16.840.1.463392.3.579.2.46 2 Unknown [id number] 2.16.840.1.184841.3.579.2.46 2 Unknown [id number] 2.16.840.1.898475.3.579.2.46 2 Unknown [id number] 2.16.840.1.965307.3.579.2.46 2 Unknown [id number] 2.16.840.1.050617.3.579.2.46 2 Unknown [id number] 2.16.840.1.928733.3.579.2.46 2 Unknown [id number] 2.16.840.1.081092.3.579.2.46 2 Unknown [id number] 2.16.840.1.076810.3.579.2.46 2 Unknown [id number] 2.16.840.1.928492.3.579.2.46 2 Unknown [id number] 2.16.840.1.496457.3.579.2.46 2 Unknown [id number] 2.16.840.1.062117.3.579.2.46 2 Unknown [id number] 2.16.840.1.723159.3.579.2.46 2 Unknown [id number] 2.16.840.1.253109.3.579.2.46 2 Unknown [id number] 2.16.840.1.785931.3.579.2.46 2 Unknown [id number] 2.16.840.1.988835.3.579.2.46 2 Unknown [id number] 2.16.840.1.251711.3.579.2.46 2 Unknown [id number] 2.16.840.1.567853.3.579.2.46 2 Unknown [id number] 2.16.840.1.758149.3.579.2.46 2 Unknown [id number] 2.16.840.1.939656.3.579.2.46 2 Unknown [id number] 2.16.840.1.827099.3.579.2.46 2 Unknown [id number] 2.16.840.1.285551.3.579.2.46 2 Unknown [id number] 2.16.840.1.293433.3.579.2.46 2 Unknown [id number] 2.16.840.1.038479.3.579.2.46 2 Unknown [id number] 2.16.840.1.297266.3.579.2.46 2 Unknown [id number] 2.16.840.1.669560.3.579.2.46 2 Unknown [id number] 2.16.840.1.639408.3.579.2.46 2 Unknown [id number] 2.16.840.1.572387.3.579.2.46 2 Unknown [id number] 2.16.840.1.116383.3.579.2.46 2 Unknown [id number] 2.16.840.1.742407.3.579.2.46 2 Unknown [id number] 2.16.840.1.229790.3.579.2.46 2 Unknown [id number] 2.16.840.1.363356.3.579.2.46 2 Unknown [id number] 2.16.840.1.202526.3.579.2.46 2 Unknown [id number] 2.16.840.1.209969.3.579.2.46 2 Unknown [id number] 2.16.840.1.820586.3.579.2.46 2 Unknown [id number] 2.16.840.1.119713.3.579.2.46 2 Unknown [id number] 2.16.840.1.558542.3.579.2.46 2 Unknown [id number] 2.16.840.1.920669.3.579.2.46 2 Unknown [id number] 2.16.840.1.326996.3.579.2.46 2 Unknown [id number] 2.16.840.1.461417.3.579.2.46 2 Unknown [id number] 2.16.840.1.523444.3.579.2.46 2 Unknown [id number] 2.16.840.1.017536.3.579.2.46 2 Unknown [id number] 2.16.840.1.758135.3.579.2.46 2 Unknown [id number] 2.16.840.1.851547.3.579.2.46 2 Unknown [id number] 2.16.840.1.249436.3.579.2.46 2 Unknown [id number] 2.16.840.1.397563.3.579.2.46 2 Unknown [id number] 2.16.840.1.794450.3.579.2.46 2 Social History Date Type Detail Facility Alcohol Use Never smoker [facility] Work Phone: Comment on above: Occasional alcohol u se never smoker Tobacco use: Never smoker. [facility] Work Phone: Comment on above: same status 01/20/12 Tobacco use: Tobacco use: [facility]; [facility] Work Phone: Comment on above: same status 01/20/12 Start: 07-15-2021 End: 06-03-2023 Tobacco smoking status IDIS Unknown if ever smoked [facility] Start: 02-12-2020 Non-smoker [facility] Start: 1955 Sex Assigned At Female [facility] Start: 08-05-2024 End: 04-02-2025 Tobacco smoking status NHIS Never smoked tobacco (finding) [facility] Start: 11-29-2024 Sex Female (finding) [facility] NEGATED: Highlighted row Not [facility] Medical Equipment Procedure Code Equipment Code Equipment Origin al Text Equipment Identifier Dates EGD, with monitored anesthesia care RESOLUTION 360 CLIP 235 CM FDA Start: 08-02-2024 EGD, with monitored anesthesia care RESOLUTION 360 CLIP 235 CM FDA Start: 08-02-2024 EGD, with monitored anesthesia care RESOLUTION 360 CLIP 235 CM FDA Start: 08-02-2024 EGD, with monitored anesthesia care RESOLUTION 360 CLIP 235 CM FDA Start: 08-02-2024 EGD, with monitored anesthesia care RESOLUTION 360 CLIP 235 CM FDA Start: 08-02-2024 EGD, with monitored anesthesia care RESOLUTION 360 CLIP 235 CM FDA Start: 08-02-2024 EGD, with monitored anesthesia care RESOLUTION 360 CLIP 235 CM FDA Start: 08-02-2024 EGD, with monitored anesthesia care RESOLUTION 360 CLIP 235 CM FDA Start: 08-02-2024 EGD, with monitored anesthesia care RESOLUTION 360 CLIP 235 CM FDA Start: 08-02-2024 Arthroplasty, hip, total, using robot-assisted navigation ([id number]) Ceramic femoral head prosthesis ()[id number] FDA Start: 07-16-2024 Arthroplasty, hip, total, using robot-assisted navigation ([id number]) Coated hip femur prosthesis, modular ()[id number] FDA Start: 07-16-2024 Arthroplasty, hip, total, using robot-assisted navigation ([id number]) Non-constrained polyethylene acetabular liner ()[id number] FDA Start: 07-16-2024 Arthroplasty, hip, total, using robot-assisted navigation ([id number]) Acetabular shell ()[id number] FDA Start: 07-16-2024 Arthroplasty, hip, total, using robot-assisted navigation ([id number]) Orthopaedic bone screw, non-bioabsorbable, sterile ()[id number] [id number] FDA Start: 07-16-2024 Arthroplasty, hip, total, using robot-assisted navigation ([id number]) Orthopaedic bone screw, non-bioabsorbable, sterile ()[id number] ND FDA Start: 07-16-2024 [place] 31G X 8 MM Miscellaneous as directed for 0 days Quantity: 30 {Each} Refills: 3 Ordered: 22-Feb-2021 Andre Bernardo LPN Start : 22-Feb-2021 Active Comments: Mail order. 01/17 Start: 02-22-2021 Comment on above: Mail order. 01/17 [place] 31G X 8 MM Miscellaneous as directed for 0 days Quantity: 30 {Each} Refills: 3 Ordered: 22-Feb-2021 Andre Bernardo LPN Start : 22-Feb-2021 Active Comments: 01/17 Start: 02-22-2021 Comment on above: 01/17 [place] 31G X 8 MM Miscellaneous as directed for 0 days Quantity: 30 {Each} Refills: 3 Ordered: 22-Feb-2021 Andre Bernardo LPN Start : 22-Feb-2021 Active Comments: Mail order. 01/17 Start: 02-22-2021 Comment on above: Mail order. 01/17 [place] 31G X 8 MM Miscellaneous as directed for 0 days Quantity: 30 {Each} Refills: 3 Ordered: 22-Feb-2021 Andre Bernardo LPN Start : 22-Feb-2021 Active Comments: 01/17 Start: 02-22-2021 Comment on above: 01/17 [place] 31G X 8 MM Miscellaneous as directed for 0 days Quantity: 30 {Each} Refills: 3 Ordered: 22-Feb-2021 Andre Bernardo LPN Start : 22-Feb-2021 Active Comments: Mail order. 01/17 Start: 02-22-2021 Comment on above: Mail order. 01/17 [place] 31G X 8 MM Miscellaneous as directed for 0 days Quantity: 30 {Each} Refills: 3 Ordered: 22-Feb-2021 Andre Bernardo LPN Start : 22-Feb-2021 Active Comments: 01/17 Start: 02-22-2021 Comment on above: 01/17 [place] 31G X 8 MM Miscellaneous as directed for 0 days Quantity: 30 {Each} Refills: 3 Ordered: 22-Feb-2021 Andre Bernardo LPN Start : 22-Feb-2021 Active Comments: Mail order. 01/17 Start: 02-22-2021 Comment on above: Mail order. 01/17 [place] 31G X 8 MM Miscellaneous as directed for 0 days Quantity: 30 {Each} Refills: 3 Ordered: 22-Feb-2021 Andre Bernardo LPN Start : 22-Feb-2021 Active Comments: 01/17 Start: 02-22-2021 Comment on above: 01/17 [place] 31G X 8 MM Miscellaneous as directed for 0 days Quantity: 30 {Each} Refills: 3 Ordered: 11-Mar-2021 Sakina Kelsey LPN Start : 22-Feb-2021 End : 11-Mar-2021 Discontinued Comments: 01/17 Start: 02-22-2021 End: 03-11-2021 Comment on above: 01/17 [place] 31G X 8 MM Miscellaneous as directed for 0 days Quantity: 30 {Each} Refills: 3 Ordered: 11-Mar-2021 Sakina Kelsey LPN Start : 22-Feb-2021 End : 11-Mar-2021 Discontinued Comments: Mail order. 01/17 Start: 02-22-2021 End: 03-11-2021 Comment on above: Mail order. 01/17 [place] 31G X 8 MM Miscellaneous as directed for 0 days Quantity: 30 {Each} Refills: 3 Ordered: 11-Mar-2021 Sakina Kelsey LPN Start : 22-Feb-2021 End : 11-Mar-2021 Discontinued Comments: 01/17 Start: 02-22-2021 End: 03-11-2021 Comment on above: 01/17 [place] 31G X 8 MM Miscellaneous as directed for 0 days Quantity: 30 {Each} Refills: 3 Ordered: 11-Mar-2021 Sakina Kelsey LPN Start : 22-Feb-2021 End : 11-Mar-2021 Discontinued Comments: Mail order. 01/17 Start: 02-22-2021 End: 03-11-2021 Comment on above: Mail order. 01/17 [place] 31G X 8 MM Miscellaneous as directed for 0 days Quantity: 30 {Each} Refills: 3 Ordered: 11-Mar-2021 Sakina Kelsey LPN Start : 22-Feb-2021 End : 11-Mar-2021 Discontinued Comments: 01/17 Start: 02-22-2021 End: 03-11-2021 Comment on above: 01/17 [place] 31G X 8 MM Miscellaneous as directed for 0 days Quantity: 30 {Each} Refills: 3 Ordered: 11-Mar-2021 Sakina Kelsey LPN Start : 22-Feb-2021 End : 11-Mar-2021 Discontinued Comments: Mail order. 01/17 Start: 02-22-2021 End: 03-11-2021 Comment on above: Mail order. 01/17 [place] 31G X 8 MM Miscellaneous as directed for 0 days Quantity: 30 {Each} Refills: 3 Ordered: 11-Mar-2021 Sakina Kelsey LPN Start : 22-Feb-2021 End : 11-Mar-2021 Discontinued Comments: 01/17 Start: 02-22-2021 End: 03-11-2021 Comment on above: 01/17 [place] 31G X 8 MM Miscellaneous as directed for 0 days Quantity: 30 {Each} Refills: 3 Ordered: 11-Mar-2021 Sakina Kelsey LPN Start : 22-Feb-2021 End : 11-Mar-2021 Discontinued Comments: Mail order. 01/17 Start: 02-22-2021 End: 03-11-2021 Comment on above: Mail order. 01/17 [place] 31G X 8 MM Miscellaneous as directed for 0 days Quantity: 30 {Each} Refills: 3 Ordered: 11-Mar-2021 Sakina Kelsey LPN Start : 22-Feb-2021 End : 11-Mar-2021 Discontinued Comments: 01/17 Start: 02-22-2021 End: 03-11-2021 Comment on above: 01/17 [place] 31G X 8 MM Miscellaneous as directed for 0 days Quantity: 30 {Each} Refills: 3 Ordered: 11-Mar-2021 Sakina Kelsey LPN Start : 22-Feb-2021 End : 11-Mar-2021 Discontinued Comments: Mail order. 01/17 Start: 02-22-2021 End: 03-11-2021 Comment on above: Mail order. 01/17 [place] 31G X 8 MM Miscellaneous as directed for 0 days Quantity: 30 {Each} Refills: 3 Ordered: 11-Mar-2021 Sakina Kelsey LPN Start : 22-Feb-2021 End : 11-Mar-2021 Discontinued Comments: 01/17 Start: 02-22-2021 End: 03-11-2021 Comment on above: 01/17 [place] 31G X 8 MM Miscellaneous as directed for 0 days Quantity: 30 {Each} Refills: 3 Ordered: 11-Mar-2021 Sakina Kelsey LPN Start : 22-Feb-2021 End : 11-Mar-2021 Discontinued Comments: Mail order. 01/17 Start: 02-22-2021 End: 03-11-2021 Comment on above: Mail order. 01/17 [place] 31G X 8 MM Miscellaneous as directed for 0 days Quantity: 30 {Each} Refills: 3 Ordered: 11-Mar-2021 Sakina Kelsey LPN Start : 22-Feb-2021 End : 11-Mar-2021 Discontinued Comments: 01/17 Start: 02-22-2021 End: 03-11-2021 Comment on above: 01/17 [place] 31G X 8 MM Miscellaneous as directed for 0 days Quantity: 30 {Each} Refills: 3 Ordered: 11-Mar-2021 Sakina Kelsey LPN Start : 22-Feb-2021 End : 11-Mar-2021 Discontinued Comments: Mail order. 01/17 Start: 02-22-2021 End: 03-11-2021 Comment on above: Mail order. 01/17 [place] 31G X 8 MM Miscellaneous as directed for 0 days Quantity: 30 {Each} Refills: 3 Ordered: 11-Mar-2021 Sakina Kelsey LPN Start : 22-Feb-2021 End : 11-Mar-2021 Discontinued Comments: 01/17 Start: 02-22-2021 End: 03-11-2021 Comment on above: 01/17 [place] 31G X 8 MM Miscellaneous as directed for 0 days Quantity: 30 {Each} Refills: 3 Ordered: 11-Mar-2021 Sakina Kelsey LPN Start : 22-Feb-2021 End : 11-Mar-2021 Discontinued Comments: Mail order. 01/17 Start: 02-22-2021 End: 03-11-2021 Comment on above: Mail order. 01/17 [place] 31G X 8 MM Miscellaneous as directed for 0 days Quantity: 30 {Each} Refills: 3 Ordered: 11-Mar-2021 Sakina Kelsey LPN Start : 22-Feb-2021 End : 11-Mar-2021 Discontinued Comments: 01/17 Start: 02-22-2021 End: 03-11-2021 Comment on above: 01/17 [place] 31G X 8 MM Miscellaneous as directed for 0 days Quantity: 30 {Each} Refills: 3 Ordered: 11-Mar-2021 Sakina Kelsey LPN Start : 22-Feb-2021 End : 11-Mar-2021 Discontinued Comments: Mail order. 01/17 Start: 02-22-2021 End: 03-11-2021 Comment on above: Mail order. 01/17 asymmetric patella FDA Start: 02-27-2020 cruciate retaini ng femoral FDA Start: 02-27-2020 tibial bearing i nsert cs FDA Start: 02-27-2020 tibial componenet FDA Start: 02-27-2020 asymmetric patella FDA Start: 02-27-2020 cruciate retaini ng femoral FDA Start: 02-27-2020 tibial bearing i nsert cs FDA Start: 02-27-2020 tibial componenet FDA Start: 02-27-2020 [place] 31G X 8 MM Miscellaneous as directed for 0 days Quantity: 30 {Each} Refills: 3 Ordered: 11-Mar-2021 Sakina Kelsey LPN Start : 22-Feb-2021 End : 11-Mar-2021 Discontinued Comments: Mail order. 01/17 Start: 02-22-2021 End: 03-11-2021 Comment on above: Mail order. 01/17 [place] 31G X 8 MM Miscellaneous as directed for 0 days Quantity: 30 {Each} Refills: 3 Ordered: 11-Mar-2021 Sakina Kelsey LPN Start : 22-Feb-2021 End : 11-Mar-2021 Discontinued Comments: 01/17 Start: 02-22-2021 End: 03-11-2021 Comment on above: 01/17 [place] 31G X 8 MM Miscellaneous as directed for 0 days Quantity: 30 {Each} Refills: 3 Ordered: 11-Mar-2021 Sakina Kelsey LPN Start : 22-Feb-2021 End : 11-Mar-2021 Discontinued Comments: Mail order. 01/17 Start: 02-22-2021 End: 03-11-2021 Comment on above: Mail order. 01/17 [place] 31G X 8 MM Miscellaneous as directed for 0 days Quantity: 30 {Each} Refills: 3 Ordered: 11-Mar-2021 Sakina Kelsey LPN Start : 22-Feb-2021 End : 11-Mar-2021 Discontinued Comments: 01/17 Start: 02-22-2021 End: 03-11-2021 Comment on above: 01/17 [place] 31G X 8 MM Miscellaneous as directed for 0 days Quantity: 30 {Each} Refills: 3 Ordered: 11-Mar-2021 Sakina Kelsey LPN Start : 22-Feb-2021 End : 11-Mar-2021 Discontinued Comments: Mail order. 01/17 Start: 02-22-2021 End: 03-11-2021 Comment on above: Mail order. 01/17 [place] 31G X 8 MM Miscellaneous as directed for 0 days Quantity: 30 {Each} Refills: 3 Ordered: 11-Mar-2021 Sakina Kelsey LPN Start : 22-Feb-2021 End : 11-Mar-2021 Discontinued Comments: 01/17 Start: 02-22-2021 End: 03-11-2021 Comment on above: 01/17 [place] 31G X 8 MM Miscellaneous as directed for 0 days Quantity: 30 {Each} Refills: 3 Ordered: 11-Mar-2021 Sakina Kelsey LPN Start : 22-Feb-2021 End : 11-Mar-2021 Discontinued Comments: Mail order. 01/17 Start: 02-22-2021 End: 03-11-2021 Comment on above: Mail order. 01/17 [place] 31G X 8 MM Miscellaneous as directed for 0 days Quantity: 30 {Each} Refills: 3 Ordered: 11-Mar-2021 Sakina Kelsey LPN Start : 22-Feb-2021 End : 11-Mar-2021 Discontinued Comments: 01/17 Start: 02-22-2021 End: 03-11-2021 Comment on above: 01/17 [place] 31G X 8 MM Miscellaneous as directed for 0 days Quantity: 30 {Each} Refills: 3 Ordered: 11-Mar-2021 Sakina Kelsey LPN Start : 22-Feb-2021 End : 11-Mar-2021 Discontinued Comments: Mail order. 01/17 Start: 02-22-2021 End: 03-11-2021 Comment on above: Mail order. 01/17 [place] 31G X 8 MM Miscellaneous as directed for 0 days Quantity: 30 {Each} Refills: 3 Ordered: 11-Mar-2021 Sakina Kelsey LPN Start : 22-Feb-2021 End : 11-Mar-2021 Discontinued Comments: 01/17 Start: 02-22-2021 End: 03-11-2021 Comment on above: 01/17 asymmetric patella FDA Start: 02-27-2020 cruciate retaini ng femoral FDA Start: 02-27-2020 tibial bearing i nsert cs FDA Start: 02-27-2020 tibial componenet FDA Start: 02-27-2020 asymmetric patella FDA Start: 02-27-2020 cruciate retaini ng femoral FDA Start: 02-27-2020 tibial bearing i nsert cs FDA Start: 02-27-2020 tibial componenet FDA Start: 02-27-2020 [place] 31G X 8 MM Miscellaneous as directed for 0 days Quantity: 30 {Each} Refills: 3 Ordered: 11-Mar-2021 Sakina Kelsey LPN Start : 22-Feb-2021 End : 11-Mar-2021 Discontinued Comments: Mail order. 01/17 Start: 02-22-2021 End: 03-11-2021 Comment on above: Mail order. 01/17 [place] 31G X 8 MM Miscellaneous as directed for 0 days Quantity: 30 {Each} Refills: 3 Ordered: 11-Mar-2021 Sakina Kelsey LPN Start : 22-Feb-2021 End : 11-Mar-2021 Discontinued Comments: 01/17 Start: 02-22-2021 End: 03-11-2021 Comment on above: 01/17 [place] 31G X 8 MM Miscellaneous as directed for 0 days Quantity: 30 {Each} Refills: 3 Ordered: 11-Mar-2021 Sakina Kelsey LPN Start : 22-Feb-2021 End : 11-Mar-2021 Discontinued Comments: Mail order. 01/17 Start: 02-22-2021 End: 03-11-2021 Comment on above: Mail order. 01/17 [place] 31G X 8 MM Miscellaneous as directed for 0 days Quantity: 30 {Each} Refills: 3 Ordered: 11-Mar-2021 Sakina Kelsey LPN Start : 22-Feb-2021 End : 11-Mar-2021 Discontinued Comments: 01/17 Start: 02-22-2021 End: 03-11-2021 Comment on above: 01/17 [place] 31G X 8 MM Miscellaneous as directed for 0 days Quantity: 30 {Each} Refills: 3 Ordered: 11-Mar-2021 Sakina Kelsey LPN Start : 22-Feb-2021 End : 11-Mar-2021 Discontinued Comments: Mail order. 01/17 Start: 02-22-2021 End: 03-11-2021 Comment on above: Mail order. 01/17 [place] 31G X 8 MM Miscellaneous as directed for 0 days Quantity: 30 {Each} Refills: 3 Ordered: 11-Mar-2021 Sakina Kelsey LPN Start : 22-Feb-2021 End : 11-Mar-2021 Discontinued Comments: 01/17 Start: 02-22-2021 End: 03-11-2021 Comment on above: 01/17 asymmetric patella FDA Start: 02-27-2020 cruciate retaini ng femoral FDA Start: 02-27-2020 tibial bearing i nsert cs FDA Start: 02-27-2020 tibial componenet FDA Start: 02-27-2020 asymmetric patella FDA Start: 02-27-2020 cruciate retaini ng femoral FDA Start: 02-27-2020 tibial bearing i nsert cs FDA Start: 02-27-2020 tibial componenet FDA Start: 02-27-2020 [place] 31G X 8 MM Miscellaneous as directed for 0 days Quantity: 30 {Each} Refills: 3 Ordered: 11-Mar-2021 Sakina Kelsey LPN Start : 22-Feb-2021 End : 11-Mar-2021 Discontinued Comments: Mail order. 01/17 Start: 02-22-2021 End: 03-11-2021 Comment on above: Mail order. 01/17 [place] 31G X 8 MM Miscellaneous as directed for 0 days Quantity: 30 {Each} Refills: 3 Ordered: 11-Mar-2021 Sakina Kelsey LPN Start : 22-Feb-2021 End : 11-Mar-2021 Discontinued Comments: 01/17 Start: 02-22-2021 End: 03-11-2021 Comment on above: 01/17 asymmetric patella FDA Start: 02-27-2020 cruciate retaini ng femoral FDA Start: 02-27-2020 tibial bearing i nsert cs FDA Start: 02-27-2020 tibial componenet FDA Start: 02-27-2020 [place] 31G X 8 MM Miscellaneous as directed for 0 days Quantity: 30 {Each} Refills: 3 Ordered: 11-Mar-2021 Sakina Kelsey LPN Start : 22-Feb-2021 End : 11-Mar-2021 Discontinued Comments: Mail order. 01/17 Start: 02-22-2021 End: 03-11-2021 Comment on above: Mail order. 01/17 [place] 31G X 8 MM Miscellaneous as directed for 0 days Quantity: 30 {Each} Refills: 3 Ordered: 11-Mar-2021 Sakina Kelsey LPN Start : 22-Feb-2021 End : 11-Mar-2021 Discontinued Comments: 01/17 Start: 02-22-2021 End: 03-11-2021 Comment on above: 01/17 asymmetric patella FDA Start: 02-27-2020 cruciate retaini ng femoral FDA Start: 02-27-2020 tibial bearing i nsert cs FDA Start: 02-27-2020 tibial componenet FDA Start: 02-27-2020 [place] 31G X 8 MM Miscellaneous as directed for 0 days Quantity: 30 {Each} Refills: 3 Ordered: 11-Mar-2021 Sakina Kelsey LPN Start : 22-Feb-2021 End : 11-Mar-2021 Discontinued Comments: Mail order. 01/17 Start: 02-22-2021 End: 03-11-2021 Comment on above: Mail order. 01/17 [place] 31G X 8 MM Miscellaneous as directed for 0 days Quantity: 30 {Each} Refills: 3 Ordered: 11-Mar-2021 Sakina Kelsey LPN Start : 22-Feb-2021 End : 11-Mar-2021 Discontinued Comments: 01/17 Start: 02-22-2021 End: 03-11-2021 Comment on above: 01/17 [place] 31G X 8 MM Miscellaneous as directed for 0 days Quantity: 30 {Each} Refills: 3 Ordered: 11-Mar-2021 Sakina Kelsey LPN Start : 22-Feb-2021 End : 11-Mar-2021 Discontinued Comments: Mail order. 01/17 Start: 02-22-2021 End: 03-11-2021 Comment on above: Mail order. 01/17 [place] 31G X 8 MM Miscellaneous as directed for 0 days Quantity: 30 {Each} Refills: 3 Ordered: 11-Mar-2021 Sakina Kelsey LPN Start : 22-Feb-2021 End : 11-Mar-2021 Discontinued Comments: 01/17 Start: 02-22-2021 End: 03-11-2021 Comment on above: 01/17 asymmetric patella FDA Start: 02-27-2020 cruciate retaini ng femoral FDA Start: 02-27-2020 tibial bearing i nsert cs FDA Start: 02-27-2020 tibial componenet FDA Start: 02-27-2020 [place] 31G X 8 MM Miscellaneous as directed for 0 days Quantity: 30 {Each} Refills: 3 Ordered: 11-Mar-2021 Sakina Kelsey LPN Start : 22-Feb-2021 End : 11-Mar-2021 Discontinued Comments: Mail order. 01/17 Start: 02-22-2021 End: 03-11-2021 Comment on above: Mail order. 01/17 [place] 31G X 8 MM Miscellaneous as directed for 0 days Quantity: 30 {Each} Refills: 3 Ordered: 11-Mar-2021 Sakina Kelsey LPN Start : 22-Feb-2021 End : 11-Mar-2021 Discontinued Comments: 01/17 Start: 02-22-2021 End: 03-11-2021 Comment on above: 01/17 asymmetric patella FDA Start: 02-27-2020 cruciate retaini ng femoral FDA Start: 02-27-2020 tibial bearing i nsert cs FDA Start: 02-27-2020 tibial componenet FDA Start: 02-27-2020 asymmetric patella FDA Start: 02-27-2020 cruciate retaini ng femoral FDA Start: 02-27-2020 tibial bearing i nsert cs FDA Start: 02-27-2020 tibial componenet FDA Start: 02-27-2020 asymmetric patella FDA Start: 02-27-2020 cruciate retaini ng femoral FDA Start: 02-27-2020 tibial bearing i nsert cs FDA Start: 02-27-2020 tibial componenet FDA Start: 02-27-2020 asymmetric patella FDA Start: 02-27-2020 cruciate retaini ng femoral FDA Start: 02-27-2020 tibial bearing i nsert cs FDA Start: 02-27-2020 tibial componenet FDA Start: 02-27-2020 asymmetric patella FDA Start: 02-27-2020 cruciate retaini ng femoral FDA Start: 02-27-2020 tibial bearing i nsert cs FDA Start: 02-27-2020 tibial componenet FDA Start: 02-27-2020 [employer] [place], 2mm, 48 with [employer] Shuttle Suture FDA Start: 07-28-2024 [employer]ape [place], 2mm, 48 with [employer] Shuttle Suture FDA Start: 07-28-2024 [employer]ape [place], 2mm, 48 with [employer] Shuttle Suture FDA Start: 07-28-2024 ([id number]) Internal orthopa edic fixation system, plate/screw, non-bioabsorbable, sterile ()[id number] FDA Start: 07-28-2024 ([id number]) Ceramic femoral head prosthesis ()[id number] FDA Start: 07-28-2024 ([id number]) Press-fit femora l stem prosthesis ()[id number] FDA Start: 07-28-2024 Press-fit femora l stem prosthesis ()[id number] FDA Start: 07-28-2024 asymmetric patella FDA Start: 02-27-2020 cruciate retaini ng femoral FDA Start: 02-27-2020 tibial bearing i nsert cs FDA Start: 02-27-2020 tibial componenet FDA Start: 02-27-2020 FiberTape Cercla ge, 2mm, 48 with [employer]Link Shuttle Suture FDA Start: 07-28-2024 FiberTape Cercla ge, 2mm, 48 with [employer] Shuttle Suture FDA Start: 07-28-2024 FiberTape Cercla ge, 2mm, 48 with [employer] Shuttle Suture FDA Start: 07-28-2024 asymmetric patella FDA Start: 02-27-2020 cruciate retaini ng femoral FDA Start: 02-27-2020 tibial bearing i nsert cs FDA Start: 02-27-2020 tibial componenet FDA Start: 02-27-2020 FiberTape Cercla ge, 2mm, 48 with [employer] Shuttle Suture FDA Start: 07-28-2024 FiberTape Cercla ge, 2mm, 48 with [employer]Link Shuttle Suture FDA Start: 07-28-2024 FiberTape Cercla ge, 2mm, 48 with [employer] Shuttle Suture FDA Start: 07-28-2024 asymmetric patella FDA Start: 02-27-2020 cruciate retaini ng femoral FDA Start: 02-27-2020 tibial bearing i nsert cs FDA Start: 02-27-2020 tibial componenet FDA Start: 02-27-2020 FiberTape Cercla ge, 2mm, 48 with [employer]Link Shuttle Suture FDA Start: 07-28-2024 FiberTape Cercla ge, 2mm, 48 with [employer] Shuttle Suture FDA Start: 07-28-2024 FiberTape Cercla ge, 2mm, 48 with [employer]Link Shuttle Suture FDA Start: 07-28-2024 asymmetric patella FDA Start: 02-27-2020 cruciate retaini ng femoral FDA Start: 02-27-2020 tibial bearing i nsert cs FDA Start: 02-27-2020 tibial componenet FDA Start: 02-27-2020 FiberTape Cercla ge, 2mm, 48 with [employer]Link Shuttle Suture FDA Start: 07-28-2024 FiberTape Cercla ge, 2mm, 48 with [employer]Link Shuttle Suture FDA Start: 07-28-2024 FiberTape Cercla ge, 2mm, 48 with [employer]Link Shuttle Suture FDA Start: 07-28-2024 asymmetric patella FDA Start: 02-27-2020 cruciate retaini ng femoral FDA Start: 02-27-2020 tibial bearing i nsert cs FDA Start: 02-27-2020 tibial componenet FDA Start: 02-27-2020 FiberTape Cercla ge, 2mm, 48 with [employer]Link Shuttle Suture FDA Start: 07-28-2024 FiberTape Cercla ge, 2mm, 48 with [employer]Link Shuttle Suture FDA Start: 07-28-2024 FiberTape Cercla ge, 2mm, 48 with [employer]Link Shuttle Suture FDA Start: 07-28-2024 asymmetric patella FDA Start: 02-27-2020 cruciate retaini ng femoral FDA Start: 02-27-2020 tibial bearing i nsert cs FDA Start: 02-27-2020 tibial componenet FDA Start: 02-27-2020 FiberTape Cercla ge, 2mm, 48 with [employer]Link Shuttle Suture FDA Start: 07-28-2024 FiberTape Cercla ge, 2mm, 48 with [employer]Link Shuttle Suture FDA Start: 07-28-2024 FiberTape Cercla ge, 2mm, 48 with [employer]Link Shuttle Suture FDA Start: 07-28-2024 asymmetric patella FDA Start: 02-27-2020 cruciate retaini ng femoral FDA Start: 02-27-2020 tibial bearing i nsert cs FDA Start: 02-27-2020 tibial componenet FDA Start: 02-27-2020 FiberTape Cercla ge, 2mm, 48 with [employer]Link Shuttle Suture FDA Start: 07-28-2024 FiberTape Cercla ge, 2mm, 48 with [employer]Link Shuttle Suture FDA Start: 07-28-2024 FiberTape Cercla ge, 2mm, 48 with [employer]Link Shuttle Suture FDA Start: 07-28-2024 asymmetric patella FDA Start: 02-27-2020 cruciate retaini ng femoral FDA Start: 02-27-2020 tibial bearing i nsert cs FDA Start: 02-27-2020 tibial componenet FDA Start: 02-27-2020 FiberTape Cercla ge, 2mm, 48 with [employer]Link Shuttle Suture FDA Start: 07-28-2024 FiberTape Cercla ge, 2mm, 48 with [employer]Link Shuttle Suture FDA Start: 07-28-2024 FiberTape Cercla ge, 2mm, 48 with [employer]Link Shuttle Suture FDA Start: 07-28-2024 Goals Date Patient Goal Desired Activity /State Functional Status Date Assessment Result Facility 08-24-2024 Functional status [facility] Work Phone: 08-23-2024 Functional status Tolerates Acti vity Well [facility] Work Phone: 08-05-2024 Functional status [facility] Work Phone: 04-17-2020 LP-IR Score LP-IR Score <25 [facility] Work Phone: Comment on above: INSULIN RESISTANCE Izabela FUENTES <--Insulin Sensitive Insulin Resistant--> Percentile in Reference PopulationInsulin Resistance ScoreLP-IR Score Low 25th 50th 75th High <27 27 45 63 >63LP-IR Score is inaccurate if patient is non-fasting. .The LP-IR score is a laboratory developed index that has beenassociated with insulin resistance and diabetes risk and should beused as one component of a physician's clinical assessment. Test(s) 976428-WST-T ; 011436-UIL-I; 731991-SMA-B; 175398-Sqmsfkiofzhzm; 606865-Nlhltjclojc, Total; 723451-VAG-Q (Total);840593-Agyaj LDL-P; 259602-PUQ Size; 454146-CK-TK Scorewas developed and its performance characteristics determinedby [facility]. It has not been cleared or approved by the Foodand Drug Administration.PATIENT WAS FASTINGPERFORMED BY: [employer] [id number] BY: [facility] [facility] [id number] 04-27-2018 LP-IR Score LP-IR Score 41 [facility] Work Phone: Comment on above: INSULIN RESISTANCE Izabela FUENTES <--Insulin Sensitive Insulin Resistant--> Percentile in Reference PopulationInsulin Resistance ScoreLP-IR Score Low 25th 50th 75th High <27 27 45 63 >63LP-IR Score is inaccurate if patient is non-fasting. .The LP-IR score is a laboratory developed index that has beenassociated with insulin resistance and diabetes risk and should beused as one component of a physician's clinical assessment. TheLP-IR score listed above has not been cleared by the [place] Food andDrug Administration. PATIENT WAS FASTINGP ERFORMED BY: [employer] [facility] [place] [address] [facility] [id number] BY: [facility] [facility] [id number] Mental Status Date Assessment Result Facility 08-24-2024 Cognitive function Voice/Name [facility] Work Phone: 08-23-2024 Cognitive function Appropriate;Estelle e [facility] Work Phone: 08-05-2024 Cognitive function Voice/Name [facility] Work Phone: Clinical Notes 12-11-2020 to 04-02-2025 Note Date & Type Note Facility 04-02-2025 Discharge summary [facility] 04-02-2025 Radiology Diagnostic study note [facility] Imaging Services [address] [place] [address] Abdomen/Pelvis W IV Cont ONLY MR#: [id number] Acct: [id number] Name: GUNJAN CONNELL Rep #: [id number] : 1955 F 70 From: Iman Olivares MD PCP: Dr. Patt Jones DO Status: RE G ER Study:Abdomen/Pelvis W IV Cont ONLY Date of E xam: 04/02/25 Exam# [id number] Ordering Dr: Brady Don DO PROCEDURE: ABDOMEN/PELVIS W IV CONT ONLY 04/02/2025 REASON FOR EXAM: ABDOMINAL PAIN TECHNIQUE: ABDOMEN/PELVIS W IV CONT ONLY Coronal and Sagittal reconstruction series were provided. CONTRAST: 100 mL of Isovue 370 One or more dose reduction techniques were used (e.g., Automated exposure control, adjustment of the mA and/or kV according to patient size, use of iterative reconstruction technique. RADIATION DOSE SUMMARY: DLP: 789 mGycm COMPARISON: CT from 02/19/25 FINDINGS: Limited sections of the lung bases demonstrate no focal pulmonary mass or consolidations. The spleen, pancreas, and both adrenal glands demonstrate no acute findings. Ill-defined left hepatic lobe hypodensity spanning 4.2 x 3.6 cm which may reflect neoplastic process, infarction, and/or filling artifact. The gallbladder is surgically removed. The stomach is unremarkable. The small bowel loops are not dilated. The appendix is not clearly identified, although there are no secondary signs ofappendicitis. Diffuse colonic inflammation and thickening which may reflect pancolitis. No bowel obstruction. Extensive colonic diverticulosis without acute diverticulitis. There is no free air or significant free fluid. The kidneys are unremarkable. The urinary bladder is not distended. The pelvic structures are intact. There is no solid pelvic mass. No significant lymphadenopathy. Prior hysterectomy. The aorta and IVC demonstrate no acute findings. Extensive atherosclerosis of the abdominal vasculature. Extensive multilevel degenerative changes of the lumbar spine. No acute fractures. Unremarkable metallic prosthesis of the right hip. CT/Abdomen/Pelvis W IV Cont ONLY IMPRESSION: Diffuse colonic inflammation and thickening which may reflect pancolitis. No bowel obstruction. Extensive colonic diverticulosis without acute diverticulitis. Ill-defined left hepatic lobe hypodensity spanning 4.2 x 3.6 cm which may reflect neoplastic process, infarction, and/or filling artifact. Consider multiphasic CT/MR for further evaluation. Reading Location: [facility] CC: Dr. Brady Marin DO; Dr. Patt Jones DO ~ Annealing Furnace Operator: Signed [facility] 04-02-2025 Discharge summary Note Date/Time April 02, 2025 5:59pm [facility] Medical Records Department [address] [place] [address] Emergency Department Summary 04/02/25 MR#: [id number] Acct: [id number] Name: GUNJAN CONNELL Rep #:[id number] : 1955 70 From: Brady stanley DO PCP: Dr. Patt Jones DO Status:RE G ER Location: ED ADDENDUM by Dr. Oliver Valles DO on 04/02/25 at 1759 Care of the patient was turned over to me pending CT scan and lab work. CBC wasreviewed. Hemoglobin was stable at 11.8 and hematocrit 35.9.. There is a mild leukocytosis of 17.0. Comprehensive metabolic profile was reviewed and was within normal limits. Lipase was reviewed and was normal. Urinalysis was reviewed. There is no evidence of urinary tract infection or hematuria. CT scan of the abdomen pelvis was reviewed. There is evidence of pancolitis. There is no evidence of bowel obstruction or perforation. There is no free air or free fluid. There is diverticulosis but no evidence of diverticulitis. Thiswas interpreted by the radiologist as also independently reviewed by myself. Patient was advised of her findings. Patient was given her first dose of oral vancomycin here. Patient was given prescription for oral vancomycin. Patient was feeling better on reevaluation. Patient was instructed to start with a liquid diet and advance as tolerated. Patient was instructed to follow-up with her primary care physician in 5 to 7 days. Patient was instructed to return if worse in any way. Patient understood and was agreeable with the plan. All questions were answered. 04/02/25 1759<Electronically signed by Oliver Valles DO> Cosigner Signature (if applicable): cc: Dr. Patt Jones DO ~* Signed ADDENDUM by Dr. Brady Marin DO on 04/02/25 at 1632 UA negative for UTI. 04/02/25 1632<Electronically signed by Brady Marin DO> Cosigner Signature (if applicable): cc: Dr. Patt Jones DO ~* Signed HPI History of Present Illness Chief Complaint: Abd Pain Narrative Narrative: Chief complaint and HPI: Abdominal pain. 70-year-old female presents for evaluation of abdominal pain and dark stools. Patient has a past medical history of rheumatoid arthritis in which she is on methotrexate. Patient statesshe has been having abdominal pain for the past several weeks. States her PCP is treating her for diverticulitis. States she has been on multiple different antibiotics. Has not had any imaging. No history of prior diverticulitis. Shestates 2 days ago her bowel movements became dark in color which is why she presents. She denies any fever, chills, shortness of breath, chest pain, nausea, vomiting, constipation, dysuria. Endorses diarrhea and decreased p.o intake. Review of systems: See HPI Medications: As listed on the chart Allergies: As listed on the chart PFSH: Per chart Vital signs: As listed on the chart. Reviewed. Physical exam: Gen: A&O x3, NAD Head: Normocephalic, atraumatic Eyes: No sclera icterus, conjunctiva clear ENT: Moist mucous membranes Neck: Trachea midline, No JVD CV: RRR, no murmurs, no peripheral edema Resp: Lungs CTA BL, no w/r/c GI: Abd soft, non-distended, mildly tender to palpation diffusely, no r/r/g Rectal: Normal external examination. No evidence of hemorrhoids or fissures. Normal tone and sensation. No masses, fluctuance, or tenderness. No pain out of proportion. Stool light in color on gloved finger. : No CVA tenderness Musc: Full ROM, no deformity Skin: Warm, dry Neuro: Alert, oriented, grossly intact, sensation intact Psych: Cooperative, appropriate mood and affect 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 Tonsillectomy planned Hx of cataract Home Medications ?Medication ?Instructions ?Recorded ?Last Taken ?Type folic acid 1 mg tablet 1 mg PO DAILYCM Supplement # 0 tabs 08/05/24 01/12/25 Rx acetaminophen 500 mg tablet 1,000 mg (2 x 500 mg) PO Q 8 #0 tabs 08/19/24 01/11/25 Rx doxepin 25 mg capsule 25 mg PO QHS 30 days #30 cap s 08/19/24 Unknown Rx methotrexate sodium 2.5 mg tablet 15 mg (6 x 2.5 mg) P O We@1000 #0 08/19/24 01/08/25 Rx tabs cholecalciferol (vitamin D3) 125 250 mcg PO DAILY 01/0201/12/25 History mcg (5,000 unit) capsule ibuprofen 200 mg tablet (Advil) 400 mg PO Q6H PRN pain 01/12/25 01/11/25 History tramadol 50 mg tablet 50 mg PO 4X/DAY PRN PRN pain 4 01/12/25 Unknown Rx days #15 tabs vancomycin 125 mg capsule 125 mg PO Q6H 10 days #40 ca ps 04/02/25 Unknown Rx (Vancocin) Allergy/AdvReac Type Severity Reaction Status Date / Time latex AdvReac Intermediate Rash Verified 04/02/25 14:06 Surgical History History of revision of total replacement of right hip joint History of hysterectomy History of carpal tunnel release of both wrists Hx of removal of cyst Hx of arthroscopy of right knee Hx of cholecystectomy Social History household members: spouse Smoking Status: Never smoker alcohol intake: never substance use type: does not use EXAM Physical Exam Const Vital Signs: 04/02/25 14:04 04/02/25 16:04 Temperature 99.0 F Temperature Source Oral Pulse Rate 118 H 95 Respiratory Rate 16 18 Blood Pressure 144/65 H 167/44 H Blood Pressure Mean 91 85 Pulse Ox 99 98 Oxygen Delivery Method Room Air Room Air MDM MDM MDM Narrative Medical decision making narrative: 70-year-old female presents for evaluation of abdominal pain and dark stools. Patient has a past medical history of rheumatoid arthritis in which she is on methotrexate. Patient states she has been having abdominal pain for the past several weeks. States her PCP is treating her for diverticulitis. States she has been on multiple different antibiotics. Has not had any imaging. No history of prior diverticulitis. Differential diagnosis includes but is not limited to gastroenteritis, diverticulitis, pancreatitis, UTI, electrolyte abnormality, GI bleed, C. difficile. NS bolus ordered. Laboratory workup ordered including CT abdomen pelvis. BMP relatively unremarkable except for mild dehydration without DIMA or significant electrolyte abnormality. No transaminitis. Lipase unremarkable. Stool occult positive however patient now tells me that she has been taking Pepto-Bismol over the last several days. Thiscan cause a false positive. She did have a bowel movement here in the emergencydepartment that was not dark in color. Will add on gastrointestinal panel with C. difficile. Patient is positive for C. difficile. This is likely the cause of her diarrhea and abdominal pain. She has been on multiple antibiotics. Thiswould also explain her stool occult. P.o. vancomycin ordered, first dose here. Also written for vancomycin prescription. CBC, UA, CT abdomen pelvis pending atthis time. Patient was signed out to oncoming provider Dr. Valles. Disposition pending results. Lab Data Labs: Laboratory Results - last 24 hr 04/02/25 04/02/25 04/02/25 14:28 14:28 15:31 WBC Cancelled Corrected WBC Cancelled RBC Cancelled Hgb Cancelled Hct Cancelled MCV Cancelled MCH Cancelled MCHC Cancelled RDW Std Deviation Cancelled RDW Coeff of Oly Cancelled Plt Count Cancelled MPV Cancelled Immature Gran % (Auto) Cancelled Neut % (Auto) Cancelled Lymph % (Auto) Cancelled Banner % (Auto) Cancelled Eos % (Auto) Cancelled Baso % (Auto) Cancelled Absolute Neuts (auto) Cancelled Absolute Lymphs (auto) Cancelled Total Counted Cancelled Neutrophils % (Manual) Cancelled Band Neutrophils % Cancelled Lymphocytes % (Manual) Cancelled Monocytes % (Manual) Cancelled Eosinophils % (Manual) Cancelled Basophils % (Manual) Cancelled Metamyelocytes % Cancelled Myelocytes % Cancelled Promyelocytes % Cancelled Blast Cells % Cancelled Plasma Cell % (Manual) Cancelled Other Cells % Cancelled Nucleated RBC % Cancelled Nucleated RBCs/100 WBC Cancelled Differential Comment Cancelled Diff Path Review Cancelled Hypersegmented Neuts Cancelled Atypical Lymphocytes Cancelled Reactive Lymphocytes Cancelled Smudge Cells Cancelled Toxic Granulation Cancelled Toxic Vacuolation Cancelled Dohle Bodies Cancelled Sai Rods Cancelled Platelet Estimate Cancelled Plt Morphology Comment Cancelled RBC Morphology Cancelled Cancelled Polychromasia Cancelled Hypochromasia Cancelled Basophilic Stippling Cancelled Anisocytosis Cancelled Microcytosis Cancelled Macrocytosis Cancelled Spherocytes Cancelled Sickle Cells Cancelled Target Cells Cancelled Tear Drop Cells Cancelled Ovalocytes Cancelled Stomatocytes Cancelled Kaur-[place] Bodies Cancelled Feura Bush Cells Cancelled Bite Cells Cancelled Crenated Cell Cancelled Acanthocytes (Spur) Cancelled Rouleaux Cancelled Schistocytes Cancelled Sodium 141 Potassium 3.5 Chloride 102 Carbon Dioxide 23.4 Anion Gap 16 H BUN 16 Creatinine 0.80 Est GFR (MDRD) Non-Af 78 BUN/Creatinine Ratio 19.4 Glucose 103 H Lactic Acid 1.3 Calcium 9.9 Total Bilirubin 0.49 AST 22 ALT 8 Alkaline Phosphatase 117 H Total Protein 7.3 Albumin 4.0 Globulin 3.2 Albumin/Globulin Ratio 1.2 Lipase 21 Urine Color Yellow Urine Clarity Clear Urine pH 6.0 Ur Specific Hughes 1.025 Urine Protein 15 H Urine Glucose (UA) Normal Urine Ketones 15 H Urine Occult Blood 50 H Urine Nitrite Negative Urine Bilirubin Negative Urine Urobilinogen Normal Ur Leukocyte Esterase Negative Discharge Plan Triage Chief Complaint: Abd Pain ED Provider: Brady Marin Dx/Rx/DC Orders Clinical Impression: Clostridioides difficile infection Instructions: C Diff Infect, What Is C. Diff? Prescriptions: New vancomycin [Vancocin] 125 mg capsule 125 mg PO Q6H 10 Days Qty: 40 0RF No Action folic acid 1 mg Tablet 1 mg PO DAILYCM Qty: 0 0RF doxepin 25 mg Capsule 25 mg PO QHS 30 Days Qty: 30 0RF acetaminophen 500 mg Tablet 1,000 mg PO Q8 Qty: 0 0RF methotrexate sodium 2.5 mg Tablet 15 mg PO We@1000 Qty: 0 0RF ibuprofen [Advil] 200 mg tablet 400 mg PO Q6H PRN (Reason: pain) cholecalciferol (vitamin D3) 125 mcg (5,000 unit) capsule 250 mcg PO DAILY tramadol 50 mg tablet 50 mg PO 4X/DAY PRN PRN (Reason: pain) 4 Days Qty: 15 0RF Primary Care Provider: Patt Jones Referrals: Patt Jones DO [Primary Care Provider] - 3-5 Days Activity Restrictions/Additional Instructions: Stop taking your antibiotics prescribed by your primary care physician. Start taking the vancomycin. You received your first dose here in the emergency department. Follow-up with your primary care physician. Return back to the ED if symptoms change or worsen. Print Language: Scottish Disposition Disposition: Home, Self Care What to do if you have Problems For any increased pain, shortness of breath, bleeding, nausea or vomiting, chestpain, or any unexpected problems, contact your Primary Care Provider. Call [facility] ([phone]) or report to the closest Emergency Room. Call 911 if necessary. 04/02/25 1631 <Electronically signed by Brady Marin DO> Cosigner Signature (if applicable): CC: Dr. Patt Jones DO ~ Signed [facility] Work Phone: 1(692) 186-882507-07-2025 Evaluation note* Diagnosis Onset Date Resolution Status Admit Date Acute pain of left hip acute Ju ly 2024 11:04am [facility] Work Phone: 1(838) 473-619307-07-2025 Evaluation note* Diagnosis Onset Date Resolution Status Admit Date Acute pain of left hip acute Ju ly 2024 11:04am Bilateral lower extremity edema acut e March 21, 2025 11:02am [facility] Work Phone: 1(287) 228-250207-07-2025 [facility] [address] [place] [address] OFFICE VISIT Date of Service: 03/10/25 MR#: [id number] Acct: [id number] Patient: GUNJAN CONNELL Rep #: [id number] : 1955 Provider: TONY Taylor Age/Sex: 70/F Location: [facility] Status: Signed Intake Vital Signs 01/12/25 14:05 03/10/25 11:22 Height 4 ft 11 in BP 125/85 H Blood Pressure Location Lt brachial Position Sitting Respiration 16 Pulse 71 Pulse Source Monitor Temp 98.1 F Temp Source Oral Pulse Oximetry (%) 98 Intake Visit Reasons: L HIP PAIN FROM FALL Chief Complaint: left Hip pain Vaccine Key 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 Leader Required: No Accompanied by: Is patient in pain?: Yes Pain scale (1-10): 7 Allergies latex Adverse Reaction (Intermediate, Verified 03/10/25 11:15) Rash Medications ?Medication ?Instructions ?Recorded ?Confirmed ?Type folic acid 1 mg tablet 1 mg PO DAILYCM Supplement # 0 tabs 08/05/24 03/10/25 Rx acetaminophen 500 mg tablet 1,000 mg (2 x 500 mg) PO Q 8 #0 tabs 08/19/24 01/12/25 Rx doxepin 25 mg capsule 25 mg PO QHS 30 days #30 cap s 08/19/24 03/10/25 Rx methotrexate sodium 2.5 mg tablet 15 mg (6 x 2.5 mg) P O We@1000 #0 08/19/24 01/12/25 Rx tabs cholecalciferol (vitamin D3) 125 250 mcg PO DAILY 01/0203/10/25 History mcg (5,000 unit) capsule ibuprofen 200 mg tablet (Advil) 400 mg PO Q6H PRN pain 01/12/25 03/10/25 History tramadol 50 mg tablet 50 mg PO 4X/DAY PRN PRN pain 4 01/12/25 03/10/25 Rx days #15 tabs Have you fallen in the past year?: Yes Nurse's Note: 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 Pain mostly on back side about a 7 [facility] 10. [facility] History Postoperative anemia Wears glasses Wears dentures Loss of hearing Marijuana use Walker as ambulation aid PONV (postoperative nausea and vomiting) Shortness of breath on exertion Non-smoker Leg cramps History of edema Cochlear implant in place Tonsillectomy planned Hx of cataract Surgical History History of revision of total replacement of right hip joint History of hysterectomy History of carpal tunnel release of both wrists Hx of removal of cyst Hx of arthroscopy of right knee Hx of cholecystectomy Social History household members: spouse Smoking Status: Never smoker alcohol intake: never substance use type: does not use HPI HPI Chief Complaint: left Hip pain Details: GUNJAN CONNELL, is a 70 F who presents to the office today for buttock pain on her left side. Patient states that Jean night she fell on asphalt in the parking lot. She fell back on her buttocks andthen hit her shoulder and her head. What hurts the worst today is her buttock. It hurts when she sits or stands. She has not used any jnme-wuq-pcdhqvq medication for this. She is not on any blood thinners. She does ambulate with a cane. ROS Const Constitutional: Positive for other (ROS negative x 6 except what is described above) Exam Const General: cooperative, healthy appearing and no acute distress Nutritional Appearance: average body habitus Orientation: alert, awake and oriented x3 HENMT Head: normal to inspection and atraumatic Ears: hearing grossly normal bilaterally Nose: external nose normal Face and sinus: normal facial exam Mouth: oral mucosae normal Eyes General: appearance normal, both eyes and all related structures Resp Effort & Inspection: normal respiratory effort Auscultation: Bilateral: Clear to Auscultation Cardio Palpation: normal PMI Rate: regular rate Rhythm: regular rhythm Heart Sounds: S1 normal, S2 normal, no gallops, no murmurs and no rubs GI Inspection: normal to inspection Auscultation: normal bowel sounds Palpation: soft, no hepatosplenomegaly and nontender Neuro General: patient alert, patient awake, patient oriented x3 and CN's II-XI intactbilaterally Extrem Other: Tenderness to left gluteal area. No obvious bruising noted. Patient does ambulate with a cane. Coding Level of Care Code Off vis,est,level 3 Diagnoses Acute pain of left hip M25.552 Assessment and Plan Assessment and Plan (1) Acute pain of left hip: Status: Acute Plan: No obvious fractures noted. However I did explain to patient that this was preliminary and that I am awaiting radiologist read on this. In the meantime she was advised to continue to use her cane. Use ice or heat. She can also useAdvil or Tylenol to help with the pain. Will call patient back when x-ray is read. Orders: Orders HIP, UNI W/ Pelvis 2-3 Views Today W19.XXXA - Unspecified fall, initial encounter Clinical Quality Measures Falls Risk Screening/Assistive Devices Have you fallen in the past year?: Yes 03/10/25 1134 Preston JIMENEZ> Date _ Nerissa IJMENEZ Cosigner Signature: Date (if applicable) CC: ~ [facility]07-07-2025 Radiology Diagnostic study note [facility] Imaging Services [address] [place] [address] HIP, UNI W/ Pelvis 2-3 Views MR#: [id number] Acct: [id number] Name: GUNJAN CONNELL Rep #: [id number] : 1955 F 70 From: [place] Mendieta DO PCP: Dr. Patt Jones, DO Status: RE G CLI Study:HIP, UNI W/ Pelvis 2-3 Views Date of Ex am: 03/10/25 Exam# [id number] Ordering Dr: Nerissa Rahman PROCEDURE: HIP, UNI W/ PELVIS 2-3 VIEWS 03/10/2025 REASON FOR EXAM: FALL Patient fell 3 days ago. Left hip pain. TECHNIQUE: HIP, UNI W/ PELVIS 2-3 VIEWS COMPARISON: AP pelvic view was obtained as well as two views of the left hip. The study wascompared to the prior pelvic and hip study dated 11/04/2024 FINDINGS: Diffuse osteopenia of the bony pelvis is noted. There are no acute fractures ordislocations noted. The visualized portion of the left prosthetic hip device appears to be in satisfactory position without evidence of fracture or loosening. Please note however that the entire prosthetic device is not included on this study. There is no fracture or dislocation of the left hip. The left hip joint appearsto be well preserved. Degenerative disc disease and facet arthritis is again noted involving the lowerlumbar spine. Pubic symphysis is unremarkable. Soft tissues appear grossly unremarkable. RAD/HIP, UNI W/ Pelvis 2-3 Views IMPRESSION: Diffuse osteopenic bony pelvis and left hip. No acute fractures or dislocations. Reading Location: [id number] CC: Dr. Patt Jones DO; TONY Taylor ~ [employer] Operator: Signed [facility]06-19-2025 Radiology Diagnostic study note [facility] Imaging Services [address] [place], [place] [address] Abdomen/Pelvis without Cont MR#: [id number] Acct: [id number] Name: GUNJAN CONNELL Rep #: [id number] : 1955 F 69 From: Gissel Cordero MD PCP: Dr. Patt Jones DO Status: RE G CLI Study:Abdomen/Pelvis without Cont Date of Exa m: 02/19/25 Exam# [id number] Ordering Dr: Jd Jones DO PROCEDURE: ABDOMEN/PELVIS WITHOUT CONT 02/19/2025 REASON FOR EXAM: R FLANK PAIN TECHNIQUE: ABDOMEN/PELVIS WITHOUT CONT Noncontrast technique limits evaluation of the abdominal and pelvic viscera. Coronal and Sagittal reconstruction series were provided. One or more dose reduction techniques were used (e.g., Automated exposure control, adjustment of the mA and/or kV according to patient size, use of iterative reconstruction technique). ORAL CONTRAST TYPE: None. AMOUNT: mL DLP: 700.98. DLP: 16.13 COMPARISON: 03/22/2020. FINDINGS: Moderate osteopenia. Moderate diffuse spondylosis. Unremarkable metallic prosthesis of the right hip. Prior hysterectomy. Diffuse thickening of the bladder, possibly cystitis. Diffuse colonic diverticulosis. Mild thickening of the sigmoid colon, probably mild colitis/diverticulitis without perforation or abscess formation. Bilateral parapelvic renal cysts are noted with the largest measuring 3.5 cm. Prior cholecystectomy. Calcified splenic granuloma. Mild diffuse thickening of the stomach suggestive of gastritis. The visualized lung bases are unremarkable. Normal unenhanced liver. Normal extrahepatic biliary system. Normal unenhanced spleen. Normal pancreas. Normal bilateral adrenal glands. Normal size of the right kidney. There is no right renal mass. There are no right renal calculi. There is no right hydronephrosis. Normal visualized right ureter. Normal size of the left kidney. There is no left renal mass. There are no leftrenal calculi. There is no left hydronephrosis. Normal visualized left ureter. Normal small intestine. The appendix is visualized and appears normal. There is no demonstrated peritoneal fluid. Calcified atheromatous plaques of the abdominal aorta. Normal inferior vena cava. Normal retroperitoneum. There is no pelvic mass lesion or lymphadenopathy. There is no pelvic fluid. CT/Abdomen/Pelvis without Cont IMPRESSION: 1. Moderate osteopenia. 2. Moderate diffuse spondylosis. 3. Unremarkable metallic prosthesis of the right hip. 4. Prior hysterectomy. 5. Diffuse thickening of the bladder, possibly cystitis. 6. Diffuse colonic diverticulosis. 7. Mild thickening of the sigmoid colon, probably mild colitis/diverticulitis without perforation or abscess formation. 8. Bilateral parapelvic renal cysts are noted with the largest measuring 3.5 cm. 9. Prior cholecystectomy. 10. Calcified splenic granuloma. 11. Mild diffuse thickening of the stomach suggestive of gastritis. Reading Location: [place] [address] CC: Dr. Patt Jones DO ~ [employer] Operator: Signed [facility]05-15-2025 Radiology Diagnostic study note [facility] Imaging Services [address] [place] [id number] Abdomen Complete MR#: [id number] Acct: [id number] Name: GUNJAN CONNELL Rep #: [id number] : 1955 F 69 From: Joseph Price MD PCP: Dr. Patt Jones DO Status: RE G CLI Study:Abdomen Complete Date of Exam: Exam# [id number] Ordering Dr: Jd Jones DO PROCEDURE: ABDOMEN COMPLETE 01/16/2025 REASON FOR EXAM: LUQ PAIN TECHNIQUE: Complete abdominal ultrasound pierson-scale images with color doppler. PATIENT PREPARATION: Per protocol COMPARISON: None FINDINGS: Liver: Grossly normal size and echotexture. Gallbladder: Surgically absent. Common bile duct: Normal measuring 6.3 mm . Pancreas: Visualized portions are unremarkable. The distal body and tail are obscured by bowel gas. Kidneys: The right kidney measures 11.4 cm x 4.5 cm x 4.4 cm there is a 1 cm x 1.2 cm x 1.1 cm cystin the lower pole.. The left kidney measures 9.9 cm x 5 cm x 4.7 cm minimal left hydronephrosis.. Spleen: The spleen measures 9.7 cm x 3.6 cm x 3.8 cm. . Aorta: Visualized abdominal aorta is of normal size. IVC: Visualized inferior vena cava is unremarkable. Peritoneal Findings: No ascites identified. US/Abdomen Complete IMPRESSION: Status post cholecystectomy. Small right renal cyst. Minimal left hydronephrosis. Reading Location: [facility] CC: Dr. Patt Jones DO ~ [employer] Operator: Signed [facility]05-11-2025 Discharge summary [facility] Medical Records Department [address] [place] [address] Emergency Department Summary 01/12/25 MR#: [id number] Acct: [id number] Name: GUNJAN CONNELL Rep #:[id number] : 1955 69 From: Ramu Romero MD PCP: Dr. Patt Jones DO Status:RE G ER Location: ED HPI HPI - GI History of Present Illness Chief Complaint: GI Bleed Informant: patient Narrative Narrative: 69-year-old female presents because she had a couple of drops of blood in her underwear today and then she saw some blood when she wiped. She thinks it is rectal blood. She denies any rectal/perianalpain, but states she has been having some upper abdominal pain all the way across for the past week. There isno association with eating, does not get worse or better, and she denies any nausea or vomiting. It is worse when she moves, and she states that when she was getting out of her camper yesterday she bent forward at 1 point and had a sharp pain in this area. She denies any radiation into herback or chest. No fevers or chills. Her last bowel movement was yesterday and was normal and formedwithout melena or blood. No problems urinating. She states last year she was diagnosed with a couple of peptic ulcers that endedup being cauterized. She states she has been out of her tramadol that she uses for her arthritis recently, and as a result for the last few days she has been taking ibuprofen every day but not longer than that. 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 Tonsillectomy planned Hx of cataract Home Medications ?Medication ?Instructions ?Recorded ?Last Taken ?Type folic acid 1 mg tablet 1 mg PO DAILYCM Supplement # 0 tabs 08/05/24 01/12/25 Rx acetaminophen 500 mg tablet 1,000 mg (2 x 500 mg) PO Q 8 #0 tabs 08/19/24 01/11/25 Rx doxepin 25 mg capsule 25 mg PO QHS 30 days #30 cap s 08/19/24 Unknown Rx methotrexate sodium 2.5 mg tablet 15 mg (6 x 2.5 mg) P O We@1000 #0 08/19/24 01/08/25 Rx tabs MEDICAL MARIJUANA 01/12/25 Unknown History (INFORMATIONAL USE ONLY-PT USES MEDICAL MARIJUANA cholecalciferol (vitamin D3) 125 250 mcg PO DAILY 01/0201/12/25 History mcg (5,000 unit) capsule ibuprofen 200 mg tablet (Advil) 400 mg PO Q6H PRN pain 01/12/25 01/11/25 History tramadol 50 mg tablet 50 mg PO 4X/DAY PRN PRN pain 4 01/12/25 Unknown Rx days #15 tabs Allergy/AdvReac Type Severity Reaction Status Date / Time latex AdvReac Intermediate Rash Verified 01/12/25 14:05 Surgical History History of revision of total replacement of right hip joint History of hysterectomy History of carpal tunnel release of both wrists Hx of removal of cyst Hx of arthroscopy of right knee Hx of cholecystectomy Social History household members: spouse Smoking Status: Never smoker alcohol intake: never substance use type: does not use ROS ROS ED Constitutional Constitutional ED: Denies chills or fever(s) Eyes Eyes: Denies change in vision or diplopia ENT ENT ED: Denies rhinorrhea or sore throat Cardiovascular Cardiovascular: Denies chest pain, edema, lightheadedness, palpitations or syncope Respiratory/Chest Respiratory/Chest: Denies cough or dyspnea Gastrointestinal Gastrointestinal: Reports abdominal pain; Denies diarrhea, hematemesis, hematochezia, melena, nausea or vomiting Genitourinary Genitourinary ED: Denies dysuria or hematuria Musculoskeletal Musculoskeletal: Denies back pain or neck pain Integumentary Denies abscess or rash Neurologic Neurologic: Denies headache(s), paresthesias or weakness Psychiatric Psychiatric: Denies suicidal thoughts EXAM Physical Exam Const Vital Signs: 01/12/25 14:05 01/12/25 14:26 01/12/25 14:56 Temperature 97.3 F L Temperature Source Temporal Pulse Rate 78 76 Pulse Rate [Lying] 80 Pulse Rate [Sitting (for 1 minute prior to obtaining)] 74 Pulse Rate [Standing (for 1 minute prior to obtaining)] 83 Respiratory Rate 16 18 Blood Pressure 171/70 H Blood Pressure [Lying] 161/75 H Blood Pressure [Sitting (for 1 minute prior to obtaining)] 162/86 H Blood Pressure [Standing (for 1 minute prior to obtaining)] 206/91 H Blood Pressure Mean 103 Blood Pressure Mean [Lying] 103 Blood Pressure Mean [Sitting (for 1 minute prior to obtaining)] 111 Blood Pressure Mean [Standing (for 1 minute prior to obtaining)] 129 Pulse Ox 99 98 Oxygen Delivery Method Room Air Room Air 01/12/25 16:04 Temperature Temperature Source Pulse Rate 73 Pulse Rate [Lying] Pulse Rate [Sitting (for 1 minute prior to obtaining)] Pulse Rate [Standing (for 1 minute prior to obtaining)] Respiratory Rate 17 Blood Pressure 177/86 H Blood Pressure [Lying] Blood Pressure [Sitting (for 1 minute prior to obtaining)] Blood Pressure [Standing (for 1 minute prior to obtaining)] Blood Pressure Mean 116 Blood Pressure Mean [Lying] Blood Pressure Mean [Sitting (for 1 minute prior to obtaining)] Blood Pressure Mean [Standing (for 1 minute prior to obtaining)] Pulse Ox 97 Oxygen Delivery Method Positive well nourished and well developed General Appearance ED: well developed and NAD HEENT Reports moist mucous membranes normocephalic and atraumatic Eyes PERRL and EOMs intact bilaterally Neck full ROM and supple Resp normal respiratory effort and clear to auscultation bilaterally Cardio regular rate, regular rhythm and no murmurs Rate: Negative for tachycardic GI non-distended GI Narrative: Mild tenderness throughout upper abdomen nonfocal negative Denise. Lower abdomen benign nontender. No guarding or rebound. Normal bowel sounds present. The tender area in her upper abdomen progressesonto her lower rib cage which is also tender, bilaterally. No crepitance or subcutaneous emphysema. Auscultation: normoactive bowel sounds Palpation: soft Back/Spine no CVA tenderness General Back: other FROM Extremity normal to inspection General Extremety ED: Negative for edema, pulses abnormal or tenderness General Extremity: Negative for edema or pulses abnormal Neuro oriented x3, CN's II-XII intact bilaterally and no sensory deficits noted Sensorium / Orientation: awake and alert Motor Exam: strength 5/5 throughout Skin no rashes or lesions noted and no wounds MDM MDM MDM Narrative Medical decision making narrative: Obtain labs, her hemoglobin is 10.7 which is down about a gram but close compared with the week ago, her BUN is a little elevated but not enough to suggest an upper GI source. The rest of her labs are unremarkable. I had nurses do orthostatics they were negative and she is feeling well except for thepain in her upper abdomen it has been there for a week and seems very musculoskeletal. Additionally she states she ate a hot dog today and it did notaffect her pain or make it worse at all. Therefore this is less likely biliary in nature especially with her liver enzymes unremarkable and no hyperbilirubinemia. She states she has been out of her tramadol that she uses for chronic pain and arthritis. I did a rectal exam on her, there is no external hemorrhoids or tenderness/abscess, and on SHERLYN, there is a trace amount of light yellow-brown stool with no melena or blood/bleeding. Given all of thisI am comfortable discharging her home with close outpatient follow-up. We discussed potentially treating internal hemorrhoids empirically but she declinesand does not want to do an injectable cream. She would rather watch and see howthings go. She not anticoagulated. I do not think this is pepticulcer disease. I am giving her a refill of her tramadol and a dose here along with some Tylenol before discharge and are comfortable with that plan of following up. Lab Data Attestation: I reviewed the patient's lab results. Labs: Laboratory Results - last 24 hr 01/12/25 14:45 WBC 7.5 RBC 3.60 L Hgb 10.7 L Hct 32.7 L MCV 90.8 MCH 29.7 MCHC 32.7 RDW Std Deviation 59.3 H RDW Coeff of Oly 17.7 H Plt Count 240 MPV 8.9 Immature Gran % (Auto) 0.400 Neut % (Auto) 69.7 Lymph % (Auto) 20.3 Banner % (Auto) 8.6 Eos % (Auto) 0.5 Baso % (Auto) 0.5 Absolute Neuts (auto) 5.3 Absolute Lymphs (auto) 1.53 Nucleated RBC % 0 Sodium 142 Potassium 3.9 Chloride 109 H Carbon Dioxide 23.0 Anion Gap 11 BUN 25 H Creatinine 0.95 Estim Creat Clear Calc 48.14 L Est GFR (MDRD) Non-Af 64 BUN/Creatinine Ratio 26.2 H Glucose 111 H Calcium 9.6 Total Bilirubin 0.57 AST 19 ALT 14 Alkaline Phosphatase 116 H Total Protein 6.8 Albumin 4.0 Globulin 2.8 Albumin/Globulin Ratio 1.4 Lipase 32 Discharge Plan Triage Chief Complaint: GI Bleed ED Provider: Ramu Romero Dx/Rx/DC Orders Clinical Impression: Rectal bleeding, Strain of abdominal wall Instructions: Rectal Bleeding Tx, ED Muscle Strain, Abdomen Prescriptions: Continued folic acid 1 mg Tablet 1 mg PO DAILYCM Qty: 0 0RF doxepin 25 mg Capsule 25 mg PO QHS 30 Days Qty: 30 0RF acetaminophen 500 mg Tablet 1,000 mg PO Q8 Qty: 0 0RF methotrexate sodium 2.5 mg Tablet 15 mg PO We@1000 Qty: 0 0RF ibuprofen [Advil] 200 mg tablet 400 mg PO Q6H PRN (Reason: pain) cholecalciferol (vitamin D3) 125 mcg (5,000 unit) capsule 250 mcg PO DAILY (DME) MEDICAL MARIJUANA (INFORMATIONAL USE ONLY-PT USES MEDICAL MARIJUANA Edible See Rx Instructions .ROUTE Rx Instructions: PT HAD A GUMMY LAST NIGHT tramadol 50 mg tablet 50 mg PO 4X/DAY PRN PRN (Reason: pain) 4 Days Qty: 15 0RF Primary Care Provider: Patt Jones Referrals: Patt Jones DO [Primary Care Provider] - As soon as possible Print Language: Scottish Disposition Disposition: Home, Self Care What to do if you have Problems For any increased pain, shortness of breath, bleeding, nausea or vomiting, chestpain, or any unexpected problems, contact your Primary Care Provider. Call [facility] ([phone]) or report tothe closest Emergency Room. Call 911 if necessary. 01/12/25 1613 Cosigner Signature (if applicable): CC: Dr. Patt Jones, ~ Signed [facility]05-11-2025 Discharge summary Author Ramu Romero [facility] Note Date/Time January 12, 2025 4:13p m [facility] Medical Records Department [address] [place] [address] Emergency Department Summary 01/12/25 MR#: [id number] Acct: [id number] Name: GUNJAN CONNELL Rep #:[id number] : 1955 69 From: Ramu Romero MD PCP: Dr. Patt Jones DO Status:RE G ER Location: ED HPI HPI - GI History of Present Illness Chief Complaint: GI Bleed Informant: patient Narrative Narrative: 69-year-old female presents because she had a couple of drops of blood in her underwear today and then she saw some blood when she wiped. She thinks it is rectal blood. She denies any rectal/perianal pain, but states she has been having some upper abdominal pain all the way across for the past week. There isno association with eating, does not get worse or better, and she denies any nausea or vomiting. It is worse when she moves, and she states that when she was getting out of her camper yesterday she bent forward at 1 point and had a sharp pain in this area. She denies any radiation into her back or chest. No fevers or chills. Her last bowel movement was yesterday and was normal and formed without melena or blood. No problems urinating. She states last year she was diagnosed with a couple of peptic ulcers that endedup being cauterized. She states she has been out of her tramadol that she uses for her arthritis recently, and as a result for the last few days she has been taking ibuprofen every day but not longer than that. 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 Tonsillectomy planned Hx of cataract Home Medications ?Medication ?Instructions ?Recorded ?Last Taken ?Type folic acid 1 mg tablet 1 mg PO DAILYCM Supplement # 0 tabs 08/05/24 01/12/25 Rx acetaminophen 500 mg tablet 1,000 mg (2 x 500 mg) PO Q 8 #0 tabs 08/19/24 01/11/25 Rx doxepin 25 mg capsule 25 mg PO QHS 30 days #30 cap s 08/19/24 Unknown Rx methotrexate sodium 2.5 mg tablet 15 mg (6 x 2.5 mg) P O We@1000 #0 08/19/24 01/08/25 Rx tabs MEDICAL MARIJUANA 01/12/25 Unknown History (INFORMATIONAL USE ONLY-PT USES MEDICAL MARIJUANA cholecalciferol (vitamin D3) 125 250 mcg PO DAILY 01/0201/12/25 History mcg (5,000 unit) capsule ibuprofen 200 mg tablet (Advil) 400 mg PO Q6H PRN pain 01/12/25 01/11/25 History tramadol 50 mg tablet 50 mg PO 4X/DAY PRN PRN pain 4 01/12/25 Unknown Rx days #15 tabs Allergy/AdvReac Type Severity Reaction Status Date / Time latex AdvReac Intermediate Rash Verified 01/12/25 14:05 Surgical History History of revision of total replacement of right hip joint History of hysterectomy History of carpal tunnel release of both wrists Hx of removal of cyst Hx of arthroscopy of right knee Hx of cholecystectomy Social History household members: spouse Smoking Status: Never smoker alcohol intake: never substance use type: does not use ROS ROS ED Constitutional Constitutional ED: Denies chills or fever(s) Eyes Eyes: Denies change in vision or diplopia ENT ENT ED: Denies rhinorrhea or sore throat Cardiovascular Cardiovascular: Denies chest pain, edema, lightheadedness, palpitations or syncope Respiratory/Chest Respiratory/Chest: Denies cough or dyspnea Gastrointestinal Gastrointestinal: Reports abdominal pain; Denies diarrhea, hematemesis, hematochezia, melena, nausea or vomiting Genitourinary Genitourinary ED: Denies dysuria or hematuria Musculoskeletal Musculoskeletal: Denies back pain or neck pain Integumentary Denies abscess or rash Neurologic Neurologic: Denies headache(s), paresthesias or weakness Psychiatric Psychiatric: Denies suicidal thoughts EXAM Physical Exam Const Vital Signs: 01/12/25 14:05 01/12/25 14:26 01/12/25 14:56 Temperature 97.3 F L Temperature Source Temporal Pulse Rate 78 76 Pulse Rate [Lying] 80 Pulse Rate [Sitting (for 1 minute prior to obtaining)] 74 Pulse Rate [Standing (for 1 minute prior to obtaining)] 83 Respiratory Rate 16 18 Blood Pressure 171/70 H Blood Pressure [Lying] 161/75 H Blood Pressure [Sitting (for 1 minute prior to obtaining)] 162/86 H Blood Pressure [Standing (for 1 minute prior to obtaining)] 206/91 H Blood Pressure Mean 103 Blood Pressure Mean [Lying] 103 Blood Pressure Mean [Sitting (for 1 minute prior to obtaining)] 111 Blood Pressure Mean [Standing (for 1 minute prior to obtaining)] 129 Pulse Ox 99 98 Oxygen Delivery Method Room Air Room Air 01/12/25 16:04 Temperature Temperature Source Pulse Rate 73 Pulse Rate [Lying] Pulse Rate [Sitting (for 1 minute prior to obtaining)] Pulse Rate [Standing (for 1 minute prior to obtaining)] Respiratory Rate 17 Blood Pressure 177/86 H Blood Pressure [Lying] Blood Pressure [Sitting (for 1 minute prior to obtaining)] Blood Pressure [Standing (for 1 minute prior to obtaining)] Blood Pressure Mean 116 Blood Pressure Mean [Lying] Blood Pressure Mean [Sitting (for 1 minute prior to obtaining)] Blood Pressure Mean [Standing (for 1 minute prior to obtaining)] Pulse Ox 97 Oxygen Delivery Method Positive well nourished and well developed General Appearance ED: well developed and NAD HEENT Reports moist mucous membranes normocephalic and atraumatic Eyes PERRL and EOMs intact bilaterally Neck full ROM and supple Resp normal respiratory effort and clear to auscultation bilaterally Cardio regular rate, regular rhythm and no murmurs Rate: Negative for tachycardic GI non-distended GI Narrative: Mild tenderness throughout upper abdomen nonfocal negative Denise. Lower abdomen benign nontender. No guarding or rebound. Normal bowel sounds present. The tender area in her upper abdomen progresses onto her lower rib cage which is also tender, bilaterally. No crepitance or subcutaneous emphysema. Auscultation: normoactive bowel sounds Palpation: soft Back/Spine no CVA tenderness General Back: other FROM Extremity normal to inspection General Extremety ED: Negative for edema, pulses abnormal or tenderness General Extremity: Negative for edema or pulses abnormal Neuro oriented x3, CN's II-XII intact bilaterally and no sensory deficits noted Sensorium / Orientation: awake and alert Motor Exam: strength 5/5 throughout Skin no rashes or lesions noted and no wounds MDM MDM MDM Narrative Medical decision making narrative: Obtain labs, her hemoglobin is 10.7 which is down about a gram but close compared with the week ago, her BUN is a little elevated but not enough to suggest an upper GI source. The rest of her labs are unremarkable. I had nurses do orthostatics they were negative and she is feeling well except for thepain in her upper abdomen it has been there for a week and seems very musculoskeletal. Additionally she states she ate a hot dog today and it did notaffect her pain or make it worse at all. Therefore this is less likely biliary in nature especially with her liver enzymes unremarkable and no hyperbilirubinemia. She states she has been out of her tramadol that she uses for chronic pain and arthritis. I did a rectal exam on her, there is no external hemorrhoids or tenderness/abscess, and on SHERLYN, there is a trace amount of light yellow-brown stool with no melena or blood/bleeding. Given all of thisI am comfortable discharging her home with close outpatient follow-up. We discussed potentially treating internal hemorrhoids empirically but she declinesand does not want to do an injectable cream. She would rather watch and see howthings go. She not anticoagulated. I do not think this is peptic ulcer disease. I am giving her a refill of her tramadol and a dose here along with some Tylenol before discharge and are comfortable with that plan of following up. Lab Data Attestation: I reviewed the patient's lab results. Labs: Laboratory Results - last 24 hr 01/12/25 14:45 WBC 7.5 RBC 3.60 L Hgb 10.7 L Hct 32.7 L MCV 90.8 MCH 29.7 MCHC 32.7 RDW Std Deviation 59.3 H RDW Coeff of Oly 17.7 H Plt Count 240 MPV 8.9 Immature Gran % (Auto) 0.400 Neut % (Auto) 69.7 Lymph % (Auto) 20.3 Banner % (Auto) 8.6 Eos % (Auto) 0.5 Baso % (Auto) 0.5 Absolute Neuts (auto) 5.3 Absolute Lymphs (auto) 1.53 Nucleated RBC % 0 Sodium 142 Potassium 3.9 Chloride 109 H Carbon Dioxide 23.0 Anion Gap 11 BUN 25 H Creatinine 0.95 Estim Creat Clear Calc 48.14 L Est GFR (MDRD) Non-Af 64 BUN/Creatinine Ratio 26.2 H Glucose 111 H Calcium 9.6 Total Bilirubin 0.57 AST 19 ALT 14 Alkaline Phosphatase 116 H Total Protein 6.8 Albumin 4.0 Globulin 2.8 Albumin/Globulin Ratio 1.4 Lipase 32 Discharge Plan Triage Chief Complaint: GI Bleed ED Provider: Ramu Romero Dx/Rx/DC Orders Clinical Impression: Rectal bleeding, Strain of abdominal wall Instructions: Rectal Bleeding Tx, ED Muscle Strain, Abdomen Prescriptions: Continued folic acid 1 mg Tablet 1 mg PO DAILYCM Qty: 0 0RF doxepin 25 mg Capsule 25 mg PO QHS 30 Days Qty: 30 0RF acetaminophen 500 mg Tablet 1,000 mg PO Q8 Qty: 0 0RF methotrexate sodium 2.5 mg Tablet 15 mg PO We@1000 Qty: 0 0RF ibuprofen [Advil] 200 mg tablet 400 mg PO Q6H PRN (Reason: pain) cholecalciferol (vitamin D3) 125 mcg (5,000 unit) capsule 250 mcg PO DAILY (DME) MEDICAL MARIJUANA (INFORMATIONAL USE ONLY-PT USES MEDICAL MARIJUANA Edible See Rx Instructions .ROUTE Rx Instructions: PT HAD A GUMMY LAST NIGHT tramadol 50 mg tablet 50 mg PO 4X/DAY PRN PRN (Reason: pain) 4 Days Qty: 15 0RF Primary Care Provider: Patt Jones Referrals: Patt Jones, DO [Primary Care Provider] - As soon as possible Print Language: Scottish Disposition Disposition: Home, Self Care What to do if you have Problems For any increased pain, shortness of breath, bleeding, nausea or vomiting, chestpain, or any unexpected problems, contact your Primary Care Provider. Call [facility] ([phone]) or report to the closest Emergency Room. Call 911 if necessary. 01/12/25 1613 <Electronically signed by Ramu Romero MD> Cosigner Signature (if applicable): CC: Dr. Patt Jones, DO ~ Signed [facility] Work Phone: 1(768) 431-330803-03-2025 Evaluation note* Diagnosis Onset Date Resolution Status Admit Date Orthopedic aftercare acute 2024 3:18pm Periprosthetic fracture arou nd internal prosthetic right hip joint acute November 04, 2024 3:18pm Rheumatoid arthritis acute 2024 3:18pm [facility] Work Phone: 1(332) 433-278112-16-2024 [facility]12-02-2024 [facility]12-02-[address]24 [facility] 07-26-2024 Evaluation note* Diagnosis Onset Date Resolution Status Admit Date Current use of anticoagulant therapy acute July 26 8:42am Elevated blood-pressure reading without diagnosis of hypertension acute July 26 8:42am Neuropathy acute July 26, 2024 8:42am Other acute postprocedural pain acute July 26 8:42am Periprosthetic fracture arou nd internal prosthetic right hip joint acute July 26 8:42am Periprosthetic fracture arou nd internal prosthetic right hip joint, initial acute July 26 8:42am Acute hypokalemia resolved Solo long 2023 8:42am Postoperative anemia inactive Christiane leslie 2023 8:42am Debility acute August 05, 2024 6:39pm Essential (primary) hypertension acute August 05 6:39pm Gastric ulcer acute August 6:39pm Iron deficiency anemia acute 2023 6:39pm Periprosthetic fracture arou nd internal prosthetic right hip joint acute August 05 6:39pm Rheumatoid arthritis acute Dece mber 2023 6:39pm Vitamin D deficiency acute Dece mber 2023 6:39pm Encephalopathy resolved August 052023 6:39pm Hypokalemia resolved August 05, 2024 6:39pm Orthopedic aftercare acute Rajat michael 2024 10:48am Orthopedic aftercare acute Urban h 2024 3:18pm Periprosthetic fracture arou nd internal prosthetic right hip joint acute November 04, 2024 3:18pm Rheumatoid arthritis acute Urban h 2024 3:18pm [facility] Work Phone: 1(177) 451-952911-22-2024 [facility]11-12-[address]24 [facility]09-30-2023 Discharge summary Author Ramu Romero [facility] June 03, 2023 6:16pm Note Date/Time June 03, 2023 5:00pm [facility] Medical Records Department [address] [place] [address] Emergency Department Summary 06/03/23 MR#: [id number] Acct: [id number] Name: GUNJAN CONNELL Rep #:[id number] : 1955 68 From: Ramu Romero MD PCP: Dr. Patt Jones, DO Status:RE G ER Location: ED HPI History of Present Illness Chief Complaint: Lower Extremity Injury Informant: patient Narrative Narrative: 2-3 days gradual onset pain, swelling, redness. Has not left ankle without injury. Hurts to walk on. Very sensitive to touch. never had this before. Hasa history of arthritis in knees especially, but never had it in her ankles or big toes. No history of gout or pseudogout that she knows of. Denies any fevers or chills. Denies any foreign bodies, injuries, or any other obvious reason for this pain. She states it came on gradually, mild at first but has gotten more severe. Currently wearing an orthotic boot right foot/ankle because of chipping a bone in her foot. She has been be able to bear weight on that lately, thinks maybe she is favoring it. [facility] Medical History Cochlear implant in place Hx of cataract Tonsillectomy planned Home Medications Cholecalciferol (Vitamin D3) [Vitamin D3] 2 tab PO DAILY 02/12/20 [History Last Taken Unknown] methocarbamol 500 mg tablet 500 mg PO TID 01/19/22 [History Last Taken Unknown] tramadol 50 mg tablet 50 mg PO Q6H PRN pain 01/19/22 [History Last Taken 04/18/23] hydrocodone-acetaminophen 5-325mg 5mg-325mg 1 tab PO Q4H PRN PRN Pain 4 days #14TABLETS 11/21/22 [Rx Last Taken Unknown] folic acid 1 mg tablet 1 mg PO DAILY 04/18/23 [History Last Taken 04/18/23] gabapentin 100 mg capsule 100 mg PO .hs 04/18/23 [History Last Taken Unknown] oxycodone 5 mg tablet 5 mg PO Q8H PRN pain 3 days #12 tabs 04/18/23 [Rx Last Taken Unknown] cephalexin 500 mg capsule 500 mg PO Q6 #40 CAPSULES 06/03/23 [Rx Last Taken Unknown] prednisone 20 mg tablet 40 mg (2 x 20 mg) PO DAILY 5 days #10 tabs 06/03/23 [Rx Last Taken Unknown] Allergy/AdvReac Type Severity Reaction Status Date / Time No Known Allergies Allergy Verified 06/03/23 15:41 Surgical History History of carpal tunnel release of both wrists Hx of arthroscopy of right knee Hx of cholecystectomy Hx of removal of cyst Social History Smoking Status: Never smoker ROS ROS ED Constitutional Constitutional ED: Denies chills or fever(s) Musculoskeletal Musculoskeletal: Reports extremity pain; Denies neck pain Integumentary Reports as per HPI; Denies Abrasions, rash or wounds Neurologic Neurologic: Denies paresthesias or weakness EXAM Physical Exam Const Vital Signs: 06/03/23 15:41 Temperature 97.6 F L Temperature Source Temporal Pulse Rate 66 Respiratory Rate 14 Blood Pressure 134/97 H Blood Pressure Mean 109 Pulse Ox 99 Oxygen Delivery Method Room Air Positive well nourished, well developed and obese General Appearance ED: well developed and NAD Nutritional Appearance: obese Neck full ROM and supple Back/Spine normal ROM and normal to inspection Extremity Extremity Narrative: Painful short arc range of motion active or passive left ankle. Erythematous, warm, mildly diffusely swollen more prominent anterior to the lateral malleolus. Very tender to palpation here. No lymphangitis no abscess. No inguinal lymphadenopathy. Does not extend into the foot at all. Right foot/ankle in an orthotic boot device. Neuro oriented x3, no focal motor deficits and no sensory deficits noted Sensorium / Orientation: alert Psych mental status grossly normal and thought process normal Skin no wounds Rashes: no rashes MDM MDM MDM Narrative Medical decision making narrative: Three-view x-ray series of the left ankle were obtained and on my interpretationshows soft tissue swelling but no acute bony abnormality. My concern is that this is an atraumatic joint inflammation versus infection, this could be gout orpseudogout, or it could be a septic arthritis. Given that she has never had gout or pseudogout before, arthrocentesis as well as blood work is indicated in order to differentiate; she is amenable to that and understands. Blood work obtained, but we were not able to obtain synovial fluid see the procedure note. CRP elevated, uric acid in the normal range, no significant leukocytosis, ESR is normal. This is not diagnostic, it does not rule in or rule out septic arthritis or crystal induced arthritis or noncrystal induced inflammatory arthritis. We will place the patient on antibiotics and prednisoneand advised close outpatient follow-up with orthopedics or return to the ER if symptoms worsen. She is comfortable with that plan. She uses a walker to get around, we will place her in an Piotr wrap. Discussed with orthopedics, agreeable with that plan. Lab Data Attestation: I reviewed the patient's lab results. Labs: Laboratory Results - last 24 hr 06/03/23 17:10 WBC 9.0 RBC 4.53 Hgb 13.7 Hct 41.1 MCV 90.7 MCH 30.2 MCHC 33.3 RDW Std Deviation 42.4 RDW Coeff of Oly 12.8 Plt Count 223 MPV 9.2 Immature Gran % (Auto) 0.200 Neut % (Auto) 74.8 H Lymph % (Auto) 12.5 L Banner % (Auto) 12.1 H Eos % (Auto) 0.2 Baso % (Auto) 0.2 Absolute Neuts (auto) 6.8 Absolute Lymphs (auto) 1.13 Nucleated RBC % 0 ESR 15 Sodium 136 Potassium 3.8 Chloride 105 Carbon Dioxide 29.0 Anion Gap 2 L BUN 13 Creatinine 0.93 Estim Creat Clear Calc 74.40 Est GFR (MDRD) Af Amer 77 Est GFR (MDRD) Non-Af 63 BUN/Creatinine Ratio 14.0 Glucose 113 H Uric Acid 3.7 Calcium 8.7 C-React Prot Ext Range 17.00 H Radiography Diagnostic Testing: Clinical Impression(s) from Imaging Studies Ankle X-Ray 06/03/23 15:50 IMPRESSION: No acute fracture or dislocation. Lateral soft tissue swelling. Electronically Signed: Johan Tejada MD at 16:36 EDT , Management Discussion w/another healthcare provider: Plastic Surgery Manager (Valentino Blankenship) Procedures Other Procedures Procedure(s): Left ankle arthrocentesis: Locally anesthetized with 1 cc 1% lidocaine with epinephrine, anterior medial aspect just medial to the tibialis anterior. Prepped and draped in sterile fashion initially with isopropanol thenwith chlorhexidine, attempted to enter the joint with an 18-gauge needle, despite multiple attempts unable to enter the joint space, there is some minor bleeding that was well controlled, patient was in significant discomfort with the redirection to the needle so we aborted and were not able to obtain any joint fluid. Discharge Plan Triage Chief Complaint: Lower Extremity Injury ED Provider: Ramu Romero Dx/Rx/DC Orders Clinical Impression: Arthritis of ankle, left Instructions: What Is Arthritis?, Eating to Prevent Gout, ED Gout Prescriptions: New cephalexin [cephalexin] 500 mg capsule 500 mg PO Q6 Qty: 40 0RF Continued methocarbamol 500 mg tablet 500 mg PO TID tramadol 50 mg tablet 50 mg PO Q6H PRN (Reason: pain) Cholecalciferol (Vitamin D3) [Vitamin D3] 5,000 UNIT capsule 2 tab PO DAILY hydrocodone-acetaminophen 5-325 mg tablet 1 tab PO Q4H PRN PRN (Reason: Pain) 4 Days Qty: 14 0RF folic acid 1 mg tablet 1 mg PO DAILY Patient Comments: TAKE 2 TABLETS BY MOUTH DAILY gabapentin 100 mg capsule 100 mg PO .hs Patient Comments: TAKE 3 CAPSULES BY MOUTH AT NIGHT oxycodone 5 mg tablet 5 mg PO Q8H PRN (Reason: pain) 3 Days Qty: 12 0RF prednisone 20 mg tablet 40 mg PO DAILY 5 Days Qty: 10 0RF Discontinued prednisone 20 MG tablet 60 mg PO DAILY Qty: 9 0RF Primary Care Provider: Patt Jones Referrals: Patt Jones DO [Primary Care Provider] - Jagdish Jim DO [Med Staff - Active Staff] - 3-5 Days if not improving Disposition Disposition: Home, Self Care What to do if you have Problems For any increased pain, shortness of breath, bleeding, nausea or vomiting, chestpain, or any unexpected problems, contact your Primary Care Provider. Call [facility] ([phone]) or report to the closest Emergency Room. Call 911 if necessary. 06/03/231815 <Electronically signed by Ramu Romero MD> Cosigner Signature (if applicable): CC: Dr. Patt Jones DO ~ Signed [facility] Work Phone: 1(214) 833-762204-09-2021 Instructions* Name Dates Details Patient Instructions Start:11-Dec-2020 Instruction Type:Provider Instructions for Treatment How to Access Health Informa tion Online using Patient Portal and 3rd Libertarian Apps Start:11-Dec-2020 Instruction Type:Patient Education Patient Instructions Start:04-Dec-2020 Instruction Type:Provider Instructions for Treatment How to Access Health Informa tion Online using Patient Portal and 3rd Libertarian Apps Start:04-Dec-2020 Instruction Type:Patient Education How to Access Health Informa tion Online using Patient Portal and 3rd Libertarian Apps Start:20-Nov-2020 Instruction Type:Patient Education Patient Instructions Start:20-Nov-2020 Instruction Type:Provider Instructions for Treatment How to access health informa tion online Start:01-May-2020 Instruction Type:Patient Education How to access health informa tion online - Detail Start:01-May-2020 Instruction Type:Patient Education Patient Instructions Start:01-May-2020 Instruction Type:Provider Instructions for Treatment How to access health informa tion online Start:12-Feb-2020 Instruction Type:Patient Education How to access health informa tion online - Detail Start:12-Feb-2020 Instruction Type:Patient Education Patient Instructions Start:12-Feb-2020 Instruction Type:Provider Instructions for Treatment How to access health informa tion online Start:06-Jul-2018 Instruction Type:Patient Education How to access health informa tion online - Detail Start:06-Jul-2018 Instruction Type:Patient Education Patient Instructions Start:06-Jul-2018 Instruction Type:Provider Instructions for Treatment obesity counseling Start:16-May-2018 Instruction Type:Provider Instructions for Treatment How to access health informa tion online Indication:Non-smoker Start:16-May-2018 Instruction Type:Patient Education Patient Instructions Indication:Non-smoker Start:16-May-2018 Instruction Type:Provider Instructions for Treatment How to access health informa tion online Indication:Non-smoker Start:27-Apr-2018 Instruction Type:Patient Education How to access health informa tion online - Detail Indication:Non-smoker Start:27-Apr-2018 Instruction Type:Patient Education How to access health informa tion online Start:21-Jan-2016 Instruction Type:Patient Education How to access health informa tion online - Detail Start:21-Jan-2016 Instruction Type:Patient Education Patient Instructions Start:21-Jan-2016 Instruction Type:Provider Instructions for Treatment How to access health informa tion online Start:02-Nov-2015 Instruction Type:Patient Education How to access health informa tion online - Detail Start:02-Nov-2015 Instruction Type:Patient Education Patient Instructions Start:02-Nov-2015 Instruction Type:Provider Instructions for Treatment Patient Instructions Indication:Muscle strain Start:03-May-2013 Instruction Type:Provider Instructions for Treatment Patient Instructions Indication:Sciatica Start:17-Jan-2013 Instruction Type:Provider Instructions for Treatment Patient Instructions Indication:Cough Start:19-Dec-2012 Instruction Type:Provider Instructions for Treatment Patient Instructions Start:19-Dec-2012 Instruction Type:Provider Instructions for Treatment Patient Instructions Start:15-Jun-2012 Instruction Type:Provider Instructions for Treatment [facility] Work Phone: discharge summary Author Dr. Valencia [facility] November 21, 2022 3:54am Note Date/Time November 21, 2022 3:4 5am [facility] Medical Records Department [address] [place] [address] Emergency Department Summary 11/21/22 MR#: [id number] Acct: [id number] Name: GUNJAN CONNELL Rep #:[id number] : 1955 67 From: Ashwin Valencia MD PCP: Dr. Patt Jones, DO Status:RE G ER Location: ED HPI History of Present Illness HPI Narrative: Atraumatic right ankle pain. Chief Complaint: Lower Extremity Injury Informant: patient Occured/Mechanism Mechanism/Context: No injury and No blunt trauma Onset/Context/Timing Onset: Today and Yesterday Context: Gradual Onset Timing: Continuous Quality of Pain: Dull Maximum Severity: Mild Associated Symptoms Associated Symptoms: Negative for Parasthesia, Weakness or Loss of Funtion Narrative Narrative: 67-year-old female history of prior right total knee replacement. History of arthritis. States around 5:00 last night she developed right ankle pain. She denies any fall or trauma. No fever or chills. No redness. No history of gout. She does have a history of osteoarthritis. Prior similar symptoms: Yes Recent Illness/Hospitalization: No PFSH PFSH Medical History Cochlear implant in place Hx of cataract Tonsillectomy planned Home Medications Cholecalciferol (Vitamin D3) [Vitamin D3] 2 tab PO DAILY 02/12/20 [History Last Taken Unknown] prednisone 20 mg tablet 60 mg PO DAILY #9 TABLETS 11/19/20 [Rx Last Taken Unknown] methocarbamol 500 mg tablet 500 mg PO TID 01/19/22 [History Last Taken Unknown] tramadol 50 mg tablet 50 mg PO Q6H PRN 01/19/22 [History Last Taken Unknown] prednisone 20 mg tablet 40 mg PO DAILY 6 days #12 tabs 11/21/22 [Rx Last Taken Unknown] Allergy/AdvReac Type Severity Reaction Status Date / Time No Known Allergies Allergy Verified 01/19/22 13:56 Surgical History History of carpal tunnel release of both wrists Hx of arthroscopy of right knee Hx of cholecystectomy Hx of removal of cyst Social History Smoking Status: Never smoker ROS ROS ED ROS Narrative Denies recent illness. Review of Systems ROS Unobtainable: Denies due to encephalopathy Constitutional Constitutional ED: Denies chills or fever(s) Eyes Eyes: Denies blurry vision ENT ENT ED: Denies ear pain Cardiovascular Cardiovascular: Denies chest pain or palpitations Respiratory/Chest Respiratory/Chest: Denies cough or dyspnea Gastrointestinal Gastrointestinal: Denies abdominal pain or constipation Genitourinary Genitourinary ED: Denies dysuria or hematuria Musculoskeletal Musculoskeletal: Denies arthralgias or back pain Integumentary Denies abscess Neurologic Neurologic: Denies headache(s) Psychiatric Psychiatric: Denies anxiety Endocrine Endocrinology: Denies polydipsia Hematologic/Lymphatic Hematologic/Lymphatic: Denies easy bleeding Allergic/Immunologic Allergic/Immunologic ED: Denies mouth swelling or tongue swelling EXAM Physical Exam Narrative Exam Narrative: Six 7-year-old female vital signs are stable afebrile. She does not look septictoxic. She is in no distress. at bedside. H EENT exam unremarkable. Neck nontender. Lungs are clear. Heart regular rhythm no murmur. Rate about 80. Abdomen soft nontender. Moving all 4 extremities. Neurovascular intact. Specifically right hip nontender. No inguinal lymphadenopathy. Right knee prior knee replacement. Well-healed incision. No effusion or swelling at this time. No redness to the knee. Right ankle is tender to palpation both mediallyand laterally. There is no significant swelling. She has a very strong palpable DP pulse. She has pain with palpation of the ankle. There is no significant swelling. No cellulitis. It is warm to the touch. Foot is nontender. Normal cap refill. Normal touch sensation. Able to wiggle her toes. Calf is nontender without edema or cords. There is no lymphangitic streaking. Const Vital Signs: 11/21/22 01:14 Temperature 97.4 F L Temperature Source Temporal Pulse Rate 81 Respiratory Rate 16 Blood Pressure 174/84 H Blood Pressure Mean 114 Pulse Ox 98 Oxygen Delivery Method Room Air Positive well nourished and well developed; Negative for cachectic, contracturesor unkempt General Appearance ED: well developed and NAD; Negative for unkempt, cachectic or contractures Nutritional Appearance: Negative for cachectic HEENT Reports moist mucous membranes normocephalic and atraumatic; Negative for trauma or tenderness Eyes PERRL General Eye ED: Negative for other Neck full ROM and supple Lymph Lymphatic: Negative for other Chest Wall inspection of chest normal and palpation of chest normal Resp normal respiratory effort, no retractions and clear to auscultation bilaterally Effort and Inspection: Negative for pain with movement Auscultation: Negative for rales, rhonchi or wheezes Cardio regular rate, regular rhythm, S1 normal heart sound, S2 normal heart sound and no murmurs Rate: Negative for bradycardia or tachycardic GI non-tender, non-distended and no masses Inspection: Negative for abdominal distention Auscultation: normoactive bowel sounds Palpation: soft; Negative for tender or guarding Back/Spine no CVA tenderness General Back: Negative for CVA tenderness Cervical Spine: Negative for cervical spine tenderness Thoracic Spine / Upper Back: Negative for thoracic spinal tenderness Lumbar Spine / Lower Back: Negative for lumbar spinal tenderness Extremity normal to inspection Extremity Narrative: Except right ankle is tender to touch both medially and laterally. No bony deformity. Slightly warm. No redness. No septic joint. No swelling. Normal DP pulse. Foot nontender. Neurovascular intact. General Extremety ED: Yes weight-bearing difficulty; Negative for cyanosis or edema General Extremity: weight-bearing difficulty; Negative for cyanosis or edema Neuro oriented x3, CN's II-XII intact bilaterally, moves all extremities and no sensory deficits noted Sensorium / Orientation: alert, oriented to person, oriented to place and oriented to time; Negative for orientation impaired, confused, lethargic or stuporous Motor Exam: strength 5/5 throughout Psych mental status grossly normal Appearance: Negative for unkempt Speech: No other Mood & Affect: Negative for anxious Skin no wounds Lesions: no lesions Rashes: no rashes Trauma: Negative for abrasion, laceration or puncture MDM MDM MDM Narrative Medical decision making narrative: 67-year-old female atraumatic right ankle pain. Clinically there is no cellulitis. It does not look like a septic joint. She has no history of gout and clinically does not look like gout. X-ray shows chronic changes but no fracture or dislocation. I think this is secondary to arthritis. She states she kind of twisted her ankle she put in her shoe and after that is when the plane started. She will be given [place] here for pain. Started on prednisone 40 mg a for 7 days. First dose given here. She is a walker at home. Stressed both to her and her that if this gets red, swollen or fever she needs to return to have it reevaluated if is not improving she needs to follow-up with her primary care physician. Radiography Diagnostic Testing: Right ankle x-ray 3 views interpreted by myself shows no acute abnormality. Arthritis with joint space narrowing. No fracture or dislocation. No significant soft tissue swelling. Differential Diagnosis Differential Diagnosis: Arthritis versus gout versus infection. Clinically does not look infected. Clinically does not look like gout. Its not red. Its not swollen. Discharge Plan Triage Chief Complaint: Lower Extremity Injury ED Provider: Ashwin Valencia Dx/Rx/DC Orders Clinical Impression: Acute right ankle pain, Arthritis Instructions: ED Arthralgia, ED Osteoarthritis Prescriptions: New prednisone 20 mg tablet 40 mg PO DAILY 6 Days Qty: 12 0RF No Action methocarbamol 500 mg tablet 500 mg PO TID tramadol 50 mg tablet 50 mg PO Q6H PRN Cholecalciferol (Vitamin D3) [Vitamin D3] 5,000 UNIT capsule 2 tab PO DAILY prednisone 20 MG tablet 60 mg PO DAILY Qty: 9 0RF Primary Care Provider: Patt Jones Referrals: Patt Jones DO [Primary Care Provider] - 3-5 Days if not improving Activity Restrictions/Additional Instructions: Ice and elevate your ankle to decrease pain and swelling. [place] for pain. Do not drive while taking the pain medication. Make sure you are drinking plenty of water and fruits and vegetables and fiber to prevent constipation. Prednisone 40 mg a day for the next 6 days starting on Monday. Follow-up with your doctor if not improving. Return if this gets red, real swollen, fever or you are feeling worse. At this time there is no signs of infection. Disposition Disposition: Home, Self Care What to do if you have Problems For any increased pain, shortness of breath, bleeding, nausea or vomiting, chestpain, or any unexpected problems, contact your Primary Care Provider. Call [facility] ([phone]) or report to the closest Emergency Room. Call 911 if necessary. 11/21/22 0354 <Electronically signed by Ashwin Valencia MD> Cosigner Signature (if applicable): CC: Dr. Patt Jones DO ~ Signed [facility] Work Phone: Evaluation noteNo assessment information available [facility] Work Phone: Evaluation note* Diagnosis Onset Date Resolution Status Compression fracture of body of thoracic vertebra acute Compression fx, lumbar spine acute Left knee DJD acute Lower extremity edema acute Lumbar spondylosis acute Neuropathy acute Right knee pain acute S/P total knee arthroplasty acute [facility] Work Phone: Evaluation note* Diagnosis Onset Date Resolution Status Admit Date Acute pain of left hip acute Ju ly 2024 11:04am [facility] Work Phone: Hospital Discharge instructions Additional Instructions Ice and elevate your ankle to decrease pain and swelling. [place] for pain. Do not drive while taking the pain medication. Make sure you are drinking plenty of water and fruits and vegetables and fiber to prevent constipation. Prednisone 40 mg a day for the next 6 days starting on Monday. Follow-up with your doctor if not improving. Return if this gets red, real swollen, fever or you are feeling worse. At this time there is no signs of infection.[facility] Work Phone: Hospital Discharge instructionsAdditional Instructions Stop taking your antibiotics prescribed by your primary care physician. Start taking the vancomycin. You received your first dose here in the emergency department. Follow-up with your primary care physician. Return back to the ED if symptoms change or worsen. [facility] Work Phone: Instructions* Name Dates Details Patient Instructions Indication:Non-smoker Start:21-Dec-2020 Instruction Type:Provider Instructions for Treatment How to Access Health Informa tion Online using Patient Portal and [employer] Apps Indication:Non-smoker Start:21-Dec-2020 Instruction Type:Patient Education Patient Instructions Indication:BMI 34.0-34.9,adult Start:11-Dec-2020 Instruction Type:Provider Instructions for Treatment How to Access Health Informa tion Online using Patient Portal and [employer] Apps Indication:BMI 34.0-34.9,adult Start:11-Dec-2020 Instruction Type:Patient Education Patient Instructions Indication:Non-smoker Start:04-Dec-2020 Instruction Type:Provider Instructions for Treatment How to Access Health Informa tion Online using Patient Portal and [employer] Apps Indication:Non-smoker Start:04-Dec-2020 Instruction Type:Patient Education How to Access Health Informa tion Online using Patient Portal and [employer]rd [employer] Apps Indication:Non-smoker Start:20-Nov-2020 Instruction Type:Patient Education Patient Instructions Indication:Non-smoker Start:20-Nov-2020 Instruction Type:Provider Instructions for Treatment How to access health informa tion online Indication:Non-smoker Start:01-May-2020 Instruction Type:Patient Education How to access health informa tion online - Detail Indication:Non-smoker Start:01-May-2020 Instruction Type:Patient Education Patient Instructions Indication:Non-smoker Start:01-May-2020 Instruction Type:Provider Instructions for Treatment How to access health informa tion online Indication:Non-smoker Start:12-Feb-2020 Instruction Type:Patient Education How to access health informa tion online - Detail Indication:Non-smoker Start:12-Feb-2020 Instruction Type:Patient Education Patient Instructions Indication:Non-smoker Start:12-Feb-2020 Instruction Type:Provider Instructions for Treatment How to access health informa tion online Indication:Non-smoker Start:06-Jul-2018 Instruction Type:Patient Education How to access health informa tion online - Detail Indication:Non-smoker Start:06-Jul-2018 Instruction Type:Patient Education Patient Instructions Indication:Non-smoker Start:06-Jul-2018 Instruction Type:Provider Instructions for Treatment obesity counseling Indication:Unspecified osteoarthritis, unspecified site Start:16-May-2018 Instruction Type:Provider Instructions for Treatment How to access health informa tion online Indication:Non-smoker Start:16-May-2018 Instruction Type:Patient Education Patient Instructions Indication:Non-smoker Start:16-May-2018 Instruction Type:Provider Instructions for Treatment How to access health informa tion online Indication:Non-smoker Start:27-Apr-2018 Instruction Type:Patient Education How to access health informa tion online - Detail Indication:Non-smoker Start:27-Apr-2018 Instruction Type:Patient Education How to access health informa tion online Indication:Hypercholesteremia Start:21-Jan-2016 Instruction Type:Patient Education How to access health informa tion online - Detail Indication:Hypercholesteremia Start:21-Jan-2016 Instruction Type:Patient Education Patient Instructions Indication:Hypercholesteremia Start:21-Jan-2016 Instruction Type:Provider Instructions for Treatment How to access health informa tion online Indication:Arthritis, rheumatoid Start:02-Nov-2015 Instruction Type:Patient Education How to access health informa tion online - Detail Indication:Arthritis, rheumatoid Start:02-Nov-2015 Instruction Type:Patient Education Patient Instructions Indication:Arthritis, rheumatoid Start:02-Nov-2015 Instruction Type:Provider Instructions for Treatment Patient Instructions Indication:Muscle strain Start:03-May-2013 Instruction Type:Provider Instructions for Treatment Patient Instructions Indication:Sciatica Start:17-Jan-2013 Instruction Type:Provider Instructions for Treatment Patient Instructions Indication:Cough Start:19-Dec-2012 Instruction Type:Provider Instructions for Treatment Patient Instructions Indication:Sore throat Start:19-Dec-2012 Instruction Type:Provider Instructions for Treatment Patient Instructions Indication:Hypercholesteremia Start:15-Jun-2012 Instruction Type:Provider Instructions for Treatment [facility] Work Phone: Instructions* Name Dates Details Patient Instructions Indication:Non-smoker Start:21-Dec-2020 Instruction Type:Provider Instructions for Treatment How to Access Health Informa tion Online using Patient Portal and [employer] Apps Indication:Non-smoker Start:21-Dec-2020 Instruction Type:Patient Education Patient Instructions Indication:BMI 34.0-34.9,adult Start:11-Dec-2020 Instruction Type:Provider Instructions for Treatment How to Access Health Informa tion Online using Patient Portal and [employer] Apps Indication:BMI 34.0-34.9,adult Start:11-Dec-2020 Instruction Type:Patient Education Patient Instructions Indication:Non-smoker Start:04-Dec-2020 Instruction Type:Provider Instructions for Treatment How to Access Health Informa tion Online using Patient Portal and [employer] Apps Indication:Non-smoker Start:04-Dec-2020 Instruction Type:Patient Education How to Access Health Informa tion Online using Patient Portal and [employer] Apps Indication:Non-smoker Start:20-Nov-2020 Instruction Type:Patient Education Patient Instructions Indication:Non-smoker Start:20-Nov-2020 Instruction Type:Provider Instructions for Treatment How to access health informa tion online Indication:Non-smoker Start:01-May-2020 Instruction Type:Patient Education How to access health informa tion online - Detail Indication:Non-smoker Start:01-May-2020 Instruction Type:Patient Education Patient Instructions Indication:Non-smoker Start:01-May-2020 Instruction Type:Provider Instructions for Treatment How to access health informa tion online Indication:Non-smoker Start:12-Feb-2020 Instruction Type:Patient Education How to access health informa tion online - Detail Indication:Non-smoker Start:12-Feb-2020 Instruction Type:Patient Education Patient Instructions Indication:Non-smoker Start:12-Feb-2020 Instruction Type:Provider Instructions for Treatment How to access health informa tion online Indication:Non-smoker Start:06-Jul-2018 Instruction Type:Patient Education How to access health informa tion online - Detail Indication:Non-smoker Start:06-Jul-2018 Instruction Type:Patient Education Patient Instructions Indication:Non-smoker Start:06-Jul-2018 Instruction Type:Provider Instructions for Treatment obesity counseling Indication:Unspecified osteoarthritis, unspecified site Start:16-May-2018 Instruction Type:Provider Instructions for Treatment How to access health informa tion online Indication:Non-smoker Start:16-May-2018 Instruction Type:Patient Education Patient Instructions Indication:Non-smoker Start:16-May-2018 Instruction Type:Provider Instructions for Treatment How to access health informa tion online Indication:Non-smoker Start:27-Apr-2018 Instruction Type:Patient Education How to access health informa tion online - Detail Indication:Non-smoker Start:27-Apr-2018 Instruction Type:Patient Education How to access health informa tion online Indication:Hypercholesteremia Start:21-Jan-2016 Instruction Type:Patient Education How to access health informa tion online - Detail Indication:Hypercholesteremia Start:21-Jan-2016 Instruction Type:Patient Education Patient Instructions Indication:Hypercholesteremia Start:21-Jan-2016 Instruction Type:Provider Instructions for Treatment How to access health informa tion online Indication:Arthritis, rheumatoid Start:02-Nov-2015 Instruction Type:Patient Education How to access health informa tion online - Detail Indication:Arthritis, rheumatoid Start:02-Nov-2015 Instruction Type:Patient Education Patient Instructions Indication:Arthritis, rheumatoid Start:02-Nov-2015 Instruction Type:Provider Instructions for Treatment Patient Instructions Indication:Muscle strain Start:03-May-2013 Instruction Type:Provider Instructions for Treatment Patient Instructions Indication:Sciatica Start:17-Jan-2013 Instruction Type:Provider Instructions for Treatment Patient Instructions Indication:Cough Start:19-Dec-2012 Instruction Type:Provider Instructions for Treatment Patient Instructions Indication:Sore throat Start:19-Dec-2012 Instruction Type:Provider Instructions for Treatment Patient Instructions Indication:Hypercholesteremia Start:15-Jun-2012 Instruction Type:Provider Instructions for Treatment [facility] Work Phone: Instructions* Name Dates Details Patient Instructions Indication:Non-smoker Start:23-Feb-2021 Instruction Type:Provider Instructions for Treatment How to Access Health Informa tion Online using Patient Portal and [employer] Apps Indication:Non-smoker Start:23-Feb-2021 Instruction Type:Patient Education Patient Instructions Indication:Non-smoker Start:21-Dec-2020 Instruction Type:Provider Instructions for Treatment How to Access Health Informa tion Online using Patient Portal and [employer] Apps Indication:Non-smoker Start:21-Dec-2020 Instruction Type:Patient Education Patient Instructions Indication:BMI 34.0-34.9,adult Start:11-Dec-2020 Instruction Type:Provider Instructions for Treatment How to Access Health Informa tion Online using Patient Portal and [employer] Apps Indication:BMI 34.0-34.9,adult Start:11-Dec-2020 Instruction Type:Patient Education Patient Instructions Indication:Non-smoker Start:04-Dec-2020 Instruction Type:Provider Instructions for Treatment How to Access Health Informa tion Online using Patient Portal and [employer] Apps Indication:Non-smoker Start:04-Dec-2020 Instruction Type:Patient Education How to Access Health Informa tion Online using Patient Portal and [employer] Apps Indication:Non-smoker Start:20-Nov-2020 Instruction Type:Patient Education Patient Instructions Indication:Non-smoker Start:20-Nov-2020 Instruction Type:Provider Instructions for Treatment How to access health informa tion online Indication:Non-smoker Start:01-May-2020 Instruction Type:Patient Education How to access health informa tion online - Detail Indication:Non-smoker Start:01-May-2020 Instruction Type:Patient Education Patient Instructions Indication:Non-smoker Start:01-May-2020 Instruction Type:Provider Instructions for Treatment How to access health informa tion online Indication:Non-smoker Start:12-Feb-2020 Instruction Type:Patient Education How to access health informa tion online - Detail Indication:Non-smoker Start:12-Feb-2020 Instruction Type:Patient Education Patient Instructions Indication:Non-smoker Start:12-Feb-2020 Instruction Type:Provider Instructions for Treatment How to access health informa tion online Indication:Non-smoker Start:06-Jul-2018 Instruction Type:Patient Education How to access health informa tion online - Detail Indication:Non-smoker Start:06-Jul-2018 Instruction Type:Patient Education Patient Instructions Indication:Non-smoker Start:06-Jul-2018 Instruction Type:Provider Instructions for Treatment obesity counseling Indication:Unspecified osteoarthritis, unspecified site Start:16-May-2018 Instruction Type:Provider Instructions for Treatment How to access health informa tion online Indication:Non-smoker Start:16-May-2018 Instruction Type:Patient Education Patient Instructions Indication:Non-smoker Start:16-May-2018 Instruction Type:Provider Instructions for Treatment How to access health informa tion online Indication:Non-smoker Start:27-Apr-2018 Instruction Type:Patient Education How to access health informa tion online - Detail Indication:Non-smoker Start:27-Apr-2018 Instruction Type:Patient Education How to access health informa tion online Indication:Hypercholesteremia Start:21-Jan-2016 Instruction Type:Patient Education How to access health informa tion online - Detail Indication:Hypercholesteremia Start:21-Jan-2016 Instruction Type:Patient Education Patient Instructions Indication:Hypercholesteremia Start:21-Jan-2016 Instruction Type:Provider Instructions for Treatment How to access health informa tion online Indication:Arthritis, rheumatoid Start:02-Nov-2015 Instruction Type:Patient Education How to access health informa tion online - Detail Indication:Arthritis, rheumatoid Start:02-Nov-2015 Instruction Type:Patient Education Patient Instructions Indication:Arthritis, rheumatoid Start:02-Nov-2015 Instruction Type:Provider Instructions for Treatment Patient Instructions Indication:Muscle strain Start:03-May-2013 Instruction Type:Provider Instructions for Treatment Patient Instructions Indication:Sciatica Start:17-Jan-2013 Instruction Type:Provider Instructions for Treatment Patient Instructions Indication:Cough Start:19-Dec-2012 Instruction Type:Provider Instructions for Treatment Patient Instructions Indication:Sore throat Start:19-Dec-2012 Instruction Type:Provider Instructions for Treatment Patient Instructions Indication:Hypercholesteremia Start:15-Jun-2012 Instruction Type:Provider Instructions for Treatment [facility] Work Phone: Instructions* Name Dates Details How to Access Health Informa tion Online using Patient Portal and [employer] Apps Indication:Non-smoker Start:11-Mar-2021 Instruction Type:Patient Education Patient Instructions Indication:Non-smoker Start:11-Mar-2021 Instruction Type:Provider Instructions for Treatment Patient Instructions Indication:Non-smoker Start:23-Feb-2021 Instruction Type:Provider Instructions for Treatment How to Access Health Informa tion Online using Patient Portal and [employer] Apps Indication:Non-smoker Start:23-Feb-2021 Instruction Type:Patient Education Patient Instructions Indication:Non-smoker Start:21-Dec-2020 Instruction Type:Provider Instructions for Treatment How to Access Health Informa tion Online using Patient Portal and [employer] Apps Indication:Non-smoker Start:21-Dec-2020 Instruction Type:Patient Education Patient Instructions Indication:BMI 34.0-34.9,adult Start:11-Dec-2020 Instruction Type:Provider Instructions for Treatment How to Access Health Informa tion Online using Patient Portal and [employer]rd [employer] Apps Indication:BMI 34.0-34.9,adult Start:11-Dec-2020 Instruction Type:Patient Education Patient Instructions Indication:Non-smoker Start:04-Dec-2020 Instruction Type:Provider Instructions for Treatment How to Access Health Informa tion Online using Patient Portal and [employer] Apps Indication:Non-smoker Start:04-Dec-2020 Instruction Type:Patient Education How to Access Health Informa tion Online using Patient Portal and [employer] Apps Indication:Non-smoker Start:20-Nov-2020 Instruction Type:Patient Education Patient Instructions Indication:Non-smoker Start:20-Nov-2020 Instruction Type:Provider Instructions for Treatment How to access health informa tion online Indication:Non-smoker Start:01-May-2020 Instruction Type:Patient Education How to access health informa tion online - Detail Indication:Non-smoker Start:01-May-2020 Instruction Type:Patient Education Patient Instructions Indication:Non-smoker Start:01-May-2020 Instruction Type:Provider Instructions for Treatment How to access health informa tion online Indication:Non-smoker Start:12-Feb-2020 Instruction Type:Patient Education How to access health informa tion online - Detail Indication:Non-smoker Start:12-Feb-2020 Instruction Type:Patient Education Patient Instructions Indication:Non-smoker Start:12-Feb-2020 Instruction Type:Provider Instructions for Treatment How to access health informa tion online Indication:Non-smoker Start:06-Jul-2018 Instruction Type:Patient Education How to access health informa tion online - Detail Indication:Non-smoker Start:06-Jul-2018 Instruction Type:Patient Education Patient Instructions Indication:Non-smoker Start:06-Jul-2018 Instruction Type:Provider Instructions for Treatment obesity counseling Indication:Unspecified osteoarthritis, unspecified site Start:16-May-2018 Instruction Type:Provider Instructions for Treatment How to access health informa tion online Indication:Non-smoker Start:16-May-2018 Instruction Type:Patient Education Patient Instructions Indication:Non-smoker Start:16-May-2018 Instruction Type:Provider Instructions for Treatment How to access health informa tion online Indication:Non-smoker Start:27-Apr-2018 Instruction Type:Patient Education How to access health informa tion online - Detail Indication:Non-smoker Start:27-Apr-2018 Instruction Type:Patient Education How to access health informa tion online Indication:Hypercholesteremia Start:21-Jan-2016 Instruction Type:Patient Education How to access health informa tion online - Detail Indication:Hypercholesteremia Start:21-Jan-2016 Instruction Type:Patient Education Patient Instructions Indication:Hypercholesteremia Start:21-Jan-2016 Instruction Type:Provider Instructions for Treatment How to access health informa tion online Indication:Arthritis, rheumatoid Start:02-Nov-2015 Instruction Type:Patient Education How to access health informa tion online - Detail Indication:Arthritis, rheumatoid Start:02-Nov-2015 Instruction Type:Patient Education Patient Instructions Indication:Arthritis, rheumatoid Start:02-Nov-2015 Instruction Type:Provider Instructions for Treatment Patient Instructions Indication:Muscle strain Start:03-May-2013 Instruction Type:Provider Instructions for Treatment Patient Instructions Indication:Sciatica Start:17-Jan-2013 Instruction Type:Provider Instructions for Treatment Patient Instructions Indication:Cough Start:19-Dec-2012 Instruction Type:Provider Instructions for Treatment Patient Instructions Indication:Sore throat Start:19-Dec-2012 Instruction Type:Provider Instructions for Treatment Patient Instructions Indication:Hypercholesteremia Start:15-Jun-2012 Instruction Type:Provider Instructions for Treatment [facility] Work Phone: Instructions* Name Dates Details Patient Instructions Indication:Non-smoker Start:02-Jul-2021 Instruction Type:Provider Instructions for Treatment How to Access Health Informa tion Online using Patient Portal and [employer] Apps Indication:Non-smoker Start:02-Jul-2021 Instruction Type:Patient Education Patient Instructions Indication:BMI 37.0-37.9, adult Start:26-Mar-2021 Instruction Type:Provider Instructions for Treatment How to Access Health Informa tion Online using Patient Portal and [employer] Apps Indication:BMI 37.0-37.9, adult Start:26-Mar-2021 Instruction Type:Patient Education Patient Instructions Indication:Non-smoker Start:23-Feb-2021 Instruction Type:Provider Instructions for Treatment How to Access Health Informa tion Online using Patient Portal and [employer] Apps Indication:Non-smoker Start:23-Feb-2021 Instruction Type:Patient Education Patient Instructions Indication:Non-smoker Start:21-Dec-2020 Instruction Type:Provider Instructions for Treatment How to Access Health Informa tion Online using Patient Portal and [employer] Apps Indication:Non-smoker Start:21-Dec-2020 Instruction Type:Patient Education Patient Instructions Indication:BMI 34.0-34.9,adult Start:11-Dec-2020 Instruction Type:Provider Instructions for Treatment How to Access Health Informa tion Online using Patient Portal and [employer] Apps Indication:BMI 34.0-34.9,adult Start:11-Dec-2020 Instruction Type:Patient Education Patient Instructions Indication:Non-smoker Start:04-Dec-2020 Instruction Type:Provider Instructions for Treatment How to Access Health Informa tion Online using Patient Portal and [employer] Apps Indication:Non-smoker Start:04-Dec-2020 Instruction Type:Patient Education How to Access Health Informa tion Online using Patient Portal and [employer] Apps Indication:Non-smoker Start:20-Nov-2020 Instruction Type:Patient Education Patient Instructions Indication:Non-smoker Start:20-Nov-2020 Instruction Type:Provider Instructions for Treatment How to access health informa tion online Indication:Non-smoker Start:01-May-2020 Instruction Type:Patient Education How to access health informa tion online - Detail Indication:Non-smoker Start:01-May-2020 Instruction Type:Patient Education Patient Instructions Indication:Non-smoker Start:01-May-2020 Instruction Type:Provider Instructions for Treatment How to access health informa tion online Indication:Non-smoker Start:12-Feb-2020 Instruction Type:Patient Education How to access health informa tion online - Detail Indication:Non-smoker Start:12-Feb-2020 Instruction Type:Patient Education Patient Instructions Indication:Non-smoker Start:12-Feb-2020 Instruction Type:Provider Instructions for Treatment How to access health informa tion online Indication:Non-smoker Start:06-Jul-2018 Instruction Type:Patient Education How to access health informa tion online - Detail Indication:Non-smoker Start:06-Jul-2018 Instruction Type:Patient Education Patient Instructions Indication:Non-smoker Start:06-Jul-2018 Instruction Type:Provider Instructions for Treatment obesity counseling Indication:Unspecified osteoarthritis, unspecified site Start:16-May-2018 Instruction Type:Provider Instructions for Treatment How to access health informa tion online Indication:Non-smoker Start:16-May-2018 Instruction Type:Patient Education Patient Instructions Indication:Non-smoker Start:16-May-2018 Instruction Type:Provider Instructions for Treatment How to access health informa tion online Indication:Non-smoker Start:27-Apr-2018 Instruction Type:Patient Education How to access health informa tion online - Detail Indication:Non-smoker Start:27-Apr-2018 Instruction Type:Patient Education How to access health informa tion online Indication:Hypercholesteremia Start:21-Jan-2016 Instruction Type:Patient Education How to access health informa tion online - Detail Indication:Hypercholesteremia Start:21-Jan-2016 Instruction Type:Patient Education Patient Instructions Indication:Hypercholesteremia Start:21-Jan-2016 Instruction Type:Provider Instructions for Treatment How to access health informa tion online Indication:Arthritis, rheumatoid Start:02-Nov-2015 Instruction Type:Patient Education How to access health informa tion online - Detail Indication:Arthritis, rheumatoid Start:02-Nov-2015 Instruction Type:Patient Education Patient Instructions Indication:Arthritis, rheumatoid Start:02-Nov-2015 Instruction Type:Provider Instructions for Treatment Patient Instructions Indication:Muscle strain Start:03-May-2013 Instruction Type:Provider Instructions for Treatment Patient Instructions Indication:Sciatica Start:17-Jan-2013 Instruction Type:Provider Instructions for Treatment Patient Instructions Indication:Cough Start:19-Dec-2012 Instruction Type:Provider Instructions for Treatment Patient Instructions Indication:Sore throat Start:19-Dec-2012 Instruction Type:Provider Instructions for Treatment Patient Instructions Indication:Hypercholesteremia Start:15-Jun-2012 Instruction Type:Provider Instructions for Treatment [facility]; [facility] Work Phone: Instructions* Name Dates Details Patient Instructions Indication:Non-smoker Start:02-Jul-2021 Instruction Type:Provider Instructions for Treatment How to Access Health Informa tion Online using Patient Portal and [employer]rd [employer] Apps Indication:Non-smoker Start:02-Jul-2021 Instruction Type:Patient Education Patient Instructions Indication:BMI 37.0-37.9, adult Start:26-Mar-2021 Instruction Type:Provider Instructions for Treatment How to Access Health Informa tion Online using Patient Portal and [employer]rd [employer] Apps Indication:BMI 37.0-37.9, adult Start:26-Mar-2021 Instruction Type:Patient Education Patient Instructions Indication:Non-smoker Start:23-Feb-2021 Instruction Type:Provider Instructions for Treatment How to Access Health Informa tion Online using Patient Portal and [employer] Apps Indication:Non-smoker Start:23-Feb-2021 Instruction Type:Patient Education Patient Instructions Indication:Non-smoker Start:21-Dec-2020 Instruction Type:Provider Instructions for Treatment How to Access Health Informa tion Online using Patient Portal and [employer] Apps Indication:Non-smoker Start:21-Dec-2020 Instruction Type:Patient Education Patient Instructions Indication:BMI 34.0-34.9,adult Start:11-Dec-2020 Instruction Type:Provider Instructions for Treatment How to Access Health Informa tion Online using Patient Portal and [employer]rd [employer] Apps Indication:BMI 34.0-34.9,adult Start:11-Dec-2020 Instruction Type:Patient Education Patient Instructions Indication:Non-smoker Start:04-Dec-2020 Instruction Type:Provider Instructions for Treatment How to Access Health Informa tion Online using Patient Portal and [employer] Apps Indication:Non-smoker Start:04-Dec-2020 Instruction Type:Patient Education How to Access Health Informa tion Online using Patient Portal and [employer] Apps Indication:Non-smoker Start:20-Nov-2020 Instruction Type:Patient Education Patient Instructions Indication:Non-smoker Start:20-Nov-2020 Instruction Type:Provider Instructions for Treatment How to access health informa tion online Indication:Non-smoker Start:01-May-2020 Instruction Type:Patient Education How to access health informa tion online - Detail Indication:Non-smoker Start:01-May-2020 Instruction Type:Patient Education Patient Instructions Indication:Non-smoker Start:01-May-2020 Instruction Type:Provider Instructions for Treatment How to access health informa tion online Indication:Non-smoker Start:12-Feb-2020 Instruction Type:Patient Education How to access health informa tion online - Detail Indication:Non-smoker Start:12-Feb-2020 Instruction Type:Patient Education Patient Instructions Indication:Non-smoker Start:12-Feb-2020 Instruction Type:Provider Instructions for Treatment How to access health informa tion online Indication:Non-smoker Start:06-Jul-2018 Instruction Type:Patient Education How to access health informa tion online - Detail Indication:Non-smoker Start:06-Jul-2018 Instruction Type:Patient Education Patient Instructions Indication:Non-smoker Start:06-Jul-2018 Instruction Type:Provider Instructions for Treatment obesity counseling Indication:Unspecified osteoarthritis, unspecified site Start:16-May-2018 Instruction Type:Provider Instructions for Treatment How to access health informa tion online Indication:Non-smoker Start:16-May-2018 Instruction Type:Patient Education Patient Instructions Indication:Non-smoker Start:16-May-2018 Instruction Type:Provider Instructions for Treatment How to access health informa tion online Indication:Non-smoker Start:27-Apr-2018 Instruction Type:Patient Education How to access health informa tion online - Detail Indication:Non-smoker Start:27-Apr-2018 Instruction Type:Patient Education How to access health informa tion online Indication:Hypercholesteremia Start:21-Jan-2016 Instruction Type:Patient Education How to access health informa tion online - Detail Indication:Hypercholesteremia Start:21-Jan-2016 Instruction Type:Patient Education Patient Instructions Indication:Hypercholesteremia Start:21-Jan-2016 Instruction Type:Provider Instructions for Treatment How to access health informa tion online Indication:Arthritis, rheumatoid Start:02-Nov-2015 Instruction Type:Patient Education How to access health informa tion online - Detail Indication:Arthritis, rheumatoid Start:02-Nov-2015 Instruction Type:Patient Education Patient Instructions Indication:Arthritis, rheumatoid Start:02-Nov-2015 Instruction Type:Provider Instructions for Treatment Patient Instructions Indication:Muscle strain Start:03-May-2013 Instruction Type:Provider Instructions for Treatment Patient Instructions Indication:Sciatica Start:17-Jan-2013 Instruction Type:Provider Instructions for Treatment Patient Instructions Indication:Cough Start:19-Dec-2012 Instruction Type:Provider Instructions for Treatment Patient Instructions Indication:Sore throat Start:19-Dec-2012 Instruction Type:Provider Instructions for Treatment Patient Instructions Indication:Hypercholesteremia Start:15-Jun-2012 Instruction Type:Provider Instructions for Treatment [facility]; [facility] Work Phone: Instructions* Name Dates Details Patient Instructions Indication:Non-smoker Start:02-Jul-2021 Instruction Type:Provider Instructions for Treatment How to Access Health Informa tion Online using Patient Portal and [employer] Apps Indication:Non-smoker Start:02-Jul-2021 Instruction Type:Patient Education Patient Instructions Indication:BMI 37.0-37.9, adult Start:26-Mar-2021 Instruction Type:Provider Instructions for Treatment How to Access Health Informa tion Online using Patient Portal and [employer] Apps Indication:BMI 37.0-37.9, adult Start:26-Mar-2021 Instruction Type:Patient Education Patient Instructions Indication:Non-smoker Start:23-Feb-2021 Instruction Type:Provider Instructions for Treatment How to Access Health Informa tion Online using Patient Portal and [employer] Apps Indication:Non-smoker Start:23-Feb-2021 Instruction Type:Patient Education Patient Instructions Indication:Non-smoker Start:21-Dec-2020 Instruction Type:Provider Instructions for Treatment How to Access Health Informa tion Online using Patient Portal and [employer] Apps Indication:Non-smoker Start:21-Dec-2020 Instruction Type:Patient Education Patient Instructions Indication:BMI 34.0-34.9,adult Start:11-Dec-2020 Instruction Type:Provider Instructions for Treatment How to Access Health Informa tion Online using Patient Portal and [employer]rd [employer] Apps Indication:BMI 34.0-34.9,adult Start:11-Dec-2020 Instruction Type:Patient Education Patient Instructions Indication:Non-smoker Start:04-Dec-2020 Instruction Type:Provider Instructions for Treatment How to Access Health Informa tion Online using Patient Portal and [employer] Apps Indication:Non-smoker Start:04-Dec-2020 Instruction Type:Patient Education How to Access Health Informa tion Online using Patient Portal and [employer] Apps Indication:Non-smoker Start:20-Nov-2020 Instruction Type:Patient Education Patient Instructions Indication:Non-smoker Start:20-Nov-2020 Instruction Type:Provider Instructions for Treatment How to access health informa tion online Indication:Non-smoker Start:01-May-2020 Instruction Type:Patient Education How to access health informa tion online - Detail Indication:Non-smoker Start:01-May-2020 Instruction Type:Patient Education Patient Instructions Indication:Non-smoker Start:01-May-2020 Instruction Type:Provider Instructions for Treatment How to access health informa tion online Indication:Non-smoker Start:12-Feb-2020 Instruction Type:Patient Education How to access health informa tion online - Detail Indication:Non-smoker Start:12-Feb-2020 Instruction Type:Patient Education Patient Instructions Indication:Non-smoker Start:12-Feb-2020 Instruction Type:Provider Instructions for Treatment How to access health informa tion online Indication:Non-smoker Start:06-Jul-2018 Instruction Type:Patient Education How to access health informa tion online - Detail Indication:Non-smoker Start:06-Jul-2018 Instruction Type:Patient Education Patient Instructions Indication:Non-smoker Start:06-Jul-2018 Instruction Type:Provider Instructions for Treatment obesity counseling Indication:Unspecified osteoarthritis, unspecified site Start:16-May-2018 Instruction Type:Provider Instructions for Treatment How to access health informa tion online Indication:Non-smoker Start:16-May-2018 Instruction Type:Patient Education Patient Instructions Indication:Non-smoker Start:16-May-2018 Instruction Type:Provider Instructions for Treatment How to access health informa tion online Indication:Non-smoker Start:27-Apr-2018 Instruction Type:Patient Education How to access health informa tion online - Detail Indication:Non-smoker Start:27-Apr-2018 Instruction Type:Patient Education How to access health informa tion online Indication:Hypercholesteremia Start:21-Jan-2016 Instruction Type:Patient Education How to access health informa tion online - Detail Indication:Hypercholesteremia Start:21-Jan-2016 Instruction Type:Patient Education Patient Instructions Indication:Hypercholesteremia Start:21-Jan-2016 Instruction Type:Provider Instructions for Treatment How to access health informa tion online Indication:Arthritis, rheumatoid Start:02-Nov-2015 Instruction Type:Patient Education How to access health informa tion online - Detail Indication:Arthritis, rheumatoid Start:02-Nov-2015 Instruction Type:Patient Education Patient Instructions Indication:Arthritis, rheumatoid Start:02-Nov-2015 Instruction Type:Provider Instructions for Treatment Patient Instructions Indication:Muscle strain Start:03-May-2013 Instruction Type:Provider Instructions for Treatment Patient Instructions Indication:Sciatica Start:17-Jan-2013 Instruction Type:Provider Instructions for Treatment Patient Instructions Indication:Cough Start:19-Dec-2012 Instruction Type:Provider Instructions for Treatment Patient Instructions Indication:Sore throat Start:19-Dec-2012 Instruction Type:Provider Instructions for Treatment Patient Instructions Indication:Hypercholesteremia Start:15-Jun-2012 Instruction Type:Provider Instructions for Treatment [facility]; [facility] Work Phone: Instructions* Name Dates Details Patient Instructions Indication:Non-smoker Start:02-Jul-2021 Instruction Type:Provider Instructions for Treatment How to Access Health Informa tion Online using Patient Portal and [employer]rd [employer] Apps Indication:Non-smoker Start:02-Jul-2021 Instruction Type:Patient Education Patient Instructions Indication:BMI 37.0-37.9, adult Start:26-Mar-2021 Instruction Type:Provider Instructions for Treatment How to Access Health Informa tion Online using Patient Portal and [employer] Apps Indication:BMI 37.0-37.9, adult Start:26-Mar-2021 Instruction Type:Patient Education Patient Instructions Indication:Non-smoker Start:23-Feb-2021 Instruction Type:Provider Instructions for Treatment How to Access Health Informa tion Online using Patient Portal and [employer] Apps Indication:Non-smoker Start:23-Feb-2021 Instruction Type:Patient Education Patient Instructions Indication:Non-smoker Start:21-Dec-2020 Instruction Type:Provider Instructions for Treatment How to Access Health Informa tion Online using Patient Portal and [employer] Apps Indication:Non-smoker Start:21-Dec-2020 Instruction Type:Patient Education Patient Instructions Indication:BMI 34.0-34.9,adult Start:11-Dec-2020 Instruction Type:Provider Instructions for Treatment How to Access Health Informa tion Online using Patient Portal and [employer] Apps Indication:BMI 34.0-34.9,adult Start:11-Dec-2020 Instruction Type:Patient Education Patient Instructions Indication:Non-smoker Start:04-Dec-2020 Instruction Type:Provider Instructions for Treatment How to Access Health Informa tion Online using Patient Portal and [employer] Apps Indication:Non-smoker Start:04-Dec-2020 Instruction Type:Patient Education How to Access Health Informa tion Online using Patient Portal and [employer] Apps Indication:Non-smoker Start:20-Nov-2020 Instruction Type:Patient Education Patient Instructions Indication:Non-smoker Start:20-Nov-2020 Instruction Type:Provider Instructions for Treatment How to access health informa tion online Indication:Non-smoker Start:01-May-2020 Instruction Type:Patient Education How to access health informa tion online - Detail Indication:Non-smoker Start:01-May-2020 Instruction Type:Patient Education Patient Instructions Indication:Non-smoker Start:01-May-2020 Instruction Type:Provider Instructions for Treatment How to access health informa tion online Indication:Non-smoker Start:12-Feb-2020 Instruction Type:Patient Education How to access health informa tion online - Detail Indication:Non-smoker Start:12-Feb-2020 Instruction Type:Patient Education Patient Instructions Indication:Non-smoker Start:12-Feb-2020 Instruction Type:Provider Instructions for Treatment How to access health informa tion online Indication:Non-smoker Start:06-Jul-2018 Instruction Type:Patient Education How to access health informa tion online - Detail Indication:Non-smoker Start:06-Jul-2018 Instruction Type:Patient Education Patient Instructions Indication:Non-smoker Start:06-Jul-2018 Instruction Type:Provider Instructions for Treatment obesity counseling Indication:Unspecified osteoarthritis, unspecified site Start:16-May-2018 Instruction Type:Provider Instructions for Treatment How to access health informa tion online Indication:Non-smoker Start:16-May-2018 Instruction Type:Patient Education Patient Instructions Indication:Non-smoker Start:16-May-2018 Instruction Type:Provider Instructions for Treatment How to access health informa tion online Indication:Non-smoker Start:27-Apr-2018 Instruction Type:Patient Education How to access health informa tion online - Detail Indication:Non-smoker Start:27-Apr-2018 Instruction Type:Patient Education How to access health informa tion online Indication:Hypercholesteremia Start:21-Jan-2016 Instruction Type:Patient Education How to access health informa tion online - Detail Indication:Hypercholesteremia Start:21-Jan-2016 Instruction Type:Patient Education Patient Instructions Indication:Hypercholesteremia Start:21-Jan-2016 Instruction Type:Provider Instructions for Treatment How to access health informa tion online Indication:Arthritis, rheumatoid Start:02-Nov-2015 Instruction Type:Patient Education How to access health informa tion online - Detail Indication:Arthritis, rheumatoid Start:02-Nov-2015 Instruction Type:Patient Education Patient Instructions Indication:Arthritis, rheumatoid Start:02-Nov-2015 Instruction Type:Provider Instructions for Treatment Patient Instructions Indication:Muscle strain Start:03-May-2013 Instruction Type:Provider Instructions for Treatment Patient Instructions Indication:Sciatica Start:17-Jan-2013 Instruction Type:Provider Instructions for Treatment Patient Instructions Indication:Cough Start:19-Dec-2012 Instruction Type:Provider Instructions for Treatment Patient Instructions Indication:Sore throat Start:19-Dec-2012 Instruction Type:Provider Instructions for Treatment Patient Instructions Indication:Hypercholesteremia Start:15-Jun-2012 Instruction Type:Provider Instructions for Treatment [facility]; [facility] Work Phone: Instructions* Name Dates Details Patient Instructions Indication:Non-smoker Start:26-Jan-2022 Instruction Type:Provider Instructions for Treatment How to Access Health Informa tion Online using Patient Portal and [employer] Apps Indication:Non-smoker Start:26-Jan-2022 Instruction Type:Patient Education Patient Instructions Indication:Non-smoker Start:02-Jul-2021 Instruction Type:Provider Instructions for Treatment How to Access Health Informa tion Online using Patient Portal and [employer] Apps Indication:Non-smoker Start:02-Jul-2021 Instruction Type:Patient Education Patient Instructions Indication:BMI 37.0-37.9, adult Start:26-Mar-2021 Instruction Type:Provider Instructions for Treatment How to Access Health Informa tion Online using Patient Portal and [employer] Apps Indication:BMI 37.0-37.9, adult Start:26-Mar-2021 Instruction Type:Patient Education Patient Instructions Indication:Non-smoker Start:23-Feb-2021 Instruction Type:Provider Instructions for Treatment How to Access Health Informa tion Online using Patient Portal and [employer] Apps Indication:Non-smoker Start:23-Feb-2021 Instruction Type:Patient Education Patient Instructions Indication:Non-smoker Start:21-Dec-2020 Instruction Type:Provider Instructions for Treatment How to Access Health Informa tion Online using Patient Portal and [employer] Apps Indication:Non-smoker Start:21-Dec-2020 Instruction Type:Patient Education Patient Instructions Indication:BMI 34.0-34.9,adult Start:11-Dec-2020 Instruction Type:Provider Instructions for Treatment How to Access Health Informa tion Online using Patient Portal and [employer] Apps Indication:BMI 34.0-34.9,adult Start:11-Dec-2020 Instruction Type:Patient Education Patient Instructions Indication:Non-smoker Start:04-Dec-2020 Instruction Type:Provider Instructions for Treatment How to Access Health Informa tion Online using Patient Portal and [employer] Apps Indication:Non-smoker Start:04-Dec-2020 Instruction Type:Patient Education How to Access Health Informa tion Online using Patient Portal and [employer] Apps Indication:Non-smoker Start:20-Nov-2020 Instruction Type:Patient Education Patient Instructions Indication:Non-smoker Start:20-Nov-2020 Instruction Type:Provider Instructions for Treatment How to access health informa tion online Indication:Non-smoker Start:01-May-2020 Instruction Type:Patient Education How to access health informa tion online - Detail Indication:Non-smoker Start:01-May-2020 Instruction Type:Patient Education Patient Instructions Indication:Non-smoker Start:01-May-2020 Instruction Type:Provider Instructions for Treatment How to access health informa tion online Indication:Non-smoker Start:12-Feb-2020 Instruction Type:Patient Education How to access health informa tion online - Detail Indication:Non-smoker Start:12-Feb-2020 Instruction Type:Patient Education Patient Instructions Indication:Non-smoker Start:12-Feb-2020 Instruction Type:Provider Instructions for Treatment How to access health informa tion online Indication:Non-smoker Start:06-Jul-2018 Instruction Type:Patient Education How to access health informa tion online - Detail Indication:Non-smoker Start:06-Jul-2018 Instruction Type:Patient Education Patient Instructions Indication:Non-smoker Start:06-Jul-2018 Instruction Type:Provider Instructions for Treatment obesity counseling Indication:Unspecified osteoarthritis, unspecified site Start:16-May-2018 Instruction Type:Provider Instructions for Treatment How to access health informa tion online Indication:Non-smoker Start:16-May-2018 Instruction Type:Patient Education Patient Instructions Indication:Non-smoker Start:16-May-2018 Instruction Type:Provider Instructions for Treatment How to access health informa tion online Indication:Non-smoker Start:27-Apr-2018 Instruction Type:Patient Education How to access health informa tion online - Detail Indication:Non-smoker Start:27-Apr-2018 Instruction Type:Patient Education How to access health informa tion online Indication:Hypercholesteremia Start:21-Jan-2016 Instruction Type:Patient Education How to access health informa tion online - Detail Indication:Hypercholesteremia Start:21-Jan-2016 Instruction Type:Patient Education Patient Instructions Indication:Hypercholesteremia Start:21-Jan-2016 Instruction Type:Provider Instructions for Treatment How to access health informa tion online Indication:Arthritis, rheumatoid Start:02-Nov-2015 Instruction Type:Patient Education How to access health informa tion online - Detail Indication:Arthritis, rheumatoid Start:02-Nov-2015 Instruction Type:Patient Education Patient Instructions Indication:Arthritis, rheumatoid Start:02-Nov-2015 Instruction Type:Provider Instructions for Treatment Patient Instructions Indication:Muscle strain Start:03-May-2013 Instruction Type:Provider Instructions for Treatment Patient Instructions Indication:Sciatica Start:17-Jan-2013 Instruction Type:Provider Instructions for Treatment Patient Instructions Indication:Cough Start:19-Dec-2012 Instruction Type:Provider Instructions for Treatment Patient Instructions Indication:Sore throat Start:19-Dec-2012 Instruction Type:Provider Instructions for Treatment Patient Instructions Indication:Hypercholesteremia Start:15-Jun-2012 Instruction Type:Provider Instructions for Treatment [facility]; [facility] Work Phone: Instructions* Name Dates Details Patient Instructions Indication:Non-smoker Start:26-Jan-2022 Instruction Type:Provider Instructions for Treatment How to Access Health Informa tion Online using Patient Portal and [employer] Indication:Non-smoker Start:26-Jan-2022 Instruction Type:Patient Education Patient Instructions Indication:Non-smoker Start:02-Jul-2021 Instruction Type:Provider Instructions for Treatment How to Access Health Informa tion Online using Patient Portal and [employer] Indication:Non-smoker Start:02-Jul-2021 Instruction Type:Patient Education Patient Instructions Indication:BMI 37.0-37.9, adult Start:26-Mar-2021 Instruction Type:Provider Instructions for Treatment How to Access Health Informa tion Online using Patient Portal and [employer] Indication:BMI 37.0-37.9, adult Start:26-Mar-2021 Instruction Type:Patient Education Patient Instructions Indication:Non-smoker Start:23-Feb-2021 Instruction Type:Provider Instructions for Treatment How to Access Health Informa tion Online using Patient Portal and [employer] Indication:Non-smoker Start:23-Feb-2021 Instruction Type:Patient Education Patient Instructions Indication:Non-smoker Start:21-Dec-2020 Instruction Type:Provider Instructions for Treatment How to Access Health Informa tion Online using Patient Portal and [employer] Indication:Non-smoker Start:21-Dec-2020 Instruction Type:Patient Education Patient Instructions Indication:BMI 34.0-34.9,adult Start:11-Dec-2020 Instruction Type:Provider Instructions for Treatment How to Access Health Informa tion Online using Patient Portal and [employer]rd [employer] Apps Indication:BMI 34.0-34.9,adult Start:11-Dec-2020 Instruction Type:Patient Education Patient Instructions Indication:Non-smoker Start:04-Dec-2020 Instruction Type:Provider Instructions for Treatment How to Access Health Informa tion Online using Patient Portal and [employer]rd [employer] Apps Indication:Non-smoker Start:04-Dec-2020 Instruction Type:Patient Education How to Access Health Informa tion Online using Patient Portal and [employer]rd [employer] Apps Indication:Non-smoker Start:20-Nov-2020 Instruction Type:Patient Education Patient Instructions Indication:Non-smoker Start:20-Nov-2020 Instruction Type:Provider Instructions for Treatment How to access health informa tion online Indication:Non-smoker Start:01-May-2020 Instruction Type:Patient Education How to access health informa tion online - Detail Indication:Non-smoker Start:01-May-2020 Instruction Type:Patient Education Patient Instructions Indication:Non-smoker Start:01-May-2020 Instruction Type:Provider Instructions for Treatment How to access health informa tion online Indication:Non-smoker Start:12-Feb-2020 Instruction Type:Patient Education How to access health informa tion online - Detail Indication:Non-smoker Start:12-Feb-2020 Instruction Type:Patient Education Patient Instructions Indication:Non-smoker Start:12-Feb-2020 Instruction Type:Provider Instructions for Treatment How to access health informa tion online Indication:Non-smoker Start:06-Jul-2018 Instruction Type:Patient Education How to access health informa tion online - Detail Indication:Non-smoker Start:06-Jul-2018 Instruction Type:Patient Education Patient Instructions Indication:Non-smoker Start:06-Jul-2018 Instruction Type:Provider Instructions for Treatment obesity counseling Indication:Unspecified osteoarthritis, unspecified site Start:16-May-2018 Instruction Type:Provider Instructions for Treatment How to access health informa tion online Indication:Non-smoker Start:16-May-2018 Instruction Type:Patient Education Patient Instructions Indication:Non-smoker Start:16-May-2018 Instruction Type:Provider Instructions for Treatment How to access health informa tion online Indication:Non-smoker Start:27-Apr-2018 Instruction Type:Patient Education How to access health informa tion online - Detail Indication:Non-smoker Start:27-Apr-2018 Instruction Type:Patient Education How to access health informa tion online Indication:Hypercholesteremia Start:21-Jan-2016 Instruction Type:Patient Education How to access health informa tion online - Detail Indication:Hypercholesteremia Start:21-Jan-2016 Instruction Type:Patient Education Patient Instructions Indication:Hypercholesteremia Start:21-Jan-2016 Instruction Type:Provider Instructions for Treatment How to access health informa tion online Indication:Arthritis, rheumatoid Start:02-Nov-2015 Instruction Type:Patient Education How to access health informa tion online - Detail Indication:Arthritis, rheumatoid Start:02-Nov-2015 Instruction Type:Patient Education Patient Instructions Indication:Arthritis, rheumatoid Start:02-Nov-2015 Instruction Type:Provider Instructions for Treatment Patient Instructions Indication:Muscle strain Start:03-May-2013 Instruction Type:Provider Instructions for Treatment Patient Instructions Indication:Sciatica Start:17-Jan-2013 Instruction Type:Provider Instructions for Treatment Patient Instructions Indication:Cough Start:19-Dec-2012 Instruction Type:Provider Instructions for Treatment Patient Instructions Indication:Sore throat Start:19-Dec-2012 Instruction Type:Provider Instructions for Treatment Patient Instructions Indication:Hypercholesteremia Start:15-Jun-2012 Instruction Type:Provider Instructions for Treatment [facility]; [facility] Work Phone: Instructions* Name Dates Details Patient Instructions Indication:Non-smoker Start:26-Jan-2022 Instruction Type:Provider Instructions for Treatment How to Access Health Informa tion Online using Patient Portal and [employer] Apps Indication:Non-smoker Start:26-Jan-2022 Instruction Type:Patient Education Patient Instructions Indication:Non-smoker Start:02-Jul-2021 Instruction Type:Provider Instructions for Treatment How to Access Health Informa tion Online using Patient Portal and [employer] Apps Indication:Non-smoker Start:02-Jul-2021 Instruction Type:Patient Education Patient Instructions Indication:BMI 37.0-37.9, adult Start:26-Mar-2021 Instruction Type:Provider Instructions for Treatment How to Access Health Informa tion Online using Patient Portal and [employer]rd [employer] Apps Indication:BMI 37.0-37.9, adult Start:26-Mar-2021 Instruction Type:Patient Education Patient Instructions Indication:Non-smoker Start:23-Feb-2021 Instruction Type:Provider Instructions for Treatment How to Access Health Informa tion Online using Patient Portal and [employer]rd [employer] Apps Indication:Non-smoker Start:23-Feb-2021 Instruction Type:Patient Education Patient Instructions Indication:Non-smoker Start:21-Dec-2020 Instruction Type:Provider Instructions for Treatment How to Access Health Informa tion Online using Patient Portal and [employer]rd [employer] Apps Indication:Non-smoker Start:21-Dec-2020 Instruction Type:Patient Education Patient Instructions Indication:BMI 34.0-34.9,adult Start:11-Dec-2020 Instruction Type:Provider Instructions for Treatment How to Access Health Informa tion Online using Patient Portal and [employer]rd [employer] Apps Indication:BMI 34.0-34.9,adult Start:11-Dec-2020 Instruction Type:Patient Education Patient Instructions Indication:Non-smoker Start:04-Dec-2020 Instruction Type:Provider Instructions for Treatment How to Access Health Informa tion Online using Patient Portal and [employer]rd [employer] Apps Indication:Non-smoker Start:04-Dec-2020 Instruction Type:Patient Education How to Access Health Informa tion Online using Patient Portal and [employer]rd [employer] Apps Indication:Non-smoker Start:20-Nov-2020 Instruction Type:Patient Education Patient Instructions Indication:Non-smoker Start:20-Nov-2020 Instruction Type:Provider Instructions for Treatment How to access health informa tion online Indication:Non-smoker Start:01-May-2020 Instruction Type:Patient Education How to access health informa tion online - Detail Indication:Non-smoker Start:01-May-2020 Instruction Type:Patient Education Patient Instructions Indication:Non-smoker Start:01-May-2020 Instruction Type:Provider Instructions for Treatment How to access health informa tion online Indication:Non-smoker Start:12-Feb-2020 Instruction Type:Patient Education How to access health informa tion online - Detail Indication:Non-smoker Start:12-Feb-2020 Instruction Type:Patient Education Patient Instructions Indication:Non-smoker Start:12-Feb-2020 Instruction Type:Provider Instructions for Treatment How to access health informa tion online Indication:Non-smoker Start:06-Jul-2018 Instruction Type:Patient Education How to access health informa tion online - Detail Indication:Non-smoker Start:06-Jul-2018 Instruction Type:Patient Education Patient Instructions Indication:Non-smoker Start:06-Jul-2018 Instruction Type:Provider Instructions for Treatment obesity counseling Indication:Unspecified osteoarthritis, unspecified site Start:16-May-2018 Instruction Type:Provider Instructions for Treatment How to access health informa tion online Indication:Non-smoker Start:16-May-2018 Instruction Type:Patient Education Patient Instructions Indication:Non-smoker Start:16-May-2018 Instruction Type:Provider Instructions for Treatment How to access health informa tion online Indication:Non-smoker Start:27-Apr-2018 Instruction Type:Patient Education How to access health informa tion online - Detail Indication:Non-smoker Start:27-Apr-2018 Instruction Type:Patient Education How to access health informa tion online Indication:Hypercholesteremia Start:21-Jan-2016 Instruction Type:Patient Education How to access health informa tion online - Detail Indication:Hypercholesteremia Start:21-Jan-2016 Instruction Type:Patient Education Patient Instructions Indication:Hypercholesteremia Start:21-Jan-2016 Instruction Type:Provider Instructions for Treatment How to access health informa tion online Indication:Arthritis, rheumatoid Start:02-Nov-2015 Instruction Type:Patient Education How to access health informa tion online - Detail Indication:Arthritis, rheumatoid Start:02-Nov-2015 Instruction Type:Patient Education Patient Instructions Indication:Arthritis, rheumatoid Start:02-Nov-2015 Instruction Type:Provider Instructions for Treatment Patient Instructions Indication:Muscle strain Start:03-May-2013 Instruction Type:Provider Instructions for Treatment Patient Instructions Indication:Sciatica Start:17-Jan-2013 Instruction Type:Provider Instructions for Treatment Patient Instructions Indication:Cough Start:19-Dec-2012 Instruction Type:Provider Instructions for Treatment Patient Instructions Indication:Sore throat Start:19-Dec-2012 Instruction Type:Provider Instructions for Treatment Patient Instructions Indication:Hypercholesteremia Start:15-Jun-2012 Instruction Type:Provider Instructions for Treatment [facility]; [facility] Work Phone: Instructions* Name Dates Details Patient Instructions Indication:Non-smoker Start:26-Jan-2022 Instruction Type:Provider Instructions for Treatment How to Access Health Informa tion Online using Patient Portal and [employer]rd [employer] Apps Indication:Non-smoker Start:26-Jan-2022 Instruction Type:Patient Education Patient Instructions Indication:Non-smoker Start:02-Jul-2021 Instruction Type:Provider Instructions for Treatment How to Access Health Informa tion Online using Patient Portal and [employer] Apps Indication:Non-smoker Start:02-Jul-2021 Instruction Type:Patient Education Patient Instructions Indication:BMI 37.0-37.9, adult Start:26-Mar-2021 Instruction Type:Provider Instructions for Treatment How to Access Health Informa tion Online using Patient Portal and [employer] Apps Indication:BMI 37.0-37.9, adult Start:26-Mar-2021 Instruction Type:Patient Education Patient Instructions Indication:Non-smoker Start:23-Feb-2021 Instruction Type:Provider Instructions for Treatment How to Access Health Informa tion Online using Patient Portal and [employer] Apps Indication:Non-smoker Start:23-Feb-2021 Instruction Type:Patient Education Patient Instructions Indication:Non-smoker Start:21-Dec-2020 Instruction Type:Provider Instructions for Treatment How to Access Health Informa tion Online using Patient Portal and [employer] Apps Indication:Non-smoker Start:21-Dec-2020 Instruction Type:Patient Education Patient Instructions Indication:BMI 34.0-34.9,adult Start:11-Dec-2020 Instruction Type:Provider Instructions for Treatment How to Access Health Informa tion Online using Patient Portal and [employer] Apps Indication:BMI 34.0-34.9,adult Start:11-Dec-2020 Instruction Type:Patient Education Patient Instructions Indication:Non-smoker Start:04-Dec-2020 Instruction Type:Provider Instructions for Treatment How to Access Health Informa tion Online using Patient Portal and [employer] Apps Indication:Non-smoker Start:04-Dec-2020 Instruction Type:Patient Education How to Access Health Informa tion Online using Patient Portal and [employer] Apps Indication:Non-smoker Start:20-Nov-2020 Instruction Type:Patient Education Patient Instructions Indication:Non-smoker Start:20-Nov-2020 Instruction Type:Provider Instructions for Treatment How to access health informa tion online Indication:Non-smoker Start:01-May-2020 Instruction Type:Patient Education How to access health informa tion online - Detail Indication:Non-smoker Start:01-May-2020 Instruction Type:Patient Education Patient Instructions Indication:Non-smoker Start:01-May-2020 Instruction Type:Provider Instructions for Treatment How to access health informa tion online Indication:Non-smoker Start:12-Feb-2020 Instruction Type:Patient Education How to access health informa tion online - Detail Indication:Non-smoker Start:12-Feb-2020 Instruction Type:Patient Education Patient Instructions Indication:Non-smoker Start:12-Feb-2020 Instruction Type:Provider Instructions for Treatment How to access health informa tion online Indication:Non-smoker Start:06-Jul-2018 Instruction Type:Patient Education How to access health informa tion online - Detail Indication:Non-smoker Start:06-Jul-2018 Instruction Type:Patient Education Patient Instructions Indication:Non-smoker Start:06-Jul-2018 Instruction Type:Provider Instructions for Treatment obesity counseling Indication:Unspecified osteoarthritis, unspecified site Start:16-May-2018 Instruction Type:Provider Instructions for Treatment How to access health informa tion online Indication:Non-smoker Start:16-May-2018 Instruction Type:Patient Education Patient Instructions Indication:Non-smoker Start:16-May-2018 Instruction Type:Provider Instructions for Treatment How to access health informa tion online Indication:Non-smoker Start:27-Apr-2018 Instruction Type:Patient Education How to access health informa tion online - Detail Indication:Non-smoker Start:27-Apr-2018 Instruction Type:Patient Education How to access health informa tion online Indication:Hypercholesteremia Start:21-Jan-2016 Instruction Type:Patient Education How to access health informa tion online - Detail Indication:Hypercholesteremia Start:21-Jan-2016 Instruction Type:Patient Education Patient Instructions Indication:Hypercholesteremia Start:21-Jan-2016 Instruction Type:Provider Instructions for Treatment How to access health informa tion online Indication:Arthritis, rheumatoid Start:02-Nov-2015 Instruction Type:Patient Education How to access health informa tion online - Detail Indication:Arthritis, rheumatoid Start:02-Nov-2015 Instruction Type:Patient Education Patient Instructions Indication:Arthritis, rheumatoid Start:02-Nov-2015 Instruction Type:Provider Instructions for Treatment Patient Instructions Indication:Muscle strain Start:03-May-2013 Instruction Type:Provider Instructions for Treatment Patient Instructions Indication:Sciatica Start:17-Jan-2013 Instruction Type:Provider Instructions for Treatment Patient Instructions Indication:Cough Start:19-Dec-2012 Instruction Type:Provider Instructions for Treatment Patient Instructions Indication:Sore throat Start:19-Dec-2012 Instruction Type:Provider Instructions for Treatment Patient Instructions Indication:Hypercholesteremia Start:15-Jun-2012 Instruction Type:Provider Instructions for Treatment [facility]; [facility] Work Phone: Instructions* Name Dates Details Patient Instructions Indication:Non-smoker Start:26-Jan-2022 Instruction Type:Provider Instructions for Treatment How to Access Health Informa tion Online using Patient Portal and [employer] Apps Indication:Non-smoker Start:26-Jan-2022 Instruction Type:Patient Education Patient Instructions Indication:Non-smoker Start:02-Jul-2021 Instruction Type:Provider Instructions for Treatment How to Access Health Informa tion Online using Patient Portal and [employer] Apps Indication:Non-smoker Start:02-Jul-2021 Instruction Type:Patient Education Patient Instructions Indication:BMI 37.0-37.9, adult Start:26-Mar-2021 Instruction Type:Provider Instructions for Treatment How to Access Health Informa tion Online using Patient Portal and [employer] Apps Indication:BMI 37.0-37.9, adult Start:26-Mar-2021 Instruction Type:Patient Education Patient Instructions Indication:Non-smoker Start:23-Feb-2021 Instruction Type:Provider Instructions for Treatment How to Access Health Informa tion Online using Patient Portal and [employer] Apps Indication:Non-smoker Start:23-Feb-2021 Instruction Type:Patient Education Patient Instructions Indication:Non-smoker Start:21-Dec-2020 Instruction Type:Provider Instructions for Treatment How to Access Health Informa tion Online using Patient Portal and [employer] Apps Indication:Non-smoker Start:21-Dec-2020 Instruction Type:Patient Education Patient Instructions Indication:BMI 34.0-34.9,adult Start:11-Dec-2020 Instruction Type:Provider Instructions for Treatment How to Access Health Informa tion Online using Patient Portal and [employer] Apps Indication:BMI 34.0-34.9,adult Start:11-Dec-2020 Instruction Type:Patient Education Patient Instructions Indication:Non-smoker Start:04-Dec-2020 Instruction Type:Provider Instructions for Treatment How to Access Health Informa tion Online using Patient Portal and [employer] Apps Indication:Non-smoker Start:04-Dec-2020 Instruction Type:Patient Education How to Access Health Informa tion Online using Patient Portal and [employer] Apps Indication:Non-smoker Start:20-Nov-2020 Instruction Type:Patient Education Patient Instructions Indication:Non-smoker Start:20-Nov-2020 Instruction Type:Provider Instructions for Treatment How to access health informa tion online Indication:Non-smoker Start:01-May-2020 Instruction Type:Patient Education How to access health informa tion online - Detail Indication:Non-smoker Start:01-May-2020 Instruction Type:Patient Education Patient Instructions Indication:Non-smoker Start:01-May-2020 Instruction Type:Provider Instructions for Treatment How to access health informa tion online Indication:Non-smoker Start:12-Feb-2020 Instruction Type:Patient Education How to access health informa tion online - Detail Indication:Non-smoker Start:12-Feb-2020 Instruction Type:Patient Education Patient Instructions Indication:Non-smoker Start:12-Feb-2020 Instruction Type:Provider Instructions for Treatment How to access health informa tion online Indication:Non-smoker Start:06-Jul-2018 Instruction Type:Patient Education How to access health informa tion online - Detail Indication:Non-smoker Start:06-Jul-2018 Instruction Type:Patient Education Patient Instructions Indication:Non-smoker Start:06-Jul-2018 Instruction Type:Provider Instructions for Treatment obesity counseling Indication:Unspecified osteoarthritis, unspecified site Start:16-May-2018 Instruction Type:Provider Instructions for Treatment How to access health informa tion online Indication:Non-smoker Start:16-May-2018 Instruction Type:Patient Education Patient Instructions Indication:Non-smoker Start:16-May-2018 Instruction Type:Provider Instructions for Treatment How to access health informa tion online Indication:Non-smoker Start:27-Apr-2018 Instruction Type:Patient Education How to access health informa tion online - Detail Indication:Non-smoker Start:27-Apr-2018 Instruction Type:Patient Education How to access health informa tion online Indication:Hypercholesteremia Start:21-Jan-2016 Instruction Type:Patient Education How to access health informa tion online - Detail Indication:Hypercholesteremia Start:21-Jan-2016 Instruction Type:Patient Education Patient Instructions Indication:Hypercholesteremia Start:21-Jan-2016 Instruction Type:Provider Instructions for Treatment How to access health informa tion online Indication:Arthritis, rheumatoid Start:02-Nov-2015 Instruction Type:Patient Education How to access health informa tion online - Detail Indication:Arthritis, rheumatoid Start:02-Nov-2015 Instruction Type:Patient Education Patient Instructions Indication:Arthritis, rheumatoid Start:02-Nov-2015 Instruction Type:Provider Instructions for Treatment Patient Instructions Indication:Muscle strain Start:03-May-2013 Instruction Type:Provider Instructions for Treatment Patient Instructions Indication:Sciatica Start:17-Jan-2013 Instruction Type:Provider Instructions for Treatment Patient Instructions Indication:Cough Start:19-Dec-2012 Instruction Type:Provider Instructions for Treatment Patient Instructions Indication:Sore throat Start:19-Dec-2012 Instruction Type:Provider Instructions for Treatment Patient Instructions Indication:Hypercholesteremia Start:15-Jun-2012 Instruction Type:Provider Instructions for Treatment [facility]; [facility] Work Phone: Instructions* Name Dates Details Patient Instructions Indication:Non-smoker Start:26-Jan-2022 Instruction Type:Provider Instructions for Treatment How to Access Health Informa tion Online using Patient Portal and [employer] Indication:Non-smoker Start:26-Jan-2022 Instruction Type:Patient Education Patient Instructions Indication:Non-smoker Start:02-Jul-2021 Instruction Type:Provider Instructions for Treatment How to Access Health Informa tion Online using Patient Portal and [employer] Indication:Non-smoker Start:02-Jul-2021 Instruction Type:Patient Education Patient Instructions Indication:BMI 37.0-37.9, adult Start:26-Mar-2021 Instruction Type:Provider Instructions for Treatment How to Access Health Informa tion Online using Patient Portal and [employer] Apps Indication:BMI 37.0-37.9, adult Start:26-Mar-2021 Instruction Type:Patient Education Patient Instructions Indication:Non-smoker Start:23-Feb-2021 Instruction Type:Provider Instructions for Treatment How to Access Health Informa tion Online using Patient Portal and [employer] Apps Indication:Non-smoker Start:23-Feb-2021 Instruction Type:Patient Education Patient Instructions Indication:Non-smoker Start:21-Dec-2020 Instruction Type:Provider Instructions for Treatment How to Access Health Informa tion Online using Patient Portal and [employer] Apps Indication:Non-smoker Start:21-Dec-2020 Instruction Type:Patient Education Patient Instructions Indication:BMI 34.0-34.9,adult Start:11-Dec-2020 Instruction Type:Provider Instructions for Treatment How to Access Health Informa tion Online using Patient Portal and [employer] Indication:BMI 34.0-34.9,adult Start:11-Dec-2020 Instruction Type:Patient Education Patient Instructions Indication:Non-smoker Start:04-Dec-2020 Instruction Type:Provider Instructions for Treatment How to Access Health Informa tion Online using Patient Portal and [employer] Indication:Non-smoker Start:04-Dec-2020 Instruction Type:Patient Education How to Access Health Informa tion Online using Patient Portal and [employer] Indication:Non-smoker Start:20-Nov-2020 Instruction Type:Patient Education Patient Instructions Indication:Non-smoker Start:20-Nov-2020 Instruction Type:Provider Instructions for Treatment How to access health informa tion online Indication:Non-smoker Start:01-May-2020 Instruction Type:Patient Education How to access health informa tion online - Detail Indication:Non-smoker Start:01-May-2020 Instruction Type:Patient Education Patient Instructions Indication:Non-smoker Start:01-May-2020 Instruction Type:Provider Instructions for Treatment How to access health informa tion online Indication:Non-smoker Start:12-Feb-2020 Instruction Type:Patient Education How to access health informa tion online - Detail Indication:Non-smoker Start:12-Feb-2020 Instruction Type:Patient Education Patient Instructions Indication:Non-smoker Start:12-Feb-2020 Instruction Type:Provider Instructions for Treatment How to access health informa tion online Indication:Non-smoker Start:06-Jul-2018 Instruction Type:Patient Education How to access health informa tion online - Detail Indication:Non-smoker Start:06-Jul-2018 Instruction Type:Patient Education Patient Instructions Indication:Non-smoker Start:06-Jul-2018 Instruction Type:Provider Instructions for Treatment obesity counseling Indication:Unspecified osteoarthritis, unspecified site Start:16-May-2018 Instruction Type:Provider Instructions for Treatment How to access health informa tion online Indication:Non-smoker Start:16-May-2018 Instruction Type:Patient Education Patient Instructions Indication:Non-smoker Start:16-May-2018 Instruction Type:Provider Instructions for Treatment How to access health informa tion online Indication:Non-smoker Start:27-Apr-2018 Instruction Type:Patient Education How to access health informa tion online - Detail Indication:Non-smoker Start:27-Apr-2018 Instruction Type:Patient Education How to access health informa tion online Indication:Hypercholesteremia Start:21-Jan-2016 Instruction Type:Patient Education How to access health informa tion online - Detail Indication:Hypercholesteremia Start:21-Jan-2016 Instruction Type:Patient Education Patient Instructions Indication:Hypercholesteremia Start:21-Jan-2016 Instruction Type:Provider Instructions for Treatment How to access health informa tion online Indication:Arthritis, rheumatoid Start:02-Nov-2015 Instruction Type:Patient Education How to access health informa tion online - Detail Indication:Arthritis, rheumatoid Start:02-Nov-2015 Instruction Type:Patient Education Patient Instructions Indication:Arthritis, rheumatoid Start:02-Nov-2015 Instruction Type:Provider Instructions for Treatment Patient Instructions Indication:Muscle strain Start:03-May-2013 Instruction Type:Provider Instructions for Treatment Patient Instructions Indication:Sciatica Start:17-Jan-2013 Instruction Type:Provider Instructions for Treatment Patient Instructions Indication:Cough Start:19-Dec-2012 Instruction Type:Provider Instructions for Treatment Patient Instructions Indication:Sore throat Start:19-Dec-2012 Instruction Type:Provider Instructions for Treatment Patient Instructions Indication:Hypercholesteremia Start:15-Jun-2012 Instruction Type:Provider Instructions for Treatment [facility]; [facility] Work Phone: Instructions* Name Dates Details Patient Instructions Indication:Non-smoker Start:26-Jan-2022 Instruction Type:Provider Instructions for Treatment How to Access Health Informa tion Online using Patient Portal and [employer] Apps Indication:Non-smoker Start:26-Jan-2022 Instruction Type:Patient Education Patient Instructions Indication:Non-smoker Start:02-Jul-2021 Instruction Type:Provider Instructions for Treatment How to Access Health Informa tion Online using Patient Portal and [employer] Apps Indication:Non-smoker Start:02-Jul-2021 Instruction Type:Patient Education Patient Instructions Indication:BMI 37.0-37.9, adult Start:26-Mar-2021 Instruction Type:Provider Instructions for Treatment How to Access Health Informa tion Online using Patient Portal and [employer] Apps Indication:BMI 37.0-37.9, adult Start:26-Mar-2021 Instruction Type:Patient Education Patient Instructions Indication:Non-smoker Start:23-Feb-2021 Instruction Type:Provider Instructions for Treatment How to Access Health Informa tion Online using Patient Portal and [employer] Apps Indication:Non-smoker Start:23-Feb-2021 Instruction Type:Patient Education Patient Instructions Indication:Non-smoker Start:21-Dec-2020 Instruction Type:Provider Instructions for Treatment How to Access Health Informa tion Online using Patient Portal and [employer] Apps Indication:Non-smoker Start:21-Dec-2020 Instruction Type:Patient Education Patient Instructions Indication:BMI 34.0-34.9,adult Start:11-Dec-2020 Instruction Type:Provider Instructions for Treatment How to Access Health Informa tion Online using Patient Portal and [employer] Apps Indication:BMI 34.0-34.9,adult Start:11-Dec-2020 Instruction Type:Patient Education Patient Instructions Indication:Non-smoker Start:04-Dec-2020 Instruction Type:Provider Instructions for Treatment How to Access Health Informa tion Online using Patient Portal and [employer] Indication:Non-smoker Start:04-Dec-2020 Instruction Type:Patient Education How to Access Health Informa tion Online using Patient Portal and [employer] Apps Indication:Non-smoker Start:20-Nov-2020 Instruction Type:Patient Education Patient Instructions Indication:Non-smoker Start:20-Nov-2020 Instruction Type:Provider Instructions for Treatment How to access health informa tion online Indication:Non-smoker Start:01-May-2020 Instruction Type:Patient Education How to access health informa tion online - Detail Indication:Non-smoker Start:01-May-2020 Instruction Type:Patient Education Patient Instructions Indication:Non-smoker Start:01-May-2020 Instruction Type:Provider Instructions for Treatment How to access health informa tion online Indication:Non-smoker Start:12-Feb-2020 Instruction Type:Patient Education How to access health informa tion online - Detail Indication:Non-smoker Start:12-Feb-2020 Instruction Type:Patient Education Patient Instructions Indication:Non-smoker Start:12-Feb-2020 Instruction Type:Provider Instructions for Treatment How to access health informa tion online Indication:Non-smoker Start:06-Jul-2018 Instruction Type:Patient Education How to access health informa tion online - Detail Indication:Non-smoker Start:06-Jul-2018 Instruction Type:Patient Education Patient Instructions Indication:Non-smoker Start:06-Jul-2018 Instruction Type:Provider Instructions for Treatment obesity counseling Indication:Unspecified osteoarthritis, unspecified site Start:16-May-2018 Instruction Type:Provider Instructions for Treatment How to access health informa tion online Indication:Non-smoker Start:16-May-2018 Instruction Type:Patient Education Patient Instructions Indication:Non-smoker Start:16-May-2018 Instruction Type:Provider Instructions for Treatment How to access health informa tion online Indication:Non-smoker Start:27-Apr-2018 Instruction Type:Patient Education How to access health informa tion online - Detail Indication:Non-smoker Start:27-Apr-2018 Instruction Type:Patient Education How to access health informa tion online Indication:Hypercholesteremia Start:21-Jan-2016 Instruction Type:Patient Education How to access health informa tion online - Detail Indication:Hypercholesteremia Start:21-Jan-2016 Instruction Type:Patient Education Patient Instructions Indication:Hypercholesteremia Start:21-Jan-2016 Instruction Type:Provider Instructions for Treatment How to access health informa tion online Indication:Arthritis, rheumatoid Start:02-Nov-2015 Instruction Type:Patient Education How to access health informa tion online - Detail Indication:Arthritis, rheumatoid Start:02-Nov-2015 Instruction Type:Patient Education Patient Instructions Indication:Arthritis, rheumatoid Start:02-Nov-2015 Instruction Type:Provider Instructions for Treatment Patient Instructions Indication:Muscle strain Start:03-May-2013 Instruction Type:Provider Instructions for Treatment Patient Instructions Indication:Sciatica Start:17-Jan-2013 Instruction Type:Provider Instructions for Treatment Patient Instructions Indication:Cough Start:19-Dec-2012 Instruction Type:Provider Instructions for Treatment Patient Instructions Indication:Sore throat Start:19-Dec-2012 Instruction Type:Provider Instructions for Treatment Patient Instructions Indication:Hypercholesteremia Start:15-Jun-2012 Instruction Type:Provider Instructions for Treatment [facility]; [facility] Work Phone: Instructions* Name Dates Details Patient Instructions Indication:Non-smoker Start:26-Jan-2022 Instruction Type:Provider Instructions for Treatment How to Access Health Informa tion Online using Patient Portal and [employer] Apps Indication:Non-smoker Start:26-Jan-2022 Instruction Type:Patient Education Patient Instructions Indication:Non-smoker Start:02-Jul-2021 Instruction Type:Provider Instructions for Treatment How to Access Health Informa tion Online using Patient Portal and [employer] Indication:Non-smoker Start:02-Jul-2021 Instruction Type:Patient Education Patient Instructions Indication:BMI 37.0-37.9, adult Start:26-Mar-2021 Instruction Type:Provider Instructions for Treatment How to Access Health Informa tion Online using Patient Portal and [employer] Indication:BMI 37.0-37.9, adult Start:26-Mar-2021 Instruction Type:Patient Education Patient Instructions Indication:Non-smoker Start:23-Feb-2021 Instruction Type:Provider Instructions for Treatment How to Access Health Informa tion Online using Patient Portal and [employer] Apps Indication:Non-smoker Start:23-Feb-2021 Instruction Type:Patient Education Patient Instructions Indication:Non-smoker Start:21-Dec-2020 Instruction Type:Provider Instructions for Treatment How to Access Health Informa tion Online using Patient Portal and [employer] Apps Indication:Non-smoker Start:21-Dec-2020 Instruction Type:Patient Education Patient Instructions Indication:BMI 34.0-34.9,adult Start:11-Dec-2020 Instruction Type:Provider Instructions for Treatment How to Access Health Informa tion Online using Patient Portal and [employer] Indication:BMI 34.0-34.9,adult Start:11-Dec-2020 Instruction Type:Patient Education Patient Instructions Indication:Non-smoker Start:04-Dec-2020 Instruction Type:Provider Instructions for Treatment How to Access Health Informa tion Online using Patient Portal and [employer] Indication:Non-smoker Start:04-Dec-2020 Instruction Type:Patient Education How to Access Health Informa tion Online using Patient Portal and [employer] Indication:Non-smoker Start:20-Nov-2020 Instruction Type:Patient Education Patient Instructions Indication:Non-smoker Start:20-Nov-2020 Instruction Type:Provider Instructions for Treatment How to access health informa tion online Indication:Non-smoker Start:01-May-2020 Instruction Type:Patient Education How to access health informa tion online - Detail Indication:Non-smoker Start:01-May-2020 Instruction Type:Patient Education Patient Instructions Indication:Non-smoker Start:01-May-2020 Instruction Type:Provider Instructions for Treatment How to access health informa tion online Indication:Non-smoker Start:12-Feb-2020 Instruction Type:Patient Education How to access health informa tion online - Detail Indication:Non-smoker Start:12-Feb-2020 Instruction Type:Patient Education Patient Instructions Indication:Non-smoker Start:12-Feb-2020 Instruction Type:Provider Instructions for Treatment How to access health informa tion online Indication:Non-smoker Start:06-Jul-2018 Instruction Type:Patient Education How to access health informa tion online - Detail Indication:Non-smoker Start:06-Jul-2018 Instruction Type:Patient Education Patient Instructions Indication:Non-smoker Start:06-Jul-2018 Instruction Type:Provider Instructions for Treatment obesity counseling Indication:Unspecified osteoarthritis, unspecified site Start:16-May-2018 Instruction Type:Provider Instructions for Treatment How to access health informa tion online Indication:Non-smoker Start:16-May-2018 Instruction Type:Patient Education Patient Instructions Indication:Non-smoker Start:16-May-2018 Instruction Type:Provider Instructions for Treatment How to access health informa tion online Indication:Non-smoker Start:27-Apr-2018 Instruction Type:Patient Education How to access health informa tion online - Detail Indication:Non-smoker Start:27-Apr-2018 Instruction Type:Patient Education How to access health informa tion online Indication:Hypercholesteremia Start:21-Jan-2016 Instruction Type:Patient Education How to access health informa tion online - Detail Indication:Hypercholesteremia Start:21-Jan-2016 Instruction Type:Patient Education Patient Instructions Indication:Hypercholesteremia Start:21-Jan-2016 Instruction Type:Provider Instructions for Treatment How to access health informa tion online Indication:Arthritis, rheumatoid Start:02-Nov-2015 Instruction Type:Patient Education How to access health informa tion online - Detail Indication:Arthritis, rheumatoid Start:02-Nov-2015 Instruction Type:Patient Education Patient Instructions Indication:Arthritis, rheumatoid Start:02-Nov-2015 Instruction Type:Provider Instructions for Treatment Patient Instructions Indication:Muscle strain Start:03-May-2013 Instruction Type:Provider Instructions for Treatment Patient Instructions Indication:Sciatica Start:17-Jan-2013 Instruction Type:Provider Instructions for Treatment Patient Instructions Indication:Cough Start:19-Dec-2012 Instruction Type:Provider Instructions for Treatment Patient Instructions Indication:Sore throat Start:19-Dec-2012 Instruction Type:Provider Instructions for Treatment Patient Instructions Indication:Hypercholesteremia Start:15-Jun-2012 Instruction Type:Provider Instructions for Treatment [facility]; [facility] Work Phone: Instructions* Name Dates Details Patient Instructions Indication:Non-smoker Start:26-Jan-2022 Instruction Type:Provider Instructions for Treatment How to Access Health Informa tion Online using Patient Portal and [employer] Indication:Non-smoker Start:26-Jan-2022 Instruction Type:Patient Education Patient Instructions Indication:Non-smoker Start:02-Jul-2021 Instruction Type:Provider Instructions for Treatment How to Access Health Informa tion Online using Patient Portal and [employer] Indication:Non-smoker Start:02-Jul-2021 Instruction Type:Patient Education Patient Instructions Indication:BMI 37.0-37.9, adult Start:26-Mar-2021 Instruction Type:Provider Instructions for Treatment How to Access Health Informa tion Online using Patient Portal and [employer] Indication:BMI 37.0-37.9, adult Start:26-Mar-2021 Instruction Type:Patient Education Patient Instructions Indication:Non-smoker Start:23-Feb-2021 Instruction Type:Provider Instructions for Treatment How to Access Health Informa tion Online using Patient Portal and [employer] Indication:Non-smoker Start:23-Feb-2021 Instruction Type:Patient Education Patient Instructions Indication:Non-smoker Start:21-Dec-2020 Instruction Type:Provider Instructions for Treatment How to Access Health Informa tion Online using Patient Portal and [employer] Indication:Non-smoker Start:21-Dec-2020 Instruction Type:Patient Education Patient Instructions Indication:BMI 34.0-34.9,adult Start:11-Dec-2020 Instruction Type:Provider Instructions for Treatment How to Access Health Informa tion Online using Patient Portal and [employer] Indication:BMI 34.0-34.9,adult Start:11-Dec-2020 Instruction Type:Patient Education Patient Instructions Indication:Non-smoker Start:04-Dec-2020 Instruction Type:Provider Instructions for Treatment How to Access Health Informa tion Online using Patient Portal and [employer] Indication:Non-smoker Start:04-Dec-2020 Instruction Type:Patient Education How to Access Health Informa tion Online using Patient Portal and [employer] Indication:Non-smoker Start:20-Nov-2020 Instruction Type:Patient Education Patient Instructions Indication:Non-smoker Start:20-Nov-2020 Instruction Type:Provider Instructions for Treatment How to access health informa tion online Indication:Non-smoker Start:01-May-2020 Instruction Type:Patient Education How to access health informa tion online - Detail Indication:Non-smoker Start:01-May-2020 Instruction Type:Patient Education Patient Instructions Indication:Non-smoker Start:01-May-2020 Instruction Type:Provider Instructions for Treatment How to access health informa tion online Indication:Non-smoker Start:12-Feb-2020 Instruction Type:Patient Education How to access health informa tion online - Detail Indication:Non-smoker Start:12-Feb-2020 Instruction Type:Patient Education Patient Instructions Indication:Non-smoker Start:12-Feb-2020 Instruction Type:Provider Instructions for Treatment How to access health informa tion online Indication:Non-smoker Start:06-Jul-2018 Instruction Type:Patient Education How to access health informa tion online - Detail Indication:Non-smoker Start:06-Jul-2018 Instruction Type:Patient Education Patient Instructions Indication:Non-smoker Start:06-Jul-2018 Instruction Type:Provider Instructions for Treatment obesity counseling Indication:Unspecified osteoarthritis, unspecified site Start:16-May-2018 Instruction Type:Provider Instructions for Treatment How to access health informa tion online Indication:Non-smoker Start:16-May-2018 Instruction Type:Patient Education Patient Instructions Indication:Non-smoker Start:16-May-2018 Instruction Type:Provider Instructions for Treatment How to access health informa tion online Indication:Non-smoker Start:27-Apr-2018 Instruction Type:Patient Education How to access health informa tion online - Detail Indication:Non-smoker Start:27-Apr-2018 Instruction Type:Patient Education How to access health informa tion online Indication:Hypercholesteremia Start:21-Jan-2016 Instruction Type:Patient Education How to access health informa tion online - Detail Indication:Hypercholesteremia Start:21-Jan-2016 Instruction Type:Patient Education Patient Instructions Indication:Hypercholesteremia Start:21-Jan-2016 Instruction Type:Provider Instructions for Treatment How to access health informa tion online Indication:Arthritis, rheumatoid Start:02-Nov-2015 Instruction Type:Patient Education How to access health informa tion online - Detail Indication:Arthritis, rheumatoid Start:02-Nov-2015 Instruction Type:Patient Education Patient Instructions Indication:Arthritis, rheumatoid Start:02-Nov-2015 Instruction Type:Provider Instructions for Treatment Patient Instructions Indication:Muscle strain Start:03-May-2013 Instruction Type:Provider Instructions for Treatment Patient Instructions Indication:Sciatica Start:17-Jan-2013 Instruction Type:Provider Instructions for Treatment Patient Instructions Indication:Cough Start:19-Dec-2012 Instruction Type:Provider Instructions for Treatment Patient Instructions Indication:Sore throat Start:19-Dec-2012 Instruction Type:Provider Instructions for Treatment Patient Instructions Indication:Hypercholesteremia Start:15-Jun-2012 Instruction Type:Provider Instructions for Treatment [facility]; [facility] Work Phone: Instructions* Name Dates Details Patient Instructions Indication:Non-smoker Start:26-Jan-2022 Instruction Type:Provider Instructions for Treatment How to Access Health Informa tion Online using Patient Portal and [employer] Indication:Non-smoker Start:26-Jan-2022 Instruction Type:Patient Education Patient Instructions Indication:Non-smoker Start:02-Jul-2021 Instruction Type:Provider Instructions for Treatment How to Access Health Informa tion Online using Patient Portal and [employer] Indication:Non-smoker Start:02-Jul-2021 Instruction Type:Patient Education Patient Instructions Indication:BMI 37.0-37.9, adult Start:26-Mar-2021 Instruction Type:Provider Instructions for Treatment How to Access Health Informa tion Online using Patient Portal and [employer] Indication:BMI 37.0-37.9, adult Start:26-Mar-2021 Instruction Type:Patient Education Patient Instructions Indication:Non-smoker Start:23-Feb-2021 Instruction Type:Provider Instructions for Treatment How to Access Health Informa tion Online using Patient Portal and [employer] Indication:Non-smoker Start:23-Feb-2021 Instruction Type:Patient Education Patient Instructions Indication:Non-smoker Start:21-Dec-2020 Instruction Type:Provider Instructions for Treatment How to Access Health Informa tion Online using Patient Portal and [employer] Indication:Non-smoker Start:21-Dec-2020 Instruction Type:Patient Education Patient Instructions Indication:BMI 34.0-34.9,adult Start:11-Dec-2020 Instruction Type:Provider Instructions for Treatment How to Access Health Informa tion Online using Patient Portal and [employer] Indication:BMI 34.0-34.9,adult Start:11-Dec-2020 Instruction Type:Patient Education Patient Instructions Indication:Non-smoker Start:04-Dec-2020 Instruction Type:Provider Instructions for Treatment How to Access Health Informa tion Online using Patient Portal and [employer] Indication:Non-smoker Start:04-Dec-2020 Instruction Type:Patient Education How to Access Health Informa tion Online using Patient Portal and [employer] Indication:Non-smoker Start:20-Nov-2020 Instruction Type:Patient Education Patient Instructions Indication:Non-smoker Start:20-Nov-2020 Instruction Type:Provider Instructions for Treatment How to access health informa tion online Indication:Non-smoker Start:01-May-2020 Instruction Type:Patient Education How to access health informa tion online - Detail Indication:Non-smoker Start:01-May-2020 Instruction Type:Patient Education Patient Instructions Indication:Non-smoker Start:01-May-2020 Instruction Type:Provider Instructions for Treatment How to access health informa tion online Indication:Non-smoker Start:12-Feb-2020 Instruction Type:Patient Education How to access health informa tion online - Detail Indication:Non-smoker Start:12-Feb-2020 Instruction Type:Patient Education Patient Instructions Indication:Non-smoker Start:12-Feb-2020 Instruction Type:Provider Instructions for Treatment How to access health informa tion online Indication:Non-smoker Start:06-Jul-2018 Instruction Type:Patient Education How to access health informa tion online - Detail Indication:Non-smoker Start:06-Jul-2018 Instruction Type:Patient Education Patient Instructions Indication:Non-smoker Start:06-Jul-2018 Instruction Type:Provider Instructions for Treatment obesity counseling Indication:Unspecified osteoarthritis, unspecified site Start:16-May-2018 Instruction Type:Provider Instructions for Treatment How to access health informa tion online Indication:Non-smoker Start:16-May-2018 Instruction Type:Patient Education Patient Instructions Indication:Non-smoker Start:16-May-2018 Instruction Type:Provider Instructions for Treatment How to access health informa tion online Indication:Non-smoker Start:27-Apr-2018 Instruction Type:Patient Education How to access health informa tion online - Detail Indication:Non-smoker Start:27-Apr-2018 Instruction Type:Patient Education How to access health informa tion online Indication:Hypercholesteremia Start:21-Jan-2016 Instruction Type:Patient Education How to access health informa tion online - Detail Indication:Hypercholesteremia Start:21-Jan-2016 Instruction Type:Patient Education Patient Instructions Indication:Hypercholesteremia Start:21-Jan-2016 Instruction Type:Provider Instructions for Treatment How to access health informa tion online Indication:Arthritis, rheumatoid Start:02-Nov-2015 Instruction Type:Patient Education How to access health informa tion online - Detail Indication:Arthritis, rheumatoid Start:02-Nov-2015 Instruction Type:Patient Education Patient Instructions Indication:Arthritis, rheumatoid Start:02-Nov-2015 Instruction Type:Provider Instructions for Treatment Patient Instructions Indication:Muscle strain Start:03-May-2013 Instruction Type:Provider Instructions for Treatment Patient Instructions Indication:Sciatica Start:17-Jan-2013 Instruction Type:Provider Instructions for Treatment Patient Instructions Indication:Cough Start:19-Dec-2012 Instruction Type:Provider Instructions for Treatment Patient Instructions Indication:Sore throat Start:19-Dec-2012 Instruction Type:Provider Instructions for Treatment Patient Instructions Indication:Hypercholesteremia Start:15-Jun-2012 Instruction Type:Provider Instructions for Treatment [facility]; [facility] Work Phone: Instructions* Name Dates Details Patient Instructions Indication:Non-smoker Start:26-Jan-2022 Instruction Type:Provider Instructions for Treatment How to Access Health Informa tion Online using Patient Portal and [employer] Apps Indication:Non-smoker Start:26-Jan-2022 Instruction Type:Patient Education Patient Instructions Indication:Non-smoker Start:02-Jul-2021 Instruction Type:Provider Instructions for Treatment How to Access Health Informa tion Online using Patient Portal and [employer] Apps Indication:Non-smoker Start:02-Jul-2021 Instruction Type:Patient Education Patient Instructions Indication:BMI 37.0-37.9, adult Start:26-Mar-2021 Instruction Type:Provider Instructions for Treatment How to Access Health Informa tion Online using Patient Portal and [employer] Apps Indication:BMI 37.0-37.9, adult Start:26-Mar-2021 Instruction Type:Patient Education Patient Instructions Indication:Non-smoker Start:23-Feb-2021 Instruction Type:Provider Instructions for Treatment How to Access Health Informa tion Online using Patient Portal and [employer] Indication:Non-smoker Start:23-Feb-2021 Instruction Type:Patient Education Patient Instructions Indication:Non-smoker Start:21-Dec-2020 Instruction Type:Provider Instructions for Treatment How to Access Health Informa tion Online using Patient Portal and [employer] Indication:Non-smoker Start:21-Dec-2020 Instruction Type:Patient Education Patient Instructions Indication:BMI 34.0-34.9,adult Start:11-Dec-2020 Instruction Type:Provider Instructions for Treatment How to Access Health Informa tion Online using Patient Portal and [employer] Indication:BMI 34.0-34.9,adult Start:11-Dec-2020 Instruction Type:Patient Education Patient Instructions Indication:Non-smoker Start:04-Dec-2020 Instruction Type:Provider Instructions for Treatment How to Access Health Informa tion Online using Patient Portal and [employer] Indication:Non-smoker Start:04-Dec-2020 Instruction Type:Patient Education How to Access Health Informa tion Online using Patient Portal and [employer] Indication:Non-smoker Start:20-Nov-2020 Instruction Type:Patient Education Patient Instructions Indication:Non-smoker Start:20-Nov-2020 Instruction Type:Provider Instructions for Treatment How to access health informa tion online Indication:Non-smoker Start:01-May-2020 Instruction Type:Patient Education How to access health informa tion online - Detail Indication:Non-smoker Start:01-May-2020 Instruction Type:Patient Education Patient Instructions Indication:Non-smoker Start:01-May-2020 Instruction Type:Provider Instructions for Treatment How to access health informa tion online Indication:Non-smoker Start:12-Feb-2020 Instruction Type:Patient Education How to access health informa tion online - Detail Indication:Non-smoker Start:12-Feb-2020 Instruction Type:Patient Education Patient Instructions Indication:Non-smoker Start:12-Feb-2020 Instruction Type:Provider Instructions for Treatment How to access health informa tion online Indication:Non-smoker Start:06-Jul-2018 Instruction Type:Patient Education How to access health informa tion online - Detail Indication:Non-smoker Start:06-Jul-2018 Instruction Type:Patient Education Patient Instructions Indication:Non-smoker Start:06-Jul-2018 Instruction Type:Provider Instructions for Treatment obesity counseling Indication:Unspecified osteoarthritis, unspecified site Start:16-May-2018 Instruction Type:Provider Instructions for Treatment How to access health informa tion online Indication:Non-smoker Start:16-May-2018 Instruction Type:Patient Education Patient Instructions Indication:Non-smoker Start:16-May-2018 Instruction Type:Provider Instructions for Treatment How to access health informa tion online Indication:Non-smoker Start:27-Apr-2018 Instruction Type:Patient Education How to access health informa tion online - Detail Indication:Non-smoker Start:27-Apr-2018 Instruction Type:Patient Education How to access health informa tion online Indication:Hypercholesteremia Start:21-Jan-2016 Instruction Type:Patient Education How to access health informa tion online - Detail Indication:Hypercholesteremia Start:21-Jan-2016 Instruction Type:Patient Education Patient Instructions Indication:Hypercholesteremia Start:21-Jan-2016 Instruction Type:Provider Instructions for Treatment How to access health informa tion online Indication:Arthritis, rheumatoid Start:02-Nov-2015 Instruction Type:Patient Education How to access health informa tion online - Detail Indication:Arthritis, rheumatoid Start:02-Nov-2015 Instruction Type:Patient Education Patient Instructions Indication:Arthritis, rheumatoid Start:02-Nov-2015 Instruction Type:Provider Instructions for Treatment Patient Instructions Indication:Muscle strain Start:03-May-2013 Instruction Type:Provider Instructions for Treatment Patient Instructions Indication:Sciatica Start:17-Jan-2013 Instruction Type:Provider Instructions for Treatment Patient Instructions Indication:Cough Start:19-Dec-2012 Instruction Type:Provider Instructions for Treatment Patient Instructions Indication:Sore throat Start:19-Dec-2012 Instruction Type:Provider Instructions for Treatment Patient Instructions Indication:Hypercholesteremia Start:15-Jun-2012 Instruction Type:Provider Instructions for Treatment [facility] Work Phone: progress note Author Nerissa Valenzuela [facility] Note Date/Time March 10, 2025 11:34 am [facility] [id number] [id number] OFFICE VISIT Date of Service: 03/10/25 MR#: [id number] Acct: [id number] Patient: GUNJAN CONNELL Rep #: [id number] : 1955 Provider: TONY Taylor Age/Sex: 70/F Location: [email or web address] Status: Signed Intake Vital Signs 01/12/25 14:05 03/10/25 11:22 Height 4 ft 11 in BP 125/85 H Blood Pressure Location Lt brachial Position Sitting Respiration 16 Pulse 71 Pulse Source Monitor Temp 98.1 F Temp Source Oral Pulse Oximetry (%) 98 Intake Visit Reasons: L HIP PAIN FROM FALL Chief Complaint: left Hip pain Vaccine Key Customer Leader Required: No Accompanied by: Is patient in pain?: Yes Pain scale (1-10): 7 Allergies latex Adverse Reaction (Intermediate, Verified 03/10/25 11:15) Rash Medications ?Medication ?Instructions ?Recorded ?Confirmed ?Type folic acid 1 mg tablet 1 mg PO DAILYCM Supplement # 0 tabs 08/05/24 03/10/25 Rx acetaminophen 500 mg tablet 1,000 mg (2 x 500 mg) PO Q 8 #0 tabs 08/19/24 01/12/25 Rx doxepin 25 mg capsule 25 mg PO QHS 30 days #30 cap s 08/19/24 03/10/25 Rx methotrexate sodium 2.5 mg tablet 15 mg (6 x 2.5 mg) P O We@1000 #0 08/19/24 01/12/25 Rx tabs cholecalciferol (vitamin D3) 125 250 mcg PO DAILY 01/0203/10/25 History mcg (5,000 unit) capsule ibuprofen 200 mg tablet (Advil) 400 mg PO Q6H PRN pain 01/12/25 03/10/25 History tramadol 50 mg tablet 50 mg PO 4X/DAY PRN PRN pain 4 01/12/25 03/10/25 Rx days #15 tabs Have you fallen in the past year?: Yes Nurse's Note: 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 Pain mostly on back side about a 7 out of 10. [facility] Medical History Postoperative anemia Wears glasses Wears dentures Loss of hearing Marijuana use Walker as ambulation aid PONV (postoperative nausea and vomiting) Shortness of breath on exertion Non-smoker Leg cramps History of edema Cochlear implant in place Tonsillectomy planned Hx of cataract Surgical History History of revision of total replacement of right hip joint History of hysterectomy History of carpal tunnel release of both wrists Hx of removal of cyst Hx of arthroscopy of right knee Hx of cholecystectomy Social History household members: spouse Smoking Status: Never smoker alcohol intake: never substance use type: does not use HPI HPI Chief Complaint: left Hip pain Details: GUNJAN CONNELL, is a 70 F who presents to the office today for buttock pain on her left side. Patient states that Jean night she fell on asphalt in the parking lot. She fell back on her buttocks and then hit her shoulder and her head. What hurts the worst today is her buttock. It hurts when she sits or stands. She has not used any [id number] medication for this. She is not on any blood thinners. She does ambulate with a cane. ROS Const Constitutional: Positive for other (ROS negative x 6 except what is described above) Exam Const General: cooperative, healthy appearing and no acute distress Nutritional Appearance: average body habitus Orientation: alert, awake and oriented x3 HENNY Head: normal to inspection and atraumatic Ears: hearing grossly normal bilaterally Nose: external nose normal Face and sinus: normal facial exam Mouth: oral mucosae normal Eyes General: appearance normal, both eyes and all related structures Resp Effort & Inspection: normal respiratory effort Auscultation: Bilateral: Clear to Auscultation Cardio Palpation: normal PMI Rate: regular rate Rhythm: regular rhythm Heart Sounds: S1 normal, S2 normal, no gallops, no murmurs and no rubs GI Inspection: normal to inspection Auscultation: normal bowel sounds Palpation: soft, no hepatosplenomegaly and nontender Neuro General: patient alert, patient awake, patient oriented x3 and CN's II-XI intactbilaterally Extrem Other: Tenderness to left gluteal area. No obvious bruising noted. Patient does ambulate with a cane. Coding Level of Care Code Off vis,est,level 3 Diagnoses Acute pain of left hip M25.552 Assessment and Plan Assessment and Plan (1) Acute pain of left hip: Status: Acute Plan: No obvious fractures noted. However I did explain to patient that this was preliminary and that I am awaiting radiologist read on this. In the meantime she was advised to continue to use her cane. Use ice or heat. She can also useAdvil or Tylenol to help with the pain. Will call patient back when x-ray is read. Orders: Orders HIP, UNI W/ Pelvis 2-3 Views Today W19.XXXA - Unspecified fall, initial encounter Clinical Quality Measures Falls Risk Screening/Assistive Devices Have you fallen in the past year?: Yes 03/10/25 1134 <Electronically signed by Nerissa Vidal> Date _ Nerissa JIMENEZ Cosigner Signature: Date (if applicable) CC: ~ [facility] Work Phone: Reason for referral (narrative)[facility] [place] [facility] Phone: Instructions Name Dates Details Non-smoker : How to access h ealth information online Indication:Non-smoker Non-smoker : How to access h ealth information online - Detail Indication:Non-smoker Non-smoker : Patient Instruc tions Indication:Non-smoker Unspecified osteoarthritis, unspecified site : obesity counseling Indication:Unspecified osteoarthritis, unspecified site Hypercholesteremia : How to access health information online Indication:Hypercholesteremia Hypercholesteremia : How to access health information online - Detail Indication:Hypercholesteremia Hypercholesteremia : Patient Instructions Indication:Hypercholesteremia Arthritis, rheumatoid : How to access health information online Indication:Arthritis, rheumatoid Arthritis, rheumatoid : How to access health information online - Detail Indication:Arthritis, rheumatoid Arthritis, rheumatoid : Guera ent Instructions Indication:Arthritis, rheumatoid Muscle strain : Patient Inst ructions Indication:Muscle strain Sciatica : Patient Instructi ons Indication:Sciatica Cough : Patient Instructions Indication:Cough Sore throat : Patient Instru ctions Indication:Sore throat Name Dates Details Non-smoker : How to access h ealth information online Indication:Non-smoker Non-smoker : How to access h ealth information online - Detail Indication:Non-smoker Non-smoker : Patient Instruc tions Indication:Non-smoker Unspecified osteoarthritis, unspecified site : obesity counseling Indication:Unspecified osteoarthritis, unspecified site Hypercholesteremia : How to access health information online Indication:Hypercholesteremia Hypercholesteremia : How to access health information online - Detail Indication:Hypercholesteremia Hypercholesteremia : Patient Instructions Indication:Hypercholesteremia Arthritis, rheumatoid : How to access health information online Indication:Arthritis, rheumatoid Arthritis, rheumatoid : How to access health information online - Detail Indication:Arthritis, rheumatoid Arthritis, rheumatoid : Guera ent Instructions Indication:Arthritis, rheumatoid Muscle strain : Patient Inst ructions Indication:Muscle strain Sciatica : Patient Instructi ons Indication:Sciatica Cough : Patient Instructions Indication:Cough Sore throat : Patient Instru ctions Indication:Sore throat Name Dates Details Non-smoker : How to access h ealth information online Indication:Non-smoker Non-smoker : How to access h ealth information online - Detail Indication:Non-smoker Non-smoker : Patient Instruc tions Indication:Non-smoker Unspecified osteoarthritis, unspecified site : obesity counseling Indication:Unspecified osteoarthritis, unspecified site Hypercholesteremia : How to access health information online Indication:Hypercholesteremia Hypercholesteremia : How to access health information online - Detail Indication:Hypercholesteremia Hypercholesteremia : Patient Instructions Indication:Hypercholesteremia Arthritis, rheumatoid : How to access health information online Indication:Arthritis, rheumatoid Arthritis, rheumatoid : How to access health information online - Detail Indication:Arthritis, rheumatoid Arthritis, rheumatoid : Guera ent Instructions Indication:Arthritis, rheumatoid Muscle strain : Patient Inst ructions Indication:Muscle strain Sciatica : Patient Instructi ons Indication:Sciatica Cough : Patient Instructions Indication:Cough Sore throat : Patient Instru ctions Indication:Sore throat Name Dates Details How to access health informa tion online Indication:Non-smoker Start:06-Jul-2018 Instruction Type:Patient Education How to access health informa tion online - Detail Indication:Non-smoker Start:06-Jul-2018 Instruction Type:Patient Education Patient Instructions Indication:Non-smoker Start:06-Jul-2018 Instruction Type:Provider Instructions for Treatment obesity counseling Indication:Unspecified osteoarthritis, unspecified site Start:16-May-2018 Instruction Type:Provider Instructions for Treatment How to access health informa tion online Indication:Non-smoker Start:16-May-2018 Instruction Type:Patient Education Patient Instructions Indication:Non-smoker Start:16-May-2018 Instruction Type:Provider Instructions for Treatment How to access health informa tion online Indication:Non-smoker Start:27-Apr-2018 Instruction Type:Patient Education How to access health informa tion online - Detail Indication:Non-smoker Start:27-Apr-2018 Instruction Type:Patient Education How to access health informa tion online Indication:Hypercholesteremia Start:21-Jan-2016 Instruction Type:Patient Education How to access health informa tion online - Detail Indication:Hypercholesteremia Start:21-Jan-2016 Instruction Type:Patient Education Patient Instructions Indication:Hypercholesteremia Start:21-Jan-2016 Instruction Type:Provider Instructions for Treatment How to access health informa tion online Indication:Arthritis, rheumatoid Start:02-Nov-2015 Instruction Type:Patient Education How to access health informa tion online - Detail Indication:Arthritis, rheumatoid Start:02-Nov-2015 Instruction Type:Patient Education Patient Instructions Indication:Arthritis, rheumatoid Start:02-Nov-2015 Instruction Type:Provider Instructions for Treatment Patient Instructions Indication:Muscle strain Start:03-May-2013 Instruction Type:Provider Instructions for Treatment Patient Instructions Indication:Sciatica Start:17-Jan-2013 Instruction Type:Provider Instructions for Treatment Patient Instructions Indication:Cough Start:19-Dec-2012 Instruction Type:Provider Instructions for Treatment Patient Instructions Indication:Sore throat Start:19-Dec-2012 Instruction Type:Provider Instructions for Treatment Patient Instructions Indication:Hypercholesteremia Start:15-Jun-2012 Instruction Type:Provider Instructions for Treatment Name Dates Details How to access health informa tion online Indication:Non-smoker Start:12-Feb-2020 Instruction Type:Patient Education How to access health informa tion online - Detail Indication:Non-smoker Start:12-Feb-2020 Instruction Type:Patient Education Patient Instructions Indication:Non-smoker Start:12-Feb-2020 Instruction Type:Provider Instructions for Treatment How to access health informa tion online Indication:Non-smoker Start:06-Jul-2018 Instruction Type:Patient Education How to access health informa tion online - Detail Indication:Non-smoker Start:06-Jul-2018 Instruction Type:Patient Education Patient Instructions Indication:Non-smoker Start:06-Jul-2018 Instruction Type:Provider Instructions for Treatment obesity counseling Indication:Unspecified osteoarthritis, unspecified site Start:16-May-2018 Instruction Type:Provider Instructions for Treatment How to access health informa tion online Indication:Non-smoker Start:16-May-2018 Instruction Type:Patient Education Patient Instructions Indication:Non-smoker Start:16-May-2018 Instruction Type:Provider Instructions for Treatment How to access health informa tion online Indication:Non-smoker Start:27-Apr-2018 Instruction Type:Patient Education How to access health informa tion online - Detail Indication:Non-smoker Start:27-Apr-2018 Instruction Type:Patient Education How to access health informa tion online Indication:Hypercholesteremia Start:21-Jan-2016 Instruction Type:Patient Education How to access health informa tion online - Detail Indication:Hypercholesteremia Start:21-Jan-2016 Instruction Type:Patient Education Patient Instructions Indication:Hypercholesteremia Start:21-Jan-2016 Instruction Type:Provider Instructions for Treatment How to access health informa tion online Indication:Arthritis, rheumatoid Start:02-Nov-2015 Instruction Type:Patient Education How to access health informa tion online - Detail Indication:Arthritis, rheumatoid Start:02-Nov-2015 Instruction Type:Patient Education Patient Instructions Indication:Arthritis, rheumatoid Start:02-Nov-2015 Instruction Type:Provider Instructions for Treatment Patient Instructions Indication:Muscle strain Start:03-May-2013 Instruction Type:Provider Instructions for Treatment Patient Instructions Indication:Sciatica Start:17-Jan-2013 Instruction Type:Provider Instructions for Treatment Patient Instructions Indication:Cough Start:19-Dec-2012 Instruction Type:Provider Instructions for Treatment Patient Instructions Indication:Sore throat Start:19-Dec-2012 Instruction Type:Provider Instructions for Treatment Patient Instructions Indication:Hypercholesteremia Start:15-Jun-2012 Instruction Type:Provider Instructions for Treatment Name Dates Details How to access health informa tion online Indication:Non-smoker Start:12-Feb-2020 Instruction Type:Patient Education How to access health informa tion online - Detail Indication:Non-smoker Start:12-Feb-2020 Instruction Type:Patient Education Patient Instructions Indication:Non-smoker Start:12-Feb-2020 Instruction Type:Provider Instructions for Treatment How to access health informa tion online Indication:Non-smoker Start:06-Jul-2018 Instruction Type:Patient Education How to access health informa tion online - Detail Indication:Non-smoker Start:06-Jul-2018 Instruction Type:Patient Education Patient Instructions Indication:Non-smoker Start:06-Jul-2018 Instruction Type:Provider Instructions for Treatment obesity counseling Indication:Unspecified osteoarthritis, unspecified site Start:16-May-2018 Instruction Type:Provider Instructions for Treatment How to access health informa tion online Indication:Non-smoker Start:16-May-2018 Instruction Type:Patient Education Patient Instructions Indication:Non-smoker Start:16-May-2018 Instruction Type:Provider Instructions for Treatment How to access health informa tion online Indication:Non-smoker Start:27-Apr-2018 Instruction Type:Patient Education How to access health informa tion online - Detail Indication:Non-smoker Start:27-Apr-2018 Instruction Type:Patient Education How to access health informa tion online Indication:Hypercholesteremia Start:21-Jan-2016 Instruction Type:Patient Education How to access health informa tion online - Detail Indication:Hypercholesteremia Start:21-Jan-2016 Instruction Type:Patient Education Patient Instructions Indication:Hypercholesteremia Start:21-Jan-2016 Instruction Type:Provider Instructions for Treatment How to access health informa tion online Indication:Arthritis, rheumatoid Start:02-Nov-2015 Instruction Type:Patient Education How to access health informa tion online - Detail Indication:Arthritis, rheumatoid Start:02-Nov-2015 Instruction Type:Patient Education Patient Instructions Indication:Arthritis, rheumatoid Start:02-Nov-2015 Instruction Type:Provider Instructions for Treatment Patient Instructions Indication:Muscle strain Start:03-May-2013 Instruction Type:Provider Instructions for Treatment Patient Instructions Indication:Sciatica Start:17-Jan-2013 Instruction Type:Provider Instructions for Treatment Patient Instructions Indication:Cough Start:19-Dec-2012 Instruction Type:Provider Instructions for Treatment Patient Instructions Indication:Sore throat Start:19-Dec-2012 Instruction Type:Provider Instructions for Treatment Patient Instructions Indication:Hypercholesteremia Start:15-Jun-2012 Instruction Type:Provider Instructions for Treatment Name Dates Details How to access health informa tion online Indication:Non-smoker Start:01-May-2020 Instruction Type:Patient Education How to access health informa tion online - Detail Indication:Non-smoker Start:01-May-2020 Instruction Type:Patient Education Patient Instructions Indication:Non-smoker Start:01-May-2020 Instruction Type:Provider Instructions for Treatment How to access health informa tion online Indication:Non-smoker Start:12-Feb-2020 Instruction Type:Patient Education How to access health informa tion online - Detail Indication:Non-smoker Start:12-Feb-2020 Instruction Type:Patient Education Patient Instructions Indication:Non-smoker Start:12-Feb-2020 Instruction Type:Provider Instructions for Treatment How to access health informa tion online Indication:Non-smoker Start:06-Jul-2018 Instruction Type:Patient Education How to access health informa tion online - Detail Indication:Non-smoker Start:06-Jul-2018 Instruction Type:Patient Education Patient Instructions Indication:Non-smoker Start:06-Jul-2018 Instruction Type:Provider Instructions for Treatment obesity counseling Indication:Unspecified osteoarthritis, unspecified site Start:16-May-2018 Instruction Type:Provider Instructions for Treatment How to access health informa tion online Indication:Non-smoker Start:16-May-2018 Instruction Type:Patient Education Patient Instructions Indication:Non-smoker Start:16-May-2018 Instruction Type:Provider Instructions for Treatment How to access health informa tion online Indication:Non-smoker Start:27-Apr-2018 Instruction Type:Patient Education How to access health informa tion online - Detail Indication:Non-smoker Start:27-Apr-2018 Instruction Type:Patient Education How to access health informa tion online Indication:Hypercholesteremia Start:21-Jan-2016 Instruction Type:Patient Education How to access health informa tion online - Detail Indication:Hypercholesteremia Start:21-Jan-2016 Instruction Type:Patient Education Patient Instructions Indication:Hypercholesteremia Start:21-Jan-2016 Instruction Type:Provider Instructions for Treatment How to access health informa tion online Indication:Arthritis, rheumatoid Start:02-Nov-2015 Instruction Type:Patient Education How to access health informa tion online - Detail Indication:Arthritis, rheumatoid Start:02-Nov-2015 Instruction Type:Patient Education Patient Instructions Indication:Arthritis, rheumatoid Start:02-Nov-2015 Instruction Type:Provider Instructions for Treatment Patient Instructions Indication:Muscle strain Start:03-May-2013 Instruction Type:Provider Instructions for Treatment Patient Instructions Indication:Sciatica Start:17-Jan-2013 Instruction Type:Provider Instructions for Treatment Patient Instructions Indication:Cough Start:19-Dec-2012 Instruction Type:Provider Instructions for Treatment Patient Instructions Indication:Sore throat Start:19-Dec-2012 Instruction Type:Provider Instructions for Treatment Patient Instructions Indication:Hypercholesteremia Start:15-Jun-2012 Instruction Type:Provider Instructions for Treatment Name Dates Details How to access health informa tion online Indication:Non-smoker Start:01-May-2020 Instruction Type:Patient Education How to access health informa tion online - Detail Indication:Non-smoker Start:01-May-2020 Instruction Type:Patient Education Patient Instructions Indication:Non-smoker Start:01-May-2020 Instruction Type:Provider Instructions for Treatment How to access health informa tion online Indication:Non-smoker Start:12-Feb-2020 Instruction Type:Patient Education How to access health informa tion online - Detail Indication:Non-smoker Start:12-Feb-2020 Instruction Type:Patient Education Patient Instructions Indication:Non-smoker Start:12-Feb-2020 Instruction Type:Provider Instructions for Treatment How to access health informa tion online Indication:Non-smoker Start:06-Jul-2018 Instruction Type:Patient Education How to access health informa tion online - Detail Indication:Non-smoker Start:06-Jul-2018 Instruction Type:Patient Education Patient Instructions Indication:Non-smoker Start:06-Jul-2018 Instruction Type:Provider Instructions for Treatment obesity counseling Indication:Unspecified osteoarthritis, unspecified site Start:16-May-2018 Instruction Type:Provider Instructions for Treatment How to access health informa tion online Indication:Non-smoker Start:16-May-2018 Instruction Type:Patient Education Patient Instructions Indication:Non-smoker Start:16-May-2018 Instruction Type:Provider Instructions for Treatment How to access health informa tion online Indication:Non-smoker Start:27-Apr-2018 Instruction Type:Patient Education How to access health informa tion online - Detail Indication:Non-smoker Start:27-Apr-2018 Instruction Type:Patient Education How to access health informa tion online Indication:Hypercholesteremia Start:21-Jan-2016 Instruction Type:Patient Education How to access health informa tion online - Detail Indication:Hypercholesteremia Start:21-Jan-2016 Instruction Type:Patient Education Patient Instructions Indication:Hypercholesteremia Start:21-Jan-2016 Instruction Type:Provider Instructions for Treatment How to access health informa tion online Indication:Arthritis, rheumatoid Start:02-Nov-2015 Instruction Type:Patient Education How to access health informa tion online - Detail Indication:Arthritis, rheumatoid Start:02-Nov-2015 Instruction Type:Patient Education Patient Instructions Indication:Arthritis, rheumatoid Start:02-Nov-2015 Instruction Type:Provider Instructions for Treatment Patient Instructions Indication:Muscle strain Start:03-May-2013 Instruction Type:Provider Instructions for Treatment Patient Instructions Indication:Sciatica Start:17-Jan-2013 Instruction Type:Provider Instructions for Treatment Patient Instructions Indication:Cough Start:19-Dec-2012 Instruction Type:Provider Instructions for Treatment Patient Instructions Indication:Sore throat Start:19-Dec-2012 Instruction Type:Provider Instructions for Treatment Patient Instructions Indication:Hypercholesteremia Start:15-Jun-2012 Instruction Type:Provider Instructions for Treatment Name Dates Details How to Access Health Informa tion Online using Patient Portal and [employer] Apps Indication:Non-smoker Start:20-Nov-2020 Instruction Type:Patient Education Patient Instructions Indication:Non-smoker Start:20-Nov-2020 Instruction Type:Provider Instructions for Treatment How to access health informa tion online Indication:Non-smoker Start:01-May-2020 Instruction Type:Patient Education How to access health informa tion online - Detail Indication:Non-smoker Start:01-May-2020 Instruction Type:Patient Education Patient Instructions Indication:Non-smoker Start:01-May-2020 Instruction Type:Provider Instructions for Treatment How to access health informa tion online Indication:Non-smoker Start:12-Feb-2020 Instruction Type:Patient Education How to access health informa tion online - Detail Indication:Non-smoker Start:12-Feb-2020 Instruction Type:Patient Education Patient Instructions Indication:Non-smoker Start:12-Feb-2020 Instruction Type:Provider Instructions for Treatment How to access health informa tion online Indication:Non-smoker Start:06-Jul-2018 Instruction Type:Patient Education How to access health informa tion online - Detail Indication:Non-smoker Start:06-Jul-2018 Instruction Type:Patient Education Patient Instructions Indication:Non-smoker Start:06-Jul-2018 Instruction Type:Provider Instructions for Treatment obesity counseling Indication:Unspecified osteoarthritis, unspecified site Start:16-May-2018 Instruction Type:Provider Instructions for Treatment How to access health informa tion online Indication:Non-smoker Start:16-May-2018 Instruction Type:Patient Education Patient Instructions Indication:Non-smoker Start:16-May-2018 Instruction Type:Provider Instructions for Treatment How to access health informa tion online Indication:Non-smoker Start:27-Apr-2018 Instruction Type:Patient Education How to access health informa tion online - Detail Indication:Non-smoker Start:27-Apr-2018 Instruction Type:Patient Education How to access health informa tion online Indication:Hypercholesteremia Start:21-Jan-2016 Instruction Type:Patient Education How to access health informa tion online - Detail Indication:Hypercholesteremia Start:21-Jan-2016 Instruction Type:Patient Education Patient Instructions Indication:Hypercholesteremia Start:21-Jan-2016 Instruction Type:Provider Instructions for Treatment How to access health informa tion online Indication:Arthritis, rheumatoid Start:02-Nov-2015 Instruction Type:Patient Education How to access health informa tion online - Detail Indication:Arthritis, rheumatoid Start:02-Nov-2015 Instruction Type:Patient Education Patient Instructions Indication:Arthritis, rheumatoid Start:02-Nov-2015 Instruction Type:Provider Instructions for Treatment Patient Instructions Indication:Muscle strain Start:03-May-2013 Instruction Type:Provider Instructions for Treatment Patient Instructions Indication:Sciatica Start:17-Jan-2013 Instruction Type:Provider Instructions for Treatment Patient Instructions Indication:Cough Start:19-Dec-2012 Instruction Type:Provider Instructions for Treatment Patient Instructions Indication:Sore throat Start:19-Dec-2012 Instruction Type:Provider Instructions for Treatment Patient Instructions Indication:Hypercholesteremia Start:15-Jun-2012 Instruction Type:Provider Instructions for Treatment Name Dates Details How to access health informa tion online Indication:Non-smoker Start:12-Feb-2020 Instruction Type:Patient Education How to access health informa tion online - Detail Indication:Non-smoker Start:12-Feb-2020 Instruction Type:Patient Education Patient Instructions Indication:Non-smoker Start:12-Feb-2020 Instruction Type:Provider Instructions for Treatment How to access health informa tion online Indication:Non-smoker Start:06-Jul-2018 Instruction Type:Patient Education How to access health informa tion online - Detail Indication:Non-smoker Start:06-Jul-2018 Instruction Type:Patient Education Patient Instructions Indication:Non-smoker Start:06-Jul-2018 Instruction Type:Provider Instructions for Treatment obesity counseling Indication:Unspecified osteoarthritis, unspecified site Start:16-May-2018 Instruction Type:Provider Instructions for Treatment How to access health informa tion online Indication:Non-smoker Start:16-May-2018 Instruction Type:Patient Education Patient Instructions Indication:Non-smoker Start:16-May-2018 Instruction Type:Provider Instructions for Treatment How to access health informa tion online Indication:Non-smoker Start:27-Apr-2018 Instruction Type:Patient Education How to access health informa tion online - Detail Indication:Non-smoker Start:27-Apr-2018 Instruction Type:Patient Education How to access health informa tion online Indication:Hypercholesteremia Start:21-Jan-2016 Instruction Type:Patient Education How to access health informa tion online - Detail Indication:Hypercholesteremia Start:21-Jan-2016 Instruction Type:Patient Education Patient Instructions Indication:Hypercholesteremia Start:21-Jan-2016 Instruction Type:Provider Instructions for Treatment How to access health informa tion online Indication:Arthritis, rheumatoid Start:02-Nov-2015 Instruction Type:Patient Education How to access health informa tion online - Detail Indication:Arthritis, rheumatoid Start:02-Nov-2015 Instruction Type:Patient Education Patient Instructions Indication:Arthritis, rheumatoid Start:02-Nov-2015 Instruction Type:Provider Instructions for Treatment Patient Instructions Indication:Muscle strain Start:03-May-2013 Instruction Type:Provider Instructions for Treatment Patient Instructions Indication:Sciatica Start:17-Jan-2013 Instruction Type:Provider Instructions for Treatment Patient Instructions Indication:Cough Start:19-Dec-2012 Instruction Type:Provider Instructions for Treatment Patient Instructions Indication:Sore throat Start:19-Dec-2012 Instruction Type:Provider Instructions for Treatment Patient Instructions Indication:Hypercholesteremia Start:15-Jun-2012 Instruction Type:Provider Instructions for Treatment Name Dates Details Patient Instructions Indication:Non-smoker Start:04-Dec-2020 Instruction Type:Provider Instructions for Treatment How to Access Health Informa tion Online using Patient Portal and [employer] Apps Indication:Non-smoker Start:04-Dec-2020 Instruction Type:Patient Education How to Access Health Informa tion Online using Patient Portal and [employer] Apps Indication:Non-smoker Start:20-Nov-2020 Instruction Type:Patient Education Patient Instructions Indication:Non-smoker Start:20-Nov-2020 Instruction Type:Provider Instructions for Treatment How to access health informa tion online Indication:Non-smoker Start:01-May-2020 Instruction Type:Patient Education How to access health informa tion online - Detail Indication:Non-smoker Start:01-May-2020 Instruction Type:Patient Education Patient Instructions Indication:Non-smoker Start:01-May-2020 Instruction Type:Provider Instructions for Treatment How to access health informa tion online Indication:Non-smoker Start:12-Feb-2020 Instruction Type:Patient Education How to access health informa tion online - Detail Indication:Non-smoker Start:12-Feb-2020 Instruction Type:Patient Education Patient Instructions Indication:Non-smoker Start:12-Feb-2020 Instruction Type:Provider Instructions for Treatment How to access health informa tion online Indication:Non-smoker Start:06-Jul-2018 Instruction Type:Patient Education How to access health informa tion online - Detail Indication:Non-smoker Start:06-Jul-2018 Instruction Type:Patient Education Patient Instructions Indication:Non-smoker Start:06-Jul-2018 Instruction Type:Provider Instructions for Treatment obesity counseling Indication:Unspecified osteoarthritis, unspecified site Start:16-May-2018 Instruction Type:Provider Instructions for Treatment How to access health informa tion online Indication:Non-smoker Start:16-May-2018 Instruction Type:Patient Education Patient Instructions Indication:Non-smoker Start:16-May-2018 Instruction Type:Provider Instructions for Treatment How to access health informa tion online Indication:Non-smoker Start:27-Apr-2018 Instruction Type:Patient Education How to access health informa tion online - Detail Indication:Non-smoker Start:27-Apr-2018 Instruction Type:Patient Education How to access health informa tion online Indication:Hypercholesteremia Start:21-Jan-2016 Instruction Type:Patient Education How to access health informa tion online - Detail Indication:Hypercholesteremia Start:21-Jan-2016 Instruction Type:Patient Education Patient Instructions Indication:Hypercholesteremia Start:21-Jan-2016 Instruction Type:Provider Instructions for Treatment How to access health informa tion online Indication:Arthritis, rheumatoid Start:02-Nov-2015 Instruction Type:Patient Education How to access health informa tion online - Detail Indication:Arthritis, rheumatoid Start:02-Nov-2015 Instruction Type:Patient Education Patient Instructions Indication:Arthritis, rheumatoid Start:02-Nov-2015 Instruction Type:Provider Instructions for Treatment Patient Instructions Indication:Muscle strain Start:03-May-2013 Instruction Type:Provider Instructions for Treatment Patient Instructions Indication:Sciatica Start:17-Jan-2013 Instruction Type:Provider Instructions for Treatment Patient Instructions Indication:Cough Start:19-Dec-2012 Instruction Type:Provider Instructions for Treatment Patient Instructions Indication:Sore throat Start:19-Dec-2012 Instruction Type:Provider Instructions for Treatment Patient Instructions Indication:Hypercholesteremia Start:15-Jun-2012 Instruction Type:Provider Instructions for Treatment Name Dates Details Patient Instructions Indication:Non-smoker Start:04-Dec-2020 Instruction Type:Provider Instructions for Treatment How to Access Health Informa tion Online using Patient Portal and [employer] Apps Indication:Non-smoker Start:04-Dec-2020 Instruction Type:Patient Education How to Access Health Informa tion Online using Patient Portal and [employer] Apps Indication:Non-smoker Start:20-Nov-2020 Instruction Type:Patient Education Patient Instructions Indication:Non-smoker Start:20-Nov-2020 Instruction Type:Provider Instructions for Treatment How to access health informa tion online Indication:Non-smoker Start:01-May-2020 Instruction Type:Patient Education How to access health informa tion online - Detail Indication:Non-smoker Start:01-May-2020 Instruction Type:Patient Education Patient Instructions Indication:Non-smoker Start:01-May-2020 Instruction Type:Provider Instructions for Treatment How to access health informa tion online Indication:Non-smoker Start:12-Feb-2020 Instruction Type:Patient Education How to access health informa tion online - Detail Indication:Non-smoker Start:12-Feb-2020 Instruction Type:Patient Education Patient Instructions Indication:Non-smoker Start:12-Feb-2020 Instruction Type:Provider Instructions for Treatment How to access health informa tion online Indication:Non-smoker Start:06-Jul-2018 Instruction Type:Patient Education How to access health informa tion online - Detail Indication:Non-smoker Start:06-Jul-2018 Instruction Type:Patient Education Patient Instructions Indication:Non-smoker Start:06-Jul-2018 Instruction Type:Provider Instructions for Treatment obesity counseling Indication:Unspecified osteoarthritis, unspecified site Start:16-May-2018 Instruction Type:Provider Instructions for Treatment How to access health informa tion online Indication:Non-smoker Start:16-May-2018 Instruction Type:Patient Education Patient Instructions Indication:Non-smoker Start:16-May-2018 Instruction Type:Provider Instructions for Treatment How to access health informa tion online Indication:Non-smoker Start:27-Apr-2018 Instruction Type:Patient Education How to access health informa tion online - Detail Indication:Non-smoker Start:27-Apr-2018 Instruction Type:Patient Education How to access health informa tion online Indication:Hypercholesteremia Start:21-Jan-2016 Instruction Type:Patient Education How to access health informa tion online - Detail Indication:Hypercholesteremia Start:21-Jan-2016 Instruction Type:Patient Education Patient Instructions Indication:Hypercholesteremia Start:21-Jan-2016 Instruction Type:Provider Instructions for Treatment How to access health informa tion online Indication:Arthritis, rheumatoid Start:02-Nov-2015 Instruction Type:Patient Education How to access health informa tion online - Detail Indication:Arthritis, rheumatoid Start:02-Nov-2015 Instruction Type:Patient Education Patient Instructions Indication:Arthritis, rheumatoid Start:02-Nov-2015 Instruction Type:Provider Instructions for Treatment Patient Instructions Indication:Muscle strain Start:03-May-2013 Instruction Type:Provider Instructions for Treatment Patient Instructions Indication:Sciatica Start:17-Jan-2013 Instruction Type:Provider Instructions for Treatment Patient Instructions Indication:Cough Start:19-Dec-2012 Instruction Type:Provider Instructions for Treatment Patient Instructions Indication:Sore throat Start:19-Dec-2012 Instruction Type:Provider Instructions for Treatment Patient Instructions Indication:Hypercholesteremia Start:15-Jun-2012 Instruction Type:Provider Instructions for Treatment Name Dates Details Patient Instructions Indication:BMI 34.0-34.9,adult Start:11-Dec-2020 Instruction Type:Provider Instructions for Treatment How to Access Health Informa tion Online using Patient Portal and [employer] Apps Indication:BMI 34.0-34.9,adult Start:11-Dec-2020 Instruction Type:Patient Education Patient Instructions Indication:Non-smoker Start:04-Dec-2020 Instruction Type:Provider Instructions for Treatment How to Access Health Informa tion Online using Patient Portal and [employer] Apps Indication:Non-smoker Start:04-Dec-2020 Instruction Type:Patient Education How to Access Health Informa tion Online using Patient Portal and [employer] Apps Indication:Non-smoker Start:20-Nov-2020 Instruction Type:Patient Education Patient Instructions Indication:Non-smoker Start:20-Nov-2020 Instruction Type:Provider Instructions for Treatment How to access health informa tion online Indication:Non-smoker Start:01-May-2020 Instruction Type:Patient Education How to access health informa tion online - Detail Indication:Non-smoker Start:01-May-2020 Instruction Type:Patient Education Patient Instructions Indication:Non-smoker Start:01-May-2020 Instruction Type:Provider Instructions for Treatment How to access health informa tion online Indication:Non-smoker Start:12-Feb-2020 Instruction Type:Patient Education How to access health informa tion online - Detail Indication:Non-smoker Start:12-Feb-2020 Instruction Type:Patient Education Patient Instructions Indication:Non-smoker Start:12-Feb-2020 Instruction Type:Provider Instructions for Treatment How to access health informa tion online Indication:Non-smoker Start:06-Jul-2018 Instruction Type:Patient Education How to access health informa tion online - Detail Indication:Non-smoker Start:06-Jul-2018 Instruction Type:Patient Education Patient Instructions Indication:Non-smoker Start:06-Jul-2018 Instruction Type:Provider Instructions for Treatment obesity counseling Indication:Unspecified osteoarthritis, unspecified site Start:16-May-2018 Instruction Type:Provider Instructions for Treatment How to access health informa tion online Indication:Non-smoker Start:16-May-2018 Instruction Type:Patient Education Patient Instructions Indication:Non-smoker Start:16-May-2018 Instruction Type:Provider Instructions for Treatment How to access health informa tion online Indication:Non-smoker Start:27-Apr-2018 Instruction Type:Patient Education How to access health informa tion online - Detail Indication:Non-smoker Start:27-Apr-2018 Instruction Type:Patient Education How to access health informa tion online Indication:Hypercholesteremia Start:21-Jan-2016 Instruction Type:Patient Education How to access health informa tion online - Detail Indication:Hypercholesteremia Start:21-Jan-2016 Instruction Type:Patient Education Patient Instructions Indication:Hypercholesteremia Start:21-Jan-2016 Instruction Type:Provider Instructions for Treatment How to access health informa tion online Indication:Arthritis, rheumatoid Start:02-Nov-2015 Instruction Type:Patient Education How to access health informa tion online - Detail Indication:Arthritis, rheumatoid Start:02-Nov-2015 Instruction Type:Patient Education Patient Instructions Indication:Arthritis, rheumatoid Start:02-Nov-2015 Instruction Type:Provider Instructions for Treatment Patient Instructions Indication:Muscle strain Start:03-May-2013 Instruction Type:Provider Instructions for Treatment Patient Instructions Indication:Sciatica Start:17-Jan-2013 Instruction Type:Provider Instructions for Treatment Patient Instructions Indication:Cough Start:19-Dec-2012 Instruction Type:Provider Instructions for Treatment Patient Instructions Indication:Sore throat Start:19-Dec-2012 Instruction Type:Provider Instructions for Treatment Patient Instructions Indication:Hypercholesteremia Start:15-Jun-2012 Instruction Type:Provider Instructions for Treatment Name Dates Details Patient Instructions Indication:BMI 34.0-34.9,adult Start:11-Dec-2020 Instruction Type:Provider Instructions for Treatment How to Access Health Informa tion Online using Patient Portal and [employer] Apps Indication:BMI 34.0-34.9,adult Start:11-Dec-2020 Instruction Type:Patient Education Patient Instructions Indication:Non-smoker Start:04-Dec-2020 Instruction Type:Provider Instructions for Treatment How to Access Health Informa tion Online using Patient Portal and [employer] Apps Indication:Non-smoker Start:04-Dec-2020 Instruction Type:Patient Education How to Access Health Informa tion Online using Patient Portal and [employer] Apps Indication:Non-smoker Start:20-Nov-2020 Instruction Type:Patient Education Patient Instructions Indication:Non-smoker Start:20-Nov-2020 Instruction Type:Provider Instructions for Treatment How to access health informa tion online Indication:Non-smoker Start:01-May-2020 Instruction Type:Patient Education How to access health informa tion online - Detail Indication:Non-smoker Start:01-May-2020 Instruction Type:Patient Education Patient Instructions Indication:Non-smoker Start:01-May-2020 Instruction Type:Provider Instructions for Treatment How to access health informa tion online Indication:Non-smoker Start:12-Feb-2020 Instruction Type:Patient Education How to access health informa tion online - Detail Indication:Non-smoker Start:12-Feb-2020 Instruction Type:Patient Education Patient Instructions Indication:Non-smoker Start:12-Feb-2020 Instruction Type:Provider Instructions for Treatment How to access health informa tion online Indication:Non-smoker Start:06-Jul-2018 Instruction Type:Patient Education How to access health informa tion online - Detail Indication:Non-smoker Start:06-Jul-2018 Instruction Type:Patient Education Patient Instructions Indication:Non-smoker Start:06-Jul-2018 Instruction Type:Provider Instructions for Treatment obesity counseling Indication:Unspecified osteoarthritis, unspecified site Start:16-May-2018 Instruction Type:Provider Instructions for Treatment How to access health informa tion online Indication:Non-smoker Start:16-May-2018 Instruction Type:Patient Education Patient Instructions Indication:Non-smoker Start:16-May-2018 Instruction Type:Provider Instructions for Treatment How to access health informa tion online Indication:Non-smoker Start:27-Apr-2018 Instruction Type:Patient Education How to access health informa tion online - Detail Indication:Non-smoker Start:27-Apr-2018 Instruction Type:Patient Education How to access health informa tion online Indication:Hypercholesteremia Start:21-Jan-2016 Instruction Type:Patient Education How to access health informa tion online - Detail Indication:Hypercholesteremia Start:21-Jan-2016 Instruction Type:Patient Education Patient Instructions Indication:Hypercholesteremia Start:21-Jan-2016 Instruction Type:Provider Instructions for Treatment How to access health informa tion online Indication:Arthritis, rheumatoid Start:02-Nov-2015 Instruction Type:Patient Education How to access health informa tion online - Detail Indication:Arthritis, rheumatoid Start:02-Nov-2015 Instruction Type:Patient Education Patient Instructions Indication:Arthritis, rheumatoid Start:02-Nov-2015 Instruction Type:Provider Instructions for Treatment Patient Instructions Indication:Muscle strain Start:03-May-2013 Instruction Type:Provider Instructions for Treatment Patient Instructions Indication:Sciatica Start:17-Jan-2013 Instruction Type:Provider Instructions for Treatment Patient Instructions Indication:Cough Start:19-Dec-2012 Instruction Type:Provider Instructions for Treatment Patient Instructions Indication:Sore throat Start:19-Dec-2012 Instruction Type:Provider Instructions for Treatment Patient Instructions Indication:Hypercholesteremia Start:15-Jun-2012 Instruction Type:Provider Instructions for Treatment Chief Complaint and Reason for Visit Chief Complaint BILAT UPPER NUMBNESS AND TINGLING Chief Complaint BILAT UPPER NUMBNESS AND TINGLING PAIN- [facility] PCP Chief Complaint PAIN- [facility] PCP Bilat knees bilateral knee x-rays PAIN- [facility] PCP Reason for Visit Compression fracture of body of thoracic vertebra Compression fx, lumbar spine Left knee DJD Lower extremity edema Lumbar spondylosis Neuropathy Right knee pain S/P total knee arthroplasty Chief Complaint PAIN- [facility] PCP Chief Complaint PAIN- [facility] PCP ANKLE PAIN Chief Complaint POWER- [facility] PCP fall Chief Complaint POWER- COPY PCP fall left ankle Chief Complaint POWER- COPY PCP fall left ankle PAIN- COPY PCP Chief Complaint left ankle PAIN- COPY PCP PAIN- COPY PCP Chief Complaint PAIN- COPY PCP OSTEOPOROSIS, SCREENING Chief Complaint Admit Date RIGHT PERIPROSTHETIC FRACTURE July 062023 8:42am RIGHT PERIPROSTHETIC FRACTURE July 062023 8:42am RIGHT PERIPROSTHETIC FRACTURE July 062023 10:52am AM EKG August 02, 2024 5:38am RIGHT PERIPROSTHETIC FRACTURE July 062023 12:28pm RIGHT PERIPROSTHETIC FRACTURE July 072023 9:42am RIGHT PERIPROSTHETIC FRACTURE August 042023 9:47am RIGHT PERIPROSTHETIC FRACTURE August 052023 10:20am RIGHT PERIPROSTHETIC FRACTURE August 052023 6:39pm RT LEG SWELLING August 19, 2024 8:36am 2 ORDERING 'Leann - [facility] PCP ON YOSEF CORNELL September 05, 2024 12:33pm RIGHT HIP September 11, 2024 10 :48am room 1 September 11, 2024 11 :01am RIGHT HIP November 04, 2024 3:18 pm room 5 November 04, 2024 3:29 pm PAIN- COPY PCP November 22, 2024 2:4 0pm Reason for Visit Admit Date Current use of anticoagulant therapy Nov 2023 8:42am Elevated blood-pressure read ing without diagnosis of hypertension July 26, 2024 8:42am Neuropathy July 26, 2024 8:42am Other acute postprocedural pain July 26, 2024 8:42am Periprosthetic fracture arou nd internal prosthetic right hip joint July 26, 2024 8:42am Periprosthetic fracture arou nd internal prosthetic right hip joint, initial July 26, 2024 8:42am Acute hypokalemia July 26, 2024 8:42am Postoperative anemia July 26, 2024 8:42am Debility August 05, 2024 6 :39pm Essential (primary) hypertension Decembe r 2023 6:39pm Gastric ulcer August 05, 2024 6 :39pm Iron deficiency anemia August 05 6:39pm Periprosthetic fracture arou nd internal prosthetic right hip joint August 05, 2024 6:39pm Rheumatoid arthritis August 05, 2024 6:39pm Vitamin D deficiency August 05, 2024 6:39pm Encephalopathy August 05, 2024 6 :39pm Hypokalemia August 05, 2024 6 :39pm Orthopedic aftercare September 11, 2024 1 0:48am Orthopedic aftercare November 04, 2024 3:1 8pm Periprosthetic fracture arou nd internal prosthetic right hip joint November 04, 2024 3:18pm Rheumatoid arthritis November 04, 2024 3:1 8pm Chief Complaint Admit Date RIGHT HIP November 04, 2024 3:18 pm room 5 November 04, 2024 3:29 pm PAIN- COPY PCP November 22, 2024 2:4 0pm gi bleed January 12, 2025 2:04p m Reason for Visit Admit Date Orthopedic aftercare November 04, 2024 3:1 8pm Periprosthetic fracture arou nd internal prosthetic right hip joint November 04, 2024 3:18pm Rheumatoid arthritis November 04, 2024 3:1 8pm Chief Complaint Admit Date RIGHT HIP November 04, 2024 3:18 pm room 5 November 04, 2024 3:29 pm PAIN- COPY PCP November 22, 2024 2:4 0pm gi bleed January 12, 2025 2:04p m Left upper quadrant pain January 16, 2025 11:12am Chief Complaint Admit Date RIGHT HIP November 04, 2024 3:18 pm room 5 November 04, 2024 3:29 pm PAIN- COPY PCP November 22, 2024 2:4 0pm gi bleed January 12, 2025 2:04p m Left upper quadrant pain January 16, 2025 11:12am RIGHT FLANK PAIN February 19, 2025 4:54 pm Chief Complaint Admit Date PAIN- COPY PCP November 22, 2024 2:4 0pm gi bleed January 12, 2025 2:04p m Left upper quadrant pain January 16, 2025 11:12am RIGHT FLANK PAIN February 19, 2025 4:54 pm Fall- LEFT HIP March 10, 2025 10:42 am L HIP PAIN FROM FALL March 10, 2025 11:0 4am Reason for Visit Admit Date Acute pain of left hip March 10, 2025 11 :04am Chief Complaint Admit Date PAIN- COPY PCP November 22, 2024 2:4 0pm gi bleed January 12, 2025 2:04p m Left upper quadrant pain January 16, 2025 11:12am RIGHT FLANK PAIN February 19, 2025 4:54 pm Fall- LEFT HIP March 10, 2025 10:42 am L HIP PAIN FROM FALL March 10, 2025 11:0 4am RASH ON BOTH LEGS March 21, 2025 11:0 2am Chief Complaint Admit Date gi bleed January 12, 2025 2:04p m Left upper quadrant pain January 16, 2025 11:12am RIGHT FLANK PAIN February 19, 2025 4:54 pm Fall- LEFT HIP March 10, 2025 10:42 am L HIP PAIN FROM FALL March 10, 2025 11:0 4am RASH ON BOTH LEGS March 21, 2025 11:0 2am abd pain April 02, 2025 2:04 pm Reason for Visit Admit Date Acute pain of left hip March 10, 2025 11 :04am Bilateral lower extremity edema March 11:02am Chief Complaint Admit Date gi bleed January 12, 2025 2:04p m Left upper quadrant pain January 16, 2025 11:12am RIGHT FLANK PAIN February 19, 2025 4:54 pm Fall- LEFT HIP March 10, 2025 10:42 am L HIP PAIN FROM FALL March 10, 2025 11:0 4am RASH ON BOTH LEGS March 21, 2025 11:0 2am abd pain April 02, 2025 2:04 pm PAIN- COPY PCP April 14, 2025 10 :49am Advance Directives No Advanced Directives Records Found Advance Directive Response Recorded Date/ Time Advance Directives No August 12:30pm Living Will No July 15 11:56am Power of Assemblyman Or Woman No July 15, 2021 11:56am Advance Directive Response Recorded Date/ Time Advance Directives No August 11:30am Living Will No July 15 10:56am Power of Assemblyman Or Woman No July 15, 2021 10:56am Advance Directive Response Recorded Date/ Time Advance Directives No August 12:30pm Living Will No November 21, 2022 1:18am Power of Assemblyman Or Woman No November 21 1:18am Advance Directive Response Recorded Date/ Time Advance Directives No August 12:30pm Living Will No April 18 1:25pm Power of Assemblyman Or Woman No April 18, 2 023 1:25pm Advance Directive Response Recorded Date/ Time Advance Directives No August 12:30pm Living Will No June 03, 2023 4:55pm Power of Assemblyman Or Woman No May 4:55pm Advance Directive Response Recorded Date/ Time Advance Directives No August 11:30am Living Will No June 03, 2023 3:55pm Power of Assemblyman Or Woman No May 3:55pm Advance Directive Response Recorded Date/ Time Living Will No April 24 10:38am Do you have a Healthcare Power of Assemblyman Or Woman? No April 24, 2024 10:38am Living Will No July 26, 024 11:16am Do you have a Healthcare Power of Assemblyman Or Woman? No July 26, 2024 11:16am Living Will No August 06 4:07pm Do you have a Healthcare Power of Assemblyman Or Woman? No August 06, 2024 4:07pm Advance Directives No August 12:30pm Advance Directive Response Recorded Date/ Time Do you have a Healthcare Power of Assemblyman Or Woman? No January 12, 2025 2:18pm Advance Directives No August 12:30pm Advance Directive Response Recorded Date/ Time Do you have a Healthcare Power of Assemblyman Or Woman? No January 12, 2025 2:18pm Do you have a Healthcare Power of Assemblyman Or Woman? Yes April 02, 2025 2:34pm Advance Directives No August 12:30pm Summary Purpose Family History No Family History Records FoundNo Family History Records Found Additional Source Comments Goals (unrecognized section and content) Goals may be documented in a n alternate sectionGoals may be documented in an alternate sectionGoals may be documented in an alternate sectionGoals may be documented in an alternate sectionGoals may be documented in an alternate sectionGoals may be documented in an alternate sectionGoals may be documented in an alternate sectionGoals may be documented in an alternate sectionGoals may be documented in an alternate sectionGoals may be documented in an alternate sectionGoals may be documented in an alternate sectionGoals may be documented in an alternate sectionGoals may be documented in an alternate sectionGoals may be documented in an alternate sectionGoals may be documented in an alternate sectionGoals may be documented in an alternate sectionGoals may be documented in an alternate sectionGoals may be documented in an alternate sectionGoals may be documented in an alternate sectionGoals may be documented in an alternate sectionGoals may be documented in an alternate section Care Teams (unrecognized sec tion and content) Team Status: Active Member Role Status Dates Dr. Patt Jones DO Family Provider Active Dr. Patt Jones DO Primary Care Provider Active Team Status: Inactive Member Role Status Dates Dr. Patt Jones DO Primary Care Provider Active Dr. Manisha Navas MD Attending Provider Active Team Status: Inactive Member Role Status Dates Dr. Patt Jones DO Primary Care Provider Active Dr. Manisha Navas MD Attending Provider, Referring Provider Active Team Status: Inactive Member Role Status Dates Dr. Patt Jones DO Primary Care Provider Active Dr. Ashwin Valencia MD Emergency Provider Active Team Status: Inactive Member Role Status Dates Dr. Patt Jones DO Primary Care Provider Active Dr. Ashwin Valencia MD Attending Provider, Emergency Pro vider Active Team Status: Active Member Role Status Dates Dr. Patt Jones DO Primary Care Provider Active Dr. Jose Manuel Wagner MD Attending Provider Active Team Status: Inactive Member Role Status Dates Dr. Patt Jones DO Primary Care Provider Active Dr. Regi Bunch , DO Emergency Provider Active Team Status: Active Member Role Status Dates Dr. Patt Jones DO Primary Care Provider Active Dr. Jose Manuel Wagner MD Attending Provider Active Dr. Regi Bunch , DO Referring Provider Active Team Status: Inactive Member Role Status Dates Dr. Patt Jones DO Primary Care Provider Active Dr. Regi Bunch , DO Attending Provider, Emergency P jeanine Active Team Status: Inactive Member Role Status Dates Dr. Patt Jones DO Primary Care Provider Active Dr. Ramu Romero MD Emergency Provider Active Team Status: Inactive Member Role Status Dates Dr. Patt Jones DO Primary Care Provider Active Dr. Ramu Romero MD Attending Provider, Emergency Provider Active Team Status: Inactive Member Role Status Dates Dr. Patt Jones DO Primary Care Pr ovider, Attending Provider, Referring Provider Active Team Status: Inactive Member Role Status Dates Dr. Patt Jones DO Primary Care Provider Active Start: July 26, 2024 End: August 05, 2024 Dr. Skyler Yap MD Emergency Provider Active Sta rt: July 26, 2024 End: August 05, 2024 Dr. Lance Gresham MD Admit Provider Active Sta rt: July 26, 2024 End: August 05, 2024 Dr. Lance Gresham MD Attending Provider Active Start: July 26, 2024 End: August 05, 2024 Dr. Lance Gresham MD Other Provider Active Sta rt: July 26, 2024 End: August 05, 2024 Dr. Negro Johnson DO Other Provider Active St art: July 26, 2024 End: August 05, 2024 Dr. Mohini Willson MD Other Provider Active St art: July 26, 2024 End: August 05, 2024 Team Status: Active Member Role Status Dates Dr. Patt Jones DO Primary Care Provider Active Start: August 01, 2024 Dr. Skyler Yap MD Emergency Provider Active Sta rt: August 01, 2024 Dr. Lance Gresham MD Admit Provider Active Sta rt: August 01, 2024 Dr. Lance Gresham MD Referring Provider Active Start: August 01, 2024 Dr. Lance Gresham MD Other Provider Active Sta rt: August 01, 2024 Dr. Mohini Willson MD Other Provider Active St art: August 01, 2024 Dr. Negro Johnson DO Other Provider Active St art: August 01, 2024 Dr. Avlarez Ohara DO Attending Provider Active Start: August 01, 2024 Team Status: Active Member Role Status Dates Dr. Patt Jones DO Primary Care Provider Active Start: August 01, 2024 Dr. Skyler Yap MD Emergency Provider Active Sta rt: August 01, 2024 Dr. Lance Gresham MD Admit Provider Active Sta rt: August 01, 2024 Dr. Lance Gresham MD Other Provider Active Sta rt: August 01, 2024 Dr. Mohini Willson MD Attending Provider Active Start: August 01, 2024 Dr. Mohini Willson MD Other Provider Active St art: August 01, 2024 Dr. Negro Johnson DO Other Provider Active St art: August 01, 2024 Team Status: Active Member Role Status Dates Dr. Patt Jones DO Primary Care Provider Active Start: August 02, 2024 End: August 02, 2024 Dr. Aisha Madison MD Attending Provider Active Start: August 02, 2024 End: August 02, 2024 Dr. Aisha Madison MD Referring Provider Active Start: August 02, 2024 End: August 02, 2024 Team Status: Active Member Role Status Dates Dr. Patt Jones DO Primary Care Provider Active Start: August 02, 2024 Dr. Alvarez Ohara DO Attending Provider Active Start: August 02, 2024 Dr. Lance Gresham MD Referring Provider Active Start: August 02, 2024 Team Status: Active Member Role Status Dates Dr. Patt Jones DO Primary Care Provider Active Start: August 02, 2024 Dr. Skyler Yap MD Emergency Provider Active Sta rt: August 02, 2024 Dr. Lance Gresham MD Admit Provider Active Sta rt: August 02, 2024 Dr. Lance Gresham MD Other Provider Active Sta rt: August 02, 2024 Dr. Mohini Willson MD Attending Provider Active Start: August 02, 2024 Dr. Mohini Willson MD Other Provider Active St art: August 02, 2024 Dr. Negro Johnson DO Other Provider Active St art: August 02, 2024 Team Status: Active Member Role Status Dates Dr. Patt Jones DO Primary Care Provider Active Start: August 03, 2024 Dr. Skyler Yap MD Emergency Provider Active Sta rt: August 03, 2024 Dr. Lance Gresham MD Admit Provider Active Sta rt: August 03, 2024 Dr. Lance Gresham MD Other Provider Active Sta rt: August 03, 2024 Dr. Mohini Willson MD Attending Provider Active Start: August 03, 2024 Dr. Mohini Willson MD Other Provider Active St art: August 03, 2024 Dr. Negro Johnson DO Other Provider Active St art: August 03, 2024 Team Status: Active Member Role Status Dates Dr. Patt Jones DO Primary Care Provider Active Start: August 04, 2024 Dr. Skyler Yap MD Emergency Provider Active Sta rt: August 04, 2024 Dr. Lance Gresham MD Admit Provider Active Sta rt: August 04, 2024 Dr. Lance Gresham MD Other Provider Active Sta rt: August 04, 2024 Dr. Mohini Willson MD Attending Provider Active Start: August 04, 2024 Dr. Mohini Willson MD Other Provider Active St art: August 04, 2024 Dr. Negro Johnson DO Other Provider Active St art: August 04, 2024 Team Status: Active Member Role Status Dates Dr. Patt Jones DO Primary Care Provider Active Start: August 05, 2024 Dr. Skyler Yap MD Emergency Provider Active Sta rt: August 05, 2024 Dr. Lance Gresham MD Admit Provider Active Sta rt: August 05, 2024 Dr. Lance Gresham MD Attending Provider Active Start: August 05, 2024 Dr. Lance Gresham MD Other Provider Active Sta rt: August 05, 2024 Dr. Negro Johnson DO Other Provider Active St art: August 05, 2024 Dr. Mohini Willson MD Other Provider Active St art: August 05, 2024 Team Status: Inactive Member Role Status Dates Dr. Patt Jones DO Primary Care Provider Active Start: August 05, 2024 End: August 24, 2024 Dr. Young gN MD Admit Provider Active Star t: August 05, 2024 End: August 24, 2024 Dr. Young Ng MD Attending Provider Active Start: August 05, 2024 End: August 24, 2024 Team Status: Inactive Member Role Status Dates Dr. Patt Jones DO Primary Care Provider Active Start: August 19, 2024 End: August 19, 2024 Dr. Young Ng MD Attending Provider Active Start: August 19, 2024 End: August 19, 2024 Dr. Young Ng MD Referring Provider Active Start: August 19, 2024 End: August 19, 2024 Team Status: Active Member Role Status Dates Dr. Patt Jones DO Primary Care Provider Active Start: August 19, 2024 Dr. Oliver Liu MD Attending Provider Active S tart: August 19, 2024 Dr. Young Ng MD Referring Provider Active Start: August 19, 2024 Team Status: Inactive Member Role Status Dates Dr. Patt Jones DO Primary Care Provider Active Start: September 05, 2024 End: September 05, 2024 Dr. Patt Jones DO Other Provider Active S tart: September 05, 2024 End: September 05, 2024 Dr. Manisha Navas MD Attending Provider Active Start: September 05, 2024 End: September 05, 2024 Dr. Manisha Navas MD Referring Provider Active Start: September 05, 2024 End: September 05, 2024 Team Status: Inactive Member Role Status Dates Dr. Patt Jones DO Primary Care Provider Active Start: September 11, 2024 End: September 11, 2024 Dr. Patt Jones DO Referring Provider Active Start: September 11, 2024 End: September 11, 2024 Dr. Negro Johnson DO Attending Provider Active Start: September 11, 2024 End: September 11, 2024 Team Status: Inactive Member Role Status Dates Dr. Patt Jones DO Primary Care Provider Active Start: September 11, 2024 End: September 11, 2024 Dr. Osmin Pierson MD Attending Provider Active S tart: September 11, 2024 End: September 11, 2024 Team Status: Inactive Member Role Status Dates Dr. Patt Jones DO Primary Care Provider Active Start: November 04, 2024 End: November 04, 2024 Dr. Patt Jones DO Referring Provider Active Start: November 04, 2024 End: November 04, 2024 Dr. Negro Johnson DO Attending Provider Active Start: November 04, 2024 End: November 04, 2024 Team Status: Inactive Member Role Status Dates Dr. Patt Jones DO Primary Care Provider Active Start: November 04, 2024 End: November 04, 2024 Dr. Osmin Pierson MD Attending Provider Active S tart: November 04, 2024 End: November 04, 2024 Team Status: Inactive Member Role Status Dates Dr. Patt Jones DO Primary Care Provider Active Start: November 22, 2024 End: November 22, 2024 Dr. Manisha Navas MD Attending Provider Active Start: November 22, 2024 End: November 22, 2024 Dr. Manisha Navas MD Referring Provider Active Start: November 22, 2024 End: November 22, 2024 Team Status: Active Member Role Status Dates Dr. Patt Jones DO Primary Care Provider Active Team Status: Inactive Member Role Status Dates Dr. Patt Jones DO Primary Care Provider Active Start: January 03, 2025 End: January 03, 2025 Dr. Manisha Navas MD Attending Provider Active Start: January 03, 2025 End: January 03, 2025 Dr. Manisha Navas MD Referring Provider Active Start: January 03, 2025 End: January 03, 2025 Team Status: Inactive Member Role Status Dates Dr. Patt Jones DO Primary Care Provider Active Start: January 12, 2025 End: January 12, 2025 Dr. Ramu Romero MD Emergency Provider Active Start: January 12, 2025 End: January 12, 2025 Team Status: Inactive Member Role Status Dates Dr. Patt Jones DO Primary Care Provider Active Start: January 12, 2025 End: January 12, 2025 Dr. Ramu Romero MD Attending Provider Active Start: January 12, 2025 End: January 12, 2025 Dr. Ramu Romero MD Emergency Provider Active Start: January 12, 2025 End: January 12, 2025 Team Status: Inactive Member Role Status Dates Dr. Patt Jones DO Primary Care Provider Active Start: January 16, 2025 End: January 16, 2025 Dr. Patt Jones DO Attending Provider Active Start: January 16, 2025 End: January 16, 2025 Dr. Patt Jones DO Referring Provider Active Start: January 16, 2025 End: January 16, 2025 Team Status: Inactive Member Role Status Dates Dr. Patt Jones DO Primary Care Provider Active Start: February 19, 2025 End: February 19, 2025 Dr. Patt Jones DO Attending Provider Active Start: February 19, 2025 End: February 19, 2025 Dr. Patt Jones DO Referring Provider Active Start: February 19, 2025 End: February 19, 2025 Team Status: Active Member Role/Relationship Status Dates Dr. Patt Jones DO Primary Care Provider Active Team Status: Inactive Member Role/Relationship Status Dates Dr. Patt Jones DO Primary Care Provider Active Start: November 22, 2024 End: November 22, 2024 Dr. Manisha Navas MD Attending Provider Active Start: November 22, 2024 End: November 22, 2024 Dr. Manisha Navas MD Referring Provider Active Start: November 22, 2024 End: November 22, 2024 Team Status: Inactive Member Role/Relationship Status Dates Dr. Patt Jones DO Primary Care Provider Active Start: January 03, 2025 End: January 03, 2025 Dr. Manisha Navas MD Attending Provider Active Start: January 03, 2025 End: January 03, 2025 Dr. Manisha Navas MD Referring Provider Active Start: January 03, 2025 End: January 03, 2025 Team Status: Inactive Member Role/Relationship Status Dates Dr. Patt Jones DO Primary Care Provider Active Start: January 12, 2025 End: January 12, 2025 Dr. Ramu Romero MD Attending Provider Active Start: January 12, 2025 End: January 12, 2025 Dr. Ramu Romero MD Emergency Provider Active Start: January 12, 2025 End: January 12, 2025 Team Status: Inactive Member Role/Relationship Status Dates Dr. Patt Jones DO Primary Care Provider Active Start: January 16, 2025 End: January 16, 2025 Dr. Patt Jones DO Attending Provider Active Start: January 16, 2025 End: January 16, 2025 Dr. Patt Jones DO Referring Provider Active Start: January 16, 2025 End: January 16, 2025 Team Status: Inactive Member Role/Relationship Status Dates Dr. Patt Jones DO Primary Care Provider Active Start: February 19, 2025 End: February 19, 2025 Dr. Patt Jones DO Attending Provider Active Start: February 19, 2025 End: February 19, 2025 Dr. Patt Jones DO Referring Provider Active Start: February 19, 2025 End: February 19, 2025 Team Status: Active Member Role/Relationship Status Dates Dr. Patt Jones DO Primary Care Provider Active Start: March 10, 2025 Nerissa Valenzuela PA, PA Attending Provider Active Start: March 10, 2025 Nerissa Valenzuela PA, PA Referring Provider Active Start: March 10, 2025 Team Status: Inactive Member Role/Relationship Status Dates Dr. Patt Jones DO Primary Care Provider Active Start: March 10, 2025 End: March 10, 2025 Dr. Patt Jones DO Referring Provider Active Start: March 10, 2025 End: March 10, 2025 Nerissa Valenzuela PA, PA Attending Provider Active Start: March 10, 2025 End: March 10, 2025 Team Status: Inactive Member Role/Relationship Status Dates Dr. Patt Jones DO Primary Care Provider Active Start: March 10, 2025 End: March 10, 2025 Nerissa Valenzuela PA, PA Attending Provider Active Start: March 10, 2025 End: March 10, 2025 Nerissa Valenzuela PA, PA Referring Provider Active Start: March 10, 2025 End: March 10, 2025 Team Status: Inactive Member Role/Relationship Status Dates Dr. Patt Jones DO Primary Care Provider Active Start: March 21, 2025 End: March 21, 2025 Dr. Patt Jones DO Referring Provider Active Start: March 21, 2025 End: March 21, 2025 Andrés JIMENEZ PA Attending Provider Active Sta rt: March 21, 2025 End: March 21, 2025 Team Status: Inactive Member Role/Relationship Status Dates Dr. Patt Jones DO Primary Care Provider Active Start: January 03, 2025 End: January 03, 2025 Dr. Manisha Navas MD Attending Provider Active Start: January 03, 2025 End: January 03, 2025 Dr. Manisha Navas MD Referring Provider Active Start: January 03, 2025 End: January 03, 2025 Team Status: Inactive Member Role/Relationship Status Dates Dr. Patt Jones DO Primary Care Provider Active Start: January 12, 2025 End: January 12, 2025 Dr. Ramu Romero MD Attending Provider Active Start: January 12, 2025 End: January 12, 2025 Dr. Ramu Romero MD Emergency Provider Active Start: January 12, 2025 End: January 12, 2025 Team Status: Inactive Member Role/Relationship Status Dates Dr. Patt Jones DO Primary Care Provider Active Start: January 16, 2025 End: January 16, 2025 Dr. Patt Jones DO Attending Provider Active Start: January 16, 2025 End: January 16, 2025 Dr. Patt Jones DO Referring Provider Active Start: January 16, 2025 End: January 16, 2025 Team Status: Inactive Member Role/Relationship Status Dates Dr. Patt Jones DO Primary Care Provider Active Start: February 19, 2025 End: February 19, 2025 Dr. Patt Jones DO Attending Provider Active Start: February 19, 2025 End: February 19, 2025 Dr. Patt Jones DO Referring Provider Active Start: February 19, 2025 End: February 19, 2025 Team Status: Inactive Member Role/Relationship Status Dates Dr. Patt Jones DO Primary Care Provider Active Start: March 10, 2025 End: March 10, 2025 Nerissa JIMENEZ PA Attending Provider Active Start: March 10, 2025 End: March 10, 2025 Nerissa JIMENEZ, PA Referring Provider Active Start: March 10, 2025 End: March 10, 2025 Team Status: Inactive Member Role/Relationship Status Dates Dr. Patt Jones DO Primary Care Provider Active Start: March 10, 2025 End: March 10, 2025 Dr. Patt Jones DO Referring Provider Active Start: March 10, 2025 End: March 10, 2025 Nerissa JIMENEZ, PA Attending Provider Active Start: March 10, 2025 End: March 10, 2025 Team Status: Inactive Member Role/Relationship Status Dates Dr. Patt Jones DO Primary Care Provider Active Start: March 21, 2025 End: March 21, 2025 Dr. Patt Jones DO Referring Provider Active Start: March 21, 2025 End: March 21, 2025 Andrés JIMENEZ PA Attending Provider Active Sta rt: March 21, 2025 End: March 21, 2025 Team Status: Inactive Member Role/Relationship Status Dates Dr. Patt Jones DO Primary Care Provider Active Start: April 02, 2025 End: April 02, 2025 Dr. Brady Marin , DO Emergency Provider Activ e Start: April 02, 2025 End: April 02, 2025 Team Status: Inactive Member Role/Relationship Status Dates Dr. Patt Jones DO Primary Care Provider Active Start: April 02, 2025 End: April 02, 2025 Dr. Brady Marin DO Attending Provider Activ e Start: April 02, 2025 End: April 02, 2025 Dr. Brady Marin DO Emergency Provider Activ e Start: April 02, 2025 End: April 02, 2025 Team Status: Inactive Member Role/Relationship Status Dates Dr. Patt Jones DO Primary Care Provider Active Start: April 14, 2025 End: April 14, 2025 Dr. Manisha Navas MD Attending Provider Active Start: April 14, 2025 End: April 14, 2025 Dr. Manisha Navas MD Referring Provider Active Start: April 14, 2025 End: April 14, 2025 INFORMATION SOURCE (unrecogn ized section and content) DATE CREATED AUTHOR 11/21/2022 [facility] DATE CREATED AUTHOR AUTHOR'S ORGANIZ ATION 04/20/2025 [facility] FOR RECORDS PERTAINING TO PATIENTS WHO ARE OR HAVE BEEN ENROLLED IN A CHEMICAL DEPENDENCY/SUBSTANCEABUSE PROGRAM, SOME INFORMATION MAY BE OMITTED. This clinical summary was aggregated from multiple sources. Caution should be exercised in using it in the provision of clinical care. This summary normalizes information from multiple sources, and as a consequence, information in this document may materially change the coding, format and clinical context of patient data. In addition, data may be omitted in some cases. CLINICAL DECISIONS SHOULD BE BASED ON THE PRIMARY CLINICAL RECORDS. [employer] provides no warranty or guarantee of the accuracy or completeness of information in this document.
[2025-04-27] MEDS: 0.9% Normal Saline (1000mL) 1,000 ML 999 ML IV ×2 (12:35→14:15)
[2025-04-27 12:36] LABS: Hematocrit 39.6 % (37-47); Hemoglobin 13.2 g/dL (12.0-15.0); Immature Granulocytes Count 0.070 X10^3/uL (0.0-0.0); Mean Corp Hgb Conc 33.3 g/dL (32-36); Mean Corpuscular Volume 90.4 fL (81-99); Mean Platelet Vol. 9.7 fl (6.2-12.0); NRBC Flagged by Analyzer 0 % (0-5); POSITIVE DIFFERENTIAL YES; POSITIVE MORPHOLOGY YES; Platelet Count 238 K/mm3 (150-450); RBC Distribution Width CV 14.7 % (11.6-14.6); RBC Distribution Width SD 48.4 fl (35.1-43.9); Red Blood Count 4.38 M/mm3 (4.2-5.4); White Blood Count 9.4 K/mm3 (4.4-11.0)
[2025-04-27 13:02] LABS: Differential Indicated SCAN CRITERIA MET
[2025-04-27 13:03] LABS: AST(SGOT) 19 U/L (<=31); Alanine Aminotransfer ALT/SGPT 20 U/L (<=34); Albumin, Serum 3.9 g/dL (3.4-4.8); Alkaline Phosphatase 89 U/L (35-104); Anion Gap 16 (5-15); BUN 43 mg/dL (4-19); BUN/Creat Ratio 19.1 RATIO (10-20); Calcium,Total 9.8 mg/dL (7.6-11.0); Carbon Dioxide 20.6 mmol/L (21.0-32.0); Chloride 97 mmol/L (98-108); Globulin 3.2 g/dL (2.2-4.2); Glucose 104 mg/dL (70-99); Lipase 51 U/L (13-75); Potassium 3.6 mmol/L (3.3-5.1)
[2025-04-27 13:13] VITALS: BMI 29.8
[2025-04-27 13:54] VITALS: BP 141/100; PULSE 91; RESP 16; O2SAT 98
--- NOTE | 2025-04-27 14:09 | PCM.HP.STD ---
HPI - General General Date of Admission: 04/27/25 Date of Service: 04/27/25 Chief Complaint: Diarrhea HPI Narrative ORION CONNELL, is a 70 F who presented to [facility] ED on 04/27/2025 with diarrhea. Patient was recently found in the ED here on 04/02 to be positive for C. difficile. CT abdomen/pelvis at that time showed pancolitis. However, she was stable so she was able to be discharged home on p.o. vancomycin. She completed a 10-day course of vancomycin at home with resolution of her diarrhea. However, she again began to have diarrhea about 3 days ago and has been worsening, and she is concerned that she has C. difficile again. In the ED, stool sample was obtained and again showed toxigenic C. difficile. CT abdomen pelvis showed diffuse submucosal thickening and edema in multiple bowel loops in the terminal ileum down through the sigmoid colon consistent with diffuse colitis/enteritis. Labs otherwise notable for creatinine 2.25 (baseline around 0.8), BUN 43, lactic acid 2.2. She was given 3 L of IV fluids and a dose of p.o. vancomycin in the ED, and hospitalist was contacted for admission. I saw the patient at bedside in the ED, was present. Patient was mildly fatigued appearing but otherwise laying back comfortably in bed, conversing normally, in no acute distress. Noted that she does feel somewhat better after the IV fluids. Has not had a bowel movement now for the past few hours. Denies any fevers or chills. Denies any abdominal pain or discomfort. No other acute concerns at this time. Will be admitted for further management. [facility] Medical History Postoperative anemia Wears glasses Wears dentures Loss of hearing Marijuana use Walker as ambulation aid PONV (postoperative nausea and vomiting) Shortness of breath on exertion Non-smoker Leg cramps History of edema Cochlear implant in place Tonsillectomy planned Hx of cataract Home Medications ?Medication ?Instructions ?Recorded ?Last Taken ?Type folic acid 1 mg tablet 1 mg PO DAILYCM Supplement #0 tabs 08/05/24 01/12/25 Rx acetaminophen 500 mg tablet 1,000 mg (2 x 500 mg) PO Q8 #0 tabs 08/19/24 01/11/25 Rx methotrexate sodium 2.5 mg tablet 15 mg (6 x 2.5 mg) PO We@1000 #0 08/19/24 01/08/25 Rx tabs cholecalciferol (vitamin D3) 125 250 mcg PO DAILY 01/12/25 01/12/25 History mcg (5,000 unit) capsule tramadol 50 mg tablet 50 mg PO 4X/DAY PRN PRN pain 4 01/12/25 Unknown Rx days #15 tabs Allergy/AdvReac Type Severity Reaction Status Date / Time latex AdvReac Intermediate Rash Verified 04/27/25 11:26 Surgical History History of revision of total replacement of right hip joint History of hysterectomy History of carpal tunnel release of both wrists Hx of removal of cyst Hx of arthroscopy of right knee Hx of cholecystectomy Social History household members: spouse Smoking Status: Never smoker alcohol intake: never substance use type: does not use ROS Constitutional Constitutional: Reports fatigue; Denies chills, fever(s) or weakness Cardiovascular Cardiovascular: Denies chest pain Respiratory/Chest Respiratory/Chest: Denies shortness of breath at rest Gastrointestinal Gastrointestinal: Reports diarrhea and nausea; Denies abdominal pain, constipation or vomiting Musculoskeletal Musculoskeletal: Denies arthralgias or myalgias Neurologic Neurologic: Denies dizziness, focal weakness or headache(s) Vital Signs Vital Signs Vital Signs: 04/27/25 11:24 04/27/25 13:54 Temperature 98.1 F Temperature Source Oral Pulse Rate 101 H 91 Respiratory Rate 16 16 Blood Pressure 133/63 H 141/100 H Blood Pressure Mean 86 113 Pulse Ox 99 98 Oxygen Delivery Method Room Air Room Air Weight Weight: 67.086 kg Body Mass Index (BMI) 29.8 Physical Exam Const alert, oriented x3, no apparent distress and average body habitus Constitutional Narrative: Elderly female, mildly fatigued appearing but otherwise laying back comfortably in bed, conversing normally, in no acute distress. General Appearance: cooperative and comfortable HEENT normocephalic, head/scalp atraumatic, hearing grossly normal bilaterally, nasal mucous membranes and turbinates normal and moist oral mucous membranes Eyes PERRL, EOMs intact bilaterally and conjunctivae normal Neck full ROM Chest inspection of chest normal Resp normal respiratory effort, normal air movement, no use of accessory muscles and clear to auscultation bilaterally Cardio regular rate, regular rhythm, no murmurs and peripheral pulses 2+ throughout GI normal to inspection, nondistended, normoactive bowel sounds, soft to palpation, non-tender and non-distended Back/Spine normal ROM Extremity normal to inspection, full ROM and no pedal edema Skin no rashes or lesions noted Psych mental status grossly normal Results Lab / Micro Data 04/27/25 12:27 04/27/25 12:27 Labs: Laboratory Results - last 24 hr 04/27/25 12:27: WBC 9.4, RBC 4.38, Hgb 13.2, Hct 39.6, MCV 90.4, MCH 30.1, MCHC 33.3, RDW Std Deviation 48.4 H, RDW Coeff of Oly 14.7 H, Plt Count 238, MPV 9.7, Immature Gran % (Auto) 0.700, Neut % (Auto) 71.3 H, Lymph % (Auto) 10.6 L, [place] % (Auto) 16.1 H, Eos % (Auto) 0.3, Baso % (Auto) 1.0, Absolute Neuts (auto) 6.7, Absolute Lymphs (auto) 1.00, Nucleated RBC % 0, Differential Comment , Sodium 133, Potassium 3.6, Chloride 97 L, Carbon Dioxide 20.6 L, Anion Gap 16 H, BUN 43 H, Creatinine 2.25 H, Est GFR (MDRD) Non-Af 23 L, BUN/Creatinine Ratio 19.1, Glucose 104 H, Lactic Acid 2.2 H*, Calcium 9.8, Total Bilirubin 1.25, AST 19, ALT 20, Alkaline Phosphatase 89, Total Protein 7.1, Albumin 3.9, Globulin 3.2, Albumin/Globulin Ratio 1.2, Lipase 51 Micro: Microbiology 04/27/25 11:35 Stool Clostridioides difficile (PCR) - Final Imaging Radiology Impression Abdomen/Pelvis CT 04/27/25 11:44 IMPRESSION: Diffuse submucosal thickening and submucosal edema in multiple bowel loops particularly of note in the terminal ileum and cecum and throughout the mid and distal sigmoid consistent with diffuse colitis/enteritis. No perforation or abscess Stable poorly defined nonenhancing hypoattenuated lesion within the left lobe of the liver No free fluid, air, or suspicious adenopathy Extensive degenerative bony changes with multiple chronic compression fractures in the visualized thoracic and lumbar spine Reading Location: [facility] Assessment & Plan Assessment/Plan (1) C. difficile colitis: (2) Acute kidney injury: PLAN: Plan Patient is a 70-year-old female who presented to [facility] ED on 04/27/2025 with diarrhea. 1. Recurrent C. difficile infection ? Admit under inpatient status to PCU. Initial C. difficile diagnosis in ED on 04/02. She had been on multiple antibiotic courses per her PCP for diverticulitis that presumably led to her C. difficile infection. CT abdomen pelvis showed pancolitis at that time but she was otherwise stable and discharged home from the ED on p.o. vancomycin. Completed 10-day course of p.o. vancomycin with resolution of diarrhea. Unfortunately had recurrence of diarrhea about 3 days prior to this admission. Stool testing again positive for toxigenic C. difficile. CT abdomen pelvis again consistent with pancolitis. Will treat with p.o. vancomycin (fidaxomicin is not on formulary here) and per the guidelines will need a prolonged vancomycin taper on discharge. Will hold on GI consult for now but can consider as needed. 2. DIMA ? Creatinine 2.25 on admit, baseline around 0.8. Presumed prerenal due to GI losses as above. Given 3 L of IV fluids on admission, follow-up a.m. BMP and monitor urine output. Chronic medical conditions: ? Chronic pain syndrome: OARRS reviewed and patient has been filling home tramadol regularly. Continue home tramadol 4 times daily as needed. ? Rheumatoid arthritis: Stable. Continue home methotrexate weekly on Wednesdays. ? History of right hip fracture s/p right knee replacement complicated by right periprosthetic intertrochanteric fracture with surgical revision: Surgical revision was done by orthopedics here in July 2024. Patient reports no issues since then. DVT prophylaxis: Heparin subcu CODE STATUS: Full code, verified Expected disposition: Home, TBD Total clinical time spent by myself addressing the patient's medical issues, reviewing all the data, and collaborating with patient's care team: 75 minutes. Charges/Coding Visit Charges Inpatient E&M: 00531 Init Hosp L3
[2025-04-27] MEDS: 0.9% Normal Saline (500mL Bag) 500 ML 999 ML IV (14:15)
[2025-04-27 15:54] VITALS: BP 141/100; PULSE 91; RESP 16; TEMP 36.4; O2SAT 98
[2025-04-27 16:03] VITALS: BMI 29.0
--- NOTE | 2025-04-27 16:11 | NURSING ---
Pt in room. Education given regarding Cdiff/isolation precautions, importance of wearing down and gloves, disposing of the latter, and washing hands after gown/gloves are discarded. Also made patient's aware that he may not come out of the room with his down and gloves, must take them off anytime he leaves the room.
[2025-04-27 16:22] VITALS: BP 160/78; PULSE 91; RESP 17; TEMP 36.9; O2SAT 100
[2025-04-27 16:32] LABS: Reflex Lactate? Y
[2025-04-27] MEDS: Ensure Plus High Protein 120 ML LIQUID PO (18:01)
[2025-04-27] MEDS: Vancomycin 125 MG/5 ML Susp PO.SYRINGE PO ×2 (18:02→23:03)
[2025-04-27 22:55] VITALS: BP 162/72; PULSE 104; RESP 16; TEMP 37.2; O2SAT 97
[2025-04-27] MEDS: Heparin Injection (Vial) 5,000 UNIT/ML VIAL 5000 UNIT SC (23:03)
[2025-04-27] MEDS: 0.9% Saline Lock 10 ML Syringe IV (23:03)
[2025-04-28] VITALS (7 sets, daily range): BP systolic 139–172; BP diastolic 59–98; PULSE 86–94; RESP 14–18; TEMP 36.7–37.4; O2SAT 94–100
[2025-04-28] MEDS: 0.9% Saline Lock 10 ML Syringe IV (03:12)
[2025-04-28] MEDS: Heparin Injection (Vial) 5,000 UNIT/ML VIAL 5000 UNIT SC (05:35)
[2025-04-28] MEDS: Vancomycin 125 MG/5 ML Susp PO.SYRINGE PO ×2 (05:35→11:04)
[2025-04-28 07:26] LABS: Hematocrit 34.0 % (37-47); Hemoglobin 11.5 g/dL (12.0-15.0); Mean Corp Hgb Conc 33.8 g/dL (32-36); Mean Corpuscular Volume 89.5 fL (81-99); Mean Platelet Vol. 9.5 fl (6.2-12.0); Platelet Count 210 K/mm3 (150-450); RBC Distribution Width CV 14.6 % (11.6-14.6); RBC Distribution Width SD 47.1 fl (35.1-43.9); Red Blood Count 3.80 M/mm3 (4.2-5.4); White Blood Count 7.2 K/mm3 (4.4-11.0)
[2025-04-28 08:16] LABS: Anion Gap 13 (5-15); BUN 23 mg/dL (4-19); BUN/Creat Ratio 28.0 RATIO (10-20); Calcium,Total 8.9 mg/dL (7.6-11.0); Carbon Dioxide 19.1 mmol/L (21.0-32.0); Chloride 103 mmol/L (98-108); Estimated Creatinine Clearance 52.86 ml/min (50-250); Glucose 114 mg/dL (70-99); Potassium 3.4 mmol/L (3.3-5.1)
[2025-04-28] MEDS: Ensure Plus High Protein 120 ML LIQUID PO ×2 (08:38→11:04)
[2025-04-28] MEDS: Cholecalciferol (Vit D3) 125 MCG CAPSULE (5,000 UNITS) 250 MCG PO (08:39)
--- NOTE | 2025-04-28 10:15 | CASEMGMT ---
RN CM Face to Face with patient for initial transition planning/care coordination assessment. RN CM introduced self and role at [facility]. Patient lying in bed, alert and oriented. Patient willing to participate in assessment and is able to answer all questions appropriately. Care providers, pharmacy, and demographics verified. Strata: 2 PCP: Benita Specialists: Yosef ship's engineer; anahi Johnson Preferred Pharmacy: [facility] Insurance: [facility] Prescription Benefit: yes Living Will/HPOA: none LNOK: Living Arrangements: Patient lives with , daughter, and DINO in a split level home with 6 step and railing between levels. Patient states she is independent at home. Transportation: self, DME/HHC: Patient has shower chair, raised toilet, cane, grab bars, and walker at home. Patient states she has had [facility] in the past. Patient wishes to discharge home, denies need for home health at this time. Patient states she has no further needs or concerns at this time. CM to follow for discharge planning needs that may arise. Disposition Plan: Patient to discharge home with family support and follow-up plans in place. Laura CRUZ, RN, CM
--- NOTE | 2025-04-28 12:33 | DCINST_ITS ---
Discharge Instructions DC O2, CPAP, BIPAP needs Home O2 Discharge instructions: No Dressing / Incision Discharge Activity: Return to Normal Activity Dressing / Incision Call your doctor if you observe: Fever of 101 or Higher, Shortness of breath, Dizziness, Fainting spells, Swelling in the ankles, Chest pain and Increased palpitations (irregular heartbeat) Follow Up Care Test Results: Test results from this visit will be discussed in further detail at your follow- up appointment, if applicable. Discharge Plan Admission Admit Date/Time: 04/27/25 14:13 Attending Provider: Jonathan Denney Primary Care Provider: Patt Joy Consulting Providers: Anand Contreras Discharge Orders/Prescriptions Prescriptions: New vancomycin 125 mg capsule 125 mg PO Q6H Qty: 68 0RF Rx Instructions: Take 1 tablet 4 times a day for 10 days then 1 tablet twice a day for 7 days then 1 tablet daily for 7 days then 1 tablet every other day for 14 days Continued folic acid 1 mg Tablet 1 mg PO DAILYCM Qty: 0 0RF acetaminophen 500 mg Tablet 1,000 mg PO Q8 Qty: 0 0RF methotrexate sodium 2.5 mg Tablet 15 mg PO We@1000 Qty: 0 0RF cholecalciferol (vitamin D3) 125 mcg (5,000 unit) capsule 250 mcg PO DAILY tramadol 50 mg tablet 50 mg PO 4X/DAY PRN PRN (Reason: pain) 4 Days Qty: 15 0RF Referrals / Follow Up: Patt Joy DO [Primary Care Provider] - Within 1 Week Disposition Disposition (needs filled in before D/C Order can be placed): Home, Self Care
--- NOTE | 2025-04-28 13:08 | PCM.DC.SUM ---
Providers Date of Admission: 04/27/25 Primary Care Physician: Dr. Patt Joy DO Reason For Visit: RECURRENT C DIFF Diagnosis Discharge Diagnosis (1) C. difficile colitis: Status: Acute Code(s): A04.72 - Enterocolitis due to Clostridium difficile, not specified as recurrent (2) Acute kidney injury: Status: Acute Code(s): N17.9 - Acute kidney failure, unspecified Medications at Discharge Home Medications folic acid 1 mg tablet 1 mg PO DAILYCM Supplement #0 tabs 08/05/24 acetaminophen 500 mg tablet 1,000 mg (2 x 500 mg) PO Q8 pain #0 tabs 08/19/24 methotrexate sodium 2.5 mg tablet 15 mg (6 x 2.5 mg) PO We@1000 #0 tabs 08/19/24 cholecalciferol (vitamin D3) 125 mcg (5,000 unit) capsule 250 mcg PO DAILY 01/12/25 tramadol 50 mg tablet 50 mg PO 4X/DAY PRN PRN pain 4 days #15 tabs 01/12/25 vancomycin 125 mg capsule 125 mg PO Q6H #68 caps 04/28/25 Hospital Course Operations None Procedures None Summary of Care Provided Minutes Spent on Discharge: 36 Hospital Course: Per HPI: ORION CONNELL, is a 70 F who presented to [facility] ED on 04/27/2025 with diarrhea. Patient was recently found in the ED here on 04/02 to be positive for C. difficile. CT abdomen/pelvis at that time showed pancolitis. However, she was stable so she was able to be discharged home on p.o. vancomycin. She completed a 10-day course of vancomycin at home with resolution of her diarrhea. However, she again began to have diarrhea about 3 days ago and has been worsening, and she is concerned that she has C. difficile again. In the ED, stool sample was obtained and again showed toxigenic C. difficile. CT abdomen pelvis showed diffuse submucosal thickening and edema in multiple bowel loops in the terminal ileum down through the sigmoid colon consistent with diffuse colitis/enteritis. Labs otherwise notable for creatinine 2.25 (baseline around 0.8), BUN 43, lactic acid 2.2. She was given 3 L of IV fluids and a dose of p.o. vancomycin in the ED, and hospitalist was contacted for admission. I saw the patient at bedside in the ED, was present. Patient was mildly fatigued appearing but otherwise laying back comfortably in bed, conversing normally, in no acute distress. Noted that she does feel somewhat better after the IV fluids. Has not had a bowel movement now for the past few hours. Denies any fevers or chills. Denies any abdominal pain or discomfort. No other acute concerns at this time. Will be admitted for further management. Hospital Course: 1. Recurrent C. difficile colitis with DIMA?70-year-old female completed 10-day course of p.o. vancomycin beginning of April for her first episode of C. difficile colitis. She presents back to the hospital with recurrent diarrhea and was started back on p.o. vancomycin. She has had significant improvement and states that her diarrhea has improved and she no longer has any abdominal pain. C. difficile testing did come back positive for the PCR and antigen but the toxin was negative however given the continued evidence of colitis on the CT scan it was prudent to continue treatment with oral vancomycin. Given that this is a recurrence and at the recurrence happen so quickly, we will continue with the vancomycin taper she will receive 125 mg p.o. 4 times daily for 10 days and then twice daily for 7 days and then daily for 7 days and then every other day for 14 days. I do recommend that she follow-up with her PCP as well as infectious disease as an outpatient. Her creatinine at baseline is around 0.8, on admission yesterday was 2.25, she has received aggressive IV fluids and her creatinine today has normalized back to her baseline. I did discuss with her the possibility for discharge and she requested to be discharged since she was feeling much better today given her improvement was faster than anticipated. She expressed understanding of the risk and benefits of going home and would like to go home today. 2. Chronic pain syndrome, rheumatoid arthritis, her chronic medical conditions which complicate her care. Her home medications were continued where appropriate Physical Exam Narrative General: Alert, Oriented x3, Cooperative, No apparent distress HEENT: Atraumatic, PERRLA, EOMI, Normocephalic Oral: Moist Mucosa Neck: Supple, No JVD Lungs: Clear to auscultation, Normal air movement, No rhonchi, No wheeze, No rales Cardiovascular: Regular rate, Regular Rhythm, Normal S1, Normal S2, No murmurs Abdomen: Soft, Non Tender, Non-Distended, No Hepato-splenomegaly Extremities: No edema, Capillary Refill Less than 3 Seconds Skin: No rashes, No breakdown Musculoskeletal: No Tenderness to Palpation of Joints or Extremities Neurological: No focal neurological deficits, Motor Exam 5/5 strength throughout, Sensory exam intact to light touch and pain Psych/Mental Status: Normal Affect, Appropriate Weight / BMI Weight Weight: 143 lb 8.335 oz Body Mass Index (BMI) 29.0 ABG / Lab / Microbiology Data 04/28/25 07:11 04/28/25 07:11 Laboratory: Laboratory Results - last 24 hr 04/27/25 12:27: Lactic Acid 2.2 H* 04/27/25 16:30: Lactic Acid 2.1 H* 04/28/25 07:11: WBC 7.2, RBC 3.80 L, Hgb 11.5 L, Hct 34.0 L, MCV 89.5, MCH 30.3, MCHC 33.8, RDW Std Deviation 47.1 H, RDW Coeff of Oly 14.6, Plt Count 210, MPV 9.5, Sodium 135, Potassium 3.4, Chloride 103, Carbon Dioxide 19.1 L, Anion Gap 13, BUN 23 H, Creatinine 0.81, Estim Creat Clear Calc 52.86, Est GFR (MDRD) Non-Af 78, BUN/Creatinine Ratio 28.0 H, Glucose 114 H, Calcium 8.9 Microbiology: Microbiology 04/27/25 11:35 Stool C. difficile GDH Antigen & Toxins - Final 04/27/25 11:35 Stool Clostridioides difficile (PCR) - Final Radiography Diagnostic Testing: Radiology Impression Abdomen/Pelvis CT 04/27/25 11:44 IMPRESSION: Diffuse submucosal thickening and submucosal edema in multiple bowel loops particularly of note in the terminal ileum and cecum and throughout the mid and distal sigmoid consistent with diffuse colitis/enteritis. No perforation or abscess Stable poorly defined nonenhancing hypoattenuated lesion within the left lobe of the liver No free fluid, air, or suspicious adenopathy Extensive degenerative bony changes with multiple chronic compression fractures in the visualized thoracic and lumbar spine Reading Location: [facility] D/C Instructions Call your doctor if you observe: Fever of 101 or Higher, Shortness of breath, Dizziness, Fainting spells, Swelling in the ankles, Chest pain and Increased palpitations (irregular heartbeat) DC O2, CPAP, BIPAP Needs Home O2 Discharge instructions: No Meaningful Use Info Meaningful Use Meaningful Use Diagnoses (Choose all that apply): None applicable Discharge Plan Admission Admit Date/Time: 04/27/25 14:13 Attending Provider: Jonathan Denney Primary Care Provider: Patt Joy Consulting Providers: Anand Contreras Discharge Orders/Prescriptions Prescriptions: New vancomycin 125 mg capsule 125 mg PO Q6H Qty: 68 0RF Rx Instructions: Take 1 tablet 4 times a day for 10 days then 1 tablet twice a day for 7 days then 1 tablet daily for 7 days then 1 tablet every other day for 14 days Continued folic acid 1 mg Tablet 1 mg PO DAILYCM Qty: 0 0RF acetaminophen 500 mg Tablet 1,000 mg PO Q8 Qty: 0 0RF methotrexate sodium 2.5 mg Tablet 15 mg PO We@1000 Qty: 0 0RF cholecalciferol (vitamin D3) 125 mcg (5,000 unit) capsule 250 mcg PO DAILY tramadol 50 mg tablet 50 mg PO 4X/DAY PRN PRN (Reason: pain) 4 Days Qty: 15 0RF Referrals / Follow Up: Patt Joy DO [Primary Care Provider] - Within 1 Week Jose Manuel Jaramillo MD [Med Staff - Active Staff] - Within 1 Month Disposition Disposition (needs filled in before D/C Order can be placed): Home, Self Care Charges/Coding Visit Charges Inpatient E&M: 51255 Disch Hosp >30min
--- NOTE | 2025-04-28 14:17 | PHA.DC_ITS ---
Pharmacy [facility] Counseling Pharmacy Service has performed discharge medication reconciliation and counseling for this patient. Patient in contact precautions, counseled via telephone. 1. VANCOMYCIN 125MG PO Q6H X 10 DAYS, THEN 125MG PO BID X 7 DAYS, THEN DAILY X 7 DAYS, THEN QODAY X 14 DAYS The patient's discharge medication list was reviewed for discrepancies and discrepancies were resolved. The patient was counseled on the following discharge medications and changes in medications for homegoing were reviewed. The Reason for Use, instructions for use, and potential side effects were reviewed for all new medications. The patient's questions regarding all of their medications were answered. The patient was able to verbally demonstrate an understanding of their discharge medications. Medications at Discharge Home Medications folic acid 1 mg tablet 1 mg PO DAILYCM Supplement #0 tabs 08/05/24 acetaminophen 500 mg tablet 1,000 mg (2 x 500 mg) PO Q8 pain #0 tabs 08/19/24 methotrexate sodium 2.5 mg tablet 15 mg (6 x 2.5 mg) PO We@1000 #0 tabs 08/19/24 cholecalciferol (vitamin D3) 125 mcg (5,000 unit) capsule 250 mcg PO DAILY 01/12/25 tramadol 50 mg tablet 50 mg PO 4X/DAY PRN PRN pain 4 days #15 tabs 01/12/25 vancomycin 125 mg capsule 125 mg PO Q6H #68 caps 04/28/25
--- NOTE | 2025-04-28 15:21 | CASEMGMT ---
IMELDA ELAM called [facility] to hedrick check Vanco capsule prescription. Per [facility], insurance only covers max quantity of 40 tablets. IMELDA ELAM updated hospitalist, new scripts sent to [facility] for coverage. IMELDA ELAM updated [facility] [place], Rajesh confirmed 2 separate prescriptions for dosing and will have patient fill 10 prescription first and return for other prescription when able to fill. IMELDA ELAM updated patient, patient voiced understanding. Patient had no further questions or concerns.
== END 2025-04-28 16:07 | disposition home or self-care (01) | DRG 372 ==
LOC: ED 14:14 → PCU 14:30
PROVIDERS: Admitting Provider Hospitalist; Emergency Provider Emergency Medicine; PCP Internal Medicine; Visit Provider Family Medicine
DX: A04.71 Enterocolitis due to Clostridium difficile, recurrent (principal); N17.9 Acute kidney failure, unspecified; M06.9 Rheumatoid arthritis, unspecified; Z90.710 Acquired absence of both cervix and uterus; G89.4 Chronic pain syndrome; Z96.641 Presence of right artificial hip joint; Z90.49 Acquired absence of other specified parts of digestive tract; Z79.899 Other long term (current) drug therapy; Z79.891 Long term (current) use of opiate analgesic
CPT/HCPCS: 36415; 74177; 80048; 80053; 83605; 83690; 85025; 85027; 87493; 94668; 97802; 99282; Q9967; A4216; J2405

== ENCOUNTER 2025-05-05 15:59 | Emergency (ER) | payer MEDICARE, SELFPAY ==
[2025-05-05 16:00] VITALS: BP 152/71; PULSE 75; RESP 16; TEMP 35.8; O2SAT 100; BMI 28.5
--- NOTE | 2025-05-05 16:25 | EDS_ITS ---
HPI History of Present Illness HPI Narrative: 70-year-old female was leaning over talking and interacting with her granddaughter when she lost her balance fell landed awkwardly on her right shoulder. Planing of pain in the right shoulder. She is right-hand dominant. She is never had a surgery of this shoulder nor she ever broken it. Denies any other injuries. Did not hit her head. She is on no blood thinners. Prior to the fall she was feeling fine. Chief Complaint: Upper Extremity Injury Informant: patient Occured/Mechanism Mechanism/Context: Yes injury and Yes blunt trauma Onset/Context/Timing Onset: Today Context: Sudden Onset Timing: Continuous Quality of Pain: Sharp Current Severity: Moderate Maximum Severity: Moderate Associated Symptoms Associated Symptoms: Negative for Parasthesia, Weakness or Loss of Funtion Narrative Narrative: 70-year-old female fell injured right shoulder. History of being [id number]. Prior similar symptoms: No Recent Illness/Hospitalization: No PFSH PFSH Medical History Postoperative anemia Wears glasses Wears dentures Loss of hearing Marijuana use Walker as ambulation aid PONV (postoperative nausea and vomiting) Shortness of breath on exertion Non-smoker Leg cramps History of edema Cochlear implant in place Tonsillectomy planned Hx of cataract Home Medications ?Medication ?Instructions ?Recorded ?Last Taken ?Type folic acid 1 mg tablet 1 mg PO DAILYCM Supplement # 0 tabs 08/05/24 01/12/25 Rx acetaminophen 500 mg tablet 1,000 mg (2 x 500 mg) PO Q 8 pain 08/19/24 01/11/25 Rx #0 tabs methotrexate sodium 2.5 mg tablet 15 mg (6 x 2.5 mg) P O We@1000 #0 08/19/24 01/08/25 Rx tabs cholecalciferol (vitamin D3) 125 250 mcg PO DAILY 01/0201/12/25 History mcg (5,000 unit) capsule tramadol 50 mg tablet 50 mg PO 4X/DAY PRN PRN pain 4 01/12/25 Unknown Rx days #15 tabs vancomycin 125 mg capsule 125 mg PO BID #28 caps 04/28 Unknown Rx vancomycin 125 mg capsule 125 mg PO Q6H 10 days #40 ca ps 04/28/25 Unknown Rx hydrocodone-acetaminophen 5-325mg 1 tab PO Q4H PRN PRN Pain 4 days 05/05/25 Unknown Rx 5mg-325mg #10 TABLETS Allergy/AdvReac Type Severity Reaction Status Date / Time latex AdvReac Intermediate Rash Verified 05/05/25 16:00 Surgical History History of revision of total replacement of right hip joint History of hysterectomy History of carpal tunnel release of both wrists Hx of removal of cyst Hx of arthroscopy of right knee Hx of cholecystectomy Social History household members: spouse Smoking Status: Never smoker alcohol intake: never substance use type: does not use ROS ROS ED ROS Narrative Denies recent illness. Constitutional Constitutional ED: Denies chills or fever(s) Eyes Eyes: Denies blurry vision ENT ENT ED: Denies ear pain Cardiovascular Cardiovascular: Denies chest pain Respiratory/Chest Respiratory/Chest: Denies cough or dyspnea Gastrointestinal Gastrointestinal: Reports diarrhea and other Details: Currently being treated for C. difficile. On antibiotics. ; Denies abdominal pain Genitourinary Genitourinary ED: Denies dysuria or hematuria Musculoskeletal Musculoskeletal: Denies back pain Integumentary Denies abscess Neurologic Neurologic: Denies headache(s) Psychiatric Psychiatric: Denies anxiety Endocrine Endocrinology: Denies cold intolerance Hematologic/Lymphatic Hematologic/Lymphatic: Denies easy bleeding, easy bruising or lymphadenopathy Allergic/Immunologic Allergic/Immunologic ED: Denies mouth swelling, tongue swelling or urticaria EXAM Physical Exam Narrative Exam Narrative: Well-appearing 70-year-old female send upright in bed bracing her right arm. Vital signs are stable afebrile. is at bedside. H EENT exam pupils round react light. No trauma to her face or scalp nontender no hematoma. Neck nontender. Back and spine nontender. Lungs clear to auscultation bilateral. Heart regular rhythm no murmur. Chest wall ribs nontender. Abdomen soft nontender. Moving all 4 extremities. Hips nontender. Lower extremities left upper extremity nontender normal range of motion she has tenderness in her right shoulder and proximal third of her humerus. There is no deformity. She has limited range of motion due to discomfort. There is no swelling. There is no bruising. There is no effusion. Distal right humerus elbow, forearm wrist and hand are nontender. Normal flexion extension to wrist normal test lead application testing strength. Normal flexion extension. Normal radial pulse. Neurologically she is awake alert. Answering questions following commands. Const Vital Signs: 05/05/25 16:00 Temperature 96.5 F L Temperature Source Temporal Pulse Rate 75 Respiratory Rate 16 Blood Pressure 152/71 H Blood Pressure Mean 98 Pulse Ox 100 Oxygen Delivery Method Room Air Positive well developed; Negative for cachectic, contractures or unkempt General Appearance ED: well developed; Negative for unkempt, cachectic, contractures, cyanotic or diaphoretic Nutritional Appearance: Negative for cachectic HEENT Reports moist mucous membranes normocephalic and atraumatic Eyes PERRL and EOMs intact bilaterally Neck full ROM and supple Chest Wall inspection of chest normal and palpation of chest normal Resp normal respiratory effort and clear to auscultation bilaterally Cardio regular rate, regular rhythm, S1 normal heart sound, S2 normal heart sound and no murmurs GI non-tender, non-distended and no masses Auscultation: normoactive bowel sounds Palpation: soft; Negative for tender, guarding or rebound tenderness present Back/Spine no CVA tenderness Cervical Spine: Negative for cervical spine tenderness Thoracic Spine / Upper Back: Negative for thoracic spinal tenderness Lumbar Spine / Lower Back: Negative for lumbar spinal tenderness Extremity normal to inspection and full ROM Extremity Narrative: Except right shoulder. Tender. No deformity. Limited flexion extension internal/external rotation and ABD adduction due to pain. Right elbow, forearm, wrist and hand nontender. No deformity. Normal radial pulse. Normal test lead application testing strength. Neuro oriented x3, CN's II-XII intact bilaterally, moves all extremities, no focal motor deficits and no sensory deficits noted Sensorium / Orientation: alert, oriented to person, oriented to place and oriented to time Motor Exam: strength 5/5 throughout Psych mental status grossly normal Appearance: Negative for unkempt Skin Lesions: no lesions Rashes: no rashes Trauma: no lacerations or abrasions; Negative for abrasion, laceration or puncture MDM MDM MDM Narrative Medical decision making narrative: 70-year-old female fell injuring her right shoulder/proximal humerus x-rays of each of be obtained. She will be given a [place] for pain. No other injuries. She did not hit her head. She is on no blood thinners. Repeat exam no significant change. I lifted her right arm but she has too much discomfort to hold it up so I cannot really evaluate her rotator cuff. She and I went over x-rays there is no obvious fracture but a lot of of arthritis in the shoulder joint. She has seen Dr. Valencia of orthopedics before. She will follow-up with him. She be written for [employer] for pain. Ice to the shoulder. Sling and follow-up for further evaluation. She understands that she may need additional imaging such as an MRI or CAT scan History & Record Review Discussion w/independent historian: Patient and Family Additional record(s) reviewed:: Prior inpatient record, Prior outpatient record, Prior ED visit and Prior labs Radiography Diagnostic Testing: Right shoulder x-ray, 4 views, interpreted by myself and the radiologist shows no acute fracture or dislocation. Right humerus x-rays, 2 views, interpreted by myself and the radiologist shows no acute fracture or dislocation. Arthritis at the shoulder. I went over the x-rays with the patient. Discharge Plan Triage Chief Complaint: Upper Extremity Injury ED Provider: Ashwin Valencia Dx/Rx/DC Orders Clinical Impression: Fall, Acute shoulder pain, Osteoarthritis Instructions: ED Shoulder Pain, Uncertain Cause Prescriptions: New hydrocodone-acetaminophen 5-325 mg tablet 1 tab PO Q4H PRN PRN (Reason: Pain) 4 Days Qty: 10 0RF No Action folic acid 1 mg Tablet 1 mg PO DAILYCM Qty: 0 0RF acetaminophen 500 mg Tablet 1,000 mg PO Q8 Qty: 0 0RF methotrexate sodium 2.5 mg Tablet 15 mg PO We@1000 Qty: 0 0RF cholecalciferol (vitamin D3) 125 mcg (5,000 unit) capsule 250 mcg PO DAILY tramadol 50 mg tablet 50 mg PO 4X/DAY PRN PRN (Reason: pain) 4 Days Qty: 15 0RF vancomycin 125 mg capsule 125 mg PO Q6H 10 Days Qty: 40 0RF vancomycin 125 mg capsule 125 mg PO BID Qty: 28 0RF Rx Instructions: Start after 10 day course is completed. Take 1 tablet twice daily for 7 days, then 1 tablet daily for 7 days and then 1 tablet every other day for 14 days Primary Care Provider: Patt Joy Referrals: Negro Johnson DO [Med Staff - Active Staff] - As soon as possible Benita,Patt, DO [Primary Care Provider] - Activity Restrictions/Additional Instructions: When you fell you obviously injured your shoulder. This could all be pain from just the fall and your arthritis in your shoulder. At this time there is no obvious break on the x-ray. Follow-up with your orthopedic physician Dr. Negro Johnson for further evaluation. You may or may not have torn your rotator cuff we cannot assess at this time due to the pain. He may need to do further imaging such as a either an MRI or a CAT scan of his is not improving. Ice to your shoulder. Sling for comfort. You can take it out of the sling tho ugh to move it to keep it from getting stiff. [place] for pain. Print Language: [place] Disposition Disposition: Home, Self Care
[2025-05-05] MEDS: HYDROcodone Bitartrate/Apap 5/325 Tablet PO (16:34)
--- OUTSIDE RECORDS SUMMARY | 2025-05-05 16:39 | XMS RPT_ITS | CCD ---
Author Organization [facility] CliniSyil Care Team Providers Care Barrel Finisher Name Role Phone Argenis Granados Tania Unavailable Argenis Granados Tania Unavailable Patt Jones Unavailable Franklyn Kamara Unavailable Nusrat Clark Unavailable Benedict Morales Unavailable Gravius, Stephanie Unavailable Unavailable Messenger, Leighann Unavailable Unavailable Manchak, Vane Unavailable Unavailable Unavailable Unavailable Patt Jones Unavailable Franklyn Kamara Unavailable Nusrat Clark Unavailable Benedict Morales Unavailable Gravius, Stephanie Unavailable [...] Unavailable Dr. Franklyn Kamara Unavailable Dr. Nusrat Clark Unavailable Dr. Deion Lainez Unavailable Benedict Morales Unavailable Solomon RN, Leighann Unavailable Unavailable Az GRINDER TENDER, Andre Unavailable Unavailable Cross GRINDER TENDER, Sakina Unavailable Unavailable Gravius EQUIPMENT LEAD, Stephanie Unavailable Unavailable Ciesa HOPPER FILLER, Ying Unavailable Manalliek EQUIPMENT LEAD, Vane Unavailable Unavailable Unavailable Unavailable Slarb GRINDER TENDER, Kimberli Unavailable Unavailable BasaliMoy Unavailable Anh , Dr. Estes Unavailable SajanManisha france Unavailable Vania GRINDER TENDER, Goldie Unavailable Unavailable Patt Jones DO Unavailable Dr. Patt Jones Primary Care Provider Dr. Patt Jones Referring Provider Dr. Negro Johnson Attending Provider Dr. Osmin Pierson Attending Provider Patt Jones DO Referring Unavailable Patt Jones DO Attending Unavailable Benita ELIZONDO, Patt Consulting Unavailable Dr. Patt Jones Primary Care Provider Dr. Jose Manuel Wagner Attending Provider Dr. Regi Bunch Referring Provider Dr. Patt Jones DO Primary Care Provider [phone] Fracisco ROSE, Dr. Holland Emergency Provider [phone] Mp ROSE, Dr. Lucas Admit Provider Mp ROSE, Dr. Lucas Attending Provider Mp ROSE, Dr. Lucas Other Provider Dr. Negro Johnson DO Other Provider Demetris ROSE, Dr. Mohini North Other Provider Mp ROSE, Dr. Lucas Referring Provider Mayda ELIZONDO, Dr. Pino Attending Provider Demetris ROSE, Dr. Mohini North Attending Provider Los ROSE, Dr. Leonard Attending Provider Los ROSE, Dr. Leonard Referring Provider Hernandez ROSE, Dr. Young Cortes Admit Provider Hernandez ROSE, Dr. Young Cortes Attending Provider Hernandez ROSE, Dr. Young Cortes Referring Provider Noe ROSE, Dr. Boyd Attending Provider Benita DO, Dr. Beltre Other Provider Yosef ROSE, Dr. Dyer Attending Provider Yosef ROSE, Dr. Dyer Referring Provider Benita ELIZONDO, Dr. Beltre Referring Provider Elizabeth ELIZONDO, Dr. Tom Attending Provider Kenna ROSE, Dr. Solorio Attending Provider Benita ELIZONDO, Dr. Beltre Primary Care Provider Benita ELIZONDO, Dr. Beltre Referring Provider Elizabeth ELIZONDO, Dr. Tom Attending Provider Kenna ROSE, Dr. Solorio Attending Provider Yosef ROSE, Dr. Dyer Attending Provider Yosef ROSE, Dr. Dyer Referring Provider Heather ROSE, Dr. Guallpa Emergency Provider Heather ROSE, Dr. Guallpa Attending Provider Benita ELIZONDO, Dr. Beltre Attending Provider Benita ELIZONDO, Dr. Beltre Primary Care Provider Benita ELIZONDO, Dr. Beltre Referring Provider Nerissa Wood Attending Provider Nerissa Wood Referring Provider Andrés Bocanegra Attending Provider Benita DO, Dr. Beltre Primary Care Provider [phone] Yosef ROSE, Dr. Dyer Attending Provider Yosef ROSE, Dr. Dyer Referring [facility] EL[facility], Dr. Abreu [facility], [facility] Attending Provider [facility] DO, Dr. Meadows Emergency Provider Ben ELIZONDO, Dr. Michel Admit Provider Ben ELIZONDO, Dr. Michel Attending Provider Ben ELIZONDO, Dr. Michel Other Provider Олег ROSE, Dr. Jonathan Alexander Attending Provider Олег ROSE, Dr. Jonathan Alexander Other Provider Hernandez, Young Chi Referring Unavailable Hernandez, Young Chi Attending Unavailable Benita, Patt Primary Care Unavailable Ben, Anand Consulting Unavailable Anand Contreras Admitting Unavailable Benita, Patt Primary Care Unavailable Jonathan Denney Attending Unavailable Mp, Lance Attending Unavailable Mp, Lance Admitting Unavailable Benita, Patt Primary Care Unavailable Mp, Lance Consulting Unavailable Borruso, Negro Consulting Unavailable Koram, Mohini Mary Anne Consulting Unavailable Borruso, Negro Admitting Unavailable Benita, Patt Primary Care Unavailable Borruso, Negro Referring Unavailable Borruso, Negro Attending Unavailable Benita, Patt Primary Care Unavailable Benita, Patt Referring Unavailable Andrés Bocanegra Attending Unavailable Mp, Lance Admitting Unavailable Koram, Mohini Mary Anne Attending Unavailable Benita, Patt Primary Care Unavailable Mp, Lance Consulting Unavailable Borruso, Negro Consulting Unavailable Koram, Mohini Mary Anne Consulting Unavailable Alvarez Ohara Attending Unavailable Mp, Lance Referring Unavailable Benita, Patt Consulting Unavailable Benita, Patt Primary Care Unavailable Vellanki, Manisha Referring Unavailable Sajanlanki, Manisha Attending Unavailable Benita, Patt Primary Care Unavailable Vellanki, Manisha Attending Unavailable Vellanki, Manisha Referring Unavailable Borruso, Negro Consulting Unavailable Benita, Patt Primary Care Unavailable Benita, Patt Attending Unavailable Benita, Patt Referring Unavailable Borruso, Negro Attending Unavailable Benita, Patt Primary Care Unavailable Borruso, Negro Referring Unavailable Ramu Romero Attending Unavailable Benita, Patt Primary Care Unavailable Benita, Patt Primary Care Unavailable Brady Marin Attending Unavailabl e Benita, Aptt Referring Unavailable Benita, Patt Attending Unavailable Benita, Patt Primary Care Unavailable Benita, Patt Primary Care Unavailable Judie Navasma Attending Unavailable Judie Navasma Referring Unavailable Borruso, Negro Admitting Unavailable Borruso, Negro Consulting Unavailable Benita, Patt Primary Care Unavailable Elizabeth, Negro Referring Unavailable Elizabeth Negro Attending Unavailable Lance Gresham Attending Unavailable Negro Johnson Attending Unavailable Alvarez Ohara Attending Unavailable Benita, Patt Primary Care Unavailable Mp, Lance Referring Unavailable Jagdish Meadows Attending Unavailable Benita, Patt Primary Care Unavailable Mp, Lance Referring Unavailable LosAisha Referring Unavailable LosAisha Attending Unavailable Benita, Patt Primary Care Unavailable HernandezYoung valle Chi Referring Unavailable Oliver Liu Attending Unavailable Benita, Patt Primary Care Unavailable Benita, Patt Primary Care Unavailable Osmin Pierson Attending Unavailable LesterrusoNegro Attending Unavailable Benita, Patt Referring Unavailable Benita, Patt Primary Care Unavailable Benita, Patt Primary Care Unavailable Osmin Pierson Attending Unavailable LesterrusoNegro Attending Unavailable Benita, Patt Referring Unavailable Benita, Patt Primary Care Unavailable Anand Contreras Consulting Unavailable Anand Contreras Attending Unavailable Anand Contreras Admitting Unavailable Benita, Patt Primary Care Unavailable Jonathan Denney Attending Unavailable Jonathan Denney Consulting Unavailable Benita, Patt Primary Care Unavailable Kenna, Osmin Attending Unavailable Benita, Patt Primary Care Unavailable Kenna, Osmin Attending Unavailable Benita, Patt Primary Care Unavailable Borruso Negro Attending Unavailable Benita, Patt Referring Unavailable Benita, Patt Primary Care Unavailable Nerissa Wood Attending Unavail able Benita, Patt Referring Unavailable Benita, Patt Primary Care Unavailable Borruso, Negro Attending Unavailable Benita, Patt Referring Unavailable Hernandez, Young Chi Attending Unavailable Hernandez, Young Chi Admitting Unavailable Benita, Patt Primary Care Unavailable Vellanki, Manisha Referring Unavailable Benita, Patt Primary Care Unavailable Vellanki, Manisha Attending Unavailable Benita, Patt Primary Care Unavailable Benita, Patt Referring Unavailable Benita, Patt Attending Unavailable Benita, Patt Primary Care Unavailable Borruso, Negro Referring Unavailable Borruso, Negro Attending Unavailable Benita, Patt Primary Care Unavailable Benita, Patt Referring Unavailable Benita, Patt Attending Unavailable Benita, Patt Primary Care Unavailable Nicolas JIMENEZ, Nerissa Mccray Referring Unavail able Nerissa Wood Attending Unavail able Benita, Patt Primary Care Unavailable Borruso, Negro Referring Unavailable Borruso, Negro Attending Unavailable Borruso, Negro Admitting Unavailable Borruso, Negro Consulting Unavailable Benita, Patt Primary Care Unavailable Borruso, Negro Referring Unavailable Borruso, Negro Attending Unavailable Benita, Patt Primary Care Unavailable Vellanki, Manisha Attending Unavailable Vellanki, Manisha Referring Unavailable Allergies Allergy Classification Reported Allergen(s) Allergy Type Date of Onset Reaction(s) Facility (11 sources) Latex Propensity to adverse reactions [address] [place] [address] Comment on above: latex tape- gave tanmay h with knee replacement (1 source) Latex Drug allergy (disorder) [address] [place] [address] Repository NEGATED: Highlighted row has been ruled [...] HOURS 0 0 August 19, 2024 1:00am pain Start: 07-18-2024 End: 08-05-2024 take 2 tablets [...] capsule by mouth every week VITAMIN D3, [id number] (Oral Capsule) 1 Capsule 2 xweek for [...] TABLET PO DAILY February 12, 2020 12:00am folic acid 1 mg oral tablet (20 [...] daily Folic Acid Discontinued 2 MG PO DAILY@0800 November 01, 2014 1:00am January 22, 2020 10:40am Start: 01-17-2013 End: 01-22-2020 take 2 tablets by mouth once daily Folic Acid 1 MG tablet Discontinued 2 mg PO DAILY@0800 November 01, 2014 1:00am January 22, 2020 10:40am methotrexate 2.5 mg oral tablet (20 sources) [...] 2022 1:59pm vancomycin 125 mg oral capsule (6 sources) Glycopeptide Antibacterial Start: 04-28-2025 take 1 tablet by mouth every other day Vancomycin 125 mg capsule Active 125 mg PO TWICE A DAY April 28, 2025 12:00am Start after 10 day course is completed. Take 1 tablet twice daily for 7 days, then 1 tablet daily for 7 days and then 1 tablet every other day for 14 days Start: 04-02-2025 End: 04-27-2025 take 1 capsule by mouth every six hours Vancomycin 125 mg capsule Active 125 mg PO EVERY 6 HOURS 40 10 0 April 28, 2025 12:00am Completed/Discontinued Medications Medication Drug Class(es) Dates Sig (Normalized) Sig (Original) Medical Marijuana (Informational Use Only-Pt Uses Medical Marijuana edible (10 sources) Start: 01-12-2025 End: 03-10-2025 Medical Marijuana [...] 02-Aug-2010 Inactive apixaban 2.5 mg oral tablet (11 sources) Factor Xa Inhibitor Start: 07-18-2024 End: [...] 1:57pm ascorbic acid 500 mg oral tablet (11 sources) Vitamin C Start: 08-19-2024 End: 01-12-2025 [...] 19, 2022 1:57pm CBD GUMMY 8 mg (11 sources) Start: 07-03-2024 End: 07-26-2024 CBD GUMMY [...] Aminoglycoside Antibacterial, Corticosteroid Start: 07-12-2020 End: 10-28-2020 Jxykzlma-Jqmbcu-Ba- Thonzonium 10 ML drops,suspension Discontinued 10 mL OT THREE TIMES A DAY 1 July 12, 2020 1:00am October 28, 2020 [...] Quantity: 30 {Tablet} Refills: 0 Ordered: 04-Dec-2020 Sally Ellis CNP Start : 04-Dec-2020 Active 1 ml denosumab [...] DAILY NEEDED as needed for Vertigo 20 March 22, 2020 12:00am October 28, 2020 12:10pm docusate sodium 50 mg / sennosides, residential 8.6 mg oral tablet (20 sources) Start: 08-05-20 End: 11-05-19 25 Sennosides-Docusate Sodium (Stimulant Laxative Plus) 8.6-50 mg Tablet Discontinued 2 {tbl} PO TWICE A DAY as needed for Constipation 120 30 August 19, 2024 1:00am November 04, 2024 4:25pm doxepin hydrochloride 25 mg oral capsule (11 sources) Tricyclic Antidepressant Start: 08-19-20 End: 04-27-20 25 take 1 capsule by mouth at bedtime Doxepin 25 mg Capsule Discontinued 25 mg PO AT BEDTIME 30 30 August 19, 2024 1:00am April 27, 2025 1:53pm doxycycline monohydrate 100 mg oral capsule (11 sources) Tetracycline-class Drug Start: 08-19-20 End: 11-05-19 take 1 capsule by mouth twice daily Doxycycline Monohydrate 100 mg Capsule Discontinued 100 mg PO TWICE A DAY 4 2 August 19, 2024 1:00am November 04, 2024 4:24pm DULoxetine 30 mg delayed release oral capsule (20 sources) Serotonin and Norepinephrine Reuptake Inhibitor Start: 02-16-20 CYMBALTA 30 MG CPEP DULOXETINE HCL [id number] Jagdish Mendoza Start: 11-02-2015 End: 01-21-2016 CYMBALTA, [...] Ergocalciferol (Vitamin D2) 50,000 UNIT capsule Discontinued 54170 U PO Q7D August 19, 2015 1:00am [...] food ferrous sulfate 325 mg oral tablet (11 sources) Start: 08-05-2024 End: 08-19-2024 take 1 [...] DO, Kathleen Start : 28-Sep-2022 Active Comments: ninety Start: 08-24-2022 gabapentin 100 mg oral capsule 3 (three) Capsule at night for 0 days Quantity: 90 {Capsule} Refills: 0 Ordered: 24-Aug-2022 Patt Jones DO, DO, Kathleen Start : 24-Aug-2022 Active Comments: ninety Start: 06-22-2022 Gabapentin 100 MG Oral Capsule 3 (three) Capsule at night for 0 days Quantity: 90 {Capsule} Refills: 0 Ordered: 25-Jul-2022 Benita DO, Patt Jones DO Patt Start : 25-Jul-2022 Active Comments: hermila Start: 05-16-2022 Gabapentin 100 MG Oral Capsule 3 (three) Capsule at night for 0 days Quantity: 90 {Capsule} Refills: 0 Ordered: 16-May-2022 Benita ELIZONDO Patt Jones DO Patt Start : 16-May-2022 Active Comments: hermila Start: [...] Quantity: 90 {Capsule} Refills: 0 Ordered: 28-Jan-2022 Benita ELIZONDO Patt Jones DO Patt Start : 28-Jan-2022 Active Comments: 1 cap qhs x 5 days. If needed, can increase to 2 cap qhs x 5 days. If needed again, can increase to 3 caps qhs after thatverbally call to Cristina 01/28/22 Start: 12-11-2020 End: 03-26-2021 take 1 capsule by mouth three times daily Gabapentin 300 MG Oral Capsule 1 (one) Capsule tid for 0 days Quantity: 90 {Capsule} Refills: 0 Ordered: 26-Mar-2021 Stephanie Duke CMA Start : 11-Dec-2020 End : 26-Mar-2021 Inactive Comments: nerve pain oarrs rundose change Start: 11-30-2020 take 1 capsule by mo uth twice daily Gabapentin 300 MG Oral Capsule [...] 3 caps qhs after thatverbally call to prudence 01/28/22 [facility] hydroxychloroquine sulfate 200 mg oral tablet (20 sources) Antimalarial, Antirheumatic Agent Start: 2015 End: 2015 take 2 tablets by mouth once daily PLAQUENIL, 200MG (Oral Tablet) 2 (two) Tablet qd for 0 days Quantity: 60 {Tablet} Refills: 0 Ordered: 21-Jan-2016 Juan David LEPE Vane Start : 02-Nov-2015 End : 21-Jan-2016 Inactive ibuprofen 200 mg oral tablet (10 sources) Nonsteroidal Anti-inflammatory Drug Start: 2024 End: 2024 take 2 tablets by mouth every six hours as needed for pain Ibuprofen (Advil) 200 mg tablet Discontinued 400 mg PO EVERY 6 HOURS as needed for pain January 12, 2025 12:00am April 27, 2025 1:54pm lisinopril 10 mg oral tablet (11 sources) Angiotensin Converting Enzyme Inhibitor Start: 2023 End: 2023 Lisinopril 10 mg Tablet Discontinued 10 mg PO TWICE A DAY 0 August 05, 2024 1:00am August 19, 2024 7:34pm BP Hold for SBP less than 130 mmHg losartan potassium 100 mg oral tablet (11 sources) Angiotensin 2 Receptor Katlin Start: 2023 [...] for injection Discontinued 40 MG INTRAARTIC ONCE 1 October 28, 2020 11:59am October 28, 2020 12:46pm Comment on above: with food or generic naproxen sodium 220 mg oral tablet (20 sources) Nonsteroidal Anti-inflammatory Drug Start: 011 End: 012 take 1 tablet by mouth at mealtime ALEVE, 220MG (Oral Tablet) 1 Tablet q6her for 0 days Quantity: 30 {Tablet} Refills: 0 Ordered: 15-Jun-2012 Leighann Carbajal RN Start : 15-Jul-2011 End : 15-Jun-2012 Inactive Comments: with food Comment on above: with food ondansetron 4 mg disintegrating oral tablet (11 sources) Serotonin-3 Receptor Antagonist Start: 024 End: 024 take 1 tablet by mouth every four hours as needed for nausea and vomiting Ondansetron 4 mg tablet,disintegrating Discontinued 4 mg PO Q4H as needed for nausea and vomiting 06 05July 18, 2024 1:00am July 26, 2024 11:14am [...] pantoprazole 40 mg delayed release oral tablet (20 sources) Proton Pump Inhibitor Start: 08-05-2024 End: 01-12-2025 take 1 tablet by mouth twice daily Pantoprazole 40 mg Tablet,Delayed Release (Dr/Ec) Discontinued 40 mg PO TWICE A DAY 60 30 0 August 19, 2024 1:00am January 12, 2025 3:10pm polysaccharide iron complex 150 mg oral capsule (11 sources) Start: 08-19-2024 End: 01-12-2025 Polysaccharide Iron Complex (Ferrex 150) 150 mg iron Capsule Discontinued 150 mg PO DAILY 30 30 0 August 19, 2024 1:00am January 12, 2025 3:11pm predniSONE 20 mg oral tablet (20 sources) Corticosteroid Start: 11-21-2022 End: 05-01-2024 take 2 tablets by mouth once daily Prednisone 20 mg tablet Discontinued 40 mg PO DAILY 10 5 June 03, 2023 6:02pm May 01, 2024 11:33am Start: 11-21-2022 End: 06-03-2023 take 40 mg by mouth once daily Prednisone Active 40 MG PO DAILY 10 5 June 03, 2023 6:02pm Start: 03-26-2021 End: 07-02-2021 predniSONE 10 MG Oral Tablet 3 (three) Tablet bid for 2days then 3tabs once daily for 4days with food for 0 days Quantity: 24 {Tablet} Refills: 0 Ordered: 02-Jul-2021 Elvis YOUNGKimberli Start : 26-Mar-2021 End : 02-Jul-2021 Inactive [...] TABS as needed for flare ups PREDNISONE [id number] Jagdish Noriega Reji Start: 12-19-2012 End: 11-02-2015 take 1 tablet [...] 4 {Tablet_DR} Refills: 4 Ordered: 15-Jun-2012 Leighann Carbaajl RN Start : 01-Jul-2011 End : 15-Jun-2012 [...] 02-Aug-2010 Inactive sucralfate 1000 mg oral tablet (20 sources) Aluminum Complex Start: 08-05-20 24 End: 11-05-19 25 take 1 tablet by mouth 1 hour(s) before mealtime Sucralfate 1 gram Tablet Discontinued 1 g PO ONE HOURS BEFORE MEALS & BED 120 30 0 August 19, 2024 1:00am November 04, 2024 4:25pm 28 actuat teriparatide 0.02 mg/actuat pen injector (20 sources) Parathyroid Hormone Analog Start: 03-02-20 21 End: 03-11-20 21 Forteo 600 MCG/2.4ML Subcutaneous Solution Pen-injector 1 (one) Injection SUBQ DAILY for 0 days Quantity: 1 {Box} Refills: 9 Ordered: 11-Mar-2021 Sakina Kelsey LPN Start : 02-Mar-2021 End : 11-Mar-2021 Discontinued Comments: Mail order. Start: 02-25-2021 Forteo 600 MCG /2.4ML Subcutaneous Solution Pen-injector 1 (one) Injection SUBQ DAILY for 0 days Quantity: 1 {Box} Refills: 9 Ordered: 25-Feb-2021 Patt Jones DO, DO, Kathleen Start : 25-Feb-2021 Active Comments: Mail order. Start: 02-25-2021 Forteo 600 MCG /2.4ML Subcutaneous Solution Pen-injector 1 (one) Injection SUBQ DAILY for 0 days Quantity: 1 {Box} Refills: 9 Ordered: 25-Feb-2021 Patt Jones DO, DO, Kathleen Start : 25-Feb-2021 Active Comments: dx osteoporosis Start: 02-19-2021 Forteo 600 MCG /2.4ML Subcutaneous Solution Pen-injector 1 (one) Injection sq qdaily for 0 days Quantity: 30 {Box} Refills: 11 Ordered: 19-Feb-2021 Patt Jones DO, DO, Kathleen Start : 19-Feb-2021 Active Comments: one month [...] 1:58pm Start: 07-02-2021 take 1 capsule by [facility] twice daily tiZANidine HCl 6 MG Oral [...] Problem Date Documented Date Episodic/Chronic Abdominal pain (6 sources) Abdominal pain; Translations: [Unspecified abdominal pain] Onset: 04-27-2025 Episodic Acute and unspecified renal failure (5 sources) Acute renal failure syndrome; Translations: [Acute kidney failure, unspecified] Onset: 5 04-27-2025 Episodic Acute bronchitis (20 sources) Acute bronchitis; Translations: [Bronchitis, acute] Resolved: 9 06-09-2015 Episodic Administrative/social admission (20 sources) Medical examinations/reports status; Translations: [Annual physical exam] 05-16-2018 Episodic Bacterial infection; unspecified site (4 sources) Clostridioides difficile infection; Translations: [Other bacterial infections of unspecified site] 04-02-2025 Episodic Deficiency and other anemia (12 sources) Iron deficiency anemia; Translations: [Iron deficiency anemia, unspecified] 08-05-2024 Episodic Deficiency and other anemia (12 sources) Anemia; Translations: [Anemia, unspecified] 08-07-2024 Episodic Diabetes mellitus without complication (20 sources) Hyperglycemia; Translations: [Hyperglycemia] 05-01-2020 Episodic Disorders of lipid metabolism (20 sources) Hypercholesterolemia; Translations: [Hypercholesteremia] 07-06-2018 Chronic E Codes: Fall (1 source) Unspecified fall, initial encounter; Translations: [Unspecified fall, initial encounter] Onset: Episodic Essential hypertension (12 sources) Essential hypertension; Translations: [Essential (primary) hypertension] 08-05-2024 Chronic Fluid and electrolyte disorders (20 sources) Hypokalemia; Translations: [Hypokalemia] 09-01-2024 Episodic Fracture of lower limb (17 sources) Metatarsal bone fracture; Translations: [Fracture of unspecified metatarsal bone(s), right foot, initial encounter for closed fracture] 04-18-2023 Episodic Gastroduodenal ulcer (except hemorrhage) (12 sources) Gastric ulcer; Translations: [Gastric ulcer, unspecified [...] against influenza; Translations: [Needs influenza immunization] Episodic Intestinal infection (8 sources) Clostridium difficile colitis; Translations: [Enterocolitis due to Clostridium difficile, not specified as recurrent] Onset: 5 04-27-2025 Episodic Malaise and fatigue (12 sources) Asthenia; Translations: [Other malaise] 08-05-2024 Episodic Menopausal disorders (20 sources) Menopausal syndrome; Translations: [Menopause syndrome] 07-06-2018 Chronic Noninfectious gastroenteritis (4 sources) Colitis; Translations: [Noninfective gastroenteritis and colitis, unspecified] 04-27-2025 Episodic Nutritional deficiencies (20 sources) Vitamin D deficiency, [...] prolia - waiting for correspondance Other aftercare (16 sources) Follow-up status; Translations: [Encounter for other orthopedic aftercare] 07-22-2024 Episodic Other aftercare (12 sources) Drug therapy finding; Translations: [correction (current) use of anticoagulants] 07-26-2024 Episodic Other bone disease and musculoskeletal deformities (11 sources) Avascular necrosis of bone; Translations: [Idiopathic [...] joint] 01-19-2022 Chronic Other connective tissue disease (1 source) Presence of unspecified artificial knee joint; Translations: [Knee joint replacement] Chronic Other connective tissue disease (11 sources) History of total hip arthroplasty; Translations: [...] on above: fibro Other connective tissue disease (11 sources) Iliotibial band friction syndrome; Translations: [Iliotibial band syndrome, unspecified leg] 05-01-2024 Episodic Other connective tissue disease (11 sources) Hamstring injury; Translations: [Other specified enthesopathies [...] spinal cord injury] Episodic Other gastrointestinal disorders (8 sources) Diarrhea; Translations: [Diarrhea, unspecified] 04-02-2025 Episodic Other injuries and conditions due to external causes (20 sources) Muscle strain; Translations: [Muscle strain] Resolved: 3 07-19-2013 Episodic Other injuries and conditions due to external causes (7 sources) Other specified injuries of thorax, initial encounter; Translations: [Contusion of rib on right side] 04-26-2023 Episodic Other lower respiratory disease (20 sources) Cough; Translations: [Cough] Resolved: 3 07-19-2013 Episodic Other nervous system disorders (20 sources) Neuropathy; Translations: [Polyneuropathy, unspecified] 01-19-2022 Chronic Other nervous system disorders (3 sources) Polyneuropathy, unspecified; Translations: [Mononeuritis of unspecified site] Onset: Chronic Other nervous system disorders (12 sources) Disorder of brain; Translations: [Encephalopathy, unspecified] 09-01-2024 Chronic Other nervous system disorders (20 sources) Tingling of skin; Translations: [Tingling] 01-28-2022 Episodic Comment on above: upper and lower extr emities Other nervous system disorders (12 sources) Acute postoperative pain; Translations: [Other acute postprocedural pain] 07-18-2024 Episodic Other non-traumatic joint disorders (20 sources) Arthralgia of the ankle and/or foot; Translations: [Pain in joint involving ankle and foot, unspecified laterality] Resolved: 3 07-21-2015 Episodic Comment on above: luis alberto Clark -- she has tendonitis-- but other foot pain she is sending to rheum Other non-traumatic joint disorders (1 source) Pain in right knee; Translations: [Pain in joint, lower leg] Episodic Other non-traumatic joint disorders (19 sources) Acute ankle pain; Translations: [Pain in right ankle and joints of right foot] 11-21-2022 Episodic Other non-traumatic joint disorders (14 sources) Hip pain; Translations: [Pain in left hip] 03-10-2025 Episodic Other non-traumatic joint disorders (1 source) Pain in left hip; Translations: [Pain in left hip] Onset: Episodic Other nutritional; endocrine; and metabolic disorders [...] edema; Translations: [Edema] Episodic Residual codes; unclassified (8 sources) Bilateral lower limb edema; Translations: [Localized [...] fracture] Onset: 03-23-2016 04-13-2016 Episodic Gastrointestinal hemorrhage (11 sources) Rectal hemorrhage; Translations: [Hemorrhage of anus and rectum] Onset: 01-16-2025 01-12-2025 Episodic Influenza (20 sources) Influenza Nausea and vomiting (12 sources) Postoperative nausea; Translations: [Nausea] Onset: 07-23-2024 07-18-2024 Episodic Other aftercare (1 source) correction (current) use of anticoagulants; Translations: [correction (current) use of anticoagulants] Onset: 08-14-2024 Episodic [...] Test Name Value Interpretation Reference Range Facility Anion gap in Serum or Plasma Ordered By: Anand Contreras on 04-28-2025 Anion gap [Moles/Vol] 13 mmol/L 01-16 [facility] BUN/creatinine ratioOrdered By: Anand Contreras on 04-28-2025 Urea nitrogen/Creatinine [Mass ratio] 28.0 mg/mg High 06-23 [facility] Basic Metabolic Profile (BMP )on 04-28-2025 BUN/CRE 28.0 RATIO High 06-23 [facility] Comment on above: Performed By: #### L 500.2500, L100.0500 ####[facility] [address] [place], [place], [id number] Calcium [Mass/Vol] 8.9 mg/dL Normal 7.6-11.0 [facility] Comment on above: Performed By: #### L 500.2500, L100.0500 ####[facility] [address] [place], [address] Chloride [Moles/Vol] 103 mmol/L Normal 98-108 [facility] Comment on above: Performed By: #### L 500.2500, L100.0500 ####[facility] [address] [place], [address] CO2 [Moles/Vol] 19.1 mmol/L Low 21.0-32.0 [facility] Comment on above: Performed By: #### L 500.2500, L100.0500 ####[facility] [address] [place], [address] Creatinine [Mass/Vol] 0.81 mg/dL Normal 0.70-1.20 [facility] Comment on above: Performed By: #### L 500.2500, L100.0500 ####[facility] [address] [place], [address] ECRCL 52.86 ml/min Normal 50-250 [facility] Comment on above: Performed By: #### L 500.2500, L100.0500 ####[facility] [address] [place], [address] GAP 13 Normal 5-15 [facility] Comment on above: Performed By: #### L 500.2500, L100.0500 ####[facility] [address] [place], [address] GFR/1.73 sq M.predicted among non-blacks MDRD (S/P/Bld) [Vol rate/Area] 78 mL/min/{1.73_m2} Normal >60 [facility] Comment on above: Result Comment: mL/m in/1.73m2 CKD-EPI Creatinine Equation (2020) Performed By: #### L 500.2500, L100.0500 ####[facility] [address] [place], [address] Glucose [Mass/Vol] 114 mg/dL High 70-99 [facility] Comment on above: Performed By: #### L 500.2500, L100.0500 ####[facility] [address] [place], [address] Potassium [Moles/Vol] 3.4 mmol/L Normal 3.3-5.1 [facility] Comment on above: Performed By: #### L 500.2500, L100.0500 ####[facility] [address] [place], [address] Sodium [Moles/Vol] 135 mmol/L Normal 133-145 [facility] Comment on above: Performed By: #### L 500.2500, L100.0500 ####[facility] [address] [place], [address] Urea nitrogen [Mass/Vol] 23 mg/dL High 4-19 [facility] Comment on above: Performed By: #### L 500.2500, L100.0500 ####[facility] [address] [place], [address] CBC-Complete Blood Cnt No Di ffon 04-28-2025 Erythrocyte distribution width (RBC) [Ratio] 14.6 % Normal 11.6-14.6 [facility] Comment on above: Performed By: #### L 500.2500, L100.0500 ####[facility] [address] [place], [address] Hematocrit (Bld) [Volume fraction] 34.0 % Low 37-47 [facility] Comment on above: Performed By: #### L 500.2500, L100.0500 ####[facility] [address] [place], [address] Hemoglobin (Bld) [Mass/Vol] 11.5 g/dL Low 12.0-15.0 [facility] Comment on above: Performed By: #### L 500.2500, L100.0500 ####[facility] [address] [place], [address] MCH (RBC) [Entitic mass] 30.3 pg Normal 27.0-32.0 [facility] Comment on above: Performed By: #### L 500.2500, L100.0500 ####[facility] [address] [place], [address] MCHC (RBC) [Mass/Vol] 33.8 g/dL Normal 32-36 [facility] Comment on above: Performed By: #### L 500.2500, L100.0500 ####[facility] [address] [place], [address] MCV (RBC) [Entitic vol] 89.5 fL Normal 81-99 [facility] Comment on above: Performed By: #### L 500.2500, L100.0500 ####[facility] [address] [place], [address] Platelet mean volume (Bld) [Entitic vol] 9.5 fL Normal 6.2-12.0 [facility] Comment on above: Performed By: #### L 500.2500, L100.0500 ####[facility] [address] [place], [address] Platelets (Bld) [#/Vol] 210 10*3/uL Normal 150-450 [facility] Comment on above: Performed By: #### L 500.2500, L100.0500 ####[facility] [address] [place], [address] RBC (Bld) [#/Vol] 3.80 10*6/uL Low 4.2-5.4 [facility] Comment on above: Performed By: #### L 500.2500, L100.0500 ####[facility] [address] [place], [address] RDW SD 47.1 fl High 35.1-43.9 [facility] Comment on above: Performed By: #### L 500.2500, L100.0500 ####[facility] [address] [place], [address] WBC (Bld) [#/Vol] 7.2 10*3/uL Normal 4.4-11.0 [facility] Comment on above: Performed By: #### L 500.2500, L100.0500 ####[facility] [address] [place], [address] Carbon dioxide, total [Moles /volume] in Central venous bloodOrdered By: Anand Contreras on 04-28-2025 CO2 [Moles/Vol] 19.1 mmol/L Low 21.0-32.0 [facility] Chloride assayOrdered By: Ricardo Contreras on 04-28-2025 Chloride [Moles/Vol] 103 mmol/L 98-108 [facility] Discharge Instructionon 04-05 Discharge Instruction Normal [facility] Erythrocyte distribution wid th ratioOrdered By: Anand Contreras on 04-28-2025 Erythrocyte distribution width (RBC) [Ratio] 14.6 % 11.6-14.6 [facility] Erythrocyte distribution wid th standard deviationOrdered By: Anand Contreras on 04-28-2025 Erythrocyte distribution width (RBC) [Ratio] 47.1 fl High 35.1-43.9 [facility] Glomerular filtration rate ( GFR) estimation/1.73 sq m using serum, plasma, or whole bOrdered By: Anand Contreras on 04-28-2025 GFR/1.73 sq M.predicted among non-blacks MDRD (S/P/Bld) [Vol rate/Area] 78 mL/min/{1.73_m2} >60 [facility] Comment on above: mL/min/1.73m2 CKD-EP I Creatinine Equation (2020) Hematocrit Auto (Bld) [Volum e fraction]Ordered By: Anand Contreras on 04-28-2025 Hematocrit (Bld) [Volume fraction] 34.0 % Low 37-47 [facility] Hemoglobin measurementOrdere d By: Anand Contreras on 04-28-2025 Hemoglobin (Bld) [Mass/Vol] 11.5 g/dL Low 12.0-15.0 [facility] MCV (mean corpuscular volume ) determinationOrdered By: Anand Contreras on 04-28-2025 MCV (RBC) [Entitic vol] 89.5 fL 81-99 [facility] Mean corpuscular hemoglobin (MCH) determinationOrdered By: Anand Contreras on 04-28-2025 MCH (RBC) [Entitic mass] 30.3 pg 27.0-32.0 [facility] Mean corpuscular hemoglobin concentration (MCHC) determinationOrdered By: Anand Contreras on 04-28-2025 MCHC (RBC) [Mass/Vol] 33.8 g/dL 32-36 [facility] Mean platelet volume determi nationOrdered By: Anand Contreras on 04-28-2025 Platelet mean volume (Bld) [Entitic vol] 9.5 fL 6.2-12.0 [facility] Platelet countOrdered By: Ricardo Contreras on 04-28-2025 Platelets (Bld) [#/Vol] 210 10*3/uL 150-450 [facility] Potassium measurement (mass/ volume)Ordered By: Anand Contreras on 04-28-2025 Potassium (Unsp spec) [Mass/Vol] 3.4 mmol/L 3.3-5.1 [facility] RBC Auto (Bld) [#/Vol]Ordere d By: Anand Contreras on 04-28-2025 RBC (Bld) [#/Vol] 3.80 10*6/uL Low 4.2-5.4 [facility] Serum creatinine measurement (mass/volume)Ordered By: Anand Contreras on 04-28-2025 Creatinine [Mass/Vol] 0.81 mg/dL 0.70-1.20 [facility] Serum glucose measurement (m ass/volume)Ordered By: Anand Contreras on 04-28-2025 Glucose [Mass/Vol] 114 mg/dL High 70-99 [facility] Serum or plasma calcium bennie urement (mass/volume)Ordered By: Anand Contreras on 04-28-2025 Calcium [Mass/Vol] 8.9 mg/dL 7.6-11.0 [facility] Serum or plasma urea nitroge n measurement (mass/volume)Ordered By: Anand Contreras on 04-28-2025 Urea nitrogen [Mass/Vol] 23 mg/dL High 4-19 [facility] Sodium levelOrdered By: Rene Contreras on 04-28-2025 Sodium [Moles/Vol] 135 mmol/L 133-145 [facility] White blood cell (WBC) count Ordered By: Anand Contreras on 04-28-2025 WBC (Bld) [#/Vol] 7.2 10*3/uL 4.4-11.0 [facility] Abdomen/Pelvis W IV Cont ONL Yon 04-27-2025 Abdomen/Pelvis W IV Cont ONLY Normal [facility] Absolute lymphocyte countOrd ered By: Abdiel Briones on 04-27-2025 Lymphocytes Auto (Unsp spec) [#/Vol] 1.00 10*3/uL 0.83-4.51 [facility] Absolute neutrophil countOrd ered By: Abdiel Briones on 04-27-2025 Neutrophils (Bld) [#/Vol] 6.7 10*3/uL 2.0-7.7 [facility] Anion gap in Serum or Plasma Ordered By: Abdiel Briones on 04-27-2025 Anion gap [Moles/Vol] 16 mmol/L High 5-15 [facility] Automated lymphocyte count a s percentage of total leukocytesOrdered By: Abdiel Briones on 04-27-2025 Lymphocytes/100 WBC Auto (Unsp spec) 10.6 % Low 19-41 [facility] BUN/creatinine ratioOrdered By: Abdiel Briones on 04-27-2025 Urea nitrogen/Creatinine [Mass ratio] 19.1 mg/mg 10-20 [facility] Basophil percentageOrdered B y: Abdiel Briones on 04-27-2025 Basophils/100 WBC (Bld) 1.0 % 0-1 [facility] Bilirubin, totalOrdered By: Abdiel Briones on 04-27-2025 Bilirubin [Mass/Vol] 1.25 mg/dL 0.00-1.30 [facility] Blood manual differential co mment interpretation (narrative result)Ordered By: Abdiel Briones on 04-27-2025 Manual differential comment Armando (Bld) [Interp] See comment [facility] Comment on above: BANDS NOTED CBC W/Diff, Automatedon 04-05 SMEAR COMMENT Normal [facility] Comment on above: Result Comment: BAND S NOTED Performed By: #### L 503.6005, L100.0100, L500.4050, L501.2450 ####[facility] [address] [place], [address] CDIFF (PCR)on 04-27-2025 CDIFF Normal [facility] Comment on above: Performed By: #### M 100.6795, M100.6796 ####[facility] [address] [place], [address] Carbon dioxide, total [Moles /volume] in Central venous bloodOrdered By: Abdiel Briones on 04-27-2025 CO2 [Moles/Vol] 20.6 mmol/L Low 21.0-32.0 [facility] Chloride assayOrdered By: Brennan Briones on 04-27-2025 Chloride [Moles/Vol] 97 mmol/L Low 98-108 [facility] Clostridium Diff Toxin/Agon 04-27-2025 CDIFF (EIA) Normal [facility] Comment on above: Performed By: #### M 100.6795, M100.6796 ####[facility] [address] [place], [address] Clostridium difficile detect ion by polymerase chain reactionOrdered By: Abdiel Briones on 04-27-2025 C. difficile DNA ARIANE+probe Ql (Unsp spec) [facility] Comprehensive Metabolic Prof ilon 04-27-2025 Albumin [Mass/Vol] 3.9 g/dL Normal 3.4-4.8 [facility] Comment on above: Performed By: #### L 503.6005, L100.0100, L500.4050, L501.2450 ####[facility] [address] [place], [address] Albumin/Globulin [Mass ratio] 1.2 {ratio} Normal 0.9-2.4 [facility] Comment on above: Performed By: #### L 503.6005, L100.0100, L500.4050, L501.2450 ####[facility] [address] [place], [address] ALK PHOS 89 U/L Normal 35-104 [facility] Comment on above: Performed By: #### L 503.6005, L100.0100, L500.4050, L501.2450 ####[facility] [address] [place], [address] ALT [Catalytic activity/Vol] 20 U/L Normal <=34 [facility] Comment on above: Performed By: #### L 503.6005, L100.0100, L500.4050, L501.2450 ####[facility] [address] [place], [address] AST [Catalytic activity/Vol] 19 U/L Normal <=31 [facility] Comment on above: Performed By: #### L 503.6005, L100.0100, L500.4050, L501.2450 ####[facility] [address] [place], [address] Bilirubin [Mass/Vol] 1.25 mg/dL Normal 0.00-1.30 [facility] Comment on above: Performed By: #### L 503.6005, L100.0100, L500.4050, L501.2450 ####[facility] [address] [place], [address] BUN/CRE 19.1 RATIO Normal 10-20 [facility] Comment on above: Performed By: #### L 503.6005, L100.0100, L500.4050, L501.2450 ####[facility] [address] [place], [address] Calcium [Mass/Vol] 9.8 mg/dL Normal 7.6-11.0 [facility] Comment on above: Performed By: #### L 503.6005, L100.0100, L500.4050, L501.2450 ####[facility] [address] [place], [address] Chloride [Moles/Vol] 97 mmol/L Low 98-108 [facility] Comment on above: Performed By: #### L 503.6005, L100.0100, L500.4050, L501.2450 ####[facility] [address] [place], [address] CO2 [Moles/Vol] 20.6 mmol/L Low 21.0-32.0 [facility] Comment on above: Performed By: #### L 503.6005, L100.0100, L500.4050, L501.2450 ####[facility] [address] [place], [address] Creatinine [Mass/Vol] 2.25 mg/dL High 0.70-1.20 [facility] Comment on above: Performed By: #### L 503.6005, L100.0100, L500.4050, L501.2450 ####[facility] [address] [place], [address] GAP 16 High 5-15 [facility] Comment on above: Performed By: #### L 503.6005, L100.0100, L500.4050, L501.2450 ####[facility] [address] [place], [address] GFR/1.73 sq M.predicted among non-blacks MDRD (S/P/Bld) [Vol rate/Area] 23 mL/min/{1.73_m2} Low >60 [facility] Comment on above: Result Comment: mL/m in/1.73m2 CKD-EPI Creatinine Equation (2020) Performed By: #### L 503.6005, L100.0100, L500.4050, L501.2450 ####[facility] [address] [place], [address] Globulin (S) [Mass/Vol] 3.2 g/dL Normal 2.2-4.2 [facility] Comment on above: Performed By: #### L 503.6005, L100.0100, L500.4050, L501.2450 ####[facility] [address] [place], [address] Glucose [Mass/Vol] 104 mg/dL High 70-99 [facility] Comment on above: Performed By: #### L 503.6005, L100.0100, L500.4050, L501.2450 ####[facility] [address] [place], [address] Potassium [Moles/Vol] 3.6 mmol/L Normal 3.3-5.1 [facility] Comment on above: Performed By: #### L 503.6005, L100.0100, L500.4050, L501.2450 ####[facility] [address] [place], [address] Sodium [Moles/Vol] 133 mmol/L Normal 133-145 [facility] Comment on above: Performed By: #### L 503.6005, L100.0100, L500.4050, L501.2450 ####[facility] [address] [place], [address] T PROT 7.1 g/dL Normal 5.9-8.4 [facility] Comment on above: Performed By: #### L 503.6005, L100.0100, L500.4050, L501.2450 ####[facility] [address] [place], [place], [id number] Urea nitrogen [Mass/Vol] 43 mg/dL High 4-19 [facility] Comment on above: Performed By: #### L 503.6005, L100.0100, L500.4050, L501.2450 ####[facility] [address] [place], [place], [address] Emergency Department Summary on 04-27-2025 Emergency Department Summary Normal [facility] Eosinophil percentageOrdered By: Abdiel Briones on 04-27-2025 Eosinophils/100 WBC (Bld) 0.3 % 0-5 [facility] Erythrocyte distribution wid th ratioOrdered By: Abdiel Briones on 04-27-2025 Erythrocyte distribution width (RBC) [Ratio] 14.7 % High 11.6-14.6 [facility] Erythrocyte distribution wid th standard deviationOrdered By: Abdiel Briones on 04-27-2025 Erythrocyte distribution width (RBC) [Ratio] 48.4 fl High 35.1-43.9 [facility] Glomerular filtration rate ( GFR) estimation/1.73 sq m using serum, plasma, or whole bOrdered By: Abdiel Briones on 04-27-2025 GFR/1.73 sq M.predicted among non-blacks MDRD (S/P/Bld) [Vol rate/Area] 23 mL/min/{1.73_m2} Low >60 [facility] Comment on above: mL/min/1.73m2 CKD-EP I Creatinine Equation (2020) H AND P Exam - Hospitaliston 04-27-2025 H&P Exam - Hospitalist Normal [facility] Hematocrit Auto (Bld) [Volum e fraction]Ordered By: Abdiel Briones on 04-27-2025 Hematocrit (Bld) [Volume fraction] 39.6 % 37-47 [facility] Hemoglobin measurementOrdere d By: Abdiel Briones on 04-27-2025 Hemoglobin (Bld) [Mass/Vol] 13.2 g/dL 12.0-15.0 [facility] Immature granulocytes/100 WB C Auto (Bld)Ordered By: Abdiel Briones on 04-27-2025 Immature granulocytes/100 WBC (Bld) 0.700 % 0.0-0.9 [facility] Comment on above: IG% - Immature Granu locytes (promyelocytes, myelocytes and metamyelocytes) > 1% indicates that a LEFT SHIFT is Present. Laboratory - Chemistry and C hemistry - challengeOrdered By: Abdiel Briones on 04-27-2025 AST [Catalytic activity/Vol] 19 U/L <32 [facility] Lactic Acidon 04-27-2025 Lactate [Moles/Vol] 2.1 mmol/L Invalid Interpretation Code 0.0-2.0 [facility] Comment on above: Result Comment: Crit ical Result(s) Called TCLEVIDENCE at: 1752 by:JAMAR??Results read back by same. Performed By: #### L 503.6005 ####[facility] [address] [place], [place], [id number] Lactate [Moles/Vol] 2.2 mmol/L Invalid Interpretation Code 0.0-2.0 [facility] Comment on above: Order Comment: Y Result Comment: Crit ical Result(s) Called to: Chelsi SEGURA (ER) by:Aristeo??Results read back by same. Performed By: #### L 503.6005, L100.0100, L500.4050, L501.2450 ####[facility] [address] [place], [place], [id number] Lactic acid measurementOrder ed By: Abdiel Briones on 04-27-2025 Lactate [Moles/Vol] 2.1 mmol/L High 0.0-2.0 [facility] Comment on above: Critical Result(s) C alled TCLEVIDENCE at: 1752 by: JAMAR Results read back by same. Lactate [Moles/Vol] 2.2 mmol/L High 0.0-2.0 [facility] Comment on above: Critical Result(s) C alled to: Chelsi SEGURA (ER) by: Aristeo Results read back by same. Lipaseon 04-27-2025 Lipase [Catalytic activity/Vol] 51 U/L Normal 13-75 [facility] Comment on above: Result Comment: Pilar separza note:LIPASE revised reference range effective 22.New Lipase methodology. Expected to produce lower valuesthan the previous assay method.NEW Reference Range: 13 - 75 U/L Performed By: #### L 503.6005, L100.0100, L500.4050, L501.2450 ####[facility] [address] [place], [address] Lipase measurementOrdered By : Abdiel Briones on 04-27-2025 Lipase [Catalytic activity/Vol] 51 U/L 13-75 [facility] Comment on above: Please note:LIPASE r evised reference range effective 22. New Lipase methodology. Expected to produce lower values than the previous assay method. NEW Reference Range: 13 - 75 U/L MCV (mean corpuscular volume ) determinationOrdered By: Abdiel Briones on 04-27-2025 MCV (RBC) [Entitic vol] 90.4 fL 81-99 [facility] Mean corpuscular hemoglobin (MCH) determinationOrdered By: Abdiel Briones on 04-27-2025 MCH (RBC) [Entitic mass] 30.1 pg 27.0-32.0 [facility] Mean corpuscular hemoglobin concentration (MCHC) determinationOrdered By: Abdiel Briones on 04-27-2025 MCHC (RBC) [Mass/Vol] 33.3 g/dL 32-36 [facility] Mean platelet volume determi nationOrdered By: Abdiel Briones on 04-27-2025 Platelet mean volume (Bld) [Entitic vol] 9.7 fL 6.2-12.0 [facility] Monocyte percentageOrdered B y: Abdiel Briones on 04-27-2025 Monocytes/100 WBC (Bld) 16.1 % High 0-10 [facility] Neutrophil percentageOrdered By: Abdiel Briones on 04-27-2025 Neutrophils/100 WBC (Bld) 71.3 % High 47-70 [facility] Nucleated red blood cell per centageOrdered By: Abdiel Briones on 04-27-2025 Nucleated RBC/100 WBC (Bld) [Ratio] 0 % 0-5 [facility] Platelet countOrdered By: Brennan rBiones on 04-27-2025 Platelets (Bld) [#/Vol] 238 10*3/uL 150-450 [facility] Potassium measurement (mass/ volume)Ordered By: Abdiel Briones on 04-27-2025 Potassium (Unsp spec) [Mass/Vol] 3.6 mmol/L 3.3-5.1 [facility] RBC Auto (Bld) [#/Vol]Ordere d By: Abdiel Briones on 04-27-2025 RBC (Bld) [#/Vol] 4.38 10*6/uL 4.2-5.4 [facility] Serum creatinine measurement (mass/volume)Ordered By: Abdiel Briones on 04-27-2025 Creatinine [Mass/Vol] 2.25 mg/dL High 0.70-1.20 [facility] Serum globulin measurementOr dered By: Abdiel Briones on 04-27-2025 Globulin (S) [Mass/Vol] 3.2 g/dL 2.2-4.2 [facility] Serum glucose measurement (m ass/volume)Ordered By: Abdiel Briones on 04-27-2025 Glucose [Mass/Vol] 104 mg/dL High 70-99 [facility] Serum or plasma alanine graves otransferase (ALT) measurementOrdered By: Abdiel Briones on 04-27-2025 ALT [Catalytic activity/Vol] 20 U/L <35 [facility] Serum or plasma albumin bennie urement (mass/volume)Ordered By: Abdiel Briones on 04-27-2025 Albumin [Mass/Vol] 3.9 g/dL 3.4-4.8 [facility] Serum or plasma albumin/glob ulin mass ratioOrdered By: Abdiel Briones on 04-27-2025 Albumin/Globulin [Mass ratio] 1.2 {ratio} 0.9-2.4 [facility] Serum or plasma alkaline coy sphatase measurementOrdered By: Abdiel Briones on 04-27-2025 ALP [Catalytic activity/Vol] 89 U/L 35-104 [facility] Serum or plasma calcium bennie urement (mass/volume)Ordered By: Abdiel Briones on 04-27-2025 Calcium [Mass/Vol] 9.8 mg/dL 7.6-11.0 [facility] Serum or plasma urea nitroge n measurement (mass/volume)Ordered By: Abdiel Briones on 04-27-2025 Urea nitrogen [Mass/Vol] 43 mg/dL High 4-19 [facility] Sodium levelOrdered By: Jennifer Briones on 04-27-2025 Sodium [Moles/Vol] 133 mmol/L 133-145 [facility] Stool Clostridium difficile detectionOrdered By: Abdiel Briones on 04-27-2025 C. difficile Ql (Stl) [facility] Total proteinOrdered By: Alla Briones on 04-27-2025 Protein [Mass/Vol] 7.1 g/dL 5.9-8.4 [facility] White blood cell (WBC) count Ordered By: Abdiel Briones on 04-27-2025 WBC (Bld) [#/Vol] 9.4 10*3/uL 4.4-11.0 [facility] Absolute lymphocyte countOrd ered By: Manisha Navas on 04-14-2025 Lymphocytes Auto (Unsp spec) [#/Vol] 1.22 10*3/uL 0.83-4.51 [facility] Absolute neutrophil countOrd ered By: Manisha Navas on 04-14-2025 Neutrophils (Bld) [#/Vol] 1.7 10*3/uL Low 2.0-7.7 [facility] Anion gap in Serum or Plasma Ordered By: Manisha Navas on 04-14-2025 Anion gap [Moles/Vol] 13 mmol/L 5-15 [facility] Automated lymphocyte count a s percentage of total leukocytesOrdered By: Manisha Navas on 04-14-2025 Lymphocytes/100 WBC Auto (Unsp spec) 34.4 % 19-41 [facility] BUN/creatinine ratioOrdered By: Manisha Navas on 04-14-2025 Urea nitrogen/Creatinine [Mass ratio] 21.0 mg/mg High 10-20 [facility] Basophil percentageOrdered B y: Manisha Navas on 04-14-2025 Basophils/100 WBC (Bld) 1.4 % High 0-1 [facility] Bilirubin, totalOrdered By: Manisha Navas on 04-14-2025 Bilirubin [Mass/Vol] 0.81 mg/dL 0.00-1.30 [facility] CBC W/Diff, Automatedon 04-04 Absolute Lymph 1.22 X10 3/uL Normal 0.83-4.51 [facility] Comment on above: Performed By: #### L 100.0100, L500.4050 ####[facility] [address] [place], [address] Absolute Neut 1.7 X10 3/uL Low 2.0-7.7 [facility] Comment on above: Performed By: #### L 100.0100, L500.4050 ####[facility] [address] [place], [address] Basophils/100 WBC (Bld) 1.4 % High 0-1 [facility] Comment on above: Performed By: #### L 100.0100, L500.4050 ####[facility] [address] [place], [address] Eosinophils/100 WBC (Bld) 2.3 % Normal 0-5 [facility] Comment on above: Performed By: #### L 100.0100, L500.4050 ####[facility] [address] [place], [address] Erythrocyte distribution width (RBC) [Ratio] 13.4 % Normal 11.6-14.6 [facility] Comment on above: Performed By: #### L 100.0100, L500.4050 ####[facility] [address] [place], [address] Hematocrit (Bld) [Volume fraction] 35.9 % Low 37-47 [facility] Comment on above: Performed By: #### L 100.0100, L500.4050 ####[facility] [address] [place], [address] Hemoglobin (Bld) [Mass/Vol] 11.8 g/dL Low 12.0-15.0 [facility] Comment on above: Performed By: #### L 100.0100, L500.4050 ####[facility] [address] [place], [address] IG% 0.000 Normal 0.0-0.9 [facility] Comment on above: Result Comment: IG% - Immature Granulocytes (promyelocytes, myelocytes andmetamyelocytes) > 1% indicates that a LEFT SHIFT is Present. Performed By: #### L 100.0100, L500.4050 ####[facility] [address] [place], [address] Lymphocytes/100 WBC (Bld) 34.4 % Normal 19-41 [facility] Comment on above: Performed By: #### L 100.0100, L500.4050 ####[facility] [address] [place], [address] MCH (RBC) [Entitic mass] 29.6 pg Normal 27.0-32.0 [facility] Comment on above: Performed By: #### L 100.0100, L500.4050 ####[facility] [address] [place], [address] MCHC (RBC) [Mass/Vol] 32.9 g/dL Normal 32-36 [facility] Comment on above: Performed By: #### L 100.0100, L500.4050 ####[facility] [address] [place], [address] MCV (RBC) [Entitic vol] 90.2 fL Normal 81-99 [facility] Comment on above: Performed By: #### L 100.0100, L500.4050 ####[facility] [address] [place], [address] Monocytes/100 WBC (Bld) 13.5 % High 0-10 [facility] Comment on above: Performed By: #### L 100.0100, L500.4050 ####[facility] [address] [place], [address] Neutrophils/100 WBC (Bld) 48.4 % Normal 47-70 [facility] Comment on above: Performed By: #### L 100.0100, L500.4050 ####[facility] [address] [place], [address] Nucleated RBC (Bld) [#/Vol] 0 10*3/uL Normal 0-5 [facility] Comment on above: Performed By: #### L 100.0100, L500.4050 ####[facility] [address] [place], [address] Platelet mean volume (Bld) [Entitic vol] 9.4 fL Normal 6.2-12.0 [facility] Comment on above: Performed By: #### L 100.0100, L500.4050 ####[facility] [address] [place], [address] Platelets (Bld) [#/Vol] 270 10*3/uL Normal 150-450 [facility] Comment on above: Performed By: #### L 100.0100, L500.4050 ####[facility] [address] [place], [address] RBC (Bld) [#/Vol] 3.98 10*6/uL Low 4.2-5.4 [facility] Comment on above: Performed By: #### L 100.0100, L500.4050 ####[facility] [address] [place], [address] RDW SD 44.2 fl High 35.1-43.9 [facility] Comment on above: Performed By: #### L 100.0100, L500.4050 ####[facility] [address] [place], [address] WBC (Bld) [#/Vol] 3.6 10*3/uL Low 4.4-11.0 [facility] Comment on above: Performed By: #### L 100.0100, L500.4050 ####[facility] [address] [place], [address] Carbon dioxide, total [Moles /volume] in Central venous bloodOrdered By: Manisha Navas on 04-14-2025 CO2 [Moles/Vol] 22.6 mmol/L 21.0-32.0 [facility] Chloride assayOrdered By: Tony Navas on 04-14-2025 Chloride [Moles/Vol] 102 mmol/L 98-108 [facility] Comprehensive Metabolic Prof ilon 04-14-2025 Albumin [Mass/Vol] 4.0 g/dL Normal 3.4-4.8 [facility] Comment on above: Performed By: #### L 100.0100, L500.4050 ####[facility] [address] [place], [address] Albumin/Globulin [Mass ratio] 1.5 {ratio} Normal 0.9-2.4 [facility] Comment on above: Performed By: #### L 100.0100, L500.4050 ####[facility] [address] [place], [address] ALK PHOS 98 U/L Normal 35-104 [facility] Comment on above: Performed By: #### L 100.0100, L500.4050 ####[facility] [address] [place], [address] ALT [Catalytic activity/Vol] 12 U/L Normal <=34 [facility] Comment on above: Performed By: #### L 100.0100, L500.4050 ####[facility] [address] [place], [address] AST [Catalytic activity/Vol] 22 U/L Normal <=31 [facility] Comment on above: Performed By: #### L 100.0100, L500.4050 ####[facility] [address] [place], [address] Bilirubin [Mass/Vol] 0.81 mg/dL Normal 0.00-1.30 [facility] Comment on above: Performed By: #### L 100.0100, L500.4050 ####[facility] [address] [place], [address] BUN/CRE 21.0 RATIO High 10-20 [facility] Comment on above: Performed By: #### L 100.0100, L500.4050 ####[facility] [address] [place], [address] Calcium [Mass/Vol] 9.8 mg/dL Normal 7.6-11.0 [facility] Comment on above: Performed By: #### L 100.0100, L500.4050 ####[facility] [address] [place], [address] Chloride [Moles/Vol] 102 mmol/L Normal 98-108 [facility] Comment on above: Performed By: #### L 100.0100, L500.4050 ####[facility] [address] [place], [address] CO2 [Moles/Vol] 22.6 mmol/L Normal 21.0-32.0 [facility] Comment on above: Performed By: #### L 100.0100, L500.4050 ####[facility] [address] [place], [address] Creatinine [Mass/Vol] 0.85 mg/dL Normal 0.70-1.20 [facility] Comment on above: Performed By: #### L 100.0100, L500.4050 ####[facility] [address] [place], [address] GAP 13 Normal 5-15 [facility] Comment on above: Performed By: #### L 100.0100, L500.4050 ####[facility] [address] [place], [address] GFR/1.73 sq M.predicted among non-blacks MDRD (S/P/Bld) [Vol rate/Area] 72 mL/min/{1.73_m2} Normal >60 [facility] Comment on above: Result Comment: mL/m in/1.73m2 CKD-EPI Creatinine Equation (2020) Performed By: #### L 100.0100, L500.4050 ####[facility] [address] [place], [address] Globulin (S) [Mass/Vol] 2.7 g/dL Normal 2.2-4.2 [facility] Comment on above: Performed By: #### L 100.0100, L500.4050 ####[facility] [address] [place], [address] Glucose [Mass/Vol] 122 mg/dL High 70-99 [facility] Comment on above: Performed By: #### L 100.0100, L500.4050 ####[facility] [address] [place], [address] Potassium [Moles/Vol] 3.9 mmol/L Normal 3.3-5.1 [facility] Comment on above: Performed By: #### L 100.0100, L500.4050 ####[facility] [address] [place], [address] Sodium [Moles/Vol] 137 mmol/L Normal 133-145 [facility] Comment on above: Performed By: #### L 100.0100, L500.4050 ####[facility] [address] [place], [address] T PROT 6.6 g/dL Normal 5.9-8.4 [facility] Comment on above: Performed By: #### L 100.0100, L500.4050 ####[facility] [address] [place], [address] Urea nitrogen [Mass/Vol] 18 mg/dL Normal 4-19 [facility] Comment on above: Performed By: #### L 100.0100, L500.4050 ####[facility] [address] [place], [address] Eosinophil percentageOrdered By: Manisha Navas on 04-14-2025 Eosinophils/100 WBC (Bld) 2.3 % 0-5 [facility] Erythrocyte distribution wid th ratioOrdered By: [facility] Yosef on 04-14-2025 Erythrocyte distribution width (RBC) [Ratio] 13.4 % 11.6-14.6 [facility] Erythrocyte distribution wid th standard deviationOrdered By: Manisha Navas on 04-14-2025 Erythrocyte distribution width (RBC) [Ratio] 44.2 fl High 35.1-43.9 [facility] Glomerular filtration rate ( GFR) estimation/1.73 sq m using serum, plasma, or whole bOrdered By: Manisha Navas on 04-14-2025 GFR/1.73 sq M.predicted among non-blacks MDRD (S/P/Bld) [Vol rate/Area] 72 mL/min/{1.73_m2} >60 [facility] Comment on above: mL/min/1.73m2 CKD-EP I Creatinine Equation (2020) Hematocrit Auto (Bld) [Volum e fraction]Ordered By: Manisha Navas on 04-14-2025 Hematocrit (Bld) [Volume fraction] 35.9 % Low 37-47 [facility] Hemoglobin measurementOrdere d By: Manisha Navas on 04-14-2025 Hemoglobin (Bld) [Mass/Vol] 11.8 g/dL Low 12.0-15.0 [facility] Immature granulocytes/100 WB C Auto (Bld)Ordered By: Manisha Navas on 04-14-2025 Immature granulocytes/100 WBC (Bld) 0.000 % 0.0-0.9 [facility] Comment on above: IG% - Immature Granu locytes (promyelocytes, myelocytes and metamyelocytes) > 1% indicates that a LEFT SHIFT is Present. Laboratory - Chemistry and C hemistry - challengeOrdered By: Manisha Navas on 04-14-2025 AST [Catalytic activity/Vol] 22 U/L <32 [facility] MCV (mean corpuscular volume ) determinationOrdered By: Manisha Navas on 04-14-2025 MCV (RBC) [Entitic vol] 90.2 fL 81-99 [facility] Mean corpuscular hemoglobin (MCH) determinationOrdered By: Manisha Navas on 04-14-2025 MCH (RBC) [Entitic mass] 29.6 pg 27.0-32.0 [facility] Mean corpuscular hemoglobin concentration (MCHC) determinationOrdered By: Manisha Navas on 04-14-2025 MCHC (RBC) [Mass/Vol] 32.9 g/dL 32-36 [facility] Mean platelet volume determi nationOrdered By: Manisha Navas on 04-14-2025 Platelet mean volume (Bld) [Entitic vol] 9.4 fL 6.2-12.0 [facility] Monocyte percentageOrdered B y: Manisha Navas on 04-14-2025 Monocytes/100 WBC (Bld) 13.5 % High 0-10 [facility] Neutrophil percentageOrdered By: Manisah Navas on 04-14-2025 Neutrophils/100 WBC (Bld) 48.4 % 47-70 [facility] Nucleated red blood cell per centageOrdered By: Manisha Navas on 04-14-2025 Nucleated RBC/100 WBC (Bld) [Ratio] 0 % 0-5 [facility] Platelet countOrdered By: Tony Navas on 04-14-2025 Platelets (Bld) [#/Vol] 270 10*3/uL 150-450 [facility] Potassium measurement (mass/ volume)Ordered By: Manisha Navas on 04-14-2025 Potassium (Unsp spec) [Mass/Vol] 3.9 mmol/L 3.3-5.1 [facility] RBC Auto (Bld) [#/Vol]Ordere d By: Manisha Navas on 04-14-2025 RBC (Bld) [#/Vol] 3.98 10*6/uL Low 4.2-5.4 [facility] Serum creatinine measurement (mass/volume)Ordered By: Manisha Navas on 04-14-2025 Creatinine [Mass/Vol] 0.85 mg/dL 0.70-1.20 [facility] Serum globulin measurementOr dered By: Manisha Navas on 04-14-2025 Globulin (S) [Mass/Vol] 2.7 g/dL 2.2-4.2 [facility] Serum glucose measurement (m ass/volume)Ordered By: Manisha Navas on 04-14-2025 Glucose [Mass/Vol] 122 mg/dL High 70-99 [facility] Serum or plasma alanine graves otransferase (ALT) measurementOrdered By: Manisha Navas on 04-14-2025 ALT [Catalytic activity/Vol] 12 U/L <35 [facility] Serum or plasma albumin bennie urement (mass/volume)Ordered By: Manisha Navas on 04-14-2025 Albumin [Mass/Vol] 4.0 g/dL 3.4-4.8 [facility] Serum or plasma albumin/glob ulin mass ratioOrdered By: Manisha Navas on 04-14-2025 Albumin/Globulin [Mass ratio] 1.5 {ratio} 0.9-2.4 [facility] Serum or plasma alkaline coy sphatase measurementOrdered By: Manisha Navas on 04-14-2025 ALP [Catalytic activity/Vol] 98 U/L 35-104 [facility] Serum or plasma calcium bennie urement (mass/volume)Ordered By: Manisha Navas on 04-14-2025 Calcium [Mass/Vol] 9.8 mg/dL 7.6-11.0 [facility] Serum or plasma urea nitroge n measurement (mass/volume)Ordered By: Manisha Navas on 04-14-2025 Urea nitrogen [Mass/Vol] 18 mg/dL 4-19 [facility] Sodium levelOrdered By: Pradip Navas on 04-14-2025 Sodium [Moles/Vol] 137 mmol/L 133-145 [facility] Total proteinOrdered By: Judie Navas on 04-14-2025 Protein [Mass/Vol] 6.6 g/dL 5.9-8.4 [facility] White blood cell (WBC) count Ordered By: Manisha Navas on 04-14-2025 WBC (Bld) [#/Vol] 3.6 10*3/uL Low 4.4-11.0 [facility] Ova and Parasites 8623on OP Normal [facility] Comment on above: Performed By: #### M 600.5000 ####[facility] [address] [place], [address] Abdomen/Pelvis W IV Cont ONL Yon 04-02-2025 Abdomen/Pelvis W IV Cont ONLY Normal [facility] Absolute lymphocyte countOrd ered By: Brady Marin on 04-02-2025 Lymphocytes Auto (Unsp spec) [#/Vol] 1.03 10*3/uL 0.83-4.51 [facility] Absolute neutrophil countOrd ered By: Brady Marin on 04-02-2025 Neutrophils (Bld) [#/Vol] 12.9 10*3/uL High 2.0-7.7 [facility] Anion gap in Serum or Plasma Ordered By: Brady Marin on 04-02-2025 Anion gap [Moles/Vol] 16 mmol/L High 5-15 [facility] Automated lymphocyte count a s percentage of total leukocytesOrdered By: Brady Marin on 04-02-2025 Lymphocytes/100 WBC Auto (Unsp spec) 6.1 % Low 19-41 [facility] BUN/creatinine ratioOrdered By: Brady Partidat on 04-02-2025 Urea nitrogen/Creatinine [Mass ratio] 19.4 mg/mg 10-20 [facility] Basophil percentageOrdered B y: Brady Partidat on 04-02-2025 Basophils/100 WBC (Bld) 0.4 % 0-1 [facility] Bilirubin Test strip Ql (U)O rdered By: Brady KlsamAnatoly on 04-02-2025 Bilirubin Ql (U) Negative Negative [facility] Bilirubin, totalOrdered By: Brady CordovaBridgettAnatoly on 04-02-2025 Bilirubin [Mass/Vol] 0.49 mg/dL 0.00-1.30 [facility] Blood manual differential co mment interpretation (narrative result)Ordered By: Brady Tomas on 04-02-2025 Manual differential comment Armando (Bld) [Interp] SCANNED [facility] CBC + diff autoon 04-02-2025 CBC W Auto Differential panel (Bld) [facility] CBC W/Diff, Automatedon 03-06 PLT EST ADEQUATE Normal ADEQ [facility] Comment on above: Performed By: #### L 100.0100 ####[facility] [address] [place], [address] SMEAR COMMENT SCANNED Normal [facility] Comment on above: Performed By: #### L 100.0100 ####[facility] [address] [place], [address] DIFF INDICATED? SCAN CRITERIA MET Normal [facility] Comment on above: Result Comment: This specimen has been REJECTED due to Laboratory criteria:Clotted.GOPI GAGETRONG has been notified of need of recollection.04/02/25 Leyda7 Shaista Paulino Performed By: #### L 501.2450, L503.6005, L500.4050, L100.0100 ####[facility] [address] [place], [address] Absolute Lymph 1.25 X10 3/uL Normal 0.83-4.51 [facility] Comment on above: Result Comment: This specimen has been REJECTED due to Laboratory criteria:Clotted.GOPI SNYDER has been notified of need of recollection.04/02/25 1457 Shaista Lora Performed By: #### L 501.2450, L503.6005, L500.4050, L100.0100 ####[facility] [address] [place], [address] Absolute Neut 13.9 X10 3/uL High 2.0-7.7 [facility] Comment on above: Result Comment: This specimen has been REJECTED due to Laboratory criteria:Clotted.GOPI SNYDER has been notified of need of recollection.04/02/25 Shaista Lora Performed By: #### L 501.2450, L503.6005, L500.4050, L100.0100 ####[facility] [address] [place], [address] BASO# 0.09 X10 3/uL Normal [facility] Comment on above: Result Comment: This specimen has been REJECTED due to Laboratory criteria:Clotted.GOPI SNYDER has been notified of need of recollection.04/02/251456 Shaista Lora Performed By: #### L 501.2450, L503.6005, L500.4050, L100.0100 ####[facility] [address] [place], [address] Basophils/100 WBC (Bld) 0.5 % Normal 0-1 [facility] Comment on above: Result Comment: This specimen has been REJECTED due to Laboratory criteria:Clotted.GOPI SNYDER has been notified of need of recollection.04/02/25 1457 Shaista Lora Performed By: #### L 501.2450, L503.6005, L500.4050, L100.0100 ####[facility] [address] [place], [address] EOS# 0.00 X10 3/uL Normal [facility] Comment on above: Result Comment: This specimen has been REJECTED due to Laboratory criteria:Clotted.GOPI SNYDER has been notified of need of recollection.04/02/251456 Shaista Lora Performed By: #### L 501.2450, L503.6005, L500.4050, L100.0100 ####[facility] [address] [place], [address] Eosinophils/100 WBC (Bld) 0.0 % Normal 0-5 [facility] Comment on above: Result Comment: This specimen has been REJECTED due to Laboratory criteria:Clotted.GOPI SNYDER has been notified of need of recollection.04/02/251456 Shaista Lora Performed By: #### L 501.2450, L503.6005, L500.4050, L100.0100 ####[facility] [address] [place], [address] Erythrocyte distribution width (RBC) [Ratio] 13.5 % Normal 11.6-14.6 [facility] Comment on above: Result Comment: This specimen has been REJECTED due to Laboratory criteria:Clotted.GOPI SNYDER has been notified of need of recollection.04/02/251456 Shaista Lora Performed By: #### L 501.2450, L503.6005, L500.4050, L100.0100 ####[facility] [address] [place], [address] Hematocrit (Bld) [Volume fraction] 39.0 % Normal 37-47 [facility] Comment on above: Result Comment: This specimen has been REJECTED due to Laboratory criteria:Clotted.GOPI SNYDER has been notified of need of recollection.04/02/251456 Shaista Lora Performed By: #### L 501.2450, L503.6005, L500.4050, L100.0100 ####[facility] [address] [place], [address] Hemoglobin (Bld) [Mass/Vol] 12.8 g/dL Normal 12.0-15.0 [facility] Comment on above: Result Comment: This specimen has been REJECTED due to Laboratory criteria:Clotted.GOPI SNYDER has been notified of need of recollection.04/02/25 1457 Shaista Lora Performed By: #### L 501.2450, L503.6005, L500.4050, L100.0100 ####[facility] [address] [place], [address] IG# 0.100 X10 3/uL High 0.0-0.0 [facility] Comment on above: Result Comment: This specimen has been REJECTED due to Laboratory criteria:Clotted.GOPI SNYDER has been notified of need of recollection.04/02/25 1457 Shaista Lora Performed By: #### L 501.2450, L503.6005, L500.4050, L100.0100 ####[facility] [address] [place], [address] IG% 0.600 Normal 0.0-0.9 [facility] Comment on above: Result Comment: This specimen has been REJECTED due to Laboratory criteria:Clotted.GOPI SNYDER has been notified of need of recollection.04/02/251456 Shaista JuliocesarardIG% - Immature Granulocytes (promyelocytes, myelocytes andmetamyelocytes) > 1% indicates that a LEFT SHIFT is Present. Performed By: #### L 501.2450, L503.6005, L500.4050, L100.0100 ####[facility] [address] [place], [address] LYMPH# 1.25 X10 3/ul Normal 0.83-4.51 [facility] Comment on above: Result Comment: This specimen has been REJECTED due to Laboratory criteria:Clotted.GOPI SNYDER has been notified of need of recollection.04/02/25 1457 Shaista Lora Performed By: #### L 501.2450, L503.6005, L500.4050, L100.0100 ####[facility] [address] [place], [address] Lymphocytes/100 WBC (Bld) 7.4 % Low 19-41 [facility] Comment on above: Result Comment: This specimen has been REJECTED due to Laboratory criteria:Clotted.GOPI SNYDER has been notified of need of recollection.04/02/25 1457 Shaista Lora Performed By: #### L 501.2450, L503.6005, L500.4050, L100.0100 ####[facility] [address] [place], [address] MCH (RBC) [Entitic mass] 29.6 pg Normal 27.0-32.0 [facility] Comment on above: Result Comment: This specimen has been REJECTED due to Laboratory criteria:Clotted.GOPI SNYDER has been notified of need of recollection.04/02/25 1457 Shaista Lora Performed By: #### L 501.2450, L503.6005, L500.4050, L100.0100 ####[facility] [address] [place], [address] MCHC (RBC) [Mass/Vol] 32.8 g/dL Normal 32-36 [facility] Comment on above: Result Comment: This specimen has been REJECTED due to Laboratory criteria:Clotted.GOPI SNYDER has been notified of need of recollection.04/02/25 1457 Shaista Lora Performed By: #### L 501.2450, L503.6005, L500.4050, L100.0100 ####[facility] [address] [place], [address] MCV (RBC) [Entitic vol] 90.1 fL Normal 81-99 [facility] Comment on above: Result Comment: This specimen has been REJECTED due to Laboratory criteria:Clotted.GOPI SNYDER has been notified of need of recollection.04/02/25 1457 Shaista Lora Performed By: #### L 501.2450, L503.6005, L500.4050, L100.0100 ####[facility] [address] [place], [address] MONO # 1.67 X10 3/uL Normal [facility] Comment on above: Result Comment: This specimen has been REJECTED due to Laboratory criteria:Clotted.GOPI SNYDER has been notified of need of recollection.04/02/25 1457 Shaista Lora Performed By: #### L 501.2450, L503.6005, L500.4050, L100.0100 ####[facility] [address] [place], [address] Monocytes/100 WBC (Bld) 9.8 % Normal 0-10 [facility] Comment on above: Result Comment: This specimen has been REJECTED due to Laboratory criteria:Clotted.GOPI SNYDER has been notified of need of recollection.04/02/25 145 Shaista Lora Performed By: #### L 501.2450, L503.6005, L500.4050, L100.0100 ####[facility] [address] [place], [address] Neutrophil # 13.86 X10 3/uL High 2.7-7.7 [facility] Comment on above: Result Comment: This specimen has been REJECTED due to Laboratory criteria:Clotted.GOPI SNYDER has been notified of need of recollection.04/02/25 1457 Shaista Lora Performed By: #### L 501.2450, L503.6005, L500.4050, L100.0100 ####[facility] [address] [place], [address] Neutrophils/100 WBC (Bld) 81.7 % High 47-70 [facility] Comment on above: Result Comment: This specimen has been REJECTED due to Laboratory criteria:Clotted.GOPI SNYDER has been notified of need of recollection.04/02/25 1457 Shaista Lora Performed By: #### L 501.2450, L503.6005, L500.4050, L100.0100 ####[facility] [address] [place], [address] Nucleated RBC (Bld) [#/Vol] 0 10*3/uL Normal 0-5 [facility] Comment on above: Result Comment: This specimen has been REJECTED due to Laboratory criteria:Clotted.GOPI SNYDER has been notified of need of recollection.04/02/25 1457 Shaista Lora Performed By: #### L 501.2450, L503.6005, L500.4050, L100.0100 ####[facility] [address] [place], [address] Platelet mean volume (Bld) [Entitic vol] 9.8 fL Normal 6.2-12.0 [facility] Comment on above: Result Comment: This specimen has been REJECTED due to Laboratory criteria:Clotted.GOPI SNYDER has been notified of need of recollection.04/02/25 145 Shaista Lora Performed By: #### L 501.2450, L503.6005, L500.4050, L100.0100 ####[facility] [address] [place], [address] Platelets (Bld) [#/Vol] 297 10*3/uL Normal 150-450 [facility] Comment on above: Result Comment: This specimen has been REJECTED due to Laboratory criteria:Clotted.GOPI SNYDER has been notified of need of recollection.04/02/25 1457 Shaista Lora Performed By: #### L 501.2450, L503.6005, L500.4050, L100.0100 ####[facility] [address] [place], [address] POSITIVE DIFF YES Abnormal [facility] Comment on above: Result Comment: This specimen has been REJECTED due to Laboratory criteria:Clotted.GOPI SNYDER has been notified of need of recollection.04/02/25 1457 Shaista Lora Performed By: #### L 501.2450, L503.6005, L500.4050, L100.0100 ####[facility] [address] [place], [address] RBC (Bld) [#/Vol] 4.33 10*6/uL Normal 4.2-5.4 [facility] Comment on above: Result Comment: This specimen has been REJECTED due to Laboratory criteria:Clotted.GOPI SNYDER has been notified of need of recollection.04/02/25 1457 Shaista Lora Performed By: #### L 501.2450, L503.6005, L500.4050, L100.0100 ####[facility] [address] [place], [address] RDW SD 44.3 fl High 35.1-43.9 [facility] Comment on above: Result Comment: This specimen has been REJECTED due to Laboratory criteria:Clotted.GOPI GAGETRONG has been notified of need of recollection.04/02/25 1457 Shaista Lora Performed By: #### L 501.2450, L503.6005, L500.4050, L100.0100 ####[facility] [address] [place], [address] WBC (Bld) [#/Vol] 17.0 10*3/uL High 4.4-11.0 [facility] Comment on above: Result Comment: This specimen has been REJECTED due to Laboratory criteria:Clotted.GOPI BETANCOURTG has been notified of need of recollection.04/02/25 1457 Shaista Lora Performed By: #### L 501.2450, L503.6005, L500.4050, L100.0100 ####[facility] [address] [place], [address] CDIFF (PCR)on 07-30-2025 CDIFF Normal [facility] Comment on above: Performed By: #### M 100.6796, L400.0001, M100.6795 ####[facility] [address] [place], [address] Carbon dioxide, total [Moles /volume] in Central venous bloodOrdered By: Brady Marin on 04-02-2025 CO2 [Moles/Vol] 23.4 mmol/L 21.0-32.0 [facility] Chloride assayOrdered By: Bernardo Marni on 04-02-2025 Chloride [Moles/Vol] 102 mmol/L 98-108 [facility] Clostridium Diff Toxin/Agon 04-02-2025 CDIFF (EIA) Normal [facility] Comment on above: Performed By: #### M 100.6796, L400.0001, M100.6795 ####[facility] [address] [place], [address] Clostridium difficile detect ion by polymerase chain reactionOrdered By: Brady Marin on 04-02-2025 C. difficile DNA ARIANE+probe Ql (Unsp spec) [facility] Comprehensive Metabolic Prof ilon 04-02-2025 Albumin [Mass/Vol] 4.0 g/dL Normal 3.4-4.8 [facility] Comment on above: Performed By: #### L 501.2450, L503.6005, L500.4050, L100.0100 ####[facility] [address] [place], [address] Albumin/Globulin [Mass ratio] 1.2 {ratio} Normal 0.9-2.4 [facility] Comment on above: Performed By: #### L 501.2450, L503.6005, L500.4050, L100.0100 ####[facility] [address] [place], [address] ALK PHOS 117 U/L High 35-104 [facility] Comment on above: Performed By: #### L 501.2450, L503.6005, L500.4050, L100.0100 ####[facility] [address] [place], [address] ALT [Catalytic activity/Vol] 8 U/L Normal <=34 [facility] Comment on above: Performed By: #### L 501.2450, L503.6005, L500.4050, L100.0100 ####[facility] [address] [place], [address] AST [Catalytic activity/Vol] 22 U/L Normal <=31 [facility] Comment on above: Performed By: #### L 501.2450, L503.6005, L500.4050, L100.0100 ####[facility] [address] [place], [address] Bilirubin [Mass/Vol] 0.49 mg/dL Normal 0.00-1.30 [facility] Comment on above: Performed By: #### L 501.2450, L503.6005, L500.4050, L100.0100 ####[facility] [address] [place], [address] BUN/CRE 19.4 RATIO Normal 10-20 [facility] Comment on above: Performed By: #### L 501.2450, L503.6005, L500.4050, L100.0100 ####[facility] [address] [place], [address] Calcium [Mass/Vol] 9.9 mg/dL Normal 7.6-11.0 [facility] Comment on above: Performed By: #### L 501.2450, L503.6005, L500.4050, L100.0100 ####[facility] [address] [place], [address] Chloride [Moles/Vol] 102 mmol/L Normal 98-108 [facility] Comment on above: Performed By: #### L 501.2450, L503.6005, L500.4050, L100.0100 ####[facility] [address] [place], [address] CO2 [Moles/Vol] 23.4 mmol/L Normal 21.0-32.0 [facility] Comment on above: Performed By: #### L 501.2450, L503.6005, L500.4050, L100.0100 ####[facility] [address] [place], [address] Creatinine [Mass/Vol] 0.80 mg/dL Normal 0.70-1.20 [facility] Comment on above: Performed By: #### L 501.2450, L503.6005, L500.4050, L100.0100 ####[facility] [address] [place], [address] GAP 16 High 5-15 [facility] Comment on above: Performed By: #### L 501.2450, L503.6005, L500.4050, L100.0100 ####[facility] [address] [place], [address] GFR/1.73 sq M.predicted among non-blacks MDRD (S/P/Bld) [Vol rate/Area] 78 mL/min/{1.73_m2} Normal >60 [facility] Comment on above: Result Comment: mL/m in/1.73m2 CKD-EPI Creatinine Equation (2020) Performed By: #### L 501.2450, L503.6005, L500.4050, L100.0100 ####[facility] [address] [place], [address] Globulin (S) [Mass/Vol] 3.2 g/dL Normal 2.2-4.2 [facility] Comment on above: Performed By: #### L 501.2450, L503.6005, L500.4050, L100.0100 ####[facility] [address] [place], [address] Glucose [Mass/Vol] 103 mg/dL High 70-99 [facility] Comment on above: Performed By: #### L 501.2450, L503.6005, L500.4050, L100.0100 ####[facility] [address] [place], [address] Potassium [Moles/Vol] 3.5 mmol/L Normal 3.3-5.1 [facility] Comment on above: Performed By: #### L 501.2450, L503.6005, L500.4050, L100.0100 ####[facility] [address] [place], [address] Sodium [Moles/Vol] 141 mmol/L Normal 133-145 [facility] Comment on above: Performed By: #### L 501.2450, L503.6005, L500.4050, L100.0100 ####[facility] [address] [place], [address] T PROT 7.3 g/dL Normal 5.9-8.4 [facility] Comment on above: Performed By: #### L 501.2450, L503.6005, L500.4050, L100.0100 ####[facility] [address] [place], [address] Urea nitrogen [Mass/Vol] 16 mg/dL Normal 4-19 [facility] Comment on above: Performed By: #### L 501.2450, L503.6005, L500.4050, L100.0100 ####[facility] [address] [place], [address] Emergency Department Summary on 04-02-2025 Emergency Department Summary Normal [facility] Eosinophil percentageOrdered By: Brady Klusty-Anatoly on 04-02-2025 Eosinophils/100 WBC (Bld) 5.0 % 0-5 [facility] Erythrocyte distribution wid th ratioOrdered By: Brady Marin on 04-02-2025 Erythrocyte distribution width (RBC) [Ratio] 13.3 % 11.6-14.6 [facility] Erythrocyte distribution wid th standard deviationOrdered By: Bradytai Ledbetter on 04-02-2025 Erythrocyte distribution width (RBC) [Ratio] 43.8 fl 35.1-43.9 [facility] Glomerular filtration rate ( GFR) estimation/1.73 sq m using serum, plasma, or whole bOrdered By: Brady Marin on 04-02-2025 GFR/1.73 sq M.predicted among non-blacks MDRD (S/P/Bld) [Vol rate/Area] 78 mL/min/{1.73_m2} >60 [facility] Comment on above: mL/min/1.73m2 CKD-EP I Creatinine Equation (2020) Hematocrit Auto (Bld) [Volum e fraction]Ordered By: Brady Marin on 04-02-2025 Hematocrit (Bld) [Volume fraction] 35.9 % Low 37-47 [facility] Hemoglobin measurementOrdere d By: Brady Marin on 04-02-2025 Hemoglobin (Bld) [Mass/Vol] 11.8 g/dL Low 12.0-15.0 [facility] Immature granulocytes/100 WB C Auto (Bld)Ordered By: Brady Marin on 04-02-2025 Immature granulocytes/100 WBC (Bld) 0.400 % 0.0-0.9 [facility] Comment on above: IG% - Immature Granu locytes (promyelocytes, myelocytes and metamyelocytes) > 1% indicates that a LEFT SHIFT is Present. Ketones Test strip Ql (U)Ord ered By: Brady Marin on 04-02-2025 Ketones Ql (U) 15 mg/dl High Negative [facility] Laboratory - Chemistry and C hemistry - challengeOrdered By: Brady Marin on 04-02-2025 AST [Catalytic activity/Vol] 22 U/L <32 [facility] Lactic Acidon 04-02-2025 Lactate [Moles/Vol] 1.3 mmol/L Normal 0.0-2.0 [facility] Comment on above: Order Comment: Y Performed By: #### L 501.2450, L503.6005, L500.4050, L100.0100 ####[facility] [address] [place], [place], [id number] Lactic acid measurementOrder ed By: Brady Marin on 04-02-2025 Lactate [Moles/Vol] 1.3 mmol/L 0.0-2.0 [facility] Lipaseon 04-02-2025 Lipase [Catalytic activity/Vol] 21 U/L Normal 13-75 [facility] Comment on above: Result Comment: Pilar esparza note:LIPASE revised reference range effective 22.New Lipase methodology. Expected to produce lower valuesthan the previous assay method.NEW Reference Range: 13 - 75 U/L Performed By: #### L 501.2450, L503.6005, L500.4050, L100.0100 ####[facility] [address] [place], [place], [id number] Lipase measurementOrdered By : Brady Marin on 04-02-2025 Lipase [Catalytic activity/Vol] 21 U/L 13-75 [facility] Comment on above: Please note:LIPASE r evised reference range effective 22. New Lipase methodology. Expected to produce lower values than the previous assay method. NEW Reference Range: 13 - 75 U/L MCV (mean corpuscular volume ) determinationOrdered By: Brady Marin on 04-02-2025 MCV (RBC) [Entitic vol] 90.7 fL 81-99 [facility] Mean corpuscular hemoglobin (MCH) determinationOrdered By: Brady Marin on 04-02-2025 MCH (RBC) [Entitic mass] 29.8 pg 27.0-32.0 [facility] Mean corpuscular hemoglobin concentration (MCHC) determinationOrdered By: Brayd Marin on 04-02-2025 MCHC (RBC) [Mass/Vol] 32.9 g/dL 32-36 [facility] Mean platelet volume determi nationOrdered By: Brady Marin on 04-02-2025 Platelet mean volume (Bld) [Entitic vol] 8.8 fL 6.2-12.0 [facility] Microscopic analysis of urin e for red blood cells (RBC)Ordered By: Brady Marin on 04-02-2025 Microscopic analysis of urine for red blood cells (RBC) 0-5 SEEN /hpf 0-5 [facility] Monocyte percentageOrdered B y: Brady Marin on 04-02-2025 Monocytes/100 WBC (Bld) 12.2 % High 0-10 [facility] Mucus LM Ql (Urine sed)Order ed By: Brady Marin on 04-02-2025 Mucus Ql (Urine sed) RARE /hpf [facility] Neutrophil percentageOrdered By: Brady Marin on 04-02-2025 Neutrophils/100 WBC (Bld) 75.9 % High 47-70 [facility] Nitrite Test strip Ql (U)Ord ered By: Brady Marin on 04-02-2025 Nitrite Ql (U) Negative Negative [facility] Nucleated red blood cell per centageOrdered By: Brady Marin on 04-02-2025 Nucleated RBC/100 WBC (Bld) [Ratio] 0 % 0-5 [facility] Platelet countOrdered By: Bernardo iel Tomas on 04-02-2025 Platelets (Bld) [#/Vol] 379 10*3/uL 150-450 [facility] Platelet estimateOrdered By: Brady Marin on 04-02-2025 Platelets LM Ql (Bld) ADEQUATE ADEQ [facility] Potassium measurement (mass/ volume)Ordered By: Brady Marin on 04-02-2025 Potassium (Unsp spec) [Mass/Vol] 3.5 mmol/L 3.3-5.1 [facility] Protein Test strip Ql (U)Ord ered By: Brady Marin on 04-02-2025 Protein Ql (U) 15 mg/dl High Negative [facility] RBC Auto (Bld) [#/Vol]Ordere d By: Brady Marin on 04-02-2025 RBC (Bld) [#/Vol] 3.96 10*6/uL Low 4.2-5.4 [facility] Serum creatinine measurement (mass/volume)Ordered By: Brady Marin on 04-02-2025 Creatinine [Mass/Vol] 0.80 mg/dL 0.70-1.20 [facility] Serum globulin measurementOr dered By: Brady Marin on 04-02-2025 Globulin (S) [Mass/Vol] 3.2 g/dL 2.2-4.2 [facility] Serum glucose measurement (m ass/volume)Ordered By: Brady aMrin on 04-02-2025 Glucose [Mass/Vol] 103 mg/dL High 70-99 [facility] Serum or plasma alanine graves otransferase (ALT) measurementOrdered By: Brady Marin on 04-02-2025 ALT [Catalytic activity/Vol] 8 U/L <35 [facility] Serum or plasma albumin bennie urement (mass/volume)Ordered By: Brady Ledbetter on 04-02-2025 Albumin [Mass/Vol] 4.0 g/dL 3.4-4.8 [facility] Serum or plasma albumin/glob ulin mass ratioOrdered By: Brady Marin on 04-02-2025 Albumin/Globulin [Mass ratio] 1.2 {ratio} 0.9-2.4 [facility] Serum or plasma alkaline coy sphatase measurementOrdered By: Brady Marin on 04-02-2025 ALP [Catalytic activity/Vol] 117 U/L High 35-104 [facility] Serum or plasma calcium bennie urement (mass/volume)Ordered By: Brady Ledbetter on 04-02-2025 Calcium [Mass/Vol] 9.9 mg/dL 7.6-11.0 [facility] Serum or plasma urea nitroge n measurement (mass/volume)Ordered By: Brady Marin on 04-02-2025 Urea nitrogen [Mass/Vol] 16 mg/dL 4-19 [facility] Sodium levelOrdered By: Indio Marin on 04-02-2025 Sodium [Moles/Vol] 141 mmol/L 133-145 [facility] Squamous epithelial cells de tection in urine sediment by light microscopyOrdered By: Brady Marin on 04-02-2025 Epithelial cells.squamous LM Ql (Urine sed) 0-5 SEEN /hpf 5-10 [facility] Stool Clostridium difficile detectionOrdered By: Brady Marin on 04-02-2025 C. difficile Ql (Stl) Toxigenic C. difficile Abnormal [facility] Stool Occult Blood iFOBon STOB Positive Normal [facility] Comment on above: Performed By: #### M 100.7900 ####[facility] [address] [facility] [place], [place], [id number] Stool gastrointestinal hemog lobin detection by immunologic methodOrdered By: Brady Marin on 04-02-2025 Lower GI hemoglobin IA Ql (Stl) Positive Abnormal [facility] Total proteinOrdered By: Jg Marin on 04-02-2025 Protein [Mass/Vol] 7.3 g/dL 5.9-8.4 [facility] Urinalysis, Completeon 04-02 EPI,SQUAMOUS 0-5 SEEN Normal 5-10 [facility] Comment on above: Order Comment: ROBERT APARICIO TO SPECIFY Performed By: #### M 100.9296, L400.0001, M100.2995 ####[facility] [address] [place], [place], [address] RBC 0-5 SEEN Normal 0-5 [facility] Comment on above: Order Comment: COLLE CTOR TO SPECIFY Performed By: #### M 100.6796, L400.0001, M100.6795 ####[facility] [address] [place], [address] WBC 0-5 SEEN Normal 0-5 [facility] Comment on above: Order Comment: ROBERT CTOR TO SPECIFY Performed By: #### M 100.6796, L400.0001, M100.6795 ####[facility] [address] [place], [address] BACTERIA RARE Normal None Seen [facility] Comment on above: Order Comment: ROBERT CTOR TO SPECIFY Performed By: #### M 100.6796, L400.0001, M100.6795 ####[facility] [address] [place], [address] Mucus Ql (Urine sed) RARE Normal [facility] Comment on above: Order Comment: ROBERT CTOR TO SPECIFY Performed By: #### M 100.6796, L400.0001, M100.6795 ####[facility] [address] [place], [address] Urine clarityOrdered By: Jg Marin on 04-02-2025 Clarity (U) Clear Clear [facility] Urine color determinationOrd ered By: Brady Marin on 04-02-2025 Color (U) Yellow Yellow [facility] Urine glucose detectionOrder ed By: rBady Marin on 04-02-2025 Glucose Ql (U) Normal mg/dl Normal [facility] Urine leukocyte esterase det ection by dipstickOrdered By: Brady Marin on 04-02-2025 Leukocyte esterase Test strip Ql (U) Negative Negative [facility] Urine pHOrdered By: Brady Stone on 04-02-2025 pH (U) 6.0 [pH] 5.0 - 8.0 [facility] Urine sediment bacteria coun t by microscopy (number/high power field)Ordered By: Brady Marin on 04-02-2025 Bacteria LM.HPF (Urine sed) [#/Area] RARE /hpf None Seen [facility] Urine specific gravity measu rementOrdered By: Brady Marin on 04-02-2025 Specific gravity (U) [Rel density] 1.025 1.002-1.03 0 [facility] Urine urobilinogen measureme ntOrdered By: Bradytai Marin on 04-02-2025 Urobilinogen Ql (U) Normal mg/dl Normal [facility] White blood cell (WBC) [facility] WBC (Bld) [#/Vol] 17.0 10*3/uL High 4.4-11.0 [facility] White blood cell countOrdere d By: [facility] on 04-02-2025 White blood cell count 0-5 SEEN /hpf 0-5 [facility] Urgent Care Visit Reporton 0 03-21-2025 Urgent Care Visit Report Normal [facility] HIP, UNI W/ Pelvis 2-3 Views on 03-10-2025 HIP, UNI W/ Pelvis 2-3 Views Normal [facility] Office Visit Reporton 2024 Office Visit Report Normal [facility] Abdomen/Pelvis without Conto n 02-19-2025 Abdomen/Pelvis without Cont Normal [facility] Urine Cultureon 01-18-2025 URC #1, 2 Below infectio n level. 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 Submit a new specimen if indicated. Normal [facility] Comment on above: Performed By: #### L 501.2400, L100.0500, L101.9900, M100.2200, L501.6710, L400.2010 ####[facility] [address] [place], [address] Abdomen Completeon Abdomen Complete Normal [facility] Amylaseon 01-16-2025 LACEY 54 U/L Normal 28-100 [facility] Comment on above: Performed By: #### L 501.2400, L100.0500, L101.9900, M100.2200, L501.6710, L400.2010 ####[facility] [address] [place], [place], [id number] Automated blood erythrocyte countOrdered By: Patt Jones on 01-16-2025 RBC (Bld) [#/Vol] 3.95 10*6/uL Low 4.2-5.4 [facility] Comment on above: Performed By: #### L 501.2400, L100.0500, L101.9900, M100.2200, L501.6710, L400.2010 ####[facility] [address] [place], [place], [address] Automated blood hematocrit ( percentage)Ordered By: Patt Jones on 01-16-2025 Hematocrit (Bld) [Volume fraction] 35.2 % Low 37-47 [facility] Comment on above: Performed By: #### L 501.2400, L100.0500, L101.9900, M100.2200, L501.6710, L400.2010 ####[facility] [address] [place], [place], [address] Bilirubin Test strip Ql (U)O rdered By: Patt Jones on 01-16-2025 Bilirubin Ql (U) Negative Negative [facility] CBC-Complete Blood Cnt No Di ffon 01-16-2025 RDW SD 54.8 fl High 35.1-43.9 [facility] Comment on above: Performed By: #### L 501.2400, L100.0500, L101.9900, M100.2200, L501.6710, L400.2010 ####[facility] [address] [place], [place], [address] CRPon 01-16-2025 C-REACTIVE PROT < 3.00 Normal 0.0-3.0 [facility] Comment on above: Performed By: #### L 501.2400, L100.0500, L101.9900, M100.2200, L501.6710, L400.2010 ####[facility] [address] [place], [address] Erythrocyte Sed Rateon 01-16 SED RATE 18 mm/hr Normal 0-30 [facility] Comment on above: Performed By: #### L 501.2400, L100.0500, L101.9900, M100.2200, L501.6710, L400.2010 ####[facility] [address] [place], [address] Erythrocyte distribution wid th ratioOrdered By: Patt Jones on 01-16-2025 Erythrocyte distribution width (RBC) [Ratio] 16.9 % High 11.6-14.6 [facility] Comment on above: Performed By: #### L 501.2400, L100.0500, L101.9900, M100.2200, L501.6710, L400.2010 ####[facility] [address] [place], [place], [address] Erythrocyte distribution wid th standard deviationOrdered By: Patt Jones on 01-16-2025 Erythrocyte distribution width (RBC) [Ratio] 54.8 fl High 35.1-43.9 [facility] Erythrocyte sedimentation ra teOrdered By: Patt Jones on 01-16-2025 ESR (Bld) [Velocity] 18 mm/h 0-30 [facility] Hemoglobin measurementOrdere d By: Patt Jones on 01-16-2025 Hemoglobin (Bld) [Mass/Vol] 11.8 g/dL Low 12.0-15.0 [facility] Comment on above: Performed By: #### L 501.2400, L100.0500, L101.9900, M100.2200, L501.6710, L400.2010 ####[facility] [address] [place], [place], [address] Ketones Test strip Ql (U)Ord ered By: Patt Jones on 01-16-2025 Ketones Ql (U) Negative Negative [facility] MCV (mean corpuscular volume ) determinationOrdered By: Patt Jones on 01-16-2025 MCV (RBC) [Entitic vol] 89.1 fL Normal 81-99 [facility] [facility] Comment on above: Performed By: #### L 501.2400, L100.0500, L101.9900, M100.2200, L501.6710, L400.2010 ####[facility] [address] [place], [place], [id number] Mean corpuscular hemoglobin (MCH) determinationOrdered By: Patt Jones on 01-16-2025 MCH (RBC) [Entitic mass] 29.9 pg Normal 27.0-32.0 [facility] Comment on above: Performed By: #### L 501.2400, L100.0500, L101.9900, M100.2200, L501.6710, L400.2010 ####[facility] [address] [place], [place], [id number] Mean corpuscular hemoglobin concentration (MCHC) determinationOrdered By: Patt Jones on 01-16-2025 MCHC (RBC) [Mass/Vol] 33.5 g/dL Normal 32-36 [facility] Comment on above: Performed By: #### L 501.2400, L100.0500, L101.9900, M100.2200, L501.6710, L400.2010 ####[facility] [address] [place], [place], [id number] Mean platelet volume determi nationOrdered By: Patt Jones on 01-16-2025 Platelet mean volume (Bld) [Entitic vol] 9.3 fL Normal 6.2-12.0 [facility] Comment on above: Performed By: #### L 501.2400, L100.0500, L101.9900, M100.2200, L501.6710, L400.2010 ####[facility] [address] [place], [place], [id number] Nitrite Test strip Ql (U)Ord ered By: Patt Jones on 01-16-2025 Nitrite Ql (U) Negative Negative [facility] Platelet countOrdered By: Sudarshan wili Benita on 01-16-2025 Platelets (Bld) [#/Vol] 267 10*3/uL Normal 150-450 [facility] Comment on above: Performed By: #### L 501.2400, L100.0500, L101.9900, M100.2200, L501.6710, L400.2010 ####[facility] [address] [place], [address] Protein Test strip Ql (U)Ord ered By: Patt Jones on 01-16-2025 Protein Ql (U) 30 mg/dl High Negative [facility] Serum or plasma C reactive p rotein measurement (mass/volume)Ordered By: Patt Jones on 01-16-2025 CRP [Mass/Vol] mg/L 0.0-3.0 [facility] Serum or plasma amylase bennie urement (enzymatic activity/volume)Ordered By: Patt Jones on 01-16-2025 Amylase [Catalytic activity/Vol] 54 U/L 28-100 [facility] Urinalysis, Routine (Dipstic k)on 01-16-2025 BILIRUBIN URINE Negative Normal Negative [facility] Comment on above: Order Comment: Urine , Random Performed By: #### L 501.2400, L100.0500, L101.9900, M100.2200, L501.6710, L400.2010 ####[facility] [address] [place], [place], [id number] Clarity (U) Clear Normal Clear [facility] Comment on above: Order Comment: Urine , Random Performed By: #### L 501.2400, L100.0500, L101.9900, M100.2200, L501.6710, L400.2010 ####[facility] [address] [place], [address] Color (U) Straw Normal Yellow [facility] Comment on above: Order Comment: Urine , Random Performed By: #### L 501.2400, L100.0500, L101.9900, M100.2200, L501.6710, L400.2010 ####[facility] [address] [place], [address] GLUCOSE, UR Normal Normal Normal [facility] Comment on above: Order Comment: Urine , Random Performed By: #### L 501.2400, L100.0500, L101.9900, M100.2200, L501.6710, L400.2010 ####[facility] [address] [place], [address] KETONE UR Negative Normal Negative [facility] Comment on above: Order Comment: Urine , Random Performed By: #### L 501.2400, L100.0500, L101.9900, M100.2200, L501.6710, L400.2010 ####[facility] [address] [place], [address] LEUK ESTERASE Negative Normal Negative [facility] Comment on above: Order Comment: Urine , Random Performed By: #### L 501.2400, L100.0500, L101.9900, M100.2200, L501.6710, L400.2010 ####[facility] [address] [place], [address] Nitrite Ql (U) Negative Normal Negative [facility] Comment on above: Order Comment: Urine , Random Performed By: #### L 501.2400, L100.0500, L101.9900, M100.2200, L501.6710, L400.2010 ####[facility] [address] [place], [address] OCCULT BLOOD-UR 50 /ul Abnormal Negative [facility] Comment on above: Order Comment: Urine , Random Performed By: #### L 501.2400, L100.0500, L101.9900, M100.2200, L501.6710, L400.2010 ####[facility] [address] [place], [address] pH UR 6.5 Normal 5.0 - 8.0 [facility] Comment on above: Order Comment: Urine , Random Performed By: #### L 501.2400, L100.0500, L101.9900, M100.2200, L501.6710, L400.2010 ####[facility] [address] [place], [address] PROT DIPSTX 30 mg/dl Abnormal Negative [facility] Comment on above: Order Comment: Urine , Random Performed By: #### L 501.2400, L100.0500, L101.9900, M100.2200, L501.6710, L400.2010 ####[facility] [address] [place], [address] SP.GR. DIPSTX 1.010 Normal 1.002-1.03 0 [facility] Comment on above: Order Comment: Urine , Random Performed By: #### L 501.2400, L100.0500, L101.9900, M100.2200, L501.6710, L400.2010 ####[facility] [address] [place], [address] UROBILI Normal Normal Normal [facility] Comment on above: Order Comment: Urine , Random Performed By: #### L 501.2400, L100.0500, L101.9900, M100.2200, L501.6710, L400.2010 ####[facility] [address] 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 [facility] Bacteria identified Cx Nom (U) Positive Abnormal [facility] Urine glucose detectionOrder ed By: Patt Jones on 01-16-2025 Glucose Ql (U) Normal mg/dl Normal [facility] Urine leukocyte esterase det ection by dipstickOrdered By: Patt Jones on 01-16-2025 Leukocyte esterase Test strip Ql (U) Negative Negative [facility] Urine pHOrdered By: Patt Jones on 01-16-2025 pH (U) 6.5 [pH] 5.0 - 8.0 [facility] Urine specific gravity measu rementOrdered By: Patt Jones on 01-16-2025 Specific gravity (U) [Rel density] 1.010 1.002-1.03 0 [facility] Urine urobilinogen measureme ntOrdered By: Patt Jones on 01-16-2025 Urobilinogen Ql (U) Normal mg/dl Normal [facility] White blood cell (WBC) count Ordered By: Patt Jones on 01-16-2025 WBC (Bld) [#/Vol] 5.3 10*3/uL Normal 4.4-11.0 [facility] Comment on above: Performed By: #### L 501.2400, L100.0500, L101.9900, M100.2200, L501.6710, L400.2010 ####[facility] [address] [place], [place], [id number] Absolute lymphocyte countOrd ered By: Ramu Romero on 01-12-2025 Lymphocytes Auto (Unsp spec) [#/Vol] 1.53 10*3/uL 0.83-4.51 [facility] Absolute neutrophil countOrd ered By: Ramu Romero on 01-12-2025 Neutrophils (Bld) [#/Vol] 5.3 10*3/uL 2.0-7.7 [facility] Anion gap in Serum or Plasma Ordered By: Ramu Romero on 01-12-2025 Anion gap [Moles/Vol] 11 mmol/L 5- [facility] Automated lymphocyte count a s percentage of total leukocytesOrdered By: Ramu Romero on 01-12-2025 Lymphocytes/100 WBC Auto (Unsp spec) 20.3 % - [facility] BUN/creatinine ratioOrdered By: Ramu Romero on 01-12-2025 Urea nitrogen/Creatinine [Mass ratio] 26.2 mg/mg High 10- [facility] Basophil percentageOrdered B y: Ramu Romero on 01-12-2025 Basophils/100 WBC (Bld) 0.5 % 0-1 [facility] Bilirubin, totalOrdered By: Ramu Romero on 01-12-2025 Bilirubin [Mass/Vol] 0.57 mg/dL 0.00-1.30 [facility] CBC W/Diff, Automatedon 01-02 Absolute Lymph 1.53 X10 3/uL Normal 0.83-4.51 [facility] Comment on above: Performed By: #### L 100.0100, L501.2450, L500.4050 ####[facility] [address] [place], [address] Absolute Neut 5.3 X10 3/uL Normal 2.0-7.7 [facility] Comment on above: Performed By: #### L 100.0100, L501.2450, L500.4050 ####[facility] [address] [place], [address] Basophils/100 WBC (Bld) 0.5 % Normal 0-1 [facility] Comment on above: Performed By: #### L 100.0100, L501.2450, L500.4050 ####[facility] [address] [place], [address] Eosinophils/100 WBC (Bld) 0.5 % Normal 0-5 [facility] Comment on above: Performed By: #### L 100.0100, L501.2450, L500.4050 ####[facility] [address] [place], [address] Erythrocyte distribution width (RBC) [Ratio] 17.7 % High 11.6-14.6 [facility] Comment on above: Performed By: #### L 100.0100, L501.2450, L500.4050 ####[facility] [address] [place], [address] Hematocrit (Bld) [Volume fraction] 32.7 % Low 37-47 [facility] Comment on above: Performed By: #### L 100.0100, L501.2450, L500.4050 ####[facility] [address] [place], [address] Hemoglobin (Bld) [Mass/Vol] 10.7 g/dL Low 12.0-15.0 [facility] Comment on above: Performed By: #### L 100.0100, L501.2450, L500.4050 ####[facility] [address] [place], [address] IG% 0.400 Normal 0.0-0.9 [facility] Comment on above: Result Comment: IG% - Immature Granulocytes (promyelocytes, myelocytes andmetamyelocytes) > 1% indicates that a LEFT SHIFT is Present. Performed By: #### L 100.0100, L501.2450, L500.4050 ####[facility] [address] [place], [address] Lymphocytes/100 WBC (Bld) 20.3 % Normal 19-41 [facility] Comment on above: Performed By: #### L 100.0100, L501.2450, L500.4050 ####[facility] [address] [place], [address] MCH (RBC) [Entitic mass] 29.7 pg Normal 27.0-32.0 [facility] Comment on above: Performed By: #### L 100.0100, L501.2450, L500.4050 ####[facility] [address] [place], [address] MCHC (RBC) [Mass/Vol] 32.7 g/dL Normal 32-36 [facility] Comment on above: Performed By: #### L 100.0100, L501.2450, L500.4050 ####[facility] [address] [place], [address] MCV (RBC) [Entitic vol] 90.8 fL Normal 81-99 [facility] Comment on above: Performed By: #### L 100.0100, L501.2450, L500.4050 ####[facility] [address] [place], [address] Monocytes/100 WBC (Bld) 8.6 % Normal 0-10 [facility] Comment on above: Performed By: #### L 100.0100, L501.2450, L500.4050 ####[facility] [address] [place], [address] Neutrophils/100 WBC (Bld) 69.7 % Normal 47-70 [facility] Comment on above: Performed By: #### L 100.0100, L501.2450, L500.4050 ####[facility] [address] [place], [address] Nucleated RBC (Bld) [#/Vol] 0 10*3/uL Normal 0-5 [facility] Comment on above: Performed By: #### L 100.0100, L501.2450, L500.4050 ####[facility] [address] [place], [address] Platelet mean volume (Bld) [Entitic vol] 8.9 fL Normal 6.2-12.0 [facility] Comment on above: Performed By: #### L 100.0100, L501.2450, L500.4050 ####[facility] [address] [place], [address] Platelets (Bld) [#/Vol] 240 10*3/uL Normal 150-450 [facility] Comment on above: Performed By: #### L 100.0100, L501.2450, L500.4050 ####[facility] [address] [place], [address] RBC (Bld) [#/Vol] 3.60 10*6/uL Low 4.2-5.4 [facility] Comment on above: Performed By: #### L 100.0100, L501.2450, L500.4050 ####[facility] [address] [place], [address] RDW SD 59.3 fl High 35.1-43.9 [facility] Comment on above: Performed By: #### L 100.0100, L501.2450, L500.4050 ####[facility] [address] [place], [address] WBC (Bld) [#/Vol] 7.5 10*3/uL Normal 4.4-11.0 [facility] Comment on above: Performed By: #### L 100.0100, L501.2450, L500.4050 ####[facility] [address] [place], [address] Carbon dioxide, total [Moles /volume] in Central venous bloodOrdered By: Ramu Romero on 01-12-2025 CO2 [Moles/Vol] 23.0 mmol/L 21.0-32.0 [facility] Chloride assayOrdered By: Eufemia Romero on 01-12-2025 Chloride [Moles/Vol] 109 mmol/L High 98-108 [facility] Metabolic Prof ilon 01-12-2025 Albumin [Mass/Vol] 4.0 g/dL Normal 3.4-4.8 [facility] Comment on above: Performed By: #### L 100.0100, L501.2450, L500.4050 ####[facility] [address] [place], [address] Albumin/Globulin [Mass ratio] 1.4 {ratio} Normal 0.9-2.4 [facility] Comment on above: Performed By: #### L 100.0100, L501.2450, L500.4050 ####[facility] [address] [place], [address] ALK PHOS 116 U/L High 35-104 [facility] Comment on above: Performed By: #### L 100.0100, L501.2450, L500.4050 ####[facility] [address] [place], [address] ALT [Catalytic activity/Vol] 14 U/L Normal <=34 [facility] Comment on above: Performed By: #### L 100.0100, L501.2450, L500.4050 ####[facility] [address] [place], [address] AST [Catalytic activity/Vol] 19 U/L Normal <=31 [facility] Comment on above: Performed By: #### L 100.0100, L501.2450, L500.4050 ####[facility] [address] [place], [address] Bilirubin [Mass/Vol] 0.57 mg/dL Normal 0.00-1.30 [facility] Comment on above: Performed By: #### L 100.0100, L501.2450, L500.4050 ####[facility] [address] [place], [address] BUN/CRE 26.2 RATIO High 10-20 [facility] Comment on above: Performed By: #### L 100.0100, L501.2450, L500.4050 ####[facility] [address] [place], [address] Calcium [Mass/Vol] 9.6 mg/dL Normal 7.6-11.0 [facility] Comment on above: Performed By: #### L 100.0100, L501.2450, L500.4050 ####[facility] [address] [place], [address] Chloride [Moles/Vol] 109 mmol/L High 98-108 [facility] Comment on above: Performed By: #### L 100.0100, L501.2450, L500.4050 ####[facility] [address] [place], [address] CO2 [Moles/Vol] 23.0 mmol/L Normal 21.0-32.0 [facility] Comment on above: Performed By: #### L 100.0100, L501.2450, L500.4050 ####[facility] [address] [place], [address] Creatinine [Mass/Vol] 0.95 mg/dL Normal 0.70-1.20 [facility] Comment on above: Performed By: #### L 100.0100, L501.2450, L500.4050 ####[facility] [address] [place], [address] ECRCL 48.14 ml/min Low 50-250 [facility] Comment on above: Performed By: #### L 100.0100, L501.2450, L500.4050 ####[facility] [address] [place], [address] GAP 11 Normal 5-15 [facility] Comment on above: Performed By: #### L 100.0100, L501.2450, L500.4050 ####[facility] [address] [place], [address] GFR/1.73 sq M.predicted among non-blacks MDRD (S/P/Bld) [Vol rate/Area] 64 mL/min/{1.73_m2} Normal >60 [facility] Comment on above: Result Comment: mL/m in/1.73m2 CKD-EPI Creatinine Equation (2020) Performed By: #### L 100.0100, L501.2450, L500.4050 ####[facility] [address] [place], [address] Globulin (S) [Mass/Vol] 2.8 g/dL Normal 2.2-4.2 [facility] Comment on above: Performed By: #### L 100.0100, L501.2450, L500.4050 ####[facility] [address] [place], [address] Glucose [Mass/Vol] 111 mg/dL High 70-99 [facility] Comment on above: Performed By: #### L 100.0100, L501.2450, L500.4050 ####[facility] [address] [place], [address] Potassium [Moles/Vol] 3.9 mmol/L Normal 3.3-5.1 [facility] Comment on above: Result Comment: Hemo lysis present, Results??could be affected.?? Performed By: #### L 100.0100, L501.2450, L500.4050 ####[facility] [address] [place], [address] Sodium [Moles/Vol] 142 mmol/L Normal 133-145 [facility] Comment on above: Performed By: #### L 100.0100, L501.2450, L500.4050 ####[facility] [address] [place], [address] T PROT 6.8 g/dL Normal 5.9-8.4 [facility] Comment on above: Performed By: #### L 100.0100, L501.2450, L500.4050 ####[facility] [address] [place], [address] Urea nitrogen [Mass/Vol] 25 mg/dL High 4-19 [facility] Comment on above: Performed By: #### L 100.0100, L501.2450, L500.4050 ####[facility] [address] [place], [address] Emergency Department Summary on 01-12-2025 Emergency Department Summary Normal [facility] Eosinophil percentageOrdered By: Ramu Romero on 01-12-2025 Eosinophils/100 WBC (Bld) 0.5 % 0-5 [facility] Erythrocyte distribution wid th ratioOrdered By: Ramu Romero on 01-12-2025 Erythrocyte distribution width (RBC) [Ratio] 17.7 % High 11.6-14.6 [facility] Erythrocyte distribution wid th standard deviationOrdered By: Ramu Romero on 01-12-2025 Erythrocyte distribution width (RBC) [Ratio] 59.3 fl High 35.1-43.9 [facility] Glomerular filtration rate ( GFR) estimation/1.73 sq m using serum, plasma, or whole bOrdered By: Ramu Romero on 01-12-2025 GFR/1.73 sq M.predicted among non-blacks MDRD (S/P/Bld) [Vol rate/Area] 64 mL/min/{1.73_m2} >60 [facility] Comment on above: mL/min/1.73m2 CKD-EP I Creatinine Equation (2020) Hematocrit Auto (Bld) [Volum e fraction]Ordered By: Ramu Romero on 01-12-2025 Hematocrit (Bld) [Volume fraction] 32.7 % Low 37-47 [facility] Hemoglobin measurementOrdere d By: Ramu Romero on 01-12-2025 Hemoglobin (Bld) [Mass/Vol] 10.7 g/dL Low 12.0-15.0 [facility] Immature granulocytes/100 WB C Auto (Bld)Ordered By: Ramu Romero on 01-12-2025 Immature granulocytes/100 WBC (Bld) 0.400 % 0.0-0.9 [facility] Comment on above: IG% - Immature Granu locytes (promyelocytes, myelocytes and metamyelocytes) > 1% indicates that a LEFT SHIFT is Present. Laboratory - Chemistry and C hemistry - challengeOrdered By: Ramu Romero on 01-12-2025 AST [Catalytic activity/Vol] 19 U/L <32 [facility] Lipaseon 01-12-2025 Lipase [Catalytic activity/Vol] 32 U/L Normal 13-75 [facility] Comment on above: Result Comment: Pilar esparza note:LIPASE revised reference range effective 22.New Lipase methodology. Expected to produce lower valuesthan the previous assay method.NEW Reference Range: 13 - 75 U/L Performed By: #### L 100.0100, L501.2450, L500.4050 ####[facility] [address] [place], [address] Lipase measurementOrdered By : Ramu Romero on 01-12-2025 Lipase [Catalytic activity/Vol] 32 U/L 13- [facility] Comment on above: Please note:LIPASE r evised reference range effective 22. New Lipase methodology. Expected to produce lower values than the previous assay method. NEW Reference Range: 13 - 75 U/L MCV (mean corpuscular volume ) determinationOrdered By: Ramu Romero on 01-12-2025 MCV (RBC) [Entitic vol] 90.8 fL 81-99 [facility] Mean corpuscular hemoglobin (MCH) determinationOrdered By: Ramu Romero on 01-12-2025 MCH (RBC) [Entitic mass] 29.7 pg 27.0-32.0 [facility] Mean corpuscular hemoglobin concentration (MCHC) determinationOrdered By: Ramu Romero on 01-12-2025 MCHC (RBC) [Mass/Vol] 32.7 g/dL 32-36 [facility] Mean platelet volume determi nationOrdered By: Ramu Romero on 01-12-2025 Platelet mean volume (Bld) [Entitic vol] 8.9 fL 6.2-12.0 [facility] Monocyte percentageOrdered B y: Ramu Romero on 01-12-2025 Monocytes/100 WBC (Bld) 8.6 % 0-10 [facility] Neutrophil percentageOrdered By: Ramu Romero on 01-12-2025 Neutrophils/100 WBC (Bld) 69.7 % 47-70 [facility] Nucleated red blood cell per centageOrdered By: Ramu Romero on 01-12-2025 Nucleated RBC/100 WBC (Bld) [Ratio] 0 % 0-5 [facility] Platelet countOrdered By: Eufemia Romero on 01-12-2025 Platelets (Bld) [#/Vol] 240 10*3/uL 150-450 [facility] Potassium measurement (mass/ volume)Ordered By: Ramu Romero on 01-12-2025 Potassium (Unsp spec) [Mass/Vol] 3.9 mmol/L 3.3-5.1 [facility] Comment on above: Hemolysis present, R esults could be affected. RBC Auto (Bld) [#/Vol]Ordere d By: Ramu Romero on 01-12-2025 RBC (Bld) [#/Vol] 3.60 10*6/uL Low 4.2-5.4 [facility] Serum creatinine measurement (mass/volume)Ordered By: Ramu Romero on 01-12-2025 Creatinine [Mass/Vol] 0.95 mg/dL 0.70-1.20 [facility] Serum globulin measurementOr dered By: Ramu Romero on 01-12-2025 Globulin (S) [Mass/Vol] 2.8 g/dL 2.2-4.2 [facility] Serum glucose measurement (m ass/volume)Ordered By: Ramu Romero on 01-12-2025 Glucose [Mass/Vol] 111 mg/dL High 70-99 [facility] Serum or plasma alanine graves otransferase (ALT) measurementOrdered By: Ramu Romero on 01-12-2025 ALT [Catalytic activity/Vol] 14 U/L <35 [facility] Serum or plasma albumin bennie urement (mass/volume)Ordered By: Ramu Romero on 01-12-2025 Albumin [Mass/Vol] 4.0 g/dL 3.4-4.8 [facility] Serum or plasma albumin/glob ulin mass ratioOrdered By: Ramu Romero on 01-12-2025 Albumin/Globulin [Mass ratio] 1.4 {ratio} 0.9-2.4 [facility] Serum or plasma alkaline coy sphatase measurementOrdered By: Ramu Romero on 01-12-2025 ALP [Catalytic activity/Vol] 116 U/L High 35-104 [facility] Serum or plasma calcium bennie urement (mass/volume)Ordered By: Ramu Romero on 01-12-2025 Calcium [Mass/Vol] 9.6 mg/dL 7.6-11.0 [facility] Serum or plasma urea nitroge n measurement (mass/volume)Ordered By: Ramu Romero on 01-12-2025 Urea nitrogen [Mass/Vol] 25 mg/dL High 4-19 [facility] Sodium levelOrdered By: Anderson Romero on 01-12-2025 Sodium [Moles/Vol] 142 mmol/L 133-145 [facility] Total proteinOrdered By: Brian Romero on 01-12-2025 Protein [Mass/Vol] 6.8 g/dL 5.9-8.4 [facility] White blood cell (WBC) count Ordered By: Ramu Romero on 01-12-2025 WBC (Bld) [#/Vol] 7.5 10*3/uL 4.4-11.0 [facility] Absolute lymphocyte countOrd ered By: Manisha Navas on 01-03-2025 Lymphocytes Auto (Unsp spec) [#/Vol] 1.14 10*3/uL 0.83-4.51 [facility] Absolute neutrophil countOrd ered By: Manisha Navas on 01-03-2025 Neutrophils (Bld) [#/Vol] 2.7 10*3/uL 2.0-7.7 [facility] Anion gap in Serum or Plasma Ordered By: Manisha Navas on 01-03-2025 Anion gap [Moles/Vol] 11 mmol/L 5-15 [facility] Automated lymphocyte count a s percentage of total leukocytesOrdered By: Manisha Navas on 01-03-2025 Lymphocytes/100 WBC Auto (Unsp spec) 25.6 % 19- [facility] BUN/creatinine ratioOrdered By: [facility] Yosef on 01-03-2025 Urea nitrogen/Creatinine [Mass ratio] 18.6 mg/mg 10- [facility] Basophil percentageOrdered B y: Manisha Navas on 01-03-2025 Basophils/100 WBC (Bld) 0.9 % 0-1 [facility] Bilirubin, totalOrdered By: Manishating Navas on 01-03-2025 Bilirubin [Mass/Vol] 1.20 mg/dL 0.00-1.30 [facility] CBC W/Diff, Automatedon Absolute Lymph 1.14 X10 3/uL Normal 0.83-4.51 [facility] Comment on above: Performed By: #### L 500.4050, L100.0100 ####[facility] [address] [place], [address] Absolute Neut 2.7 X10 3/uL Normal 2.0-7.7 [facility] Comment on above: Performed By: #### L 500.4050, L100.0100 ####[facility] [address] [place], [address] Basophils/100 WBC (Bld) 0.9 % Normal 0-1 [facility] Comment on above: Performed By: #### L 500.4050, L100.0100 ####[facility] [address] [place], [address] Eosinophils/100 WBC (Bld) 1.3 % Normal 0-5 [facility] Comment on above: Performed By: #### L 500.4050, L100.0100 ####[facility] [address] [place], [address] Erythrocyte distribution width (RBC) [Ratio] 17.8 % High 11.6-14.6 [facility] Comment on above: Performed By: #### L 500.4050, L100.0100 ####[facility] [address] [place], [address] Hematocrit (Bld) [Volume fraction] 36.4 % Low 37-47 [facility] Comment on above: Performed By: #### L 500.4050, L100.0100 ####[facility] [address] [place], [address] Hemoglobin (Bld) [Mass/Vol] 11.8 g/dL Low 12.0-15.0 [facility] Comment on above: Performed By: #### L 500.4050, L100.0100 ####[facility] [address] [place], [address] IG% 0.200 Normal 0.0-0.9 [facility] Comment on above: Result Comment: IG% - Immature Granulocytes (promyelocytes, myelocytes andmetamyelocytes) > 1% indicates that a LEFT SHIFT is Present. Performed By: #### L 500.4050, L100.0100 ####[facility] [address] [place], [address] Lymphocytes/100 WBC (Bld) 25.6 % Normal 19-41 [facility] Comment on above: Performed By: #### L 500.4050, L100.0100 ####[facility] [address] [place], [address] MCH (RBC) [Entitic mass] 28.9 pg Normal 27.0-32.0 [facility] Comment on above: Performed By: #### L 500.4050, L100.0100 ####[facility] [address] [place], [address] MCHC (RBC) [Mass/Vol] 32.4 g/dL Normal 32-36 [facility] Comment on above: Performed By: #### L 500.4050, L100.0100 ####[facility] [address] [place], [address] MCV (RBC) [Entitic vol] 89.2 fL Normal 81-99 [facility] Comment on above: Performed By: #### L 500.4050, L100.0100 ####[facility] [address] [place], [address] Monocytes/100 WBC (Bld) 11.7 % High 0-10 [facility] Comment on above: Performed By: #### L 500.4050, L100.0100 ####[facility] [address] [place], [address] Neutrophils/100 WBC (Bld) 60.3 % Normal 47-70 [facility] Comment on above: Performed By: #### L 500.4050, L100.0100 ####[facility] [address] [place], [address] Nucleated RBC (Bld) [#/Vol] 0 10*3/uL Normal 0-5 [facility] Comment on above: Performed By: #### L 500.4050, L100.0100 ####[facility] [address] [place], [address] Platelet mean volume (Bld) [Entitic vol] 9.1 fL Normal 6.2-12.0 [facility] Comment on above: Performed By: #### L 500.4050, L100.0100 ####[facility] [address] [place], [address] Platelets (Bld) [#/Vol] 263 10*3/uL Normal 150-450 [facility] Comment on above: Performed By: #### L 500.4050, L100.0100 ####[facility] [address] [place], [address] RBC (Bld) [#/Vol] 4.08 10*6/uL Low 4.2-5.4 [facility] Comment on above: Performed By: #### L 500.4050, L100.0100 ####[facility] [address] [place], [address] RDW SD 58.0 fl High 35.1-43.9 [facility] Comment on above: Performed By: #### L 500.4050, L100.0100 ####[facility] [address] [place], [address] WBC (Bld) [#/Vol] 4.5 10*3/uL Normal 4.4-11.0 [facility] Comment on above: Performed By: #### L 500.4050, L100.0100 ####[facility] [address] [place], [address] Carbon dioxide, total [Moles /volume] in Central venous bloodOrdered By: Manisha Navas on 01-03-2025 CO2 [Moles/Vol] 26.5 mmol/L 21.0-32.0 [facility] Chloride assayOrdered By: Tony Navas on 01-03-2025 Chloride [Moles/Vol] 102 mmol/L 98-108 [facility] Comprehensive Metabolic Prof ilon 01-03-2025 Albumin [Mass/Vol] 4.3 g/dL Normal 3.4-4.8 [facility] Comment on above: Performed By: #### L 500.4050, L100.0100 ####[facility] [address] [place], [address] Albumin/Globulin [Mass ratio] 1.6 {ratio} Normal 0.9-2.4 [facility] Comment on above: Performed By: #### L 500.4050, L100.0100 ####[facility] [address] [place], [address] ALK PHOS 137 U/L High 35-104 [facility] Comment on above: Performed By: #### L 500.4050, L100.0100 ####[facility] [address] [place], [address] ALT [Catalytic activity/Vol] 29 U/L Normal <=34 [facility] Comment on above: Performed By: #### L 500.4050, L100.0100 ####[facility] [address] [place], [address] AST [Catalytic activity/Vol] 26 U/L Normal <=31 [facility] Comment on above: Performed By: #### L 500.4050, L100.0100 ####[facility] [address] [place], [address] Bilirubin [Mass/Vol] 1.20 mg/dL Normal 0.00-1.30 [facility] Comment on above: Performed By: #### L 500.4050, L100.0100 ####[facility] [address] [place], [address] BUN/CRE 18.6 RATIO Normal 10-20 [facility] Comment on above: Performed By: #### L 500.4050, L100.0100 ####[facility] [address] [place], [address] Calcium [Mass/Vol] 10.1 mg/dL Normal 7.6-11.0 [facility] Comment on above: Performed By: #### L 500.4050, L100.0100 ####[facility] [address] [place], [address] Chloride [Moles/Vol] 102 mmol/L Normal 98-108 [facility] Comment on above: Performed By: #### L 500.4050, L100.0100 ####[facility] [address] [place], [address] CO2 [Moles/Vol] 26.5 mmol/L Normal 21.0-32.0 [facility] Comment on above: Performed By: #### L 500.4050, L100.0100 ####[facility] [address] [place], [address] Creatinine [Mass/Vol] 0.87 mg/dL Normal 0.70-1.20 [facility] Comment on above: Performed By: #### L 500.4050, L100.0100 ####[facility] [address] [place], [address] GAP 11 Normal 5-15 [facility] Comment on above: Performed By: #### L 500.4050, L100.0100 ####[facility] [address] [place], [address] GFR/1.73 sq M.predicted among non-blacks MDRD (S/P/Bld) [Vol rate/Area] 71 mL/min/{1.73_m2} Normal >60 [facility] Comment on above: Result Comment: mL/m in/1.73m2 CKD-EPI Creatinine Equation (2020) Performed By: #### L 500.4050, L100.0100 ####[facility] [address] [place], [address] Globulin (S) [Mass/Vol] 2.7 g/dL Normal 2.2-4.2 [facility] Comment on above: Performed By: #### L 500.4050, L100.0100 ####[facility] [address] [place], [address] Glucose [Mass/Vol] 97 mg/dL Normal 70-99 [facility] Comment on above: Performed By: #### L 500.4050, L100.0100 ####[facility] [address] [place], [address] Potassium [Moles/Vol] 3.8 mmol/L Normal 3.3-5.1 [facility] Comment on above: Performed By: #### L 500.4050, L100.0100 ####[facility] [address] [place], [address] Sodium [Moles/Vol] 139 mmol/L Normal 133-145 [facility] Comment on above: Performed By: #### L 500.4050, L100.0100 ####[facility] [address] [place], [address] T PROT 7.0 g/dL Normal 5.9-8.4 [facility] Comment on above: Performed By: #### L 500.4050, L100.0100 ####[facility] [address] [place], [address] Urea nitrogen [Mass/Vol] 16 mg/dL Normal 4-19 [facility] Comment on above: Performed By: #### L 500.4050, L100.0100 ####[facility] [address] [place], [address] Eosinophil percentageOrdered By: Manisha Navas on 01-03-2025 Eosinophils/100 WBC (Bld) 1.3 % 0-5 [facility] Erythrocyte distribution wid th ratioOrdered By: Manisha Navas on 01-03-2025 Erythrocyte distribution width (RBC) [Ratio] 17.8 % High 11.6-14.6 [facility] Erythrocyte distribution wid th standard deviationOrdered By: Manisha Navas on 01-03-2025 Erythrocyte distribution width (RBC) [Ratio] 58.0 fl High 35.1-43.9 [facility] Glomerular filtration rate ( GFR) estimation/1.73 sq m using serum, plasma, or whole bOrdered By: Manisha Navas on 01-03-2025 GFR/1.73 sq M.predicted among non-blacks MDRD (S/P/Bld) [Vol rate/Area] 71 mL/min/{1.73_m2} >60 [facility] Comment on above: mL/min/1.73m2 CKD-EP I Creatinine Equation (2020) Hematocrit Auto (Bld) [Volum e fraction]Ordered By: Manisha Navas on 01-03-2025 Hematocrit (Bld) [Volume fraction] 36.4 % Low 37-47 [facility] Hemoglobin measurementOrdere d By: Manisha Navas on 01-03-2025 Hemoglobin (Bld) [Mass/Vol] 11.8 g/dL Low 12.0-15.0 [facility] Immature granulocytes/100 WB C Auto (Bld)Ordered By: Manisha Navas on 01-03-2025 Immature granulocytes/100 WBC (Bld) 0.200 % 0.0-0.9 [facility] Comment on above: IG% - Immature Granu locytes (promyelocytes, myelocytes and metamyelocytes) > 1% indicates that a LEFT SHIFT is Present. Laboratory - Chemistry and C hemistry - challengeOrdered By: Manisha Navas on 01-03-2025 AST [Catalytic activity/Vol] 26 U/L <32 [facility] MCV (mean corpuscular volume ) determinationOrdered By: Manisha Navas on 01-03-2025 MCV (RBC) [Entitic vol] 89.2 fL 81-99 [facility] Mean corpuscular hemoglobin (MCH) determinationOrdered By: Manisha Navas on 01-03-2025 MCH (RBC) [Entitic mass] 28.9 pg 27.0-32.0 [facility] Mean corpuscular hemoglobin concentration (MCHC) determinationOrdered By: Manisha Navas on 01-03-2025 MCHC (RBC) [Mass/Vol] 32.4 g/dL 32-36 [facility] Mean platelet volume determi nationOrdered By: Manisha Navas on 01-03-2025 Platelet mean volume (Bld) [Entitic vol] 9.1 fL 6.2-12.0 [facility] Monocyte percentageOrdered B y: Manisha Navas on 01-03-2025 Monocytes/100 WBC (Bld) 11.7 % High 0-10 [facility] Neutrophil percentageOrdered By: Manisha Navas on 01-03-2025 Neutrophils/100 WBC (Bld) 60.3 % 47-70 [facility] Nucleated red blood cell per centageOrdered By: Manisha Navas on 01-03-2025 Nucleated RBC/100 WBC (Bld) [Ratio] 0 % 0-5 [facility] Platelet countOrdered By: Tony Navas on 01-03-2025 Platelets (Bld) [#/Vol] 263 10*3/uL 150-450 [facility] Potassium measurement (mass/ volume)Ordered By: Manisha Navas on 01-03-2025 Potassium (Unsp spec) [Mass/Vol] 3.8 mmol/L 3.3-5.1 [facility] RBC Auto (Bld) [#/Vol]Ordere d By: Manisha Navas on 01-03-2025 RBC (Bld) [#/Vol] 4.08 10*6/uL Low 4.2-5.4 [facility] Serum creatinine measurement (mass/volume)Ordered By: Manisha Navas on 01-03-2025 Creatinine [Mass/Vol] 0.87 mg/dL 0.70-1.20 [facility] Serum globulin measurementOr dered By: Manisha Navas on 01-03-2025 Globulin (S) [Mass/Vol] 2.7 g/dL 2.2-4.2 [facility] Serum glucose measurement (m ass/volume)Ordered By: Manisha Navas on 01-03-2025 Glucose [Mass/Vol] 97 mg/dL 70-99 [facility] Serum or plasma alanine graves otransferase (ALT) measurementOrdered By: Manisha Navas on 01-03-2025 ALT [Catalytic activity/Vol] 29 U/L <35 [facility] Serum or plasma albumin bennie urement (mass/volume)Ordered By: Manisha Navas on 01-03-2025 Albumin [Mass/Vol] 4.3 g/dL 3.4-4.8 [facility] Serum or plasma albumin/glob ulin mass ratioOrdered By: Manisha Navas on 01-03-2025 Albumin/Globulin [Mass ratio] 1.6 {ratio} 0.9-2.4 [facility] Serum or plasma alkaline coy sphatase measurementOrdered By: Manisha Navas on 01-03-2025 ALP [Catalytic activity/Vol] 137 U/L High 35-104 [facility] Serum or plasma calcium bennie urement (mass/volume)Ordered By: Manisha Navas on 01-03-2025 Calcium [Mass/Vol] 10.1 mg/dL 7.6-11.0 [facility] Serum or plasma urea nitroge n measurement (mass/volume)Ordered By: Manisha Navas on 01-03-2025 Urea nitrogen [Mass/Vol] 16 mg/dL 4-19 [facility] Sodium levelOrdered By: Pradip Navas on 01-03-2025 Sodium [Moles/Vol] 139 mmol/L 133-145 [facility] Total proteinOrdered By: Judie Navas on 01-03-2025 Protein [Mass/Vol] 7.0 g/dL 5.9-8.4 [facility] White blood cell (WBC) count Ordered By: Manisha Navas on 01-03-2025 WBC (Bld) [#/Vol] 4.5 10*3/uL 4.4-11.0 [facility] Absolute lymphocyte countOrd ered By: Manisha Navas on 11-22-2024 Lymphocytes Auto (Unsp spec) [#/Vol] 1.64 10*3/uL 0.83-4.51 [facility] Absolute neutrophil countOrd ered By: Manisha Navas on 11-22-2024 Neutrophils (Bld) [#/Vol] 3.9 10*3/uL 2.0-7.7 [facility] Anion gap in Serum or Plasma Ordered By: Manisha Navas on 11-22-2024 Anion gap [Moles/Vol] 12 mmol/L 5-15 [facility] Automated lymphocyte count a s percentage of total leukocytesOrdered By: Manisha Navas on 11-22-2024 Lymphocytes/100 WBC Auto (Unsp spec) 26.7 % 19-41 [facility] BUN/creatinine ratioOrdered By: Manisha Navas on 11-22-2024 Urea nitrogen/Creatinine [Mass ratio] 15.8 mg/mg 10-20 [facility] Basophil percentageOrdered B y: Manisha Navas on 11-22-2024 Basophils/100 WBC (Bld) 0.7 % 0-1 [facility] Bilirubin, totalOrdered By: Manisha Navas on 11-22-2024 Bilirubin [Mass/Vol] 0.64 mg/dL 0.00-1.30 [facility] CBC W/Diff, Automatedon 11-03 Absolute Lymph 1.64 X10 3/uL Normal 0.83-4.51 [facility] Comment on above: Performed By: #### L 100.0100, L500.4050 ####[facility] [address] [place], [address] Absolute Neut 3.9 X10 3/uL Normal 2.0-7.7 [facility] Comment on above: Performed By: #### L 100.0100, L500.4050 ####[facility] [address] [place], [address] Basophils/100 WBC (Bld) 0.7 % Normal 0-1 [facility] Comment on above: Performed By: #### L 100.0100, L500.4050 ####[facility] [address] [place], [address] Eosinophils/100 WBC (Bld) 0.2 % Normal 0-5 [facility] Comment on above: Performed By: #### L 100.0100, L500.4050 ####[facility] [address] [place], [address] Erythrocyte distribution width (RBC) [Ratio] 15.6 % High 11.6-14.6 [facility] Comment on above: Performed By: #### L 100.0100, L500.4050 ####[facility] [address] [place], [address] Hematocrit (Bld) [Volume fraction] 37.2 % Normal 37-47 [facility] Comment on above: Performed By: #### L 100.0100, L500.4050 ####[facility] [address] [place], [address] Hemoglobin (Bld) [Mass/Vol] 11.9 g/dL Low 12.0-15.0 [facility] Comment on above: Performed By: #### L 100.0100, L500.4050 ####[facility] [address] [place], [address] IG% 0.200 Normal 0.0-0.9 [facility] Comment on above: Result Comment: IG% - Immature Granulocytes (promyelocytes, myelocytes andmetamyelocytes) > 1% indicates that a LEFT SHIFT is Present. Performed By: #### L 100.0100, L500.4050 ####[facility] [address] [place], [address] Lymphocytes/100 WBC (Bld) 26.7 % Normal 19-41 [facility] Comment on above: Performed By: #### L 100.0100, L500.4050 ####[facility] [address] [place], [address] MCH (RBC) [Entitic mass] 27.9 pg Normal 27.0-32.0 [facility] Comment on above: Performed By: #### L 100.0100, L500.4050 ####[facility] [address] [place], [address] MCHC (RBC) [Mass/Vol] 32.0 g/dL Normal 32-36 [facility] Comment on above: Performed By: #### L 100.0100, L500.4050 ####[facility] [address] [place], [address] MCV (RBC) [Entitic vol] 87.1 fL Normal 81-99 [facility] Comment on above: Performed By: #### L 100.0100, L500.4050 ####[facility] [address] [place], [address] Monocytes/100 WBC (Bld) 9.4 % Normal 0-10 [facility] Comment on above: Performed By: #### L 100.0100, L500.4050 ####[facility] [address] [place], [address] Neutrophils/100 WBC (Bld) 62.8 % Normal 47-70 [facility] Comment on above: Performed By: #### L 100.0100, L500.4050 ####[facility] [address] [place], [address] Nucleated RBC (Bld) [#/Vol] 0 10*3/uL Normal 0-5 [facility] Comment on above: Performed By: #### L 100.0100, L500.4050 ####[facility] [address] [place], [address] Platelet mean volume (Bld) [Entitic vol] 9.2 fL Normal 6.2-12.0 [facility] Comment on above: Performed By: #### L 100.0100, L500.4050 ####[facility] [address] [place], [address] Platelets (Bld) [#/Vol] 297 10*3/uL Normal 150-450 [facility] Comment on above: Performed By: #### L 100.0100, L500.4050 ####[facility] [address] [place], [address] RBC (Bld) [#/Vol] 4.27 10*6/uL Normal 4.2-5.4 [facility] Comment on above: Performed By: #### L 100.0100, L500.4050 ####[facility] [address] [place], [address] RDW SD 49.1 fl High 35.1-43.9 [facility] Comment on above: Performed By: #### L 100.0100, L500.4050 ####[facility] [address] [place], [address] WBC (Bld) [#/Vol] 6.2 10*3/uL Normal 4.4-11.0 [facility] Comment on above: Performed By: #### L 100.0100, L500.4050 ####[facility] [address] [place], [address] Carbon dioxide, total [Moles /volume] in Central venous bloodOrdered By: Manisha Navas on 11-22-2024 CO2 [Moles/Vol] 26.4 mmol/L 21.0-32.0 [facility] Chloride assayOrdered By: Tony Navas on 11-22-2024 Chloride [Moles/Vol] 102 mmol/L 98-108 [facility] Comprehensive Metabolic Prof ilon 11-22-2024 Albumin [Mass/Vol] 4.1 g/dL Normal 3.4-4.8 [facility] Comment on above: Performed By: #### L 100.0100, L500.4050 ####[facility] [address] [place], [address] Albumin/Globulin [Mass ratio] 1.4 {ratio} Normal 0.9-2.4 [facility] Comment on above: Performed By: #### L 100.0100, L500.4050 ####[facility] [address] [place], [address] ALK PHOS 105 U/L High 35-104 [facility] Comment on above: Performed By: #### L 100.0100, L500.4050 ####[facility] [address] [place], [address] ALT [Catalytic activity/Vol] 11 U/L Normal <=34 [facility] Comment on above: Performed By: #### L 100.0100, L500.4050 ####[facility] [address] [place], [address] AST [Catalytic activity/Vol] 21 U/L Normal <=31 [facility] Comment on above: Performed By: #### L 100.0100, L500.4050 ####[facility] [address] [place], [address] Bilirubin [Mass/Vol] 0.64 mg/dL Normal 0.00-1.30 [facility] Comment on above: Performed By: #### L 100.0100, L500.4050 ####[facility] [address] [place], [address] BUN/CRE 15.8 RATIO Normal 10-20 [facility] Comment on above: Performed By: #### L 100.0100, L500.4050 ####[facility] [address] [place], [address] Calcium [Mass/Vol] 10.5 mg/dL Normal 7.6-11.0 [facility] Comment on above: Performed By: #### L 100.0100, L500.4050 ####[facility] [address] [place], [address] Chloride [Moles/Vol] 102 mmol/L Normal 98-108 [facility] Comment on above: Performed By: #### L 100.0100, L500.4050 ####[facility] [address] [place], [address] CO2 [Moles/Vol] 26.4 mmol/L Normal 21.0-32.0 [facility] Comment on above: Performed By: #### L 100.0100, L500.4050 ####[facility] [address] [place], [address] Creatinine [Mass/Vol] 0.88 mg/dL Normal 0.70-1.20 [facility] Comment on above: Performed By: #### L 100.0100, L500.4050 ####[facility] [address] [place], [address] GAP 12 Normal 5-15 [facility] Comment on above: Performed By: #### L 100.0100, L500.4050 ####[facility] [address] [place], [address] GFR/1.73 sq M.predicted among non-blacks MDRD (S/P/Bld) [Vol rate/Area] 70 mL/min/{1.73_m2} Normal >60 [facility] Comment on above: Result Comment: mL/m in/1.73m2 CKD-EPI Creatinine Equation (2020) Performed By: #### L 100.0100, L500.4050 ####[facility] [address] [place], [address] Globulin (S) [Mass/Vol] 3.0 g/dL Normal 2.2-4.2 [facility] Comment on above: Performed By: #### L 100.0100, L500.4050 ####[facility] [address] [place], [address] Glucose [Mass/Vol] 89 mg/dL Normal 70-99 [facility] Comment on above: Performed By: #### L 100.0100, L500.4050 ####[facility] [address] [place], [address] Potassium [Moles/Vol] 4.1 mmol/L Normal 3.3-5.1 [facility] Comment on above: Performed By: #### L 100.0100, L500.4050 ####[facility] [address] [place], [address] Sodium [Moles/Vol] 140 mmol/L Normal 133-145 [facility] Comment on above: Performed By: #### L 100.0100, L500.4050 ####[facility] [address] [place], [address] T PROT 7.1 g/dL Normal 5.9-8.4 [facility] Comment on above: Performed By: #### L 100.0100, L500.4050 ####[facility] [address] [place], [address] Urea nitrogen [Mass/Vol] 14 mg/dL Normal 4-19 [facility] Comment on above: Performed By: #### L 100.0100, L500.4050 ####[facility] [address] [place], [address] Eosinophil percentageOrdered By: Manisha Navas on 11-22-2024 Eosinophils/100 WBC (Bld) 0.2 % 0-5 [facility] Erythrocyte distribution wid th ratioOrdered By: Manisha Navas on 11-22-2024 Erythrocyte distribution width (RBC) [Ratio] 15.6 % High 11.6-14.6 [facility] Erythrocyte distribution wid th standard deviationOrdered By: Manisha Navas on 11-22-2024 Erythrocyte distribution width (RBC) [Entitic vol] 49.1 fL High 35.1-43.9 [facility] Erythrocyte distribution width (RBC) [Ratio] 49.1 fl High 35.1-43.9 [facility] GFR/1.73 sq M.predicted abilio g non-blacks MDRD (S/P/Bld) [Vol rate/Area]Ordered By: Manisha Navas on 11-22-2024 Estimated GFR (MDRD) Non-Af Amer 70 >60 [facility] Comment on above: mL/min/1.73m2 CKD-EP I Creatinine Equation (2020) Glomerular filtration rate ( GFR) estimation/1.73 sq m using serum, plasma, or whole bOrdered By: Manisha Navas on 11-22-2024 GFR/1.73 sq M.predicted among non-blacks MDRD (S/P/Bld) [Vol rate/Area] 70 mL/min/{1.73_m2} >60 [facility] Comment on above: mL/min/1.73m2 CKD-EP I Creatinine Equation (2020) Hematocrit Auto (Bld) [Volum e fraction]Ordered By: Manisha Navas on 11-22-2024 Hematocrit (Bld) [Volume fraction] 37.2 % 37-47 [facility] Hemoglobin measurementOrdere d By: Manisha Navas on 11-22-2024 Hemoglobin (Bld) [Mass/Vol] 11.9 g/dL Low 12.0-15.0 [facility] Immature granulocytes/100 WB C Auto (Bld)Ordered By: Manisha Navas on 11-22-2024 Immature granulocytes/100 WBC (Bld) 0.200 % 0.0-0.9 [facility] Comment on above: IG% - Immature Granu locytes (promyelocytes, myelocytes and metamyelocytes) > 1% indicates that a LEFT SHIFT is Present. Laboratory - Chemistry and C hemistry - challengeOrdered By: Manisha Navas on 11-22-2024 AST [Catalytic activity/Vol] 21 U/L <32 [facility] Lymphocytes Auto (Unsp spec) [#/Vol]Ordered By: Manisha Navas on 11-22-2024 Lymphocytes (Bld) [#/Vol] 1.64 10*3/uL 0.83-4.51 [facility] Lymphocytes/100 WBC Auto (Un sp spec)Ordered By: Manisha Navas on 11-22-2024 Lymphocytes/100 WBC (Bld) 26.7 % 19-41 [facility] MCV (mean corpuscular volume ) determinationOrdered By: Manisha Navas on 11-22-2024 MCV (RBC) [Entitic vol] 87.1 fL 81-99 [facility] Mean corpuscular hemoglobin (MCH) determinationOrdered By: Manisha Navas on 11-22-2024 MCH (RBC) [Entitic mass] 27.9 pg 27.0-32.0 [facility] Mean corpuscular hemoglobin concentration (MCHC) determinationOrdered By: Manisha Navas on 11-22-2024 MCHC (RBC) [Mass/Vol] 32.0 g/dL 32-36 [facility] Mean platelet volume determi nationOrdered By: Manisha Navas on 11-22-2024 Platelet mean volume (Bld) [Entitic vol] 9.2 fL 6.2-12.0 [facility] Monocyte percentageOrdered B y: Manisha Navas on 11-22-2024 Monocytes/100 WBC (Bld) 9.4 % 0-10 [facility] Neutrophil percentageOrdered By: Manisha Navas on 11-22-2024 Neutrophils/100 WBC (Bld) 62.8 % 47-70 [facility] Nucleated red blood cell per centageOrdered By: Manisha Navas on 11-22-2024 Nucleated RBC/100 WBC (Bld) [Ratio] 0 % 0-5 [facility] Platelet countOrdered By: Tony Navas on 11-22-2024 Platelets (Bld) [#/Vol] 297 10*3/uL 150-450 [facility] Potassium (Unsp spec) [Mass/ Vol]Ordered By: Manisha Navas on 11-22-2024 Potassium [Moles/Vol] 4.1 mmol/L 3.3-5.1 [facility] Potassium measurement (mass/ volume)Ordered By: Manisha Navas on 11-22-2024 Potassium (Unsp spec) [Mass/Vol] 4.1 mmol/L 3.3-5.1 [facility] RBC Auto (Bld) [#/Vol]Ordere d By: Manisha Navas on 11-22-2024 RBC (Bld) [#/Vol] 4.27 10*6/uL 4.2-5.4 [facility] Serum creatinine measurement (mass/volume)Ordered By: Manisha Navas on 11-22-2024 Creatinine [Mass/Vol] 0.88 mg/dL 0.70-1.20 [facility] Serum globulin measurementOr dered By: Manisha Navas on 11-22-2024 Globulin (S) [Mass/Vol] 3.0 g/dL 2.2-4.2 [facility] Serum glucose measurement (m ass/volume)Ordered By: Manisha Navas on 11-22-2024 Glucose [Mass/Vol] 89 mg/dL 70-99 [facility] Serum or plasma alanine graves otransferase (ALT) measurementOrdered By: Manisha Navas on 11-22-2024 ALT [Catalytic activity/Vol] 11 U/L <35 [facility] Serum or plasma albumin bennie urement (mass/volume)Ordered By: Manisha Navas on 11-22-2024 Albumin [Mass/Vol] 4.1 g/dL 3.4-4.8 [facility] Serum or plasma albumin/glob ulin mass ratioOrdered By: Manisha Navas on 11-22-2024 Albumin/Globulin [Mass ratio] 1.4 {ratio} 0.9-2.4 [facility] Serum or plasma alkaline coy sphatase measurementOrdered By: Manisha Navas on 11-22-2024 ALP [Catalytic activity/Vol] 105 U/L High 35-104 [facility] Serum or plasma calcium bennie urement (mass/volume)Ordered By: Manisha Navas on 11-22-2024 Calcium [Mass/Vol] 10.5 mg/dL 7.6-11.0 [facility] Serum or plasma urea nitroge n measurement (mass/volume)Ordered By: Manisha Navas on 11-22-2024 Urea nitrogen [Mass/Vol] 14 mg/dL 4-19 [facility] Sodium levelOrdered By: Pradip Navas on 11-22-2024 Sodium [Moles/Vol] 140 mmol/L 133-145 [facility] Total proteinOrdered By: Judie Navas on 11-22-2024 Protein [Mass/Vol] 7.1 g/dL 5.9-8.4 [facility] White blood cell (WBC) count Ordered By: Manisha Navas on 11-22-2024 WBC (Bld) [#/Vol] 6.2 10*3/uL 4.4-11.0 [facility] HIP, UNI W/ Pelvis 2-3 Views on 2025 HIP, UNI W/ Pelvis 2-3 Views Normal [facility] Orthopedic Visit Reporton Orthopedic Visit Report Normal [facility] HIP, UNI W/ Pelvis 2-3 Views on 09-11-2024 HIP, UNI W/ Pelvis 2-3 Views Normal [facility] Orthopedic Visit Reporton Orthopedic Visit Report Normal [facility] Basic Metabolic Profile (BMP )on 09-10-2024 BUN Normal 7-18 [facility] Comment on above: Result Comment: Canc elled via OM: Order cancelled - Patient discharged Performed By: #### L 500.2500 ####[facility] [address] [facility] [address] BUN/CRE Normal 10-20 [facility] Comment on above: Result Comment: Canc elled via OM: Order cancelled - Patient discharged Performed By: #### L 500.2500 ####[facility] [address] [facility] [address] CA,Total Normal 8.5-10.1 [facility] Comment on above: Result Comment: Canc elled via OM: Order cancelled - Patient discharged Performed By: #### L 500.2500 ####[facility] [address] [place], [address] CL Normal 98-107 [facility] Comment on above: Result Comment: Canc elled via OM: Order cancelled - Patient discharged Performed By: #### L 500.2500 ####[facility] [address] [facility] [address] CO2 Normal 21.0-32.0 [facility] Comment on above: Result Comment: Canc elled via OM: Order cancelled - Patient discharged Performed By: #### L 500.2500 ####[facility] [address] [facility] [address] CREAT,SERUM Normal 0.55-1.02 [facility] Comment on above: Result Comment: Canc elled via OM: Order cancelled - Patient discharged Performed By: #### L 500.2500 ####[facility] [address] [place], [address] EST GFR Normal >60 [facility] Comment on above: Result Comment: Canc elled via OM: Order cancelled - Patient discharged Performed By: #### L 500.2500 ####[facility] [address] [place], [address] EST GFR - AA Normal >60 [facility] Comment on above: Result Comment: Canc elled via OM: Order cancelled - Patient discharged Performed By: #### L 500.2500 ####[facility] [address] [place], [address] GAP Normal 5-15 [facility] Comment on above: Result Comment: Canc elled via OM: Order cancelled - Patient discharged Performed By: #### L 500.2500 ####[facility] [address] [place], [address] GLU Normal 74-106 [facility] Comment on above: Result Comment: Canc elled via OM: Order cancelled - Patient discharged Performed By: #### L 500.2500 ####[facility] [address] [place], [address] Potassium Normal 3.5-5.1 [facility] Comment on above: Result Comment: Canc elled via OM: Order cancelled - Patient discharged Performed By: #### L 500.2500 ####[facility] [address] [place], [address] Basic Metabolic Profile (BMP) Normal 136-145 [facility] Comment on above: Result Comment: Canc elled via OM: Order cancelled - Patient discharged Performed By: #### L 500.2500 ####[facility] [address] [place], [address] Absolute neutrophil countOrd ered By: Manisha Navas on 01-02-2025 Neutrophils (Bld) [#/Vol] 3.5 10*3/uL 2.0-7.7 [facility] Albumin to globulin ratioOrd ered By: Manisha Navas on 09-05-2024 Albumin/Globulin [Mass ratio] 1.2 {ratio} 0.9-2.4 [facility] Basophil percentageOrdered B y: Manisha Navas on 09-05-2024 Basophils/100 WBC (Bld) 0.6 % 0-1 [facility] Bilirubin, totalOrdered By: Manisha Navas on 09-05-2024 Bilirubin [Mass/Vol] 1.20 mg/dL High 0.20-1.00 [facility] Comment on above: For patients on eltr ombopag therapy, use of Dimension [place] TBIL is not recommended. Blood urea nitrogen (BUN)/cr eatinine ratioOrdered By: Manisha Navas on 09-05-2024 Urea nitrogen/Creatinine [Mass ratio] 14.3 mg/mg 10-20 [facility] CBC W/Diff, Automatedon Absolute Lymph 0.91 X10 3/uL Normal 0.83-4.51 [facility] Comment on above: Performed By: #### L 100.0100, L500.4050 ####[facility] [address] [place], [address] Absolute Neut 3.5 X10 3/uL Normal 2.0-7.7 [facility] Comment on above: Performed By: #### L 100.0100, L500.4050 ####[facility] [address] [place], [address] Basophils/100 WBC (Bld) 0.6 % Normal 0-1 [facility] Comment on above: Performed By: #### L 100.0100, L500.4050 ####[facility] [address] [place], [address] Eosinophils/100 WBC (Bld) 0.2 % Normal 0-5 [facility] Comment on above: Performed By: #### L 100.0100, L500.4050 ####[facility] [address] [place], [address] Erythrocyte distribution width (RBC) [Ratio] 14.5 % Normal 11.6-14.6 [facility] Comment on above: Performed By: #### L 100.0100, L500.4050 ####[facility] [address] [place], [address] Hematocrit (Bld) [Volume fraction] 32.5 % Low 37-47 [facility] Comment on above: Performed By: #### L 100.0100, L500.4050 ####[facility] [address] [place], [address] Hemoglobin (Bld) [Mass/Vol] 10.1 g/dL Low 12.0-15.0 [facility] Comment on above: Performed By: #### L 100.0100, L500.4050 ####[facility] [address] [place], [address] IG% 0.400 Normal 0.0-0.9 [facility] Comment on above: Result Comment: IG% - Immature Granulocytes (promyelocytes, myelocytes andmetamyelocytes) > 1% indicates that a LEFT SHIFT is Present. Performed By: #### L 100.0100, L500.4050 ####[facility] [address] [place], [address] Lymphocytes/100 WBC (Bld) 18.1 % Low 19-41 [facility] Comment on above: Performed By: #### L 100.0100, L500.4050 ####[facility] [address] [place], [address] MCH (RBC) [Entitic mass] 28.4 pg Normal 27.0-32.0 [facility] Comment on above: Performed By: #### L 100.0100, L500.4050 ####[facility] [address] [place], [address] MCHC (RBC) [Mass/Vol] 31.1 g/dL Low 32-36 [facility] Comment on above: Performed By: #### L 100.0100, L500.4050 ####[facility] [address] [place], [address] MCV (RBC) [Entitic vol] 91.3 fL Normal 81-99 [facility] Comment on above: Performed By: #### L 100.0100, L500.4050 ####[facility] [address] [place], [address] Monocytes/100 WBC (Bld) 10.6 % High 0-10 [facility] Comment on above: Performed By: #### L 100.0100, L500.4050 ####[facility] [address] [place], [address] Neutrophils/100 WBC (Bld) 70.1 % High 47-70 [facility] Comment on above: Performed By: #### L 100.0100, L500.4050 ####[facility] [address] [place], [address] Nucleated RBC (Bld) [#/Vol] 0 10*3/uL Normal 0-5 [facility] Comment on above: Performed By: #### L 100.0100, L500.4050 ####[facility] [address] [place], [address] Platelet mean volume (Bld) [Entitic vol] 9.2 fL Normal 6.2-12.0 [facility] Comment on above: Performed By: #### L 100.0100, L500.4050 ####[facility] [address] [place], [address] Platelets (Bld) [#/Vol] 302 10*3/uL Normal 150-450 [facility] Comment on above: Performed By: #### L 100.0100, L500.4050 ####[facility] [address] [place], [address] RBC (Bld) [#/Vol] 3.56 10*6/uL Low 4.2-5.4 [facility] Comment on above: Performed By: #### L 100.0100, L500.4050 ####[facility] [address] [place], [address] RDW SD 48.5 fl High 35.1-43.9 [facility] Comment on above: Performed By: #### L 100.0100, L500.4050 ####[facility] [address] [place], [address] WBC (Bld) [#/Vol] 5.0 10*3/uL Normal 4.4-11.0 [facility] Comment on above: Performed By: #### L 100.0100, L500.4050 ####[facility] [address] [place], [address] Carbon dioxide measurementOr dered By: Manisha Navas on 09-05-2024 CO2 [Moles/Vol] 29.0 mmol/L 21.0-32.0 [facility] Chloride measurementOrdered By: Manisha Navas on 09-05-2024 Chloride [Moles/Vol] 105 mmol/L 98-107 [facility] Comprehensive Metabolic Prof ilon 09-05-2024 Albumin [Mass/Vol] 3.8 g/dL Normal 3.2-5.0 [facility] Comment on above: Order Comment: DR.VE ALVARES ORDERED CBCD,KARLEE ORDERED CBCD Performed By: #### L 100.0100, L500.4050 ####[facility] [address] [place], [address] Albumin/Globulin [Mass ratio] 1.2 {ratio} Normal 0.9-2.4 [facility] Comment on above: Order Comment: DR.VE ALVARES ORDERED CBCD,KARLEE ORDERED CBCD Performed By: #### L 100.0100, L500.4050 ####[facility] [address] [place], [address] ALK P 90 U/L Normal 45-117 [facility] Comment on above: Order Comment: DR.VE ALVARES ORDERED CBCD,KARLEE ORDERED CBCD Performed By: #### L 100.0100, L500.4050 ####[facility] [address] [place], [address] ALT [Catalytic activity/Vol] 18 U/L Normal 13-56 [facility] Comment on above: Order Comment: DR.VE ALVARES ORDERED CBCD,KARLEE ORDERED CBCD Performed By: #### L 100.0100, L500.4050 ####[facility] [address] [place], [address] AST [Catalytic activity/Vol] 18 U/L Normal 15-37 [facility] Comment on above: Order Comment: DR.VE ALVARES ORDERED CBCD,KARLEE ORDERED CBCD Performed By: #### L 100.0100, L500.4050 ####[facility] [address] [place], [address] Bilirubin [Mass/Vol] 1.20 mg/dL High 0.20-1.00 [facility] Comment on above: Order Comment: DR.VE ALVARES ORDERED CBCD,KARLEE ORDERED CBCD Result Comment: For patients on eltrombopag therapy, use of Dimension [place] TBIL is not recommended. Performed By: #### L 100.0100, L500.4050 ####[facility] [address] [place], [address] BUN/CRE 14.3 RATIO Normal 10-20 [facility] Comment on above: Order Comment: DR.VE ALVARES ORDERED CBCD,CMP ORDERED CBCD Performed By: #### L 100.0100, L500.4050 ####[facility] [address] [place], [address] CA,Total 9.0 mg/dL Normal 8.5-10.1 [facility] Comment on above: Order Comment: DR.VE ALVARES ORDERED CBCD,CMP ORDERED CBCD Performed By: #### L 100.0100, L500.4050 ####[facility] [address] [place], [address] Chloride [Moles/Vol] 105 mmol/L Normal 98-107 [facility] Comment on above: Order Comment: DR.VE ALVARES ORDERED CBCD,KARLEE ORDERED CBCD Performed By: #### L 100.0100, L500.4050 ####[facility] [address] [place], [address] CO2 [Moles/Vol] 29.0 mmol/L Normal 21.0-32.0 [facility] Comment on above: Order Comment: DR.VE ALVARES ORDERED CBCD,KARLEE ORDERED CBCD Performed By: #### L 100.0100, L500.4050 ####[facility] [address] [place], [address] Creatinine [Mass/Vol] 0.70 mg/dL Normal 0.55-1.02 [facility] Comment on above: Order Comment: DR.VE ALVARES ORDERED CBCD,JERED.BENITA ORDERED CBCD Result Comment: The validity of the calculated GFR GFRAA in patients over70 years has not been determined. Clinical correlation isessential. Performed By: #### L 100.0100, L500.4050 ####[facility] [address] [place], [address] EST GFR - AA 106 mL/min Normal >60 [facility] Comment on above: Order Comment: DR.VE ALVARES ORDERED CBCD,KARLEE ORDERED CBCD Result Comment: Afri can Burmese GFR Calc Performed By: #### L 100.0100, L500.4050 ####[facility] [address] [place], [address] GAP 8 Normal 5-15 [facility] Comment on above: Order Comment: DR.VE ALVARES ORDERED CBCD,KARLEE ORDERED CBCD Performed By: #### L 100.0100, L500.4050 ####[facility] [address] [place], [address] GFR/1.73 sq M.predicted among non-blacks MDRD (S/P/Bld) [Vol rate/Area] 88 mL/min/{1.73_m2} Normal >60 [facility] Comment on above: Order Comment: DR.VE ALVARES ORDERED CBCD,KARLEE ORDERED CBCD Result Comment: Non- GFR Calc Performed By: #### L 100.0100, L500.4050 ####[facility] [address] [place], [address] Globulin (S) [Mass/Vol] 3.3 g/dL Normal 2.2-4.2 [facility] Comment on above: Order Comment: DR.VE ALVARES ORDERED CBCD,KARLEE ORDERED CBCD Performed By: #### L 100.0100, L500.4050 ####[facility] [address] [place], [address] Glucose [Mass/Vol] 105 mg/dL Normal 74-106 [facility] Comment on above: Order Comment: DR.VE ALVARES ORDERED CBCD,CMP ORDERED CBCD Result Comment: Fast ing Glucose result from 100 to 125 mg/dLsuggests IMPAIRED HOMEOSTASIS per A.D.A. criteria. Performed By: #### L 100.0100, L500.4050 ####[facility] [address] [place], [address] Potassium [Moles/Vol] 3.3 mmol/L Low 3.5-5.1 [facility] Comment on above: Order Comment: DR.VE ALVARES ORDERED CBCD,CMPDR.BENITA ORDERED CBCD Performed By: #### L 100.0100, L500.4050 ####[facility] [address] [place], [address] Sodium [Moles/Vol] 141 mmol/L Normal 136-145 [facility] Comment on above: Order Comment: DR.VE ALVARES ORDERED CBCD,CMPDRSERGE ORDERED CBCD Performed By: #### L 100.0100, L500.4050 ####[facility] [address] [place], [address] T PROT 7.1 g/dL Normal 6.4-8.2 [facility] Comment on above: Order Comment: DR.VE ALVARES ORDERED CBCD,CMPDR.BENITA ORDERED CBCD Performed By: #### L 100.0100, L500.4050 ####[facility] [address] [place], [address] Urea nitrogen [Mass/Vol] 10 mg/dL Normal 7-18 [facility] Comment on above: Order Comment: DR.VE ALVARES ORDERED CBCD,CMPDR.BENITA ORDERED CBCD Performed By: #### L 100.0100, L500.4050 ####[facility] [address] [place], [address] Eosinophil percentageOrdered By: Manisha Navas on 09-05-2024 Eosinophils/100 WBC (Bld) 0.2 % 0-5 [facility] Erythrocyte distribution wid th ratioOrdered By: Manisha Navas on 09-05-2024 Erythrocyte distribution width (RBC) [Ratio] 14.5 % 11.6-14.6 [facility] Erythrocyte distribution wid th standard deviationOrdered By: Manisha Navas on 09-05-2024 Erythrocyte distribution width (RBC) [Entitic vol] 48.5 fL High 35.1-43.9 [facility] Estimated glomerular filtrat ion rate (GFR) AmericanOrdered By: Manisha Navas on 09-05-2024 Estimated GFR (MDRD) Amer 106 mL/min >60 [facility] Comment on above: GFR Calc Glomerular filtration rate ( GFR) estimationOrdered By: Manisha Navas on 09-05-2024 Estimated GFR (MDRD) Non-Af Amer 88 mL/min >60 [facility] Comment on above: Non- GFR Calc Glucose measurementOrdered B y: Manisha Navas on 09-05-2024 Glucose [Mass/Vol] 105 mg/dL 74-106 [facility] Comment on above: Fasting Glucose resu lt from 100 to 125 mg/dL suggests IMPAIRED HOMEOSTASIS per A.D.A. criteria. Hematocrit Auto (Bld) [Volum e fraction]Ordered By: Manisha aNvas on 09-05-2024 Hematocrit (Bld) [Volume fraction] 32.5 % Low 37-47 [facility] Hemoglobin measurementOrdere d By: Manisha Navas on 09-05-2024 Hemoglobin (Bld) [Mass/Vol] 10.1 g/dL Low 12.0-15.0 [facility] Immature granulocytes/100 WB C Auto (Bld)Ordered By: Manisha Navas on 09-05-2024 Immature granulocytes/100 WBC (Bld) 0.400 % 0.0-0.9 [facility] Comment on above: IG% - Immature Granu locytes (promyelocytes, myelocytes and metamyelocytes) > 1% indicates that a LEFT SHIFT is Present. Laboratory - Chemistry and C hemistry - challengeOrdered By: Manisha Navas on 09-05-2024 AST [Catalytic activity/Vol] 18 U/L 15-37 [facility] Lymphocytes Auto (Unsp spec) [#/Vol]Ordered By: Manisha Navas on 09-05-2024 Lymphocytes (Bld) [#/Vol] 0.91 10*3/uL 0.83-4.51 [facility] Lymphocytes/100 WBC Auto (Un sp spec)Ordered By: Manisha Navas on 09-05-2024 Lymphocytes/100 WBC (Bld) 18.1 % Low 19-41 [facility] MCV (mean corpuscular volume ) determinationOrdered By: Manisha Navas on 09-05-2024 MCV (RBC) [Entitic vol] 91.3 fL 81-99 [facility] Mean corpuscular hemoglobin (MCH) determinationOrdered By: Manisha Navas on 09-05-2024 MCH (RBC) [Entitic mass] 28.4 pg 27.0-32.0 [facility] Mean corpuscular hemoglobin concentration (MCHC) determinationOrdered By: Manisha Navas on 09-05-2024 MCHC (RBC) [Mass/Vol] 31.1 g/dL Low 32-36 [facility] Mean platelet volume determi nationOrdered By: Manisha Navas on 09-05-2024 Platelet mean volume (Bld) [Entitic vol] 9.2 fL 6.2-12.0 [facility] Monocyte percentageOrdered B y: Manisha Navas on 09-05-2024 Monocytes/100 WBC (Bld) 10.6 % High 0-10 [facility] Neutrophil percentageOrdered By: Manisha Navas on 09-05-2024 Neutrophils/100 WBC (Bld) 70.1 % High 47-70 [facility] Nucleated red blood cell per centageOrdered By: Manisha Navas on 09-05-2024 Nucleated RBC/100 WBC (Bld) [Ratio] 0 % 0-5 [facility] Platelet countOrdered By: Tony Navas on 09-05-2024 Platelets (Bld) [#/Vol] 302 10*3/uL 150-450 [facility] Potassium measurementOrdered By: Manisha Navas on 09-05-2024 Potassium [Moles/Vol] 3.3 mmol/L Low 3.5-5.1 [facility] RBC Auto (Bld) [#/Vol]Ordere d By: Manisha Navas on 09-05-2024 RBC (Bld) [#/Vol] 3.56 10*6/uL Low 4.2-5.4 [facility] Serum anion gap measurementO rdered By: Manisha Navas on 09-05-2024 Anion gap [Moles/Vol] 8 mmol/L 5-15 [facility] Serum globulin measurementOr dered By: Manisha Navas on 09-05-2024 Globulin (S) [Mass/Vol] 3.3 g/dL 2.2-4.2 [facility] Serum or plasma alanine graves otransferase (ALT) measurementOrdered By: Manisha Navas on 09-05-2024 ALT [Catalytic activity/Vol] 18 U/L 13-56 [facility] Serum or plasma albumin bennie urement (mass/volume)Ordered By: Manisha Navas on 09-05-2024 Albumin [Mass/Vol] 3.8 g/dL 3.2-5.0 [facility] Serum or plasma alkaline coy sphatase measurementOrdered By: Manisha Navas on 09-05-2024 ALP [Catalytic activity/Vol] 90 U/L 45-117 [facility] Serum or plasma calcium bennie urement (mass/volume)Ordered By: Manisha Navas on 09-05-2024 Calcium [Mass/Vol] 9.0 mg/dL 8.5-10.1 [facility] Serum or plasma creatinine m easurement (mass/volume)Ordered By: Manisha Navas on 09-05-2024 Creatinine [Mass/Vol] 0.70 mg/dL 0.55-1.02 [facility] Comment on above: The validity of the calculated GFR & GFRAA in patients over 70 years has not been determined. Clinical correlation is essential. Serum or plasma urea nitroge n measurement (mass/volume)Ordered By: Manisha Navas on 09-05-2024 Urea nitrogen [Mass/Vol] 10 mg/dL 7-18 [facility] Sodium levelOrdered By: Pradip Navas on 09-05-2024 Sodium [Moles/Vol] 141 mmol/L 136-145 [facility] Total proteinOrdered By: Judie Navas on 09-05-2024 Protein [Mass/Vol] 7.1 g/dL 6.4-8.2 [facility] White blood cell (WBC) count Ordered By: Manisha Navas on 09-05-2024 WBC (Bld) [#/Vol] 5.0 10*3/uL 4.4-11.0 [facility] Basic Metabolic Profile (BMP )on 09-03-2024 BUN Normal 7-18 [facility] Comment on above: Result Comment: Canc elled via OM: Order cancelled - Patient discharged Performed By: #### L 100.0100, L500.2500 ####[facility] [address] [place], [address] BUN/CRE Normal 10-20 [facility] Comment on above: Result Comment: Canc elled via OM: Order cancelled - Patient discharged Performed By: #### L 100.0100, L500.2500 ####[facility] [address] [place], [address] CA,Total Normal 8.5-10.1 [facility] Comment on above: Result Comment: Canc elled via OM: Order cancelled - Patient discharged Performed By: #### L 100.0100, L500.2500 ####[facility] [address] [place], [address] CL Normal 98-107 [facility] Comment on above: Result Comment: Canc elled via OM: Order cancelled - Patient discharged Performed By: #### L 100.0100, L500.2500 ####[facility] [address] [place], [address] CO2 Normal 21.0-32.0 [facility] Comment on above: Result Comment: Canc elled via OM: Order cancelled - Patient discharged Performed By: #### L 100.0100, L500.2500 ####[facility] [address] [place], [address] CREAT,SERUM Normal 0.55-1.02 [facility] Comment on above: Result Comment: Canc elled via OM: Order cancelled - Patient discharged Performed By: #### L 100.0100, L500.2500 ####[facility] [place] [facility] [address] [place], [address] EST GFR Normal >60 [facility] Comment on above: Result Comment: Canc elled via OM: Order cancelled - Patient discharged Performed By: #### L 100.0100, L500.2500 ####[facility] [address] [place], [address] EST GFR - AA Normal >60 [facility] Comment on above: Result Comment: Canc elled via OM: Order cancelled - Patient discharged Performed By: #### L 100.0100, L500.2500 ####[facility] [address] [place], [address] GAP Normal 5-15 [facility] Comment on above: Result Comment: Canc elled via OM: Order cancelled - Patient discharged Performed By: #### L 100.0100, L500.2500 ####[facility] [address] [place], [address] GLU Normal 74-106 [facility] Comment on above: Result Comment: Canc elled via OM: Order cancelled - Patient discharged Performed By: #### L 100.0100, L500.2500 ####[facility] [address] [place], [address] Potassium Normal 3.5-5.1 [facility] Comment on above: Result Comment: Canc elled via OM: Order cancelled - Patient discharged Performed By: #### L 100.0100, L500.2500 ####[facility] [address] [place], [address] Basic Metabolic Profile (BMP) Normal 136-145 [facility] Comment on above: Result Comment: Canc elled via OM: Order cancelled - Patient discharged Performed By: #### L 100.0100, L500.2500 ####[facility] [address] [place], [address] CBC W/Diff, Automatedon 12-3 Absolute Neut Normal 2.0-7.7 [facility] Comment on above: Result Comment: Canc elled via OM: Order cancelled - Patient discharged Performed By: #### L 100.0100, L500.2500 ####[facility] [address] [place], [address] HCT Normal 37-47 [facility] Comment on above: Result Comment: Canc elled via OM: Order cancelled - Patient discharged Performed By: #### L 100.0100, L500.2500 ####[facility] [address] [place], [address] HGB Normal 12.0-15.0 [facility] Comment on above: Result Comment: Canc elled via OM: Order cancelled - Patient discharged Performed By: #### L 100.0100, L500.2500 ####[facility] [address] [place], [address] MCH Normal 27.0-32.0 [facility] Comment on above: Result Comment: Canc elled via OM: Order cancelled - Patient discharged Performed By: #### L 100.0100, L500.2500 ####[facility] [address] [place], [address] MCHC Normal 32-36 [facility] Comment on above: Result Comment: Canc elled via OM: Order cancelled - Patient discharged Performed By: #### L 100.0100, L500.2500 ####[facility] [address] [place], [address] MCV Normal 81-99 [facility] Comment on above: Result Comment: Canc elled via OM: Order cancelled - Patient discharged Performed By: #### L 100.0100, L500.2500 ####[facility] [address] [place], [address] NEUT% Normal 47-70 [facility] Comment on above: Result Comment: Canc elled via OM: Order cancelled - Patient discharged Performed By: #### L 100.0100, L500.2500 ####[facility] [address] [place], [address] PLT Normal 150-450 [facility] Comment on above: Result Comment: Canc elled via OM: Order cancelled - Patient discharged Performed By: #### L 100.0100, L500.2500 ####[facility] [address] [place], [address] RBC Normal 4.2-5.4 [facility] Comment on above: Result Comment: Canc elled via OM: Order cancelled - Patient discharged Performed By: #### L 100.0100, L500.2500 ####[facility] [address] [place], [address] RDW CV Normal 11.6-14.6 [facility] Comment on above: Result Comment: Canc elled via OM: Order cancelled - Patient discharged Performed By: #### L 100.0100, L500.2500 ####[facility] [address] [place], [address] RDW SD Normal 35.1-43.9 [facility] Comment on above: Result Comment: Canc elled via OM: Order cancelled - Patient discharged Performed By: #### L 100.0100, L500.2500 ####[facility] [address] [place], [address] WBC Normal 4.4-11.0 [facility] Comment on above: Result Comment: Canc elled via OM: Order cancelled - Patient discharged Performed By: #### L 100.0100, L500.2500 ####[facility] [address] [place], [address] Basic Metabolic Profile (BMP )on 08-27-2024 BUN Normal 7-18 [facility] Comment on above: Result Comment: Canc elled via OM: Order cancelled - Patient discharged Performed By: #### L 100.0100, L500.2500 ####[facility] [address] [place], [address] BUN/CRE Normal 10-20 [facility] Comment on above: Result Comment: Canc elled via OM: Order cancelled - Patient discharged Performed By: #### L 100.0100, L500.2500 ####[facility] [address] [place], [address] CA,Total Normal 8.5-10.1 [facility] Comment on above: Result Comment: Canc elled via OM: Order cancelled - Patient discharged Performed By: #### L 100.0100, L500.2500 ####[facility] [address] [place], [address] CL Normal 98-107 [facility] Comment on above: Result Comment: Canc elled via OM: Order cancelled - Patient discharged Performed By: #### L 100.0100, L500.2500 ####[facility] [address] [place], [address] CO2 Normal 21.0-32.0 [facility] Comment on above: Result Comment: Canc elled via OM: Order cancelled - Patient discharged Performed By: #### L 100.0100, L500.2500 ####[facility] [address] [place], [address] CREAT,SERUM Normal 0.55-1.02 [facility] Comment on above: Result Comment: Canc elled via OM: Order cancelled - Patient discharged Performed By: #### L 100.0100, L500.2500 ####[facility] [address] [place], [address] EST GFR Normal >60 [facility] Comment on above: Result Comment: Canc elled via OM: Order cancelled - Patient discharged Performed By: #### L 100.0100, L500.2500 ####[facility] [address] [place], [address] EST GFR - AA Normal >60 [facility] Comment on above: Result Comment: Canc elled via OM: Order cancelled - Patient discharged Performed By: #### L 100.0100, L500.2500 ####[facility] [address] [place], [address] GAP Normal 5-15 [facility] Comment on above: Result Comment: Canc elled via OM: Order cancelled - Patient discharged Performed By: #### L 100.0100, L500.2500 ####[facility] [address] [place], [address] GLU Normal 74-106 [facility] Comment on above: Result Comment: Canc elled via OM: Order cancelled - Patient discharged Performed By: #### L 100.0100, L500.2500 ####[facility] [address] [place], [address] Potassium Normal 3.5-5.1 [facility] Comment on above: Result Comment: Canc elled via OM: Order cancelled - Patient discharged Performed By: #### L 100.0100, L500.2500 ####[facility] [address] [place], [address] Basic Metabolic Profile (BMP) Normal 136-145 [facility] Comment on above: Result Comment: Canc elled via OM: Order cancelled - Patient discharged Performed By: #### L 100.0100, L500.2500 ####[facility] [address] [place], [address] CBC W/Diff, Automatedon 12-2 Absolute Neut Normal 2.0-7.7 [facility] Comment on above: Result Comment: Canc elled via OM: Order cancelled - Patient discharged Performed By: #### L 100.0100, L500.2500 ####[facility] [address] [place], [address] HCT Normal 37-47 [facility] Comment on above: Result Comment: Canc elled via OM: Order cancelled - Patient discharged Performed By: #### L 100.0100, L500.2500 ####[facility] [address] [place], [address] HGB Normal 12.0-15.0 [facility] Comment on above: Result Comment: Canc elled via OM: Order cancelled - Patient discharged Performed By: #### L 100.0100, L500.2500 ####[facility] [address] [place], [address] MCH Normal 27.0-32.0 [facility] Comment on above: Result Comment: Canc elled via OM: Order cancelled - Patient discharged Performed By: #### L 100.0100, L500.2500 ####[facility] [address] [place], [address] MCHC Normal 32-36 [facility] Comment on above: Result Comment: Canc elled via OM: Order cancelled - Patient discharged Performed By: #### L 100.0100, L500.2500 ####[facility] [address] [place], [address] MCV Normal 81-99 [facility] Comment on above: Result Comment: Canc elled via OM: Order cancelled - Patient discharged Performed By: #### L 100.0100, L500.2500 ####[facility] [address] [place], [address] NEUT% Normal 47-70 [facility] Comment on above: Result Comment: Canc elled via OM: Order cancelled - Patient discharged Performed By: #### L 100.0100, L500.2500 ####[facility] [address] [place], [address] PLT Normal 150-450 [facility] Comment on above: Result Comment: Canc elled via OM: Order cancelled - Patient discharged Performed By: #### L 100.0100, L500.2500 ####[facility] [address] [place], [address] RBC Normal 4.2-5.4 [facility] Comment on above: Result Comment: Canc elled via OM: Order cancelled - Patient discharged Performed By: #### L 100.0100, L500.2500 ####[facility] [address] [place], [address] RDW CV Normal 11.6-14.6 [facility] Comment on above: Result Comment: Canc elled via OM: Order cancelled - Patient discharged Performed By: #### L 100.0100, L500.2500 ####[facility] [address] [place], [address] RDW SD Normal 35.1-43.9 [facility] Comment on above: Result Comment: Canc elled via OM: Order cancelled - Patient discharged Performed By: #### L 100.0100, L500.2500 ####[facility] [address] [place], [address] WBC Normal 4.4-11.0 [facility] Comment on above: Result Comment: Canc elled via OM: Order cancelled - Patient discharged Performed By: #### L 100.0100, L500.2500 ####[facility] [address] [place], [address] Absolute neutrophil countOrd ered By: Young Ng on 08-20-2024 Neutrophils (Bld) [#/Vol] 2.2 10*3/uL 2.0-7.7 [facility] Basic Metabolic Profile (BMP )on 08-20-2024 BUN/CRE 18.7 RATIO Normal 10-20 [facility] Comment on above: Performed By: #### L 500.2500, L100.0100 ####[facility] [address] [place], [address] CA,Total 8.4 mg/dL Low 8.5-10.1 [facility] Comment on above: Performed By: #### L 500.2500, L100.0100 ####[facility] [address] [place], [address] Chloride [Moles/Vol] 108 mmol/L High 98-107 [facility] Comment on above: Performed By: #### L 500.2500, L100.0100 ####[facility] [address] [place], [address] CO2 [Moles/Vol] 28.0 mmol/L Normal 21.0-32.0 [facility] Comment on above: Performed By: #### L 500.2500, L100.0100 ####[facility] [address] [place], [address] Creatinine [Mass/Vol] 0.64 mg/dL Normal 0.55-1.02 [facility] Comment on above: Result Comment: The validity of the calculated GFR GFRAA in patients over70 years has not been determined. Clinical correlation isessential. Performed By: #### L 500.2500, L100.0100 ####[facility] [address] [place], [address] ECRCL 59.15 ml/min Normal [facility] Comment on above: Performed By: #### L 500.2500, L100.0100 ####[facility] [address] [place], [address] EST GFR - AA 117 mL/min Normal >60 [facility] Comment on above: Result Comment: Afri can Burmese GFR Calc Performed By: #### L 500.2500, L100.0100 ####[facility] [address] [place], [address] GAP 5 Normal 5-15 [facility] Comment on above: Performed By: #### L 500.2500, L100.0100 ####[facility] [address] [place], [address] GFR/1.73 sq M.predicted among non-blacks MDRD (S/P/Bld) [Vol rate/Area] 97 mL/min/{1.73_m2} Normal >60 [facility] Comment on above: Result Comment: Non- GFR Calc Performed By: #### L 500.2500, L100.0100 ####[facility] [address] [place], [address] Glucose [Mass/Vol] 106 mg/dL Normal 74-106 [facility] Comment on above: Result Comment: Fast ing Glucose result from 100 to 125 mg/dLsuggests IMPAIRED HOMEOSTASIS per A.D.A. criteria. Performed By: #### L 500.2500, L100.0100 ####[facility] [address] [place], [address] Potassium [Moles/Vol] 3.5 mmol/L Normal 3.5-5.1 [facility] Comment on above: Performed By: #### L 500.2500, L100.0100 ####[facility] [address] [place], [address] Sodium [Moles/Vol] 141 mmol/L Normal 136-145 [facility] Comment on above: Performed By: #### L 500.2500, L100.0100 ####[facility] [address] [place], [address] Urea nitrogen [Mass/Vol] 12 mg/dL Normal 7-18 [facility] Comment on above: Performed By: #### L 500.2500, L100.0100 ####[facility] [address] [place], [address] Basophil percentageOrdered B y: Young Ng on 08-20-2024 Basophils/100 WBC (Bld) 0.8 % 0-1 [facility] Blood urea nitrogen (BUN)/cr eatinine ratioOrdered By: Young Ng on 08-20-2024 Urea nitrogen/Creatinine [Mass ratio] 18.7 mg/mg 10-20 [facility] CBC W/Diff, Automatedon 08-04 Absolute Lymph 1.10 X10 3/uL Normal 0.83-4.51 [facility] Comment on above: Performed By: #### L 500.2500, L100.0100 ####[facility] [address] [place], [address] Absolute Neut 2.2 X10 3/uL Normal 2.0-7.7 [facility] Comment on above: Performed By: #### L 500.2500, L100.0100 ####[facility] [address] [place], [address] Basophils/100 WBC (Bld) 0.8 % Normal 0-1 [facility] Comment on above: Performed By: #### L 500.2500, L100.0100 ####[facility] [address] [place], [address] Eosinophils/100 WBC (Bld) 0.3 % Normal 0-5 [facility] Comment on above: Performed By: #### L 500.2500, L100.0100 ####[facility] [address] [place], [address] Erythrocyte distribution width (RBC) [Ratio] 14.9 % High 11.6-14.6 [facility] Comment on above: Performed By: #### L 500.2500, L100.0100 ####[facility] [address] [place], [address] Hematocrit (Bld) [Volume fraction] 27.1 % Low 37-47 [facility] Comment on above: Performed By: #### L 500.2500, L100.0100 ####[facility] [address] [place], [address] Hemoglobin (Bld) [Mass/Vol] 8.2 g/dL Low 12.0-15.0 [facility] Comment on above: Performed By: #### L 500.2500, L100.0100 ####[facility] [address] [place], [address] IG% 0.300 Normal 0.0-0.9 [facility] Comment on above: Result Comment: IG% - Immature Granulocytes (promyelocytes, myelocytes andmetamyelocytes) > 1% indicates that a LEFT SHIFT is Present. Performed By: #### L 500.2500, L100.0100 ####[facility] [address] [place], [address] Lymphocytes/100 WBC (Bld) 27.8 % Normal 19-41 [facility] Comment on above: Performed By: #### L 500.2500, L100.0100 ####[facility] [address] [place], [address] MCH (RBC) [Entitic mass] 29.0 pg Normal 27.0-32.0 [facility] Comment on above: Performed By: #### L 500.2500, L100.0100 ####[facility] [address] [place], [address] MCHC (RBC) [Mass/Vol] 30.3 g/dL Low 32-36 [facility] Comment on above: Performed By: #### L 500.2500, L100.0100 ####[facility] [address] [place], [address] MCV (RBC) [Entitic vol] 95.8 fL Normal 81-99 [facility] Comment on above: Performed By: #### L 500.2500, L100.0100 ####[facility] [address] [place], [address] Monocytes/100 WBC (Bld) 14.9 % High 0-10 [facility] Comment on above: Performed By: #### L 500.2500, L100.0100 ####[facility] [address] [place], [address] Neutrophils/100 WBC (Bld) 55.9 % Normal 47-70 [facility] Comment on above: Performed By: #### L 500.2500, L100.0100 ####[facility] [address] [place], [address] Nucleated RBC (Bld) [#/Vol] 0 10*3/uL Normal 0-5 [facility] Comment on above: Performed By: #### L 500.2500, L100.0100 ####[facility] [address] [place], [address] Platelet mean volume (Bld) [Entitic vol] 8.9 fL Normal 6.2-12.0 [facility] Comment on above: Performed By: #### L 500.2500, L100.0100 ####[facility] [address] [place], [address] Platelets (Bld) [#/Vol] 296 10*3/uL Normal 150-450 [facility] Comment on above: Performed By: #### L 500.2500, L100.0100 ####[facility] [address] [place], [address] RBC (Bld) [#/Vol] 2.83 10*6/uL Low 4.2-5.4 [facility] Comment on above: Performed By: #### L 500.2500, L100.0100 ####[facility] [address] [place], [address] RDW SD 52.6 fl High 35.1-43.9 [facility] Comment on above: Performed By: #### L 500.2500, L100.0100 ####[facility] [address] [place], [address] WBC (Bld) [#/Vol] 4.0 10*3/uL Low 4.4-11.0 [facility] Comment on above: Performed By: #### L 500.2500, L100.0100 ####[facility] [address] [place], [address] Carbon dioxide measurementOr dered By: Young Ng on 08-20-2024 CO2 [Moles/Vol] 28.0 mmol/L 21.0-32.0 [facility] Chloride measurementOrdered By: Young Ng 08-20-2024 Chloride [Moles/Vol] 108 mmol/L High 98-107 [facility] Eosinophil percentageOrdered By: Young Ng 08-20-2024 Eosinophils/100 WBC (Bld) 0.3 % 0-5 [facility] Erythrocyte distribution wid th ratioOrdered By: [facility] 08-20-2024 Erythrocyte distribution width (RBC) [Ratio] 14.9 % High 11.6-14.6 [facility] Erythrocyte distribution wid th standard deviationOrdered By: Young Ng on 08-20-2024 Erythrocyte distribution width (RBC) [Entitic vol] 52.6 fL High 35.1-43.9 [facility] Estimated glomerular filtrat ion rate (GFR) AmericanOrdered By: Young Ng on 08-20-2024 Estimated GFR (MDRD) Amer 117 mL/min >60 [facility] Comment on above: GFR Calc Estimation of creatinine deangelo aranceOrdered By: Young Ng on 08-20-2024 Estimated Creatinine Clearance Calc 59.15 ml/min [facility] Glomerular filtration rate ( GFR) estimationOrdered By: Young Ng 08-20-2024 Estimated GFR (MDRD) Non-Af Amer 97 mL/min >60 [facility] Comment on above: Non- GFR Calc Glucose measurementOrdered B y: Young Ng on 08-20-2024 Glucose [Mass/Vol] 106 mg/dL 74-106 [facility] Comment on above: Fasting Glucose resu lt from 100 to 125 mg/dL suggests IMPAIRED HOMEOSTASIS per A.D.A. criteria. HIP, UNI W/ Pelvis 2-3 Views on 08-20-2024 HIP, UNI W/ Pelvis 2-3 Views Normal [facility] Hematocrit Auto (Bld) [Volum e fraction]Ordered By: Young Ng on 08-20-2024 Hematocrit (Bld) [Volume fraction] 27.1 % Low 37-47 [facility] Hemoglobin measurementOrdere d By: Young Ng on 08-20-2024 Hemoglobin (Bld) [Mass/Vol] 8.2 g/dL Low 12.0-15.0 [facility] Immature granulocytes/100 WB C Auto (Bld)Ordered By: Young Ng on 08-20-2024 Immature granulocytes/100 WBC (Bld) 0.300 % 0.0-0.9 [facility] Comment on above: IG% - Immature Granu locytes (promyelocytes, myelocytes and metamyelocytes) > 1% indicates that a LEFT SHIFT is Present. Lymphocytes Auto (Unsp spec) [#/Vol]Ordered By: Young Ng on 08-20-2024 Lymphocytes (Bld) [#/Vol] 1.10 10*3/uL 0.83-4.51 [facility] Lymphocytes/100 WBC Auto (Un sp spec)Ordered By: Young Ng on 08-20-2024 Lymphocytes/100 WBC (Bld) 27.8 % 19-41 [facility] MCV (mean corpuscular volume ) determinationOrdered By: Young Ng on 08-20-2024 MCV (RBC) [Entitic vol] 95.8 fL 81-99 [facility] Mean corpuscular hemoglobin (MCH) determinationOrdered By: Young Ng on 08-20-2024 MCH (RBC) [Entitic mass] 29.0 pg 27.0-32.0 [facility] Mean corpuscular hemoglobin concentration (MCHC) determinationOrdered By: Young Ng on 08-20-2024 MCHC (RBC) [Mass/Vol] 30.3 g/dL Low 32-36 [facility] Mean platelet volume determi nationOrdered By: Young Ng on 08-20-2024 Platelet mean volume (Bld) [Entitic vol] 8.9 fL 6.2-12.0 [facility] Monocyte percentageOrdered B y: Young Leslieok on 08-20-2024 Monocytes/100 WBC (Bld) 14.9 % High 0-10 [facility] Neutrophil percentageOrdered By: Young Leslieok on 08-20-2024 Neutrophils/100 WBC (Bld) 55.9 % 47-70 [facility] Nucleated red blood cell per centageOrdered By: Young Leslieok on 08-20-2024 Nucleated RBC/100 WBC (Bld) [Ratio] 0 % 0-5 [facility] Platelet countOrdered By: Ken Ng on 08-20-2024 Platelets (Bld) [#/Vol] 296 10*3/uL 150-450 [facility] Potassium measurementOrdered By: Young Ng on 08-20-2024 Potassium [Moles/Vol] 3.5 mmol/L 3.5-5.1 [facility] RBC Auto (Bld) [#/Vol]Ordere d By: Young Ng on 08-20-2024 RBC (Bld) [#/Vol] 2.83 10*6/uL Low 4.2-5.4 [facility] Serum anion gap measurementO rdered By: Young Ng on 08-20-2024 Anion gap [Moles/Vol] 5 mmol/L 5-15 [facility] Serum or plasma calcium bennie urement (mass/volume)Ordered By: Young Ng on 08-20-2024 Calcium [Mass/Vol] 8.4 mg/dL Low 8.5-10.1 [facility] Serum or plasma creatinine m easurement (mass/volume)Ordered By: Young Ng 08-20-2024 Creatinine [Mass/Vol] 0.64 mg/dL 0.55-1.02 [facility] Comment on above: The validity of the calculated GFR & GFRAA in patients over 70 years has not been determined. Clinical correlation is essential. Serum or plasma urea nitroge n measurement (mass/volume)Ordered By: Young Ng on 08-20-2024 Urea nitrogen [Mass/Vol] 12 mg/dL 7-18 [facility] Sodium levelOrdered By: Young Ng on 08-20-2024 Sodium [Moles/Vol] 141 mmol/L 136-145 [facility] White blood cell (WBC) count Ordered By: Young Ng on 08-20-2024 WBC (Bld) [#/Vol] 4.0 10*3/uL Low 4.4-11.0 [facility] CBC W/Diff, Automatedon 08-04 Absolute Lymph 1.24 X10 3/uL Normal 0.83-4.51 [facility] Comment on above: Performed By: #### L 100.0100 ####[facility] [address] [place], [address] Absolute Neut 2.5 X10 3/uL Normal 2.0-7.7 [facility] Comment on above: Performed By: #### L 100.0100 ####[facility] [address] [place], [address] Basophils/100 WBC (Bld) 0.7 % Normal 0-1 [facility] Comment on above: Performed By: #### L 100.0100 ####[facility] [address] [place], [address] Eosinophils/100 WBC (Bld) 0.5 % Normal 0-5 [facility] Comment on above: Performed By: #### L 100.0100 ####[facility] [address] [place], [address] Erythrocyte distribution width (RBC) [Ratio] 14.9 % High 11.6-14.6 [facility] Comment on above: Performed By: #### L 100.0100 ####[facility] [address] [place], [address] Hematocrit (Bld) [Volume fraction] 30.3 % Low 37-47 [facility] Comment on above: Performed By: #### L 100.0100 ####[facility] [address] [place], [address] Hemoglobin (Bld) [Mass/Vol] 9.4 g/dL Low 12.0-15.0 [facility] Comment on above: Performed By: #### L 100.0100 ####[facility] [address] [place], [address] IG% 0.500 Normal 0.0-0.9 [facility] Comment on above: Result Comment: IG% - Immature Granulocytes (promyelocytes, myelocytes andmetamyelocytes) > 1% indicates that a LEFT SHIFT is Present. Performed By: #### L 100.0100 ####[facility] [address] [place], [address] Lymphocytes/100 WBC (Bld) 28.4 % Normal 19-41 [facility] Comment on above: Performed By: #### L 100.0100 ####[facility] [address] [place], [address] MCH (RBC) [Entitic mass] 29.3 pg Normal 27.0-32.0 [facility] Comment on above: Performed By: #### L 100.0100 ####[facility] [address] [place], [address] MCHC (RBC) [Mass/Vol] 31.0 g/dL Low 32-36 [facility] Comment on above: Performed By: #### L 100.0100 ####[facility] [address] [place], [address] MCV (RBC) [Entitic vol] 94.4 fL Normal 81-99 [facility] Comment on above: Performed By: #### L 100.0100 ####[facility] [address] [place], [address] Monocytes/100 WBC (Bld) 13.5 % High 0-10 [facility] Comment on above: Performed By: #### L 100.0100 ####[facility] [address] [place], [address] Neutrophils/100 WBC (Bld) 56.4 % Normal 47-70 [facility] Comment on above: Performed By: #### L 100.0100 ####[facility] [address] [place], [address] Nucleated RBC (Bld) [#/Vol] 0 10*3/uL Normal 0-5 [facility] Comment on above: Performed By: #### L 100.0100 ####[facility] [address] [place], [address] Platelet mean volume (Bld) [Entitic vol] 8.5 fL Normal 6.2-12.0 [facility] Comment on above: Performed By: #### L 100.0100 ####[facility] [address] [place], [address] Platelets (Bld) [#/Vol] 327 10*3/uL Normal 150-450 [facility] Comment on above: Performed By: #### L 100.0100 ####[facility] [address] [place], [address] RBC (Bld) [#/Vol] 3.21 10*6/uL Low 4.2-5.4 [facility] Comment on above: Performed By: #### L 100.0100 ####[facility] [address] [place], [address] RDW SD 52.0 fl High 35.1-43.9 [facility] Comment on above: Performed By: #### L 100.0100 ####[facility] [address] [place], [address] WBC (Bld) [#/Vol] 4.4 10*3/uL Normal 4.4-11.0 [facility] Comment on above: Performed By: #### L 100.0100 ####[facility] [address] [place], [address] COVID 19 AG RAPID (IMELDA Ruano)on 08-19-2024 SARS-CoV-2 (COVID-19) RNA ARIANE+probe Ql (Unsp spec) Normal [facility] Comment on above: Performed By: #### M 100.505 ####[facility] [address] [place], [address] SARS-CoV-2 (COVID-19) Ag IA. rapid Ql (Resp)Ordered By: Young Ng on 08-19-2024 SARS-CoV-2 Antigen (Rapid) [facility] Venous Duplex US, Unilateral on 08-19-2024 Venous Duplex US, Unilateral Normal [facility] HH, Hemoglobin AND Hematocri ton 08-14-2024 Hematocrit (Bld) [Volume fraction] 27.8 % Low 37-47 [facility] Comment on above: Performed By: #### L 100.0600 ####[facility] [address] [place], [address] Hemoglobin (Bld) [Mass/Vol] 8.7 g/dL Low 12.0-15.0 [facility] Comment on above: Performed By: #### L 100.0600 ####[facility] [address] [place], [address] Basic Metabolic Profile (BMP )on 08-13-2024 BUN/CRE 21.6 RATIO High 10-20 [facility] Comment on above: Performed By: #### L 500.2500, L100.0100 ####[facility] [address] [place], [address] CA,Total 8.5 mg/dL Normal 8.5-10.1 [facility] Comment on above: Performed By: #### L 500.2500, L100.0100 ####[facility] [address] [place], [address] Chloride [Moles/Vol] 108 mmol/L High 98-107 [facility] Comment on above: Performed By: #### L 500.2500, L100.0100 ####[facility] [address] [place], [address] CO2 [Moles/Vol] 31.0 mmol/L Normal 21.0-32.0 [facility] Comment on above: Performed By: #### L 500.2500, L100.0100 ####[facility] [address] [place], [address] Creatinine [Mass/Vol] 0.60 mg/dL Normal 0.55-1.02 [facility] Comment on above: Result Comment: The validity of the calculated GFR GFRAA in patients over70 years has not been determined. Clinical correlation isessential. Performed By: #### L 500.2500, L100.0100 ####[facility] [address] [place], [address] ECRCL 57.91 ml/min Normal [facility] Comment on above: Performed By: #### L 500.2500, L100.0100 ####[facility] [address] [place], [address] EST GFR - AA 126 mL/min Normal >60 [facility] Comment on above: Result Comment: Afri can Burmese GFR Calc Performed By: #### L 500.2500, L100.0100 ####[facility] [address] [place], [address] GAP 3 Low 5-15 [facility] Comment on above: Performed By: #### L 500.2500, L100.0100 ####[facility] [address] [place], [address] GFR/1.73 sq M.predicted among non-blacks MDRD (S/P/Bld) [Vol rate/Area] 104 mL/min/{1.73_m2} Normal >60 [facility] Comment on above: Result Comment: Non- GFR Calc Performed By: #### L 500.2500, L100.0100 ####[facility] [address] [place], [address] Glucose [Mass/Vol] 111 mg/dL High 74-106 [facility] Comment on above: Result Comment: Fast ing Glucose result from 100 to 125 mg/dLsuggests IMPAIRED HOMEOSTASIS per A.D.A. criteria. Performed By: #### L 500.2500, L100.0100 ####[facility] [address] [place], [address] Potassium [Moles/Vol] 3.5 mmol/L Normal 3.5-5.1 [facility] Comment on above: Performed By: #### L 500.2500, L100.0100 ####[facility] [address] [place], [address] Sodium [Moles/Vol] 142 mmol/L Normal 136-145 [facility] Comment on above: Performed By: #### L 500.2500, L100.0100 ####[facility] [address] [place], [address] Urea nitrogen [Mass/Vol] 13 mg/dL Normal 7-18 [facility] Comment on above: Performed By: #### L 500.2500, L100.0100 ####[facility] [address] [place], [address] CBC W/Diff, Automatedon 12-1 0-2023 Absolute Lymph 1.24 X10 3/uL Normal 0.83-4.51 [facility] Comment on above: Performed By: #### L 500.2500, L100.0100 ####[facility] [address] [place], [address] Absolute Neut 2.2 X10 3/uL Normal 2.0-7.7 [facility] Comment on above: Performed By: #### L 500.2500, L100.0100 ####[facility] [address] [place], [address] Basophils/100 WBC (Bld) 0.7 % Normal 0-1 [facility] Comment on above: Performed By: #### L 500.2500, L100.0100 ####[facility] [address] [place], [address] Eosinophils/100 WBC (Bld) 0.5 % Normal 0-5 [facility] Comment on above: Performed By: #### L 500.2500, L100.0100 ####[facility] [address] [place], [address] Erythrocyte distribution width (RBC) [Ratio] 15.5 % High 11.6-14.6 [facility] Comment on above: Performed By: #### L 500.2500, L100.0100 ####[facility] [address] [place], [address] Hematocrit (Bld) [Volume fraction] 27.7 % Low 37-47 [facility] Comment on above: Performed By: #### L 500.2500, L100.0100 ####[facility] [address] [place], [address] Hemoglobin (Bld) [Mass/Vol] 8.4 g/dL Low 12.0-15.0 [facility] Comment on above: Performed By: #### L 500.2500, L100.0100 ####[facility] [address] [place], [address] IG% 0.200 Normal 0.0-0.9 [facility] Comment on above: Result Comment: IG% - Immature Granulocytes (promyelocytes, myelocytes andmetamyelocytes) > 1% indicates that a LEFT SHIFT is Present. Performed By: #### L 500.2500, L100.0100 ####[facility] [address] [place], [address] Lymphocytes/100 WBC (Bld) 29.5 % Normal 19-41 [facility] Comment on above: Performed By: #### L 500.2500, L100.0100 ####[facility] [address] [place], [address] MCH (RBC) [Entitic mass] 29.1 pg Normal 27.0-32.0 [facility] Comment on above: Performed By: #### L 500.2500, L100.0100 ####[facility] [address] [place], [address] MCHC (RBC) [Mass/Vol] 30.3 g/dL Low 32-36 [facility] Comment on above: Performed By: #### L 500.2500, L100.0100 ####[facility] [address] [place], [address] MCV (RBC) [Entitic vol] 95.8 fL Normal 81-99 [facility] Comment on above: Performed By: #### L 500.2500, L100.0100 ####[facility] [address] [place], [address] Monocytes/100 WBC (Bld) 16.4 % High 0-10 [facility] Comment on above: Performed By: #### L 500.2500, L100.0100 ####[facility] [address] [place], [address] Neutrophils/100 WBC (Bld) 52.7 % Normal 47-70 [facility] Comment on above: Performed By: #### L 500.2500, L100.0100 ####[facility] [address] [place], [address] Nucleated RBC (Bld) [#/Vol] 0 10*3/uL Normal 0-5 [facility] Comment on above: Performed By: #### L 500.2500, L100.0100 ####[facility] [address] [place], [address] Platelet mean volume (Bld) [Entitic vol] 8.7 fL Normal 6.2-12.0 [facility] Comment on above: Performed By: #### L 500.2500, L100.0100 ####[facility] [address] [place], [address] Platelets (Bld) [#/Vol] 381 10*3/uL Normal 150-450 [facility] Comment on above: Performed By: #### L 500.2500, L100.0100 ####[facility] [address] [place], [address] RBC (Bld) [#/Vol] 2.89 10*6/uL Low 4.2-5.4 [facility] Comment on above: Performed By: #### L 500.2500, L100.0100 ####[facility] [address] [place], [address] RDW SD 54.0 fl High 35.1-43.9 [facility] Comment on above: Performed By: #### L 500.2500, L100.0100 ####[facility] [address] [place], [address] WBC (Bld) [#/Vol] 4.2 10*3/uL Low 4.4-11.0 [facility] Comment on above: Performed By: #### L 500.2500, L100.0100 ####[facility] [address] [place], [address] Lower GI hemoglobin IA Ql (S tl)Ordered By: Young Ng on 08-13-2024 Stool Occult Blood (SINCERE) Positive Abnormal [facility] Stool Occult Blood iFOBon STOB Positive Normal [facility] Comment on above: Performed By: #### M 100.7900 ####[facility] [address] [place], [address] COVID 19 AG RAPID (IMELDA Ruano)on 08-12-2024 SARS-CoV-2 (COVID-19) RNA ARIANE+probe Ql (Unsp spec) Normal [facility] Comment on above: Performed By: #### M 100.505 ####[facility] [address] [place], [address] SARS-CoV-2 (COVID-19) Ag IA. rapid Ql (Resp)Ordered By: Young Ng on 08-12-2024 SARS-CoV-2 Antigen (Rapid) [facility] HH, Hemoglobin AND Hematocri ton 08-10-2024 Hematocrit (Bld) [Volume fraction] 28.0 % Low 37-47 [facility] Comment on above: Performed By: #### L 100.0600 ####[facility] [address] [place], [address] Hemoglobin (Bld) [Mass/Vol] 8.7 g/dL Low 12.0-15.0 [facility] Comment on above: Performed By: #### L 100.0600 ####[facility] [address] [place], [address] CBC W/Diff, Automatedon 12-0 Absolute Neut Normal 2.0-7.7 [facility] Comment on above: Result Comment: Canc elled via OM: Order cancelled - Patient discharged Performed By: #### L 100.0100 ####[facility] [address] [place], [address] HCT Normal 37-47 [facility] Comment on above: Result Comment: Canc elled via OM: Order cancelled - Patient discharged Performed By: #### L 100.0100 ####[facility] [address] [place], [address] HGB Normal 12.0-15.0 [facility] Comment on above: Result Comment: Canc elled via OM: Order cancelled - Patient discharged Performed By: #### L 100.0100 ####[facility] [address] [place], [address] MCH Normal 27.0-32.0 [facility] Comment on above: Result Comment: Canc elled via OM: Order cancelled - Patient discharged Performed By: #### L 100.0100 ####[facility] [address] [place], [address] MCHC Normal 32-36 [facility] Comment on above: Result Comment: Canc elled via OM: Order cancelled - Patient discharged Performed By: #### L 100.0100 ####[facility] [address] [place], [address] MCV Normal 81-99 [facility] Comment on above: Result Comment: Canc elled via OM: Order cancelled - Patient discharged Performed By: #### L 100.0100 ####[facility] [address] [place], [address] NEUT% Normal 47-70 [facility] Comment on above: Result Comment: Canc elled via OM: Order cancelled - Patient discharged Performed By: #### L 100.0100 ####[facility] [address] [place], [address] PLT Normal 150-450 [facility] Comment on above: Result Comment: Canc elled via OM: Order cancelled - Patient discharged Performed By: #### L 100.0100 ####[facility] [address] [place], [address] RBC Normal 4.2-5.4 [facility] Comment on above: Result Comment: Canc elled via OM: Order cancelled - Patient discharged Performed By: #### L 100.0100 ####[facility] [address] [place], [address] RDW CV Normal 11.6-14.6 [facility] Comment on above: Result Comment: Canc elled via OM: Order cancelled - Patient discharged Performed By: #### L 100.0100 ####[facility] [address] [place], [address] RDW SD Normal 35.1-43.9 [facility] Comment on above: Result Comment: Canc elled via OM: Order cancelled - Patient discharged Performed By: #### L 100.0100 ####[facility] [address] [place], [address] WBC Normal 4.4-11.0 [facility] Comment on above: Result Comment: Canc elled via OM: Order cancelled - Patient discharged Performed By: #### L 100.0100 ####[facility] [address] [place], [address] CBC W/Diff, Automatedon 12-0 4-2023 Absolute Neut Normal 2.0-7.7 [facility] Comment on above: Result Comment: Canc elled via OM: Order cancelled - Patient discharged Performed By: #### L 100.0100 ####[facility] [address] [place], [address] HCT Normal 37-47 [facility] Comment on above: Result Comment: Canc elled via OM: Order cancelled - Patient discharged Performed By: #### L 100.0100 ####[facility] [address] [place], [address] HGB Normal 12.0-15.0 [facility] Comment on above: Result Comment: Canc elled via OM: Order cancelled - Patient discharged Performed By: #### L 100.0100 ####[facility] [address] [place], [address] MCH Normal 27.0-32.0 [facility] Comment on above: Result Comment: Canc elled via OM: Order cancelled - Patient discharged Performed By: #### L 100.0100 ####[facility] [address] [place], [address] MCHC Normal 32-36 [facility] Comment on above: Result Comment: Canc elled via OM: Order cancelled - Patient discharged Performed By: #### L 100.0100 ####[facility] [address] [place], [address] MCV Normal 81-99 [facility] Comment on above: Result Comment: Canc elled via OM: Order cancelled - Patient discharged Performed By: #### L 100.0100 ####[facility] [address] [place], [address] NEUT% Normal 47-70 [facility] Comment on above: Result Comment: Canc elled via OM: Order cancelled - Patient discharged Performed By: #### L 100.0100 ####[facility] [address] [place], [address] PLT Normal 150-450 [facility] Comment on above: Result Comment: Canc elled via OM: Order cancelled - Patient discharged Performed By: #### L 100.0100 ####[facility] [address] [place], [address] RBC Normal 4.2-5.4 [facility] Comment on above: Result Comment: Canc elled via OM: Order cancelled - Patient discharged Performed By: #### L 100.0100 ####[facility] [address] [place], [address] RDW CV Normal 11.6-14.6 [facility] Comment on above: Result Comment: Canc elled via OM: Order cancelled - Patient discharged Performed By: #### L 100.0100 ####[facility] [address] [place], [address] RDW SD Normal 35.1-43.9 [facility] Comment on above: Result Comment: Canc elled via OM: Order cancelled - Patient discharged Performed By: #### L 100.0100 ####[facility] [address] [place], [address] WBC Normal 4.4-11.0 [facility] Comment on above: Result Comment: Canc elled via OM: Order cancelled - Patient discharged Performed By: #### L 100.0100 ####[facility] [address] [place], [address] HH, Hemoglobin AND Hematocri ton 08-07-2024 Hematocrit (Bld) [Volume fraction] 27.9 % Low 37-47 [facility] Comment on above: Performed By: #### L 100.0600 ####[facility] [address] [place], [address] Hemoglobin (Bld) [Mass/Vol] 8.9 g/dL Low 12.0-15.0 [facility] Comment on above: Performed By: #### L 100.0600 ####[facility] [address] [place], [address] Basic Metabolic Profile (BMP )on 08-06-2024 BUN/CRE 19.4 RATIO Normal 10-20 [facility] [facility] Comment on above: Performed By: #### L 100.0100, L500.2500 ####[facility] [address] [place], [address] CA,Total 8.3 mg/dL Low 8.5-10.1 [facility] Comment on above: Performed By: #### L 100.0100, L500.2500 ####[facility] [address] [place], [address] Chloride [Moles/Vol] 108 mmol/L High 98-107 [facility] Comment on above: Performed By: #### L 100.0100, L500.2500 ####[facility] [address] [place], [address] CO2 [Moles/Vol] 26.0 mmol/L Normal 21.0-32.0 [facility] Comment on above: Performed By: #### L 100.0100, L500.2500 ####[facility] [address] [place], [address] Creatinine [Mass/Vol] 0.46 mg/dL Low 0.55-1.02 [facility] Comment on above: Result Comment: The validity of the calculated GFR GFRAA in patients over70 years has not been determined. Clinical correlation isessential. Performed By: #### L 100.0100, L500.2500 ####[facility] [address] [place], [address] ECRCL 57.91 ml/min Normal [facility] Comment on above: Performed By: #### L 100.0100, L500.2500 ####[facility] [address] [place], [address] EST GFR - AA 170 mL/min Normal >60 [facility] Comment on above: Result Comment: Afri can Burmese GFR Calc Performed By: #### L 100.0100, L500.2500 ####[facility] [address] [place], [address] GAP 4 Low 5-15 [facility] Comment on above: Performed By: #### L 100.0100, L500.2500 ####[facility] [address] [place], [address] GFR/1.73 sq M.predicted among non-blacks MDRD (S/P/Bld) [Vol rate/Area] 141 mL/min/{1.73_m2} Normal >60 [facility] Comment on above: Result Comment: Non- GFR Calc Performed By: #### L 100.0100, L500.2500 ####[facility] [address] [place], [address] Glucose [Mass/Vol] 115 mg/dL High 74-106 [facility] Comment on above: Result Comment: Fast ing Glucose result from 100 to 125 mg/dLsuggests IMPAIRED HOMEOSTASIS per A.D.A. criteria. Performed By: #### L 100.0100, L500.2500 ####[facility] [address] [place], [address] Potassium [Moles/Vol] 3.6 mmol/L Normal 3.5-5.1 [facility] Comment on above: Performed By: #### L 100.0100, L500.2500 ####[facility] [address] [place], [address] Sodium [Moles/Vol] 138 mmol/L Normal 136-145 [facility] Comment on above: Performed By: #### L 100.0100, L500.2500 ####[facility] [address] [place], [address] Urea nitrogen [Mass/Vol] 9 mg/dL Normal 7-18 [facility] Comment on above: Performed By: #### L 100.0100, L500.2500 ####[facility] [address] [place], [address] BUN Normal 7-18 [facility] Comment on above: Result Comment: Canc elled via OM: Order cancelled - Patient discharged Performed By: #### L 500.2500 ####[facility] [address] [place], [address] BUN/CRE Normal 10-20 [facility] Comment on above: Result Comment: Canc elled via OM: Order cancelled - Patient discharged Performed By: #### L 500.2500 ####[facility] [address] [place], [address] CA,Total Normal 8.5-10.1 [facility] Comment on above: Result Comment: Canc elled via OM: Order cancelled - Patient discharged Performed By: #### L 500.2500 ####[facility] [address] [place], [address] CL Normal 98-107 [facility] Comment on above: Result Comment: Canc elled via OM: Order cancelled - Patient discharged Performed By: #### L 500.2500 ####[facility] [address] [place], [address] CO2 Normal 21.0-32.0 [facility] Comment on above: Result Comment: Canc elled via OM: Order cancelled - Patient discharged Performed By: #### L 500.2500 ####[facility] [address] [place], [address] CREAT,SERUM Normal 0.55-1.02 [facility] Comment on above: Result Comment: Canc elled via OM: Order cancelled - Patient discharged Performed By: #### L 500.2500 ####[facility] [address] [place], [address] EST GFR Normal >60 [facility] Comment on above: Result Comment: Canc elled via OM: Order cancelled - Patient discharged Performed By: #### L 500.2500 ####[facility] [address] [place], [address] EST GFR - AA Normal >60 [facility] Comment on above: Result Comment: Canc elled via OM: Order cancelled - Patient discharged Performed By: #### L 500.2500 ####[facility] [address] [place], [address] GAP Normal 5-15 [facility] Comment on above: Result Comment: Canc elled via OM: Order cancelled - Patient discharged Performed By: #### L 500.2500 ####[facility] [address] [place], [address] GLU Normal 74-106 [facility] Comment on above: Result Comment: Canc elled via OM: Order cancelled - Patient discharged Performed By: #### L 500.2500 ####[facility] [address] [place], [address] Potassium Normal 3.5-5.1 [facility] Comment on above: Result Comment: Canc elled via OM: Order cancelled - Patient discharged Performed By: #### L 500.2500 ####[facility] [address] [place], [address] Basic Metabolic Profile (BMP) Normal 136-145 [facility] Comment on above: Result Comment: Canc elled via OM: Order cancelled - Patient discharged Performed By: #### L 500.2500 ####[facility] [address] [place], [address] CBC W/Diff, Automatedon 12-0 -2023 Absolute Neut Normal 2.0-7.7 [facility] Comment on above: Result Comment: Canc elled via OM: Order cancelled - Patient discharged Performed By: #### L 100.0100 ####[facility] [address] [place], [address] HCT Normal 37-47 [facility] Comment on above: Result Comment: Canc elled via OM: Order cancelled - Patient discharged Performed By: #### L 100.0100 ####[facility] [address] [place], [address] HGB Normal 12.0-15.0 [facility] Comment on above: Result Comment: Canc elled via OM: Order cancelled - Patient discharged Performed By: #### L 100.0100 ####[facility] [address] [place], [address] MCH Normal 27.0-32.0 [facility] Comment on above: Result Comment: Canc elled via OM: Order cancelled - Patient discharged Performed By: #### L 100.0100 ####[facility] [address] [place], [address] MCHC Normal 32-36 [facility] Comment on above: Result Comment: Canc elled via OM: Order cancelled - Patient discharged Performed By: #### L 100.0100 ####[facility] [address] [place], [address] MCV Normal 81-99 [facility] Comment on above: Result Comment: Canc elled via OM: Order cancelled - Patient discharged Performed By: #### L 100.0100 ####[facility] [address] [place], [address] NEUT% Normal 47-70 [facility] Comment on above: Result Comment: Canc elled via OM: Order cancelled - Patient discharged Performed By: #### L 100.0100 ####[facility] [address] [place], [address] PLT Normal 150-450 [facility] Comment on above: Result Comment: Canc elled via OM: Order cancelled - Patient discharged Performed By: #### L 100.0100 ####[facility] [address] [place], [address] RBC Normal 4.2-5.4 [facility] Comment on above: Result Comment: Canc elled via OM: Order cancelled - Patient discharged Performed By: #### L 100.0100 ####[facility] [address] [place], [address] RDW CV Normal 11.6-14.6 [facility] Comment on above: Result Comment: Canc elled via OM: Order cancelled - Patient discharged Performed By: #### L 100.0100 ####[facility] [address] [place], [address] RDW SD Normal 35.1-43.9 [facility] Comment on above: Result Comment: Canc elled via OM: Order cancelled - Patient discharged Performed By: #### L 100.0100 ####[facility] [address] [place], [address] WBC Normal 4.4-11.0 [facility] Comment on above: Result Comment: Canc elled via OM: Order cancelled - Patient discharged Performed By: #### L 100.0100 ####[facility] [address] [place], [address] Absolute Lymph 1.33 X10 3/uL Normal 0.83-4.51 [facility] Comment on above: Performed By: #### L 100.0100, L500.2500 ####[facility] [address] [place], [address] Absolute Neut 4.4 X10 3/uL Normal 2.0-7.7 [facility] Comment on above: Performed By: #### L 100.0100, L500.2500 ####[facility] [address] [place], [address] Basophils/100 WBC (Bld) 0.4 % Normal 0-1 [facility] Comment on above: Performed By: #### L 100.0100, L500.2500 ####[facility] [address] [place], [address] Eosinophils/100 WBC (Bld) 2.7 % Normal 0-5 [facility] Comment on above: Performed By: #### L 100.0100, L500.2500 ####[facility] [address] [place], [address] Erythrocyte distribution width (RBC) [Ratio] 15.4 % High 11.6-14.6 [facility] Comment on above: Performed By: #### L 100.0100, L500.2500 ####[facility] [address] [place], [address] Hematocrit (Bld) [Volume fraction] 27.3 % Low 37-47 [facility] Comment on above: Performed By: #### L 100.0100, L500.2500 ####[facility] [address] [place], [address] Hemoglobin (Bld) [Mass/Vol] 8.8 g/dL Low 12.0-15.0 [facility] Comment on above: Performed By: #### L 100.0100, L500.2500 ####[facility] [address] [place], [address] IG% 0.900 Normal 0.0-0.9 [facility] Comment on above: Result Comment: IG% - Immature Granulocytes (promyelocytes, myelocytes andmetamyelocytes) > 1% indicates that a LEFT SHIFT is Present. Performed By: #### L 100.0100, L500.2500 ####[facility] [address] [place], [address] Lymphocytes/100 WBC (Bld) 19.6 % Normal 19-41 [facility] Comment on above: Performed By: #### L 100.0100, L500.2500 ####[facility] [address] [place], [address] MCH (RBC) [Entitic mass] 29.3 pg Normal 27.0-32.0 [facility] Comment on above: Performed By: #### L 100.0100, L500.2500 ####[facility] [address] [place], [address] MCHC (RBC) [Mass/Vol] 32.2 g/dL Normal 32-36 [facility] Comment on above: Performed By: #### L 100.0100, L500.2500 ####[facility] [address] [place], [address] MCV (RBC) [Entitic vol] 91.0 fL Normal 81-99 [facility] Comment on above: Performed By: #### L 100.0100, L500.2500 ####[facility] [address] [place], [address] Monocytes/100 WBC (Bld) 12.1 % High 0-10 [facility] Comment on above: Performed By: #### L 100.0100, L500.2500 ####[facility] [address] [place], [address] Neutrophils/100 WBC (Bld) 64.3 % Normal 47-70 [facility] Comment on above: Performed By: #### L 100.0100, L500.2500 ####[facility] [address] [place], [address] Nucleated RBC (Bld) [#/Vol] 0 10*3/uL Normal 0-5 [facility] Comment on above: Performed By: #### L 100.0100, L500.2500 ####[facility] [address] [place], [address] Platelet mean volume (Bld) [Entitic vol] 8.6 fL Normal 6.2-12.0 [facility] Comment on above: Performed By: #### L 100.0100, L500.2500 ####[facility] [address] [place], [address] Platelets (Bld) [#/Vol] 430 10*3/uL Normal 150-450 [facility] Comment on above: Performed By: #### L 100.0100, L500.2500 ####[facility] [address] [place], [address] RBC (Bld) [#/Vol] 3.00 10*6/uL Low 4.2-5.4 [facility] Comment on above: Performed By: #### L 100.0100, L500.2500 ####[facility] [address] [place], [address] RDW SD 50.8 fl High 35.1-43.9 [facility] Comment on above: Performed By: #### L 100.0100, L500.2500 ####[facility] [address] [place], [address] WBC (Bld) [#/Vol] 6.8 10*3/uL Normal 4.4-11.0 [facility] Comment on above: Performed By: #### L 100.0100, L500.2500 ####[facility] [address] [place], [address] Absolute neutrophil countOrd ered By: Mohini Willson on 08-05-2024 Neutrophils (Bld) [#/Vol] 4.6 10*3/uL 2.0-7.7 [facility] Basic Metabolic Profile (BMP )on 08-05-2024 BUN/CRE 16.4 RATIO Normal 10-20 [facility] Comment on above: Performed By: #### L 500.2500 ####[facility] [address] [place], [address] CA,Total 8.0 mg/dL Low 8.5-10.1 [facility] Comment on above: Performed By: #### L 500.2500 ####[facility] [address] [place], [address] Chloride [Moles/Vol] 108 mmol/L High 98-107 [facility] Comment on above: Performed By: #### L 500.2500 ####[facility] [address] [place], [address] CO2 [Moles/Vol] 25.0 mmol/L Normal 21.0-32.0 [facility] Comment on above: Performed By: #### L 500.2500 ####[facility] [address] [place], [address] Creatinine [Mass/Vol] 0.43 mg/dL Low 0.55-1.02 [facility] Comment on above: Result Comment: The validity of the calculated GFR GFRAA in patients over70 years has not been determined. Clinical correlation isessential. Performed By: #### L 500.2500 ####[facility] [address] [place], [address] ECRCL 57.73 ml/min Normal [facility] Comment on above: Performed By: #### L 500.2500 ####[facility] [address] [place], [address] EST GFR - AA 188 mL/min Normal >60 [facility] Comment on above: Result Comment: Afri can Burmese GFR Calc Performed By: #### L 500.2500 ####[facility] [address] [place], [address] GAP 7 Normal 5-15 [facility] Comment on above: Performed By: #### L 500.2500 ####[facility] [address] [place], [address] GFR/1.73 sq M.predicted among non-blacks MDRD (S/P/Bld) [Vol rate/Area] 155 mL/min/{1.73_m2} Normal >60 [facility] Comment on above: Result Comment: Non- GFR Calc Performed By: #### L 500.2500 ####[facility] [address] [place], [address] Glucose [Mass/Vol] 118 mg/dL High 74-106 [facility] Comment on above: Result Comment: Fast ing Glucose result from 100 to 125 mg/dLsuggests IMPAIRED HOMEOSTASIS per A.D.A. criteria. Performed By: #### L 500.2500 ####[facility] [address] [place], [address] Potassium [Moles/Vol] 3.1 mmol/L Low 3.5-5.1 [facility] Comment on above: Performed By: #### L 500.2500 ####[facility] [address] [place], [address] Sodium [Moles/Vol] 140 mmol/L Normal 136-145 [facility] Comment on above: Performed By: #### L 500.2500 ####[facility] [address] [place], [address] Urea nitrogen [Mass/Vol] 7 mg/dL Normal 7-18 [facility] Comment on above: Performed By: #### L 500.2500 ####[facility] [address] [place], [address] Basophil percentageOrdered B y: Mohiniharshad Willson on 08-05-2024 Basophils/100 WBC (Bld) 0.5 % 0-1 [facility] Blood urea nitrogen (BUN)/cr eatinine ratioOrdered By: Mohini Willson on 08-05-2024 Urea nitrogen/Creatinine [Mass ratio] 16.4 mg/mg 10-20 [facility] CBC W/Diff, Automatedon 12--2023 Absolute Lymph 1.10 X10 3/uL Normal 0.83-4.51 [facility] Comment on above: Performed By: #### L 100.0100 ####[facility] [address] [place], [address] Absolute Neut 4.6 X10 3/uL Normal 2.0-7.7 [facility] Comment on above: Performed By: #### L 100.0100 ####[facility] [address] [place], [address] Basophils/100 WBC (Bld) 0.5 % Normal 0-1 [facility] Comment on above: Performed By: #### L 100.0100 ####[facility] [address] [place], [address] Eosinophils/100 WBC (Bld) 0.8 % Normal 0-5 [facility] Comment on above: Performed By: #### L 100.0100 ####[facility] [address] [place], [address] Erythrocyte distribution width (RBC) [Ratio] 15.4 % High 11.6-14.6 [facility] Comment on above: Performed By: #### L 100.0100 ####[facility] [address] [place], [address] Hematocrit (Bld) [Volume fraction] 27.4 % Low 37-47 [facility] Comment on above: Performed By: #### L 100.0100 ####[facility] [address] [place], [address] Hemoglobin (Bld) [Mass/Vol] 9.0 g/dL Low 12.0-15.0 [facility] Comment on above: Performed By: #### L 100.0100 ####[facility] [address] [place], [address] IG% 0.600 Normal 0.0-0.9 [facility] Comment on above: Result Comment: IG% - Immature Granulocytes (promyelocytes, myelocytes andmetamyelocytes) > 1% indicates that a LEFT SHIFT is Present. Performed By: #### L 100.0100 ####[facility] [address] [place], [address] Lymphocytes/100 WBC (Bld) 17.0 % Low 19-41 [facility] Comment on above: Performed By: #### L 100.0100 ####[facility] [address] [place], [address] MCH (RBC) [Entitic mass] 29.9 pg Normal 27.0-32.0 [facility] Comment on above: Performed By: #### L 100.0100 ####[facility] [address] [place], [address] MCHC (RBC) [Mass/Vol] 32.8 g/dL Normal 32-36 [facility] Comment on above: Performed By: #### L 100.0100 ####[facility] [address] [place], [address] MCV (RBC) [Entitic vol] 91.0 fL Normal 81-99 [facility] Comment on above: Performed By: #### L 100.0100 ####[facility] [address] [place], [address] Monocytes/100 WBC (Bld) 11.0 % High 0-10 [facility] Comment on above: Performed By: #### L 100.0100 ####[facility] [address] [place], [address] Neutrophils/100 WBC (Bld) 70.1 % High 47-70 [facility] Comment on above: Performed By: #### L 100.0100 ####[facility] [address] [place], [address] Nucleated RBC (Bld) [#/Vol] 0 10*3/uL Normal 0-5 [facility] Comment on above: Performed By: #### L 100.0100 ####[facility] [address] [place], [address] Platelet mean volume (Bld) [Entitic vol] 8.7 fL Normal 6.2-12.0 [facility] Comment on above: Performed By: #### L 100.0100 ####[facility] [address] [place], [address] Platelets (Bld) [#/Vol] 433 10*3/uL Normal 150-450 [facility] Comment on above: Performed By: #### L 100.0100 ####[facility] [address] [place], [address] RBC (Bld) [#/Vol] 3.01 10*6/uL Low 4.2-5.4 [facility] Comment on above: Performed By: #### L 100.0100 ####[facility] [address] [place], [address] RDW SD 50.4 fl High 35.1-43.9 [facility] Comment on above: Performed By: #### L 100.0100 ####[facility] [address] [place], [address] WBC (Bld) [#/Vol] 6.5 10*3/uL Normal 4.4-11.0 [facility] Comment on above: Performed By: #### L 100.0100 ####[facility] [address] [facility] [place], [address] Carbon dioxide measurementOr dered By: Mohini Willson on 08-05-2024 CO2 [Moles/Vol] 25.0 mmol/L 21.0-32.0 [facility] Chloride measurementOrdered By: Mohini Willson on 08-05-2024 Chloride [Moles/Vol] 108 mmol/L High 98-107 [facility] Eosinophil percentageOrdered By: Mohini Willson on 08-05-2024 Eosinophils/100 WBC (Bld) 0.8 % 0-5 [facility] Erythrocyte distribution wid th ratioOrdered By: Mohini Willson on 08-05-2024 Erythrocyte distribution width (RBC) [Ratio] 15.4 % High 11.6-14.6 [facility] Erythrocyte distribution wid th standard deviationOrdered By: Mohini Willson on 08-05-2024 Erythrocyte distribution width (RBC) [Entitic vol] 50.4 fL High 35.1-43.9 [facility] Estimated glomerular filtrat ion rate (GFR) AmericanOrdered By: Mohini Willson on 08-05-2024 Estimated GFR (MDRD) Amer 188 mL/min >60 [facility] Comment on above: GFR Calc Estimation of creatinine deangelo aranceOrdered By: Mohini Willson on 08-05-2024 Estimated Creatinine Clearance Calc 57.73 ml/min [facility] Glomerular filtration rate ( GFR) estimationOrdered By: Mohini Willson on 08-05-2024 Estimated GFR (MDRD) Non-Af Amer 155 mL/min >60 [facility] Comment on above: Non- GFR Calc Glucose measurementOrdered B y: Mohini Willson on 08-05-2024 Glucose [Mass/Vol] 118 mg/dL High 74-106 [facility] Comment on above: Fasting Glucose resu lt from 100 to 125 mg/dL suggests IMPAIRED HOMEOSTASIS per A.D.A. criteria. Hematocrit Auto (Bld) [Volum e fraction]Ordered By: Mohini Willson on 08-05-2024 Hematocrit (Bld) [Volume fraction] 27.4 % Low 37-47 [facility] Hemoglobin measurementOrdere d By: Mohini Willson on 08-05-2024 Hemoglobin (Bld) [Mass/Vol] 9.0 g/dL Low 12.0-15.0 [facility] Immature granulocytes/100 WB C Auto (Bld)Ordered By: Mohini Willson on 08-05-2024 Immature granulocytes/100 WBC (Bld) 0.600 % 0.0-0.9 [facility] Comment on above: IG% - Immature Granu locytes (promyelocytes, myelocytes and metamyelocytes) > 1% indicates that a LEFT SHIFT is Present. Lymphocytes Auto (Unsp spec) [#/Vol]Ordered By: Mohini Willson on 08-05-2024 Lymphocytes (Bld) [#/Vol] 1.10 10*3/uL 0.83-4.51 [facility] Lymphocytes/100 WBC Auto (Un sp spec)Ordered By: Mohini Willson on 08-05-2024 Lymphocytes/100 WBC (Bld) 17.0 % Low 19-41 [facility] MCV (mean corpuscular volume ) determinationOrdered By: Mohini Willson on 08-05-2024 MCV (RBC) [Entitic vol] 91.0 fL 81-99 [facility] Mean corpuscular hemoglobin (MCH) determinationOrdered By: Mohini Willson on 08-05-2024 MCH (RBC) [Entitic mass] 29.9 pg 27.0-32.0 [facility] Mean corpuscular hemoglobin concentration (MCHC) determinationOrdered By: Mohini Willson on 08-05-2024 MCHC (RBC) [Mass/Vol] 32.8 g/dL 32-36 [facility] Mean platelet volume determi nationOrdered By: Mohini Willson on 08-05-2024 Platelet mean volume (Bld) [Entitic vol] 8.7 fL 6.2-12.0 [facility] Monocyte percentageOrdered B y: Mohini Willson on 08-05-2024 Monocytes/100 WBC (Bld) 11.0 % High 0-10 [facility] Neutrophil percentageOrdered By: Mohini Willson on 08-05-2024 Neutrophils/100 WBC (Bld) 70.1 % High 47-70 [facility] Nucleated red blood cell per centageOrdered By: Mohini Willson on 08-05-2024 Nucleated RBC/100 WBC (Bld) [Ratio] 0 % 0-5 [facility] Platelet countOrdered By: Na judy Willson on 08-05-2024 Platelets (Bld) [#/Vol] 433 10*3/uL 150-450 [facility] Potassium measurementOrdered By: Mohini Willson on 08-05-2024 Potassium [Moles/Vol] 3.1 mmol/L Low 3.5-5.1 [facility] RBC Auto (Bld) [#/Vol]Ordere d By: Mohini Willson on 08-05-2024 RBC (Bld) [#/Vol] 3.01 10*6/uL Low 4.2-5.4 [facility] Serum anion gap measurementO rdered By: Mohini Willson on 08-05-2024 Anion gap [Moles/Vol] 7 mmol/L 5-15 [facility] Serum or plasma calcium bennie urement (mass/volume)Ordered By: Mohini Willson on 08-05-2024 Calcium [Mass/Vol] 8.0 mg/dL Low 8.5-10.1 [facility] Serum or plasma creatinine m easurement (mass/volume)Ordered By: Mohini Willson on 08-05-2024 Creatinine [Mass/Vol] 0.43 mg/dL Low 0.55-1.02 [facility] Comment on above: The validity of the calculated GFR & GFRAA in patients over 70 years has not been determined. Clinical correlation is essential. Serum or plasma urea nitroge n measurement (mass/volume)Ordered By: Mohini Willson on 08-05-2024 Urea nitrogen [Mass/Vol] 7 mg/dL 7-18 [facility] Sodium levelOrdered By: Mohini Willson on 08-05-2024 Sodium [Moles/Vol] 140 mmol/L 136-145 [facility] White blood cell (WBC) count Ordered By: Mohini Willson on 08-05-2024 WBC (Bld) [#/Vol] 6.5 10*3/uL 4.4-11.0 [facility] Basic Metabolic Profile (BMP )on 08-04-2024 BUN/CRE 13.5 RATIO Normal 10-20 [facility] Comment on above: Performed By: #### L 500.2500 ####[facility] [address] [place], [address] CA,Total 7.6 mg/dL Low 8.5-10.1 [facility] Comment on above: Performed By: #### L 500.2500 ####[facility] [address] [place], [address] Chloride [Moles/Vol] 108 mmol/L High 98-107 [facility] Comment on above: Performed By: #### L 500.2500 ####[facility] [address] [place], [address] CO2 [Moles/Vol] 24.0 mmol/L Normal 21.0-32.0 [facility] Comment on above: Performed By: #### L 500.2500 ####[facility] [address] [place], [address] Creatinine [Mass/Vol] 0.44 mg/dL Low 0.55-1.02 [facility] Comment on above: Result Comment: The validity of the calculated GFR GFRAA in patients over70 years has not been determined. Clinical correlation isessential. Performed By: #### L 500.2500 ####[facility] [address] [place], [address] ECRCL 57.73 ml/min Normal [facility] Comment on above: Performed By: #### L 500.2500 ####[facility] [address] [place], [address] EST GFR - AA 179 mL/min Normal >60 [facility] Comment on above: Result Comment: Afri can Burmese GFR Calc Performed By: #### L 500.2500 ####[facility] [address] [place], [address] GAP 8 Normal 5-15 [facility] Comment on above: Performed By: #### L 500.2500 ####[facility] [address] [place], [address] GFR/1.73 sq M.predicted among non-blacks MDRD (S/P/Bld) [Vol rate/Area] 148 mL/min/{1.73_m2} Normal >60 [facility] Comment on above: Result Comment: Non- GFR Calc Performed By: #### L 500.2500 ####[facility] [address] [place], [address] Glucose [Mass/Vol] 109 mg/dL High 74-106 [facility] Comment on above: Result Comment: Fast ing Glucose result from 100 to 125 mg/dLsuggests IMPAIRED HOMEOSTASIS per A.D.A. criteria. Performed By: #### L 500.2500 ####[facility] [address] [place], [address] Potassium [Moles/Vol] 3.2 mmol/L Low 3.5-5.1 [facility] Comment on above: Performed By: #### L 500.2500 ####[facility] [address] [place], [address] Sodium [Moles/Vol] 140 mmol/L Normal 136-145 [facility] Comment on above: Performed By: #### L 500.2500 ####[facility] [address] [place], [address] Urea nitrogen [Mass/Vol] 6 mg/dL Low 7-18 [facility] Comment on above: Performed By: #### L 500.2500 ####[facility] [address] [place], [address] CBC W/Diff, Automatedon 12-0 -2023 Absolute Lymph 1.18 X10 3/uL Normal 0.83-4.51 [facility] Comment on above: Performed By: #### L 100.0100 ####[facility] [address] [place], [address] Absolute Neut 3.6 X10 3/uL Normal 2.0-7.7 [facility] Comment on above: Performed By: #### L 100.0100 ####[facility] [address] [place], [address] Basophils/100 WBC (Bld) 0.5 % Normal 0-1 [facility] Comment on above: Performed By: #### L 100.0100 ####[facility] [address] [place], [address] Eosinophils/100 WBC (Bld) 0.0 % Normal 0-5 [facility] Comment on above: Performed By: #### L 100.0100 ####[facility] [address] [place], [address] Erythrocyte distribution width (RBC) [Ratio] 15.4 % High 11.6-14.6 [facility] Comment on above: Performed By: #### L 100.0100 ####[facility] [address] [place], [address] Hematocrit (Bld) [Volume fraction] 27.2 % Low 37-47 [facility] Comment on above: Performed By: #### L 100.0100 ####[facility] [address] [place], [address] Hemoglobin (Bld) [Mass/Vol] 8.9 g/dL Low 12.0-15.0 [facility] Comment on above: Performed By: #### L 100.0100 ####[facility] [address] [place], [address] IG% 0.700 Normal 0.0-0.9 [facility] Comment on above: Result Comment: IG% - Immature Granulocytes (promyelocytes, myelocytes andmetamyelocytes) > 1% indicates that a LEFT SHIFT is Present. Performed By: #### L 100.0100 ####[facility] [address] [place], [address] Lymphocytes/100 WBC (Bld) 20.9 % Normal 19-41 [facility] Comment on above: Performed By: #### L 100.0100 ####[facility] [address] [place], [address] MCH (RBC) [Entitic mass] 30.0 pg Normal 27.0-32.0 [facility] Comment on above: Performed By: #### L 100.0100 ####[facility] [address] [place], [address] MCHC (RBC) [Mass/Vol] 32.7 g/dL Normal 32-36 [facility] Comment on above: Performed By: #### L 100.0100 ####[facility] [address] [place], [address] MCV (RBC) [Entitic vol] 91.6 fL Normal 81-99 [facility] Comment on above: Performed By: #### L 100.0100 ####[facility] [address] [place], [address] Monocytes/100 WBC (Bld) 13.3 % High 0-10 [facility] Comment on above: Performed By: #### L 100.0100 ####[facility] [address] [place], [address] Neutrophils/100 WBC (Bld) 64.6 % Normal 47-70 [facility] Comment on above: Performed By: #### L 100.0100 ####[facility] [address] [place], [address] Nucleated RBC (Bld) [#/Vol] 0 10*3/uL Normal 0-5 [facility] Comment on above: Performed By: #### L 100.0100 ####[facility] [address] [place], [address] Platelet mean volume (Bld) [Entitic vol] 8.6 fL Normal 6.2-12.0 [facility] Comment on above: Performed By: #### L 100.0100 ####[facility] [address] [place], [address] Platelets (Bld) [#/Vol] 430 10*3/uL Normal 150-450 [facility] Comment on above: Performed By: #### L 100.0100 ####[facility] [address] [place], [address] RBC (Bld) [#/Vol] 2.97 10*6/uL Low 4.2-5.4 [facility] Comment on above: Performed By: #### L 100.0100 ####[facility] [address] [place], [address] RDW SD 51.4 fl High 35.1-43.9 [facility] Comment on above: Performed By: #### L 100.0100 ####[facility] [address] [place], [address] WBC (Bld) [#/Vol] 5.6 10*3/uL Normal 4.4-11.0 [facility] Comment on above: Performed By: #### L 100.0100 ####[facility] [address] [place], [address] Culture, Blood (WB)on 2023 CUB No growth in 5 days. Normal [facility] Comment on above: Performed By: #### M 200.1000 ####[facility] [address] [place], [address] Basic Metabolic Profile (BMP )on 08-03-2024 BUN/CRE 13.1 RATIO Normal 10-20 [facility] Comment on above: Performed By: #### L 500.2500 ####[facility] [address] [place], [address] CA,Total 7.8 mg/dL Low 8.5-10.1 [facility] Comment on above: Performed By: #### L 500.2500 ####[facility] [address] [place], [address] Chloride [Moles/Vol] 110 mmol/L High 98-107 [facility] Comment on above: Performed By: #### L 500.2500 ####[facility] [address] [place], [address] CO2 [Moles/Vol] 24.0 mmol/L Normal 21.0-32.0 [facility] Comment on above: Performed By: #### L 500.2500 ####[facility] [address] [place], [address] Creatinine [Mass/Vol] 0.46 mg/dL Low 0.55-1.02 [facility] Comment on above: Result Comment: The validity of the calculated GFR GFRAA in patients over70 years has not been determined. Clinical correlation isessential. Performed By: #### L 500.2500 ####[facility] [address] [place], [address] ECRCL 57.73 ml/min Normal [facility] Comment on above: Performed By: #### L 500.2500 ####[facility] [address] [place], [address] EST GFR - AA 173 mL/min Normal >60 [facility] Comment on above: Result Comment: Afri can Burmese GFR Calc Performed By: #### L 500.2500 ####[facility] [address] [place], [address] GAP 7 Normal 5-15 [facility] Comment on above: Performed By: #### L 500.2500 ####[facility] [address] [place], [address] GFR/1.73 sq M.predicted among non-blacks MDRD (S/P/Bld) [Vol rate/Area] 143 mL/min/{1.73_m2} Normal >60 [facility] Comment on above: Result Comment: Non- GFR Calc Performed By: #### L 500.2500 ####[facility] [address] [place], [address] Glucose [Mass/Vol] 110 mg/dL High 74-106 [facility] Comment on above: Result Comment: Fast ing Glucose result from 100 to 125 mg/dLsuggests IMPAIRED HOMEOSTASIS per A.D.A. criteria. Performed By: #### L 500.2500 ####[facility] [address] [place], [address] Potassium [Moles/Vol] 3.1 mmol/L Low 3.5-5.1 [facility] Comment on above: Performed By: #### L 500.2500 ####[facility] [address] [place], [address] Sodium [Moles/Vol] 141 mmol/L Normal 136-145 [facility] Comment on above: Performed By: #### L 500.2500 ####[facility] [address] [place], [address] Urea nitrogen [Mass/Vol] 6 mg/dL Low 7-18 [facility] Comment on above: Performed By: #### L 500.2500 ####[facility] [address] [place], [address] Bedside Glucoseon 08-03-2023 FINGERSTICK GLU 99 mg/dL Normal 74-106 [facility] Comment on above: Result Comment: RINA DUKES OF PATIENT CARE PER NURSING PROTOCOL Performed By: #### L 501.080 ####[facility] [address] [place], [address] CBC W/Diff, Automatedon 07-07 0 Absolute Lymph 1.12 X10 3/uL Normal 0.83-4.51 [facility] Comment on above: Performed By: #### L 100.0100 ####[facility] [address] [place], [address] Absolute Neut 3.8 X10 3/uL Normal 2.0-7.7 [facility] Comment on above: Performed By: #### L 100.0100 ####[facility] [address] [place], [address] Basophils/100 WBC (Bld) 0.7 % Normal 0-1 [facility] Comment on above: Performed By: #### L 100.0100 ####[facility] [address] [place], [address] Eosinophils/100 WBC (Bld) 2.4 % Normal 0-5 [facility] Comment on above: Performed By: #### L 100.0100 ####[facility] [address] [place], [address] Erythrocyte distribution width (RBC) [Ratio] 15.2 % High 11.6-14.6 [facility] Comment on above: Performed By: #### L 100.0100 ####[facility] [address] [place], [address] Hematocrit (Bld) [Volume fraction] 26.4 % Low 37-47 [facility] Comment on above: Performed By: #### L 100.0100 ####[facility] [address] [place], [address] Hemoglobin (Bld) [Mass/Vol] 8.8 g/dL Low 12.0-15.0 [facility] Comment on above: Performed By: #### L 100.0100 ####[facility] [address] [place], [address] IG% 0.500 Normal 0.0-0.9 [facility] Comment on above: Result Comment: IG% - Immature Granulocytes (promyelocytes, myelocytes andmetamyelocytes) > 1% indicates that a LEFT SHIFT is Present. Performed By: #### L 100.0100 ####[facility] [address] [place], [address] Lymphocytes/100 WBC (Bld) 19.5 % Normal 19-41 [facility] Comment on above: Performed By: #### L 100.0100 ####[facility] [address] [place], [address] MCH (RBC) [Entitic mass] 29.7 pg Normal 27.0-32.0 [facility] Comment on above: Performed By: #### L 100.0100 ####[facility] [address] [place], [address] MCHC (RBC) [Mass/Vol] 33.3 g/dL Normal 32-36 [facility] Comment on above: Performed By: #### L 100.0100 ####[facility] [address] [place], [address] MCV (RBC) [Entitic vol] 89.2 fL Normal 81-99 [facility] Comment on above: Performed By: #### L 100.0100 ####[facility] [address] [place], [address] Monocytes/100 WBC (Bld) 11.1 % High 0-10 [facility] Comment on above: Performed By: #### L 100.0100 ####[facility] [address] [place], [address] Neutrophils/100 WBC (Bld) 65.8 % Normal 47-70 [facility] Comment on above: Performed By: #### L 100.0100 ####[facility] [address] [place], [address] Nucleated RBC (Bld) [#/Vol] 0 10*3/uL Normal 0-5 [facility] Comment on above: Performed By: #### L 100.0100 ####[facility] [address] [place], [address] Platelet mean volume (Bld) [Entitic vol] 8.5 fL Normal 6.2-12.0 [facility] Comment on above: Performed By: #### L 100.0100 ####[facility] [address] [place], [address] Platelets (Bld) [#/Vol] 432 10*3/uL Normal 150-450 [facility] Comment on above: Performed By: #### L 100.0100 ####[facility] [address] [place], [address] RBC (Bld) [#/Vol] 2.96 10*6/uL Low 4.2-5.4 [facility] Comment on above: Performed By: #### L 100.0100 ####[facility] [address] [place], [address] RDW SD 49.0 fl High 35.1-43.9 [facility] Comment on above: Performed By: #### L 100.0100 ####[facility] [address] [place], [address] WBC (Bld) [#/Vol] 5.7 10*3/uL Normal 4.4-11.0 [facility] Comment on above: Performed By: #### L 100.0100 ####[facility] [address] [place], [address] Activated partial thrombopla stin time (aPTT) in platelet poor plasma by coagulation aOrdered By: Bienvenido Garcia on 08-02-2024 aPTT Coag (Bld) [Time] 33.1 s Normal 24.1-36.2 [facility] Comment on above: Performed By: #### L 300.4310, L300.3900 ####[facility] [address] [place], [address] Basic Metabolic Profile (BMP )on 08-02-2024 BUN/CRE 12.5 RATIO Normal 10-20 [facility] Comment on above: Performed By: #### L 500.2500 ####[facility] [address] [place], [address] CA,Total 7.6 mg/dL Low 8.5-10.1 [facility] Comment on above: Performed By: #### L 500.2500 ####[facility] [address] [place], [address] Chloride [Moles/Vol] 111 mmol/L High 98-107 [facility] Comment on above: Performed By: #### L 500.2500 ####[facility] [address] [place], [address] CO2 [Moles/Vol] 25.0 mmol/L Normal 21.0-32.0 [facility] Comment on above: Performed By: #### L 500.2500 ####[facility] [address] [place], [address] Creatinine [Mass/Vol] 0.64 mg/dL Normal 0.55-1.02 [facility] Comment on above: Result Comment: The validity of the calculated GFR GFRAA in patients over70 years has not been determined. Clinical correlation isessential. Performed By: #### L 500.2500 ####[facility] [address] [place], [address] ECRCL 57.73 ml/min Normal [facility] Comment on above: Performed By: #### L 500.2500 ####[facility] [address] [place], [address] EST GFR - AA 118 mL/min Normal >60 [facility] Comment on above: Result Comment: Afri can Burmese GFR Calc Performed By: #### L 500.2500 ####[facility] [address] [place], [address] GAP 6 Normal 5-15 [facility] Comment on above: Performed By: #### L 500.2500 ####[facility] [address] [place], [address] GFR/1.73 sq M.predicted among non-blacks MDRD (S/P/Bld) [Vol rate/Area] 97 mL/min/{1.73_m2} Normal >60 [facility] Comment on above: Result Comment: Non- GFR Calc Performed By: #### L 500.2500 ####[facility] [address] [place], [address] Glucose [Mass/Vol] 118 mg/dL High 74-106 [facility] Comment on above: Result Comment: Fast ing Glucose result from 100 to 125 mg/dLsuggests IMPAIRED HOMEOSTASIS per A.D.A. criteria. Performed By: #### L 500.2500 ####[facility] [address] [place], [address] Potassium [Moles/Vol] 2.9 mmol/L Low 3.5-5.1 [facility] Comment on above: Performed By: #### L 500.2500 ####[facility] [address] [place], [address] Sodium [Moles/Vol] 142 mmol/L Normal 136-145 [facility] Comment on above: Performed By: #### L 500.2500 ####[facility] [address] [place], [address] Urea nitrogen [Mass/Vol] 8 mg/dL Normal 7-18 [facility] Comment on above: Performed By: #### L 500.2500 ####[facility] [address] [place], [address] CBC W/Diff, Automatedon 11-2 -2023 Absolute Lymph 1.16 X10 3/uL Normal 0.83-4.51 [facility] Comment on above: Performed By: #### L 100.0100 ####[facility] [address] [place], [address] Absolute Neut 4.4 X10 3/uL Normal 2.0-7.7 [facility] Comment on above: Performed By: #### L 100.0100 ####[facility] [address] [place], [address] Basophils/100 WBC (Bld) 0.5 % Normal 0-1 [facility] Comment on above: Performed By: #### L 100.0100 ####[facility] [address] [place], [address] Eosinophils/100 WBC (Bld) 0.9 % Normal 0-5 [facility] Comment on above: Performed By: #### L 100.0100 ####[facility] [address] [place], [address] Erythrocyte distribution width (RBC) [Ratio] 15.3 % High 11.6-14.6 [facility] Comment on above: Performed By: #### L 100.0100 ####[facility] [address] [place], [address] Hematocrit (Bld) [Volume fraction] 26.0 % Low 37-47 [facility] Comment on above: Performed By: #### L 100.0100 ####[facility] [address] [place], [address] Hemoglobin (Bld) [Mass/Vol] 8.6 g/dL Low 12.0-15.0 [facility] Comment on above: Performed By: #### L 100.0100 ####[facility] [address] [place], [address] IG% 0.600 Normal 0.0-0.9 [facility] Comment on above: Result Comment: IG% - Immature Granulocytes (promyelocytes, myelocytes andmetamyelocytes) > 1% indicates that a LEFT SHIFT is Present. Performed By: #### L 100.0100 ####[facility] [address] [place], [address] Lymphocytes/100 WBC (Bld) 17.9 % Low 19-41 [facility] Comment on above: Performed By: #### L 100.0100 ####[facility] [address] [place], [address] MCH (RBC) [Entitic mass] 29.8 pg Normal 27.0-32.0 [facility] Comment on above: Performed By: #### L 100.0100 ####[facility] [address] [place], [address] MCHC (RBC) [Mass/Vol] 33.1 g/dL Normal 32-36 [facility] Comment on above: Performed By: #### L 100.0100 ####[facility] [address] [place], [address] MCV (RBC) [Entitic vol] 90.0 fL Normal 81-99 [facility] Comment on above: Performed By: #### L 100.0100 ####[facility] [address] [place], [address] Monocytes/100 WBC (Bld) 11.9 % High 0-10 [facility] Comment on above: Performed By: #### L 100.0100 ####[facility] [address] [place], [address] Neutrophils/100 WBC (Bld) 68.2 % Normal 47-70 [facility] Comment on above: Performed By: #### L 100.0100 ####[facility] [address] [place], [address] Nucleated RBC (Bld) [#/Vol] 0 10*3/uL Normal 0-5 [facility] Comment on above: Performed By: #### L 100.0100 ####[facility] [address] [place], [address] Platelet mean volume (Bld) [Entitic vol] 8.5 fL Normal 6.2-12.0 [facility] Comment on above: Performed By: #### L 100.0100 ####[facility] [address] [place], [address] Platelets (Bld) [#/Vol] 430 10*3/uL Normal 150-450 [facility] Comment on above: Performed By: #### L 100.0100 ####[facility] [address] [place], [address] RBC (Bld) [#/Vol] 2.89 10*6/uL Low 4.2-5.4 [place] [facility] Comment on above: Performed By: #### L 100.0100 ####[facility] [address] [place], [place], [id number] RDW SD 49.8 fl High 35.1-43.9 [facility] Comment on above: Performed By: #### L 100.0100 ####[facility] [address] [place], [address] WBC (Bld) [#/Vol] 6.5 10*3/uL Normal 4.4-11.0 [facility] Comment on above: Performed By: #### L 100.0100 ####[facility] [address] [place], [place], [id number] EGD Reporton 08-02-2024 EGD Report Normal [facility] Glucose [facility] deOrdered By: Mohini Willson on 08-02-2024 Bedside Glucose (Misc Panel) 99 mg/dL 74-106 [facility] Comment on above: MANAGEMENT OF PATIEN T CARE PER NURSING PROTOCOL H Pylori (initial)on 024 H Pylori (initial) Normal [facility] Comment on above: Performed By: #### P H.PYLORI ####[facility] [address] [place], [place], [id number] International normalized rat io (INR) calculationOrdered By: Bienvenido Garcia on 08-02-2024 INR Coag (Bld) [Relative time] 1.3 {INR} [facility] MR/POSTOP.ANEon 08-02-2024 MR/POSTOP.ANE Normal [facility] Magnesium measurementOrdered By: Mohini Willson on 08-02-2024 Magnesium [Mass/Vol] 2.1 mg/dL Normal 1.6-2.6 [facility] Comment on above: Performed By: #### L 501.5200 ####[facility] [address] [place], [place], [id number] Prothrombin Time w/INRon INR Coag (PPP) [Relative time] 1.3 {INR} Normal [facility] Comment on above: Performed By: #### L 300.4310, L300.3900 ####[facility] [address] [place], [address] Prothrombin timeOrdered By: Bienvenido Garcia on 08-02-2024 PT Coag (PPP) [Time] 16.0 s High 11.7-14.9 [facility] Comment on above: Performed By: #### L 300.4310, L300.3900 ####[facility] [address] [place], [address] Surgery Specimen Level Lenny 08-02-2024 Surgery Specimen Level IV Normal [facility] Comment on above: Performed By: #### P SUIV ####[facility] [address] [place], [address] Basic Metabolic Profile (BMP )on 08-01-2024 BUN/CRE 17.9 RATIO Normal 10-20 [facility] Comment on above: Performed By: #### L 500.2500 ####[facility] [address] [place], [address] CA,Total 7.6 mg/dL Low 8.5-10.1 [facility] Comment on above: Performed By: #### L 500.2500 ####[facility] [address] [place], [address] Chloride [Moles/Vol] 114 mmol/L High 98-107 [facility] Comment on above: Performed By: #### L 500.2500 ####[facility] [address] [place], [address] CO2 [Moles/Vol] 22.0 mmol/L Normal 21.0-32.0 [facility] Comment on above: Performed By: #### L 500.2500 ####[facility] [address] [place], [address] Creatinine [Mass/Vol] 0.50 mg/dL Low 0.55-1.02 [facility] Comment on above: Result Comment: The validity of the calculated GFR GFRAA in patients over70 years has not been determined. Clinical correlation isessential. Performed By: #### L 500.2500 ####[facility] [address] [place], [address] ECRCL 57.73 ml/min Normal [facility] Comment on above: Performed By: #### L 500.2500 ####[facility] [address] [place], [address] EST GFR - AA 156 mL/min Normal >60 [facility] Comment on above: Result Comment: Afri can Burmese GFR Calc Performed By: #### L 500.2500 ####[facility] [address] [place], [address] GAP 6 Normal 5-15 [facility] Comment on above: Performed By: #### L 500.2500 ####[facility] [address] [place], [address] GFR/1.73 sq M.predicted among non-blacks MDRD (S/P/Bld) [Vol rate/Area] 129 mL/min/{1.73_m2} Normal >60 [facility] Comment on above: Result Comment: Non- GFR Calc Performed By: #### L 500.2500 ####[facility] [address] [place], [address] Glucose [Mass/Vol] 102 mg/dL Normal 74-106 [facility] Comment on above: Result Comment: Fast ing Glucose result from 100 to 125 mg/dLsuggests IMPAIRED HOMEOSTASIS per A.D.A. criteria. Performed By: #### L 500.2500 ####[facility] [address] [place], [address] Potassium [Moles/Vol] 3.3 mmol/L Low 3.5-5.1 [facility] Comment on above: Performed By: #### L 500.2500 ####[facility] [address] [place], [address] Sodium [Moles/Vol] 142 mmol/L Normal 136-145 [facility] Comment on above: Performed By: #### L 500.2500 ####[facility] [address] [place], [address] Urea nitrogen [Mass/Vol] 9 mg/dL Normal 7-18 [facility] Comment on above: Performed By: #### L 500.2500 ####[facility] [address] [place], [address] CBC W/Diff, Automatedon 11-2 Absolute Lymph 0.96 X10 3/uL Normal 0.83-4.51 [facility] Comment on above: Performed By: #### L 100.0100 ####[facility] [address] [place], [address] Absolute Neut 5.4 X10 3/uL Normal 2.0-7.7 [facility] Comment on above: Performed By: #### L 100.0100 ####[facility] [address] [place], [address] Basophils/100 WBC (Bld) 0.4 % Normal 0-1 [facility] Comment on above: Performed By: #### L 100.0100 ####[facility] [address] [place], [address] Eosinophils/100 WBC (Bld) 0.3 % Normal 0-5 [facility] Comment on above: Performed By: #### L 100.0100 ####[facility] [address] [place], [address] Erythrocyte distribution width (RBC) [Ratio] 15.4 % High 11.6-14.6 [facility] Comment on above: Performed By: #### L 100.0100 ####[facility] [address] [place], [address] Hematocrit (Bld) [Volume fraction] 26.5 % Low 37-47 [facility] Comment on above: Performed By: #### L 100.0100 ####[facility] [address] [place], [address] Hemoglobin (Bld) [Mass/Vol] 8.8 g/dL Low 12.0-15.0 [facility] Comment on above: Performed By: #### L 100.0100 ####[facility] [address] [place], [address] IG% 1.000 High 0.0-0.9 [facility] Comment on above: Result Comment: IG% - Immature Granulocytes (promyelocytes, myelocytes andmetamyelocytes) > 1% indicates that a LEFT SHIFT is Present. Performed By: #### L 100.0100 ####[facility] [address] [place], [address] Lymphocytes/100 WBC (Bld) 13.3 % Low 19-41 [facility] Comment on above: Performed By: #### L 100.0100 ####[facility] [address] [place], [address] MCH (RBC) [Entitic mass] 29.9 pg Normal 27.0-32.0 [facility] Comment on above: Performed By: #### L 100.0100 ####[facility] [address] [place], [address] MCHC (RBC) [Mass/Vol] 33.2 g/dL Normal 32-36 [facility] Comment on above: Performed By: #### L 100.0100 ####[facility] [address] [place], [address] MCV (RBC) [Entitic vol] 90.1 fL Normal 81-99 [facility] Comment on above: Performed By: #### L 100.0100 ####[facility] [address] [place], [address] Monocytes/100 WBC (Bld) 9.8 % Normal 0-10 [facility] Comment on above: Performed By: #### L 100.0100 ####[facility] [address] [place], [address] Neutrophils/100 WBC (Bld) 75.2 % High 47-70 [facility] Comment on above: Performed By: #### L 100.0100 ####[facility] [address] [place], [address] Nucleated RBC (Bld) [#/Vol] 0.3 10*3/uL Normal 0-5 [facility] Comment on above: Performed By: #### L 100.0100 ####[facility] [address] [place], [address] Platelet mean volume (Bld) [Entitic vol] 8.7 fL Normal 6.2-12.0 [facility] Comment on above: Performed By: #### L 100.0100 ####[facility] [address] [place], [address] Platelets (Bld) [#/Vol] 408 10*3/uL Normal 150-450 [facility] Comment on above: Performed By: #### L 100.0100 ####[facility] [address] [place], [address] RBC (Bld) [#/Vol] 2.94 10*6/uL Low 4.2-5.4 [facility] Comment on above: Performed By: #### L 100.0100 ####[facility] [address] [place], [address] RDW SD 49.7 fl High 35.1-43.9 [facility] Comment on above: Performed By: #### L 100.0100 ####[facility] [address] [place], [address] WBC (Bld) [#/Vol] 7.2 10*3/uL Normal 4.4-11.0 [facility] Comment on above: Performed By: #### L 100.0100 ####[facility] [address] [place], [address] MR/CON.PCM.GIon 08-01-2024 MR/CON.PCM.GI Normal [facility] BRCon 07-31-2024 RC Normal [facility] Comment on above: Result Comment: [id number] AN RC TRANSFUSED 07/31/24 [id number] AN RC TRANSFUSED 07/31/24 1608 Performed By: #### B , [facility] ####[facility] [address] [place], [address] Basic Metabolic Profile (BMP )on 07-31-2024 BUN/CRE 26.6 RATIO High 10-20 [facility] Comment on above: Performed By: #### L 500.2500 ####[facility] [address] [place], [address] CA,Total 7.2 mg/dL Low 8.5-10.1 [facility] Comment on above: Performed By: #### L 500.2500 ####[facility] [address] [place], [address] Chloride [Moles/Vol] 113 mmol/L High 98-107 [facility] Comment on above: Performed By: #### L 500.2500 ####[facility] [address] [place], [address] CO2 [Moles/Vol] 22.0 mmol/L Normal 21.0-32.0 [facility] Comment on above: Performed By: #### L 500.2500 ####[facility] [address] [place], [address] Creatinine [Mass/Vol] 0.56 mg/dL Normal 0.55-1.02 [facility] Comment on above: Result Comment: The validity of the calculated GFR GFRAA in patients over70 years has not been determined. Clinical correlation isessential. Performed By: #### L 500.2500 ####[facility] [address] [place], [address] ECRCL 57.73 ml/min Normal [facility] Comment on above: Performed By: #### L 500.2500 ####[facility] [address] [place], [address] EST GFR - AA 136 mL/min Normal >60 [facility] Comment on above: Result Comment: Afri can Burmese GFR Calc Performed By: #### L 500.2500 ####[facility] [address] [place], [address] GAP 5 Normal 5-15 [facility] Comment on above: Performed By: #### L 500.2500 ####[facility] [address] [place], [address] GFR/1.73 sq M.predicted among non-blacks MDRD (S/P/Bld) [Vol rate/Area] 112 mL/min/{1.73_m2} Normal >60 [facility] Comment on above: Result Comment: Non- GFR Calc Performed By: #### L 500.2500 ####[facility] [address] [place], [address] Glucose [Mass/Vol] 104 mg/dL Normal 74-106 [facility] Comment on above: Result Comment: Fast ing Glucose result from 100 to 125 mg/dLsuggests IMPAIRED HOMEOSTASIS per A.D.A. criteria. Performed By: #### L 500.2500 ####[facility] [address] [place], [address] Potassium [Moles/Vol] 3.6 mmol/L Normal 3.5-5.1 [facility] Comment on above: Performed By: #### L 500.2500 ####[facility] [address] [place], [address] Sodium [Moles/Vol] 139 mmol/L Normal 136-145 [facility] Comment on above: Performed By: #### L 500.2500 ####[facility] [address] [place], [address] Urea nitrogen [Mass/Vol] 15 mg/dL Normal 7-18 [facility] Comment on above: Performed By: #### L 500.2500 ####[facility] [address] [place], [address] C. difficile DNA ARIANE+probe Q l (Unsp spec)Ordered By: Mohini Willson on 07-31-2024 Clostridioides difficile (PCR) [facility] CBC-Complete Blood Cnt No Di ffon 07-31-2024 Erythrocyte distribution width (RBC) [Ratio] 14.9 % High 11.6-14.6 [facility] Comment on above: Performed By: #### L 100.0500 ####[facility] [address] [place], [address] Hematocrit (Bld) [Volume fraction] 20.0 % Low 37-47 [facility] Comment on above: Performed By: #### L 100.0500 ####[facility] [address] [place], [address] Hemoglobin (Bld) [Mass/Vol] 6.4 g/dL Low 12.0-15.0 [facility] Comment on above: Performed By: #### L 100.0500 ####[facility] [address] [place], [address] MCH (RBC) [Entitic mass] 30.5 pg Normal 27.0-32.0 [facility] Comment on above: Performed By: #### L 100.0500 ####[facility] [address] [place], [address] MCHC (RBC) [Mass/Vol] 32.0 g/dL Normal 32-36 [facility] Comment on above: Performed By: #### L 100.0500 ####[facility] [address] [place], [address] MCV (RBC) [Entitic vol] 95.2 fL Normal 81-99 [facility] Comment on above: Performed By: #### L 100.0500 ####[facility] [address] [place], [address] Platelet mean volume (Bld) [Entitic vol] 8.8 fL Normal 6.2-12.0 [facility] Comment on above: Performed By: #### L 100.0500 ####[facility] [address] [place], [address] Platelets (Bld) [#/Vol] 367 10*3/uL Normal 150-450 [facility] Comment on above: Performed By: #### L 100.0500 ####[facility] [address] [place], [address] RBC (Bld) [#/Vol] 2.10 10*6/uL Low 4.2-5.4 [facility] Comment on above: Performed By: #### L 100.0500 ####[facility] [address] [place], [address] RDW SD 52.5 fl High 35.1-43.9 [facility] Comment on above: Performed By: #### L 100.0500 ####[facility] [address] [place], [address] WBC (Bld) [#/Vol] 8.8 10*3/uL Normal 4.4-11.0 [facility] Comment on above: Performed By: #### L 100.0500 ####[facility] [address] [place], [address] CDIFF (PCR)on 07-31-2024 CDIFF Is the patient receiving laxatives? Y New/unexplained onset of 3 or more stools in past 24 hrs? Y senna x1 yesterday Pending 027 027 NAP1-B1 Presumptive Negative *for epidemiolologic???use C. Diff PCR Negative- No toxigenic C. Diff Detected Normal [facility] Comment on above: Performed By: #### M 100.6796, M100.637 ####[facility] [address] [place], [address] ENTERIC PATHOGEN PANEL STOOL on 07-31-2024 EP PANEL Normal [facility] Comment on above: Performed By: #### M 100.6796, M100.637 ####[facility] [address] [place], [address] Ferritinon 07-31-2024 Ferritin [Mass/Vol] 115 ng/mL Normal [facility] Comment on above: Performed By: #### L 503.6030, L503.6550 ####[facility] [address] [place], [address] Ferritin measurementOrdered By: Mohini Willson on 07-31-2024 Ferritin [Mass/Vol] 115 ng/mL [facility] HIP, UNI W/ Pelvis 2-3 Views on 07-31-2024 HIP, UNI W/ Pelvis 2-3 Views Normal [facility] Iron (Unsp spec) [Mass/Mass] Ordered By: Mohini Willson on 07-31-2024 Iron [Mass/Vol] 9 ug/dL Low 50-170 [facility] Iron saturation [Mass fracti on]Ordered By: Mohini Willson on 07-31-2024 Iron Saturation 3.0 % Low 15.0-55.0 [facility] Iron+Iron Binding Capacityon 07-31-2024 Iron [Mass/Vol] 9 ug/dL Low 50-170 [facility] Comment on above: Performed By: #### L 503.6030, L503.6550 ####[facility] [address] [place], [address] IRON SATURATION 3.0 Low 15.0-55.0 [facility] Comment on above: Performed By: #### L 503.6030, L503.6550 ####[facility] [address] [place], [address] TIBC 305 ug/dL Normal 250-450 [facility] Comment on above: Performed By: #### L 503.6030, L503.6550 ####[facility] [address] [place], [address] Lower GI hemoglobin IA Ql (S tl)Ordered By: Mohini Willson on 07-31-2024 Stool Occult Blood (SINCERE) [facility] Stool Occult Blood iFOBon STOB Negative Normal [facility] Comment on above: Performed By: #### M 100.7900 ####[facility] [address] [place], [address] Stool enteric pathogen panel by probe and target amplification methodOrdered By: Mohini Willson on 07-31-2024 Enteric Bacteriology [facility] TIBCOrdered By: Mohini Willson o n 07-31-2024 Total Iron Binding Capacity 305 ug/dL 250-450 [facility] Type AND Screenon 07-31-2024 Ab SCREEN GEL Negative Normal [facility] Comment on above: Order Comment: CMV N EG? NNumber of units to transfuse: 2Reason for Ordering Blood: AcuteAre the blood/blood products to be transfused? YIs the patient having/had surgery? YPT NOT IN ROOM, FLOOR WILL CALL WHEN BACKWhen ReadyNY Performed By: #### B TS, BRC ####[facility] [address] [place], [address] 12 Lead EKGon 07-30-2024 12 Lead EKG Normal [facility] Arterial patency Wrist arter y --pre arterial punctureOrdered By: Mohiniharshad Willson on 07-30-2024 Bobby Test Positive [facility] Base excess Calc (BldV) [Mol es/Vol]Ordered By: Mohini Willson on 07-30-2024 Blood Gas Base Excess -3 mmol/L Low -2-2 [facility] Basic Metabolic Profile (BMP )on 07-30-2024 BUN/CRE 17.3 RATIO Normal 10-20 [facility] Comment on above: Performed By: #### L 500.2500 ####[facility] [address] [place], [address] CA,Total 7.6 mg/dL Low 8.5-10.1 [facility] Comment on above: Performed By: #### L 500.2500 ####[facility] [address] [place], [address] Chloride [Moles/Vol] 109 mmol/L High 98-107 [facility] Comment on above: Performed By: #### L 500.2500 ####[facility] [address] [place], [address] CO2 [Moles/Vol] 20.0 mmol/L Low 21.0-32.0 [facility] Comment on above: Performed By: #### L 500.2500 ####[facility] [address] [place], [address] Creatinine [Mass/Vol] 1.27 mg/dL High 0.55-1.02 [facility] Comment on above: Result Comment: The validity of the calculated GFR GFRAA in patients over70 years has not been determined. Clinical correlation isessential. Performed By: #### L 500.2500 ####[facility] [address] [place], [address] ECRCL 36.36 ml/min Normal [facility] Comment on above: Performed By: #### L 500.2500 ####[facility] [address] [place], [address] EST GFR - AA 53 mL/min Low >60 [facility] Comment on above: Result Comment: Afri can Burmese GFR Calc Performed By: #### L 500.2500 ####[facility] [address] [place], [address] GAP 7 Normal 5-15 [facility] Comment on above: Performed By: #### L 500.2500 ####[facility] [address] [place], [address] GFR/1.73 sq M.predicted among non-blacks MDRD (S/P/Bld) [Vol rate/Area] 44 mL/min/{1.73_m2} Low >60 [facility] Comment on above: Result Comment: Non- GFR Calc Performed By: #### L 500.2500 ####[facility] [address] [place], [address] Glucose [Mass/Vol] 107 mg/dL High 74-106 [facility] Comment on above: Result Comment: Fast ing Glucose result from 100 to 125 mg/dLsuggests IMPAIRED HOMEOSTASIS per A.D.A. criteria. Performed By: #### L 500.2500 ####[facility] [address] [place], [address] Potassium [Moles/Vol] 4.1 mmol/L Normal 3.5-5.1 [facility] Comment on above: Performed By: #### L 500.2500 ####[facility] [address] [place], [address] Sodium [Moles/Vol] 135 mmol/L Low 136-145 [facility] Comment on above: Performed By: #### L 500.2500 ####[facility] [address] [place], [address] Urea nitrogen [Mass/Vol] 22 mg/dL High 7-18 [facility] Comment on above: Performed By: #### L 500.2500 ####[facility] [address] [place], [address] Bedside Glucoseon 07-30-2024 FINGERSTICK GLU 128 mg/dL High 74-106 [facility] Comment on above: Result Comment: RINA DUKES OF PATIENT CARE PER NURSING PROTOCOL Performed By: #### L 501.080 ####[facility] [address] [place], [address] Bilirubin Test strip Ql (U)O rdered By: Mohini Willson on 07-30-2024 Bilirubin Ql (U) Negative Negative [facility] Positive Normal [facility] Comment on above: Performed By: #### L 9000.0800 ####[facility] [address] [place], [address] Base excess Calc (Bld) [Moles/Vol] -3 mmol/L Low -2 to +2 [facility] Comment on above: Performed By: #### L 9000.0800 ####[facility] [address] [place], [address] Blood Gas Type ART Normal [facility] Comment on above: Performed By: #### L 9000.0800 ####[facility] [address] [place], [address] CO2 [Moles/Vol] 21 mmol/L Normal [facility] Comment on above: Performed By: #### L 9000.0800 ####[facility] [address] [place], [address] HCO3 (Bld) [Moles/Vol] 20.1 mmol/L Low 22-26 [facility] Comment on above: Performed By: #### L 9000.0800 ####[facility] [address] [place], [address] Mode Not entered Normal [facility] Comment on above: Performed By: #### L 9000.0800 ####[facility] [address] [place], [address] O2 Delivery Dev Room Air Normal [facility] Comment on above: Performed By: #### L 9000.0800 ####[facility] [address] [place], [address] pCO2 25.0 mmHg Low 35-45 [facility] Comment on above: Performed By: #### L 9000.0800 ####[facility] [address] [place], [address] pH (Bld) 7.51 [pH] High 7.35-7.45 [facility] Comment on above: Performed By: #### L 9000.0800 ####[facility] [address] [place], [address] PO2 96 mmHG Normal 75-100 [facility] Comment on above: Performed By: #### L 9000.0800 ####[facility] [facility] [address] [place], [address] SITE L Radial Normal [facility] Comment on above: Performed By: #### L 0.0800 ####[facility] [address] [place], [address] SO2 98 Normal 95-99 [facility] Comment on above: Performed By: #### L 9000.0800 ####[facility] [address] [place], [address] Blood bicarbonate measuremen tOrdered By: Mohini Willson on 07-30-2024 Blood Gas Bicarbonate Actual 20.1 mmol/L Low - [facility] Blood cultureOrdered By: Marina Willson on 07-30-2024 Bacteria identified Cx Nom (Bld) No growth in 5 days. [facility] Brain/Head without Contrasto n 07-30-2024 Brain/Head without Contrast Normal [facility] CBC-Complete Blood Cnt No Di ffon 07-30-2024 Erythrocyte distribution width (RBC) [Ratio] 15.1 % High 11.6-14.6 [facility] Comment on above: Performed By: #### L 100.0500 ####[facility] [address] [place], [address] Hematocrit (Bld) [Volume fraction] 24.2 % Low 37-47 [facility] Comment on above: Performed By: #### L 100.0500 ####[facility] [address] [place], [address] Hemoglobin (Bld) [Mass/Vol] 7.4 g/dL Low 12.0-15.0 [facility] Comment on above: Performed By: #### L 100.0500 ####[facility] [address] [place], [address] MCH (RBC) [Entitic mass] 30.1 pg Normal 27.0-32.0 [facility] Comment on above: Performed By: #### L 100.0500 ####[facility] [address] [place], [address] MCHC (RBC) [Mass/Vol] 30.6 g/dL Low 32-36 [facility] Comment on above: Performed By: #### L 100.0500 ####[facility] [address] [place], [address] MCV (RBC) [Entitic vol] 98.4 fL Normal 81-99 [facility] Comment on above: Performed By: #### L 100.0500 ####[facility] [address] [place], [address] Platelet mean volume (Bld) [Entitic vol] 9.0 fL Normal 6.2-12.0 [facility] Comment on above: Performed By: #### L 100.0500 ####[facility] [address] [place], [address] Platelets (Bld) [#/Vol] 353 10*3/uL Normal 150-450 [facility] Comment on above: Performed By: #### L 100.0500 ####[facility] [address] [place], [address] RBC (Bld) [#/Vol] 2.46 10*6/uL Low 4.2-5.4 [facility] Comment on above: Performed By: #### L 100.0500 ####[facility] [address] [place], [address] RDW SD 54.1 fl High 35.1-43.9 [facility] Comment on above: Performed By: #### L 100.0500 ####[facility] [address] [place], [address] WBC (Bld) [#/Vol] 16.8 10*3/uL High 4.4-11.0 [facility] Comment on above: Performed By: #### L 100.0500 ####[facility] [address] [place], [address] Chest 1 View (Portable)on Chest 1 View (Portable) Normal [facility] Epithelial cells.squamous LM Ql (Urine sed)Ordered By: Mohini Willson on 07-30-2024 Epithelial cells.squamous LM.HPF (Urine sed) [#/Area] 0 /[HPF] 5-10 [facility] Glucose Ql (U)Ordered By: Judy Willson on 07-30-2024 Urine Glucose (UA) Normal mg/dl Normal [facility] Ketones Test strip Ql (U)Ord ered By: Mohini Willson on 07-30-2024 Ketones Ql (U) Negative Negative [facility] Methadone, urineOrdered By: Mohini Willson on 07-30-2024 Urine Methadone Screen Negative < 300 ng/mL [facility] Microscopic analysis of urin e for red blood cells (RBC)Ordered By: Mohini Willson on 07-30-2024 Urine RBC 0 SEEN /hpf 0-5 [facility] Mucus LM Ql (Urine sed)Order ed By: Mohini Willson on 07-30-2024 Mucus Ql (Urine sed) 0 SEEN /hpf [facility] Nitrite Test strip Ql (U)Ord ered By: Mohini Willson on 07-30-2024 Nitrite Ql (U) Negative Negative [facility] No Panel InformationOrdered By: Mohini Willson on 07-30-2024 Urine Drug Screen Comment [facility] Comment on above: CONFIRMATORY TESTING FOR ALL [...] [facility] Blood Gas Sample Site L Radial [facility] Blood Gas Specimen Type ART [facility] Blood Gas Vent Mode Not entered [facility] Oxygen Delivery Device Room Air [facility] Oxygen saturation measuremen tOrdered By: Mohini Willson on 07-30-2024 Blood Gas Oxygen Saturation 98 % 95-99 [facility] Partial pressure of carbon d ioxide measurementOrdered By: Mohini Willson on 07-30-2024 Arterial Blood Partial Pressure CO2 25.0 mmHg Low 35-45 [facility] Partial pressure of oxygen m easurementOrdered By: Mohini Willson on 07-30-2024 Arterial Blood Partial Pressure O2 96 mmHG 75-100 [facility] Protein Test strip Ql (U)Ord ered By: Mohini Willson on 07-30-2024 Protein Ql (U) 15 mg/dl High Negative [facility] Quantitative urine opiates m easurementOrdered By: Mohini Willson on 07-30-2024 Opiates Ql (U) Positive High < 300 ng/mL [facility] Total carbon dioxide measure mentOrdered By: Mohini Willson on 07-30-2024 Blood Gas Total CO2 21 mmol/L [facility] Urinalysis, Completeon 07-30 WBC 0-5 SEEN Normal 0-5 [facility] Comment on above: Order Comment: LAURA TER SPECIMEN Performed By: #### L 400.0001 ####[facility] [address] [place], [address] BACTERIA 0 SEEN Normal None Seen [facility] Comment on above: Order Comment: LARUA TER SPECIMEN Performed By: #### L 400.0001 ####[facility] [address] [place], [address] EPI,SQUAMOUS 0 SEEN Normal 5-10 [facility] Comment on above: Order Comment: LAURA TER SPECIMEN Performed By: #### L 400.0001 ####[facility] [address] [place], [address] Mucus Ql (Urine sed) 0 SEEN Normal [facility] Comment on above: Order Comment: LAURA TER SPECIMEN Performed By: #### L 400.0001 ####[facility] [address] [place], [address] RBC 0 SEEN Normal 0-5 [facility] Comment on above: Order Comment: LAURA TER SPECIMEN Performed By: #### L 400.0001 ####[facility] [address] [place], [address] Urine Drug Screen (VISTA)on 07-30-2024 AMPHETAMINES Negative Normal <1000 ng/mL [facility] Comment on above: Performed By: #### L 505.5000 ####[facility] [address] [place], [address] BARBITIURATES Negative Normal < 200 ng/mL [facility] Comment on above: Performed By: #### L 505.5000 ####[facility] [address] [place], [address] BENZODIAZIPINE Positive Abnormal < 200 ng/mL [facility] Comment on above: Performed By: #### L 505.5000 ####[facility] [address] [place], [address] COCAINE Negative Normal < 300 ng/mL [facility] Comment on above: Performed By: #### L 505.5000 ####[facility] [address] [place], [address] ECSTACY Negative Normal < 500 ng/mL [facility] Comment on above: Performed By: #### L 505.5000 ####[facility] [address] [place], [address] METHADONE Negative Normal < 300 ng/mL [facility] Comment on above: Performed By: #### L 505.5000 ####[facility] [address] [place], [address] OPIATES Positive Abnormal < 300 ng/mL [facility] Comment on above: Performed By: #### L 505.5000 ####[facility] [address] [place], [address] PCP Negative Normal < 25 ng/mL [facility] Comment on above: Performed By: #### L 505.5000 ####[facility] [address] [place], [address] THC Positive Abnormal < 50 ng/mL [facility] Comment on above: Performed By: #### L 505.5000 ####[facility] [address] [place], [address] VISTA UDS PH 6 Normal [facility] Comment on above: Performed By: #### L 505.5000 ####[facility] [address] [place], [address] Urine amphetamine measuremen tOrdered By: Mohini Willson on 07-30-2024 Amphetamines Ql (U) Negative <1000 ng/mL [facility] Urine barbiturates measureme ntOrdered By: Mohini Willson on 07-30-2024 Urine Barbiturates Screen Negative < 200 ng/mL [facility] Urine benzodiazepine levelOr dered By: Mohini Willson on 07-30-2024 Benzodiazepines Ql (U) Positive High < 200 ng/mL [facility] Urine blood detectionOrdered By: Mohini Willson on 07-30-2024 Urine Occult Blood Negative Negative [facility] Urine clarityOrdered By: Marina Willson on 07-30-2024 Clarity (U) Clear Clear [facility] Urine cocaine levelOrdered B y: Mohini Willson on 07-30-2024 Cocaine Ql (U) Negative < 300 ng/mL [facility] Urine color determinationOrd ered By: Mohini Willson on 07-30-2024 Color (U) Yellow Yellow [facility] Urine bdyaf-0-tjmpjutvzrtbxr abinol (THC) measurementOrdered By: Mohini Willson on 07-30-2024 Cannabinoids Screen Ql (U) Positive High < 50 ng/mL [facility] Urine leukocyte esterase det ection by dipstickOrdered By: Mohini Willson on 07-30-2024 Leukocyte esterase Test strip Ql (U) Negative Negative [facility] Urine methylenedioxymethamph etamine (MDMA) measurementOrdered By: Mohini Willson on 07-30-2024 MDMA (Ecstasy) Screen Negative < 500 ng/mL [facility] Urine pHOrdered By: Mohini Candelaria am on 07-30-2024 pH (U) 6.5 [pH] 5.0 - 8.0 [facility] Urine phencyclidine (PCP) de tectionOrdered By: Mohini Willson on 07-30-2024 Phencyclidine Ql (U) Negative < 25 ng/mL [facility] Urine sediment bacteria coun t by microscopy (number/high power field)Ordered By: Mohini Willson on 07-30-2024 Bacteria LM.HPF (Urine sed) [#/Area] 0 /[HPF] None Seen [facility] Urine specific gravity measu rementOrdered By: Mohini Willson on 07-30-2024 Specific gravity (U) [Rel density] 1.010 1.002-1.03 0 [facility] Urobilinogen Ql (U)Ordered B y: Mohini Willson on 07-30-2024 Urine Urobilinogen Normal mg/dl Normal [facility] White blood cell countOrdere d By: Mohini Willson on 07-30-2024 Urine WBC 0-5 SEEN /hpf 0-5 [facility] pH (Unsp spec)Ordered By: Na na Demetris on 07-30-2024 Blood Gas pH 7.51 High 7.35-7.45 [facility] Basic Metabolic Profile (BMP )on 07-29-2024 BUN/CRE 13.8 RATIO Normal 10-20 [facility] Comment on above: Performed By: #### L 100.0100, L500.2500 ####[facility] [address] [facility] [address] CA,Total 7.2 mg/dL Low 8.5-10.1 [facility] Comment on above: Performed By: #### L 100.0100, L500.2500 ####[facility] [address] [place], [address] Chloride [Moles/Vol] 109 mmol/L High 98-107 [facility] Comment on above: Performed By: #### L 100.0100, L500.2500 ####[facility] [address] [facility] [address] CO2 [Moles/Vol] 22.0 mmol/L Normal 21.0-32.0 [facility] Comment on above: Performed By: #### L 100.0100, L500.2500 ####[facility] [address] [facility] [address] Creatinine [Mass/Vol] 0.94 mg/dL Normal 0.55-1.02 [facility] Comment on above: Result Comment: The validity of the calculated GFR GFRAA in patients over70 years has not been determined. Clinical correlation isessential. Performed By: #### L 100.0100, L500.2500 ####[facility] [address] [place], [address] ECRCL 49.13 ml/min Normal [facility] Comment on above: Performed By: #### L 100.0100, L500.2500 ####[facility] [address] [place], [address] EST GFR - AA 75 mL/min Normal >60 [facility] Comment on above: Result Comment: Afri can Burmese GFR Calc Performed By: #### L 100.0100, L500.2500 ####[facility] [address] [place], [address] GAP 6 Normal 5-15 [facility] Comment on above: Performed By: #### L 100.0100, L500.2500 ####[facility] [address] [place], [address] GFR/1.73 sq M.predicted among non-blacks MDRD (S/P/Bld) [Vol rate/Area] 62 mL/min/{1.73_m2} Normal >60 [facility] Comment on above: Result Comment: Non- GFR Calc Performed By: #### L 100.0100, L500.2500 ####[facility] [address] [place], [address] Glucose [Mass/Vol] 118 mg/dL High 74-106 [facility] Comment on above: Result Comment: Fast ing Glucose result from 100 to 125 mg/dLsuggests IMPAIRED HOMEOSTASIS per A.D.A. criteria. Performed By: #### L 100.0100, L500.2500 ####[facility] [address] [place], [address] Potassium [Moles/Vol] 4.1 mmol/L Normal 3.5-5.1 [facility] Comment on above: Performed By: #### L 100.0100, L500.2500 ####[facility] [address] [place], [address] Sodium [Moles/Vol] 137 mmol/L Normal 136-145 [facility] Comment on above: Performed By: #### L 100.0100, L500.2500 ####[facility] [address] [place], [address] Urea nitrogen [Mass/Vol] 13 mg/dL Normal 7-18 [facility] Comment on above: Performed By: #### L 100.0100, L500.2500 ####[facility] [address] [place], [address] CBC W/Diff, Automatedon 11-2 MACROCYTOSIS 1+ Normal [facility] Comment on above: Performed By: #### L 100.0100, L500.2500 ####[facility] [address] [place], [address] OVALOCYTE 1+ Normal [facility] Comment on above: Performed By: #### L 100.0100, L500.2500 ####[facility] [address] [place], [address] TARGET CELLS RARE Normal [facility] Comment on above: Performed By: #### L 100.0100, L500.2500 ####[facility] [address] [place], [address] Anisocytosis Ql (Bld) 2+ Normal [facility] Comment on above: Performed By: #### L 100.0100, L500.2500 ####[facility] [address] [place], [address] PLT EST SLT INC Normal ADEQ [facility] Comment on above: Performed By: #### L 100.0100, L500.2500 ####[facility] [address] [place], [address] SMEAR COMMENT SCANNED Normal [facility] Comment on above: Performed By: #### L 100.0100, L500.2500 ####[facility] [address] [place], [address] Laboratory - Hematology and Cell countsOrdered By: Lance Gresham on 07-29-2024 Anisocytosis Ql (Bld) 2+ [facility] Macrocytes Ql (Bld)Ordered B y: Lance Gresham on 07-29-2024 Macrocytosis 1+ [facility] Manual differential comment Armando (Bld) [Interp]Ordered By: Lance Gresham on 07-29-2024 Differential Comment SCANNED [facility] Ovalocytes LM Ql (Bld)Ordere d By: Lance Gresham on 07-29-2024 Ovalocytes 1+ [facility] Platelets LM Ql (Bld)Ordered By: Lance Gresham on 07-29-2024 Platelet Estimate SLT INC ADEQ [facility] Target cells LM Ql (Bld)Orde red By: Lance Gresham on 07-29-2024 Target Cells RARE [facility] Basic Metabolic Profile (BMP )on 07-28-2024 BUN/CRE 12.4 RATIO Normal 10-20 [facility] Comment on above: Performed By: #### L 500.2500, L100.0100 ####[facility] [address] [place], [address] CA,Total 8.1 mg/dL Low 8.5-10.1 [facility] Comment on above: Performed By: #### L 500.2500, L100.0100 ####[facility] [address] [place], [address] Chloride [Moles/Vol] 108 mmol/L High 98-107 [facility] Comment on above: Performed By: #### L 500.2500, L100.0100 ####[facility] [address] [place], [address] CO2 [Moles/Vol] 27.0 mmol/L Normal 21.0-32.0 [facility] Comment on above: Performed By: #### L 500.2500, L100.0100 ####[facility] [address] [place], [address] Creatinine [Mass/Vol] 0.65 mg/dL Normal 0.55-1.02 [facility] Comment on above: Result Comment: The validity of the calculated GFR GFRAA in patients over70 years has not been determined. Clinical correlation isessential. Performed By: #### L 500.2500, L100.0100 ####[facility] [address] [place], [address] ECRCL 57.73 ml/min Normal [facility] Comment on above: Performed By: #### L 500.2500, L100.0100 ####[facility] [address] [place], [address] EST GFR - AA 116 mL/min Normal >60 [facility] Comment on above: Result Comment: Afri can Burmese GFR Calc Performed By: #### L 500.2500, L100.0100 ####[facility] [address] [place], [address] GAP 6 Normal 5-15 [facility] Comment on above: Performed By: #### L 500.2500, L100.0100 ####[facility] [address] [place], [address] GFR/1.73 sq M.predicted among non-blacks MDRD (S/P/Bld) [Vol rate/Area] 96 mL/min/{1.73_m2} Normal >60 [facility] Comment on above: Result Comment: Non- GFR Calc Performed By: #### L 500.2500, L100.0100 ####[facility] [address] [place], [address] Glucose [Mass/Vol] 113 mg/dL High 74-106 [facility] Comment on above: Result Comment: Fast ing Glucose result from 100 to 125 mg/dLsuggests IMPAIRED HOMEOSTASIS per A.D.A. criteria. Performed By: #### L 500.2500, L100.0100 ####[facility] [address] [place], [address] Potassium [Moles/Vol] 3.5 mmol/L Normal 3.5-5.1 [facility] Comment on above: Performed By: #### L 500.2500, L100.0100 ####[facility] [address] [place], [address] Sodium [Moles/Vol] 140 mmol/L Normal 136-145 [facility] Comment on above: Performed By: #### L 500.2500, L100.0100 ####[facility] [address] [place], [address] Urea nitrogen [Mass/Vol] 8 mg/dL Normal 7-18 [facility] Comment on above: Performed By: #### L 500.2500, L100.0100 ####[facility] [address] [place], [address] CBC W/Diff, Automatedon 11-2 -2023 Absolute Lymph 1.45 X10 3/uL Normal 0.83-4.51 [facility] Comment on above: Performed By: #### L 500.2500, L100.0100 ####[facility] [address] [place], [address] Absolute Neut 5.1 X10 3/uL Normal 2.0-7.7 [facility] Comment on above: Performed By: #### L 500.2500, L100.0100 ####[facility] [address] [place], [address] Basophils/100 WBC (Bld) 0.4 % Normal 0-1 [facility] Comment on above: Performed By: #### L 500.2500, L100.0100 ####[facility] [address] [place], [address] Eosinophils/100 WBC (Bld) 0.4 % Normal 0-5 [facility] Comment on above: Performed By: #### L 500.2500, L100.0100 ####[facility] [address] [place], [address] Erythrocyte distribution width (RBC) [Ratio] 14.7 % High 11.6-14.6 [facility] Comment on above: Performed By: #### L 500.2500, L100.0100 ####[facility] [address] [place], [address] Hematocrit (Bld) [Volume fraction] 26.5 % Low 37-47 [facility] Comment on above: Performed By: #### L 500.2500, L100.0100 ####[facility] [address] [place], [address] Hemoglobin (Bld) [Mass/Vol] 8.6 g/dL Low 12.0-15.0 [facility] Comment on above: Performed By: #### L 500.2500, L100.0100 ####[facility] [address] [place], [address] IG% 0.300 Normal 0.0-0.9 [facility] Comment on above: Result Comment: IG% - Immature Granulocytes (promyelocytes, myelocytes andmetamyelocytes) > 1% indicates that a LEFT SHIFT is Present. Performed By: #### L 500.2500, L100.0100 ####[facility] [address] [place], [address] Lymphocytes/100 WBC (Bld) 19.7 % Normal 19-41 [facility] Comment on above: Performed By: #### L 500.2500, L100.0100 ####[facility] [address] [place], [address] MCH (RBC) [Entitic mass] 30.4 pg Normal 27.0-32.0 [facility] Comment on above: Performed By: #### L 500.2500, L100.0100 ####[facility] [address] [place], [address] MCHC (RBC) [Mass/Vol] 32.5 g/dL Normal 32-36 [facility] Comment on above: Performed By: #### L 500.2500, L100.0100 ####[facility] [address] [place], [address] MCV (RBC) [Entitic vol] 93.6 fL Normal 81-99 [facility] Comment on above: Performed By: #### L 500.2500, L100.0100 ####[facility] [address] [place], [address] Monocytes/100 WBC (Bld) 9.8 % Normal 0-10 [facility] Comment on above: Performed By: #### L 500.2500, L100.0100 ####[facility] [address] [place], [address] Neutrophils/100 WBC (Bld) 69.4 % Normal 47-70 [facility] Comment on above: Performed By: #### L 500.2500, L100.0100 ####[facility] [address] [place], [address] Nucleated RBC (Bld) [#/Vol] 0 10*3/uL Normal 0-5 [facility] Comment on above: Performed By: #### L 500.2500, L100.0100 ####[facility] [address] [place], [address] Platelet mean volume (Bld) [Entitic vol] 8.6 fL Normal 6.2-12.0 [facility] Comment on above: Performed By: #### L 500.2500, L100.0100 ####[facility] [address] [place], [address] Platelets (Bld) [#/Vol] 382 10*3/uL Normal 150-450 [facility] Comment on above: Performed By: #### L 500.2500, L100.0100 ####[facility] [address] [place], [address] RBC (Bld) [#/Vol] 2.83 10*6/uL Low 4.2-5.4 [facility] Comment on above: Performed By: #### L 500.2500, L100.0100 ####[facility] [address] [place], [address] RDW SD 49.9 fl High 35.1-43.9 [facility] Comment on above: Performed By: #### L 500.2500, L100.0100 ####[facility] [address] [place], [address] WBC (Bld) [#/Vol] 7.4 10*3/uL Normal 4.4-11.0 [facility] Comment on above: Performed By: #### L 500.2500, L100.0100 ####[facility] [address] [place], [address] Hip Min 2 Views (Portable)on 07-28-2024 Hip Min 2 Views (Portable) Normal [facility] MR/POSTOP.ANEon 07-28-2024 MR/POSTOP.ANE Normal [facility] MR/[id number] 07-28-2024 MR/POSTOPAN2 Normal [facility] Operative Reporton Operative Report Normal [facility] Type AND Screenon 07-28-2024 ABO and Rh group Nom (Bld) Blood group A Rh(D) positive Normal [facility] Comment on above: Order Comment: S Performed By: #### B TS ####[facility] [address] [place], [address] Basic Metabolic Profile (BMP )on 07-27-2024 BUN/CRE 18.0 RATIO Normal 10-20 [facility] Comment on above: Performed By: #### L 100.0100, L500.2500 ####[facility] [address] [place], [address] CA,Total 8.0 mg/dL Low 8.5-10.1 [facility] Comment on above: Performed By: #### L 100.0100, L500.2500 ####[facility] [address] [place], [address] Chloride [Moles/Vol] 107 mmol/L Normal 98-107 [facility] Comment on above: Performed By: #### L 100.0100, L500.2500 ####[facility] [address] [place], [address] CO2 [Moles/Vol] 25.0 mmol/L Normal 21.0-32.0 [facility] Comment on above: Performed By: #### L 100.0100, L500.2500 ####[facility] [address] [place], [address] Creatinine [Mass/Vol] 0.56 mg/dL Normal 0.55-1.02 [facility] Comment on above: Result Comment: The validity of the calculated GFR GFRAA in patients over70 years has not been determined. Clinical correlation isessential. Performed By: #### L 100.0100, L500.2500 ####[facility] [address] [place], [address] ECRCL 57.73 ml/min Normal [facility] Comment on above: Performed By: #### L 100.0100, L500.2500 ####[facility] [address] [place], [address] EST GFR - AA 139 mL/min Normal >60 [facility] Comment on above: Result Comment: Afri can Burmese GFR Calc Performed By: #### L 100.0100, L500.2500 ####[facility] [address] [place], [address] GAP 6 Normal 5-15 [facility] Comment on above: Performed By: #### L 100.0100, L500.2500 ####[facility] [address] [place], [address] GFR/1.73 sq M.predicted among non-blacks MDRD (S/P/Bld) [Vol rate/Area] 115 mL/min/{1.73_m2} Normal >60 [facility] Comment on above: Result Comment: Non- GFR Calc Performed By: #### L 100.0100, L500.2500 ####[facility] [address] [place], [address] Glucose [Mass/Vol] 110 mg/dL High 74-106 [facility] Comment on above: Result Comment: Fast ing Glucose result from 100 to 125 mg/dLsuggests IMPAIRED HOMEOSTASIS per A.D.A. criteria. Performed By: #### L 100.0100, L500.2500 ####[facility] [address] [place], [address] Potassium [Moles/Vol] 3.6 mmol/L Normal 3.5-5.1 [facility] Comment on above: Performed By: #### L 100.0100, L500.2500 ####[facility] [address] [place], [address] Sodium [Moles/Vol] 138 mmol/L Normal 136-145 [facility] Comment on above: Performed By: #### L 100.0100, L500.2500 ####[facility] [address] [place], [address] Urea nitrogen [Mass/Vol] 10 mg/dL Normal 7-18 [facility] Comment on above: Performed By: #### L 100.0100, L500.2500 ####[facility] [address] [place], [address] CBC W/Diff, Automatedon 11-2 3-2023 Absolute Lymph 1.22 X10 3/uL Normal 0.83-4.51 [facility] Comment on above: Performed By: #### L 100.0100, L500.2500 ####[facility] [address] [place], [address] Absolute Neut 5.8 X10 3/uL Normal 2.0-7.7 [facility] Comment on above: Performed By: #### L 100.0100, L500.2500 ####[facility] [address] [place], [address] Basophils/100 WBC (Bld) 0.6 % Normal 0-1 [facility] Comment on above: Performed By: #### L 100.0100, L500.2500 ####[facility] [address] [place], [address] Eosinophils/100 WBC (Bld) 0.5 % Normal 0-5 [facility] Comment on above: Performed By: #### L 100.0100, L500.2500 ####[facility] [address] [place], [address] Erythrocyte distribution width (RBC) [Ratio] 14.7 % High 11.6-14.6 [facility] Comment on above: Performed By: #### L 100.0100, L500.2500 ####[facility] [address] [place], [address] Hematocrit (Bld) [Volume fraction] 26.8 % Low 37-47 [facility] Comment on above: Performed By: #### L 100.0100, L500.2500 ####[facility] [address] [place], [address] Hemoglobin (Bld) [Mass/Vol] 8.7 g/dL Low 12.0-15.0 [facility] Comment on above: Performed By: #### L 100.0100, L500.2500 ####[facility] [address] [place], [address] IG% 0.500 Normal 0.0-0.9 [facility] Comment on above: Result Comment: IG% - Immature Granulocytes (promyelocytes, myelocytes andmetamyelocytes) > 1% indicates that a LEFT SHIFT is Present. Performed By: #### L 100.0100, L500.2500 ####[facility] [address] [place], [address] Lymphocytes/100 WBC (Bld) 15.6 % Low 19-41 [facility] Comment on above: Performed By: #### L 100.0100, L500.2500 ####[facility] [address] [place], [address] MCH (RBC) [Entitic mass] 30.5 pg Normal 27.0-32.0 [facility] Comment on above: Performed By: #### L 100.0100, L500.2500 ####[facility] [address] [place], [address] MCHC (RBC) [Mass/Vol] 32.5 g/dL Normal 32-36 [facility] Comment on above: Performed By: #### L 100.0100, L500.2500 ####[facility] [address] [place], [address] MCV (RBC) [Entitic vol] 94.0 fL Normal 81-99 [facility] Comment on above: Performed By: #### L 100.0100, L500.2500 ####[facility] [address] [place], [address] Monocytes/100 WBC (Bld) 8.1 % Normal 0-10 [facility] Comment on above: Performed By: #### L 100.0100, L500.2500 ####[facility] [address] [place], [address] Neutrophils/100 WBC (Bld) 74.7 % High 47-70 [facility] Comment on above: Performed By: #### L 100.0100, L500.2500 ####[facility] [address] [place], [address] Nucleated RBC (Bld) [#/Vol] 0 10*3/uL Normal 0-5 [facility] Comment on above: Performed By: #### L 100.0100, L500.2500 ####[facility] [address] [place], [address] Platelet mean volume (Bld) [Entitic vol] 8.7 fL Normal 6.2-12.0 [facility] Comment on above: Performed By: #### L 100.0100, L500.2500 ####[facility] [address] [place], [address] Platelets (Bld) [#/Vol] 400 10*3/uL Normal 150-450 [facility] Comment on above: Performed By: #### L 100.0100, L500.2500 ####[facility] [address] [place], [address] RBC (Bld) [#/Vol] 2.85 10*6/uL Low 4.2-5.4 [facility] Comment on above: Performed By: #### L 100.0100, L500.2500 ####[facility] [address] [place], [address] RDW SD 50.9 fl High 35.1-43.9 [facility] Comment on above: Performed By: #### L 100.0100, L500.2500 ####[facility] [address] [place], [address] WBC (Bld) [#/Vol] 7.8 10*3/uL Normal 4.4-11.0 [facility] Comment on above: Performed By: #### L 100.0100, L500.2500 ####[facility] [address] [place], [address] 12 Lead EKGon 07-26-2024 12 Lead EKG Normal [facility] Basic Metabolic Profile (BMP )on 07-26-2024 BUN/CRE 17.0 RATIO Normal 10-20 [facility] Comment on above: Performed By: #### L 500.2500, L100.0100 ####[facility] [address] [place], [address] CA,Total 8.5 mg/dL Normal 8.5-10.1 [facility] Comment on above: Performed By: #### L 500.2500, L100.0100 ####[facility] [address] [place], [address] Chloride [Moles/Vol] 106 mmol/L Normal 98-107 [facility] Comment on above: Performed By: #### L 500.2500, L100.0100 ####[facility] [address] [place], [address] CO2 [Moles/Vol] 28.0 mmol/L Normal 21.0-32.0 [facility] Comment on above: Performed By: #### L 500.2500, L100.0100 ####[facility] [address] [place], [address] Creatinine [Mass/Vol] 0.71 mg/dL Normal 0.55-1.02 [facility] Comment on above: Result Comment: The validity of the calculated GFR GFRAA in patients over70 years has not been determined. Clinical correlation isessential. Performed By: #### L 500.2500, L100.0100 ####[facility] [address] [place], [address] ECRCL 58.79 ml/min Normal [facility] Comment on above: Performed By: #### L 500.2500, L100.0100 ####[facility] [address] [place], [address] EST GFR - AA 105 mL/min Normal >60 [facility] Comment on above: Result Comment: Afri can Burmese GFR Calc Performed By: #### L 500.2500, L100.0100 ####[facility] [address] [place], [address] GAP 7 Normal 5-15 [facility] Comment on above: Performed By: #### L 500.2500, L100.0100 ####[facility] [address] [place], [address] GFR/1.73 sq M.predicted among non-blacks MDRD (S/P/Bld) [Vol rate/Area] 87 mL/min/{1.73_m2} Normal >60 [facility] Comment on above: Result Comment: Non- GFR Calc Performed By: #### L 500.2500, L100.0100 ####[facility] [address] [place], [address] Glucose [Mass/Vol] 135 mg/dL High 74-106 [facility] Comment on above: Result Comment: Fast ing Glucose result greater than or equal to 126 mg/dLsuggests DIABETES MELLITUS per A.D.A. criteria. Performed By: #### L 500.2500, L100.0100 ####[facility] [address] [place], [address] Potassium [Moles/Vol] 2.5 mmol/L Invalid Interpretation Code 3.5-5.1 [facility] Comment on above: Result Comment: Crit ical Result(s) Called at: 08:38:40 07/26/2024 by:Linda Weiner to Mary Ann. Results read back bysame. Performed By: #### L 500.2500, L100.0100 ####[facility] [address] [place], [address] Sodium [Moles/Vol] 142 mmol/L Normal 136-145 [facility] Comment on above: Performed By: #### L 500.2500, L100.0100 ####[facility] [address] [place], [address] Urea nitrogen [Mass/Vol] 12 mg/dL Normal 7-18 [facility] Comment on above: Performed By: #### L 500.2500, L100.0100 ####[facility] [address] [place], [address] CBC W/Diff, Automatedon 11-10 06-2023 Absolute Lymph 1.63 X10 3/uL Normal 0.83-4.51 [facility] Comment on above: Performed By: #### L 500.2500, L100.0100 ####[facility] [address] [place], [address] Absolute Neut 5.6 X10 3/uL Normal 2.0-7.7 [facility] Comment on above: Performed By: #### L 500.2500, L100.0100 ####[facility] [address] [place], [address] Basophils/100 WBC (Bld) 0.5 % Normal 0-1 [facility] Comment on above: Performed By: #### L 500.2500, L100.0100 ####[facility] [address] [place], [address] Eosinophils/100 WBC (Bld) 0.8 % Normal 0-5 [facility] Comment on above: Performed By: #### L 500.2500, L100.0100 ####[facility] [address] [place], [address] Erythrocyte distribution width (RBC) [Ratio] 14.6 % Normal 11.6-14.6 [facility] Comment on above: Performed By: #### L 500.2500, L100.0100 ####[facility] [address] [place], [address] Hematocrit (Bld) [Volume fraction] 28.8 % Low 37-47 [facility] Comment on above: Performed By: #### L 500.2500, L100.0100 ####[facility] [address] [place], [address] Hemoglobin (Bld) [Mass/Vol] 9.5 g/dL Low 12.0-15.0 [facility] Comment on above: Performed By: #### L 500.2500, L100.0100 ####[facility] [address] [place], [address] IG% 0.500 Normal 0.0-0.9 [facility] Comment on above: Result Comment: IG% - Immature Granulocytes (promyelocytes, myelocytes andmetamyelocytes) > 1% indicates that a LEFT SHIFT is Present. Performed By: #### L 500.2500, L100.0100 ####[facility] [address] [place], [address] Lymphocytes/100 WBC (Bld) 20.4 % Normal 19-41 [facility] Comment on above: Performed By: #### L 500.2500, L100.0100 ####[facility] [address] [place], [address] MCH (RBC) [Entitic mass] 30.6 pg Normal 27.0-32.0 [facility] Comment on above: Performed By: #### L 500.2500, L100.0100 ####[facility] [address] [place], [address] MCHC (RBC) [Mass/Vol] 33.0 g/dL Normal 32-36 [facility] Comment on above: Performed By: #### L 500.2500, L100.0100 ####[facility] [address] [place], [address] MCV (RBC) [Entitic vol] 92.9 fL Normal 81-99 [facility] Comment on above: Performed By: #### L 500.2500, L100.0100 ####[facility] [address] [place], [address] Monocytes/100 WBC (Bld) 8.0 % Normal 0-10 [facility] Comment on above: Performed By: #### L 500.2500, L100.0100 ####[facility] [address] [place], [address] Neutrophils/100 WBC (Bld) 69.8 % Normal 47-70 [facility] Comment on above: Performed By: #### L 500.2500, L100.0100 ####[facility] [address] [place], [address] Nucleated RBC (Bld) [#/Vol] 0 10*3/uL Normal 0-5 [facility] Comment on above: Performed By: #### L 500.2500, L100.0100 ####[facility] [address] [place], [address] Platelet mean volume (Bld) [Entitic vol] 8.6 fL Normal 6.2-12.0 [facility] Comment on above: Performed By: #### L 500.2500, L100.0100 ####[facility] [address] [place], [address] Platelets (Bld) [#/Vol] 453 10*3/uL High 150-450 [facility] Comment on above: Performed By: #### L 500.2500, L100.0100 ####[facility] [address] [place], [address] RBC (Bld) [#/Vol] 3.10 10*6/uL Low 4.2-5.4 [facility] Comment on above: Performed By: #### L 500.2500, L100.0100 ####[facility] [address] [place], [address] RDW SD 49.5 fl High 35.1-43.9 [facility] Comment on above: Performed By: #### L 500.2500, L100.0100 ####[facility] [address] [place], [address] WBC (Bld) [#/Vol] 8.0 10*3/uL Normal 4.4-11.0 [facility] Comment on above: Performed By: #### L 500.2500, L100.0100 ####[facility] [address] [place], [address] Chest 1 View (Portable)on Chest 1 View (Portable) Normal [facility] Emergency Department Summary on 07-26-2024 Emergency Department Summary Normal [facility] H AND P Exam - Hospitaliston 07-26-2024 H&P Exam - Hospitalist Normal [facility] HIP, UNI W/ Pelvis 2-3 Views on 07-26-2024 HIP, UNI W/ Pelvis 2-3 Views Normal [facility] Knee 1 or 2 Viewson 07-26-20 24 Knee 1 or 2 Views Normal [facility] Magnesiumon 07-26-2024 Magnesium [Mass/Vol] 2.0 mg/dL Normal 1.6-2.6 [facility] Comment on above: Performed By: #### L 501.5200, L501.2300 ####[facility] [address] [place], [address] Phosphoruson 07-26-2024 Phosphate [Mass/Vol] 2.6 mg/dL Normal 2.5-4.9 [facility] Comment on above: Performed By: #### L 501.5200, L501.2300 ####[facility] [address] [place], [address] Phosphorus measurementOrdere d By: Lance Gresham on 07-26-2024 Phosphorus Level 2.6 mg/dL 2.5-4.9 [facility] Potassiumon 07-26-2024 Potassium [Moles/Vol] 3.9 mmol/L Normal 3.5-5.1 [facility] Comment on above: Performed By: #### L 501.5600 ####[facility] [address] [place], [address] HIP, UNI W/ Pelvis 2-3 Views on 07-22-2024 HIP, UNI W/ Pelvis 2-3 Views Normal [facility] Orthopedic Visit Reporton Orthopedic Visit Report Normal [facility] CBC-Complete Blood Cnt No Di ffon 07-19-2024 HCT Normal 37-47 [facility] Comment on above: Result Comment: Canc elled via OM: Order cancelled - Patient discharged Performed By: #### L 100.0500 ####[facility] [address] [place], [address] HGB Normal 12.0-15.0 [facility] Comment on above: Result Comment: Canc elled via OM: Order cancelled - Patient discharged Performed By: #### L 100.0500 ####[facility] [address] [place], [address] MCH Normal 27.0-32.0 [facility] Comment on above: Result Comment: Canc elled via OM: Order cancelled - Patient discharged Performed By: #### L 100.0500 ####[facility] [address] [place], [address] MCHC Normal 32-36 [facility] Comment on above: Result Comment: Canc elled via OM: Order cancelled - Patient discharged Performed By: #### L 100.0500 ####[facility] [address] [place], [address] MCV Normal 81-99 [facility] Comment on above: Result Comment: Canc elled via OM: Order cancelled - Patient discharged Performed By: #### L 100.0500 ####[facility] [address] [place], [address] PLT Normal 150-450 [facility] Comment on above: Result Comment: Canc elled via OM: Order cancelled - Patient discharged Performed By: #### L 100.0500 ####[facility] [address] [place], [address] RBC Normal 4.2-5.4 [facility] Comment on above: Result Comment: Canc elled via OM: Order cancelled - Patient discharged Performed By: #### L 100.0500 ####[facility] [address] [place], [address] RDW CV Normal 11.6-14.6 [facility] Comment on above: Result Comment: Canc elled via OM: Order cancelled - Patient discharged Performed By: #### L 100.0500 ####[facility] [address] [place], [address] RDW SD Normal 35.1-43.9 [facility] Comment on above: Result Comment: Canc elled via OM: Order cancelled - Patient discharged Performed By: #### L 100.0500 ####[facility] [address] [place], [address] WBC Normal 4.4-11.0 [facility] Comment on above: Result Comment: Canc elled via OM: Order cancelled - Patient discharged Performed By: #### L 100.0500 ####[facility] [address] [place], [address] CBC-Complete Blood Cnt No Di ffon 07-18-2024 Erythrocyte distribution width (RBC) [Ratio] 13.8 % Normal 11.6-14.6 [facility] Comment on above: Performed By: #### L 100.0500 ####[facility] [address] [place], [address] Hematocrit (Bld) [Volume fraction] 26.2 % Low 37-47 [facility] Comment on above: Performed By: #### L 100.0500 ####[facility] [address] [place], [address] Hemoglobin (Bld) [Mass/Vol] 8.6 g/dL Low 12.0-15.0 [facility] Comment on above: Performed By: #### L 100.0500 ####[facility] [address] [place], [address] MCH (RBC) [Entitic mass] 30.8 pg Normal 27.0-32.0 [facility] Comment on above: Performed By: #### L 100.0500 ####[facility] [address] [place], [address] MCHC (RBC) [Mass/Vol] 32.8 g/dL Normal 32-36 [facility] Comment on above: Performed By: #### L 100.0500 ####[facility] [address] [place], [address] MCV (RBC) [Entitic vol] 93.9 fL Normal 81-99 [facility] Comment on above: Performed By: #### L 100.0500 ####[facility] [address] [place], [address] Platelet mean volume (Bld) [Entitic vol] 9.9 fL Normal 6.2-12.0 [facility] Comment on above: Performed By: #### L 100.0500 ####[facility] [address] [place], [address] Platelets (Bld) [#/Vol] 173 10*3/uL Normal 150-450 [facility] Comment on above: Performed By: #### L 100.0500 ####[facility] [address] [place], [address] RBC (Bld) [#/Vol] 2.79 10*6/uL Low 4.2-5.4 [facility] Comment on above: Performed By: #### L 100.0500 ####[facility] [address] [place], [address] RDW SD 47.6 fl High 35.1-43.9 [facility] Comment on above: Performed By: #### L 100.0500 ####[facility] [address] [place], [address] WBC (Bld) [#/Vol] 9.9 10*3/uL Normal 4.4-11.0 [facility] Comment on above: Performed By: #### L 100.0500 ####[facility] [address] [place], [address] Discharge Instructionon 07-05 Discharge Instruction Normal [facility] Basic Metabolic Profile (BMP )on 07-17-2024 BUN/CRE 13.7 RATIO Normal 10-20 [facility] Comment on above: Performed By: #### L 100.0500, L500.2500 ####[facility] [address] [place], [address] CA,Total 8.1 mg/dL Low 8.5-10.1 [facility] Comment on above: Performed By: #### L 100.0500, L500.2500 ####[facility] [address] [place], [address] Chloride [Moles/Vol] 108 mmol/L High 98-107 [facility] Comment on above: Performed By: #### L 100.0500, L500.2500 ####[facility] [address] [place], [address] CO2 [Moles/Vol] 23.0 mmol/L Normal 21.0-32.0 [facility] Comment on above: Performed By: #### L 100.0500, L500.2500 ####[facility] [address] [place], [address] Creatinine [Mass/Vol] 1.17 mg/dL High 0.55-1.02 [facility] Comment on above: Result Comment: The validity of the calculated GFR GFRAA in patients over70 years has not been determined. Clinical correlation isessential. Performed By: #### L 100.0500, L500.2500 ####[facility] [address] [place], [address] ECRCL 40.26 ml/min Normal [facility] Comment on above: Performed By: #### L 100.0500, L500.2500 ####[facility] [address] [place], [address] EST GFR - AA 59 mL/min Low >60 [facility] Comment on above: Result Comment: Afri can Burmese GFR Calc Performed By: #### L 100.0500, L500.2500 ####[facility] [address] [place], [address] GAP 8 Normal 5-15 [facility] Comment on above: Performed By: #### L 100.0500, L500.2500 ####[facility] [address] [place], [address] GFR/1.73 sq M.predicted among non-blacks MDRD (S/P/Bld) [Vol rate/Area] 48 mL/min/{1.73_m2} Low >60 [facility] Comment on above: Result Comment: Non- GFR Calc Performed By: #### L 100.0500, L500.2500 ####[facility] [address] [place], [address] Glucose [Mass/Vol] 113 mg/dL High 74-106 [facility] Comment on above: Result Comment: Fast ing Glucose result from 100 to 125 mg/dLsuggests IMPAIRED HOMEOSTASIS per A.D.A. criteria. Performed By: #### L 100.0500, L500.2500 ####[facility] [address] [place], [address] Potassium [Moles/Vol] 3.4 mmol/L Low 3.5-5.1 [facility] Comment on above: Performed By: #### L 100.0500, L500.2500 ####[facility] [address] [place], [address] Sodium [Moles/Vol] 139 mmol/L Normal 136-145 [facility] Comment on above: Performed By: #### L 100.0500, L500.2500 ####[facility] [address] [place], [address] Urea nitrogen [Mass/Vol] 16 mg/dL Normal 7-18 [facility] Comment on above: Performed By: #### L 100.0500, L500.2500 ####[facility] [address] [place], [address] CBC-Complete Blood Cnt No Di ffon 07-17-2024 Erythrocyte distribution width (RBC) [Ratio] 13.7 % Normal 11.6-14.6 [facility] Comment on above: Performed By: #### L 100.0500, L500.2500 ####[facility] [address] [place], [address] Hematocrit (Bld) [Volume fraction] 28.8 % Low 37-47 [facility] Comment on above: Performed By: #### L 100.0500, L500.2500 ####[facility] [address] [place], [address] Hemoglobin (Bld) [Mass/Vol] 9.6 g/dL Low 12.0-15.0 [facility] Comment on above: Performed By: #### L 100.0500, L500.2500 ####[facility] [address] [place], [address] MCH (RBC) [Entitic mass] 30.7 pg Normal 27.0-32.0 [facility] Comment on above: Performed By: #### L 100.0500, L500.2500 ####[facility] [address] [place], [address] MCHC (RBC) [Mass/Vol] 33.3 g/dL Normal 32-36 [facility] Comment on above: Performed By: #### L 100.0500, L500.2500 ####[facility] [address] [place], [address] MCV (RBC) [Entitic vol] 92.0 fL Normal 81-99 [facility] Comment on above: Performed By: #### L 100.0500, L500.2500 ####[facility] [address] [place], [address] Platelet mean volume (Bld) [Entitic vol] 9.3 fL Normal 6.2-12.0 [facility] Comment on above: Performed By: #### L 100.0500, L500.2500 ####[facility] [address] [place], [address] Platelets (Bld) [#/Vol] 232 10*3/uL Normal 150-450 [facility] Comment on above: Performed By: #### L 100.0500, L500.2500 ####[facility] [address] [place], [address] RBC (Bld) [#/Vol] 3.13 10*6/uL Low 4.2-5.4 [facility] Comment on above: Performed By: #### L 100.0500, L500.2500 ####[facility] [address] [place], [address] RDW SD 45.9 fl High 35.1-43.9 [facility] Comment on above: Performed By: #### L 100.0500, L500.2500 ####[facility] [address] [place], [address] WBC (Bld) [#/Vol] 11.7 10*3/uL High 4.4-11.0 [facility] Comment on above: Performed By: #### L 100.0500, L500.2500 ####[facility] [address] [place], [address] Bedside Glucoseon 07-16-2024 FINGERSTICK GLU 94 mg/dL Normal 74-106 [facility] Comment on above: Result Comment: RINA DUKES OF PATIENT CARE PER NURSING PROTOCOL Performed By: #### L 501.080 ####[facility] [address] [place], [address] Decalcification bone/plaqueo n 07-16-2024 Decalcification bone/plaque Normal [facility] Comment on above: Performed By: #### P DEC ####[facility] [address] [place], [address] Hip Min 2 Views (Portable)on 07-16-2024 Hip Min 2 Views (Portable) Normal [facility] MR/POSTOP.ANEon 07-16-2024 MR/POSTOP.ANE Normal [facility] MR/LSLIPLUO0wc 07-16-2024 MR/POSTOPAN2 Normal [facility] Operative Reporton Operative Report Normal [facility] Type AND Screenon 07-16-2024 ABO and Rh group Nom (Bld) Blood group A Rh(D) positive Normal [facility] Comment on above: Order Comment: Reaso n for Laboratory Test [id number] hipOTHER Performed By: #### B TS ####[facility] [address] [place], [place], [id number] Extremity Lower without Cont raon 07-12-2024 Extremity Lower without Contra Normal [facility] Fructosamineon 07-08-2024 FRUCTOSAMINE 283 umol/L Normal 0-285 [facility] Comment on above: Order Comment: DR ASH LENTZ ORDERED INTERNAL PAT LABDR. JONES ORDERED A1C VITD CBCD CMP TSH PT PTT Result Comment: Publ ished reference interval for apparently healthysubjects between age 20 and 60 is 205 - 285 umol/L and in apoorly controlled diabetic population is 228 - 563 umol/Lwith a mean of 396 umol/L.Performed at: [place] [id number] Director: Franklyn Lopez PhD, Phone: [phone] Performed By: #### L 3400.0100, L500.4050, L100.0100, L501.9985, L506.1000, L501.9520, L300.4310, M100.651, L300.3900 ####[facility] [address] [place], [place], [id number] MRSA/SAID NASAL SCREENon MRSA+SAID SCRN Reason for Exam: PRE OP DR JOHNSON ORDERED INTERNAL PAT LAB DR. JONES ORDERED A1C VITD CBCD CMP TSH PT PTT MRSA MRSA Negative S. AUREUS S. aureus Negative Normal [facility] Comment on above: Performed By: #### L 3400.0100, L500.4050, L100.0100, L501.9985, L506.1000, L501.9520, L300.4310, M100.651, L300.3900 ####[facility] [address] [facility] [place], [address] CBC W/Diff, Automatedon 11-0 -4 Absolute Lymph 1.25 X10 3/uL Normal 0.83-4.51 [facility] Comment on above: Order Comment: DR ASH LENTZ ORDERED INTERNAL PAT LABDRMichelle JONES ORDERED A1C VITD CBCD CMP TSH PT PTT Performed By: #### L 3400.0100, L500.4050, L100.0100, L501.9985, L506.1000, L501.9520, L300.4310, M100.651, L300.3900 ####[facility] [address] [place], [address] Absolute Neut 3.2 X10 3/uL Normal 2.0-7.7 [facility] Comment on above: Order Comment: DR ASH LENTZ ORDERED INTERNAL PAT LABDR. BENITA ORDERED A1C VITD CBCD CMP TSH PT PTT Performed By: #### L 3400.0100, L500.4050, L100.0100, L501.9985, L506.1000, L501.9520, L300.4310, M100.651, L300.3900 ####[facility] [address] [place], [address] Basophils/100 WBC (Bld) 1.0 % Normal 0-1 [facility] Comment on above: Order Comment: DR ASH LENTZ ORDERED INTERNAL PAT LABDRMichelle JONES ORDERED A1C VITD CBCD CMP TSH PT PTT Performed By: #### L 3400.0100, L500.4050, L100.0100, L501.9985, L506.1000, L501.9520, L300.4310, M100.651, L300.3900 ####[facility] [address] [place], [address] Eosinophils/100 WBC (Bld) 1.7 % Normal 0-5 [facility] Comment on above: Order Comment: DR ASH LENTZ ORDERED INTERNAL PAT LABDRMichelle JONES ORDERED A1C VITD CBCD CMP TSH PT PTT Performed By: #### L 3400.0100, L500.4050, L100.0100, L501.9985, L506.1000, L501.9520, L300.4310, M100.651, L300.3900 ####[facility] [address] [place], [address] Erythrocyte distribution width (RBC) [Ratio] 14.0 % Normal 11.6-14.6 [facility] Comment on above: Order Comment: DR ASH LENTZ ORDERED INTERNAL PAT LABDRMichelle JONES ORDERED A1C VITD CBCD CMP TSH PT PTT Performed By: #### L 3400.0100, L500.4050, L100.0100, L501.9985, L506.1000, L501.9520, L300.4310, M100.651, L300.3900 ####[facility] [address] [place], [address] Hematocrit (Bld) [Volume fraction] 38.6 % Normal 37-47 [facility] Comment on above: Order Comment: DR ASH LENTZ ORDERED INTERNAL PAT LABDRMichelle JONES ORDERED A1C VITD CBCD CMP TSH PT PTT Performed By: #### L 3400.0100, L500.4050, L100.0100, L501.9985, L506.1000, L501.9520, L300.4310, M100.651, L300.3900 ####[facility] [address] [place], [address] Hemoglobin (Bld) [Mass/Vol] 12.2 g/dL Normal 12.0-15.0 [facility] Comment on above: Order Comment: DR ASH LENTZ ORDERED INTERNAL PAT LABDR. JONES ORDERED A1C VITD CBCD CMP TSH PT PTT Performed By: #### L 3400.0100, L500.4050, L100.0100, L501.9985, L506.1000, L501.9520, L300.4310, M100.651, L300.3900 ####[facility] [address] [place], [address] IG% 0.400 Normal 0.0-0.9 [facility] Comment on above: Order Comment: DR ASH LENTZ ORDERED INTERNAL PAT LABDR. JONES ORDERED A1C VITD CBCD CMP TSH PT PTT Result Comment: IG% - Immature Granulocytes (promyelocytes, myelocytes andmetamyelocytes) > 1% indicates that a LEFT SHIFT is Present. Performed By: #### L 3400.0100, L500.4050, L100.0100, L501.9985, L506.1000, L501.9520, L300.4310, M100.651, L300.3900 ####[facility] [address] [place], [address] Lymphocytes/100 WBC (Bld) 24.1 % Normal 19-41 [facility] Comment on above: Order Comment: DR ASH LENTZ ORDERED INTERNAL PAT LABDR. JONES ORDERED A1C VITD CBCD CMP TSH PT PTT Performed By: #### L 3400.0100, L500.4050, L100.0100, L501.9985, L506.1000, L501.9520, L300.4310, M100.651, L300.3900 ####[facility] [address] [place], [address] MCH (RBC) [Entitic mass] 30.3 pg Normal 27.0-32.0 [facility] Comment on above: Order Comment: DR ASH LENTZ ORDERED INTERNAL PAT LABDR. JONES ORDERED A1C VITD CBCD CMP TSH PT PTT Performed By: #### L 3400.0100, L500.4050, L100.0100, L501.9985, L506.1000, L501.9520, L300.4310, M100.651, L300.3900 ####[facility] [address] [place], [address] MCHC (RBC) [Mass/Vol] 31.6 g/dL Low 32-36 [facility] Comment on above: Order Comment: DR ASH LENTZ ORDERED INTERNAL PAT LABDR. BENITA ORDERED A1C VITD CBCD CMP TSH PT PTT Performed By: #### L 3400.0100, L500.4050, L100.0100, L501.9985, L506.1000, L501.9520, L300.4310, M100.651, L300.3900 ####[facility] [address] [place], [address] MCV (RBC) [Entitic vol] 95.8 fL Normal 81-99 [facility] Comment on above: Order Comment: DR ASH LENTZ ORDERED INTERNAL PAT LABDR. BENITA ORDERED A1C VITD CBCD CMP TSH PT PTT Performed By: #### L 3400.0100, L500.4050, L100.0100, L501.9985, L506.1000, L501.9520, L300.4310, M100.651, L300.3900 ####[facility] [address] [place], [address] Monocytes/100 WBC (Bld) 11.0 % High 0-10 [facility] Comment on above: Order Comment: DR ASH LENTZ ORDERED INTERNAL PAT LABDR. BENITA ORDERED A1C VITD CBCD CMP TSH PT PTT Performed By: #### L 3400.0100, L500.4050, L100.0100, L501.9985, L506.1000, L501.9520, L300.4310, M100.651, L300.3900 ####[facility] [address] [place], [address] Neutrophils/100 WBC (Bld) 61.8 % Normal 47-70 [facility] Comment on above: Order Comment: DR ASH LENTZ ORDERED INTERNAL PAT LABDR. BENITA ORDERED A1C VITD CBCD CMP TSH PT PTT Performed By: #### L 3400.0100, L500.4050, L100.0100, L501.9985, L506.1000, L501.9520, L300.4310, M100.651, L300.3900 ####[facility] [address] [place], [address] Nucleated RBC (Bld) [#/Vol] 0 10*3/uL Normal 0-5 [facility] Comment on above: Order Comment: DR ASH LENTZ ORDERED INTERNAL PAT LABDR. BENITA ORDERED A1C VITD CBCD CMP TSH PT PTT Performed By: #### L 3400.0100, L500.4050, L100.0100, L501.9985, L506.1000, L501.9520, L300.4310, M100.651, L300.3900 ####[facility] [address] [place], [address] Platelet mean volume (Bld) [Entitic vol] 9.4 fL Normal 6.2-12.0 [facility] Comment on above: Order Comment: DR ASH LENTZ ORDERED INTERNAL PAT LABDR. BENITA ORDERED A1C VITD CBCD CMP TSH PT PTT Performed By: #### L 3400.0100, L500.4050, L100.0100, L501.9985, L506.1000, L501.9520, L300.4310, M100.651, L300.3900 ####[facility] [address] [place], [address] Platelets (Bld) [#/Vol] 205 10*3/uL Normal 150-450 [facility] Comment on above: Order Comment: DR ASH LENTZ ORDERED INTERNAL PAT LABDR. BENITA ORDERED A1C VITD CBCD CMP TSH PT PTT Performed By: #### L 3400.0100, L500.4050, L100.0100, L501.9985, L506.1000, L501.9520, L300.4310, M100.651, L300.3900 ####[facility] [address] [place], [address] RBC (Bld) [#/Vol] 4.03 10*6/uL Low 4.2-5.4 [facility] Comment on above: Order Comment: DR ASH LENTZ ORDERED INTERNAL PAT LABDRMichelle JONES ORDERED A1C VITD CBCD CMP TSH PT PTT Performed By: #### L 3400.0100, L500.4050, L100.0100, L501.9985, L506.1000, L501.9520, L300.4310, M100.651, L300.3900 ####[facility] [address] [place], [address] RDW SD 49.3 fl High 35.1-43.9 [facility] Comment on above: Order Comment: DR ASH LENTZ ORDERED INTERNAL PAT LABDRMichelle JONES ORDERED A1C VITD CBCD CMP TSH PT PTT Performed By: #### L 3400.0100, L500.4050, L100.0100, L501.9985, L506.1000, L501.9520, L300.4310, M100.651, L300.3900 ####[facility] [address] [place], [address] WBC (Bld) [#/Vol] 5.2 10*3/uL Normal 4.4-11.0 [facility] Comment on above: Order Comment: DR ASH LENTZ ORDERED INTERNAL PAT LABDRMichelle JONES ORDERED A1C VITD CBCD CMP TSH PT PTT Performed By: #### L 3400.0100, L500.4050, L100.0100, L501.9985, L506.1000, L501.9520, L300.4310, M100.651, L300.3900 ####[facility] [address] [place], [address] Comprehensive Metabolic Prof ilon 07-05-2024 Albumin [Mass/Vol] 3.8 g/dL Normal 3.2-5.0 [facility] Comment on above: Order Comment: DR ASH LENTZ ORDERED INTERNAL PAT LABDRMichelle JONES ORDERED A1C VITD CBCD CMP TSH PT PTT Performed By: #### L 3400.0100, L500.4050, L100.0100, L501.9985, L506.1000, L501.9520, L300.4310, M100.651, L300.3900 ####[facility] [address] [place], [address] Albumin/Globulin [Mass ratio] 1.2 {ratio} Normal 0.9-2.4 [facility] Comment on above: Order Comment: DR ASH LENTZ ORDERED INTERNAL PAT LABDR. BENITA ORDERED A1C VITD CBCD CMP TSH PT PTT Performed By: #### L 3400.0100, L500.4050, L100.0100, L501.9985, L506.1000, L501.9520, L300.4310, M100.651, L300.3900 ####[facility] [address] [place], [address] ALK P 52 U/L Normal 45-117 [facility] Comment on above: Order Comment: DR ASH LENTZ ORDERED INTERNAL PAT LABDR. BENITA ORDERED A1C VITD CBCD CMP TSH PT PTT Performed By: #### L 3400.0100, L500.4050, L100.0100, L501.9985, L506.1000, L501.9520, L300.4310, M100.651, L300.3900 ####[facility] [address] [place], [address] ALT [Catalytic activity/Vol] 15 U/L Normal 13-56 [facility] Comment on above: Order Comment: DR ASH LENTZ ORDERED INTERNAL PAT LABDR. BENITA ORDERED A1C VITD CBCD CMP TSH PT PTT Performed By: #### L 3400.0100, L500.4050, L100.0100, L501.9985, L506.1000, L501.9520, L300.4310, M100.651, L300.3900 ####[facility] [address] [place], [address] AST [Catalytic activity/Vol] 14 U/L Low 15-37 [facility] Comment on above: Order Comment: DR ASH LENTZ ORDERED INTERNAL PAT LABDR. BENITA ORDERED A1C VITD CBCD CMP TSH PT PTT Performed By: #### L 3400.0100, L500.4050, L100.0100, L501.9985, L506.1000, L501.9520, L300.4310, M100.651, L300.3900 ####[facility] [address] [place], [address] Bilirubin [Mass/Vol] 1.40 mg/dL High 0.20-1.00 [facility] Comment on above: Order Comment: DR ASH LENTZ ORDERED INTERNAL PAT LABDR. BENITA ORDERED A1C VITD CBCD CMP TSH PT PTT Result Comment: For patients on eltrombopag therapy, use of Dimension [place] TBIL is not recommended. Performed By: #### L 3400.0100, L500.4050, L100.0100, L501.9985, L506.1000, L501.9520, L300.4310, M100.651, L300.3900 ####[facility] [address] [place], [address] BUN/CRE 13.7 RATIO Normal 10-20 [facility] Comment on above: Order Comment: DR ASH LENTZ ORDERED INTERNAL PAT LABDRMichelle JONES ORDERED A1C VITD CBCD CMP TSH PT PTT Performed By: #### L 3400.0100, L500.4050, L100.0100, L501.9985, L506.1000, L501.9520, L300.4310, M100.651, L300.3900 ####[facility] [address] [place], [address] CA,Total 8.4 mg/dL Low 8.5-10.1 [facility] Comment on above: Order Comment: DR ASH LENTZ ORDERED INTERNAL PAT LABDRMichelle JONES ORDERED A1C VITD CBCD CMP TSH PT PTT Performed By: #### L 3400.0100, L500.4050, L100.0100, L501.9985, L506.1000, L501.9520, L300.4310, M100.651, L300.3900 ####[facility] [address] [place], [address] Chloride [Moles/Vol] 106 mmol/L Normal 98-107 [facility] Comment on above: Order Comment: DR ASH LENTZ ORDERED INTERNAL PAT LABDR. JONES ORDERED A1C VITD CBCD CMP TSH PT PTT Performed By: #### L 3400.0100, L500.4050, L100.0100, L501.9985, L506.1000, L501.9520, L300.4310, M100.651, L300.3900 ####[facility] [address] [place], [address] CO2 [Moles/Vol] 29.0 mmol/L Normal 21.0-32.0 [facility] Comment on above: Order Comment: DR ASH LENTZ ORDERED INTERNAL PAT LABDR. JONES ORDERED A1C VITD CBCD CMP TSH PT PTT Performed By: #### L 3400.0100, L500.4050, L100.0100, L501.9985, L506.1000, L501.9520, L300.4310, M100.651, L300.3900 ####[facility] [address] [place], [address] Creatinine [Mass/Vol] 0.88 mg/dL Normal 0.55-1.02 [facility] Comment on above: Order Comment: DR ASH LENTZ ORDERED INTERNAL PAT LABDR. JONES ORDERED A1C VITD CBCD CMP TSH PT PTT Result Comment: The validity of the calculated GFR GFRAA in patients over70 years has not been determined. Clinical correlation isessential. Performed By: #### L 3400.0100, L500.4050, L100.0100, L501.9985, L506.1000, L501.9520, L300.4310, M100.651, L300.3900 ####[facility] [address] [place], [address] EST GFR - AA 82 mL/min Normal >60 [facility] Comment on above: Order Comment: DR ASH LENTZ ORDERED INTERNAL PAT LABDR. BENIAT ORDERED A1C VITD CBCD CMP TSH PT PTT Result Comment: Afri can Burmese GFR Calc Performed By: #### L 3400.0100, L500.4050, L100.0100, L501.9985, L506.1000, L501.9520, L300.4310, M100.651, L300.3900 ####[facility] [address] [place], [address] GAP 6 Normal 5-15 [facility] Comment on above: Order Comment: DR ASH LENTZ ORDERED INTERNAL PAT LABDR. BENITA ORDERED A1C VITD CBCD CMP TSH PT PTT Performed By: #### L 3400.0100, L500.4050, L100.0100, L501.9985, L506.1000, L501.9520, L300.4310, M100.651, L300.3900 ####[facility] [address] [place], [place], [phone]) GFR/1.73 sq M.predicted among non-blacks MDRD (S/P/Bld) [Vol rate/Area] 68 mL/min/{1.73_m2} Normal >60 [facility] Comment on above: Order Comment: DR ASH LENTZ ORDERED INTERNAL PAT LABDR. BENITA ORDERED A1C VITD CBCD CMP TSH PT PTT Result Comment: Non- GFR Calc Performed By: #### L 3400.0100, L500.4050, L100.0100, L501.9985, L506.1000, L501.9520, L300.4310, M100.651, L300.3900 ####[facility] [address] [place], [address] Globulin (S) [Mass/Vol] 3.2 g/dL Normal 2.2-4.2 [facility] Comment on above: Order Comment: DR ASH LENTZ ORDERED INTERNAL PAT LABDR. BENITA ORDERED A1C VITD CBCD CMP TSH PT PTT Performed By: #### L 3400.0100, L500.4050, L100.0100, L501.9985, L506.1000, L501.9520, L300.4310, M100.651, L300.3900 ####[facility] [address] [place], [address] Glucose [Mass/Vol] 97 mg/dL Normal 74-106 [facility] Comment on above: Order Comment: DR ASH LENTZ ORDERED INTERNAL PAT LABDR. BENITA ORDERED A1C VITD CBCD CMP TSH PT PTT Performed By: #### L 3400.0100, L500.4050, L100.0100, L501.9985, L506.1000, L501.9520, L300.4310, M100.651, L300.3900 ####[facility] [address] [place], [address] Potassium [Moles/Vol] 3.7 mmol/L Normal 3.5-5.1 [facility] Comment on above: Order Comment: DR ASH LENTZ ORDERED INTERNAL PAT LABDR. BENITA ORDERED A1C VITD CBCD CMP TSH PT PTT Performed By: #### L 3400.0100, L500.4050, L100.0100, L501.9985, L506.1000, L501.9520, L300.4310, M100.651, L300.3900 ####[facility] [address] [place], [address] Sodium [Moles/Vol] 140 mmol/L Normal 136-145 [facility] Comment on above: Order Comment: DR ASH LENTZ ORDERED INTERNAL PAT LABDR. BENITA ORDERED A1C VITD CBCD CMP TSH PT PTT Performed By: #### L 3400.0100, L500.4050, L100.0100, L501.9985, L506.1000, L501.9520, L300.4310, M100.651, L300.3900 ####[facility] [address] [place], [address] T PROT 7.0 g/dL Normal 6.4-8.2 [facility] Comment on above: Order Comment: DR ASH LENTZ ORDERED INTERNAL PAT LABDRMichelle JONES ORDERED A1C VITD CBCD CMP TSH PT PTT Performed By: #### L 3400.0100, L500.4050, L100.0100, L501.9985, L506.1000, L501.9520, L300.4310, M100.651, L300.3900 ####[facility] [address] [place], [place], [phone]) Urea nitrogen [Mass/Vol] 12 mg/dL Normal 7-18 [facility] Comment on above: Order Comment: DR ASH LENTZ ORDERED INTERNAL PAT LABDRMichelle JONES ORDERED A1C VITD CBCD CMP TSH PT PTT Performed By: #### L 3400.0100, L500.4050, L100.0100, L501.9985, L506.1000, L501.9520, L300.4310, M100.651, L300.3900 ####[facility] [address] [place], [address] Hemoglobin A1con 07-05-2024 HbA1c (Bld) [Mass fraction] 5.3 % Normal 3.8-5.6 [facility] Comment on above: Order Comment: DR ASH LENTZ ORDERED INTERNAL PAT LABDRMichelle JONES ORDERED A1C VITD CBCD CMP TSH PT PTT Result Comment: Norm al < 5.7 % Prediabetic 5.7 - 6.4 % Diabetic >or= 6.5 % Please note range changes. Performed By: #### L 3400.0100, L500.4050, L100.0100, L501.9985, L506.1000, L501.9520, L300.4310, M100.651, L300.3900 ####[facility] [address] [place], [address] Magnesiumon 07-05-2024 Magnesium [Mass/Vol] 2.3 mg/dL Normal 1.6-2.6 [facility] Comment on above: Performed By: #### L 501.5200 ####[facility] [id number] [place], [address] Partial Thromboplast Timeon 07-05-2024 aPTT Coag (Bld) [Time] 27.8 s Normal 24.1-36.2 [facility] Comment on above: Order Comment: DR ASH LENTZ ORDERED INTERNAL PAT LABDR. BENITA ORDERED A1C VITD CBCD CMP TSH PT PTT Performed By: #### L 3400.0100, L500.4050, L100.0100, L501.9985, L506.1000, L501.9520, L300.4310, M100.651, L300.3900 ####[facility] [id number] [place], [address] Prothrombin Time w/INRon INR Coag (PPP) [Relative time] 1.1 {INR} Normal [facility] Comment on above: Order Comment: DR ASH LENTZ ORDERED INTERNAL PAT LABDR. BENITA ORDERED A1C VITD CBCD CMP TSH PT PTT Performed By: #### L 3400.0100, L500.4050, L100.0100, L501.9985, L506.1000, L501.9520, L300.4310, M100.651, L300.3900 ####[facility] [id number] [place], [address] PT Coag (PPP) [Time] 14.4 s Normal 11.7-14.9 [facility] Comment on above: Order Comment: DR ASH LENTZ ORDERED INTERNAL PAT LABDRMichelle JONES ORDERED A1C VITD CBCD CMP TSH PT PTT Performed By: #### L 3400.0100, L500.4050, L100.0100, L501.9985, L506.1000, L501.9520, L300.4310, M100.651, L300.3900 ####[facility] [facility] [address] [place], [address] Thyroid Stim Hormone (TSH)on 07-05-2024 TSH 1.080 uIU/mL Normal 0.358-3.74 0 [facility] Comment on above: Order Comment: DR ASH LENTZ ORDERED INTERNAL PAT LABDRMichelle JONES ORDERED A1C VITD CBCD CMP TSH PT PTT Performed By: #### L 3400.0100, L500.4050, L100.0100, L501.9985, L506.1000, L501.9520, L300.4310, M100.651, L300.3900 ####[facility] [address] [place], [address] Type AND Screen - PAT ONLYon 07-05-2024 A1 CELL Not performed Normal [facility] Comment on above: Order Comment: Reaso n for Laboratory Test [id number]/ANNSTOTAL HIP REPLACMENT Result Comment: SAMP LE MISLABELED Performed By: #### B TSPAT ####[facility] [address] [place], [address] Ab SCREEN GEL Not performed Normal [facility] Comment on above: Order Comment: Reaso n for Laboratory Test [id number]/ANNSTOTAL HIP REPLACMENT Result Comment: SAMP LE MISLABELED Performed By: #### B TSPAT ####[facility] [address] [place], [address] ABO and Rh group Nom (Bld) Test Not Performed Normal [facility] Comment on above: Order Comment: Reaso n for Laboratory Test [id number]/ANNSTOTAL HIP REPLACMENT Result Comment: SAMP LE MISLABELED Performed By: #### B TSPAT ####[facility] [address] [place], [address] ANTI A Not performed Normal [facility] Comment on above: Order Comment: Reaso n for Laboratory Test [id number]/ANNSTOTAL HIP REPLACMENT Result Comment: SAMP LE MISLABELED Performed By: #### B TSPAT ####[facility] [address] [place], [address] ANTI B Not performed Normal [facility] Comment on above: Order Comment: Reaso n for Laboratory Test [id number]/ANNSTOTAL HIP REPLACMENT Result Comment: SAMP LE MISLABELED Performed By: #### B TSPAT ####[facility] [address] [place], [address] ANTI D Not performed Normal [facility] Comment on above: Order Comment: Reaso n for Laboratory Test [id number]/ANNSTOTAL HIP REPLACMENT Result Comment: SAMP LE MISLABELED Performed By: #### B TSPAT ####[facility] [address] [place], [address] B CELLS Not performed Normal [facility] Comment on above: Order Comment: Reaso n for Laboratory Test [id number]/ANNSTOTAL HIP REPLACMENT Result Comment: SAMP LE MISLABELED Performed By: #### B TSPAT ####[facility] [address] [place], [address] Vitamin D,25 Hydroxyon 07-05 Vitamin D 25-OH 55.5 ng/mL Normal [facility] Comment on above: Order Comment: DR ASH LENTZ ORDERED INTERNAL PAT LABDRMichelle JONES ORDERED A1C VITD CBCD CMP TSH PT PTT Result Comment: Pennie min D 25(OH) Status Range Deficiency <20 ng/mL (50nmol/L) Insufficiency 20 - 30 ng/mL (50 - 75 nmol/L) Sufficiency 30 - 100 ng/mL (75 - 250 nmol/L) Toxicity >100 ng/mL (>250 nmol/L) Performed By: #### L 3400.0100, L500.4050, L100.0100, L501.9985, L506.1000, L501.9520, L300.4310, M100.651, L300.3900 ####[facility] [address] [place], [address] Orthopedic Visit Reporton Orthopedic Visit Report Normal [facility] Lower Ext Joint Only (Routin e)on 06-06-2024 Lower Ext Joint Only (Routine) Normal [facility] CBC W/Diff, Automatedon 05-06 Absolute Lymph 1.44 X10 3/uL Normal 0.83-4.51 [facility] Comment on above: Performed By: #### L 100.0100, L500.4050 ####[facility] [address] [place], [address] Absolute Neut 2.6 X10 3/uL Normal 2.0-7.7 [facility] Comment on above: Performed By: #### L 100.0100, L500.4050 ####[facility] [address] [place], [address] Basophils/100 WBC (Bld) 0.9 % Normal 0-1 [facility] Comment on above: Performed By: #### L 100.0100, L500.4050 ####[facility] [address] [place], [address] Eosinophils/100 WBC (Bld) 0.9 % Normal 0-5 [facility] Comment on above: Performed By: #### L 100.0100, L500.4050 ####[facility] [address] [place], [address] Erythrocyte distribution width (RBC) [Ratio] 13.3 % Normal 11.6-14.6 [facility] Comment on above: Performed By: #### L 100.0100, L500.4050 ####[facility] [address] [place], [address] Hematocrit (Bld) [Volume fraction] 39.6 % Normal 37-47 [facility] Comment on above: Performed By: #### L 100.0100, L500.4050 ####[facility] [address] [place], [address] Hemoglobin (Bld) [Mass/Vol] 13.0 g/dL Normal 12.0-15.0 [facility] Comment on above: Performed By: #### L 100.0100, L500.4050 ####[facility] [address] [place], [address] IG% 0.200 Normal 0.0-0.9 [facility] Comment on above: Result Comment: IG% - Immature Granulocytes (promyelocytes, myelocytes andmetamyelocytes) > 1% indicates that a LEFT SHIFT is Present. Performed By: #### L 100.0100, L500.4050 ####[facility] [address] [place], [address] Lymphocytes/100 WBC (Bld) 31.3 % Normal 19-41 [facility] Comment on above: Performed By: #### L 100.0100, L500.4050 ####[facility] [address] [place], [address] MCH (RBC) [Entitic mass] 30.8 pg Normal 27.0-32.0 [facility] Comment on above: Performed By: #### L 100.0100, L500.4050 ####[facility] [address] [place], [address] MCHC (RBC) [Mass/Vol] 32.8 g/dL Normal 32-36 [facility] Comment on above: Performed By: #### L 100.0100, L500.4050 ####[facility] [address] [place], [address] MCV (RBC) [Entitic vol] 93.8 fL Normal 81-99 [facility] Comment on above: Performed By: #### L 100.0100, L500.4050 ####[facility] [address] [place], [address] Monocytes/100 WBC (Bld) 10.2 % High 0-10 [facility] Comment on above: Performed By: #### L 100.0100, L500.4050 ####[facility] [address] [place], [address] Neutrophils/100 WBC (Bld) 56.5 % Normal 47-70 [facility] Comment on above: Performed By: #### L 100.0100, L500.4050 ####[facility] [address] [place], [address] Nucleated RBC (Bld) [#/Vol] 0 10*3/uL Normal 0-5 [facility] Comment on above: Performed By: #### L 100.0100, L500.4050 ####[facility] [address] [place], [address] Platelet mean volume (Bld) [Entitic vol] 9.6 fL Normal 6.2-12.0 [facility] Comment on above: Performed By: #### L 100.0100, L500.4050 ####[facility] [address] [place], [address] Platelets (Bld) [#/Vol] 259 10*3/uL Normal 150-450 [facility] Comment on above: Performed By: #### L 100.0100, L500.4050 ####[facility] [address] [place], [address] RBC (Bld) [#/Vol] 4.22 10*6/uL Normal 4.2-5.4 [facility] Comment on above: Performed By: #### L 100.0100, L500.4050 ####[facility] [address] [place], [address] RDW SD 45.3 fl High 35.1-43.9 [facility] Comment on above: Performed By: #### L 100.0100, L500.4050 ####[facility] [address] [place], [address] WBC (Bld) [#/Vol] 4.6 10*3/uL Normal 4.4-11.0 [facility] Comment on above: Performed By: #### L 100.0100, L500.4050 ####[facility] [address] [place], [address] Comprehensive Metabolic Prof [facility] 05-29-2024 Albumin [Mass/Vol] 4.0 g/dL Normal 3.2-5.0 [facility] Comment on above: Performed By: #### L 100.0100, L500.4050 ####[facility] [address] [place], [address] Albumin/Globulin [Mass ratio] 1.1 {ratio} Normal 0.9-2.4 [facility] Comment on above: Performed By: #### L 100.0100, L500.4050 ####[facility] [address] [place], [address] ALK P 79 U/L Normal 45-117 [facility] Comment on above: Performed By: #### L 100.0100, L500.4050 ####[facility] [address] [place], [address] ALT [Catalytic activity/Vol] 20 U/L Normal 13-56 [facility] Comment on above: Performed By: #### L 100.0100, L500.4050 ####[facility] [address] [place], [address] AST [Catalytic activity/Vol] 17 U/L Normal 15-37 [facility] Comment on above: Performed By: #### L 100.0100, L500.4050 ####[facility] [address] [place], [address] Bilirubin [Mass/Vol] 1.10 mg/dL High 0.20-1.00 [facility] Comment on above: Result Comment: For patients on eltrombopag therapy, use of Dimension [place] TBIL is not recommended. Performed By: #### L 100.0100, L500.4050 ####[facility] [address] [place], [address] BUN/CRE 13.9 RATIO Normal 10-20 [facility] Comment on above: Performed By: #### L 100.0100, L500.4050 ####[facility] [address] [place], [address] CA,Total 9.3 mg/dL Normal 8.5-10.1 [facility] Comment on above: Performed By: #### L 100.0100, L500.4050 ####[facility] [address] [place], [address] Chloride [Moles/Vol] 107 mmol/L Normal 98-107 [facility] Comment on above: Performed By: #### L 100.0100, L500.4050 ####[facility] [address] [place], [address] CO2 [Moles/Vol] 27.0 mmol/L Normal 21.0-32.0 [facility] Comment on above: Performed By: #### L 100.0100, L500.4050 ####[facility] [address] [place], [address] Creatinine [Mass/Vol] 0.86 mg/dL Normal 0.55-1.02 [facility] Comment on above: Result Comment: The validity of the calculated GFR GFRAA in patients over70 years has not been determined. Clinical correlation isessential. Performed By: #### L 100.0100, L500.4050 ####[facility] [address] [place], [address] EST GFR - AA 83 mL/min Normal >60 [facility] Comment on above: Result Comment: Afri can Burmese GFR Calc Performed By: #### L 100.0100, L500.4050 ####[facility] [address] [place], [address] GAP 5 Normal 5-15 [facility] Comment on above: Performed By: #### L 100.0100, L500.4050 ####[facility] [address] [place], [address] GFR/1.73 sq M.predicted among non-blacks MDRD (S/P/Bld) [Vol rate/Area] 69 mL/min/{1.73_m2} Normal >60 [facility] Comment on above: Result Comment: Non- GFR Calc Performed By: #### L 100.0100, L500.4050 ####[facility] [address] [place], [address] Globulin (S) [Mass/Vol] 3.6 g/dL Normal 2.2-4.2 [facility] Comment on above: Performed By: #### L 100.0100, L500.4050 ####[facility] [address] [place], [address] Glucose [Mass/Vol] 111 mg/dL High 74-106 [facility] Comment on above: Result Comment: Fast ing Glucose result from 100 to 125 mg/dLsuggests IMPAIRED HOMEOSTASIS per A.D.A. criteria. Performed By: #### L 100.0100, L500.4050 ####[facility] [address] [place], [address] Potassium [Moles/Vol] 3.8 mmol/L Normal 3.5-5.1 [facility] Comment on above: Performed By: #### L 100.0100, L500.4050 ####[facility] [address] [place], [address] Sodium [Moles/Vol] 140 mmol/L Normal 136-145 [facility] Comment on above: Performed By: #### L 100.0100, L500.4050 ####[facility] [address] [place], [address] T PROT 7.6 g/dL Normal 6.4-8.2 [facility] Comment on above: Performed By: #### L 100.0100, L500.4050 ####[facility] [address] [place], [address] Urea nitrogen [Mass/Vol] 12 mg/dL Normal 7-18 [facility] Comment on above: Performed By: #### L 100.0100, L500.4050 ####[facility] [address] [place], [address] HIP, UNI W/ Pelvis 2-3 Views on 05-10-2024 HIP, UNI W/ Pelvis 2-3 Views Normal [facility] Inital Evaluation (1) - PTon 05-10-2024 Inital Evaluation (1) - PT Normal [facility] Absolute lymphocyte countOrd ered By: Manisha Navas on 12-11-2023 Lymphocytes Auto (Unsp spec) [#/Vol] 1.65 10*3/uL 0.83-4.51 [facility] Automated lymphocyte count a s percentage of total leukocytesOrdered By: Manisha Navas on 12-11-2023 Lymphocytes/100 WBC Auto (Unsp spec) 30.4 % 19-41 [facility] Basophil percentageOrdered B y: Manisha Navas on 12-11-2023 Basophils/100 WBC (Bld) 0.7 % 0-1 [facility] Bilirubin [Mass/Vol] 1.00 mg/dL 0.20-1.00 [facility] Comment on above: For patients on eltr ombopag therapy, use of Dimension [place] TBIL is not recommended. Chloride [Moles/Vol] 105 mmol/L 98-107 [facility] Cholesterol [Mass/Vol] 186 mg/dL <200 [facility] Comment on above: <200 mg/dL Desirable 200-240 mg/dL Borderline >240 mg/dL High Risk Eosinophils/100 WBC (Bld) 3.1 % 0-5 [facility] Glucose [Mass/Vol] 106 mg/dL 74-106 [facility] Comment on above: Fasting Glucose resu lt from 100 to 125 mg/dL suggests IMPAIRED HOMEOSTASIS per A.D.A. criteria. Hemoglobin (Bld) [Mass/Vol] 12.6 g/dL 12.0-15.0 [facility] Monocytes/100 WBC (Bld) 14.0 % 0-10 [facility] Neutrophils (Bld) [#/Vol] 2.8 10*3/uL 2.0-7.7 [facility] Neutrophils/100 WBC (Bld) 51.6 % 47-70 [facility] Potassium [Moles/Vol] 4.1 mmol/L 3.5-5.1 [facility] Protein [Mass/Vol] 7.0 g/dL 6.4-8.2 [facility] Sodium [Moles/Vol] 138 mmol/L 136-145 [facility] Triglyceride [Mass/Vol] 53 mg/dL <199 [facility] Comment on above: The drugs N-Acetylcy steine and Metamizole may falsely depress this assay.Serum Triglycerides Reference Interval Normal <150 mg/dL Borderline high 150 - 199 mg/dL High 200 - 499 mg/dL Very High > or = 500 mg/dL WBC (Bld) [#/Vol] 5.4 10*3/uL 4.4-11.0 [facility] Determination of erythrocyte mean corpuscular volume (MCV)Ordered By: Manisha Navas on 12-11-2023 MCV (RBC) [Entitic vol] 94.8 fL 81-99 [facility] Erythrocyte distribution wid th ratioOrdered By: [facility] Yosef on 12-11-2023 Erythrocyte distribution width (RBC) [Ratio] 14.4 % 11.6-14.6 [facility] Erythrocyte distribution wid th standard deviationOrdered By: [facility] on 12-11-2023 Erythrocyte distribution width (RBC) [Entitic vol] 49.1 fL 35.1-43.9 [facility] Hematocrit Auto (Bld) [Volum e fraction]Ordered By: [facility] Yosef on 12-11-2023 Hematocrit (Bld) [Volume fraction] 38.5 % 37-47 [facility] Immature granulocytes/100 WB C Auto (Bld)Ordered By: [facility] on 12-11-2023 Immature granulocytes/100 WBC (Bld) 0.200 % 0.0-0.9 [facility] Comment on above: IG% - Immature Granu locytes (promyelocytes, myelocytes and metamyelocytes) > 1% indicates that a LEFT SHIFT is Present. Laboratory - Chemistry and C hemistry - challengeOrdered By: [facility] Yosef on 12-11-2023 Albumin/Globulin [Mass ratio] 1.1 {ratio} 0.9-2.4 [facility] ALP [Catalytic activity/Vol] 44 U/L 45-117 [facility] ALT [Catalytic activity/Vol] 28 U/L 13-56 [facility] Cholesterol in HDL [Mass/Vol] 58 mg/dL >40 [facility] Comment on above: The drugs N-Acetylcy steine and Metamizole may falsely depress this assay. Reference Range HDL <40 mg/dL Low HDL Cholesterol HDL >or= 60 mg/dL High HDL Cholesterol Cholesterol in LDL [Mass/Vol] 117 mg/dL 0-130 [facility] CO2 [Moles/Vol] 28.0 mmol/L 21.0-32.0 [facility] Globulin (S) [Mass/Vol] 3.3 g/dL 2.2-4.2 [facility] Urea nitrogen/Creatinine [Mass ratio] 20.4 mg/mg 10-20 [facility] Laboratory - Hematology and Cell countsOrdered By: Manishating Navas on 12-11-2023 MCH (RBC) [Entitic mass] 31.0 pg 27.0-32.0 [facility] MCHC (RBC) [Mass/Vol] 32.7 g/dL 32-36 [facility] Nucleated RBC/100 WBC (Bld) [Ratio] 0 % 0-5 [facility] Platelet mean volume (Bld) [Entitic vol] 8.8 fL 6.2-12.0 [facility] Platelets (Bld) [#/Vol] 282 10*3/uL 150-450 [facility] No Panel InformationOrdered By: Manisha Navas on 12-11-2023 Estimated GFR (MDRD) Amer 77 mL/min >60 [facility] Comment on above: GFR Calc Estimated GFR (MDRD) Non-Af Amer 63 mL/min >60 [facility] Comment on above: Non- GFR Calc Vitamin D 25-Hydroxy 52.0 ng/mL [facility] Comment on above: Vitamin D 25(OH) Sta tus Range Deficiency <20 ng/mL (50nmol/L) Insufficiency 20 - 30 ng/mL (50 - 75 nmol/L) Sufficiency 30 - 100 ng/mL (75 - 250 nmol/L) Toxicity >100 ng/mL (>250 nmol/L) VLDL Cholesterol 11 mg/dL 5-40 [facility] RBC Auto (Bld) [#/Vol]Ordere d By: Manisha Navas on 12-11-2023 RBC (Bld) [#/Vol] 4.06 10*6/uL 4.2-5.4 [facility] Serum or plasma calcium bennie urement (mass/volume)Ordered By: Manisha Navas on 12-11-2023 Calcium [Mass/Vol] 8.6 mg/dL 8.5-10.1 [facility] Serum or plasma creatinine m easurement (mass/volume)Ordered By: Manisha Navas on 12-11-2023 Creatinine [Mass/Vol] 0.93 mg/dL 0.55-1.02 [facility] Comment on above: The validity of the calculated GFR & GFRAA in patients over 70 years has not been determined. Clinical correlation is essential. Serum or plasma thyroid stim ulating hormone (TSH) measurement (units/volume)Ordered By: Manisha Navas on 12-11-2023 TSH Qn 1.37 uIU/mL 0.358-3.74 [facility] Serum or plasma urea nitroge n measurement (mass/volume)Ordered By: Manisha Navas on 12-11-2023 Urea nitrogen [Mass/Vol] 19 mg/dL 7-18 [facility] Thin prep Papanicolaou smear with manual screeningOrdered By: Manisha Navas on 12-11-2023 Thin prep Papanicolaou smear with manual screening 3.7 g/dL 3.2-5.0 [facility] Thin prep Papanicolaou smear with manual screening 18 U/L 15-37 [facility] Thin prep Papanicolaou smear with manual screening 5 5-15 [facility] Absolute lymphocyte countOrd ered By: Manihsa Navas on 09-08-2023 Lymphocytes Auto (Unsp spec) [#/Vol] 1.24 10*3/uL 0.83-4.51 [facility] Basophil percentageOrdered B y: Manisha Navas on 09-08-2023 Basophils/100 WBC (Bld) 0.9 % 0-1 [facility] Bilirubin [Mass/Vol] 0.70 mg/dL 0.20-1.00 [facility] Comment on above: For patients on eltr ombopag therapy, use of Dimension [place] TBIL is not recommended. Chloride [Moles/Vol] 108 mmol/L 98-107 [facility] Eosinophils/100 WBC (Bld) 5.0 % 0-5 [facility] Glucose [Mass/Vol] 93 mg/dL 74-106 [facility] Neutrophils (Bld) [#/Vol] 2.5 10*3/uL 2.0-7.7 [facility] Neutrophils/100 WBC (Bld) 54.5 % 47-70 [facility] Potassium [Moles/Vol] 3.8 mmol/L 3.5-5.1 [facility] Protein [Mass/Vol] 7.1 g/dL 6.4-8.2 [facility] Sodium [Moles/Vol] 141 mmol/L 136-145 [facility] WBC (Bld) [#/Vol] 4.6 10*3/uL 4.4-11.0 [facility] Blood erythrocytes count (nu mber/volume)Ordered By: Manisha Navas on 09-08-2023 RBC (Bld) [#/Vol] 4.31 10*6/uL 4.2-5.4 [facility] Blood hemoglobin measurement (mass/volume)Ordered By: Manisha Navas on 09-08-2023 Hemoglobin (Bld) [Mass/Vol] 12.7 g/dL 12.0-15.0 [facility] Blood lymphocytes/100 leukoc ytesOrdered By: Manishating Navas on 09-08-2023 Lymphocytes/100 WBC (Bld) 27.1 % 19-41 [facility] Blood monocytes/100 leukocyt esOrdered By: Manishating Navas on 09-08-2023 Monocytes/100 WBC (Bld) 12.3 % 0-10 [facility] Blood platelet mean volumeOr dered By: Manisha Navas on 09-08-2023 Platelet mean volume (Bld) [Entitic vol] 9.0 fL 6.2-12.0 [facility] Determination of erythrocyte mean corpuscular volume (MCV)Ordered By: Manisha Navas on 09-08-2023 MCV (RBC) [Entitic vol] 92.1 fL 81-99 [facility] Hematocrit Auto (Bld) [Volum e fraction]Ordered By: Manisha Navas on 09-08-2023 Hematocrit (Bld) [Volume fraction] 39.7 % 37-47 [facility] Laboratory - Chemistry and C hemistry - challengeOrdered By: Manisha Navas on 09-08-2023 ALP [Catalytic activity/Vol] 55 U/L 45-117 [facility] ALT [Catalytic activity/Vol] 21 U/L 13-56 [facility] CO2 [Moles/Vol] 29.0 mmol/L 21.0-32.0 [facility] Globulin (S) [Mass/Vol] 3.4 g/dL 2.2-4.2 [facility] Urea nitrogen/Creatinine [Mass ratio] 14.2 mg/mg 10-20 [facility] Laboratory - Hematology and Cell countsOrdered By: Manisha Navas on 01-05-2024 Erythrocyte distribution width (RBC) [Entitic vol] 49.3 fL 35.1-43.9 [facility] Erythrocyte distribution width (RBC) [Ratio] 14.6 % 11.6-14.6 [facility] Immature granulocytes/100 WBC (Bld) 0.200 % 0.0-0.9 [facility] Comment on above: IG% - Immature Granu locytes (promyelocytes, myelocytes and metamyelocytes) > 1% indicates that a LEFT SHIFT is Present. MCH (RBC) [Entitic mass] 29.5 pg 27.0-32.0 [facility] Nucleated RBC/100 WBC (Bld) [Ratio] 0 % 0-5 [facility] MCHC Auto (RBC) [Mass/Vol]Or dered By: Manisha Navas on 09-08-2023 MCHC (RBC) [Mass/Vol] 32.0 g/dL 32-36 [facility] No Panel InformationOrdered By: Manisha Navas on 09-08-2023 Estimated GFR (MDRD) Amer 78 mL/min >60 [facility] Comment on above: GFR Calc Estimated GFR (MDRD) Non-Af Amer 64 mL/min >60 [facility] Comment on above: Non- GFR Calc Platelets bldOrdered By: Judie Navas on 09-08-2023 Platelets (Bld) [#/Vol] 261 10*3/uL 150-450 [facility] Serum or plasma albumin bennie urement (mass/volume)Ordered By: Manisha Navas on 09-08-2023 Albumin [Mass/Vol] 3.7 g/dL 3.2-5.0 [facility] Serum or plasma albumin/glob ulin mass ratioOrdered By: Manisha Navas on 09-08-2023 Albumin/Globulin [Mass ratio] 1.1 {ratio} 0.9-2.4 [facility] Serum or plasma calcium bennie urement (mass/volume)Ordered By: Manisha Navas on 09-08-2023 Calcium [Mass/Vol] 9.3 mg/dL 8.5-10.1 [facility] Serum or plasma creatinine m easurement (mass/volume)Ordered By: Manisha Navas on 09-08-2023 Creatinine [Mass/Vol] 0.92 mg/dL 0.55-1.02 [facility] Comment on above: The validity of the calculated GFR & GFRAA in patients over 70 years has not been determined. Clinical correlation is essential. Serum or plasma urea nitroge n measurement (mass/volume)Ordered By: Manisha Navas on 09-08-2023 Urea nitrogen [Mass/Vol] 13 mg/dL 7-18 [facility] Thin prep Papanicolaou smear with manual screeningOrdered By: Manisha Navas on 09-08-2023 Thin prep Papanicolaou smear with manual screening 17 U/L 15-37 [facility] Thin prep Papanicolaou smear with manual screening 4 5-15 [facility] Absolute lymphocyte countOrd ered By: Manisha Navas on 06-16-2023 Lymphocytes Auto (Unsp spec) [#/Vol] 1.37 10*3/uL 0.83-4.51 [facility] Basophil percentageOrdered B y: Manisha Navas on 06-16-2023 Basophils/100 WBC (Bld) 0.9 % 0-1 [facility] Bilirubin [Mass/Vol] 0.80 mg/dL 0.20-1.00 [facility] Comment on above: For patients on eltr ombopag therapy, use of Dimension [place] TBIL is not recommended. Chloride [Moles/Vol] 106 mmol/L 98-107 [facility] Eosinophils/100 WBC (Bld) 4.7 % 0-5 [facility] Glucose [Mass/Vol] 104 mg/dL 74-106 [facility] Comment on above: Fasting Glucose resu lt from 100 to 125 mg/dL suggests IMPAIRED HOMEOSTASIS per A.D.A. criteria. Neutrophils (Bld) [#/Vol] 3.0 10*3/uL 2.0-7.7 [facility] Neutrophils/100 WBC (Bld) 55.5 % 47-70 [facility] Potassium [Moles/Vol] 4.0 mmol/L 3.5-5.1 [facility] Protein [Mass/Vol] 7.3 g/dL 6.4-8.2 [facility] Sodium [Moles/Vol] 139 mmol/L 136-145 [facility] WBC (Bld) [#/Vol] 5.4 10*3/uL 4.4-11.0 [facility] Blood erythrocytes count (nu mber/volume)Ordered By: Manisha Navas on 06-16-2023 RBC (Bld) [#/Vol] 4.62 10*6/uL 4.2-5.4 [facility] Blood hemoglobin measurement (mass/volume)Ordered By: Manisha Navas on 06-16-2023 Hemoglobin (Bld) [Mass/Vol] 13.4 g/dL 12.0-15.0 [facility] Blood lymphocytes/100 leukoc ytesOrdered By: Manishating Navas on 06-16-2023 Lymphocytes/100 WBC (Bld) 25.6 % 19-41 [facility] Blood monocytes/100 leukocyt esOrdered By: Manishating Navas on 06-16-2023 Monocytes/100 WBC (Bld) 12.9 % 0-10 [facility] Blood platelet mean volumeOr dered By: Manisha Navas on 06-16-2023 Platelet mean volume (Bld) [Entitic vol] 9.1 fL 6.2-12.0 [facility] Determination of erythrocyte mean corpuscular volume (MCV)Ordered By: Manisha Navas on 06-16-2023 MCV (RBC) [Entitic vol] 92.9 fL 81-99 [facility] Hematocrit Auto (Bld) [Volum e fraction]Ordered By: Manisha Navas on 06-16-2023 Hematocrit (Bld) [Volume fraction] 42.9 % 37-47 [facility] Laboratory - Chemistry and C hemistry - challengeOrdered By: Manishating Navas on 06-16-2023 ALP [Catalytic activity/Vol] 51 U/L 45-117 [facility] ALT [Catalytic activity/Vol] 19 U/L 13-56 [facility] CO2 [Moles/Vol] 28.0 mmol/L 21.0-32.0 [facility] Globulin (S) [Mass/Vol] 3.7 g/dL 2.2-4.2 [facility] Urea nitrogen/Creatinine [Mass ratio] 15.0 mg/mg 10-20 [facility] Laboratory - Hematology and Cell countsOrdered By: Manisha Navas on 06-16-2023 Erythrocyte distribution width (RBC) [Entitic vol] 43.7 fL 35.1-43.9 [facility] Erythrocyte distribution width (RBC) [Ratio] 12.8 % 11.6-14.6 [facility] Immature granulocytes/100 WBC (Bld) 0.400 % 0.0-0.9 [facility] Comment on above: IG% - Immature Granu locytes (promyelocytes, myelocytes and metamyelocytes) > 1% indicates that a LEFT SHIFT is Present. MCH (RBC) [Entitic mass] 29.0 pg 27.0-32.0 [facility] Nucleated RBC/100 WBC (Bld) [Ratio] 0 % 0-5 [facility] MCHC Auto (RBC) [Mass/Vol]Or dered By: Manisha Navas on 06-16-2023 MCHC (RBC) [Mass/Vol] 31.2 g/dL 32-36 [facility] No Panel InformationOrdered By: Manisha Navas on 06-16-2023 Estimated GFR (MDRD) Amer 76 mL/min >60 [facility] Comment on above: GFR Calc Estimated GFR (MDRD) Non-Af Amer 63 mL/min >60 [facility] Comment on above: Non- GFR Calc Platelets bldOrdered By: Judie Navas on 06-16-2023 Platelets (Bld) [#/Vol] 271 10*3/uL 150-450 [facility] Serum or plasma albumin bennie urement (mass/volume)Ordered By: Manisha Navas on 06-16-2023 Albumin [Mass/Vol] 3.6 g/dL 3.2-5.0 [facility] Serum or plasma albumin/glob ulin mass ratioOrdered By: Manisha Navas on 06-16-2023 Albumin/Globulin [Mass ratio] 1.0 {ratio} 0.9-2.4 [facility] Serum or plasma calcium bennie urement (mass/volume)Ordered By: Manisha Navas on 06-16-2023 Calcium [Mass/Vol] 9.5 mg/dL 8.5-10.1 [facility] Serum or plasma creatinine m easurement (mass/volume)Ordered By: Manisha Navas on 06-16-2023 Creatinine [Mass/Vol] 0.94 mg/dL 0.55-1.02 [facility] Comment on above: The validity of the calculated GFR & GFRAA in patients over 70 years has not been determined. Clinical correlation is essential. Serum or plasma urea nitroge n measurement (mass/volume)Ordered By: Manisha Navas on 06-16-2023 Urea nitrogen [Mass/Vol] 14 mg/dL 7-18 [facility] Thin prep Papanicolaou smear with manual screeningOrdered By: Manishating Navas on 06-16-2023 Thin prep Papanicolaou smear with manual screening 11 U/L 15-37 [facility] Thin prep Papanicolaou smear with manual screening 5 5-15 [facility] Absolute lymphocyte countOrd ered By: Ramu Romero on 06-03-2023 Lymphocytes Auto (Unsp spec) [#/Vol] 1.13 10*3/uL 0.83-4.51 [facility] Basophil percentageOrdered B y: Ramu Romero on 06-03-2023 Basophils/100 WBC (Bld) 0.2 % 0-1 [facility] Chloride [Moles/Vol] 105 mmol/L 98-107 [facility] Eosinophils/100 WBC (Bld) 0.2 % 0-5 [facility] Glucose [Mass/Vol] 113 mg/dL 74-106 [facility] Comment on above: Fasting Glucose resu lt from 100 to 125 mg/dL suggests IMPAIRED HOMEOSTASIS per A.D.A. criteria. Neutrophils (Bld) [#/Vol] 6.8 10*3/uL 2.0-7.7 [facility] Neutrophils/100 WBC (Bld) 74.8 % 47-70 [facility] Potassium [Moles/Vol] 3.8 mmol/L 3.5-5.1 [facility] Sodium [Moles/Vol] 136 mmol/L 136-145 [facility] WBC (Bld) [#/Vol] 9.0 10*3/uL 4.4-11.0 [facility] Blood erythrocytes count (nu mber/volume)Ordered By: Ramu Romero on 06-03-2023 RBC (Bld) [#/Vol] 4.53 10*6/uL 4.2-5.4 [facility] Blood hemoglobin measurement (mass/volume)Ordered By: Ramu Romero on 06-03-2023 Hemoglobin (Bld) [Mass/Vol] 13.7 g/dL 12.0-15.0 [facility] Blood lymphocytes/100 leukoc ytesOrdered By: Ramu Romero on 06-03-2023 Lymphocytes/100 WBC (Bld) 12.5 % 19-41 [facility] Blood monocytes/100 leukocyt esOrdered By: Ramu Romero on 06-03-2023 Monocytes/100 WBC (Bld) 12.1 % 0-10 [facility] Blood platelet mean volumeOr dered By: Ramu Romero on 06-03-2023 Platelet mean volume (Bld) [Entitic vol] 9.2 fL 6.2-12.0 [facility] Determination of erythrocyte mean corpuscular volume (MCV)Ordered By: Ramu Romero on 06-03-2023 MCV (RBC) [Entitic vol] 90.7 fL 81-99 [facility] Erythrocyte sedimentation ra teOrdered By: Ramu Romero on 06-03-2023 ESR (Bld) [Velocity] 15 mm/h 0-30 [facility] Hematocrit Auto (Bld) [Volum e fraction]Ordered By: Ramu Romero on 06-03-2023 Hematocrit (Bld) [Volume fraction] 41.1 % 37-47 [facility] Laboratory - Chemistry and C hemistry - challengeOrdered By: Ramu Romero on 06-03-2023 CO2 [Moles/Vol] 29.0 mmol/L 21.0-32.0 [facility] Urea nitrogen/Creatinine [Mass ratio] 14.0 mg/mg 10-20 [facility] Laboratory - Hematology and Cell countsOrdered By: Ramu Romero on 06-03-2023 Erythrocyte distribution width (RBC) [Entitic vol] 42.4 fL 35.1-43.9 [facility] Erythrocyte distribution width (RBC) [Ratio] 12.8 % 11.6-14.6 [facility] Immature granulocytes/100 WBC (Bld) 0.200 % 0.0-0.9 [facility] Comment on above: IG% - Immature Granu locytes (promyelocytes, myelocytes and metamyelocytes) > 1% indicates that a LEFT SHIFT is Present. MCH (RBC) [Entitic mass] 30.2 pg 27.0-32.0 [facility] Nucleated RBC/100 WBC (Bld) [Ratio] 0 % 0-5 [facility] MCHC Auto (RBC) [Mass/Vol]Or dered By: Ramu Romero on 06-03-2023 MCHC (RBC) [Mass/Vol] 33.3 g/dL 32-36 [facility] No Panel InformationOrdered By: Ramu Romero on 06-03-2023 Estimated Creatinine Clearance Calc 74.40 ml/min [facility] Estimated GFR (MDRD) Amer 77 mL/min >60 [facility] Comment on above: GFR Calc Estimated GFR (MDRD) Non-Af Amer 63 mL/min >60 [facility] Comment on above: Non- GFR Calc Platelets bldOrdered By: Brian Romero on 06-03-2023 Platelets (Bld) [#/Vol] 223 10*3/uL 150-450 [facility] Serum or plasma C reactive p rotein measurement (mass/volume)Ordered By: Ramu Romero on 06-03-2023 CRP [Mass/Vol] 17.00 mg/L 0.0-3.0 [facility] Comment on above: C-Reactive Protein ( CRP) provides useful information for thediagnosis, therapy and monitoring of inflammatory processesand associated diseases. For the evaluation of Relative Riskfor Cardiovascular Disease, a High Sensitivity CRP (HSCRP)should be ordered. Serum or plasma calcium bennie urement (mass/volume)Ordered By: Ramu Romero on 06-03-2023 Calcium [Mass/Vol] 8.7 mg/dL 8.5-10.1 [facility] Serum or plasma creatinine m easurement (mass/volume)Ordered By: Ramu Romero on 06-03-2023 Creatinine [Mass/Vol] 0.93 mg/dL 0.55-1.02 [facility] Comment on above: The validity of the calculated GFR & GFRAA in patients over 70 years has not been determined. Clinical correlation is essential. Serum or plasma urea nitroge n measurement (mass/volume)Ordered By: Ramu Romero on 06-03-2023 Urea nitrogen [Mass/Vol] 13 mg/dL 7-18 [facility] Serum or plasma uric acid me asurement (mass/volume)Ordered By: Ramu Romero on 06-03-2023 Urate [Mass/Vol] 3.7 mg/dL 2.6-6.0 [facility] Comment on above: The drugs N-Acetylcy steine and Metamizole may falsely depress this assay. Thin prep Papanicolaou smear with manual screeningOrdered By: Ramu Romero on 06-03-2023 Thin prep Papanicolaou smear with manual screening 2 5-15 [facility] Absolute lymphocyte countOrd ered By: Manisha Navas on 03-22-2023 Lymphocytes Auto (Unsp spec) [#/Vol] 1.53 10*3/uL 0.83-4.51 [facility] Basophil percentageOrdered B y: Manisha Navas on 03-22-2023 Basophils/100 WBC (Bld) 1.0 % 0-1 [facility] Bilirubin [Mass/Vol] 0.90 mg/dL 0.20-1.00 [facility] Comment on above: For patients on eltr ombopag therapy, use of Dimension [place] TBIL is not recommended. Chloride [Moles/Vol] 106 mmol/L 98-107 [facility] Eosinophils/100 WBC (Bld) 3.8 % 0-5 [facility] Glucose [Mass/Vol] 92 mg/dL 74-106 [facility] Neutrophils (Bld) [#/Vol] 2.4 10*3/uL 2.0-7.7 [facility] Neutrophils/100 WBC (Bld) 50.4 % 47-70 [facility] Potassium [Moles/Vol] 4.1 mmol/L 3.5-5.1 [facility] Protein [Mass/Vol] 6.9 g/dL 6.4-8.2 [facility] Sodium [Moles/Vol] 141 mmol/L 136-145 [facility] WBC (Bld) [#/Vol] 4.8 10*3/uL 4.4-11.0 [facility] Blood erythrocytes count (nu mber/volume)Ordered By: Manisha Navas on 03-22-2023 RBC (Bld) [#/Vol] 4.34 10*6/uL 4.2-5.4 [facility] Blood hemoglobin measurement (mass/volume)Ordered By: Manisha Navas on 03-22-2023 Hemoglobin (Bld) [Mass/Vol] 13.1 g/dL 12.0-15.0 [facility] Blood lymphocytes/100 leukoc ytesOrdered By: Manishating Navas on 03-22-2023 Lymphocytes/100 WBC (Bld) 31.9 % 19-41 [facility] Blood monocytes/100 leukocyt esOrdered By: Manishating Navas on 03-22-2023 Monocytes/100 WBC (Bld) 12.7 % 0-10 [facility] Blood platelet mean volumeOr dered By: Manisha Navas on 03-22-2023 Platelet mean volume (Bld) [Entitic vol] 9.5 fL 6.2-12.0 [facility] Determination of erythrocyte mean corpuscular volume (MCV)Ordered By: Manisha Navas on 03-22-2023 MCV (RBC) [Entitic vol] 90.8 fL 81-99 [facility] Hematocrit Auto (Bld) [Volum e fraction]Ordered By: Manisha Navas on 03-22-2023 Hematocrit (Bld) [Volume fraction] 39.4 % 37-47 [facility] Laboratory - Chemistry and C hemistry - challengeOrdered By: Manisha Navas on 03-22-2023 ALP [Catalytic activity/Vol] 51 U/L 45-117 [facility] ALT [Catalytic activity/Vol] 19 U/L 13-56 [facility] CO2 [Moles/Vol] 29.0 mmol/L 21.0-32.0 [facility] Globulin (S) [Mass/Vol] 3.2 g/dL 2.2-4.2 [facility] Urea nitrogen/Creatinine [Mass ratio] 15.0 mg/mg 10-20 [facility] Laboratory - Hematology and Cell countsOrdered By: Manisha Navas on 03-22-2023 Erythrocyte distribution width (RBC) [Entitic vol] 42.5 fL 35.1-43.9 [facility] Erythrocyte distribution width (RBC) [Ratio] 12.9 % 11.6-14.6 [facility] Immature granulocytes/100 WBC (Bld) 0.200 % 0.0-0.9 [facility] Comment on above: IG% - Immature Granu locytes (promyelocytes, myelocytes and metamyelocytes) > 1% indicates that a LEFT SHIFT is Present. MCH (RBC) [Entitic mass] 30.2 pg 27.0-32.0 [facility] Nucleated RBC/100 WBC (Bld) [Ratio] 0 % 0-5 [facility] MCHC Auto (RBC) [Mass/Vol]Or dered By: Manisha Navas on 03-22-2023 MCHC (RBC) [Mass/Vol] 33.2 g/dL 32-36 [facility] No Panel InformationOrdered By: Manisha Navas on 03-22-2023 Estimated GFR (MDRD) Amer 76 mL/min >60 [facility] Comment on above: GFR Calc Estimated GFR (MDRD) Non-Af Amer 63 mL/min >60 [facility] Comment on above: Non- GFR Calc Platelets bldOrdered By: Judie Navas on 03-22-2023 Platelets (Bld) [#/Vol] 217 10*3/uL 150-450 [facility] Serum or plasma albumin bennie urement (mass/volume)Ordered By: Manisha Navas on 03-22-2023 Albumin [Mass/Vol] 3.7 g/dL 3.2-5.0 [facility] Serum or plasma albumin/glob ulin mass ratioOrdered By: Manisha Navas on 03-22-2023 Albumin/Globulin [Mass ratio] 1.2 {ratio} 0.9-2.4 [facility] Serum or plasma calcium bennie urement (mass/volume)Ordered By: Manisha Navas on 03-22-2023 Calcium [Mass/Vol] 8.8 mg/dL 8.5-10.1 [facility] Serum or plasma creatinine m easurement (mass/volume)Ordered By: Manisha Navas on 03-22-2023 Creatinine [Mass/Vol] 0.94 mg/dL 0.55-1.02 [facility] Comment on above: The validity of the calculated GFR & GFRAA in patients over 70 years has not been determined. Clinical correlation is essential. Serum or plasma urea nitroge n measurement (mass/volume)Ordered By: Manisha Navas on 03-22-2023 Urea nitrogen [Mass/Vol] 14 mg/dL 7-18 [facility] Thin prep Papanicolaou smear with manual screeningOrdered By: Manisha Navas on 03-22-2023 Thin prep Papanicolaou smear with manual screening 17 U/L 15-37 [facility] Thin prep Papanicolaou smear with manual screening 6 5-15 [facility] Absolute lymphocyte countOrd ered By: Dr. Navas on 12-28-2022 Lymphocytes Auto (Unsp spec) [#/Vol] 1.59 10*3/uL 0.83-4.51 [facility] Basophil percentageOrdered B y: Dr. Navas on 12-28-2022 Basophils/100 WBC (Bld) 0.9 % 0-1 [facility] Bilirubin [Mass/Vol] 0.80 mg/dL 0.20-1.00 [facility] Comment on above: For patients on eltr ombopag therapy, use of Dimension [place] TBIL is not recommended. Chloride [Moles/Vol] 106 mmol/L 98-107 [facility] Eosinophils/100 WBC (Bld) 1.2 % 0-5 [facility] Glucose [Mass/Vol] 100 mg/dL 74-106 [facility] Comment on above: Fasting Glucose resu lt from 100 to 125 mg/dL suggests IMPAIRED HOMEOSTASIS per A.D.A. criteria. Neutrophils (Bld) [#/Vol] 3.3 10*3/uL 2.0-7.7 [facility] Neutrophils/100 WBC (Bld) 58.8 % 47-70 [facility] Potassium [Moles/Vol] 4.3 mmol/L 3.5-5.1 [facility] Protein [Mass/Vol] 7.3 g/dL 6.4-8.2 [facility] Sodium [Moles/Vol] 136 mmol/L 136-145 [facility] WBC (Bld) [#/Vol] 5.7 10*3/uL 4.4-11.0 [facility] Blood erythrocytes count (nu mber/volume)Ordered By: Dr. Navas on 12-28-2022 RBC (Bld) [#/Vol] 4.57 10*6/uL 4.2-5.4 [facility] Blood hemoglobin measurement (mass/volume)Ordered By: Dr. Navas on 12-28-2022 Hemoglobin (Bld) [Mass/Vol] 13.6 g/dL 12.0-15.0 [facility] Blood lymphocytes/100 leukoc ytesOrdered By: Dr. Navas on 12-28-2022 Lymphocytes/100 WBC (Bld) 28.0 % 19-41 [facility] Blood monocytes/100 leukocyt esOrdered By: Dr. Navas on 12-28-2022 Monocytes/100 WBC (Bld) 10.9 % 0-10 [facility] Blood platelet mean volumeOr dered By: Dr. Navas on 12-28-2022 Platelet mean volume (Bld) [Entitic vol] 9.3 fL 6.2-12.0 [facility] Determination of erythrocyte mean corpuscular volume (MCV)Ordered By: Dr. Navas on 12-28-2022 MCV (RBC) [Entitic vol] 92.3 fL 81-99 [facility] Hematocrit Auto (Bld) [Volum e fraction]Ordered By: Dr. Navas on 12-28-2022 Hematocrit (Bld) [Volume fraction] 42.2 % 37-47 [facility] Laboratory - Chemistry and C hemistry - challengeOrdered By: Dr. Navas on 12-28-2022 ALP [Catalytic activity/Vol] 56 U/L 45-117 [facility] ALT [Catalytic activity/Vol] 21 U/L 13-56 [facility] CO2 [Moles/Vol] 28.0 mmol/L 21.0-32.0 [facility] Globulin (S) [Mass/Vol] 3.7 g/dL 2.2-4.2 [facility] Urea nitrogen/Creatinine [Mass ratio] 18.2 mg/mg 10-20 [facility] Laboratory - Hematology and Cell countsOrdered By: Dr. Navas on 12-28-2022 Erythrocyte distribution width (RBC) [Entitic vol] 44.2 fL 35.1-43.9 [facility] Erythrocyte distribution width (RBC) [Ratio] 13.0 % 11.6-14.6 [facility] Immature granulocytes/100 WBC (Bld) 0.200 % 0.0-0.9 [facility] Comment on above: IG% - Immature Granu locytes (promyelocytes, myelocytes and metamyelocytes) > 1% indicates that a LEFT SHIFT is Present. MCH (RBC) [Entitic mass] 29.8 pg 27.0-32.0 [facility] Nucleated RBC/100 WBC (Bld) [Ratio] 0 % 0-5 [facility] MCHC Auto (RBC) [Mass/Vol]Or dered By: Dr. Navas on 12-28-2022 MCHC (RBC) [Mass/Vol] 32.2 g/dL 32-36 [facility] No Panel InformationOrdered By: Dr. Navas on 12-28-2022 Estimated GFR (MDRD) Amer 82 mL/min >60 [facility] Comment on above: GFR Calc Estimated GFR (MDRD) Non-Af Amer 68 mL/min >60 [facility] Comment on above: Non- GFR Calc Platelets bldOrdered By: Dr. Navas on 12-28-2022 Platelets (Bld) [#/Vol] 248 10*3/uL 150-450 [facility] Serum or plasma albumin bennie urement (mass/volume)Ordered By: Dr. Navas on 12-28-2022 Albumin [Mass/Vol] 3.6 g/dL 3.2-5.0 [facility] Serum or plasma albumin/glob ulin mass ratioOrdered By: Dr. Navas on 12-28-2022 Albumin/Globulin [Mass ratio] 1.0 {ratio} 0.9-2.4 [facility] Serum or plasma calcium bennie urement (mass/volume)Ordered By: Dr. Navas on 12-28-2022 Calcium [Mass/Vol] 8.9 mg/dL 8.5-10.1 [facility] Serum or plasma creatinine m easurement (mass/volume)Ordered By: Dr. Navas on 12-28-2022 Creatinine [Mass/Vol] 0.88 mg/dL 0.55-1.02 [facility] Comment on above: The validity of the calculated GFR & GFRAA in patients over 70 years has not been determined. Clinical correlation is essential. Serum or plasma urea nitroge n measurement (mass/volume)Ordered By: Dr. Navas on 12-28-2022 Urea nitrogen [Mass/Vol] 16 mg/dL 7-18 [facility] Thin prep Papanicolaou smear with manual screeningOrdered By: Dr. Navas on 12-28-2022 Thin prep Papanicolaou smear with manual screening 14 U/L 15-37 [facility] Thin prep Papanicolaou smear with manual screening 2 5-15 [facility] Absolute lymphocyte countOrd ered By: Dr. Navas on 09-29-2022 Lymphocytes Auto (Unsp spec) [#/Vol] 1.76 10*3/uL 0.83-4.51 [facility] Basophil percentageOrdered B y: Dr. Navas on 09-29-2022 Basophils/100 WBC (Bld) 0.9 % 0-1 [facility] Bilirubin [Mass/Vol] 0.60 mg/dL 0.20-1.00 [facility] Comment on above: For patients on eltr ombopag therapy, use of Dimension [place] TBIL is not recommended. Chloride [Moles/Vol] 105 mmol/L 98-107 [facility] Eosinophils/100 WBC (Bld) 1.7 % 0-5 [facility] Glucose [Mass/Vol] 95 mg/dL 74-106 [facility] Neutrophils (Bld) [#/Vol] 2.8 10*3/uL 2.0-7.7 [facility] Neutrophils/100 WBC (Bld) 51.4 % 47-70 [facility] Potassium [Moles/Vol] 4.1 mmol/L 3.5-5.1 [facility] Protein [Mass/Vol] 7.4 g/dL 6.4-8.2 [facility] Sodium [Moles/Vol] 141 mmol/L 136-145 [facility] WBC (Bld) [#/Vol] 5.4 10*3/uL 4.4-11.0 [facility] Blood erythrocytes count (nu mber/volume)Ordered By: Dr. Navas on 09-29-2022 RBC (Bld) [#/Vol] 4.86 10*6/uL 4.2-5.4 [facility] Blood hemoglobin measurement (mass/volume)Ordered By: Dr. Navas on 09-29-2022 Hemoglobin (Bld) [Mass/Vol] 13.8 g/dL 12.0-15.0 [facility] Blood lymphocytes/100 leukoc ytesOrdered By: Dr. Navas on 09-29-2022 Lymphocytes/100 WBC (Bld) 32.9 % 19-41 [facility] Blood monocytes/100 leukocyt esOrdered By: Dr. Navas on 09-29-2022 Monocytes/100 WBC (Bld) 12.9 % 0-10 [facility] Blood platelet mean volumeOr dered By: Dr. Navas on 09-29-2022 Platelet mean volume (Bld) [Entitic vol] 9.4 fL 6.2-12.0 [facility] Determination of erythrocyte mean corpuscular volume (MCV)Ordered By: Dr. Navas on 09-29-2022 MCV (RBC) [Entitic vol] 89.9 fL 81-99 [facility] Hematocrit Auto (Bld) [Volum e fraction]Ordered By: Dr. Navas on 09-29-2022 Hematocrit (Bld) [Volume fraction] 43.7 % 37-47 [facility] Laboratory - Chemistry and C hemistry - challengeOrdered By: Dr. Navas on 09-29-2022 ALP [Catalytic activity/Vol] 62 U/L 45-117 [facility] ALT [Catalytic activity/Vol] 19 U/L 13-56 [facility] CO2 [Moles/Vol] 29.0 mmol/L 21.0-32.0 [facility] Globulin (S) [Mass/Vol] 3.7 g/dL 2.2-4.2 [facility] Urea nitrogen/Creatinine [Mass ratio] 15.7 mg/mg 10-20 [facility] Laboratory - Hematology and Cell countsOrdered By: Dr. Navas on 09-29-2022 Erythrocyte distribution width (RBC) [Entitic vol] 43.8 fL 35.1-43.9 [facility] Erythrocyte distribution width (RBC) [Ratio] 13.3 % 11.6-14.6 [facility] Immature granulocytes/100 WBC (Bld) 0.200 % 0.0-0.9 [facility] Comment on above: IG% - Immature Granu locytes (promyelocytes, myelocytes and metamyelocytes) > 1% indicates that a LEFT SHIFT is Present. MCH (RBC) [Entitic mass] 28.4 pg 27.0-32.0 [facility] Nucleated RBC/100 WBC (Bld) [Ratio] 0 % 0-5 [facility] MCHC Auto (RBC) [Mass/Vol]Or dered By: Dr. Navas on 09-29-2022 MCHC (RBC) [Mass/Vol] 31.6 g/dL 32-36 [facility] No Panel InformationOrdered By: Dr. Navas on 09-29-2022 Estimated GFR (MDRD) Amer 69 mL/min >60 [facility] Comment on above: GFR Calc Estimated GFR (MDRD) Non-Af Amer 57 mL/min >60 [facility] Comment on above: Non- GFR Calc Platelets bldOrdered By: Dr. Navas on 09-29-2022 Platelets (Bld) [#/Vol] 255 10*3/uL 150-450 [facility] Serum or plasma albumin bennie urement (mass/volume)Ordered By: Dr. Navas on 09-29-2022 Albumin [Mass/Vol] 3.7 g/dL 3.2-5.0 [facility] Serum or plasma albumin/glob ulin mass ratioOrdered By: Dr. Navas on 09-29-2022 Albumin/Globulin [Mass ratio] 1.0 {ratio} 0.9-2.4 [facility] Serum or plasma calcium bennie urement (mass/volume)Ordered By: Dr. Navas on 09-29-2022 Calcium [Mass/Vol] 9.4 mg/dL 8.5-10.1 [facility] Serum or plasma creatinine m easurement (mass/volume)Ordered By: Dr. Navas on 09-29-2022 Creatinine [Mass/Vol] 1.02 mg/dL 0.55-1.02 [facility] Comment on above: The validity of the calculated GFR & GFRAA in patients over 70 years has not been determined. Clinical correlation is essential. Serum or plasma urea nitroge n measurement (mass/volume)Ordered By: Dr. Navas on 09-29-2022 Urea nitrogen [Mass/Vol] 16 mg/dL 7-18 [facility] Thin prep Papanicolaou smear with manual screeningOrdered By: Dr. Navas on 09-29-2022 Thin prep Papanicolaou smear with manual screening 16 U/L 15-37 [facility] Thin prep Papanicolaou smear with manual screening 7 5-15 [facility] Absolute lymphocyte countOrd ered By: Dr. Navas on 07-06-2022 Lymphocytes Auto (Unsp spec) [#/Vol] 1.60 10*3/uL 0.83-4.51 [facility] Basophil percentageOrdered B y: Dr. Navas on 07-06-2022 Basophils/100 WBC (Bld) 1.0 % 0-1 [facility] Bilirubin [Mass/Vol] 0.70 mg/dL 0.20-1.00 [facility] Comment on above: For patients on eltr ombopag therapy, use of Dimension [place] TBIL is not recommended. Chloride [Moles/Vol] 107 mmol/L 98-107 [facility] Eosinophils/100 WBC (Bld) 7.8 % 0-5 [facility] Glucose [Mass/Vol] 101 mg/dL 74-106 [facility] Comment on above: Fasting Glucose resu lt from 100 to 125 mg/dL suggests IMPAIRED HOMEOSTASIS per A.D.A. criteria. Neutrophils (Bld) [#/Vol] 2.3 10*3/uL 2.0-7.7 [facility] Neutrophils/100 WBC (Bld) 48.0 % 47-70 [facility] Potassium [Moles/Vol] 3.8 mmol/L 3.5-5.1 [facility] Protein [Mass/Vol] 7.6 g/dL 6.4-8.2 [facility] Sodium [Moles/Vol] 141 mmol/L 136-145 [facility] WBC (Bld) [#/Vol] 4.9 10*3/uL 4.4-11.0 [facility] Blood erythrocytes count (nu mber/volume)Ordered By: Dr. Navas on 07-06-2022 RBC (Bld) [#/Vol] 4.47 10*6/uL 4.2-5.4 [facility] Blood hemoglobin measurement (mass/volume)Ordered By: Dr. Navas on 07-06-2022 Hemoglobin (Bld) [Mass/Vol] 13.9 g/dL 12.0-15.0 [facility] Blood lymphocytes/100 leukoc ytesOrdered By: Dr. Navas on 07-06-2022 Lymphocytes/100 WBC (Bld) 32.8 % 19-41 [facility] Blood monocytes/100 leukocyt esOrdered By: Dr. Navas on 07-06-2022 Monocytes/100 WBC (Bld) 10.2 % 0-10 [facility] Blood platelet mean volumeOr dered By: Dr. Navas on 07-06-2022 Platelet mean volume (Bld) [Entitic vol] 9.2 fL 6.2-12.0 [facility] Determination of erythrocyte mean corpuscular volume (MCV)Ordered By: Dr. Navas on 07-06-2022 MCV (RBC) [Entitic vol] 91.7 fL 81-99 [facility] Hematocrit Auto (Bld) [Volum e fraction]Ordered By: Dr. Navas on 07-06-2022 Hematocrit (Bld) [Volume fraction] 41.0 % 37-47 [facility] Laboratory - Chemistry and C hemistry - challengeOrdered By: Dr. Navas on 07-06-2022 ALP [Catalytic activity/Vol] 53 U/L 45-117 [facility] ALT [Catalytic activity/Vol] 18 U/L 13-56 [facility] CO2 [Moles/Vol] 29.0 mmol/L 21.0-32.0 [facility] Globulin (S) [Mass/Vol] 3.9 g/dL 2.2-4.2 [facility] Urea nitrogen/Creatinine [Mass ratio] 13.6 mg/mg 10-20 [facility] Laboratory - Hematology and Cell countsOrdered By: Dr. Navas on 07-06-2022 Erythrocyte distribution width (RBC) [Entitic vol] 44.1 fL 35.1-43.9 [facility] Erythrocyte distribution width (RBC) [Ratio] 13.0 % 11.6-14.6 [facility] Immature granulocytes/100 WBC (Bld) 0.200 % 0.0-0.9 [facility] Comment on above: IG% - Immature Granu locytes (promyelocytes, myelocytes and metamyelocytes) > 1% indicates that a LEFT SHIFT is Present. MCH (RBC) [Entitic mass] 31.1 pg 27.0-32.0 [facility] Nucleated RBC/100 WBC (Bld) [Ratio] 0 % 0-5 [facility] MCHC Auto (RBC) [Mass/Vol]Or dered By: Dr. Navas on 07-06-2022 MCHC (RBC) [Mass/Vol] 33.9 g/dL 32-36 [facility] No Panel InformationOrdered By: Dr. Navas on 07-06-2022 Estimated GFR (MDRD) Amer 82 mL/min >60 [facility] Comment on above: GFR Calc Estimated GFR (MDRD) Non-Af Amer 68 mL/min >60 [facility] Comment on above: Non- GFR Calc Platelets bldOrdered By: Dr. Navas on 07-06-2022 Platelets (Bld) [#/Vol] 267 10*3/uL 150-450 [facility] Serum or plasma albumin bennie urement (mass/volume)Ordered By: Dr. Navas on 07-06-2022 Albumin [Mass/Vol] 3.7 g/dL 3.2-5.0 [facility] Serum or plasma albumin/glob ulin mass ratioOrdered By: Dr. Navas on 07-06-2022 Albumin/Globulin [Mass ratio] 0.9 {ratio} 0.9-2.4 [facility] Serum or plasma calcium bennie urement (mass/volume)Ordered By: Dr. Navas on 07-06-2022 Calcium [Mass/Vol] 9.0 mg/dL 8.5-10.1 [facility] Serum or plasma creatinine m easurement (mass/volume)Ordered By: Dr. Naavs on 07-06-2022 Creatinine [Mass/Vol] 0.88 mg/dL 0.55-1.02 [facility] Comment on above: The validity of the calculated GFR & GFRAA in patients over 70 years has not been determined. Clinical correlation is essential. Serum or plasma urea nitroge n measurement (mass/volume)Ordered By: Dr. Navas on 07-06-2022 Urea nitrogen [Mass/Vol] 12 mg/dL 7-18 [facility] Thin prep Papanicolaou smear with manual screeningOrdered By: Dr. Navas on 07-06-2022 Thin prep Papanicolaou smear with manual screening 14 U/L 15-37 [facility] Thin prep Papanicolaou smear with manual screening 5 5-15 [facility] Absolute lymphocyte counton 04-07-2022 Lymphocytes Auto (Unsp spec) [#/Vol] 1.52 10*3/uL 0.83-4.51 [facility] Work Phone: Basophil percentageon 2021 Basophils/100 WBC (Bld) 0.8 % 0-1 [facility] Work Phone: Bilirubin [Mass/Vol] 0.70 mg/dL 0.20-1.00 [facility] Work Phone: Comment on above: For patients on eltr ombopag therapy, use of Dimension [place] TBIL is not recommended. Chloride [Moles/Vol] 105 mmol/L 98-107 [facility] Work Phone: Eosinophils/100 WBC (Bld) 1.0 % 0-5 [facility] Work Phone: Glucose [Mass/Vol] 100 mg/dL 74-106 [facility] Work Phone: Comment on above: Fasting Glucose resu lt from 100 to 125 mg/dL suggests IMPAIRED HOMEOSTASIS per A.D.A. criteria. Neutrophils (Bld) [#/Vol] 3.1 10*3/uL 2.0-7.7 [facility] Work Phone: Neutrophils/100 WBC (Bld) 59.1 % 47-70 [facility] Work Phone: Potassium [Moles/Vol] 3.6 mmol/L 3.5-5.1 [facility] Work Phone: Protein [Mass/Vol] 6.9 g/dL 6.4-8.2 [facility] Work Phone: Sodium [Moles/Vol] 140 mmol/L 136-145 [facility] Work Phone: WBC (Bld) [#/Vol] 5.2 10*3/uL 4.4-11.0 [facility] Work Phone: Blood erythrocytes count (nu mber/volume)on 04-07-2022 RBC (Bld) [#/Vol] 4.00 10*6/uL 4.2-5.4 [facility]: Blood hemoglobin measurement (mass/volume)on 04-07-2022 Hemoglobin (Bld) [Mass/Vol] 12.4 g/dL 12.0-15.0 [facility] Work Phone: Blood lymphocytes/100 leukoc yteson 04-07-2022 Lymphocytes/100 WBC (Bld) 29.1 % 19-41 [facility] Work Phone: Blood monocytes/100 leukocyt eson 04-07-2022 Monocytes/100 WBC (Bld) 9.8 % 0-10 [facility] Work Phone: Blood platelet mean volumeon 04-07-2022 Platelet mean volume (Bld) [Entitic vol] 8.8 fL 6.2-12.0 [facility] Work Phone: Determination of erythrocyte mean corpuscular volume (MCV)on 04-07-2022 MCV (RBC) [Entitic vol] 92.8 fL 81-99 [facility] Work Phone: Hematocrit Auto (Bld) [Volum e fraction]on 04-07-2022 Hematocrit (Bld) [Volume fraction] 37.1 % 37-47 [facility] Work Phone: Laboratory - Chemistry and C hemistry - challengeon 04-07-2022 ALP [Catalytic activity/Vol] 49 U/L 45-117 [facility] Work Phone: ALT [Catalytic activity/Vol] 25 U/L 13-56 [facility] Work Phone: CO2 [Moles/Vol] 29.0 mmol/L 21.0-32.0 [facility] Work Phone: Globulin (S) [Mass/Vol] 3.4 g/dL 2.2-4.2 [facility] Work Phone: Urea nitrogen/Creatinine [Mass ratio] 20.8 mg/mg 10-20 [facility] Work Phone: Laboratory - Hematology and Cell countson 04-07-2022 Erythrocyte distribution width (RBC) [Entitic vol] 43.0 fL 35.1-43.9 [facility] Work Phone: Erythrocyte distribution width (RBC) [Ratio] 12.6 % 11.6-14.6 [facility] Work Phone: Immature granulocytes/100 WBC (Bld) 0.200 % 0.0-0.9 [facility] Work Phone: Comment on above: IG% - Immature Granu locytes (promyelocytes, myelocytes and metamyelocytes) > 1% indicates that a LEFT SHIFT is Present. MCH (RBC) [Entitic mass] 31.0 pg 27.0-32.0 [facility] Work Phone: Nucleated RBC/100 WBC (Bld) [Ratio] 0 % 0-5 [facility] Work Phone: MCHC Auto (RBC) [Mass/Vol]on 04-07-2022 MCHC (RBC) [Mass/Vol] 33.4 g/dL 32-36 [facility] Work Phone: No Panel Informationon 04-07 Estimated GFR (MDRD) Amer 103 mL/min >60 [facility] Work Phone: Comment on above: GFR Calc Estimated GFR (MDRD) Non-Af Amer 85 mL/min >60 [facility] Work Phone: Comment on above: Non- GFR Calc Platelets bldon 04-07-2022 Platelets (Bld) [#/Vol] 272 10*3/uL 150-450 [facility] Work Phone: Serum or plasma albumin bennie urement (mass/volume)on 04-07-2022 Albumin [Mass/Vol] 3.5 g/dL 3.2-5.0 [facility] Work Phone: Serum or plasma albumin/glob ulin mass ratioon 04-07-2022 Albumin/Globulin [Mass ratio] 1.0 {ratio} 0.9-2.4 [facility] Work Phone: Serum or plasma calcium bennie urement (mass/volume)on 04-07-2022 Calcium [Mass/Vol] 8.4 mg/dL 8.5-10.1 [facility] Work Phone: Serum or plasma creatinine m easurement (mass/volume)on 04-07-2022 Creatinine [Mass/Vol] 0.72 mg/dL 0.55-1.02 [facility] Work Phone: Comment on above: The validity of the calculated GFR & GFRAA in patients over 70 years has not been determined. Clinical correlation is essential. Serum or plasma urea nitroge n measurement (mass/volume)on 04-07-2022 Urea nitrogen [Mass/Vol] 15 mg/dL 7-18 [facility] Work Phone: Thin prep Papanicolaou smear with manual screeningon 04-07-2022 Thin prep Papanicolaou smear with manual screening 16 U/L 15-37 [facility] Work Phone: Thin prep Papanicolaou smear with manual screening 6 5-15 [facility] Work Phone: ARTEMIO (ANTINUCLEAR ANTIBODY) ( [id number])Ordered By: Truckman on 01-26-2022 Nuclear Ab Ql (S) Negative Normal Compreh [facility]; [facility] Work Phone: Comment on above: Test(s) 862400-Ybeoy ic, Blood; 394691-Wrremge, Blood; 959993-Unbbzjw, Bloodwas developed and its performance characteristics determinedby [employer]. It has not been cleared or approved by the Foodand Drug Administration.PATIENT NOT FASTINGPERFORMED BY: Bee Shield [address] [id number] BY: [employer] [place] [id number] CBC & PLATELETS (AUTO) (8502 7)Ordered By: Truckman on 01-26-2022 Erythrocyte distribution width (RBC) [Ratio] 13.6 % Normal 11.7-15.4 [facility] Work Phone: Comment on above: Test(s) 905407-Ifudf ic, Blood; 987954-Dywzkbk, Blood; 352745-Sqkrdgh, Bloodwas developed and its performance characteristics determinedby [employer]. It has not been cleared or approved by the Foodand Drug Administration.PATIENT NOT FASTINGPERFORMED BY: Bee Shield [address] [id number] BY: Sp[facility]cellThree [facility] [id number] Hematocrit (Bld) [Volume fraction] 41.0 % Normal 34.0-46.6 [facility] Work Phone: Comment on above: Test(s) 268899-Yhruk ic, Blood; 960837-Bymhckl, Blood; 650840-Upswscj, Bloodwas developed and its performance characteristics determinedby [employer]. It has not been cleared or approved by the Foodand Drug Administration.PATIENT NOT FASTINGPERFORMED BY: Bee Shield [address] [id number] BY: Larger Than Life PrintsAsheville Specialty Hospital [id number] Hemoglobin (Bld) [Mass/Vol] 13.9 g/dL Normal 11.1-15.9 [facility]; [facility] Work Phone: Comment on above: Test(s) 960167-Urjhk ic, Blood; 621198-Qwikgso, Blood; 615552-Zdyzuvs, Bloodwas developed and its performance characteristics determinedby [employer]. It has not been cleared or approved by the Foodand Drug Administration.PATIENT NOT FASTINGPERFORMED BY: Bee Shield [address] [id number] BY: [employer]70 InRadioAsheville Specialty Hospital [id number] MCH (RBC) [Entitic mass] 30.6 pg Normal 26.6-33.0 [facility]; [facility] Work Phone: Comment on above: Test(s) 237152-Fdrsx ic, Blood; 125011-Tbswfer, Blood; 896010-Anwsrxs, Bloodwas developed and its performance characteristics determinedby [employer]. It has not been cleared or approved by the Foodand Drug Administration.PATIENT NOT FASTINGPERFORMED BY: Bee Shield [address] [id number] BY: [employer]70 InRadioAsheville Special[facility] Hospital [id number] MCHC (RBC) [Mass/Vol] 33.9 g/dL Normal 31.5-35.7 Com pre[facility]; [facility] Work Phone: Comment on above: Test(s) 235402-Qdrnt ic, Blood; 409948-Aumwrto, Blood; 577342-Ptsstql, Bloodwas developed and its performance characteristics determinedby [employer]. It has not been cleared or approved by the Foodand Drug Administration.PATIENT NOT FASTINGPERFORMED BY: [employer] [address] [id number] BY: [email or web address] - Rehabilitation Hospital of Toms RiverQpubdc6168 Slater SheologyAtrium Health Providence [id number] MCV (RBC) [Entitic vol] 90 fL Normal 79-97 C omprehensive [facility]; [facility] Work Phone: Comment on above: Test(s) 213995-Jcjzn ic, Blood; 615546-Puvgwyf, Blood; 916824-Sgrqfuu, Bloodwas developed and its performance characteristics determinedby [employer]. It has not been cleared or approved by the Foodand Drug Administration.PATIENT NOT FASTINGPERFORMED BY: ALGAentis[address] [id number] BY: ALGA[employer]is [id number] InRadioAsheville Specialty Hospital [id number] Platelets (Bld) [#/Vol] 252 10*3/uL Normal 150-450 [facility]; [facility] Work Phone: Comment on above: Test(s) 879822-Aupep ic, Blood; 898396-Qortafw, Blood; 058426-Wkafexb, Bloodwas developed and its performance characteristics determinedby [employer]. It has not been cleared or approved by the Foodand Drug Administration.PATIENT NOT FASTINGPERFORMED BY: [employer] [address] [id number] BY: [email or web address] [id number] InRadioAsheville Specialty Hospital [id number] RBC (Bld) [#/Vol] 4.54 10*6/uL Normal 3.77-5.28 Compr ehens[facility]; [facility] Work Phone: Comment on above: Test(s) 794732-Unsco ic, Blood; 203666-Agqegmz, Blood; 737277-Tucbhjc, Bloodwas developed and its performance characteristics determinedby [employer]. It has not been cleared or approved by the Foodand Drug Administration.PATIENT NOT FASTINGPERFORMED BY: ALGAentis[address] [id number] BY: [email or web address] [id number] Slater SheologyAtrium Health Providence [id number] WBC (Bld) [#/Vol] 4.7 10*3/uL Normal 3.4-10.8 Compre hens[facility]; [facility] Work Phone: Comment on above: Test(s) 543618-Rvvlr ic, Blood; 556089-Mxgaixv, Blood; 144481-Qlyufam, Bloodwas developed and its performance characteristics determinedby [employer]. It has not been cleared or approved by the Foodand Drug Administration.PATIENT NOT FASTINGPERFORMED BY: Bee Shield [address] [id number] BY: [email or web address] Energy Storage SystemsAtrium Health Providence [id number] HEAVY METAL SCREEN (63705)Or dered By: Truckman on 01-26-2022 Arsenic (Bld) [Mass/Vol] <1 Normal 0-9 [facility]; [facility] Work Phone: Comment on above: Detection Limit = 1 Test(s) 346371-Pnpzw ic, Blood; 054029-Qbzdspw, Blood; 256187-Lgkwruo, Bloodwas developed and its performance characteristics determinedby [employer]. It has not been cleared or approved by the Foodand Drug Administration.PATIENT NOT FASTINGPERFORMED BY: Bee Shield [address] [id number] BY: [employer]6370 Energy Storage SystemsAtrium Health Providence [id number] Cadmium (Bld) [Mass/Vol] <0.5 Normal 0.0-1.2 [facility]; [facility] Work Phone: Comment on above: Environmental Exposu re: Nonsmokers 0.3 - 1.2 Smokers 0.6 - 3.9 Occupational Exposure: OSHA Cadmium Std 5.0 NICOL 5.0 . Detection Limit = 0.5 Test(s) 218962-Gasqh ic, Blood; 788575-Tditrre, Blood; 744792-Yeyibll, Bloodwas developed and its performance characteristics determinedby [employer]. It has not been cleared or approved by the Foodand Drug Administration.PATIENT NOT FASTINGPERFORMED BY: Bee Shield [address] [id number] BY: [employer] [id number] InRadioAsheville Specialty Hospital [id number] Lead (Bld) [Mass/Vol] ug/dL Normal 0-4 [facility] prehensive Internal Medicine; [facility] Work Phone: Comment on above: Testing performed by Inductively coupled plasma/Mass Spectrometry. Environmental Exposure: WHO Recommendation <20 Occupational Exposure: OSHA Lead Std 40 NICOL 30 . Detection Limit = 1 . This test was developed and its performance characteristics determined by [employer]. It has not been cleared or approved by the Food and Drug Administration. Test(s) 356987-Mnedu ic, Blood; 093814-Imgcfre, Blood; 163746-Osfldxo, Bloodwas developed and its performance characteristics determinedby [employer]. It has not been cleared or approved by the Foodand Drug Administration.PATIENT NOT FASTINGPERFORMED BY: Bee Shield [address] [id number] BY: FlixwagonAsheville Specialty Hospital [id number] Mercury (Bld) [Mass/Vol] <1.0 Normal 0.0-14.9 [facility]; [facility] Work Phone: Comment on above: Environmental Exposu re: <15.0 Occupational Exposure: NICOL - Inorganic Mercury: 15.0 . Detection Limit = 1.0 Test(s) 297524-Omgse ic, Blood; 559587-Uidsthc, Blood; 263469-Bkumaua, Bloodwas developed and its performance characteristics determinedby [employer]. It has not been cleared or approved by the Foodand Drug Administration.PATIENT NOT FASTINGPERFORMED BY: [employer] [address] [id number] BY: [employer] [id number] [facility] [id number] HEPATITIS C ANTIBODY (73566) Ordered By: Truckman on 01-26-2022 HCV Ab Signal/Cutoff IA [Rel [...] support the diagnosis of acute HCV infection. [facility] offers Hepatitis C Virus (HCV) RNA, Diagnosis, ARIANE (063756) and Hepatitis C Virus (HCV) Antibody with reflex to Quantitative Real-time PCR (577977). Test(s) 198138-Ttabz ic, Blood; 919166-Emvgncc, Blood; 546764-Wdqvyqn, Bloodwas developed and its performance characteristics determinedby [employer]. It has not been cleared or approved by the Foodand Drug Administration.PATIENT NOT FASTINGPERFORMED BY: ALGAentis[address] [id number] BY: ALGAentisHealthSouth - Rehabilitation Hospital of Toms RiverDlmbwh5730 [facility] [id number] HGB A1C (97998)Ordered By: S ystem Exhaust Machine Operator on 01-26-2022 HbA1c (Bld) [Mass fraction] 5.5 % Normal 4.8-5.6 [facility]; [facility] Work Phone: Comment on above: . Prediabetes: 5.7 - 6.4 Diabetes: >6.4 Glycemic control for adults with diabetes: <7.0 Test(s) 578439-Wgjma ic, Blood; 417832-Ixhbupi, Blood; 398764-Ejtbrgd, Bloodwas developed and its performance characteristics determinedby [employer]. It has not been cleared or approved by the Foodand Drug Administration.PATIENT NOT FASTINGPERFORMED BY: ALGAentis[address] [id number] BY: ALGAentisMatthew Ville [id number] [facility] [id number] METABOLIC PANEL, COMPREHENSI VE (08623)Ordered By: Truckman on 01-26-2022 Albumin [Mass/Vol] 4.6 g/dL Normal 3.8-4.8 [facility] Internal Medicine; [facility] Work Phone: Comment on above: Test(s) 891086-Nemwq ic, Blood; 036336-Yyrddsl, Blood; 539631-Mpeapvi, Bloodwas developed and its performance characteristics determinedby [employer]. It has not been cleared or approved by the Foodand Drug Administration.PATIENT NOT FASTINGPERFORMED BY: ALGAentis[address] [id number] BY: ALGAentisNew Sunrise Regional Treatment CenterUjwqjy0302 Slater SheologyAtrium Health Providence [id number] Albumin/Globulin [Mass ratio] 2.0 {ratio} Normal 1.2-2.2 [facility]; [facility] Work Phone: Comment on above: Test(s) 279058-Flblf ic, Blood; 693724-Afmnuqr, Blood; 284800-Kbmzoew, Bloodwas developed and its performance characteristics determinedby [employer]. It has not been cleared or approved by the Foodand Drug Administration.PATIENT NOT FASTINGPERFORMED BY: ALGAentis[address] [id number] BY: ALGA[employer]is [id number] Sl[facility] SheologyAtrium Health Providence [id number] ALP [Catalytic activity/Vol] 50 U/L Normal 44-121 [facility]; [facility] Work Phone: Comment on above: Test(s) 860274-Ksuaa ic, Blood; 644214-Ovlctsg, Blood; 703643-Cjdykkt, Bloodwas developed and its performance characteristics determinedby [employer]. It has not been cleared or approved by the Foodand Drug Administration.PATIENT NOT FASTINGPERFORMED BY: ALGAentis[address] [id number] BY: ALGA[employer]is Uelaly6906 Sl[facility] SheologyAtrium Health [facility] [id number] ALT [Catalytic activity/Vol] 11 U/L Normal 0-32 [facility]; [facility] Work Phone: Comment on above: Test(s) 789879-Jkafg ic, Blood; 364560-Ngqysxx, Blood; 707903-Nopuysm, Bloodwas developed and its performance characteristics determinedby [employer]. It has not been cleared or approved by the Foodand Drug Administration.PATIENT NOT FASTINGPERFORMED BY: ALGAentis[address] [id number] BY: ALGAentisNew Sunrise Regional Treatment CenterErelsm4769 Slater SheologyAtrium Health [facility] [id number] AST [Catalytic activity/Vol] 12 U/L Normal 0-40 [facility]; [facility] Work Phone: Comment on above: Test(s) 438793-Fwazr ic, Blood; 995132-Tmlwduq, Blood; 067331-Uhqnlad, Bloodwas developed and its performance characteristics determinedby [employer]. It has not been cleared or approved by the Foodand Drug Administration.PATIENT NOT FASTINGPERFORMED BY: ALGAentis[address] [id number] BY: ALGAentisHealthSouth - Rehabilitation Hospital of Toms RiverVcnvfz7077 [place] SheologyAtrium Health Providence [id number] Bilirubin [Mass/Vol] 0.6 mg/dL Normal 0.0-1.2 [facility] rehensive Internal Medicine; [facility] Work Phone: Comment on above: Test(s) 231687-Obnwn ic, Blood; 832903-Wwehwij, Blood; 406095-Wlwgepc, Bloodwas developed and its performance characteristics determinedby [employer]. It has not been cleared or approved by the Foodand Drug Administration.PATIENT NOT FASTINGPERFORMED BY: ALGAentis[address] [id number] BY: ALGAentis Ifivkp1163 [place] SheologyAt[facility] Providence [id number] Calcium [Mass/Vol] 9.4 mg/dL Normal 8.7-10.3 [facility] Internal Medicine; [facility] Work Phone: Comment on above: Test(s) 272510-Wmxpz ic, Blood; 226229-Umgidar, Blood; 440258-Aghrzyi, Bloodwas developed and its performance characteristics determinedby [employer]. It has not been cleared or approved by the FIT Biotechand Drug Administration.PATIENT NOT FASTINGPERFORMED BY: ALGAentis[address] [id number] BY: ALGAentisMatthew [place] [id number] [facility] [id number] Chloride [Moles/Vol] 102 mmol/L Normal 96-106 Comp rehensive Internal Medicine; [facility] Work Phone: Comment on above: Test(s) 023145-Evxhw ic, Blood; 908616-Yvttvai, Blood; 022640-Xovdllp, Bloodwas developed and its performance characteristics determinedby [employer]. It has not been cleared or approved by the Foodand Drug Administration.PATIENT NOT FASTINGPERFORMED BY: Bee Shield [address] [id number] BY: ALGAentis Gjkili3097 InRadioAsheville [facility] Hospital [id number] CO2 [Moles/Vol] 24 mmol/L Normal 20-29 Comprehen sive Internal Medicine; [facility] Work Phone: Comment on above: Test(s) 325471-Lpixh ic, Blood; 825366-Vqpkpoh, Blood; 087592-Tvgxsda, Bloodwas developed and its performance characteristics determinedby [employer]. It has not been cleared or approved by the Foodand Drug Administration.PATIENT NOT FASTINGPERFORMED BY: Bee Shield [address] [id number] BY: CultureIQ70 [place] DraftDayAsheville Specialty Hospital [id number] Creatinine [Mass/Vol] 0.81 mg/dL Normal 0.57-1.00 Com prehensive Internal Medicine; [facility] Work Phone: Comment on above: Test(s) 585118-Ssnkp ic, Blood; 594769-Dqflfei, Blood; 326293-Kxwgjyi, Bloodwas developed and its performance characteristics determinedby [employer]. It has not been cleared or approved by the Foodand Drug Administration.PATIENT NOT FASTINGPERFORMED BY: ALGAentis[address] [id number] BY: [employer] Qxadzz5668 [place] SheologyAt[facility] [id number] GFR/1.73 sq M.predicted among non-blacks MDRD (S/P/Bld) [Vol rate/Area] 79 mL/min/{1.73_m2} Normal Comprehensiv e Internal Medicine; [facility] Work Phone: Comment on above: Test(s) 784747-Qywmi ic, Blood; 678527-Poznbqb, Blood; 921826-Pclhbrd, Bloodwas developed and its performance characteristics determinedby [employer]. It has not been cleared or approved by the Foodand Drug Administration.PATIENT NOT FASTINGPERFORMED BY: ALGAentis[address] [id number] BY: ALGAentisHealthSouth - Rehabilitation Hospital of Toms RiverHctnoe8810 [facility] [id number] Globulin (S) [Mass/Vol] 2.3 g/dL Normal 1.5-4.5 [facility]; [facility] Work Phone: Comment on above: Test(s) 089949-Gjpdc ic, Blood; 345735-Qmfgqhc, Blood; 471884-Ywcpmma, Bloodwas developed and its performance characteristics determinedby [employer]. It has not been cleared or approved by the Foodand Drug Administration.PATIENT NOT FASTINGPERFORMED BY: Thinkspeed [address] [id number] BY: ALGAentisHealthSouth - Rehabilitation Hospital of Toms RiverPckjxf6851 [facility] [id number] Glucose [Mass/Vol] 102 mg/dL Abnormal 65-99 [facility] Internal Medicine; [facility] Work Phone: Comment on above: Test(s) 704604-Rlzow ic, Blood; 552041-Ooqhdeb, Blood; 189036-Vcvfehj, Bloodwas developed and its performance characteristics determinedby [employer]. It has not been cleared or approved by the Foodand Drug Administration.PATIENT NOT FASTINGPERFORMED BY: ALGAentis[address] [id number] BY: ALGAentisHealthSouth - Rehabilitation Hospital of Toms RiverPsfoxf8634 [facility] [id number] Potassium [Moles/Vol] 4.4 mmol/L Normal 3.5-5.2 [facility]; [facility] Work Phone: Comment on above: Test(s) 970793-Yaupm ic, Blood; 525578-Gxyuaba, Blood; 731821-Auwcuov, Bloodwas developed and its performance characteristics determinedby [employer]. It has not been cleared or approved by the Foodand Drug Administration.PATIENT NOT FASTINGPERFORMED BY: ALGAentis[address] [id number] BY: Labco Hrcdbw0673 InRadioAsheville Special[facility] Hospital [id number] Protein [Mass/Vol] 6.9 g/dL Normal 6.0-8.5 [facility] Internal Medicine; [facility] Work Phone: Comment on above: Test(s) 195419-Zfqre ic, Blood; 315133-Nkszaaz, Blood; 209644-Xlzpufa, Bloodwas developed and its performance characteristics determinedby [employer]. It has not been cleared or approved by the Vhoto Drug Administration.PATIENT NOT FASTINGPERFORMED BY: ALGAentis[address] [id number] BY: ALGAentis Eswbzd4320 [place] DraftDayAsheville Specialty Hospital [id number] Sodium [Moles/Vol] 141 mmol/L Normal 134-144 [facility] Internal Medicine; [facility] Work Phone: Comment on above: Test(s) 990894-Bcpla ic, Blood; 129269-Zlhbyvr, Blood; 679096-Wvnbtig, Bloodwas developed and its performance characteristics determinedby [employer]. It has not been cleared or approved by the FoodGenJuice Drug Administration.PATIENT NOT FASTINGPERFORMED BY: ALGAentis[address] [id number] BY: [employer] Iznewf2514 [place] DraftDayAsheville Specialty Hospital [id number] Urea nitrogen [Mass/Vol] 14 mg/dL Normal 8-27 [facility]; [facility] Work Phone: Comment on above: Test(s) 267521-Cjtwv ic, Blood; 477572-Stbaepf, Blood; 077667-Xgawmtc, Bloodwas developed and its performance characteristics determinedby [employer]. It has not been cleared or approved by the Foodand Drug Administration.PATIENT NOT FASTINGPERFORMED BY: ALGAentis[address] [id number] BY: ALGAentis Dgmpob1068 InRadioAsheville Specialty Hospital [id number] Urea nitrogen/Creatinine [Mass ratio] 17 mg/mg Normal 12-28 [facility]; [facility] Work Phone: Comment on above: Test(s) 892729-Nqoxr ic, Blood; 082566-Pqsxmhy, Blood; 516068-Wofdajk, Bloodwas developed and its performance characteristics determinedby [employer]. It has not been cleared or approved by the Foodand Drug Administration.PATIENT NOT FASTINGPERFORMED BY: Bee Shield [address] [id number] BY: CultureIQ70 [place] DraftDayAsheville Specialty Hospital [id number] SED RATE ERYTHROCYTE (44636) Ordered By: Truckman on 01-26-2022 ESR (Bld) [Velocity] 9 mm/h Normal 0-40 [facility] Internal Medicine; [facility] Work Phone: Comment on above: Test(s) 001110-Kgqqi ic, Blood; 409245-Zkzpktl, Blood; 108789-Thppugp, Bloodwas developed and its performance characteristics determinedby [employer]. It has not been cleared or approved by the Foodand Drug Administration.PATIENT NOT FASTINGPERFORMED BY: Bee Shield [address] [id number] BY: [employer]6370 InRadioAsheville Specialty Hospital [id number] Serum Protein Electrophoresi s (SPEP) (21205)Ordered By: Truckman on 01-26-2022 Albumin [Mass/Vol] 4.0 g/dL Normal 2.9-4.4 [facility] Internal Medicine; [facility] Work Phone: Comment on above: Test(s) 647410-Nuxge ic, Blood; 090396-Awntigl, Blood; 391691-Atiyuuq, Bloodwas developed and its performance characteristics determinedby [employer]. It has not been cleared or approved by the Foodand Drug Administration.PATIENT NOT FASTINGPERFORMED BY: Bee Shield [address] [id number] BY: [email or web address] Ngtngb0863 [facility] [id number] Albumin/Globulin [Mass ratio] 1.4 {ratio} Normal 0.7-1.7 [facility]; [facility] Work Phone: Comment on above: Test(s) 986107-Blkau ic, Blood; 333993-Mwwhebl, Blood; 363480-Otbiqqq, Bloodwas developed and its performance characteristics determinedby [employer]. It has not been cleared or approved by the Foodand Drug Administration.PATIENT NOT FASTINGPERFORMED BY: ALGAentis[address] [id number] BY: [place] [id number] [facility] [id number] Alpha 1 globulin Elph [Mass/Vol] 0.2 g/dL Normal 0.0-0.4 [facility]; [facility] Work Phone: Comment on above: Test(s) 069002-Awweo ic, Blood; 614744-Vsnbnpe, Blood; 803162-Gnixxle, Bloodwas developed and its performance characteristics determinedby [employer]ed. It has not been cleared or approved by the Foodand Drug Administration.PATIENT NOT FASTINGPERFORMED BY: ALGAentis[address] [id number] BY: ALGAentisHealthSouth - Rehabilitation Hospital of Toms RiverXcnoxx0419 [facility] [id number] Alpha 2 globulin Elph [Mass/Vol] 0.9 g/dL Normal 0.4-1.0 [facility]; [facility] Work Phone: Comment on above: Test(s) 381603-Gymqj ic, Blood; 037673-Crmjxmx, Blood; 159264-Rjtmhrj, Bloodwas developed and its performance characteristics determinedby Th[employer]peed. It has not been cleared or approved by the Foodand Drug Administration.PATIENT NOT FASTINGPERFORMED BY: OpenBook[address] [id number] BY: OpenBookCaro Center6370 [facility] [id number] Beta globulin Elph [Mass/Vol] 1.0 g/dL Normal 0.7-1.3 [facility]; [facility] Work Phone: Comment on above: Test(s) 422036-Oizon ic, Blood; 964306-Axrlutk, Blood; 716166-Xaxzruq, Bloodwas developed and its performance characteristics determinedby [employer]. It has not been cleared or approved by the Foodand Drug Administration.PATIENT NOT FASTINGPERFORMED BY: Bee Shield [address] [id number] BY: Larger Than Life PrintsAsheville Specialty Hospital [id number] Gamma globulin Elph [Mass/Vol] 0.9 g/dL Normal 0.4-1.8 [facility]; [facility] Work Phone: Comment on above: Test(s) 251273-Tplld ic, Blood; 517334-Fkfebzu, Blood; 217021-Vscaigz, Bloodwas developed and its performance characteristics determinedby [employer]. It has not been cleared or approved by the Foodand Drug Administration.PATIENT NOT FASTINGPERFORMED BY: Bee Shield [address] [id number] BY: CultureIQ70 InRadioAsheville Specialty Hospital [id number] Globulin (S) [Mass/Vol] 2.9 g/dL Normal 2.2-3.9 C omprehensive Internal Medicine; [facility] Work Phone: Comment on above: Test(s) 570268-Ynldp ic, Blood; 526507-Kugfvkd, Blood; 767430-Venvlfq, Bloodwas developed and its performance characteristics determinedby [employer]. It has not been cleared or approved by the Foodand Drug Administration.PATIENT NOT FASTINGPERFORMED BY: Bee Shield [address] [id number] BY: [email or web address] Thinkr Slater DraftDayAsheville Specialty Hospital [id number] Laboratory comment Armando (Report) [facility] Normal [facility]; [facility] Work Phone: Comment on above: Protein electrophore sis scan will follow via computer, mail, orcourier delivery. Test(s) 525293-Obeqw ic, Blood; 816830-Ysbrwsb, Blood; 854171-Tuocumn, Bloodwas developed and its performance characteristics determinedby Thinkspeed. It has not been cleared or approved by the Foodand Drug Administration.PATIENT NOT FASTINGPERFORMED BY: ALGAentis[address] [id number] BY: ALGAentis Gamerizon StudioAsheville Specialty Hospital [id number] Laboratory report . Normal Compreh ensive Internal Medicine; [facility] Work Phone: Comment on above: Test(s) 703167-Ohpey ic, Blood; 114650-Pqcqhlo, Blood; 866922-Mkxtxou, Bloodwas developed and its performance characteristics determinedby [employer]. It has not been cleared or approved by the Foodand Drug Administration.PATIENT NOT FASTINGPERFORMED BY: Thinkspeed [address] [id number] BY: FlixwagonAsheville Specialty Hospital [id number] Protein.monoclonal Elph [Mass/Vol] Not Observed Normal [facility]; [facility] Work Phone: Comment on above: Test(s) 298118-Fcbui ic, Blood; 044906-Aphmduc, Blood; 768033-Jzbshmb, Bloodwas developed and its performance characteristics determinedby [employer]. It has not been cleared or approved by the Foodand Drug Administration.PATIENT NOT FASTINGPERFORMED BY: ALGAentis[address] [id number] BY: ALGAentisHealthSouth - Rehabilitation Hospital of Toms RiverUxxwxs2100 [place] SheologyAtrium Health Providence [id number] TSH (THYROID STIMULATING HOR DARIN) (46695)Ordered By: Truckman on 01-26-2022 TSH Qn 1.210 {uIU/mL} Normal 0.450-4.50 0 [facility]; [facility] Work Phone: Comment on above: Test(s) 140969-Onxob ic, Blood; 131408-Baxkqho, Blood; 940468-Awhnrrn, Bloodwas developed and its performance characteristics determinedby [employer]. It has not been cleared or approved by the Foodand Drug Administration.PATIENT NOT FASTINGPERFORMED BY: ALGAentisCynthia Ville 274527 [facility] [id number] BY: ALGAentisHealthSouth - Rehabilitation Hospital of Toms RiverAmzmxq8106 [facility] [id number] VITAMIN B-12 (CYANOCOBALAMIN ) (21486)Ordered By: Truckman on 01-26-2022 Cobalamin (Vitamin B12) [Mass/Vol] 523 pg/mL Normal 232-1245 [facility]; [facility] Work Phone: Comment on above: Test(s) 540026-Lzsjb ic, Blood; 502076-Pqvrkqy, Blood; 314314-Ebpbncs, Bloodwas developed and its performance characteristics determinedby Thinkspeed. It has not been cleared or approved by the Foodand Drug Administration.PATIENT NOT FASTINGPERFORMED BY: Thinkspeed [address] [id number] BY: ALGAentisNew Sunrise Regional Treatment CenterGxsycn0767 [facility] [id number] Absolute lymphocyte counton 01-11-2022 Lymphocytes Auto (Unsp spec) [#/Vol] 1.61 10*3/uL 0.83-4.51 [facility] Work Phone: Basophil percentageon 2021 Basophils/100 WBC (Bld) 0.7 % 0-1 [facility] Work Phone: Bilirubin [Mass/Vol] 1.10 mg/dL 0.20-1.00 [facility] Work Phone: Comment on above: For patients on eltr ombopag therapy, use of Dimension [place] TBIL is not recommended. Chloride [Moles/Vol] 104 mmol/L 98-107 [facility] Work Phone: Eosinophils/100 WBC (Bld) 1.4 % 0-5 [facility] Work Phone: Glucose [Mass/Vol] 119 mg/dL 74-106 [facility] Work Phone: Comment on above: Fasting Glucose resu lt from 100 to 125 mg/dL suggests IMPAIRED HOMEOSTASIS per A.D.A. criteria. Neutrophils (Bld) [#/Vol] 2.1 10*3/uL 2.0-7.7 [facility] Work Phone: Neutrophils/100 WBC (Bld) 49.3 % 47-70 [facility] Work Phone: Potassium [Moles/Vol] 3.6 mmol/L 3.5-5.1 [facility] Work Phone: Protein [Mass/Vol] 7.3 g/dL 6.4-8.2 [facility] Work Phone: Sodium [Moles/Vol] 139 mmol/L 136-145 [facility] Work Phone: WBC (Bld) [#/Vol] 4.3 10*3/uL 4.4-11.0 [facility] Work Phone: Blood erythrocytes count (nu mber/volume)on 01-11-2022 RBC (Bld) [#/Vol] 4.30 10*6/uL 4.2-5.4 [facility] Work Phone: Blood hemoglobin measurement (mass/volume)on 01-11-2022 Hemoglobin (Bld) [Mass/Vol] 13.1 g/dL 12.0-15.0 [facility] Work Phone: Blood lymphocytes/100 leukoc yteson 01-11-2022 Lymphocytes/100 WBC (Bld) 37.3 % 19-41 [facility] Work Phone: Blood monocytes/100 leukocyt eson 01-11-2022 Monocytes/100 WBC (Bld) 11.1 % 0-10 [facility] Work Phone: Blood platelet mean volumeon 01-11-2022 Platelet mean volume (Bld) [Entitic vol] 8.8 fL 6.2-12.0 [facility] Work Phone: Determination of erythrocyte mean corpuscular volume (MCV)on 01-11-2022 MCV (RBC) [Entitic vol] 91.9 fL 81-99 [facility] Work Phone: Hematocrit Auto (Bld) [Volum e fraction]on 01-11-2022 Hematocrit (Bld) [Volume fraction] 39.5 % 37-47 [facility] Work Phone: Laboratory - Chemistry and C hemistry - challengeon 01-11-2022 ALP [Catalytic activity/Vol] 45 U/L 45-117 [facility] Work Phone: ALT [Catalytic activity/Vol] 20 U/L 13-56 [facility] Work Phone: CO2 [Moles/Vol] 28.0 mmol/L 21.0-32.0 [facility] Work Phone: Globulin (S) [Mass/Vol] 3.4 g/dL 2.2-4.2 [facility] Work Phone: Urea nitrogen/Creatinine [Mass ratio] 12.8 mg/mg 10-20 [facility] Work Phone: Laboratory - Hematology and Cell countson 01-11-2022 Erythrocyte distribution width (RBC) [Entitic vol] 49.1 fL 35.1-43.9 [facility] Work Phone: Erythrocyte distribution width (RBC) [Ratio] 14.6 % 11.6-14.6 [facility] Work Phone: Immature granulocytes/100 WBC (Bld) 0.200 % 0.0-0.9 [facility] Work Phone: Comment on above: IG% - Immature Granu locytes (promyelocytes, myelocytes and metamyelocytes) > 1% indicates that a LEFT SHIFT is Present. MCH (RBC) [Entitic mass] 30.5 pg 27.0-32.0 [facility] Work Phone: Nucleated RBC/100 WBC (Bld) [Ratio] 0 % 0-5 [facility] Work Phone: MCHC Auto (RBC) [Mass/Vol]on 01-11-2022 MCHC (RBC) [Mass/Vol] 33.2 g/dL 32-36 [facility] Work Phone: No Panel Informationon 01-11 Estimated GFR (MDRD) Amer 84 mL/min >60 [facility] Work Phone: Comment on above: GFR Calc Estimated GFR (MDRD) Non-Af Amer 70 mL/min >60 [facility] Work Phone: Comment on above: Non- GFR Calc Platelets bldon 01-11-2022 Platelets (Bld) [#/Vol] 272 10*3/uL 150-450 [facility] Work Phone: Serum or plasma albumin bennie urement (mass/volume)on 01-11-2022 Albumin [Mass/Vol] 3.9 g/dL 3.2-5.0 [facility] Work Phone: Serum or plasma albumin/glob ulin mass ratioon 01-11-2022 Albumin/Globulin [Mass ratio] 1.1 {ratio} 0.9-2.4 [facility] Work Phone: Serum or plasma calcium bennie urement (mass/volume)on 01-11-2022 Calcium [Mass/Vol] 9.3 mg/dL 8.5-10.1 [facility] Work Phone: Serum or plasma creatinine m easurement (mass/volume)on 01-11-2022 Creatinine [Mass/Vol] 0.86 mg/dL 0.55-1.02 [facility] Work Phone: Comment on above: The validity of the calculated GFR & GFRAA in patients over 70 years has not been determined. Clinical correlation is essential. Serum or plasma urea nitroge n measurement (mass/volume)on 01-11-2022 Urea nitrogen [Mass/Vol] 11 mg/dL 7-18 [facility] Work Phone: Thin prep Papanicolaou smear with manual screeningon 01-11-2022 Thin prep Papanicolaou smear with manual screening 13 U/L 15-37 [facility] Work Phone: Thin prep Papanicolaou smear with manual screening 7 5-15 [facility] Work Phone: Absolute lymphocyte counton 10-18-2021 Lymphocytes Auto (Unsp spec) [#/Vol] 1.89 10*3/uL 0.83-4.51 [facility] Work Phone: Basophil percentageon 2021 Basophils/100 WBC (Bld) 1.0 % 0-1 [facility] Work Phone: Bilirubin [Mass/Vol] 0.70 mg/dL 0.20-1.00 [facility] Work Phone: Comment on above: For patients on eltr ombopag therapy, use of Dimension [place] TBIL is not recommended. Chloride [Moles/Vol] 105 mmol/L 98-107 [facility] Work Phone: Eosinophils/100 WBC (Bld) 2.5 % 0-5 [facility] Work Phone: Glucose [Mass/Vol] 97 mg/dL 74-106 [facility] Work Phone: Neutrophils (Bld) [#/Vol] 2.5 10*3/uL 2.0-7.7 [facility] Work Phone: Neutrophils/100 WBC (Bld) 47.8 % 47-70 [facility] Work Phone: Potassium [Moles/Vol] 3.6 mmol/L 3.5-5.1 [facility] Work Phone: Protein [Mass/Vol] 7.3 g/dL 6.4-8.2 [facility] Work Phone: Sodium [Moles/Vol] 140 mmol/L 136-145 [facility] Work Phone: WBC (Bld) [#/Vol] 5.2 10*3/uL 4.4-11.0 [facility] Work Phone: Blood erythrocytes count (nu mber/volume)on 10-18-2021 RBC (Bld) [#/Vol] 4.64 10*6/uL 4.2-5.4 [facility] Work Phone: Blood hemoglobin measurement (mass/volume)on 10-18-2021 Hemoglobin (Bld) [Mass/Vol] 13.3 g/dL 12.0-15.0 [facility] Work Phone: Blood lymphocytes/100 leukoc yteson 10-18-2021 Lymphocytes/100 WBC (Bld) 36.1 % 19-41 [facility] Work Phone: Blood monocytes/100 leukocyt eson 10-18-2021 Monocytes/100 WBC (Bld) 12.4 % 0-10 [facility] Work Phone: Blood platelet mean volumeon 10-18-2021 Platelet mean volume (Bld) [Entitic vol] 9.1 fL 6.2-12.0 [facility] Work Phone: Determination of erythrocyte mean corpuscular volume (MCV)on 10-18-2021 MCV (RBC) [Entitic vol] 88.4 fL 81-99 [facility] Work Phone: Hematocrit Auto (Bld) [Volum e fraction]on 10-18-2021 Hematocrit (Bld) [Volume fraction] 41.0 % 37-47 [facility] Work Phone: Laboratory - Chemistry and C hemistry - challengeon 10-18-2021 ALP [Catalytic activity/Vol] 60 U/L 45-117 [facility] Work Phone: ALT [Catalytic activity/Vol] 18 U/L 13-56 [facility] Work Phone: CO2 [Moles/Vol] 27.0 mmol/L 21.0-32.0 [facility] Work Phone: Globulin (S) [Mass/Vol] 3.5 g/dL 2.2-4.2 [facility] Work Phone: Urea nitrogen/Creatinine [Mass ratio] 13.4 mg/mg 10-20 [facility] Work Phone: Laboratory - Hematology and Cell countson 10-18-2021 Erythrocyte distribution width (RBC) [Entitic vol] 42.6 fL 35.1-43.9 [facility] Work Phone: Erythrocyte distribution width (RBC) [Ratio] 13.2 % 11.6-14.6 [facility] Work Phone: Immature granulocytes/100 WBC (Bld) 0.200 % 0.0-0.9 [facility] Work Phone: Comment on above: IG% - Immature Granu locytes (promyelocytes, myelocytes and metamyelocytes) > 1% indicates that a LEFT SHIFT is Present. MCH (RBC) [Entitic mass] 28.7 pg 27.0-32.0 [facility] Work Phone: Nucleated RBC/100 WBC (Bld) [Ratio] 0 % 0-5 [facility] Work Phone: MCHC Auto (RBC) [Mass/Vol]on 10-18-2021 MCHC (RBC) [Mass/Vol] 32.4 g/dL 32-36 [facility] Work Phone: No Panel Informationon 10-18 Estimated GFR (MDRD) Amer 81 mL/min >60 [facility] Work Phone: Comment on above: GFR Calc Estimated GFR (MDRD) Non-Af Amer 67 mL/min >60 [facility] Work Phone: Comment on above: Non- GFR Calc Platelets bldon 10-18-2021 Platelets (Bld) [#/Vol] 234 10*3/uL 150-450 [facility] Work Phone: Serum or plasma albumin bennie urement (mass/volume)on 10-18-2021 Albumin [Mass/Vol] 3.8 g/dL 3.2-5.0 [facility] Work Phone: Serum or plasma albumin/glob ulin mass ratioon 10-18-2021 Albumin/Globulin [Mass ratio] 1.1 {ratio} 0.9-2.4 [facility] Work Phone: Serum or plasma calcium bennie urement (mass/volume)on 10-18-2021 Calcium [Mass/Vol] 8.6 mg/dL 8.5-10.1 [facility] Work Phone: Serum or plasma creatinine m easurement (mass/volume)on 10-18-2021 Creatinine [Mass/Vol] 0.89 mg/dL 0.55-1.02 [facility] Work Phone: Comment on above: The validity of the calculated GFR & GFRAA in patients over 70 years has not been determined. Clinical correlation is essential. Serum or plasma urea nitroge n measurement (mass/volume)on 10-18-2021 Urea nitrogen [Mass/Vol] 12 mg/dL 7-18 [facility] Work Phone: Thin prep Papanicolaou smear with manual screeningon 10-18-2021 Thin prep Papanicolaou smear with manual screening 16 U/L 15-37 [facility] Work Phone: Thin prep Papanicolaou smear with manual screening 8 5-15 [facility] Work Phone: Absolute lymphocyte counton 08-11-2021 Lymphocytes Auto (Unsp spec) [#/Vol] 1.62 10*3/uL 0.83-4.51 [facility] Work Phone: Basophil percentageon 2020 Bilirubin [Mass/Vol] 0.90 mg/dL 0.20-1.00 [facility] Work Phone: Comment on above: For patients on eltr ombopag therapy, use of Dimension [place] TBIL is not recommended. Chloride [Moles/Vol] 107 mmol/L 98-107 [facility] Work Phone: Eosinophils/100 WBC (Bld) 1.7 % 0-5 [facility] Work Phone: Glucose [Mass/Vol] 96 mg/dL 74-106 [facility] Work Phone: Comment on above: Please note revised GLUCOSE reference range effective 2017. Neutrophils (Bld) [#/Vol] 3.1 10*3/uL 2.0-7.7 [facility] Work Phone: Potassium [Moles/Vol] 3.8 mmol/L 3.5-5.1 [facility] Work Phone: Protein [Mass/Vol] 7.4 g/dL 6.4-8.2 [facility] Work Phone: Sodium [Moles/Vol] 141 mmol/L 136-145 [facility] Work Phone: WBC (Bld) [#/Vol] 5.4 10*3/uL 4.4-11.0 [facility] Work Phone: Blood erythrocytes count (nu mber/volume)on 08-11-2021 RBC (Bld) [#/Vol] 4.60 10*6/uL 4.2-5.4 [facility] Work Phone: Blood hemoglobin measurement (mass/volume)on 08-11-2021 Hemoglobin (Bld) [Mass/Vol] 13.3 g/dL 12.0-15.0 [facility] Work Phone: Blood lymphocytes/100 leukoc yteson 08-11-2021 Lymphocytes/100 WBC (Bld) 29.8 % 19-41 [facility] Work Phone: Blood monocytes/100 leukocyt eson 08-11-2021 Monocytes/100 WBC (Bld) 11.2 % 0-10 [facility] Work Phone: Blood platelet mean volumeon 08-11-2021 Platelet mean volume (Bld) [Entitic vol] 9.3 fL 6.2-12.0 [facility] Work Phone: Determination of erythrocyte mean corpuscular volume (MCV)on 08-11-2021 MCV (RBC) [Entitic vol] 89.8 fL 81-99 [facility] Work Phone: Hematocrit Auto (Bld) [Volum e fraction]on 08-11-2021 Hematocrit (Bld) [Volume fraction] 41.3 % 37-47 [facility] Work Phone: Laboratory - Chemistry and C hemistry - challengeon 08-11-2021 ALP [Catalytic activity/Vol] 58 U/L 45-117 [facility] Work Phone: ALT [Catalytic activity/Vol] 21 U/L 13-56 [facility] Work Phone: CO2 [Moles/Vol] 28.0 mmol/L 21.0-32.0 [facility] Work Phone: Globulin (S) [Mass/Vol] 3.7 g/dL 2.2-4.2 [facility] Work Phone: Urea nitrogen/Creatinine [Mass ratio] 18.4 mg/mg 10-20 [facility] Work Phone: Laboratory - Hematology and Cell countson 08-11-2021 Basophils/100 WBC (Unsp spec) 0.9 % 0-1 [facility] Work Phone: Erythrocyte distribution width (RBC) [Entitic vol] 40.4 fL 35.1-43.9 [facility] Work Phone: Erythrocyte distribution width (RBC) [Ratio] 12.3 % 11.6-14.6 [facility] Work Phone: Immature granulocytes/100 WBC (Bld) 0.200 % 0.0-0.9 [facility] Work Phone: Comment on above: IG% - Immature Granu locytes (promyelocytes, myelocytes and metamyelocytes) > 1% indicates that a LEFT SHIFT is Present. MCH (RBC) [Entitic mass] 28.9 pg 27.0-32.0 [facility] Work Phone: Neutrophils/100 WBC (Bld) 56.2 % 47-70 [facility] Work Phone: Nucleated RBC/100 WBC (Bld) [Ratio] 0 % 0-5 [facility] Work Phone: MCHC Auto (RBC) [Mass/Vol]on 08-11-2021 MCHC (RBC) [Mass/Vol] 32.2 g/dL 32-36 [facility] Work Phone: No Panel Informationon 08-11 Estimated GFR (MDRD) Amer 83 mL/min >60 [facility] Work Phone: Comment on above: GFR Calc Estimated GFR (MDRD) Non-Af Amer 69 mL/min >60 [facility] Work Phone: Comment on above: Non- GFR Calc Platelets bldon 08-11-2021 Platelets (Bld) [#/Vol] 273 10*3/uL 150-450 [facility] Work Phone: Serum or plasma albumin bennie urement (mass/volume)on 08-11-2021 Albumin [Mass/Vol] 3.7 g/dL 3.2-5.0 [facility] Work Phone: Serum or plasma albumin/glob ulin mass ratioon 08-11-2021 Albumin/Globulin [Mass ratio] 1.0 {ratio} 0.9-2.4 [facility] Work Phone: Serum or plasma calcium bennie urement (mass/volume)on 08-11-2021 Calcium [Mass/Vol] 9.0 mg/dL 8.5-10.1 [facility] Work Phone: Serum or plasma creatinine m easurement (mass/volume)on 08-11-2021 Creatinine [Mass/Vol] 0.87 mg/dL 0.55-1.02 [facility] Work Phone: Comment on above: The validity of the calculated GFR & GFRAA in patients over 70 years has not been determined. Clinical correlation is essential. Serum or plasma urea nitroge n measurement (mass/volume)on 08-11-2021 Urea nitrogen [Mass/Vol] 16 mg/dL 7-18 [facility] Work Phone: Thin prep Papanicolaou smear with manual screeningon 08-11-2021 Thin prep Papanicolaou smear with manual screening 14 U/L 15-37 [facility] Work Phone: Thin prep Papanicolaou smear with manual screening 6 5-15 [facility] Work Phone: HgA1C , Office ([phone])Ordere d By: Kimberli Leal on 07-02-2021 HbA1c (Bld) [Mass fraction] 5.2 % Normal 4.6 - 7.1 [facility]; [facility] Work Phone: CALCIFIDIOL ([id number]) VIT D 25 Ordered By: Truckman on 03-26-2021 25-hydroxyvitamin D [Mass/Vol] 39.8 ng/mL Normal 30.0-100.0 [facility]; [facility] Work Phone: Comment on above: Vitamin D deficiency has been defined by the [place] ofRegional Medical Centercine and an Endocrine Society practice guideline as alevel of serum 25-OH vitamin D less than 20 ng/mL (1,2).The Endocrine Society went on to further define vitamin Dinsufficiency as a level between 21 and 29 ng/mL (2).1. IOM ([place] of Medicine). 2010. Dietary reference intakes for calcium and D. [place]: The National Academies Press.2. Andrey CERON, Dago RAMIREZ, Cuauhtemoc MOSS, et al. Evaluation, treatment, and prevention of vitamin D deficiency: an Endocrine Society clinical practice guideline. JCEM. 2010; 96(7):1911-30. PATIENT WAS FASTINGP ERFORMED BY: [employer] [address] [place] [id number] CBC W/AUTO DIFF WBC (32905)O rdered By: Truckman on 03-26-2021 Basophils (Bld) [#/Vol] 0.1 10*3/uL Normal 0.0-0.2 [facility]; [facility] Work Phone: Comment on above: PATIENT WAS FASTINGP ERFORMED BY: [employer] MediaAs[facility] Special[facility] Hospital [id number] Basophils/100 WBC (Bld) 1 % Normal C omprehensive [facility]; [facility] Work Phone: Comment on above: PATIENT WAS FASTINGP ERFORMED BY: OLIVIA [facility] Fzssuc[address] RoadDublin [place] [id number] Eosinophils (Bld) [#/Vol] 0.1 10*3/uL Normal 0.0-0.4 [facility]; [facility] Work Phone: Comment on above: PATIENT WAS FASTINGP ERFORMED BY: CB [facility] Giejsz[address] RoadDublin [place] [id number] Eosinophils/100 WBC (Bld) 3 % Normal [facility]; [facility] Work Phone: Comment on above: PATIENT WAS FASTINGP ERFORMED BY: LabCo Gyoiti[address] RoadYadkin Valley Community Hospitalin [place] [id number] Erythrocyte distribution width (RBC) [Ratio] 12.7 % Normal 11.7-15.4 [facility]; [facility] Work Phone: Comment on above: PATIENT WAS FASTINGP ERFORMED BY: CB [facility] Tdwuzw6762 [address] RoadYadkin Valley Community Hospitalin [place] [id number] Hematocrit (Bld) [Volume fraction] 41.6 % Normal 34.0-46.6 [facility]; [facility] Work Phone: Comment on above: PATIENT WAS FASTINGP ERFORMED BY: [facility] Bxezim55[address] RoadDublin [place] [id number] Hemoglobin (Bld) [Mass/Vol] 13.4 g/dL Normal 11.1-15.9 [facility]; [facility] Work Phone: Comment on above: PATIENT WAS FASTINGP ERFORMED BY: CB [facility] Rhtpiq99[address] RoadDublin [place] [id number] Immature granulocytes (Bld) [#/Vol] 0.0 10*3/uL Normal 0.0-0.1 [facility]; [facility] Work Phone: Comment on above: PATIENT WAS FASTINGP ERFORMED BY: CB [facility] Mbmopi[address] RoadDublin [place] [id number] Immature granulocytes/100 WBC (Bld) 0 % Normal [facility]; [facility] Work Phone: Comment on above: PATIENT WAS FASTINGP ERFORMED BY: EdmarScot[facility] Wlphdv0092 [facility] [id number] Lymphocytes (Bld) [#/Vol] 1.2 10*3/uL Normal 0.7-3.1 [facility]; [facility] Work Phone: Comment on above: PATIENT WAS FASTINGP ERFORMED BY: [place] [id number] [facility] [id number] Lymphocytes/100 WBC (Bld) 31 % Normal [facility]; [facility] Work Phone: Comment on above: PATIENT WAS FASTINGP ERFORMED BY: [place] 1041170 [facility] [id number] MCH (RBC) [Entitic mass] 28.7 pg Normal 26.6-33.0 [facility]; [facility] Work Phone: Comment on above: PATIENT WAS FASTINGP ERFORMED BY: [facility]6370 [facility] [id number] MCHC (RBC) [Mass/Vol] 32.2 g/dL Normal 31.5-35.7 [facility] prehensive [facility]; [facility] Work Phone: Comment on above: PATIENT WAS FASTINGP ERFORMED BY: LabHenry [facility]6370 [facility] [id number] MCV (RBC) [Entitic vol] 89 fL Normal 79-97 C omprehensive [facility]; [facility] Work Phone: Comment on above: PATIENT WAS FASTINGP ERFORMED BY: LabHenry [facility]6370 [facility] [id number] Monocytes (Bld) [#/Vol] 0.5 10*3/uL Normal 0.1-0.9 [facility]; [facility] Work Phone: Comment on above: PATIENT WAS FASTINGP ERFORMED BY: [facility] Bmotqv69[address] RoadDublin [place] [id number] Monocytes/100 WBC (Bld) 13 % Normal C omprehensive [facility]; [facility] Work Phone: Comment on above: PATIENT WAS FASTINGP ERFORMED BY: OLIVIA [facility] Ooqrxh48[address] RoadDublin [place] [id number] Neutrophils (Bld) [#/Vol] 2.0 10*3/uL Normal 1.4-7.0 [facility]; [facility] Work Phone: Comment on above: PATIENT WAS FASTINGP ERFORMED BY: [facility] Dnygck8925 [address] RoadDublin [place] [id number] Neutrophils/100 WBC (Bld) 52 % Normal [facility]; [facility] Work Phone: Comment on above: PATIENT WAS FASTINGP ERFORMED BY: LabScotland [facility] Dktstr0425 [address] RoadDublin [place] [id number] Platelets (Bld) [#/Vol] 285 10*3/uL Normal 150-450 [facility]; [facility] Work Phone: Comment on above: PATIENT WAS FASTINGP ERFORMED BY: [facility] Supxum07[address] RoadDublin [place] [id number] RBC (Bld) [#/Vol] 4.67 10*6/uL Normal 3.77-5.28 Compr ehensive [facility]; [facility] Work Phone: Comment on above: PATIENT WAS FASTINGP ERFORMED BY: [facility] Cdobyd4774 [address] RoadDublin [place] [id number] WBC (Bld) [#/Vol] 3.9 10*3/uL Normal 3.4-10.8 Compre [facility]; [facility] Work Phone: Comment on above: PATIENT WAS FASTINGP ERFORMED BY: OLIVIA [facility] Zslvjf70[address] RoadDublin [place] [id number] LIPID PANEL (13082)Ordered B y: Truckman on 03-26-2021 Cholesterol [Mass/Vol] 185 mg/dL Normal 100-199 Co [facility] hospitalensive [facility]; [facility] Work Phone: Comment on above: PATIENT WAS FASTINGP ERFORMED BY: OLIVIA LabCoangela Gvaehn[address] [facility] Hospitalblin [place] [id number] Cholesterol in HDL [Mass/Vol] 51 mg/dL Normal [facility]; [facility] Work Phone: Comment on above: PATIENT WAS FASTINGP ERFORMED BY: CB [facility] Ubicnq26[address] Roadblin [place] [id number] Triglyceride [Mass/Vol] 63 mg/dL Normal 0-149 C [facility] healthensive [facility]; [facility] Work Phone: Comment on above: PATIENT WAS FASTINGP ERFORMED BY: OLIVIA [facility] [address]fcmu[address] [facility]in [place] [id number] LIPID PANEL (84819) 12 mg/dL Normal 5-40 [facility] Centerens[facility]; [facility] Work Phone: Comment on above: PATIENT WAS FASTINGP ERFORMED BY: OLIVIA [facility] Xvpakb[address] [facility]in [place] [id number] LIPID PANEL (82332) 122 mg/dL Abnormal 0-99 [facility] Centerens[facility]; [facility] Work Phone: Comment on above: PATIENT WAS FASTINGP ERFORMED BY: OLIVIA [facility] Skpxfb[address] [facility] Hospitalblin [place] [id number] LIPID PANEL (91379) 2.4 {ratio} Normal 0.0-3.2 Comp [facility]thensive [facility]; [facility] Work Phone: Comment on above: LDL/HDL Ratio Men Wo men 1/2 Avg.Risk 1.0 1.5 Avg.Risk 3.6 3.2 2X Avg.Risk 6.2 5.0 3X Avg.Risk 8.0 6.1 PATIENT WAS FASTINGP ERFORMED BY: CB [facility] Kvrbfe[address] [facility] AlpenaDublin [place] [id number] METABOLIC PANEL, COMPREHENSI VE (58512)Ordered By: Truckman on 03-26-2021 Albumin [Mass/Vol] 4.4 g/dL Normal 3.8-4.8 [facility]; [facility] Work Phone: Comment on above: PATIENT WAS FASTINGP ERFORMED BY: OLIVIA [facility] Bkcbgk3474 [address] RoadDublin [place] [id number] Albumin/Globulin [Mass ratio] 1.9 {ratio} Normal 1.2-2.2 [facility]; [facility] Work Phone: Comment on above: PATIENT WAS FASTINGP ERFORMED BY: CB [facility] Bhozaf6073 [address] RoadDublin [place] [id number] ALP [Catalytic activity/Vol] 64 U/L Normal 48-121 [facility]; [facility] Work Phone: Comment on above: PATIENT WAS FASTINGP ERFORMED BY: CB [facility] Gkujsb9471 [address] RoadDublin [place] [id number] ALT [Catalytic activity/Vol] 16 U/L Normal 0-32 [facility]; [facility] Work Phone: Comment on above: PATIENT WAS FASTINGP ERFORMED BY: [facility] Zhlmzg2245 [address] RoadDublin [place] [id number] AST [Catalytic activity/Vol] 20 U/L Normal 0-40 [facility] Internal [facility]; [facility] Work Phone: Comment on above: PATIENT WAS FASTINGP ERFORMED BY: [facility] Tigmfm4663 [address] RoadDublin [place] [id number] Bilirubin [Mass/Vol] 0.5 mg/dL Normal 0.0-1.2 [facility] Internal [facility]; [facility] Work Phone: Comment on above: PATIENT WAS FASTINGP ERFORMED BY: CB [facility] Vxhvtp1039 [address] RoadDublin [place] [id number] Calcium [Mass/Vol] 9.4 mg/dL Normal 8.7-10.3 [facility]; [facility] Work Phone: Comment on above: PATIENT WAS FASTINGP ERFORMED BY: CB [facility] Wtzbfc8917 [address] RoadDublin [place] [id number] Chloride [Moles/Vol] 106 mmol/L Normal 96-106 Comp rehensive [facility]; [facility] Work Phone: Comment on above: PATIENT WAS FASTINGP ERFORMED BY: EdmarCo Gxdtms1178 [facility] [id number] CO2 [Moles/Vol] 25 mmol/L Normal 20-29 [facility]pre[facility]; [facility] Work Phone: Comment on above: PATIENT WAS FASTINGP ERFORMED BY: [facility] Nawxjc5663 [facility] [id number] Creatinine [Mass/Vol] 1.00 mg/dL Normal 0.57-1.00 Com prehensive [facility]; [facility] Work Phone: Comment on above: PATIENT WAS FASTINGP ERFORMED BY: [facility]marSc[facility] Yexiev7465 [facility] [id number] GFR/1.73 sq M.predicted among blacks CKD-EPI (S/P/Bld) [Vol rate/Area] 67 mL/min/1.73 Normal [facility]; [facility] Work Phone: Comment on above: [facility] currently reports eGFR in compliance with the current recommendations of the National Kidney Foundation. [facility]Bookwright [facility] will update reporting as new guidelines are published from the NKF-ASN Task force. PATIENT WAS FASTINGP ERFORMED BY: [facility] Lxfvyj9580 [facility] [id number] GFR/1.73 sq M.predicted among non-blacks CKD-EPI (S/P/Bld) [Vol rate/Area] 58 mL/min/1.73 Abnormal [facility]; [facility] Work Phone: Comment on above: PATIENT WAS FASTINGP ERFORMED BY: Lab[facility] Vomcqu6204 [facility] [id number] Globulin (S) [Mass/Vol] 2.3 g/dL Normal 1.5-4.5 C omprehensive [facility]; [facility] Work Phone: Comment on above: PATIENT WAS FASTINGP ERFORMED BY: LabScotland [facility] Jquluo0251 [facility] [id number] Glucose [Mass/Vol] 91 mg/dL Normal 65-99 [facility]; [facility] Work Phone: Comment on above: PATIENT WAS FASTINGP ERFORMED BY: OLIVIA LabBisi Salazar[address] [facility]in [place] [id number] Potassium [Moles/Vol] 4.5 mmol/L Normal 3.5-5.2 [facility]; [facility] Work Phone: Comment on above: PATIENT WAS FASTINGP ERFORMED BY: OLIVIA [facility] [address]bnp[address] [facility] [id number] Protein [Mass/Vol] 6.7 g/dL Normal 6.0-8.5 [facility]; [facility] Work Phone: Comment on above: PATIENT WAS FASTINGP ERFORMED BY: OLIVIA LabVictor M Ndigcm[address] [facility] [id number] Sodium [Moles/Vol] 144 mmol/L Normal 134-144 [facility]; [facility] Work Phone: Comment on above: PATIENT WAS FASTINGP ERFORMED BY: OLIVIA [facility] Zwbcqq[address] [facility]in [place] [id number] Urea nitrogen [Mass/Vol] 18 mg/dL Normal 8-27 [facility]; [facility] Work Phone: Comment on above: PATIENT WAS FASTINGP ERFORMED BY: LabCo Mruxrk9906 [facility] [id number] Urea nitrogen/Creatinine [Mass ratio] 18 mg/mg Normal 12-28 [facility]; [facility] Work Phone: Comment on above: PATIENT WAS FASTINGP ERFORMED BY: OLIVIA [facility] Hbqvrp[address] [facility]in [place] [id number] TSH ([id number])Ordered By: Geneva Gorman on 03-26-2021 TSH Qn 0.543 {uIU/mL} Normal 0.450-4.50 0 [facility]; [facility] Work Phone: Comment on above: PATIENT WAS FASTINGP ERFORMED BY: OLIVIA Sting CommunicationsHealthSouth - Rehabilitation Hospital of Toms RiverKcyvxy5603 [facility] [id number] HgA1C , Office ([id number])Ordere d By: Sakina Kelsey on 05-01-2020 HbA1c (Bld) [Mass fraction] 5.6 % Normal 4.6 - 7.1 [facility] Work Phone: CALCIFIDIOL ([id number]) VIT D 25 Ordered By: Truckman on 04-17-2020 25-Hydroxyvitamin D2+25-Hydroxyvitamin D3 [Mass/Vol] 48.2 ng/mL Normal 30.0-100.0 [facility] Work Phone: Comment on above: Vitamin D deficiency has been defined by the [place] of[place]icine and an Endocrine Society practice guideline as alevel of serum 25-OH vitamin D less than 20 ng/mL (1,2).The Endocrine Society went on to further define vitamin Dinsufficiency as a level between 21 and 29 ng/mL (2).1. IOM ([place] of Medicine). 2010. Dietary reference intakes for calcium and D. [place]: The National Academies Press.2. Andrey MF, Dago RAMIREZ, Cuauhtemoc MOSS, et al. Evaluation, treatment, and prevention of vitamin D deficiency: an Endocrine Society clinical practice guideline. JCEM. 2010; 96(7):1911-30. Test(s) 208463-ZWU-C ; 165990-YJR-U; 857689-MYY-Y; 366815-Biptyjfaaowkl; 076078-Gpcldxmrrai, Total; 687873-REV-W (Total);460009-Yyvex LDL-P; 958535-WDY Size; 725828-DE-ZB Scorewas developed and its performance characteristics determinedby [employer]. It has not been cleared or approved by the Foodand Drug Administration.PATIENT WAS FASTINGPERFORMED BY: OpenBook[address] [id number] BY: Sting CommunicationsHealthSouth - Rehabilitation Hospital of Toms RiverWxshlz5694 [facility] [id number] CBC W/AUTO DIFF WBC (27271)O rdered By: Truckman on 04-17-2020 Basophils (Bld) [#/Vol] 0.0 {x10E3/uL} Normal 0.0-0.2 [facility] Work Phone: Comment on above: Test(s) 818728-OJM-K ; 564704-UJV-M; 634661-JBY-R; 039651-Uxhkbgtzkxjuj; 028885-Lelfbmsdken, Total; 767134-YTU-J (Total);522631-Vkwlr LDL-P; 977624-SHT Size; 946843-VL-YY Scorewas developed and its performance characteristics determinedby [employer]. It has not been cleared or approved by the Foodand Drug Administration.PATIENT WAS FASTINGPERFORMED BY: avocadostore[address] [id number] BY: Beanstalk Tax70 [facility] [id number] Basophils (Bld) [#/Vol] 0.0 10*3/uL Normal 0.0-0.2 [facility]; [facility] Work Phone: Comment on above: Test(s) 060594-QII-L ; 683372-TBA-I; 552671-UHG-L; 270534-Srwygstqjfvyu; 253643-Ykuhpoukjka, Total; 239864-NAY-D (Total);905874-Ektfr LDL-P; 428714-FAH Size; 442032-BI-QG Scorewas developed and its performance characteristics determinedby [employer]. It has not been cleared or approved by the Foodand Drug Administration.PATIENT WAS FASTINGPERFORMED BY: avocadostore[address] [id number] BY: [employer]6370 [facility] [id number] Basophils/100 WBC (Bld) 1 % Normal C ompinscription house health center Internal Medicine Work Phone: Comment on above: Test(s) 888050-ZHS-Z ; 823595-RJQ-N; 171124-SUL-P; 970131-Zsdvbvmyitcqa; 314742-Vnpbobyiuuh, Total; 375893-DWM-H (Total);080708-Eeffc LDL-P; 445191-FZC Size; 004974-EV-YL Scorewas developed and its performance characteristics determinedby [employer]. It has not been cleared or approved by the Foodand Drug Administration.PATIENT WAS FASTINGPERFORMED BY: flo.do[address] [id number] BY: [employer] Uqnvaq2121 [place] SheologyAtrium Health Providence [id number] Eosinophils (Bld) [#/Vol] 0.1 {x10E3/uL} Normal 0.0-0.4 [facility] Work Phone: Comment on above: Test(s) 495605-WEK-F ; 344644-MEZ-W; 343063-FUB-Z; 440140-Pcvinsqjzjswc; 608035-Wrcrkmljqsq, Total; 615575-NUN-O (Total);056125-Tnisj LDL-P; 019199-ZFK Size; 791895-JZ-AQ Scorewas developed and its performance characteristics determinedby [employer]. It has not been cleared or approved by the Foodand Drug Administration.PATIENT WAS FASTINGPERFORMED BY: [employer] - Dein Lernprogramm im Leben [address] [id number] BY: [employer]70 [facility] [id number] Eosinophils (Bld) [#/Vol] 0.1 10*3/uL Normal 0.0-0.4 [facility]; [facility] Work Phone: Comment on above: Test(s) 106594-FYL-Z ; 853294-MIH-A; 537334-URO-P; 037251-Ixndlzcgfjcfi; 623514-Fubngmhbfdb, Total; 034847-LMS-G (Total);616825-Yjudy LDL-P; 025341-UBY Size; 812112-PN-NN Scorewas developed and its performance characteristics determinedby [employer]. It has not been cleared or approved by the Foodand Drug Administration.PATIENT WAS FASTINGPERFORMED BY: [employer] - Dein Lernprogramm im [employer] [address] [id number] BY: [employer] Atbolt3283 [facility] [id number] Eosinophils/100 WBC (Bld) 2 % Normal [facility] Work Phone: Comment on above: Test(s) 642958-UPT-X ; 597693-CBI-X; 682818-ZJV-O; 118688-Rijjadxjkqmpb; 597440-Mwyecmkpryi, Total; 992869-SUK-Z (Total);384196-Qdndc LDL-P; 140987-JVD Size; 802274-QT-ER Scorewas developed and its performance characteristics determinedby [employer]. It has not been cleared or approved by the Foodand Drug Administration.PATIENT WAS FASTINGPERFORMED BY: [employer] - Dein Lernprogram[employer] im [employer] [address] [id number] BY: [employer] Qkwezx9322 [facility] [id number] Erythrocyte distribution width (RBC) [Ratio] 13.6 % Normal 11.7-15.4 [facility] Work Phone: Comment on above: Test(s) 730908-VNL-X ; 048910-HBJ-F; 454331-JSC-D; 116876-Gwiwvisqgpmnr; 235564-Qonhdttjyis, Total; 068452-KMT-Z (Total);379318-Qsnzf LDL-P; 126903-NHL Size; 948172-WY-YO Scorewas developed and its performance characteristics determinedby [employer]. It has not been cleared or approved by the Foodand Drug Administration.PATIENT WAS FASTINGPERFORMED BY: [employer] [address] [id number] BY: Sting CommunicationsHealthSouth - Rehabilitation Hospital of Toms RiverLqeksq7548 [facility] [id number] Hematocrit (Bld) [Volume fraction] 35.6 % Normal 34.0-46.6 [facility] Work Phone: Comment on above: Test(s) 134576-OIW-K ; 913243-NJL-A; 116431-NIL-X; 851427-Chbxcpqfmbhng; 374413-Uwnlgcnvwfm, Total; 771816-YYO-O (Total);074277-Abohh LDL-P; 197362-NCC Size; 744746-DB-QR Scorewas developed and its performance characteristics determinedby [employer]. It has not been cleared or approved by the Foodand Drug Administration.PATIENT WAS FASTINGPERFORMED BY: [employer] - Dein [employer]ernprogram[employer] im [employer] [address] [id number] BY: [employer] Qowrtb6391 [facility] [id number] Hemoglobin (Bld) [Mass/Vol] 12.0 g/dL Normal 11.1-15.9 [facility] Work Phone: Comment on above: Test(s) 695526-QHW-C ; 741764-HRJ-S; 448067-OVG-C; 794900-Vukgsnxqgfggl; 077261-Ezpsmloeswy, Total; 072567-ABV-L (Total);951296-Masfl LDL-P; 260509-YMG Size; 523585-ER-SI Scorewas developed and its performance characteristics determinedby [employer]. It has not been cleared or approved by the Foodand Drug Administration.PATIENT WAS FASTINGPERFORMED BY: [employer] - Dein [employer]ernprogram[employer] im [employer] [address] [id number] BY: [employer]70 [facility] [id number] Immature granulocytes (Bld) [#/Vol] 0.0 {x10E3/uL} Normal 0.0-0.1 [facility] Work Phone: Comment on above: Test(s) 270781-QLN-V ; 494365-QDU-W; 525760-DAM-C; 438173-Cdpljbkmyozlj; 367294-Hollxobwash, Total; 664314-QFZ-J (Total);001346-Fovyf LDL-P; 439065-IQQ Size; 584414-XI-FD Scorewas developed and its performance characteristics determinedby [employer]. It has not been cleared or approved by the Foodand Drug Administration.PATIENT WAS FASTINGPERFORMED BY: [employer] - Dein Lernprogramm im [employer] [address] [id number] BY: [employer]70 [facility] [id number] Immature granulocytes (Bld) [#/Vol] 0.0 10*3/uL Normal 0.0-0.1 [facility]; [facility] Work Phone: Comment on above: Test(s) 922648-QFB-T ; 974231-JPC-C; 905435-FVI-U; 037124-Dpjjmosoppkjy; 228418-Cqlmqqwhtnd, Total; 790790-RYI-Q (Total);920161-Kczre LDL-P; 071386-EEN Size; 412798-FN-WW Scorewas developed and its performance characteristics determinedby [employer]. It has not been cleared or approved by the Foodand Drug Administration.PATIENT WAS FASTINGPERFORMED BY: avocadostore[address] [id number] BY: [employer]6370 [facility] [id number] Immature granulocytes/100 WBC (Bld) 0 % Normal [facility] Work Phone: Comment on above: Test(s) 859767-EYA-L ; 729319-VII-R; 531070-PGZ-K; 200708-Lacqfwyjkdjek; 066397-Uiwmrxdyltq, Total; 251283-WUJ-O (Total);156573-Tnxhp LDL-P; 730284-PFY Size; 705127-NQ-CB Scorewas developed and its performance characteristics determinedby [employer]. It has not been cleared or approved by the Foodand Drug Administration.PATIENT WAS FASTINGPERFORMED BY: avocadostore[address] [id number] BY: [employer] Wivlls2993 [facility] [id number] Lymphocytes (Bld) [#/Vol] 1.5 {x10E3/uL} Normal 0.7-3.1 [facility] Work Phone: Comment on above: Test(s) 211608-MAP-G ; 686273-JLH-T; 688852-NWT-C; 621818-Xbtllswqtqwbh; 832754-Pzjrrgbocrt, Total; 088736-LJM-L (Total);967660-Xxhke LDL-P; 292793-IQY Size; 538035-QT-LT Scorewas developed and its performance characteristics determinedby [employer]. It has not been cleared or approved by the Foodand Drug Administration.PATIENT WAS FASTINGPERFORMED BY: [employer] - Dein Lernprogram[employer] im [employer] [address] [id number] BY: [employer]70 [facility]RadioAs[facility] [id number] Lymphocytes (Bld) [#/Vol] 1.5 10*3/uL Normal 0.7-3.1 [facility]; [facility] Work Phone: Comment on above: Test(s) 022079-SNK-D ; 452282-ESO-H; 783833-MDY-E; 673337-Jhbmletkmlisi; 262603-Bzjshvbypnx, Total; 132137-JQG-N (Total);354509-Snydz LDL-P; 970539-BLH Size; 409674-BC-SV Scorewas developed and its performance characteristics determinedby [employer]. It has not been cleared or approved by the Foodand Drug Administration.PATIENT WAS FASTINGPERFORMED BY: [employer] - Dein Lernprogramm im [employer] [address] [id number] BY: [employer] Tax70 [facility]As[facility] [id number] Lymphocytes/100 WBC (Bld) 31 % Normal [facility] Internal Medicine Work Phone: Comment on above: Test(s) 281871-QCP-P ; 034925-XZK-E; 481715-JBA-J; 869312-Thjcrnkcrvexz; 217717-Lnvrumfrruk, Total; 246792-PUN-K (Total);757309-Ublcz LDL-P; 407214-WAU Size; 972618-ON-NA Scorewas developed and its performance characteristics determinedby [employer]. It has not been cleared or approved by the Foodand Drug Administration.PATIENT WAS FASTINGPERFORMED BY: [employer] - Dein Lernprogramm im Leben [address] [id number] BY: [employer]6370 [facility]ologyAt[facility] [id number] MCH (RBC) [Entitic mass] 31.3 pg Normal 26.6-33.0 [facility] Internal Medicine Work Phone: Comment on above: Test(s) 259617-MPZ-B ; 314318-RZW-F; 940353-ZAZ-W; 280085-Lufeumzxhtjoc; 354033-Fkwuiiccsca, Total; 380018-JCY-S (Total);566957-Ysqnj LDL-P; 934604-NEG Size; 064222-VP-NV Scorewas developed and its performance characteristics determinedby [employer]. It has not been cleared or approved by the Foodand Drug Administration.PATIENT WAS FASTINGPERFORMED BY: avocadostore[address] [id number] BY: [employer]70 [facility] [id number] MCHC (RBC) [Mass/Vol] 33.7 g/dL Normal 31.5-35.7 [facility] Internal Medicine Work Phone: Comment on above: Test(s) 437627-QAU-V ; 943443-DGA-M; 111813-PUK-E; 387427-Xftedecaadhkm; 900001-Dmlwbrwknwk, Total; 052780-RCP-E (Total);163851-Ukaio LDL-P; 294931-SQC Size; 432167-XR-CE Scorewas developed and its performance characteristics determinedby [employer]. It has not been cleared or approved by the Foodand Drug Administration.PATIENT WAS FASTINGPERFORMED BY: avocadostore[address] [id number] BY: [employer]6370 [facility] [id number] MCV (RBC) [Entitic vol] 93 fL Normal 79-97 [facility] Work Phone: Comment on above: Test(s) 793595-KCK-X ; 840422-ACX-W; 234318-LWF-D; 094224-Yhfrjejpegaez; 731319-Wxfylkwwjof, Total; 849601-RMS-N (Total);969596-Jjckr LDL-P; 123390-FSI Size; 871776-OU-FY Scorewas developed and its performance characteristics determinedby [employer]. It has not been cleared or approved by the Foodand Drug Administration.PATIENT WAS FASTINGPERFORMED BY: Sting Communications[address] [id number] BY: [employer] Vrhfjt2577 [facility] SheologyAt[facility] [id number] Monocytes (Bld) [#/Vol] 0.7 {x10E3/uL} Normal 0.1-0.9 [facility] Internal Medicine Work Phone: Comment on above: Test(s) 275214-UAJ-U ; 627460-RAU-O; 278550-DGQ-A; 458282-Mobnzgdmhmgug; 339367-Wdeiqoawzuu, Total; 839122-OYC-Q (Total);903530-Hyuxk LDL-P; 630976-EKF Size; 890201-UP-CY Scorewas developed and its performance characteristics determinedby [employer]. It has not been cleared or approved by the Foodand Drug Administration.PATIENT WAS FASTINGPERFORMED BY: [employer] - Dein Lernprogramm im Leben [address] [id number] BY: [employer] Fyojdu1182 [facility] [id number] Monocytes (Bld) [#/Vol] 0.7 10*3/uL Normal 0.1-0.9 [facility]; [facility] Internal Medicine Work Phone: Comment on above: Test(s) 685114-GDA-Z ; 289358-EHW-V; 382785-DNB-E; 079080-Hfznmdoqreblw; 674108-Bbehknjkhce, Total; 964830-SLM-U (Total);364877-Vidoq LDL-P; 699017-YJG Size; 655806-GK-BJ Scorewas developed and its performance characteristics determinedby [employer]. It has not been cleared or approved by the Foodand Drug Administration.PATIENT WAS FASTINGPERFORMED BY: [employer] [id number] BY: [employer] Qsjnin9235 [facility] [id number] Monocytes/100 WBC (Bld) 14 % Normal [facility] Work Phone: Comment on above: Test(s) 627666-MXE-K ; 586553-OUX-E; 735922-TOY-S; 473189-Zvvitnsxmuxsa; 425062-Mxildwssuuf, Total; 414350-GXE-M (Total);405350-Xvwew LDL-P; 569285-LPL Size; 043712-RY-QP Scorewas developed and its performance characteristics determinedby [employer]. It has not been cleared or approved by the Foodand Drug Administration.PATIENT WAS FASTINGPERFORMED BY: avocadostore[address] [id number] BY: [employer]70 [facility] [id number] Neutrophils (Bld) [#/Vol] 2.5 {x10E3/uL} Normal 1.4-7.0 [facility] Work Phone: Comment on above: Test(s) 918578-CQQ-Z ; 987798-MUV-D; 043784-DWN-Y; 027609-Vytgocwsijzrm; 874227-Dkfjojngfsv, Total; 839042-IJY-V (Total);388229-Inwmz LDL-P; 806794-GJN Size; 519710-NL-WU Scorewas developed and its performance characteristics determinedby [employer]. It has not been cleared or approved by the Foodand Drug Administration.PATIENT WAS FASTINGPERFORMED BY: [employer] - Dein [employer]ernprogram[employer] im Le[employer] [address] [id number] BY: [employer] Rifzla4436 [facility] [id number] Neutrophils (Bld) [#/Vol] 2.5 10*3/uL Normal 1.4-7.0 [facility]; [facility] Work Phone: Comment on above: Test(s) 782143-OSE-B ; 430811-DRJ-O; 325163-WRN-X; 432215-Nwhsdbgmlfobj; 781311-Aggumwpjzcl, Total; 455844-XZT-U (Total);687238-Cumoh LDL-P; 964212-MZX Size; 045485-TR-TC Scorewas developed and its performance characteristics determinedby [employer]. It has not been cleared or approved by the Foodand Drug Administration.PATIENT WAS FASTINGPERFORMED BY: [employer] - Dein [employer] im [employer] [address] [id number] BY: [employer]70 [facility] [id number] Neutrophils/100 WBC (Bld) 52 % Normal [facility] Work Phone: Comment on above: Test(s) 314452-ELL-A ; 758581-ETO-P; 994814-BFG-A; 152145-Jykxevdyozasc; 757514-Yszefbpzwdk, Total; 249993-TUM-E (Total);648431-Itpuf LDL-P; 947791-KWZ Size; 905703-WX-CA Scorewas developed and its performance characteristics determinedby [employer]. It has not been cleared or approved by the Foodand Drug Administration.PATIENT WAS FASTINGPERFORMED BY: [employer] - Dein [employer] im [employer] [address] [id number] BY: [employer]70 [facility] [id number] Platelets (Bld) [#/Vol] 229 {x10E3/uL} Normal 150-450 [facility] Work Phone: Comment on above: Test(s) 365047-CNM-L ; 656434-LAH-O; 625423-QWO-R; 549957-Injbuqguiljwv; 298576-Fiqolbfukir, Total; 009151-CUR-L (Total);809680-Sflbq LDL-P; 483465-GDT Size; 915655-MS-XQ Scorewas developed and its performance characteristics determinedby [employer]. It has not been cleared or approved by the Foodand Drug Administration.PATIENT WAS FASTINGPERFORMED BY: [employer] - Dein Lernprogram[employer] im [employer] [address] [id number] BY: [employer] Oniott2097 [facility] [id number] Platelets (Bld) [#/Vol] 229 10*3/uL Normal 150-450 [facility] Internal [facility]; [facility] Internal Medicine Work Phone: Comment on above: Test(s) 613564-MTP-W ; 593392-PHA-A; 474495-ADF-Q; 085310-Jdttejmozlgbu; 744257-Ycwploszksc, Total; 439128-VKL-T (Total);276262-Uldxf LDL-P; 807265-IWA Size; 344040-AF-II Scorewas developed and its performance characteristics determinedby [employer]. It has not been cleared or approved by the Foodand Drug Administration.PATIENT WAS FASTINGPERFORMED BY: [employer] [place] [address] [id number] BY: [employer]70 [facility] [id number] RBC (Bld) [#/Vol] 3.83 {x10E6/uL} Normal 3.77-5.28 [facility] Work Phone: Comment on above: Test(s) 671917-RBH-V ; 989159-ZPA-P; 721906-QIS-E; 730401-Stqrqryrrxiaf; 936547-Mvgnzsbviuz, Total; 333898-VQL-E (Total);299165-Aymma LDL-P; 936825-TKJ Size; 235487-GX-KH Scorewas developed and its performance characteristics determinedby [employer]. It has not been cleared or approved by the Foodand Drug Administration.PATIENT WAS FASTINGPERFORMED BY: avocadostoreton1447 [facility] [id number] BY: [employer]6370 [facility] [id number] RBC (Bld) [#/Vol] 3.83 10*6/uL Normal 3.77-5.28 [facility] Internal Medicine; [facility] Internal Medicine Work Phone: Comment on above: Test(s) 227405-GNP-X ; 765454-SLC-V; 245958-LAW-J; 948645-Ytczrovvikhds; 743459-Iidxodvdxeg, Total; 073570-SVB-X (Total);380476-Vwaew LDL-P; 330016-JCH Size; 831731-BP-MS Scorewas developed and its performance characteristics determinedby [employer]. It has not been cleared or approved by the Foodand Drug Administration.PATIENT WAS FASTINGPERFORMED BY: [employer] - [employer]in [employer] [address] [id number] BY: Sting CommunicationsHealthSouth - Rehabilitation Hospital of Toms RiverWlpdnu9937 [facility] [id number] WBC (Bld) [#/Vol] 4.7 {x10E3/uL} Normal 3.4-10.8 [facility] Work Phone: Comment on above: Test(s) 397141-BNG-O ; 540229-KQU-R; 150658-WXZ-Y; 942508-Znduqvffynqko; 771575-Fcijatpgkvi, Total; 278246-NQZ-S (Total);744877-Csjgc LDL-P; 004847-WEP Size; 215222-QD-UA Scorewas developed and its performance characteristics determinedby [employer]. It has not been cleared or approved by the Foodand Drug Administration.PATIENT WAS FASTINGPERFORMED BY: [employer] - [employer] [address] [id number] BY: [employer] Fbsklb4569 [facility] [id number] WBC (Bld) [#/Vol] 4.7 10*3/uL Normal 3.4-10.8 [facility] Internal Medicine; [facility] Work Phone: Comment on above: Test(s) 918063-YME-I ; 336782-HFU-L; 918336-AJW-P; 782857-Ahzpvaufcbxfv; 935100-Jtaezgnzfrz, Total; 548488-CPF-R (Total);486271-Kznhe LDL-P; 212568-HGO Size; 991424-HR-NJ Scorewas developed and its performance characteristics determinedby [employer]. It has not been cleared or approved by the Foodand Drug Administration.PATIENT WAS FASTINGPERFORMED BY: [employer] - [employer]in [employer] [address] [id number] BY: [employer]6370 [facility] [id number] METABOLIC PANEL, COMPREHENSI VE (28471)Ordered By: Truckman on 04-17-2020 Albumin [Mass/Vol] 4.0 g/dL Normal 3.8-4.8 [facility] Internal Medicine Work Phone: Comment on above: Test(s) 516600-GTT-P ; 377593-DOI-B; 836571-EGS-Z; 701990-Axjkmdppobjag; 504178-Rebcfpablzt, Total; 573028-HVF-U (Total);947611-Beijx LDL-P; 974458-DGH Size; 538141-EC-SU Scorewas developed and its performance characteristics determinedby [employer]. It has not been cleared or approved by the Foodand Drug Administration.PATIENT WAS FASTINGPERFORMED BY: [employer] - [employer]in [employer] [address] [id number] BY: [employer]6370 [facility] [id number] Albumin/Globulin [Mass ratio] 1.5 {ratio} Normal 1.2-2.2 [facility] Work Phone: Comment on above: Test(s) 629394-KAN-C ; 049427-VAJ-M; 135283-RIY-W; 955546-Hrjmpcwtfjwzv; 298542-Altelbcpsit, Total; 073311-IWF-G (Total);261955-Vzmhp LDL-P; 248208-GOL Size; 845009-PJ-IN Scorewas developed and its performance characteristics determinedby [employer]. It has not been cleared or approved by the Foodand Drug Administration.PATIENT WAS FASTINGPERFORMED BY: avocadostore[address] [id number] BY: [employer]6370 [facility] [id number] ALP [Catalytic activity/Vol] 123 [iU]/L Abnormal 39-117 [facility] Work Phone: Comment on above: Test(s) 382026-EKV-U ; 439765-YUY-N; 240943-RCM-H; 959963-Kdxesxtwevoej; 381495-Xfkptxczzzl, Total; 595344-TCB-S (Total);832288-Bshwi LDL-P; 986948-OBO Size; 393965-SC-JD Scorewas developed and its performance characteristics determinedby [employer]. It has not been cleared or approved by the Foodand Drug Administration.PATIENT WAS FASTINGPERFORMED BY: [employer] [id number] BY: Sting CommunicationsMatthew Ville 3135070 [facility] [id number] ALP [Catalytic activity/Vol] 123 U/L Abnormal 39-117 [facility]; [facility] Work Phone: Comment on above: Test(s) 059958-TDO-I ; 906048-IIU-O; 017395-GOK-Q; 376453-Xozatsbyjjwew; 877733-Valzhmmipve, Total; 215061-BPY-I (Total);911202-Nsqoy LDL-P; 553819-JPN Size; 367927-RM-ZT Scorewas developed and its performance characteristics determinedby [employer]. It has not been cleared or approved by the Foodand Drug Administration.PATIENT WAS FASTINGPERFORMED BY: [employer] [address] [id number] BY: [employer]6370 [facility] [id number] ALT [Catalytic activity/Vol] 10 [iU]/L Normal 0-32 [facility] Work Phone: Comment on above: Test(s) 115617-DJN-M ; 266831-IZD-V; 947289-LMA-V; 891038-Vtalznvfxmeqq; 370450-Tqjkdkhnqzs, Total; 947993-JJN-U (Total);009557-Lnqbi LDL-P; 999273-NJY Size; 706357-GW-GG Scorewas developed and its performance characteristics determinedby [employer]. It has not been cleared or approved by the Foodand Drug Administration.PATIENT WAS FASTINGPERFORMED BY: [employer] [id number] BY: Sting CommunicationsHealthSouth - Rehabilitation Hospital of Toms RiverGzmngb2848 [facility] [id number] ALT [Catalytic activity/Vol] 10 U/L Normal 0-32 [facility]; [facility] Work Phone: Comment on above: Test(s) 539864-HXQ-M ; 591558-RXB-X; 151314-VUU-L; 607610-Ryomztyvcteks; 358210-Dtilupquepz, Total; 574695-FDV-U (Total);175487-Lfrki LDL-P; 057196-FHQ Size; 869221-EK-AP Scorewas developed and its performance characteristics determinedby [employer]. It has not been cleared or approved by the Foodand Drug Administration.PATIENT WAS FASTINGPERFORMED BY: [employer] - [employer]in [employer] im [employer] [address] [id number] BY: [employer]6370 [facility] [id number] AST [Catalytic activity/Vol] 12 [iU]/L Normal 0-40 [facility] Internal Medicine Work Phone: Comment on above: Test(s) 706156-SOP-D ; 235522-HIY-R; 087180-AGQ-F; 057764-Rhcwfczgippkt; 579911-Xywjdyxxjgt, Total; 737485-PKZ-J (Total);751558-Svoyx LDL-P; 218785-ERX Size; 302948-FQ-RW Scorewas developed and its performance characteristics determinedby [employer]. It has not been cleared or approved by the Foodand Drug Administration.PATIENT WAS FASTINGPERFORMED BY: flo.do[address] [id number] BY: Sting CommunicationsHealthSouth - Rehabilitation Hospital of Toms RiverEcwlmh6103 [facility] [id number] AST [Catalytic activity/Vol] 12 U/L Normal 0-40 [facility]; [facility] Work Phone: Comment on above: Test(s) 085863-UVV-G ; 827723-JNZ-E; 716188-UOA-I; 555780-Jfzerhglhyxmy; 886180-Arvubkgpjzl, Total; 401769-MDU-L (Total);628906-Upexm LDL-P; 950349-WOW Size; 951282-GY-FM Scorewas developed and its performance characteristics determinedby [employer]. It has not been cleared or approved by the Foodand Drug Administration.PATIENT WAS FASTINGPERFORMED BY: [employer] - [employer] [address] [id number] BY: [employer] Pwmiqw3751 [facility] [id number] Bilirubin [Mass/Vol] 1.1 mg/dL Normal 0.0-1.2 [facility] Internal Medicine Work Phone: Comment on above: Test(s) 280902-ZZH-T ; 229218-ZMC-Z; 680935-ZAX-J; 993881-Lnwachgtsfedu; 278507-Euowigttbty, Total; 003023-PRV-X (Total);879057-Fsaeb LDL-P; 248892-JHU Size; 424246-CV-FB Scorewas developed and its performance characteristics determinedby [employer]. It has not been cleared or approved by the Foodand Drug Administration.PATIENT WAS FASTINGPERFORMED BY: [employer] - Dein [employer] im [employer] [address] [id number] BY: [employer] Ltggfn3112 [facility] [id number] Calcium [Mass/Vol] 9.5 mg/dL Normal 8.7-10.3 [facility] Internal Medicine Work Phone: Comment on above: Test(s) 674622-WFO-R ; 984534-ZTK-P; 002772-HOZ-E; 750625-Gsbawcvfhksxs; 360686-Vmqjaledpdf, Total; 392088-WUB-X (Total);888708-Qldrs LDL-P; 283457-LOQ Size; 487238-AT-MR Scorewas developed and its performance characteristics determinedby [employer]. It has not been cleared or approved by the Foodand Drug Administration.PATIENT WAS FASTINGPERFORMED BY: [employer] - Dein [employer] im [employer] [address] [id number] BY: [employer]6370 [facility]RadioAs[facility] [id number] Chloride [Moles/Vol] 103 mmol/L Normal 96-106 [facility] Internal Medicine Work Phone: Comment on above: Test(s) 627111-BYM-V ; 471950-ILT-Z; 007580-NDK-F; 096967-Nudhvuvomnspa; 355847-Ghmpaqjirfh, Total; 036662-YVK-D (Total);948544-Zgnxq LDL-P; 171343-SKR Size; 079047-KA-HG Scorewas developed and its performance characteristics determinedby [employer]. It has not been cleared or approved by the Foodand Drug Administration.PATIENT WAS FASTINGPERFORMED BY: avocadostore[address] [id number] BY: [employer]6370 [facility]RadioAs[facility] [id number] CO2 [Moles/Vol] 27 mmol/L Normal 20-29 [facility] Internal Medicine Work Phone: Comment on above: Test(s) 373775-KUM-A ; 607638-DWA-U; 692238-LKR-P; 308495-Ndnqfarkcwhik; 733856-Yzksjcylpgf, Total; 554565-RHK-Z (Total);139172-Sruhn LDL-P; 004765-ZWA Size; 141040-YQ-UF Scorewas developed and its performance characteristics determinedby [employer]. It has not been cleared or approved by the Foodand Drug Administration.PATIENT WAS FASTINGPERFORMED BY: [employer] - Dein Lernprogramm im Leben [address] [id number] BY: [employer]6370 [facility] [id number] Creatinine [Mass/Vol] 0.89 mg/dL Normal 0.57-1.00 [facility] Internal Medicine Work Phone: Comment on above: Test(s) 785990-NJI-W ; 006868-SXE-R; 022425-JLT-U; 513589-Pkxscrzriqyfa; 901345-Qxheejwnopv, Total; 927618-XHY-I (Total);760102-Mhzmr LDL-P; 389525-RIB Size; 696530-OX-MD Scorewas developed and its performance characteristics determinedby [employer]. It has not been cleared or approved by the Foodand Drug Administration.PATIENT WAS FASTINGPERFORMED BY: [employer] - Dein Lernprogramm im Leben [address] [id number] BY: Sting CommunicationsMatthew [place]ille 3135070 [facility] [id number] GFR/1.73 sq M predicted among blacks CKD-EPI (S/P/Bld) [Vol rate/Area] 78 mL/min/1.73 Normal [facility] Work Phone: Comment on above: Test(s) 822360-KNS-H ; 834740-FVD-D; 131243-ITJ-T; 730090-Vefyhldmijutt; 938823-Krbjxomcckr, Total; 131190-BUW-T (Total);962732-Rgwny LDL-P; 210069-PFF Size; 752508-UZ-EZ Scorewas developed and its performance characteristics determinedby [employer]. It has not been cleared or approved by the Foodand Drug Administration.PATIENT WAS FASTINGPERFORMED BY: [employer] - Dein Lernprogramm im Leben [address] [id number] BY: Sting CommunicationsHealthSouth - Rehabilitation Hospital of Toms RiverZzapmd0468 [facility] [id number] GFR/1.73 sq M predicted among non-blacks CKD-EPI (S/P/Bld) [Vol rate/Area] 67 mL/min/1.73 Normal [facility] Work Phone: Comment on above: Test(s) 373440-TOA-B ; 857119-SRF-Y; 568199-ZOM-B; 365914-Irvigqdpbkzhz; 496825-Kwbprryxkft, Total; 849033-BCI-E (Total);808895-Avehw LDL-P; 891339-UUO Size; 527508-JG-RK Scorewas developed and its performance characteristics determinedby [employer]. It has not been cleared or approved by the Foodand Drug Administration.PATIENT WAS FASTINGPERFORMED BY: [employer] - Dein Lernprogramm im Leben [address] [id number] BY: [employer] Qwsexz7029 [facility] [id number] Globulin (S) [Mass/Vol] 2.6 g/dL Normal 1.5-4.5 [facility] healthensive Internal Medicine Work Phone: Comment on above: Test(s) 517524-NYO-Q ; 843161-RZY-A; 842834-IOF-M; 747513-Yxcmvfirsjnyg; 292804-Ffytmexallp, Total; 964618-PEG-D (Total);859729-Phcar LDL-P; 781138-LTJ Size; 042790-RT-TD Scorewas developed and its performance characteristics determinedby [employer]. It has not been cleared or approved by the Foodand Drug Administration.PATIENT WAS FASTINGPERFORMED BY: [employer] - Dein Lernprogramm im Leben [address] [id number] BY: [employer]6370 [facility] [id number] Glucose [Mass/Vol] 104 mg/dL Abnormal 65-99 [facility] Internal Medicine Work Phone: Comment on above: Test(s) 095181-PJK-X ; 298088-XVP-R; 932429-JYG-F; 956861-Cojuwhwobzrut; 798012-Xdighjjpdli, Total; 454260-BJV-C (Total);146788-Cglla LDL-P; 245136-FVE Size; 904297-PI-WZ Scorewas developed and its performance characteristics determinedby [employer]. It has not been cleared or approved by the Foodand Drug Administration.PATIENT WAS FASTINGPERFORMED BY: [employer] - Dein Lernprogramm im Leben Uypwhuglnn9156 [facility] [id number] BY: [employer] Uhbdzm5319 [facility] [id number] Potassium [Moles/Vol] 4.7 mmol/L Normal 3.5-5.2 [facility] Work Phone: Comment on above: Test(s) 996987-CRC-C ; 745418-VBZ-V; 521750-BPU-W; 084915-Psesvqdwtykxu; 736191-Dadicbvjcwg, Total; 911223-XSS-Q (Total);122781-Eywyf LDL-P; 620687-BRF Size; 036020-EH-KQ Scorewas developed and its performance characteristics determinedby [employer]. It has not been cleared or approved by the Foodand Drug Administration.PATIENT WAS FASTINGPERFORMED BY: avocadostore[address] [id number] BY: [employer]70 [facility] [id number] Protein [Mass/Vol] 6.6 g/dL Normal 6.0-8.5 [facility] Internal Medicine Work Phone: Comment on above: Test(s) 308808-VFC-S ; 652784-JQN-H; 678888-EZZ-F; 979855-Tyybcwuixerjf; 663800-Wjirjaoevmj, Total; 068624-JJZ-O (Total);810394-Hanfr LDL-P; 876361-MNA Size; 450377-TL-MT Scorewas developed and its performance characteristics determinedby [employer]. It has not been cleared or approved by the Foodand Drug Administration.PATIENT WAS FASTINGPERFORMED BY: [employer] - Dein Lernprogramm im Leben [address] [id number] BY: [employer] Btftnx4297 [facility] [id number] Sodium [Moles/Vol] 143 mmol/L Normal 134-144 [facility] Internal Medicine Work Phone: Comment on above: Test(s) 227450-MQP-A ; 654120-GTD-F; 141205-DVI-G; 499323-Eghdbyjwqpevq; 237339-Knhdwnahzbr, Total; 296776-RZQ-T (Total);239465-Lsrqn LDL-P; 739274-DOD Size; 905988-KD-RW Scorewas developed and its performance characteristics determinedby [employer]. It has not been cleared or approved by the Foodand Drug Administration.PATIENT WAS FASTINGPERFORMED BY: [employer] - Dein Lernprogramm im Leben [address] [id number] BY: [employer]6370 [facility] [id number] Urea nitrogen [Mass/Vol] 12 mg/dL Normal 8 [facility] Work Phone: Comment on above: Test(s) 354238-TAT-B ; 207426-SKV-V; 052855-KWT-S; 457649-Nbbmhocrcdbzs; 732624-Vensmfyanrh, Total; 676880-VZA-A (Total);230777-Cpdqn LDL-P; 055345-MVI Size; 462794-ZA-HW Scorewas developed and its performance characteristics determinedby [employer]. It has not been cleared or approved by the Foodand Drug Administration.PATIENT WAS FASTINGPERFORMED BY: [employer] - Dein Lernprogramm im Leben [address] [id number] BY: [employer]6370 [facility] [id number] Urea nitrogen/Creatinine [Mass ratio] 13 mg/mg Normal 08-31 [facility] Internal Medicine Work Phone: Comment on above: Test(s) 409763-UPN-J ; 516352-YIO-Y; 811587-JFQ-A; 769035-Nrcnutxisosto; 440641-Tvxmnetmfbi, Total; 434815-MYR-E (Total);048777-Utqyi LDL-P; 297876-WBM Size; 397980-JT-YU Scorewas developed and its performance characteristics determinedby [employer]. It has not been cleared or approved by the Foodand Drug Administration.PATIENT WAS FASTINGPERFORMED BY: [employer] - Dein Lernprogramm im Leben [address] [id number] BY: [employer] Nwrtll2042 [facility] [id number] NMR Profile (30443)Ordered B y: Truckman on 04-17-2020 Cholesterol [Mass/Vol] 196 mg/dL Normal 100-199 [facility] Internal Medicine Work Phone: Comment on above: Test(s) 766747-XWH-F ; 965053-NDG-X; 889276-PYD-X; 204374-Kkapefrnpelde; 541897-Thidhdezkpv, Total; 824571-ACB-I (Total);166315-Xfbxf LDL-P; 265012-YTT Size; 961474-FU-KR Scorewas developed and its performance characteristics determinedby [employer]. It has not been cleared or approved by the Foodand Drug Administration.PATIENT WAS FASTINGPERFORMED BY: [employer] - Dein Lernprogramm im Leben [address] [id number] BY: [employer]70 Energy Storage SystemsAtrium Health Providence [id number] Lipoprotein.alpha [Moles/Vol] 30.1 umol/L Abnormal [facility] Internal Medicine Work Phone: Comment on above: Test(s) 347022-LGP-U ; 702480-MAQ-U; 405865-PKZ-G; 683700-Zjyreqptpmnam; 616438-Wusutytywsx, Total; 074925-OMV-J (Total);085511-Slolm LDL-P; 664381-AJK Size; 945612-HY-IM Scorewas developed and its performance characteristics determinedby [employer]. It has not been cleared or approved by the Foodand Drug Administration.PATIENT WAS FASTINGPERFORMED BY: [employer] - Dein Lernprogramm im Leben [address] [id number] BY: [employer]70 [facility] [id number] Lipoprotein.beta.subpar ticle [Entitic length] 21.5 nm Normal [facility] Internal Medicine Work Phone: Comment on [...] not afterLDL-P is taken into account. Test(s) 381481-PMB-S ; 612010-NQG-M; 389867-PPZ-V; 148375-Kdxkyndmmazhb; 882906-Hjmlxquutrx, Total; 659443-WLG-N (Total);706175-Rffeb LDL-P; 375415-FTI Size; 756303-AJ-JV Scorewas developed and its performance characteristics determinedby [employer]. It has not been cleared or approved by the Foodand Drug Administration.PATIENT WAS FASTINGPERFORMED BY: avocadostore[address] [id number] BY: [employer] New MediaAsheville Specialty Hospital [id number] Lipoprotein.beta.subpar ticle [Moles/Vol] 1373 nmol/L Abnormal [facility] Work Phone: Comment on above: Low < 1000 Moderate 1000 - 1299 Borderline-High 1300 - 1599 High 1600 - 2000 Very High > 2000 Test(s) 408199-IIU-D ; 294176-RKW-V; 087198-SML-N; 073723-Bkdmtowcoubcc; 560378-Sfozpgfhqcy, Total; 180345-WUA-C (Total);072807-Ishzp LDL-P; 095944-JEK Size; 446078-DK-UA Scorewas developed and its performance characteristics determinedby [employer]. It has not been cleared or approved by the Foodand Drug Administration.PATIENT WAS FASTINGPERFORMED BY: [employer] - Dein Lernprogramm im Leben [address] [id number] BY: NVMduranceAtrium Health Providence [id number] Lipoprotein.beta.subpar ticle.small [Moles/Vol] 400 nmol/L Normal Comprehe nsive Internal Medicine Work Phone: Comment on above: Test(s) 112256-GFI-D ; 288468-NHJ-V; 187230-JPG-J; 500467-Vyhxmzgquznlj; 949412-Iidfacsvfus, Total; 073940-SKB-O (Total);391465-Ehwtg LDL-P; 570999-ZYP Size; 741283-FA-IW Scorewas developed and its performance characteristics determinedby [employer]. It has not been cleared or approved by the Foodand Drug Administration.PATIENT WAS FASTINGPERFORMED BY: [employer] [place] [address] [id number] BY: [employer] [facility] [id number] Triglyceride [Mass/Vol] 100 mg/dL Normal 0-149 [facility] Internal [facility] Work Phone: Comment on above: Test(s) 298017-KUT-S ; 640985-UDP-W; 762740-OTD-T; 654442-Rckjcnrvcwdno; 397132-Meueprbhmqt, Total; 940491-SUC-L (Total);255664-Itmez LDL-P; 098213-BBO Size; 765178-ZH-CL Scorewas developed and its performance characteristics determinedby [employer]. It has not been cleared or approved by the Foodand Drug Administration.PATIENT WAS FASTINGPERFORMED BY: avocadostore[address] [id number] BY: [employer]6370 [facility] [id number] NMR Profile (15843) 125 mg/dL Abnormal 0-99 Compr ehensive Internal Medicine Work Phone: Comment on above: . Optimal < 100 Abov e optimal 100 - 129 Borderline 130 - 159 High 160 - 189 Very high > 189 .LDL-C is inaccurate if patient is non-fasting. Test(s) 090235-XQI-Y ; 455632-VWT-F; 610664-YKC-T; 309813-Zlxwdjmeoevqj; 745660-Prlfmmidppm, Total; 731378-OGM-P (Total);766155-Mhzgk LDL-P; 600114-REO Size; 270348-XX-WK Scorewas developed and its performance characteristics determinedby [employer]. It has not been cleared or approved by the Foodand Drug Administration.PATIENT WAS FASTINGPERFORMED BY: avocadostore[address] [id number] BY: [employer] Nogytd9670 [facility] [id number] NMR Profile (13313) 51 mg/dL Normal [facility] Internal Medicine Work Phone: Comment on above: Test(s) 006162-NAL-N ; 877001-FVZ-Q; 448853-YDN-Z; 375312-Sumyzzdctfaoo; 726045-Ubwkoqpzbct, Total; 076061-QCX-O (Total);509293-Fheus LDL-P; 988471-FTU Size; 620622-QR-RG Scorewas developed and its performance characteristics determinedby [employer]. It has not been cleared or approved by the Foodand Drug Administration.PATIENT WAS FASTINGPERFORMED BY: avocadostore[address] [id number] BY: [employer] Gvpjaz0807 [facility] [id number] TSH (65562)Ordered By: Geneva mccray Exhaust Machine Operator on 04-17-2020 TSH Qn 1.140 {uIU/mL} Normal 0.450-4.50 0 [facility] Internal Medicine Work Phone: Comment on above: Test(s) 811080-YSF-W ; 438004-FUY-P; 411212-WYE-I; 209419-Yfjgyfxujyxrq; 028593-Fqogwzjqnyn, Total; 151709-DED-A (Total);707033-Wtfga LDL-P; 986323-ALX Size; 497439-AU-VZ Scorewas developed and its performance characteristics determinedby [employer]. It has not been cleared or approved by the Foodand Drug Administration.PATIENT WAS FASTINGPERFORMED BY: avocadostore[address] [id number] BY: [employer] Gbckib[address] [id number] CBC W/Diff, AutomatedOrdered By: Truckman on 09-28-2018 Absolute Neut 3.2 {X10_3/uL} Normal 2.0-7.7 Compreh ensive Internal Medicine Work Phone: Comment on above: [facility] [address] [place], [place], [phone](088 Basophils/100 WBC (Bld) 0.5 % Normal 0-1 C omprehensive Internal Medicine Work Phone: Comment on above: [facility] [address] [place], [place], [phone] Eosinophils/100 WBC (Bld) 2.2 % Normal 0-5 [facility] Work Phone: Comment on above: [facility] [address] [place], [place], [phone] Erythrocyte distribution width Ratio (RBC) 13.1 % Normal 11.6-14.6 [facility] Work Phone: Comment on above: [facility] [address] [place], [place], [phone] Hematocrit Volume Fraction (Bld) 40.6 % Normal 37-47 [facility] Work Phone: Comment on above: [facility] [address] [place], [place], [phone] Hemoglobin mass conc (Bld) 13.1 g/dL Normal 12.0-15.0 [facility] Work Phone: Comment on above: [facility] [address] [place], [place], [phone] IM GRAN % 0.200 % Normal 0.0-0.9 [facility] Work Phone: Comment on above: IG% - Immature Granu locytes (promyelocytes, myelocytes andmetamyelocytes) > 1% indicates that a LEFT SHIFT is Present. [facility] [address] [place], [address] Lymphocytes #/vol (Bld) 1.95 {X10_3/ul} Normal 0.83-4. 51 [facility] Work Phone: Comment on above: [facility] [address] [place], [address] Lymphocytes/100 WBC (Bld) 32.3 % Normal 19-41 [facility] Work Phone: Comment on above: [facility] [address] [place], [address] MCH Entitic mass (RBC) 29.4 pg Normal 27.0-32.0 [facility] Work Phone: Comment on above: [facility] [address] [place], [address] MCHC mass conc (RBC) 32.3 {g/gl} Normal 32-36 [facility] prehensive Internal Medicine Work Phone: Comment on above: [facility] [address] [place], [address] MCV Entitic volume (RBC) 91.0 fL Normal 81-99 [facility] Work Phone: Comment on above: [facility] [address] [place], [address] Monocytes/100 WBC (Bld) 12.4 % Abnormal 0-10 C omprehensive Internal Medicine Work Phone: Comment on above: [facility] [address] [place], [address] Neutrophils/100 WBC (Bld) 52.4 % Normal 47-70 [facility] Work Phone: Comment on above: [facility] [address] [place], [address] Platelet mean volume Entitic volume (Bld) 9.4 fL Normal 6.2-12.0 Comprehensi ve Internal Medicine Work Phone: Comment on above: [facility] [address] [place], [address] Platelets #/vol (Bld) 224 10*3/uL Normal 150-450 Co mprehensive Internal Medicine Work Phone: Comment on above: [facility] [address] [place], [address] RBC #/vol (Bld) 4.46 {M/mm3} Normal 4.2-5.4 Compreh ensive Internal Medicine Work Phone: Comment on above: [facility] [address] [place], [address] RDW SD 43.1 fL Normal 35.1-43.9 [facility] Work Phone: Comment on above: [facility] [address] [place], [address] WBC #/vol (Bld) 6.0 10*3/uL Normal 4.4-11.0 Comprehe nsive Internal Medicine Work Phone: Comment on above: [facility] [address] [place], [address] Comprehensive Metabolic Prof ilOrdered By: Truckman on 09-28-2018 Comprehensive metabolic 2000 panel 15 U/L Normal 15-37 [facility] Work Phone: Comment on above: [facility] [address] [place], [address] Comprehensive metabolic 2000 panel 30.0 mmol/L Normal 21.0-32.0 [facility] Work Phone: Comment on above: [facility] [address] [place], [address] Comprehensive metabolic 2000 panel 141 mmol/L Normal 136-145 [facility] Work Phone: Comment on above: [facility] [address] [place], [place], [address] Comprehensive metabolic 2000 panel 0.80 mg/dL Normal 0.20-1.00 [facility] Work Phone: Comment on above: [facility] [address] [place], [place], [phone] Comprehensive metabolic 2000 panel 21 U/L Normal 13-56 [facility] Work Phone: Comment on above: [facility] [address] [place], [place], [phone] Comprehensive metabolic 2000 panel 6 1 Normal 5-15 [facility] Work Phone: Comment on above: [facility] [address] [place], [place], [address] Comprehensive metabolic 2000 panel 93 U/L Normal 45-117 [facility] Work Phone: Comment on above: [facility] [address] [place], [place], [phone] Comprehensive metabolic 2000 panel 105 mg/dL Normal 74-106 [facility] Work Phone: Comment on above: Fasting Glucose resu lt from 100 to 125 mg/dLsuggests IMPAIRED HOMEOSTASIS per A.D.A. criteria.Please note revised GLUCOSE reference range slndzzuso91/02/2018. [facility] [address] [place], [place], [address] Comprehensive metabolic 2000 panel 12 mg/dL Normal 7-18 [facility] Work Phone: Comment on above: [facility] [address] [place], [place], [phone] Comprehensive metabolic 2000 panel 3.6 mmol/L Normal 3.5-5.1 [facility] Work Phone: Comment on above: [facility] [address] [place], [address] Comprehensive metabolic 2000 panel 0.92 mg/dL Normal 0.55-1.02 [facility] Work Phone: Comment on above: The validity of the calculated GFR AND GFRAA in patients over70 years has not been determined. Clinical correlation isessential. [facility] [address] [place], [address] Comprehensive metabolic 2000 panel 65 mL/min Normal [facility] Work Phone: Comment on above: Non- GFR Calc [facility] [address] [place], [address] Comprehensive metabolic 2000 panel 78 mL/min Normal [facility] Work Phone: Comment on above: GFR Calc [facility] [address] [place], [address] Comprehensive metabolic 2000 panel 13.0 {RATIO} Normal 10-20 [facility] Work Phone: Comment on above: [facility] [address] [place], [address] Comprehensive metabolic 2000 panel 7.2 g/dL Normal 6.4-8.2 [facility] Work Phone: Comment on above: [facility] [address] [place], [address] Comprehensive metabolic 2000 panel 3.8 g/dL Normal 3.2-5.0 [facility] Work Phone: Comment on above: [facility] [address] [place], [address] Comprehensive metabolic 2000 panel 105 mmol/L Normal 98-107 [facility] Work Phone: Comment on above: [facility] [address] [place], [address] Comprehensive metabolic 2000 panel 9.0 mg/dL Normal 8.5-10.1 [facility] Work Phone: Comment on above: [facility] [address] [place], [place], [phone] Comprehensive metabolic 2000 panel 1.1 {RATIO} Normal 0.9-2.4 [facility] Work Phone: Comment on above: [facility] sp[facility] [address] [place], [place], [address] Comprehensive metabolic 2000 panel 3.4 g/dL Normal 2.2-4.2 [facility] Work Phone: Comment on above: [facility] spital [address] [place], [place], [phone] URINE CALCIUM BETINA TIMED 24 Hour (30069)Ordered By: Truckman on 07-11-2018 Calcium mass conc (24H U) 6.2 mg/dL Normal [facility] Work Phone: Comment on above: PATIENT NOT FASTINGP ERFORMED BY: OLIVIA [employer] Vtnxcy7490 [facility] [id number] Information: START 07/11/18@740AM Calcium mass/time (24H U) 77.5 {mg/24_hr} Abnormal 100.0-300. 0 [facility] Work Phone: Comment on above: PATIENT NOT FASTINGP ERFORMED BY: OLIVIA [employer] Eboqnq5919 [facility] [id number] Information: START 07/11/18@740AM C-REACTIVE PROTEIN (40794)Or dered By: Truckman on 07-06-2018 CRP mass conc 2.6 mg/L Normal 0.0-4.9 Comprehensi Internal Medicine Work Phone: Comment on above: PATIENT NOT FASTINGP ERFORMED BY: OLIVIA [employer] Vkblqz8345 [facility] [id number] BY: [facility] [id number] CALCIUM SERUM (51710)Ordered By: Truckman on 07-06-2018 Calcium mass conc 9.6 mg/dL Normal 8.7-10.3 Compreh [facility] Internal Medicine Work Phone: Comment on above: PATIENT NOT FASTINGP ERFORMED BY: CB [facility] Hazpxa9154 [address] [facility] [id number] BY: [address] [id number] CBC (AUTO) (96756)Ordered By : Truckman on 07-06-2018 Erythrocyte distribution width Ratio (RBC) 14.4 % Normal 12.3-15.4 [facility] Work Phone: Comment on above: PATIENT NOT FASTINGP ERFORMED BY: CB [facility] Ixdaco[address]60 [address] [facility] [id number] BY: Lab[address] [id number] Hematocrit Volume Fraction (Bld) 40.0 % Normal 34.0-46.6 [facility] Work Phone: Comment on above: PATIENT NOT FASTINGP ERFORMED BY: CB [facility] Rifrwf[address]133 [address] [facility] [id number] BY: [address] [id number] Hemoglobin mass conc (Bld) 13.4 g/dL Normal 11.1-15.9 [facility] Work Phone: Comment on above: PATIENT NOT FASTINGP ERFORMED BY: CB [facility] Vrjpqa4084 [address] [facility] [id number] BY: Lab[address] [id number] MCH Entitic mass (RBC) 29.2 pg Normal 26.6-33.0 [facility] Internal Medicine Work Phone: Comment on above: PATIENT NOT FASTINGP ERFORMED BY: CB [facility] Pajsim[address]704 [address] [facility] [id number] BY: [address] [id number] MCHC mass conc (RBC) 33.5 g/dL Normal 31.5-35.7 Comp rehensive Internal Medicine Work Phone: Comment on above: PATIENT NOT FASTINGP ERFORMED BY: CB [facility] Uqztce4754 [facility] [id number] BY: LabCo[address] [id number] MCV Entitic volume (RBC) 87 fL Normal 79-97 [facility] Work Phone: Comment on above: PATIENT NOT FASTINGP ERFORMED BY: CB [facility] Ipllol7438 [facility] [id number] BY: Lab[address] [id number] Platelets #/vol (Bld) 288 {x10E3/uL} Normal 150-379 [facility] Work Phone: Comment on above: PATIENT NOT FASTINGP ERFORMED BY: CB [facility] Qstdrz2098 [facility] [id number] BY: Lab[address] [id number] Platelets (Bld) [#/Vol] 288 10*3/uL Normal 150-379 [facility]; [facility] Work Phone: Comment on above: PATIENT NOT FASTINGP ERFORMED BY: CB [facility] Dnvqpb7542 [facility] [id number] BY: [address]Co[address] [id number] RBC #/vol (Bld) 4.59 {x10E6/uL} Normal 3.77-5.28 [facility] Work Phone: Comment on above: PATIENT NOT FASTINGP ERFORMED BY: CB [facility] Fqyhlp5257 [address] [facility] [id number] BY: [address] [id number] RBC (Bld) [#/Vol] 4.59 10*6/uL Normal 3.77-5.28 Compr ehensive Internal Medicine; [facility] Work Phone: Comment on above: PATIENT NOT FASTINGP ERFORMED BY: CB [facility] Ywaabb5222 [address] RoadDublin [place] [id number] BY: [address] [id number] WBC #/vol (Bld) 8.4 {x10E3/uL} Normal 3.4-10.8 Compr ehensive Internal Medicine Work Phone: Comment on above: PATIENT NOT FASTINGP ERFORMED BY: CB [facility] Hzffdh7366 [address] [facility] [id number] BY: [address] [id number] WBC (Bld) [#/Vol] 8.4 10*3/uL Normal 3.4-10.8 Compre [facility] Internal Medicine; [facility] Work Phone: Comment on above: PATIENT NOT FASTINGP ERFORMED BY: CB [facility] Jtlfjs9872 [address] [facility] [id number] BY: [address] [id number] HEPATIC FUNCTION PANEL (8007 6)Ordered By: Truckman on 07-06-2018 Albumin mass conc 4.6 g/dL Normal 3.6-4.8 Compreh [facility] Internal [facility] Work Phone: Comment on above: PATIENT NOT FASTINGP ERFORMED BY: CB [facility] Ciscxc4180 [address] [facility] [id number] BY: [address] [id number] ALP [Catalytic activity/Vol] 68 U/L Normal 39-117 [facility]; [facility] Work Phone: Comment on above: PATIENT NOT FASTINGP ERFORMED BY: CB [facility] Mmsvnk0843 [address] [facility] [place] [id number] BY: [address] [id number] ALP enzyme act/vol 68 [iU]/L Normal 39-117 [facility] Internal Medicine Work Phone: Comment on above: PATIENT NOT FASTINGP ERFORMED BY: [facility] Omauwu1581 [address] RoadDublin [place] [id number] BY: [address] [id number] ALT [Catalytic activity/Vol] 18 U/L Normal 0-32 [facility]; [facility] Internal Medicine Work Phone: Comment on above: PATIENT NOT FASTINGP ERFORMED BY: CB [facility] Rwfifz1583 [address] RoadDublin [place] [id number] BY: [address] [id number] ALT enzyme act/vol 18 [iU]/L Normal 0-32 [facility] Internal Medicine Work Phone: Comment on above: PATIENT NOT FASTINGP ERFORMED BY: [facility] Ixfmns5939 [address] RoadDuin [place] [id number] BY: [address] [id number] AST [Catalytic activity/Vol] 17 U/L Normal 0-40 [facility] Internal Medicine; [facility] Internal Medicine Work Phone: Comment on above: PATIENT NOT FASTINGP ERFORMED BY: OLIVIA [facility] Tovvlk2954 [address] RoadDublin [place] [id number] BY: [facility] [address] [id number] AST enzyme act/vol 17 [iU]/L Normal 0-40 [facility] Internal Medicine Work Phone: Comment on above: PATIENT NOT FASTINGP ERFORMED BY: CB [facility] Xvtufp9123 [address] [facility] [place] [id number] BY: [facility] [id number] Bilirubin mass conc 0.9 mg/dL Normal 0.0-1.2 [facility] Internal Medicine Work Phone: Comment on above: PATIENT NOT FASTINGP ERFORMED BY: CB [facility] Qbvgpu3989 [address] RoadDublin [place] [id number] BY: [address] [id number] Bilirubin.direct mass conc 0.23 mg/dL Normal 0.00-0.40 [facility] Work Phone: Comment on above: PATIENT NOT FASTINGP ERFORMED BY: CB [facility] Msmdum8617 [address] RoadDublin [place] [id number] BY: [address] [id number] PARATHORMONE (32146)Ordered By: Truckman on 07-06-2018 Parathyrin.intact mass conc 26 pg/mL Normal 15-65 [facility] Work Phone: Comment on above: PATIENT NOT FASTINGP ERFORMED BY: CB [facility] Auxoko8191 [address] RoadDublin [place] [id number] BY: [address] [id number] PHOSPHORUS (72121)Ordered By : Truckman on 07-06-2018 Phosphate mass conc 3.1 mg/dL Normal 2.5-4.5 [facility] Internal Medicine Work Phone: Comment on above: PATIENT NOT FASTINGP ERFORMED BY: CB [facility] Asciqv9492 [address] RoadDublin [place] [id number] BY: [address] [id number] SED RATE ERYTHROCYTE (43204) Ordered By: Truckman on 07-06-2018 ESR Velocity (Bld) 7 mm/h Normal 0-40 [facility] Internal Medicine Work Phone: Comment on above: PATIENT NOT FASTINGP ERFORMED BY: CB [facility] Momksm5019 [address] RoadDublin [place] [id number] BY: [address] [id number] SPEP (19218)Ordered By: Syst em Exhaust Machine Operator on 07-06-2018 Albumin mass conc 4.1 g/dL Normal 2.9-4.4 Compreh ensive Internal Medicine Work Phone: Comment on above: PATIENT NOT FASTINGP ERFORMED BY: CB [facility] Pbftjd0088 [facility] [id number] BY: [address] [id number] Albumin/Globulin mass ratio 1.4 {ratio} Normal 0.7-1.7 [facility] Work Phone: Comment on above: PATIENT NOT FASTINGP ERFORMED BY: CB [facility] Rghxnp7797 [facility] [id number] BY: [facility] [id number] Alpha 1 globulin Elph mass conc 0.2 g/dL Normal 0.0-0.4 [facility] Work Phone: Comment on above: PATIENT NOT FASTINGP ERFORMED BY: CB [facility] Oqjoig0371 [facility] [id number] BY: [facility] [id number] Alpha 2 globulin Elph mass conc 0.8 g/dL Normal 0.4-1.0 [facility] Work Phone: Comment on above: PATIENT NOT FASTINGP ERFORMED BY: CB [facility] Bxttbm1274 [facility] [id number] BY: [facility] [id number] Beta globulin Elph mass conc 1.0 g/dL Normal 0.7-1.3 [facility] Work Phone: Comment on above: PATIENT NOT FASTINGP ERFORMED BY: CB [facility] Hkeccl6844 [facility] [id number] BY: [address] [id number] Gamma globulin Elph mass conc 1.1 g/dL Normal 0.4-1.8 [facility] Work Phone: Comment on above: PATIENT NOT FASTINGP ERFORMED BY: CB [facility] Yrumld8263 [address] RoadDublin [place] [id number] BY: [facility] [id number] Globulin mass conc (S) 3.0 g/dL Normal 2.2-3.9 Co mprehensive Internal Medicine Work Phone: Comment on above: PATIENT NOT FASTINGP ERFORMED BY: CB [facility] Lewjvl2229 [address] RoadDublin [place] [id number] BY: [address] [id number] Laboratory report . Normal Compreh ensive Internal Medicine Work Phone: Comment on above: PATIENT NOT FASTINGP ERFORMED BY: CB [facility] Cqopnj7211 [address] RoadDublin [place] [id number] BY: Lab[address] [id number] Protein mass conc 7.1 g/dL Normal 6.0-8.5 Compreh ensive Internal Medicine Work Phone: Comment on above: PATIENT NOT FASTINGP ERFORMED BY: CB [facility] Qmznxv6210 [address] RoadDublin [place] [id number] BY: [address] [id number] Protein.monoclonal Elph mass conc Not Observed Normal [facility] Work Phone: Comment on above: PATIENT NOT FASTINGP ERFORMED BY: CB [facility] Kuxjgj6765 [address] RoadDublin [place] [id number] BY: Lab[address] [id number] TSH (32474)Ordered By: Geneva Gorman on 07-06-2018 Thyrotropin Qn 0.997 {uIU/mL} Normal 0.450-4.50 0 [facility] Work Phone: Comment on above: PATIENT NOT FASTINGP ERFORMED BY: CB [facility] Bupwvz4359 [address] RoadDublin [place] [id number] BY: Lab[address] [id number] UPEP (65544)Ordered By: Syst em Exhaust Machine Operator on 07-06-2018 Albumin/Protein.total Elph mass fraction (U) 34.7 % Normal Comprehen sive Internal Medicine Work Phone: Comment on above: PATIENT NOT FASTINGP ERFORMED BY: CB [facility] Swtypv9638 [address] [facility] [id number] BY: [address] [id number] Alpha 1 globulin/Protein.total Elph mass fraction (U) 1.9 % Normal Comprehen sive Internal Medicine Work Phone: Comment on above: PATIENT NOT FASTINGP ERFORMED BY: CB [facility] Tqlvfk3137 [address] [facility] [id number] BY: [address] [id number] Alpha 2 globulin/Protein.total Elph mass fraction (U) 9.8 % Normal Comprehen sive Internal Medicine Work Phone: Comment on above: PATIENT NOT FASTINGP ERFORMED BY: CB [facility] Zbaouo5348 [address] [facility] [id number] BY: [address] [id number] Beta globulin/Protein.total Elph mass fraction (U) 31.1 % Normal Comprehen sive Internal Medicine Work Phone: Comment on above: PATIENT NOT FASTINGP ERFORMED BY: CB [facility] Kllaks2305 [address] [facility] [id number] BY: [address] [id number] Gamma globulin/Protein.total Elph mass fraction (U) 22.5 % Normal Comprehen sive Internal Medicine Work Phone: Comment on above: PATIENT NOT FASTINGP ERFORMED BY: CB [facility] Yuguup3227 [address] [facility] [id number] BY: Open[employer] [id number] Laboratory comment Armando (Report) SPRCS Normal [facility] Work Phone: Comment on above: Protein electrophore sis scan will follow via computer, mail, orcourier delivery. PATIENT NOT FASTINGP ERFORMED BY: CB [facility] Ksbleo8470 [address] RoadDublin [place] [id number] BY: [address] [id number] Protein mass conc (U) 9.8 mg/dL Normal [facility] prehensive Internal Medicine Work Phone: Comment on above: PATIENT NOT FASTINGP ERFORMED BY: CB [facility] Piuzzo0819 [address] RoadDublin [place] [id number] BY: [employer] [id number] Protein.monoclonal/Prot ein.total Elph mass fraction (U) Not Observed Normal [facility] Work Phone: Comment on above: PATIENT NOT FASTINGP ERFORMED BY: [facility] Bjjgem1795 [address] [facility]blin [place] [id number] BY: Open[employer] [id number] VITAMIN D, 1, 25-DIHYDROXY ( 55796)Ordered By: Truckman on 07-06-2018 Calcitriol mass conc 46.8 pg/mL Normal 19.9-79.3 [facility] Work Phone: Comment on above: PATIENT NOT FASTINGP ERFORMED BY: CB [facility] Bziamr2284 [address] RoadDublin [place] [id number] BY: [employer] [id number] Vitamin D Hydroxy (46421)Ord ered By: Truckman on 07-06-2018 25-Hydroxyvitamin D2+25-Hydroxyvitamin D3 mass conc 68.2 ng/mL Normal 30.0-100.0 [facility] Work Phone: Comment on above: Vitamin D deficiency has been defined by the [place] ofMedicine and an Endocrine Society practice guideline as alevel of serum 25-OH vitamin D less than 20 ng/mL (1,2).The Endocrine Society went on to further define vitamin Dinsufficiency as a level between 21 and 29 ng/mL (2).1. IOM ([place] of Medicine). 2010. Dietary reference intakes for calcium and D. [place]: The National Academies Press.2. Andrey MF, Dago RAMIREZ, Cuauhtemoc MOSS, et al. Evaluation, treatment, and prevention of vitamin D deficiency: an Endocrine Society clinical practice guideline. JCEM. 2010; 96(7):1911-30. PATIENT NOT FASTINGP ERFORMED BY: CB [facility] Tiiwlq3869 [facility] [id number] BY: BN [facility] Hgbzxbvafc2130 [facility] [id number] CBC W/Diff, AutomatedOrdered By: Truckman on 07-02-2018 Absolute Lymph 1.60 {X10_3/ul} Normal 0.83-4.51 Compr ehensive Internal Medicine Work Phone: Absolute Neut 3.2 {X10_3/uL} Normal 2.0-7.7 Compreh ensive Internal Medicine Work Phone: Comment on above: [facility] [address] [place], [place], [phone] Basophils/100 WBC (Bld) 0.5 % Normal 0-1 C omprehensive Internal Medicine Work Phone: Comment on above: [facility] [address] [place], [address] Basophils/100 WBC Auto (Bld) 0.5 % Normal 0-1 [facility] Work Phone: Eosinophils/100 WBC (Bld) 2.8 % Normal 0-5 [facility] Work Phone: Comment on above: [facility] [address] [place], [address] Eosinophils/100 WBC Auto (Bld) 2.8 % Normal 0-5 [facility] Work Phone: Erythrocyte distribution width Auto Ratio (RBC) 13.8 % Normal 11.6-14.6 [facility] Work Phone: Erythrocyte distribution width Ratio (RBC) 13.8 % Normal 11.6-14.6 [facility] Work Phone: Comment on above: [facility] [address] [place], [place], [phone] Hematocrit Auto Volume Fraction (Bld) 40.6 % Normal 37-47 [facility] Work Phone: Hematocrit Volume Fraction (Bld) 40.6 % Normal 37-47 [facility] Work Phone: Comment on above: [facility] [address] [place], [place], [phone] Hemoglobin mass conc (Bld) 13.3 g/dL Normal 12.0-15.0 [facility] Work Phone: Comment on above: [facility] [address] [place], [address] IM GRAN % 0.400 % Normal 0.0-0.9 [facility] Work Phone: Comment on above: IG% - Immature Granu locytes (promyelocytes, myelocytes andmetamyelocytes) > 1% indicates that a LEFT SHIFT is Present. [facility] [address] [place], [place], [phone] Lymphocytes #/vol (Bld) 1.60 {X10_3/ul} Normal 0.83-4. 51 [facility] Work Phone: Comment on above: [facility] [address] [place], [address] Lymphocytes/100 WBC (Bld) 28.2 % Normal 19-41 [facility] Work Phone: Comment on above: [facility] [address] [place], [address] Lymphocytes/100 WBC Auto (Bld) 28.2 % Normal 19-41 [facility] Work Phone: MCH Auto Entitic mass (RBC) 29.7 pg Normal 27.0-32.0 [facility] Work Phone: MCH Entitic mass (RBC) 29.7 pg Normal 27.0-32.0 [facility] Work Phone: Comment on above: [facility] [address] [place], [address] MCHC Auto mass conc (RBC) 32.8 {g/gl} Normal 32-36 [facility] Work Phone: MCHC mass conc (RBC) 32.8 {g/gl} Normal 32-36 [facility] prehensive Internal Medicine Work Phone: Comment on above: [facility] [address] [place], [address] MCV Auto Entitic volume (RBC) 90.6 fL Normal 81-99 [facility] Work Phone: MCV Entitic volume (RBC) 90.6 fL Normal 81-99 [facility] Work Phone: Comment on above: [facility] [address] [place], [address] Monocytes/100 WBC Auto (Bld) 12.2 % Abnormal 0-10 [facility] Work Phone: Comment on above: [facility] [address] [place], [address] Neutrophils/100 WBC (Bld) 55.9 % Normal 47-70 [facility] Work Phone: Comment on above: [facility] [address] [place], [address] Neutrophils/100 WBC Auto (Bld) 55.9 % Normal 47-70 [facility] Work Phone: Platelet mean volume Auto Entitic volume (Bld) 9.2 fL Normal 6.2-12.0 [facility] Work Phone: Platelet mean volume Entitic volume (Bld) 9.2 fL Normal 6.2-12.0 Comprehensi Internal Medicine Work Phone: Comment on above: [facility] [address] [place], [address] Platelets #/vol (Bld) 244 10*3/uL Normal 150-450 [facility] Work Phone: Comment on above: [facility] [address] [place], [address] Platelets Auto #/vol (Bld) 244 10*3/uL Normal 150-450 [facility] Work Phone: RBC #/vol (Bld) 4.48 {M/mm3} Normal 4.2-5.4 Compreh ensive Internal Medicine Work Phone: Comment on above: [facility] [address] [place], [address] RBC Auto #/vol (Bld) 4.48 {M/mm3} Normal 4.2-5.4 Co [facility] Internal Medicine Work Phone: RDW SD 44.5 fL Abnormal 35.1-43.9 [facility] Internal Medicine Work Phone: Comment on above: [facility] [address] [place], [address] WBC #/vol (Bld) 5.7 10*3/uL Normal 4.4-11.0 Comprehe nsive Internal Medicine Work Phone: Comment on above: [facility] [address] [place], [address] WBC Auto #/vol (Bld) 5.7 10*3/uL Normal 4.4-11.0 [facility] prehensive Internal Medicine Work Phone: Comprehensive Metabolic Prof ilOrdered By: Truckman on 07-02-2018 Comprehensive metabolic 2000 panel 9.2 mg/dL Normal 8.5-10.1 [facility] Work Phone: Comment on above: [facility] [address] [place], [place], [address] Comprehensive metabolic 2000 panel 61 mL/min Normal [facility] Work Phone: Comment on above: Non- GFR Calc [facility] [address] [place], [place], [address] Comprehensive metabolic 2000 panel 0.98 mg/dL Normal 0.55-1.02 [facility] Work Phone: Comment on above: The validity of the calculated GFR AND GFRAA in patients over70 years has not been determined. Clinical correlation isessential. [facility] [address] [place], [place], [address] Comprehensive metabolic 2000 panel 1.0 {RATIO} Normal 0.9-2.4 [facility] Work Phone: Comment on above: [facility] [address] [place], [place], [address] Comprehensive metabolic 2000 panel 3.8 g/dL Normal 2.2-4.2 [facility] Work Phone: Comment on above: [facility] [address] [place], [place], [address] Comprehensive metabolic 2000 panel 91 mg/dL Normal 74-106 [facility] Work Phone: Comment on above: Please note revised GLUCOSE reference range skzurmtkq26/02/2018. [facility] [address] [place], [place], [address] Comprehensive metabolic 2000 panel 71 U/L Normal 45-117 [facility] Work Phone: Comment on above: [facility] [address] [place], [place], [address] Comprehensive metabolic 2000 panel 10 1 Normal 5-15 [facility] Work Phone: Comment on above: [facility] [address] [place], [place], [address] Comprehensive metabolic 2000 panel 7.6 g/dL Normal 6.4-8.2 [facility] Work Phone: Comment on above: [facility] [address] [place], [place], [phone] Comprehensive metabolic 2000 panel 28.0 mmol/L Normal 21.0-32.0 [facility] Work Phone: Comment on above: [facility] [address] [place], [place], [address] Comprehensive metabolic 2000 panel 40 U/L Normal 13-56 [facility] Work Phone: Comment on above: [facility] [address] [place], [place], [address] Comprehensive metabolic 2000 panel 15.4 {RATIO} Normal 10-20 [facility] Work Phone: Comment on above: [facility] [address] [place], [place], [address] Comprehensive metabolic 2000 panel 0.80 mg/dL Normal 0.20-1.00 [facility] Work Phone: Comment on above: [facility] [address] [place], [place], [address] Comprehensive metabolic 2000 panel 105 mmol/L Normal 98-107 [facility] Work Phone: Comment on above: [facility] [address] [place], [place], [address] Comprehensive metabolic 2000 panel 73 mL/min Normal [facility] Work Phone: Comment on above: GFR Calc [facility] [address] [place], [place], [address] Comprehensive metabolic 2000 panel 143 mmol/L Normal 136-145 [facility] Work Phone: Comment on above: [facility] [address] [place], [address] Comprehensive metabolic 2000 panel 17 U/L Normal 15-37 [facility] Medicine Work Phone: Comment on above: [facility] spital [address] [place], [address] Comprehensive metabolic 2000 panel 3.6 mmol/L Normal 3.5-5.1 [facility] Work Phone: Comment on above: [facility] [address] [place], [phone] Comprehensive metabolic 2000 panel 15 mg/dL Normal 7-18 [facility] Work Phone: Comment on above: [facility] [address] [place], [address] CALCIFIDIOL (21085) VIT D 25 Ordered By: Truckman on 04-27-2018 25-Hydroxyvitamin D2+25-Hydroxyvitamin D3 mass conc 107.0 ng/mL Abnormal 30.0-100.0 [facility] Work Phone: Comment on above: Vitamin D deficiency has been defined by the [place] ofMedicine and an Endocrine Society practice guideline as alevel of serum 25-OH vitamin D less than 20 ng/mL (1,2).The Endocrine Society went on to further define vitamin Dinsufficiency as a level between 21 and 29 ng/mL (2).1. IOM ([place] of Medicine). 2010. Dietary reference intakes for calcium and D. [place]: The National Academies Press.2. Andrey MF, Dago [place], Cuauhtemoc MOSS, et al. Evaluation, treatment, and prevention of vitamin D deficiency: an Endocrine Society clinical practice guideline. JCEM. 2010; 96(7):1911-30. PATIENT WAS FASTINGP ERFORMED BY: BN [facility] Tohntjtmfk3301 [facility] [id number] BY: CB [facility] Kcfuls7023 [facility] [id number] LIPOPROTEIN, BLD, BY NMR (69 454)Ordered By: Truckman on 04-27-2018 Cholesterol in HDL mass conc 55 mg/dL Normal [facility] Work Phone: Comment on above: PATIENT WAS FASTINGP ERFORMED BY: [employer] [id number] BY: St[employer] CommunicationsNew Sunrise Regional Treatment CenterWypedy8820 [facility] [id number] Cholesterol in LDL mass conc 114 mg/dL Abnormal 0-99 [facility] Work Phone: Comment on above: . Optimal < 100 Abov e optimal 100 - 129 Borderline 130 - 159 High 160 - 189 Very high > 189 .LDL-C is inaccurate if patient is non-fasting. PATIENT WAS FASTINGP ERFORMED BY: [employer] [address] [id number] BY: [employer] Hfiwjy6939 [facility] [id number] Cholesterol mass conc 186 mg/dL Normal 100-199 [facility] [facility] pre[facility] Work Phone: Comment on above: PATIENT WAS FASTINGP ERFORMED BY: [employer] [address] [id number] BY: [employer] Lqvbkt3390 [facility] [id number] Lipoprotein.alpha molar conc 36.4 umol/L Normal [facility] Internal Medicine Work Phone: Comment on above: PATIENT WAS FASTINGP ERFORMED BY: [employer] [id number] BY: [employer] Jmzwal4369 [facility] [id number] Lipoprotein.beta.subpar ticle Entitic length 21.5 nm Normal [...] were developed and their performance characteristicsdetermined by [employer]. These assays have not been cleared by [place] Food and Drug Administration. The clinical utility of theselaboratory values have not been fully established. PATIENT WAS FASTINGP ERFORMED BY: [employer] [facility] [id number] BY: [employer] [facility] [id number] Lipoprotein.beta.subpar ticle molar conc 1422 nmol/L Abnormal [facility] Work Phone: Comment on above: Low < 1000 Moderate 1000 - 1299 Borderline-High 1300 - 1599 High 1600 - 2000 Very High > 2000 PATIENT WAS FASTINGP ERFORMED BY: [employer] [facility] [id number] BY: [employer]6370 [facility] [id number] Lipoprotein.beta.subpar ticle.small molar conc 217 nmol/L Normal [facility]hen [facility] Internal [facility] Work Phone: Comment on above: PATIENT WAS FASTINGP ERFORMED BY: [employer]ore[employer]1447 [facility] [id number] BY: [facility]6370 [facility] [id number] Triglyceride mass conc 84 mg/dL Normal 0-149 [facility] Work Phone: Comment on above: PATIENT WAS FASTINGP ERFORMED BY: [employer] [id number] BY: [facility]6370 [facility] [id number] TSH ([id number])Ordered By: Syste m Exhaust Machine Operator on 04-27-2018 Thyrotropin Qn 2.560 {uIU/mL} Normal 0.450-4.50 0 [facility] Work Phone: Comment on above: PATIENT WAS FASTINGP ERFORMED BY: [employer] [id number] BY: [facility] HospitalFormattaHealthSouth - [facility] Toms RiverMbtvvk9149 [facility] [id number] CBC W/Diff, AutomatedOrdered By: Truckman on 04-18-2018 Absolute Lymph 1.65 {X10_3/ul} Normal 0.83-4.51 Compr ehensive Internal Medicine Work Phone: Absolute Neut 4.0 {X10_3/uL} Normal 2.0-7.7 Compreh ensive Internal Medicine Work Phone: Comment on above: [facility] [address] [place], [place], [phone] Basophils/100 WBC (Bld) 0.5 % Normal 0-1 C omprehensive Internal Medicine Work Phone: Comment on above: [facility] [address] [place], [place], [phone] Basophils/100 WBC Auto (Bld) 0.5 % Normal 0-1 [facility] Work Phone: Eosinophils/100 WBC (Bld) 1.9 % Normal 0-5 [facility] Work Phone: Comment on above: [facility] [address] [place], [address] Eosinophils/100 WBC Auto (Bld) 1.9 % Normal 0-5 [facility] Work Phone: Erythrocyte distribution width Auto Ratio (RBC) 13.4 % Normal 11.6-14.6 [facility] Work Phone: Erythrocyte distribution width Ratio (RBC) 13.4 % Normal 11.6-14.6 [facility] Work Phone: Comment on above: [facility] [address] [place], [address] Hematocrit Auto Volume Fraction (Bld) 42.0 % Normal 37-47 [facility] Work Phone: Hematocrit Volume Fraction (Bld) 42.0 % Normal 37-47 [facility] Work Phone: Comment on above: [facility] [address] [place], [address] Hemoglobin mass conc (Bld) 13.4 g/dL Normal 12.0-15.0 [facility] Work Phone: Comment on above: [place] [address] [place], [address] IM GRAN % 0.200 % Normal 0.0-0.9 [facility] Work Phone: Comment on above: IG% - Immature Granu locytes (promyelocytes, myelocytes andmetamyelocytes) > 1% indicates that a LEFT SHIFT is Present. [facility] [address] [place], [address] Lymphocytes #/vol (Bld) 1.65 {X10_3/ul} Normal 0.83-4. 51 [facility] Work Phone: Comment on above: [facility] [address] [place], [address] Lymphocytes/100 WBC (Bld) 25.5 % Normal 19-41 [facility] Work Phone: Comment on above: [facility] [address] [place], [address] Lymphocytes/100 WBC Auto (Bld) 25.5 % Normal 19-41 [facility] Work Phone: MCH Auto Entitic mass (RBC) 29.1 pg Normal 27.0-32.0 [facility] Work Phone: MCH Entitic mass (RBC) 29.1 pg Normal 27.0-32.0 [facility] Work Phone: Comment on above: [facility] [address] [place], [address] MCHC Auto mass conc (RBC) 31.9 {g/gl} Abnormal 32-36 [facility] Work Phone: MCHC mass conc (RBC) 31.9 {g/gl} Abnormal 32-36 [facility] Internal Medicine Work Phone: Comment on above: [facility] [address] [place], [address] MCV Auto Entitic volume (RBC) 91.3 fL Normal 81-99 [facility] Work Phone: MCV Entitic volume (RBC) 91.3 fL Normal 81-99 [facility] Work Phone: Comment on above: [facility] [address] [place], [address] Monocytes/100 WBC Auto (Bld) 11.1 % Abnormal 0-10 [facility] Work Phone: Comment on above: [facility] [address] [place], [address] Neutrophils/100 WBC (Bld) 60.8 % Normal 47-70 [facility] Work Phone: Comment on above: [facility] [address] [place], [address] Neutrophils/100 WBC Auto (Bld) 60.8 % Normal 47-70 [facility] Work Phone: Platelet mean volume Auto Entitic volume (Bld) 9.5 fL Normal 6.2-12.0 [facility] Work Phone: Platelet mean volume Entitic volume (Bld) 9.5 fL Normal 6.2-12.0 Comprehensi Internal Medicine Work Phone: Comment on above: [facility] [address] [place], [address] Platelets #/vol (Bld) 233 10*3/uL Normal 150-450 Co [facility] Internal Medicine Work Phone: Comment on above: [facility] [address] [place], [address] Platelets Auto #/vol (Bld) 233 10*3/uL Normal 150-450 [facility] Work Phone: RBC #/vol (Bld) 4.60 {M/mm3} Normal 4.2-5.4 Compreh ensive Internal Medicine Work Phone: Comment on above: [facility] [address] [place], [address] RBC Auto #/vol (Bld) 4.60 {M/mm3} Normal 4.2-5.4 Co [facility] Internal Medicine Work Phone: RDW SD 44.1 fL Abnormal 35.1-43.9 [facility] Internal Medicine Work Phone: Comment on above: [facility] [address] [place], [address] WBC #/vol (Bld) 6.5 10*3/uL Normal 4.4-11.0 Com[facility]he [facility] Internal Medicine Work Phone: Comment on above: [facility] [address] [place], [address] WBC Auto #/vol (Bld) 6.5 10*3/uL Normal 4.4-11.0 [facility] prehensive Internal Medicine Work Phone: Comprehensive Metabolic Prof ilOrdered By: Truckman on 04-18-2018 Comprehensive metabolic 2000 panel 0.90 mg/dL Normal 0.20-1.00 [facility] Work Phone: Comment on above: [facility] [address] [place], [place], [phone] Comprehensive metabolic 2000 panel 1.0 {RATIO} Normal 0.9-2.4 [facility] Work Phone: Comment on above: [facility] [address] [place], [place], [phone] Comprehensive metabolic 2000 panel 95 mg/dL Normal 74-106 [facility] Work Phone: Comment on above: Please note revised GLUCOSE reference range /02/2018. [facility] [address] [place], [place], [phone] Comprehensive metabolic 2000 panel 9.0 mg/dL Normal 8.5-10.1 [facility] Work Phone: Comment on above: [facility] [address] [place], [place], [phone] Comprehensive metabolic 2000 panel 3.8 g/dL Normal 2.2-4.2 [facility] Work Phone: Comment on above: [facility] [address] [place], [place], [phone] Comprehensive metabolic 2000 panel 11 mg/dL Normal 7-18 [facility] Work Phone: Comment on above: [facility] [address] [place], [place], [phone] Comprehensive metabolic 2000 panel 5 1 Normal 5-15 [facility] Work Phone: Comment on above: [facility] [address] [place], [place], [phone] Comprehensive metabolic 2000 panel 31.0 mmol/L Normal 21.0-32.0 [facility] Work Phone: Comment on above: [facility] [address] [place], [place], [address] Comprehensive metabolic 2000 panel 3.7 g/dL Normal 3.2-5.0 [facility] Work Phone: Comment on above: [facility] spital [address] [place], [address] Comprehensive metabolic 2000 panel 106 mmol/L Normal 98-107 [facility] Work Phone: Comment on above: [facility] spital [address] [place], [address] Comprehensive metabolic 2000 panel 7.5 g/dL Normal 6.4-8.2 [facility] Work Phone: Comment on above: [facility] [address] [place], [address] Comprehensive metabolic 2000 panel 11.9 {RATIO} Normal 10-20 [facility] Work Phone: Comment on above: [facility] [address] [place], [place], [address] Comprehensive metabolic 2000 panel 78 mL/min Normal [facility] Work Phone: Comment on above: GFR Calc [facility] [address] [place], [address] Comprehensive metabolic 2000 panel 142 mmol/L Normal 136-145 [facility] Work Phone: Comment on above: [facility] spital [address] [place], [address] Comprehensive metabolic 2000 panel 64 mL/min Normal [facility] Work Phone: Comment on above: Non- GFR Calc [facility] spital [address] [place], [address] Comprehensive metabolic 2000 panel 0.93 mg/dL Normal 0.55-1.02 [facility] Work Phone: Comment on above: The validity of the calculated GFR AND GFRAA in patients over70 years has not been determined. Clinical correlation isessential. [facility] [address] [place], [place], [address] Comprehensive metabolic 2000 panel 16 U/L Normal 15-37 [facility] Work Phone: Comment on above: [facility] [address] [place], [place], [phone] Comprehensive metabolic 2000 panel 3.7 mmol/L Normal 3.5-5.1 [facility] Work Phone: Comment on above: [facility] [address] [place], [place], [phone] Comprehensive metabolic 2000 panel 71 U/L Normal 45-117 [facility] Work Phone: Comment on above: [facility] [address] [place], [place], [address] Comprehensive metabolic 2000 panel 24 U/L Normal 13-56 [facility] Work Phone: Comment on above: [facility] [address] [place], [place], [phone] CBC W/Diff, AutomatedOrdered By: Truckman on 02-01-2018 Absolute Lymph 1.65 {X10_3/ul} Normal 0.83-4.51 Compr ehensive Internal Medicine Work Phone: Absolute Neut 3.3 {X10_3/uL} Normal 2.0-7.7 Compreh ensive Internal Medicine Work Phone: Comment on above: [facility] [address] [place], [place], [phone] Basophils/100 WBC (Bld) 0.3 % Normal 0-1 C omprehensive Internal Medicine Work Phone: Comment on above: [facility] [address] [place], [place], [phone] Basophils/100 WBC Auto (Bld) 0.3 % Normal 0-1 [facility] Work Phone: Eosinophils/100 WBC (Bld) 2.4 % Normal 0-5 [facility] Work Phone: Comment on above: [facility] [address] [place], [address] Eosinophils/100 WBC Auto (Bld) 2.4 % Normal 0-5 [facility] Work Phone: Erythrocyte distribution width Auto Ratio (RBC) 13.1 % Normal 11.6-14.6 [facility] Work Phone: Erythrocyte distribution width Ratio (RBC) 13.1 % Normal 11.6-14.6 [facility] Work Phone: Comment on above: [place] [address] [place], [address] Hematocrit Auto Volume Fraction (Bld) 40.4 % Normal 37-47 [facility] Work Phone: Hematocrit Volume Fraction (Bld) 40.4 % Normal 37-47 [facility] Work Phone: Comment on above: [place] [address] [place], [address] Hemoglobin mass conc (Bld) 13.5 g/dL Normal 12.0-15.0 [facility] Work Phone: Comment on above: [place] [address] [place], [address] IM GRAN % 0.200 % Normal 0.0-0.9 [facility] Work Phone: Comment on above: IG% - Immature Granu locytes (promyelocytes, myelocytes andmetamyelocytes) > 1% indicates that a LEFT SHIFT is Present. [place] [address] [place], [phone] Lymphocytes #/vol (Bld) 1.65 {X10_3/ul} Normal 0.83-4. 51 [facility] Work Phone: Comment on above: [facility] [address] [place], [address] Lymphocytes/100 WBC (Bld) 28.5 % Normal 19-41 [facility] Work Phone: Comment on above: [facility] [address] [place], [address] Lymphocytes/100 WBC Auto (Bld) 28.5 % Normal 19-41 [facility] Work Phone: MCH Auto Entitic mass (RBC) 30.5 pg Normal 27.0-32.0 [facility] Work Phone: MCH Entitic mass (RBC) 30.5 pg Normal 27.0-32.0 [facility] Internal Medicine Work Phone: Comment on above: [facility] [address] [place], [address] MCHC Auto mass conc (RBC) 33.4 {g/gl} Normal 32-36 [facility] Work Phone: MCHC mass conc (RBC) 33.4 {g/gl} Normal 32-36 [facility] Internal Medicine Work Phone: Comment on above: [facility] [address] [place], [address] MCV Auto Entitic volume (RBC) 91.4 fL Normal 81-99 [facility] Work Phone: MCV Entitic volume (RBC) 91.4 fL Normal 81-99 [facility] Work Phone: Comment on above: [facility] [address] [place], [address] Monocytes/100 WBC Auto (Bld) 11.9 % Abnormal 0-10 [facility] Work Phone: Comment on above: [facility] [address] [place], [address] Neutrophils/100 WBC (Bld) 56.7 % Normal 47-70 [facility] Work Phone: Comment on above: [facility] [address] [place], [address] Neutrophils/100 WBC Auto (Bld) 56.7 % Normal 47-70 [facility] Work Phone: Platelet mean volume Auto Entitic volume (Bld) 9.6 fL Normal 6.2-12.0 [facility] Work Phone: Platelet mean volume Entitic volume (Bld) 9.6 fL Normal 6.2-12.0 Comprehensi Internal Medicine Work Phone: Comment on above: [facility] [address] [place], [address] Platelets #/vol (Bld) 261 10*3/uL Normal 150-450 [facility] Work Phone: Comment on above: [facility] [address] [place], [address] Platelets Auto #/vol (Bld) 261 10*3/uL Normal 150-450 [facility] Work Phone: RBC #/vol (Bld) 4.42 {M/mm3} Normal 4.2-5.4 Compreh ensive Internal Medicine Work Phone: Comment on above: [facility] [address] [place], [address] RBC Auto #/vol (Bld) 4.42 {M/mm3} Normal 4.2-5.4 [facility] Work Phone: RDW SD 43.0 fL Normal 35.1-43.9 [facility] Work Phone: Comment on above: [facility] [address] [place], [address] WBC #/vol (Bld) 5.8 10*3/uL Normal 4.4-11.0 Comprehe nsive Internal Medicine Work Phone: Comment on above: [facility] [address] [place], [place], [phone] WBC Auto #/vol (Bld) 5.8 10*3/uL Normal 4.4-11.0 Com prehensive Internal Medicine Work Phone: Comprehensive Metabolic Prof ilOrdered By: Truckman on 02-01-2018 Comprehensive metabolic 2000 panel 1.0 {RATIO} Normal 0.9-2.4 [facility] Work Phone: Comment on above: [facility] [address] [place], [place], [phone] Comprehensive metabolic 2000 panel 32 U/L Normal 13-56 [facility] Work Phone: Comment on above: [facility] [address] [place], [place], [phone] Comprehensive metabolic 2000 panel 13 mg/dL Normal 7-18 [facility] Work Phone: Comment on above: [facility] [address] [place], [place], [phone] Comprehensive metabolic 2000 panel 0.92 mg/dL Normal 0.55-1.02 [facility] Work Phone: Comment on above: The validity of the calculated GFR AND GFRAA in patients over70 years has not been determined. Clinical correlation isessential. [facility] [address] [place], [place], [phone] Comprehensive metabolic 2000 panel 66 mL/min Normal [facility] Work Phone: Comment on above: Non- GFR Calc [facility] [address] [place], [place], [phone] Comprehensive metabolic 2000 panel 79 mL/min Normal [facility] Work Phone: Comment on above: GFR Calc [facility] [address] [place], [address] Comprehensive metabolic 2000 panel 14.2 {RATIO} Normal 10-20 [facility] Work Phone: Comment on above: [facility] [address] [place], [address] Comprehensive metabolic 2000 panel 7.5 g/dL Normal 6.4-8.2 [facility] Work Phone: Comment on above: [facility] [address] [place], [address] Comprehensive metabolic 2000 panel 3.8 g/dL Normal 3.2-5.0 [facility] Work Phone: Comment on above: [facility] [address] [place], [address] Comprehensive metabolic 2000 panel 3.7 g/dL Normal 2.2-4.2 [facility] Work Phone: Comment on above: [facility] [address] [place], [address] Comprehensive metabolic 2000 panel 96 mg/dL Normal 74-106 [facility] Work Phone: Comment on above: Please note revised GLUCOSE reference range ggnennrgh13/02/2018. [facility] [address] [place], [address] Comprehensive metabolic 2000 panel 8 1 Normal 5-15 [facility] Work Phone: Comment on above: [facility] [address] [place], [address] Comprehensive metabolic 2000 panel 28.0 mmol/L Normal 21.0-32.0 [facility] Work Phone: Comment on above: [facility] [address] [place], [address] Comprehensive metabolic 2000 panel 105 mmol/L Normal 98-107 [facility] Work Phone: Comment on above: [facility] [address] [place], [address] Comprehensive metabolic 2000 panel 9.0 mg/dL Normal 8.5-10.1 [facility] Work Phone: Comment on above: [facility] [address] [place], [address] Comprehensive metabolic 2000 panel 21 U/L Normal 15-37 [facility] Work Phone: Comment on above: [facility] [address] [place], [address] Comprehensive metabolic 2000 panel 4.1 mmol/L Normal 3.5-5.1 [facility] Work Phone: Comment on above: [facility] [address] [place], [address] Comprehensive metabolic 2000 panel 75 U/L Normal 45-117 [facility] Work Phone: Comment on above: [facility] [address] [place], [place], [address] Comprehensive metabolic 2000 panel 141 mmol/L Normal 136-145 [facility] Work Phone: Comment on above: [facility] [address] [place], [address] Comprehensive metabolic 2000 panel 0.80 mg/dL Normal 0.20-1.00 [facility] Work Phone: Comment on above: [facility] [address] [place], [place], [address] CBC W/Diff, AutomatedOrdered By: Truckman on 11-10-2017 Absolute Lymph 1.32 {X10_3/ul} Normal 0.83-4.51 Compr ehensive Internal Medicine Work Phone: Absolute Neut 3.7 {X10_3/uL} Normal 2.0-7.7 Compreh ensive Internal Medicine Work Phone: Comment on above: [facility] [address] [place], [address] Basophils/100 WBC (Bld) 0.5 % Normal 0-1 C omprehensive Internal Medicine Work Phone: Comment on above: [facility] [address] [place], [address] Basophils/100 WBC Auto (Bld) 0.5 % Normal 0-1 [facility] Work Phone: Eosinophils/100 WBC (Bld) 2.1 % Normal 0-5 [facility] Work Phone: Comment on above: [facility] [address] [place], [address] Eosinophils/100 WBC Auto (Bld) 2.1 % Normal 0-5 [facility] Work Phone: Erythrocyte distribution width Auto Ratio (RBC) 14.1 % Normal 11.6-14.6 [facility] Work Phone: Erythrocyte distribution width Ratio (RBC) 14.1 % Normal 11.6-14.6 [facility] Work Phone: Comment on above: [facility] [address] [place], [address] Hematocrit Auto Volume Fraction (Bld) 41.2 % Normal 37-47 [facility] Work Phone: Hematocrit Volume Fraction (Bld) 41.2 % Normal 37-47 [facility] Work Phone: Comment on above: [facility] [address] [place], [address] Hemoglobin mass conc (Bld) 13.3 g/dL Normal 12.0-15.0 [facility] Work Phone: Comment on above: [facility] [address] [place], [address] IM GRAN % 0.200 % Normal 0.0-0.9 [facility] Work Phone: Comment on above: IG% - Immature Granu locytes (promyelocytes, myelocytes andmetamyelocytes) > 1% indicates that a LEFT SHIFT is Present. [facility] [address] [place], [place], [phone] Lymphocytes #/vol (Bld) 1.32 {X10_3/ul} Normal 0.83-4. 51 [facility] Work Phone: Comment on above: [place] [address] [place], [address] Lymphocytes/100 WBC (Bld) 22.8 % Normal 19-41 [facility] Work Phone: Comment on above: [facility] [address] [place], [address] Lymphocytes/100 WBC Auto (Bld) 22.8 % Normal 19-41 [facility] Work Phone: MCH Auto Entitic mass (RBC) 29.7 pg Normal 27.0-32.0 [facility] Work Phone: MCH Entitic mass (RBC) 29.7 pg Normal 27.0-32.0 [facility] Internal Medicine Work Phone: Comment on above: [place] [address] [place], [place], [phone] MCHC Auto mass conc (RBC) 32.3 {g/gl} Normal 32-36 [facility] Work Phone: MCHC mass conc (RBC) 32.3 {g/gl} Normal 32-36 [facility] Internal Medicine Work Phone: Comment on above: [facility] [address] [place], [place], [phone] MCV Auto Entitic volume (RBC) 92.0 fL Normal 81-99 [facility] Work Phone: MCV Entitic volume (RBC) 92.0 fL Normal 81-99 [facility] Work Phone: Comment on above: [facility] [address] [place], [address] Monocytes/100 WBC Auto (Bld) 10.2 % Abnormal 0-10 [facility] Work Phone: Comment on above: [facility] [address] [place], [address] Neutrophils/100 WBC (Bld) 64.2 % Normal 47-70 [facility] Work Phone: Comment on above: [facility] [address] [place], [address] Neutrophils/100 WBC Auto (Bld) 64.2 % Normal 47-70 [facility] Work Phone: Platelet mean volume Auto Entitic volume (Bld) 9.1 fL Normal 6.2-12.0 [facility] Work Phone: Platelet mean volume Entitic volume (Bld) 9.1 fL Normal 6.2-12.0 Comprehensi Internal Medicine Work Phone: Comment on above: [facility] [address] [place], [address] Platelets #/vol (Bld) 261 10*3/uL Normal 150-450 Co [facility] Internal Medicine Work Phone: Comment on above: [facility] [address] [place], [address] Platelets Auto #/vol (Bld) 261 10*3/uL Normal 150-450 [facility] Work Phone: RBC #/vol (Bld) 4.48 {M/mm3} Normal 4.2-5.4 Compreh ensive Internal Medicine Work Phone: Comment on above: [facility] [address] [place], [address] RBC Auto #/vol (Bld) 4.48 {M/mm3} Normal 4.2-5.4 [facility] Work Phone: RDW SD 46.6 fL Abnormal 35.1-43.9 [facility] Work Phone: Comment on above: [facility] [address] [place], [place], [phone] WBC #/vol (Bld) 5.8 10*3/uL Normal 4.4-11.0 Comprehe nsive Internal Medicine Work Phone: Comment on above: [facility] [address] [place], [place], [phone] WBC Auto #/vol (Bld) 5.8 10*3/uL Normal 4.4-11.0 [facility] Work Phone: [facility] Metabolic Prof ilOrdered By: Truckman on 11-10-2017 Comprehensive metabolic 2000 panel 78 U/L Normal 45-117 [facility] Medicine Work Phone: Comment on above: [facility] [address] [place], [place], [phone] Comprehensive metabolic 2000 panel 11 mg/dL Normal 7-18 [facility] Internal Medicine Work Phone: Comment on above: [facility] [address] [place], [place], [phone] Comprehensive metabolic 2000 panel 0.86 mg/dL Normal 0.55-1.02 [facility] Internal Medicine Work Phone: Comment on above: The validity of the calculated GFR AND GFRAA in patients over70 years has not been determined. Clinical correlation isessential. [facility] [address] [place], [place], [phone] Comprehensive metabolic 2000 panel 29.0 mmol/L Normal 21.0-32.0 [facility] Work Phone: Comment on above: [facility] [address] [place], [place], [phone] Comprehensive metabolic 2000 panel 105 mmol/L Normal 98-107 [facility] Medicine Work Phone: Comment on above: [facility] [address] [place], [place], [phone] Comprehensive metabolic 2000 panel 3.9 mmol/L Normal 3.5-5.1 [facility] Work Phone: Comment on above: [facility] [address] [place], [place], [phone] Comprehensive metabolic 2000 panel 141 mmol/L Normal 136-145 [facility] Medicine Work Phone: Comment on above: [facility] [address] [place], [place], [phone] Comprehensive metabolic 2000 panel 90 mg/dL Normal 74-106 [facility] Internal Medicine Work Phone: Comment on above: Please note revised GLUCOSE reference range [id number]/02/2018. [facility] [address] [place], [place], [phone] Comprehensive metabolic 2000 panel 15 U/L Normal 15-37 [facility] Internal Medicine Work Phone: Comment on above: [facility] [address] [place], [place], [phone] Comprehensive metabolic 2000 panel 1.20 mg/dL Abnormal 0.20-1.00 [facility] Work Phone: Comment on above: [facility] [address] [place], [place], [address] Comprehensive metabolic 2000 panel 71 mL/min Normal [facility] Internal Medicine Work Phone: Comment on above: Non- GFR Calc [facility] [address] [place], [place], [phone] Comprehensive metabolic 2000 panel 86 mL/min Normal [facility] Medicine Work Phone: Comment on above: GFR Calc [facility] [address] [place], [place], [phone] Comprehensive metabolic 2000 panel 12.9 {RATIO} Normal 10-20 [facility] Work Phone: Comment on above: [facility] [address] [place], [address] Comprehensive metabolic 2000 panel 7.6 g/dL Normal 6.4-8.2 [facility] Work Phone: Comment on above: [facility] [address] [place], [place], [address] Comprehensive metabolic 2000 panel 4.0 g/dL Normal 3.2-5.0 [facility] Work Phone: Comment on above: [facility] [address] [place], [address] Comprehensive metabolic 2000 panel 23 U/L Normal 13-56 [facility] Medicine Work Phone: Comment on above: Please note revised ALT reference range [id number]/28/2018. [facility] [address] [place], [address] Comprehensive metabolic 2000 panel 7 1 Normal 5-15 [facility] Internal Medicine Work Phone: Comment on above: [facility] [address] [place], [place], [address] Comprehensive metabolic 2000 panel 3.6 g/dL Normal 2.2-4.2 [facility] Work Phone: Comment on above: [facility] [address] [place], [address] Comprehensive metabolic 2000 panel 1.1 {RATIO} Normal 0.9-2.4 [facility] Work Phone: Comment on above: [facility] [address] [place], [address] Comprehensive metabolic 2000 panel 8.6 mg/dL Normal 8.5-10.1 [facility] Work Phone: Comment on above: [facility] [address] [place], [place], [phone] CBC W/Diff, AutomatedOrdered By: Truckman on 05-10-2017 Absolute Lymph 1.92 {X10_3/ul} Normal 0.83-4.51 Compr ehensive Internal Medicine Work Phone: Absolute Neut 2.7 {X10_3/uL} Normal 2.0-7.7 Compreh ensive Internal Medicine Work Phone: Comment on above: [facility] [address] [place], [address] Basophils/100 WBC (Bld) 0.5 % Normal 0-1 C omprehensive Internal Medicine Work Phone: Comment on above: [facility] [address] [place], [address] Basophils/100 WBC Auto (Bld) 0.5 % Normal 0-1 [facility] Work Phone: Eosinophils/100 WBC (Bld) 3.2 % Normal 0-5 [facility] Work Phone: Comment on above: [facility] [address] [place], [address] Eosinophils/100 WBC Auto (Bld) 3.2 % Normal 0-5 [facility] Work Phone: Erythrocyte distribution width Auto Ratio (RBC) 13.3 % Normal 11.6-14.6 [facility] Work Phone: Erythrocyte distribution width Ratio (RBC) 13.3 % Normal 11.6-14.6 [facility] Work Phone: Comment on above: [facility] [address] [place], [place], [phone] Hematocrit Auto Volume Fraction (Bld) 38.4 % Normal 37-47 [facility] Work Phone: Hematocrit Volume Fraction (Bld) 38.4 % Normal 37-47 [facility] Work Phone: Comment on above: [facility] [address] [place], [place], [phone] Hemoglobin mass conc (Bld) 12.6 g/dL Normal 12.0-15.0 [facility] Work Phone: Comment on above: [facility] [address] [place], [address] IM GRAN % 0.200 % Normal 0.0-0.9 [facility] Work Phone: Comment on above: IG% - Immature Granu locytes (promyelocytes, myelocytes andmetamyelocytes) > 1% indicates that a LEFT SHIFT is Present. [facility] [address] [place], [place], [phone] Lymphocytes #/vol (Bld) 1.92 {X10_3/ul} Normal 0.83-4. 51 [facility] Work Phone: Comment on above: [facility] [address] [place], [address] Lymphocytes/100 WBC (Bld) 34.2 % Normal 19-41 [facility] Work Phone: Comment on above: [facility] [address] [place], [address] Lymphocytes/100 WBC Auto (Bld) 34.2 % Normal 19-41 [facility] Work Phone: MCH Auto Entitic mass (RBC) 29.9 pg Normal 27.0-32.0 [facility] Work Phone: MCH Entitic mass (RBC) 29.9 pg Normal 27.0-32.0 [facility] Work Phone: Comment on above: [facility] [address] [place], [address] MCHC Auto mass conc (RBC) 32.8 {g/gl} Normal 32-36 [facility] Work Phone: MCHC mass conc (RBC) 32.8 {g/gl} Normal 32-36 [facility] prehensive Internal Medicine Work Phone: Comment on above: [facility] [address] [place], [address] MCV Auto Entitic volume (RBC) 91.2 fL Normal 81-99 [facility] Work Phone: MCV Entitic volume (RBC) 91.2 fL Normal 81-99 [facility] Work Phone: Comment on above: [facility] [address] [place], [address] Monocytes/100 WBC Auto (Bld) 14.1 % Abnormal 0-10 [facility] Work Phone: Comment on above: [facility] [address] [place], [address] Neutrophils/100 WBC (Bld) 47.8 % Normal 47-70 [facility] Work Phone: Comment on above: [facility] [address] [place], [address] Neutrophils/100 WBC Auto (Bld) 47.8 % Normal 47-70 [facility] Work Phone: Platelet mean volume Auto Entitic volume (Bld) 9.1 fL Normal 6.2-12.0 [facility] Work Phone: Platelet mean volume Entitic volume (Bld) 9.1 fL Normal 6.2-12.0 Comprehensi Internal Medicine Work Phone: Comment on above: [facility] [address] [place], [address] Platelets #/vol (Bld) 218 10*3/uL Normal 150-450 Co [facility] Internal Medicine Work Phone: Comment on above: [facility] [address] [place], [address] Platelets Auto #/vol (Bld) 218 10*3/uL Normal 150-450 [facility] Work Phone: RBC #/vol (Bld) 4.21 {M/mm3} Normal 4.2-5.4 Compreh ensive Internal Medicine Work Phone: Comment on above: [facility] [address] [place], [place], [phone] RBC Auto #/vol (Bld) 4.21 {M/mm3} Normal 4.2-5.4 Co mprehensive Internal Medicine Work Phone: RDW SD 43.7 fL Normal 35.1-43.9 [facility] Work Phone: Comment on above: [facility] [address] [place], [place], [phone] WBC #/vol (Bld) 5.6 10*3/uL Normal 4.4-11.0 Comprehe nsive Internal Medicine Work Phone: Comment on above: [facility] [address] [place], [place], [phone] WBC Auto #/vol (Bld) 5.6 10*3/uL Normal 4.4-11.0 [facility] prehensive Internal Medicine Work Phone: Comprehensive Metabolic Prof ilOrdered By: Truckman on 05-10-2017 Comprehensive metabolic 2000 panel 7 1 Normal 5-15 [facility] Medicine Work Phone: Comment on above: [facility] [address] [place], [place], [phone] Comprehensive metabolic 2000 panel 104 mmol/L Normal 98-107 [facility] Medicine Work Phone: Comment on above: [facility] [address] [place], [place], [phone] Comprehensive metabolic 2000 panel 3.7 mmol/L Normal 3.5-5.1 [facility] Work Phone: Comment on above: [facility] [address] [place], [address] Comprehensive metabolic 2000 panel 140 mmol/L Normal 136-145 [facility] Medicine Work Phone: Comment on above: [facility] [address] [place], [address] Comprehensive metabolic 2000 panel 1.00 mg/dL Normal 0.20-1.00 [facility] Medicine Work Phone: Comment on above: [facility] [address] [place], [address] Comprehensive metabolic 2000 panel 24 U/L Normal 12-78 [facility] Medicine Work Phone: Comment on above: [facility] [address] [place], [address] Comprehensive metabolic 2000 panel 72 U/L Normal 45-117 [facility] Work Phone: Comment on above: [facility] [address] [place], [address] Comprehensive metabolic 2000 panel 16 U/L Normal 15-37 [facility] Work Phone: Comment on above: [facility] [address] [place], [place], [phone] Comprehensive metabolic 2000 panel 8.9 mg/dL Normal 8.5-10.1 [facility] Work Phone: Comment on above: [facility] [address] [place], [address] Comprehensive metabolic 2000 panel 29.0 mmol/L Normal 21.0-32.0 [facility] Medicine Work Phone: Comment on above: [facility] [address] [place], [address] Comprehensive metabolic 2000 panel 1.1 {RATIO} Normal 0.9-2.4 [facility] Medicine Work Phone: Comment on above: [facility] [address] [place], [address] Comprehensive metabolic 2000 panel 3.5 g/dL Normal 2.3-3.5 [facility] Medicine Work Phone: Comment on above: [facility] [address] [place], [place], [address] Comprehensive metabolic 2000 panel 3.7 g/dL Normal 3.4-5.0 [facility] Medicine Work Phone: Comment on above: [facility] [address] [place], [place], [phone] Comprehensive metabolic 2000 panel 7.2 g/dL Normal 6.4-8.2 [facility] Work Phone: Comment on above: [facility] [address] [place], [place], [phone] Comprehensive metabolic 2000 panel 16.6 {RATIO} Normal 10-20 [facility] Work Phone: Comment on above: [facility] [address] [place], [place], [address] Comprehensive metabolic 2000 panel 87 mL/min Normal [facility] Medicine Work Phone: Comment on above: GFR Calc [facility] [address] [place], [place], [phone] Comprehensive metabolic 2000 panel 72 mL/min Normal [facility] Internal Medicine Work Phone: Comment on above: Non- GFR Calc [facility] [address] [place], [place], [address] Comprehensive metabolic 2000 panel 0.84 mg/dL Normal 0.55-1.02 [facility] Work Phone: Comment on above: The validity of the calculated GFR AND GFRAA in patients over70 years has not been determined. Clinical correlation isessential. [facility] [address] [place], [place], [phone] Comprehensive metabolic 2000 panel 14 mg/dL Normal 7-18 [facility] Medicine Work Phone: Comment on above: [facility] [address] [place], [place], [phone] Comprehensive metabolic 2000 panel 91 mg/dL Normal 70-110 [facility] Medicine Work Phone: Comment on above: [facility] [address] [place], [place], [phone] CBC W/Diff, AutomatedOrdered By: Truckman on 02-17-2017 Absolute Lymph 1.90 {X10_3/ul} Normal 0.83-4.51 Compr ehensive Internal Medicine Work Phone: Absolute Neut 3.2 {X10_3/uL} Normal 2.0-7.7 Compreh ensive Internal Medicine Work Phone: Comment on above: [facility] [address] [place], [address] Basophils/100 WBC (Bld) 0.5 % Normal 0-1 C omprehensive Internal Medicine Work Phone: Comment on above: [facility] [address] [place], [address] Basophils/100 WBC Auto (Bld) 0.5 % Normal 0-1 [facility] Work Phone: Eosinophils/100 WBC (Bld) 2.3 % Normal 0-5 [facility] Work Phone: Comment on above: [facility] [address] [place], [address] Eosinophils/100 WBC Auto (Bld) 2.3 % Normal 0-5 [facility] Work Phone: Erythrocyte distribution width Auto Ratio (RBC) 13.0 % Normal 11.6-14.6 [facility] Work Phone: Erythrocyte distribution width Ratio (RBC) 13.0 % Normal 11.6-14.6 [facility] Work Phone: Comment on above: [facility] [address] [place], [place], [phone] Hematocrit Auto Volume Fraction (Bld) 39.5 % Normal 37-47 [facility] Work Phone: Hematocrit Volume Fraction (Bld) 39.5 % Normal 37-47 [facility] Work Phone: Comment on above: [facility] [address] [place], [address] Hemoglobin mass conc (Bld) 13.1 g/dL Normal 12.0-15.0 [facility] Work Phone: Comment on above: [facility] [address] [place], [address] IM GRAN % 0.200 % Normal 0.0-0.9 [facility] Work Phone: Comment on above: IG% - Immature Granu locytes (promyelocytes, myelocytes andmetamyelocytes) > 1% indicates that a LEFT SHIFT is Present. [facility] [address] [place], [address] Lymphocytes #/vol (Bld) 1.90 {X10_3/ul} Normal 0.83-4. 51 [facility] Work Phone: Comment on above: [facility] [address] [place], [address] Lymphocytes/100 WBC (Bld) 30.9 % Normal 19-41 [facility] Work Phone: Comment on above: [facility] [address] [place], [address] Lymphocytes/100 WBC Auto (Bld) 30.9 % Normal 19-41 [facility] Work Phone: MCH Auto Entitic mass (RBC) 30.4 pg Normal 27.0-32.0 [facility] Work Phone: MCH Entitic mass (RBC) 30.4 pg Normal 27.0-32.0 [facility] Internal Medicine Work Phone: Comment on above: [facility] [address] [place], [place], [phone] MCHC Auto mass conc (RBC) 33.2 {g/gl} Normal 32-36 [facility] Work Phone: MCHC mass conc (RBC) 33.2 {g/gl} Normal 32-36 Com prehensive Internal Medicine Work Phone: Comment on above: [facility] [address] [place], [address] MCV Auto Entitic volume (RBC) 91.6 fL Normal 81-99 [facility] Work Phone: MCV Entitic volume (RBC) 91.6 fL Normal 81-99 [facility] Work Phone: Comment on above: [facility] [address] [place], [address] Monocytes/100 WBC Auto (Bld) 13.8 % Abnormal 0-10 [facility] Work Phone: Comment on above: [facility] [address] [place], [address] Neutrophils/100 WBC (Bld) 52.3 % Normal 47-70 [facility] Work Phone: Comment on above: [facility] [address] [place], [address] Neutrophils/100 WBC Auto (Bld) 52.3 % Normal 47-70 [facility] Work Phone: Platelet mean volume Auto Entitic volume (Bld) 9.5 fL Normal 6.2-12.0 [facility] Work Phone: Platelet mean volume Entitic volume (Bld) 9.5 fL Normal 6.2-12.0 Comprehensi Internal Medicine Work Phone: Comment on above: [facility] [address] [place], [address] Platelets #/vol (Bld) 265 10*3/uL Normal 150-450 Co mprehensive Internal Medicine Work Phone: Comment on above: [facility] [address] [place], [address] Platelets Auto #/vol (Bld) 265 10*3/uL Normal 150-450 [facility] Work Phone: RBC #/vol (Bld) 4.31 {M/mm3} Normal 4.2-5.4 Compreh ensive Internal Medicine Work Phone: Comment on above: [facility] [address] [place], [address] RBC Auto #/vol (Bld) 4.31 {M/mm3} Normal 4.2-5.4 [facility] Work Phone: RDW SD 42.6 fL Normal 35.1-43.9 [facility] Work Phone: Comment on above: [facility] [address] [place], [address] WBC #/vol (Bld) 6.2 10*3/uL Normal 4.4-11.0 Comprehe nsive Internal Medicine Work Phone: Comment on above: [facility] [address] [place], [address] WBC Auto #/vol (Bld) 6.2 10*3/uL Normal 4.4-11.0 Com prehensive Internal Medicine Work Phone: Comprehensive Metabolic Prof ilOrdered By: Truckman on 02-17-2017 Comprehensive metabolic 2000 panel 80 mL/min Normal [facility] Work Phone: Comment on above: Non- GFR Calc [facility] [address] [place], [address] Comprehensive metabolic 2000 panel 22 U/L Normal 12-78 [facility] Medicine Work Phone: Comment on above: [facility] [address] [place], [address] Comprehensive metabolic 2000 panel 29.0 mmol/L Normal 21.0-32.0 [facility] Work Phone: Comment on above: [facility] [address] [place], [address] Comprehensive metabolic 2000 panel 104 mmol/L Normal 98-107 [facility] Medicine Work Phone: Comment on above: [facility] [address] [place], [address] Comprehensive metabolic 2000 panel 3.8 mmol/L Normal 3.5-5.1 [facility] Work Phone: Comment on above: [facility] [address] [place], [address] Comprehensive metabolic 2000 panel 140 mmol/L Normal 136-145 [facility] Medicine Work Phone: Comment on above: [facility] [place], [place], [address] Comprehensive metabolic 2000 panel 1.00 mg/dL Normal 0.20-1.00 [facility] Work Phone: Comment on above: [facility] [address] [place], [place], [address] Comprehensive metabolic 2000 panel 18.1 {RATIO} Normal 10-20 [facility] Medicine Work Phone: Comment on above: [facility] [address] [place], [place], [address] Comprehensive metabolic 2000 panel 14 mg/dL Normal 7-18 [facility] Medicine Work Phone: Comment on above: [facility] [address] [place], [place], [id number] Comprehensive metabolic 2000 panel 0.78 mg/dL Normal 0.55-1.02 [facility] Work Phone: Comment on above: The validity of the calculated GFR AND GFRAA in patients over70 years has not been determined. Clinical correlation isessential. [facility] [address] [place], [address] Comprehensive metabolic 2000 panel 88 mg/dL Normal 70-110 [facility] Work Phone: Comment on above: [facility] [address] [place], [address] Comprehensive metabolic 2000 panel 96 mL/min Normal [facility] Work Phone: Comment on above: GFR Calc [facility] [address] [place], [address] Comprehensive metabolic 2000 panel 7.4 g/dL Normal 6.4-8.2 [facility] Work Phone: Comment on above: [facility] [address] [place], [address] Comprehensive metabolic 2000 panel 3.7 g/dL Normal 3.4-5.0 [facility] Work Phone: Comment on above: [facility] [address] [place], [address] Comprehensive metabolic 2000 panel 1.0 {RATIO} Normal 0.9-2.4 [facility] Work Phone: Comment on above: [facility] [address] [place], [address] Comprehensive metabolic 2000 panel 8.6 mg/dL Normal 8.5-10.1 [facility] Work Phone: Comment on above: [facility] [address] [place], [address] Comprehensive metabolic 2000 panel 15 U/L Normal 15-37 [facility] Work Phone: Comment on above: [facility] [address] [place], [address] Comprehensive metabolic 2000 panel 119 U/L Abnormal 45-117 [facility] Work Phone: Comment on above: [facility] [address] [place], [place], [phone] Comprehensive metabolic 2000 panel 7 1 Normal 5-15 [facility] Work Phone: Comment on above: [facility] [address] [place], [address] Office Visiton 02-15-2017 Documentation of current medications (procedure) Done Invalid Interpretation Code [facility] Work Phone: Tobacco use CPHS Never smoker Invalid Interpretation Code [facility] Work Phone: CBC W/Diff, AutomatedOrdered By: Truckman on 11-22-2016 Absolute Lymph 1.61 {X10_3/ul} Normal 0.83-4.51 Compr ehensive Internal Medicine Work Phone: Absolute Neut 2.0 {X10_3/uL} Normal 2.0-7.7 Compreh ensive Internal Medicine Work Phone: Comment on above: [facility] [address] [place], [address] Basophils/100 WBC (Bld) 0.7 % Normal 0-1 C omprehensive Internal Medicine Work Phone: Comment on above: [facility] [address] [place], [address] Basophils/100 WBC Auto (Bld) 0.7 % Normal 0-1 [facility] Work Phone: Eosinophils/100 WBC (Bld) 3.8 % Normal 0-5 [facility] Work Phone: Comment on above: [facility] [address] [place], [phone]) Eosinophils/100 WBC Auto (Bld) 3.8 % Normal 0-5 [facility] Work Phone: Erythrocyte distribution width Auto Ratio (RBC) 13.7 % Normal 11.6-14.6 [facility] Work Phone: Erythrocyte distribution width Ratio (RBC) 13.7 % Normal 11.6-14.6 [facility] Work Phone: Comment on above: [place] [facility] [address] [place], [place], [phone] Hematocrit Auto Volume Fraction (Bld) 39.6 % Normal 37-47 [facility] Work Phone: Hematocrit Volume Fraction (Bld) 39.6 % Normal 37-47 [facility] Work Phone: Comment on above: [place] [address] [place], [place], [phone] Hemoglobin mass conc (Bld) 12.7 g/dL Normal 12.0-15.0 [facility] Work Phone: Comment on above: [facility] [address] [place], [phone] IM GRAN % 0.200 % Normal 0.0-0.9 [facility] Work Phone: Comment on above: IG% - Immature Granu locytes (promyelocytes, myelocytes andmetamyelocytes) > 1% indicates that a LEFT SHIFT is Present. [facility] [place] [address] [place], [place], [phone] Lymphocytes #/vol (Bld) 1.61 {X10_3/ul} Normal 0.83-4. 51 [facility] Work Phone: Comment on above: [place] [address] [place], [address] Lymphocytes/100 WBC (Bld) 36.4 % Normal 19-41 [facility] Work Phone: Comment on above: [place] [address] [place], [address] Lymphocytes/100 WBC Auto (Bld) 36.4 % Normal 19-41 [facility] Work Phone: MCH Auto Entitic mass (RBC) 29.7 pg Normal 27.0-32.0 [facility] Work Phone: MCH Entitic mass (RBC) 29.7 pg Normal 27.0-32.0 [facility] Work [facility]: Comment on above: [facility] [address] [place], [place], [phone] MCHC Auto mass conc (RBC) 32.1 {g/gl} Normal 32-36 [facility] Work Phone: MCHC mass conc (RBC) 32.1 {g/gl} Normal 32-36 [facility] prehensive Internal Medicine Work Phone: Comment on above: [facility] [address] [place], [place], [phone] MCV Auto Entitic volume (RBC) 92.5 fL Normal 81-99 [facility] Work Phone: MCV Entitic volume (RBC) 92.5 fL Normal 81-99 [facility] Work Phone: Comment on above: [facility] [address] [place], [address] Monocytes/100 WBC Auto (Bld) 13.1 % Abnormal 0-10 [facility] Work Phone: Comment on above: [facility] [address] [place], [address] Neutrophils/100 WBC (Bld) 45.8 % Abnormal 47-70 [facility] Work Phone: Comment on above: [facility] [address] [place], [address] Neutrophils/100 WBC Auto (Bld) 45.8 % Abnormal 47-70 [facility] Work Phone: Platelet mean volume Auto Entitic volume (Bld) 9.4 fL Normal 6.2-12.0 [facility] Work Phone: Platelet mean volume Entitic volume (Bld) 9.4 fL Normal 6.2-12.0 Comprehensi ve Internal Medicine Work Phone: Comment on above: [facility] [address] [place], [address] Platelets #/vol (Bld) 240 10*3/uL Normal 150-450 Co mprehensive Internal Medicine Work Phone: Comment on above: [facility] [address] [place], [address] Platelets Auto #/vol (Bld) 240 10*3/uL Normal 150-450 [facility] Work Phone: RBC #/vol (Bld) 4.28 {M/mm3} Normal 4.2-5.4 Compreh ensive Internal Medicine Work Phone: Comment on above: [facility] [address] [place], [address] RBC Auto #/vol (Bld) 4.28 {M/mm3} Normal 4.2-5.4 [facility] Work Phone: RDW SD 45.7 fL Abnormal 35.1-43.9 [facility] Work Phone: Comment on above: [facility] [address] [place], [address] WBC #/vol (Bld) 4.4 10*3/uL Normal 4.4-11.0 Comprehe nsive Internal Medicine Work Phone: Comment on above: [facility] [address] [place], [address] WBC Auto #/vol (Bld) 4.4 10*3/uL Normal 4.4-11.0 Com prehensive Internal Medicine Work Phone: Comprehensive Metabolic Prof ilOrdered By: Truckman on 11-22-2016 Comprehensive metabolic 2000 panel 16 U/L Normal 15-37 [facility] Work Phone: Comment on above: [facility] [address] [place], [address] Comprehensive metabolic 2000 panel 8.9 mg/dL Normal 8.5-10.1 [facility] Work Phone: Comment on above: [facility] [address] [place], [place], [address] Comprehensive metabolic 2000 panel 1.1 {RATIO} Normal 0.9-2.4 [facility] Work Phone: Comment on above: [facility] [address] [place], [address] Comprehensive metabolic 2000 panel 3.4 g/dL Normal 2.3-3.5 [facility] Work Phone: Comment on above: [facility] [address] [place], [address] Comprehensive metabolic 2000 panel 3.9 g/dL Normal 3.4-5.0 [facility] Work Phone: Comment on above: [facility] [address] [place], [place], [address] Comprehensive metabolic 2000 panel 7.3 g/dL Normal 6.4-8.2 [facility] Work Phone: Comment on above: [facility] [address] [place], [address] Comprehensive metabolic 2000 panel 12.9 {RATIO} Normal 10-20 [facility] Work Phone: Comment on above: [facility] [address] [place], [address] Comprehensive metabolic 2000 panel 86 mL/min Normal [facility] Work Phone: Comment on above: GFR Calc [facility] [address] [place], [address] Comprehensive metabolic 2000 panel 71 mL/min Normal [facility] Work Phone: Comment on above: Non- GFR Calc [facility] [address] [place], [place], [address] Comprehensive metabolic 2000 panel 0.86 mg/dL Normal 0.55-1.02 [facility] Work Phone: Comment on above: The validity of the calculated GFR AND GFRAA in patients over70 years has not been determined. Clinical correlation isessential. [facility] [address] [place], [place], [address] Comprehensive metabolic 2000 panel 6 1 Normal 5-15 [facility] Work Phone: Comment on above: [facility] [address] [place], [place], [address] Comprehensive metabolic 2000 panel 28.0 mmol/L Normal 21.0-32.0 [facility] Work Phone: Comment on above: [facility] [address] [place], [place], [address] Comprehensive metabolic 2000 panel 107 mmol/L Normal 98-107 [facility] Work Phone: Comment on above: [facility] [address] [place], [place], [address] Comprehensive metabolic 2000 panel 0.80 mg/dL Normal 0.20-1.00 [facility] Work Phone: Comment on above: [facility] [address] [place], [place], [address] Comprehensive metabolic 2000 panel 3.6 mmol/L Normal 3.5-5.1 [facility] Work Phone: Comment on above: [facility] [address] [place], [place], [address] Comprehensive metabolic 2000 panel 141 mmol/L Normal 136-145 [facility] Work Phone: Comment on above: [facility] [address] [place], [place], [phone] Comprehensive metabolic 2000 panel 100 mg/dL Normal 70-110 [facility] Work Phone: Comment on above: [facility] [address] [place], [place], [phone] Comprehensive metabolic 2000 panel 22 U/L Normal 12-78 [facility] Work Phone: Comment on above: [facility] [address] [place], [place], [phone] Comprehensive metabolic 2000 panel 79 U/L Normal 45-117 [facility] Work Phone: Comment on above: [facility] [address] [place], [place], [phone] Comprehensive metabolic 2000 panel 11 mg/dL Normal 7-18 [facility] Work Phone: Comment on above: [facility] [address] [place], [place], [phone] CBC W/Diff, AutomatedOrdered By: Truckman on 08-05-2016 Absolute Lymph 1.51 {X10_3/ul} Normal 0.83-4.51 Compr ehensive Internal Medicine Work Phone: Absolute Neut 2.8 {X10_3/uL} Normal 2.0-7.7 Compreh ensive Internal Medicine Work Phone: Comment on above: [facility] [address] [place], [place], [phone] Basophils/100 WBC (Bld) 0.8 % Normal 0-1 C omprehensive Internal Medicine Work Phone: Comment on above: [facility] [address] [place], [place], [phone] Basophils/100 WBC Auto (Bld) 0.8 % Normal 0-1 [facility] Work Phone: Eosinophils/100 WBC (Bld) 2.2 % Normal 0-5 [facility] Work Phone: Comment on above: [facility] [address] [place], [address] Eosinophils/100 WBC Auto (Bld) 2.2 % Normal 0-5 [facility] Work Phone: Erythrocyte distribution width Auto Ratio (RBC) 12.7 % Normal 11.6-14.6 [facility] Work Phone: Erythrocyte distribution width Ratio (RBC) 12.7 % Normal 11.6-14.6 [facility] Work Phone: Comment on above: [facility] [address] [place], [address] Hematocrit Auto Volume Fraction (Bld) 42.6 % Normal 37-47 [facility] Work Phone: Hematocrit Volume Fraction (Bld) 42.6 % Normal 37-47 [facility] Work Phone: Comment on above: [facility] [address] [place], [address] Hemoglobin mass conc (Bld) 14.0 g/dL Normal 12.0-15.0 [facility] Work Phone: Comment on above: [facility] [address] [place], [address] IM GRAN % 0.200 % Normal 0.0-0.9 [facility] Work Phone: Comment on above: IG% - Immature Granu locytes (promyelocytes, myelocytes andmetamyelocytes) > 1% indicates that a LEFT SHIFT is Present. [facility] [address] [place], [address] Lymphocytes #/vol (Bld) 1.51 {X10_3/ul} Normal 0.83-4. 51 [facility] Work Phone: Comment on above: [facility] [address] [place], [address] Lymphocytes/100 WBC (Bld) 30.1 % Normal 19-41 [facility] Work Phone: Comment on above: [facility] [address] [place], [address] Lymphocytes/100 WBC Auto (Bld) 30.1 % Normal 19-41 [facility] Work Phone: MCH Auto Entitic mass (RBC) 29.5 pg Normal 27.0-32.0 [facility] Work Phone: MCH Entitic mass (RBC) 29.5 pg Normal 27.0-32.0 [facility] Work Phone: Comment on above: [facility] [address] [place], [address] MCHC Auto mass conc (RBC) 32.9 {g/gl} Normal 32-36 [facility] Work Phone: MCHC mass conc (RBC) 32.9 {g/gl} Normal 32-36 [facility]: Comment on above: [facility] [address] [place], [address] MCV Auto Entitic volume (RBC) 89.9 fL Normal 81-99 [facility] Work Phone: MCV Entitic volume (RBC) 89.9 fL Normal 81-99 [facility] Work Phone: Comment on above: [facility] [address] [place], [address] Monocytes/100 WBC Auto (Bld) 11.6 % Abnormal 0-10 [facility] Work Phone: Comment on above: [facility] [address] [place], [address] Neutrophils/100 WBC (Bld) 55.1 % Normal 47-70 [facility] Work Phone: Comment on above: [facility] [address] [place], [address] Neutrophils/100 WBC Auto (Bld) 55.1 % Normal 47-70 [facility] Work Phone: Platelet mean volume Auto Entitic volume (Bld) 9.3 fL Normal 6.2-12.0 [facility] Work Phone: Platelet mean volume Entitic volume (Bld) 9.3 fL Normal 6.2-12.0 Comprehensi Internal Medicine Work Phone: Comment on above: [facility] [address] [place], [address] Platelets #/vol (Bld) 264 10*3/uL Normal 150-450 Co [facility] Internal Medicine Work Phone: Comment on above: [facility] [address] [place], [address] Platelets Auto #/vol (Bld) 264 10*3/uL Normal 150-450 [facility] Work Phone: RBC #/vol (Bld) 4.74 {M/mm3} Normal 4.2-5.4 Compreh ensive Internal Medicine Work Phone: Comment on above: [facility] [address] [place], [address] RBC Auto #/vol (Bld) 4.74 {M/mm3} Normal 4.2-5.4 Co [facility] Internal Medicine Work Phone: RDW SD 41.6 fL Normal 35.1-43.9 [facility] Internal Medicine Work Phone: Comment on above: [facility] [address] [place], [address] WBC #/vol (Bld) 5.0 10*3/uL Normal 4.4-11.0 Comprehe nsive Internal Medicine Work Phone: Comment on above: [facility] [address] [place], [address] WBC Auto #/vol (Bld) 5.0 10*3/uL Normal 4.4-11.0 [facility] prehensive Internal Medicine Work Phone: Comprehensive Metabolic Prof ilOrdered By: Truckman on 08-05-2016 Comprehensive metabolic 2000 panel 1.20 mg/dL Abnormal 0.20-1.00 [facility] Work Phone: Comment on above: [facility] [address] [place], [place], [address] Comprehensive metabolic 2000 panel 9 mg/dL Normal 7-18 [facility] Work Phone: Comment on above: [facility] [address] [place], [address] Comprehensive metabolic 2000 panel 78 mL/min Normal [facility] Work Phone: Comment on above: GFR Calc [facility] [address] [place], [place], [id number] Comprehensive metabolic 2000 panel 19 U/L Normal 12-78 [facility] Work Phone: Comment on above: [facility] [address] [place], [address] Comprehensive metabolic 2000 panel 82 U/L Normal 45-117 [facility] Work Phone: Comment on above: [facility] [address] [place], [address] Comprehensive metabolic 2000 panel 9.7 {RATIO} Abnormal 10-20 [facility] Work Phone: Comment on above: [facility] [address] [place], [address] Comprehensive metabolic 2000 panel 138 mmol/L Normal 136-145 [facility] Work Phone: Comment on above: [facility] [address] [place], [address] Comprehensive metabolic 2000 panel 18 U/L Normal 15-37 [facility] Work Phone: Comment on above: [facility] [address] [place], [address] Comprehensive metabolic 2000 panel 9.2 mg/dL Normal 8.5-10.1 [facility] Work Phone: Comment on above: [facility] [address] [place], [address] Comprehensive metabolic 2000 panel 3.9 mmol/L Normal 3.5-5.1 [facility] Work Phone: Comment on above: [facility] [address] [place], [address] Comprehensive metabolic 2000 panel 102 mmol/L Normal 98-107 [facility] Work Phone: Comment on above: [facility] [address] [place], [address] Comprehensive metabolic 2000 panel 1.1 {RATIO} Normal 0.9-2.4 [facility] Work Phone: Comment on above: [facility] [address] [place], [address] Comprehensive metabolic 2000 panel 27.0 mmol/L Normal 21.0-32.0 [facility] Work Phone: Comment on above: [facility] [address] [place], [address] Comprehensive metabolic 2000 panel 9 1 Normal 5-15 [facility] Work Phone: Comment on above: [facility] [address] [place], [address] Comprehensive metabolic 2000 panel 7.7 g/dL Normal 6.4-8.2 [facility] Work Phone: Comment on above: [facility] [address] [place], [address] Comprehensive metabolic 2000 panel 4.1 g/dL Normal 3.4-5.0 [facility] Work Phone: Comment on above: [facility] [address] [place], [place], [phone] Comprehensive metabolic 2000 panel 65 mL/min Normal Comprehensive [facility] Work Phone: Comment on above: Non- GFR Calc [facility] [address] [place], [place], [phone] Comprehensive metabolic 2000 panel 0.93 mg/dL Normal 0.55-1.02 [facility] Work Phone: Comment on above: The validity of the calculated GFR AND GFRAA in patients over70 years has not been determined. Clinical correlation isessential. [facility] [address] [place], [place], [phone] Comprehensive metabolic 2000 panel 3.6 g/dL Abnormal 2.3-3.5 [facility] Work Phone: Comment on above: [facility] [address] [place], [place], [phone] Comprehensive metabolic 2000 panel 101 mg/dL Normal 70-110 [facility] Work Phone: Comment on above: [facility] [address] [place], [place], [phone] Office Visiton 04-13-2016 Protein mass conc Done [facility] Work Phone: Tobacco smoking status NHIS Never smoker [facility] Work Phone: CBC W/Diff, AutomatedOrdered By: Truckman on 03-15-2016 Absolute Lymph 1.57 {X10_3/ul} Normal 0.83-4.51 Compr ehensive Internal Medicine Work Phone: Absolute Neut 3.0 {X10_3/uL} Normal 2.0-7.7 Compreh ensive Internal Medicine Work Phone: Comment on above: [facility] [address] [place], [place], [phone] Basophils/100 WBC (Bld) 0.7 % Normal 0-1 C omprehensive Internal Medicine Work Phone: Comment on above: [facility] [address] [place], [address] Basophils/100 WBC Auto (Bld) 0.7 % Normal 0-1 [facility] Work Phone: Eosinophils/100 WBC (Bld) 3.8 % Normal 0-5 [facility] Work Phone: Comment on above: [place] [address] [place], [address] Eosinophils/100 WBC Auto (Bld) 3.8 % Normal 0-5 [facility] Work Phone: Erythrocyte distribution width Auto Ratio (RBC) 12.8 % Normal 11.6-14.6 [facility] Work Phone: Erythrocyte distribution width Ratio (RBC) 12.8 % Normal 11.6-14.6 [facility] Work Phone: Comment on above: [place] [address] [place], [address] Hematocrit Auto Volume Fraction (Bld) 38.7 % Normal 37-47 [facility] Work Phone: Hematocrit Volume Fraction (Bld) 38.7 % Normal 37-47 [facility] Work Phone: Comment on above: [place] [address] [place], [address] Hemoglobin mass conc (Bld) 13.0 g/dL Normal 12.0-15.0 [facility] Work Phone: Comment on above: [place] [address] [place], [address] IM GRAN % 0.200 % Normal 0.0-0.9 [facility] Work Phone: Comment on above: IG% - Immature Granu locytes (promyelocytes, myelocytes andmetamyelocytes) > 1% indicates that a LEFT SHIFT is Present. [facility] [address] [place], [address] Lymphocytes #/vol (Bld) 1.57 {X10_3/ul} Normal 0.83-4. 51 [facility] Work Phone: Comment on above: [facility] [address] [place], [address] Lymphocytes/100 WBC (Bld) 28.5 % Normal 19-41 [facility] Work Phone: Comment on above: [facility] [address] [place], [address] Lymphocytes/100 WBC Auto (Bld) 28.5 % Normal 19-41 [facility] Work Phone: MCH Auto Entitic mass (RBC) 29.9 pg Normal 27.0-32.0 [facility] Work Phone: MCH Entitic mass (RBC) 29.9 pg Normal 27.0-32.0 [facility] Internal Medicine Work Phone: Comment on above: [facility] [address] [place], [address] MCHC Auto mass conc (RBC) 33.6 {g/gl} Normal 32-36 [facility] Work Phone: MCHC mass conc (RBC) 33.6 {g/gl} Normal 32-36 [facility] Internal Medicine Work Phone: Comment on above: [facility] [address] [place], [address] MCV Auto Entitic volume (RBC) 89.0 fL Normal 81-99 [facility] Work Phone: MCV Entitic volume (RBC) 89.0 fL Normal 81-99 [facility] Work Phone: Comment on above: [facility] [address] [place], [address] Monocytes/100 WBC Auto (Bld) 12.5 % Abnormal 0-10 [facility] Work Phone: Comment on above: [facility] [address] [place], [address] Neutrophils/100 WBC (Bld) 54.3 % Normal 47-70 [facility] Work Phone: Comment on above: [facility] [address] [place], [address] Neutrophils/100 WBC Auto (Bld) 54.3 % Normal 47-70 [facility] Work Phone: Platelet mean volume Auto Entitic volume (Bld) 9.1 fL Normal 6.2-12.0 [facility] Work Phone: Platelet mean volume Entitic volume (Bld) 9.1 fL Normal 6.2-12.0 Comprehensi ve Internal Medicine Work Phone: Comment on above: [facility] [address] [place], [address] Platelets #/vol (Bld) 250 10*3/uL Normal 150-450 Co mprehensive Internal Medicine Work Phone: Comment on above: [facility] [address] [place], [address] Platelets Auto #/vol (Bld) 250 10*3/uL Normal 150-450 [facility] Work Phone: RBC #/vol (Bld) 4.35 {M/mm3} Normal 4.2-5.4 Compreh ensive Internal Medicine Work Phone: Comment on above: [facility] [address] [place], [address] RBC Auto #/vol (Bld) 4.35 {M/mm3} Normal 4.2-5.4 Co mprehensive [facility] Work Phone: RDW SD 41.0 fL Normal 35.1-43.9 [facility] Work Phone: Comment on above: [facility] spital [address] [place], [place], [phone] WBC #/vol (Bld) 5.5 10*3/uL Normal 4.4-11.0 Comprehe nsive Internal Medicine Work Phone: Comment on above: [facility] [address] [place], [place], [phone] WBC Auto #/vol (Bld) 5.5 10*3/uL Normal 4.4-11.0 Com prehensive Internal Medicine Work Phone: Comprehensive Metabolic Prof ilOrdered By: Truckman on 03-15-2016 Comprehensive metabolic 2000 panel 15 mg/dL Normal 7-18 [facility] Work Phone: Comment on above: [facility] [address] [place], [place], [phone] Comprehensive metabolic 2000 panel 8 1 Normal 5-15 [facility] Work Phone: Comment on above: [facility] [address] [place], [place], [phone] Comprehensive metabolic 2000 panel 27.0 mmol/L Normal 21.0-32.0 [facility] Work Phone: Comment on above: [facility] [address] [place], [place], [phone] Comprehensive metabolic 2000 panel 105 mmol/L Normal 98-107 [facility] Work Phone: Comment on above: [facility] [address] [place], [place], [phone] Comprehensive metabolic 2000 panel 3.9 mmol/L Normal 3.5-5.1 [facility] Work Phone: Comment on above: [facility] [address] [place], [place], [phone] Comprehensive metabolic 2000 panel 140 mmol/L Normal 136-145 [facility] Work Phone: Comment on above: [facility] spital [address] [place], [place], [address] Comprehensive metabolic 2000 panel 1.20 mg/dL Abnormal 0.20-1.00 [facility] Work Phone: Comment on above: [facility] sp[facility] [address] [place], [address] Comprehensive metabolic 2000 panel 21 U/L Normal 12-78 [facility] Work Phone: Comment on above: [facility] [address] [place], [address] Comprehensive metabolic 2000 panel 72 U/L Normal 50-136 [facility] Work Phone: Comment on above: [facility] [address] [place], [address] Comprehensive metabolic 2000 panel 98 mg/dL Normal 70-110 [facility] Work Phone: Comment on above: [facility] [address] [place], [address] Comprehensive metabolic 2000 panel 8.4 mg/dL Abnormal 8.5-10.1 [facility] Work Phone: Comment on above: [facility] [address] [place], [address] Comprehensive metabolic 2000 panel 1.2 {RATIO} Normal 0.9-2.4 [facility] Work Phone: Comment on above: [facility] [address] [place], [address] Comprehensive metabolic 2000 panel 3.1 g/dL Normal 2.3-3.5 [facility] Work Phone: Comment on above: [facility] [address] [place], [address] Comprehensive metabolic 2000 panel 3.8 g/dL Normal 3.4-5.0 [facility] Work Phone: Comment on above: [facility] [address] [place], [place], [phone] Comprehensive metabolic 2000 panel 6.9 g/dL Normal 6.4-8.2 [facility] Work Phone: Comment on above: [facility] [address] [place], [place], [phone] Comprehensive metabolic 2000 panel 18.5 {RATIO} Normal 10-20 [facility] Work Phone: Comment on above: [facility] [address] [place], [place], [phone] Comprehensive metabolic 2000 panel 92 mL/min Normal [facility] Work Phone: Comment on above: GFR Calc [facility] [address] [place], [place], [phone] Comprehensive metabolic 2000 panel 76 mL/min Normal [facility] Work Phone: Comment on above: Non- GFR Calc [facility] [address] [place], [place], [phone] Comprehensive metabolic 2000 panel 0.81 mg/dL Normal 0.55-1.20 [facility] Work Phone: Comment on above: The validity of the calculated GFR AND GFRAA in patients over70 years has not been determined. Clinical correlation isessential. [facility] [address] [place], [place], [phone] Comprehensive metabolic 2000 panel 18 U/L Normal 15-37 [facility] Work Phone: Comment on above: [facility] [address] [place], [place], [phone] Microscopic ExaminationOrder ed By: Truckman on 01-21-2016 Bacteria LM.HPF #/area (Urine sed) Few Normal [facility] Work Phone: Comment on above: PATIENT NOT FASTINGP ERFORMED BY: CB [facility] Izvnpb7342 [facility] [place] [id number] Epithelial cells LM.HPF #/area (Urine sed) 0-10 Normal 0 - 10 [facility] Work Phone: Comment on above: PATIENT NOT FASTINGP ERFORMED BY: OLIVIA [facility] Nxtcsz[address] RoadDublin [place] [id number] Mucus LM Ql (Urine sed) Present Normal C omprehensive Internal Medicine Work Phone: Mucus Ql (Urine sed) Present Normal Comp rehensive Internal Medicine Work Phone: Comment on above: PATIENT NOT FASTINGP ERFORMED BY: OLIVIA [facility] Gsnjrt2216 [address] RoadYad[facility] Hospitalin [place] [id number] RBC LM.HPF #/area (Urine sed) 3-10 Abnormal 0 - 2 [facility] Work Phone: Comment on above: PATIENT NOT FASTINGP ERFORMED BY: OLIVIA [facility] [address] [facility] [place] [id number] WBC LM.HPF #/area (Urine sed) 6-10 Abnormal 0 - 5 [facility] Work Phone: Comment on above: PATIENT NOT FASTINGP ERFORMED BY: OLIVIA [facility] [address] [facility] [place] [id number] URINALYSIS, W/ MICRO ([id number]) Ordered By: Truckman on 01-21-2016 Appearance Nom (U) Clear Normal Compre hensive Internal Medicine Work Phone: Comment on above: PATIENT NOT FASTINGP ERFORMED BY: OLIVIA [facility] [address] [facility] [place] [id number] Information: [id number] Bilirubin Ql (U) Negative Normal Comprehe nsive Internal Medicine Work Phone: Comment on above: PATIENT NOT FASTINGP ERFORMED BY: OLIVIA [facility] [address] [facility] [place] [id number] Information: [id number] Bilirubin Ql (U) Negative Normal Comprehe nsive Internal Medicine; [facility] Work Phone: Comment on above: PATIENT NOT FASTINGP ERFORMED BY: CB [facility] Zdcaan8543 [address] RoadYadkin [facility] Hospitalin [place] [id number] Information: [id number] Color Nom (U) Yellow Normal Comprehensi ve Internal Medicine Work Phone: Comment on above: PATIENT NOT FASTINGP ERFORMED BY: OLIVIA EdmarBisi PérezSceiyu0677 [address] RoadAtrium Health Providence [id number] Information: [id number] Glucose Ql (U) Negative Normal Comprehens maria dolores [facility] Medicine Work Phone: Comment on above: PATIENT NOT FASTINGP ERFORMED BY: OLIVIA EdmarBisi PérezXmslbc3960 [address] RoadYadkin Valley Community Hospitalin [place] [id number] Information: [id number] Glucose Ql (U) Negative Normal Comprehens maria dolores [facility]; [facility] Work Phone: Comment on above: PATIENT NOT FASTINGP ERFORMED BY: OLIVIA Pérezlin6370 [address]ater RoadAtrium Health [facility] [id number] Information: [id number] Hemoglobin Ql (U) 1+ Abnormal Compreh ensive Internal Medicine Work Phone: Comment on above: PATIENT NOT FASTINGP ERFORMED BY: OLIVIA Pérezlin6370 [address] RoadAtrium Health [facility] [id number] Information: [id number] Hemoglobin Test strip Ql (U) 1+ Abnormal [facility] Work Phone: Ketones Ql (U) Negative Normal Comprehens maria dolores [facility] Work Phone: Comment on above: PATIENT NOT FASTINGP ERFORMED BY: OLIVIA Espinal Bbxfkw2997 [address] RoadAtrium Health [facility] [id number] Information: [id number] Ketones Ql (U) Negative Normal Comprehens maria dolores [facility]; [facility] Work Phone: Comment on above: PATIENT NOT FASTINGP ERFORMED BY: OLIVIA EdmarBisi PérezPwfloj3308 [address] RoadAtrium Health Providence [id number] Information: [id number] Leukocyte esterase Test strip Ql (U) Trace Abnormal [facility] Work Phone: Comment on above: PATIENT NOT FASTINGP ERFORMED BY: OLIVIA Pérezlin6370 [address] RoadDublin [place] [id number] Information: [id number] Microscopic observation LM Nom (Urine sed) See below: Normal [facility] Work Phone: Comment on above: Microscopic was don cated and was performed. PATIENT NOT FASTINGP ERFORMED BY: OLIVIA [facility] Afqugf6985 [address] RoadDublin [place] [id number] Information: [id number] Nitrite Ql (U) Negative Normal Comprehens maria dolores [facility] Work Phone: Comment on above: PATIENT NOT FASTINGP ERFORMED BY: OLIVIA [facility] Ceakwn75[address] RoadDublin [place] [id number] Information: [id number] Nitrite Ql (U) Negative Normal Comprehens maria dolores [facility]; [facility] Work Phone: Comment on above: PATIENT NOT FASTINGP ERFORMED BY: OLIVIA Teddyangela PérezOsmhkc6626 [address] RoadDublin [place] [id number] Information: [id number] Nitrite Test strip Ql (U) Negative Normal [facility] Work Phone: pH (U) 7.0 [pH] Normal 5.0-7.5 [facility] Work Phone: Comment on above: PATIENT NOT FASTINGP ERFORMED BY: OLIVIA Teddyangela PérezPpojvd8003 [address] RoadDublin [place] [id number] Information: [id number] pH Test strip (U) 7.0 [pH] Normal 5.0-7.5 Compreh ensive Internal Medicine Work Phone: Protein Ql (U) Negative Normal Comprehens maria dolores [facility] Work Phone: Comment on above: PATIENT NOT FASTINGP ERFORMED BY: OLIVIA [facility] Bfltpt6299 [address] RoadDublin [place] [id number] Information: [id number] Protein Ql (U) Negative Normal Comprehens maria dolores [facility]; [facility] Work Phone: Comment on above: PATIENT NOT FASTINGP ERFORMED BY: OLIVIA [facility] Duivvb67[address] RoadDublin [place] [id number] Information: [id number] Protein Test strip Ql (U) Negative Normal [facility] Work Phone: Specific gravity Relative Density (U) 1.021 1 Normal 1.005-1.03 0 [facility] Work Phone: Comment on above: PATIENT NOT FASTINGP ERFORMED BY: [facility] [facility] [id number] Information: [id number] Urobilinogen (U) [Mass/Vol] 1.0 mg/dL Normal 0.2-1.0 [facility]; [facility] Work Phone: Comment on above: PATIENT NOT FASTINGP ERFORMED BY: [facility]6[address] [facility] [id number] Information: [id number] Urobilinogen Test strip mass conc (U) 1.0 mg/dL Normal 0.2-1.0 [facility] Work Phone: Comment on above: PATIENT NOT FASTINGP ERFORMED BY: [place] [address] [facility] [id number] Information: [id number] CBC W/Diff, AutomatedOrdered By: Truckman on 11-27-2015 Absolute Lymph 1.81 {X10_3/ul} Normal 0.83-4.51 Compr ehensive Internal Medicine Work Phone: Absolute Neut 3.2 {X10_3/uL} Normal 2.0-7.7 Compreh ensive Internal Medicine Work Phone: Comment on above: ORDERED CMP CBCDDRSERGE ORDERED VITD LIPID CMP CBCD [facility] [address] [place], [id number] Basophils/100 WBC (Bld) 0.3 % Normal 0-1 C omprehensive Internal Medicine Work Phone: Comment on above: ORDERED CMP CBCDDRSERGE ORDERED VITD LIPID CMP CBCD [facility] [address] [place], [address] Basophils/100 WBC Auto (Bld) 0.3 % Normal 0-1 [facility] Work Phone: Eosinophils/100 WBC (Bld) 1.6 % Normal 0-5 [facility] Work Phone: Comment on above: ORDERED CMP CBCDDRSERGE ORDERED VITD LIPID CMP CBCD [facility] [address] [place], [address] Eosinophils/100 WBC Auto (Bld) 1.6 % Normal 0-5 [facility] Work Phone: Erythrocyte distribution width Auto Ratio (RBC) 12.7 % Normal 11.6-14.6 [facility] Work Phone: Erythrocyte distribution width Ratio (RBC) 12.7 % Normal 11.6-14.6 [facility] Work Phone: Comment on above: ORDERED CMP CBCDDRSERGE ORDERED VITD LIPID CMP CBCD [facility] [address] [place], [address] Hematocrit Auto Volume Fraction (Bld) 43.1 % Normal 37-47 [facility] Work Phone: Hematocrit Volume Fraction (Bld) 43.1 % Normal 37-47 [facility] Work Phone: Comment on above: ORDERED CMP CBCDDRSERGE ORDERED VITD LIPID CMP CBCD [facility] [address] [place], [address] Hemoglobin mass conc (Bld) 14.2 g/dL Normal 12.0-15.0 [facility] Work Phone: Comment on above: ORDERED CMP CBCDDRSERGE ORDERED VITD LIPID CMP CBCD [facility] [address] [place], [place], [id number] IM GRAN % 0.200 % Normal 0.0-0.9 [facility] Work Phone: Comment on above: IG% - Immature Granu locytes (promyelocytes, myelocytes andmetamyelocytes) > 1% indicates that a LEFT SHIFT is Present. ORDERED CMP CBCDDR.BENITA ORDERED VITD LIPID CMP CBCD [facility] [address] [place], [address] Lymphocytes #/vol (Bld) 1.81 {X10_3/ul} Normal 0.83-4. 51 [facility] Work Phone: Comment on above: ORDERED CMP CBCDDR.BENITA ORDERED VITD LIPID CMP CBCD [facility] [address] [place], [address] Lymphocytes/100 WBC (Bld) 31.2 % Normal 19-41 [facility] Work Phone: Comment on above: ORDERED CMP CBCDDR.BENITA ORDERED VITD LIPID CMP CBCD [facility] [address] [place], [address] Lymphocytes/100 WBC Auto (Bld) 31.2 % Normal 19-41 [facility] Work Phone: MCH Auto Entitic mass (RBC) 29.9 pg Normal 27.0-32.0 [facility] Work Phone: MCH Entitic mass (RBC) 29.9 pg Normal 27.0-32.0 [facility] Internal Medicine Work Phone: Comment on above: ORDERED CMP CBCDDR.BENITA ORDERED VITD LIPID CMP CBCD [facility] [address] [place], [address] MCHC Auto mass conc (RBC) 32.9 {g/gl} Normal 32-36 [facility] Work Phone: MCHC mass conc (RBC) 32.9 {g/gl} Normal 32-36 Com prehensive Internal Medicine Work Phone: Comment on above: ORDERED CMP CBCDDR.BENITA ORDERED VITD LIPID CMP CBCD [facility] [address] [place], [address] MCV Auto Entitic volume (RBC) 90.7 fL Normal 81-99 [facility] Work Phone: MCV Entitic volume (RBC) 90.7 fL Normal 81-99 [facility] Work Phone: Comment on above: ORDERED CMP CBCDDR.BENITA ORDERED VITD LIPID CMP CBCD [facility] [address] [place], [address] Monocytes/100 WBC Auto (Bld) 11.7 % Abnormal 0-10 [facility] Work Phone: Comment on above: ORDERED CMP CBCDDR.BENITA ORDERED VITD LIPID CMP CBCD [facility] [address] [place], [address] Neutrophils/100 WBC (Bld) 55.0 % Normal 47-70 [facility] Work Phone: Comment on above: ORDERED CMP CBCDDR.BENITA ORDERED VITD LIPID CMP CBCD [facility] [address] [place], [address] Neutrophils/100 WBC Auto (Bld) 55.0 % Normal 47-70 [facility] Work Phone: Platelet mean volume Auto Entitic volume (Bld) 8.9 fL Normal 6.2-12.0 [facility] Work Phone: Platelet mean volume Entitic volume (Bld) 8.9 fL Normal 6.2-12.0 Comprehensi ve Internal Medicine Work Phone: Comment on above: ORDERED CMP CBCDDR.BENITA ORDERED VITD LIPID CMP CBCD [facility] [address] [place], [address] Platelets #/vol (Bld) 228 10*3/uL Normal 150-450 [facility] Work Phone: Comment on above: ORDERED CMP CBCDDRSERGE ORDERED VITD LIPID CMP CBCD [facility] [address] [place], [address] Platelets Auto #/vol (Bld) 228 10*3/uL Normal 150-450 [facility] Work Phone: RBC #/vol (Bld) 4.75 {M/mm3} Normal 4.2-5.4 Compreh ensive Internal Medicine Work Phone: Comment on above: ORDERED CMP CBCDDR.BENITA ORDERED VITD LIPID CMP CBCD [facility] [address] [place], [address] RBC Auto #/vol (Bld) 4.75 {M/mm3} Normal 4.2-5.4 [facility] Work Phone: RDW SD 41.8 fL Normal 35.1-43.9 [facility] Work Phone: Comment on above: ORDERED CMP CBCDDR.BENITA ORDERED VITD LIPID CMP CBCD [facility] [address] [place], [address] WBC #/vol (Bld) 5.8 10*3/uL Normal 4.4-11.0 Comprehe nsive Internal Medicine Work Phone: Comment on above: ORDERED CMP CBCDDR.BENITA ORDERED VITD LIPID CMP CBCD [facility] [address] [place], [address] WBC Auto #/vol (Bld) 5.8 10*3/uL Normal 4.4-11.0 [facility] prehensive Internal Medicine Work Phone: Comprehensive Metabolic Prof ilOrdered By: Truckman on 11-27-2015 Comprehensive metabolic 2000 panel 93 mg/dL Normal 70-110 [facility] Work Phone: Comment on above: ORDERED CMP CBCDDR.BENITA ORDERED VITD LIPID CMP CBCD [facility] [address] [place], [place], [address] Comprehensive metabolic 2000 panel 10 mg/dL Normal 7-18 [facility] Work Phone: Comment on above: ORDERED CMP CBCDDR.BENITA ORDERED VITD LIPID CMP CBCD [facility] [address] [place], [place], [address] Comprehensive metabolic 2000 panel 141 mmol/L Normal 136-145 [facility] Work Phone: Comment on above: ORDERED CMP CBCDDR.BENITA ORDERED VITD LIPID CMP CBCD [facility] [address] [place], [place], [address] Comprehensive metabolic 2000 panel 5 1 Normal 5-15 [facility] Work Phone: Comment on above: ORDERED CMP CBCDDR.BENITA ORDERED VITD LIPID CMP CBCD [facility] [address] [place], [place], [address] Comprehensive metabolic 2000 panel 0.86 mg/dL Normal 0.55-1.20 [facility] Work Phone: Comment on above: The validity of the calculated GFR AND GFRAA in patients over70 years has not been determined. Clinical correlation isessential. ORDERED CMP CBCDDR.BENITA ORDERED VITD LIPID CMP CBCD [facility] [address] [place], [place], [address] Comprehensive metabolic 2000 panel 71 mL/min Normal [facility] Work Phone: Comment on above: Non- GFR Calc ORDERED CMP CBCDDR.BENITA ORDERED VITD LIPID CMP CBCD [facility] [address] [place], [place], [address] Comprehensive metabolic 2000 panel 28.0 mmol/L Normal 21.0-32.0 [facility] Work Phone: Comment on above: ORDERED CMP CBCDDR.BEINTA ORDERED VITD LIPID CMP CBCD [facility] [address] [place], [place], [address] Comprehensive metabolic 2000 panel 108 mmol/L Abnormal 98-107 [facility] Work Phone: Comment on above: ORDERED CMP CBCDDR.BENITA ORDERED VITD LIPID CMP CBCD [facility] [address] [place], [place], [address] Comprehensive metabolic 2000 panel 3.8 mmol/L Normal 3.5-5.1 [facility] Work Phone: Comment on above: ORDERED CMP CBCDDR.BENITA ORDERED VITD LIPID CMP CBCD [facility] [address] [place], [place], [address] Comprehensive metabolic 2000 panel 86 mL/min Normal [facility] Work Phone: Comment on above: GFR Calc ORDERED CMP CBCDDR.BENITA ORDERED VITD LIPID CMP CBCD [facility] [address] [place], [place], [address] Comprehensive metabolic 2000 panel 1.10 mg/dL Abnormal 0.20-1.00 [facility] Work Phone: Comment on above: ORDERED CMP CBCDDR.BENITA ORDERED VITD LIPID CMP CBCD [facility] [address] [place], [place], [address] Comprehensive metabolic 2000 panel 23 U/L Normal 12-78 [facility] Work Phone: Comment on above: ORDERED CMP CBCDDR.BENITA ORDERED VITD LIPID CMP CBCD [facility] [address] [place], [place], [address] Comprehensive metabolic 2000 panel 82 U/L Normal 50-136 [facility] Work Phone: Comment on above: ORDERED CMP CBCDDR.BENITA ORDERED VITD LIPID CMP CBCD [facility] [address] [place], [place], [address] Comprehensive metabolic 2000 panel 18 U/L Normal 15-37 [facility] Work Phone: Comment on above: ORDERED CMP CBCDDRSERGE ORDERED VITD LIPID CMP CBCD [facility] [address] [place], [place], [address] Comprehensive metabolic 2000 panel 8.6 mg/dL Normal 8.5-10.1 [facility] Work Phone: Comment on above: ORDERED CMP CBCDDR.BENITA ORDERED VITD LIPID CMP CBCD [facility] [address] [place], [place], [address] Comprehensive metabolic 2000 panel 1.1 {RATIO} Normal 0.9-2.4 [facility] Work Phone: Comment on above: ORDERED CMP CBCDDRSERGE ORDERED VITD LIPID CMP CBCD [facility] [address] [place], [place], [id number] Comprehensive metabolic 2000 panel 3.6 g/dL Abnormal 2.3-3.5 [facility] Work Phone: Comment on above: ORDERED CMP CBCDDR.BENITA ORDERED VITD LIPID CMP CBCD [facility] [address] [place], [place], [address] Comprehensive metabolic 2000 panel 11.6 {RATIO} Normal 10-20 [facility] Work Phone: Comment on above: ORDERED CMP CBCDDR.BENITA ORDERED VITD LIPID CMP CBCD [facility] [address] [place], [place], [address] Comprehensive metabolic 2000 panel 7.5 g/dL Normal 6.4-8.2 [facility] Work Phone: Comment on above: ORDERED CMP CBCDDR.BENITA ORDERED VITD LIPID CMP CBCD [facility] [address] [place], [place], [address] Comprehensive metabolic 2000 panel 3.9 g/dL Normal 3.4-5.0 [facility] Work Phone: Comment on above: ORDERED CMP CBCDDR.BENITA ORDERED VITD LIPID CMP CBCD [facility] [address] [place], [address] Lipid ProfileOrdered By: Matthew tem Exhaust Machine Operator on 11-27-2015 Cholesterol in HDL mass conc 64 mg/dL Normal [facility] Work Phone: Comment on above: Reference Range HDL <40 mg/dL Low HDL Cholesterol HDL >or= 60 mg/dL High HDL Cholesterol ORDERED CMP CBCDDR.BENITA ORDERED VITD LIPID CMP CBCD [facility] [address] [place], [place], [address] Cholesterol in LDL mass conc 118 mg/dL Normal 0-130 [facility] Work Phone: Cholesterol in LDL mass conc 118 mg/dL Normal 0-130 [facility] Work Phone: Comment on above: ORDERED CMP CBCDDR.BENITA ORDERED VITD LIPID CMP CBCD [facility] [address] [place], [place], [address] Cholesterol in VLDL mass conc 12 mg/dL Normal 5-40 [facility] Work Phone: Cholesterol mass conc 194 mg/dL Normal Com prehensive Internal Medicine Work Phone: Comment on above: <200 mg/dL Desirable 200-240 mg/dL Borderline >240 mg/dL High Risk ORDERED CMP CBCDDRSERGE ORDERED VITD LIPID CMP CBCD [facility] [address] [place], [place], [address] Triglyceride mass conc 62 mg/dL Normal Co mprehensive Internal Medicine Work Phone: Comment on above: Serum Triglycerides Reference Interval Normal <150 mg/dL Borderline high 150 - 199 mg/dL High 200 - 499 mg/dL Very High > or = 500 mg/dL ORDERED CMP CBCDDRSERGE ORDERED VITD LIPID CMP CBCD [facility] [address] [place], [place], [id number] Lipid Profile 12 mg/dL Normal 5-40 Comprehensi ve Internal Medicine Work Phone: Comment on above: ORDERED CMP CBCDDRSERGE ORDERED VITD LIPID CMP CBCD [facility] [address] [place], [place], [id number] MicroalbOrdered By: Farzad nath on 11-27-2015 Creatinine mass conc 9.4 {mg/g_CRE} Normal [facility] Medicine Work Phone: Comment on above: ORDERED CMP CBCDDRSERGE ORDERED VITD LIPID CMP CBCD [facility] [address] [place], [place], [phone] Creatinine mass conc 129.00 mg/dL Normal Co mprehensive Internal Medicine Work Phone: Comment on above: ORDERED CMP CBCDDR.BENITA ORDERED VITD LIPID CMP CBCD UA [facility] [address] [place], [place], [phone] MICROALBUMIN,UR 12.1 mg/L Normal Comprehen sive Internal Medicine Work Phone: UR CREAT 129.00 mg/dL Normal Comprehensiv e Internal Medicine Work Phone: Microalb 12.1 mg/L Normal [facility] Medicine Work Phone: Comment on above: ORDERED CMP CBCDDR.BENITA ORDERED VITD LIPID CMP CBCD [facility] [address] [place], [address] Thyroid Stim Hormone (TSH)Or dered By: Truckman on 11-27-2015 Thyrotropin Qn 2.47 {uIU/mL} Normal 0.358-3.74 Compreh ensive Internal Medicine Work Phone: Comment on above: ORDERED CMP CBCDDR.BENITA ORDERED VITD LIPID CMP CBCD [facility] [address] [place], [place], [phone] Urinalysis, Routine (Dipstic k)Ordered By: Truckman on 11-27-2015 CLARITY Clear Normal [facility] Medicine Work Phone: Clarity Nom (U) Clear Normal Com[facility]hen [facility] Work Phone: Comment on above: ORDERED CMP CBCDDR.BENITA ORDERED VITD LIPID CMP CBCD [facility] TSHHow was Urine Obtained? CLEAN [facility] [address] [place], [place], [phone] COLOR Yellow Normal [facility] Medicine Work Phone: Color Nom (U) Yellow Normal Comprehensi ve Internal Medicine Work Phone: Comment on above: ORDERED CMP CBCDDR.BENITA ORDERED VITD LIPID CMP CBCD UA MIACRE TSHHow was Urine Obtained? CLEAN [facility] [address] [place], [place], [id number] GLUCOSE, UR Normal Normal [facility] Work Phone: LEUK ESTERASE 25 /ul Abnormal Comprehensi ve Internal Medicine Work Phone: NITRITE UR Negative Normal [facility] Work Phone: OCCULT BLOOD-UR 150 /ul Abnormal Comprehen sive Internal Medicine Work Phone: pH UR 6.0 1 Normal 5.0 - 8.0 [facility] Work Phone: SP.GR. DIPSTX 1.015 1 Normal 1.002-1.03 0 [facility] Work Phone: Urinalysis, Routine (Dipstick) 1.015 1 Normal 1.002-1.03 0 [facility] Medicine Work Phone: Comment on above: ORDERED CMP CBCDDRSERGE ORDERED VITD LIPID CMP CBCD UA MIACRE TSHHow was Urine Obtained? [facility] [address] [place], [place], [phone] Urinalysis, Routine (Dipstick) Negative Normal [facility] Medicine Work Phone: Comment on above: ORDERED CMP CBCDDRSERGE ORDERED VITD LIPID CMP CBCD UA MIACRE TSHHow was Urine Obtained? [facility] [address] [place], [place], [phone] Urinalysis, Routine (Dipstick) Normal Normal [facility] Work Phone: Comment on above: ORDERED CMP CBCDDRSERGE ORDERED VITD LIPID CMP CBCD UA MIACRE TSHHow was Urine Obtained? [facility] [address] [place], [place], [phone] Urinalysis, Routine (Dipstick) 6.0 1 Normal 5.0 - 8.0 [facility] Work Phone: Comment on above: ORDERED CMP CBCDDR.BENITA ORDERED VITD LIPID CMP CBCD UA MIACRE TSHHow was Urine Obtained? [facility] [address] [place], [place], [phone] Urinalysis, Routine (Dipstick) 150 /ul Abnormal [facility] Work Phone: Comment on above: ORDERED CMP CBCDDR.BENITA ORDERED VITD LIPID CMP CBCD UA MIACRE TSHHow was Urine Obtained? [facility] [address] [place], [place], [phone] Urinalysis, Routine (Dipstick) 25 /ul Abnormal [facility] Work Phone: Comment on above: ORDERED CMP CBCDDR.BENITA ORDERED VITD LIPID CMP CBCD UA MIACRE TSHHow was Urine Obtained? [facility] [address] [place], [place], [phone] Vitamin D,25 HydroxyOrdered By: Truckman on 11-27-2015 Vitamin D 25-OH 55.4 ng/mL Normal [facility] Internal Medicine Work Phone: Comment [...] Toxicity >100 ng/mL (>250 nmol/L) ORDERED CMP CBCDDR.BENITA ORDERED VITD LIPID CMP CBCD UA MIACRE [facility] [address] [place], [place], [address] Basic Metabolic Profile (BMP )Ordered By: Truckman on 08-19-2015 Basic metabolic 2000 panel 9 mg/dL Normal 7-18 [facility] Medicine Work Phone: Comment on above: [facility] [address] [place], [address] Basic metabolic 2000 panel 80.96 ml/min Normal [facility] Medicine Work Phone: Comment on above: [facility] [address] [place], [place], [phone] Basic metabolic 2000 panel 76 mL/min Normal [facility] Medicine Work Phone: Comment on above: GFR Calc [facility] [address] [place], [place], [address] Basic metabolic 2000 panel 63 mL/min Normal [facility] Medicine Work Phone: Comment on above: Non- GFR Calc [facility] [address] [place], [place], [phone] Basic metabolic 2000 panel 0.96 mg/dL Normal 0.55-1.20 [facility] Medicine Work Phone: Comment on above: The validity of the calculated GFR AND GFRAA in patients over70 years has not been determined. Clinical correlation isessential. [facility] [address] [place], [place], [phone] Basic metabolic 2000 panel 9.4 {RATIO} Abnormal 10-20 [facility] Medicine Work Phone: Comment on above: [facility] [address] [place], [place], [phone] Basic metabolic 2000 panel 139 mmol/L Normal 136-145 [facility] Medicine Work Phone: Comment on above: [facility] [address] [place], [address] Basic metabolic 2000 panel 3.8 mmol/L Normal 3.5-5.1 [facility] Work Phone: Comment on above: [facility] [address] [place], [place], [address] Basic metabolic 2000 panel 105 mmol/L Normal 98-107 [facility] Medicine Work Phone: Comment on above: [facility] [address] [place], [place], [address] Basic metabolic 2000 panel 29.0 mmol/L Normal 21.0-32.0 [facility] Work Phone: Comment on above: [facility] [address] [place], [place], [address] Basic metabolic 2000 panel 5 1 Normal 5-15 [facility] Work Phone: Comment on above: [facility] [address] [place], [place], [address] Basic metabolic 2000 panel 100 mg/dL Normal 70-110 [facility] Work Phone: Comment on above: [facility] [address] [place], [place], [phone] Basic metabolic 2000 panel 8.5 mg/dL Normal 8.5-10.1 [facility] Work Phone: Comment on above: [facility] [address] [place], [place], [address] CBC W/Diff, AutomatedOrdered By: Truckman on 08-11-2015 Absolute Lymph 1.38 {X10_3/ul} Normal 0.83-4.51 Compr ehensive Internal Medicine Work Phone: Absolute Neut 2.6 {X10_3/uL} Normal 2.0-7.7 Compreh ensive Internal Medicine Work Phone: Comment on above: [facility] [address] [place], [place], [phone] Basophils/100 WBC (Bld) 0.6 % Normal 0-1 C omprehensive Internal Medicine Work Phone: Comment on above: [facility] [address] [place], [address] Basophils/100 WBC Auto (Bld) 0.6 % Normal 0-1 [facility] Work Phone: Eosinophils/100 WBC (Bld) 2.3 % Normal 0-5 [facility] Work Phone: Comment on above: [facility] [address] [place], [address] Eosinophils/100 WBC Auto (Bld) 2.3 % Normal 0-5 [facility] Work Phone: Erythrocyte distribution width Auto Ratio (RBC) 13.8 % Normal 11.6-14.6 [facility] Work Phone: Erythrocyte distribution width Ratio (RBC) 13.8 % Normal 11.6-14.6 [facility] Work Phone: Comment on above: [place] [address] [place], [place], [phone] Hematocrit Auto Volume Fraction (Bld) 40.9 % Normal 37-47 [facility] Work Phone: Hematocrit Volume Fraction (Bld) 40.9 % Normal 37-47 [facility] Work Phone: Comment on above: [place] [address] [place], [place], [address] Hemoglobin mass conc (Bld) 13.5 g/dL Normal 12.0-15.0 [facility] Work Phone: Comment on above: [facility] [address] [place], [address] IM GRAN % 0.200 % Normal 0.0-0.9 [facility] Work Phone: Comment on above: IG% - Immature Granu locytes (promyelocytes, myelocytes andmetamyelocytes) > 1% indicates that a LEFT SHIFT is Present. [place] [address] [place], [address] Lymphocytes #/vol (Bld) 1.38 {X10_3/ul} Normal 0.83-4. 51 [facility] Work Phone: Comment on above: [facility] [address] [place], [address] Lymphocytes/100 WBC (Bld) 28.6 % Normal 19-41 [facility] Work Phone: Comment on above: [facility] [address] [place], [address] Lymphocytes/100 WBC Auto (Bld) 28.6 % Normal 19-41 [facility] Work Phone: MCH Auto Entitic mass (RBC) 30.8 pg Normal 27.0-32.0 [facility] Work Phone: MCH Entitic mass (RBC) 30.8 pg Normal 27.0-32.0 Co [facility] Internal Medicine Work Phone: Comment on above: [facility] [address] [place], [address] MCHC Auto mass conc (RBC) 33.0 {g/gl} Normal 32-36 [facility] Work Phone: MCHC mass conc (RBC) 33.0 {g/gl} Normal 32-36 [facility] Work Phone: Comment on above: [facility] [address] [place], [address] MCV Auto Entitic volume (RBC) 93.4 fL Normal 81-99 [facility] Work Phone: MCV Entitic volume (RBC) 93.4 fL Normal 81-99 [facility] Work Phone: Comment on above: [facility] [address] [place], [address] Monocytes/100 WBC Auto (Bld) 13.7 % Abnormal 0-10 [facility] Work Phone: Comment on above: [facility] [address] [place], [address] Neutrophils/100 WBC (Bld) 54.6 % Normal 47-70 [facility] Medicine Work Phone: Comment on above: [facility] [address] [place], [address] Neutrophils/100 WBC Auto (Bld) 54.6 % Normal 47-70 [facility] Medicine Work Phone: Platelet mean volume Auto Entitic volume (Bld) 9.1 fL Normal 6.2-12.0 [facility] Work Phone: Platelet mean volume Entitic volume (Bld) 9.1 fL Normal 6.2-12.0 Comprehensi Internal Medicine Work Phone: Comment on above: [facility] [address] [place], [address] Platelets #/vol (Bld) 249 10*3/uL Normal 150-450 [facility] Work Phone: Comment on above: [facility] [address] [place], [address] Platelets Auto #/vol (Bld) 249 10*3/uL Normal 150-450 [facility] Medicine Work Phone: RBC #/vol (Bld) 4.38 {M/mm3} Normal 4.2-5.4 Compreh ensive Internal Medicine Work Phone: Comment on above: [facility] [address] [place], [address] RBC Auto #/vol (Bld) 4.38 {M/mm3} Normal 4.2-5.4 Co mprehensive Internal Medicine Work Phone: RDW SD 46.9 fL Abnormal 35.1-43.9 Comprehensive Internal Medicine Work Phone: Comment on above: [facility] [address] [place], [place], [phone] WBC #/vol (Bld) 4.8 10*3/uL Normal 4.4-11.0 Comprehe [facility] Internal Medicine Work Phone: Comment on above: [facility] [address] [place], [place], [address] WBC Auto #/vol (Bld) 4.8 10*3/uL Normal 4.4-11.0 Com prehensive Internal Medicine Work Phone: Comprehensive Metabolic Prof ilOrdered By: Truckman on 08-11-2015 Comprehensive metabolic 2000 panel 11 mg/dL Normal 7-18 [facility] Medicine Work Phone: Comment on above: [facility] [address] [place], [place], [phone] Comprehensive metabolic 2000 panel 1.1 {RATIO} Normal 0.9-2.4 Comprehensive Internal Medicine Work Phone: Comment on above: [facility] [address] [place], [place], [address] Comprehensive metabolic 2000 panel 17 U/L Normal 15-37 Comprehensive Internal Medicine Work Phone: Comment on above: [facility] [address] [place], [address] Comprehensive metabolic 2000 panel 73 U/L Normal 50-136 Comprehensive Internal Medicine Work Phone: Comment on above: [facility] [address] [place], [place], [address] Comprehensive metabolic 2000 panel 107 mmol/L Normal 98-107 [facility] Internal Medicine Work Phone: Comment on above: [facility] [address] [place], [place], [address] Comprehensive metabolic 2000 panel 3.5 g/dL Normal 2.3-3.5 Comprehensive Internal Medicine Work Phone: Comment on above: [facility] [address] [place], [address] Comprehensive metabolic 2000 panel 3.9 g/dL Normal 3.4-5.0 Comprehensive Internal Medicine Work Phone: Comment on above: [facility] [address] [place], [address] Comprehensive metabolic 2000 panel 7.4 g/dL Normal 6.4-8.2 Comprehensive Internal Medicine Work Phone: Comment on above: [facility] [address] [place], [address] Comprehensive metabolic 2000 panel 12.5 {RATIO} Normal 10-20 Comprehensive Internal Medicine Work Phone: Comment on above: [facility] [address] [place], [address] Comprehensive metabolic 2000 panel 31 U/L Normal 12-78 [facility] Internal Medicine Work Phone: Comment on above: [facility] [address] [place], [address] Comprehensive metabolic 2000 panel 9.0 mg/dL Normal 8.5-10.1 [facility] Internal Medicine Work Phone: Comment on above: [facility] [address] [place], [address] Comprehensive metabolic 2000 panel 0.70 mg/dL Normal 0.20-1.00 Comprehensive Internal Medicine Work Phone: Comment on above: [facility] [address] [place], [address] Comprehensive metabolic 2000 panel 143 mmol/L Normal 136-145 Comprehensive Internal Medicine Work Phone: Comment on above: [facility] [address] [place], [address] Comprehensive metabolic 2000 panel 84 mL/min Normal Comprehensive Internal Medicine Work Phone: Comment on above: GFR Calc [facility] [address] [place], [address] Comprehensive metabolic 2000 panel 69 mL/min Normal Comprehensive Internal Medicine Work Phone: Comment on above: Non- GFR Calc [facility] [address] [place], [address] Comprehensive metabolic 2000 panel 4.0 mmol/L Normal 3.5-5.1 Comprehensive Internal Medicine Work Phone: Comment on above: [facility] [address] [place], [address] Comprehensive metabolic 2000 panel 0.88 mg/dL Normal 0.55-1.20 Comprehensive Internal Medicine Work Phone: Comment on above: The validity of the calculated GFR AND GFRAA in patients over70 years has not been determined. Clinical correlation isessential. [facility] [address] [place], [address] Comprehensive metabolic 2000 panel 100 mg/dL Normal 70-110 Comprehensive Internal Medicine Work Phone: Comment on above: [facility] [address] [place], [address] Comprehensive metabolic 2000 panel 7 1 Normal 5-15 Comprehensive Internal Medicine Work Phone: Comment on above: [facility] [address] [place], [address] Comprehensive metabolic 2000 panel 29.0 mmol/L Normal 21.0-32.0 Comprehensive Internal Medicine Work Phone: Comment on above: [facility] [address] [place], [place], [phone] CALCIFIDIOL ([id number]) VIT D 25 Ordered By: Truckman on 05-04-2015 25-Hydroxyvitamin D2+25-Hydroxyvitamin D3 mass conc 32.0 ng/mL Normal 30.0-100.0 [facility] Internal Medicine Work Phone: Comment on above: Vitamin D deficiency has been defined by the [place] ofMedicine and an Endocrine Society practice guideline as alevel of serum 25-OH vitamin D less than 20 ng/mL (1,2).The Endocrine Society went on to further define vitamin Dinsufficiency as a level between 21 and 29 ng/mL (2).1. IOM ([place] of Medicine). 2010. Dietary reference intakes for calcium and D. [place]: The National Academies Press.2. Andrey MF, [place]ago [place], Cuauhtemoc MOSS, et al. Evaluation, treatment, and prevention of vitamin D deficiency: an Endocrine Society clinical practice guideline. JCEM. 2010; 96(7):1911-30. PATIENT WAS FASTINGP ERFORMED BY: [employer] [place] [id number] LIPID PANEL ([id number])Ordered B y: Truckman on 05-04-2015 Cholesterol in HDL mass conc 61 mg/dL Normal Comprehensive Internal Medicine Work Phone: Comment on above: According to ATP-III Guidelines, HDL-C >59 mg/dL is considered anegative risk factor for CHD. PATIENT WAS FASTINGP ERFORMED BY: [employer] [address] [employer] [place] [id number] Information: [id number] Cholesterol in LDL mass conc 117 mg/dL Abnormal 0-99 Comprehensive Internal Medicine Work Phone: Comment on above: PATIENT WAS FASTINGP ERFORMED BY: [employer] Iimstr9080 [facility] [id number] Information: [id number] Cholesterol in LDL/Cholesterol in HDL mass ratio 1.9 {ratio_units} Normal 0.0-3.2 [facility] Medicine Work Phone: Comment on above: LDL/HDL Ratio Men Wo men 1/2 Avg.Risk 1.0 1.5 Avg.Risk 3.6 3.2 2X Avg.Risk 6.2 5.0 3X Avg.Risk 8.0 6.1 PATIENT WAS FASTINGP ERFORMED BY: [employer] Hfthxw9789 [employer] SystemsYadkin Valley Community Hospitalin [place] [id number] Information: [id number] Cholesterol in VLDL mass conc 14 mg/dL Normal 5-40 Comprehensive Internal Medicine Work Phone: Comment on above: PATIENT WAS FASTINGP ERFORMED BY: [place] [id number] [facility] [id number] Information: [id number] Cholesterol mass conc 192 mg/dL Normal 100-199 Com prehensive Internal Medicine Work Phone: Comment on above: PATIENT WAS FASTINGP ERFORMED BY: [address] [id number] Information: [id number] Triglyceride mass conc 69 mg/dL Normal 0-149 Co mprehensive Internal Medicine Work Phone: Comment on above: PATIENT WAS FASTINGP ERFORMED BY: [address] [id number] Information: [id number] TSH ([id number])Ordered By: Syste m Exhaust Machine Operator on 05-04-2015 Thyrotropin Qn 1.460 {uIU/mL} Normal 0.450-4.50 0 Comprehensive Internal Medicine Work Phone: Comment on above: PATIENT WAS FASTINGP ERFORMED BY: [address] [id number] CBC W/Diff, AutomatedOrdered By: Truckman on 04-27-2015 Absolute Lymph 1.46 {X10_3/ul} Normal 0.83-4.51 Compr ehensive Internal Medicine Work Phone: Absolute Neut 2.1 {X10_3/uL} Normal 2.0-7.7 Compreh ensive Internal Medicine Work Phone: Comment on above: Test performed at:[facility] [address] [place] [address] Basophils/100 WBC (Bld) 0.7 % Normal 0-1 C omprehensive Internal Medicine Work Phone: Comment on above: Test performed at:[facility] [address] [place] [address] Basophils/100 WBC Auto (Bld) 0.7 % Normal 0-1 Comprehensive Internal Medicine Work Phone: Eosinophils/100 WBC (Bld) 3.1 % Normal 0-5 Comprehensive Internal Medicine Work Phone: Comment on above: Test performed at:[facility] [address] [place] [address] Eosinophils/100 WBC Auto (Bld) 3.1 % Normal 0-5 Comprehensive [facility] Medicine Work Phone: Erythrocyte distribution width Auto Ratio (RBC) 12.7 % Normal 11.6-14.6 [facility] Work Phone: Erythrocyte distribution width Ratio (RBC) 12.7 % Normal 11.6-14.6 [facility] Work Phone: Comment on above: Test performed at:[facility] [address] [place] [address] Hematocrit Auto Volume Fraction (Bld) 42.1 % Normal 37-47 [facility] Medicine Work Phone: Hematocrit Volume Fraction (Bld) 42.1 % Normal 37-47 [facility] Work Phone: Comment on above: Test performed at:[facility] [address] [place] [address] Hemoglobin mass conc (Bld) 13.9 g/dL Normal 12.0-15.0 Comprehensive [facility] Medicine Work Phone: Comment on above: Test performed at:[facility] [address] [place] [address] IM GRAN % 0.200 % Normal 0.0-0.9 Comprehensive [facility] Medicine Work Phone: Comment on above: IG% - Immature Granu locytes (promyelocytes, myelocytes andmetamyelocytes) > 1% indicates that a LEFT SHIFT is Present. Test performed at:[facility] [address] [place] [address] Lymphocytes #/vol (Bld) 1.46 {X10_3/ul} Normal 0.83-4. 51 Comprehensive Internal Medicine Work Phone: Comment on above: Test performed at:[facility] [address] [place] [address] Lymphocytes/100 WBC (Bld) 32.5 % Normal 19-41 [facility] Medicine Work Phone: Comment on above: Test performed at:[facility] [address] [place] [address] Lymphocytes/100 WBC Auto (Bld) 32.5 % Normal 19-41 Comprehensive [facility] Medicine Work Phone: MCH Auto Entitic mass (RBC) 29.9 pg Normal 27.0-32.0 [facility] Medicine Work Phone: MCH Entitic mass (RBC) 29.9 pg Normal 27.0-32.0 [facility] Work Phone: Comment on above: Test performed at:[facility] [address] [place] [address] MCHC Auto mass conc (RBC) 33.0 {g/gl} Normal 32-36 Comprehensive Internal Medicine Work Phone: MCHC mass conc (RBC) 33.0 {g/gl} Normal 32-36 [facility] prehensive Internal Medicine Work Phone: Comment on above: Test performed at:[facility] [address] [place] [address] MCV Auto Entitic volume (RBC) 90.5 fL Normal 81-99 [facility] Medicine Work Phone: MCV Entitic volume (RBC) 90.5 fL Normal 81-99 [facility] Medicine Work Phone: Comment on above: Test performed at:[facility] [address] [place] [address] Monocytes/100 WBC Auto (Bld) 17.4 % Abnormal 0-10 [facility] Medicine Work Phone: Comment on above: Test performed at:[facility] [address] [place] [address] Neutrophils/100 WBC (Bld) 46.1 % Abnormal 47-70 [facility] Work Phone: Comment on above: Test performed at:[facility] [address] [place] [address] Neutrophils/100 WBC Auto (Bld) 46.1 % Abnormal 47-70 [facility] Work Phone: Platelet mean volume Auto Entitic volume (Bld) 8.9 fL Normal 6.2-12.0 [facility] Work Phone: Platelet mean volume Entitic volume (Bld) 8.9 fL Normal 6.2-12.0 Comprehensi Internal Medicine Work Phone: Comment on above: [facility] [facility] [address] [place] [address] Platelets #/vol (Bld) 227 10*3/uL Normal 150-450 Co mprehensive Internal Medicine Work Phone: Comment on above: Test performed at:[facility] [address] [place] [address] Platelets Auto #/vol (Bld) 227 10*3/uL Normal 150-450 [facility] Internal Medicine Work Phone: RBC #/vol (Bld) 4.65 {M/mm3} Normal 4.2-5.4 Compreh ensive Internal Medicine Work Phone: Comment on above: Test performed at:[facility] [address] [place] [address] RBC Auto #/vol (Bld) 4.65 {M/mm3} Normal 4.2-5.4 Co [facility]prehensive Internal Medicine Work Phone: RDW SD 41.8 fL Normal 35.1-43.9 [facility] Medicine Work Phone: Comment on above: Test performed at:[facility] [address] [place], [place] [id number] WBC #/vol (Bld) 4.5 10*3/uL Normal 4.4-11.0 [facility] Internal Medicine Work Phone: Comment on above: Test performed at:[facility] [address] [place] [address] WBC Auto #/vol (Bld) 4.5 10*3/uL Normal 4.4-11.0 [facility] prehensive Internal Medicine Work Phone: Comprehensive Metabolic Prof ilOrdered By: Truckman on 04-27-2015 Comprehensive metabolic 2000 panel 11 mg/dL Normal 7-18 Comprehensive Internal Medicine Work Phone: Comment on above: Test performed at:[facility] [address] [place], [place] [id number] Comprehensive metabolic 2000 panel 20 U/L Normal 12-78 Comprehensive Internal Medicine Work Phone: Comment on above: Test performed at:[facility] [address] [place], [place] [id number] Comprehensive metabolic 2000 panel 1.0 {RATIO} Normal 0.9-2.4 Comprehensive Internal Medicine Work Phone: Comment on above: Test performed at:[facility] [address] [place] [address] Comprehensive metabolic 2000 panel 3.5 g/dL Normal 2.3-3.5 Comprehensive Internal Medicine Work Phone: Comment on above: Test performed at:[facility] [address] [place], [place] [id number] Comprehensive metabolic 2000 panel 140 mmol/L Normal 136-145 Comprehensive Internal Medicine Work Phone: Comment on above: Test performed at:[facility] [address] [place] [address] Comprehensive metabolic 2000 panel 3.6 g/dL Normal 3.4-5.0 Comprehensive Internal Medicine Work Phone: Comment on above: Test performed at:[facility] [address] [place] [address] Comprehensive metabolic 2000 panel 7.1 g/dL Normal 6.4-8.2 Comprehensive Internal Medicine Work Phone: Comment on above: Test performed at:[facility] [address] [place] [address] Comprehensive metabolic 2000 panel 12.4 {RATIO} Normal 10-20 Comprehensive Internal Medicine Work Phone: Comment on above: Test performed at:[facility] [address] [place] [address] Comprehensive metabolic 2000 panel 29.0 mmol/L Normal 21.0-32.0 Comprehensive Internal Medicine Work Phone: Comment on above: Test performed at:[facility] [address] [place] [address] Comprehensive metabolic 2000 panel 103 mmol/L Normal 98-107 Comprehensive Internal Medicine Work Phone: Comment on above: Test performed at:[facility] [address] [place] [address] Comprehensive metabolic 2000 panel 0.80 mg/dL Normal 0.20-1.00 Comprehensive Internal Medicine Work Phone: Comment on above: Test performed at:[facility] [address] [place] [address] Comprehensive metabolic 2000 panel 4.0 mmol/L Normal 3.5-5.1 Comprehensive Internal Medicine Work Phone: Comment on above: Test performed at:[facility] [address] [place] [address] Comprehensive metabolic 2000 panel 8.9 mg/dL Normal 8.5-10.1 Comprehensive Internal Medicine Work Phone: Comment on above: Test performed at:[facility] [address] [place] [address] Comprehensive metabolic 2000 panel 17 U/L Normal 15-37 Comprehensive Internal Medicine Work Phone: Comment on above: Test performed at:[facility] [address] [place], [place] [id number] Comprehensive metabolic 2000 panel 0.89 mg/dL Normal 0.55-1.20 Comprehensive Internal Medicine Work Phone: Comment on above: Please note revised CREATININE reference range /22/2015. Test performed at:[facility] [address] [place] [address] Comprehensive metabolic 2000 panel 82 mL/min Normal Comprehensive Internal Medicine Work Phone: Comment on above: Test performed at:[facility] [address] [place] [address] Comprehensive metabolic 2000 panel 75 U/L Normal 50-136 Comprehensive Internal Medicine Work Phone: Comment on above: Test performed at:[facility] [address] [place] [address] Comprehensive metabolic 2000 panel 8 1 Normal 5-15 Comprehensive Internal Medicine Work Phone: Comment on above: Test performed at:[facility] [address] [place] [address] Comprehensive metabolic 2000 panel 68 mL/min Normal Comprehensive Internal Medicine Work Phone: Comment on above: Test performed at:[facility] [address] [place] [address] Comprehensive metabolic 2000 panel 82 mg/dL Normal 70-110 Comprehensive Internal Medicine Work Phone: Comment on above: Test performed at:[facility] [address] [place] [address] CBC W/Diff, AutomatedOrdered By: Truckman on 01-05-2015 Absolute Lymph 1.50 {X10_3/ul} Normal 0.83-4.51 Compr ehensive Internal Medicine Work Phone: Absolute Neut 2.2 {X10_3/uL} Normal 2.0-7.7 Compreh ensive Internal Medicine Work Phone: Comment on above: Test performed at:[facility] [address] [place] [address] Basophils/100 WBC (Bld) 0.9 % Normal 0-1 C omprehensive Internal Medicine Work Phone: Comment on above: Test performed at:[facility] [address] [place] [address] Basophils/100 WBC Auto (Bld) 0.9 % Normal 0-1 Comprehensive Internal Medicine Work Phone: Eosinophils/100 WBC (Bld) 3.6 % Normal 0-5 Comprehensive [facility] Medicine Work Phone: Comment on above: Test performed at:[facility] [address] [place] [address] Eosinophils/100 WBC Auto (Bld) 3.6 % Normal 0-5 [facility] Work Phone: Erythrocyte distribution width Auto Ratio (RBC) 13.4 % Normal 11.6-14.6 [facility] Work Phone: Erythrocyte distribution width Ratio (RBC) 13.4 % Normal 11.6-14.6 [facility] Work Phone: Comment on above: Test performed at:[facility] [address] [place] [address] Hematocrit Auto Volume Fraction (Bld) 40.3 % Normal 37-47 [facility] Work Phone: Hematocrit Volume Fraction (Bld) 40.3 % Normal 37-47 [facility] Work Phone: Comment on above: Test performed at:[facility] [address] [place] [address] Hemoglobin mass conc (Bld) 13.3 g/dL Normal 12.0-15.0 [facility] Work Phone: Comment on above: Test performed at:[facility] [address] [place] [address] IM GRAN % 0.500 % Normal 0.0-0.9 [facility] Work Phone: Comment on above: IG% - Immature Granu locytes (promyelocytes, myelocytes andmetamyelocytes) > 1% indicates that a LEFT SHIFT is Present. Test performed at:[facility] [address] [place] [address] Lymphocytes #/vol (Bld) 1.50 {X10_3/ul} Normal 0.83-4. 51 Comprehensive Internal Medicine Work Phone: Comment on above: Test performed at:[facility] [address] [place] [address] Lymphocytes/100 WBC (Bld) 34.1 % Normal 19-41 Comprehensive Internal Medicine Work Phone: Comment on above: Test performed at:[facility] [address] [place] [address] Lymphocytes/100 WBC Auto (Bld) 34.1 % Normal 19-41 [facility] Work Phone: MCH Auto Entitic mass (RBC) 30.6 pg Normal 27.0-32.0 Comprehensive Internal Medicine Work Phone: MCH Entitic mass (RBC) 30.6 pg Normal 27.0-32.0 [facility] Work Phone: Comment on above: Test performed at:[facility] [address] [place] [address] MCHC Auto mass conc (RBC) 33.0 {g/gl} Normal 32-36 Comprehensive Internal Medicine Work Phone: MCHC mass conc (RBC) 33.0 {g/gl} Normal 32-36 [facility] Internal Medicine Work Phone: Comment on above: Test performed at:[facility] [address] [place] [address] MCV Auto Entitic volume (RBC) 92.6 fL Normal 81-99 Comprehensive Internal Medicine Work Phone: MCV Entitic volume (RBC) 92.6 fL Normal 81-99 [facility] Work Phone: Comment on above: Test performed at:[facility] [address] [place] [address] Monocytes/100 WBC Auto (Bld) 11.4 % Abnormal 0-10 [facility] Work Phone: Comment on above: Test performed at:[facility] [address] [place] [address] Neutrophils/100 WBC (Bld) 49.5 % Normal 47-70 [facility] Medicine Work Phone: Comment on above: Test performed at:[facility] [address] [place] [address] Neutrophils/100 WBC Auto (Bld) 49.5 % Normal 47-70 [facility] Work Phone: Platelet mean volume Auto Entitic volume (Bld) 9.0 fL Normal 6.2-12.0 [facility] Work Phone: Platelet mean volume Entitic volume (Bld) 9.0 fL Normal 6.2-12.0 Comprehensi ve Internal Medicine Work Phone: Comment on above: Test performed at:[facility] [address] [place] [address] Platelets #/vol (Bld) 243 10*3/uL Normal 150-450 Co mprehensive Internal Medicine Work Phone: Comment on above: Test performed at:[facility] [address] [place] [address] Platelets Auto #/vol (Bld) 243 10*3/uL Normal 150-450 Comprehensive Internal Medicine Work Phone: RBC #/vol (Bld) 4.35 {M/mm3} Normal 4.2-5.4 Compreh ensive Internal Medicine Work Phone: Comment on above: Test performed at:[facility] [address] [place] [address] RBC Auto #/vol (Bld) 4.35 {M/mm3} Normal 4.2-5.4 [facility] Internal Medicine Work Phone: RDW SD 45.3 fL Abnormal 35.1-43.9 [facility] Medicine Work Phone: Comment on above: Test performed at:[facility] [address] [place] [address] WBC #/vol (Bld) 4.4 10*3/uL Normal 4.4-11.0 Comprehe nsive Internal Medicine Work Phone: Comment on above: Test performed at:[facility] [address] [place] [address] WBC Auto #/vol (Bld) 4.4 10*3/uL Normal 4.4-11.0 Com prehensive Internal Medicine Work Phone: Comprehensive Metabolic Prof ilOrdered By: Truckman on 01-05-2015 Comprehensive metabolic 2000 panel 78 mL/min Normal Comprehensive Internal Medicine Work Phone: Comment on above: Comments: CTest perf ormed at:[facility] [address] [place] [address] Comprehensive metabolic 2000 panel 1.2 {RATIO} Normal 0.9-2.4 Comprehensive Internal Medicine Work Phone: Comment on above: Comments: CTest perf ormed at:[facility] [address] [place] [address] Comprehensive metabolic 2000 panel 26.0 mmol/L Normal 21.0-32.0 Comprehensive Internal Medicine Work Phone: Comment on above: Comments: CTest perf ormed at:[facility] [address] [place] [address] Comprehensive metabolic 2000 panel 106 mmol/L Normal 98-107 Comprehensive Internal Medicine Work Phone: Comment on above: Comments: CTest perf ormed at:[facility] [address] [place] [address] Comprehensive metabolic 2000 panel 4.1 mmol/L Normal 3.5-5.1 Comprehensive Internal Medicine Work Phone: Comment on above: Comments: CTest perf ormed at:[facility] [address] [place] [address] Comprehensive metabolic 2000 panel 138 mmol/L Normal 136-145 Comprehensive Internal Medicine Work Phone: Comment on above: Comments: CTest perf ormed at:[facility] [address] [place] [address] Comprehensive metabolic 2000 panel 0.90 mg/dL Normal 0.00-4.00 Comprehensive Internal Medicine Work Phone: Comment on above: Comments: CTest perf ormed at:[facility] [address] [place] [address] Comprehensive metabolic 2000 panel 94 mg/dL Normal 70-110 Comprehensive Internal Medicine Work Phone: Comment on above: Comments: CTest perf ormed at:[facility] [address] [place] [address] Comprehensive metabolic 2000 panel 11 mg/dL Normal 7-18 Comprehensive Internal Medicine Work Phone: Comment on above: Comments: CTest perf ormed at:[facility] [address] [place] [address] Comprehensive metabolic 2000 panel 0.8 mg/dL Normal 0.6-1.0 Comprehensive Internal Medicine Work Phone: Comment on above: Comments: CTest perf ormed at:[facility] [address] [place] [address] Comprehensive metabolic 2000 panel 6 1 Normal 5-15 Comprehensive Internal Medicine Work Phone: Comment on above: Comments: CTest perf ormed at:[facility] [address] [place] [address] Comprehensive metabolic 2000 panel 95 mL/min Normal Comprehensive Internal Medicine Work Phone: Comment on above: Comments: CTest perf ormed at:[facility] [address] [place] [address] Comprehensive metabolic 2000 panel 13.8 {RATIO} Normal 10-20 Comprehensive Internal Medicine Work Phone: Comment on above: Comments: CTest perf ormed at:[facility] [address] [place] [address] Comprehensive metabolic 2000 panel 6.9 g/dL Normal 6.4-8.2 Comprehensive Internal Medicine Work Phone: Comment on above: Comments: CTest perf ormed at:[facility] [address] [place], [place] [address] Comprehensive metabolic 2000 panel 3.8 g/dL Normal 3.4-5.0 Comprehensive Internal Medicine Work Phone: Comment on above: Comments: CTest perf ormed at:[facility] [address] [place] [address] Comprehensive metabolic 2000 panel 3.1 g/dL Normal 2.7-4.2 Comprehensive Internal Medicine Work Phone: Comment on above: Comments: CTest perf ormed at:[facility] [address] [place] [address] Comprehensive metabolic 2000 panel 23 U/L Normal 12-78 Comprehensive Internal Medicine Work Phone: Comment on above: Comments: CTest perf ormed at:[facility] [address] [place] [address] Comprehensive metabolic 2000 panel 8.7 mg/dL Normal 8.5-10.1 Comprehensive Internal Medicine Work Phone: Comment on above: Comments: CTest perf ormed at:[facility] [address] [place], [place] [id number] Comprehensive metabolic 2000 panel 18 U/L Normal 15-37 Comprehensive Internal Medicine Work Phone: Comment on above: Comments: CTest perf ormed at:[facility] [address] [place], [place] [id number] Comprehensive metabolic 2000 panel 69 U/L Normal 50-136 Comprehensive Internal Medicine Work Phone: Comment on above: Comments: CTest perf ormed at:[facility] [address] [place] [address] Basic Metabolic Profile (BMP )Ordered By: Truckman on 11-01-2014 Calcium mass conc 8.7 mg/dL Normal 8.5-10.1 Compreh [facility] Internal [facility] Work Phone: Comment on above: Test performed at:[facility] [address] [place] [address] Chloride molar conc 106 mmol/L Normal 98-107 Compr ensive Internal Medicine Work Phone: Comment on above: Test performed at:[facility] [address] [place] [address] CO2 molar conc 27.0 mmol/L Normal 21.0-32.0 [facility] Internal Medicine Work Phone: Comment on above: Test performed at:[facility] [address] [place] [address] Creatinine mass conc 1.1 mg/dL Abnormal 0.6-1.0 [facility] Work Phone: Comment on above: Test performed at:[facility] [address] [place] [address] GFR/1.73 sq M predicted among non-blacks MDRD vol rate/area (S/P/Bld) 54 mL/min/{1.73_m2} Abnormal Comp [facility] Work Phone: Comment on above: Test performed at:[facility] [address] [place], [place] [address] Glucose mass conc 120 mg/dL Abnormal 70-110 Compreh ensive Internal Medicine Work Phone: Comment on above: Fasting Glucose resu lt from 110 to <126 mg/dLsuggests IMPAIRED HOMEOSTASIS per A.D.A. criteria. Test performed at:[facility] [address] [place] [address] Potassium molar conc 3.6 mmol/L Normal 3.5-5.1 Comp rehensive Internal Medicine Work Phone: Comment on above: Test performed at:[facility] [address] [place] [address] Sodium molar conc 140 mmol/L Normal 136-145 Compreh ensive Internal Medicine Work Phone: Comment on above: Test performed at:[facility] [address] [place] [address] Urea nitrogen mass conc 17 mg/dL Normal 7-18 C omprehensive Internal Medicine Work Phone: Comment on above: Test performed at:[facility] [address] [place], [place] [id number] Basic Metabolic Profile (BMP) 65.38 ml/min Normal Comprehensive Internal Medicine Work Phone: Comment on above: Test performed at:[facility] [address] [place] [address] Basic Metabolic Profile (BMP) 7 1 Normal 5-15 Comprehensive Internal Medicine Work Phone: Comment on above: Test performed at:[facility] [address] [place] [address] Basic Metabolic Profile (BMP) 15.5 {RATIO} Normal 10-20 Comprehensive Internal Medicine Work Phone: Comment on above: Test performed at:[facility] [address] [place] [address] Basic Metabolic Profile (BMP) 65 mL/min Normal Comprehensive Internal Medicine Work Phone: Comment on above: Test performed at:[facility] [address] [place] [address] CBC W/Diff, AutomatedOrdered By: Truckman on 11-01-2014 Absolute Lymph 0.73 {X10_3/ul} Abnormal 0.83-4.51 Compr ehensive Internal Medicine Work Phone: Absolute Neut 9.7 {X10_3/uL} Abnormal 2.0-7.7 Compreh ensive Internal Medicine Work Phone: Comment on above: Test performed at:[facility] [address] [place] [address] Basophils/100 WBC (Bld) 0.2 % Normal 0-1 C omprehensive Internal Medicine Work Phone: Comment on above: Test performed at:[facility] [address] [place] [address] Basophils/100 WBC Auto (Bld) 0.2 % Normal 0-1 Comprehensive Internal Medicine Work Phone: Eosinophils/100 WBC (Bld) 0.1 % Normal 0-5 Comprehensive Internal Medicine Work Phone: Comment on above: Test performed at:[facility] [address] [place] [address] Eosinophils/100 WBC Auto (Bld) 0.1 % Normal 0-5 Comprehensive Internal Medicine Work Phone: Erythrocyte distribution width Auto Ratio (RBC) 13.0 % Normal 11.6-14.6 [facility] Medicine Work Phone: Erythrocyte distribution width Ratio (RBC) 13.0 % Normal 11.6-14.6 Comprehensive Internal Medicine Work Phone: Comment on above: Test performed at:[facility] [address] [place] [address] Hematocrit Auto Volume Fraction (Bld) 38.9 % Normal 37-47 Comprehensive Internal Medicine Work Phone: Hematocrit Volume Fraction (Bld) 38.9 % Normal 37-47 Comprehensive Internal Medicine Work Phone: Comment on above: Test performed at:[facility] [address] [place] [address] Hemoglobin mass conc (Bld) 13.3 g/dL Normal 12.0-15.0 Comprehensive Internal Medicine Work Phone: Comment on above: Test performed at:[facility] [address] [place] [address] IM GRAN % 0.200 % Normal 0.0-0.9 Comprehensive Internal Medicine Work Phone: Comment on above: IG% - Immature Granu locytes (promyelocytes, myelocytes andmetamyelocytes) > 1% indicates that a LEFT SHIFT is Present. Test performed at:[facility] [address] [place] [address] Lymphocytes #/vol (Bld) 0.73 {X10_3/ul} Abnormal 0.83-4. 51 Comprehensive Internal Medicine Work Phone: Comment on above: Test performed at:[facility] [address] [place] [address] Lymphocytes/100 WBC (Bld) 6.5 % Abnormal 19-41 Comprehensive Internal Medicine Work Phone: Comment on above: Test performed at:[facility] [address] [place] [address] Lymphocytes/100 WBC Auto (Bld) 6.5 % Abnormal 19-41 Comprehensive Internal Medicine Work Phone: MCH Auto Entitic mass (RBC) 30.7 pg Normal 27.0-32.0 Comprehensive Internal Medicine Work Phone: MCH Entitic mass (RBC) 30.7 pg Normal 27.0-32.0 [facility] Internal Medicine Work Phone: Comment on above: Test performed at:[facility] [address] [place] [address] MCHC Auto mass conc (RBC) 34.2 {g/gl} Normal 32-36 Comprehensive Internal Medicine Work Phone: MCHC mass conc (RBC) 34.2 {g/gl} Normal 32-36 [facility] prehensive Internal Medicine Work Phone: Comment on above: Test performed at:[facility] [address] [place] [address] MCV Auto Entitic volume (RBC) 89.8 fL Normal 81-99 Comprehensive Internal Medicine Work Phone: MCV Entitic volume (RBC) 89.8 fL Normal 81-99 Comprehensive Internal Medicine Work Phone: Comment on above: Test performed at:[facility] [address] [place] [address] Monocytes/100 WBC Auto (Bld) 6.4 % Normal 0-10 Comprehensive Internal Medicine Work Phone: Comment on above: Test performed at:[facility] [address] [place] [address] Neutrophils/100 WBC (Bld) 86.6 % Abnormal 47-70 Comprehensive Internal Medicine Work Phone: Comment on above: Test performed at:[facility] [address] [place] [address] Neutrophils/100 WBC Auto (Bld) 86.6 % Abnormal 47-70 Comprehensive Internal Medicine Work Phone: Platelet mean volume Auto Entitic volume (Bld) 9.3 fL Normal 6.2-12.0 Comprehensive Internal Medicine Work Phone: Platelet mean volume Entitic volume (Bld) 9.3 fL Normal 6.2-12.0 Comprehensi Internal Medicine Work Phone: Comment on above: Test performed at:[facility] [address] [place] [address] Platelets #/vol (Bld) 233 10*3/uL Normal 150-450 [facility] Work Phone: Comment on above: Test performed at:[facility] [address] [place] [address] Platelets Auto #/vol (Bld) 233 10*3/uL Normal 150-450 Comprehensive Internal Medicine Work Phone: RBC #/vol (Bld) 4.33 {M/mm3} Normal 4.2-5.4 Compreh ensive Internal Medicine Work Phone: Comment on above: [facility] [facility] [address] [place] [address] RBC Auto #/vol (Bld) 4.33 {M/mm3} Normal 4.2-5.4 [facility] Work Phone: RDW SD 42.3 fL Normal 35.1-43.9 [facility] Internal Medicine Work Phone: Comment on above: Test performed at:[facility] [address] [place] [address] WBC #/vol (Bld) 11.2 10*3/uL Abnormal 4.4-11.0 Compreh ensive Internal Medicine Work Phone: Comment on above: Test performed at:[facility] [address] [place] [address] WBC Auto #/vol (Bld) 11.2 10*3/uL Abnormal 4.4-11.0 [facility] Work Phone: Urinalysis, CompleteOrdered By: Truckman on 11-01-2014 Bacteria LM.HPF #/area (Urine sed) 0 SEEN Normal Comprehensive Internal Medicine Work Phone: Comment on above: Order Date: 11/01/14 Has pt arrived? YHow was Urine Obtained? CLEAN CATCHTest performed at:[facility] [address] [place] [address] Clarity Nom (U) Clear Normal Comprehen sive Internal Medicine Work Phone: Comment on above: Order Date: 11/01/14 Has pt arrived? YHow was Urine Obtained? CLEAN CATCHTest performed at:[facility] [address] [place], [place] [id number] Color Nom (U) Yellow Normal Comprehensi ve Internal Medicine Work Phone: Comment on above: Order Date: 11/01/14 Has pt arrived? YHow was Urine Obtained? CLEAN CATCHTest performed at:[facility] [address] [place], [place] [id number] RBC #/vol (U) 5-10 SEEN Normal 0-5 Comprehensi ve Internal Medicine Work Phone: Comment on above: Order Date: 11/01/14 Has pt arrived? YHow was Urine Obtained? CLEAN CATCHTest performed at:[facility] [address] [place] [address] RBC Test strip #/vol (U) 5-10 SEEN Normal 0-5 [facility] Work Phone: WBC #/vol (Bld) 0-5 SEEN Normal 0-5 [facility]hen [facility] Work Phone: Comment on above: Order Date: 11/01/14 Has pt arrived? YHow was Urine Obtained? CLEAN CATCHTest performed at:[facility] [address] [place] [address] Urinalysis, Complete Negative Normal Comp rehensive Internal Medicine Work Phone: Comment on above: Order Date: 11/01/14 Has pt arrived? YHow was Urine Obtained? CLEAN CATCHTest performed at:[facility] [address] [place] [address] Urinalysis, Complete Normal Normal Comp rehensive Internal Medicine Work Phone: Comment on above: Order Date: 11/01/14 Has pt arrived? YHow was Urine Obtained? CLEAN CATCHTest performed at:[facility] [address] [place], [place] [id number] Urinalysis, Complete Yellow Normal Comp rehensive Internal Medicine Work Phone: Urinalysis, Complete 25 /ul Abnormal Comp rehensive Internal Medicine Work Phone: Comment on above: Order Date: 11/01/14 Has pt arrived? YHow was Urine Obtained? CLEAN CATCHTest performed at:[facility] [address] [place], [place] [id number] Urinalysis, Complete 6.0 1 Normal 5.0 - 8.0 Comp rehensive Internal Medicine Work Phone: Comment on above: Order Date: 11/01/14 Has pt arrived? YHow was Urine Obtained? CLEAN CATCHTest performed at:[facility] [address] [place] [address] Urinalysis, Complete 0 SEEN Normal Comp rehensive Internal Medicine Work Phone: Urinalysis, Complete Clear Normal Comp rehensive Internal Medicine Work Phone: Urinalysis, Complete 1.015 1 Normal 1.002-1 .03 0 [facility] Work Phone: Comment on above: Order Date: 11/01/14 Has pt arrived? YHow was Urine Obtained? CLEAN CATCHTest performed at:[facility] [address] [place], [place] [id number] Urinalysis, Complete 0-5 SEEN Normal 0-5 Comp rehensive Internal Medicine Work Phone: Comment on above: Order Date: 11/01/14 Has pt arrived? YHow was Urine Obtained? CLEAN CATCHTest performed at:[facility] [address] [place] [address] Urinalysis, Complete 1+ Normal Comp rehensive Internal Medicine Work Phone: Comment on above: Order Date: 11/01/14 Has pt arrived? YHow was Urine Obtained? CLEAN CATCHTest performed at:[facility] [address] [facility] [place], [place] [id number] Urinalysis, Complete 150 /ul Abnormal Comp rehensive Internal Medicine Work Phone: Comment on above: Order Date: 11/01/14 Has pt arrived? YHow was Urine Obtained? CLEAN CATCHTest performed at:[facility] [address] [place] [address] CBC W/Diff, AutomatedOrdered By: Truckman on 10-08-2014 Absolute Lymph 1.43 {X10_3/ul} Normal 0.83-4.51 Compr ehensive Internal Medicine Work Phone: Absolute Neut 3.6 {X10_3/uL} Normal 2.0-7.7 Compreh ensive Internal Medicine Work Phone: Comment on above: Test performed at:[facility] [address] [place] [address] Basophils/100 WBC (Bld) 0.3 % Normal 0-1 C omprehensive Internal Medicine Work Phone: Comment on above: Test performed at:[facility] [address] [place] [address] Basophils/100 WBC Auto (Bld) 0.3 % Normal 0-1 [facility] Work Phone: Eosinophils/100 WBC (Bld) 1.0 % Normal 0-5 [facility] Work Phone: Comment on above: Test performed at:[facility] [address] [place] [address] Eosinophils/100 WBC Auto (Bld) 1.0 % Normal 0-5 [facility] Work Phone: Erythrocyte distribution width Auto Ratio (RBC) 13.2 % Normal 11.6-14.6 [facility] Work Phone: Erythrocyte distribution width Ratio (RBC) 13.2 % Normal 11.6-14.6 [facility] Work Phone: Comment on above: Test performed at:[facility] [address] [place] [address] Hematocrit Auto Volume Fraction (Bld) 40.3 % Normal 37-47 [facility] Work Phone: Hematocrit Volume Fraction (Bld) 40.3 % Normal 37-47 [facility] Work Phone: Comment on above: Test performed at:[facility] [address] [place] [address] Hemoglobin mass conc (Bld) 13.4 g/dL Normal 12.0-15.0 [facility] Work Phone: Comment on above: Test performed at:[facility] [address] [place] [address] IM GRAN % 0.200 % Normal 0.0-0.9 [facility] Work Phone: Comment on above: IG% - Immature Granu locytes (promyelocytes, myelocytes andmetamyelocytes) > 1% indicates that a LEFT SHIFT is Present. Test performed at:[facility] [address] [place] [address] Lymphocytes #/vol (Bld) 1.43 {X10_3/ul} Normal 0.83-4. 51 [facility] Work Phone: Comment on above: Test performed at:[facility] [address] [place] [address] Lymphocytes/100 WBC (Bld) 24.5 % Normal 19-41 [facility] Work Phone: Comment on above: Test performed at:[facility] [address] [place] [address] Lymphocytes/100 WBC Auto (Bld) 24.5 % Normal 19-41 [facility] Work Phone: MCH Auto Entitic mass (RBC) 30.1 pg Normal 27.0-32.0 [facility] Work Phone: MCH Entitic mass (RBC) 30.1 pg Normal 27.0-32.0 Co [facility] Internal Medicine Work Phone: Comment on above: Test performed at:[facility] [address] [place] [address] MCHC Auto mass conc (RBC) 33.3 {g/gl} Normal 32-36 [facility] Work Phone: MCHC mass conc (RBC) 33.3 {g/gl} Normal 32-36 Com prehensive Internal Medicine Work Phone: Comment on above: Test performed at:[facility] [address] [place] [address] MCV Auto Entitic volume (RBC) 90.6 fL Normal 81-99 [facility] Work Phone: MCV Entitic volume (RBC) 90.6 fL Normal 81-99 [facility] Work Phone: Comment on above: Test performed at:[facility] [address] [place] [address] Monocytes/100 WBC Auto (Bld) 11.7 % Abnormal 0-10 [facility] Work Phone: Comment on above: Test performed at:[facility] [address] [place] [address] Neutrophils/100 WBC (Bld) 62.3 % Normal 47-70 [facility] Work Phone: Comment on above: Test performed at:[facility] [address] [place] [address] Neutrophils/100 WBC Auto (Bld) 62.3 % Normal 47-70 [facility] Work Phone: Platelet mean volume Auto Entitic volume (Bld) 9.5 fL Normal 6.2-12.0 [facility] Work Phone: Platelet mean volume Entitic volume (Bld) 9.5 fL Normal 6.2-12.0 Comprehensi Internal Medicine Work Phone: Comment on above: Test performed at:[facility] [address] [place] [address] Platelets #/vol (Bld) 243 10*3/uL Normal 150-450 Co mprehensive Internal Medicine Work Phone: Comment on above: Test performed at:[facility] [address] [place] [address] Platelets Auto #/vol (Bld) 243 10*3/uL Normal 150-450 [facility] Work Phone: RBC #/vol (Bld) 4.45 {M/mm3} Normal 4.2-5.4 Compreh ensive Internal Medicine Work Phone: Comment on above: Test performed at:[facility] [address] [place] [address] RBC Auto #/vol (Bld) 4.45 {M/mm3} Normal 4.2-5.4 Co mprehensive Internal Medicine Work Phone: RDW SD 42.6 fL Normal 35.1-43.9 [facility] Work Phone: Comment on above: Test performed at:[facility] [address] [place] [address] WBC #/vol (Bld) 5.8 10*3/uL Normal 4.4-11.0 Comprehe nsive Internal Medicine Work Phone: Comment on above: Test performed at:[facility] [address] [place] [address] WBC Auto #/vol (Bld) 5.8 10*3/uL Normal 4.4-11.0 Com prehensive Internal Medicine Work Phone: Comprehensive Metabolic Prof ilOrdered By: Truckman on 10-08-2014 Albumin mass conc 3.9 g/dL Normal 3.4-5.0 Compreh ensive Internal Medicine Work Phone: Comment on above: Test performed at:[facility] [address] [place] [address] Albumin/Globulin mass ratio 1.3 {RATIO} Normal 0.9-2.4 [facility] Internal [facility] Work Phone: Comment on above: Test performed at:[facility] [address] [place] [address] ALT enzyme act/vol 26 U/L Normal 12-78 [facility] Internal Medicine Work Phone: Comment on above: Test performed at:[facility] [address] [place] [address] AST enzyme act/vol 10 U/L Abnormal 15-37 [facility] Internal [facility] Work Phone: Comment on above: Test performed at:[facility] [address] [place] [address] Bilirubin mass conc 1.00 mg/dL Normal 0.00-4.00 [facility] Internal Medicine Work Phone: Comment on above: Test performed at:[facility] [address] [place] [address] Calcium mass conc 8.5 mg/dL Normal 8.5-10.1 Compreh [facility] Internal Medicine Work Phone: Comment on above: Test performed at:[facility] [address] [place] [address] Chloride molar conc 107 mmol/L Normal 98-107 [facility] Internal Medicine Work Phone: Comment on above: Test performed at:[facility] [address] [place] [address] CO2 molar conc 27.0 mmol/L Normal 21.0-32.0 [facility] Internal Medicine Work Phone: Comment on above: Test performed at:[facility] [address] [place] [address] Creatinine mass conc 0.9 mg/dL Normal 0.6-1.0 Comp [facility] Internal Medicine Work Phone: Comment on above: Test performed at:[facility] [address] [place] [address] GFR/1.73 sq M predicted among non-blacks MDRD vol rate/area (S/P/Bld) 68 mL/min/{1.73_m2} Normal Comp rehensive Internal Medicine Work Phone: Comment on above: Test performed at:[facility] [address] [place] [address] Globulin Calculated mass conc (S) 3.0 g/dL Normal 2.7-4.2 [facility] Work Phone: Globulin mass conc (S) 3.0 g/dL Normal 2.7-4.2 Co mprehensive Internal Medicine Work Phone: Comment on above: Test performed at:[facility] [address] [place] [address] Glucose mass conc 98 mg/dL Normal 70-110 Compreh ensive Internal Medicine Work Phone: Comment on above: Test performed at:[facility] [address] [place] [address] Potassium molar conc 3.7 mmol/L Normal 3.5-5.1 Comp rehensive Internal Medicine Work Phone: Comment on above: Test performed at:[facility] [address] [place] [address] Protein mass conc 6.9 g/dL Normal 6.4-8.2 Compreh ensive Internal Medicine Work Phone: Comment on above: Test performed at:[facility] [address] [place] [address] Sodium molar conc 140 mmol/L Normal 136-145 Compreh ensive Internal Medicine Work Phone: Comment on above: Test performed at:[facility] [address] [place] [address] Urea nitrogen mass conc 10 mg/dL Normal 7-18 C omprehensive Internal Medicine Work Phone: Comment on above: Test performed at:[facility] [address] [place], [place] [address] Comprehensive Metabolic Profil 6 1 Normal 5-15 Comprehensive Internal Medicine Work Phone: Comment on above: Test performed at:[facility] [address] [place] [address] Comprehensive Metabolic Profil 1.3 {RATIO} Normal 0.9-2.4 [facility] Internal Medicine Work Phone: Comprehensive Metabolic Profil 60 U/L Normal 50-136 [facility] Internal Medicine Work Phone: Comment on above: Test performed at:[facility] [address] [place] [address] Comprehensive Metabolic Profil 11.1 {RATIO} Normal 10-20 [facility] Internal Medicine Work Phone: Comment on above: Test performed at:[facility] [address] [place] [address] Comprehensive Metabolic Profil 82 mL/min Normal Comprehensive Internal Medicine Work Phone: Comment on above: Test performed at:[facility] [address] [place] [address] CBCDOrdered By: System [facility] on 06-30-2014 Erythrocyte distribution width Auto Ratio [...] mass (RBC) 30.1 pg Normal 27.0-32.0 [facility] Work Phone: MCHC Auto mass conc (RBC) 34.3 {g/gl} Normal 32-36 [facility] Internal Medicine Work Phone: MCHC mass conc (RBC) 34.3 {g/gl} Normal 32-36 [facility] prehensive Internal Medicine Work Phone: MCV Auto Entitic volume (RBC) 87.8 fL Normal 81-99 [facility] Internal Medicine Work Phone: MCV Entitic volume (RBC) 87.8 fL Normal 81-99 [facility] Internal Medicine Work Phone: Platelet mean volume Auto Entitic volume (Bld) 9.3 fL Normal 6.2-12.0 [facility] Internal Medicine Work Phone: Platelet mean volume Entitic volume (Bld) 9.3 fL Normal 6.2-12.0 Comprehensi ve Internal Medicine Work Phone: Platelets #/vol (Bld) 180 10*3/uL Normal 150-450 [facility] Work Phone: Platelets Auto #/vol (Bld) 180 10*3/uL Normal 150-450 [facility] Internal Medicine Work Phone: RBC #/vol (Bld) 4.49 {M/mm3} Normal 4.2-5.4 Compreh ensive Internal Medicine Work Phone: RBC Auto #/vol (Bld) 4.49 {M/mm3} Normal 4.2-5.4 [facility] Work Phone: WBC #/vol (Bld) 5.3 10*3/uL Normal 4.4-11.0 Comprehe nsive Internal Medicine Work Phone: WBC Auto #/vol (Bld) 5.3 10*3/uL Normal 4.4-11.0 [facility] prehensive Internal Medicine Work Phone: CBCD 65.8 [...] mass conc 4.1 g/dL Normal 3.4-5.0 [facility]h [facility] Internal Medicine Work Phone: Albumin/Globulin mass ratio 1.5 {RATIO} Normal 0.9-2.4 [facility] Internal Medicine Work Phone: ALP enzyme act/vol 83 U/L Normal 50-136 [facility] Internal [facility] Work Phone: ALT enzyme act/vol 57 U/L Normal 12-78 [facility] Internal Medicine Work Phone: AST enzyme act/vol 37 U/L Normal 15-37 [facility] Internal Medicine Work Phone: Bilirubin mass conc 1.10 mg/dL Normal 0.00-4.00 Compr ensive Internal Medicine Work Phone: Calcium mass conc 9.0 mg/dL Normal 8.5-10.1 Compreh ensive Internal Medicine Work Phone: Chloride molar conc 105 mmol/L Normal 98-107 Compr ehensive Internal Medicine Work Phone: CO2 molar conc 29.0 mmol/L Normal 21.0-32.0 Comprehen sive Internal Medicine Work Phone: Creatinine mass conc 0.9 mg/dL Normal 0.6-1.0 Comp rehensive Internal Medicine Work Phone: GFR/1.73 sq M predicted among non-blacks MDRD vol rate/area (S/P/Bld) 68 mL/min/{1.73_m2} Normal Comp rehensive Internal Medicine Work Phone: Globulin Calculated mass conc (S) 2.7 g/dL Normal 2.7-4.2 [facility] Internal Medicine Work Phone: Globulin mass conc (S) 2.7 g/dL Normal 2.7-4.2 Co mprehensive Internal Medicine Work Phone: Glucose mass conc 92 mg/dL Normal 70-110 Compreh ensive Internal Medicine Work Phone: Potassium molar conc 3.9 mmol/L Normal 3.5-5.1 Comp rehensive Internal Medicine [...] Phone: CBCDOrdered By: System Manag er on 04-03-2014 Erythrocyte distribution width Auto Ratio [...] mass (RBC) 30.3 pg Normal 27.0-32.0 [facility] Work Phone: MCHC Auto mass conc (RBC) 34.3 {g/gl} Normal 32-36 [facility] Internal Medicine Work Phone: MCHC mass conc (RBC) 34.3 {g/gl} Normal 32-36 [facility] prehensive Internal Medicine Work Phone: MCV Auto Entitic volume (RBC) 88.4 fL Normal 81-99 [facility] Internal Medicine Work Phone: MCV Entitic volume (RBC) 88.4 fL Normal 81-99 [facility] Internal Medicine Work Phone: Platelet mean volume Auto Entitic volume (Bld) 9.2 fL Normal 6.2-12.0 [facility] Internal Medicine Work Phone: Platelet mean volume Entitic volume (Bld) 9.2 fL Normal 6.2-12.0 Comprehensi Internal Medicine Work Phone: Platelets #/vol (Bld) 213 10*3/uL Normal 150-450 Co mprehensive Internal Medicine Work Phone: Platelets Auto #/vol (Bld) 213 10*3/uL Normal 150-450 [facility] Internal Medicine Work Phone: RBC #/vol (Bld) [...] maria dolores Internal Medicine Work Phone: CBCD 1.93 {X10_3/ul} Normal 0.83-4.51 Comprehen sive Internal Medicine Work Phone: CMPOrdered By: System Manage r on 04-03-2014 Albumin mass conc 3.9 g/dL Normal 3.4-5.0 Compreh ensive Internal Medicine Work Phone: Albumin/Globulin mass ratio 1.3 {RATIO} Normal 0.9-2.4 [facility] Internal Medicine Work Phone: ALP enzyme act/vol 76 U/L Normal 45-117 Compre hensive Internal Medicine Work Phone: ALT enzyme act/vol 20 U/L Normal 12-78 [facility] Internal Medicine Work Phone: AST enzyme act/vol 16 U/L Normal 15-37 [facility] Internal Medicine Work Phone: Bilirubin mass conc 0.80 mg/dL Normal 0.00-1.00 Compr ensive Internal Medicine Work Phone: Calcium mass conc 9.2 mg/dL Normal 8.5-10.1 Compreh ensive Internal Medicine Work Phone: Chloride molar conc 104 mmol/L Normal 98-107 Compr ensive Internal Medicine Work Phone: CO2 molar conc 30.0 mmol/L Normal 21.0-32.0 [facility] Internal [facility] Work Phone: Creatinine mass conc 0.8 mg/dL Normal 0.6-1.0 [facility] Work Phone: GFR/1.73 sq M predicted among non-blacks MDRD vol rate/area (S/P/Bld) 78 mL/min/{1.73_m2} Normal [facility] Work Phone: Globulin Calculated mass conc (S) 3.0 g/dL Normal 2.7-4.2 Comprehensive Internal Medicine Work Phone: Globulin mass conc (S) 3.0 g/dL Normal 2.7-4.2 Co mprensive Internal Medicine Work Phone: Glucose mass conc [...] mass conc 17 mg/dL Normal 7-18 C [facility]ppark[facility] healthensive Internal Medicine Work Phone: Urea nitrogen/Creatinine mass ratio 21.3 {RATIO} Abnormal 10-20 [facility] Internal Medicine Work Phone: CMP 6 1 Normal 5-15 [facility] Internal Medicine Work Phone: CMP 95 mL/min Normal Comprehensive Internal Medicine Work Phone: CBCDOrdered By: System [facility] on 07-08-2013 Erythrocyte distribution width Auto Ratio [...] mass (RBC) 30.8 pg Normal 27.0-32.0 [facility] Work Phone: MCHC Auto mass conc (RBC) 34.2 {g/gl} Normal 32-36 [facility] Internal Medicine Work Phone: MCHC mass conc (RBC) 34.2 {g/gl} Normal 32-36 [facility] prehensive Internal Medicine Work Phone: MCV Auto [...] Work Phone: CBCD 42.0 fL Normal 35.1-43.9 [facility] Internal Medicine Work Phone: CMPOrdered By: System Manage r on 07-08-2013 Albumin mass conc 3.7 g/dL Normal 3.4-5.0 Compreh [facility] Internal [facility] Work Phone: Albumin/Globulin mass ratio 1.3 {RATIO} Normal 0.9-2.4 [facility] Internal Medicine Work Phone: ALP enzyme act/vol 77 U/L Normal 50-136 Compre [facility] Internal Medicine Work Phone: ALT enzyme act/vol 26 U/L Normal 12-78 Compre [facility] Internal Medicine Work Phone: AST enzyme act/vol 17 U/L Normal 15-37 Compre [facility] Internal Medicine Work Phone: Bilirubin mass conc 1.30 mg/dL Abnormal 0.00-1.00 Compr ensive Internal Medicine Work Phone: Calcium mass conc 8.8 mg/dL Normal 8.5-10.1 Compreh [facility] Internal [facility] Work Phone: Chloride molar conc 107 mmol/L Normal 98-107 Compr [facility] Internal Medicine Work Phone: CO2 molar conc 29.0 mmol/L Normal 21.0-32.0 [facility] Internal Medicine Work Phone: Creatinine mass conc 0.9 mg/dL Normal 0.6-1.0 Comp [facility] Work Phone: GFR/1.73 sq M predicted among non-blacks MDRD vol rate/area (S/P/Bld) 68 mL/min/{1.73_m2} Normal Comp [facility] Work Phone: Globulin Calculated mass conc (S) 2.9 g/dL Normal 2.7-4.2 [facility] Internal Medicine Work Phone: Globulin mass conc (S) 2.9 g/dL Normal 2.7-4.2 Co mprensive Internal Medicine Work Phone: Glucose mass conc 98 mg/dL Normal 70-110 Compreh [facility] Internal Medicine Work Phone: Potassium molar conc [...] Internal Medicine Work Phone: LIPIDOrdered By: Farzad Rinaharshad abdi on 07-08-2013 Cholesterol in HDL mass [...] Comprehensive Internal Medicine Work Phone: TSHOrdered By: Stretchr r on 07-08-2013 Thyrotropin Qn 0.89 {uIU/mL} Normal 0.358-3.74 Compreh ensive Internal Medicine Work Phone: Rapid Strep Test, Office ([phone])Ordered By: Vane Fall on 12-19-2012 S. pyogenes Ag EIA Ql (Throat) Negative Normal Comprehensive Internal [facility]; [facility] Internal Medicine Work Phone: Comment on above: neg S. pyogenes Ag IA Ql (Unsp spec) Negative Normal [facility] Internal Medicine Work Phone: Comment on above: neg LIPID PANEL ([id number])Ordered B y: Truckman on 01-20-2012 Cholesterol in HDL mass conc 52 mg/dL Normal [facility] Internal Medicine Work Phone: Comment on above: According to ATP-III Guidelines, HDL-C >59 mg/dL is considered anegative risk factor for CHD. PATIENT NOT FASTINGP ERFORMED BY: CB [facility] Rxxjpl1450 [facility] [id number] Information: ADD [id number] AND DRAW FEE 99 6660 Cholesterol in LDL mass conc 111 mg/dL Abnormal 0-99 [facility] Work Phone: Comment on above: PATIENT NOT FASTINGP ERFORMED BY: CB [facility] Jdmric2647 [facility] [id number] Information: ADD [id number] AND DRAW FEE 99 6660 Cholesterol in LDL/Cholesterol in HDL mass ratio 2.1 {ratio_units} Normal 0.0-3.2 [facility] Work Phone: Comment on above: PATIENT NOT FASTINGP ERFORMED BY: CB [facility] Hswmcb8894 [facility] [id number] Information: ADD [id number] AND DRAW FEE 99 6660 Cholesterol in VLDL mass conc 19 mg/dL Normal 5-40 [facility] Work Phone: Comment on above: PATIENT NOT FASTINGP ERFORMED BY: CB [facility] Xxuiea4012 [facility] [id number] Information: ADD [id number] AND DRAW FEE 99 6660 Cholesterol mass conc 182 mg/dL Normal 100-199 Com prehensive Internal Medicine Work Phone: Comment on above: PATIENT NOT FASTINGP ERFORMED BY: CB [facility] Cnfvlg8284 [facility] [id number] Information: ADD [id number] AND DRAW FEE 99 6660 Triglyceride mass conc 97 mg/dL Normal 0-149 Co m[facility] Work Phone: Comment on above: PATIENT NOT FASTINGP ERFORMED BY: [facility] [id number] Information: ADD [id number] AND DRAW FEE 99 6660 TSH ([id number])Ordered By: Geneva m Exhaust Machine Operator on 01-20-2012 Thyrotropin Qn 1.800 {uIU/mL} Normal 0.450-4.50 0 [facility] Work Phone: Comment on above: PATIENT NOT FASTINGP ERFORMED BY: [facility] [id number] ANAOrdered By: System Manage r on 12-07-2011 Nuclear Ab IF titer (S) Normal C omprehensive Internal Medicine Work Phone: Comment on above: TESTING INTERPRETATI ONSPOSITIVE: > 120EQUIVOCAL: 100 - 120NEGATIVE: < 100 DR JONES ORDERED TDDR HORN ORDERED RPC Nuclear Ab IF titer (S) 16 AU/mL Normal [facility] Work Phone: Comment on above: DR JONES ORDERED TDDR HORN ORDERED RPC ARTEMIO Normal [facility] Work Phone: Comment on above: TESTING INTERPRETATI ONSPOSITIVE: > 120EQUIVOCAL: 100 - 120NEGATIVE: < 100 ARTEMIO 16 AU/mL Normal [facility] Work Phone: ASOOrdered By: System [employer] r on 12-07-2011 ASO 73.2 {IU/mL} Normal 0.0-200.0 Comprehensiv e Internal Medicine Work Phone: Comment on above: Performed at: [facility] [address] [id number] Director: Valencia Yoon MD, Phone: [phone] DR JONES ORDERED TDDR HORN ORDERED RPC CRPOrdered By: System [employer] r on 12-07-2011 CRP mass conc mg/L Normal 0.0-3.0 Comprehensi ve Internal Medicine Work Phone: Comment on above: C-Reactive Protein ( CRP) provides useful information for thediagnosis, therapy and monitoring of inflammatory processesand associated diseases. For the evaluation of Relative Riskfor Cardiovascular Disease, a High Sensitivity CRP (HSCRP)should be ordered. DR JONES ORDERED SOFIA CLARK ORDERED RPC RFOrdered By: Truckman on 12-07-2011 Rheumatoid factor Qn [IU]/mL Normal Comp rehensive Internal Medicine Work Phone: Comment on above: DR JONES ORDERED TDDR EDUARDO ORDERED RPC SEDOrdered By: System Manage r on 12-07-2011 ESR Velocity (Bld) 12 mm/h Normal 0-30 Compre hensive Internal Medicine Work Phone: Comment on above: DR JONES ORDERED SOFIA CASEDR EDUARDO ORDERED RPC URICOrdered By: System Manag er on 12-07-2011 URIC 3.9 mg/dL Normal 2.6-6.0 [facility] Work Phone: Comment on above: DR JONES ORDERED JIGNA CLARK ORDERED RPC VITDOrdered By: System Manag er on 12-07-2011 VITD 75.7 ng/mL Normal 30.0-100.0 [facility] Work Phone: Comment on above: Vitamin D deficiency has been defined by the [place] ofMedicine and an Endocrine Society practice guideline as alevel of serum 25-OH vitamin D less than 20 ng/mL (1,2).The Endocrine Society went on to further define vitamin Dinsufficiency as a level between 21 and 29 ng/mL (2).1. IOM ([place] of Medicine). 2010. Dietary reference intakes for calcium and D. [place]: The National Academies Press.2. Andrey MF, Dago [place], Cuau[place]emoc MOSS, et al. Evaluation, treatment, and prevention of vitamin D deficiency: an Endocrine Society clinical practice guideline. JCEM. 2010; 96(7):1911-30. DR JONES ORDERED TDDR EDUARDO ORDERED RPC FOOT,MIN 3 VIEWSOrdered By: Truckman on 07-15-2011 FOOT,MIN 3 VIEWS See Note [...] Dictated on 07/15/11 1057 by CHARIS BARGER MD BTranscribed on 07/15/111215 by ITS IMPORTSign by CHARIS BARGER MD on 07/15/111216 Sign by: CHARIS BARGER MD LIPID PANEL ([id number])Ordered B y: Truckman on 05-25-2011 Cholesterol in HDL mass conc 50 mg/dL Normal [facility] Work Phone: Comment on above: According to ATP-III Guidelines, HDL-C >59 mg/dL is considered anegative risk factor for CHD. PATIENT WAS FASTINGP ERFORMED BY: [employer]6370 [facility] [id number] Information: [id number] Cholesterol in LDL mass conc 111 mg/dL Abnormal 0-99 [facility] Work Phone: Comment on above: PATIENT WAS FASTINGP ERFORMED BY: [employer] Eyavow1711 [facility] [id number] Information: [id number] Cholesterol in LDL/Cholesterol in HDL mass ratio 2.2 {ratio_units} Normal 0.0-3.2 [facility] Work Phone: Comment on above: PATIENT WAS FASTINGP ERFORMED BY: [employer] Jishyj7629 [facility] [id number] Information: [id number] Cholesterol in VLDL mass conc 20 mg/dL Normal 5-40 [facility] Work Phone: Comment on above: PATIENT WAS FASTINGP ERFORMED BY: [facility] Jjtcqn9888 [address] [facility] [id number] Information: [id number] Cholesterol mass conc 181 mg/dL Normal 100-199 Com prehensive Internal Medicine Work Phone: Comment on above: PATIENT WAS FASTINGP ERFORMED BY: CB [facility] Oaepse4739 [address] [facility] [place] [id number] Information: [id number] Triglyceride mass conc 101 mg/dL Normal 0-149 Co mprehensive [facility] Work Phone: Comment on above: PATIENT WAS FASTINGP ERFORMED BY: [facility] Urjkvy7297 [facility] [id number] Information: [id number] Vitamin D Hydroxy (80587)Ord ered By: Truckman on 05-25-2011 Calcitriol mass conc 28.0 ng/mL Abnormal 32.0-100.0 Comp rehensive Internal Medicine Work Phone: Comment on above: Recent studies consi nuris the lower limit of 32.0 ng/mL to be athreshold for optimal health.Darian SALDANA. J Nutr. 2004;135(2):317-22. PATIENT WAS FASTINGP ERFORMED BY: [facility] Pghcxd3617 [facility] [id number] DEXA BONE DENSITY STUDY (HP) Ordered By: Truckman on 12-07-2010 DEXA BONE DENSITY STUDY (HP) See Note Normal [facility] Work Phone: Comment on above: CLINICAL:Female, 55 years old. The patient is postmenopausal. EXAMINATION:DUAL ENERGY X-RAY ABSORPTIOMETRY / DEXA. TECHNIQUE:Bone Mineral Density (BMD) measurements of lumbar spine and bilateralhipswere obtained using a Etreasurebox scanner.. COMPARISON:Comparison is made with prior examination [...] [email or web address] Dictated on 12/07/10 1040 by Jack Priec MDranscribed on 12/07/102320 by ITS IMPORTSign by James Price MD on 12/07/102321 Sign by: James Price MD MAMMOGRAPHY - [...] clinically suspiciousabnormality. Dictated on 12/07/10 1002 by Albert ROSE,Jackranscribed on 12/07/10 2358 by ITS IMPORTSign by James Price MD on 12/07/103 Sign by: James Price MD FECAL OCCULT HGB ASSAY- tube s sent home ([id number])Ordered By: Leighann Carbajal on 11-30-2010 Hemoglobin.gastrointest inal [...] ALP enzyme act/vol 69 U/L Normal 50-136 Compre [facility] Work Phone: ALT enzyme act/vol 28 U/L Normal 12-78 [facility]pre [facility] Work Phone: AST enzyme act/vol 11 U/L Abnormal 15-37 Compre [facility] Work Phone: Bilirubin mass conc 0.90 mg/dL Normal 0.00-1.00 Compr [facility] Internal Medicine Work Phone: Bilirubin.direct mass conc 0.18 mg/dL Normal 0.00-0.30 [facility] Work Phone: Protein mass conc 7.8 g/dL Normal 6.4-8.2 Compreh ensive Internal Medicine Work Phone: VIT D,25 [id number] By: Sy stem Exhaust Machine Operator on 09-17-2010 VIT D,25 34500 20.6 ng/mL Abnormal 32.0-100.0 Comprehlower [facility] hospitale Internal [facility] Work Phone: Comment on above: Recent studies consi nuris the lower limit of 32.0 ng/mL to hernan threshold for optimal health.Darian SALDANA. J Nutr. 2004;135(2):317-22.Performed at: [facility] [address] [id number] Director: Valencia Yoon MD, Phone: [phone] FECAL OCCULT HGB ASSAY, QUAL , 1-3 SIMULTANEOUS DETERMINATIONS ([id number])Ordered By: Emily Meadows on 01-23-2009 Hemoglobin.gastrointest inal Ql (St) Negative Normal [facility] Work Phone: Hemoglobin.gastrointest inal Ql (Stl) Negative Normal [facility]; [facility] Work Phone: C-Reactive Protein, QuantOrd ered By: Truckman on 01-08-2009 CRP mass conc 2.6 mg/L Normal 0.0-4.9 Comprehensi ve Internal Medicine Work Phone: Comment on above: PERFORMED BY: [facility] [address] [id number] CBC With Differential/Platel etOrdered By: Truckman on 01-08-2009 Basophils #/vol (Bld) 0.1 {x10E3/uL} Normal 0.0-0.2 [facility] Work Phone: Comment on above: PERFORMED BY: [facility] [address] [id number] Basophils Auto #/vol (Bld) 0.1 {x10E3/uL} Normal 0.0-0.2 [facility] Work Phone: Basophils/100 WBC (Bld) 1 % Normal 0-3 C omprehensive Internal Medicine Work Phone: Comment on above: PERFORMED BY: [facility] [address] [id number] Basophils/100 WBC Auto (Bld) 1 % Normal 0-3 [facility] Work Phone: Eosinophils #/vol (Bld) 0.1 {x10E3/uL} Normal 0.0-0.4 [facility] Work Phone: Comment on above: PERFORMED BY: [facility] [address] [id number] Eosinophils Auto #/vol (Bld) 0.1 {x10E3/uL} Normal 0.0-0.4 [facility] Work Phone: Eosinophils/100 WBC (Bld) 1 % Normal 0-7 [facility] Work Phone: Comment on above: PERFORMED BY: [facility] [address] [id number] Eosinophils/100 WBC Auto (Bld) 1 % Normal 0-7 [facility] Work Phone: Erythrocyte distribution width Auto Ratio (RBC) 13.4 % Normal 11.7-15.0 [facility] Work Phone: Erythrocyte distribution width Ratio (RBC) 13.4 % Normal 11.7-15.0 [facility] Work Phone: Comment on above: PERFORMED BY: [facility] [address] [id number] Hematocrit Auto Volume Fraction (Bld) 41.8 % Normal 34.0-44.0 [facility] Work Phone: Hematocrit Volume Fraction (Bld) 41.8 % Normal 34.0-44.0 [facility] Internal Medicine Work Phone: Comment on above: PERFORMED BY: [facility] [address] [id number] Hemoglobin mass conc (Bld) 14.2 g/dL Normal 11.5-15.0 [facility] Internal Medicine Work Phone: Comment on above: PERFORMED BY: [facility] [address] [id number] Lymphocytes #/vol (Bld) 1.7 {x10E3/uL} Normal 0.7-4.5 [facility] Work Phone: Comment on above: PERFORMED BY: [facility] [address] [id number] Lymphocytes Auto #/vol (Bld) 1.7 {x10E3/uL} Normal 0.7-4.5 [facility] Work Phone: Lymphocytes/100 WBC (Bld) 34 % Normal 14-46 [facility] Work Phone: Comment on above: PERFORMED BY: [facility] [address] [id number] Lymphocytes/100 WBC Auto (Bld) 34 % Normal 14-46 [facility] Work Phone: MCH Auto Entitic mass (RBC) 30.1 pg Normal 27.0-34.0 [facility] Work Phone: MCH Entitic mass (RBC) 30.1 pg Normal 27.0-34.0 [facility] Internal Medicine Work Phone: Comment on above: PERFORMED BY: [facility] [address] [id number] MCHC Auto mass conc (RBC) 34.0 g/dL Normal 32.0-36.0 [facility] Work Phone: MCHC mass conc (RBC) 34.0 g/dL Normal 32.0-36.0 Comp rehensive Internal Medicine Work Phone: Comment on above: PERFORMED BY: [facility] [address] [id number] MCV Auto Entitic volume (RBC) 89 fL Normal 80-98 [facility] Work Phone: MCV Entitic volume (RBC) 89 fL Normal 80-98 [facility] Work Phone: Comment on above: PERFORMED BY: [facility] [address] [id number] Monocytes #/vol (Bld) 0.5 {x10E3/uL} Normal 0.1-1.0 [facility] Work Phone: Comment on above: PERFORMED BY: [facility] [address] [id number] Monocytes Auto #/vol (Bld) 0.5 {x10E3/uL} Normal 0.1-1.0 [facility] Work Phone: Monocytes/100 WBC (Bld) 10 % Normal 4-13 C omprehensive [facility] Medicine Work Phone: Comment on above: PERFORMED BY: [facility] [address] [id number] Monocytes/100 WBC Auto (Bld) 10 % Normal 4-13 [facility] Work Phone: Neutrophils #/vol (Bld) 2.8 {x10E3/uL} Normal 1.8-7.8 [facility] Work Phone: Comment on above: PERFORMED BY: [facility] [address] [id number] Neutrophils Auto #/vol (Bld) 2.8 {x10E3/uL} Normal 1.8-7.8 [facility] Work Phone: Neutrophils/100 WBC (Bld) 54 % Normal 40-74 [facility] Work Phone: Comment on above: PERFORMED BY: [facility] [address] [id number] Neutrophils/100 WBC Auto (Bld) 54 % Normal [...] 349 Adult 140 - 415 PERFORMED BY: [facility] [address] [id number] Platelets Auto #/vol (Bld) 271 {x10E3/uL} Normal [...] RBC #/vol (Bld) 4.72 {x10E6/uL} Normal 3.80-5.10 [facility] Internal Medicine Work Phone: Comment on above: PERFORMED BY: [facility] [address] [id number] RBC Auto #/vol (Bld) 4.72 {x10E6/uL} Normal 3.80-5.10 [facility] Work Phone: WBC #/vol (Bld) 5.1 {x10E3/uL} Normal 4.0-10.5 Compr ehensive Internal Medicine Work Phone: Comment on above: PERFORMED BY: [facility] [address] [id number] WBC Auto #/vol (Bld) 5.1 {x10E3/uL} Normal 4.0-10.5 [facility] Work Phone: Calcitriol(1,25 di-OH Vit D) Ordered By: Truckman on 01-08-2009 Calcitriol mass conc 70.6 pg/mL Abnormal 15.9-55.6 Comp rehensive Internal Medicine Work Phone: Comment on above: PERFORMED BY: [facility] [address] [id number] Calcium, SerumOrdered By: Teak stem Exhaust Machine Operator on 01-08-2009 Calcium mass conc 9.9 mg/dL Normal 8.5-10.6 Compreh ensive Internal Medicine Work Phone: Comment on above: PERFORMED BY: [facility] [address] [id number] Creatinine, SerumOrdered By: Truckman on 01-08-2009 Creatinine mass conc 0.96 mg/dL Normal 0.57-1.00 Comp [facility] Work Phone: Comment on above: PERFORMED BY: [facility] [address] [id number] GFR/1.73 sq M predicted among blacks MDRD vol rate/area (S/P/Bld) mL/min/{1.73_m2} Normal Comprehensi ve Internal Medicine Work Phone: Comment on above: Note: Persistent red uction for 3 months or more in an eGFR<60 mL/min/1.73 m2 defines CKD. Patients with eGFR values>/=60 mL/min/1.73 m2 may also have CKD if evidence of persistentproteinuria is present. Additional information may be found [email or web address].org. PERFORMED BY: [facility] [address] [id number] GFR/1.73 sq M.predicted MDRD vol rate/area mL/min/{1.73_m2} Normal Comprehensiv e Internal Medicine Work Phone: Comment on above: PERFORMED BY: [facility] [address] [id number] Hepatic Function Panel (7)Or dered By: Truckman on 01-08-2009 Albumin mass conc 4.7 g/dL Normal 3.5-5.5 Compreh [facility] Internal Medicine Work Phone: Comment on above: PERFORMED BY: [facility] [address] [id number] ALP enzyme act/vol 72 [iU]/L Normal 25-150 [facility] Internal Medicine Work Phone: Comment on above: PERFORMED BY: [facility] [address] [id number] ALT enzyme act/vol 23 [iU]/L Normal 0-40 [facility] Internal Medicine Work Phone: Comment on above: PERFORMED BY: [facility] [address] [id number] AST enzyme act/vol 19 [iU]/L Normal 0-40 [facility] Internal Medicine Work Phone: Comment on above: PERFORMED BY: [facility] [address] [id number] Bilirubin mass conc 1.1 mg/dL Normal 0.1-1.2 Compr [facility] Internal Medicine Work Phone: Comment on above: PERFORMED BY: [facility] [address] [id number] Bilirubin.direct mass conc 0.28 mg/dL Normal 0.00-0.40 [facility] Work Phone: Comment on above: PERFORMED BY: [facility] [address] [id number] PTH, IntactOrdered By: Geneva mccray Exhaust Machine Operator on 01-08-2009 Parathyrin.intact mass conc 39 pg/mL Normal 15-65 [facility] Work Phone: Comment on above: PERFORMED BY: [facility] [address] [id number] Protein Electro, Random Urin eOrdered By: Truckman on 01-08-2009 Albumin/Protein.total Elph mass fraction (U) 39.8 % Normal [facility] Internal Medicine Work Phone: Comment on above: PERFORMED BY: [facility] [address] [id number] Alpha 1 globulin/Protein.total Elph mass fraction (U) 5.1 % Normal [facility] Internal Medicine Work Phone: Comment on above: PERFORMED BY: [facility] [address] [id number] Alpha 2 globulin/Protein.total Elph mass fraction (U) 15.0 % Normal [facility] Internal Medicine Work Phone: Comment on above: PERFORMED BY: [facility] [address] [id number] Beta globulin/Protein.total Elph mass fraction (U) 27.4 % Normal [facility] Internal Medicine Work Phone: Comment on above: PERFORMED BY: [facility] [address] [id number] Gamma globulin/Protein.total Elph mass fraction (U) 12.7 % Normal [facility] Internal Medicine Work Phone: Comment on above: PERFORMED BY: [facility] [address] [id number] Laboratory comment Armando (Report) SPRCS Normal [facility] Work Phone: Comment on above: Protein electrophore sis scan will follow via computer, mail, orcourier delivery. PERFORMED BY: [facility] [address] [id number] Protein mass conc (U) 21.1 mg/dL Abnormal 0.0-15.0 Com prehensive Internal Medicine Work Phone: Comment on above: PERFORMED BY: [facility] [address] [id number] Protein.monoclonal/Prot ein.total Elph mass fraction (U) Not Observed Normal [facility] Work Phone: Comment on above: PERFORMED BY: [facility] [address] [id number] Protein Electro.,SOrdered By : Truckman on 01-08-2009 Albumin mass conc 4.5 g/dL Normal 3.2-5.6 Compreh [facility] Internal Medicine Work Phone: Comment on above: PERFORMED BY: [facility] [address] [id number] Albumin/Globulin mass ratio 1.5 {ratio} Normal 0.7-2.0 [facility] Work Phone: Comment on above: PERFORMED BY: [facility] [address] [id number] Alpha 1 globulin Elph mass conc 0.2 g/dL Normal 0.1-0.4 [facility] Work Phone: Comment on above: PERFORMED BY: [facility] [address] [id number] Alpha 2 globulin Elph mass conc 0.7 g/dL Normal 0.4-1.2 [facility] Work Phone: Comment on above: PERFORMED BY: [facility] [address] [id number] Beta globulin Elph mass conc 1.0 g/dL Normal 0.6-1.3 [facility] Work Phone: Comment on above: PERFORMED BY: [facility] [address] [id number] Gamma globulin Elph mass conc 1.1 g/dL Normal 0.5-1.6 [facility] Work Phone: Comment on above: PERFORMED BY: [facility] [address] [id number] Globulin Calculated mass conc (S) 3.0 g/dL Normal 2.0-4.5 [facility] Work Phone: Globulin mass conc (S) 3.0 g/dL Normal 2.0-4.5 [facility] Internal Medicine Work Phone: Comment on above: PERFORMED BY: [facility] [address] [id number] Protein mass conc 7.5 g/dL Normal 6.0-8.5 Compreh ensive Internal Medicine Work Phone: Comment on above: PERFORMED BY: [facility] [address] [id number] Protein.monoclonal Elph mass conc Not Observed Normal [facility] Work Phone: Comment on above: PERFORMED BY: [facility] [address] [id number] Sedimentation Rate-Westergre nOrdered By: Truckman on 01-08-2009 ESR Velocity (Bld) 4 mm/h Normal 0-30 Compre hensive Internal Medicine Work Phone: Comment on above: PERFORMED BY: [facility] [address] [id number] TSHOrdered By: System Manage r on 01-08-2009 Thyrotropin Qn 0.868 {uIU/mL} Normal 0.450-4.50 0 [facility] Work Phone: Comment on above: PERFORMED BY: [facility] [address] [id number] Vitamin D, 25-HydroxyOrdered By: Truckman on 01-08-2009 Calcitriol mass conc 26.0 ng/mL Abnormal 32.0-100.0 Comp rehensive Internal Medicine Work Phone: Comment on above: Recent studies consi nuris the lower limit of 32.0 ng/mL to be athreshold for optimal health.Darian SALDANA. J Nutr. 2004;135(2):317-22. PERFORMED BY: [facility] [address] [id number] DEXA BONE DENSITY STUDY (HP) Ordered By: Truckman on 12-25-2008 DEXA BONE DENSITY STUDY (HP) See Note Normal [facility] Work Phone: Comment on above: Exam Number: [id number] BONE DENSITOMETRY HISTORYPostmenopausal. TECHNIQUE Bone densitometry [...] Reported By: ELENA CHACKO M.D. Exam Number: [id number] 05 MAMMOGRAM, BILATERAL SCREENING DIGITAL AND CAD [...] mammograms werealso examined with computer-aided detection software ([employer].). Reported By: ELENA CHACKO M.D. LIPID PANEL ([id number])Ordered B y: Patt Jones on 12-03-2008 Cholesterol in HDL mass conc 51 mg/dL Normal [facility] Work Phone: Comment on above: According to ATP-III Guidelines, HDL-C >59 mg/dL is considered anegative risk factor for CHD. PATIENT WAS FASTINGC linical Information: ADD DRAW FEE [id number] ADD J [id number] PERFORMED BY: St[employer] CommunicationsNew Sunrise Regional Treatment CenterQvxvmd7366 [place] [facility]ologyAt[facility] [id number] Cholesterol in LDL mass conc 169 mg/dL Abnormal 0-99 [facility] Work Phone: Comment on above: PATIENT WAS FASTINGC linical Information: ADD DRAW FEE [id number] ADD J [id number] PERFORMED BY: [employer] [id number] Cholesterol in LDL/Cholesterol in HDL mass ratio 3.3 {ratio_units} Abnormal 0.0-3.2 [facility] Work Phone: Comment on above: PATIENT WAS FASTINGC linical Information: ADD DRAW FEE [id number] ADD J 92500 PERFORMED BY: [employer] [id number] Cholesterol in LDL/Cholesterol in HDL mass ratio SPRCS Normal [facility] Work Phone: Comment on above: If initial LDL-manpreet sterol result is >100 mg/dL, assess forrisk factors. PATIENT WAS FASTINGC linical Information: ADD DRAW FEE [id number] ADD J 35415 PERFORMED BY: OpenBookHenry [facility] [id number] Cholesterol in VLDL mass conc 22 mg/dL Normal 5-40 [facility] Work Phone: Comment on above: PATIENT WAS FASTINGC linical Information: ADD DRAW FEE [id number] ADD J 58386 PERFORMED BY: [employer] [address] [place] [address] [id number] Cholesterol mass conc 242 mg/dL Abnormal 100-199 Com prehensive Internal Medicine Work Phone: Comment on above: PATIENT WAS FASTINGC linical Information: ADD DRAW FEE [id number] ADD J 92263 PERFORMED BY: [employer] [id number] Triglyceride mass conc 111 mg/dL Normal 0-149 [facility] Work Phone: Comment on above: PATIENT WAS FASTINGC linical Information: ADD DRAW FEE [id number] ADD J [id number] [facility]FORMED BY: [id number] [id number] Vital Signs Date Time Vital Sign Value Performing Clinician Facility 04-28-2025 11:43-0400 Diastolic blood pressure 59 mm[Hg] Dr. Patt Jones DO Work Phone: [facility] 04-28-2025 11:43-0400 Systolic blood pressure 139 mm[Hg] Dr. Patt Jones DO Work Phone: [facility] 04-28-2025 11:02-0400 Body temperature 98.1 [degF] Dr. Patt Jones DO Work Phone: [facility] 04-28-2025 11:02-0400 Heart rate 94 /min Dr. Patt Jones DO Work Phone: [facility] 04-28-2025 11:02-0400 Respiratory rate 16 /min Dr. Patt Jones DO Work Phone: [facility] 04-28-2025 11:02-0400 SaO2% (BldA) [Mass fraction] 99 % Dr. Patt Jones DO Work Phone: [facility] 04-28-2025 09:19-0400 Body height 149.[address] Patt Jones DO Work Phone: [facility] 04-28-2025 09:19-0400 Body weight 65.[address] Patt Jones DO Work Phone: [facility] 04-27-2025 16:03-0400 Body mass index (BMI) [Ratio] 29 kg/m2 Dr. Patt Jones DO Work Phone: [facility] 04-27-2025 15:54-0400 Body temperature 97.6 [degF] Dr. Patt Jones DO Work Phone: [facility] 04-27-2025 15:54-0400 Diastolic blood pressure 100 mm[Hg] Dr. Patt Jones DO Work Phone: [facility] 04-27-2025 15:54-0400 Heart rate 91 /min Dr. Patt Jones DO Work Phone: [facility] 04-27-2025 15:54-0400 Respiratory rate 16 /min Dr. Patt Jones DO Work Phone: [facility] 04-27-2025 15:54-0400 SaO2% (BldA) [Mass fraction] 98 % Dr. Patt Jones DO Work Phone: [facility] 04-27-2025 15:54-0400 Systolic blood pressure 141 mm[Hg] Dr. Patt oJnes DO Work Phone: [facility] 04-27-2025 13:13-0400 Body mass index (BMI) [Ratio] 29.8 kg/m2 Dr. Patt Jones DO Work Phone: [facility] 04-27-2025 13:13-0400 Body weight 67.[address] Patt Jones DO Work Phone: [facility] 04-27-2025 11:24-0400 Body height 149.[address] Patt Jones DO Work Phone: [facility] 04-02-2025 18:00-0400 Body temperature 97.5 [degF] Dr. Patt Jones DO Work Phone: [facility] 04-02-2025 18:00-0400 Diastolic blood pressure 77 mm[Hg] Dr. Patt Jones DO Work Phone: [facility] 04-02-2025 18:00-0400 Heart rate 80 /min Dr. Patt Jones DO Work Phone: [facility] 04-02-2025 18:00-0400 Respiratory rate 18 /min Dr. Patt Jones DO Work Phone: [facility] 04-02-2025 18:00-0400 SaO2% (BldA) [Mass fraction] 98 % Dr. aPtt Jones DO Work Phone: [facility] 04-02-2025 18:00-0400 Systolic blood pressure 154 mm[Hg] Dr. Patt Jones DO Work Phone: [facility] 04-02-2025 16:16-0400 Body mass index (BMI) [Ratio] 33.3 kg/m2 Dr. Patt Jones DO Work Phone: [facility] 04-02-2025 16:16-0400 Body weight [address] Patt Jones DO Work Phone: [facility] 04-02-2025 14:04-0400 Body height 149.[address] Patt Jones DO Work Phone: [facility] 03-21-2025 11:22-0400 Body temperature 97.8 [degF] Dr. Patt Jones DO Work Phone: [facility] 03-21-2025 11:22-0400 Diastolic blood pressure 70 mm[Hg] Dr. Patt Jones DO Work Phone: [facility] 03-21-2025 11:22-0400 Heart rate 79 /min Dr. Patt Jones DO Work Phone: [facility] 03-21-2025 11:22-0400 Respiratory rate 16 /min Dr. Patt Jones DO Work Phone: [facility] 03-21-2025 11:22-0400 SaO2% (BldA) [Mass fraction] 98 % Dr. Patt Jones DO Work Phone: [facility] 03-21-2025 11:22-0400 Systolic blood pressure 130 mm[Hg] Dr. Patt Jones DO Work Phone: [facility] 03-10-2025 11:22-0400 Body temperature 98.1 [degF] Dr. Patt Jones DO Work Phone: [facility] 03-10-2025 11:22-0400 Diastolic blood pressure 85 mm[Hg] Dr. Patt Jones DO Work Phone: [facility] 03-10-2025 11:22-0400 Heart rate 71 /min Dr. Patt Jones DO Work Phone: [facility] 03-10-2025 11:22-0400 Respiratory rate 16 /min Dr. Patt Jones DO Work Phone: [facility] 03-10-2025 11:22-0400 SaO2% (BldA) [Mass fraction] 98 % Dr. Patt Jones DO Work Phone: [facility] 03-10-2025 11:22-0400 Systolic blood pressure 125 mm[Hg] Dr. Patt Jones DO Work Phone: [facility] 01-12-2025 16:28-0400 Body temperature 97.3 [degF] Dr. Patt Jones DO Work Phone: [facility] 01-12-2025 16:28-0400 Diastolic blood pressure 86 mm[Hg] Dr. Patt Jones DO Work Phone: [facility] 01-12-2025 16:28-0400 Heart rate 73 /min Dr. Patt Jones DO Work Phone: [facility] 01-12-2025 16:28-0400 Respiratory rate 17 /min Dr. Patt Jones DO Work Phone: [facility] 01-12-2025 16:28-0400 SaO2% (BldA) [Mass fraction] 97 % Dr. Patt Jones DO Work Phone: [facility] 01-12-2025 16:28-0400 Systolic blood pressure 177 mm[Hg] Dr. Patt Jones DO Work Phone: [facility] 01-12-2025 14:07-0400 Body mass index (BMI) [Ratio] 32.1 kg/m2 Dr. Patt Jones DO Work Phone: [facility] 01-12-2025 14:07-0400 Body weight 72.[address] Patt Jones DO Work Phone: [facility] 01-12-2025 14:05-0400 Body height 149.[address] Patt Jonse DO Work Phone: [facility] 08-24-2024 08:04-0500 Body temperature 98.1 [degF] Dr. Patt Jones DO Work Phone: [facility] 08-24-2024 08:04-0500 Diastolic blood pressure 70 mm[Hg] Dr. Patt Jones DO Work Phone: [facility] 08-24-2024 08:04-0500 Heart rate 77 /min Dr. Patt Jones DO Work Phone: [facility] 08-24-2024 08:04-0500 Respiratory rate 16 /min Dr. Patt Jones DO Work Phone: [facility] 08-24-2024 08:04-0500 SaO2% (BldA) [Mass fraction] 97 % Dr. Patt Jones DO Work Phone: [facility] 08-24-2024 08:04-0500 Systolic blood pressure 149 mm[Hg] Dr. Patt Jones DO Work Phone: [facility] 08-21-2024 13:08-0500 Body height 149.[address] Patt Jones DO Work Phone: [facility] 08-21-2024 13:08-0500 Body weight 75.[address] Patt Jones DO Work Phone: [facility] 08-20-2024 10:00-0500 Body mass index (BMI) [Ratio] 33.5 kg/m2 Dr. Patt Jones DO Work Phone: [facility] 08-05-2024 13:00-0500 Body temperature 98.1 [degF] Dr. Patt Jones DO Work Phone: [facility] 08-05-2024 13:00-0500 Diastolic blood pressure 71 mm[Hg] Dr. Patt Jones DO Work Phone: [facility] 08-05-2024 13:00-0500 Heart rate 95 /min Dr. Patt Jones DO Work Phone: [facility] 08-05-2024 13:00-0500 Respiratory rate 16 /min Dr. Patt Jones DO Work Phone: [facility] 08-05-2024 13:00-0500 SaO2% (BldA) [Mass fraction] 100 % Dr. Patt Jones DO Work Phone: [facility] 08-05-2024 13:00-0500 Systolic blood pressure 148 mm[Hg] Dr. Patt Jones DO Work Phone: [facility] 08-02-2024 13:41-0500 Body weight 73.[address] Patt Jones DO Work Phone: [facility] 08-02-2024 04:30-0500 Body mass index (BMI) [Ratio] 32.7 kg/m2 Dr. Patt Jones DO Work Phone: [facility] 06-03-2023 15:41-0400 Body height 149.[address] Patt Jones Work Phone: [facility] 06-03-2023 15:41-0400 Body mass index (BMI) [Ratio] 37.3 kg/m2 Dr. Patt Jones Work Phone: [facility] 06-03-2023 15:41-0400 Body temperature 97.6 [degF] Dr. Patt Jones Work Phone: [facility] 06-03-2023 15:41-0400 Body weight 83.[address] Patt Jones Work Phone: [facility] 06-03-2023 15:41-0400 Diastolic blood pressure 97 mm[Hg] Dr. Patt Jones Work Phone: [facility] 06-03-2023 15:41-0400 Heart rate 66 /min Dr. Patt Jones Work Phone: [facility] 06-03-2023 15:41-0400 Respiratory rate 14 /min Dr. Patt Jones Work Phone: [facility] 06-03-2023 15:41-0400 SaO2% (BldA) [Mass fraction] 99 % Dr. Patt Jones Work Phone: [facility] 06-03-2023 15:41-0400 Systolic blood pressure 134 mm[Hg] Dr. Patt Jones Work Phone: [facility] 04-18-2023 15:51-0400 Diastolic blood pressure 62 mm[Hg] Dr. Patt Jones Work Phone: [facility] 04-18-2023 15:51-0400 Heart rate 78 /min Dr. Patt Jones Work Phone: [facility] 04-18-2023 15:51-0400 Respiratory rate 18 /min Dr. Patt Jones Work Phone: [facility] 04-18-2023 15:51-0400 SaO2% (BldA) [Mass fraction] 99 % Dr. Patt Jones Work Phone: [facility] 04-18-2023 15:51-0400 Systolic blood pressure 159 mm[Hg] Dr. Patt Jones Work Phone: [facility] 04-18-2023 13:25-0400 Body mass index (BMI) [Ratio] 39.5 kg/m2 Dr. Patt Jones Work Phone: [facility] 04-18-2023 13:25-0400 Body weight 85.[address] Patt Jones Work Phone: [facility] 04-18-2023 12:33-0400 Body height 147.[address] Patt Jones Work Phone: [facility] 04-18-2023 12:33-0400 Body temperature 98 [degF] Dr. Patt Jones Work Phone: [facility] 11-21-2022 01:14-0400 Body height 147.32 cm [facility] 11-21-2022 01:14-0400 Body mass index (BMI) [Ratio] 38.8 kg/m2 [facility] 11-21-2022 01:14-0400 Body temperature 97.4 [degF] [facility] 11-21-2022 01:14-0400 Body weight 84.3 kg [facility] 11-21-2022 01:14-0400 Diastolic blood pressure 84 mm[Hg] [facility] 11-21-2022 01:14-0400 Heart rate 81 /min [facility] 11-21-2022 01:14-0400 Respiratory rate 16 /min [facility] 11-21-2022 01:14-0400 SaO2% (BldA) [Mass fraction] 98 % [facility] 11-21-2022 01:14-0400 Systolic blood pressure 174 mm[Hg] [facility] 01-26-2022 11:20-0400 Body height 149.86 cm [facility] Work Phone: 01-26-2022 11:20-0400 Body mass index (BMI) [Ratio] 35.17 kg/m2 [facility]; [facility] Work Phone: 01-26-2022 11:20-0400 Body surface area Derived from formula 1.74 m2 Stephanie Duke [facility]; [facility] Work Phone: 01-26-2022 11:20-0400 Body temperature 97.3 [degF] Stephanie Duke CMA [facility]; [facility] Work Phone: Comment on above: Method: Infrared 01-26-2022 11:20-0400 Body weight 78.98 kg Stephanie Duke [facility]; [facility] Work Phone: 01-26-2022 11:20-0400 Diastolic blood pressure 76 mm[Hg] Stephanie Duke [facility]; [facility] Work Phone: Comment on above: Patient Position: Sitting; Cuff Location : Left Arm; Cuff Size: Standard 01-26-2022 11:20-0400 Heart rate 71 /min Stephanie Duke [facility]; [facility] Work Phone: Comment on above: Pattern: Regular 01-26-2022 11:20-0400 Respiratory rate 16 /min Stephanie Duke [facility]; [facility] Work Phone: Comment on above: Pattern: Unlabored 01-26-2022 11:20-0400 SaO2% (BldA) [Mass fraction] 97 % Stephanie Duke [facility]; [facility] Work Phone: Comment on above: Room air 01-26-2022 11:20-0400 Systolic blood pressure 134 mm[Hg] Stephanie Duke [facility]; [facility] Work Phone: Comment on above: Patient Position: Sitting; Cuff Location : Left Arm; Cuff Size: Standard 01-19-2022 13:56-0400 Body height 149.[address] Patt Jones Work Phone: [facility] Work Phone: 01-19-2022 13:56-0400 Body mass index (BMI) [Ratio] 34.7 kg/m2 Dr. Patt Jones Work Phone: [facility] Work Phone: 01-19-2022 13:56-0400 Body weight 78.[address] Patt Jones Work Phone: [facility] Work Phone: 07-02-2021 13:06-0400 Body height 149.86 cm Kimberli Slarb [employer] [facility]; [facility] Work Phone: 07-02-2021 13:06-0400 Body mass index (BMI) [Ratio] 36.78 kg/m2 Kimberli Slarb [employer] [facility]; [facility] Work Phone: 07-02-2021 13:06-0400 Body surface area Derived from formula 1.77 m2 Kimberli Slarb [employer] [facility]; [facility] Work Phone: 07-02-2021 13:06-0400 Body temperature 97.7 [degF] Kimberli Slarb [employer] [facility]; [facility] Work Phone: 07-02-2021 13:06-0400 Body weight 82.61 kg Kimberli Slarb [employer] [facility]; [facility] Work Phone: 07-02-2021 13:06-0400 Diastolic blood pressure 78 mm[Hg] Kimberli Slarb [employer] [facility]; [facility] Work Phone: Comment on above: Patient Position: Sitting; Cuff Location : Left Arm; Cuff Size: Standard 07-02-2021 13:06-0400 Heart rate 75 /min Kimberli Slarb [employer] [facility]; [facility] Work Phone: Comment on above: Pattern: Regular 07-02-2021 13:06-0400 Respiratory rate 14 /min Kimberli Slarb [employer] [facility]; [facility] Work Phone: Comment on above: Pattern: Unlabored 07-02-2021 13:06-0400 SaO2% (BldA) [Mass fraction] 98 % Kimberli Slarb [employer] [facility]; [facility] Work Phone: Comment on above: Room air 07-02-2021 13:06-0400 Systolic blood pressure 142 mm[Hg] Kimberli Leal HECTOR [facility]; [facility] Work Phone: Comment on above: Patient Position: Sitting; Cuff Location : Left Arm; Cuff Size: Standard 03-26-2021 10:47-0400 Body height 149.86 cm Stephanie Duke [facility]; [facility] Work Phone: 03-26-2021 10:47-0400 Body mass index (BMI) [Ratio] 37.17 kg/m2 Stephanie Duke [facility]; [facility] Work Phone: 03-26-2021 10:47-0400 Body surface area Derived from formula 1.78 m2 Stephanie Duke [facility]; [facility] Work Phone: 03-26-2021 10:47-0400 Body temperature 97.3 [degF] Stephanie Duke [facility]; [facility] Work Phone: Comment on above: Method: Infrared 03-26-2021 10:47-0400 Body weight 83.49 kg Stephanie Duke [facility]; [facility] Work Phone: 03-26-2021 10:47-0400 Diastolic blood pressure 80 mm[Hg] Stephanie Duke [facility]; [facility] Work Phone: Comment on above: Patient Position: Sitting; Cuff Location : Left Arm; Cuff Size: Standard 03-26-2021 10:47-0400 Heart rate 66 /min Stephanie Duke [facility]; [facility] Work Phone: Comment on above: Pattern: Regular 03-26-2021 10:47-0400 Respiratory rate 18 /min Stephanie Duke [facility]; [facility] Work Phone: Comment on above: Pattern: Unlabored 03-26-2021 10:47-0400 SaO2% (BldA) [Mass fraction] 99 % Stephanie Duke [facility]; [facility] Work Phone: Comment on above: Room air 03-26-2021 10:47-0400 Systolic blood pressure 132 mm[Hg] Stephanie Duke [facility]; [facility] Work Phone: Comment on above: Patient Position: Sitting; Cuff Location : Left Arm; Cuff Size: Standard 03-11-2021 08:21-0400 Body height 149.86 cm [facility]; [facility] Work Phone: 03-11-2021 08:21-0400 Body mass index (BMI) [Ratio] 34.95 kg/m2 [facility]; [facility] Work Phone: 03-11-2021 08:21-0400 Body surface area Derived from formula 1.73 m2 Sakina Low [facility]; [facility] Work Phone: 03-11-2021 08:21-0400 Body weight 78.5 kg Sakina Kelsey [facility]; [facility] Work Phone: 02-23-2021 08:06-0400 Body height 149.86 cm Andre Bernardo [facility]; [facility] Work Phone: 02-23-2021 08:06-0400 Body mass index (BMI) [Ratio] 34.95 kg/m2 Andre Bernardo [facility]; [facility] Work Phone: 02-23-2021 08:06-0400 Body surface area Derived from formula 1.73 m2 Andre Bernardo [facility]; [facility] Work Phone: 02-23-2021 08:06-0400 Body weight 78.5 kg Andre Bernardo [facility]; [facility] Work Phone: 12-21-2020 08:17-0400 Body height 149.86 cm Kimberli Leal [facility]; [facility] Work Phone: Comment on above: pt did not report 12-21-2020 08:17-0400 Body mass index (BMI) [Ratio] 34.95 kg/m2 Kimberli Leal [facility]; [facility] Work Phone: Comment on above: pt did not report 12-21-2020 08:17-0400 Body surface area Derived from formula 1.73 m2 Kimberli Leal LPN [facility]; [facility] Work Phone: Comment on above: pt did not report 12-21-2020 08:17-0400 Body weight 78.5 kg Kimberli Leal LPN [facility]; [facility] [...] 11:32-0400 Respiratory Rate 16 /min Andre Bernardo [employer] [facility]; [facility] Work Phone: Comment on above: Pattern: Unlabored 12-11-2020 11:32-0400 SaO2% (BldA) [Mass fraction] 98 % Andre Bernardo [facility]; [facility] Work Phone: Comment on above: Room air 12-04-2020 10:46-0400 BMI (Body Mass Index) 34.95 kg/m2 Andre Bernardo LPN [facility]; [facility] Work Phone: 12-04-2020 10:46-0400 Body weight 78.5 kg Andre Bernardo [employer] [facility]; [facility] Work Phone: 12-04-2020 10:46-0400 BSA (Body Surface Area) 1.73 m2 Andre Bernardo [employer] [facility]; [facility] Work Phone: 12-04-2020 10:46-0400 Height 149.86 cm Andre Bernardo [employer] [facility]; [facility] Work Phone: 11-20-2020 09:02-0400 BMI (Body Mass Index) 34.95 kg/m2 Sakina Kelsey [facility]; [facility] Work Phone: 11-20-2020 09:02-0400 Body weight 78.5 kg Sakina Kelsey [facility]; [facility] Work Phone: 11-20-2020 09:02-0400 BSA (Body Surface Area) 1.73 m2 Sakina Kelsey [facility]; [facility] Work Phone: 11-20-2020 09:02-0400 Height 149.86 cm [facility]; [facility] Work Phone: 05-01-2020 10:06-0400 BMI (Body Mass Index) 34.95 kg/m2 [facility]pre[facility] Work Phone: 05-01-2020 10:06-0400 Body Temperature 97.1 [degF] [facility] Work Phone: Comment on above: Method: Thermal Scan 05-01-2020 10:06-0400 Body weight 78.5 kg Sakina Low [facility] Work Phone: 05-01-2020 10:06-0400 BP Diastolic 60 mm[Hg] [facility] Work Phone: Comment on above: Patient Position: Sitting; Cuff Location : Left Arm; Cuff Size: Standard 05-01-2020 10:06-0400 BP Systolic 120 mm[Hg] [facility] Work Phone: Comment on above: Patient Position: Sitting; Cuff Location : Left Arm; Cuff Size: Standard 05-01-2020 10:06-0400 BSA (Body Surface Area) 1.73 m2 [facility] Work Phone: 05-01-2020 10:06-0400 Height 149.86 cm [facility] Work Phone: 05-01-2020 10:06-0400 Pulse (Heart Rate) 78 /min Sakina Kelsey [facility] Comprehensiv e [facility] Medicine Work Phone: Comment on above: Pattern: Regular 05-01-2020 10:06-0400 Pulse Oximetry 97 % Patt Paulinoon [facility] Work Phone: Comment on above: Room air 05-01-2020 10:06-0400 Respiratory Rate 16 /min [facility] Work Phone: Comment on above: Pattern: Unlabored 05-01-2020 10:06-0400 SaO2% (BldA) [Mass fraction] 97 % [facility]; [facility] Work Phone: Comment on above: Room air 02-12-2020 14:19-0400 BMI (Body Mass Index) 38.83 kg/m2 Stephanie Duke [facility] Work Phone: 02-12-2020 14:19-0400 Body Temperature 97.7 [degF] Stephanie Duke [facility] Work Phone: Comment on above: Method: Temporal 02-12-2020 14:-0400 Body weight 87.2 kg Stephanie Duke [facility] Work Phone: 02-12-2020 14:19-0400 BP Diastolic 74 mm[Hg] Stephanie Duke [facility] Work Phone: Comment on above: Patient Position: Sitting; Cuff Location : Left Arm; Cuff Size: Standard 02-12-2020 14:19-0400 BP Systolic 162 mm[Hg] Stephanie Duke [facility] Work Phone: Comment on above: Patient Position: Sitting; Cuff Location : Left Arm; Cuff Size: Standard 02-12-2020 14:19-0400 BSA (Body Surface Area) 1.81 m2 Stephanie Duke [facility] Work Phone: 02-12-2020 14:19-0400 Height 149.86 cm Stephanie Duke [facility] Work Phone: 02-12-2020 14:19-0400 Pulse (Heart Rate) 82 /min Stephanie Duke [facility] Work Phone: Comment on above: Pattern: Regular 02-12-2020 14:19-0400 Pulse Oximetry 95 % Patt Benita [facility] Work Phone: Comment on above: Room air 02-12-2020 14:19-0400 Respiratory Rate 18 /min Stephanie Duke [facility] Work Phone: Comment on above: Pattern: Unlabored 02-12-2020 14:19-0400 SaO2% (BldA) [Mass fraction] 95 % Stephanie Duke [facility]; [facility] Work Phone: Comment on above: Room air 07-06-2018 07:37-0400 BMI (Body Mass Index) 38.83 kg/m2 Stephanie Duke [facility] Internal Medicine Work Phone: 07-06-2018 07:37-0400 Body Temperature 97.4 [degF] Stephanie Duke CMA [facility] Internal Medicine Work Phone: Comment on above: Method: Temporal 07-06-2018 07:37-0400 Body weight 87.2 kg Stephanie Duke [facility] Internal Medicine Work Phone: 07-06-2018 07:37-0400 BP Diastolic 72 mm[Hg] Stephanie Duke [facility] Internal Medicine Work Phone: Comment on above: Patient Position: Sitting; Cuff Location : Left Arm; Cuff Size: Standard 07-06-2018 07:37-0400 BP Systolic 142 mm[Hg] Stephanie Duke [facility] Internal Medicine Work Phone: Comment on above: Patient Position: Sitting; Cuff Location : Left Arm; Cuff Size: Standard 07-06-2018 07:37-0400 BSA (Body Surface Area) 1.81 m2 Stephanie Duke [facility] Work Phone: 07-06-2018 07:37-0400 Height 149.86 cm Stephanie Duke [facility] Internal Medicine Work Phone: 07-06-2018 07:37-0400 Pulse (Heart Rate) 77 /min Stephanie Duke [facility] Internal Medicine Work Phone: Comment on above: Pattern: Regular 07-06-2018 07:37-0400 Pulse Oximetry 97 % Patt Benita [facility] Internal Medicine Work Phone: Comment on above: Room air 07-06-2018 07:37-0400 Respiratory Rate 18 /min Stephanie Duke [facility] Internal Medicine Work Phone: Comment on above: Pattern: Unlabored 07-06-2018 07:37-0400 SaO2% (BldA) [Mass fraction] 97 % Stephanie Duke [facility]; [facility] Work Phone: Comment on above: Room air 07-06-2018 07:37-0400 Weight 87.2 kg Patt Jones [facility] Work Phone: 05-16-2018 15:10-0400 BMI [...] above: Pattern: Unlabored hearing aid rt sideD delio Hensley and [...] Phone: Comment on above: hearing aid rt sideDdelio Hensley and had a glaucoma test 04-27-2018 [...] 04-27-2018 07:38-0400 Weight 88.17 kg Patt Jones [facility] Internal Medicine Work Phone: 03-23-2016 10:51-0400 BMI (Body Mass Index) 37.97 kg/m2 [facility] Work Phone: 03-23-2016 10:51-0400 Height 149.86 cm [facility] Work Phone: 03-23-2016 10:51-0400 Weight 85.28 kg [facility] Work Phone: 01-21-2016 11:25-0400 BMI (Body Mass Index) 38.05 kg/m2 Vane Manelsi [facility] Work Phone: 01-21-2016 11:25-0400 Body Temperature 98.6 [degF] Vane Juan David [facility] Work Phone: Comment on above: Method: Temporal 01-21-2016 11:25-0400 Body weight 85.45 kg Vane Perezelsi [facility] Work Phone: 01-21-2016 11:25-0400 BP Diastolic 80 mm[Hg] Vane Fall [facility] Work Phone: Comment on above: Patient Position: Sitting; Cuff Location : Left Arm; Cuff Size: Standard 01-21-2016 11:25-0400 BP Systolic 142 mm[Hg] Vane Fall [facility] Internal Medicine Work Phone: Comment on above: Patient Position: Sitting; Cuff Location : Left Arm; Cuff Size: Standard 01-21-2016 11:25-0400 BSA (Body Surface Area) 1.8 m2 Vane Fall [facility] Work Phone: 01-21-2016 11:25-0400 Height 149.86 cm Vane Fall [facility] Internal Medicine Work Phone: 01-21-2016 11:25-0400 Pulse (Heart Rate) 78 /min Vane Fall [facility] Internal Medicine Work Phone: Comment on above: Pattern: Regular 01-21-2016 11:25-0400 Pulse Oximetry 98 % Patt Jones [facility] Internal Medicine Work Phone: Comment on above: Room air 01-21-2016 11:25-0400 Respiratory Rate 16 /min Vane Fall [facility] Internal Medicine Work Phone: Comment on above: Pattern: Unlabored 01-21-2016 11:25-0400 SaO2% (BldA) [Mass fraction] 98 % Vane Fall [facility] Internal Medicine; [facility] Work Phone: Comment on above: Room air 01-21-2016 11:25-0400 Weight 85.45 kg Patt Jones [facility] Internal Medicine Work Phone: 11-02-2015 09:33-0500 BMI [...] 11-02-2015 09:33-0500 BP Systolic 162 mm[Hg] Leighann Messenger RN [facility] Work Phone: Comment [...] 09:33-0500 Pulse Oximetry 97 % Patt Jones [facility] Internal Medicine Work Phone: Comment on above: Room air 11-02-2015 09:33-0500 Respiratory Rate 18 /min Leighann Carbajal RN [facility] Work Phone: Comment on above: Pattern: Unlabored 11-02-2015 09:33-0500 SaO2% (BldA) [Mass fraction] 97 % Leighann Carbajal RN [facility] Internal Medicine; [facility] Work Phone: Comment on above: Room air 11-02-2015 09:33-0500 Weight 84.09 kg Patt Benita [facility] Internal Medicine Work Phone: 05-04-2015 09:11-0400 BMI (Body Mass Index) 37.02 kg/m2 Kimberly De Leon RN [facility] Internal Medicine Work Phone: 05-04-2015 09:11-0400 [...] 05-04-2015 09:11-0400 Pulse Oximetry 98 % Patt Jones [facility] [...] air 05-04-2015 09:11-0400 Weight 83.15 kg Patt Jones [facility] Work Phone: 07-19-2013 10:35-0500 [...] air 07-19-2013 10:35-0500 Weight 82.7 kg Patt Jones [facility] Work Phone: 05-03-2013 11:03-0400 [...] 01-17-2013 10:15-0400 Weight 87.6 kg Patt Jones [facility] Work Phone: 12-19-2012 10:44-0400 BMI (Body Mass Index) 39.59 kg/m2 Vane Elmirak [facility] Work Phone: 12-19-2012 10:44-0400 Body Temperature 98.7 [degF] Vane Elmirak [facility] Medicine Work Phone: Comment on above: Method: Temporal 12-19-2012 10:44-0400 Body weight 88.91 kg Vane Elmirak [facility] Medicine Work Phone: 12-19-2012 10:44-0400 BP Diastolic 84 mm[Hg] Vane Manchak [facility] Work Phone: Comment on above: Patient Position: Sitting; Cuff Location : Left Arm; Cuff Size: Standard 12-19-2012 10:44-0400 BP Systolic 130 mm[Hg] Vane Elmirak [facility] Work Phone: Comment on above: Patient Position: Sitting; Cuff Location : Left Arm; Cuff Size: Standard 12-19-2012 10:44-0400 BSA (Body Surface Area) 1.83 m2 Vane Elmirak [facility] Work Phone: 12-19-2012 10:44-0400 Height 149.86 cm Vane Elmirak [facility] Work Phone: 12-19-2012 10:44-0400 Pulse (Heart Rate) 68 /min Vane Fall [facility] Medicine Work Phone: Comment on above: Pattern: Regular 12-19-2012 10:44-0400 Respiratory Rate 16 /min Vane Fall [facility] Medicine Work Phone: Comment on [...] Left Arm; Cuff Size: Large 06-15-2012 09:19-0400 BSA (Body Surface Area) 1.87 m2 Leighann Carbajal RN [facility] Work Phone: 06-15-2012 09:19-0400 Height 149.86 cm Leighann Carbajal RN [facility] Work Phone: 06-15-2012 09:19-0400 Pulse (Heart Rate) 60 /min Leighann Carbajal RN [facility] Work Phone: Comment on above: Pattern: Regular 06-15-2012 09:19-0400 Respiratory Rate 16 /min Leighann Messenger RN [facility] Work Phone: Comment on above: Pattern: Unlabored 06-15-2012 09:19-0400 Weight 93.44 kg Patt Jones [facility] Work Phone: 03-08-2012 08:37-0400 BMI (Body Mass Index) 40.41 kg/m2 Leighann Carbajal RN [facility] Work Phone: 03-08-2012 08:37-0400 Body weight 90.75 kg Leighann Carbajal RN [facility] [...] 08:37-0400 Pulse (Heart Rate) 60 /min Leighann Carbaajl RN [facility] Work Phone: Comment [...] Index) 39.26 kg/m2 Kimberly De Leon RN [facility] Internal Medicine Work Phone: 07-15-2011 10:23-0500 Body Temperature 97.2 [degF] Kimberly De Leon RN [facility] Work Phone: Comment on above: Method: Oral 07-15-2011 10:23-0500 Body weight 88.18 kg Kimberly De Leon [...] 07-15-2011 10:23-0500 Weight 88.18 kg Patt Jones [facility] Internal Medicine Work Phone: 07-01-2011 09:31-0400 BMI (Body Mass Index) 39.26 kg/m2 Kimberly De Leon RN [facility] Internal Medicine Work Phone: 07-01-2011 09:31-0400 [...] Phone: Comment on above: Method: Oral 12-29-2010 10:120400 Body weight 91.26 kg Emily Meadows LPN [facility] Work Phone: 12-29-2010 10:12-0400 BP Diastolic 80 mm[Hg] Emily Meadows LPN [facility] Work Phone: Comment on above: Patient Position: Sitting; Cuff Location : Left Arm; Cuff Size: Standard 12-29-2010 10:12-0400 BP Systolic 132 mm[Hg] Emily Meadows LPN [facility] Work Phone: Comment on above: Patient Position: Sitting; Cuff Location : Left Arm; Cuff Size: Standard 12-29-2010 10:12-0400 BSA (Body Surface Area) 1.85 m2 Emily Meadows LPN [facility] Work Phone: 12-29-2010 10:12-0400 Height 149.86 cm Emily Meadows LPN [facility] Work Phone: 12-29-2010 10:12-0400 Pulse (Heart Rate) 76 /min Emily Meadows LPN [facility] Work Phone: Comment on above: Pattern: Regular 12-29-2010 10:12-0400 Pulse Oximetry 95 % Patt Jones [facility] Work Phone: Comment on above: Room air 12-29-2010 10:12-0400 Respiratory Rate 16 /min Emily Meadows HECTOR [facility] Work Phone: 12-29-2010 10:12-0400 SaO2% (BldA) [Mass fraction] 95 % Emily Meadows HECTOR [facility]; [facility] Work [...] 09-28-2010 12:05-0500 Pulse (Heart Rate) 64 /min Leighann Carbajal [...] 12-17-2008 10:40-0400 Head Circumference 0 cm Patt Benita [facility] Work Phone: 12-17-2008 10:40-0400 [...] 12-17-2008 10:40-0400 Weight 91.4 kg Patt Jones [facility] Internal Medicine Work Phone: 12-08-2008 14:36-0400 BMI (Body Mass Index) 40.39 kg/m2 Patt Jones [facility] Internal Medicine Work Phone: 12-08-2008 14:36-0400 Body weight 90.72 kg Patt Jones [facility] Internal Medicine Work Phone: 12-08-2008 14:36-0400 BP Diastolic 80 mm[Hg] Patt Jones [facility] Internal Medicine Work Phone: Comment on above: Patient Position: Supine; Cuff Location: Left Arm; Cuff Size: Standard 12-08-2008 14:36-0400 BP Systolic 132 mm[Hg] Patt Jones [facility] Internal Medicine Work Phone: Comment on above: Patient Position: Supine; Cuff Location: Left Arm; Cuff Size: Standard 12-08-2008 14:36-0400 BSA (Body Surface Area) 1.84 m2 Patt Jones [facility] Internal Medicine Work Phone: 12-08-2008 14:36-0400 Head Circumference 0 cm Patt Jones [facility] Work Phone: 12-08-2008 14:36-0400 Head Occipital-frontal circumference 0 cm Patt Jones DO Work Phone: [facility] Internal Medicine; [facility] Work Phone: 12-08-2008 14:36-0400 Height 149.86 cm Patt Jones [facility] Internal Medicine Work Phone: 12-08-2008 14:36-0400 Pulse (Heart Rate) 60 /min Patt Jones [facility] Work Phone: Comment on above: Pattern: Regular 12-08-2008 14:36-0400 Respiratory Rate 16 /min Patt Jones [facility] Work Phone: Comment on above: Pattern: Unlabored 12-08-2008 14:36-0400 Weight 90.72 kg Patt Jones [facility] Work Phone: 12-03-2008 10:18-0400 Body [...] Unlabored 12-03-2008 10:18-0400 Weight 90.72 kg Patt Jones [facility] Work [...] 04-29-2008 09:06-0400 Weight 88.11 kg Patt Jones [facility] Internal Medicine Work Phone: 03-27-2008 09:45-0400 Body weight 89.1 [facility] Work Phone: 03-27-2008 09:45-0400 BP Diastolic 92 mm[Hg] [facility] Internal Medicine Work Phone: Comment on above: Patient Position: Sitting; Cuff Location : Left Arm; Cuff Size: Standard 03-27-2008 09:45-0400 BP Systolic 140 mm[Hg] Tressa Marvell [facility] Work Phone: Comment on above: Patient Position: Sitting; Cuff Location : Left Arm; Cuff Size: Standard 03-27-2008 09:45-0400 Head Circumference 0 cm Patt Jones [facility] Internal Medicine Work Phone: 03-27-2008 09:45-0400 Head Occipital-frontal circumference 0 cm [facility]; [facility] Work Phone: 03-27-2008 09:45-0400 Height 0 cm Tressa [facility] Internal Medicine Work Phone: 03-27-2008 09:45-0400 Pulse (Heart Rate) 78 /min Tressa [facility] Internal Medicine Work Phone: Comment on above: Pattern: Regular 03-27-2008 09:45-0400 Respiratory Rate 18 /min Tressa Pedro [facility] Work Phone: Comment on [...] 01-24-2008 15:02-0400 Head Circumference 0 cm Patt Paulinoon [facility] Work Phone: 01-24-2008 15:02-0400 [...] 15:39-0500 Head Occipital-frontal circumference 0 cm Patt Benita DO Work Phone: [facility]; [facility] [...] Unlabored 10-22-2007 15:39-0500 Weight 0 kg Patt Paulinoon [facility] Work Phone: Encounters Encounter Date Encounter Type Care Provider Facility Start: 04-28-2025 Non-patient / Non-visit Dr. Alejandra Denney MD -[facility] Work Phone: Start: 04-27-2025 ambulatory Anand Butler ility:[facility] Start: 04-27-2025 End: 04-28-2025 Evaluation and management of inpatient Dr. Anand Contreras DO -Progressive Care Unit Work Phone: Start: 04-14-2025 End: 04-14-[address] Patt Jones DO Work Phone: -[facility]atory [facility] Start: 04-14-2025 End: 04-14-[address] Manisha Navas MD -[facility] Work Phone: Start: 04-14-2025 End: 04-14-2025 ambulatory Patt Jones Facility:[facility] Start: 04-02-2025 End: 04-02-2025 Emergency department patient visit Dr. Patt Jones DO Work Phone: -Emergency Department Work Phone: Start: 03-21-2025 End: 03-21-2025 Patient encounter procedure Andrés Medina [facility] -[facility] Work Phone: Start: 03-21-2025 End: 03-21-[address] Patt Jones DO Work Phone: - Clinic Start: 03-10-2025 End: 03-10-[address] Patt Jones DO Work Phone: -[facility] Start: 03-10-2025 End: 03-10-2025 Patient encounter procedure Nerissa Valenzuela PA -[facility] Work Phone: Start: 03-10-2025 End: 03-10-2025 ambulatory Patt Jones Facility:[facility] Start: 02-19-2025 End: 02-19-[address] Patt Jones DO Work Phone: [facility] Work Phone: Start: 02-19-2025 End: 02-19-[address] Patt Jones DO -Cat Scan [facility] Work Phone: Start: 02-19-2025 End: 02-19-2025 ambulatory Patt Jones Facility:[facility] Start: 01-16-2025 End: 01-16-[address] Patt Jones DO Work Phone: [facility] Work Phone: Start: 01-16-2025 End: 01-16-[address] Patt Jones DO -Ultrasound [facility] Work Phone: Start: 01-16-2025 End: 01-16-2025 ambulatory Patt Jones Facility:[facility] Start: 01-12-2025 End: 01-12-2025 Emergency department patient visit Dr. Patt Jones DO Work Phone: -Emergency Department Work Phone: Start: 01-03-2025 End: 01-03-[address] Manisha Navas MD -Laboratory, [place] Work Phone: Start: 01-03-2025 End: 01-03-2025 ambulatory Patt Benita Facility:[facility] Start: 11-22-2024 End: 11-22-[address] Patt Jones DO Work Phone: [facility] Work Phone: Start: 11-22-2024 End: 11-22-[address] Manisha Navas MD -Laboratory, [place] Work Phone: Start: 11-22-2024 End: 11-22-2024 ambulatory Manisha Navas Facility:[facility] Start: 11-04-2024 End: 11-04-[address] Negro Johnson DO -[facility] Work Phone: Start: 11-04-2024 End: 11-04-2024 [facility] Start: 09-11-2024 End: 09-11-[address] Negro Johnson DO -[facility] Work Phone: Start: 09-11-2024 End: 09-11-2024 [facility] Start: 09-10-2024 Encounter for other preprocedural examination [facility] Start: 09-05-2024 End: 09-05-[address] Manisha Navas MD -Laboratory, [place] Work Phone: Start: 09-05-2024 End: 09-05-2024 ambulatory Patt Jones Facility:[facility] Start: 08-19-2024 ambulatory Young Ng Facility:[facility] Start: 08-19-2024 Non-patient / Non-visit Dr. Oliver rodriguez MD -[facility] Start: 08-19-2024 End: 08-19-[address] Young gN MD -Cardiovascular Services Work Phone: Start: 08-19-2024 End: 08-19-2024 ambulatory Young Ng Facility:[facility] Start: 08-05-2024 End: 08-24-2024 Evaluation and management of inpatient Dr. Young Ng MD -Transitional Care Unit Start: 08-05-2024 Non-patient / Non-visit Dr. Lance Gresham MD -[facility] Work Phone: Start: 08-04-2024 Non-patient / Non-visit Dr. Judy Willson MD -[facility] Work Phone: Start: 08-03-2024 Non-patient / Non-visit Dr. Judy Willson MD -[facility] Work Phone: Start: 08-02-2024 Non-patient / Non-visit Dr. Judy Willson MD -[facility] Work Phone: Start: 08-02-2024 ambulatory Alvarez Ohara Facility :[facility] Start: 08-02-2024 Non-patient / Non-visit Alvarez Banda nd DO -[facility] Start: 08-02-2024 End: 08-02-2024 ambulatory Aisha Madison Facility:[facility] Start: 08-02-2024 End: 08-02-2024 Non-patient / Non-visit Dr. Aisha Madison MD -[facility] Work Phone: Start: 08-01-2024 Non-patient / Non-visit Dr. Judy Willson MD -[facility] Work Phone: Start: 08-01-2024 Non-patient / Non-visit Alvarez Banda nd DO -[facility] Start: 07-30-2024 End: 07-30-2024 ambulatory Jagdish Meadows Facility:[facility] Start: 07-29-2024 Encounter for other preprocedural examination Patt Jones [facility] Start: 07-26-2024 ambulatory Patt Jones Facilit y:[facility] Start: 07-26-2024 End: 08-05-2024 Evaluation and management of inpatient Dr. Lance Gresham MD -Progressive Care Unit Work Phone: Start: 07-22-2024 End: 07-22-2024 ambulatory Patt Benita Facility:[facility] Start: 07-16-2024 ambulatory Negro Borruso Facility :[facility] Start: 07-16-2024 End: 07-18-2024 [facility] Start: 07-16-2024 ambulatory Negro Borruso Facility :[facility] Start: 07-12-2024 End: 07-12-2024 ambulatory Patt Benita Facility:[facility] Start: 07-05-2024 End: 07-05-[facility] Start: 06-14-2024 End: 06-14-2024 ambulatory Ptat Benita Facility:[facility] Start: 06-06-2024 End: 06-06-2024 ambulatory Patt Benita Facility:[facility] Start: 05-29-2024 End: 05-29-2024 ambulatory Patt Benita Facility:[facility] Start: 05-10-2024 End: 05-10-2024 ambulatory Patt Benita Facility:[facility] Start: 05-09-2024 End: 05-09-2024 [facility]ulatory [facility] Start: 12-26-2023 End: 12-26-2023 ambulatory [facility] Work Phone: Start: 12-26-2023 End: 12-26-2023 Patient encounter procedure [facility]-Outpatient Breast Imaging Work Phone: Start: 12-11-2023 End: 12-11-2023 ambulatory [facility] Work Phone: Start: 12-11-2023 End: 12-11-2023 Patient encounter procedure [facility] Work Phone: Start: 09-08-2023 End: 09-08-2023 ambulatory [facility] Work Phone: Start: 09-08-2023 End: 09-08-2023 Patient encounter procedure [facility] Work Phone: Start: 06-16-2023 End: 06-16-[address] Patt Jones Work Phone: [facility] Work Phone: Start: 06-16-2023 End: 06-16-[address] Patt Jones Work Phone: [facility] Work Phone: Start: 06-03-2023 End: 06-03-2023 Emergency department [facility] Start: 04-18-2023 Non-patient / Non-visit Dr. Sudarshan Jones Work Phone: [facility] Start: 04-18-2023 End: 04-18-2023 Emergency department patient [facility] Start: 04-10-2023 Review Patt hoffmann DO Work Phone: [facility] Start: 04-10-2023 End: 04-20-2023 Nursing evaluation of patient and report Patt Jones DO Work Phone: [facility] Start: 03-22-2023 End: 03-22-[address] Patt Jones Work Phone: [facility] Work Phone: Start: 12-28-2022 End: 12-28-2022 ambulatory [facility] Work Phone: Start: 12-28-2022 End: 12-28-2022 Patient encounter procedure [facility] Start: 11-21-2022 ambulatory Patt Jones DO [facility] Start: 11-21-2022 End: 11-21-2022 Emergency department patient visit [facility]-Emergency Department Start: 09-29-2022 End: 09-29-2022 Office outpatient visit 5 minutes Patt Benita DO Work Phone: [facility] Start: 09-29-2022 End: 09-29-2022 ambulatory [facility] Work Phone: Start: 09-29-2022 End: 09-29-2022 Patient encounter procedure [facility] Start: 07-06-2022 End: 07-06-2022 ambulatory [facility] Work Phone: Start: 07-06-2022 End: 07-06-2022 Patient encounter procedure [facility] Start: 04-07-2022 End: 04-07-[address] aPtt Jones Work Phone: [facility] Start: 03-30-2022 End: 03-30-2022 Office outpatient visit 5 minutes Patt Benita DO Work Phone: [facility] Start: 01-28-2022 End: 01-28-2022 Phone Encounter Patt Jones DO Work Phone: [facility] Start: 01-26-2022 End: 01-26-2022 Office outpatient visit 15 minutes Patt Benita DO Work Phone: [facility] Start: 01-19-2022 End: 01-19-[address] Patt Jones Work Phone: [facility] Start: 01-11-2022 End: 01-11-2022 Patient encounter procedure [facility] Start: 11-24-2021 End: 11-24-2021 [facility] Start: 11-03-2021 End: 11-03-2021 Phone Encounter Patt Benita DO Work Phone: [facility] Start: 10-18-2021 End: 10-18-2021 Patient encounter procedure [facility] Start: 09-28-2021 End: 10-09-2021 Office outpatient visit 5 minutes Patt Benita DO Work Phone: [facility] Start: 09-28-2021 Review Patt Fearo n DO Work Phone: [facility] Start: 08-13-2021 End: 08-13-2021 Annotation/Addendum Patt Benita DO Work Phone: [facility] Start: 08-11-2021 Patient encounter procedure [facility] Start: 07-21-2021 End: 07-21-2021 Annotation/Addendum Patt Benita DO Work Phone: [facility] Start: 07-02-2021 End: 07-02-2021 Office outpatient visit 25 minutes Patt Benita DO Work Phone: [facility] Start: 03-31-2021 End: 04-01-2021 Office outpatient visit 5 minutes Patt Benita DO Work Phone: [facility] Start: 03-26-2021 End: 03-26-2021 Office outpatient visit 25 minutes Patt Benita DO Work Phone: [facility] Start: 03-11-2021 Review Patt Fearo n DO Work Phone: [facility] Start: 02-23-2021 End: 02-23-2021 Office outpatient visit 15 minutes Patt Benita DO Work Phone: [facility] Start: 02-22-2021 End: 02-22-2021 Annotation/Addendum Patt Benita DO Work Phone: [facility] Start: 12-22-2020 End: 12-21-2020 Office outpatient visit 15 minutes Patt Benita DO Work Phone: [facility] Start: 12-11-2020 End: 12-11-2020 Office outpatient visit 25 minutes Patt Benita [facility] Start: 12-08-2020 End: 12-08-2020 Annotation/Addendum Patt Jones [facility] Start: 12-04-2020 End: 12-04-2020 Office outpatient visit 15 minutes [facility] Start: 11-20-2020 End: 11-20-2020 Office outpatient visit 15 minutes Patt Jones [facility] Start: 05-01-2020 End: 05-01-2020 Office outpatient visit 15 minutes Patt Jones [facility] Start: 05-01-2020 Review Patt Benita [facility] Start: 05-01-2020 Review Patt Benita [facility] Start: 02-12-2020 End: 02-12-2020 Office outpatient visit 25 minutes Patt Jones [facility] Start: 02-12-2020 End: 02-12-2020 Physical examination Patt Jones DO Work Phone: [facility] Start: 10-05-2018 End: 10-05-2018 Phone Encounter Patt [facility] Start: 07-06-2018 End: 07-06-2018 Office outpatient visit 15 minutes Patt Jones [facility] Start: 05-16-2018 End: 05-16-2018 Patient encounter procedure Leighann Carbajal RN [facility]; [facility] Work Phone: Start: 05-16-2018 End: 05-16-2018 Periodic preventive med est patient 65yrs& older Patt Jones [facility] Start: 04-27-2018 End: 04-27-2018 Office outpatient visit 25 minutes Patt Jones [facility] Start: 06-10-2016 End: 06-10-2016 Office outpatient visit 5 minutes Patt Jones [facility] Start: 01-21-2016 End: 01-21-2016 Office outpatient visit 25 minutes Patt [facility] Start: 11-02-2015 End: 11-02-2015 Office outpatient visit 25 minutes Patt Jones [facility] Start: 09-25-2015 End: 09-25-2015 Phone Encounter Patt Jones [facility] Start: 05-04-2015 End: 05-04-2015 Patient encounter status Patt Jones DO Work Phone: [facility] Start: 05-04-2015 End: 05-04-2015 Periodic preventive med est patient 40-64yrs Patt Jones [facility] Start: 04-13-2015 End: 04-13-2015 Phone Encounter Patt Jones [facility] Start: 06-13-2014 End: 06-13-2014 Office outpatient visit 5 minutes Patttalia Jones [facility] Start: 07-19-2013 End: 07-19-2013 Patient encounter Patt Jones [facility] Start: 07-03-2013 End: 07-03-2013 Phone Encounter Patt Jones [facility] Start: 05-03-2013 End: 05-03-2013 Patient encounter Patt Jones [facility] Start: 01-17-2013 End: 01-17-2013 Patient encounter Patt Jones [facility] Start: 12-19-2012 End: 12-19-2012 Office outpatient visit 25 minutes Patttalia Jones [facility] Start: 06-15-2012 End: 06-15-2012 Patient encounter Patt Jones [facility] Start: 03-08-2012 End: 03-08-2012 Patient encounter Patt Jones [facility] Start: 03-08-2012 End: 03-08-2012 Patient encounter status Patt Jones DO Work Phone: [facility] Start: 01-20-2012 End: 01-23-2012 Patient encounter Patt Jones [facility] Start: 07-15-2011 End: 07-15-2011 Annotation/Addendum Patttalia Jones [facility] Start: 07-15-2011 End: 07-15-2011 Office outpatient visit 15 minutes Patttalia Jones [facility] Start: 07-01-2011 End: 07-01-2011 Patient encounter Patt Jones [facility] Start: 05-25-2011 End: 05-25-2011 Patient encounter Patt Jones [facility] Start: 12-29-2010 End: 12-29-2010 Office outpatient visit 15 minutes Patt Benita [facility] Start: 12-22-2010 End: 12-23-2010 Patient encounter Patt Jones [facility] Start: 11-30-2010 End: 11-30-2010 Patient encounter Patt Jones [facility] Start: 11-30-2010 End: 11-30-2010 Patient encounter status Patt Jones DO Work Phone: [facility] Start: 11-22-2010 End: 11-22-2010 Patient encounter Patt Jones [facility] Start: 09-28-2010 End: 09-28-2010 Patient encounter Patt Jones [facility] Start: 08-02-2010 End: 08-02-2010 Patient encounter Patt Jones [facility] Start: 01-23-2009 End: 01-28-2009 Patient encounter Patt Jones [facility] Start: 01-08-2009 End: 01-08-2009 Office outpatient visit 25 minutes Patt Jones [facility] Start: 12-17-2008 End: 12-17-2008 Patient encounter Patt Jones [facility] Start: 12-17-2008 End: 12-17-2008 Patient encounter status Patt Jones DO Work Phone: [facility] Start: 12-08-2008 End: 12-08-2008 Patient encounter Patt oJnes [facility] Start: 12-03-2008 End: 12-03-2008 Patient encounter Patt Jones [facility] Start: 05-30-2008 End: 05-30-2008 Patient encounter Patt Jones [facility] Start: 04-29-2008 End: 04-29-2008 Office outpatient visit 15 minutes Patt Benita [facility] Start: 03-27-2008 End: 03-27-2008 Office outpatient visit 15 minutes Patt Jones [facility] Start: 02-26-2008 End: 02-26-2008 Patient encounter Patt Jones [facility] Start: 01-24-2008 End: 01-24-2008 Office outpatient visit 15 minutes Patttalia Jones [facility] Start: 10-22-2007 End: 10-22-2007 Patient encounter Patt Jones [facility] Patient encounter procedure Kimberli Leal [facility] Work Phone: Patient encounter procedure Andre Bernardo [facility] Work Phone: Patient encounter procedure Kimberli Leal GRINDER TENDER [facility]; [facility] Work Phone: Patient encounter procedure Stephanie Duke EQUIPMENT LEAD [facility]; [facility] Work Phone: Physical examination Kimberli Terryrb GRINDER TENDER [facility]; [facility] Work Phone: Physical examination Andre Bernardo GRINDER TENDER [facility]; [facility] Work Phone: Physical examination Kimberli Slarb GRINDER TENDER [facility]; [facility] Work Phone: Physical examination Stephanie Duke EQUIPMENT LEAD [facility]; [facility] Work Phone: Procedures Date Procedure Procedure Detail Performing Clinician Start: 04-28-[address] Kalie Jones DO Work Phone: Start: 04-27-[address] Laura Jones DO Work Phone: Start: 04-27-2025 Computed tomography of abdomen and pelvis with intravenous contrast Dr. Patt Jones DO Work Phone: Start: 04-02-2025 End: 04-02-2025 Urnls dip stick/tablet [...] 07-28-2024 Plain X-ray of hip Dr. Patt Joens DO Work Phone: Start: 07-28-2024 Total replacement [...] Department Summary Procedure Note: See Note; NOTES: [facility] Medical Records Department [address] [place] [address] Emergency Department Summary 06/03/23 MR#: [id number] Acct: [id number] Name: GUNJAN CONNELL Rep #: [id number] : 1955 68 From: Ramu Romero MD [...] lately, thinks maybe she is favoring it. [facility] Medical History Cochlear implant in place Hx [...] 74.8 H Lymph % (Auto) 12.5 L [place] % (Auto) 12.1 H Eos % (Auto) [...] EDT , Management Discussion w/another healthcare provider: Acquisition Specialist (Valentino Blankenship) Procedures Other Procedures Procedure(s): Left [...] your Primary Care Provider. Call [facility] ([phone]) or report to the closest Emergency Room. Call 911 if necessary. 06/03/23 1816 <Electronically signed by Ramu Romero MD> Cosigner Signature (if applicable): CC: Dr. Patt Jones DO Signed Patt Jones DO Work Phone: Start: 06-03-2023 End: 06-03-2023 Ankle min 3 Views Procedure Note: See Note; NOTES: [facility] Imaging Services [address] [place] [address] Ankle min 3 Views MR#: [id number] Acct: [id number] Name: GUNJAN CONNELL Rep #: [id number] : 1955 F 68 From: Johan Tejada MD PCP: Dr. Patt Jones DO Status: PRE ER Study: Ankle min 3 Views Date of Exam: 06/03/23 Exam# [id number] Ordering Dr: Swati Farrar [id number] STUDY: X-RAY - LEFT ANKLE REASON FOR [...] Johan Tejada MD at 16:36 EDT , CC: Dr. Patt Jones DO; ED PHYSICIAN PROVIDER Plateman: Signed Patt Jones DO Work Phone: Start: 06-03-[address] Patt Jones Work Phone: Start: 04-18-2023 End: 04-18-2023 Foot min 3 Views Procedure Note: See Note; NOTES: [facility] Imaging Services [address] [place] [address] Foot min 3 Views MR#: [id number] Acct: [id number] Name: GUNJAN CONNELL Rep #: [id number] : 1955 F 68 From: Beni Robertson MD PCP: Dr. Patt Jones DO Status: REG ER Study: Foot min 3 Views Date of Exam: 04/18/23 Exam# [id number] Ordering Dr: Regi Bunch DO STUDY: X-RAY [...] Regi Bunch DO; Dr. Patt Jones DO Plateman: Signed Patt Jones DO Work Phone: Start: 04-18-2023 X-ray of both feet Dr. Patt Jones Work Phone: Start: 04-18-2023 End: 04-19-2023 Emergency Department Summary Procedure Note: See Note; NOTES: [facility] Medical Records Department [address] [place] [address] Emergency Department Summary 04/18/23 MR#: [id number] Acct: [id number] Name: GUNJAN CONNELL Rep #: [id number] : 1955 68 From: Regi Bunch DO PCP: Dr. Patt Jones DO Status:[facility] ER Location: ED HPI History of Present [...] her arthritis. She does not see a director of cardiopulmonary services. She notes she has been seen in [...] was treated with a short course of [place] and a burst of prednisone. X-ray of the ankle showed arthritis. Patient had EMG in November 2021 of the upper extremities for numbness and tingling in both hands. Was largely normal with no signs of cervical radiculopathy. [facility] Medical History Cochlear implant in place Hx [...] this. As we discussed you can use gwgp-yyt-dijkjzu Salonpas/Lidoderm patches (I recommend 4% extra strength [...] your Primary Care Provider. Call [facility] ([phone]) or report to the closest Emergency Room. Call 911 if necessary. 04/19/23 0033 <Electronically signed by Regi Bunch DO> Cosigner Signature (if applicable): CC: Dr. Patt Jones DO Signed Patt Jones DO Work Phone: Start: 04-18-2023 End: 04-18-2023 Venous Duplex US, Unilateral Procedure Note: See Note; NOTES: [facility] Cardiovascular Services [address] [place] [address] Venous Duplex US, Unilateral 04/18/23 1451 MR#: [id number] Acct: [id number] Name: GUNJAN CONNELL Rep #: [id number] : 1955 68 From: Jose Manuel Wagner [...] preliminary report was called and/or faxed to Thelma - SWATI RN responsible for patient. VL/Venous Duplex US, [...] DO Date Dictated: 04/18/23 1451 Date Transcribed: 04/18/23 1534 Plateman: Signed Patt Jones DO Work Phone: Start: 04-18-2023 End: 04-18-2023 Chest without Contrast Procedure Note: See Note; NOTES: [facility] Imaging Services [address] [place] [address] Chest without Contrast MR#: [id number] Acct: [id number] Name: GUNJAN CONNELL Rep #: [id number] : 1955 F 68 From: James donaldson MD PCP: Dr. Patt Jones DO Status: REG ER Study: Chest without Contrast Date of Exam: 04/18/23 Exam# [id number] Ordering Dr: Beni Viveros DO STUDY: CT [...] Beni Viveros DO; Dr. Patt Jones DO Plateman: Signed Patt Jones DO Work Phone: Start: 04-18-2023 CT of chest without contrast Dr. Ender Jones Work Phone: Start: 11-21-2022 End: 11-21-2022 Emergency Department Summary Procedure Note: See Note; NOTES: [facility] Medical Records Department [address] [place] [address] Emergency Department Summary 11/21/22 MR#: [id number] Acct: [id number] Name: GUNJAN CONNELL Rep #: [id number] : 1955 67 From: Ashwin Valencia MD PCP: Dr. Patt Jones DO Status:REG ER Location: ED HPI History [...] the plane started. She will be given Ouzinkie here for pain. Started on prednisone 40 [...] your ankle to decrease pain and swelling. Ouzinkie for pain. Do not drive while taking [...] your Primary Care Provider. Call [facility] ([phone]) or report to the closest Emergency Room. Call 911 if necessary. 11/21/22 0354 <Electronically signed by Ashwin Valencia MD> Cosigner Signature (if applicable): CC: Dr. Patt Jones DO Signed Patt Jones DO Work Phone: Start: 11-21-2022 End: 11-21-2022 Ankle min 3 Views Procedure Note: See Note; NOTES: [facility] Imaging Services [address] [facility] [facility] [place] [address] Ankle min 3 Views MR#: [id number] Acct: [id number] Name: GUNJAN CONNELL Rep #: [id number] : 1955 F 67 From: Imelda Rowe PCP: Dr. Patt Jones DO Status: REG ER Study: Ankle min 3 Views Date of Exam: 11/21/22 Exam# [id number] Ordering Dr: Ashwin Valencia MD INDICATION: pain [...] Ashwin Valencia MD; Dr. Patt Jones DO Plateman: Signed Patt Jones DO Work Phone: Start: 11-21-2022 Radiography of ankle Start: 01-19-2022 Radiologic examination of knee Dr. Kalie Jones Work Phone: Start: 01-19-2022 End: 01-19-2022 Knee 3 Views Comments: See Note; NOTES: [facility] Radiology [address] [place] [address] Knee 3 Views MR#: [id number] Acct: [id number] Name: GUNJAN CONNELL Rep #: [id number] : 1955 F 66 From: Yovani Rowe PCP: Dr. Patt Jones DO Status: DEP AMB Study: Knee 3 Views Date of Exam: 01/19/22 Exam# [id number] Ordering Dr: Negro Johnson DO STUDY: XR [...] 17:52 EDT Reading Location ID and State: [facility] / [place] , Service support , CC: Dr. Negro Johnson DO; Dr. Patt Jones DO Plateman: Signed Patt Jones DO Work Phone: Start: 01-19-2022 End: 01-19-2022 Knee 4 or More Views Comments: See Note; NOTES: [facility] Radiology [address] [place] [address] Knee 4 or More Views MR#: [id number] Acct: [id number] Name: GUNJAN CONNELL Rep #: [id number] : 1955 F 66 From: Yovani Rowe PCP: Dr. Patt Jones DO Status: DEP AMB Study: Knee 4 or More Views Date of Exam: 01/19/22 Exam# [id number] Ordering Dr: Negro Johnson DO STUDY: XR [...] Signed: Yovani Herrera MD at 17:53 EDT Reading Location ID and State: [facility] / [place] , Service support , CC: Dr. Negro Johnson DO; Dr. Patt Jones DO Plateman: Signed Patt Jones DO Work Phone: Start: 01-19-2022 End: 01-19-2022 Orthopedic Visit Report Comments: See Note; NOTES: [facility] [address] [place] [address] OFFICE VISIT Date of Service: 01/19/22 MR#: [id number] Acct: [id number] Name: GUNJAN CONNELL Rep #: [id number] : 1955 Provider: Dr. Negro baker DO Age/Sex: 66/F Location: [facility] Status: Signed Intake Vital Signs 01/19/22 13:56 Height 4 ft 11 in Weight: 172 lb BMI 34.7 Intake Visit Reasons: Bilat knees Director Of Flight Operations Required: No Accompanied by: self Is patient [...] made by me, Dr. Negro Johnson, DO 01/19/22 1341. GUNJAN CONNELL is a [...] 4 or More Views Today M25.562 01/19/22 1505 <Electronically signed by Negro Johnson DO> Date Negro Johnson DO Cosigner Signature: Date (if applicable) CC: DO Patt Fernandez DO Work Phone: Start: 11-24-2021 End: 11-24-2021 NCS and/or EMG Patient Comments: See Note; NOTES: [facility]monary Services/Neurology [address] [place] [address] MR#: [id number] Acct: [id number] Name: GUNJAN CONNELL Rep #: [id number] : 1955 66 From: Vivian Laboy MD Referring Dr: Manisha Navas MD Status: REG CLI Location: [facility] Date: 11/24/21 Sex: F C NCS and/or [...] is no electrodiagnostic evidence for cervical radiculopathy. 11/24/212 <Electronically signed by Vivian Laboy MD> Date Vivian Laboy MD CC: Dr. Vivian Laboy MD; Dr. Patt Jones DO; Dr. Manisha Navas MD Date Dictated: 11/24/211320 Date Transcribed: 11/24/211320 Plateman: AA Signed Patt Jones DO Work Phone: Start: 07-15-2021 End: 07-15-2021 Cerv Spine 2 or 3 Views Comments: See Note; NOTES: [facility] Imaging Services [address] [place] [address] Cerv Spine 2 or 3 Views MR#: [id number] Acct: [id number] Name: GUNJAN CONNELL Rep #: [id number] : 1955 F 66 From: Blanca Rios MD PCP: Dr. Patt Jones DO Status: REG ER Study: Cerv Spine 2 or 3 Views Date of Exam: 07/15/21 Exam# [id number] Ordering Dr: Perry Stern DO STUDY: X-RAY [...] Patt Jones DO; Dr. Perry Stern DO Plateman: Signed Patt Jones DO Work Phone: Start: 07-15-2021 End: 07-15-2021 Emergency Department Summary Comments: See Note; NOTES: [facility] Medical Records Department [address] [place] [address] Emergency Department Summary 07/15/21 MR#: [id number] Acct: [id number] Name: GUNJAN CONNELL Rep #: [id number] : 1955 66 From: Perry Stern DO [...] Patient has chronic numbness in her hands. PFSH PFS Medical History (Updated 07/15/21 @ 11:07 by [...] Negro Johnson DO) Smoking Status: Never smoker ROS ROS [...] the bicep, tricep, brachioradialis. Patient has normal wiener packer strength bilaterally. General: tenderness Chest Wall inspection [...] compression fractures. Case was discussed with her painting technician who asked that I start patient on [...] your Primary Care Provider. Call [facility] ([phone]) or report to the closest Emergency Room. Call 911 if necessary. 07/15/21 1633 <Electronically signed by Perry Stern DO> Cosigner Signature (if applicable): CC: Dr. Patt Jones DO Signed Patt Jones DO Work Phone: Start: 06-18-2021 End: 06-25-2021 Spine Lumbar (Routine) Comments: See Note; NOTES: [facility] Imaging Services [address] [place] [address] Spine Lumbar (Routine) MR#: [id number] Acct: [id number] Name: GUNJAN CONNELL Rep #: [id number] : 1955 F 66 From: Lisa Rowe PCP: Dr. Patt Jones DO Status: REG CLI Study: Spine Lumbar (Routine) Date of Exam: 06/18/21 Exam# [id number] Ordering Dr: Moy Payne MD STUDY: MRI [...] Moy Payne MD; Dr. Patt Jones DO Plateman: Signed Patt Jones DO Work Phone: Start: 03-18-2021 End: 03-23-2021 Dexa Bone Density Study Comments: See Note; NOTES: [facility] Imaging Services [address] [place] [address] Dexa Bone Density Study MR#: [id number] Acct: [id number] Name: GUNJAN CONNELL Rep #: [id number] : 1955 F 66 From: James donaldson MD PCP: Dr. Patt Jones, DO Status: REG CLI Study: Dexa Bone Density Study Date of Exam: 03/18/21 Exam# [id number] Ordering Dr: Sally Ellis NP PRESCHOOL TEACHER AIDE-C STUDY: DUAL ENERGY X-RAY ABSORPTIOMETRY / DXA [...] CC: LAWRENCE Ellis; Dr. Patt Jones DO Plateman: Signed Sally Ellis [facility] Work Phone: Start: 03-18-2021 End: 03-18-2021 SCRN MAMM (CAD)W/BURAK BILAT Comments: See Note; NOTES: [facility] Imaging Services [address] [place] [address] SCRN MAMM (CAD)W/BURAK BILAT MR#: [id number] Acct: [id number] Name: BECKI,GUNJAN J Rep #: [id number] : 1955 F 66 From: James donaldson MD PCP: Dr. Patt Jones DO Status: REG CLI Study: SCRN MAMM (CAD)W/BURAK BILAT Date of Exam: 03/04 01/22 Exam# [id number] Ordering Dr: Sally Ellis NP PRESCHOOL TEACHER AIDE-C MAMMOGRAPHY - BILATERAL SCREENING REASON FOR EXAM: Female, 66 years old. Routine annual screening examination. PERTINENT HISTORY: Sisters with breast cancer. TECHNIQUE: Digital bilateral breast burak (3D mammographic acquisition) in the CC and [...] change since the prior study. BI/SCRN MAMM (CAD)W/BURAK BILAT IMPRESSION: Stable bilateral screening mammogram. Yearly follow-up mammogram recommended. (A) ASSESSMENT CATEGORY: BIRADS Category 2: Benign. A letter regarding these results will be sent to the patient by the facility within 30 days. Approximately 10% of breast cancers are not detected by mammography. A normal mammogram should not delay biopsy of a clinically suspicious abnormality. [id number] Electronically Signed: James Price MD at 12:45 EDT , Service support , CC: PRESCHOOL TEACHER AIDE-Erwin Ellis; Dr. Patt Jones DO Plateman: Signed Sally Ellis [facility] Work Phone: Start: 02-17-2021 End: 02-17-2021 Lumbar Spine 2 or 3 Views Comments: See Note; NOTES: [facility] Radiology [address] [place] [address] Lumbar Spine 2 or 3 Views MR#: [id number] Acct: [id number] Name: GUNJAN CONNELL Rep #: [id number] : 1955 F 65 From: Anderson Jones MD PCP: Dr. Patt Jones DO Status: DEP AMB Study: Lumbar Spine 2 or 3 Views Date of Exam: Exam# [id number] Ordering Dr: Conrad Beasley DO STUDY: X-RAY [...] Patt Jones DO; Dr. Conrad Beasley DO Plateman: Signed Conrad Beasley Work Phone: Start: 02-17-2021 End: 02-17-2021 Orthopedic Visit Report Comments: See Note; NOTES: [facility] [address] [place] [address] OFFICE VISIT Date of Service: 02/17/21 MR#: [id number] Acct: [id number] Name: GUNJAN CONNELL Rep #: [id number] : 1955 Provider: Dr. Conrad hoffmann DO Age/Sex: 65/F Location[place] [facility] Status: Signed Intake Vital Signs 02/17/21 13:29 [...] DAILY #9 tablet 11/19/20 [Rx Confirmed 02/17/21] PFSH Medical History (Updated 02/17/21 @ 14:[address] Conrad Beasley DO) Cochlear implant in place Hx of cataract Tonsillectomy planned Surgical History (Updated 02/17/21 @ 13:29 by Sue Benson) History of carpal tunnel release of both wrists Hx of arthroscopy of right knee Hx of cholecystectomy Hx of removal of cyst Social History (Updated 10/28/20 @ 12:[address] Negro Johnson DO) Smoking Status: Never smoker HPI lumbar spine [...] tried Gabapentin, Flexeril, Medrol dose pack and Ouzinkie in 12/2020 as directed and the medications [...] will discuss this with Dr. Jones her shipper and receiving. Perhaps she will know about 1 of [...] Conrad Beasley DO> Date Conrad Beasley DO Cosign Signature: Date (if applicable) CC: DO Patt Fernandez DO Work Phone: Start: 12-14-2020 End: 12-14-2020 L/S Spine Min 4 Views Comments: See Note; NOTES: [facility] Imaging Services [address] [place] [address] L/S Spine Min 4 Views MR#: [id number] Acct: [id number] Name: GUNJAN CONNELL Rep #: [id number] : 1955 F 65 From: Anderson Jones MD PCP: Dr. Patt Jones DO Status: REG CLI Study: L/S Spine Min 4 Views Date of Exam: 12/14/20 Exam# [id number] Ordering Dr: Sally Ellis NP PRESCHOOL TEACHER AIDE-C STUDY: X-RAY - LUMBAR SPINE REASON FOR [...] CC: LAWRENCE Ellis; Dr. Patt Jones DO Plateman: Signed Sally Ellis Work Phone: Start: 11-19-2020 End: 11-19-2020 Emergency Department Summary Comments: See Note; NOTES: [facility] Medical Records Department [address] [place] [address] Emergency Department Summary 11/19/20 MR#: [id number] Acct: [id number] Name: GUNJAN CONNELL Rep #: [id number] : 1955 65 From: Cristo Finn MD [...] Impression: Sciatica This note was generated with Wedia dictation software. It may contain incorrect words, [...] your Primary Care Provider. Call [facility] ([phone]) or report to the closest Emergency Room. Call 911 if necessary. 11/19/20 0655 <Electronically signed by Cristo Finn MD> Date Cristo Finn MD Cosigner Signature (If Indicated): Date CC: Dr. Patt Jones, ADDENDUM by Dr. Vasyl Ribeiro DO on [...] tolerated morphine it safe to provide her [place] for pain at home. She will be given a prescription for this as well as a short burst of prednisone. Patient amenable to this plan. She is given return precautions. Patient able discharge at this time. 11/19/20 0822 Date Vasyl Ribeiro DO cc: Dr. Patt Jones DO * Signed Patt Jones Start: 10-28-2020 End: 10-28-2020 Knee 3 Views Comments: See Note; NOTES: [facility] Radiology [address] [place] [address] Knee 3 Views MR#: [id number] Acct: [id number] Name: GUNJAN CONNELL Rep #: [id number] : 1955 F 65 From: Richadr Rowe PCP: Dr. Patt Jones DO Status: DEP AMB Study: Knee 3 Views Date of Exam: 10/28/20 Exam# [id number] Ordering Dr: Negro Johnson DO STUDY: X-RAY [...] Negro Johnson DO; Dr. Patt Jones DO Plateman: Signed Patt Jones Start: 10-28-2020 End: 10-28-2020 Knee 4 or More Views Comments: See Note; NOTES: [facility] Radiology [address] [place] [address] Knee 4 or More Views MR#: [id number] Acct: [id number] Name: GUNJAN CONNELL Rep #: [id number] : 1955 F 65 From: Richard Rowe PCP: Dr. Patt Jones DO Status: DEP AMB Study: Knee 4 or More Views Date of Exam: 10/28/20 Exam# [id number] Ordering Dr: Negro Johnson DO STUDY: X-RAY [...] Negro Johnson DO; Dr. Patt Jones DO Plateman: Signed Patt Jones Start: 10-28-2020 End: 10-28-2020 L/S Spine Min 4 Views Comments: See Note; NOTES: [facility] Radiology [address] [place] [address] L/S Spine Min 4 Views MR#: [id number] Acct: [id number] Name: GUNJAN CONNELL Rep #: [id number] : 1955 F 65 From: Johan Tejada MD PCP: Dr. Patt Jones DO Status: DEP AMB Study: L/S Spine Min 4 Views Date of Exam: 10/28/20 Exam# [id number] Ordering Dr: Negro Johnson DO STUDY: X-RAY [...] Negro Johnson DO; Dr. Patt Jones DO Plateman: Signed Patt Jones Start: 10-28-2020 End: 10-28-2020 Orthopedic Visit Report Comments: See Note; NOTES: [facility] [address] [place] [address] OFFICE VISIT Date of Service: 10/28/20 MR#: [id number] Acct: [id number] Name: GUNJAN CONNELL Rep #: [id number] : 1955 Provider: Dr. Negro baker DO Age/Sex: 65/F [place] [facility] Status: Signed Intake Intake Visit Reasons: RIGHT [...] made by me, Dr. Negro Johnson DO 10/28/20 2066. GUNJAN CONNELL is a 65 year old [...] denies any injections into her left knee. [place] [facility] Reports joint pain, Reports tingling Skin/Breast Reports [...] Manufactu rer 40 mg intra-articular left knee [id number] 12/03/21 1245-1758-26 PHARMACI/PFIZER Supplemental Info 10/28/2020 x-ray right knee:Status [...] Compression fracture Lumbar radiculopathy M54.16 Additional Codes child nurse.knee ([id number]) 10/28/20 1229 <Electronically signed by Negro Johnson DO> Date Negro Johnson DO Cosigner Signature: Date (if applicable) CC: Patt Jones Start: 07-12-2020 End: 07-12-2020 Emergency Department Summary Comments: See Note; NOTES: [facility] Medical Records Department [address] [place] [address] Emergency Department Summary 07/12/20 MR#: [id number] Acct: [id number] Name: GUNJAN CONNELL Rep #: [id number] : 1955 65 From: Phill JIMENEZ PCP: Dr. Patt Jones DO Status:REG ER History of Present Illness [...] evaluated independently and in conjunction with physician personal banking assistant. Agree with notes above unless documented otherwise. [...] TID #1 drops.susp Transmission Status: Received by [facility]/pharmacy #[id number] Referrals: Patt Jones DO [Primary Care Provider] - Oliver France MD [STAFF PHYSICIAN] - As soon as possible What to do if you have Problems For any increased pain, shortness of breath, bleeding, nausea or vomiting, chest pain, or any unexpected problems, contact your Primary Care Provider. Call [facility] ([phone]) or report to the closest Emergency Room. Call 911 if necessary. 07/12/20 1015 <Electronically signed by Phill JIMENEZ> Date Phill JIMENEZ 07/12/20 1028<Electronically signed by Ramu Romero MD> Cosigner Signature (If Indicated): Date Ramu Romero MD CC: Dr. Patt Jones, DO Patt Jones Start: 05-22-2020 End: 05-22-2020 PT D/C of Non Returning Pt (1) Comments: See Note; NOTES: [facility] Therapy [facility] [address] [place] [address] / REHABILITATION SERVICES DISCHARGE SUMMARY MR#: [id number] Acct: [id number] Name: GUNJAN CONNELL Rep #: [id number] : 1955 65 From: Kimberli FAIR Referring Dr.: Dr. Negro Johnson, Status: R EG RCR Insurance: [facility] MEDICARE SENIOR [employer] SELF PAY INSURANCE GUNJAN [...] regarding their Physical therapy will appear below: DC PT At this point I will be discontinuing this patient from physical therapy. I would be happy to see this patient again in the future if found appropriate by the physician. Thank you! MARV Horn <Electronically signed by Kimberli Vergara MPT> 05/22/20 1605 CC: Dr. Negro Johnson DO; Dr. Patt Jones DO Signed Patt Jones Start: 04-13-2020 End: 04-13-2020 Orthopedic Visit Report Comments: See Note; NOTES: [facility] [address] [place] [address] OFFICE VISIT Date of Service: 04/13/20 MR#: [id number] Acct: [id number] Name: GUNJAN CONNELL Rep #: [id number] : 1955 Provider: Dr. Negro baker DO Age/Sex: 65/F [place] [facility] Status: Signed Intake Intake Visit Reasons: RIGHT KNEE Allergies No Known Allergies Allergy (Verified 03/22/20 09:49) [facility] Social History (Updated 04/13/20 @ 14:03 by [...] She had been doing PT here at [facility]. Recommended additional PT for ROM. Recommended taking Mobic which we will send into pharmacy today. Follow up in 6 weeks or sooner if pain, swelling, numbness or associated symptoms, or concerns develop. All questions answered. Patient in agreement of plan. Coding Level of Care Code Global Post Op Diagnoses Orthopedic aftercare Z47.89 04/13/20 1408 <Electronically signed by Negro Johnson DO> Date Negro Johnson Cosignyoan Signature: (if applicable) CC: Patt Jones Start: 03-22-2020 End: 03-22-2020 Discharge Instruction Comments: See Note; NOTES: [facility] Medical Records Department [address] [facility] [place] [address] Discharge Instruction 03/22/20 MR#: [id number] Acct: [id number] Name: GUNJAN CONNELL Rep #: [id number] : 1955 65 From: Perry Stern DO PCP: Dr. Patt Jones DO Status:PRE ER ED Disposition - Plan for ED Patient: Instructions: ED Spasm Back No Trauma, ED LUMBAR SPRAIN/STRAIN Prescriptions: Diazepam [Valium] 2 mg PO TID PRN PRN #20 tablet PRN Reason: Vertigo Transmission Status: Received by [facility]/pharmacy #[id number] Referrals: Patt Jones DO [Primary Care Provider] - 3-5 Days What to do if you have Problems For any increased pain, shortness of breath, bleeding, nausea or vomiting, chest pain, or any unexpected problems, contact your Primary Care Provider. Call [facility] ([phone]) or report to the closest Emergency Room. Call 911 if necessary. 03/22/20 1200 <Electronically signed by Perry Stern DO> Date Perry Fitch Signature (If Indicated): Date CC: DO Patt Fernandez Start: 03-22-2020 End: 03-22-2020 Emergency Department Summary Comments: See Note; NOTES: [facility] Medical Records Department [address] [place] [address] Emergency Department Summary 03/22/20 MR#: [id number] Acct: [id number] Name: GUNJAN CONNELL Rep #: [id number] : 1955 65 From: Perry Stern DO [...] [Lumbar strain] This note was generated with Wedia dictation software. It may contain incorrect words, spelling, and punctuation that were not noted in review of the chart prior to signing ED Disposition - Plan for ED Patient: Referrals: Patt Jones, [Primary Care Provider] - What to do if you have Problems For any increased pain, shortness of breath, bleeding, nausea or vomiting, chest pain, or any unexpected problems, contact your Primary Care Provider. Call [facility] ([phone]) or report to the closest Emergency Room. Call 911 if necessary. 03/22/201 <Electronically signed by Perry Stern DO> Date Perry Stern DO Cosigner Signature (If Indicated): Date CC: DO Patt Fernandez Start: 03-22-2020 End: 03-22-2020 Abdomen/Pelvis WITH Contrast Comments: See Note; NOTES: [facility] Imaging Services [address] [place] [address] Abdomen/Pelvis WITH Contrast MR#: [id number] Acct: [id number] Name: GUNJAN CONNELL Rep #: [id number] : 1955 F 65 From: Ramu Thakur MD PCP: Dr. Patt Jones DO Status: PRE ER Study: Abdomen/Pelvis WITH Contrast Date of Exam: Exam# [id number] Ordering Dr: Perry Stern DO STUDY: CT [...] , Service support , CC: Dr. Patt Jones, ; Dr. Perry Stern DO Plateman: Signed Patt Jones Start: 03-13-2020 End: 03-13-2020 Orthopedic Visit Report Comments: See Note; NOTES: [facility] [address] [place] [address] [address] [place] [address] OFFICE VISIT Date of Service: 03/13/20 MR#: [id number] Acct: [id number] Name: GUNJAN CONNELL Rep #: [id number] : 1955 Provider: Dr. Negro baker DO Age/Sex: 65/F [place] [facility] Status: Signed Intake Intake Visit Reasons: RIGHT KNEE Allergies No Known Allergies Allergy (Verified 02/27/20 07:19) [facility] Social History (Updated 03/13/20 @ 12:[address] Negro Johnson DO) Smoking Status: Never smoker HPI RIGHT KNEE: Details: Parts of this documentation were recorded by a scribe, this documentation accurately reflects the service provided and the decisions made by me, Dr. Negro Johnson DO 03/13/20 0750. GUNJAN CONNELL is a 65 [...] or More Views Comments: See Note; NOTES: [facility] Imaging Services [address] [place] [address] Knee 4 or More Views MR#: [id number] Acct: [id number] Name: GUNJAN CONNELL Rep #: [id number] : 1955 F 65 From: Mega block MD PCP: Dr. Patt Jones DO Status: REG CLI Study: Knee 4 or More Views Date of Exam: 03/09/20 Exam# [id number] Ordering Dr: Negro Johnson DO STUDY: X-RAY [...] Negro Johnson DO; Dr. Patt Jones DO Plateman: Signed Patt Jones Start: 02-28-2020 End: 02-28-2020 Inital Evaluation (1) - PT Comments: See Note; NOTES: [facility] Physical Therapy [facility] [address] [place] [address] / REHABILITATION SERVICES INITIAL EVALUATION MR#: [id number] Acct: [id number] Name: GUNJAN CONNELL Rep #: [id number] : 1955 64 From: Kimberli FAIR Referring Dr.: Dr. Negro Johnson DO Status: R EG RCR Insurance: [employer] SENIOR [employer] SELF PAY INSURANCE Patient's Visit Information GUNJAN CONNELL is a 64 year old F referred to Physical Therapy by Dr. Negro Johnson DO with a diagnosis of R TKR (STACIE) 02/27/2020. Date of Evaluation: 02/28/20 Physical Therapist: [...] to be FAXED BACK to us at [phone] for Medicare purposes. For Medicare only, by signing this I certify the plan of care. Please let me know if there are questions or concerns regarding this plan of care. Physician Signature: Date: _ <Electronically signed by Kimberli Vergara MPT> 02/28/20 1414 CC: Dr. Negro Johnson DO; Dr. Patt Jones DO Signed Patt Jones Start: 02-27-2020 End: 02-27-2020 Operative Report Comments: See Note; NOTES: [facility] Medical Records Department [address] [place] [address] Operative Report 02/27/20 1434 MR#: [id number] Acct: [id number] Name: GUNJAN CONNELL Rep #: [id number] : 1955 64 From: Negro Johnson DO PCP: Dr. Patt Jones DO Status:REG SDC Y Location: [place] [address] Report of Operation Date of Procedure: 02/27/20 Description of Surgical Findings:: Preoperative diagnosis: Right knee DJD Postoperative diagnosis: Same Procedure: Right total knee arthroplasty CT guided Robotic Assisted Implant: [employer] triathlon press fit femoral component size 1, [...] Joint capsule was closed with #1 Ethibond kehebx-uz-cgucr's followed by Vicryl in the subcutaneous tissues [...] 02-27-2020 Discharge Instruction Comments: See Note; NOTES: [facility] Medical Records Department [address] [place] [address] Instructions for Home/Discharge Instructions 02/27/20 1155 MR#: [id number] Acct: [id number] Name: GUNJAN CONNELL Rep #: [id number] : 1955 64 From: Negro Johnson DO PCP: Dr. Patt Jones, DO Status:REG SDC Discharge Diet: No Restrictions Weight Bearing Status: [...] BID #30 tab Transmission Status: Pending to [facility]/pharmacy #[id number] Cephalexin [Keflex] 1,000 mg PO Q8 #4 cap Transmission Status: Pending to [facility]/pharmacy #[id number] Oxycodone [Oxyir] 5 - 10 mg PO Q4H PRN PRN #60 tab PRN Reason: Pain Score 4-10/10 Transmission Status: Sent to [facility] Acetaminophen [Tylenol] 1,000 mg PO Q8 #100 tab Transmission Status: Sent to [facility] Primary Care Physician: Patt Jones DO [Primary Care Provider] - Test Results: Test results from this visit will be discussed in further detail at your follow-up appointment, if applicable. Please Follow Up With: Negro Johnson DO - 2 weeks 02/27/20 1156 <Electronically signed by Negro Johnson DO> Date Negro Johnson DO CC: Dr. Magdiel Renae MD; Dr. Patt Jones DO Signed Patt Jones Start: 02-27-2020 End: 02-27-2020 Knee 1 or 2 Views Comments: See Note; NOTES: [facility] Imaging Services [address] [place] [address] Knee 1 or 2 Views MR#: [id number] Acct: [id number] Name: GUNJAN CONNELL Rep #: [id number] : 1955 F 64 From: Anderson Jones MD PCP: Dr. Patt Jones DO Status: [facility] Study: Knee 1 or 2 Views Date of Exam: 02/27/20 Exam# [id number] Ordering Dr: Negro Johnson DO STUDY: X-RAY [...] Negro Johnson DO; Dr. Patt Jones DO Plateman: Signed Patt Jones Start: 02-27-2020 End: 02-27-2020 History and Physical Exam Comments: See Note; NOTES: [facility] Medical Records Department [address] [place] [address] History and Physical 02/27/20 0956 MR#: [id number] Acct: [id number] Name: GUNJAN CONNELL Rep #: [id number] : 1955 64 From: Negro Johnson DO PCP: Dr. Patt Jones, DO Status:REG SD Y Location: [place] [address] History and Physical Date of Admission: 02/27/20 Intake Vital Signs 02/14/20 BMI 37.7 Intake Visit Reasons: right knee Allergies No Known Allergies Allergy (Verified 02/12/20 09:45) [facility] Social History (Updated 02/17/20 @ 13:16 by [...] discuss the procedure in depth including the qqqy-oo-uqgn treatment as well as the goals of [...] of infection. This note was generated with Pylbaation software. It may contain incorrect words, spelling, and punctuation that were not noted in checking the note before signing. 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 Negro Johnson DO; Dr. Patt Jones DO Signed Patt Jones Start: 02-19-2020 End: 02-21-2020 12 Lead EKG Comments: See Note; NOTES: [facility] Cardiovascular Services [address] [place] [address] 12 Lead EKG 02/19/20 1016 MR#: [id number] Acct: [id number] Name: GUNJAN CONNELL Rep #: [id number] : 1955 64 From: Osmin Pierson MD Attending Dr: Dr. Negro Johnson DO Status: CT E SDC Ordering Dr: Negro Johnson DO Date: 02/19/20 [place] [facility] [place]: F C Admitted: Test Reason : [...] ECG Confirmed by OSMIN PIERSON MD ([id number]), online content editor DAYAN NG ([id number]) on 02/21/2020 10:52:27 AM Referred By: Negro Johnson Confirmed By:OSMIN PIERSON MD 02/21/20 1052 Date Osmin Pierson MD CC: Dr. Negro Johnson, DO; Dr. Patt Jones DO Signed Patt Jones Start: 02-14-2020 End: 02-17-2020 Orthopedic Visit Report Comments: See Note; NOTES: [facility] [address] [place] [address] OFFICE VISIT Date of Service: 02/14/20 MR#: [id number] Acct: [id number] Name: GUNJAN CONNELL Rep #: [id number] : 1955 Provider: TONY Bowden Age/Sex: 64/F [place] [facility] Status: Signed Intake Vital Signs 02/14/20 BMI 37.7 Intake Visit Reasons: right knee Allergies No Known Allergies Allergy (Verified 02/12/20 09:45) [facility] Social History (Updated 02/17/20 @ 13:16 by [...] discuss the procedure in depth including the mifj-kb-scdy treatment as well as the goals of [...] of infection. This note was generated with Pylbaation software. It may contain incorrect words, spelling, and punctuation that were not noted in checking the note before signing. 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 Diagnoses Primary osteoarthritis of right knee M17.11 ?Osteoarthritis type: primary Comment Iovera Treatment (genicular nerve block) prior to total arthroplasty 02/17/20 1316 <Electronically signed by Chris JIMENEZ> Date Chris JIMENEZ Cosigner Signature: Date (if applicable) CC: Patt Jones Start: 01-30-2020 End: 01-30-2020 Extremity Lower without Contra Comments: See Note; NOTES: [facility] Imaging Services [address] [place] [address] Extremity Lower without Contra MR#: [id number] Acct: [id number] Name: GUNJAN CONNELL Rep #: [id number] : 1955 F 64 From: James donaldson MD PCP: Dr. Patt Jones, Status: REG CLI Study: Extremity Lower without Contra Date of Exam: 0 01/30/20 Exam# [id number] Ordering Dr: Negro Johnson DO STUDY: CT SCAN LOWER EXTREMITY RIGHT REASON FOR EXAM: Female, 64 years old. Right knee osteoarthritis, stacie plasty planning protocol. Prior arthroscopy. RADIATION DOSAGE [...] Negro Johnson DO; Dr. Patt Jones DO Plateman: Signed Patt Jones Start: 01-22-2020 End: 01-22-2020 Knee 4 or More Views Comments: See Note; NOTES: [facility] Imaging Services [address] [place] [address] Knee 4 or More Views MR#: [id number] Acct: [id number] Name: GUNJAN CONNELL Rep #: [id number] : 1955 F 64 From: Anderson Jones MD PCP: Dr. Patt Jones DO Status: REG CLI Study: Knee 4 or More Views Date of Exam: 01/22/20 Exam# [id number] Ordering Dr: Negro Johnson DO STUDY: X-RAY [...] Negro Johnson DO; Dr. Patt Jones DO Plateman: Signed Patt Jones Start: 01-22-2020 End: 01-22-2020 MR/JAZIEL Comments: See Note; NOTES: [facility] [address] [place] [address] OFFICE VISIT Date of Service: 01/22/20 MR#: [id number] Acct: [id number] Name: GUNJAN CONNELL Rep #: [id number] : 1955 Provider: Dr. Negro baker DO Age/Sex: 64/F [place] [facility] Status: Signed Intake Vital Signs 01/22/20 Height [...] by me, Dr. Negro Johnson DO 01/22/20 1785. GUNJAN CONNELL is a 64 year old [...] she had a knee scope by Dr Jim about 20 years ago. Patient also had [...] a CT scan prior to surgery for Stacie. Spoke with her about the risk of [...] Bone Density Study Comments: See Note; NOTES: [facility] Imaging Services [address] [place] [address] Dexa Bone Density Study MR#: [id number] Acct: [id number] Name: GUNJAN CONNELL Rep #: [id number] : 1955 F 63 From: James Price MD PCP: Patt Jones DO Status: [facility] CLI Study: Dexa Bone Density Study Date of Exam: 06/19/18 Exam# [id number] Ordering Dr: Patt Jones DO STUDY: DUAL [...] James Price MD at 9:42 EDT Tel [phone], Service support , CC: Patt Jones DO Plateman: Signed Patt Jones Work Phone: Start: 06-19-2018 End: 06-19-2018 SCREENING MAMM (CAD), BILAT Comments: See Note; NOTES: [facility] Imaging Services [address] [place] [address] SCREENING MAMM (CAD), BILAT MR#: [id number] Acct: [id number] Name: GUNJAN CONNELL Rep #: [id number] : 1955 F 63 From: James Price MD PCP: Patt Jones DO Status: REG CLI Study: SCREENING MAMM (CAD), BILAT Date of Exam: 06/19/18 Exam# [id number] Ordering Dr: Patt Jones DO MAMMOGRAPHY - BILATERAL SCREENING REASON FOR EXAM: Female, 63 years old. Routine annual screening examination. PERTINENT HISTORY: Sisters with breast cancer. TECHNIQUE: Digital bilateral breast burak (3D mammographic acquisition) in the CC and [...] delay biopsy of a clinically suspicious abnormality. [id number] Electronically Signed: James Price MD at 11:23 EDT Tel [phone], Service support , CC: Patt Jones DO Plateman: Signed Patt Jones Work Phone: Start: 02-15-2017 End: 02-16-2017 Knee 4 or More Views Comments: See Note; NOTES: [facility] Imaging Services [address] [place] [address] Verdana 4d Knee 4 or More Views MR#: [id number] Acct: [id number] Name: GUNJAN CONNELL Magdi Rep #: [id number] : 1955 F 61 From: Alfonso Jose MD PCP: Patt Jones DO Status: REG CLI Study: Knee 4 or More Views Date of Exam: 02/15/17 Exam# [id number] Ordering Dr: Jagdish Mendoza DO STUDY: X-RAY [...] CC: Patt Jones DO; Jagdish Mendoza DO Plateman: Signed Patt Jones Start: 04-13-2016 End: 04-13-2016 Shoulder min 2 Views Comments: See Note; NOTES: [facility] Imaging Services [address] [place] [address] Verdana 4d Shoulder min 2 Views MR#: [id number] Acct: [id number] Name: GUNJAN CONNELL Rep #: [id number] : 1955 F 61 From: Fer Rush MD PCP: Patt Jones DO Status: REG CLI Study: Shoulder min 2 Views Date of Exam: 04/13/16 Exam# [id number] Ordering Dr: Jagdish Mendoza DO STUDY: X-RAY [...] MD at 21:39 EDT , Service support [phone], CC: Patt Jones DO; Jagdish Mendoza Plateman: Signed Patt Jones Start: 03-18-2016 End: 03-18-2016 Shoulder min 2 Views Comments: See Note; NOTES: [facility] Imaging Services [address] [place] [address] Verdajudy 4d Shoulder min 2 Views MR#: [id number] Acct: [id number] Name: GUNJAN CONNELL Rep #: [id number] : 1955 F 61 From: James Price MD PCP: Patt Jones DO Status: REG CLI Study: Shoulder min 2 Views Date of Exam: 03/18/16 Exam# [id number] Ordering Dr: Manisah Navas MD STUDY: X-RAY - LEFT SHOULDER [...] greater tuberosity. Soft tissue swelling. Electronically Signed: Jamse Price MD at 12:07 EDT Tel [phone], Service support [phone], RAD/Shoulder min 2 Views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 2.16.840.1.358890.3.579.2.46 2 Unknown [id number] 2.16.840.1.554945.3.579.2.46 2 Unknown [id number] 2.16.840.1.961744.3.579.2.46 2 Unknown [id number] 2.16.840.1.986927.3.579.2.46 2 Unknown [id number] 2.16.840.1.440884.3.579.2.46 2 Unknown [id number] 2.16.840.1.293435.3.579.2.46 2 Unknown [id number] 2.16.840.1.263588.3.579.2.46 2 Unknown [id number] 2.16.840.1.328915.3.579.2.46 2 Unknown [id number] 2.16.840.1.247222.3.579.2.46 2 Unknown [id number] 2.16.840.1.233399.3.579.2.46 2 Unknown [id number] 2.16.840.1.695918.3.579.2.46 2 Unknown [id number] 2.16.840.1.524460.3.579.2.46 2 Unknown [id number] 2.16.840.1.278551.3.579.2.46 2 Unknown [id number] 2.16.840.1.168719.3.579.2.46 2 Unknown [id number] 2.16.840.1.223370.3.579.2.46 2 Unknown [id number] 2.16.840.1.399714.3.579.2.46 2 Unknown [id number] 2.16.840.1.743564.3.579.2.46 2 Unknown [id number] 2.16.840.1.783017.3.579.2.46 2 Social History Date Type Detail Facility Alcohol Use Never smoker [facility] Work Phone: Comment on above: Occasional alcohol u se never smoker ..1 1 Tobacco use: Never smoker. [facility] Work Phone: Comment on above: same status 01/20/12 Tobacco use: Tobacco use: [facility]; [facility] Work Phone: Comment on above: same status 01/20/12 Start: 07-15-2021 End: 06-03-2023 Tobacco smoking status NHIS Unknown if ever smoked [facility] Start: 02-12-2020 Non-smoker [facility] Start: 1955 Sex Assigned At Female W [facility] Start: 08-05-2024 End: 04-27-2025 Tobacco smoking status NHIS Never smoked tobacco (finding) [facility] Start: 11-29-2024 Sex Female (finding) [facility] NEGATED: Highlighted row Not [facility] Medical Equipment Procedure Code Equipment Code Equipment [...] 08-02-2024 Arthroplasty, hip, total, using robot-assisted navigation ([id number]) Ceramic femoral head prosthesis ()[id number] FDA Start: 07-16-2024 Arthroplasty, hip, total, using robot-assisted navigation ([id number]) Coated hip femur prosthesis, modular ()[id number] FDA Start: 07-16-2024 Arthroplasty, hip, total, using robot-assisted navigation (798572978) Non-constrained polyethylene acetabular liner ()[id number] FDA Start: 07-16-2024 Arthroplasty, hip, total, using robot-assisted navigation ([id number]) Acetabular shell ()[id number] FDA Start: 07-16-2024 Arthroplasty, hip, total, using robot-assisted navigation ([id number]) Orthopaedic bone screw, non-bioabsorbable, sterile ()[id number] FDA Start: 07-16-2024 Arthroplasty, hip, total, using robot-assisted navigation ([id number]) Orthopaedic bone screw, non-bioabsorbable, sterile ([id number] [facility] Start: 07-16-2024 Pen Creola 31G X 8 MM Miscellaneous as directed for 0 days Quantity: 30 {Each} Refills: 3 Ordered: 22-Feb-2021 Andre Bernardo LPN Start : 22-Feb-2021 Active Comments: Mail order. 01/17 Start: 02-22-2021 Comment on above: Mail order. 01/17 Pen Creola 31G X 8 MM Miscellaneous as directed for 0 days Quantity: 30 {Each} Refills: 3 Ordered: 22-Feb-2021 Andre Bernardo LPN Start : 22-Feb-2021 Active Comments: 01/17 Start: 02-22-2021 Comment on above: 01/17 Pen Creola 31G X 8 MM Miscellaneous as directed for 0 days Quantity: 30 {Each} Refills: 3 Ordered: 22-Feb-2021 Andre Bernardo LPN Start : 22-Feb-2021 Active Comments: Mail order. 01/17 Start: 02-22-2021 Comment on above: Mail order. 01/17 Pen Creola 31G X 8 MM Miscellaneous as directed for 0 days Quantity: 30 {Each} Refills: 3 Ordered: 22-Feb-2021 Andre Bernardo LPN Start : 22-Feb-2021 Active Comments: 01/17 Start: 02-22-2021 Comment on above: 01/17 Pen Creola 31G X 8 MM Miscellaneous as directed for 0 days Quantity: 30 {Each} Refills: 3 Ordered: 22-Feb-2021 Andre Bernardo LPN Start : 22-Feb-2021 Active Comments: Mail order. 01/17 Start: 02-22-2021 Comment on above: Mail order. 01/17 Pen Creola 31G X 8 MM Miscellaneous as directed for 0 days Quantity: 30 {Each} Refills: 3 Ordered: 22-Feb-2021 Andre Bernardo LPN Start : 22-Feb-2021 Active Comments: 01/17 Start: 02-22-2021 Comment on above: 01/17 Pen Creola 31G X 8 MM Miscellaneous as directed for 0 days Quantity: 30 {Each} Refills: 3 Ordered: 22-Feb-2021 Andre Bernardo LPN Start : 22-Feb-2021 Active Comments: Mail order. 01/17 Start: 02-22-2021 Comment on above: Mail order. 01/17 Pen Creola 31G X 8 MM Miscellaneous as directed for 0 days Quantity: 30 {Each} Refills: 3 Ordered: 22-Feb-2021 Andre Bernardo LPN Start : 22-Feb-2021 Active Comments: 01/17 Start: 02-22-2021 Comment on above: 01/17 Pen Creola 31G X 8 MM Miscellaneous as directed for 0 days Quantity: 30 {Each} Refills: 3 Ordered: 11-Mar-2021 Sakina Kelsey LPN Start : 22-Feb-2021 End : 11-Mar-2021 Discontinued Comments: 01/17 Start: 02-22-2021 End: 03-11-2021 Comment on above: 01/17 Pen Creola 31G X 8 MM Miscellaneous as directed for 0 days Quantity: 30 {Each} Refills: 3 Ordered: 11-Mar-2021 Sakina Kelsey LPN Start : 22-Feb-2021 End : 11-Mar-2021 Discontinued Comments: Mail order. 01/17 Start: 02-22-2021 End: 03-11-2021 Comment on above: Mail order. 01/17 Pen Creola 31G X 8 MM Miscellaneous as directed for 0 days Quantity: 30 {Each} Refills: 3 Ordered: 11-Mar-2021 Sakina Kelsey LPN Start : 22-Feb-2021 End : 11-Mar-2021 Discontinued Comments: 01/17 Start: 02-22-2021 End: 03-11-2021 Comment on above: 01/17 Pen Creola 31G X 8 MM Miscellaneous as directed for 0 days Quantity: 30 {Each} Refills: 3 Ordered: 11-Mar-2021 Sakina Kelsey LPN Start : 22-Feb-2021 End : 11-Mar-2021 Discontinued Comments: Mail order. 01/17 Start: 02-22-2021 End: 03-11-2021 Comment on above: Mail order. 01/17 Pen Creola 31G X 8 MM Miscellaneous as directed for 0 days Quantity: 30 {Each} Refills: 3 Ordered: 11-Mar-2021 Sakina Kelsey LPN Start : 22-Feb-2021 End : 11-Mar-2021 Discontinued Comments: 01/17 Start: 02-22-2021 End: 03-11-2021 Comment on above: 01/17 Pen Creola 31G X 8 MM Miscellaneous as directed for 0 days Quantity: 30 {Each} Refills: 3 Ordered: 11-Mar-2021 Sakina Kelsey LPN Start : 22-Feb-2021 End : 11-Mar-2021 Discontinued Comments: Mail order. 01/17 Start: 02-22-2021 End: 03-11-2021 Comment on above: Mail order. 01/17 Pen Creola 31G X 8 MM Miscellaneous as directed for 0 days Quantity: 30 {Each} Refills: 3 Ordered: 11-Mar-2021 Sakina Kelsey LPN Start : 22-Feb-2021 End : 11-Mar-2021 Discontinued Comments: 01/17 Start: 02-22-2021 End: 03-11-2021 Comment on above: 01/17 Pen Creola 31G X 8 MM Miscellaneous as directed for 0 days Quantity: 30 {Each} Refills: 3 Ordered: 11-Mar-2021 Sakina Kelsey LPN Start : 22-Feb-2021 End : 11-Mar-2021 Discontinued Comments: Mail order. 01/17 Start: 02-22-2021 End: 03-11-2021 Comment on above: Mail order. 01/17 Pen Creola 31G X 8 MM Miscellaneous as directed for 0 days Quantity: 30 {Each} Refills: 3 Ordered: 11-Mar-2021 Sakina Kelsey LPN Start : 22-Feb-2021 End : 11-Mar-2021 Discontinued Comments: 01/17 Start: 02-22-2021 End: 03-11-2021 Comment on above: 01/17 Pen Creola 31G X 8 MM Miscellaneous as directed for 0 days Quantity: 30 {Each} Refills: 3 Ordered: 11-Mar-2021 Sakina Kelsey LPN Start : 22-Feb-2021 End : 11-Mar-2021 Discontinued Comments: Mail order. 01/17 Start: 02-22-2021 End: 03-11-2021 Comment on above: Mail order. 01/17 Pen Creola 31G X 8 MM Miscellaneous as directed for 0 days Quantity: 30 {Each} Refills: 3 Ordered: 11-Mar-2021 Sakina Kelsey LPN Start : 22-Feb-2021 End : 11-Mar-2021 Discontinued Comments: 01/17 Start: 02-22-2021 End: 03-11-2021 Comment on above: 01/17 Pen Creola 31G X 8 MM Miscellaneous as directed for 0 days Quantity: 30 {Each} Refills: 3 Ordered: 11-Mar-2021 Sakina Kelsey LPN Start : 22-Feb-2021 End : 11-Mar-2021 Discontinued Comments: Mail order. 01/17 Start: 02-22-2021 End: 03-11-2021 Comment on above: Mail order. 01/17 Pen Creola 31G X 8 MM Miscellaneous as directed for 0 days Quantity: 30 {Each} Refills: 3 Ordered: 11-Mar-2021 Sakina Kelsey LPN Start : 22-Feb-2021 End : 11-Mar-2021 Discontinued Comments: 01/17 Start: 02-22-2021 End: 03-11-2021 Comment on above: 01/17 Pen Creola 31G X 8 MM Miscellaneous as directed for 0 days Quantity: 30 {Each} Refills: 3 Ordered: 11-Mar-2021 Sakina Kelsey LPN Start : 22-Feb-2021 End : 11-Mar-2021 Discontinued Comments: Mail order. 01/17 Start: 02-22-2021 End: 03-11-2021 Comment on above: Mail order. 01/17 Pen Creola 31G X 8 MM Miscellaneous as directed for 0 days Quantity: 30 {Each} Refills: 3 Ordered: 11-Mar-2021 Sakina Kelsey LPN Start : 22-Feb-2021 End : 11-Mar-2021 Discontinued Comments: 01/17 Start: 02-22-2021 End: 03-11-2021 Comment on above: 01/17 Pen Creola 31G X 8 MM Miscellaneous as directed for 0 days Quantity: 30 {Each} Refills: 3 Ordered: 11-Mar-2021 Sakina Kelsey LPN Start : 22-Feb-2021 End : 11-Mar-2021 Discontinued Comments: Mail order. 01/17 Start: 02-22-2021 End: 03-11-2021 Comment on above: Mail order. 01/17 Pen Creola 31G X 8 MM Miscellaneous as directed for 0 days Quantity: 30 {Each} Refills: 3 Ordered: 11-Mar-2021 Sakina Kelsey LPN Start : 22-Feb-2021 End : 11-Mar-2021 Discontinued Comments: 01/17 Start: 02-22-2021 End: 03-11-2021 Comment on above: 01/17 Pen Creola 31G X 8 MM Miscellaneous as directed [...] 02-27-2020 tibial componenet FDA Start: 02-27-2020 Pen Creola 31G X 8 MM Miscellaneous as directed for 0 days Quantity: 30 {Each} Refills: 3 Ordered: 11-Mar-2021 Sakina Kelsey LPN Start : 22-Feb-2021 End : 11-Mar-2021 Discontinued Comments: Mail order. 01/17 Start: 02-22-2021 End: 03-11-2021 Comment on above: Mail order. 01/17 Pen Creola 31G X 8 MM Miscellaneous as directed for 0 days Quantity: 30 {Each} Refills: 3 Ordered: 11-Mar-2021 Sakina Kelsey LPN Start : 22-Feb-2021 End : 11-Mar-2021 Discontinued Comments: 01/17 Start: 02-22-2021 End: 03-11-2021 Comment on above: 01/17 Pen Creola 31G X 8 MM Miscellaneous as directed for 0 days Quantity: 30 {Each} Refills: 3 Ordered: 11-Mar-2021 Sakina Kelsey LPN Start : 22-Feb-2021 End : 11-Mar-2021 Discontinued Comments: Mail order. 01/17 Start: 02-22-2021 End: 03-11-2021 Comment on above: Mail order. 01/17 Pen Creola 31G X 8 MM Miscellaneous as directed for 0 days Quantity: 30 {Each} Refills: 3 Ordered: 11-Mar-2021 Sakina Kelsey LPN Start : 22-Feb-2021 End : 11-Mar-2021 Discontinued Comments: 01/17 Start: 02-22-2021 End: 03-11-2021 Comment on above: 01/17 Pen Creola 31G X 8 MM Miscellaneous as directed for 0 days Quantity: 30 {Each} Refills: 3 Ordered: 11-Mar-2021 Sakina Kelsey LPN Start : 22-Feb-2021 End : 11-Mar-2021 Discontinued Comments: Mail order. 01/17 Start: 02-22-2021 End: 03-11-2021 Comment on above: Mail order. 01/17 Pen Creola 31G X 8 MM Miscellaneous as directed for 0 days Quantity: 30 {Each} Refills: 3 Ordered: 11-Mar-2021 Sakina Kelsey LPN Start : 22-Feb-2021 End : 11-Mar-2021 Discontinued Comments: 01/17 Start: 02-22-2021 End: 03-11-2021 Comment on above: 01/17 Pen Creola 31G X 8 MM Miscellaneous as directed for 0 days Quantity: 30 {Each} Refills: 3 Ordered: 11-Mar-2021 Sakina Kelsey LPN Start : 22-Feb-2021 End : 11-Mar-2021 Discontinued Comments: Mail order. 01/17 Start: 02-22-2021 End: 03-11-2021 Comment on above: Mail order. 01/17 Pen Creola 31G X 8 MM Miscellaneous as directed for 0 days Quantity: 30 {Each} Refills: 3 Ordered: 11-Mar-2021 Sakina Kelsey LPN Start : 22-Feb-2021 End : 11-Mar-2021 Discontinued Comments: 01/17 Start: 02-22-2021 End: 03-11-2021 Comment on above: 01/17 Pen Creola 31G X 8 MM Miscellaneous as directed for 0 days Quantity: 30 {Each} Refills: 3 Ordered: 11-Mar-2021 Sakina Kelsey LPN Start : 22-Feb-2021 End : 11-Mar-2021 Discontinued Comments: Mail order. 01/17 Start: 02-22-2021 End: 03-11-2021 Comment on above: Mail order. 01/17 Pen Creola 31G X 8 MM Miscellaneous as directed [...] 02-27-2020 tibial componenet FDA Start: 02-27-2020 Pen Creola 31G X 8 MM Miscellaneous as directed for 0 days Quantity: 30 {Each} Refills: 3 Ordered: 11-Mar-2021 Sakina Kelsey LPN Start : 22-Feb-2021 End : 11-Mar-2021 Discontinued Comments: Mail order. 01/17 Start: 02-22-2021 End: 03-11-2021 Comment on above: Mail order. 01/17 Pen Creola 31G X 8 MM Miscellaneous as directed for 0 days Quantity: 30 {Each} Refills: 3 Ordered: 11-Mar-2021 Sakina Kelsey LPN Start : 22-Feb-2021 End : 11-Mar-2021 Discontinued Comments: 01/17 Start: 02-22-2021 End: 03-11-2021 Comment on above: 01/17 Pen Creola 31G X 8 MM Miscellaneous as directed for 0 days Quantity: 30 {Each} Refills: 3 Ordered: 11-Mar-2021 Sakina Kelsey LPN Start : 22-Feb-2021 End : 11-Mar-2021 Discontinued Comments: Mail order. 01/17 Start: 02-22-2021 End: 03-11-2021 Comment on above: Mail order. 01/17 Pen Creola 31G X 8 MM Miscellaneous as directed for 0 days Quantity: 30 {Each} Refills: 3 Ordered: 11-Mar-2021 Sakina Kelsey LPN Start : 22-Feb-2021 End : 11-Mar-2021 Discontinued Comments: 01/17 Start: 02-22-2021 End: 03-11-2021 Comment on above: 01/17 Pen Creola 31G X 8 MM Miscellaneous as directed for 0 days Quantity: 30 {Each} Refills: 3 Ordered: 11-Mar-2021 Sakina Kelsey LPN Start : 22-Feb-2021 End : 11-Mar-2021 Discontinued Comments: Mail order. 01/17 Start: 02-22-2021 End: 03-11-2021 Comment on above: Mail order. 01/17 Pen Creola 31G X 8 MM Miscellaneous as directed [...] 02-27-2020 tibial componenet FDA Start: 02-27-2020 Pen Creola 31G X 8 MM Miscellaneous as directed for 0 days Quantity: 30 {Each} Refills: 3 Ordered: 11-Mar-2021 Sakina Kelsey LPN Start : 22-Feb-2021 End : 11-Mar-2021 Discontinued Comments: Mail order. 01/17 Start: 02-22-2021 End: 03-11-2021 Comment on above: Mail order. 01/17 Pen Creola 31G X 8 MM Miscellaneous as directed for 0 days Quantity: 30 {Each} Refills: 3 Ordered: 11-Mar-2021 Sakina Kelsey LPN Start : 22-Feb-2021 End : 11-Mar-2021 Discontinued Comments: 01/17 Start: 02-22-2021 End: 03-11-2021 Comment on above: 01/17 asymmetric patella FDA Start: 02-27-2020 cruciate retaini ng femoral FDA Start: 02-27-2020 tibial bearing i nsert cs FDA Start: 02-27-2020 tibial componenet FDA Start: 02-27-2020 Pen Creola 31G X 8 MM Miscellaneous as directed for 0 days Quantity: 30 {Each} Refills: 3 Ordered: 11-Mar-2021 Sakina Kelsey LPN Start : 22-Feb-2021 End : 11-Mar-2021 Discontinued Comments: Mail order. 01/17 Start: 02-22-2021 End: 03-11-2021 Comment on above: Mail order. 01/17 Pen Creola 31G X 8 MM Miscellaneous as directed for 0 days Quantity: 30 {Each} Refills: 3 Ordered: 11-Mar-2021 Sakina Kelsey LPN Start : 22-Feb-2021 End : 11-Mar-2021 Discontinued Comments: 01/17 Start: 02-22-2021 End: 03-11-2021 Comment on above: 01/17 asymmetric patella FDA Start: 02-27-2020 cruciate retaini ng femoral FDA Start: 02-27-2020 tibial bearing i nsert cs FDA Start: 02-27-2020 tibial componenet FDA Start: 02-27-2020 Pen Creola 31G X 8 MM Miscellaneous as directed for 0 days Quantity: 30 {Each} Refills: 3 Ordered: 11-Mar-2021 Sakina Kelsey LPN Start : 22-Feb-2021 End : 11-Mar-2021 Discontinued Comments: Mail order. 01/17 Start: 02-22-2021 End: 03-11-2021 Comment on above: Mail order. 01/17 Pen Creola 31G X 8 MM Miscellaneous as directed for 0 days Quantity: 30 {Each} Refills: 3 Ordered: 11-Mar-2021 Sakina Kelsey LPN Start : 22-Feb-2021 End : 11-Mar-2021 Discontinued Comments: 01/17 Start: 02-22-2021 End: 03-11-2021 Comment on above: 01/17 Pen Creola 31G X 8 MM Miscellaneous as directed for 0 days Quantity: 30 {Each} Refills: 3 Ordered: 11-Mar-2021 Sakina Kelsey LPN Start : 22-Feb-2021 End : 11-Mar-2021 Discontinued Comments: Mail order. 01/17 Start: 02-22-2021 End: 03-11-2021 Comment on above: Mail order. 01/17 Pen Creola 31G X 8 MM Miscellaneous as directed for 0 days Quantity: 30 {Each} Refills: 3 Ordered: 11-Mar-2021 Sakina Kelsey LPN Start : 22-Feb-2021 End : 11-Mar-2021 Discontinued Comments: 01/17 Start: 02-22-2021 End: 03-11-2021 Comment on above: 01/17 asymmetric patella FDA Start: 02-27-2020 cruciate retaini ng femoral FDA Start: 02-27-2020 tibial bearing i nsert cs FDA Start: 02-27-2020 tibial componenet FDA Start: 02-27-2020 Pen Creola 31G X 8 MM Miscellaneous as directed for 0 days Quantity: 30 {Each} Refills: 3 Ordered: 11-Mar-2021 Sakina Kelsey LPN Start : 22-Feb-2021 End : 11-Mar-2021 Discontinued Comments: Mail order. 01/17 Start: 02-22-2021 End: 03-11-2021 Comment on above: Mail order. 01/17 Pen Creola 31G X 8 MM Miscellaneous as directed [...] with [employer] Shuttle Suture FDA Start: 07-28-2024 ([id number]) Internal orthopa edic fixation system, plate/screw, non-bioabsorbable, sterile ()[id number] FDA Start: 07-28-2024 ([id number]) Ceramic femoral head prosthesis ()[id number] FDA Start: 07-28-2024 ([id number]) Press-fit femora l stem prosthesis ()[id number] FDA Start: 07-28-2024 Press-fit femora l stem prosthesis ()[id number] FDA Start: 07-28-2024 asymmetric patella FDA Start: [...] /State Functional Status Date Assessment Result Facility 04-28-2025 Functional status Ambulates [facility] Work Phone: 04-28-2025 Functional status Tolerates Acti vity [facility] Work Phone: 08-24-2024 Functional status Ambulates [facility] Work Phone: 08-23-2024 Functional status Tolerates Acti vity [facility] Work Phone: 08-05-2024 Functional status Ambulates [facility] Work Phone: 04-17-2020 LP-IR Score LP-IR Score [...] component of a physician's clinical assessment. Test(s) 023375-KMO-R ; 064749-NDP-P; 678955-EUE-D; 090467-Gkmrjnbzvkobl; 162438-Zxiplvpwzhe, Total; 154471-ELU-K (Total);669089-Kiibz LDL-P; 587563-JMS Size; 899920-BO-RR Scorewas developed and its performance characteristics determinedby [facility]Sc[facility]. It has not been cleared or approved by the Foodand Drug Administration.PATIENT WAS FASTINGPERFORMED BY: [place] [address] [facility] [id number] BY: [facility] [facility] [id number] 04-27-2018 LP-IR Score LP-IR Score 41 [facility] Work Phone: Comment on above: INSULIN RESISTANCE M ALFREDO <--Insulin Sensitive Insulin Resistant--> Percentile in Reference [...] andDrug Administration. PATIENT WAS FASTINGP ERFORMED BY: avocadostoreton1447 [facility] [id number] BY: [facility] CommunicationsHealth[facility] T[facility] RiverOyeyas7[address] [facility] [id number] Mental Status Date Assessment Result Facility 04-28-2025 Cognitive function Voice/Name [facility] Work Phone: 08-24-2024 Cognitive function Voice/Name [facility] Work Phone: 08-23-2024 Cognitive function Appropriate;[facility] Work Phone: 08-05-2024 Cognitive function Voice/Name [facility] Work Phone: Clinical Notes 12-11-2020 to 04-28-2025 Note Date & Type Note Facility 04-28-2025 Discharge summary Note Date/Time April 28, 2025 1:16pm [facility] Medical Records Department [address] [place] [address] Discharge Summary 04/28/25 1308 MR#: [id number] Acct: [id number] Name: GUNJAN CONNELL Rep #:[id number] : 1955 70 From: Jonathan chris MD PCP: Dr. Patt Jones DO Status:AD M IN [facility] Prov[facility] Date of Admission: 04/27/25 Primary Care Physician: Dr. Patt Jones DO Reason For Visit: RECURRENT C DIFF Diagnosis Discharge Diagnosis (1) C. difficile colitis: Status: Acute Code(s): A04.72 - Enterocolitis due to Clostridium difficile, not specified as recurrent (2) Acute kidney injury: Status: Acute Code(s): N17.9 - Acute kidney failure, unspecified Medications at Discharge Home Medications folic acid 1 mg tablet 1 mg PO DAILYCM Supplement #0 tabs 08/05/24 acetaminophen 500 mg tablet 1,000 mg (2 x 500 mg) PO Q8 pain #0 tabs 08/19/24 methotrexate sodium 2.5 mg tablet 15 mg (6 x 2.5 mg) PO We@1000 #0 tabs 08/19/24 cholecalciferol (vitamin D3) 125 mcg (5,000 unit) capsule 250 mcg PO DAILY 01/12/25 tramadol 50 mg tablet 50 mg PO 4X/DAY PRN PRN pain 4 days #15 tabs 01/12/25 vancomycin 125 mg capsule 125 mg PO Q6H #68 caps 04/28/25 Hospital Course Operations None Procedures None Summary of Care Provided Minutes Spent on Discharge: 36 Hospital Course: Per HPI: GUNJAN CONNELL, is a 70 F who presented to [facility] 04/27/2025 with diarrhea. Patient was recently found in the ED here on 04/02 to be positive for C. difficile. CT abdomen/pelvis at that time showed pancolitis. However, she was stable so she was able to be discharged home on p.o. vancomycin. She completed a 10-day course of vancomycin at home with resolution of her diarrhea. However, she again began to have diarrhea about 3 days ago and has been worsening, and she is concerned that she has C. difficile again. In the ED, stool sample was obtained and again showed toxigenic C. difficile. CT abdomen pelvis showed diffuse submucosal thickening and edema in multiple bowel loops in the terminal ileum down through the sigmoid colon consistent with diffuse colitis/enteritis. Labs otherwise notable for creatinine 2.25 (baseline around 0.8), BUN 43, lactic acid 2.2. She was given 3L of IV fluids and a dose of p.o. vancomycin in the ED, and hospitalist was contacted for admission. I saw the patient at bedside in the ED, was present. Patient was mildly fatigued appearing but otherwise laying back comfortably in bed, conversing normally, in no acute distress. Noted that she does feel somewhat better after the IV fluids. Has not had a bowel movement nowfor the past few hours. Denies any fevers or chills. Denies any abdominal painor discomfort. No other acute concerns at this time. Will be admitted for further management. Hospital Course: 1. Recurrent C. difficile colitis with DIMA?70-year-old female completed 10-day course of p.o. vancomycin beginning of April for her first episode of C. difficile colitis. She presents back to the hospital with recurrent diarrhea and was started back on p.o. vancomycin. She has had significant improvement and states that her diarrhea has improved and she no longer has any abdominal pain. C. difficile testing did come back positive for the PCR and antigen but the toxin was negative however given the continued evidence of colitis on the CTscan it was prudent to continue treatment with oral vancomycin. Given that thisis a recurrence and at the recurrence happen so quickly, we will continue with the vancomycin taper she will receive 125 mg p.o. 4 times daily for 10 days and then twice daily for 7 days and then daily for 7 days and then every other day for 14 days. I do recommend that she follow-up with her PCP as well as infectious disease as an outpatient. Her creatinine at baseline is around 0.8, on admission yesterday was 2.25, she has received aggressive IV fluids and her creatinine today has normalized back to her baseline. I did discuss with her the possibility for discharge and she requested to be discharged since she was feeling much better today given her improvement was faster than anticipated. She expressed understanding of the risk and benefits of going home and would like to go home today. 2. Chronic pain syndrome, rheumatoid arthritis, her chronic medical conditions which complicate her care. Her home medications were continued where appropriate Physical Exam Narrative General: Alert, Oriented x3, Cooperative, No apparent distress HEENT: Atraumatic, PERRLA, EOMI, Normocephalic Oral: Moist Mucosa Neck: Supple, No JVD Lungs: Clear to auscultation, Normal air movement, No rhonchi, No wheeze, No rales Cardiovascular: Regular rate, Regular Rhythm, Normal S1, Normal S2, No murmurs Abdomen: Soft, Non Tender, Non-Distended, No Hepato-splenomegaly Extremities: No edema, Capillary Refill Less than 3 Seconds Skin: No rashes, No breakdown Musculoskeletal: No Tenderness to Palpation of Joints or Extremities Neurological: No focal neurological deficits, Motor Exam 5/5 strength throughout, Sensory exam intact to light touch and pain Psych/Mental Status: Normal Affect, Appropriate Weight / BMI Weight Weight: 143 lb 8.335 oz Body Mass Index (BMI) 29.0 ABG / Lab / Microbiology Data 04/28/25 07:11 04/28/25 07:11 Laboratory: Laboratory Results - last 24 hr 04/27/25 12:27: Lactic Acid 2.2 H* 04/27/25 16:30: Lactic Acid 2.1 H* 04/28/25 07:11: WBC 7.2, RBC 3.80 L, Hgb 11.5 L, Hct 34.0 L, MCV 89.5, MCH 30.3,MCHC 33.8, RDW Std Deviation 47.1 H, RDW Coeff of Oly 14.6, Plt Count 210, MPV 9.5, Sodium 135, Potassium 3.4, Chloride 103, Carbon Dioxide 19.1 L, Anion Gap 13, BUN 23 H, Creatinine 0.81, Estim Creat Clear Calc 52.86, Est GFR (MDRD) Non-Af 78, BUN/Creatinine Ratio 28.0 H, Glucose 114 H, Calcium 8.9 Microbiology: Microbiology 04/27/25 11:35 Stool C. difficile GDH Antigen & Toxins - Final 04/27/25 11:35 Stool Clostridioides difficile (PCR) - Final Radiography Diagnostic Testing: Radiology Impression Abdomen/Pelvis CT 04/27/25 11:44 IMPRESSION: Diffuse submucosal thickening and submucosal edema in multiple bowel loops particularly of note in the terminal ileum and cecum and throughout the mid and distal sigmoid consistent with diffuse colitis/enteritis. No perforation or abscess Stable poorly defined nonenhancing hypoattenuated lesion within the left lobe ofthe liver No free fluid, air, or suspicious adenopathy Extensive degenerative bony changes with multiple chronic compression fractures in the visualized thoracic and lumbar spine Reading Location: [id number] D/C Instructions Call your doctor if you observe: Fever of 101 or Higher, Shortness of breath, Dizziness, Fainting spells, Swelling in the ankles, Chest pain and Increased palpitations (irregular heartbeat) DC O2, CPAP, BIPAP Needs Home O2 Discharge instructions: No Meaningful Use Info Meaningful Use Meaningful Use Diagnoses (Choose all that apply): None applicable Discharge Plan Admission Admit Date/Time: 04/27/25 14:13 Attending Provider: Jonathan Denney Primary Care Provider: Patt Jones Consulting Providers: Anand Contreras Discharge Orders/Prescriptions Prescriptions: New vancomycin 125 mg capsule 125 mg PO Q6H Qty: 68 0RF Rx Instructions: Take 1 tablet 4 times a day for 10 days then 1 tablet twice a day for 7 days then 1 tablet daily for 7 days then 1 tablet every other day for 14 days Continued folic acid 1 mg Tablet 1 mg PO DAILYCM Qty: 0 0RF acetaminophen 500 mg Tablet 1,000 mg PO Q8 Qty: 0 0RF methotrexate sodium 2.5 mg Tablet 15 mg PO We@1000 Qty: 0 0RF cholecalciferol (vitamin D3) 125 mcg (5,000 unit) capsule 250 mcg PO DAILY tramadol 50 mg tablet 50 mg PO 4X/DAY PRN PRN (Reason: pain) 4 Days Qty: 15 0RF Referrals / Follow Up: Patt Jones DO [Primary Care Provider] - Within 1 Week Jose Manuel Jaramillo MD [Med Staff - Active Staff] - Within 1 Month Disposition Disposition (needs filled in before D/C Order can be placed): Home, Self Care Charges/Coding Visit Charges Inpatient E&M: 66385 Disch Hosp >30min 04/28/25 1316 <Electronically signed by Jonathan Denney MD> Cosigner Signature (if applicable): CC: Dr. Patt Jones DO; Dr. Jonathan Denney MD~ Signed [facility] Work Phone: 1(285) 943-528308-25-2025 Discharge summary Author Jonathan Denney [facility] Note Date/Time April 28, 2025 12 :38pm [facility] Medical Records Department [address] [place] [address] [place] [address] Instructions for Home/Discharge Instructions 04/28/25 1233 MR#: [id number] Acct: [id number] Name: GUNJAN CONNELL Rep #:[id number] : 1955 70 From: Jonathan chris MD PCP: Dr. Patt Jones DO Status:AD M IN Discharge Instructions DC O2, CPAP, BIPAP needs Home O2 Discharge instructions: No Dressing / Incision Discharge Activity: Return to Normal Activity Dressing / Incision Call your doctor if you observe: Fever of 101 or Higher, Shortness of breath, Dizziness, Fainting spells, Swelling in the ankles, Chest pain and Increased palpitations (irregular heartbeat) Follow Up Care Test Results: Test results from this visit will be discussed in further detail at your follow- up appointment, if applicable. Discharge Plan Admission Admit Date/Time: 04/27/25 14:13 Attending Provider: Jonathan Denney Primary Care Provider: Patt Jones Consulting Providers: Anand Contreras Discharge Orders/Prescriptions Prescriptions: New vancomycin 125 mg capsule 125 mg PO Q6H Qty: 68 0RF Rx Instructions: Take 1 tablet 4 times a day for 10 days then 1 tablet twice a day for 7 days then 1 tablet daily for 7 days then 1 tablet every other day for 14 days Continued folic acid 1 mg Tablet 1 mg PO DAILYCM Qty: 0 0RF acetaminophen 500 mg Tablet 1,000 mg PO Q8 Qty: 0 0RF methotrexate sodium 2.5 mg Tablet 15 mg PO We@1000 Qty: 0 0RF cholecalciferol (vitamin D3) 125 mcg (5,000 unit) capsule 250 mcg PO DAILY tramadol 50 mg tablet 50 mg PO 4X/DAY PRN PRN (Reason: pain) 4 Days Qty: 15 0RF Referrals / Follow Up: Patt Jones DO [Primary Care Provider] - Within 1 Week Disposition Disposition (needs filled in before D/C Order can be placed): Home, Self Care 04/28/25 1238<Electronically signed by Jonathan Denney MD>Jonathan Denney MD CC: Dr. Anand Contreras DO; Dr. Patt Jones DO ~ Signed [facility] Work Phone: 1(244) 588-432208-25-2025 Consult note [facility] Medical Records Department [address] [place] [address] Counseling Note - Pharmacy 04/28/25 1417 MR#: [id number] Acct: [id number] Name: GUNJAN CONNELL Rep #:[id number] : 1955 70 From: Marylu Bojorquez PCP: Dr. Patt Jones, DO Status:AD M IN Y Location: [place] [address] Pharmacy [facility] Counseling Pharmacy Service has performed discharge medication reconciliation and counseling for this patient.Patient in contact precautions, counseled via telephone. 1. VANCOMYCIN 125MG PO Q6H X 10 DAYS, THEN 125MG PO BID X 7 DAYS, THEN DAILY X 7DAYS, THEN QODAY X 14 DAYS The patient's discharge medication list was reviewed for discrepancies and discrepancies were resolved. The patient was counseled on the following discharge medications and changes in medications for homegoing were reviewed. The Reason for Use, instructions for use, and potential side effects were reviewed for all new medications. The patient's questions regarding all of their medications were answered. The patient was able to verbally demonstrate an understanding of their dischargemedications. Medications at Discharge Home Medications folic acid 1 mg tablet 1 mg PO DAILYCM Supplement #0 tabs 08/05/24 acetaminophen 500 mg tablet 1,000 mg (2 x 500 mg) PO Q8 pain #0 tabs 08/19/24 methotrexate sodium 2.5 mg tablet 15 mg (6 x 2.5 mg) PO We@1000 #0 tabs 08/19/24 cholecalciferol (vitamin D3) 125 mcg (5,000 unit) capsule 250 mcg PO DAILY 01/12/25 tramadol 50 mg tablet 50 mg PO 4X/DAY PRN PRN pain 4 days #15 tabs 01/12/25 vancomycin 125 mg capsule 125 mg PO Q6H #68 caps 04/28/25 04/28/25 1418 Date _ Marylu Bojorquez Cosigner Signature (if applicable): Date CC: ~ Signed [facility]08-25-2025 Discharge summary [facility] Medical Records Department [address] [place] [address] Discharge Summary 04/28/25 1308 MR#: [id number] Acct: [id number] Name: GUNJAN CONNELL Rep #:[id number] : 1955 70 From: Jonathan chris MD PCP: Dr. Patt Jones DO Status:AD M IN Location: [place] [address]- 1 Providers Date of Admission: 04/27/25 Primary Care Physician: Dr. Patt Jones DO Reason For Visit: RECURRENT C DIFF Diagnosis Discharge Diagnosis (1) C. difficile colitis: Status: Acute Code(s): A04.72 - Enterocolitis due to Clostridium difficile, not specified as recurrent (2) Acute kidney injury: Status: Acute Code(s): N17.9 - Acute kidney failure, unspecified Medications at Discharge Home Medications folic acid 1 mg tablet 1 mg PO DAILYCM Supplement #0 tabs 08/05/24 acetaminophen 500 mg tablet 1,000 mg (2 x 500 mg) PO Q8 pain #0 tabs 08/19/24 methotrexate sodium 2.5 mg tablet 15 mg (6 x 2.5 mg) PO We@1000 #0 tabs 08/19/24 cholecalciferol (vitamin D3) 125 mcg (5,000 unit) capsule 250 mcg PO DAILY 01/12/25 tramadol 50 mg tablet 50 mg PO 4X/DAY PRN PRN pain 4 days #15 tabs 01/12/25 vancomycin 125 mg capsule 125 mg PO Q6H #68 caps 04/28/25 Hospital Course Operations None Procedures None Summary of Care Provided Minutes Spent on Discharge: 36 Hospital Course: Per HPI: GUNJAN CONNELL, is a 70 F who presented to [facility] 04/27/2025 with diarrhea. Patient was recently found in the ED here on 04/02 to be positive for C. difficile. CT abdomen/pelvis at that time showed pancolitis. However, she was stable so she was able to be discharged home on p.o. vancomycin. She completed a 10-day course of vancomycin at home with resolution of her diarrhea. However, she again began to have diarrhea about 3 days ago and has been worsening, and she is concerned that she has C. difficile again. In the ED, stool sample was obtained and again showed toxigenic C. difficile. CT abdomen pelvis showed diffuse submucosal thickening and edema in multiplebowel loops in the terminal ileum down through the sigmoid colon consistent with diffuse colitis/enteritis. Labs otherwise notable for creatinine 2.25 (baseline around 0.8), BUN 43, lactic acid 2.2. She was given 3L of IV fluids and a dose of p.o. vancomycin in the ED, and hospitalist was contactedfor admission. I saw the patient at bedside in the ED, was present. Patient was mildly fatigued appearing but otherwise laying back comfortably in bed, conversing normally, in no acute distress. Noted that she does feel somewhat better after the IV fluids. Has not had a bowel movement nowfor the past few hours. Denies any fevers or chills. Denies any abdominal painor discomfort. No other acute concerns at this time. Will be admitted for further management. Hospital Course: 1. Recurrent C. difficile colitis with DIMA?70-year-old female completed 10-day course of p.o. vancomycin beginning of April for her first episode of C. difficile colitis. She presents back to the hospital with recurrent diarrhea and was started back on p.o. vancomycin. She has had significant improvement and states that her diarrhea has improved and she no longer has any abdominal pain. C. difficile testing did come back positive for the PCR and antigen but the toxin was negative however giventhe continued evidence of colitis on the CTscan it was prudent to continue treatment with oral vancomycin. Given that thisis a recurrence and at the recurrence happen so quickly, we will continue with the vancomycin taper she will receive 125 mg p.o. 4 times daily for 10 days and then twice daily for 7 days and then daily for 7 days and then every other day for 14 days. I do recommend that she follow-up with her PCP as well as infectious disease as an outpatient. Her creatinine at baseline is around 0.8, on admission yesterday was 2.25, she has received aggressive IV fluids and her creatinine today has normalized back to her baseline. I did discuss with her the possibility for discharge andshe requested to be discharged since she was feeling much better today given her improvement was faster than anticipated. She expressed understanding of the risk and benefits of going home and would like to go home today. 2. Chronic pain syndrome, rheumatoid arthritis, her chronic medical conditions which complicate hercare. Her home medications were continued where appropriate Physical Exam Narrative General: Alert, Oriented x3, Cooperative, No apparent distress HEENT: Atraumatic, PERRLA, EOMI, Normocephalic Oral: Moist Mucosa Neck: Supple, No JVD Lungs: Clear to auscultation, Normal air movement, No rhonchi, No wheeze, No rales Cardiovascular: Regular rate, Regular Rhythm, Normal S1, Normal S2, No murmurs Abdomen: Soft, Non Tender, Non-Distended, No Hepato-splenomegaly Extremities: No edema, Capillary Refill Less than 3 Seconds Skin: No rashes, No breakdown Musculoskeletal: No Tenderness to Palpation of Joints or Extremities Neurological: No focal neurological deficits, Motor Exam 5/5 strength throughout, Sensory exam intact to light touch and pain Psych/Mental Status: Normal Affect, Appropriate Weight / BMI Weight Weight: 143 lb 8.335 oz Body Mass Index (BMI) 29.0 ABG / Lab / Microbiology Data 04/28/25 07:11 04/28/25 07:11 Laboratory: Laboratory Results - last 24 hr 04/27/25 12:27: Lactic Acid 2.2 H* 04/27/25 16:30: Lactic Acid 2.1 H* 04/28/25 07:11: WBC 7.2, RBC 3.80 L, Hgb 11.5 L, Hct 34.0 L, MCV 89.5, MCH 30.3,MCHC 33.8, RDW Std Deviation 47.1 H, RDW Coeff of Oly 14.6, Plt Count 210, MPV 9.5, Sodium 135, Potassium 3.4, [id number], Carbon Dioxide 19.1 L, Anion Gap 13, BUN 23 H, Creatinine 0.81, Estim Creat Clear Calc 52.86, Est GFR (MDRD) Non-Af 78, BUN/Creatinine Ratio 28.0 H, Glucose 114 H, Calcium 8.9 Microbiology: Microbiology 04/27/25 11:35 Stool C. difficile GDH Antigen & Toxins - Final 04/27/25 11:35 Stool Clostridioides difficile (PCR) - Final Radiography Diagnostic Testing: Radiology Impression Abdomen/Pelvis CT 04/27/25 11:44 IMPRESSION: Diffuse submucosal thickening and submucosal edema in multiple bowel loops particularly of note in the terminal ileum and cecum and throughout the mid and distal sigmoid consistent with diffuse colitis/enteritis. No perforationor abscess Stable poorly defined nonenhancing hypoattenuated lesion within the left lobe ofthe liver No free fluid, air, or suspicious adenopathy Extensive degenerative bony changes with multiple chronic compression fractures in the visualized thoracic and lumbar spine Reading Location: [facility] D/C Instructions Call your doctor if you observe: Fever of 101 or Higher, Shortness of breath, Dizziness, Fainting spells, Swelling in the ankles, Chest pain and Increased palpitations (irregular heartbeat) DC O2, CPAP, BIPAP Needs Home O2 Discharge instructions: No Meaningful Use Info Meaningful Use Meaningful Use Diagnoses (Choose all that apply): None applicable Discharge Plan Admission Admit Date/Time: 04/27/25 14:13 Attending Provider: Jonathan Denney Primary Care Provider: Patt Jones Consulting Providers: Anand Contreras Discharge Orders/Prescriptions Prescriptions: New vancomycin 125 mg capsule 125 mg PO Q6H Qty: 68 0RF Rx Instructions: Take 1 tablet 4 times a day for 10 days then 1 tablet twice a day for 7 days then 1 tablet daily for 7 days then 1 tablet every other day for 14 days Continued folic acid 1 mg Tablet 1 mg PO DAILYCM Qty: 0 0RF acetaminophen 500 mg Tablet 1,000 mg PO Q8 Qty: 0 0RF methotrexate sodium 2.5 mg Tablet 15 mg PO We@1000 Qty: 0 0RF cholecalciferol (vitamin D3) 125 mcg (5,000 unit) capsule 250 mcg PO DAILY tramadol 50 mg tablet 50 mg PO 4X/DAY PRN PRN (Reason: pain) 4 Days Qty: 15 0RF Referrals / Follow Up: Patt Jones DO [Primary Care Provider] - Within 1 Week Jose Manuel Jaramillo MD [Med Staff - Active Staff] - Within 1 Month Disposition Disposition (needs filled in before D/C Order can be placed): Home, Self Care Charges/Coding Visit Charges Inpatient E&M: 79507 Disch Hosp >30min 04/28/25 1316 Cosigner Signature (if applicable): CC: Dr. Patt Jones DO; Dr. Jonathan Denney MD~ Signed [facility]08-25-[facility] Discharge summary [facility] Medical Records Department [address] [place] [address] Instructions for Home/Discharge Instructions 04/28/25 1233 MR#: [id number] Acct: [id number] Name: GUNJAN CONNELL Rep #:[id number] : 1955 70 From: Jonathan chris MD PCP: Dr. Patt Jones DO Status:AD M IN Discharge Instructions DC O2, CPAP, BIPAP needs Home O2 Discharge instructions: No Dressing / Incision Discharge Activity: Return to Normal Activity Dressing / Incision Call your doctor if you observe: Fever of 101 or Higher, Shortness of breath, Dizziness, Fainting spells, Swelling in the ankles, Chest pain and Increased palpitations (irregular heartbeat) Follow Up Care Test Results: Test results from this visit will be discussed in further detail at your follow- up appointment, if applicable. Discharge Plan Admission Admit Date/Time: 04/27/25 14:13 Attending Provider: Jonathan Denney Primary Care Provider: Patt Jones Consulting Providers: Anand Contreras Discharge Orders/Prescriptions Prescriptions: New vancomycin 125 mg capsule 125 mg PO Q6H Qty: 68 0RF Rx Instructions: Take 1 tablet 4 times a day for 10 days then 1 tablet twice a day for 7 days then 1 tablet daily for 7 days then 1 tablet every other day for 14 days Continued folic acid 1 mg Tablet 1 mg PO DAILYCM Qty: 0 0RF acetaminophen 500 mg Tablet 1,000 mg PO Q8 Qty: 0 0RF methotrexate sodium 2.5 mg Tablet 15 mg PO We@1000 Qty: 0 0RF cholecalciferol (vitamin D3) 125 mcg (5,000 unit) capsule 250 mcg PO DAILY tramadol 50 mg tablet 50 mg PO 4X/DAY PRN PRN (Reason: pain) 4 Days Qty: 15 0RF Referrals / Follow Up: Patt Jones DO [Primary Care Provider] - Within 1 Week Disposition Disposition (needs filled in before D/C Order can be placed): Home, Self Care 04/28/25 1238Nicnoa Denney MD CC: Dr. Anand Contreras DO; Dr. Patt Jones DO ~ Signed [facility]08-24-2025 History and physical note Author Anand Contreras [facility] Note Date/Time April 27, 2025 3: 18pm [facility] Medical Records Department [address] [place] [address] H&P Exam - Hospitalist 04/27/25 1409 MR#: [id number] Acct: [id number] Name: GUNJAN CONNELL Rep #:[id number] : 1955 70 From: Anand duncan DO PCP: Dr. Patt Jones DO Status:AD M IN Location: [place] [address] HPI - General General Date of Admission: 04/27/25 Date of Service: 04/27/25 Chief Complaint: Diarrhea HPI Narrative GUNJAN CONNELL, is a 70 F who presented to [facility] ED on 04/27/2025 with diarrhea. Patient was recently found in the ED here on 04/02 to be positive for C. difficile. CT abdomen/pelvis at that time showed pancolitis. However, she was stable so she was able to be discharged home on p.o. vancomycin. She completed a 10-day course of vancomycin at home with resolutionof her diarrhea. However, she again began to have diarrhea about 3 days ago andhas been worsening, and she is concerned that she has C. difficile again. In the ED, stool sample was obtained and again showed toxigenic C. difficile. CT abdomen pelvis showed diffuse submucosal thickening and edema in multiple bowel loops in the terminal ileum down through the sigmoid colon consistent with diffuse colitis/enteritis. Labs otherwise notable for creatinine 2.25 (baselinearound 0.8), BUN 43, lactic acid 2.2. She was given 3 L of IV fluids and a doseof p.o. vancomycin in the ED, and hospitalist was contacted for admission. I saw the patient at bedside in the ED, was present. Patient was mildly fatigued appearing but otherwise laying back comfortably in bed, conversing normally, in no acute distress. Noted that she does feel somewhat better after the IV fluids. Has not had a bowel movement now for the past few hours. Deniesany fevers or chills. Denies any abdominal pain or discomfort. No other acute concerns at this time. Will be admitted for further management. [facility] Medical History Postoperative anemia Wears glasses Wears [...] Q 8 #0 tabs 08/19/24 01/11/25 Rx methotrexate sodium 2.5 mg tablet 15 mg (6 x 2.5 mg) P O We@1000 #0 08/19/24 01/08/25 Rx tabs cholecalciferol (vitamin D3) 125 250 mcg PO DAILY 01/0201/12/25 History mcg (5,000 unit) capsule tramadol 50 mg tablet 50 mg PO 4X/DAY PRN PRN pain 4 01/12/25 Unknown Rx days #15 tabs Allergy/AdvReac Type Severity Reaction Status Date / Time latex AdvReac Intermediate Rash Verified 04/27/25 11:26 Surgical History History of revision of total replacement of right hip joint History of hysterectomy History of carpal tunnel release of both wrists Hx of removal of cyst Hx of arthroscopy of right knee Hx of cholecystectomy Social History household members: spouse Smoking Status: Never smoker alcohol intake: never substance use type: does not use ROS Constitutional Constitutional: Reports fatigue; Denies chills, fever(s) or weakness Cardiovascular Cardiovascular: Denies chest pain Respiratory/Chest Respiratory/Chest: Denies shortness of breath at rest Gastrointestinal Gastrointestinal: Reports diarrhea and nausea; Denies abdominal pain, constipation or vomiting Musculoskeletal Musculoskeletal: Denies arthralgias or myalgias Neurologic Neurologic: Denies dizziness, focal weakness or headache(s) Vital Signs Vital Signs Vital Signs: 04/27/25 11:24 04/27/25 13:54 Temperature 98.1 F Temperature Source Oral Pulse Rate 101 H 91 Respiratory Rate 16 16 Blood Pressure 133/63 H 141/100 H Blood Pressure Mean 86 113 Pulse Ox 99 98 Oxygen Delivery Method Room Air Room Air Weight Weight: 67.086 kg Body Mass Index (BMI) 29.8 Physical Exam Const alert, oriented x3, no apparent distress and average body habitus Constitutional Narrative: Elderly female, mildly fatigued appearing but otherwise laying back comfortably in bed, conversing normally, in no acute distress. General Appearance: cooperative and comfortable HEENT normocephalic, head/scalp atraumatic, hearing grossly normal bilaterally, nasal mucous membranes and turbinates normal and moist oral mucous membranes Eyes PERRL, EOMs intact bilaterally and conjunctivae normal Neck full ROM Chest inspection of chest normal Resp normal respiratory effort, normal air movement, no use of accessory muscles and clear to auscultation bilaterally Cardio regular rate, regular rhythm, no murmurs and peripheral pulses 2+ throughout GI normal to inspection, nondistended, normoactive bowel sounds, soft to palpation,non-tender and non-distended Back/Spine normal ROM Extremity normal to inspection, full ROM and no pedal edema Skin no rashes or lesions noted Psych mental status grossly normal Results Lab / Micro Data 04/27/25 12:27 04/27/25 12:27 Labs: Laboratory Results - last 24 hr 04/27/25 12:27: WBC 9.4, RBC 4.38, Hgb 13.2, Hct 39.6, MCV 90.4, MCH 30.1, MCHC 33.3, RDW Std Deviation 48.4 H, RDW Coeff of Oly 14.7 H, Plt Count 238, MPV 9.7,Immature Gran % (Auto) 0.700, Neut % (Auto) 71.3 H, Lymph % (Auto) 10.6 L, [place] % (Auto) 16.1 H, Eos % (Auto) 0.3, Baso % (Auto) 1.0, Absolute Neuts (auto) 6.7,Absolute Lymphs (auto) 1.00, Nucleated RBC % 0, Differential Comment , Sodium 133, Potassium 3.6, Chloride 97 L, Carbon Dioxide 20.6 L, Anion Gap 16 H, BUN 43H, Creatinine 2.25 H, Est GFR (MDRD) Non-Af 23 L, BUN/Creatinine Ratio 19.1, Glucose 104 H, Lactic Acid 2.2 H*, Calcium 9.8, Total Bilirubin 1.25, AST 19, ALT20, Alkaline Phosphatase 89, Total Protein 7.1, Albumin 3.9, Globulin 3.2, Albumin/Globulin Ratio 1.2, Lipase 51 Micro: Microbiology 04/27/25 11:35 Stool Clostridioides difficile (PCR) - Final Imaging Radiology Impression Abdomen/Pelvis CT 04/27/25 11:44 IMPRESSION: Diffuse submucosal thickening and submucosal edema in multiple bowel loops particularly of note in the terminal ileum and cecum and throughout the mid and distal sigmoid consistent with diffuse colitis/enteritis. No perforation or abscess Stable poorly defined nonenhancing hypoattenuated lesion within the left lobe ofthe liver No free fluid, air, or suspicious adenopathy Extensive degenerative bony changes with multiple chronic compression fractures in the visualized thoracic and lumbar spine Reading Location: [id number] Assessment & Plan Assessment/Plan (1) C. difficile colitis: (2) Acute kidney injury: PLAN: Plan Patient is a 70-year-old female who presented to [facility] ED on 04/27/2025 with diarrhea. 1. Recurrent C. difficile infection ? Admit under inpatient status to PCU. Initial C. difficile diagnosis in ED on 04/02. She had been on multiple antibiotic courses per her PCP for diverticulitis that presumably led to her C. difficile infection. CT abdomen pelvis showed pancolitis at that time but she was otherwise stable and discharged home from the ED on p.o. vancomycin. Completed 10-day course of p.o.vancomycin with resolution of diarrhea. Unfortunately had recurrence of diarrhea about 3 days prior to this admission. Stool testing again positive fortoxigenic C. difficile. CT abdomen pelvis again consistent with pancolitis. Will treat with p.o. vancomycin (fidaxomicin is not on formulary here) and per the guidelines will need a prolonged vancomycin taper on discharge. Will hold on GI consult for now but can consider as needed. 2. DIMA ? Creatinine 2.25 on admit, baseline around 0.8. Presumed prerenal due to GI losses as above. Given 3 L of IV fluids on admission, follow-up a.m. BMP and monitor urine output. Chronic medical conditions: ? Chronic pain syndrome: OARRS reviewed and patient has been filling home tramadol regularly. Continue home tramadol 4 times daily as needed. ? Rheumatoid arthritis: Stable. Continue home methotrexate weekly on Wednesdays. ? History of right hip fracture s/p right knee replacement complicated by right periprosthetic intertrochanteric fracture with surgical revision: Surgical revision was done by orthopedics here in July 2024. Patient reports no issues since then. DVT prophylaxis: Heparin subcu CODE STATUS: Full code, verified Expected disposition: Home, TBD Total clinical time spent by myself addressing the patient's medical issues, reviewing all the data, and collaborating with patient's care team: 75 minutes. Charges/Coding Visit Charges Inpatient E&M: 88267 Init Hosp L3 04/27/25 1518 <Electronically signed by Anand Contreras DO> Cosigner Signature (if applicable): CC: Dr. Anand Contreras DO; Dr. Patt Jones DO~ Signed [facility] Work Phone: 1(105) 142-500108-24-2025 Discharge summary Author Abdiel Briones [facility] Note Date/Time April 27, 2025 2: 14pm [facility] Medical Records Department [address] [place] [address] Emergency Department Summary 04/27/25 MR#: [id number] Acct: [id number] Name: GUNJAN CONNELL Rep #:[id number] : 1955 70 From: Abdiel Briones DO PCP: Dr. Patt Jones DO Status:RE G ER Location: ED HPI History of Present Illness Chief Complaint: Diarrhea Narrative Narrative: Patient is a 70-year-old female with past medical history of rheumatoid arthritis on methotrexate, iron deficiency anemia, gastric ulcer, hypertension, neuropathy, C. difficile who presents to the emergency department chief complaint diarrhea. Patient states that she believes that she may have C. difficile again. Patient states that she completed the course of antibiotics that she was prescribed. She states that she notes the last couple days she haddiarrhea that has been progressively worsening. States that today she has some abdominal discomfort associated with it as well as a lot of dry heaving. Patient denies any blood in her stool. Patient denies any blood thinning medications. [facility] Medical History Postoperative anemia Wears glasses Wears [...] Q 8 #0 tabs 08/19/24 01/11/25 Rx methotrexate sodium 2.5 mg tablet 15 mg (6 x 2.5 mg) P O We@1000 #0 08/19/24 01/08/25 Rx tabs cholecalciferol (vitamin D3) 125 250 mcg PO DAILY 01/0201/12/25 History mcg (5,000 unit) capsule tramadol 50 mg tablet 50 mg PO 4X/DAY PRN PRN pain 4 01/12/25 Unknown Rx days #15 tabs Allergy/AdvReac Type Severity Reaction Status Date / Time latex AdvReac Intermediate Rash Verified 04/27/25 11:26 Surgical History History of revision of total replacement of right hip joint History of hysterectomy History of carpal tunnel release of both wrists Hx of removal of cyst Hx of arthroscopy of right knee Hx of cholecystectomy Social History household members: spouse Smoking Status: Never smoker alcohol intake: never substance use type: does not use ROS ROS ED ROS Narrative Constitutional: Denies any fevers, chills, headaches Eyes: Denies double vision Cardiovascular: Denies chest pain Respiratory: Denies shortness of breath Abdomen: Complains of abdominal discomfort and diarrhea as noted above : Denies any urinary symptoms Neurological: Denies any numbness, weakness, tingling Musculoskeletal: Denies back pain Skin: Denies any rashes or lesions EXAM Physical Exam Narrative Exam Narrative: General: Patient is lying in bed rest comfortably did not appear to be acute distress Head: Atraumatic, normocephalic Eyes: PERRL bilaterally, EOMI bilateral, no conjunctival injection noted Neck: Soft, supple, trachea midline Cardiovascular: Patient tachycardic with a regular rhythm Respiratory: Clear to auscultation bilaterally Abdomen: Soft, nondistended, tender to palpation left lower quadrant no rebound or guarding on exam Extremities: +4/5 strength noted in the bilateral upper and lower extremities, radial pulses +2/4 in the bilateral extremities Neurological: Patient following commands knew that she was at [facility] year is 2024 Skin: Warm, dry, intact no rashes or lesions noted Const Vital Signs: 04/27/25 11:24 04/27/25 13:54 Temperature 98.1 F Temperature Source Oral Pulse Rate 101 H 91 Respiratory Rate 16 16 Blood Pressure 133/63 H 141/100 H Blood Pressure Mean 86 113 Pulse Ox 99 98 Oxygen Delivery Method Room Air Room Air MDM MDM MDM Narrative Medical decision making narrative: Patient is a 70-year-old female who presented to the emergency department for concern for C. difficile. On the differential diagnosis includes but not limited to diverticulitis, diverticulitis, viral gastroenteritis, C. difficile. Once the workup is obtained reviewed she will be reevaluated. Patient be given IV fluids, Zofran. Patient's CBC reviewed and showed no evidence of leukocytosis white blood count was 9.4, he was 13.2, platelet count 238. Patient sodium is 133, potassium 3.6,anion gap of 16 with a creatinine of 2.25 indicating acute kidney injury. Patient lactic acid elevated 2.2, patient CT ab pelvis IV contrast showed diffuse submucosal thickening and edema and multiple bowel loops particularly ofnote in the terminal ileum and cecum and throughout the mid and distal sigmoid consistent with diffuse colitis/enteritis no perforation or abscess. Stable poorly defined nonenhancing hypoattenuated lesion within the left lobe of the liver. At this point in time we will discuss case with hospitalist for admission for her C. difficile, DIMA, nausea and colitis enteritis. Discussed case with hospitalist Dr. Velazquez who accepted patient for admission. Patient notified as well as significant other at bedside they are agreeable thisplan all question concerns answered Lab Data Labs: Laboratory Results - last 24 hr 04/27/25 12:27 WBC 9.4 RBC 4.38 Hgb 13.2 Hct 39.6 MCV 90.4 MCH 30.1 MCHC 33.3 RDW Std Deviation 48.4 H RDW Coeff of Oly 14.7 H Plt Count 238 MPV 9.7 Immature Gran % (Auto) 0.700 Neut % (Auto) 71.3 H Lymph % (Auto) 10.6 L [place] % (Auto) 16.1 H Eos % (Auto) 0.3 Baso % (Auto) 1.0 Absolute Neuts (auto) 6.7 Absolute Lymphs (auto) 1.00 Nucleated RBC % 0 Differential Comment Sodium 133 Potassium 3.6 Chloride 97 L Carbon Dioxide 20.6 L Anion Gap 16 H BUN 43 H Creatinine 2.25 H Est GFR (MDRD) Non-Af 23 L BUN/Creatinine Ratio 19.1 Glucose 104 H Lactic Acid 2.2 H* Calcium 9.8 Total Bilirubin 1.25 AST 19 ALT 20 Alkaline Phosphatase 89 Total Protein 7.1 Albumin 3.9 Globulin 3.2 Albumin/Globulin Ratio 1.2 Lipase 51 Radiography Diagnostic Testing: Clinical Impression(s) from Imaging Studies Abdomen/Pelvis CT 04/27/25 11:44 IMPRESSION: Diffuse submucosal thickening and submucosal edema in multiple bowel loops particularly of note in the terminal ileum and cecum and throughout the mid and distal sigmoid consistent with diffuse colitis/enteritis. No perforation or abscess Stable poorly defined nonenhancing hypoattenuated lesion within the left lobe ofthe liver No free fluid, air, or suspicious adenopathy Extensive degenerative bony changes with multiple chronic compression fractures in the visualized thoracic and lumbar spine Reading Location: [id number] Discharge Plan Triage Chief Complaint: Diarrhea ED Provider: Abdiel Briones Dx/Rx/DC Orders Clinical Impression: Acute kidney injury, Colitis, C. difficile colitis, Diarrhea, Acidosis, lactic,Abdominal pain Prescriptions: No Action folic acid 1 mg Tablet 1 mg PO DAILYCM Qty: 0 0RF acetaminophen 500 mg Tablet 1,000 mg PO Q8 Qty: 0 0RF methotrexate sodium 2.5 mg Tablet 15 mg PO We@1000 Qty: 0 0RF cholecalciferol (vitamin D3) 125 mcg (5,000 unit) capsule 250 mcg PO DAILY tramadol 50 mg tablet 50 mg PO 4X/DAY PRN PRN (Reason: pain) 4 Days Qty: 15 0RF Primary Care Provider: Patt Jones Referrals: Patt Jones DO [Primary Care Provider] - Print Language: Hungarian Disposition Disposition: Acute Care Hospital [facility] What to do if you have Problems For any increased pain, shortness of breath, bleeding, nausea or vomiting, chestpain, or any unexpected problems, contact your Primary Care Provider. Call [facility] ([phone]) or report to the closest Emergency Room. Call 911 if necessary. 04/27/25 1414 <Electronically signed by Abdiel Briones DO> Cosigner Signature (if applicable): CC: Dr. Patt Jones DO ~ Signed [facility] Work Phone: 1(684) [phone] History and physical note [facility] Medical Records Department [address] [place] [address] H&P Exam - Hospitalist 04/27/25 1409 MR#: [id number] Acct: [id number] Name: GUNJAN CONNELL Rep #:[id number] : 1955 70 From: Anand duncan DO PCP: Dr. Patt Jones DO Status:AD M IN Location: [facility] [id number] HPI - General General Date of Admission: 04/27/25 Date of Service: 04/27/25 Chief Complaint: Diarrhea HPI Narrative GUNJAN CONNELL, is a 70 F who presented to [facility] ED on 04/27/2025 with diarrhea.Patient was recently found in the ED here on 04/02 to be positive for C. difficile. CT abdomen/pelvis at that time showed pancolitis. However, she was stable so she was able to be discharged home on p.o. vancomycin. She completed a 10-day course of vancomycin at home with resolutionof her diarrhea. However, she again began to have diarrhea about 3 days ago andhas been worsening, and she is concerned that she has C. difficile again. In the ED, stool sample was obtained and again showed toxigenic C. difficile. CT abdomen pelvis showed diffuse submucosal thickening and edema in multiple bowel loops in the terminal ileum down through the sigmoid colon consistent with diffuse colitis/enteritis. Labs otherwise notable for creatinine 2.25 (baselinearound 0.8), BUN 43, lactic acid 2.2. She was given 3 L of IV fluids and a doseof p.o. vancomycin in the ED, and hospitalist was contacted for admission. I saw the patient at bedside in the ED, was present. Patient was mildly fatigued appearing but otherwise laying back comfortably in bed, conversing normally, in no acute distress. Noted that she does feel somewhat better after the IV fluids. Has not had a bowel movement now for the pastfew hours. Deniesany fevers or chills. Denies any abdominal pain or discomfort. No other acute concerns at this time. Will be admitted for further management. [facility] Medical History Postoperative anemia Wears glasses Wears [...] Q 8 #0 tabs 08/19/24 01/11/25 Rx methotrexate sodium 2.5 mg tablet 15 mg (6 x 2.5 mg) P O We@1000 #0 08/19/24 01/08/25 Rx tabs cholecalciferol (vitamin D3) 125 250 mcg PO DAILY 01/0201/12/25 History mcg (5,000 unit) capsule tramadol 50 mg tablet 50 mg PO 4X/DAY PRN PRN pain 4 01/12/25 Unknown Rx days #15 tabs Allergy/AdvReac Type Severity Reaction Status Date / Time latex AdvReac Intermediate Rash Verified 04/27/25 11:26 Surgical History History of revision of total replacement of right hip joint History of hysterectomy History of carpal tunnel release of both wrists Hx of removal of cyst Hx of arthroscopy of right knee Hx of cholecystectomy Social History household members: spouse Smoking Status: Never smoker alcohol intake: never substance use type: does not use ROS Constitutional Constitutional: Reports fatigue; Denies chills, fever(s) or weakness Cardiovascular Cardiovascular: Denies chest pain Respiratory/Chest Respiratory/Chest: Denies shortness of breath at rest Gastrointestinal Gastrointestinal: Reports diarrhea and nausea; Denies abdominal pain, constipation or vomiting Musculoskeletal Musculoskeletal: Denies arthralgias or myalgias Neurologic Neurologic: Denies dizziness, focal weakness or headache(s) Vital Signs Vital Signs Vital Signs: 04/27/25 11:24 04/27/25 13:54 Temperature 98.1 F Temperature Source Oral Pulse Rate 101 H 91 Respiratory Rate 16 16 Blood Pressure 133/63 H 141/100 H Blood Pressure Mean 86 113 Pulse Ox 99 98 Oxygen Delivery Method Room Air Room Air Weight Weight: 67.086 kg Body Mass Index (BMI) 29.8 Physical Exam Const alert, oriented x3, no apparent distress and average body habitus Constitutional Narrative: Elderly female, mildly fatigued appearing but otherwise laying back comfortably in bed, conversing normally, in no acute distress. General Appearance: cooperative and comfortable HEENT normocephalic, head/scalp atraumatic, hearing grossly normal bilaterally, nasal mucous membranes and turbinates normal and moist oral mucous membranes Eyes PERRL, EOMs intact bilaterally and conjunctivae normal Neck full ROM Chest inspection of chest normal Resp normal respiratory effort, normal air movement, no use of accessory muscles and clear to auscultation bilaterally Cardio regular rate, regular rhythm, no murmurs and peripheral pulses 2+ throughout GI normal to inspection, nondistended, normoactive bowel sounds, soft to palpation,non-tender and non-distended Back/Spine normal ROM Extremity normal to inspection, full ROM and no pedal edema Skin no rashes or lesions noted Psych mental status grossly normal Results Lab / Micro Data 04/27/25 12:27 04/27/25 12:27 Labs: Laboratory Results - last 24 hr 04/27/25 12:27: WBC 9.4, RBC 4.38, Hgb 13.2, Hct 39.6, MCV 90.4, MCH 30.1, MCHC 33.3, RDW Std Deviation 48.4 H, RDW Coeff of Oly 14.7 H, Plt Count 238, MPV 9.7,Immature Gran % (Auto) 0.700, Neut % (Auto) 71.3 H, Lymph % (Auto) 10.6 L, [place] % (Auto) 16.1 H, Eos % (Auto) 0.3, Baso % (Auto) 1.0, Absolute Neuts (auto) 6.7,Absolute Lymphs (auto) 1.00, Nucleated RBC % 0, Differential Comment , Sodium 133, Potassium 3.6, Chloride 97 L, Carbon Dioxide 20.6 L, Anion Gap 16 H, BUN 43H, Creatinine 2.25 H,Est GFR (MDRD) Non-Af 23 L, BUN/Creatinine Ratio 19.1, Glucose 104 H, Lactic Acid 2.2 H*, Calcium 9.8, Total Bilirubin 1.25, AST 19, ALT20, Alkaline Phosphatase 89, Total Protein 7.1, Albumin 3.9, Globulin 3.2, Albumin/Globulin Ratio 1.2, Lipase 51 Micro: Microbiology 04/27/25 11:35 Stool Clostridioides difficile (PCR) - Final Imaging Radiology Impression Abdomen/Pelvis CT 04/27/25 11:44 IMPRESSION: Diffuse submucosal thickening and submucosal edema in multiple bowel loops particularly of note in the terminal ileum and cecum and throughout the mid and distal sigmoid consistent with diffuse colitis/enteritis. No perforationor abscess Stable poorly defined nonenhancing hypoattenuated lesion within the left lobe ofthe liver No free fluid, air, or suspicious adenopathy Extensive degenerative bony changes with multiple chronic compression fractures in the visualized thoracic and lumbar spine Reading Location: [id number] Assessment & Plan Assessment/Plan (1) C. difficile colitis: (2) Acute kidney injury: PLAN: Plan Patient is a 70-year-old female who presented to [facility] ED on 04/27/2025 with diarrhea. 1. Recurrent C. difficile infection ? Admit under inpatient status to PCU. Initial C. difficile diagnosis in ED on 04/02. She had been on multiple antibiotic courses per her PCP for diverticulitis that presumably led to her C. difficileinfection. CT abdomen pelvis showed pancolitis at that time but she was otherwise stable and discharged home from the ED on p.o. vancomycin. Completed 10-day course of p.o.vancomycin with resolution of diarrhea. Unfortunately had recurrence of diarrhea about 3 days prior to this admission. Stool testing again positive fortoxigenic C. difficile. CT abdomen pelvis again consistent with pancolitis. Will treat with p.o. vancomycin (fidaxomicin is not on formulary here) and per the guidelines will ne ed a prolonged vancomycin taper on discharge. Will hold on GI consult for now but can consider as needed. 2. DIMA ? Creatinine 2.25 on admit, baseline around 0.8. Presumed prerenal due to GI losses as above. Given3 L of IV fluids on admission, follow-up a.m. BMP and monitor urine output. Chronic medical conditions: ? Chronic pain syndrome: OARRS reviewed and patient has been filling home tramadol regularly. Continue home tramadol 4 times daily as needed. ? Rheumatoid arthritis: Stable. Continue home methotrexate weekly on Wednesdays. ? History of right hip fracture s/p right knee replacement complicated by right periprosthetic intertrochanteric fracture with surgical revision: Surgical revision was done by orthopedics here in July 2024. Patient reports no issues since then. DVT prophylaxis: Heparin subcu CODE STATUS: Full code, verified Expected disposition: Home, TBD Total clinical time spent by myself addressing the patient's medical issues, reviewing all the data, and collaborating with patient's care team: 75 minutes. Charges/Coding Visit Charges Inpatient E&M: 76510 Init Hosp L3 04/27/25 1518 Cosigner Signature (if applicable): CC: Dr. Anand Contreras, ; Dr. Patt Jones DO~ Signed [facility]08-24-2025 Discharge summary [facility] Medical Records Department [address] [place] [address] Emergency Department Summary 04/27/25 MR#: [id number] Acct: [id number] Name: GUNJAN CONNELL Rep #:[id number] : 1955 70 From: Abdiel Briones DO PCP: Dr. Patt Jones DO Status:RE G ER Location: ED HPI History of Present Illness Chief Complaint: Diarrhea Narrative Narrative: Patient is a 70-year-old female with past medical history of rheumatoid arthritis on methotrexate, iron deficiency anemia, gastric ulcer, hypertension, neuropathy, C. difficile who presents to the emergency department chief complaint diarrhea. Patient states that she believes that she may have C. di fficile again. Patient states that she completed the course of antibiotics that she was prescribed.She states that she notes the last couple days she haddiarrhea that has been progressively worsening. States that today she has some abdominal discomfort associated with it as well as a lot of dry heaving. Patient denies any blood in her stool. Patient denies any blood thinning medications. [facility] Medical History Postoperative anemia Wears glasses Wears [...] Q 8 #0 tabs 08/19/24 01/11/25 Rx methotrexate sodium 2.5 mg tablet 15 mg (6 x 2.5 mg) P O We@1000 #0 08/19/24 01/08/25 Rx tabs cholecalciferol (vitamin D3) 125 250 mcg PO DAILY 01/0201/12/25 History mcg (5,000 unit) capsule tramadol 50 mg tablet 50 mg PO 4X/DAY PRN PRN pain 4 01/12/25 Unknown Rx days #15 tabs Allergy/AdvReac Type Severity Reaction Status Date / Time latex AdvReac Intermediate Rash Verified 04/27/25 11:26 Surgical History History of revision of total replacement of right hip joint History of hysterectomy History of carpal tunnel release of both wrists Hx of removal of cyst Hx of arthroscopy of right knee Hx of cholecystectomy Social History household members: spouse Smoking Status: Never smoker alcohol intake: never substance use type: does not use ROS ROS ED ROS Narrative Constitutional: Denies any fevers, chills, headaches Eyes: Denies double vision Cardiovascular: Denies chest pain Respiratory: Denies shortness of breath Abdomen: Complains of abdominal discomfort and diarrhea as noted above : Denies any urinary symptoms Neurological: Denies any numbness, weakness, tingling Musculoskeletal: Denies back pain Skin: Denies any rashes or lesions EXAM Physical Exam Narrative Exam Narrative: General: Patient is lying in bed rest comfortably did not appear to be acute distress Head: Atraumatic, normocephalic Eyes: PERRL bilaterally, EOMI bilateral, no conjunctival injection noted Neck: Soft, supple, trachea midline Cardiovascular: Patient tachycardic with a regular rhythm Respiratory: Clear to auscultation bilaterally Abdomen: Soft, nondistended, tender to palpation left lower quadrant no rebound or guarding on exam Extremities: +4/5 strength noted in the bilateral upper and lower extremities, radial pulses +2/4 in the bilateral extremities Neurological: Patient following commands knew that she was at [facility] year is 2024 Skin: Warm, dry, intact no rashes or lesions noted Const Vital Signs: 04/27/25 11:24 04/27/25 13:54 Temperature 98.1 F Temperature Source Oral Pulse Rate 101 H 91 Respiratory Rate 16 16 Blood Pressure 133/63 H 141/100 H Blood Pressure Mean 86 113 Pulse Ox 99 98 Oxygen Delivery Method Room Air Room Air MDM MDM MDM Narrative Medical decision making narrative: Patient is a 70-year-old female who presented to the emergency department for concern for C. difficile. On the differential diagnosis includes but not limited to diverticulitis, diverticulitis, viralgastroenteritis, C. difficile. Once the workup is obtained reviewed she will be reevaluated. Patient be given IV fluids, Zofran. Patient's CBC reviewed and showed no evidence of leukocytosis white blood count was 9.4, he was 13.2, platelet count 238. Patient sodium is 133, potassium 3.6,anion gap of 16 with a creatinine of 2.25 indicating acute kidney injury. Patient lactic acid elevated 2.2, patient CT ab pelvis IV contrastshowed diffuse submucosal thickening and edema and multiple bowel loops particularly ofnote in the terminal ileum and cecum and throughout the mid and distal sigmoid consistent with diffuse colitis/enteritis no perforation or abscess. Stable poorly defined nonenhancing hypoattenuated lesion within the left lobe of the liver. At this point in time we will discuss case with hospitalist for admission for her C. difficile, DIMA, nausea and colitis enteritis. Discussed case with hospitalist Dr. Velazquez who accepted patient for admission. Patient notified as well as significant other at bedside they are agreeable thisplan all question concerns answered Lab Data Labs: Laboratory Results - last 24 hr 04/27/25 12:27 WBC 9.4 RBC 4.38 Hgb 13.2 Hct 39.6 MCV 90.4 MCH 30.1 MCHC 33.3 RDW Std Deviation 48.4 H RDW Coeff of Oly 14.7 H Plt Count 238 MPV 9.7 Immature Gran % (Auto) 0.700 Neut % (Auto) 71.3 H Lymph % (Auto) 10.6 L [place] % (Auto) 16.1 H Eos % (Auto) 0.3 Baso % (Auto) 1.0 Absolute Neuts (auto) 6.7 Absolute Lymphs (auto) 1.00 Nucleated RBC % 0 Differential Comment Sodium 133 Potassium 3.6 Chloride 97 L Carbon Dioxide 20.6 L Anion Gap 16 H BUN 43 H Creatinine 2.25 H Est GFR (MDRD) Non-Af 23 L BUN/Creatinine Ratio 19.1 Glucose 104 H Lactic Acid 2.2 H* Calcium 9.8 Total Bilirubin 1.25 AST 19 ALT 20 Alkaline Phosphatase 89 Total Protein 7.1 Albumin 3.9 Globulin 3.2 Albumin/Globulin Ratio 1.2 Lipase 51 Radiography Diagnostic Testing: Clinical Impression(s) from Imaging Studies Abdomen/Pelvis CT 04/27/25 11:44 IMPRESSION: Diffuse submucosal thickening and submucosal edema in multiple bowel loops particularly of note in the terminal ileum and cecum and throughout the mid and distal sigmoid consistent with diffuse colitis/enteritis. No perforationor abscess Stable poorly defined nonenhancing hypoattenuated lesion within the left lobe ofthe liver No free fluid, air, or suspicious adenopathy Extensive degenerative bony changes with multiple chronic compression fractures in the visualized thoracic and lumbar spine Reading Location: [facility] Discharge Plan Triage Chief Complaint: Diarrhea ED Provider: Abdiel Briones Dx/Rx/DC Orders Clinical Impression: Acute kidney injury, Colitis, C. difficile colitis, Diarrhea, Acidosis, lactic,Abdominal pain Prescriptions: No Action folic acid 1 mg Tablet 1 mg PO DAILYCM Qty: 0 0RF acetaminophen 500 mg Tablet 1,000 mg PO Q8 Qty: 0 0RF methotrexate sodium 2.5 mg Tablet 15 mg PO We@1000 Qty: 0 0RF cholecalciferol (vitamin D3) 125 mcg (5,000 unit) capsule 250 mcg PO DAILY tramadol 50 mg tablet 50 mg PO 4X/DAY PRN PRN (Reason: pain) 4 Days Qty: 15 0RF Primary Care Provider: Patt Jones Referrals: Patt Jones DO [Primary Care Provider] - Print Language: Hungarian Disposition Disposition: Acute Care Hospital [facility] What to do if you have Problems For any increased pain, shortness of breath, bleeding, nausea or vomiting, chestpain, or any unexpected problems, contact your Primary Care Provider. Call [facility] ([phone]) or report tothe closest Emergency Room. Call 911 if necessary. 04/27/25 1414 Cosigner Signature (if applicable): CC: Dr. Patt Jones DO ~ Signed [facility]08-24-2025 Discharge summary Author Abdiel Briones [facility] Note Date/Time April 27, 2025 2: 14pm [facility] Medical Records Department [address] [place] [address] Emergency Department Summary 04/27/25 MR#: [id number] Acct: [id number] Name: GUNJAN CONNELL Rep #:[id number] : 1955 70 From: Abdiel Briones DO PCP: Dr. Patt Jones DO Status:RE G ER Location: ED HPI History of Present Illness Chief Complaint: Diarrhea Narrative Narrative: Patient is a 70-year-old female with past medical history of rheumatoid arthritis on methotrexate, iron deficiency anemia, gastric ulcer, hypertension, neuropathy, C. difficile who presents to the emergency department chief complaint diarrhea. Patient states that she believes that she may have C. difficile again. Patient states that she completed the course of antibiotics that she was prescribed. She states that she notes the last couple days she haddiarrhea that has been progressively worsening. States that today she has some abdominal discomfort associated with it as well as a lot of dry heaving. Patient denies any blood in her stool. Patient denies any blood thinning medications. [facility] Medical History Postoperative anemia Wears glasses Wears [...] Q 8 #0 tabs 08/19/24 01/11/25 Rx methotrexate sodium 2.5 mg tablet 15 mg (6 x 2.5 mg) P O We@1000 #0 08/19/24 01/08/25 Rx tabs cholecalciferol (vitamin D3) 125 250 mcg PO DAILY 01/0201/12/25 History mcg (5,000 unit) capsule tramadol 50 mg tablet 50 mg PO 4X/DAY PRN PRN pain 4 01/12/25 Unknown Rx days #15 tabs Allergy/AdvReac Type Severity Reaction Status Date / Time latex AdvReac Intermediate Rash Verified 04/27/25 11:26 Surgical History History of revision of total replacement of right hip joint History of hysterectomy History of carpal tunnel release of both wrists Hx of removal of cyst Hx of arthroscopy of right knee Hx of cholecystectomy Social History household members: spouse Smoking Status: Never smoker alcohol intake: never substance use type: does not use ROS ROS ED ROS Narrative Constitutional: Denies any fevers, chills, headaches Eyes: Denies double vision Cardiovascular: Denies chest pain Respiratory: Denies shortness of breath Abdomen: Complains of abdominal discomfort and diarrhea as noted above : Denies any urinary symptoms Neurological: Denies any numbness, weakness, tingling Musculoskeletal: Denies back pain Skin: Denies any rashes or lesions EXAM Physical Exam Narrative Exam Narrative: General: Patient is lying in bed rest comfortably did not appear to be acute distress Head: Atraumatic, normocephalic Eyes: PERRL bilaterally, EOMI bilateral, no conjunctival injection noted Neck: Soft, supple, trachea midline Cardiovascular: Patient tachycardic with a regular rhythm Respiratory: Clear to auscultation bilaterally Abdomen: Soft, nondistended, tender to palpation left lower quadrant no rebound or guarding on exam Extremities: +4/5 strength noted in the bilateral upper and lower extremities, radial pulses +2/4 in the bilateral extremities Neurological: Patient following commands knew that she was at [facility] year is 2024 Skin: Warm, dry, intact no rashes or lesions noted Const Vital Signs: 04/27/25 11:24 04/27/25 13:54 Temperature 98.1 F Temperature Source Oral Pulse Rate 101 H 91 Respiratory Rate 16 16 Blood Pressure 133/63 H 141/100 H Blood Pressure Mean 86 113 Pulse Ox 99 98 Oxygen Delivery Method Room Air Room Air MDM MDM MDM Narrative Medical decision making narrative: Patient is a 70-year-old female who presented to the emergency department for concern for C. difficile. On the differential diagnosis includes but not limited to diverticulitis, diverticulitis, viral gastroenteritis, C. difficile. Once the workup is obtained reviewed she will be reevaluated. Patient be given IV fluids, Zofran. Patient's CBC reviewed and showed no evidence of leukocytosis white blood count was 9.4, he was 13.2, platelet count 238. Patient sodium is 133, potassium 3.6,anion gap of 16 with a creatinine of 2.25 indicating acute kidney injury. Patient lactic acid elevated 2.2, patient CT ab pelvis IV contrast showed diffuse submucosal thickening and edema and multiple bowel loops particularly ofnote in the terminal ileum and cecum and throughout the mid and distal sigmoid consistent with diffuse colitis/enteritis no perforation or abscess. Stable poorly defined nonenhancing hypoattenuated lesion within the left lobe of the liver. At this point in time we will discuss case with hospitalist for admission for her C. difficile, DIMA, nausea and colitis enteritis. Discussed case with hospitalist Dr. Velazquez who accepted patient for admission. Patient notified as well as significant other at bedside they are agreeable thisplan all question concerns answered Lab Data Labs: Laboratory Results - last 24 hr 04/27/25 12:27 WBC 9.4 RBC 4.38 Hgb 13.2 Hct 39.6 MCV 90.4 MCH 30.1 MCHC 33.3 RDW Std Deviation 48.4 H RDW Coeff of Oly 14.7 H Plt Count 238 MPV 9.7 Immature Gran % (Auto) 0.700 Neut % (Auto) 71.3 H Lymph % (Auto) 10.6 L [place] % (Auto) 16.1 H Eos % (Auto) 0.3 Baso % (Auto) 1.0 Absolute Neuts (auto) 6.7 Absolute Lymphs (auto) 1.00 Nucleated RBC % 0 Differential Comment Sodium 133 Potassium 3.6 Chloride 97 L Carbon Dioxide 20.6 L Anion Gap 16 H BUN 43 H Creatinine 2.25 H Est GFR (MDRD) Non-Af 23 L BUN/Creatinine Ratio 19.1 Glucose 104 H Lactic Acid 2.2 H* Calcium 9.8 Total Bilirubin 1.25 AST 19 ALT 20 Alkaline Phosphatase 89 Total Protein 7.1 Albumin 3.9 Globulin 3.2 Albumin/Globulin Ratio 1.2 Lipase 51 Radiography Diagnostic Testing: Clinical Impression(s) from Imaging Studies Abdomen/Pelvis CT 04/27/25 11:44 IMPRESSION: Diffuse submucosal thickening and submucosal edema in multiple bowel loops particularly of note in the terminal ileum and cecum and throughout the mid and distal sigmoid consistent with diffuse colitis/enteritis. No perforation or abscess Stable poorly defined nonenhancing hypoattenuated lesion within the left lobe ofthe liver No free fluid, air, or suspicious adenopathy Extensive degenerative bony changes with multiple chronic compression fractures in the visualized thoracic and lumbar spine Reading Location: [facility] Discharge Plan Triage Chief Complaint: Diarrhea ED Provider: Abdiel Brioens Dx/Rx/DC Orders Clinical Impression: Acute kidney injury, Colitis, C. difficile colitis, Diarrhea, Acidosis, lactic,Abdominal pain Prescriptions: No Action folic acid 1 mg Tablet 1 mg PO DAILYCM Qty: 0 0RF acetaminophen 500 mg Tablet 1,000 mg PO Q8 Qty: 0 0RF methotrexate sodium 2.5 mg Tablet 15 mg PO We@1000 Qty: 0 0RF cholecalciferol (vitamin D3) 125 mcg (5,000 unit) capsule 250 mcg PO DAILY tramadol 50 mg tablet 50 mg PO 4X/DAY PRN PRN (Reason: pain) 4 Days Qty: 15 0RF Primary Care Provider: Patt Jones Referrals: Patt Jones DO [Primary Care Provider] - Print Language: Hungarian Disposition Disposition: Acute Care Hospital [facility] What to do if you have Problems For any increased pain, shortness of breath, bleeding, nausea or vomiting, chestpain, or any unexpected problems, contact your Primary Care Provider. Call [facility] ([phone]) or report to the closest Emergency Room. Call 911 if necessary. 04/27/25 1414 <Electronically signed by Abdiel Briones DO> Cosigner Signature (if applicable): CC: Dr. Patt Jones DO ~ Signed [facility] Work Phone: 1(606) 528-219908-24-2025 Radiology Diagnostic study note [facility] Imaging Services [address] [place] [address] Abdomen/Pelvis W IV Cont ONLY MR#: [id number] Acct: [id number] Name: GUNJAN CONNELL Rep #: [id number] : 1955 F 70 From: Brian Jones MD PCP: Dr. Patt Jones DO Status: RE G ER Study:Abdomen/Pelvis W IV Cont ONLY Date of E xam: 04/27/25 Exam# [id number] Ordering Dr: Bindu Briones DO PROCEDURE: ABDOMEN/PELVIS W IV CONT ONLY 04/27/2025 REASON FOR EXAM: LLQ PAIN TECHNIQUE: ABDOMEN/PELVIS W IV CONT ONLY Coronal and Sagittal reconstruction series were provided. CONTRAST: Isovue 370 VOLUME: 100 mL One or more dose reduction techniques were used (e.g., Automated exposure control, adjustment of the mA and/or kV according to patient size, use of iterative reconstruction technique. RADIATION DOSE SUMMARY: CTDlvol: 40.32 mGy DLP: 1044.30 mGycm COMPARISON: 04/02/2025 FINDINGS: Lung bases: Chronic interstitial changes in the lung bases without a superimposed acute pulmonary process small hiatal hernia with thickening of the distal esophagus suggesting reflux esophagitis Liver: Stable appearance of a poorly defined, unenhanced hypoattenuated lesion in the left lobe of the liver. Stable intrahepatic biliary dilatation consistent with sequela from cholecystectomy. Stable subcentimeter simple cysts Gallbladder: Surgically absent. Spleen: Normal size. Pancreas: Normal size without evidence of mass surrounding inflammation or ductal dilation. Adrenals: Unremarkable Kidneys: No obstructive uropathy or suspicious solid renal lesion, stable parapelvic renal cysts Bladder: Incompletely distended Reproductive Organs: Surgically removed Bowel: Multiple bowel loops show submucosal thickening and edema consistent withdiffuse enteritis/colitis this is of particular note in the distal terminal ileum and cecum as well as in the mid and distal sigmoid. There are scattered colonic diverticula without CT evidence of acute diverticulitis. Appendix: Not visualized Lymph nodes: No suspicious mesenteric or retroperitoneal lymph nodes Vasculature: Mild diffuse atherosclerotic calcifications are noted. Peritoneum / Retroperitoneum: No free fluid or air Bones: Multilevel degenerative changes with multiple chronic compression fractures noted throughoutthe visualized thoracic and lumbar spine replaced right hip joint free of complication CT/Abdomen/Pelvis W IV Cont ONLY IMPRESSION: Diffuse submucosal thickening and submucosal edema in multiple bowel loops particularly of note in the terminal ileum and cecum and throughout the mid and distal sigmoid consistent with diffuse colitis/enteritis. No perforationor abscess Stable poorly defined nonenhancing hypoattenuated lesion within the left lobe ofthe liver No free fluid, air, or suspicious adenopathy Extensive degenerative bony changes with multiple chronic compression fractures in the visualized thoracic and lumbar spine Reading Location: [facility] CC: Dr. Patt Jones DO; Dr. Abdiel Briones DO ~ Plateman: Signed [facility]07-30-2025 Discharge summary [facility] Medical Records Department [address] [place] [address] Emergency Department Summary 04/02/25 MR#: [id number] Acct: [id number] Name: GUNJAN CONNELL Rep #:[id number] : 1955 70 From: Brady stanley DO PCP: Dr. Patt Jones DO Status:RE G ER Location: ED ADDENDUM by Dr. Oliver Valles DO on 04/02/25 at 1759 Care of the patient was turned over to me pending CT scan and lab work. CBC wasreviewed. Hemoglobinwas stable at 11.8 and hematocrit 35.9.. There is a mild leukocytosis of 17.0. Comprehensive metabolic profile was reviewed and was within normal limits. Lipase was reviewed and was normal. Urinalysis was reviewed. There is no evidence of urinary tract infection or hematuria. CT scan of the abdomenpelvis was reviewed. There is evidence of pancolitis. There is no evidence of bowel obstruction or perforation. There is no free air or free fluid. There is diverticulosis but no evidence of diverticulitis. Thiswas interpreted by the radiologist as also independently reviewed by myself. Patient wasadvised of her findings. Patient was given her [...] the plan. All questions were answered. 04/02/25 0629 Cosigner Signature (if applicable): cc: Dr. Patt Jones DO ~* Signed ADDENDUM by Dr. Brady Marin DO on 04/02/25 at 1632 UA negative for UTI. 04/02/25 1632 Cosigner Signature (if applicable): cc: Dr. Patt [...] of proportion. Stool light in color on glovedfinger. : No CVA tenderness Musc: Full ROM, no deformity Skin: Warm, dry Neuro: Alert, oriented, grossly intact, sensation intact Psych: Cooperative, appropriate mood and affect [facility] Medical History Postoperative anemia Wears glasses Wears [...] % (Auto) Cancelled Lymph % (Auto) Cancelled [place] % (Auto) Cancelled Eos % (Auto) Cancelled [...] Drop Cells Cancelled Ovalocytes Cancelled Stomatocytes Cancelled [place] Bodies Cancelled [place] Cells Cancelled Bite Cells Cancelled Crenated Cell [...] Clarity Clear Urine pH 6.0 Ur Specific [place] 1.025 Urine Protein 15 H Urine Glucose [...] if symptoms change or worsen. Print Language: Hungarian Disposition Disposition: Home, Self Care What to do if you have Problems For any increased pain, shortness of breath, bleeding, nausea or vomiting, chestpain, or any unexpected problems, contact your Primary Care Provider. Call [facility] ([phone]) or report tothe closest Emergency Room. Call 911 if necessary. 04/02/25 1631 Cosigner Signature (if applicable): CC: Dr. Patt Jones DO ~ Signed [facility]07-30-2025 Radiology Diagnostic study note [facility] Imaging Services [address] [place] [address] Abdomen/Pelvis W IV Cont ONLY MR#: [id number] Acct: [id number] Name: GUNJAN CONNELL Rep #: [id number] : 1955 F 70 From: Iman Olivares MD PCP: Dr. Patt Jones DO Status: RE G ER Study:Abdomen/Pelvis W IV Cont ONLY Date of E xam: 04/02/25 Exam# [id number] Ordering Dr: Brady Don DO PROCEDURE: ABDOMEN/PELVIS [...] multiphasic CT/MR for further evaluation. Reading Location: [id number] CC: Dr. Brady Marin DO; Dr. Patt Jones DO ~ Plateman: Signed [facility]07-30-2025 Discharge summary Author Brady Marin [facility] Note Date/Time April 02, 2025 5:59 pm [facility] Medical Records Department [address] [place] [address] Emergency Department Summary 04/02/25 MR#: [id number] Acct: [id number] Name: GUNJAN CONNELL Rep #:[id number] : [...] intact Psych: Cooperative, appropriate mood and affect [facility] Medical History Postoperative anemia Wears glasses Wears [...] % (Auto) Cancelled Lymph % (Auto) Cancelled [place] % (Auto) Cancelled Eos % (Auto) Cancelled [...] Drop Cells Cancelled Ovalocytes Cancelled Stomatocytes Cancelled [place] Bodies Cancelled Gia Cells Cancelled Bite Cells Cancelled Crenated Cell [...] Clarity Clear Urine pH 6.0 Ur Specific [place] 1.025 Urine Protein 15 H Urine Glucose [...] if symptoms change or worsen. Print Language: Hungarian Disposition Disposition: Home, Self Care What to do if you have Problems For any increased pain, shortness of breath, bleeding, nausea or vomiting, chestpain, or any unexpected problems, contact your Primary Care Provider. Call [facility] ([phone]) or report to the closest Emergency Room. Call 911 if necessary. 04/02/25 1631 <Electronically signed by Brady Marin DO> Cosigner Signature (if applicable): CC: Dr. Patt Jones DO ~ Signed [facility] Work Phone: 1(839) 392-701707-07-2025 Evaluation note* Diagnosis Onset Date Resolution Status Admit Date Acute pain of left hip acute Ju ly 2024 11:04am [facility] Work Phone: 1(574) 585-271807-07-2025 Evaluation note* Diagnosis Onset Date Resolution Status Admit Date Acute pain of left hip acute Ju ly 2024 11:04am Bilateral lower extremity edema acut e March 21, 2025 11:02am [facility] Work Phone: 1(110) 426-535007-07-2025 Evaluation note* Diagnosis Onset Date Resolution Status Admit Date Acute pain of left hip acute Ju ly 2024 11:04am Bilateral lower extremity edema acut e March 21, 2025 11:02am Abdominal pain acute April 2:13pm Acidosis, lactic acute April 052024 2:13pm Acute kidney injury acute Aprus t 2024 2:13pm C. difficile colitis acute [facility] 2024 2:13pm Colitis acute April 27, 2 025 2:13pm Diarrhea acute April 27, 2 025 2:13pm [facility] Work Phone: 1(194) 905-616207-07-2025 [facility] [place] [address] OFFICE VISIT Date of Service: 03/10/25 MR#: [id number] Acct: [id number] Patient: GUNJAN CONNELL Rep #: [id number] : 1955 Provider: TONY Taylor Age/Sex: 70/F Location: [facility] Status: Signed Intake Vital Signs 01/12/25 14:05 03/10/25 11:22 Height 4 ft 11 in BP 125/85 H Blood Pressure Location Lt brachial Position Sitting Respiration 16 Pulse 71 Pulse Source Monitor Temp 98.1 F Temp Source Oral Pulse Oximetry (%) 98 Intake Visit Reasons: L HIP PAIN FROM FALL Chief Complaint: left Hip pain 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 Pain mostly on back side about a 7 out of 10. PFSH Medical History Postoperative anemia Wears glasses Wears [...] on her left side. Patient states that Monday night she fell on asphalt in the parking lot. She fell back on her buttocks andthen hit her shoulder and her head. What hurts the worst today is her buttock. It hurts when she sits or stands. She has not used any psmw-czb-zdxevtc medication for this. She is not on any blood thinners. She does ambulate with a cane. ROS Const Constitutional: Positive for other (ROS negative x 6 except what is described above) Exam Const General: cooperative, healthy appearing and no acute distress Nutritional Appearance: average body habitus Orientation: alert, awake and oriented x3 [facility] Head: normal to inspection and atraumatic Ears: [...] 03/10/25 1134 Preston JIMENEZ> Date _ Nerissa JIMENEZ Cosigner Signature: Date (if applicable) CC: ~ [facility]07-07-2025 Radiology Diagnostic study note [facility] Imaging Services [address] [place], [place] [address] HIP, UNI W/ Pelvis 2-3 Views MR#: [id number] Acct: [id number] Name: GUNJAN CONNELL Rep #: [id number] : 1955 F 70 From: Houston Mendieta DO PCP: Dr. Patt Jones DO Status: RE G CLI Study:HIP, UNI W/ Pelvis 2-3 Views Date of Ex am: 03/10/25 Exam# [id number] Ordering Dr: Nerissa Rahman PROCEDURE: HIP, UNI [...] No acute fractures or dislocations. Reading Location: [id number] CC: Dr. Patt Jones DO; TONY Taylor ~ Plateman: Signed [facility]06-19-2025 Radiology Diagnostic study note [facility] Imaging Services [address] [place] [id number] Abdomen/Pelvis without Cont MR#: [id number] Acct: [id number] Name: GUNJAN CONNELL Rep #: [id number] : 1955 F 69 From: Gissel Cordero MD PCP: Dr. Patt Jones DO Status: RE G CLI Study:Abdomen/Pelvis without Cont Date of Exa m: 02/19/25 Exam# [id number] Ordering Dr: Jd Jones DO PROCEDURE: ABDOMEN/PELVIS [...] the stomach suggestive of gastritis. [facility] CC: Dr. Patt Jones, DO ~ Plateman: Signed [facility]05-15-2025 Radiology Diagnostic study note [facility] Imaging Services [address] [place] [address] Abdomen Complete MR#: [id number] Acct: [id number] Name: GUNJAN CONNELL Rep #: [id number] : 1955 F 69 From: Joseph Price MD PCP: Dr. Patt Jones DO Status: RE G CLI Study:Abdomen Complete Date of Exam: Exam# [id number] Ordering Dr: Jd Jones DO PROCEDURE: ABDOMEN [...] renal cyst. Minimal left hydronephrosis. Reading Location: [id number] CC: Dr. Patt Jones DO ~ Plateman: Signed [facility]05-11-2025 Discharge summary [facility] Medical Records Department [address] [place] [address] Emergency Department Summary 01/12/25 MR#: [id number] Acct: [id number] Name: GUNJAN CONNELL Rep #:[id number] : 1955 69 From: Ramu Romero MD [...] every day but not longer than that. [facility] Medical History Postoperative anemia Wears glasses Wears [...] % (Auto) 69.7 Lymph % (Auto) 20.3 [place] % (Auto) 8.6 Eos % (Auto) 0.5 [...] - As soon as possible Print Language: Hungarian Disposition Disposition: Home, Self Care What to do if you have Problems For any increased pain, shortness of breath, bleeding, nausea or vomiting, chestpain, or any unexpected problems, contact your Primary Care Provider. Call [facility] ([phone]) or report tothe closest Emergency Room. Call 911 if necessary. 01/12/25 1613 Cosigner Signature (if applicable): CC: Dr. Patt Jones DO ~ Signed [facility]05-11-2025 Discharge summary Author Ramu Romero [facility] Note Date/Time January 12, 2025 4:13p m [facility] Medical Records Department [address] [place] [address] Emergency Department Summary 01/12/25 MR#: [id number] Acct: [id number] Name: GUNJAN CONNELL Rep #:[id number] : 1955 69 From: Ramu Romero MD [...] every day but not longer than that. [facility] Medical History Postoperative anemia Wears glasses Wears [...] Oxygen Delivery Method Room Air Room Air 05/11/25 16:04 Temperature Temperature Source Pulse Rate 73 [...] % (Auto) 69.7 Lymph % (Auto) 20.3 [place] % (Auto) 8.6 Eos % (Auto) 0.5 [...] - As soon as possible Print Language: Hungarian Disposition Disposition: Home, Self Care What to do if you have Problems For any increased pain, shortness of breath, bleeding, nausea or vomiting, chestpain, or any unexpected problems, contact your Primary Care Provider. Call [facility] ([phone]) or report to the closest Emergency Room. Call 911 if necessary. 01/12/25 1613 <Electronically signed by Ramu Romero MD> Cosigner Signature (if applicable): CC: Dr. Patt Jones DO ~ Signed [facility] Work Phone: 1(960) 182-957503-03-2025 Evaluation note* Diagnosis Onset Date Resolution Status Admit Date Orthopedic aftercare acute [facility] 2024 3:18pm Periprosthetic fracture arou nd internal prosthetic right hip joint acute November 04, 2024 3:18pm Rheumatoid arthritis acute [facility] 2024 3:18pm [facility] Work Phone: 1(980) 982-797412-16-2024 [facility]12-02-2024 [facility]12-02-2024 [facility] 07-26-2024 Evaluation note* Diagnosis Onset Date Resolution Status Admit Date Current use of anticoagulant therapy acute July 26 8:42am Elevated blood-pressure reading without diagnosis of hypertension acute July 26 8:42am Neuropathy acute July 26, 2024 8:42am Other acute postprocedural pain acute July 26 024 8:42am Periprosthetic fracture arou nd internal prosthetic right hip joint acute July 26 8:42am Periprosthetic fracture arou nd internal prosthetic right hip joint, initial acute July 26 8:42am Acute hypokalemia resolved Kam r 2023 8:42am Postoperative anemia inactive [facility] 2023 8:42am Debility acute August 05, 2024 6:39pm Essential (primary) hypertension acute August 05 6:39pm Gastric ulcer acute August 6:39pm Iron deficiency anemia acute De cember 2023 6:39pm Periprosthetic fracture arou nd internal prosthetic right hip joint acute August 05 6:39pm Rheumatoid arthritis acute Dece 2023 6:39pm Vitamin D deficiency acute Dece [facility] 2023 6:39pm Encephalopathy resolved August 052023 6:39pm Hypokalemia resolved August 05, 2024 6:39pm Orthopedic aftercare acute Rajat rodriguez 2024 10:48am Orthopedic aftercare acute [facility] 2024 3:18pm Periprosthetic fracture arou nd internal prosthetic right hip joint acute November 04, 2024 3:18pm Rheumatoid arthritis acute [facility] 2024 3:18pm [facility] Work Phone: 1(848) 353-185411-22-2024 [facility]11-12-2024 [facility]09-30-2023 Discharge summary Author Ramu Romero [facility] June 03, 2023 6:16pm Note Date/Time June 03, 2023 5:00pm [facility] Medical Records Department [address] [place] [address] Emergency Department Summary 06/03/23 MR#: [id number] Acct: [id number] Name: BECKIGUNJAN Magdi Rep #:[id number] : 1955 68 From: Ramu Romero MD [...] lately, thinks maybe she is favoring it. [facility] Medical History Cochlear implant in place Hx [...] 74.8 H Lymph % (Auto) 12.5 L [place] % (Auto) 12.1 H Eos % (Auto) [...] EDT , Management Discussion w/another healthcare provider: Acquisition Specialist (Valentino Blankenship) Procedures Other Procedures Procedure(s): Left [...] your Primary Care Provider. Call [facility] ([phone]) or report to the closest Emergency Room. Call 911 if necessary. 06/03/231815 <Electronically signed by Ramu Romero MD> Cosigner Signature (if applicable): CC: Dr. Patt Jones DO ~ Signed [facility] Work Phone: 1(488) 826-313604-09-2021 Instructions* Name Dates Details Patient Instructions Start:11-Dec-2020 Instruction Type:Provider Instructions for Treatment How to Access Health Informa tion Online using Patient Portal and 3rd [employer] Apps Start:11-Dec-2020 Instruction Type:Patient Education Patient Instructions Start:04-Dec-2020 Instruction Type:Provider Instructions for Treatment How to Access Health Informa tion Online using Patient Portal and 3rd [employer] Apps Start:04-Dec-2020 Instruction Type:Patient Education How to Access Health Informa tion Online using Patient Portal and 3rd [employer] Apps Start:20-Nov-2020 Instruction Type:Patient Education Patient Instructions [...] Internal Medicine; [facility] Work Phone: consult note Author Marylu Bojorquez [facility] Note Date/Time April 28, 2025 2: 18pm [facility] Medical Records Department [address] [place] [address] Counseling Note - Pharmacy 04/28/25 1417 MR#: [id number] Acct: [id number] Name: GUNJAN CONNELL Rep #:[id number] : 1955 70 From: Marylu Bojorquez PCP: Dr. Patt Jones, DO Status:AD M IN Y [facility] Counseling Pharmacy Service has performed discharge medication reconciliation and counseling for this patient. Patient in contact precautions, counseled via telephone. 1. VANCOMYCIN 125MG PO Q6H X 10 DAYS, THEN 125MG PO BID X 7 DAYS, THEN DAILY X 7DAYS, THEN QODAY X 14 DAYS The patient's discharge medication list was reviewed for discrepancies and discrepancies were resolved. The patient was counseled on the following discharge medications and changes in medications for homegoing were reviewed. The Reason for Use, instructions for use, and potential side effects were reviewed for all new medications. The patient's questions regarding all of their medications were answered. The patient was able to verbally demonstrate an understanding of their dischargemedications. Medications at Discharge Home Medications folic acid 1 mg tablet 1 mg PO DAILYCM Supplement #0 tabs 08/05/24 acetaminophen 500 mg tablet 1,000 mg (2 x 500 mg) PO Q8 pain #0 tabs 08/19/24 methotrexate sodium 2.5 mg tablet 15 mg (6 x 2.5 mg) PO We@1000 #0 tabs 08/19/24 cholecalciferol (vitamin D3) 125 mcg (5,000 unit) capsule 250 mcg PO DAILY 01/12/25 tramadol 50 mg tablet 50 mg PO 4X/DAY PRN PRN pain 4 days #15 tabs 01/12/25 vancomycin 125 mg capsule 125 mg PO Q6H #68 caps 04/28/25 04/28/25 1418 <Electronically signed by Marylu Bojorquez> Date _ Marylu Bojorquez Cosigner Signature (if applicable): Date CC: ~ Signed [facility] Work Phone: Discharge summary Author Dr. Valencia [facility] November 21, 2022 3:54am Note Date/Time November 21, 2022 3:4 5am [facility] Medical Records Department [address] [place] [address] Emergency Department Summary 11/21/22 MR#: [id number] Acct: [id number] Name: GUNJAN CONNELL Rep #:[id number] : 1955 67 From: Ashwin Valencia MD PCP: Dr. Patt Jones, Status:RE G ER Location: ED HPI History [...] the plane started. She will be given [place] here for pain. Started on prednisone 40 [...] your ankle to decrease pain and swelling. [place] for pain. Do not drive while taking [...] your Primary Care Provider. Call [facility] ([phone]) or report to the closest Emergency Room. Call 911 if necessary. 11/21/22353 <Electronically signed by Ashwin Valencia MD> Cosigner Signature (if applicable): CC: Dr. Patt Jones DO ~ Signed [facility] Work Phone: Evaluation noteNo assessment information available [facility] Work Phone: Evaluation note* Diagnosis Onset Date Resolution Status Compression fracture of body of thoracic vertebra acute Compression fx, lumbar spine acute Left knee DJD acute Lower extremity edema acute Lumbar spondylosis acute Neuropathy acute Right knee pain acute S/P total knee arthroplasty acute [facility] Work Phone: Evaluation note* Diagnosis Onset Date Resolution Status Admit Date Acute pain of left hip acute Ju 2024 11:04am [facility] Work Phone: History and physical note Author Anand Contreras [facility] Note Date/Time April 27, 2025 3: 18pm [facility] Medical Records Department [address] [place] [address] H&P Exam - Hospitalist 04/27/25 1409 MR#: [id number] Acct: [id number] Name: GUNJAN CONNELL Rep #:[id number] : 1955 70 From: Anand duncan DO PCP: Dr. Patt Jones DO Status:AD M IN Location: [facility] [id number]- 1 HPI - General General Date of Admission: 04/27/25 Date of Service: 04/27/25 Chief Complaint: Diarrhea HPI Narrative GUNJAN CONNELL, is a 70 F who presented to [facility] ED on 04/27/2025 with diarrhea. Patient was recently found in the ED here on 04/02 to be positive for C. difficile. CT abdomen/pelvis at that time showed pancolitis. However, she was stable so she was able to be discharged home on p.o. vancomycin. She completed a 10-day course of vancomycin at home with resolutionof her diarrhea. However, she again began to have diarrhea about 3 days ago andhas been worsening, and she is concerned that she has C. difficile again. In the ED, stool sample was obtained and again showed toxigenic C. difficile. CT abdomen pelvis showed diffuse submucosal thickening and edema in multiple bowel loops in the terminal ileum down through the sigmoid colon consistent with diffuse colitis/enteritis. Labs otherwise notable for creatinine 2.25 (baselinearound 0.8), BUN 43, lactic acid 2.2. She was given 3 L of IV fluids and a doseof p.o. vancomycin in the ED, and hospitalist was contacted for admission. I saw the patient at bedside in the ED, was present. Patient was mildly fatigued appearing but otherwise laying back comfortably in bed, conversing normally, in no acute distress. Noted that she does feel somewhat better after the IV fluids. Has not had a bowel movement now for the past few hours. Deniesany fevers or chills. Denies any abdominal pain or discomfort. No other acute concerns at this time. Will be admitted for further management. [facility] Medical History Postoperative anemia Wears glasses Wears [...] Q 8 #0 tabs 08/19/24 01/11/25 Rx methotrexate sodium 2.5 mg tablet 15 mg (6 x 2.5 mg) P O We@1000 #0 08/19/24 01/08/25 Rx tabs cholecalciferol (vitamin D3) 125 250 mcg PO DAILY 01/0201/12/25 History mcg (5,000 unit) capsule tramadol 50 mg tablet 50 mg PO 4X/DAY PRN PRN pain 4 01/12/25 Unknown Rx days #15 tabs Allergy/AdvReac Type Severity Reaction Status Date / Time latex AdvReac Intermediate Rash Verified 04/27/25 11:26 Surgical History History of revision of total replacement of right hip joint History of hysterectomy History of carpal tunnel release of both wrists Hx of removal of cyst Hx of arthroscopy of right knee Hx of cholecystectomy Social History household members: spouse Smoking Status: Never smoker alcohol intake: never substance use type: does not use ROS Constitutional Constitutional: Reports fatigue; Denies chills, fever(s) or weakness Cardiovascular Cardiovascular: Denies chest pain Respiratory/Chest Respiratory/Chest: Denies shortness of breath at rest Gastrointestinal Gastrointestinal: Reports diarrhea and nausea; Denies abdominal pain, constipation or vomiting Musculoskeletal Musculoskeletal: Denies arthralgias or myalgias Neurologic Neurologic: Denies dizziness, focal weakness or headache(s) Vital Signs Vital Signs Vital Signs: 04/27/25 11:24 04/27/25 13:54 Temperature 98.1 F Temperature Source Oral Pulse Rate 101 H 91 Respiratory Rate 16 16 Blood Pressure 133/63 H 141/100 H Blood Pressure Mean 86 113 Pulse Ox 99 98 Oxygen Delivery Method Room Air Room Air Weight Weight: 67.086 kg Body Mass Index (BMI) 29.8 Physical Exam Const alert, oriented x3, no apparent distress and average body habitus Constitutional Narrative: Elderly female, mildly fatigued appearing but otherwise laying back comfortably in bed, conversing normally, in no acute distress. General Appearance: cooperative and comfortable HEENT normocephalic, head/scalp atraumatic, hearing grossly normal bilaterally, nasal mucous membranes and turbinates normal and moist oral mucous membranes Eyes PERRL, EOMs intact bilaterally and conjunctivae normal Neck full ROM Chest inspection of chest normal Resp normal respiratory effort, normal air movement, no use of accessory muscles and clear to auscultation bilaterally Cardio regular rate, regular rhythm, no murmurs and peripheral pulses 2+ throughout GI normal to inspection, nondistended, normoactive bowel sounds, soft to palpation,non-tender and non-distended Back/Spine normal ROM Extremity normal to inspection, full ROM and no pedal edema Skin no rashes or lesions noted Psych mental status grossly normal Results Lab / Micro Data 04/27/25 12:27 04/27/25 12:27 Labs: Laboratory Results - last 24 hr 04/27/25 12:27: WBC 9.4, RBC 4.38, Hgb 13.2, Hct 39.6, MCV 90.4, MCH 30.1, MCHC 33.3, RDW Std Deviation 48.4 H, RDW Coeff of Oly 14.7 H, Plt Count 238, MPV 9.7,Immature Gran % (Auto) 0.700, Neut % (Auto) 71.3 H, Lymph % (Auto) 10.6 L, [place] % (Auto) 16.1 H, Eos % (Auto) 0.3, Baso % (Auto) 1.0, Absolute Neuts (auto) 6.7,Absolute Lymphs (auto) 1.00, Nucleated RBC % 0, Differential Comment , Sodium 133, Potassium 3.6, Chloride 97 L, Carbon Dioxide 20.6 L, Anion Gap 16 H, BUN 43H, Creatinine 2.25 H, Est GFR (MDRD) Non-Af 23 L, BUN/Creatinine Ratio 19.1, Glucose 104 H, Lactic Acid 2.2 H*, Calcium 9.8, Total Bilirubin 1.25, AST 19, ALT20, Alkaline Phosphatase 89, Total Protein 7.1, Albumin 3.9, Globulin 3.2, Albumin/Globulin Ratio 1.2, Lipase 51 Micro: Microbiology 04/27/25 11:35 Stool Clostridioides difficile (PCR) - Final Imaging Radiology Impression Abdomen/Pelvis CT 04/27/25 11:44 IMPRESSION: Diffuse submucosal thickening and submucosal edema in multiple bowel loops particularly of note in the terminal ileum and cecum and throughout the mid and distal sigmoid consistent with diffuse colitis/enteritis. No perforation or abscess Stable poorly defined nonenhancing hypoattenuated lesion within the left lobe ofthe liver No free fluid, air, or suspicious adenopathy Extensive degenerative bony changes with multiple chronic compression fractures in the visualized thoracic and lumbar spine Reading Location: [id number] Assessment & Plan Assessment/Plan (1) C. difficile colitis: (2) Acute kidney injury: PLAN: Plan Patient is a 70-year-old female who presented to [facility] ED on 04/27/2025 with diarrhea. 1. Recurrent C. difficile infection ? Admit under inpatient status to PCU. Initial C. difficile diagnosis in ED on 04/02. She had been on multiple antibiotic courses per her PCP for diverticulitis that presumably led to her C. difficile infection. CT abdomen pelvis showed pancolitis at that time but she was otherwise stable and discharged home from the ED on p.o. vancomycin. Completed 10-day course of p.o.vancomycin with resolution of diarrhea. Unfortunately had recurrence of diarrhea about 3 days prior to this admission. Stool testing again positive fortoxigenic C. difficile. CT abdomen pelvis again consistent with pancolitis. Will treat with p.o. vancomycin (fidaxomicin is not on formulary here) and per the guidelines will need a prolonged vancomycin taper on discharge. Will hold on GI consult for now but can consider as needed. 2. DIMA ? Creatinine 2.25 on admit, baseline around 0.8. Presumed prerenal due to GI losses as above. Given 3 L of IV fluids on admission, follow-up a.m. BMP and monitor urine output. Chronic medical conditions: ? Chronic pain syndrome: OARRS reviewed and patient has been filling home tramadol regularly. Continue home tramadol 4 times daily as needed. ? Rheumatoid arthritis: Stable. Continue home methotrexate weekly on Wednesdays. ? History of right hip fracture s/p right knee replacement complicated by right periprosthetic intertrochanteric fracture with surgical revision: Surgical revision was done by orthopedics here in July 2024. Patient reports no issues since then. DVT prophylaxis: Heparin subcu CODE STATUS: Full code, verified Expected disposition: Home, TBD Total clinical time spent by myself addressing the patient's medical issues, reviewing all the data, and collaborating with patient's care team: 75 minutes. Charges/Coding Visit Charges Inpatient E&M: 05819 Init Hosp L3 04/27/25 4874 <Electronically signed by Anand Contreras DO> Cosigner Signature (if applicable): CC: Dr. Anand Contreras, DO; Dr. Patt Jones, DO~ Signed [facility] Work Phone: Hospital Discharge instructions Additional Instructions Ice and elevate your ankle to decrease pain and swelling. [place] for pain. Do not drive while taking [...] this time there is no signs of infection.[facility] Work Phone: Hospital Discharge instructionsAdditional Instructions Stop taking your antibiotics prescribed by your primary care physician. Start taking the vancomycin. You received your first dose here in the emergency department. Follow-up with your primary care physician. Return back to the ED if symptoms change or worsen. [facility] Work Phone: Instructions* Name Dates Details Patient Instructions Indication:Non-smoker Start:21-Dec-2020 Instruction Type:Provider Instructions for Treatment How to Access Health Informa tion Online using Patient Portal and [employer] Apps Indication:Non-smoker Start:21-Dec-2020 Instruction Type:Patient Education Patient Instructions Indication:BMI 34.0-34.9,adult Start:11-Dec-2020 Instruction Type:Provider Instructions for Treatment How to Access Health Informa tion Online using Patient Portal and [employer] Apps Indication:BMI 34.0-34.9,adult Start:11-Dec-2020 Instruction Type:Patient Education Patient Instructions Indication:Non-smoker Start:04-Dec-2020 Instruction Type:Provider Instructions for Treatment How to Access Health Informa tion Online using Patient Portal and [employer] Apps Indication:Non-smoker Start:04-Dec-2020 Instruction Type:Patient Education How to Access Health Informa tion Online using Patient Portal and [employer] Apps Indication:Non-smoker Start:20-Nov-2020 Instruction Type:Patient Education Patient [...] tion Online using Patient Portal and 3rd [employer] Apps Indication:Non-smoker Start:21-Dec-2020 Instruction Type:Patient Education Patient Instructions Indication:BMI 34.0-34.9,adult Start:11-Dec-2020 Instruction Type:Provider Instructions for Treatment How to Access Health Informa tion Online using Patient Portal and [employer] Apps Indication:BMI 34.0-34.9,adult Start:11-Dec-2020 Instruction Type:Patient Education Patient Instructions Indication:Non-smoker Start:04-Dec-2020 Instruction Type:Provider Instructions for Treatment How to Access Health Informa tion Online using Patient Portal and 3rd [employer] Apps Indication:Non-smoker Start:04-Dec-2020 Instruction Type:Patient Education How to Access Health Informa tion Online using Patient Portal and [employer] Apps Indication:Non-smoker Start:20-Nov-2020 Instruction Type:Patient Education Patient [...] tion Online using Patient Portal and 3rd [employer] Apps Indication:Non-smoker Start:23-Feb-2021 Instruction Type:Patient Education Patient Instructions Indication:Non-smoker Start:21-Dec-2020 Instruction Type:Provider Instructions for Treatment How to Access Health Informa tion Online using Patient Portal and 3rd [employer] Apps Indication:Non-smoker Start:21-Dec-2020 Instruction Type:Patient Education Patient Instructions Indication:BMI 34.0-34.9,adult Start:11-Dec-2020 Instruction Type:Provider Instructions for Treatment How to Access Health Informa tion Online using Patient Portal and 3rd [employer] Apps Indication:BMI 34.0-34.9,adult Start:11-Dec-2020 Instruction Type:Patient Education Patient Instructions Indication:Non-smoker Start:04-Dec-2020 Instruction Type:Provider Instructions for Treatment How to Access Health Informa tion Online using Patient Portal and 3rd [employer] Apps Indication:Non-smoker Start:04-Dec-2020 Instruction Type:Patient Education How to Access Health Informa tion Online using Patient Portal and 3rd [employer] Apps Indication:Non-smoker Start:20-Nov-2020 Instruction Type:Patient Education Patient [...] Informa tion Online using Patient Portal and [employer] Apps Indication:Non-smoker Start:11-Mar-2021 Instruction Type:Patient Education Patient Instructions Indication:Non-smoker Start:11-Mar-2021 Instruction Type:Provider Instructions for Treatment Patient Instructions Indication:Non-smoker Start:23-Feb-2021 Instruction Type:Provider Instructions for Treatment How to Access Health Informa tion Online using Patient Portal and 3rd [employer] Apps Indication:Non-smoker Start:23-Feb-2021 Instruction Type:Patient Education Patient Instructions Indication:Non-smoker Start:21-Dec-2020 Instruction Type:Provider Instructions for Treatment How to Access Health Informa tion Online using Patient Portal and [employer]rd [employer] Apps Indication:Non-smoker Start:21-Dec-2020 Instruction Type:Patient Education Patient Instructions Indication:BMI 34.0-34.9,adult Start:11-Dec-2020 Instruction Type:Provider Instructions for Treatment How to Access Health Informa tion Online using Patient Portal and 3rd [employer] Apps Indication:BMI 34.0-34.9,adult Start:11-Dec-2020 Instruction Type:Patient Education Patient Instructions Indication:Non-smoker Start:04-Dec-2020 Instruction Type:Provider Instructions for Treatment How to Access Health Informa tion Online using Patient Portal and [employer]rd [employer] Apps Indication:Non-smoker Start:04-Dec-2020 Instruction Type:Patient Education How to Access Health Informa tion Online using Patient Portal and [employer]rd [employer] Apps Indication:Non-smoker Start:20-Nov-2020 Instruction Type:Patient Education Patient [...] tion Online using Patient Portal and [employer]rd [employer] Apps Indication:Non-smoker Start:02-Jul-2021 Instruction Type:Patient Education Patient Instructions Indication:BMI 37.0-37.9, adult Start:26-Mar-2021 Instruction Type:Provider Instructions for Treatment How to Access Health Informa tion Online using Patient Portal and [employer]rd [employer] Apps Indication:BMI 37.0-37.9, adult Start:26-Mar-2021 Instruction Type:Patient Education Patient Instructions Indication:Non-smoker Start:23-Feb-2021 Instruction Type:Provider Instructions for Treatment How to Access Health Informa tion Online using Patient Portal and [employer]rd [employer] Apps Indication:Non-smoker Start:23-Feb-2021 Instruction Type:Patient Education Patient Instructions Indication:Non-smoker Start:21-Dec-2020 Instruction Type:Provider Instructions for Treatment How to Access Health Informa tion Online using Patient Portal and [employer]rd [employer] Apps Indication:Non-smoker Start:21-Dec-2020 Instruction Type:Patient Education Patient Instructions Indication:BMI 34.0-34.9,adult Start:11-Dec-2020 Instruction Type:Provider Instructions for Treatment How to Access Health Informa tion Online using Patient Portal and 3rd [employer] Apps Indication:BMI 34.0-34.9,adult Start:11-Dec-2020 Instruction Type:Patient Education Patient Instructions Indication:Non-smoker Start:04-Dec-2020 Instruction Type:Provider Instructions for Treatment How to Access Health Informa tion Online using Patient Portal and [employer]rd [employer] Apps Indication:Non-smoker Start:04-Dec-2020 Instruction Type:Patient Education How to Access Health Informa tion Online using Patient Portal and [employer] Apps Indication:Non-smoker Start:20-Nov-2020 Instruction Type:Patient Education Patient [...] tion Online using Patient Portal and [employer] Apps Indication:Non-smoker Start:02-Jul-2021 Instruction Type:Patient Education Patient Instructions Indication:BMI 37.0-37.9, adult Start:26-Mar-2021 Instruction Type:Provider Instructions for Treatment How to Access Health Informa tion Online using Patient Portal and [employer]rd [employer] Apps Indication:BMI 37.0-37.9, adult Start:26-Mar-2021 Instruction Type:Patient Education Patient Instructions Indication:Non-smoker Start:23-Feb-2021 Instruction Type:Provider Instructions for Treatment How to Access Health Informa tion Online using Patient Portal and [employer]rd [employer] Apps Indication:Non-smoker Start:23-Feb-2021 Instruction Type:Patient Education Patient Instructions Indication:Non-smoker Start:21-Dec-2020 Instruction Type:Provider Instructions for Treatment How to Access Health Informa tion Online using Patient Portal and [employer] Apps Indication:Non-smoker Start:21-Dec-2020 Instruction Type:Patient Education Patient Instructions Indication:BMI 34.0-34.9,adult Start:11-Dec-2020 Instruction Type:Provider Instructions for Treatment How to Access Health Informa tion Online using Patient Portal and [employer] Apps Indication:BMI 34.0-34.9,adult Start:11-Dec-2020 Instruction Type:Patient Education Patient Instructions Indication:Non-smoker Start:04-Dec-2020 Instruction Type:Provider Instructions for Treatment How to Access Health Informa tion Online using Patient Portal and [employer] Apps Indication:Non-smoker Start:04-Dec-2020 Instruction Type:Patient Education How to Access Health Informa tion Online using Patient Portal and [employer] Apps Indication:Non-smoker Start:20-Nov-2020 Instruction Type:Patient Education Patient [...] Informa tion Online using Patient Portal and [employer] Apps Indication:Non-smoker Start:02-Jul-2021 Instruction Type:Patient Education Patient Instructions Indication:BMI 37.0-37.9, adult Start:26-Mar-2021 Instruction Type:Provider Instructions for Treatment How to Access Health Informa tion Online using Patient Portal and [employer] Apps Indication:BMI 37.0-37.9, adult Start:26-Mar-2021 Instruction Type:Patient Education Patient Instructions Indication:Non-smoker Start:23-Feb-2021 Instruction Type:Provider Instructions for Treatment How to Access Health Informa tion Online using Patient Portal and [employer] Apps Indication:Non-smoker Start:23-Feb-2021 Instruction Type:Patient Education Patient Instructions Indication:Non-smoker Start:21-Dec-2020 Instruction Type:Provider Instructions for Treatment How to Access Health Informa tion Online using Patient Portal and [employer] Apps Indication:Non-smoker Start:21-Dec-2020 Instruction Type:Patient Education Patient Instructions Indication:BMI 34.0-34.9,adult Start:11-Dec-2020 Instruction Type:Provider Instructions for Treatment How to Access Health Informa tion Online using Patient Portal and [employer] Apps Indication:BMI 34.0-34.9,adult Start:11-Dec-2020 Instruction Type:Patient Education Patient Instructions Indication:Non-smoker Start:04-Dec-2020 Instruction Type:Provider Instructions for Treatment How to Access Health Informa tion Online using Patient Portal and [employer] Apps Indication:Non-smoker Start:04-Dec-2020 Instruction Type:Patient Education How to Access Health Informa tion Online using Patient Portal and [employer] Apps Indication:Non-smoker Start:20-Nov-2020 Instruction Type:Patient Education Patient [...] tion Online using Patient Portal and [employer] Apps Indication:Non-smoker Start:02-Jul-2021 Instruction Type:Patient Education Patient Instructions Indication:BMI 37.0-37.9, adult Start:26-Mar-2021 Instruction Type:Provider Instructions for Treatment How to Access Health Informa tion Online using Patient Portal and [employer] Apps Indication:BMI 37.0-37.9, adult Start:26-Mar-2021 Instruction Type:Patient Education Patient Instructions Indication:Non-smoker Start:23-Feb-2021 Instruction Type:Provider Instructions for Treatment How to Access Health Informa tion Online using Patient Portal and [employer] Apps Indication:Non-smoker Start:23-Feb-2021 Instruction Type:Patient Education Patient Instructions Indication:Non-smoker Start:21-Dec-2020 Instruction Type:Provider Instructions for Treatment How to Access Health Informa tion Online using Patient Portal and [employer] Apps Indication:Non-smoker Start:21-Dec-2020 Instruction Type:Patient Education Patient Instructions Indication:BMI 34.0-34.9,adult Start:11-Dec-2020 Instruction Type:Provider Instructions for Treatment How to Access Health Informa tion Online using Patient Portal and [employer] Apps Indication:BMI 34.0-34.9,adult Start:11-Dec-2020 Instruction Type:Patient Education Patient Instructions Indication:Non-smoker Start:04-Dec-2020 Instruction Type:Provider Instructions for Treatment How to Access Health Informa tion Online using Patient Portal and [employer] Apps Indication:Non-smoker Start:04-Dec-2020 Instruction Type:Patient Education How to Access Health Informa tion Online using Patient Portal and [employer] Apps Indication:Non-smoker Start:20-Nov-2020 Instruction Type:Patient Education Patient [...] tion Online using Patient Portal and [employer] Apps Indication:Non-smoker Start:26-Jan-2022 Instruction Type:Patient Education Patient Instructions Indication:Non-smoker Start:02-Jul-2021 Instruction Type:Provider Instructions for Treatment How to Access Health Informa tion Online using Patient Portal and [employer] Apps Indication:Non-smoker Start:02-Jul-2021 Instruction Type:Patient Education Patient Instructions Indication:BMI 37.0-37.9, adult Start:26-Mar-2021 Instruction Type:Provider Instructions for Treatment How to Access Health Informa tion Online using Patient Portal and [employer] Apps Indication:BMI 37.0-37.9, adult Start:26-Mar-2021 Instruction Type:Patient Education Patient Instructions Indication:Non-smoker Start:23-Feb-2021 Instruction Type:Provider Instructions for Treatment How to Access Health Informa tion Online using Patient Portal and [employer] Apps Indication:Non-smoker Start:23-Feb-2021 Instruction Type:Patient Education Patient Instructions Indication:Non-smoker Start:21-Dec-2020 Instruction Type:Provider Instructions for Treatment How to Access Health Informa tion Online using Patient Portal and [employer] Apps Indication:Non-smoker Start:21-Dec-2020 Instruction Type:Patient Education Patient Instructions Indication:BMI 34.0-34.9,adult Start:11-Dec-2020 Instruction Type:Provider Instructions for Treatment How to Access Health Informa tion Online using Patient Portal and [employer] Apps Indication:BMI 34.0-34.9,adult Start:11-Dec-2020 Instruction Type:Patient Education Patient Instructions Indication:Non-smoker Start:04-Dec-2020 Instruction Type:Provider Instructions for Treatment How to Access Health Informa tion Online using Patient Portal and [employer] Apps Indication:Non-smoker Start:04-Dec-2020 Instruction Type:Patient Education How to Access Health Informa tion Online using Patient Portal and [employer] Apps Indication:Non-smoker Start:20-Nov-2020 Instruction Type:Patient Education Patient [...] tion Online using Patient Portal and [employer] Apps Indication:Non-smoker Start:26-Jan-2022 Instruction Type:Patient Education Patient Instructions Indication:Non-smoker Start:02-Jul-2021 Instruction Type:Provider Instructions for Treatment How to Access Health Informa tion Online using Patient Portal and [employer] Apps Indication:Non-smoker Start:02-Jul-2021 Instruction Type:Patient Education Patient Instructions Indication:BMI 37.0-37.9, adult Start:26-Mar-2021 Instruction Type:Provider Instructions for Treatment How to Access Health Informa tion Online using Patient Portal and [employer] Apps Indication:BMI 37.0-37.9, adult Start:26-Mar-2021 Instruction Type:Patient Education Patient Instructions Indication:Non-smoker Start:23-Feb-2021 Instruction Type:Provider Instructions for Treatment How to Access Health Informa tion Online using Patient Portal and [employer] Apps Indication:Non-smoker Start:23-Feb-2021 Instruction Type:Patient Education Patient Instructions Indication:Non-smoker Start:21-Dec-2020 Instruction Type:Provider Instructions for Treatment How to Access Health Informa tion Online using Patient Portal and [employer] Apps Indication:Non-smoker Start:21-Dec-2020 Instruction Type:Patient Education Patient Instructions Indication:BMI 34.0-34.9,adult Start:11-Dec-2020 Instruction Type:Provider Instructions for Treatment How to Access Health Informa tion Online using Patient Portal and [employer] Apps Indication:BMI 34.0-34.9,adult Start:11-Dec-2020 Instruction Type:Patient Education Patient Instructions Indication:Non-smoker Start:04-Dec-2020 Instruction Type:Provider Instructions for Treatment How to Access Health Informa tion Online using Patient Portal and [employer] Apps Indication:Non-smoker Start:04-Dec-2020 Instruction Type:Patient Education How to Access Health Informa tion Online using Patient Portal and [employer] Apps Indication:Non-smoker Start:20-Nov-2020 Instruction Type:Patient Education Patient [...] Informa tion Online using Patient Portal and [employer] Apps Indication:Non-smoker Start:26-Jan-2022 Instruction Type:Patient Education Patient Instructions Indication:Non-smoker Start:02-Jul-2021 Instruction Type:Provider Instructions for Treatment How to Access Health Informa tion Online using Patient Portal and [employer] Apps Indication:Non-smoker Start:02-Jul-2021 Instruction Type:Patient Education Patient Instructions Indication:BMI 37.0-37.9, adult Start:26-Mar-2021 Instruction Type:Provider Instructions for Treatment How to Access Health Informa tion Online using Patient Portal and [employer] Apps Indication:BMI 37.0-37.9, adult Start:26-Mar-2021 Instruction Type:Patient Education Patient Instructions Indication:Non-smoker Start:23-Feb-2021 Instruction Type:Provider Instructions for Treatment How to Access Health Informa tion Online using Patient Portal and [employer] Apps Indication:Non-smoker Start:23-Feb-2021 Instruction Type:Patient Education Patient Instructions Indication:Non-smoker Start:21-Dec-2020 Instruction Type:Provider Instructions for Treatment How to Access Health Informa tion Online using Patient Portal and [employer] Apps Indication:Non-smoker Start:21-Dec-2020 Instruction Type:Patient Education Patient Instructions Indication:BMI 34.0-34.9,adult Start:11-Dec-2020 Instruction Type:Provider Instructions for Treatment How to Access Health Informa tion Online using Patient Portal and [employer] Apps Indication:BMI 34.0-34.9,adult Start:11-Dec-2020 Instruction Type:Patient Education Patient Instructions Indication:Non-smoker Start:04-Dec-2020 Instruction Type:Provider Instructions for Treatment How to Access Health Informa tion Online using Patient Portal and [employer] Apps Indication:Non-smoker Start:04-Dec-2020 Instruction Type:Patient Education How to Access Health Informa tion Online using Patient Portal and [employer] Apps Indication:Non-smoker Start:20-Nov-2020 Instruction Type:Patient Education Patient [...] Informa tion Online using Patient Portal and [employer] Apps Indication:Non-smoker Start:26-Jan-2022 Instruction Type:Patient Education Patient Instructions Indication:Non-smoker Start:02-Jul-2021 Instruction Type:Provider Instructions for Treatment How to Access Health Informa tion Online using Patient Portal and [employer] Apps Indication:Non-smoker Start:02-Jul-2021 Instruction Type:Patient Education Patient Instructions Indication:BMI 37.0-37.9, adult Start:26-Mar-2021 Instruction Type:Provider Instructions for Treatment How to Access Health Informa tion Online using Patient Portal and [employer] Apps Indication:BMI 37.0-37.9, adult Start:26-Mar-2021 Instruction Type:Patient Education Patient Instructions Indication:Non-smoker Start:23-Feb-2021 Instruction Type:Provider Instructions for Treatment How to Access Health Informa tion Online using Patient Portal and [employer] Apps Indication:Non-smoker Start:23-Feb-2021 Instruction Type:Patient Education Patient Instructions Indication:Non-smoker Start:21-Dec-2020 Instruction Type:Provider Instructions for Treatment How to Access Health Informa tion Online using Patient Portal and [employer] Apps Indication:Non-smoker Start:21-Dec-2020 Instruction Type:Patient Education Patient Instructions Indication:BMI 34.0-34.9,adult Start:11-Dec-2020 Instruction Type:Provider Instructions for Treatment How to Access Health Informa tion Online using Patient Portal and [employer] Apps Indication:BMI 34.0-34.9,adult Start:11-Dec-2020 Instruction Type:Patient Education Patient Instructions Indication:Non-smoker Start:04-Dec-2020 Instruction Type:Provider Instructions for Treatment How to Access Health Informa tion Online using Patient Portal and [employer] Apps Indication:Non-smoker Start:04-Dec-2020 Instruction Type:Patient Education How to Access Health Informa tion Online using Patient Portal and [employer] Apps Indication:Non-smoker Start:20-Nov-2020 Instruction Type:Patient Education Patient [...] tion Online using Patient Portal and [employer] Apps Indication:Non-smoker Start:26-Jan-2022 Instruction Type:Patient Education Patient Instructions Indication:Non-smoker Start:02-Jul-2021 Instruction Type:Provider Instructions for Treatment How to Access Health Informa tion Online using Patient Portal and [employer] Apps Indication:Non-smoker Start:02-Jul-2021 Instruction Type:Patient Education Patient Instructions Indication:BMI 37.0-37.9, adult Start:26-Mar-2021 Instruction Type:Provider Instructions for Treatment How to Access Health Informa tion Online using Patient Portal and [employer] Apps Indication:BMI 37.0-37.9, adult Start:26-Mar-2021 Instruction Type:Patient Education Patient Instructions Indication:Non-smoker Start:23-Feb-2021 Instruction Type:Provider Instructions for Treatment How to Access Health Informa tion Online using Patient Portal and [employer] Apps Indication:Non-smoker Start:23-Feb-2021 Instruction Type:Patient Education Patient Instructions Indication:Non-smoker Start:21-Dec-2020 Instruction Type:Provider Instructions for Treatment How to Access Health Informa tion Online using Patient Portal and [employer] Apps Indication:Non-smoker Start:21-Dec-2020 Instruction Type:Patient Education Patient Instructions Indication:BMI 34.0-34.9,adult Start:11-Dec-2020 Instruction Type:Provider Instructions for Treatment How to Access Health Informa tion Online using Patient Portal and [employer] Apps Indication:BMI 34.0-34.9,adult Start:11-Dec-2020 Instruction Type:Patient Education Patient Instructions Indication:Non-smoker Start:04-Dec-2020 Instruction Type:Provider Instructions for Treatment How to Access Health Informa tion Online using Patient Portal and [employer] Apps Indication:Non-smoker Start:04-Dec-2020 Instruction Type:Patient Education How to Access Health Informa tion Online using Patient Portal and [employer] Apps Indication:Non-smoker Start:20-Nov-2020 Instruction Type:Patient Education Patient [...] tion Online using Patient Portal and [employer] Apps Indication:Non-smoker Start:26-Jan-2022 Instruction Type:Patient Education Patient Instructions Indication:Non-smoker Start:02-Jul-2021 Instruction Type:Provider Instructions for Treatment How to Access Health Informa tion Online using Patient Portal and [employer] Apps Indication:Non-smoker Start:02-Jul-2021 Instruction Type:Patient Education Patient Instructions Indication:BMI 37.0-37.9, adult Start:26-Mar-2021 Instruction Type:Provider Instructions for Treatment How to Access Health Informa tion Online using Patient Portal and [employer] Apps Indication:BMI 37.0-37.9, adult Start:26-Mar-2021 Instruction Type:Patient Education Patient Instructions Indication:Non-smoker Start:23-Feb-2021 Instruction Type:Provider Instructions for Treatment How to Access Health Informa tion Online using Patient Portal and [employer] Apps Indication:Non-smoker Start:23-Feb-2021 Instruction Type:Patient Education Patient Instructions Indication:Non-smoker Start:21-Dec-2020 Instruction Type:Provider Instructions for Treatment How to Access Health Informa tion Online using Patient Portal and [employer] Apps Indication:Non-smoker Start:21-Dec-2020 Instruction Type:Patient Education Patient Instructions Indication:BMI 34.0-34.9,adult Start:11-Dec-2020 Instruction Type:Provider Instructions for Treatment How to Access Health Informa tion Online using Patient Portal and [employer] Apps Indication:BMI 34.0-34.9,adult Start:11-Dec-2020 Instruction Type:Patient Education Patient Instructions Indication:Non-smoker Start:04-Dec-2020 Instruction Type:Provider Instructions for Treatment How to Access Health Informa tion Online using Patient Portal and [employer] Apps Indication:Non-smoker Start:04-Dec-2020 Instruction Type:Patient Education How to Access Health Informa tion Online using Patient Portal and [employer] Apps Indication:Non-smoker Start:20-Nov-2020 Instruction Type:Patient Education Patient [...] Informa tion Online using Patient Portal and [employer] Apps Indication:Non-smoker Start:26-Jan-2022 Instruction Type:Patient Education Patient Instructions Indication:Non-smoker Start:02-Jul-2021 Instruction Type:Provider Instructions for Treatment How to Access Health Informa tion Online using Patient Portal and [employer] Apps Indication:Non-smoker Start:02-Jul-2021 Instruction Type:Patient Education Patient Instructions Indication:BMI 37.0-37.9, adult Start:26-Mar-2021 Instruction Type:Provider Instructions for Treatment How to Access Health Informa tion Online using Patient Portal and [employer] Apps Indication:BMI 37.0-37.9, adult Start:26-Mar-2021 Instruction Type:Patient Education Patient Instructions Indication:Non-smoker Start:23-Feb-2021 Instruction Type:Provider Instructions for Treatment How to Access Health Informa tion Online using Patient Portal and [employer] Apps Indication:Non-smoker Start:23-Feb-2021 Instruction Type:Patient Education Patient Instructions Indication:Non-smoker Start:21-Dec-2020 Instruction Type:Provider Instructions for Treatment How to Access Health Informa tion Online using Patient Portal and [employer] Apps Indication:Non-smoker Start:21-Dec-2020 Instruction Type:Patient Education Patient Instructions Indication:BMI 34.0-34.9,adult Start:11-Dec-2020 Instruction Type:Provider Instructions for Treatment How to Access Health Informa tion Online using Patient Portal and [employer] Apps Indication:BMI 34.0-34.9,adult Start:11-Dec-2020 Instruction Type:Patient Education Patient Instructions Indication:Non-smoker Start:04-Dec-2020 Instruction Type:Provider Instructions for Treatment How to Access Health Informa tion Online using Patient Portal and [employer] Apps Indication:Non-smoker Start:04-Dec-2020 Instruction Type:Patient Education How to Access Health Informa tion Online using Patient Portal and [employer] Apps Indication:Non-smoker Start:20-Nov-2020 Instruction Type:Patient Education Patient [...] Informa tion Online using Patient Portal and [employer] Apps Indication:Non-smoker Start:26-Jan-2022 Instruction Type:Patient Education Patient Instructions Indication:Non-smoker Start:02-Jul-2021 Instruction Type:Provider Instructions for Treatment How to Access Health Informa tion Online using Patient Portal and [employer] Apps Indication:Non-smoker Start:02-Jul-2021 Instruction Type:Patient Education Patient Instructions Indication:BMI 37.0-37.9, adult Start:26-Mar-2021 Instruction Type:Provider Instructions for Treatment How to Access Health Informa tion Online using Patient Portal and [employer] Apps Indication:BMI 37.0-37.9, adult Start:26-Mar-2021 Instruction Type:Patient Education Patient Instructions Indication:Non-smoker Start:23-Feb-2021 Instruction Type:Provider Instructions for Treatment How to Access Health Informa tion Online using Patient Portal and [employer] Apps Indication:Non-smoker Start:23-Feb-2021 Instruction Type:Patient Education Patient Instructions Indication:Non-smoker Start:21-Dec-2020 Instruction Type:Provider Instructions for Treatment How to Access Health Informa tion Online using Patient Portal and [employer] Apps Indication:Non-smoker Start:21-Dec-2020 Instruction Type:Patient Education Patient Instructions Indication:BMI 34.0-34.9,adult Start:11-Dec-2020 Instruction Type:Provider Instructions for Treatment How to Access Health Informa tion Online using Patient Portal and [employer] Apps Indication:BMI 34.0-34.9,adult Start:11-Dec-2020 Instruction Type:Patient Education Patient Instructions Indication:Non-smoker Start:04-Dec-2020 Instruction Type:Provider Instructions for Treatment How to Access Health Informa tion Online using Patient Portal and [employer] Apps Indication:Non-smoker Start:04-Dec-2020 Instruction Type:Patient Education How to Access Health Informa tion Online using Patient Portal and [employer] Apps Indication:Non-smoker Start:20-Nov-2020 Instruction Type:Patient Education Patient [...] tion Online using Patient Portal and [employer] Apps Indication:Non-smoker Start:26-Jan-2022 Instruction Type:Patient Education Patient Instructions Indication:Non-smoker Start:02-Jul-2021 Instruction Type:Provider Instructions for Treatment How to Access Health Informa tion Online using Patient Portal and [employer] Apps Indication:Non-smoker Start:02-Jul-2021 Instruction Type:Patient Education Patient Instructions Indication:BMI 37.0-37.9, adult Start:26-Mar-2021 Instruction Type:Provider Instructions for Treatment How to Access Health Informa tion Online using Patient Portal and [employer] Apps Indication:BMI 37.0-37.9, adult Start:26-Mar-2021 Instruction Type:Patient Education Patient Instructions Indication:Non-smoker Start:23-Feb-2021 Instruction Type:Provider Instructions for Treatment How to Access Health Informa tion Online using Patient Portal and [employer] Apps Indication:Non-smoker Start:23-Feb-2021 Instruction Type:Patient Education Patient Instructions Indication:Non-smoker Start:21-Dec-2020 Instruction Type:Provider Instructions for Treatment How to Access Health Informa tion Online using Patient Portal and [employer] Apps Indication:Non-smoker Start:21-Dec-2020 Instruction Type:Patient Education Patient Instructions Indication:BMI 34.0-34.9,adult Start:11-Dec-2020 Instruction Type:Provider Instructions for Treatment How to Access Health Informa tion Online using Patient Portal and [employer] Apps Indication:BMI 34.0-34.9,adult Start:11-Dec-2020 Instruction Type:Patient Education Patient Instructions Indication:Non-smoker Start:04-Dec-2020 Instruction Type:Provider Instructions for Treatment How to Access Health Informa tion Online using Patient Portal and [employer]rd [employer] Apps Indication:Non-smoker Start:04-Dec-2020 Instruction Type:Patient Education How to Access Health Informa tion Online using Patient Portal and [employer]rd [employer] Apps Indication:Non-smoker Start:20-Nov-2020 Instruction Type:Patient Education Patient [...] tion Online using Patient Portal and [employer]rd [employer] Apps Indication:Non-smoker Start:26-Jan-2022 Instruction Type:Patient Education Patient Instructions Indication:Non-smoker Start:02-Jul-2021 Instruction Type:Provider Instructions for Treatment How to Access Health Informa tion Online using Patient Portal and [employer]rd [employer] Apps Indication:Non-smoker Start:02-Jul-2021 Instruction Type:Patient Education Patient Instructions Indication:BMI 37.0-37.9, adult Start:26-Mar-2021 Instruction Type:Provider Instructions for Treatment How to Access Health Informa tion Online using Patient Portal and [employer]rd [employer] Apps Indication:BMI 37.0-37.9, adult Start:26-Mar-2021 Instruction Type:Patient Education Patient Instructions Indication:Non-smoker Start:23-Feb-2021 Instruction Type:Provider Instructions for Treatment How to Access Health Informa tion Online using Patient Portal and [employer]rd [employer] Apps Indication:Non-smoker Start:23-Feb-2021 Instruction Type:Patient Education Patient Instructions Indication:Non-smoker Start:21-Dec-2020 Instruction Type:Provider Instructions for Treatment How to Access Health Informa tion Online using Patient Portal and [employer]rd [employer] Apps Indication:Non-smoker Start:21-Dec-2020 Instruction Type:Patient Education Patient Instructions Indication:BMI 34.0-34.9,adult Start:11-Dec-2020 Instruction Type:Provider Instructions for Treatment How to Access Health Informa tion Online using Patient Portal and 3rd [employer] Apps Indication:BMI 34.0-34.9,adult Start:11-Dec-2020 Instruction Type:Patient Education Patient Instructions Indication:Non-smoker Start:04-Dec-2020 Instruction Type:Provider Instructions for Treatment How to Access Health Informa tion Online using Patient Portal and 3rd [employer] Apps Indication:Non-smoker Start:04-Dec-2020 Instruction Type:Patient Education How to Access Health Informa tion Online using Patient Portal and [employer]rd [employer] Apps Indication:Non-smoker Start:20-Nov-2020 Instruction Type:Patient Education Patient [...] tion Online using Patient Portal and [employer]rd [employer] Apps Indication:Non-smoker Start:26-Jan-2022 Instruction Type:Patient Education Patient Instructions Indication:Non-smoker Start:02-Jul-2021 Instruction Type:Provider Instructions for Treatment How to Access Health Informa tion Online using Patient Portal and [employer] Apps Indication:Non-smoker Start:02-Jul-2021 Instruction Type:Patient Education Patient Instructions Indication:BMI 37.0-37.9, adult Start:26-Mar-2021 Instruction Type:Provider Instructions for Treatment How to Access Health Informa tion Online using Patient Portal and [employer]rd [employer] Apps Indication:BMI 37.0-37.9, adult Start:26-Mar-2021 Instruction Type:Patient Education Patient Instructions Indication:Non-smoker Start:23-Feb-2021 Instruction Type:Provider Instructions for Treatment How to Access Health Informa tion Online using Patient Portal and 3rd [employer] Apps Indication:Non-smoker Start:23-Feb-2021 Instruction Type:Patient Education Patient Instructions Indication:Non-smoker Start:21-Dec-2020 Instruction Type:Provider Instructions for Treatment How to Access Health Informa tion Online using Patient Portal and [employer]rd [employer] Apps Indication:Non-smoker Start:21-Dec-2020 Instruction Type:Patient Education Patient Instructions Indication:BMI 34.0-34.9,adult Start:11-Dec-2020 Instruction Type:Provider Instructions for Treatment How to Access Health Informa tion Online using Patient Portal and 3rd [employer] Apps Indication:BMI 34.0-34.9,adult Start:11-Dec-2020 Instruction Type:Patient Education Patient Instructions Indication:Non-smoker Start:04-Dec-2020 Instruction Type:Provider Instructions for Treatment How to Access Health Informa tion Online using Patient Portal and [employer]rd [employer] Apps Indication:Non-smoker Start:04-Dec-2020 Instruction Type:Patient Education How to Access Health Informa tion Online using Patient Portal and 3rd [employer] Apps Indication:Non-smoker Start:20-Nov-2020 Instruction Type:Patient Education Patient [...] Work Phone: progress note Author Nerissa Valenzuela [facility] Note Date/Time March 10, 2025 11:34 am [facility] [address] [place] [address] OFFICE VISIT Date of Service: 03/10/25 MR#: [id number] Acct: [id number] Patient: GUNJAN CONNELL Rep #: [id number] : 1955 Provider: TONY Taylor Age/Sex: 70/F Location: [facility] Status: Signed Intake Vital Signs 01/12/25 14:05 03/10/25 11:22 Height 4 ft 11 in BP 125/85 H Blood Pressure Location Lt brachial Position Sitting Respiration 16 Pulse 71 Pulse Source Monitor Temp 98.1 F Temp Source Oral Pulse Oximetry (%) 98 Intake Visit Reasons: L HIP PAIN FROM FALL Chief Complaint: left Hip pain 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 PFSH Medical History Postoperative anemia Wears glasses Wears [...] or stands. She has not used any jkva-mnr-ctxolos medication for this. She is not on [...] Cosigner Signature: Date (if applicable) CC: ~ [facility] Work Phone: Reason for referral (narrative)No reason for referral information availableWAultman [facility] Work Phone: Instructions Name Dates Details Non-smoker [...] Informa tion Online using Patient Portal and [employer] Apps Indication:Non-smoker Start:20-Nov-2020 Instruction Type:Patient Education Patient [...] tion Online using Patient Portal and [employer]rd [employer] Apps Indication:Non-smoker Start:04-Dec-2020 Instruction Type:Patient Education How to Access Health Informa tion Online using Patient Portal and [employer]rd [employer] Apps Indication:Non-smoker Start:20-Nov-2020 Instruction Type:Patient Education Patient [...] tion Online using Patient Portal and [employer]rd [employer] Apps Indication:Non-smoker Start:04-Dec-2020 Instruction Type:Patient Education How to Access Health Informa tion Online using Patient Portal and [employer]rd [employer] Apps Indication:Non-smoker Start:20-Nov-2020 Instruction Type:Patient Education Patient [...] tion Online using Patient Portal and [employer]rd [employer] Apps Indication:BMI 34.0-34.9,adult Start:11-Dec-2020 Instruction Type:Patient Education Patient Instructions Indication:Non-smoker Start:04-Dec-2020 Instruction Type:Provider Instructions for Treatment How to Access Health Informa tion Online using Patient Portal and [employer]rd [employer] Apps Indication:Non-smoker Start:04-Dec-2020 Instruction Type:Patient Education How to Access Health Informa tion Online using Patient Portal and 3rd [employer] Apps Indication:Non-smoker Start:20-Nov-2020 Instruction Type:Patient Education Patient [...] tion Online using Patient Portal and [employer]rd [employer] Apps Indication:BMI 34.0-34.9,adult Start:11-Dec-2020 Instruction Type:Patient Education Patient Instructions Indication:Non-smoker Start:04-Dec-2020 Instruction Type:Provider Instructions for Treatment How to Access Health Informa tion Online using Patient Portal and [employer]rd [employer] Apps Indication:Non-smoker Start:04-Dec-2020 Instruction Type:Patient Education How to Access Health Informa tion Online using Patient Portal and [employer]rd [employer] Apps Indication:Non-smoker Start:20-Nov-2020 Instruction Type:Patient Education Patient [...] SWELLING August 19, 2024 8:36am [address]S - COPY PCP ON [facility] Sofiya CORNELL September 05, 2024 12:33pm RIGHT HIP [...] HIP November 04, 2024 3:18 pm room November 04, 2024 3:29 pm PAIN- COPY PCP November 22, 2024 2:4 0pm gi bleed January 12, 2025 2:04p m Left upper quadrant pain January 16, 2025 11:12am Chief Complaint Admit Date RIGHT HIP November 04, 2024 3:18 pm room November 04, 2024 3:29 pm PAIN- COPY [...] COPY PCP April 14, 2025 10 :49am Chief Complaint Admit Date gi bleed January [...] COPY PCP April 14, 2025 10 :49am RECURRENT C DIFF April 27, 2025 2: 13pm Reason for Visit Admit Date Acute pain of left hip March 10, 2025 11 :04am Bilateral lower extremity edema March 11:02am Abdominal pain April 27, 2025 2: 13pm Acidosis, lactic April 27, 2025 2: 13pm Acute kidney injury April 27, 2025 2: 13pm C. difficile colitis April 27, 2025 2 :13pm Colitis April 27, 2025 2: 13pm Diarrhea April 27, 2025 2: 13pm Chief Complaint Admit Date gi bleed January [...] COPY PCP April 14, 2025 10 :49am RECURRENT C DIFF April 27, 2025 2: 13pm RECURRENT C DIFF April 28, 2025 1: 08pm Advance Directives No Advanced Directives Records Found Advance Directive Response Recorded Date/ Time Advance Directives No August 12:30pm Living Will No July 15 021 11:56am Power of Production Team Leader No July 15, 2021 11:56am Advance Directive Response Recorded Date/ Time Advance Directives No August 11:30am Living Will No July 15 10:56am Power of Production Team Leader No July 15, 2021 10:56am Advance Directive Response Recorded Date/ Time Advance Directives No August 12:30pm Living Will No November 21, 2022 1:18am Power of Production Team Leader No November 21 1:18am Advance Directive Response Recorded Date/ Time Advance Directives No August 12:30pm Living Will No April 18 1:25pm Power of Production Team Leader No April 18, 2 023 1:25pm Advance Directive Response Recorded Date/ Time Advance Directives No August 12:30pm Living Will No June 03, 2023 4:55pm Power of Production Team Leader No May 4:55pm Advance Directive Response Recorded Date/ Time Advance Directives No August 11:30am Living Will No June 03, 2023 3:55pm Power of Production Team Leader No May 3:55pm Advance Directive Response Recorded Date/ Time Living Will No April 24 10:38am Do you have a Healthcare Power of Production Team Leader? No April 24, 2024 10:38am Living Will No July 26 11:16am Do you have a Healthcare Power of Production Team Leader? No July 26, 2024 11:16am Living Will No August 06 4:07pm Do you have a Healthcare Power of Production Team Leader? No August 06, 2024 4:07pm Advance Directives No August 12:30pm Advance Directive Response Recorded Date/ Time Do you have a Healthcare Power of Production Team Leader? No January 12, 2025 2:18pm Advance Directives No August 12:30pm Advance Directive Response Recorded Date/ Time Do you have a Healthcare Power of Production Team Leader? No January 12, 2025 2:18pm Do you have a Healthcare Power of Production Team Leader? Yes April 02, 2025 2:34pm Advance Directives No August 12:30pm Advance Directive Response Recorded Date/ Time Do you have a Healthcare Power of Production Team Leader? No January 12, 2025 2:18pm Do you have a Healthcare Power of Production Team Leader? Yes April 02, 2025 2:34pm Do you have a Healthcare Power of Production Team Leader? No April 27, 2025 12:30pm Advance Directives No August 12:30pm Advance Directive Response Recorded Date/ Time Do you have a Healthcare Power of Production Team Leader? No January 12, 2025 2:18pm Do you have a Healthcare Power of Production Team Leader? Yes April 02, 2025 2:34pm Do you have a Healthcare Power of Production Team Leader? No April 27, 2025 4:03pm Advance Directives No August 12:30pm Summary Purpose [...] Primary Care Provider Active Dr. Regi Bunch DO Emergency Provider Active Team Status: Active [...] Active St art: August 01, 2024 Dr. Alvarez Ohara DO Attending Provider [...] August 24, 2024 Dr. Young Ng MD Admit Provider Active Star t: August [...] April 14, 2025 End: April 14, 2025 Team Status: Active Member Role/Relationship Status Dates Dr. Patt Jones DO Primary Care Provider Active Start: April 27, 2025 Dr. Abdiel Briones , DO Emergency Provider Active Start: April 27, 2025 Dr. Anand Contreras , DO Admit Provider Active Start: April 27, 2025 Dr. Anand Contreras , Attending Provider Active Start: April 27, 2025 Dr. Anand Contreras , Other Provider Active Start: April 27, 2025 Team Status: Inactive Member Role/Relationship Status Dates Dr. Patt Jones DO Primary Care Provider Active Start: April 27, 2025 End: April 28, 2025 Dr. Abdiel Briones , Emergency Provider Active Start: April 27, 2025 End: April 28, 2025 Dr. Anand Contreras , DO Admit Provider Active Start: April 27, 2025 End: April 28, 2025 Dr. Anand Contreras , DO Other Provider Active Start: April 27, 2025 End: April 28, 2025 Dr. Jonathan Denney MD Attending Provider Active Start: April 27, 2025 End: April 28, 2025 Team Status: Active Member Role/Relationship Status Dates Dr. Patt Jones DO Primary Care Provider Active Start: April 28, 2025 Dr. Abdiel Briones DO Emergency Provider Active Start: April 28, 2025 Dr. Anand Contreras , Admit Provider Active Start: April 28, 2025 Dr. Anand Contreras DO Other Provider Active Start: April 28, 2025 Dr. Jonathan Denney MD Attending Provider Active Start: April 28, 2025 Dr. Jonathan Denney MD Other Provider Active Start: April 28, 2025 INFORMATION SOURCE (unrecogn ized section and content) DATE CREATED AUTHOR 11/21/2022 [facility] DATE CREATED AUTHOR AUTHOR'S ORGANIZ ATION 05/03/2025 [facility] FOR RECORDS PERTAINING TO PATIENTS WHO [...] BE BASED ON THE PRIMARY CLINICAL RECORDS. [employer] provides no warranty or guarantee of the accuracy or completeness of information in this document.
--- NOTE | 2025-05-05 16:40 | RAD_ITS ---
PROCEDURE: HUMERUS MIN 2 VIEWS 05/05/2025 REASON FOR EXAM: FALL AND PAIN TECHNIQUE: Procedure Code: RADHUM Modality: DX Procedure: HUMERUS MIN 2 VIEWS COMPARISON: none FINDINGS: Proximal humeral neck deformity likely chronic injury however nondisplaced fracture is not entirely excluded. Consider CT if there is continued concern. Mild scattered degenerative changes. Minimal diffuse soft tissue edema. No radiographic foreign body. RAD/Humerus min 2 Views IMPRESSION: Proximal humeral neck deformity likely chronic injury however nondisplaced frac ture is not entirely excluded. Consider CT if there is continued concern. Minimal diffuse soft tissue edema. No radiographic foreign body. Reading Location: [id number]
--- NOTE | 2025-05-05 16:40 | RAD_ITS ---
PROCEDURE: RIGHT SHOULDER MIN 2 VIEWS 05/05/2025 REASON FOR EXAM: FALL AND PAIN TECHNIQUE: Procedure Code: RADSH Modality: DX Procedure: SHOULDER MIN 2 VIEWS Laterality: Right COMPARISON: None. FINDINGS: No evidence of acute fracture or dislocation. The right glenohumeral and AC joints are intact, with moderate degenerative arthrosis characterized by joint space narrowing, subchondral sclerosis and cyst formation, and mild marginal osteophytosis. Multilevel degenerative changes of the visualized spine. No appreciable soft tissue swelling or unusual mineralization. RAD/Shoulder min 2 Views IMPRESSION: No evidence of acute fracture or dislocation. Moderate degenerative arthrosis of the right glenohumeral and AC joints. Reading Location: [id number]
[2025-05-05 18:25] VITALS: BP 139/78; PULSE 64; RESP 18; TEMP 37.1; O2SAT 99
== END 2025-05-05 18:46 | disposition home or self-care (01) ==
PROVIDERS: Emergency Provider Emergency Medicine; PCP Internal Medicine; Visit Provider Emergency Medicine
DX: M25.511 Pain in right shoulder (principal); M19.011 Primary osteoarthritis, right shoulder; Z90.710 Acquired absence of both cervix and uterus; W18.30XA Fall on same level, unspecified, initial encounter; Y93.89 Activity, other specified; Z96.641 Presence of right artificial hip joint; Z90.49 Acquired absence of other specified parts of digestive tract
CPT/HCPCS: 73030; 73060; 99283; A4216

== ENCOUNTER → 2025-05-07 | Outpatient (CLI) | payer MEDICARE, SELFPAY ==
--- NOTE | 2025-05-07 15:15 | CT_ITS ---
PROCEDURE: EXTREMITY UPPER WITHOUT CONTRA N/A REASON FOR EXAM: SHOULDER INJ, AGE INDETERMINATE PROX HUMERUS FX TECHNIQUE: Procedure Code: CTEUWO Modality: CT Procedure: EXTREMITY UPPER WITHOUT CONTRA Coronal and Sagittal reconstruction series were provided. One or more dose reduction techniques were used (e.g., Automated exposure control, adjustment of the mA and/or kV according to patient size, use of iterative reconstruction technique. RADIATION DOSE SUMMARY: CTDlvol: 26.3 mGy DLP: 6666 MGycm COMPARISON: Recent radiographs. FINDINGS: Bones: Slightly foreshortened/impacted right humeral neck fracture without callus formation. Hemarthrosis noted. The humeral head is within the glenoid fossa. Some fracture noted of the left humeral head. Incidental note of made of old sternal fracture. Additionally numerous compression fractures thoracic spine. Joints: Moderate hemarthrosis. Soft Tissues: Calcified granuloma. Imaged right hemithorax and remainder of imaged chest negative. CT/Extremity Upper without Contra IMPRESSION: Impacted nondisplaced right humeral neck fracture without callus formation Reading Location: [place] [id number]
--- NOTE | 2025-05-07 15:22 | RAD_ITS ---
PROCEDURE: WRIST MIN 3 VIEWS 05/07/2025 REASON FOR EXAM: WRIST PAIN AFTER FALL TECHNIQUE: Procedure Code: RADWR Modality: DX Procedure: WRIST MIN 3 VIEWS Laterality: Right wrist COMPARISON: None FINDINGS: Bones: No visible fracture. No suspicious bone lesion. Joints: Degenerative changes at the 1st carpometacarpal joint in keeping with osteoarthritis. Soft tissues: Soft tissues are unremarkable. Other: RAD/Wrist min 3 Views IMPRESSION: NO ACUTE FRACTURE OR DISLOCATION. Reading Location: [place] [id number]
== END | disposition home or self-care (01) ==
PROVIDERS: PCP Internal Medicine; Visit Provider Nurse Practitioner Family
DX: M19.90 Unspecified osteoarthritis, unspecified site (principal); S49.91XA Unspecified injury of right shoulder and upper arm, initial encounter
CPT/HCPCS: 73110; 73200

== ENCOUNTER → 2025-05-19 | Outpatient (CLI) | payer MEDICARE, SELFPAY ==
[2025-05-19 16:13] LABS: Anion Gap 11 (5-15); BUN 12 mg/dL (4-19); BUN/Creat Ratio 14.3 RATIO (10-20); Calcium,Total 9.5 mg/dL (7.6-11.0); Carbon Dioxide 25.6 mmol/L (21.0-32.0); Chloride 101 mmol/L (98-108); Glucose 113 mg/dL (70-99); Potassium 4.2 mmol/L (3.3-5.1)
== END | disposition home or self-care (01) ==
LOC: MTLAB 13:19
PROVIDERS: PCP Internal Medicine; Referring Provider Internal Medicine; Visit Provider Internal Medicine
DX: N17.9 Acute kidney failure, unspecified (principal); R79.89 Other specified abnormal findings of blood chemistry
CPT/HCPCS: 36415; 80048; 83605

== ENCOUNTER → 2025-05-22 | Outpatient (CLI) | payer MEDICARE, SELFPAY ==
[2025-05-22 12:31] LABS: Hematocrit 37.2 % (37-47); Hemoglobin 11.9 g/dL (12.0-15.0); Immature Granulocytes Count 0.010 X10^3/uL (0.0-0.0); Mean Corp Hgb Conc 32.0 g/dL (32-36); Mean Corpuscular Volume 90.5 fL (81-99); Mean Platelet Vol. 9.4 fl (6.2-12.0); NRBC Flagged by Analyzer 0 % (0-5); Platelet Count 315 K/mm3 (150-450); RBC Distribution Width CV 14.6 % (11.6-14.6); RBC Distribution Width SD 48.5 fl (35.1-43.9); Red Blood Count 4.11 M/mm3 (4.2-5.4); White Blood Count 4.5 K/mm3 (4.4-11.0)
[2025-05-22 13:16] LABS: AST(SGOT) 23 U/L (<=31); Alanine Aminotransfer ALT/SGPT 8 U/L (<=34); Albumin, Serum 3.8 g/dL (3.4-4.8); Alkaline Phosphatase 114 U/L (35-104); Anion Gap 15 (5-15); BUN 12 mg/dL (4-19); BUN/Creat Ratio 14.4 RATIO (10-20); Calcium,Total 9.7 mg/dL (7.6-11.0); Carbon Dioxide 20.8 mmol/L (21.0-32.0); Chloride 102 mmol/L (98-108); Cholesterol 183 mg/dL (<=200); Globulin 3.2 g/dL (2.2-4.2); Glucose 94 mg/dL (70-99); Low Density Lipoprotein Calc. 103 mg/dL; Potassium 4.0 mmol/L (3.3-5.1); Triglycerides 62 mg/dL; Very Low Density Lipoprotein 12 mg/dL (5-40); Vitamin D,25 Hydroxy 68.3 ng/mL (30-100); cholesterol:hdl ratio screen 2.71
== END | disposition home or self-care (01) ==
LOC: MTLAB 09:26
PROVIDERS: PCP Internal Medicine; Referring Provider Internal Medicine; Visit Provider Internal Medicine
DX: R73.09 Other abnormal glucose (principal); E78.00 Pure hypercholesterolemia, unspecified; E55.9 Vitamin D deficiency, unspecified
CPT/HCPCS: 36415; 80053; 80061; 82306; 83036; 85025

== ENCOUNTER → 2025-06-06 | Outpatient (CLI) | payer MEDICARE, SELFPAY ==
[2025-06-06 14:58] LABS: Hematocrit 36.3 % (37-47); Hemoglobin 12.0 g/dL (12.0-15.0); Immature Granulocytes Count 0.010 X10^3/uL (0.0-0.0); Mean Corp Hgb Conc 33.1 g/dL (32-36); Mean Corpuscular Volume 89.0 fL (81-99); Mean Platelet Vol. 9.2 fl (6.2-12.0); NRBC Flagged by Analyzer 0 % (0-5); Platelet Count 247 K/mm3 (150-450); RBC Distribution Width CV 15.3 % (11.6-14.6); RBC Distribution Width SD 50.1 fl (35.1-43.9); Red Blood Count 4.08 M/mm3 (4.2-5.4); White Blood Count 4.2 K/mm3 (4.4-11.0)
[2025-06-06 15:34] LABS: AST(SGOT) 18 U/L (<=31); Alanine Aminotransfer ALT/SGPT 11 U/L (<=34); Albumin, Serum 4.2 g/dL (3.4-4.8); Alkaline Phosphatase 97 U/L (35-104); Anion Gap 12 (5-15); BUN 11 mg/dL (4-19); BUN/Creat Ratio 14.7 RATIO (10-20); Calcium,Total 9.5 mg/dL (7.6-11.0); Carbon Dioxide 24.9 mmol/L (21.0-32.0); Chloride 101 mmol/L (98-108); Globulin 2.7 g/dL (2.2-4.2); Glucose 95 mg/dL (70-99); Potassium 4.0 mmol/L (3.3-5.1)
== END | disposition home or self-care (01) ==
LOC: MTLAB 12:43
PROVIDERS: PCP Internal Medicine; Referring Provider Internal Medicine Rheumatology; Visit Provider Internal Medicine Rheumatology
DX: M06.00 Rheumatoid arthritis without rheumatoid factor, unspecified site (principal); Z79.899 Other long term (current) drug therapy; M79.7 Fibromyalgia
CPT/HCPCS: 36415; 80053; 85025

== ENCOUNTER → 2025-08-15 | Outpatient (CLI) | payer MEDICARE, SELFPAY ==
[2025-08-15 17:39] LABS: Hematocrit 36.8 % (37-47); Hemoglobin 12.0 g/dL (12.0-15.0); Immature Granulocytes Count 0.120 X10^3/uL (0.0-0.0); Mean Corp Hgb Conc 32.6 g/dL (32-36); Mean Corpuscular Volume 91.3 fL (81-99); Mean Platelet Vol. 8.6 fl (6.2-12.0); NRBC Flagged by Analyzer 0 % (0-5); Platelet Count 275 K/mm3 (150-450); RBC Distribution Width CV 15.4 % (11.6-14.6); RBC Distribution Width SD 50.8 fl (35.1-43.9); Red Blood Count 4.03 M/mm3 (4.2-5.4); White Blood Count 7.2 K/mm3 (4.4-11.0)
[2025-08-15 17:50] LABS: AST(SGOT) 26 U/L (<=31); Alanine Aminotransfer ALT/SGPT 22 U/L (<=34); Albumin, Serum 4.0 g/dL (3.4-4.8); Alkaline Phosphatase 88 U/L (35-104); Anion Gap 10 (5-15); BUN 15 mg/dL (4-19); BUN/Creat Ratio 16.2 RATIO (10-20); Calcium,Total 9.4 mg/dL (7.6-11.0); Carbon Dioxide 27.7 mmol/L (21.0-32.0); Chloride 101 mmol/L (98-108); Globulin 2.5 g/dL (2.2-4.2); Glucose 87 mg/dL (70-99); Potassium 3.8 mmol/L (3.3-5.1)
== END | disposition home or self-care (01) ==
LOC: MTLAB 15:39
PROVIDERS: PCP Internal Medicine; Referring Provider Internal Medicine Rheumatology; Visit Provider Internal Medicine Rheumatology
DX: M06.00 Rheumatoid arthritis without rheumatoid factor, unspecified site (principal); Z79.899 Other long term (current) drug therapy
CPT/HCPCS: 36415; 80053; 85025